=== PATIENT | female | born 1930 | race Caucasian/White ===

== ENCOUNTER 2017-02-26 15:39 | Inpatient (IN) | payer MEDICARE, MEDICAID ==
[~2017-02-26] VITALS: Ht 152.4 cm; Wt 44.3 kg
[~2017-02-26 15:39] MED LIST: ACET-2321 PO; ALLO300T2 PO; ATOR20TA59 PO; CLOP75TA PO; DULO60CA56 PO; FOLI1TAB15 PO; FURO40TA70 PO; LORA0.5T86 PO; MULT-806 PO; PANT40TA PO; PROP40TA7 PO
--- NOTE | 2017-02-26 16:00 | NUR ---
Admit Received patient as direct admit via EMS. Verbal report received by EMS. Patient transferred from cart to bed with total staff assist. Patient daughter present and provides health history. Patient has a history of dementia and is not very cooperative with staff. Patient's daughter informed physician will be in to see patient when available.
--- OUTSIDE RECORDS SUMMARY | 2017-02-26 16:02 | XMS REPORT ---
Author Author GENERATED, SYSTEM Organization Unknown Address Unknown Phone Unavailable Care Team Providers Care Van Loader Name Role Phone MD CORTEZ, [facility] [phone] Reason For Visit Reason for Visit from 07/29/2016 5:54 AM:* Pt Stated Reason for Adm : symptomatic anemia Chief Complaint SYMPTOMATIC ANEMIA, CP Social History Social History from 08/01/2016 11:47 AM:* Tobacco Use? : Never Smoker Social History from 07/29/2016 5:54 AM:* Tobacco Use? : Never Smoker Functional Status Functional Status from 08/01/2016 11:39 AM:* Oriented To : Person,Place,Event Functional Status from 08/01/2016 10:01 AM:* Oriented To : Person,Place,Time Functional Status from 08/01/2016 9:32 AM:* LOC : Alert * Oriented To : Person,Place,Time,Event * Weight Bearing Status : Full * Assist Level : Partial * # Assists : 1 Functional Status from 07/31/2016 9:23 PM:* LOC : Confused * Oriented To : Person * Weight Bearing Status : Full * Assist Level : Partial * # Assists : 1 Functional Status from 07/31/2016 1:00 PM:* # Assists : 1 Functional Status from 07/31/2016 8:04 AM:* LOC : Alert * Oriented To : Person * Weight Bearing Status : Full * Assist Level : Partial * # Assists : 1 Functional Status from 07/31/2016 12:01 AM:* LOC : Confused * Oriented To : Person * Weight Bearing Status : Full * Assist Level : Partial * # Assists : 1 Functional Status from 07/30/2016 11:30 AM:* LOC : Confused * Oriented To : Person,Place * Weight Bearing Status : Full * Assist Level : Partial * # Assists : 1 Functional Status from 07/30/2016 11:00 AM:* LOC : Drowsy Functional Status from 07/30/2016 10:00 AM:* LOC : Drowsy Functional Status from 07/29/2016 7:53 PM:* LOC : Alert * Oriented To : Person,Place,Time,Event * Weight Bearing Status : Full * Assist Level : Partial * # Assists : 1 Functional Status from 07/29/2016 3:30 PM:* # Assists : 1 Functional Status from 07/29/2016 11:40 AM:* # Assists : 1 Functional Status from 07/29/2016 9:11 AM:* LOC : Alert * Oriented To : Person,Place,Event * Weight Bearing Status : Full * Assist Level : Partial * # Assists : 1 Functional Status from 07/29/2016 5:54 AM:* LOC : Alert * Oriented To : Person,Place,Time * Weight Bearing Status : Full * Assist Level : Partial * # Assists : 1 Vital Signs Hospital Vital Signs from 08/01/2016 4:35 PM:* Height : 5/1 ft,in * Temperature : 96.5 F * Pulse : 62 * Respirations : 19 * BP : 135/58 Hospital Vital Signs from 08/01/2016 4:20 PM:* Height : 5/1 ft,in * Temperature : 96.5 F * Pulse : 95 * Respirations : 19 * BP : 180/104 Hospital Vital Signs from 08/01/2016 4:05 PM:* Height : 5/1 ft,in * Temperature : 96.1 F * Pulse : 60 * Respirations : 20 * BP : 206/88 Hospital Vital Signs from 08/01/2016 3:50 PM:* Height : 5/1 ft,in * Temperature : 97.7 F * Pulse : 60 * Respirations : 18 * BP : 120/58 Hospital Vital Signs from 08/01/2016 3:35 PM:* Height : 5/1 ft,in * Temperature : 97.5 F * Pulse : 60 * Respirations : 18 * BP : 119/56 Hospital Vital Signs from 08/01/2016 3:20 PM:* Height : 5/1 ft,in * Temperature : 97.2 F * Pulse : 60 * Respirations : 18 * BP : 115/56 Hospital Vital Signs from 08/01/2016 3:04 PM:* Height : 5/1 ft,in * Temperature : 98.1 F * Pulse : 60 * Respirations : 18 * BP : 133/59 Hospital Vital Signs from 08/01/2016 2:50 PM:* Height : 5/1 ft,in * Temperature : 97.6 F * Pulse : 60 * Respirations : 18 * BP : 135/63 Hospital Vital Signs from 08/01/2016 2:35 PM:* Height : 5/1 ft,in * Temperature : 97.5 F * Pulse : 60 * Respirations : 18 * BP : 118/59 Hospital Vital Signs from 08/01/2016 2:20 PM:* Height : 5/1 ft,in * Temperature : 97.9 F * Pulse : 60 * Respirations : 18 * BP : 131/60 Hospital Vital Signs from 08/01/2016 2:05 PM:* Height : 5/1 ft,in * Temperature : 97.3 F * Pulse : 60 * Respirations : 18 * BP : 122/76 Hospital Vital Signs from 08/01/2016 1:50 PM:* Height : 5/1 ft,in * Temperature : 97.0 F * Pulse : 60 * Respirations : 18 * BP : 135/63 Hospital Vital Signs from 08/01/2016 9:45 AM:* Height : 5/1 ft,in * BP : 135/67 Hospital Vital Signs from 08/01/2016 9:34 AM:* Pulse : 65 Hospital Vital Signs from 08/01/2016 9:32 AM:* Heart Rate : 65 Hospital Vital Signs from 08/01/2016 7:27 AM:* Height : 5/1 ft,in * Temperature : 98.1 F * Pulse : 60 * Respirations : 20 * BP : 139/62 Hospital Vital Signs from 08/01/2016 2:43 AM:* Height : 5/1 ft,in * Temperature : 96.7 F * Pulse : 62 * Respirations : 20 * BP : 128/58 Hospital Vital Signs from 08/01/2016 1:09 AM:* Weight : 52.7/ kg * Height : 5/1 ft,in Hospital Vital Signs from 08/01/2016 12:25 AM:* Height : 5/1 ft,in * Temperature : 96.9 F * Pulse : 60 * Respirations : 20 * BP : 131/58 Hospital Vital Signs from 07/31/2016 9:23 PM:* Heart Rate : 59 Hospital Vital Signs from 07/31/2016 7:08 PM:* Height : 5/1 ft,in * Temperature : 97.7 F * Pulse : 60 * Respirations : 20 * BP : 119/56 Hospital Vital Signs from 07/31/2016 2:43 PM:* Height : 5/1 ft,in * Temperature : 98.5 F * Pulse : 62 * Respirations : 18 * BP : 106/56 Hospital Vital Signs from 07/31/2016 10:39 AM:* Height : 5/1 ft,in * Temperature : 99.0 F * Pulse : 66 * Respirations : 18 * BP : 114/63 Hospital Vital Signs from 07/31/2016 9:17 AM:* Height : 5/1 ft,in Hospital Vital Signs from 07/31/2016 8:30 AM:* Pulse : 68 Hospital Vital Signs from 07/31/2016 7:18 AM:* Height : 5/1 ft,in * Temperature : 95.7 F * Pulse : 66 * Respirations : 18 * BP : 105/59 Hospital Vital Signs from 07/31/2016 2:16 AM:* Weight : 52.6/ kg * Height : 5/1 ft,in * Temperature : 96.6 F * Pulse : 72 * Respirations : 20 * BP : 138/70 Hospital Vital Signs from 07/31/2016 12:01 AM:* Heart Rate : 59 Hospital Vital Signs from 07/30/2016 6:36 PM:* Height : 5/1 ft,in * Temperature : 96.9 F * Pulse : 73 * Respirations : 20 * BP : 149/69 Hospital Vital Signs from 07/30/2016 6:19 PM:* Height : 5/1 ft,in * Pulse : 65 * Respirations : 20 * BP : 151/72 Hospital Vital Signs from 07/30/2016 4:02 PM:* Pulse : 62 [facility] Vital Signs from 07/30/2016 3:51 PM:* Height : 5/1 ft,in * Temperature : 97.4 F * Pulse : 65 * Respirations : 20 * BP : 147/103 [facility] Vital Signs from 07/30/2016 1:55 PM:* Height : 5/1 ft,in * Pulse : 64 * Respirations : 20 * BP : 189/79 [facility] Vital Signs from 07/30/2016 12:55 PM:* Height : 5/1 ft,in * Pulse : 62 * Respirations : 20 * BP : 141/66 [facility] Vital Signs from 07/30/2016 12:25 PM:* Height : 5/1 ft,in * Pulse : 62 * Respirations : 20 * BP : 122/80 Hospital Vital Signs from 07/30/2016 11:55 AM:* Height : 5/1 ft,in * Pulse : 61 * Respirations : 20 * BP : 95/55 Hospital Vital Signs from 07/30/2016 11:40 AM:* Height : 5/1 ft,in * Pulse : 60 * Respirations : 20 * BP : 131/63 Hospital Vital Signs from 07/30/2016 11:30 AM:* Heart Rate : 64 Hospital Vital Signs from 07/30/2016 11:25 AM:* Height : 5/1 ft,in * Pulse : 60 * Respirations : 20 * BP : 147/67 Hospital Vital Signs from 07/30/2016 11:10 AM:* Height : 5/1 ft,in * Temperature : 98.0 F * Pulse : 61 * Respirations : 200 * BP : 166/71 Hospital Vital Signs from 07/30/2016 10:50 AM:* Heart Rate : 59 * Resp Rate : 20 * Systolic BP (mmHg) : 146 * Diastolic BP (mmHg) : 76 * Mean BP (mmHg) : 86 * O2 Saturation (%) : 94 Hospital Vital Signs from 07/30/2016 10:45 AM:* Heart Rate : 62 * Resp Rate : 12 * Systolic BP (mmHg) : 169 * Diastolic BP (mmHg) : 90 * Mean BP (mmHg) : 131 * O2 Saturation (%) : 95 Hospital Vital Signs from 07/30/2016 10:40 AM:* Temp : 98.2 * Heart Rate : 60 * Resp Rate : 25 * Systolic BP (mmHg) : 177 * Diastolic BP (mmHg) : 77 * Mean BP (mmHg) : 124 * O2 Saturation (%) : 95 Hospital Vital Signs from 07/30/2016 10:35 AM:* Heart Rate : 72 * Resp Rate : 18 * Systolic BP (mmHg) : 195 * Diastolic BP (mmHg) : 90 * Mean BP (mmHg) : 135 * O2 Saturation (%) : 94 [facility] Vital Signs from 07/30/2016 10:30 AM:* Heart Rate : 65 * Resp Rate : 19 * Systolic BP (mmHg) : 198 * Diastolic BP (mmHg) : 94 * Mean BP (mmHg) : 159 * O2 Saturation (%) : 93 Hospital Vital Signs from 07/30/2016 10:25 AM:* Heart Rate : 62 * Resp Rate : 21 * Systolic BP (mmHg) : 192 * Diastolic BP (mmHg) : 93 * Mean BP (mmHg) : 129 * O2 Saturation (%) : 96 [facility] Vital Signs from 07/30/2016 10:20 AM:* Temp : 98.1 * Heart Rate : 59 * Resp Rate : 22 * Systolic BP (mmHg) : 185 * Diastolic BP (mmHg) : 91 * Mean BP (mmHg) : 119 * O2 Saturation (%) : 96 Hospital Vital Signs from 07/30/2016 10:15 AM:* Heart Rate : 62 * Resp Rate : 17 * Systolic BP (mmHg) : 179 * Diastolic BP (mmHg) : 80 * Mean BP (mmHg) : 121 * O2 Saturation (%) : 98 [facility] Vital Signs from 07/30/2016 10:10 AM:* Heart Rate : 59 * Resp Rate : 22 * Systolic BP (mmHg) : 133 * Diastolic BP (mmHg) : 66 * Mean BP (mmHg) : 92 * O2 Saturation (%) : 99 [facility] Vital Signs from 07/30/2016 10:05 AM:* Heart Rate : 59 * Resp Rate : 15 * Systolic BP (mmHg) : 126 * Diastolic BP (mmHg) : 62 * Mean BP (mmHg) : 86 * O2 Saturation (%) : 99 [facility] Vital Signs from 07/30/2016 10:00 AM:* Temp : 99 * Heart Rate : 63 * Resp Rate : 15 * Systolic BP (mmHg) : 125 * Diastolic BP (mmHg) : 61 * Mean BP (mmHg) : 87 * O2 Saturation (%) : 99 [facility] Vital Signs from 07/30/2016 7:05 AM:* Height : 5/1 ft,in * Temperature : 98.2 F * Pulse : 60 * Respirations : 20 * BP : 183/82 Hospital Vital Signs from 07/30/2016 3:32 AM:* Weight : 53.0/ kg * Height : 5/1 ft,in * Temperature : 97.8 F * Pulse : 62 * Respirations : 20 * BP : 172/76 [facility] Vital Signs from 07/29/2016 11:11 PM:* Height : 5/1 ft,in * Temperature : 99.0 F * Pulse : 60 * Respirations : 20 * BP : 156/67 Hospital Vital Signs from 07/29/2016 7:23 PM:* Height : 5/1 ft,in * Temperature : 98.1 F * Pulse : 63 * Respirations : 20 * BP : 140/58 [facility] Vital Signs from 07/29/2016 2:30 PM:* Height : 5/1 ft,in * Temperature : 96.7 F * Pulse : 60 * Respirations : 20 * BP : 154/67 [facility] Vital Signs from 07/29/2016 1:40 PM:* Height : 5/1 ft,in * Temperature : 98.0 F * Pulse : 60 * Respirations : 20 * BP : 159/70 [facility] Vital Signs from 07/29/2016 12:40 PM:* Height : 5/1 ft,in * Temperature : 98.9 F * Pulse : 66 * Respirations : 20 * BP : 130/60 [facility] Vital Signs from 07/29/2016 11:40 AM:* Height : 5/1 ft,in * Temperature : 97.1 F * Pulse : 60 * Respirations : 20 * BP : 184/82 [facility] Vital Signs from 07/29/2016 11:20 AM:* Height : 5/1 ft,in * Temperature : 96.8 F * Pulse : 60 * Respirations : 20 * BP : 177/77 Hospital Vital Signs from 07/29/2016 11:06 AM:* Height : 5/1 ft,in * Temperature : 97.8 F * Pulse : 60 * Respirations : 20 * BP : 192/84 Hospital Vital Signs from 07/29/2016 9:30 AM:* Height : 5/1 ft,in * Temperature : 96.9 F * Pulse : 60 * Respirations : 20 * BP : 186/96 [facility] Vital Signs from 07/29/2016 9:21 AM:* Height : 5/1 ft,in Hospital Vital Signs from 07/29/2016 9:11 AM:* Pulse : 65 Hospital Vital Signs from 07/29/2016 8:40 AM:* Height : 5/1 ft,in * Temperature : 97.3 F * Pulse : 60 * Respirations : 20 * BP : 174/107 [facility] Vital Signs from 07/29/2016 7:40 AM:* Height : 5/1 ft,in * Temperature : 97.9 F * Pulse : 61 * Respirations : 20 * BP : 171/73 [facility] Vital Signs from 07/29/2016 7:18 AM:* Height : 5/1 ft,in * Temperature : 97.9 F * Pulse : 68 * Respirations : 20 * BP : 134/63 Hospital Vital Signs from 07/29/2016 7:13 AM:* Pulse : 60 Hospital Vital Signs from 07/29/2016 6:38 AM:* Height : 5/1 ft,in * Temperature : 97.9 F * Pulse : 60 * Respirations : 18 * BP : 171/73 [facility] Vital Signs from 07/29/2016 6:25 AM:* Height : 5/1 ft,in * Temperature : 98.0 F * Pulse : 60 * Respirations : 18 * BP : 174/72 Hospital Vital Signs from 07/29/2016 6:03 AM:* Height : 5/1 ft,in * Temperature : 97.4 F * Pulse : 55 * Respirations : 18 * BP : 206/82 Hospital Vital Signs from 07/29/2016 5:54 AM:* Weight : 54.5/ kg * Height : 5/1 ft,in Results Chemistry from 08/01/2016 8:42 AMSODIUM 147 MMOL/L H (136-145 MMOL/L) POTASSIUM 4.5 MMOL/L (3.5-5.1 MMOL/L) CHLORIDE 108 MMOL/L H (98-107 MMOL/L) TCO2 36.1 MMOL/L H (21.0-32.0 MMOL/L) *ANION GAP 2.9 MMOL/L L (8.0-16.0 MMOL/L) BUN 26 MG/DL H (7-18 MG/DL) CREATININE 1.23 MG/DL H (0.55-1.02 MG/DL) *BUN/CREATININE RATIO 21.1 H (9.1-17.0 ) GLUCOSE 106 MG/DL H (65-99 MG/DL) *GFR EST NON AFR [place] 40 ML/MIN *GFR EST AFR AMER 46 ML/MIN CALCIUM 8.4 MG/DL L (8.5-10.1 MG/DL) ALBUMIN 2.6 GM/DL L (3.4-5.0 GM/DL) MAGNESIUM 1.5 MG/DL L (1.8-2.4 MG/DL) PHOSPHORUS 3.2 MG/DL (2.6-4.7 MG/DL) Hematology from 08/01/2016 8:42 AMWBC 12.1 X10e3/UL H (3.6-11.2 X10e3/UL) WBC CORRECTED 11.3 X10e3/UL H (3.6-11.2 X10e3/UL) RBC 3.13 X10e6/UL L (3.63-4.92 X10e6/UL) HEMOGLOBIN 9.6 G/DL L (11.0-14.3 G/DL) HEMATOCRIT 30.8 % L (31.2-41.9 %) *MCV 98.4 FL H (79.0-98.0 FL) *MCH 30.6 PG (27.0-33.0 PG) *MCHC 31.1 G/DL L (32.0-36.0 G/DL) *RDW 25.9 % H (12.3-17.0 %) *RDWSD 84.4 H (37.1-47.8 ) PLATELET 153 X10e3/UL L (159-386 X10e3/UL) *MPV 10.7 FL H (7.4-10.4 FL) *MANUAL DIFF PERFORMED SEGS 83.0 % *BANDS 3.0 % *LYMPHOCYTES 7.0 % *MONOCYTES 3.0 % *EOSINOPHILS 4.0 % *BASOPHILS 0.0 % *ABSOLUTE NEUTROPHILS 10.41 X10e3/UL H (1.80-7.80 X10e3/UL) *ABSOLUTE LYMPHOCYTES 0.85 X10e3/UL L (1.00-3.00 X10e3/UL) *ABSOLUTE MONOCYTES 0.36 X10e3/UL (0.30-1.00 X10e3/UL) *ABSOLUTE EOSINOPHILS 0.48 X10e3/UL (0.00-0.50 X10e3/UL) *ABSOLUTE BASOPHILS 0.00 X10e3/UL (0.00-0.20 X10e3/UL) *NUCLEATED RBC MANUAL 22.0 /100 WBC H (0.0-1.0 /100 WBC) *POLYCHROMASIA 3+ *HYPOCHROMASIA 1+ ANISOCYTOSIS 4+ *MACROCYTIC 1+ STOMATOCYTES 3+ BASOPHILIC STIPPLING 2+ MITCHELL JOLLY BODIES 1+ PAPPENHEIMER BODIES 2+ Problems Encounter Diagnosis * Chest Pain Status:Active. * Chronic Kidney Disease, Stage 3 Status:Active. * Chronic Obstructive Lung Disease Status:Active. * Diastolic Heart Failure Status:Active. * Fall Risk Status:Active. * Hypertensive Disorder Status:Active. * Macrocytic Anemia Status:Active. * Mobility Impairment Status:Active. Additional Problems * Acute Pain Comment:Problem resolved by [facility] upon Discharge, Status :Resolved. * Anemia Comment:Problem resolved by [facility] upon Discharge, Status: Resolved. Encounters Encounter Diagnosis * Chest Pain Status:Active. * Chronic Kidney Disease, Stage 3 Status:Active. * Chronic Obstructive Lung Disease Status:Active. * Diastolic Heart Failure Status:Active. * Fall Risk Status:Active. * Hypertensive Disorder Status:Active. * Macrocytic Anemia Status:Active. * Mobility Impairment Status:Active. Plan of Care Follow-up Appointments from 08/01/2016 11:47 AM:* #1 Office appointment: : Dr. Lennon - CBC and Renal panel at 1330 * #1 Date/Time : 08/18/2016 2:30 PM * Address # 1 : [facility]: [address], [place]- or Treatment Plan from 08/01/2016 10:25 AM:* Care Management Note : SW spoke with patient's daughter Alla regarding possible discharge for today. Daughter aware that patient does not meet criteria to admit to [facility] under Medicare and stated that patient does not have funds for private pay. Daughter stated they will figure something out as a family. Plan will be for patient to admit to [facility] on . No other needs or concerns. Patient is at this time a high risk for hospital readmit. Treatment Plan from 07/31/2016 2:17 PM:* Care Management Note : Patients Hgb did drop from yesterday to 9.7. Dr. Toro was restarting Plavix today as well. Discussing case with Dr. Toro this am, and he is concerned with patient being discharged today d/t multiple episodes of anemia, just being cauterized, and restarting Plavix. Dr. Toro will monitor today for bleeding with Plavix being restarted. Patient was changed to inpatient this am at [address] Crandall for further monitoring. Order was placed this afternoon for inpatient from am order. Potassium was noted to be low, received a dose of PO potassium, and started on PO mag for low levels. Na 147, K 3.3, BUN 21, Creat 0.99, Alb 2.5, Mg 1.4, WBC 16.6, Hgb 9.7 99.0, 66, 18, 114/63, 96% 2L NC Treatment Plan from 07/31/2016 10:15 AM:* Care Management Note : SW spoke with patient and her daughter Alla in the room regarding possible need for assistance at discharge. Both agree that patient will need some kind of help. Patient stated that she would not be able to afford NH costs since at this time it would be private pay due to not having 3 midnights inpatient. Daughter agreed that finances were a concern, but also stated they would do what they needed to make sure patient was safe. There was also a discussion regarding patient staying with someone or having family stay with her. Daughter again stated that they work, but would see what they needed to do. Patient and daughter plan to speak and let SW know plan tomorrow. Daughter then spoke privately with SW that patient was scheduled to move into [facility] on 1 week from today. Daughter was hoping that maybe patient would qualify for Rehab here at hospital and be able to stay there until admit to [facility]. Daughter stated that patient was fairly confused and "seeing" family members and friends prior to hospital stay. Contact information left in patient's room , SW will continue to assist as needed. Treatment Plan from 07/30/2016 2:54 PM:* Care Management Note : CXR showed Improving mild CHF. An EGD was completed today. 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 Some of them were actively bleeding. These were treated with multiple applications of bipolar electrocautery with cessation of bleeding." Nephrology increased Lisinopril to 40 mg. Labs will be checked in the am, and anticipate a discharge in the am if patient remains stable. Patient remains in outpatient observation, and CM will continue to follow. WBC 17.7, Hgb 10.1, Alb 2.7, Na 146, BUN 22, Creat 1.02 98.2, 60, 20, 183/82, 98% 2L NC Treatment Plan from 07/29/2016 1:34 PM:* Care Management Note : Patient was admitted as observation d/t substernal chest pain associated with dyspnea. Labs were checked and Hgb was noted at 6.7. CXR showed mild CHF. Patient does wear 2L NC at home. GI and nephro were consulted. Patient has been seeing consults as an outpatient for anemia. A unit of blood was administered, RT treatments were started, received a dose of IV Lasix, a dose of Aranesp, and started back on home iron. GI has scheduled patient for a EGD in the am. Discussed case with Dr. Toro, and at this time we will leave patient in observation. Patient may be discharge in am if labs remain stable and EGD clear. CM will continue to follow. BUN 23, Creat 0.89, Alb 2.7, BNP 1637, WBC 12.7, Hgb 8.1 97.9, 68, 20, 134/63, 97% 2L NC Procedures * Completed Esophagogastroduodenoscopy with control of bleeding, by MD [facility], on 07/30/2016 9:21 AM * Completed Procedure Code: [id number] Procedure Name: not valued, on 07/21/2016 12 :00 AM * Completed Procedure Code: 77472 Procedure Name: not valued, on 07/21/2016 12: 00 AM * Completed Procedure Code: 31114 Procedure Name: not valued, on 07/21/2016 12: 00 AM * Completed Procedure Code: 16606O9 Procedure Name: not valued, on 06/21/2016 12 :00 AM * Completed Procedure Code: 00.00 Procedure Name: not valued, on 05/16/2015 12: 00 AM * Completed Procedure Code: 00.00 Procedure Name: not valued, on 04/18/2015 12: 00 AM * Completed Procedure Code: 00.00 Procedure Name: not valued, on 03/21/2015 12: 00 AM * Completed Procedure Code: 00.00 Procedure Name: not valued, on 01/24/2015 12: 00 AM * Completed Procedure Code: 00.00 Procedure Name: not valued, on 12/25/2014 12: 00 AM * Completed Procedure Code: 99.14 Procedure Name: not valued, on 01/31/2014 12: 00 AM * Completed , on 12/31/2013 12:00 AM * Completed , on 12/14/2013 12:00 AM * Completed , on 11/09/2013 12:00 AM * Completed , on 10/05/2013 12:00 AM * Completed , on 09/07/2013 12:00 AM * Completed , on 07/27/2013 12:00 AM * Completed , on 06/16/2013 12:00 AM * Completed , on 05/03/2013 12:00 AM * Completed , on 03/22/2013 12:00 AM * Completed , on 02/01/2013 12:00 AM * Completed , on 12/27/2012 12:00 AM * Completed , on 11/09/2012 12:00 AM * Completed , on 10/12/2012 12:00 AM * Completed , on 09/06/2012 12:00 AM * Completed , on 08/06/2012 12:00 AM * Completed , on 06/30/2012 12:00 AM * Completed , on 06/07/2012 12:00 AM * Completed , on 06/07/2012 12:00 AM * Completed , on 05/18/2012 12:00 AM * Completed , on 04/06/2012 12:00 AM * Completed , on 02/19/2012 12:00 AM * Completed , on 01/08/2012 12:00 AM * Completed , on 11/20/2011 12:00 AM * Completed , on 09/24/2011 12:00 AM * Completed , on 08/06/2011 12:00 AM * Completed , on 06/24/2011 12:00 AM * Completed , on 05/20/2011 12:00 AM * Completed , on 04/30/2011 12:00 AM * Completed , on 04/30/2011 12:00 AM * Completed , on 04/30/2011 12:00 AM * Completed , on 04/30/2011 12:00 AM * Completed , on 03/17/2011 12:00 AM * Completed , on 02/03/2011 12:00 AM * Completed , on 12/23/2010 12:00 AM * Completed , on 11/11/2010 12:00 AM * Completed , on 09/24/2010 12:00 AM * Completed , on 07/22/2010 12:00 AM * Completed , on 05/27/2010 12:00 AM * Completed , on 04/01/2010 12:00 AM * Completed , on 02/18/2010 12:00 AM * Completed , on 01/07/2010 12:00 AM * Completed , on 11/30/2009 12:00 AM * Completed , on 10/08/2009 12:00 AM * Completed , on 08/31/2009 12:00 AM * Completed , on 08/06/2009 12:00 AM * Completed , on 07/10/2009 12:00 AM * Completed , on 06/11/2009 12:00 AM * Completed , on 03/15/2009 12:00 AM * Completed , on 02/12/2009 12:00 AM Immunizations No immunizations administered or ordered. Hospital Course Hospital Discharge Instructions How to care for yourself at home from 08/01/2016 11:47 AM:* Discharge Activity : Activity as tolerated,May Shower * Discharge Diet : Modification as given by physician * Discharge Diet: : No added salt * Call your doctor if: : Fever over 101 F or severe chills,Chest pain or other unexplained symptoms,Tingling or numbness develops,A sudden increase or decrease in weight,You have persistent or worsening symptoms,If you have Heart Failure and you gain 3 pounds within 1 week or your symptoms worsen. (Weigh at home tomorrow morning) * Specific Discharge Teaching Instructions provided: : Yes * Discharge on Warfarin : No Allergies, Adverse Reactions, Alerts * cefuroxine causes Unknown. * Ceftin causes Unknown. * Latex Allergy has not been assessed. * IV Contrast Allergy has not been assessed. * No Known Food Allergies. Medication It is the responsibility of the patient or patient mortician supplies sales representative to confirm the list of medications with either the patient's personal care provider or the patient's follow-up care provider to ensure the patient has an appropriate list of medications to take at home. Discharge medications New medications* pantoprazole (ProTONIX) 40 mg tablet,delayed release (DR/EC), Ordered By: EMILI TORO MD Directions: 1 tablet oral twice a day every morning and at bedtime Additional Instructions: 0700 AND 1600 * ondansetron (ZOFRAN ODT) 4 mg tablet,disintegrating, Ordered By: EMILI TORO MD Directions: 1 tablet oral every six hours PRN nausea or vomiting Continued medications* mirtazapine (Remeron) 45 mg Tablet, Ordered By: EMILI TORO MD Directions: 0.5 tablet oral daily every evening * furosemide (LaSIX) 40 mg Tablet, Ordered By: EMILI TORO MD Directions: 1 tablet oral daily * potassium chloride (Klor-Con 10) 10 mEq Tablet Extended Release, Ordered By: EMILI TORO MD Directions: 2 tablet oral daily * Multivitamin 1tab daily last dose: 07/20/ AM * ropinirole 2 mg Tablet, Ordered By: EMILI TORO MD Directions: 1 tablet oral daily at bedtime * DULoxetine (Cymbalta) 60 mg capsule,delayed release(DR/EC), Ordered By: EMILI TORO MD Directions: 1 capsule oral daily * lisinopril 20 mg Tablet, Ordered By: EMILI TORO MD Directions: 1 tablet oral daily * ferrous sulfate 325 mg (65 mg iron) Tablet, Ordered By: EMILI TORO MD Directions: 1 tablet oral daily with or after food * allopurinol 300 mg Tablet, Ordered By: EMILI TORO MD Directions: 1 tablet oral daily * LORazepam 0.5 mg Tablet, Ordered By: EMILI TORO MD Directions: up to 3 tabs per day oral three times a day PRN anxiety * propranolol 40 mg Tablet, Ordered By: EMILI TORO MD Directions: 1 1/2 tabs oral twice a day * acyclovir 400 mg Tablet, Ordered By: EMILI TORO MD Directions: 1 tablet oral twice a day * acetaminophen (Tylenol Extra Strength) 500 mg Tablet, Ordered By: EMILI TORO MD Directions: 2 tablet oral every eight hours PRN pain * arformoterol (Brovana) 15 mcg/2 mL Solution for Nebulization, Ordered By: EMILI TORO MD Directions: 2 mL by inhalation daily * alendronate (FOSAmax) 70 mg Tablet, Ordered By: EMILI TORO MD Directions: 1 tablet oral every Thursday * clopidogrel (Plavix) 75 mg Tablet, Ordered By: EMILI TORO MD Directions: 1 tablet oral daily every evening * foLIC Acid 1 mg Tablet, Ordered By: EMILI TORO MD Directions: 1 tablet oral daily every morning * atorvastatin 20 mg Tablet, Ordered By: EMILI TORO MD Directions: 1 tablet oral daily at bedtime * digoxin 0.125mg Tablet, Ordered By: EMILI TORO MD Directions: 1 tablet oral daily Stopped medications* None
--- OUTSIDE RECORDS SUMMARY | 2017-02-26 16:04 | XMS REPORT | Summary of Care ---
Author Author Carito Meng M.D. Unknown Address Unknown Phone Unavailable Care Team Providers Care Inseam Trimmer Name Role Phone Cece Streeter M.D. Unavailable Unavailable Chapito Muro Unavailable Unavailable Henry Mendoza M.D. Unavailable Unavailable Abdiaziz Meng M.D. Unavailable Unavailable Sony Muro Unavailable Unavailable Unavailable Unavailable Functional Status Name Dates Details Functional status health issues are not documented Status: Name Dates Details Cognitive status health issues are not documented Status: Problems Name Dates Details Anxiety (300.00, F41.9) Status: Active Gout (274.9, M10.9) Status: Active Depression (311, F32.9) Status: Active History of Aortic Valve Replacement Status: Active Follow-up visit for aortic valve replacement with bioprosthetic valve (V67.09, Z09) Status: Active Chronic pain of both shoulders (719.41, M25.512) Status: Active Postmenopausal (V49.81, Z78.0) Status: Active Screening (V82.9, Z13.9) Status: Active Rotator cuff syndrome of left shoulder and allied disorders (726.10, M75.102) Status: Active Anemia, due to inadequate iron intake (280.1, D50.8) Status: Active Hip pain, acute, right (719.45, M25.551) Status: Active Non-Hodgkin's lymphoma (202.80, C85.90) Status: Active 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, Z95.810) Status: Active Asthma (493.90, J45.909) Status: Active History of aortic valve replacement with bioprosthetic valve (V42.2, Z95.4) Status: Active Rotator cuff impingement syndrome of right shoulder (726.10, M75.41) Status: Active 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, 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, 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 Osteoporosis (733.00, M81.0) Status: Active Hyperlipidemia (272.4, E78.5) Status: Active Leukocytosis (288.60, D72.829) Status: Active Dehydration, mild (276.51, E86.0) Status: Active Elevated brain natriuretic peptide (BNP) level (790.99, R79.89) Status: Active Acute right lower quadrant pain (789.03, R10.31) Status: Active Localized edema (782.3, R60.0) Status: Active Hyperkalemia (276.7, E87.5) Status: Active Mixed incontinence (788.33, N39.46) Status: Active Peripheral neuropathy (356.9, G62.9) Status: Active Seasonal allergies (477.9, J30.2) Status: Active Generalized edema (782.3, R60.1) Status: Active Iron deficiency anemia (280.9, D50.9) Status: Active Encounter for screening colonoscopy (V76.51, Z12.11) Status: Active Urinary symptom or sign (788.99, R39.9) Status: Active Hypercholesteremia (272.0, E78.00) Status: Active Melena (578.1, K92.1) Status: Active Flu vaccine need (V04.81, Z23) Status: Active Chronic obstructive pulmonary disease (496, J44.9) Status: Active Dyspnea on exertion (786.09, R06.09) Status: Active Hypoxemia (799.02, R09.02) Status: Active Hypertension (401.9, I10) Status: Active Shoulder pain, left (719.41, M25.512) Status: Active Rotator cuff syndrome, left (726.10, M75.102) Status: Active Shoulder pain, right (719.41, M25.511) Status: Active Rotator cuff syndrome, right (726.10, M75.101) Status: Active 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, N18.9 ) Status: Active Shortness of breath (786.05, R06.02) Status: Active Congestive heart failure (428.0, I50.9) Status: Active Urinary tract infection (599.0, N39.0) Status: Active Coronary arteriosclerosis (414.00, I25.10) Status: Active Hypothyroidism (244.9, E03.9) Status: Active Fatigue (780.79, R53.83) Status: Active Nausea (787.02, R11.0) Status: Active SOB (shortness of breath) (786.05, R06.02) Status: Active Pallor (782.61, R23.1) Status: Active 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, 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 CKD (chronic kidney disease) stage 4, GFR 15-29 ml/min (585.4, N18.4) Status: Active Dysuria (788.1, R30.0) Status: Active Abdominal pain (789.00, R10.9) Status: Active Essential hypertension (401.9, I10) Status: Active 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 * Start 05-Jul-2013 Active Mirtazapine 45 MG Oral Tablet TAKE 1/2 TABLET DAILY * Refills: 0 Stefan Streeter M.D. * Start 10-Oct-2013 Active Ventolin HFA 108 (90 Base) MCG/ACT Inhalation Aerosol Solution 2 puffs every 6 hours as needed * Refills: 0 * Start 15-Aug-2014 Active MiraLax Oral Powder MIX 1 CAPFUL IN 8 OUNCES OF WATER AND DRINK DAILY DIRECTED. * Quantity: 1 Refills: 6 * Start 15-Aug-2014 Active Ipratropium-Albuterol 0.5-2.5 (3) MG/3ML Inhalation Solution INHALE 1 VIAL Daily (dx:J44.9) * Quantity: 90 Refills: 11 Stefan Streeter M.D. * Start 06-Dec-2012 Active Brovana 15 MCG/2ML Inhalation Nebulization Solution USE VIA NEBULIZER TWO TIMES DAILY (dx:J44.9) * Quantity: 120 Refills: 11 Ferdinand HammondsStefan Cece * Start 23-Nov-2012 Active Budesonide 0.5 MG/2ML Inhalation Suspension USE 1 UNIT DOSE VIA NEBULIZER TWO TIMES A DAY (dx:J44.9) * Quantity: 120 Refills: 11 Ferdinand HammondsStefan Cece * Start 01-Nov-2015 Active BusPIRone HCl - 7.5 MG Oral Tablet TAKE ONE TAB BY MOUT TWICE DAILY * Quantity: 60 Refills: 0 Chapito Muro * Start Active Furosemide 40 MG Oral Tablet Take one tablet in the morning. * Quantity: 30 Refills: 5 Chapito Muro * Start 07-Mar-2015 Active Ondansetron 4 MG Oral Tablet Dispersible DISSOLVE ONE TABLET BY MOUTH EVERY 6 HOURS NEEDED FOR NAUSEA * Quantity: 30 Refills: 0 Chapito Muro * Start 25-Jun-2016 Active Plavix 75 MG Oral Tablet TAKE 1 TABLET DAILY. * Refills: 0 Chapito Muro * Start 09-Jul-2016 Active LORazepam 0.5 MG Oral Tablet TAKE 1 TABLET TWICE DAILY. * Quantity: 60 Refills: 1 Chapito Muro * Start 15-Aug-2014 Active Levothyroxine Sodium 25 MCG Oral Tablet Take 1 tablet by mouth every morning * Quantity: 30 Refills: 2 Chapito Muro * Start 30-Dec-2016 Active Propranolol HCl - 40 MG Oral Tablet TAKE 1 AND 1/2 TABLET TABLET BY MOUTH TWICE A DAY * Quantity: 90 Refills: 2 Chapito Muro * Start 30-Dec-2016 Active Aspirin EC Low Dose 81 MG Oral Tablet Delayed Release TAKE 1 TABLET BY MOUTH DAILY * Quantity: 30 Refills: 0 Chapito Muro * Start 30-Dec-2016 Active Mapap 325 MG Oral Tablet TAKE 2 TABLETS BY MOUTH EVERY MORNING AT 0600 FOR SHOULDER PAIN * Quantity: 60 Refills: 0 Chapito Muro * Start 30-Dec-2016 Active Potassium Chloride Summer ER 10 MEQ Oral Tablet Extended Release take 2 tabs daily * Quantity: 90 Refills: 3 Chapito Muro * Start 19-Jan-2014 Active Atorvastatin Calcium 20 MG Oral Tablet Take 1 tablet by mouth at bedtime * Quantity: 30 Refills: 0 Chapito Muro * Start 16-Jan-2017 Active Folic Acid 1 MG Oral Tablet Take 1 tablet by mouth every morning * Quantity: 30 Refills: 0 Chapito Muro * Start 16-Jan-2017 Active DULoxetine HCl - 60 MG Oral Capsule Delayed Release Particles take 1 capsule by mouth daily * Quantity: 30 Refills: 2 Chapito Muro * Start 16-Jan-2017 Active Clopidogrel Bisulfate 75 MG Oral Tablet TAKE 1 TABLET BY MOUTH EVERY EVENING * Quantity: 30 Refills: 1 Chapito Muro * Start 16-Jan-2017 Active Pantoprazole Sodium 40 MG Oral Tablet Delayed Release TAKE 1 TABLET BY MOUTH TWICE A DAY * Quantity: 60 Refills: 0 Chapito Muro * Start 16-Jan-2017 Active Digoxin 125 MCG Oral Tablet TAKE 1 TABLET BY MOUTH DAILY * Quantity: 30 Refills: 1 Chapito Muro * Start 16-Jan-2017 Active Allopurinol 300 MG Oral Tablet TAKE 1 TABLET BY MOUTH DAILY * Quantity: 30 Refills: 1 Chapito Muro * Start 16-Jan-2017 Active Doxepin HCl - 10 MG Oral Capsule TAKE 1 CAPSULE AT BEDTIME for itching * Quantity: 1 Refills: 1 Carito Meng M.D. 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, N18.9 ) Status: Active Asthma (493.90, J45.909) Status: Active Chronic obstructive pulmonary disease (496, J44.9) Status: Active Congestive heart failure (428.0, I50.9) Status: Active History of aortic valve replacement with bioprosthetic valve (V42.2, Z95.4) Status: Active Hypercholesteremia (272.0, E78.00) Status: Active Hyperlipidemia (272.4, E78.5) Status: Active Hypertension (401.9, I10) Status: Active Hypothyroidism (244.9, E03.9) Status: Active Non-Hodgkin's lymphoma (202.80, C85.90) Status: Active Osteoporosis (733.00, M81.0) Status: Active 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, Z95.810) Status: Active 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, 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, 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 Rotator cuff impingement syndrome of right shoulder (726.10, M75.41) Status: Active History of Arm Pain Aching Status: Resolved History of Bladder disorder (596.9, N32.9) Status: Resolved History of cardiac pacemaker (V12.50, Z95.0) Status: Resolved History of earache (V12.49, Z86.69) Status: Resolved History of Gastric ulcer (531.90, K25.9) Status: Resolved History of glaucoma (V12.49, Z86.69) Status: Resolved History of headache (V13.89, Z87.898) Status: Resolved History of headache (V13.89, Z87.898) Status: Resolved History of herpes zoster (V12.09, Z86.19) Status: Resolved History of Macular degeneration (362.50, H35.30) Status: Resolved History of nausea (V12.79, Z87.898) Status: Resolved History of Poliomyelitis (V12.02) Status: Resolved History of Pre-operative exam (V72.84, Z01.818) Status: Resolved History of sick sinus syndrome (V12.59, Z86.79) Status: Resolved History of Tingling (782.0, R20.2) Status: Resolved History of vomiting (V13.89, Z87.898) Status: Resolved Procedures Procedure Dates Details History of Splenectomy History of Hysterectomy History of Knee Surgery History of Heart Valve Replacement History of Rotator Cuff Repair History of Gastroscopy With Biopsy Completed: 24-Dec-2010 History of ERCP With Endoscopic Sphincterotomy History of ERCP With Balloon Dilation Of Ampulla/Biliary/Pancr Duct(S) Completed: History of Duodenoscopy With Biopsy Completed: History of Aortic Valve Replacement HEMOGRAM 7305 Ordered: 26-Dec-2016 RENAL PROFILE [id number] Ordered: 26-Dec-2016 Immunization Name Dates Details Influenza Lot #: [id number] on: 02-Aug-2010 Influenza Lot #: [id number] on: 24-Aug-2012 Pneumo (Pneumovax) Lot #: [id number] on: 24-Aug-2012 Fluzone High-Dose 0.5 ML Intramuscular Suspension Prefilled Syringe Lot #: [id number] on: 25-Jul-2015 Tdap (Adacel) Lot #: [id number] on: 05-Nov-2015 Fluzone High-Dose 0.5 ML Intramuscular Suspension Prefilled Syringe Lot #: [id number] on: 02-Sep-2016 Family History Name Dates Details Family history of Epilepsy Status: Active Name Dates Details Family history of Heart Disease (V17.49) Status: Active Family history of Hypertension (V17.49) Status: Active Name Dates Details Family history of Stroke Syndrome (V17.1) Status: Active Name Dates Details Family history of Hypertension (V17.49) Status: Active Family history of Hypertension (V17.49) Status: Active Family history of Anemia (V18.2) Status: Active Name Dates Details Family history of Heart Disease (V17.49) Status: Active Family history of Cancer Status: Active Family history of Stroke Syndrome (V17.1) Status: Active Social History Name Dates Details - Status: Name Dates Details Never smoker Vital Signs Date Test Result Details 07-Feb-2017 13:22 BP Systolic 128 mm[Hg] Status: Comments: Location: ; Position: BP Diastolic 62 mm[Hg] Status: Comments: Location: ; Position: Temperature 98 f Status: Comments: Method: Heart Rate 72 /min Status: Comments: Location: ; Physical Findings 16 Status: Comments: Respiration Weight 94 lb Status: Physical Findings 99 Status: Comments: O2 Saturation Body Mass Index Calculated 16.65 kg/m2 Status: Body Surface Area Calculated 1.4 m2 Status: Results Date Description Value Details 16-Jan-2017 15:18 Urinalysis, Reflex to Microscopic or Culture PRN 8005 pH 5.5 Range: 5.0-7.5 SP GRAVITY 1.015 Range: 1.010-1.030 APPEARANCE CLEAR Range: Clear COLOR YELLOW Range: Straw-Yellow PROTEIN 100 mg/dL (Abnormal) Range: Negative-Trace GLUCOSE NEGATIVE mg/dL Range: Negative KETONE NEGATIVE mg/dL Range: Negative BILIRUB NEGATIVE Range: Negative BLOOD NEGATIVE Range: Negative UROBIL 0.2 EU/dL Range: 0.2-1.0 NITRITE NEGATIVE Range: Negative LEUK NEGATIVE Range: Negative 15:18 Urine Microscopic UMIC WBC 0-2 /HPF Range: 0-5 RBC 0-2 /HPF Range: 0-2 HYAL CAST 3-5 /LPF (Abnormal) Range: 0-2 BACTERIA Trace /HPF Range: Negative-Trace EPITH 0-2 /HPF Range: 0-10 Plan of Care Name Dates Details Planned Observations Planned Goals not documented Planned Encounters Appointment; Provider: Stefan Streeter M.D. On 19-Mar-2017 14:00 Appointment; Provider: Krunal Lennon M.D. On 03-Mar-2017 14:45 Appointment; Provider: Chapito Muro On 11-Feb-2017 15:30 Interventions Provided Medication Changes* Doxepin HCl - 10 MG Oral Capsule - Start Instructions Name Dates Details Instructions not documented Encounters Appointment; Krunal Lennon M.D. Encounter Diagnosis: Problem not documented On 28-Jan-2017 09:00 Appointment; Krunal Lennon M.D. Encounter Diagnosis: Problem not documented On 30-Dec-2016 13:30 Appointment; Krunal Lennon M.D. Encounter Diagnosis: Problem not documented On 26-Dec-2016 09:00 Appointment; Trevor Diaz D.O. Encounter Diagnosis: Problem not documented On 25-Dec-2016 10:25 Appointment; Chapito Muro Encounter Diagnosis: Problem not documented On 02-Dec-2016 11:15 Appointment; Vanessa Sauer A.P.R.N. Encounter Diagnosis: Problem not documented On 19-Nov-2016 13:54 Appointment; Krunal Lennon M.D. Encounter Diagnosis: Problem not documented On 04-Nov-2016 13:45 Appointment; Bruce Saunders M.D. Encounter Diagnosis: Problem not documented On 03-Nov-2016 09:30 Appointment; Chapito Muro Encounter Diagnosis: Problem not documented On 29-Sep-2016 11:45 Appointment; Stefan Streeter M.D. Encounter Diagnosis: Problem not documented On 16-Sep-2016 13:30 Appointment; Ry Maurer M.D. Encounter Diagnosis: Problem not documented On 02-Sep-2016 14:45 Appointment; Krunal Lennon M.D. Encounter Diagnosis: Problem not documented On 02-Sep-2016 14:15 Appointment; Chapito Muro Encounter Diagnosis: Problem not documented On 25-Aug-2016 10:00 Appointment; Krunal Lennon M.D. Encounter Diagnosis: Problem not documented On 18-Aug-2016 14:30 Appointment; Ry Maurer M.D. Encounter Diagnosis: Problem not documented On 23-Jul-2016 08:00 Appointment; Bruce Saunders M.D. Encounter Diagnosis: Problem not documented On 22-Jul-2016 11:15 Appointment; Ry Maurer M.D. Encounter Diagnosis: Problem not documented On 18-Jul-2016 13:15 Appointment; Krunal Lennon M.D. Encounter Diagnosis: Problem not documented On 14-Jul-2016 15:15 Appointment; Chapito Muro Encounter Diagnosis: Problem not documented On 09-Jul-2016 15:45 Appointment; Chapito Muro Encounter Diagnosis: Problem not documented On 13:30 Appointment; Ry Maurer M.D. Encounter Diagnosis: Problem not documented On 14:30 Appointment; Krunal Lnenon M.D. Encounter Diagnosis: Problem not documented On 15:15 Appointment; Ry Maurer M.D. Encounter Diagnosis: Problem not documented On 14:00 Appointment; Chapito Muro Encounter Diagnosis: Problem not documented On 03-Mar-2016 09:15 Appointment; Stuart Blancas M.D. Encounter Diagnosis: Problem not documented On 20-Feb-2016 16:05 Appointment; Chapito Muro Encounter Diagnosis: Problem not documented On 06-Feb-2016 13:15 Appointment; Bruce Saunders M.D. Encounter Diagnosis: Problem not documented On 06-Feb-2016 10:30 Appointment; Stefan Stereter M.D. Encounter Diagnosis: Problem not documented On 31-Jan-2016 13:15 Appointment; Krunal Lennon M.D. Encounter Diagnosis: Problem not documented On 25-Dec-2015 14:00 Appointment; Bruce Saunders M.D. Encounter Diagnosis: Problem not documented On 29-Nov-2015 15:00 Appointment; Bruce Saunders M.D. Encounter Diagnosis: Problem not documented On 13-Nov-2015 10:45 Appointment; Chapito Muro Encounter Diagnosis: Problem not documented On 05-Nov-2015 14:30 Appointment; Stefan Streeter M.D. Encounter Diagnosis: Problem not documented On 01-Nov-2015 14:00 Appointment; Krunal Lennon M.D. Encounter Diagnosis: Problem not documented On 16-Oct-2015 13:30 Appointment; Madiha Dowling Encounter Diagnosis: Problem not documented On 25-Jul-2015 11:05 Appointment; Stefan Streeter M.D. Encounter Diagnosis: Problem not documented On 12-Jun-2015 11:30 Appointment; Krunal Lennon M.D. Encounter Diagnosis: Problem not documented On 13:30 Appointment; Krunal Lennon M.D. Encounter Diagnosis: Problem not documented On 11:30 Appointment; Henry Mendoza M.D. Encounter Diagnosis: Problem not documented On 14:45 Appointment; Stefan Streeter M.D. Encounter Diagnosis: Problem not documented On 07-Mar-2015 13:00
--- OUTSIDE RECORDS SUMMARY | 2017-02-26 16:05 | XMS REPORT | Summary of Care ---
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 Marciano Unavailable Unavailable Saji Hammonds, Krunal Unavailable Unavailable Sony Muro Unavailable Unavailable Unavailable [...] with bioprosthetic valve (V67.09, Z09) Status: Active CKD (chronic kidney disease), stage III (585.3, N18.3) Status: Active Chronic pain of both shoulders (719.41, M25.512) Status: Active Postmenopausal (V49.81, Z78.0) Status: Active Screening (V82.9, Z13.9) Status: Active Rotator cuff syndrome of left shoulder and allied disorders (726.10, M75.102) Status: Active Anemia, due to inadequate iron intake (280.1, D50.8) Status: Active Dyspnea on exertion (786.09, R06.09) Status: Active Shoulder pain, right (719.41, M25.511) Status: Active Rotator cuff syndrome, right (726.10, M75.101) Status: Active Hip pain, acute, right (719.45, M25.551) Status: Active Non-Hodgkin's lymphoma (202.80, C85.90) Status: Active Chronic obstructive pulmonary disease (496, J44.9) Status: Active 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, Z95.810) Status: Active Asthma (493.90, J45.909) Status: Active History of aortic valve replacement with bioprosthetic valve (V42.2, Z95.4) Status: Active CKD (chronic kidney disease), stage IV (585.4, N18.4) Status: Active Rotator cuff impingement syndrome of right shoulder (726.10, M75.41) Status: Active 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, 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, 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 Osteoporosis (733.00, M81.0) Status: Active Hyperlipidemia (272.4, E78.5) Status: Active Hypothyroidism (244.9, E03.9) Status: Active Leukocytosis (288.60, D72.829) Status: Active Dehydration, mild (276.51, E86.0) Status: Active Elevated brain natriuretic peptide (BNP) level (790.99, R79.89) Status: Active Acute right lower quadrant pain (789.03, R10.31) Status: Active Abdominal pain (789.00, R10.9) Status: Active Localized edema (782.3, R60.0) Status: Active Hyperkalemia (276.7, E87.5) Status: Active Mixed incontinence (788.33, N39.46) Status: Active Peripheral neuropathy (356.9, G62.9) Status: Active Hypertension (401.9, I10) Status: Active Seasonal allergies (477.9, J30.2) Status: Active Chronic kidney disease, stage III (moderate) (585.3, N18.3) Status: Active Generalized edema (782.3, R60.1) Status: Active Iron deficiency anemia (280.9, D50.9) Status: Active Encounter for screening colonoscopy (V76.51, Z12.11) Status: Active Shoulder pain, left (719.41, M25.512) Status: Active Rotator cuff syndrome, left (726.10, M75.102) Status: Active Urinary symptom or sign (788.99, R39.9) Status: Active Urinary tract infection (599.0, N39.0) Status: Active CKD (chronic kidney disease) stage 3, GFR 30-59 ml/min (585.3, N18.3) Status: Active 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, N18.9 ) Status: Active Coronary arteriosclerosis (414.00, I25.10) Status: Active Congestive heart failure (428.0, I50.9) Status: Active Anemia (285.9, D64.9) Status: Active Essential hypertension (401.9, I10) Status: Active Hypercholesteremia (272.0, E78.00) Status: Active Nausea (787.02, R11.0) Status: Active Medications Name Dates Details Multi-Day Vitamins TABS I po qd * Start 07-Jun-2009 Active ROPINIRole HCl - 2 MG Oral Tablet TAKE 1 TABLET AT BEDTIME. * Quantity: 90 Refills: 3 Chapito Muro * Start 31-Aug-2009 Active Oxygen 2 LPM 24 HOURS A [...] 1 Refills: 6 * Start 15-Aug-2014 Active Ferrous Sulfate 325 (65 Fe) MG Oral Tablet Delayed Release take 1 tab twice daily * Refills: 0 * Start 15-Aug-2014 Active Folic Acid 1 MG Oral Tablet Take 1 tablet daily * Quantity: 30 Refills: 1 Stefan Streeter M.D. * Start 04-Dec-2014 Active Ipratropium-Albuterol 0.5-2.5 (3) MG/3ML Inhalation Solution INHALE 1 VIAL Daily (dx:J44.9) * Quantity: 90 Refills: 11 Stefan Streeter M.D. * Start 06-Dec-2012 Active Brovana 15 MCG/2ML Inhalation Nebulization Solution USE VIA NEBULIZER TWO TIMES DAILY (dx:J44.9) * Quantity: 120 Refills: 11 Stefan Streeter M.D. * Start 23-Nov-2012 Active Potassium Chloride Summer ER 10 MEQ Oral Tablet Extended Release take 1 tab daily * Quantity: 90 Refills: 3 Chapito Muro * Start 19-Jan-2014 Active Alendronate Sodium 70 MG Oral Tablet TAKE 1 TABLET WEEKLY BY MOUTH IN THE MORNING ON AN EMPTY STOMACH WITH 8 OZ. OF WATER, NOTHING ELSE FOR 30 MINUTES. * Quantity: 12 Refills: 3 Chapito Muro * Start 06-Feb-2016 Active Budesonide 0.5 MG/2ML Inhalation Suspension USE 1 UNIT DOSE VIA NEBULIZER TWO TIMES A DAY (dx:J44.9) * Quantity: 120 Refills: 11 Stefan Streeter M.D. * Start 01-Nov-2015 Active Pantoprazole Sodium 40 MG Oral Tablet Delayed Release take 1 tab daily * Quantity: 30 Refills: 5 Chapito Muro * Start 15-Aug-2014 Active BusPIRone HCl - 7.5 MG Oral Tablet TAKE ONE TAB BY MOUT TWICE DAILY * Quantity: 60 Refills: 0 Chapito Muro * Start Active Furosemide 40 MG Oral Tablet Take one tablet in the morning. * Quantity: 30 Refills: 5 Chapito Muro * Start 07-Mar-2015 Active ROPINIRole HCl - 1 MG Oral Tablet TAKE 1/2 TABLET AT BEDTIME FOR 1 WEEK THEN INCREASE TO 1 TAB . TAKE IN ADDITION TO ROPINIROLE 2 MG TAB * Quantity: 90 Refills: 0 Chapito Muro * Start Active LORazepam 0.5 MG Oral Tablet TAKE 1 TABLET 3 TIMES DAILY NEEDED. MAY FILL ON OR AFTER 05-09-16 * Quantity: 90 Refills: 0 Chapito Muro * Start 15-Aug-2014 Active Ondansetron 4 MG Oral Tablet Dispersible DISSOLVE ONE TABLET BY MOUTH EVERY 6 HOURS NEEDED FOR NAUSEA * Quantity: 30 Refills: 0 Chapito Muro * Start 25-Jun-2016 Active Propranolol HCl - 40 MG Oral Tablet take 11/2 tablets twice daily * Quantity: 90 Refills: 1 Chapito Muro * Start 07-Mar-2015 Active Allopurinol 300 MG Oral Tablet TAKE 1 TABLET DAILY. * Quantity: 30 Refills: 3 Chapito Muro * Start 15-Aug-2014 Active Plavix 75 MG Oral Tablet TAKE 1 TABLET DAILY. * Refills: 0 Chapito Muro * Start 09-Jul-2016 Active Fluticasone Propionate 50 MCG/ACT Nasal Suspension USE 1 SPRAY IN EACH NOSTRIL ONCE DAILY NEEDED FOR ALLERGY SYMPTOMS * Quantity: 1 Refills: 3 Chapito Muro * Start 09-Jul-2016 Active Feraheme 510 MG/17ML Intravenous Solution Give two doses IV one week apart * Quantity: 34 Refills: 0 Krunal Lennon M.D. * Start 15-Jul-2016 Active Digoxin 125 MCG Oral Tablet Take one tablet by mouth daily * Quantity: 30 Refills: 1 Chapito Muro * Start 09-Jul-2016 Active DULoxetine HCl - 60 MG Oral Capsule Delayed Release Particles TAKE 1 CAPSULE AT BEDTIME. * Quantity: 30 Refills: 5 Chapito Muro * Start 10-Oct-2013 Active Allergies and Adverse Reactions Name Dates Details Ceftin TABS (Allergy) Status: Active Cefuroxime Axetil TABS (Allergy) Status: Active Past Medical History Name Dates Details 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, N18.9 ) Status: Active Asthma (493.90, J45.909) Status: Active Chronic obstructive pulmonary disease (496, J44.9) Status: Active CKD (chronic kidney disease), stage IV (585.4, N18.4) Status: Active Congestive heart failure (428.0, I50.9) [...] degeneration (362.50, H35.30) Status: Resolved History of Poliomyelitis (V12.02) Status: [...] Biopsy Completed: History of Aortic Valve Replacement Procedures not documented Immunization Name Dates Details Influenza Lot #: [id number] on: 02-Aug-2010 Influenza Lot #: [id number] on: 24-Aug-2012 Pneumo (Pneumovax) Lot #: [id number] on: 24-Aug-2012 Fluzone High-Dose 0.5 ML Intramuscular Suspension Prefilled Syringe Lot #: [id number] on: 25-Jul-2015 Tdap (Adacel) Lot #: [id number] on: 05-Nov-2015 Family History Name Dates Details Family history [...] smoker Vital Signs Date Test Result Details 25-Aug-2016 09:59 BP Systolic 122 mm[Hg] Status: Comments: Location: ; Position: BP Diastolic 66 mm[Hg] Status: Comments: Location: ; Position: Heart Rate 70 /min Status: Comments: Location: ; Height 63 in Status: Weight 108.25 lb Status: Physical Findings 98 Status: Comments: O2 Saturation FiO2 flow rate 2 % Status: Body Mass Index Calculated 19.18 kg/m2 Status: Body Surface Area Calculated 1.49 m2 Status: 18-Aug-2016 14:41 BP Systolic 120 mm[Hg] Status: Comments: Location: ; Position: BP Diastolic 78 mm[Hg] Status: Comments: Location: ; Position: Heart Rate 68 /min Status: Comments: Location: ; Weight 109.375 lb Status: Body Mass Index Calculated 19.37 kg/m2 Status: Body Surface Area Calculated 1.5 m2 Status: Results Date Description Value Details 15-Aug-2016 12:06 Urinalysis, Reflex to Microscopic or Culture PRN 8005 pH 7.0 Range: 5.0-7.5 SP GRAVITY <=1.005 (Abnormal) Range: 1.010-1.030 APPEARANCE TURBID (Abnormal) Range: Clear COLOR YELLOW Range: Straw-Yellow PROTEIN 100 mg/dL (Abnormal) Range: Negative-Trace GLUCOSE NEGATIVE mg/dL Range: Negative KETONE NEGATIVE mg/dL Range: Negative BILIRUB NEGATIVE Range: Negative BLOOD MODERATE (Abnormal) Range: Negative UROBIL 0.2 EU/dL Range: 0.2-1.0 NITRITE POSITIVE (Abnormal) Range: Negative Comments: Specimen referred to Reference Lab for Culture----- LEUK LARGE (Abnormal) Range: Negative 12:06 Urine Microscopic UMIC WBC TNTC /HPF (Abnormal) Range: 0-5 Comments: Specimen referred to Reference Lab for Culture----- RBC 11-20 /HPF (Abnormal) Range: 0-2 BACTERIA 3+ /HPF (Abnormal) Range: Negative-Trace Comments: Specimen referred to Reference Lab for Culture----- EPITH 3-5 /HPF Range: 0-10 -Jul-2016 10:59 URINE CULTURE [id number] Comments: [facility] performed at: [facility], [address] [place] [address], [address] [place] [address], Wellness Trainer: Gigi Alberto D.O., MPHQuest Collection Date/Time: [id number] Results Received Date/Time: [id number] Reported Date/Time: FASTING:NOQuest performed at: [facility], [address] [place] [address], [address] [place] [address], Wellness Trainer: Gigi Alberto D.O., [facility] Collection Date/Time: [id number] Results Received Date/Time: [id number] Reported Date/Time: FASTING:NOQuest performed at: [facility], [address] [place] [address], [address] [place] [address], Wellness Trainer: Gigi Alberto D.O., [facility] Collection Date/Time: [id number] Results Received Date/Time: [id number] Reported Date/Time: FASTING:NO CULTURE, URINE, ROUTINE SEE NOTE (Abnormal) Comments: CULTURE, URINE, ROUTINE MICRO NUMBER: [id number] TEST STATUS: FINAL SPECIMEN SOURCE : URINE SPECIMEN QUALITY: ADEQUATE RESULT: Greater than 100,000 CFU/mL of Citrobacter freundii 50,000-100,000 CFU/mL of Klebsiella pneumoniae C.freundii K.pneumoniae INT LUIS ALFREDO INT LUIS ALFREDO AMOX/CLAVULANATE R 8 S <=2 AMPICILLIN * R >=32 AMP/ SULBACTAM * S 4 CEFAZOLIN R >= 64 1 NR <=4 CEFEPIME S <=1 S <=1 CEFTRIAXONE S <=1 S <=1 CIPROFLOXACIN S <=0.25 S <=0.25 ERTAPENEM S <=0.5 S <=0.5 GENTAMICIN S <=1 S <=1 IMIPENEM S <=0.25 S <=0.25 LEVOFLOXACIN S <=0.12 S <=0.12 NITROFURANTOIN S <=16 I 64 PIP/ TAZOBACTAM S <=4 S <=4 TOBRAMYCIN S < =1 S <=1 TRIMETHOPRIM/SULFA S <=20 S <=20S= Susceptible I=Intermediate R=Resistant *=Not TestedNR=Not Reported NN=See Therapy CommentsTHERAPY COMMENTS Note 1: ORAL therapy: A cefazolin LUIS ALFREDO of < 32 predicts susceptibility to the oral agents cefaclor, cefdinir, cefpodoxime, cefprozil, cefuroxime, cephalexin, and loracarbef when used for therapy of uncomplicated UTIs due to E. coli, K. pneumoniae, and P. mirabilis. PARENTERAL therapy: A cefazolin LUIS ALFREDO of > 8 indicates resistance to parenteral cefazolin. An alt----- 13:43 CBC w/ Auto Diff 7150 WBC 11.0 K/uL Range: 4.5-11.0 RBC 2.41 mil/uL (Below low threshold) Range: 3.60-5.00 HGB 7.8 g/dL (Below low threshold) Range: 12.0-16.0 HCT 26.1 % (Below low threshold) Range: 36.0-48.0 MCV 108.7 fL (Above high threshold) Range: 80.0-99.0 MCH 32.6 pg (Above high threshold) Range: 27.3-32.5 MCHC 30.0 % (Below low threshold) Range: 32.0-36.0 RDW 20.0 % (Above high threshold) Range: 11.6-14.8 PLATELETS 232 K/uL Range: 150-400 MPV 8.7 fL Range: 6.0-11.0 %NEUTRO 78.1 % Range: 37.0-80.0 %LYMPHS 13.4 % Range: 13.0-50.0 %MONO 3.0 % Range: 0.0-12.0 %EOS 3.4 % Range: 0.0-7.0 %BASO 0.5 % Range: 0.0-2.5 %HALIMA 1.6 % Range: 0.0-5.0 NEUTRO 8.6 K/uL (Above high threshold) Range: 2.0-6.9 LYMPHS 1.5 K/uL Range: 0.6-3.4 MONOS 0.3 K/uL Range: 0.0-0.9 EOS 0.4 K/uL Range: 0.0-0.7 BASO 0.1 K/uL Range: 0.0-0.2 13:58 RENAL PROFILE 1240 SODIUM 143 mmol/L Range: 133-144 POTASSIUM 4.9 mmol/L Range: 3.5-5.1 CHLORIDE 104 mmol/L Range: 98-110 CARBON DIOXIDE 30.5 mmol/L Range: 23.0-33.0 ANION GAP 9 mmol/L Range: 6-16 BUN 41 mg/dL (Above high threshold) Range: 7-18 Comments: Variance from previous testing noted.----- CREATININE, SERUM 1.75 mg/dL (Above high threshold) Range: 0.55-1.02 EST GFR, 33 ml/min (Below low threshold) Range: >60 EST GFR, NON-AFR ROMANIAN 28 ml/min (Below low threshold) Range: >60 Comments: EST GFR is reported in ml/min per 1.73 m2 of body surface area. ----- BUN:CREATININE RATIO 23 GLUCOSE 145 mg/dL (Above high threshold) Range: 70-100 Comments: Variance from previous testing noted.----- ALBUMIN 3.0 g/dL (Below low threshold) Range: 3.4-5.0 PHOSPHORUS 3.7 mg/dL Range: 2.6-4.7 CALCIUM 8.9 mg/dL Range: 8.5-10.1 25-Aug-2016 10:11 Iron Panel with TIBC 1612 IRON 22 ug/dL (Below low threshold) Range: 50-170 TOTAL IRON BIND. CAPACITY 375 ug/dL Range: 250-450 % IRON SATURATION 6 % (Below low threshold) Range: 20-55 10:11 PHOSPHORUS 1145 PHOSPHORUS 4.6 mg/dL Range: 2.6-4.7 Plan of Care Name Dates Details Planned Observations Planned Goals not documented Planned Encounters Appointment; Provider: Stefan Streeter M.D. On 16-Sep-2016 13:30 Appointment; Provider: Krunal Lennon M.D. On 02-Sep-2016 14:15 Instructions Name Dates Details Instructions not documented [...] Problem not documented On 14:30 Appointment; Krunal Lennon M.D. Encounter Diagnosis: Problem [...] Problem not documented On 06-Feb-2016 10:30 Appointment; Stfean Streeter M.D. Encounter Diagnosis: Problem not documented [...] Diagnosis: Problem not documented On 07-Mar-2015 13:00 Appointment; Krunal Lennon M.D. Encounter Diagnosis: Problem not documented On 06-Feb-2015 15:30 Appointment; Henry Mendoza M.D. Encounter Diagnosis: Problem not documented On 12-Jan-2015 10:45 Appointment; Krunal Lennon M.D. Encounter Diagnosis: Problem not documented On 26-Dec-2014 15:30 Appointment; Stefan Streeter M.D. Encounter Diagnosis: Problem not documented On 04-Dec-2014 16:00 Appointment; Raphael Mcduffie M.D. Encounter Diagnosis: Problem not documented On 07-Nov-2014 13:30
--- OUTSIDE RECORDS SUMMARY | 2017-02-26 16:06 | XMS REPORT | Summary of Care ---
Author Author Bruce Saunders M.D. Unknown Address [address], [place] [id number] Phone Unavailable Care Team Providers Care Tech Writer Name Role Phone Cece Streeter M.D. Unavailable Unavailable Chapito Muro Unavailable Unavailable Reji Hammonds, T. KLinda Unavailable Unavailable Sony Muro PP Unavailable Unavailable Unavailable Functional Status Functional Status Health Issues* Name Dates Details Functional status health issues are not documented Status: Cognitive Status Health Issues* Name Dates Details Cognitive status health issues are not documented Status: Problems Name Dates Details Anxiety (300.00, F41.9) Status: Active Gout (274.9, M10.9) Status: Active Depression (311, F32.9) Status: Active Hypothyroidism (244.9, E03.9) Status: Active History of Aortic Valve Replacement Status: Active Hyperlipidemia (272.4, E78.5) Status: Active Chronic kidney disease, stage III (moderate) (585.3, N18.3) Status: Active Asthma (493.90, J45.909) Status: Active Hypertension (401.9, I10) Status: Active 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, 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) Status: Active History of aortic valve replacement with bioprosthetic valve (V42.2, Z95.4) Status: Active Follow-up visit for aortic valve replacement with bioprosthetic valve (V67.09, Z09) Status: Active Anemia (285.9, D64.9) Status: Active Anemia of renal disease (285.21, D63.1) Status: Active CKD (chronic kidney disease), stage III (585.3, N18.3) Status: Active Essential hypertension (401.9, I10) Status: Active Hypercholesteremia (272.0, E78.0) Status: Active Congestive heart failure (428.0, I50.9) Status: Active CKD (chronic kidney disease), stage IV (585.4, N18.4) Status: Active Non-Hodgkin's lymphoma (202.80, C85.90) Status: Active Chronic pain of both shoulders (719.41, M25.512) Status: Active Postmenopausal (V49.81, Z78.0) Status: Active Screening (V82.9, Z13.9) Status: Active Rotator cuff syndrome of left shoulder and allied disorders (726.10, M75.102) Status: Active Rotator cuff impingement syndrome of right shoulder (726.10, M75.41) Status: Active Anemia, due to inadequate iron intake (280.1, D50.8) Status: Active CKD (chronic kidney disease) stage 3, GFR 30-59 ml/min (585.3, N18.3) Status: Active Generalized edema (782.3, R60.1) Status: Active Chronic obstructive pulmonary disease (496, J44.9) Status: Active Dyspnea on exertion (786.09, R06.09) Status: Active Shoulder pain, left (719.41, M25.512) Status: Active Rotator cuff syndrome, left (726.10, M75.102) Status: Active 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, 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 Shoulder pain, right (719.41, M25.511) Status: Active Primary osteoarthritis of right shoulder (715.11, 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 Rotator cuff syndrome, right (726.10, M75.101) Status: Active Medications Name Dates Details Multi-Day Vitamins Oral Tablet I po qd * Started 07-Jun-2009 ActiveROPINIRole HCl - 1 MG Oral Tablet TAKE ONE TABLET BY MOUTH EVERY NIGHT AT BEDTIME * Quantity: 90 Refills: 0 Chapito Muro * Started 31-Aug-2009 ActiveOxygen 2 LPM 24 HOURS A DAY MAY TITRATE UP FOR DYSPNEA * Refills: 0 * Started ActiveAdult Aspirin EC Low Strength 81 MG Oral Tablet Delayed Release * Refills: 0 Henry Mendoza M.D.* Started 05-Jul-2013 ActiveMirtazapine 45 MG Oral Tablet TAKE 1/2 TABLET DAILY * Refills: 0 Stefan Streeter M.D.* Started 10-Oct-2013 ActiveVentolin HFA 108 (90 Base) MCG/ACT Inhalation Aerosol Solution 2 puffs every 6 hours as needed * Refills: 0 * Started 15-Aug-2014 ActiveAllopurinol 300 MG Oral Tablet TAKE 1 TABLET DAILY. * Refills: 0 * Started 15-Aug-2014 ActiveMiraLax Oral Powder MIX 1 CAPFUL IN 8 OUNCES OF WATER AND DRINK DAILY DIRECTED. * Quantity: 1 Refills: 6 * Started 15-Aug-2014 ActiveFerrous Sulfate 325 (65 Fe) MG Oral Tablet Delayed Release take 1 tab twice daily * Refills: 0 * Started 15-Aug-2014 ActiveFolic Acid 1 MG Oral Tablet Take 1 tablet daily * Quantity: 30 Refills: 1 Stefan Streeter M.D.* Started 04-Dec-2014 ActivePropranolol HCl - 40 MG Oral Tablet take 11/2 tablets twice daily * Refills: 0 Stefan Streeter M.D.* Started 07-Mar-2015 ActiveIpratropium-Albuterol 0.5-2.5 (3) MG/3ML Inhalation Solution INHALE 1 VIAL Daily (dx:J44.9) * Quantity: 90 Refills: 11 Stefan Streeter M.D.* Started 06-Dec-2012 ActiveBrovana 15 MCG/2ML Inhalation Nebulization Solution USE VIA NEBULIZER TWO TIMES DAILY (dx:J44.9) * Quantity: 120 Refills: 11 Stefan Streeter M.D.* Started 23-Nov-2012 ActiveBudesonide 0.5 MG/2ML Inhalation Suspension USE 1 UNIT DOSE VIA NEBULIZER TWO TIMES A DAY (dx:J44.9) * Quantity: 120 Refills: 11 Stefan Streeter M.D.* Started 01-Nov-2015 ActiveDULoxetine HCl - 60 MG Oral Capsule Delayed Release Particles TAKE 1 CAPSULE AT BEDTIME. * Quantity: 30 Refills: 3 Stefan Streeter M.D.* Started 10-Oct-2013 ActivePotassium Chloride Summer ER 10 MEQ Oral Tablet Extended Release take 1 tab daily * Quantity: 90 Refills: 3 Chapito Muro * Started 19-Jan-2014 ActivePantoprazole Sodium 40 MG Oral Tablet Delayed Release take 1 tab daily * Quantity: 30 Refills: 3 Chapito Muro * Started 15-Aug-2014 ActiveAcyclovir 400 MG Oral Tablet TAKE 1 TABLET TWICE DAILY. * Quantity: 60 Refills: 3 Chapito Muro * Started 15-Aug-2014 ActiveFurosemide 40 MG Oral Tablet take one tablet in the morning and 1/2 tablet in the afternoon * Quantity: 45 Refills: 5 Chapito Muro * Started 07-Mar-2015 ActiveLORazepam 0.5 MG Oral Tablet TAKE 1 TABLET 3 TIMES DAILY NEEDED * Quantity: 90 Refills: 0 Chapito Muro * Started 15-Aug-2014 Active Allergies and Adverse Reactions Name Dates Details Ceftin TABS Status: Active Cefuroxime Axetil TABS Status: Active Past Medical History Name Dates Details History of Arm Pain Aching Status: Resolved [...] Cuff Repair History of Gastroscopy With Biopsy Completed:24-Dec-2010 History of ERCP With Endoscopic Sphincterotomy History of ERCP With Balloon Dilation Of Ampulla/Biliary/Pancr Duct(S) Completed: History of Duodenoscopy With Biopsy Completed: History of Aortic Valve Replacement Iron Panel with TIBC 1612 Ordered:31-Dec-2015 HEMOGRAM 7305 Ordered:31-Dec-2015 Parathyroid Hormone Intact 3101 Ordered:31-Dec-2015 XRay CHEST-PA & LAT Ordered:23-Jan-2016 Immunization Name Dates Details Influenza Lot #: [id number] Administered on:02-Aug-2010 Influenza Lot #: [id number] Administered on:24-Aug-2012 Pneumo (Pneumovax) Lot #: [id number] Administered on:24-Aug-2012 Fluzone High-Dose 0.5 ML Intramuscular Suspension Prefilled Syringe Lot #: [id number] Administered on:25-Jul-2015 Tdap (Adacel) Lot #: [id number] Administered on:05-Nov-2015 Family History natural son* Name Dates Details Family history of Epilepsy Status: Active Mother* Name Dates Details Family history of Heart Disease (V17.49) Status: Active Family history of Hypertension (V17.49) Status: Active Father* Name Dates Details Family history of Stroke Syndrome (V17.1) Status: Active Sister* Name Dates Details Family history of Hypertension (V17.49) Status: Active Family history of Hypertension (V17.49) Status: Active Family history of Anemia (V18.2) Status: Active Brother* Name Dates Details Family history of Heart Disease (V17.49) Status: Active Family history of Cancer Status: Active Family history of Stroke Syndrome (V17.1) Status: Active Social History Name Dates Details Smoking Status* Never smoker Vital Signs Date Test Result Details 31-Jan-2016 13:24 BP Systolic 140 mm[Hg] Status: BP Diastolic 86 mm[Hg] Status: Heart Rate 77 /min Status: Height 63 in Status: Weight 127 lb Status: O2 SAT 98 % Status: FiO2 flow rate 2 L/min Status: Body Mass Index Calculated 22.5 kg/m2 Status: Body Surface Area Calculated 1.59 m2 Status: Results Date Description Value Details 16-Jan-2016 14:41 DEXA Comments: Exam Date: 01/16/2016 13:33Dictation Date: 01/16/2016 14:41 XD DEXA (Better) 21-Jan-2016 09:44 MAMMOGRAM-SCREENING Comments: Exam Date: 01/16/2016 13 :32Dictation Date: 01/21/2016 09:44 XM SCREENING (Better) 11:25 MAGNESIUM 1260 MAGNESIUM 1.8 mg/dL (Better) Range: 1.8-2.4 11:37 Comprehensive Metabolic Panel 1212 SODIUM 141 mmol/L (Better) Range: 133-144 POTASSIUM 3.9 mmol/L (Better) Range: 3.5-5.1 CHLORIDE 97 mmol/L (Below low threshold) Range: 98-110 CARBON DIOXIDE 34.5 mmol/L (Above high threshold) Range: 23.0-33.0 ANION GAP 10 mmol/L (Better) Range: 6-16 BUN 36 mg/dL (Above high threshold) Range: 7-18 CREATININE, SERUM 1.16 mg/dL (Above high threshold) Range: 0.55-1.02 Comments: Please note new reference ranges effective 2015.----- BUN:CREATININE RATIO 31 (Better) EST GFR, 54 ml/min (Below low threshold) Range: >60 EST GFR, NON-AFR [place]ELAN 44 ml/min (Below low threshold) Range: >60 Comments: EST GFR is reported in ml/min per 1.73 m2 of body surface area. For -Danish, please multiple result by 1.2.----- GLUCOSE 108 mg/dL (Above high threshold) Range: 70-100 ALK PHOSPHATASE 100 U/L (Better) Range: 46-116 TOTAL BILIRUBIN 0.30 mg/dL (Better) Range: 0.20-1.00 AST 36 U/L (Above high threshold) Range: 8-35 ALT 24 U/L (Better) Range: 14-59 Comments: Please note new reference ranges. Effective 01/04/2015.----- ALBUMIN 3.1 g/dL (Below low threshold) Range: 3.4-5.0 TOTAL PROTEIN 7.2 g/dL (Better) Range: 6.4-8.2 A/G RATIO 0.8 units (Below low threshold) Range: 1.0-1.8 CALCIUM 10.0 mg/dL (Better) Range: 8.5-10.1 11:37 LDH 1140 LDH 394 U/L (Above high threshold) Range: 81-234 11:39 CBC w/ Auto Diff 7150 Comments: Manual differential indicated. WBC 13.6 K/uL (Above high threshold) Range: 4.5-11.0 RBC 3.34 mil/uL (Below low threshold) Range: 3.60-5.00 HGB 11.2 g/dL (Below low threshold) Range: 12.0-16.0 HCT 37.1 % (Better) Range: 36.0-48.0 MCV 111.1 fL (Above high threshold) Range: 80.0-99.0 MCH 33.5 pg (Above high threshold) Range: 27.3-32.5 MCHC 30.2 % (Below low threshold) Range: 32.0-36.0 RDW 15.8 % (Above high threshold) Range: 11.6-14.8 PLATELETS 221 K/uL (Better) Range: 150-400 MPV 9.8 fL (Better) Range: 6.0-11.0 11:58 Manual Differential 7400 SEGS 65 % (Better) Range: 37-80 BANDS 0 % (Better) Range: 0-7 LYMPH 26 % (Better) Range: 13-50 MONO 3 % (Better) Range: 0-12 EOSIN 6 % (Better) Range: 0-7 BASO 0 % (Better) Range: 0-3 JA LYMPH 0 % (Better) Range: 0-0 META 0 % (Better) Range: 0-0 MYELO 0 % (Better) Range: 0-0 PRO 0 % (Better) Range: 0-0 BLAST 0 % (Better) Range: 0-0 NUC RBC 0 /100 WBC (Better) Range: 0-0 SMUDGE 0 /100 WBC (Better) PLATELET Adequate (Better) Range: Adequate ANISO Slight (Better) MACROCYT Mod (Better) HYPOCHRO Slight (Better) 31-Jan-2016 13:26 XRay CHEST-PA & LAT Comments: Exam Date: 01/31/2016 12: 51Dictation Date: 01/31/2016 13:26 X CHEST PA & LAT (Better) Plan of Care Planned Observations* Name Dates Details Planned Goals not documented Goal Planned Encounters* Appointment; Provider: Stefan Streeter On 11:45 * Appointment; Provider: Krunal Lennon On 15:15 * Appointment; Provider: Chapito Muro On 06-Feb-2016 13:15 * Appointment; Provider: Schedule Radiology On 16-Jan-2016 13:40 * Appointment; Provider: Benigno Holt On 07-Jun-2012 14:00 * Appointment; Provider: Bruce Saunders On 11:45 * Appointment; Provider: Raphael Mcduffie On 11-Dec-2010 09:15 * Appointment; Provider: Mikal Felipe On 21-Mar-2008 13:15 Instructions * Instructions not documented Encounters Appointment; Bruce Saunders Encounter Diagnosis: Problem not documented On 06-Feb-2016 10:30 Appointment; Stefan Streeter Encounter Diagnosis: Problem not documented On 31-Jan-2016 13:15 Appointment; Krunal Lennon Encounter Diagnosis: Problem not documented On 25-Dec-2015 14:00 Appointment; Bruce Saunders Encounter Diagnosis: Problem not documented On 29-Nov-2015 15:00 Appointment; Bruce Saunders Encounter Diagnosis: Problem not documented On 13-Nov-2015 10:45 Appointment; Chapito Muro Encounter Diagnosis: Problem not documented On 05-Nov-2015 14:30 Appointment; Stefan Streeter Encounter Diagnosis: Problem not documented On 01-Nov-2015 14:00 Appointment; Krunal Lennon Encounter Diagnosis: Problem not documented On 16-Oct-2015 13:30 Appointment; Madiha Dowling Encounter Diagnosis: Problem not documented On 25-Jul-2015 11:05 Appointment; Stefan Streeter Encounter Diagnosis: Problem not documented On 12-Jun-2015 11:30 Appointment; Krunal Lennon Encounter Diagnosis: Problem not documented On 13:30 Appointment; Krunal Lennon Encounter Diagnosis: Problem not documented On 11:30 Appointment; Henry Mendoza Encounter Diagnosis: Problem not documented On 14:45 Appointment; Stefan Streeter Encounter Diagnosis: Problem not documented On 07-Mar-2015 13:00 Appointment; Krunal Lennon Encounter Diagnosis: Problem not documented On 06-Feb-2015 15:30 Appointment; Henry Mendoza Encounter Diagnosis: Problem not documented On 12-Jan-2015 10:45 Appointment; Krunal Lennon Encounter Diagnosis: Problem not documented On 26-Dec-2014 15:30 Appointment; Stefan Streeter Encounter Diagnosis: Problem not documented On 04-Dec-2014 16:00 Appointment; Raphael Mcduffie Encounter Diagnosis: Problem not documented On 07-Nov-2014 13:30 Appointment; Krunal Lennon Encounter Diagnosis: Problem not documented On 22-Aug-2014 15:00 Appointment; Aidee Wilson Encounter Diagnosis: Problem not documented On 15-Aug-2014 14:30
--- OUTSIDE RECORDS SUMMARY | 2017-02-26 16:06 | XMS REPORT | Summary of Care ---
Author Author Bruce Saunders M.D. Unknown Address Unknown Phone Unavailable Care Team Providers Care Secy Name Role Phone Ferdinand Hammonds, Cece Unavailable Unavailable Chapito Muro Unavailable Unavailable Henry Mendoza M.D. Unavailable Unavailable Phani Saunders M.D. Unavailable Unavailable Krunal Lennon M.D. Unavailable Unavailable Soyn Muro Unavailable Unavailable Unavailable Unavailable Functional Status [...] with erythropoietin (285.21, N18.9 ) Status: Active Hypercholesteremia (272.0, E78.00) Status: Active Nausea (787.02, R11.0) Status: Active Melena (578.1, K92.1) Status: Active Flu vaccine need (V04.81, Z23) Status: Active CKD (chronic kidney disease) stage 4, GFR 15-29 ml/min (585.4, N18.4) Status: Active Anemia of renal disease (285.21, D63.1) Status: Active Essential hypertension (401.9, I10) Status: Active Chronic obstructive pulmonary disease (496, J44.9) Status: Active Dyspnea on exertion (786.09, R06.09) Status: Active Hypoxemia (799.02, R09.02) Status: Active Coronary arteriosclerosis (414.00, I25.10) Status: Active Congestive heart failure (428.0, I50.9) Status: Active Anemia (285.9, D64.9) Status: Active Hypertension (401.9, I10) Status: Active Hypothyroidism (244.9, E03.9) Status: Active Shoulder pain, left (719.41, M25.512) [...] tablet daily * Quantity: 30 Refills: 1 Ferdinand HammondsStefan * Start 04-Dec-2014 Active Ipratropium-Albuterol 0.5-2.5 (3) MG/3ML Inhalation Solution INHALE 1 VIAL Daily (dx:J44.9) * Quantity: 90 Refills: 11 Ferdinand HammondsStefan * Start 06-Dec-2012 Active Brovana 15 MCG/2ML Inhalation Nebulization Solution USE VIA NEBULIZER TWO TIMES DAILY (dx:J44.9) * Quantity: 120 Refills: 11 Ferdinand HammondsStefan * Start 23-Nov-2012 Active Potassium Chloride Summer [...] Ferdinand HammondsStefan Cece * Start 01-Nov-2015 Active Pantoprazole Sodium 40 [...] DAILY NEEDED. MAY FILL ON OR AFTER 7-15-16 * Quantity: 90 Refills: 0 AustynNew willsonemy * Start 15-Aug-2014 Active Ondansetron 4 MG Oral Tablet Dispersible DISSOLVE ONE TABLET BY MOUTH EVERY 6 HOURS NEEDED FOR NAUSEA * Quantity: 30 Refills: 0 Bhaskar Chapito * Start 25-Jun-2016 Active Propranolol HCl - 40 MG Oral Tablet take 11/2 tablets twice daily * Quantity: 90 Refills: 1 AustynNew willsonemy * Start 07-Mar-2015 Active Allopurinol 300 MG Oral Tablet TAKE 1 TABLET DAILY. * Quantity: 30 Refills: 3 Chapito Muro * Start 15-Aug-2014 Active Plavix 75 MG Oral Tablet TAKE 1 TABLET DAILY. * Refills: 0 Bhaskar Chapito * Start 09-Jul-2016 Active Fluticasone Propionate 50 MCG/ACT Nasal Suspension USE 1 SPRAY IN EACH NOSTRIL ONCE DAILY NEEDED FOR ALLERGY SYMPTOMS * Quantity: 1 Refills: 3 BhaskarNewChapito * Start 09-Jul-2016 Active Digoxin 125 MCG Oral Tablet Take one tablet by mouth daily * Quantity: 30 Refills: 1 Bhaskar Chapito * Start 09-Jul-2016 Active DULoxetine HCl - 60 MG Oral Capsule Delayed Release Particles TAKE 1 CAPSULE AT BEDTIME. * Quantity: 30 Refills: 5 BhaskarNewChapito * Start 10-Oct-2013 Active Levothyroxine Sodium 25 MCG Oral Tablet TAKE 1 TABLET DAILY. * Quantity: 30 Refills: 3 BhaskarNewChapito * Start 25-Aug-2016 Active Injectafer 750 MG/15ML Intravenous Solution Give 750 mg IV, two doses, one week apart. * Quantity: 30 Refills: 0 Kruanl Lennon M.D. * Start 26-Aug-2016 Active Atorvastatin Calcium 20 MG Oral Tablet * Refills: 0 Stefan Streeter M.D. * Start 16-Sep-2016 Active Ciprofloxacin HCl - 250 MG Oral Tablet TAKE 1 TABLET EVERY 12 HOURS DAILY. for 5 days * Quantity: 10 Refills: 0 Chapito Muro * Start 23-Sep-2016 Active Allergies and Adverse Reactions Name Dates [...] Biopsy Completed: History of Aortic Valve Replacement THYROID STIM. HORMONE 3602 Ordered: 29-Sep-2016 CBC w/ Auto Diff 7150 Ordered: 29-Sep-2016 Immunization Name Dates Details Influenza Lot #: [id number] on: 02-Aug-2010 Influenza Lot #: [id number] on: 24-Aug-2012 Pneumo (Pneumovax) Lot #: [id number] on: 24-Aug-2012 Fluzone High-Dose 0.5 ML Intramuscular Suspension Prefilled Syringe Lot #: [id number] on: 25-Jul-2015 Tdap (Adacel) Lot #: [id number] on: 05-Nov-2015 Fluzone High-Dose 0.5 ML Intramuscular Suspension Prefilled Syringe Lot #: [id number] on: 02-Sep-2016 Family History Name Dates Details [...] smoker Vital Signs Date Test Result Details No Known Vitals to report Results Date Description Value Details 17-Oct-2016 10:44 CBC w/ Auto Diff 7150 WBC 9.2 K/uL Range: 4.5-11.0 RBC 3.87 mil/uL Range: 3.60-5.00 HGB 12.3 g/dL Range: 12.0-16.0 HCT 39.0 % Range: 36.0-48.0 MCV 100.8 fL (Above high threshold) Range: 80.0-99.0 MCH 31.7 pg Range: 27.3-32.5 MCHC 31.4 % (Below low threshold) Range: 32.0-36.0 RDW 16.7 % (Above high threshold) Range: 11.6-14.8 PLATELETS 137 K/uL (Below low threshold) Range: 150-400 MPV 9.5 fL Range: 6.0-11.0 %NEUTRO 49.8 % Range: 37.0-80.0 %LYMPHS 32.8 % Range: 13.0-50.0 %MONO 4.4 % Range: 0.0-12.0 %EOS 9.8 % (Above high threshold) Range: 0.0-7.0 %BASO 0.7 % Range: 0.0-2.5 %HALIMA 2.5 % Range: 0.0-5.0 NEUTRO 4.6 K/uL Range: 2.0-6.9 LYMPHS 3.0 K/uL Range: 0.6-3.4 MONOS 0.4 K/uL Range: 0.0-0.9 EOS 0.9 K/uL (Above high threshold) Range: 0.0-0.7 BASO 0.1 K/uL Range: 0.0-0.2 03-Nov-2016 11:13 RENAL PROFILE 1240 SODIUM 142 mmol/L Range: 133-144 POTASSIUM 4.8 mmol/L Range: 3.5-5.1 CHLORIDE 101 mmol/L Range: 98-110 CARBON DIOXIDE 36.2 mmol/L (Above high threshold) Range: 23.0-33.0 ANION GAP 5 mmol/L (Below low threshold) Range: 6-16 BUN 26 mg/dL (Above high threshold) Range: 7-18 CREATININE, SERUM 1.32 mg/dL (Above high threshold) Range: 0.55-1.02 EST GFR, 46 ml/min (Below low threshold) Range: >60 EST GFR, NON-AFR ARMEN[place] 38 ml/min (Below low threshold) Range: >60 Comments: EST GFR is reported in ml/min per 1.73 m2 of body surface area. ----- BUN:CREATININE RATIO 20 GLUCOSE 99 mg/dL Range: 70-100 ALBUMIN 3.1 g/dL (Below low threshold) Range: 3.4-5.0 PHOSPHORUS 4.0 mg/dL Range: 2.6-4.7 CALCIUM 9.2 mg/dL Range: 8.5-10.1 11:32 Manual Differential 7400 SEGS 59 % Range: 37-80 BANDS 1 % Range: 0-7 LYMPH 25 % Range: 13-50 MONO 10 % Range: 0-12 EOSIN 5 % Range: 0-7 BASO 0 % Range: 0-3 JA LYMPH 0 % Range: 0-0 META 0 % Range: 0-0 MYELO 0 % Range: 0-0 PRO 0 % Range: 0-0 BLAST 0 % Range: 0-0 NUC RBC 0 /100 WBC Range: 0-0 SMUDGE 0 /100 WBC PLATELET Adequate Range: Adequate ANISO Mod MACROCYT Mod HYPOCHRO Mod POLYCHRO Slight TARGET Present TEAR Present GIANT PLT Present 11:32 CBC w/ Auto Diff 7150 Comments: Manual differential indicated. WBC 10.4 K/uL Range: 4.5-11.0 RBC 3.78 mil/uL Range: 3.60-5.00 HGB 12.2 g/dL Range: 12.0-16.0 HCT 37.8 % Range: 36.0-48.0 MCV 100.0 fL (Above high threshold) Range: 80.0-99.0 MCH 32.1 pg Range: 27.3-32.5 MCHC 32.1 % Range: 32.0-36.0 RDW 16.5 % (Above high threshold) Range: 11.6-14.8 PLATELETS 163 K/uL Range: 150-400 MPV 9.7 fL Range: 6.0-11.0 Plan of Care Name Dates Details Planned Observations Planned Goals not documented Planned Encounters Appointment; Provider: Stefan Streeter M.D. On 19-Mar-2017 14:00 Appointment; Provider: Schedule Radiology On 03-Feb-2017 08:00 Appointment; Provider: Chapito Muro On 02-Dec-2016 11:15 Appointment; Provider: Krunal Lennon M.D. On 04-Nov-2016 13:45 Instructions Name Dates Details Instructions not documented Encounters Appointment; Chapito Muro Encounter Diagnosis: Problem not [...] documented On 06-Feb-2016 10:30 Appointment; Stefan Streeter M.D. Encounter Diagnosis: Problem not documented On 31-Jan-2016 13:15 Appointment; Krunal Lennon M.D. Encounter Diagnosis: Problem not documented On 25-Dec-2015 14:00 Appointment; Bruce Saunders M.D. Encounter Diagnosis: Problem not documented On 29-Nov-2015 15:00 Appointment; Bruce Saunders M.D. Encounter Diagnosis: Problem not documented On 13-Nov-2015 10:45 Appointment; Chapito Mruo Encounter Diagnosis: Problem not documented On 05-Nov-2015 [...]
[2017-02-26 16:07] VITALS: BP 116/65; PULSE 61; RESP 18; TEMP 96.2; O2SAT 99
--- OUTSIDE RECORDS SUMMARY | 2017-02-26 16:07 | XMS REPORT | Summary of Care ---
Author Author Chapito Muro Organization Unknown Address [address] [place], [place] [id number] Phone Unavailable Care Team Providers Care Piano Regulator Inspector Name Role Phone Cece Streeter M.D. Unavailable Unavailable Chapito Muro Unavailable Unavailable Reji Hammonds, T. KLinda Unavailable Unavailable Abdiaziz Meng M.D. 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 CKD (chronic kidney disease) stage 4, GFR 15-29 ml/min (585.4, N18.4) Status: Active Dysuria (788.1, R30.0) Status: Active Essential hypertension (401.9, I10) Status: Active Coronary arteriosclerosis (414.00, I25.10) Status: Active Left leg swelling (729.81, M79.89) Status: Active Itching (698.9, L29.9) Status: Active Abdominal pain (789.00, R10.9) Status: Active Hospital discharge follow-up (V67.59, Z09) Status: Active Medications Name Dates Details Multi-Day Vitamins TABS I po qd * Start 07-Jun-2009 Active Brovana 15 MCG/2ML Inhalation Nebulization Solution USE VIA NEBULIZER TWO TIMES DAILY (dx:J44.9) * Quantity: 120 Refills: 11 Stefan Streeter M.D. * Start 23-Nov-2012 Active Ipratropium-Albuterol 0.5-2.5 (3) MG/3ML Inhalation Solution INHALE 1 VIAL Daily (dx:J44.9) * Quantity: 90 Refills: 11 Stefan Streeter M.D. * Start 06-Dec-2012 Active Adult Aspirin EC Low Strength 81 MG Oral Tablet Delayed Release * Refills: 0 Reji Hammonds T. KLinda * Start 05-Jul-2013 Active Ventolin HFA 108 (90 Base) MCG/ACT Inhalation Aerosol Solution 2 puffs every 6 hours as needed * Refills: 0 * Start 15-Aug-2014 Active MiraLax Oral Powder MIX 1 CAPFUL IN 8 OUNCES OF WATER AND DRINK DAILY DIRECTED. * Quantity: 1 Refills: 6 * Start 15-Aug-2014 Active Budesonide 0.5 MG/2ML Inhalation Suspension USE 1 UNIT DOSE VIA NEBULIZER TWO TIMES A DAY (dx:J44.9) * Quantity: 120 Refills: 11 Stefan Streeter M.D. * Start 01-Nov-2015 Active Plavix 75 MG Oral Tablet TAKE 1 TABLET DAILY. * Refills: 0 Chapito Muro * Start 09-Jul-2016 Active Digoxin 125 MCG Oral Tablet TAKE 1 TABLET BY MOUTH DAILY * Quantity: 30 Refills: 1 Chapito Muro * Start 16-Jan-2017 Active Aspirin EC Low Dose 81 MG Oral Tablet Delayed Release TAKE 1 TABLET BY MOUTH DAILY * Quantity: 30 Refills: 0 Chapito Muro * Start 30-Dec-2016 Active Ciprofloxacin HCl - 250 MG Oral Tablet Take 1 tablet twice daily * Quantity: 10 Refills: 0 Chapito Muro * Start 16-Feb-2017 Active Clopidogrel Bisulfate 75 MG Oral Tablet TAKE 1 TABLET BY MOUTH EVERY EVENING * Quantity: 30 Refills: 1 Chapito Muro * Start 16-Jan-2017 Active ROPINIRole HCl - 2 MG Oral Tablet Take 1 tablet by mouth at bedtime * Quantity: 30 Refills: 2 Chapito Muro * Start 16-Jan-2017 Active Ondansetron 4 MG Oral Tablet Dispersible DISSOLVE ONE TABLET BY MOUTH EVERY 6 HOURS NEEDED FOR NAUSEA * Quantity: 30 Refills: 0 Chapito Muro * Start 25-Jun-2016 Active Oxygen 2 LPM 24 HOURS A DAY MAY TITRATE UP FOR DYSPNEA * Refills: 0 * Start Active Mirtazapine 45 MG Oral Tablet TAKE 1/2 TABLET DAILY * Refills: 0 Stefan Streeter M.D. * Start 10-Oct-2013 Active BusPIRone HCl - 7.5 MG Oral Tablet TAKE ONE TAB BY MOUT TWICE DAILY * Quantity: 60 Refills: 0 Chapito Muro * Start Active Levothyroxine Sodium 25 MCG Oral Tablet Take 1 tablet by mouth every morning * Quantity: 30 Refills: 2 Chapito Muro * Start 30-Dec-2016 Active Propranolol HCl - 40 MG Oral Tablet TAKE 1 AND 1/2 TABLET TABLET BY MOUTH TWICE A DAY * Quantity: 90 Refills: 2 Chapito Muro * Start 30-Dec-2016 Active Mapap 325 MG Oral Tablet TAKE 2 TABLETS BY MOUTH EVERY MORNING AT 0600 FOR SHOULDER PAIN * Quantity: 60 Refills: 0 Chapito Muro * Start 30-Dec-2016 Active Potassium Chloride Summer ER 10 MEQ Oral Tablet Extended Release take 2 tabs daily * Quantity: 90 Refills: 3 Bahskar Chapito * Start 19-Jan-2014 Active Atorvastatin Calcium 20 [...] 2 Chapito Muro * Start 16-Jan-2017 Active Pantoprazole Sodium 40 MG Oral Tablet Delayed Release TAKE 1 TABLET BY MOUTH TWICE A DAY * Quantity: 60 Refills: 0 Chapito Muro * Start 16-Jan-2017 Active Allopurinol 300 MG Oral Tablet TAKE 1 TABLET BY MOUTH DAILY * Quantity: 30 Refills: 1 Chapito Muro * Start 16-Jan-2017 Active Doxepin HCl - 10 MG Oral Capsule TAKE 1 CAPSULE AT BEDTIME for itching * Quantity: 1 Refills: 1 Carito Meng M.D. * Start 07-Feb-2017 Active 30 Capsule Bottle LORazepam 0.5 MG Oral Tablet TAKE 1 TABLET TWICE DAILY. * Quantity: 60 Refills: 1 Chapito Muro * Start 15-Aug-2014 Active Furosemide 40 MG Oral Tablet take 1 tablet by mouth every day * Quantity: 30 Refills: 2 Chapito Muro * Start 16-Feb-2017 Active Allergies and Adverse Reactions Name Dates [...] Biopsy Completed: History of Aortic Valve Replacement LIPID PROFILE 1184 Ordered: 11-Feb-2017 THYROID STIM. HORMONE 3602 Ordered: 11-Feb-2017 CT AB/ PEL WITH IV AND ORAL CONTRAST Ordered: 17-Feb-2017 Immunization Name Dates Details Influenza Lot #: [id number] on: 02-Aug-2010 Influenza Lot #: [id number] on: 24-Aug-2012 Pneumo (Pneumovax) Lot #: [id number] on: 24-Aug-2012 Fluzone High-Dose 0.5 ML Intramuscular Suspension Prefilled Syringe Lot #: [id number] on: 25-Jul-2015 Tdap (Adacel) Lot #: [id number] on: 05-Nov-2015 Fluzone High-Dose 0.5 ML Intramuscular Suspension Prefilled Syringe Lot #: [id number] on: 02-Sep-2016 Family History Name Dates Details [...] smoker Vital Signs Date Test Result Details 17-Feb-2017 16:17 BP Systolic 138 mm[Hg] Status: Comments: Location: ; Position: BP Diastolic 78 mm[Hg] Status: Comments: Location: ; Position: Heart Rate 65 /min Status: Comments: Location: ; Height 63 in Status: Weight 101.375 lb Status: Physical Findings 94 Status: Comments: O2 Saturation Body Mass Index Calculated 17.96 kg/m2 Status: Body Surface Area Calculated 1.45 m2 Status: 11-Feb-2017 15:12 BP Systolic 96 mm[Hg] Status: Comments: Location: ; Position: BP Diastolic 64 mm[Hg] Status: Comments: Location: ; Position: Heart Rate 65 /min Status: Comments: Location: ; Height 63 in Status: Weight 97 lb Status: Physical Findings 90 Status: Comments: O2 Saturation Body Mass Index Calculated 17.18 kg/m2 Status: Body Surface Area Calculated 1.42 m2 Status: 07-Feb-2017 13:22 BP Systolic 128 mm[Hg] Status: Comments: Location: ; Position: BP Diastolic 62 mm[Hg] Status: Comments: Location: ; Position: Temperature 98 f Status: Heart Rate 72 /min Status: Comments: Location: ; Physical Findings 16 Status: Comments: Respiration Weight 94 lb Status: Physical Findings 99 Status: Comments: O2 Saturation Body Mass Index Calculated 16.65 kg/m2 Status: Body Surface Area Calculated 1.4 m2 Status: Results Date Description Value Details 11-Feb-2017 10:07 CBC w/ Auto Diff 7150 Comments: ORDER IN BOOK UNDER JANUARY WBC 12.0 K/uL (Above high threshold) Range: 4.5-11.0 RBC 2.40 mil/uL (Below low threshold) Range: 3.60-5.00 HGB 8.7 g/dL (Below low threshold) Range: 12.0-16.0 HCT 28.4 % (Below low threshold) Range: 36.0-48.0 MCV 118.2 fL (Above high threshold) Range: 80.0-99.0 MCH 36.1 pg (Above high threshold) Range: 27.3-32.5 MCHC 30.5 % (Below low threshold) Range: 32.0-36.0 RDW 16.6 % (Above high threshold) Range: 11.6-14.8 PLATELETS 180 K/uL Range: 150-400 MPV 11.1 fL (Above high threshold) Range: 6.0-11.0 %NEUTRO 68.8 % Range: 37.0-80.0 %LYMPHS 13.6 % Range: 13.0-50.0 %MONO 5.3 % Range: 0.0-12.0 %EOS 8.7 % (Above high threshold) Range: 0.0-7.0 %BASO 0.7 % Range: 0.0-2.5 %HALIMA 2.8 % Range: 0.0-5.0 NEUTRO 8.3 K/uL (Above high threshold) Range: 2.0-6.9 LYMPHS 1.6 K/uL Range: 0.6-3.4 MONOS 0.6 K/uL Range: 0.0-0.9 EOS 1.1 K/uL (Above high threshold) Range: 0.0-0.7 BASO 0.1 K/uL Range: 0.0-0.2 10:07 RETICULOCYTE PANEL 7620 %RETIC 4.3 % (Above high threshold) Range: 0.6-2.6 ABSOLUTE RETIC COUNT 102 mil/L Range: 18-158 RBC 2.40 mil/uL (Below low threshold) Range: 3.60-5.00 10:49 PHOSPHORUS 1145 Comments: Items were attached to this order: PHOS PHOSPHORUS 4.8 mg/dL (Above high threshold) Range: 2.6-4.7 10:51 Comprehensive Metabolic Panel 1212 SODIUM 141 mmol/L Range: 133-144 POTASSIUM 4.0 mmol/L Range: 3.5-5.1 CHLORIDE 100 mmol/L Range: 98-110 CARBON DIOXIDE 37.4 mmol/L (Above high threshold) Range: 23.0-33.0 ANION GAP 4 mmol/L (Below low threshold) Range: 6-16 BUN 35 mg/dL (Above high threshold) Range: 7-18 CREATININE, SERUM 1.87 mg/dL (Above high threshold) Range: 0.55-1.02 BUN:CREATININE RATIO 19 EST GFR, 31 ml/min (Below low threshold) Range: >60 EST GFR, NON-AFR NICAR[place]UAN 26 ml/min (Below low threshold) Range: >60 Comments: EST GFR is reported in ml/min per 1.73 m2 of body surface area. ----- GLUCOSE 107 mg/dL (Above high threshold) Range: 70-100 ALK PHOSPHATASE 84 U/L Range: 46-116 TOTAL BILIRUBIN 1.10 mg/dL (Above high threshold) Range: 0.20-1.00 AST 34 U/L Range: 8-35 ALT 16 U/L Range: 14-59 ALBUMIN 3.1 g/dL (Below low threshold) Range: 3.4-5.0 TOTAL PROTEIN 6.0 g/dL (Below low threshold) Range: 6.4-8.2 A/G RATIO 1.1 units Range: 1.0-1.8 CALCIUM 9.2 mg/dL Range: 8.5-10.1 10:51 MAGNESIUM 1260 MAGNESIUM 1.5 mg/dL (Below low threshold) Range: 1.8-2.4 10:51 LDH 1140 LDH 515 U/L (Above high threshold) Range: 81-234 10:51 URIC ACID 1155 URIC ACID 3.8 mg/dL Range: 2.6-7.2 16:21 ULTRASOUND LEG VEINS LEFT Comments: Exam Date: 02/11/2017 15: 49Dictation Date: 02/11/2017 16:21 XS LEG VEINS LEFT 16:45 XRay FOOT-Left Comments: Exam Date: 02/11/2017 15:54Dictation Date: 16:45 X FOOT COMP (MIN 3V) LT 12-Feb-2017 16:32 Haptoglobin [id number] Comments: Testing performed at: [DA] [facility], [address], Phone: , Tool Planer Set Up Operator: KEILA Carranza MD HAPTOGLOBIN 33 mg/dL (Below low threshold) Range: 34-200 13-Feb-2017 09:04 VIVIAN PE and [facility] Serum [id number] Comments: [facility] : [facility] [address] [place] [address], [phone], , Tool Planer Set Up Operator: KEILA Carranza MD IMMUNOGLOBULIN G, QN, SERUM 632 mg/dL (Below low threshold) Range: 700- 1600 IMMUNOGLOBULIN A, QN, SERUM 56 mg/dL (Below low threshold) Range: 64-422 IMMUNOGLOBULIN M, QN, SERUM 260 mg/dL (Above high threshold) Range: 26- 217 PROTEIN, TOTAL, SERUM 5.7 g/dL (Below low threshold) Range: 6.0-8.5 ALBUMIN 2.9 g/dL Range: 2.9-4.4 XUHZO-5-MNRETQTM 0.5 g/dL (Above high threshold) Range: 0.0-0.4 BNVJT-5-IHYQDZDF 0.7 g/dL Range: 0.4-1.0 BETA GLOBULIN 0.8 g/dL Range: 0.7-1.3 GAMMA GLOBULIN 0.8 g/dL Range: 0.4-1.8 M-SPIKE 0.1 g/dL (Above high threshold) Range: Not Observed GLOBULIN, TOTAL 2.8 g/dL Range: 2.2-3.9 A/G RATIO 1.1 Range: 0.7-1.7 IMMUNOFIXATION RESULT, SERUM Comment Comments: 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.----- PLEASE NOTE: Comment Comments: Protein electrophoresis scan will follow via computer,mail, or documentation specialist delivery.----- FREE KAPPA LT CHAINS,S 18.55 mg/L Range: 3.30-19.40 Comments: Effective March 30, 2017 Free Lambda Lt Chains,S reference interval will be changing to: 5.7 - 26.3----- FREE LAMBDA LT CHAINS,S 162.00 mg/L (Above high threshold) Range: 5.71- 26.30 Comments: Effective March 30, 2017 Free Lambda Lt Chains,S reference interval will be changing to: 5.7 - 26.3----- KAPPA/LAMBDA RATIO,S 0.11 (Below low threshold) Range: 0.26-1.65 13:45 Urinalysis, Reflex to Microscopic or Culture PRN 8005 pH 6.0 Range: 5.0-7.5 SP GRAVITY 1.015 Range: 1.010-1.030 APPEARANCE TURBID (Abnormal) Range: Clear COLOR YELLOW Range: Straw-Yellow PROTEIN 100 mg/dL (Abnormal) Range: Negative-Trace GLUCOSE NEGATIVE mg/dL Range: Negative KETONE NEGATIVE mg/dL Range: Negative BILIRUB SMALL (Abnormal) Range: Negative BLOOD SMALL (Abnormal) Range: Negative UROBIL 1.0 EU/dL Range: 0.2-1.0 NITRITE NEGATIVE Range: Negative LEUK LARGE (Abnormal) Range: Negative 13:45 Urine Microscopic UMIC WBC TNTC /HPF (Abnormal) Range: 0-5 Comments: Specimen referred to Reference Lab for Culture----- RBC 6-10 /HPF (Abnormal) Range: 0-2 MUCUS 1+ /LPF Range: Negative-2+ BACTERIA 3+ /HPF (Abnormal) Range: Negative-Trace Comments: Specimen referred to Reference Lab for Culture----- EPITH 3-5 /HPF Range: 0-10 16-Feb-2017 09:14 URINE CULTURE [id number] Comments: [facility] performed at: [facility], [address] [place] [address], [phone], Tool Planer Set Up Operator: Gigi Alberto D.O., MPHQuest Collection Date/Time: [id number] Results Received Date/Time: [id number] Reported Date/Time: FASTING:NOQuest performed at: [facility], [address] [place] [address], [phone], Tool Planer Set Up Operator: Gigi Alberto D.O., MPHQuest Collection Date/Time: Results Received Date/Time: [id number] Reported Date/Time: FASTING:NOQuest performed at: [facility], [address] [place] [address], [phone], Tool Planer Set Up Operator: Gigi Alberto D.O., MPHQuest Collection Date/Time: [id number] Results Received Date/Time: [id number] Reported Date/Time: FASTING:NO CULTURE, URINE, ROUTINE SEE NOTE (Abnormal) Comments: CULTURE, URINE, ROUTINE MICRO NUMBER: [id number] TEST STATUS: FINAL SPECIMEN SOURCE : URINE SPECIMEN QUALITY: ADEQUATE RESULT: Greater than 100,000 CFU/mL of Citrobacter freundii C.freundii INT LUIS ALFREDO AMOX/ CLAVULANATE R 4 CEFAZOLIN R >=64 1 CEFEPIME S <=1 CEFTRIAXONE S <=1 CIPROFLOXACIN S <=0.25 ERTAPENEM S <=0.5 GENTAMICIN S <=1 IMIPENEM S 0.5 LEVOFLOXACIN S 0.5 NITROFURANTOIN S <=16 PIP/TAZOBACTAM S 8 TOBRAMYCIN S <=1 TRIMETHOPRIM/SULFA S <=20S= Susceptible I=Intermediate R=Resistant *=Not TestedNR=Not [...] 8 indicates resistance to parenteral cefazolin. An alternate test method must be performed to to confirm susceptibility to parenteral cefazolin.[KS]----- Plan of Care Name Dates Details Planned Observations Planned Goals not documented Planned Encounters Appointment; Provider: Chapito Muro On 13:30 Appointment; Provider: Stefan Streeter M.D. On 19-Mar-2017 14:00 Appointment; Provider: Krunal Lennon M.D. On 03-Mar-2017 14:45 Interventions Provided Labs/Procedures/Imaging* CT AB/ PEL WITH IV AND ORAL CONTRAST; To be Done: 17 Feb 2017 Instructions Name Dates Details Instructions not documented Encounters Appointment; Chapito Muro Encounter Diagnosis: Problem not documented On 11-Feb-2017 15:30 Appointment; Krunal Lennon M.D. Encounter Diagnosis: Problem not documented On 11-Feb-2017 14:00 Appointment; Carito Meng M.D. Encounter Diagnosis: Problem not documented On 07-Feb-2017 13:10 Appointment; Krunal Lennon M.D. Encounter Diagnosis: Problem [...] Diagnosis: Problem not documented On 13:30 Appointment; yR Maurer M.D. Encounter Diagnosis: Problem not documented [...]
[2017-02-26 16:09] VITALS: Ht 152.4 cm; Wt 44.3 kg
--- OUTSIDE RECORDS SUMMARY | 2017-02-26 16:09 | XMS REPORT | Summary of Care ---
Author Author Chapito Muro Organization Unknown Address [address] [place] [id number] Phone Unavailable Care Team Providers Care Forgeman Helper Name Role Phone Ferdinand Hammonds, Cece Unavailable [...] lower quadrant pain (789.03, R10.31) Status: Active Nausea (787.02, R11.0) Status: Active Abdominal pain (789.00, R10.9) Status: Active Localized edema (782.3, R60.0) Status: Active Hyperkalemia (276.7, E87.5) Status: Active Hypercholesteremia (272.0, E78.00) Status: Active Congestive heart failure (428.0, I50.9) Status: Active Mixed incontinence (788.33, N39.46) Status: Active Peripheral neuropathy (356.9, G62.9) Status: Active Coronary arteriosclerosis (414.00, I25.10) Status: Active Hypertension (401.9, I10) Status: Active Seasonal allergies (477.9, J30.2) Status: Active Chronic kidney disease, stage III (moderate) (585.3, N18.3) Status: Active Generalized edema (782.3, R60.1) Status: Active Iron deficiency anemia (280.9, D50.9) Status: Active Encounter for screening colonoscopy (V76.51, Z12.11) Status: Active Anemia (285.9, D64.9) Status: Active Shoulder pain, left (719.41, M25.512) Status: Active Rotator cuff syndrome, left (726.10, M75.102) Status: Active Urinary symptom or sign (788.99, R39.9) Status: Active Urinary tract infection (599.0, N39.0) Status: Active CKD (chronic kidney disease) stage 3, GFR 30-59 ml/min (585.3, N18.3) Status: Active 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, 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 ) Status: Active Essential hypertension (401.9, I10) Status: Active Medications Name Dates Details Multi-Day [...] daily * Quantity: 30 Refills: 1 Chapito uMro * Start 09-Jul-2016 Active DULoxetine HCl - [...] Valve Replacement Iron Panel with TIBC 1612 Ordered: 18-Aug-2016 Immunization Name Dates Details Influenza Lot #: [id number] on: 02-Aug-2010 Influenza Lot #: [id number] on: 24-Aug-2012 Pneumo (Pneumovax) Lot #: [id number] on: 24-Aug-2012 Fluzone High-Dose 0.5 ML Intramuscular Suspension Prefilled Syringe Lot #: [id number] on: 25-Jul-2015 Tdap (Adacel) Lot #: [id number] on: 05-Nov-2015 Family History Name Dates Details [...] smoker Vital Signs Date Test Result Details 18-Aug-2016 14:41 BP Systolic 120 mm[Hg] Status: [...] for Culture----- EPITH 3-5 /HPF Range: 0-10 18-Aug-2016 10:59 URINE CULTURE [id number] Comments: [facility] performed at: [facility], [address] [place] [address], [phone], Bicycle Repairman: Gigi Alberto D.O., MPHQuest Collection Date/Time: [id number] Results Received Date/Time: [id number] Reported Date/Time: [id number] FASTING:NOQuest performed at: [facility], [address] [place] [address], [phone], Bicycle Repairman: Gigi Alberto D.O., MPHQuest Collection Date/Time: [id number] Results Received Date/Time: [id number] Reported Date/Time: FASTING:NOQuest performed at: [facility], [address] [place] [address], [phone], Bicycle Repairman: Gigi Alberto D.O., MPHQuest Collection Date/Time: Results Received Date/Time: [id number] Reported Date/Time: [id number] FASTING:NO CULTURE, URINE, ROUTINE SEE NOTE (Abnormal) Comments: CULTURE, URINE, ROUTINE MICRO NUMBER: [id number] TEST STATUS: FINAL SPECIMEN SOURCE : URINE [...] low threshold) Range: >60 EST GFR, NON-AFR [place] 28 ml/min (Below low threshold) Range: >60 Comments: EST GFR is reported in ml/min per 1.73 m2 of body surface area. ----- BUN:CREATININE RATIO 23 GLUCOSE 145 mg/dL (Above high threshold) Range: 70-100 Comments: Variance from previous testing noted.----- ALBUMIN 3.0 g/dL (Below low threshold) Range: 3.4-5.0 PHOSPHORUS 3.7 mg/dL Range: 2.6-4.7 CALCIUM 8.9 mg/dL Range: 8.5-10.1 Plan of Care Name Dates Details Planned Observations LIPID PROFILE 1184 On 14-Aug-2016 Intent THYROID STIM. HORMONE 3602 On 14-Aug-2016 Intent CBC w/ Auto Diff 7150 On 14-Aug-2016 Intent Comprehensive Metabolic Panel 1212 On 14-Aug-2016 Intent Planned Goals not documented Planned Encounters Appointment; Provider: Stefan Streeter M.D. On 16-Sep-2016 13:30 Appointment; Provider: Krunal Lennon M.D. On 02-Sep-2016 14:15 Appointment; Provider: Ry Maurer M.D. On 30-Jul-2016 10:00 Appointment; Provider: Ry Maurer M.D. On 21-Jul-2016 08:00 Instructions Name Dates Details Instructions not documented Encounters Appointment; Ry Maurer M.D. Encounter Diagnosis: Problem not documented On 14:30 Appointment; Krunal Lennon M.D. Encounter Diagnosis: Problem not documented On 15:15 Appointment; Ry Maurer M.D. Encounter Diagnosis: Problem not documented On 14:00 Appointment; Chapito Muro Encounter Diagnosis: Problem not documented On 03-Mar-2016 09:15 Appointment; Sturat Blancas M.D. Encounter Diagnosis: Problem not documented [...]
--- OUTSIDE RECORDS SUMMARY | 2017-02-26 16:10 | XMS REPORT | Summary of Care ---
Author Author Chapito Muro Organization Unknown Address [address], [place] [id number] Phone Unavailable Care Team Providers Care Material Requirements Planning Manager Name Role Phone Ferdinand Hammonds, Cece Unavailable [...] symptom or sign (788.99, R39.9) Status: Active CKD (chronic kidney disease) stage 3, GFR 30-59 ml/min (585.3, N18.3) Status: Active Hypercholesteremia (272.0, E78.00) Status: Active Nausea (787.02, R11.0) Status: Active Melena (578.1, K92.1) Status: Active Flu vaccine need (V04.81, Z23) Status: Active Anemia of renal disease (285.21, D63.1) Status: Active Chronic obstructive pulmonary disease (496, [...] with erythropoietin (285.21, N18.9 ) Status: Active CKD (chronic kidney disease) stage 4, GFR 15-29 ml/min (585.4, N18.4) Status: Active Shortness of breath (786.05, R06.02) Status: Active Abdominal pain (789.00, R10.9) Status: Active Anemia (285.9, D64.9) Status: Active Congestive heart failure (428.0, I50.9) Status: Active Urinary tract infection (599.0, N39.0) Status: Active Coronary arteriosclerosis (414.00, I25.10) Status: Active Essential hypertension (401.9, I10) Status: Active Hypothyroidism (244.9, E03.9) Status: Active Medications Name Dates Details Multi-Day [...] daily * Quantity: 30 Refills: 1 Ferdinand Hammnods Stefan Zhao * Start 04-Dec-2014 Active Ipratropium-Albuterol 0.5-2.5 (3) MG/3ML Inhalation Solution INHALE 1 VIAL Daily (dx:J44.9) * Quantity: 90 Refills: 11 Ferdinand Hammonds Stefan Zhao * Start 06-Dec-2012 Active Brovana 15 MCG/2ML Inhalation Nebulization Solution USE VIA NEBULIZER TWO TIMES DAILY (dx:J44.9) * Quantity: 120 Refills: 11 Ferdinand Hammonds Stefan Zhao * Start 23-Nov-2012 Active Potassium Chloride Summer [...] (dx:J44.9) * Quantity: 120 Refills: 11 Ferdinand Hammonds Stefan Zhao * Start 01-Nov-2015 Active Pantoprazole Sodium 40 [...] Refills: 0 Chapito Muro * Start Active Ondansetron 4 MG Oral Tablet Dispersible DISSOLVE ONE TABLET BY MOUTH EVERY 6 HOURS NEEDED FOR NAUSEA * Quantity: 30 Refills: 0 AustynChapito willson * Start 25-Jun-2016 Active Propranolol HCl - 40 MG Oral Tablet take 11/2 tablets twice daily * Quantity: 90 Refills: 1 AustynNew willsonemy * Start 07-Mar-2015 Active Allopurinol 300 MG Oral Tablet TAKE 1 TABLET DAILY. * Quantity: 30 Refills: 3 BhaskarChapito * Start 15-Aug-2014 Active Plavix 75 MG Oral Tablet TAKE 1 TABLET DAILY. * Refills: 0 BhaskarNewChapito * Start 09-Jul-2016 Active Fluticasone Propionate 50 MCG/ACT Nasal Suspension USE 1 SPRAY IN EACH NOSTRIL ONCE DAILY NEEDED FOR ALLERGY SYMPTOMS * Quantity: 1 Refills: 3 Bhaskar Chapito * Start 09-Jul-2016 Active Digoxin 125 MCG Oral Tablet Take one tablet by mouth daily * Quantity: 30 Refills: 1 Chapito Muro * Start 09-Jul-2016 Active DULoxetine HCl - 60 MG Oral Capsule Delayed Release Particles TAKE 1 CAPSULE AT BEDTIME. * Quantity: 30 Refills: 5 AustynChapito willson * Start 10-Oct-2013 Active Levothyroxine Sodium 25 MCG Oral Tablet TAKE 1 TABLET DAILY. * Quantity: 30 Refills: 3 BhaskarChapito * Start 25-Aug-2016 Active Injectafer 750 MG/15ML Intravenous Solution Give 750 mg IV, two doses, one week apart. * Quantity: 30 Refills: 0 Krunal Lennon M.D. * Start 26-Aug-2016 Active Atorvastatin Calcium 20 MG Oral Tablet * Refills: 0 Stefan Streeter M.D. * Start 16-Sep-2016 Active LORazepam 0.5 MG Oral Tablet TAKE 1 TABLET TWICE DAILY. * Quantity: 60 Refills: 1 Bhaskar Chapito * Start 15-Aug-2014 Active Ciprofloxacin HCl - 250 MG Oral Tablet TAKE 1 TABLET EVERY 12 HOURS DAILY FOR 7 DAYS * Quantity: 7 Refills: 0 Bhaskar Chapito * Start 23-Sep-2016 Active Allergies and Adverse [...] Immunization Name Dates Details Influenza Lot #: [id number] on: 02-Aug-2010 Influenza Lot #: [id number] on: 24-Aug-2012 Pneumo (Pneumovax) Lot #: [id number] on: 24-Aug-2012 Fluzone High-Dose 0.5 ML Intramuscular Suspension Prefilled Syringe Lot #: [id number] on: 25-Jul-2015 Tdap (Adacel) Lot #: [id number] on: 05-Nov-2015 Fluzone High-Dose 0.5 ML Intramuscular Suspension Prefilled Syringe Lot #: [id number] on: 02-Sep-2016 Family History Name Dates Details [...] smoker Vital Signs Date Test Result Details 02-Dec-2016 11:14 BP Systolic 118 mm[Hg] Status: Comments: Location: ; Position: BP Diastolic 74 mm[Hg] Status: Comments: Location: ; Position: Heart Rate 70 /min Status: Comments: Location: ; Height 63 in Status: Weight 105.375 lb Status: Physical Findings 99 Status: Comments: O2 Saturation Body Mass Index Calculated 18.67 kg/m2 Status: Body Surface Area Calculated 1.47 m2 Status: 19-Nov-2016 14:28 BP Systolic 140 mm[Hg] Status: Comments: Location: ; Position: BP Diastolic 80 mm[Hg] Status: Comments: Location: ; Position: Temperature 97.9 f Status: Comments: Method: Heart Rate 67 /min Status: Comments: Location: ; Physical Findings 98 Status: Comments: O2 Saturation FiO2 flow rate 2 L/min Status: 04-Nov-2016 13:49 BP Systolic 132 mm[Hg] Status: Comments: Location: ; Position: BP Diastolic 74 mm[Hg] Status: Comments: Location: ; Position: Heart Rate 66 /min Status: Comments: Location: ; Weight 104 lb Status: Body Mass Index Calculated 18.42 kg/m2 Status: Body Surface Area Calculated 1.46 m2 Status: Results Date Description Value Details 03-Nov-2016 11:13 RENAL PROFILE 1240 SODIUM 142 [...] low threshold) Range: >60 EST GFR, NON-AFR SAO TOMEAN 38 ml/min (Below low threshold) Range: >60 [...] Range: 150-400 MPV 9.7 fL Range: 6.0-11.0 19-Nov-2016 15:00 ECG/ EKG (Specialists) Electro CardioGram 15:17 CBC w/ Auto Diff 7150 WBC 13.1 K/uL (Above high threshold) Range: 4.5-11.0 RBC 2.86 mil/uL (Below low threshold) Range: 3.60-5.00 HGB 9.4 g/dL (Below low threshold) Range: 12.0-16.0 Comments: Variance from previous testing noted.----- HCT 30.4 % (Below low threshold) Range: 36.0-48.0 MCV 106.2 fL (Above high threshold) Range: 80.0-99.0 MCH 32.9 pg (Above high threshold) Range: 27.3-32.5 MCHC 30.9 % (Below low threshold) Range: 32.0-36.0 RDW 18.2 % (Above high threshold) Range: 11.6-14.8 PLATELETS 144 K/uL (Below low threshold) Range: 150-400 MPV 10.6 fL Range: 6.0-11.0 %NEUTRO 70.2 % Range: 37.0-80.0 %LYMPHS 18.6 % Range: 13.0-50.0 %MONO 5.3 % Range: 0.0-12.0 %EOS 3.8 % Range: 0.0-7.0 %BASO 0.5 % Range: 0.0-2.5 %HALIMA 1.6 % Range: 0.0-5.0 NEUTRO 9.2 K/uL (Above high threshold) Range: 2.0-6.9 LYMPHS 2.4 K/uL Range: 0.6-3.4 MONOS 0.7 K/uL Range: 0.0-0.9 EOS 0.5 K/uL Range: 0.0-0.7 BASO 0.1 K/uL Range: 0.0-0.2 15:33 BNP 3103 BNP 519.3 pg/mL (Above high threshold) Range: 0.0-100.0 15:40 AMYLASE 1250 AMYLASE 150 U/L (Above high threshold) Range: 25-115 15:40 Lipase 1275 LIPASE 303 U/L Range: 73-393 15:40 BASIC METABOLIC PROFILE 1210 SODIUM 143 mmol/L Range: 133-144 POTASSIUM 4.9 mmol/L Range: 3.5-5.1 CHLORIDE 109 mmol/L Range: 98-110 CARBON DIOXIDE 28.2 mmol/L Range: 23.0-33.0 ANION GAP 6 mmol/L Range: 6-16 BUN 39 mg/dL (Above high threshold) Range: 7-18 CREATININE, SERUM 1.05 mg/dL (Above high threshold) Range: 0.55-1.02 EST GFR, >60 ml/min Range: >60 EST GFR, NON-AFR SAO TOMEAN 50 ml/min (Below low threshold) Range: >60 Comments: EST GFR is reported in ml/min per 1.73 m2 of body surface area. ----- BUN:CREATININE RATIO 37 GLUCOSE 98 mg/dL Range: 70-100 CALCIUM 8.5 mg/dL Range: 8.5-10.1 15:41 TROPONIN I 3451 TROPONIN I <0.04 ng/mL Range: .09 Comments: Called to LaurieVerified by Repeat Analysis<0.10 ng/ml=Negative for MI0.10-0.59 ng/ml=Indeterminate for MI0.60-1.50 ng/ml=Suggestive of [place]----- 15:43 CT AB/ PEL WITHOUT IV CONTRAST (FOR KIDNEY STONE) Comments: Exam Date : 11/19/2016 15:01Dictation Date: 11/19/2016 15:43 XC ABD PEL W/O (RENAL STONE) 15:46 XRay CHEST-PA & LAT Comments: Exam Date: 11/19/2016 15:02Dictation Date: 11/19/2016 15:46 X CHEST PA & LAT 15:58 Urinalysis, Reflex to Microscopic or Culture PRN 8005 pH 5.5 Range: 5.0-7.5 SP GRAVITY 1.015 Range: 1.010-1.030 APPEARANCE CLEAR Range: Clear COLOR YELLOW Range: Straw-Yellow PROTEIN >=300 mg/dL (Abnormal) Range: Negative-Trace GLUCOSE NEGATIVE mg/dL Range: Negative KETONE NEGATIVE mg/dL Range: Negative BILIRUB NEGATIVE Range: Negative BLOOD TRACE (Abnormal) Range: Negative UROBIL 0.2 EU/dL Range: 0.2-1.0 NITRITE POSITIVE (Abnormal) Range: Negative Comments: Specimen referred to Reference Lab for Culture----- LEUK MODERATE (Abnormal) Range: Negative 16:06 Urine Microscopic UMIC WBC 11-20 /HPF (Abnormal) Range: 0-5 Comments: Specimen referred to Reference Lab for Culture----- RBC 0-2 /HPF Range: 0-2 BACTERIA 2+ /HPF (Abnormal) Range: Negative-Trace EPITH 0-2 /HPF Range: 0-10 21-Nov-2016 14:34 URINE CULTURE [id number] Comments: [facility] performed at: [facility], [address] [place] [address], [id number], Pottery Decorator: Gigi Alberto D.O., MPHQuest Collection Date/Time: [id number] Results Received Date/Time: [id number] Reported Date/Time: FASTING:NOQuest performed at: [facility], [address] [place] [address], [id number], Pottery Decorator: Gigi Alberto D.O., MPHQuest Collection Date/Time: [id number] Results Received Date/Time: [id number] Reported Date/Time: FASTING:NO CULTURE, URINE, ROUTINE SEE NOTE (Abnormal) Comments: CULTURE, URINE, ROUTINE MICRO NUMBER: [id number] TEST STATUS: FINAL SPECIMEN SOURCE : URINE SPECIMEN QUALITY: ADEQUATE RESULT: Greater than 100,000 CFU/mL of Citrobacter youngae C.youngae INT LUIS ALFREDO AMOX/ CLAVULANATE R 4 CEFAZOLIN R >=64 1 CEFEPIME S <=1 CEFTRIAXONE S <=1 CIPROFLOXACIN S <=0.25 ERTAPENEM S <=0.5 GENTAMICIN S <=1 IMIPENEM S <=0.25 LEVOFLOXACIN S <= 0.12 NITROFURANTOIN S <=16 PIP/TAZOBACTAM S <=4 TOBRAMYCIN S <=1 TRIMETHOPRIM/SULFA S <=20S= Susceptible [...] to to confirm susceptibility to parenteral cefazolin.[KS]----- 01-Dec-2016 13:46 CBC w/ Auto Diff 7150 Comments: ORDER IN BOOK UNDER NOVEMBER 2016Manual differential indicated. WBC 9.3 K/uL Range: 4.5-11.0 RBC 3.00 mil/uL (Below low threshold) Range: 3.60-5.00 HGB 10.0 g/dL (Below low threshold) Range: 12.0-16.0 HCT 31.9 % (Below low threshold) Range: 36.0-48.0 MCV 106.4 fL (Above high threshold) Range: 80.0-99.0 MCH 33.4 pg (Above high threshold) Range: 27.3-32.5 MCHC 31.4 % (Below low threshold) Range: 32.0-36.0 RDW 17.7 % (Above high threshold) Range: 11.6-14.8 PLATELETS 161 K/uL Range: 150-400 MPV 10.2 fL Range: 6.0-11.0 13:46 RETICULOCYTE PANEL 7620 Comments: ORDER IN BOOK UNDER NOVEMBER 2016 %RETIC 3.2 % (Above high threshold) Range: 0.6-2.6 ABSOLUTE RETIC COUNT 97 mil/L Range: 18-158 RBC 3.00 mil/uL (Below low threshold) Range: 3.60-5.00 14:14 THYROID STIM. HORMONE 3602 THYROID STIM. HORMONE 4.215 uIU/mL Range: 0.550-4.780 Comments: No established reference ranges for infants and children <2 years of age----- 14:27 Comprehensive Metabolic Panel 1212 Comments: ORDER IN BOOK UNDER NOVEMBER 2016 SODIUM 139 mmol/L Range: 133-144 POTASSIUM 4.5 mmol/L Range: 3.5-5.1 CHLORIDE 102 mmol/L Range: 98-110 CARBON DIOXIDE 33.0 mmol/L Range: 23.0-33.0 ANION GAP 4 mmol/L (Below low threshold) Range: 6-16 BUN 34 mg/dL (Above high threshold) Range: 7-18 CREATININE, SERUM 1.41 mg/dL (Above high threshold) Range: 0.55-1.02 BUN:CREATININE RATIO 24 EST GFR, 43 ml/min (Below low threshold) Range: >60 EST GFR, NON-AFR SAO TOMEAN 35 ml/min (Below low threshold) Range: >60 Comments: EST GFR is reported in ml/min per 1.73 m2 of body surface area. ----- GLUCOSE 141 mg/dL (Above high threshold) Range: 70-100 Comments: Variance from previous testing noted.----- ALK PHOSPHATASE 127 U/L (Above high threshold) Range: 46-116 TOTAL BILIRUBIN 0.30 mg/dL Range: 0.20-1.00 AST 40 U/L (Above high threshold) Range: 8-35 ALT 21 U/L Range: 14-59 ALBUMIN 2.9 g/dL (Below low threshold) Range: 3.4-5.0 TOTAL PROTEIN 7.1 g/dL Range: 6.4-8.2 A/G RATIO 0.7 units (Below low threshold) Range: 1.0-1.8 CALCIUM 8.8 mg/dL Range: 8.5-10.1 14:27 MAGNESIUM 1260 Comments: ORDER IN BOOK UNDER NOVEMBER 2016 MAGNESIUM 1.8 mg/dL Range: 1.8-2.4 14:29 Manual Differential 7400 Comments: ORDER IN BOOK UNDER NOVEMBER 2016 SEGS 56 % Range: 37-80 BANDS 5 % Range: 0-7 LYMPH 19 % Range: 13-50 MONO 11 % Range: 0-12 EOSIN 9 % (Above high threshold) Range: 0-7 BASO 0 % Range: 0-3 JA LYMPH 0 % Range: 0-0 META 0 % Range: 0-0 MYELO 0 % Range: 0-0 PRO 0 % Range: 0-0 BLAST 0 % Range: 0-0 NUC RBC 0 /100 WBC Range: 0-0 SMUDGE 0 /100 WBC PLATELET Adequate Range: Adequate ANISO Slight MACROCYT Mod HYPOCHRO Slight TARGET Present OVAL Present 14:52 LDH 1140 Comments: ORDER IN BOOK UNDER NOVEMBER 2016 LDH 484 U/L (Above high threshold) Range: 81-234 14:52 URIC ACID 1155 Comments: ORDER IN BOOK UNDER NOVEMBER 2016 URIC ACID 3.2 mg/dL Range: 2.6-7.2 15:29 Urinalysis, Reflex to Microscopic or Culture PRN 8005 pH 7.5 Range: 5.0-7.5 SP GRAVITY 1.020 Range: 1.010-1.030 APPEARANCE CLOUDY (Abnormal) Range: Clear COLOR YELLOW Range: Straw-Yellow PROTEIN >=300 mg/dL (Abnormal) Range: Negative-Trace GLUCOSE NEGATIVE mg/dL Range: Negative KETONE NEGATIVE mg/dL Range: Negative BILIRUB NEGATIVE Range: Negative BLOOD NEGATIVE Range: Negative UROBIL 1.0 EU/dL Range: 0.2-1.0 NITRITE NEGATIVE Range: Negative LEUK MODERATE (Abnormal) Range: Negative 15:29 Urine Microscopic UMIC WBC TNTC /HPF (Abnormal) Range: 0-5 Comments: Specimen referred to Reference Lab for Culture----- HYAL CAST 0-2 /LPF Range: 0-2 EPITH 0-2 /HPF Range: 0-10 Plan of Care Name Dates Details Planned Observations Planned Goals not documented Planned Encounters Appointment; Provider: Stefan Streeter M.D. On 19-Mar-2017 14:00 Appointment; Provider: Chapito Muro On 11-Feb-2017 15:30 Appointment; Provider: Schedule Radiology On 03-Feb-2017 08:00 Appointment; Provider: Krunal Lennon M.D. On 30-Dec-2016 13:30 Interventions Provided Medication Changes* Ciprofloxacin HCl - 250 MG Oral Tablet - Renew with Changes Instructions Name Dates Details Instructions not documented Encounters Appointment; Vanessa Sauer A.P.R.N. Encounter Diagnosis: Problem [...]
--- OUTSIDE RECORDS SUMMARY | 2017-02-26 16:10 | XMS REPORT ---
Author Author GENERATED, SYSTEM Organization Unknown Address Unknown Phone Unavailable Care Team Providers Care Staff Mechanical Engineer Name Role Phone MD YEHUDA, CHINO PP [phone] Reason For Visit Reason for Visit from 05/24/2014 1:04 PM:* Pt Stated Reason for Adm : IVIG infusion Chief Complaint 202.80 Social History Functional Status Functional Status from 05/24/2014 1:04 PM:* LOC : Alert * Oriented To : Person,Place,Time Vital Signs Hospital Vital Signs from 05/24/2014 4:30 PM:* Height : 5/0 ft,in * Pulse : 76 * BP : 133/55 Hospital Vital Signs from 05/24/2014 4:15 PM:* Height : 5/0 ft,in * Pulse : 74 * BP : 136/70 Hospital Vital Signs from 05/24/2014 4:00 PM:* Height : 5/0 ft,in * Pulse : 73 * BP : 119/63 Hospital Vital Signs from 05/24/2014 3:46 PM:* Height : 5/0 ft,in * Pulse : 82 * BP : 163/73 Hospital Vital Signs from 05/24/2014 3:30 PM:* Height : 5/0 ft,in * Pulse : 73 * BP : 137/65 Hospital Vital Signs from 05/24/2014 3:15 PM:* Height : 5/0 ft,in * Pulse : 73 * BP : 140/65 Hospital Vital Signs from 05/24/2014 3:00 PM:* Height : 5/0 ft,in * Pulse : 73 * BP : 141/65 Hospital Vital Signs from 05/24/2014 2:44 PM:* Height : 5/0 ft,in * Pulse : 72 * BP : 135/63 Hospital Vital Signs from 05/24/2014 2:29 PM:* Height : 5/0 ft,in * Pulse : 73 * BP : 141/65 Hospital Vital Signs from 05/24/2014 2:15 PM:* Height : 5/0 ft,in * Pulse : 73 * BP : 140/65 Hospital Vital Signs from 05/24/2014 2:00 PM:* Height : 5/0 ft,in * Pulse : 73 * BP : 137/65 Hospital Vital Signs from 05/24/2014 1:45 PM:* Height : 5/0 ft,in * Pulse : 74 * BP : 136/70 Hospital Vital Signs from 05/24/2014 1:30 PM:* Height : 5/0 ft,in * Pulse : 73 * Respirations : 16 * BP : 119/63 Hospital Vital Signs from 05/24/2014 1:15 PM:* Height : 5/0 ft,in * Temperature : 97.1 F * Pulse : 78 * Respirations : 16 * BP : 133/58 Results Chemistry from 05/22/2014 1:30 PMSODIUM 142 MMOL/L (136-145 MMOL/L) POTASSIUM 3.5 MMOL/L (3.5-5.1 MMOL/L) CHLORIDE 104 MMOL/L (98-107 MMOL/L) TCO2 36.4 MMOL/L H (21.0-32.0 MMOL/L) ANION GAP 1.6 MMOL/L L (8.0-16.0 MMOL/L) BUN 28 MG/DL H (7-18 MG/DL) CREATININE 0.97 MG/DL H (0.43-0.83 MG/DL) BUN/CREATININE RATIO 28.9 H (9.1-17.0 ) GLUCOSE 111 MG/DL H (65-99 MG/DL) GFR EST NON AFR YEMENI 54 ML/MIN GFRA EST AFR AMER 63 ML/MIN CALCIUM 9.2 MG/DL (8.5-10.1 MG/DL) BILIRUBIN TOTAL 0.16 MG/DL L (0.20-1.00 MG/DL) TOTAL PROTEIN 7.0 GM/DL (6.4-8.2 GM/DL) ALBUMIN 3.5 GM/DL (3.4-5.0 GM/DL) GLOBULIN 3.5 GM/DL (2.3-3.5 GM/DL) A/G RATIO 1.0 MG/DL L (1.5-2.2 MG/DL) ALK PHOS 103 U/L (46-116 U/L) ALT (SGPT) 21 U/L (12-78 U/L) AST (SGOT) 27 U/L (15-37 U/L) LDH 443 U/L H (84-246 U/L) Chemistry from 05/08/2014 2:20 PMSODIUM 139 MMOL/L (136-145 MMOL/L) POTASSIUM 4.0 MMOL/L (3.5-5.1 MMOL/L) CHLORIDE 102 MMOL/L (98-107 MMOL/L) TCO2 33.6 MMOL/L H (21.0-32.0 MMOL/L) ANION GAP 3.4 MMOL/L L (8.0-16.0 MMOL/L) BUN 21 MG/DL H (7-18 MG/DL) CREATININE 0.93 MG/DL H (0.43-0.83 MG/DL) BUN/CREATININE RATIO 22.6 H (9.1-17.0 ) GLUCOSE 124 MG/DL H (65-99 MG/DL) GFR EST NON AFR YEMENI 57 ML/MIN GFRA EST AFR AMER 66 ML/MIN CALCIUM 8.8 MG/DL (8.5-10.1 MG/DL) BILIRUBIN TOTAL 0.36 MG/DL (0.20-1.00 MG/DL) TOTAL PROTEIN 6.2 GM/DL L (6.4-8.2 GM/DL) ALBUMIN 3.0 GM/DL L (3.4-5.0 GM/DL) GLOBULIN 3.2 GM/DL (2.3-3.5 GM/DL) A/G RATIO 0.9 MG/DL L (1.5-2.2 MG/DL) ALK PHOS 99 U/L (46-116 U/L) ALT (SGPT) 32 U/L (12-78 U/L) AST (SGOT) 29 U/L (15-37 U/L) LDH 452 U/L H (84-246 U/L) Chemistry from 04/27/2014 3:45 PMSODIUM 139 MMOL/L (136-145 MMOL/L) POTASSIUM 4.4 MMOL/L (3.5-5.1 MMOL/L) CHLORIDE 98 MMOL/L (98-107 MMOL/L) TCO2 32.0 MMOL/L (21.0-32.0 MMOL/L) ANION GAP 9.0 MMOL/L (8.0-16.0 MMOL/L) BUN 42 MG/DL H (7-18 MG/DL) CREATININE 1.42 MG/DL H (0.43-0.83 MG/DL) BUN/CREATININE RATIO 29.6 H (9.1-17.0 ) GLUCOSE 158 MG/DL H (65-99 MG/DL) GFR EST NON AFR YEMENI 34 ML/MIN GFRA EST AFR AMER 40 ML/MIN CALCIUM 9.2 MG/DL (8.5-10.1 MG/DL) BILIRUBIN TOTAL 1.76 MG/DL H (0.20-1.00 MG/DL) TOTAL PROTEIN 6.6 GM/DL (6.4-8.2 GM/DL) ALBUMIN 2.7 GM/DL L (3.4-5.0 GM/DL) GLOBULIN 3.9 GM/DL H (2.3-3.5 GM/DL) A/G RATIO 0.7 MG/DL L (1.5-2.2 MG/DL) ALK PHOS 167 U/L H (46-116 U/L) ALT (SGPT) 66 U/L (12-78 U/L) AST (SGOT) 80 U/L H (15-37 U/L) LDH 937 U/L H (84-246 U/L) Hematology from 05/22/2014 1:30 PMWBC 8.8 X10e3/UL (3.6-11.2 X10e3/UL) RBC 3.05 X10e6/UL L (3.63-4.92 X10e6/UL) HEMOGLOBIN 9.6 G/DL L (11.0-14.3 G/DL) HEMATOCRIT 30.0 % L (31.2-41.9 %) MCV 98.2 FL H (79.0-98.0 FL) MCH 31.6 PG (27.0-33.0 PG) MCHC 32.2 G/DL (32.0-36.0 G/DL) RDW 19.9 % H (12.3-17.0 %) RDWSD 66.9 H (37.1-47.8 ) PLATELET 286 X10e3/UL (159-386 X10e3/UL) MPV 9.8 FL (7.4-10.4 FL) AUTOMATED DIFF PERFORMED SEGS 69.7 % LYMPHOCYTES 18.4 % MONOCYTES 10.2 % EOSINOPHILS 0.7 % BASOPHILS 1.0 % ABSOLUTE NEUTROPHILS 6.1 X10e3/UL (1.8-7.8 X10e3/UL) ABSOLUTE LYMPHOCYTES 1.6 X10e3/UL (1.0-3.0 X10e3/UL) ABSOLUTE MONOCYTES 0.9 X10e3/UL (0.3-1.0 X10e3/UL) ABSOLUTE EOSINOPHILS 0.1 X10e3/UL (0.0-0.5 X10e3/UL) ABSOLUTE BASOPHILS 0.1 X10e3/UL (0.0-0.2 X10e3/UL) RETICULOCYTE 2.18 % H (0.50-1.50 %) Hematology from 05/08/2014 2:20 PMWBC 11.6 X10e3/UL H (3.6-11.2 X10e3/UL) RBC 2.42 X10e6/UL L (3.63-4.92 X10e6/UL) HEMOGLOBIN 7.5 G/DL L (11.0-14.3 G/DL) HEMATOCRIT 24.0 % L (31.2-41.9 %) MCV 99.1 FL H (79.0-98.0 FL) MCH 31.1 PG (27.0-33.0 PG) MCHC 31.4 G/DL L (32.0-36.0 G/DL) RDW 20.2 % H (12.3-17.0 %) RDWSD 69.6 H (37.1-47.8 ) PLATELET 346 X10e3/UL (159-386 X10e3/UL) MPV 9.6 FL (7.4-10.4 FL) AUTOMATED DIFF PERFORMED SEGS 81.0 % LYMPHOCYTES 11.9 % MONOCYTES 6.8 % EOSINOPHILS 0.1 % BASOPHILS 0.2 % ABSOLUTE NEUTROPHILS 9.4 X10e3/UL H (1.8-7.8 X10e3/UL) ABSOLUTE LYMPHOCYTES 1.4 X10e3/UL (1.0-3.0 X10e3/UL) ABSOLUTE MONOCYTES 0.8 X10e3/UL (0.3-1.0 X10e3/UL) ABSOLUTE EOSINOPHILS 0.0 X10e3/UL (0.0-0.5 X10e3/UL) ABSOLUTE BASOPHILS 0.0 X10e3/UL (0.0-0.2 X10e3/UL) RETICULOCYTE 3.00 % H (0.50-1.50 %) Hematology from 04/27/2014 3:45 PMWBC CORRECTED 16.7 X10e3/UL H (3.6-11.2 X10e3/UL ) RBC 1.60 X10e6/UL L (3.63-4.92 X10e6/UL) HEMOGLOBIN 5.6 G/DL LL (11.0-14.3 G/DL) HEMATOCRIT 17.3 % L (31.2-41.9 %) MCV 108.4 FL H (79.0-98.0 FL) MCH 35.3 PG H (27.0-33.0 PG) MCHC 32.5 G/DL (32.0-36.0 G/DL) RDW 16.1 % (12.3-17.0 %) RDWSD 56.4 H (37.1-47.8 ) PLATELET 213 X10e3/UL (159-386 X10e3/UL) MPV 10.6 FL H (7.4-10.4 FL) MANUAL DIFF PERFORMED SEGS 71.0 % BANDS 1.0 % LYMPHOCYTES 17.0 % MONOCYTES 6.0 % EOSINOPHILS 0.0 % BASOPHILS 0.0 % METAMYELOCYTES 2.0 % MYELOCYTES 2.0 % PROMYELOCYTE 1.0 % ABSOLUTE NEUTROPHILS 13.3 X10e3/UL H (1.8-7.8 X10e3/UL) ABSOLUTE LYMPHOCYTES 2.9 X10e3/UL (1.0-3.0 X10e3/UL) ABSOLUTE MONOCYTES 1.0 X10e3/UL (0.3-1.0 X10e3/UL) ABSOLUTE EOSINOPHILS 0.0 X10e3/UL (0.0-0.5 X10e3/UL) ABSOLUTE BASOPHILS 0.0 X10e3/UL (0.0-0.2 X10e3/UL) NUCLEATED RBC MANUAL 18.0 /100 WBC H (0.0-1.0 /100 WBC) POLYCHROMASIA 2+ TARGET CELLS 1+ BASOPHILIC STIPPLING 1+ MITCHELL JOLLY BODIES 1+ RETICULOCYTE 7.10 % H (0.50-1.50 %) Problems Encounter Diagnosis No relevant problems exist. Encounters Encounter Diagnosis No relevant problems exist. Plan of Care Procedures No relevant procedures performed. Immunizations No immunizations administered or ordered. Hospital Course Hospital Discharge Instructions Allergies, Adverse Reactions, Alerts * cefuroxine causes Unknown. * Ceftin causes Unknown. * No Latex Allergy. * No IV Contrast Allergy. Medication Medication reconciliation has not been performed.
--- OUTSIDE RECORDS SUMMARY | 2017-02-26 16:10 | XMS REPORT ---
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 Additional Problems * Acute Pain Status:Active. * Fall Risk Status:Active. Encounters Encounter Diagnosis No relevant problems exist. Plan of Care Procedures * Completed Procedure Code: 00.00 Procedure Name: [...] assessed. * No Known Food Allergies. Medication Medication reconciliation has not been performed.
--- OUTSIDE RECORDS SUMMARY | 2017-02-26 16:11 | XMS REPORT | Summary of Care ---
Author Author Stefan Streeter M.D. Unknown Address Unknown Phone Unavailable Care Team Providers Care Daycare Teacher Name Role Phone Ferdinand Hammonds, Cece Unavailable Unavailable Chapito Muro Unavailable Unavailable Henry Mendoza M.D. Unavailable Unavailable Saji Hammonds, Krunal Unavailable Unavailable [...] inadequate iron intake (280.1, D50.8) Status: Active Shoulder pain, right (719.41, M25.511) [...] Congestive heart failure (428.0, I50.9) Status: Active Hypercholesteremia (272.0, E78.00) Status: Active Nausea (787.02, R11.0) Status: Active Melena (578.1, K92.1) Status: Active Flu vaccine need (V04.81, Z23) Status: Active CKD (chronic kidney disease) stage 4, GFR 15-29 ml/min (585.4, N18.4) Status: Active Anemia of renal disease (285.21, D63.1) Status: Active Essential hypertension (401.9, I10) Status: Active Anemia (285.9, D64.9) Status: Active Chronic obstructive pulmonary disease (496, J44.9) Status: Active Dyspnea on exertion (786.09, R06.09) Status: Active Hypoxemia (799.02, R09.02) Status: Active Medications Name Dates Details Multi-Day Vitamins TABS I po qd * Start 07-Jun-2009 Active ROPINIRole HCl - 2 MG Oral Tablet TAKE 1 TABLET AT BEDTIME. * Quantity: 90 Refills: 3 Ellie Muroy * Start 31-Aug-2009 Active Oxygen 2 LPM 24 HOURS A DAY MAY TITRATE UP FOR DYSPNEA * Refills: 0 * Start Active Brovana 15 MCG/2ML Inhalation Nebulization Solution [...] Stefan Streeter M.D. * Start 10-Oct-2013 Active DULoxetine HCl - 60 MG Oral Capsule Delayed Release Particles TAKE 1 CAPSULE AT BEDTIME. * Quantity: 30 Refills: 5 Chapito Muro * Start 10-Oct-2013 Active Potassium Chloride Summer ER 10 MEQ Oral Tablet Extended Release take 1 tab daily * Quantity: 90 Refills: 3 Bhaskar Chapito * Start 19-Jan-2014 Active Ventolin HFA 108 (90 Base) MCG/ACT Inhalation Aerosol Solution 2 puffs every 6 hours as needed * Refills: 0 * Start 15-Aug-2014 Active Pantoprazole Sodium 40 MG Oral Tablet Delayed Release take 1 tab daily * Quantity: 30 Refills: 5 Chapito Muro * Start 15-Aug-2014 Active LORazepam 0.5 MG Oral Tablet TAKE 1 TABLET 3 TIMES DAILY NEEDED. MAY FILL ON OR AFTER 05-09-16 * Quantity: 90 Refills: 0 Chapito Muro * Start 15-Aug-2014 Active MiraLax Oral Powder [...] Stefan Streeter M.D. * Start 04-Dec-2014 Active Alendronate Sodium 70 MG Oral Tablet [...] Stefan Streeter M.D. * Start 01-Nov-2015 Active BusPIRone HCl - [...] 3 Chapito Muro * Start 09-Jul-2016 Active Digoxin 125 MCG Oral Tablet Take one tablet by mouth daily * Quantity: 30 Refills: 1 Chapito Muro * Start 09-Jul-2016 Active Levothyroxine Sodium 25 MCG Oral Tablet TAKE 1 TABLET DAILY. * Quantity: 30 Refills: 3 Chapito Muro * Start 25-Aug-2016 Active Injectafer 750 MG/15ML Intravenous Solution Give 750 mg IV, two doses, one week apart. * Quantity: 30 Refills: 0 Krunal Lennon M.D. * Start 26-Aug-2016 Active Atorvastatin Calcium 20 MG Oral Tablet * Refills: 0 Stefan Streeter M.D. * Start 16-Sep-2016 Active Allergies and Adverse Reactions Name Dates [...] Biopsy Completed: History of Aortic Valve Replacement BASIC METABOLIC PROFILE 1210 Ordered: 25-Aug-2016 CBC w/ Auto Diff 7150 Ordered: 25-Aug-2016 CBC w/ Auto Diff 7150 Ordered: 08-Sep-2016 RENAL PROFILE 1240 Ordered: 08-Sep-2016 HEMOGRAM 7305 Ordered: 16-Sep-2016 RENAL PROFILE 1240 Ordered: 16-Sep-2016 Immunization Name Dates Details Influenza Lot #: [id number] on: 02-Aug-2010 Influenza Lot #: [id number] on: 24-Aug-2012 Pneumo (Pneumovax) Lot #: [id number] on: 24-Aug-2012 Fluzone High-Dose 0.5 ML Intramuscular Suspension Prefilled Syringe Lot #: [id number] on: 25-Jul-2015 Tdap (Adacel) Lot #: [id number] on: 05-Nov-2015 Fluzone High-Dose 0.5 ML Intramuscular Suspension Prefilled Syringe Lot #: [id number] on: 02-Sep-2016 Family History Name Dates Details [...] smoker Vital Signs Date Test Result Details 16-Sep-2016 13:38 BP Systolic 114 mm[Hg] Status: Comments: Location: ; Position: BP Diastolic 62 mm[Hg] Status: Comments: Location: ; Position: Heart Rate 63 /min Status: Comments: Location: ; Height 63 in Status: Weight 107 lb Status: Physical Findings 94 Status: Comments: O2 Saturation FiO2 flow rate 2 L/min Status: Body Mass Index Calculated 18.95 kg/m2 Status: Body Surface Area Calculated 1.48 m2 Status: 02-Sep-2016 14:41 BP Systolic 118 mm[Hg] Status: Comments: Location: ; Position: BP Diastolic 62 mm[Hg] Status: Comments: Location: ; Position: Heart Rate 62 /min Status: Comments: Location: ; Weight 109 lb Status: Body Mass Index Calculated 19.31 kg/m2 Status: Body Surface Area Calculated 1.49 m2 Status: 25-Aug-2016 09:59 BP Systolic 122 mm[Hg] Status: [...] m2 Status: Results Date Description Value Details 18-Aug-2016 13:43 CBC w/ Auto Diff 7150 WBC [...] low threshold) Range: >60 EST GFR, NON-AFR MALTESE 28 ml/min (Below low threshold) Range: >60 Comments: EST GFR is reported in ml/min per 1.73 m2 of body surface area. ----- BUN:CREATININE RATIO 23 GLUCOSE 145 mg/dL (Above high threshold) Range: 70-100 Comments: Variance from previous testing noted.----- ALBUMIN 3.0 g/dL (Below low threshold) Range: 3.4-5.0 PHOSPHORUS 3.7 mg/dL Range: 2.6-4.7 CALCIUM 8.9 mg/dL Range: 8.5-10.1 25-Aug-2016 10:08 LIPID PROFILE 1184 Comments: Fastin hours CHOLESTEROL 137 mg/dL Range: <200 TRIGLYCERIDES 226 mg/dL (Above high threshold) Range: 30-200 HDL Cholesterol 43 mg/dL Range: >39 NON HDL CHOLESTEROL 94 CARDIAC RSK FACTOR 3.2 units (Below low threshold) Range: 4.4-5.0 LDL - CALCULATED 49 mg/dL Range: 0-130 10:08 Comprehensive Metabolic Panel 1212 Comments: Fastin hours SODIUM 142 mmol/L Range: 133-144 POTASSIUM 4.7 mmol/L Range: 3.5-5.1 CHLORIDE 103 mmol/L Range: 98-110 CARBON DIOXIDE 31.5 mmol/L Range: 23.0-33.0 ANION GAP 8 mmol/L Range: 6-16 BUN 36 mg/dL (Above high threshold) Range: 7-18 CREATININE, SERUM 1.75 mg/dL (Above high threshold) Range: 0.55-1.02 BUN:CREATININE RATIO 21 EST GFR, 33 ml/min (Below low threshold) Range: >60 EST GFR, NON-AFR MALTESE 28 ml/min (Below low threshold) Range: >60 Comments: EST GFR is reported in ml/min per 1.73 m2 of body surface area. ----- GLUCOSE 126 mg/dL (Above high threshold) Range: 70-100 ALK PHOSPHATASE 65 U/L Range: 46-116 TOTAL BILIRUBIN 0.20 mg/dL Range: 0.20-1.00 AST 42 U/L (Above high threshold) Range: 8-35 ALT 27 U/L Range: 14-59 ALBUMIN 2.9 g/dL (Below low threshold) Range: 3.4-5.0 TOTAL PROTEIN 5.8 g/dL (Below low threshold) Range: 6.4-8.2 A/G RATIO 1.0 units Range: 1.0-1.8 CALCIUM 8.5 mg/dL Range: 8.5-10.1 10:11 Iron Panel with TIBC 1612 IRON 22 ug/dL (Below low threshold) Range: 50-170 TOTAL IRON BIND. CAPACITY 375 ug/dL Range: 250-450 % IRON SATURATION 6 % (Below low threshold) Range: 20-55 10:11 PHOSPHORUS 1145 PHOSPHORUS 4.6 mg/dL Range: 2.6-4.7 10:11 Manual Differential 7400 Comments: Fastin hours SEGS 78 % Range: 37-80 BANDS 3 % Range: 0-7 LYMPH 7 % (Below low threshold) Range: 13-50 MONO 5 % Range: 0-12 EOSIN 5 % Range: 0-7 BASO 0 % Range: 0-3 JA LYMPH 0 % Range: 0-0 META 0 % Range: 0-0 MYELO 2 % (Above high threshold) Range: 0-0 PRO 0 % Range: 0-0 BLAST 0 % Range: 0-0 NUC RBC 20 /100 WBC (Above high threshold) Range: 0-0 SMUDGE 0 /100 WBC PLATELET Adequate Range: Adequate ANISO Mod MACROCYT Mod HYPOCHRO Mod POLYCHRO Slight TARGET Present OVAL Present TEAR Present 10:12 CBC w/ Auto Diff 7150 Comments: Critical result called to Latha by Maria G Mcduffie on 08/25/2016 at 10:16 AM (HGB) Fastin hours WBC 14.1 Revised K/uL (Above high threshold) Range: 4.5-11.0 Comments: DKP corrected WBC from 16.93 to 14.1.----- RBC 1.86 mil/uL (Below low threshold) Range: 3.60-5.00 HGB 6.2 g/dL (Low alert) Range: 12.0-16.0 HCT 21.1 % (Below low threshold) Range: 36.0-48.0 MCV 113.4 fL (Above high threshold) Range: 80.0-99.0 MCH 33.1 pg (Above high threshold) Range: 27.3-32.5 MCHC 29.2 % (Below low threshold) Range: 32.0-36.0 RDW 22.1 % (Above high threshold) Range: 11.6-14.8 PLATELETS 210 K/uL Range: 150-400 MPV 10.6 fL Range: 6.0-11.0 10:58 THYROID STIM. HORMONE 3602 Comments: Fastin hours THYROID STIM. HORMONE 19.957 uIU/mL (Above high threshold) Range: 0.550- 4.780 Comments: Verified by Repeat AnalysisNo established reference ranges for infants and children <2 years of age----- 02-Sep-2016 09:22 HEMOGRAM 7305 WBC 10.8 K/uL Range: 4.5-11.0 RBC 2.98 mil/uL (Below low threshold) Range: 3.60-5.00 HGB 9.5 g/dL (Below low threshold) Range: 12.0-16.0 Comments: Variance from previous testing noted.----- HCT 31.4 % (Below low threshold) Range: 36.0-48.0 MCV 105.5 fL (Above high threshold) Range: 80.0-99.0 MCH 32.0 pg Range: 27.3-32.5 MCHC 30.4 % (Below low threshold) Range: 32.0-36.0 PLATELETS 234 K/uL Range: 150-400 09:39 RENAL PROFILE 1240 SODIUM 146 mmol/L (Above high threshold) Range: 133-144 POTASSIUM 4.4 mmol/L Range: 3.5-5.1 CHLORIDE 105 mmol/L Range: 98-110 CARBON DIOXIDE 34.4 mmol/L (Above high threshold) Range: 23.0-33.0 ANION GAP 7 mmol/L Range: 6-16 BUN 24 mg/dL (Above high threshold) Range: 7-18 CREATININE, SERUM 1.69 mg/dL (Above high threshold) Range: 0.55-1.02 EST GFR, 35 ml/min (Below low threshold) Range: >60 EST GFR, NON-AFR MALTESE 29 ml/min (Below low threshold) Range: >60 Comments: EST GFR is reported in ml/min per 1.73 m2 of body surface area. ----- BUN:CREATININE RATIO 14 GLUCOSE 103 mg/dL (Above high threshold) Range: 70-100 ALBUMIN 3.2 g/dL (Below low threshold) Range: 3.4-5.0 PHOSPHORUS 3.1 mg/dL Range: 2.6-4.7 CALCIUM 9.4 mg/dL Range: 8.5-10.1 08-Sep-2016 11:51 CBC w/ Auto Diff 7150 Comments: SIGNED ORDER FILED IN OFFICECorrected for NRBCManual differential indicated. WBC 11.3 K/uL (Above high threshold) Range: 4.5-11.0 Comments: Result amended from (13.3) (09/08/2016 11:23 AM) to (11.3) by [facility].---- - RBC 3.58 mil/uL (Below low threshold) Range: 3.60-5.00 HGB 11.3 g/dL (Below low threshold) Range: 12.0-16.0 Comments: Variance from previous testing noted.----- HCT 38.5 % Range: 36.0-48.0 MCV 107.5 fL (Above high threshold) Range: 80.0-99.0 MCH 31.6 pg Range: 27.3-32.5 MCHC 29.4 % (Below low threshold) Range: 32.0-36.0 RDW 19.7 % (Above high threshold) Range: 11.6-14.8 PLATELETS 243 K/uL Range: 150-400 MPV 9.9 fL Range: 6.0-11.0 11:25 RETICULOCYTE PANEL 7620 Comments: SIGNED ORDER FILED IN OFFICE %RETIC 4.8 % (Above high threshold) Range: 0.6-2.6 ABSOLUTE RETIC COUNT 173 mil/L (Above high threshold) Range: 18-158 RBC 3.58 mil/uL (Below low threshold) Range: 3.60-5.00 11:40 Comprehensive Metabolic Panel 1212 Comments: SIGNED ORDER FILED IN OFFICE SODIUM 143 mmol/L Range: 133-144 POTASSIUM 4.5 mmol/L Range: 3.5-5.1 CHLORIDE 102 mmol/L Range: 98-110 CARBON DIOXIDE 34.0 mmol/L (Above high threshold) Range: 23.0-33.0 ANION GAP 7 mmol/L Range: 6-16 BUN 26 mg/dL (Above high threshold) Range: 7-18 CREATININE, SERUM 1.52 mg/dL (Above high threshold) Range: 0.55-1.02 BUN:CREATININE RATIO 17 EST GFR, 39 ml/min (Below low threshold) Range: >60 EST GFR, NON-AFR MALTESE 32 ml/min (Below low threshold) Range: >60 Comments: EST GFR is reported in ml/min per 1.73 m2 of body surface area. ----- GLUCOSE 119 mg/dL (Above high threshold) Range: 70-100 ALK PHOSPHATASE 111 U/L Range: 46-116 TOTAL BILIRUBIN 0.40 mg/dL Range: 0.20-1.00 AST 34 U/L Range: 8-35 ALT 19 U/L Range: 14-59 ALBUMIN 3.4 g/dL Range: 3.4-5.0 TOTAL PROTEIN 6.6 g/dL Range: 6.4-8.2 A/G RATIO 1.1 units Range: 1.0-1.8 CALCIUM 8.8 mg/dL Range: 8.5-10.1 11:40 LDH 1140 Comments: SIGNED ORDER FILED IN OFFICE LDH 451 U/L (Above high threshold) Range: 81-234 11:52 Manual Differential 7400 Comments: SIGNED ORDER FILED IN OFFICE SEGS 65 % Range: 37-80 BANDS 0 % Range: 0-7 LYMPH 22 % Range: 13-50 MONO 6 % Range: 0-12 EOSIN 7 % Range: 0-7 BASO 0 % Range: 0-3 JA LYMPH 0 % Range: 0-0 META 0 % Range: 0-0 MYELO 0 % Range: 0-0 PRO 0 % Range: 0-0 BLAST 0 % Range: 0-0 NUC RBC 17 /100 WBC (Above high threshold) Range: 0-0 SMUDGE 0 /100 WBC PLATELET Adequate Range: Adequate MACROCYT Marked HYPOCHRO Marked POLYCHRO Mod TARGET Present OVAL Present BASO STIP Present HJ BODIES Present 09-Sep-2016 12:58 Haptoglobin [id number] Comments: SIGNED ORDER FILED IN OFFICETesting performed at: [DA] [email or web address], [address], , Financial Recording Clerk: KEILA Carranza MD HAPTOGLOBIN 189 mg/dL Range: 34-200 15:56 VIVIAN PE and FLC Serum [id number] Comments: SIGNED ORDER FILED IN OFFICETesting performed at: [DA] [facility], [address] [place] [address], [phone], , Financial Recording Clerk: KEILA Carranza MD IMMUNOGLOBULIN G, QN, SERUM 285 mg/dL (Below low threshold) Range: 700- 1600 IMMUNOGLOBULIN A, QN, SERUM 26 mg/dL (Below low threshold) Range: 64-422 IMMUNOGLOBULIN M, QN, SERUM <5 mg/dL (Below low threshold) Range: 26-217 Comments: Verified by repeat analysis----- PROTEIN, TOTAL, SERUM 5.9 g/dL (Below low threshold) Range: 6.0-8.5 ALBUMIN 3.4 g/dL Range: 2.9-4.4 VZAKT-1-PWZHXMQX 0.4 g/dL Range: 0.0-0.4 HZAFH-0-FNTVULRN 0.9 g/dL Range: 0.4-1.0 BETA GLOBULIN 0.9 g/dL Range: 0.7-1.3 GAMMA GLOBULIN 0.3 g/dL (Below low threshold) Range: 0.4-1.8 M-SPIKE Not Observed g/dL Range: Not Observed GLOBULIN, TOTAL 2.5 g/dL Range: 2.2-3.9 A/G RATIO 1.4 Range: 0.7-1.7 IMMUNOFIXATION RESULT, SERUM Comment Comments: An apparent normal immunofixation pattern.----- PLEASE NOTE: Comment Comments: Protein electrophoresis scan will follow via computer,mail, or tractor crane engineer delivery.----- FREE KAPPA LT CHAINS,S 12.85 mg/L Range: 3.30-19.40 FREE LAMBDA LT CHAINS,S 11.03 mg/L Range: 5.71-26.30 KAPPA/LAMBDA RATIO,S 1.17 Range: 0.26-1.65 Plan of Care Name Dates Details Planned Observations Planned Goals not documented Planned Encounters Appointment; Provider: Stefan Streeter M.D. On 19-Mar-2017 14:00 Appointment; Provider: Krunal Lennon M.D. On 04-Nov-2016 13:45 Appointment; Provider: Krunal Lennon M.D. On 03-Oct-2016 10:00 Appointment; Provider: Chapito Muro On 29-Sep-2016 11:45 Instructions Name Dates Details Instructions not documented [...]
--- OUTSIDE RECORDS SUMMARY | 2017-02-26 16:11 | XMS REPORT | Summary of Care ---
Author Author Krunal Lennon M.D. Unknown Address Unknown Phone Unavailable Care Team Providers Care Financial Reporting Advisor Name Role Phone Cece Streeter M.D. Unavailable Unavailable Chapito Muro Unavailable Unavailable Henry Mendoza M.D. 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) Status: Active Postmenopausal (V49.81, Z78.0) Status: Active Screening (V82.9, Z13.9) Status: Active Rotator cuff syndrome of left shoulder and allied disorders (726.10, M75.102) Status: Active Anemia, due to inadequate iron intake (280.1, D50.8) Status: Active Generalized edema (782.3, R60.1) Status: Active Dyspnea on exertion (786.09, R06.09) Status: Active Shoulder pain, left (719.41, M25.512) Status: Active Rotator cuff syndrome, left (726.10, M75.102) Status: Active Shoulder pain, right (719.41, M25.511) Status: Active Rotator cuff syndrome, right (726.10, M75.101) Status: Active Chronic kidney disease, stage III (moderate) (585.3, N18.3) Status: Active Hip pain, acute, right (719.45, [...] Hyperkalemia (276.7, E87.5) Status: Active Hypercholesteremia (272.0, E78.0) Status: Active Congestive heart failure (428.0, I50.9) Status: Active Mixed incontinence (788.33, N39.46) Status: Active Peripheral neuropathy (356.9, G62.9) Status: Active Coronary arteriosclerosis (414.00, I25.10) Status: Active Hypertension (401.9, I10) Status: Active Essential hypertension (401.9, I10) Status: Active CKD (chronic kidney disease) stage 3, GFR 30-59 ml/min (585.3, N18.3) Status: Active Anemia of renal disease (285.21, D63.1) Status: Active Seasonal allergies (477.9, J30.2) Status: Active Medications Name Dates Details Multi-Day [...] 30 MINUTES. * Quantity: 12 Refills: 3 Bhaskar Chapito * Start 06-Feb-2016 Active Budesonide 0.5 MG/2ML Inhalation Suspension USE 1 UNIT DOSE VIA NEBULIZER TWO TIMES A DAY (dx:J44.9) * Quantity: 120 Refills: 11 Stefan Streeter M.D. * Start 01-Nov-2015 Active DULoxetine HCl - 60 MG Oral Capsule Delayed Release Particles TAKE 1 CAPSULE AT BEDTIME. * Quantity: 30 Refills: 3 Chapito Muro * Start 10-Oct-2013 Active Pantoprazole Sodium 40 MG Oral Tablet [...] 0 Chapito Muro * Start Active Furosemide 20 MG Oral Tablet TAKE 1 TABLET DAILY NEEDED. * Quantity: 30 Refills: 3 Chapito Muro * Start Active LORazepam 0.5 [...] 1 TABLET DAILY. * Refills: 0 Chapito Muor * Start 09-Jul-2016 Active Digoxin 125 MCG Oral Tablet Take one tablet by mouth daily * Refills: 0 Chapito Muro * Start 09-Jul-2016 Active Fluticasone Propionate 50 MCG/ACT Nasal Suspension USE 1 SPRAY IN EACH NOSTRIL ONCE DAILY NEEDED FOR ALLERGY SYMPTOMS * Quantity: 1 Refills: 3 Chapito Muro * Start 09-Jul-2016 Active Allergies and Adverse Reactions Name Dates Details Ceftin TABS (Allergy) Status: Active Cefuroxime Axetil TABS (Allergy) Status: Active Past Medical History Name Dates Details Anemia of renal disease (285.21, D63.1) Status: Active Asthma (493.90, J45.909) Status: Active Chronic obstructive pulmonary disease (496, J44.9) Status: Active CKD (chronic kidney disease), stage IV (585.4, N18.4) Status: Active Congestive heart failure (428.0, I50.9) Status: Active History of aortic valve replacement with bioprosthetic valve (V42.2, Z95.4) Status: Active Hypercholesteremia (272.0, E78.0) Status: Active Hyperlipidemia (272.4, E78.5) Status: Active [...] Aortic Valve Replacement LIPID PROFILE 1184 Ordered: THYROID STIM. HORMONE 3602 Ordered: CBC w/ Auto Diff 7150 Ordered: Comprehensive Metabolic Panel 1212 Ordered: Comprehensive Metabolic Panel 1212 Ordered: 24-Jun-2016 CBC w/ Auto Diff 7150 Ordered: 24-Jun-2016 Cortisol - AM [id number] Ordered: 09-Jul-2016 Immunization Name Dates Details Influenza Lot #: [id number] on: 02-Aug-2010 Influenza Lot #: [id number] on: 24-Aug-2012 Pneumo (Pneumovax) Lot #: [id number] on: 24-Aug-2012 Fluzone High-Dose 0.5 ML Intramuscular Suspension Prefilled Syringe Lot #: [id number] on: 25-Jul-2015 Tdap (Adacel) Lot #: [id number] on: 05-Nov-2015 Family History Name Dates Details [...] smoker Vital Signs Date Test Result Details 09-Jul-2016 15:54 BP Systolic 98 mm[Hg] Status: Comments: Location: ; Position: BP Diastolic 62 mm[Hg] Status: Comments: Location: ; Position: Heart Rate 67 /min Status: Comments: Location: ; Height 63 in Status: Weight 116 lb Status: Physical Findings 96 Status: Comments: O2 Saturation FiO2 flow rate 2 L/min Status: Body Mass Index Calculated 20.55 kg/m2 Status: Body Surface Area Calculated 1.53 m2 Status: Results Date Description Value Details 03-Jul-2016 11:40 CBC w/ Auto Diff 7150 Comments: ORDER IN BOOK UNDER WBC 11.1 K/uL (Above high threshold) Range: 4.5-11.0 RBC 3.26 mil/uL (Below low threshold) Range: 3.60-5.00 HGB 10.1 g/dL (Below low threshold) Range: 12.0-16.0 HCT 33.5 % (Below low threshold) Range: 36.0-48.0 MCV 102.9 fL (Above high threshold) Range: 80.0-99.0 MCH 31.0 pg Range: 27.3-32.5 MCHC 30.2 % (Below low threshold) Range: 32.0-36.0 RDW 18.8 % (Above high threshold) Range: 11.6-14.8 PLATELETS 211 K/uL Range: 150-400 MPV 9.2 fL Range: 6.0-11.0 %NEUTRO 64.3 % Range: 37.0-80.0 %LYMPHS 18.2 % Range: 13.0-50.0 %MONO 5.9 % Range: 0.0-12.0 %EOS 8.6 % (Above high threshold) Range: 0.0-7.0 %BASO 0.7 % Range: 0.0-2.5 %HALIMA 2.3 % Range: 0.0-5.0 NEUTRO 7.1 K/uL (Above high threshold) Range: 2.0-6.9 LYMPHS 2.0 K/uL Range: 0.6-3.4 MONOS 0.7 K/uL Range: 0.0-0.9 EOS 1.0 K/uL (Above high threshold) Range: 0.0-0.7 BASO 0.1 K/uL Range: 0.0-0.2 11:44 RETICULOCYTE PANEL 7620 Comments: ORDER IN BOOK UNDER %RETIC 7.0 % (Above high threshold) Range: 0.6-2.6 ABSOLUTE RETIC COUNT 226 mil/L (Above high threshold) Range: 18-158 RBC 3.26 mil/uL (Below low threshold) Range: 3.60-5.00 12:02 Comprehensive Metabolic Panel 1212 Comments: ORDER IN BOOK UNDER SODIUM 143 mmol/L Range: 133-144 POTASSIUM 4.7 mmol/L Range: 3.5-5.1 CHLORIDE 104 mmol/L Range: 98-110 CARBON DIOXIDE 34.6 mmol/L (Above high threshold) Range: 23.0-33.0 ANION GAP 4 mmol/L (Below low threshold) Range: 6-16 BUN 46 mg/dL (Above high threshold) Range: 7-18 CREATININE, SERUM 1.55 mg/dL (Above high threshold) Range: 0.55-1.02 BUN:CREATININE RATIO 30 EST GFR, 39 ml/min (Below low threshold) Range: >60 EST GFR, NON-AFR GIBRALTARIAN 32 ml/min (Below low threshold) Range: >60 Comments: EST GFR is reported in ml/min per 1.73 m2 of body surface area. ----- GLUCOSE 119 mg/dL (Above high threshold) Range: 70-100 ALK PHOSPHATASE 91 U/L Range: 46-116 TOTAL BILIRUBIN 0.40 mg/dL Range: 0.20-1.00 AST 24 U/L Range: 8-35 ALT 15 U/L Range: 14-59 ALBUMIN 3.2 g/dL (Below low threshold) Range: 3.4-5.0 TOTAL PROTEIN 6.1 g/dL (Below low threshold) Range: 6.4-8.2 A/G RATIO 1.1 units Range: 1.0-1.8 CALCIUM 9.2 mg/dL Range: 8.5-10.1 12:02 LDH 1140 Comments: ORDER IN BOOK UNDER LDH 345 U/L (Above high threshold) Range: 81-234 12:06 VITAMIN B12 3606 Comments: ORDER IN BOOK UNDER VITAMIN B12 524 pg/mL Range: 211-911 04-Jul-2016 12:21 Haptoglobin [id number] Comments: ORDER IN BOOK UNDER Testing performed at: [DA] [facility], [address] [place] [address], [phone], , Sewing Machine Mechanic: KEILA Carranza MD HAPTOGLOBIN 215 mg/dL (Above high threshold) Range: 34-200 05-Jul-2016 09:28 VIVIAN PE and [facility] Serum [id number] Comments: ORDER IN BOOK UNDER Test performed at: [DA] [facility], [address] [place] [address] , [place], [address], , Sewing Machine Mechanic: KEILA Carranza MD IMMUNOGLOBULIN G, QN, SERUM 548 mg/dL (Below low threshold) Range: 700- 1600 IMMUNOGLOBULIN A, QN, SERUM 25 mg/dL (Below low threshold) Range: 64-422 IMMUNOGLOBULIN M, QN, SERUM <5 mg/dL (Below low threshold) Range: 26-217 Comments: Verified by repeat analysis----- PROTEIN, TOTAL, SERUM 5.7 g/dL (Below low threshold) Range: 6.0-8.5 ALBUMIN 3.0 g/dL Range: 2.9-4.4 EMEDS-1-YUOEJWLI 0.4 g/dL Range: 0.0-0.4 SWDAQ-9-KAQCNUUT 0.9 g/dL Range: 0.4-1.0 BETA GLOBULIN 1.0 g/dL Range: 0.7-1.3 GAMMA GLOBULIN 0.5 g/dL Range: 0.4-1.8 M-SPIKE Not Observed g/dL Range: Not Observed GLOBULIN, TOTAL 2.7 g/dL Range: 2.2-3.9 A/G RATIO 1.2 Range: 0.7-1.7 IMMUNOFIXATION RESULT, SERUM Comment Comments: An apparent normal immunofixation pattern.----- PLEASE NOTE: Comment Comments: Protein electrophoresis scan will follow via computer,mail, or plastic shaper delivery.----- FREE KAPPA LT CHAINS,S 15.27 mg/L Range: 3.30-19.40 FREE LAMBDA LT CHAINS,S 12.11 mg/L Range: 5.71-26.30 KAPPA/LAMBDA RATIO,S 1.26 Range: 0.26-1.65 Plan of Care Name Dates Details Planned Observations Planned Goals not documented Planned Encounters Appointment; Provider: Chapito Muro On 25-Aug-2016 15:30 Appointment; Provider: Stefan Streeter M.D. On 25-Aug-2016 13:15 Appointment; Provider: Bruce Saunders M.D. On 22-Jul-2016 11:15 Appointment; Provider: Ry Maurer M.D. On 18-Jul-2016 13:15 Appointment; Provider: Krunal Lennon M.D. On 14-Jul-2016 15:15 Instructions Name Dates Details Instructions not documented [...] documented On 07-Nov-2014 13:30 Appointment; Krunal Lennon M.D. Encounter Diagnosis: Problem not documented On 22-Aug-2014 15:00 Appointment; Aidee Wilson A.P.R.N. Encounter Diagnosis: Problem not documented On 15-Aug-2014 14:30
--- OUTSIDE RECORDS SUMMARY | 2017-02-26 16:12 | XMS REPORT ---
Author Author GENERATED, SYSTEM Organization Unknown Address Unknown Phone Unavailable Care Team Providers Care Mobility Engineer Name Role Phone MD CORTEZ, [facility] [phone] Reason For Visit Reason for Visit from 08/27/2016 7:27 AM:* Pt Stated Reason for Adm : EGD Chief Complaint MELENA, ANEMIA,EGD Social History Social History from 08/27/2016 9:46 AM:* Tobacco Use? : Never Smoker Social History from 08/27/2016 7:27 AM:* Tobacco Use? : Never Smoker Functional Status Functional Status from 08/27/2016 9:13 AM:* LOC : Alert Functional Status from 08/27/2016 7:27 AM:* LOC : Alert * Weight Bearing Status : Full * Assist Level : Independent * # Assists : Independent Vital Signs Hospital Vital Signs from 08/27/2016 10:15 AM:* Height : 5/0 ft,in * Temperature : 97.8 F * Pulse : 60 * Respirations : 22 * BP : 127/69 Hospital Vital Signs from 08/27/2016 10:00 AM:* Height : 5/0 ft,in * Pulse : 63 * Respirations : 22 * BP : 138/60 Hospital Vital Signs from 08/27/2016 9:45 AM:* Height : 5/0 ft,in * Pulse : 60 * Respirations : 20 * BP : 135/93 Hospital Vital Signs from 08/27/2016 9:34 AM:* Height : 5/0 ft,in * Pulse : 60 * Respirations : 22 * BP : 136/69 Hospital Vital Signs from 08/27/2016 9:16 AM:* Height : 5/0 ft,in * Temperature : 98 F * Pulse : 62 * Respirations : 20 * BP : 106/61 Hospital Vital Signs from 08/27/2016 7:45 AM:* Weight : 49.9/ kg * Height : 5/0 ft,in * Temperature : 98.3 F * Pulse : 61 * Respirations : 16 * BP : 131/83 Hospital Vital Signs from 08/27/2016 7:27 AM:* Weight : 49.9/ kg * Height : 5/0 ft,in Results Problems Encounter Diagnosis * Fall Risk Status:Active. * Skin Integrity Impairment Risk Status:Active. Additional Problems * Acute Pain Comment:Problem resolved by [facility] Workflow upon Discharge, Status :Resolved. * Anemia Comment:Problem resolved by [facility] Workflow upon Discharge, Status: Resolved. * Chest Pain Comment:Problem resolved by [facility] Workflow upon Discharge, Status :Resolved. * Chronic Kidney Disease, Stage 3 Comment:Problem resolved by [facility] Workflow upon Discharge, Status:Resolved. * Chronic Obstructive Lung Disease Comment:Problem resolved by [facility] Workflow upon Discharge, Status:Resolved. * Diastolic Heart Failure Comment:Problem resolved by [facility] Workflow upon Discharge, Status:Resolved. * Hypertensive Disorder Comment:Problem resolved by [facility] Workflow upon Discharge, Status:Resolved. * Macrocytic Anemia Comment:Problem resolved by [facility] Workflow upon Discharge , Status:Resolved. * Mobility Impairment Comment:Problem resolved by [facility] Workflow upon Discharge, Status:Resolved. * Mobility Impairment Comment:Problem resolved by [facility] Workflow upon Discharge, Status:Resolved. Encounters Encounter Diagnosis * Fall Risk Status:Active. * Skin Integrity Impairment Risk Status:Active. Plan of Care Follow-up Appointments from 08/27/2016 9:46 AM:* #1 Office appointment: : Dr. Maurer * #1 Date/Time : 09/02/2016 1:45 PM * Address # 1 : [facility]: [address] [place] [address] [phone] or Procedures * Completed Esophagogastroduodenoscopy, by MD ROOSEVELT MAURER, on 08/27/2016 8 :57 AM * Completed Procedure Code: [id number] Procedure Name: not valued, on 07/30/2016 9: 59 AM * Completed Procedure Code: [id number] Procedure Name: not valued, on 07/30/2016 9: 59 AM * Completed Esophagogastroduodenoscopy with control of bleeding, by MD ROOSEVELT MAURER, on 07/30/2016 9:21 AM * Completed Procedure Code: 4453630 Procedure Name: not valued, on 07/21/2016 12 :00 AM * Completed Procedure Code: 22424 Procedure Name: not valued, on 07/21/2016 12: 00 AM * Completed Procedure Code: 39614 Procedure Name: not valued, on 07/21/2016 12: 00 AM * Completed Procedure Code: 61228N1 Procedure Name: not valued, on 06/21/2016 12 [...] to care for yourself at home from 08/27/2016 9:46 AM:* Discharge Activity : Activity as tolerated,Do not engage in sports, heavy work or heavy lifting until your physician gives permission * Discharge Diet : Diet as tolerated * Call your doctor if: : Fever over 101 F or severe chills,Chest pain or other unexplained symptoms,Tingling or numbness develops,A sudden increase or decrease in weight,You have persistent or worsening symptoms,If you have Heart Failure and you gain 3 pounds within 1 week or your symptoms worsen. (Weigh at home tomorrow morning) * Specific Discharge Teaching Instructions provided: : No * Discharge on Warfarin : No Allergies, Adverse Reactions, Alerts * cefuroxine causes Unknown. * Ceftin causes Unknown. * No Latex Allergy. * No IV Contrast Allergy. * No Known Food Allergies. Medication Medication reconciliation has not been performed.
--- OUTSIDE RECORDS SUMMARY | 2017-02-26 16:12 | XMS REPORT ---
Author Author GENERATED, SYSTEM Organization Unknown Address Unknown Phone Unavailable Care Team Providers Care Laborer Poultry Hatchery Name Role Phone MD CORTEZ, [facility] [phone] Reason For Visit Reason for Visit from 09/15/2016 11:05 AM:* Pt Stated Reason for Adm : IVIG infusion Chief Complaint CVID D83.8 Social History Functional Status Functional Status from 09/15/2016 11:05 AM:* LOC : Alert * Oriented To : Person,Place,Time,Event Vital Signs Hospital Vital Signs from 09/15/2016 2:35 PM:* Height : 5/0 ft,in * Pulse : 60 * Respirations : 18 * BP : 142/65 Hospital Vital Signs from 09/15/2016 2:25 PM:* Height : 5/0 ft,in * Temperature : 96.9 F * Pulse : 61 * Respirations : 18 * BP : 159/69 Hospital Vital Signs from 09/15/2016 2:05 PM:* Height : 5/0 ft,in * Pulse : 59 * Respirations : 18 * BP : 141/82 Hospital Vital Signs from 09/15/2016 1:50 PM:* Height : 5/0 ft,in * Pulse : 60 * Respirations : 18 * BP : 135/65 Hospital Vital Signs from 09/15/2016 1:35 PM:* Height : 5/0 ft,in * Pulse : 60 * Respirations : 18 * BP : 107/56 Hospital Vital Signs from 09/15/2016 1:20 PM:* Height : 5/0 ft,in * Pulse : 60 * Respirations : 18 * BP : 107/58 Hospital Vital Signs from 09/15/2016 1:05 PM:* Height : 5/0 ft,in * Pulse : 60 * Respirations : 18 * BP : 109/53 Hospital Vital Signs from 09/15/2016 12:50 PM:* Height : 5/0 ft,in * Pulse : 60 * Respirations : 18 * BP : 135/60 Hospital Vital Signs from 09/15/2016 12:35 PM:* Height : 5/0 ft,in * Pulse : 59 * Respirations : 18 * BP : 149/67 Hospital Vital Signs from 09/15/2016 12:20 PM:* Height : 5/0 ft,in * Pulse : 60 * Respirations : 18 * BP : 123/63 Hospital Vital Signs from 09/15/2016 12:05 PM:* Height : 5/0 ft,in * Pulse : 60 * Respirations : 18 * BP : 123/61 Hospital Vital Signs from 09/15/2016 11:50 AM:* Height : 5/0 ft,in * Pulse : 62 * Respirations : 18 * BP : 168/74 Hospital Vital Signs from 09/15/2016 11:35 AM:* Height : 5/0 ft,in * Pulse : 60 * Respirations : 18 * BP : 140/67 Hospital Vital Signs from 09/15/2016 11:05 AM:* Weight : 108/ lbs,oz * Height : 5/0 ft,in * Height : 5/0 ft,in * Temperature : 97.2 F * Pulse : 64 * Respirations : 18 * BP : 136/68 Results Chemistry from 09/15/2016 11:18 AMCREATININE 1.81 MG/DL H (0.55-1.02 MG/DL) *GFR EST NON AFR CITIZEN OF [place] 25 ML/MIN *GFR EST AFR AMER 29 ML/MIN Problems Encounter Diagnosis No relevant problems exist. Additional Problems * Acute Pain Comment:Problem resolved [...] by [facility] Workflow upon Discharge, Status:Resolved. * Fall Risk Comment:Problem resolved by [facility] Workflow upon Discharge, Status: Resolved. * Fall Risk Comment:Problem resolved by [facility] Workflow upon Discharge, Status: Resolved. * Fall Risk Comment:Problem resolved by [facility] Workflow upon Discharge, Status: Resolved. * Fall Risk Comment:Problem resolved by [facility] Workflow upon Discharge, Status: Resolved. * Fall Risk Comment:Problem resolved by [facility] Workflow upon Discharge, Status: Resolved. * Hypertensive Disorder Comment:Problem resolved by [facility] Workflow upon Discharge, Status:Resolved. * Macrocytic Anemia Comment:Problem resolved by [facility] Workflow upon Discharge , Status:Resolved. * Mobility Impairment Comment:Problem resolved by [facility] Workflow upon Discharge, Status:Resolved. * Mobility Impairment Comment:Problem resolved by [facility] Workflow upon Discharge, Status:Resolved. * Skin Integrity Impairment Risk Comment:Problem resolved by [facility] Workflow upon Discharge, Status:Resolved. Encounters Encounter Diagnosis No relevant problems exist. Plan of Care Procedures * Completed Esophagogastroduodenoscopy, by MD ROOSEVELT DIAZ, on 08/27/2016 8 :57 AM * Completed Procedure Code: 1545549 Procedure Name: not valued, on 08/27/2016 12 :00 AM * Completed Procedure Code: 18148 Procedure Name: not valued, on 08/27/2016 12: 00 AM * Completed Procedure Code: 3Q9P0UN Procedure Name: not valued, on 07/30/2016 9: 59 AM * Completed Procedure Code: [id number] Procedure Name: not valued, on 07/30/2016 9: 59 AM * Completed Esophagogastroduodenoscopy with control of bleeding, by MD ROOSEVELT DIAZ, on 07/30/2016 9:21 AM * Completed Procedure Code: 9430360 Procedure Name: not valued, on 07/21/2016 12 :00 AM * Completed Procedure Code: 59922 Procedure Name: not valued, on 07/21/2016 12: 00 AM * Completed Procedure Code: 24961 Procedure Name: not valued, on 07/21/2016 12: 00 AM * Completed Procedure Code: 68255R4 Procedure Name: not valued, on 06/21/2016 12 [...]
--- OUTSIDE RECORDS SUMMARY | 2017-02-26 16:12 | XMS REPORT | Summary of Care ---
Author Author Krunal Lennon M.D. Unknown Address [address] [place], [place] [id number] Phone Unavailable Care Team Providers Care Sap Gatherer Name Role Phone Ferdinand Hammonds, Cece Unavailable Unavailable Chapito Muro Unavailable Unavailable Reji Hammonds, T. KLinda Unavailable Unavailable Reta Hammonds, R Unavailable Unavailable Sony Muro PP Unavailable Unavailable [...] Status: Active Anemia (285.9, D64.9) Status: Active Dyspnea on exertion (786.09, R06.09) Status: Active Anemia of renal disease (285.21, D63.1) Status: Active CKD (chronic kidney disease), stage III (585.3, N18.3) Status: Active Essential hypertension (401.9, I10) Status: Active Hypercholesteremia (272.0, E78.0) Status: Active Congestive heart failure (428.0, I50.9) Status: Active CKD (chronic kidney disease), stage IV (585.4, N18.4) Status: Active Non-Hodgkin's lymphoma (202.80, C85.90) Status: Active Chronic obstructive pulmonary disease (496, J44.9) Status: Active Chronic pain of both shoulders (719.41, M25.512) Status: Active Postmenopausal (V49.81, Z78.0) Status: Active Screening (V82.9, Z13.9) Status: Active Rotator cuff syndrome of left shoulder and allied disorders (726.10, M75.102) Status: Active Rotator cuff impingement syndrome of right shoulder (726.10, M75.101) Status: Active Shoulder pain, left (719.41, M25.512) Status: Active Rotator cuff syndrome, left (726.10, M75.102) Status: Active 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, 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 Anemia, due to inadequate iron intake (280.1, D50.8) Status: Active CKD (chronic kidney disease) stage 3, GFR 30-59 ml/min (585.3, N18.3) Status: Active Generalized edema (782.3, R60.1) Status: Active Medications Name Dates Details Multi-Day Vitamins Oral Tablet I po qd * Started 07-Jun-2009 ActiveROPINIRole HCl - 1 MG Oral Tablet TAKE ONE TABLET BY MOUTH EVERY NIGHT AT BEDTIME * Quantity: 90 Refills: 0 Raphael Mcduffie M.D.* Started 31-Aug-2009 ActiveOxygen 2 LPM 24 HOURS [...] Refills: 3 Stefan Streeter M.D.* Started 10-Oct-2013 ActiveAcetaminophen-Codeine 300-30 MG Oral Tablet TAKE 1 TABLET EVERY 6 HOURS NEEDED FOR PAIN. Must last 30 days * Quantity: 120 Refills: 0 Chapito Muro * Started 07-Nov-2014 ActivePotassium Chloride Summer ER 10 MEQ Oral [...] Refills: 3 Chapito Muro * Started 15-Aug-2014 ActiveLORazepam 0.5 MG Oral Tablet TAKE 1 TABLET 3 TIMES DAILY NEEDED * Quantity: 90 Refills: 0 Chapito Muro * Started 15-Aug-2014 ActiveFurosemide 40 MG Oral Tablet take one tablet in the morning and 1/2 tablet in the afternoon * Quantity: 45 Refills: 5 Chapito Muro * Started 07-Mar-2015 Active Allergies and Adverse Reactions Name Dates [...] Aortic Valve Replacement THYROID STIM. HORMONE 3602 Ordered:12-Nov-2015 DEXA Ordered:05-Nov-2015 MAMMOGRAM-SCREENING Ordered:05-Nov-2015 Immunization Name Dates Details Influenza Lot #: [id number] Administered on:02-Aug-2010 Influenza Lot #: [id number] Administered on:24-Aug-2012 Pneumo (Pneumovax) Lot #: [id number] Administered on:24-Aug-2012 Fluzone High-Dose 0.5 ML Intramuscular Suspension Prefilled Syringe Lot #: [id number] Administered on:25-Jul-2015 Tdap (Adacel) Lot #: [id number] Administered on:05-Nov-2015 Family History natural son* Name [...] smoker Vital Signs Date Test Result Details 25-Dec-2015 14:03 BP Systolic 122 mm[Hg] Status: BP Diastolic 68 mm[Hg] Status: Heart Rate 82 /min Status: Weight 126 lb Status: Body Mass Index Calculated 22.32 kg/m2 Status: Body Surface Area Calculated 1.59 m2 Status: Results Date Description Value Details 26-Nov-2015 11:14 Comprehensive Metabolic Panel 1212 SODIUM 144 mmol/L (Better) Range: 133-144 POTASSIUM 4.2 mmol/L (Better) Range: 3.5-5.1 CHLORIDE 106 mmol/L (Better) Range: 98-110 CARBON DIOXIDE 28.9 mmol/L (Better) Range: 23.0-33.0 ANION GAP 9 mmol/L (Better) Range: 6-16 BUN 31 mg/dL (Above high threshold) Range: 7-18 CREATININE, SERUM 1.13 mg/dL (Above high threshold) Range: 0.55-1.02 Comments: Please note new reference ranges effective 2015.----- BUN:CREATININE RATIO 27 (Better) EST GFR, 56 ml/min (Below low threshold) Range: >60 EST GFR, NON-AFR [place] 46 ml/min (Below low threshold) Range: >60 Comments: EST GFR is reported in ml/min per 1.73 m2 of body surface area. For -Oman[place], please multiple result by 1.2.----- GLUCOSE 85 mg/dL (Better) Range: 70-100 ALK PHOSPHATASE 105 U/L (Better) Range: 46-116 TOTAL BILIRUBIN 0.30 mg/dL (Better) Range: 0.20-1.00 AST 39 U/L (Above high threshold) Range: 8-35 ALT 34 U/L (Better) Range: 14-59 Comments: Please note new reference ranges. Effective 01/04/2015.----- ALBUMIN 3.2 g/dL (Below low threshold) Range: 3.4-5.0 TOTAL PROTEIN 6.9 g/dL (Better) Range: 6.4-8.2 A/G RATIO 0.9 units (Below low threshold) Range: 1.0-1.8 CALCIUM 9.1 mg/dL (Better) Range: 8.5-10.1 11:14 LDH 1140 LDH 383 U/L (Above high threshold) Range: 81-234 11:16 CBC w/ Auto Diff 7150 WBC 11.0 K/uL (Better) Range: 4.5-11.0 RBC 3.30 mil/uL (Below low threshold) Range: 3.60-5.00 HGB 10.7 g/dL (Below low threshold) Range: 12.0-16.0 HCT 34.9 % (Below low threshold) Range: 36.0-48.0 MCV 105.9 fL (Above high threshold) Range: 80.0-99.0 MCH 32.5 pg (Better) Range: 27.3-32.5 MCHC 30.7 % (Below low threshold) Range: 32.0-36.0 RDW 16.2 % (Above high threshold) Range: 11.6-14.8 PLATELETS 160 K/uL (Better) Range: 150-400 MPV 10.0 fL (Better) Range: 6.0-11.0 %NEUTRO 69.5 % (Better) Range: 37.0-80.0 %LYMPHS 22.7 % (Better) Range: 13.0-50.0 %MONO 3.6 % (Better) Range: 0.0-12.0 %EOS 2.9 % (Better) Range: 0.0-7.0 %BASO 0.3 % (Better) Range: 0.0-2.5 %HALIMA 1.1 % (Better) Range: 0.0-5.0 NEUTRO 7.7 K/uL (Above high threshold) Range: 2.0-6.9 LYMPHS 2.5 K/uL (Better) Range: 0.6-3.4 MONOS 0.4 K/uL (Better) Range: 0.0-0.9 EOS 0.3 K/uL (Better) Range: 0.0-0.7 BASO 0.0 K/uL (Better) Range: 0.0-0.2 24-Dec-2015 15:01 CBC w/ Auto Diff 7150 Comments: STANDING ORDER IN BOOK WBC 13.0 K/uL (Above high threshold) Range: 4.5-11.0 RBC 3.33 mil/uL (Below low threshold) Range: 3.60-5.00 HGB 11.1 g/dL (Below low threshold) Range: 12.0-16.0 HCT 35.8 % (Below low threshold) Range: 36.0-48.0 MCV 107.4 fL (Above high threshold) Range: 80.0-99.0 MCH 33.2 pg (Above high threshold) Range: 27.3-32.5 MCHC 31.0 % (Below low threshold) Range: 32.0-36.0 RDW 15.6 % (Above high threshold) Range: 11.6-14.8 PLATELETS 172 K/uL (Better) Range: 150-400 MPV 9.7 fL (Better) Range: 6.0-11.0 %NEUTRO 74.7 % (Better) Range: 37.0-80.0 %LYMPHS 19.0 % (Better) Range: 13.0-50.0 %MONO 2.3 % (Better) Range: 0.0-12.0 %EOS 2.4 % (Better) Range: 0.0-7.0 %BASO 0.6 % (Better) Range: 0.0-2.5 %HALIMA 1.0 % (Better) Range: 0.0-5.0 NEUTRO 9.7 K/uL (Above high threshold) Range: 2.0-6.9 LYMPHS 2.5 K/uL (Better) Range: 0.6-3.4 MONOS 0.3 K/uL (Better) Range: 0.0-0.9 EOS 0.3 K/uL (Better) Range: 0.0-0.7 BASO 0.1 K/uL (Better) Range: 0.0-0.2 15:04 PHOSPHORUS 1145 PHOSPHORUS 4.4 mg/dL (Better) Range: 2.6-4.7 Comments: Please note new reference ranges effective 2015.----- 15:06 Comprehensive Metabolic Panel 1212 SODIUM 140 mmol/L (Better) Range: 133-144 POTASSIUM 4.0 mmol/L (Better) Range: 3.5-5.1 CHLORIDE 100 mmol/L (Better) Range: 98-110 CARBON DIOXIDE 31.3 mmol/L (Better) Range: 23.0-33.0 ANION GAP 9 mmol/L (Better) Range: 6-16 BUN 47 mg/dL (Above high threshold) Range: 7-18 Comments: Variance from previous testing noted.----- CREATININE, SERUM 1.48 mg/dL (Above high threshold) Range: 0.55-1.02 Comments: Please note new reference ranges effective 2015.----- BUN:CREATININE RATIO 32 (Better) EST GFR, 41 ml/min (Below low threshold) Range: >60 EST GFR, NON-AFR [place] 34 ml/min (Below low threshold) Range: >60 Comments: EST GFR is reported in ml/min per 1.73 m2 of body surface area. For -[place]man[place], please multiple result by 1.2.----- GLUCOSE 145 mg/dL (Above high threshold) Range: 70-100 Comments: Variance from previous testing noted.----- ALK PHOSPHATASE 116 U/L (Better) Range: 46-116 TOTAL BILIRUBIN 0.20 mg/dL (Better) Range: 0.20-1.00 AST 38 U/L (Above high threshold) Range: 8-35 ALT 31 U/L (Better) Range: 14-59 Comments: Please note new reference ranges. Effective 01/04/2015.----- ALBUMIN 3.1 g/dL (Below low threshold) Range: 3.4-5.0 TOTAL PROTEIN 7.1 g/dL (Better) Range: 6.4-8.2 A/G RATIO 0.8 units (Below low threshold) Range: 1.0-1.8 CALCIUM 9.2 mg/dL (Better) Range: 8.5-10.1 15:06 LDH 1140 LDH 473 U/L (Above high threshold) Range: 81-234 15:29 Parathyroid Hormone Intact 3101 Intact Parathyroid Hormone 153 pg/mL (Above high threshold) Range: 14-72 Plan of Care Planned Observations* Name Dates Details Planned Goals not documented Goal Planned Encounters* Appointment; Provider: Krunal Lennon On 13:15 * Appointment; Provider: Chapito Muro On 06-Feb-2016 13:15 * Appointment; Provider: Stefan Streeter On 31-Jan-2016 13:15 * Appointment; Provider: Schedule Radiology On 16-Jan-2016 13:40 * Appointment; Provider: Benigno Holt On 07-Jun-2012 14:00 * Appointment; Provider: Bruce Saunders On 11:45 * Appointment; Provider: Raphael Mcduffie On 11-Dec-2010 09:15 * Appointment; Provider: Mikal Felipe On 21-Mar-2008 13:15 Instructions * Instructions not documented Encounters Appointment; Krunal Lennon Encounter Diagnosis: Problem not [...] Diagnosis: Problem not documented On 15-Aug-2014 14:30 Appointment; Henry Mendoza Encounter Diagnosis: Problem not documented On 13-Jan-2014 11:30 Appointment; Stefan Streeter Encounter Diagnosis: Problem not documented On 09-Jan-2014 16:00 Appointment; Raphael Mcduffie Encounter Diagnosis: Problem not documented On 02-Jan-2014 13:45
--- OUTSIDE RECORDS SUMMARY | 2017-02-26 16:12 | XMS REPORT | Summary of Care ---
Author Author Bruce Saunders M.D. Unknown Address [address], [place] [id number] Phone Unavailable Care Team Providers Care Supervisor [employer] Name Role Phone Cece Streeter M.D. Unavailable Unavailable Chapito Muro Unavailable Unavailable Reji Hammonds, T. KLinda Unavailable Unavailable Doug Mcduffie M.D. 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 * Refills: 0 * Started 15-Aug-2014 ActiveAllopurinol [...] Refills: 1 Stefan Streeter M.D.* Started 04-Dec-2014 ActiveFurosemide 40 MG Oral Tablet take one tablet in the morning and 1/2 tablet in the afternoon * Refills: 0 Stefan Streeter M.D.* Started 07-Mar-2015 ActivePropranolol HCl - 40 MG Oral Tablet [...] Refills: 3 Chapito Muro * Started 19-Jan-2014 ActiveLORazepam 0.5 MG Oral Tablet TAKE 1 [...] Biopsy Completed: History of Aortic Valve Replacement Parathyroid Hormone Intact 3101 Ordered:22-Oct-2015 RENAL PROFILE 1240 Ordered:22-Oct-2015 HEMOGRAM 7305 Ordered:22-Oct-2015 THYROID STIM. HORMONE 3602 Ordered:12-Nov-2015 DEXA Ordered:05-Nov-2015 MAMMOGRAM-SCREENING Ordered:05-Nov-2015 Immunization Name Dates Details Influenza Lot #: [id number] Administered on:02-Aug-2010 Influenza Lot #: [id number] Administered on:24-Aug-2012 Pneumo (Pneumovax) Lot #: [id number] Administered on:24-Aug-2012 Fluzone High-Dose 0.5 ML Intramuscular Suspension Prefilled Syringe Lot #: [id number] Administered on:25-Jul-2015 Tdap (Adacel) Lot #: [id number] Administered on:05-Nov-2015 Family History natural son* Name [...] smoker Vital Signs Date Test Result Details 05-Nov-2015 14:34 BP Systolic 122 mm[Hg] Status: BP Diastolic 80 mm[Hg] Status: Heart Rate 64 /min Status: Height 63 in Status: Weight 123.375 lb Status: O2 SAT 98 % Status: FiO2 flow rate 2 L/min Status: Body Mass Index Calculated 21.86 kg/m2 Status: Body Surface Area Calculated 1.57 m2 Status: 01-Nov-2015 14:03 BP Systolic 130 mm[Hg] Status: BP Diastolic 78 mm[Hg] Status: Heart Rate 71 /min Status: Height 63 in Status: Weight 125 lb Status: O2 SAT 95 % Status: FiO2 flow rate 2 L/min Status: Body Mass Index Calculated 22.14 kg/m2 Status: Body Surface Area Calculated 1.58 m2 Status: 16-Oct-2015 13:30 BP Systolic 145 mm[Hg] Status: BP Diastolic 88 mm[Hg] Status: Heart Rate 86 /min Status: Weight 131 lb Status: Body Mass Index Calculated 23.21 kg/m2 Status: Body Surface Area Calculated 1.62 m2 Status: Results Date Description Value Details 16-Oct-2015 12:04 HEMOGRAM 7305 WBC 9.0 K/uL (Better) Range: 4.5-11.0 RBC 3.16 mil/uL (Below low threshold) Range: 3.60-5.00 HGB 10.4 g/dL (Below low threshold) Range: 12.0-16.0 HCT 33.8 % (Below low threshold) Range: 36.0-48.0 MCV 107.0 fL (Above high threshold) Range: 80.0-99.0 MCH 33.0 pg (Above high threshold) Range: 27.3-32.5 MCHC 30.8 % (Below low threshold) Range: 32.0-36.0 PLATELETS 182 K/uL (Better) Range: 150-400 12:17 RENAL PROFILE 1240 SODIUM 143 mmol/L (Better) Range: 133-144 POTASSIUM 3.5 mmol/L (Better) Range: 3.5-5.1 CHLORIDE 102 mmol/L (Better) Range: 98-110 CARBON DIOXIDE 34.4 mmol/L (Above high threshold) Range: 23.0-33.0 ANION GAP 7 mmol/L (Better) Range: 6-16 BUN 32 mg/dL (Above high threshold) Range: 7-18 CREATININE, SERUM 1.59 mg/dL (Above high threshold) Range: 0.55-1.02 Comments: Please note new reference ranges effective 2015.----- EST GFR, 37 ml/min (Below low threshold) Range: >60 EST GFR, NON-AFR INDONESIAN 31 ml/min (Below low threshold) Range: >60 Comments: EST GFR is reported in ml/min per 1.73 m2 of body surface area. For -[place], please multiple result by 1.2.----- BUN:CREATININE RATIO 20 (Better) GLUCOSE 134 mg/dL (Above high threshold) Range: 70-100 Comments: Variance from previous testing noted.----- ALBUMIN 3.2 g/dL (Below low threshold) Range: 3.4-5.0 PHOSPHORUS 3.0 mg/dL (Better) Range: 2.6-4.7 Comments: Please note new reference ranges effective 2015.----- CALCIUM 9.0 mg/dL (Better) Range: 8.5-10.1 12:50 Parathyroid Hormone Intact 3101 Intact Parathyroid Hormone 91 pg/mL (Above high threshold) Range: 14-72 14:25 Iron Panel with TIBC 1612 Comments: Items were attached to this order: FE TI IRON 83 ug/dL (Better) Range: 50-170 TOTAL IRON BIND. CAPACITY 303 ug/dL (Better) Range: 250-450 % IRON SATURATION 27 % (Better) Range: 20-55 29-Oct-2015 11:32 CBC w/ Auto Diff 7150 Comments: ORDER IN STANDING ORDER BOOK - EV. 2 WEEKSManual differential indicated. WBC 11.6 K/uL (Above high threshold) Range: 4.5-11.0 RBC 3.45 mil/uL (Below low threshold) Range: 3.60-5.00 HGB 11.4 g/dL (Below low threshold) Range: 12.0-16.0 HCT 37.7 % (Better) Range: 36.0-48.0 MCV 109.0 fL (Above high threshold) Range: 80.0-99.0 MCH 32.9 pg (Above high threshold) Range: 27.3-32.5 MCHC 30.2 % (Below low threshold) Range: 32.0-36.0 RDW 16.2 % (Above high threshold) Range: 11.6-14.8 PLATELETS 166 K/uL (Better) Range: 150-400 MPV 10.0 fL (Better) Range: 6.0-11.0 11:32 Manual Differential 7400 Comments: ORDER IN STANDING ORDER BOOK - EV. 2 WEEKS SEGS 64 % (Better) Range: 37-80 BANDS 0 % (Better) Range: 0-7 LYMPH 26 % (Better) Range: 13-50 MONO 4 % (Better) Range: 0-12 EOSIN 6 % [...] (Better) Range: Adequate ANISO Slight (Better) MACROCYT Slight (Better) HYPOCHRO Slight (Better) HJ BODIES Present (Better) 11:50 Comprehensive Metabolic Panel 1212 Comments: ORDER IN STANDING ORDER BOOK - EV. 2 WEEKS SODIUM 142 mmol/L (Better) Range: 133-144 POTASSIUM 3.9 mmol/L (Better) Range: 3.5-5.1 CHLORIDE 101 mmol/L (Better) Range: 98-110 CARBON DIOXIDE 37.4 mmol/L (Above high threshold) Range: 23.0-33.0 ANION GAP 4 mmol/L (Below low threshold) Range: 6-16 BUN 25 mg/dL (Above high threshold) Range: 7-18 CREATININE, SERUM 1.63 mg/dL (Above high threshold) Range: 0.55-1.02 Comments: Please note new reference ranges effective 2015.----- BUN:CREATININE RATIO 15 (Better) EST GFR, 36 ml/min (Below low threshold) Range: >60 EST GFR, NON-AFR INDONESIAN 30 ml/min (Below low threshold) Range: >60 Comments: EST GFR is reported in ml/min per 1.73 m2 of body surface area. For -[place], please multiple result by 1.2.----- GLUCOSE 98 mg/dL (Better) Range: 70-100 ALK PHOSPHATASE 90 U/L (Better) Range: 46-116 TOTAL BILIRUBIN 0.20 mg/dL (Better) Range: 0.20-1.00 AST 32 U/L (Better) Range: 8-35 ALT 17 U/L (Better) Range: 14-59 Comments: Please note new reference ranges. Effective 01/04/2015.----- ALBUMIN 3.3 g/dL (Below low threshold) Range: 3.4-5.0 TOTAL PROTEIN 7.3 g/dL (Better) Range: 6.4-8.2 A/G RATIO 0.8 units (Below low threshold) Range: 1.0-1.8 CALCIUM 9.3 mg/dL (Better) Range: 8.5-10.1 11:50 LDH 1140 Comments: ORDER IN STANDING ORDER BOOK - EV. 2 WEEKS LDH 435 U/L (Above high threshold) Range: 81-234 12-Nov-2015 11:14 CBC w/ Auto Diff 7150 WBC 12.3 K/uL (Above high threshold) Range: 4.5-11.0 RBC 3.47 mil/uL (Below low threshold) Range: 3.60-5.00 HGB 11.3 g/dL (Below low threshold) Range: 12.0-16.0 HCT 38.5 % (Better) Range: 36.0-48.0 MCV 110.8 fL (Above high threshold) Range: 80.0-99.0 MCH 32.5 pg (Better) Range: 27.3-32.5 MCHC 29.3 % (Below low threshold) Range: 32.0-36.0 RDW 16.6 % (Above high threshold) Range: 11.6-14.8 PLATELETS 198 K/uL (Better) Range: 150-400 MPV 10.6 fL (Better) Range: 6.0-11.0 %NEUTRO 57.7 % (Better) Range: 37.0-80.0 %LYMPHS 25.8 % (Better) Range: 13.0-50.0 %MONO 6.4 % (Better) Range: 0.0-12.0 %EOS 7.8 % (Above high threshold) Range: 0.0-7.0 %BASO 0.6 % (Better) Range: 0.0-2.5 %HALIMA 1.7 % (Better) Range: 0.0-5.0 NEUTRO 7.1 K/uL (Above high threshold) Range: 2.0-6.9 LYMPHS 3.2 K/uL (Better) Range: 0.6-3.4 MONOS 0.8 K/uL (Better) Range: 0.0-0.9 EOS 1.0 K/uL (Above high threshold) Range: 0.0-0.7 BASO 0.1 K/uL (Better) Range: 0.0-0.2 11:26 Comprehensive Metabolic Panel 1212 SODIUM 144 mmol/L (Better) Range: 133-144 POTASSIUM 4.1 mmol/L (Better) Range: 3.5-5.1 CHLORIDE 102 mmol/L (Better) Range: 98-110 CARBON DIOXIDE 31.5 mmol/L (Better) Range: 23.0-33.0 ANION GAP 11 mmol/L (Better) Range: 6-16 BUN 32 mg/dL (Above high threshold) Range: 7-18 CREATININE, SERUM 1.48 mg/dL (Above high threshold) Range: 0.55-1.02 Comments: Please note new reference ranges effective 2015.----- BUN:CREATININE RATIO 22 (Better) EST GFR, 41 ml/min (Below low threshold) Range: >60 EST GFR, NON-AFR INDONESIAN 34 ml/min (Below low threshold) Range: >60 Comments: EST GFR is reported in ml/min per 1.73 m2 of body surface area. For -[place], please multiple result by 1.2.----- GLUCOSE 98 mg/dL (Better) Range: 70-100 ALK PHOSPHATASE 88 U/L (Better) Range: 46-116 TOTAL BILIRUBIN 0.20 mg/dL (Better) Range: 0.20-1.00 AST 32 U/L (Better) Range: 8-35 ALT 16 U/L (Better) Range: 14-59 Comments: Please note new reference ranges. Effective 01/04/2015.----- ALBUMIN 3.3 g/dL (Below low threshold) Range: 3.4-5.0 TOTAL PROTEIN 7.5 g/dL (Better) Range: 6.4-8.2 A/G RATIO 0.8 units (Below low threshold) Range: 1.0-1.8 CALCIUM 9.8 mg/dL (Better) Range: 8.5-10.1 11:26 LDH 1140 LDH 410 U/L (Above high threshold) Range: 81-234 11:26 LIPID PROFILE 1184 Comments: Fastin hours CHOLESTEROL 237 mg/dL (Above high threshold) Range: <200 TRIGLYCERIDES 188 mg/dL (Better) Range: 30-200 HDL Cholesterol 66 mg/dL (Better) Range: >39 NON HDL CHOLESTEROL 171 (Better) CARDIAC RSK FACTOR 3.6 units (Below low threshold) Range: 4.4-5.0 LDL - CALCULATED 133 mg/dL (Above high threshold) Range: 0-130 11:54 THYROID STIM. HORMONE 3602 Comments: Fastin hours THYROID STIM. HORMONE 5.350 uIU/mL (Above high threshold) Range: 0.550- 4.780 Comments: Verified by Repeat AnalysisNo established reference ranges for infants and children <2 years of age----- Plan of Care Planned Observations* Name Dates Details Planned Goals not documented Goal Planned Encounters* Appointment; Provider: Chapito Muro On 06-Feb-2016 13:15 * Appointment; Provider: Stefan Streeter On 31-Jan-2016 13:15 * Appointment; Provider: Krunal Lennon On 25-Dec-2015 14:00 * Appointment; Provider: Schedule Radiology On 14-Dec-2015 14:10 * Appointment; Provider: Bruce Saunders On 29-Nov-2015 10:45 * Appointment; Provider: Benigno Holt On 07-Jun-2012 [...] Diagnosis: Problem not documented On 02-Jan-2014 13:45 Appointment; Krunal Lennon Encounter Diagnosis: Problem not documented On 20-Dec-2013 13:15 Appointment; Shayy George Encounter Diagnosis: Problem not documented On 15-Nov-2013 15:00
--- OUTSIDE RECORDS SUMMARY | 2017-02-26 16:12 | XMS REPORT ---
Author Author GENERATED, SYSTEM Organization Unknown Address Unknown Phone Unavailable Care Team Providers Care Pairer Odds Name Role Phone MD CORTEZ, [facility] [phone] Reason For Visit Reason for Visit from 02/20/2016 8:47 PM:* Pt Stated Reason for Adm : increased WBC's/ abd pain Chief Complaint ELEVATED WHITE BLOOD CELLS/ABD PAIN Social History Social History from 02/21/2016 12:42 PM:* Tobacco Use? : Never Smoker Social History from 02/20/2016 8:47 PM:* Tobacco Use? : Never Smoker Functional Status Functional Status from 02/21/2016 8:43 AM:* LOC : Alert * Oriented To : Person,Place,Time * Weight Bearing Status : Full * Assist Level : Partial * # Assists : 1 Functional Status from 02/20/2016 9:56 PM:* # Assists : Independent Functional Status from 02/20/2016 8:47 PM:* LOC : Alert * Oriented To : Person,Place,Time,Event * Weight Bearing Status : Full * Assist Level : Partial * # Assists : 1 Vital Signs Hospital Vital Signs from 02/21/2016 8:28 AM:* Height : 5/0 ft,in Hospital Vital Signs from 02/21/2016 7:09 AM:* Height : 5/0 ft,in * Temperature : 97.6 F * Pulse : 63 * Respirations : 18 * BP : 168/72 Hospital Vital Signs from 02/21/2016 3:27 AM:* Weight : 60/ kg * Height : 5/0 ft,in Hospital Vital Signs from 02/20/2016 10:55 PM:* Height : 5/0 ft,in * Temperature : 97.1 F * Pulse : 64 * Respirations : 18 * BP : 151/66 Hospital Vital Signs from 02/20/2016 8:47 PM:* Weight : 58.5/ kg * Height : 5/0 ft,in Hospital Vital Signs from 02/20/2016 7:00 PM:* Height : 5/0 ft,in * Temperature : 98.2 F * Pulse : 60 * Respirations : 18 * BP : 159/81 Results Chemistry from 02/21/2016 11:53 AMTROPONIN-I 0.028 NG/ML (0.000-0.056 NG/ML) Chemistry from 02/21/2016 4:32 AMSODIUM 145 MMOL/L (136-145 MMOL/L) POTASSIUM 4.0 MMOL/L (3.5-5.1 MMOL/L) CHLORIDE 109 MMOL/L H (98-107 MMOL/L) TCO2 34.4 MMOL/L H (21.0-32.0 MMOL/L) *ANION GAP 1.6 MMOL/L L (8.0-16.0 MMOL/L) BUN 35 MG/DL H (7-18 MG/DL) CREATININE 1.07 MG/DL H (0.55-1.02 MG/DL) *BUN/CREATININE RATIO 32.7 H (9.1-17.0 ) GLUCOSE 83 MG/DL (65-99 MG/DL) *GFR EST NON AFR [place]AI[place]ESE 47 ML/MIN *GFRA EST AFR AMER 55 ML/MIN CALCIUM 8.2 MG/DL L (8.5-10.1 MG/DL) BILIRUBIN TOTAL 0.30 MG/DL (0.20-1.00 MG/DL) TOTAL PROTEIN 6.0 GM/DL L (6.4-8.2 GM/DL) ALBUMIN 2.5 GM/DL L (3.4-5.0 GM/DL) *GLOBULIN 3.5 GM/DL (2.3-3.5 GM/DL) *A/G RATIO 0.7 MG/DL L (1.5-2.2 MG/DL) ALK PHOS 74 U/L (46-116 U/L) ALT (SGPT) 22 U/L (16-63 U/L) AST (SGOT) 30 U/L (15-37 U/L) TROPONIN-I 0.032 NG/ML (0.000-0.056 NG/ML) Chemistry from 02/20/2016 8:05 PMTROPONIN-I 0.031 NG/ML (0.000-0.056 NG/ML) Hematology from 02/21/2016 4:32 AMWBC 13.2 X10e3/UL H (3.6-11.2 X10e3/UL) RBC 3.05 X10e6/UL L (3.63-4.92 X10e6/UL) HEMOGLOBIN 10.3 G/DL L (11.0-14.3 G/DL) HEMATOCRIT 32.2 % (31.2-41.9 %) *MCV 105.4 FL H (79.0-98.0 FL) *MCH 33.8 PG H (27.0-33.0 PG) *MCHC 32.0 G/DL (32.0-36.0 G/DL) *RDW 15.6 % (12.3-17.0 %) *RDWSD 58.2 H (37.1-47.8 ) PLATELET 158 X10e3/UL L (159-386 X10e3/UL) *MPV 10.8 FL H (7.4-10.4 FL) Microbiology from 02/20/2016 8:10 PM* CULTURE BLOOD (Preliminary Result) Specimen Number: [id number] Sample Collection Date/Time: 02/20/2016 8:10 PM Specimen Source: Blood Peripheral CULTURE BLOOD: No growth after 24 hours of incubation, testing to continue for an additional 96 hours. Microbiology from 02/20/2016 8:00 PM* CULTURE BLOOD (Preliminary Result) Specimen Number: [id number] Sample Collection Date/Time: 02/20/2016 8:00 PM Specimen Source: Blood Peripheral CULTURE BLOOD: No growth after 24 hours of incubation, testing to continue for an additional 96 hours. DX Radiology from 02/21/2016 6:12 AMACUTE ABDOMEN SERIES History: ABD PAIN - ELEVATED WHITE BLOOD CELLS . Technique: 1 view of the chest and 2 views of the abdomen. Priors: Chest x-ray 04/19/09 Findings: Chest A left-sided cardiac pacemaker is in place. The cardiac silhouette is borderline prominent. There is mild pulmonary venous congestion. There are scattered nonspecific bilateral infiltrates. There are changes of COPD. Abdomen There postoperative changes in the upper abdomen. A moderate of stool is noted in the colon, predominantly descending and sigmoid colon. The bowel gas pattern is nonobstructive. Several presumed phleboliths are noted in the pelvis. There is no evidence of free intra-abdominal gas. Impression: Mild constipation. COPD and scattered bilateral nonspecific infiltrates. Electronically signed by: Gilmar Rivera MD Dictated: 02/21/2016 07:54 Problems Encounter Diagnosis * Acute Pain Status:Active. * Fall Risk Status:Active. Encounters Encounter Diagnosis * Acute Pain Status:Active. * Fall Risk Status:Active. Plan of Care Follow-up Appointments from 02/21/2016 12:42 PM:* #1 Office appointment: : Dr Toro * #1 Date/Time : 03/13/2016 11:30 AM * Address # 1 : [facility]: [facility] [place], [place]- [phone] or Treatment Plan from 02/21/2016 9:28 AM:* Care Management Note : Admission status: Outpatient observation Per H&P: The patient is a very pleasant 85-year-old lady who was in her usual state of health until today when she began having some trouble with speaking, facial droop, and some other lateralizing neurologic signs. She was transported to the emergency department where she underwent a full evaluation to include radiologic imaging which showed a possible infarct. She is admitted to the hospital for CVA and complete evaluation thereof. labs and vital signs noted. Oxygen. breathing treatments. monitor vital signs every 8 hours, I/O, and daily weights. IVF at 75. IV Cipro and Flagyl. work up pending. PCP anticipates possible home later today. meets outpatient observation status. Procedures * Completed Procedure Code: 00.00 Procedure [...] to care for yourself at home from 02/21/2016 12:42 PM:* Discharge Activity : Activity as tolerated * Discharge Diet : Modification as given by physician * Discharge Diet: : cardiac diet- low fat,low cholesterol * Call your doctor if: : Fever [...] Allergy. * No Known Food Allergies. Medication It is the responsibility of the patient or patient primary care sales representative to confirm the list of medications with either the patient's personal care provider or the patient's follow-up care provider to ensure the patient has an appropriate list of medications to take at home. Discharge medications New medications* traMADol 50 mg Tablet, Ordered By: EMILI TORO MD Directions: 1 tablet oral every six hours PRN pain * ondansetron (ZOFRAN ODT) 4 mg tablet,disintegrating, Ordered By: EMILI TORO MD Directions: 1 tablet oral every six hours PRN nausea or vomiting * ciprofloxacin HCl 500 mg Tablet Directions: 1 tablet oral twice a day * metroNIDAZOLE 500 mg Tablet Directions: 1 tablet oral twice a day Continued medications* acyclovir 400 mg Tablet, Ordered By: EMILI TORO MD Directions: 1 tablet oral twice a day * allopurinol 300 mg Tablet, Ordered By: EMILI TORO MD Directions: 1 tablet oral daily * ipratropium-albuterol 0.5 mg-3 mg (2.5 mg base)/3 mL Solution for Nebulization , Ordered By: EMILI TORO MD Directions: 3 mL by inhalation daily for shortness of breath * aspirin (Aspirin Low Dose) 81 mg tablet,delayed release (DR/EC), Ordered By: EMILI TORO MD Directions: 1 tablet oral daily * LORazepam (Ativan) 0.5 mg Tablet, Ordered By: EIMLI TORO MD Directions: 1 tablet oral three times a day PRN anxiety * DULoxetine (Cymbalta) 60 mg capsule,delayed release(DR/EC), Ordered By: EMILI TORO MD Directions: 1 capsule oral daily at bedtime * foLIC Acid 1 mg Tablet, Ordered By: EMILI TORO MD Directions: 1 tablet oral daily every morning * polyethylene glycol 3350 (Miralax) 17 gram Powder in Packet, Ordered By: EMILI TORO MD Directions: 1 packet oral daily * mirtazapine (Remeron) 45 mg Tablet, Ordered By: EMILI TORO MD Directions: 0.5 tablet oral daily every evening * Multi-Day Vitamin 1 tablet oral daily * furosemide 40 mg Tablet, Ordered By: EMILI TORO MD Directions: 1 tablet oral daily every morning * pantoprazole (ProTONIX) 40 mg tablet,delayed release (DR/EC), Ordered By: EMILI TORO MD Directions: 1 tablet oral daily * potassium chloride (Klor-Con 10) 10 mEq Tablet Extended Release, Ordered By: EMILI TORO MD Directions: 1 tablet oral daily with or after meal * furosemide 40 mg Tablet, Ordered By: EMILI TORO MD Directions: 0.5 tablet oral daily afternoon * propranolol 40 mg Tablet, Ordered By: EMILI TORO MD Directions: 0.5 tablet oral twice a day * ropinirole 2 mg Tablet, Ordered By: EMILI TOOR MD Directions: 1 tablet oral daily at bedtime * oxygen 2L 24 hrs day may titrate up for dyspnea * alendronate 70 mg Tablet, Ordered By: EMILI TORO MD Directions: 1 tablet oral weekly morning Additional Instructions: on an empty stomach with 8 oz of water, nothing else for 30 min * arformoterol (Brovana) 15 mcg/2 mL Solution for Nebulization, Ordered By: EMILI TORO MD Directions: 2 mL by inhalation twice a day * albuterol sulfate (Ventolin HFA) 90 mcg HFA Aerosol Inhaler, Ordered By: EMILI TORO MD Directions: 2 puff by inhalation four times daily PRN shortness of breath * ferrous sulfate 325 mg (65 mg iron) Tablet, Ordered By: ELIOT ROSENBERG RN Directions: 1 tablet oral daily with or after food Changed medications* budesonide 0.5 mg/2 mL Suspension for Nebulization, Ordered By: EMILI TORO MD Directions: 2 mL by inhalation twice a day Stopped medications* None
--- OUTSIDE RECORDS SUMMARY | 2017-02-26 16:12 | XMS REPORT ---
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 Findings: No acute fracture or subluxation is identified. There is no evidence of joint effusion. There are mild degenerative changes. Impression: Degenerative changes without acute osseous abnormality. Electronically signed by: Gilmar Rivera MD Dictated: 02/15/2017 11:38 (Reference Range: not available) HIP LEFT 2 VIEWS WITH PELVIS History: Hip injury. Technique: Single-view pelvis and two-view left hip Priors: None. Findings: There is no acute fracture. The hip is in normal alignment. The femoral head demonstrates normal contour. There are mild degenerative changes. Impression: Degenerative changes without acute osseous abnormality. Electronically signed by: Gilmar Rivera MD Dictated: 02/15/2017 11:37 (Reference Range: not available) CT Scan from 02/15/2017 1:14 AMCT CEREBRAL W/O CONTRAST History: Dizziness. Fall. Trauma left side of head. The patient is on aspirin and Plavix. Priors: 12/31/13 Findings: Ventricles and Extra axial spaces: Normal in size and morphology for the patient's age. Hemorrhage: None. Cerebral parenchyma: Scattered decreased attenuation in the periventricular white matter, most consistent with chronic small-vessel ischemic changes. 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 This does appear new when compared with prior study. Mass effect/midline shift: None. Brainstem/Cerebellum: Normal. Calvarium: Normal. Visualized Paranasal sinuses/Mastoids: There is partial opacification sphenoid sinus with some high attenuation material, suggesting chronic sinusitis or possibly atypical sinusitis. Impression: No acute intracranial processes. Electronically signed by: Gilmar Rivera MD Dictated: 02/15/2017 09:32 (Reference Range: not available) CT SPINE CERVICAL W/O CONTRAST History: fall, inj . 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 There is minimal anterolisthesis of C4 upon 5 and C7 upon T1. There is multilevel disc space narrowing and endplate degenerative changes. Hypertrophic degenerative changes are noted throughout the cervical spine. No acute fractures demonstrated. No posttraumatic findings are noted in the prevertebral soft tissues. Probable fibrosis is noted in the lung apices. There is advanced atherosclerosis of the carotid arteries. Impression: Degenerative changes without acute osseous abnormality. Electronically signed by: Gilmar Rivera MD Dictated: 02/15/2017 09:35 (Reference Range: not available) Problems Encounter Diagnosis No relevant problems exist. Additional Problems * Acute Pain Comment:Problem resolved by [facility] Workflow upon Discharge, Status :Resolved. * Anemia Comment:Problem resolved by [facility] Workflow upon Discharge, Status: Resolved. * Anemia of Chronic Disease Comment:Problem resolved by [facility] Workflow upon Discharge, Status:Resolved. * Chest Pain Comment:Problem resolved by [facility] Workflow upon Discharge, Status :Resolved. * Chronic Congestive Heart Failure Comment:Problem resolved by [facility] Workflow upon Discharge, Status:Resolved. * Chronic Kidney Disease, Stage 3 Comment:Problem resolved by [facility] Workflow upon Discharge, Status:Resolved. * Chronic Kidney Disease, Stage 4 Comment:Problem resolved by [facility] Workflow upon Discharge, [...] Soarian Workflow upon Discharge, Status: Resolved. * History of Hypertension Comment:Problem resolved by [facility] Workflow upon Discharge, [...] 8 :57 AM * Completed Procedure Code: 8566681 Procedure Name: not valued, on 08/27/2016 12 :00 AM * Completed Procedure Code: 36422 Procedure Name: not valued, on 08/27/2016 12: 00 AM * Completed Procedure Code: [id number] Procedure Name: not valued, on 07/30/2016 9: 59 AM * Completed Procedure Code: [id number] Procedure Name: not valued, on 07/30/2016 9: 59 AM * Completed Esophagogastroduodenoscopy with control of bleeding, by MD ROOSEVELT DIAZ, on 07/30/2016 9:21 AM * Completed Procedure Code: 0198249 Procedure Name: not valued, on 07/21/2016 12 :00 AM * Completed Procedure Code: 50948 Procedure Name: not valued, on 07/21/2016 12: 00 AM * Completed Procedure Code: 84854 Procedure Name: not valued, on 07/21/2016 12: 00 AM * Completed Procedure Code: [id number] Procedure Name: not valued, on 06/21/2016 12 [...] Hospital Discharge Instructions Allergies, Adverse Reactions, Alerts This section is labor representative of the current allergy information, at the time of the CCD generation. In the case of regeneration of the CCD, the allergy information may not reflect the state of known allergies at the time of the CCD' s subject visit. * cefuroxine causes Unknown. * Ceftin causes Unknown. * Latex Allergy has not been assessed. * IV Contrast Allergy has not been assessed. * No Known Food Allergies. Medication Medication reconciliation has not been performed.
--- OUTSIDE RECORDS SUMMARY | 2017-02-26 16:13 | XMS REPORT ---
Author Author [facility] - Organization Unknown Address Unknown Phone Unavailable Allergies, Adverse Reactions, Alerts * cefuroxime causes Moderate Adverse Reaction. * Ceftin causes N/V, DIARRHEA. * No Latex Allergy. * No IV Contrast Allergy. * No Known Food Allergies. Problems * Abdominal Pain* Status:Resolved. * Pain* Status:Active. * Pneumonia* Status:Active. Procedures No relevant procedures performed. Medication Medication reconciliation has not been performed. Results LAB--CHEMISTRY from 04/21/2013 4:42 PMAnion Gap 10 (3-20 ) Albumin 4.0 g/dL (3.5-4.8 g/dL) Alkaline Phosphatase 54 U/L (26-104 U/L) ALT (SGPT) 15 U/L (14-54 U/L) AST (SGOT) 27 U/L (15-41 U/L) Bilirubin Total 0.4 mg/dL (0.2-1.2 mg/dL) BUN 36 mg/dL H (4-20 mg/dL) Calcium 9.3 mg/dL (8.6-10.0 mg/dL) Chloride 102 mEq/L (99-109 mEq/L) CO2 27 mEq/L (22-32 mEq/L) Creatinine 1.35 mg/dL H (0.44-1.03 mg/dL) eGFR 38 A (>60- ) Globulin 3.2 g/dL (1.9-4.3 g/dL) Glucose 100 mg/dL (70-100 mg/dL) Potassium 4.0 mEq/L (3.6-5.1 mEq/L) Sodium 139 mEq/L (136-144 mEq/L) Protein 7.2 g/dL (6.1-7.9 g/dL) LAB--HEMATOLOGY from 04/21/2013 4:43 PMAbsolute Basophils 0.06 THOUS (0.00-0.20 THOUS) Absolute Eosinophils 0.53 THOUS H (0.00-0.50 THOUS) Absolute Lymphocytes 3.91 THOUS H (0.80-3.30 THOUS) Absolute Monocytes 1.16 THOUS H (0.30-1.00 THOUS) Absolute Neutrophils 8.82 THOUS H (1.90-7.00 THOUS) HCT 37.6 % (37.0-47.0 %) HGB 12.3 g/dl (12.0-16.0 g/dl) MCH 33.4 pg H (27.0-32.0 pg) MCHC 32.7 g/dL (32.0-36.0 g/dL) MCV 102.2 fL H (82.0-99.0 fL) MPV 12.1 fL (9.4-12.4 fL) Platelet Count 193 K/uL (150-400 K/uL) RBC 3.68 M/uL L (4.00-5.20 M/uL) RDW 14.1 % (11.5-14.5 %) WBC 14.5 K/uL H (4.8-10.8 K/uL) Basophils 0 % (0-2 %) Eosinophils 4 % (0-4 %) Immature Granulocytes 0.3 % (0.0-1.0 %) Lymphocytes 27 % (20-46 %) Monocytes 8 % (4-11 %) Neutrophils 61 % (51-75 %)
--- OUTSIDE RECORDS SUMMARY | 2017-02-26 16:13 | XMS REPORT | Summary of Care ---
Author Author Krunal Lennon M.D. Unknown Address [address] [place], [place] [id number] Phone Unavailable Care Team Providers Care Machining Supervisor Name Role Phone Ferdinand Hammonds, Cece Unavailable [...] of left shoulder ([phone], 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 Medications Name Dates Details ROPINIRole HCl - 1 MG Oral Tablet TAKE ONE TABLET BY MOUTH EVERY NIGHT AT BEDTIME Quantity: 90 Raphael Mcduffie M.D.* Started 31-Aug-2009 ActiveBrovana 15 MCG/2ML Inhalation Nebulization Solution USE VIA NEBULIZER TWO TIMES DAILY (dx:J44.9) * Quantity: 120 Refills: 11 Stefan Streeter M.D.* Started 23-Nov-2012 ActiveIpratropium-Albuterol 0.5-2.5 (3) MG/3ML Inhalation Solution INHALE 1 VIAL Daily (dx:J44.9) * Quantity: 90 Refills: 11 Stefan Streeter M.D.* Started 06-Dec-2012 ActiveDULoxetine HCl - 60 MG Oral Capsule Delayed Release Particles TAKE 1 CAPSULE AT BEDTIME. * Quantity: 30 Refills: 3 Stefan Streeter M.D.* Started 10-Oct-2013 ActivePotassium Chloride Summer ER 10 MEQ Oral Tablet Extended Release take 1 tab daily * Quantity: 90 Refills: 3 Chapito Muro * Started 19-Jan-2014 ActiveVentolin HFA 108 (90 Base) MCG/ACT Inhalation Aerosol Solution 2 puffs every 6 hours as needed * Refills: 0 * Started 15-Aug-2014 ActivePantoprazole Sodium 40 MG Oral Tablet Delayed Release take 1 tab daily * Quantity: 30 Refills: 3 Chapito Muro * Started 15-Aug-2014 ActiveLORazepam 0.5 MG Oral Tablet TAKE 1 TABLET 3 TIMES DAILY NEEDED * Quantity: 90 Refills: 0 Chapito Muro * Started 15-Aug-2014 ActiveAllopurinol 300 MG Oral Tablet TAKE 1 TABLET DAILY. * Refills: 0 * Started 15-Aug-2014 ActiveMiraLax Oral Powder MIX 1 CAPFUL IN 8 OUNCES OF WATER AND DRINK DAILY DIRECTED. * Quantity: 1 Refills: 6 * Started 15-Aug-2014 ActiveFerrous Sulfate 325 (65 Fe) MG Oral Tablet Delayed Release take 1 tab twice daily * Refills: 0 * Started 15-Aug-2014 ActiveAcetaminophen-Codeine 300-30 MG Oral Tablet TAKE 1 TABLET EVERY 6 HOURS NEEDED FOR PAIN. Must last 30 days * Quantity: 120 Refills: 0 Chapito Muro * Started 07-Nov-2014 ActiveFurosemide 40 MG Oral Tablet take one tablet in the morning and 1/2 tablet in the afternoon * Quantity: 45 Refills: 5 Chapito Muro * Started 07-Mar-2015 ActivePropranolol HCl - 40 MG Oral Tablet take 11/2 tablets twice daily * Refills: 0 Stefan Streeter M.D.* Started 07-Mar-2015 ActiveBudesonide 0.5 MG/2ML Inhalation Suspension USE 1 UNIT DOSE VIA NEBULIZER TWO TIMES A DAY (dx:J44.9) * Quantity: 120 Refills: 11 Stefan Streeter M.D.* Started 01-Nov-2015 ActiveMulti-Day Vitamins Oral Tablet I po qd * Refills: 0 * Started 07-Jun-2009 ActiveOxygen 2 LPM 24 HOURS A DAY MAY TITRATE UP FOR DYSPNEA * Refills: 0 * Started ActiveAdult Aspirin EC Low Strength 81 MG Oral Tablet Delayed Release * Refills: 0 Henry Mendoza M.D.* Started 05-Jul-2013 ActiveMirtazapine 45 MG Oral Tablet TAKE 1/2 TABLET DAILY * Refills: 0 Stefan Streeter M.D.* Started 10-Oct-2013 ActiveFolic Acid 1 MG Oral Tablet Take 1 tablet daily * Quantity: 30 Refills: 1 Stefan Streeter M.D.* Started 04-Dec-2014 ActiveAcyclovir 400 MG Oral Tablet TAKE 1 TABLET TWICE DAILY. * Quantity: 60 Refills: 3 Chapito Muro * Started 15-Aug-2014 Active Allergies [...] Immunization Name Dates Details Influenza Lot #: [id number] Administered on:02-Aug-2010 Influenza Lot #: [id number] Administered on:24-Aug-2012 Pneumo (Pneumovax) Lot #: [id number] Administered on:24-Aug-2012 Fluzone High-Dose 0.5 ML Intramuscular Suspension Prefilled Syringe Lot #: [id number] Administered on:25-Jul-2015 Tdap (Adacel) Lot #: [id number] Administered on:05-Nov-2015 Family History natural son* Name [...] to report Results Date Description Value Details 26-Nov-2015 11:14 [...] low threshold) Range: >60 EST GFR, NON-AFR BENINESE 46 ml/min (Below low threshold) Range: >60 Comments: EST GFR is reported in ml/min per 1.73 m2 of body surface area. For -Russian, please multiple result by 1.2.----- GLUCOSE 85 [...] 0.0-0.7 BASO 0.0 K/uL (Better) Range: 0.0-0.2 Plan of Care Planned Observations* Name Dates Details Planned Goals not documented Goal Planned Encounters* Appointment; Provider: Chapito Muro On 06-Feb-2016 13:15 * Appointment; Provider: Stefan Streeter On 31-Jan-2016 13:15 * Appointment; Provider: [facility] On 16-Jan-2016 13:40 * Appointment; Provider: Krunal Lennon On 25-Dec-2015 14:00 * Appointment; Provider: Benigno Holt On 07-Jun-2012 [...]
--- OUTSIDE RECORDS SUMMARY | 2017-02-26 16:13 | XMS REPORT ---
Author Author GENERATED, SYSTEM Organization Unknown Address Unknown Phone Unavailable Care Team Providers Care Retail Field Supervisor Name Role Phone MD CORTEZ, [facility] [phone] Reason For Visit Reason for Visit from 02/12/2016 10:44 AM:* Pt Stated Reason for Adm : IVIG infusion Chief Complaint D83.8 Social History Functional Status Functional Status from 02/12/2016 10:44 AM:* LOC : Alert * Oriented To : Person,Place,Time,Event Vital Signs Hospital Vital Signs from 02/12/2016 1:48 PM:* Height : 5/0 ft,in * Pulse : 59 * Respirations : 18 * BP : 139/75 Hospital Vital Signs from 02/12/2016 1:33 PM:* Height : 5/0 ft,in * Pulse : 59 * Respirations : 18 * BP : 138/77 Hospital Vital Signs from 02/12/2016 1:18 PM:* Height : 5/0 ft,in * Pulse : 60 * Respirations : 18 * BP : 155/77 Hospital Vital Signs from 02/12/2016 1:03 PM:* Height : 5/0 ft,in * Pulse : 62 * Respirations : 18 * BP : 160/74 Hospital Vital Signs from 02/12/2016 12:50 PM:* Height : 5/0 ft,in * Pulse : 62 * Respirations : 18 * BP : 153/77 Hospital Vital Signs from 02/12/2016 12:33 PM:* Height : 5/0 ft,in * Pulse : 61 * Respirations : 18 * BP : 184/88 Hospital Vital Signs from 02/12/2016 12:18 PM:* Height : 5/0 ft,in * Pulse : 63 * Respirations : 18 * BP : 185/91 Hospital Vital Signs from 02/12/2016 12:02 PM:* Height : 5/0 ft,in * Pulse : 59 * Respirations : 18 * BP : 164/91 Hospital Vital Signs from 02/12/2016 11:49 AM:* Height : 5/0 ft,in * Pulse : 59 * Respirations : 18 * BP : 161/84 Hospital Vital Signs from 02/12/2016 11:32 AM:* Height : 5/0 ft,in * Pulse : 59 * Respirations : 18 * BP : 173/87 Hospital Vital Signs from 02/12/2016 11:17 AM:* Height : 5/0 ft,in * Pulse : 60 * Respirations : 18 * BP : 171/87 Hospital Vital Signs from 02/12/2016 11:02 AM:* Height : 5/0 ft,in * Temperature : 97.9 F * Pulse : 60 * Respirations : 18 * BP : 154/80 Hospital Vital Signs from 02/12/2016 10:44 AM:* Weight : 125/ lbs,oz * Height : 5/0 ft,in Results Chemistry from 02/21/2016 11:53 AMTROPONIN-I 0.028 [...] MG/DL (65-99 MG/DL) *GFR EST NON AFR PARAGUAYAN 47 ML/MIN *GFRA EST AFR AMER 55 [...] 02/20/2016 8:05 PMTROPONIN-I 0.031 NG/ML (0.000-0.056 NG/ML) Chemistry from 02/12/2016 10:27 AMCREATININE 1.21 MG/DL H (0.55-1.02 MG/DL) *GFR EST NON AFR PARAGUAYAN 41 ML/MIN *GFRA EST AFR AMER 47 ML/MIN Hematology from 02/21/2016 4:32 AMWBC 13.2 X10e3/UL [...] PM* CULTURE BLOOD (Preliminary Result) Specimen Number: [id number] Sample Collection Date/Time: 02/20/2016 8:10 PM Specimen Source: Blood Peripheral CULTURE BLOOD: No growth after 24 hours of incubation, testing to continue for an additional 96 hours. No Growth after 48 hours of initial incubation, testing to continue for additional 72 hours. Microbiology from 02/20/2016 8:00 PM* CULTURE BLOOD (Preliminary Result) Specimen Number: [id number] Sample Collection Date/Time: 02/20/2016 8:00 PM Specimen Source: Blood Peripheral CULTURE BLOOD: No growth after 24 hours of incubation, testing to continue for an additional 96 hours. No Growth after 48 hours of initial incubation, testing to continue for additional 72 hours. DX Radiology from 02/21/2016 6:12 AMACUTE [...] MD Dictated: 02/21/2016 07:54 Problems Encounter Diagnosis No relevant problems exist. Additional Problems * Acute Pain Comment:Problem resolved by [facility] Workflow upon Discharge, Status :Resolved. * Fall Risk Comment:Problem resolved by [facility] Workflow upon Discharge, Status: Resolved. Encounters Encounter Diagnosis No relevant problems exist. [...]
--- OUTSIDE RECORDS SUMMARY | 2017-02-26 16:13 | XMS REPORT ---
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 Encounters Encounter Diagnosis No relevant problems exist. Plan of Care Procedures No relevant procedures performed. Immunizations No immunizations administered or ordered. Hospital Course Hospital Discharge Instructions Allergies, Adverse Reactions, Alerts * Ceftin causes Unknown. * Latex Allergy has not been assessed. * IV Contrast Allergy has not been assessed. Medication Medication reconciliation has not been performed.
--- OUTSIDE RECORDS SUMMARY | 2017-02-26 16:13 | XMS REPORT | Summary of Care ---
Author Author Chapito Muro Organization Unknown Address [address] [phone] Phone Unavailable Care Team Providers Care Grinder Outside Diameter Name Role Phone Ferdinand Hammonds, Cece Unavailable [...] * Quantity: 30 Refills: 1 Ferdinand HammondsStefan Cece * Start 04-Dec-2014 Active Ipratropium-Albuterol 0.5-2.5 (3) MG/3ML Inhalation Solution INHALE 1 VIAL Daily (dx:J44.9) * Quantity: 90 Refills: 11 Ferdinand HammondsStefan * Start 06-Dec-2012 Active Brovana 15 MCG/2ML Inhalation Nebulization Solution USE VIA NEBULIZER TWO TIMES DAILY (dx:J44.9) * Quantity: 120 Refills: 11 Ferdinand HammondsStefan Cece * Start 23-Nov-2012 Active Potassium Chloride Summer [...] AFTER 05-09-16 * Quantity: 90 Refills: 0 AustynChapito willson * Start 15-Aug-2014 Active Ondansetron 4 MG Oral Tablet Dispersible DISSOLVE ONE TABLET BY MOUTH EVERY 6 HOURS NEEDED FOR NAUSEA * Quantity: 30 Refills: 0 Austyned Chapito * Start 25-Jun-2016 Active Propranolol HCl - 40 MG Oral Tablet take 11/2 tablets twice daily * Quantity: 90 Refills: 1 AustynNew willsonemy * Start 07-Mar-2015 Active Allopurinol 300 MG Oral Tablet TAKE 1 TABLET DAILY. * Quantity: 30 Refills: 3 EdtomaChapito willson * Start 15-Aug-2014 Active Plavix 75 MG [...] 5 days * Quantity: 10 Refills: 0 Bhaskar Chapito * Start 23-Sep-2016 [...] Biopsy Completed: History of Aortic Valve Replacement CBC w/ Auto Diff 7150 Ordered: 08-Sep-2016 RENAL PROFILE 1240 Ordered: 08-Sep-2016 THYROID STIM. HORMONE 3602 Ordered: 29-Sep-2016 CBC w/ Auto Diff 7150 Ordered: 29-Sep-2016 CBC w/ Auto Diff 7150 Ordered: 17-Oct-2016 Immunization Name Dates Details Influenza Lot #: [id number] on: 02-Aug-2010 Influenza Lot #: [id number] on: 24-Aug-2012 Pneumo (Pneumovax) Lot #: [id number] on: 24-Aug-2012 Fluzone High-Dose 0.5 ML Intramuscular Suspension Prefilled Syringe Lot #: [id number] on: 25-Jul-2015 Tdap (Adacel) Lot #: [id number] on: 05-Nov-2015 Fluzone High-Dose 0.5 ML Intramuscular Suspension Prefilled Syringe Lot #: [id number] on: 02-Sep-2016 Family History Name Dates Details [...] smoker Vital Signs Date Test Result Details 29-Sep-2016 11:52 BP Systolic 112 mm[Hg] Status: Comments: Location: ; Position: BP Diastolic 60 mm[Hg] Status: Comments: Location: ; Position: Heart Rate 68 /min Status: Comments: Location: ; Height 63 in Status: Weight 109.125 lb Status: Physical Findings 94 Status: Comments: O2 Saturation FiO2 flow rate 2 L/min Status: Body Mass Index Calculated 19.33 kg/m2 Status: Body Surface Area Calculated 1.49 m2 Status: Results Date Description Value Details 23-Sep-2016 12:49 Urinalysis, Reflex to Microscopic or Culture PRN 8005 pH 6.0 Range: 5.0-7.5 SP GRAVITY 1.010 Range: 1.010-1.030 APPEARANCE TURBID (Abnormal) Range: Clear COLOR YELLOW Range: Straw-Yellow PROTEIN >=300 mg/dL (Abnormal) Range: Negative-Trace GLUCOSE NEGATIVE mg/dL Range: Negative KETONE NEGATIVE mg/dL Range: Negative BILIRUB NEGATIVE Range: Negative BLOOD MODERATE (Abnormal) Range: Negative UROBIL 0.2 EU/dL Range: 0.2-1.0 NITRITE NEGATIVE Range: Negative LEUK LARGE (Abnormal) Range: Negative 12:49 Urine Microscopic UMIC WBC TNTC /HPF (Abnormal) Range: 0-5 Comments: Specimen referred to Reference Lab for Culture----- RBC 11-20 /HPF (Abnormal) Range: 0-2 BACTERIA Trace /HPF Range: Negative-Trace EPITH 0-2 /HPF Range: 0-10 25-Sep-2016 16:19 URINE CULTURE [id number] Comments: Thing5 [facility] at: [facility], [address] [place] [address], [phone], Sales Representative Education Courses: Gigi Alberto D.O., MPHQuest Collection Date/Time: [id number] Results Received Date/Time: [id number] Reported Date/Time: [id number] FASTING:NOQuest performed at: [facility], [address] [place] [address], [phone], Sales Representative Education Courses: Gigi Alberto D.O., MPHQuest Collection Date/Time: [id number] Results Received Date/Time: [id number] Reported Date/Time: [id number] FASTING:NO CULTURE, URINE, ROUTINE SEE NOTE (Abnormal) Comments: CULTURE, URINE, ROUTINE MICRO NUMBER: [id number] TEST STATUS: FINAL SPECIMEN SOURCE : URINE SPECIMEN QUALITY: ADEQUATE RESULT: 50,000-100,000 CFU/ mL of Citrobacter braakii C.braakii INT LUIS ALFREDO AMOX/CLAVULANATE R 16 CEFAZOLIN R >=64 1 CEFEPIME S <=1 CEFTRIAXONE S <=1 CIPROFLOXACIN S <= 0.25 ERTAPENEM S <=0.5 GENTAMICIN S <=1 IMIPENEM S 0.5 LEVOFLOXACIN S 0.25 NITROFURANTOIN S <=16 PIP/TAZOBACTAM S <=4 TOBRAMYCIN [...] to to confirm susceptibility to parenteral cefazolin.[KS]----- 29-Sep-2016 10:09 CBC w/ Auto Diff 7150 Comments: ORDER IN OFFICE Fastin hours WBC 11.8 K/uL (Above high threshold) Range: 4.5-11.0 RBC 3.83 mil/uL Range: 3.60-5.00 HGB 12.0 g/dL Range: 12.0-16.0 HCT 38.9 % Range: 36.0-48.0 MCV 101.6 fL (Above high threshold) Range: 80.0-99.0 MCH 31.3 pg Range: 27.3-32.5 MCHC 30.8 % (Below low threshold) Range: 32.0-36.0 RDW 17.4 % (Above high threshold) Range: 11.6-14.8 PLATELETS 152 K/uL Range: 150-400 MPV 10.7 fL Range: 6.0-11.0 %NEUTRO 64.9 % Range: 37.0-80.0 %LYMPHS 19.2 % Range: 13.0-50.0 %MONO 6.2 % Range: 0.0-12.0 %EOS 6.8 % Range: 0.0-7.0 %BASO 0.9 % Range: 0.0-2.5 %HALIMA 2.0 % Range: 0.0-5.0 NEUTRO 7.7 K/uL (Above high threshold) Range: 2.0-6.9 LYMPHS 2.3 K/uL Range: 0.6-3.4 MONOS 0.7 K/uL Range: 0.0-0.9 EOS 0.8 K/uL (Above high threshold) Range: 0.0-0.7 BASO 0.1 K/uL Range: 0.0-0.2 10:09 RETICULOCYTE PANEL 7620 Comments: ORDER IN OFFICE Fastin hours %RETIC 1.7 % Range: 0.6-2.6 ABSOLUTE RETIC COUNT 66 mil/L Range: 18-158 RBC 3.83 mil/uL Range: 3.60-5.00 10:39 PHOSPHORUS 1145 Comments: Fastin hours PHOSPHORUS 2.3 mg/dL (Below low threshold) Range: 2.6-4.7 10:42 Comprehensive Metabolic Panel 1212 Comments: ORDER IN OFFICE Fastin hours SODIUM 143 mmol/L Range: 133-144 POTASSIUM 4.1 mmol/L Range: 3.5-5.1 CHLORIDE 103 mmol/L Range: 98-110 CARBON DIOXIDE 33.0 mmol/L Range: 23.0-33.0 ANION GAP 7 mmol/L Range: 6-16 BUN 22 mg/dL (Above high threshold) Range: 7-18 CREATININE, SERUM 1.23 mg/dL (Above high threshold) Range: 0.55-1.02 BUN:CREATININE RATIO 18 EST GFR, 50 ml/min (Below low threshold) Range: >60 EST GFR, NON-AFR GABONESE 41 ml/min (Below low threshold) Range: >60 Comments: EST GFR is reported in ml/min per 1.73 m2 of body surface area. ----- GLUCOSE 101 mg/dL (Above high threshold) Range: 70-100 ALK PHOSPHATASE 113 U/L Range: 46-116 TOTAL BILIRUBIN 0.40 mg/dL Range: 0.20-1.00 AST 33 U/L Range: 8-35 ALT 17 U/L Range: 14-59 ALBUMIN 3.3 g/dL (Below low threshold) Range: 3.4-5.0 TOTAL PROTEIN 6.4 g/dL Range: 6.4-8.2 A/G RATIO 1.1 units Range: 1.0-1.8 CALCIUM 8.9 mg/dL Range: 8.5-10.1 10:42 LDH 1140 Comments: ORDER IN OFFICE Fastin hours LDH 394 U/L (Above high threshold) Range: 81-234 30-Sep-2016 13:28 Haptoglobin [id number] Comments: ORDER IN OFFICETesting performed at: [facility], [address] [place] [address], [phone], , Sales Representative Education Courses: KEILA Carranza MD Fastin hours HAPTOGLOBIN 180 mg/dL Range: 34-200 01-Oct-2016 08:17 VIVIAN PE and FLC Serum [id number] Comments: ORDER IN OFFICETesting performed at: [DA] [facility], [address] [place] [address], [place], [phone], , Sales Representative Education Courses: KEILA Carranza MD Fastin hours IMMUNOGLOBULIN G, QN, SERUM 446 mg/dL (Below low threshold) Range: 700- 1600 IMMUNOGLOBULIN A, QN, SERUM 26 mg/dL (Below low threshold) Range: 64-422 IMMUNOGLOBULIN M, QN, SERUM 7 mg/dL (Below low threshold) Range: 26-217 Comments: Verified by repeat analysis----- PROTEIN, TOTAL, SERUM 5.5 g/dL (Below low threshold) Range: 6.0-8.5 ALBUMIN 3.0 g/dL Range: 2.9-4.4 GIYGA-9-EFNZQCPC 0.4 g/dL Range: 0.0-0.4 CZIJY-3-SNHOLOJM 0.9 g/dL Range: 0.4-1.0 BETA GLOBULIN 0.8 g/dL Range: 0.7-1.3 GAMMA GLOBULIN 0.4 g/dL Range: 0.4-1.8 M-SPIKE Not Observed g/dL Range: Not Observed GLOBULIN, TOTAL 2.5 g/dL Range: 2.2-3.9 A/G RATIO 1.3 Range: 0.7-1.7 IMMUNOFIXATION RESULT, SERUM Comment Comments: An apparent normal immunofixation pattern.----- PLEASE NOTE: Comment Comments: Protein electrophoresis scan will follow via computer,mail, or blacktop paver operator delivery.----- FREE KAPPA LT CHAINS,S 13.97 mg/L Range: 3.30-19.40 FREE LAMBDA LT CHAINS,S 12.84 mg/L Range: 5.71-26.30 KAPPA/LAMBDA RATIO,S 1.09 Range: 0.26-1.65 Plan of Care Name Dates Details Planned Observations Planned Goals not documented Planned Encounters Appointment; Provider: Stefan Streeter M.D. On 19-Mar-2017 14:00 Appointment; Provider: Schedule Radiology On 03-Feb-2017 08:00 Appointment; Provider: Chapito Muro On 02-Dec-2016 11:15 Appointment; Provider: Krunal Lennon M.D. On 04-Nov-2016 13:45 Appointment; Provider: Bruce Saunders M.D. On 03-Nov-2016 09:30 Interventions Provided Labs/Procedures/Imaging* CBC w/ Auto Diff 7150; To be Done: 17 Oct 2016 Instructions Name Dates Details Instructions not documented [...]
--- OUTSIDE RECORDS SUMMARY | 2017-02-26 16:14 | XMS REPORT | Summary of Care ---
Author Author Kruanl Lennon M.D. Organization Unknown Address Unknown Phone Unavailable Care Team Providers Care Industrial Analyst Name Role Phone Cece Streeter M.D. Unavailable Unavailable Chapito Muro Unavailable Unavailable Reji Hammonds, Henry Tariq Unavailable Unavailable Krunal Lennon M.D. Unavailable Unavailable Sony Muro Unavailable Unavailable [...] * Quantity: 90 Refills: 11 Ferdinand HammondsStefan Cece * Start 06-Dec-2012 Active Brovana 15 MCG/2ML [...] FOR NAUSEA * Quantity: 30 Refills: 0 AustynNew willsonemy * Start 25-Jun-2016 Active Propranolol HCl - [...] ALLERGY SYMPTOMS * Quantity: 1 Refills: 3 AustynChapito willson * Start 09-Jul-2016 Active Digoxin 125 MCG [...] 5 days * Quantity: 10 Refills: 0 BhaskarNewChapito * Start 23-Sep-2016 Active Allergies and Adverse [...] 29-Sep-2016 CBC w/ Auto Diff 7150 Ordered: 08-Sep-2016 Immunization Name Dates Details Influenza Lot #: [id number] on: 02-Aug-2010 Influenza Lot #: [id number] on: 24-Aug-2012 Pneumo (Pneumovax) Lot #: [id number] on: 24-Aug-2012 Fluzone High-Dose 0.5 ML Intramuscular Suspension Prefilled Syringe Lot #: [id number] on: 25-Jul-2015 Tdap (Adacel) Lot #: [id number] on: 05-Nov-2015 Fluzone High-Dose 0.5 ML Intramuscular Suspension Prefilled Syringe Lot #: [id number] on: 02-Sep-2016 Family History Name Dates Details [...] low threshold) Range: >60 EST GFR, NON-AFR MONGOLIAN 38 ml/min (Below low threshold) Range: >60 Comments: EST GFR is reported in ml/min per 1.73 m2 of body surface area. ----- BUN:CREATININE RATIO 20 GLUCOSE 99 mg/dL Range: 70-100 ALBUMIN 3.1 g/dL (Below low threshold) Range: 3.4-5.0 PHOSPHORUS 4.0 mg/dL Range: 2.6-4.7 CALCIUM 9.2 mg/dL Range: 8.5-10.1 Plan of Care Name Dates Details Planned Observations CBC w/ Auto Diff 7150 On 24-Oct-2016 Intent Planned Goals not documented Planned Encounters Appointment; Provider: Stefan Streeter M.D. On 19-Mar-2017 14:00 Appointment; Provider: Schedule Radiology On 03-Feb-2017 08:00 Appointment; Provider: Chapito Muro On 02-Dec-2016 11:15 Appointment; Provider: Krunal Lennon M.D. On 04-Nov-2016 13:45 Interventions Provided Labs/Procedures/Imaging* RENAL PROFILE 1240; Done: Nov 03 2016 9:52AM Instructions Name Dates Details Instructions not documented [...]
--- OUTSIDE RECORDS SUMMARY | 2017-02-26 16:14 | XMS REPORT ---
Author Author GENERATED, SYSTEM Organization Unknown Address Unknown Phone Unavailable Care Team Providers Care Embossing Toolsetter Name Role Phone MD CORTEZ, EMILI PP [phone] Reason For Visit Chief Complaint FALL- HEAD TRAUMA Social History Functional Status Vital Signs Results [...] 8 :57 AM * Completed Procedure Code: 9538109 Procedure Name: not valued, on 08/27/2016 12 :00 AM * Completed Procedure Code: 55620 Procedure Name: not valued, on 08/27/2016 12: 00 AM * Completed Procedure Code: [id number] Procedure Name: not valued, on 07/30/2016 9: 59 AM * Completed Procedure Code: [id number] Procedure Name: not valued, on 07/30/2016 9: 59 AM * Completed Esophagogastroduodenoscopy with control of bleeding, by MD ROOSEVELT DIAZ, on 07/30/2016 9:21 AM * Completed Procedure Code: 6369972 Procedure Name: not valued, on 07/21/2016 12 :00 AM * Completed Procedure Code: 93490 Procedure Name: not valued, on 07/21/2016 12: 00 AM * Completed Procedure Code: 95307 Procedure Name: not valued, on 07/21/2016 12: 00 AM * Completed Procedure Code: 50715L1 Procedure Name: not valued, on 06/21/2016 12 [...] Allergies, Adverse Reactions, Alerts This section is account development representative of the current allergy information, at [...]
--- OUTSIDE RECORDS SUMMARY | 2017-02-26 16:14 | XMS REPORT ---
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 Social History Functional Status Functional Status from 10/03/2015 10:56 AM:* LOC : Alert * Oriented To : Person,Place,Time Vital Signs Hospital Vital Signs from 10/03/2015 3:15 PM:* Height : 5/0 ft,in * Pulse : 59 * BP : 129/70 Hospital Vital Signs from 10/03/2015 3:00 PM:* Height : 5/0 ft,in * Pulse : 58 * BP : 131/66 Hospital Vital Signs from 10/03/2015 2:30 PM:* Height : 5/0 ft,in * Pulse : 59 * BP : 127/67 Hospital Vital Signs from 10/03/2015 2:15 PM:* Height : 5/0 ft,in * Pulse : 58 * BP : 129/72 Hospital Vital Signs from 10/03/2015 2:00 PM:* Height : 5/0 ft,in * Pulse : 59 * BP : 135/70 Hospital Vital Signs from 10/03/2015 1:45 PM:* Height : 5/0 ft,in * Pulse : 59 * BP : 110/68 Hospital Vital Signs from 10/03/2015 1:15 PM:* Height : 5/0 ft,in * Pulse : 60 * BP : 117/66 Hospital Vital Signs from 10/03/2015 1:00 PM:* Height : 5/0 ft,in * Pulse : 61 * BP : 127/73 Hospital Vital Signs from 10/03/2015 12:48 PM:* Height : 5/0 ft,in * Pulse : 59 * BP : 137/75 Hospital Vital Signs from 10/03/2015 12:33 PM:* Height : 5/0 ft,in * Pulse : 59 * BP : 141/65 Hospital Vital Signs from 10/03/2015 12:18 PM:* Height : 5/0 ft,in * Pulse : 56 * BP : 111/60 Hospital Vital Signs from 10/03/2015 12:03 PM:* Height : 5/0 ft,in * Pulse : 60 * BP : 119/72 Hospital Vital Signs from 10/03/2015 11:49 AM:* Height : 5/0 ft,in * Pulse : 59 * BP : 114/69 Hospital Vital Signs from 10/03/2015 11:34 AM:* Height : 5/0 ft,in * Pulse : 58 * BP : 115/64 Hospital Vital Signs from 10/03/2015 11:15 AM:* Height : 5/0 ft,in * Pulse : 59 * BP : 112/70 Hospital Vital Signs from 10/03/2015 11:01 AM:* Height : 5/0 ft,in * Temperature : 97.3 F * Pulse : 59 * Respirations : 18 * BP : 106/69 Results Chemistry from 10/03/2015 10:56 AMCREATININE 1.79 MG/DL H (0.55-1.02 MG/DL) *GFR EST NON AFR GABONESE 26 ML/MIN *GFRA EST AFR AMER 30 ML/MIN Problems Encounter Diagnosis No relevant problems [...]
--- OUTSIDE RECORDS SUMMARY | 2017-02-26 16:14 | XMS REPORT ---
Author Author GENERATED, SYSTEM Organization Unknown Address Unknown Phone Unavailable Care Team Providers Care Configuration Management Administrator Name Role Phone MD YEHUDA, CHINO PP [phone] Reason For Visit Reason for Visit from 07/05/2014 4:38 PM:* Pt Stated Reason for Adm : IVIG infusion Reason for Visit from 07/05/2014 1:22 PM:* Pt Stated Reason for Adm : IVIG infusion Chief Complaint CVIDS Social History Functional Status Functional Status from 07/05/2014 4:38 PM:* LOC : Alert * Oriented To : Person,Place,Time,Event Functional Status from 07/05/2014 1:22 PM:* LOC : Alert * Oriented To : Person,Place,Time Vital Signs Hospital Vital Signs from 07/05/2014 4:30 PM:* Height : 5/0 ft,in * Pulse : 73 * BP : 146/84 Hospital Vital Signs from 07/05/2014 4:26 PM:* Height : 5/0 ft,in Hospital Vital Signs from 07/05/2014 4:15 PM:* Height : 5/0 ft,in * Pulse : 74 * BP : 138/87 Hospital Vital Signs from 07/05/2014 4:00 PM:* Height : 5/0 ft,in * Pulse : 75 * BP : 140/85 Hospital Vital Signs from 07/05/2014 3:45 PM:* Height : 5/0 ft,in * Pulse : 73 * BP : 158/79 Hospital Vital Signs from 07/05/2014 3:30 PM:* Height : 5/0 ft,in * Pulse : 70 * BP : 136/84 Hospital Vital Signs from 07/05/2014 3:15 PM:* Height : 5/0 ft,in * Pulse : 66 * BP : 137/72 Hospital Vital Signs from 07/05/2014 3:00 PM:* Height : 5/0 ft,in * Pulse : 67 * BP : 123/73 Hospital Vital Signs from 07/05/2014 2:45 PM:* Height : 5/0 ft,in * Pulse : 66 * BP : 118/68 Hospital Vital Signs from 07/05/2014 2:30 PM:* Height : 5/0 ft,in * Pulse : 68 * BP : 110/68 Hospital Vital Signs from 07/05/2014 2:15 PM:* Height : 5/0 ft,in * Pulse : 69 * BP : 107/66 Hospital Vital Signs from 07/05/2014 2:00 PM:* Height : 5/0 ft,in * Pulse : 73 * BP : 121/72 Hospital Vital Signs from 07/05/2014 1:45 PM:* Height : 5/0 ft,in * Pulse : 75 * BP : 114/68 Hospital Vital Signs from 07/05/2014 1:30 PM:* Height : 5/0 ft,in * Pulse : 77 * BP : 117/66 Hospital Vital Signs from 07/05/2014 1:15 PM:* Height : 5/0 ft,in * Pulse : 79 * BP : 111/67 Hospital Vital Signs from 07/05/2014 1:00 PM:* Height : 5/0 ft,in * Temperature : 97.6 F * Pulse : 82 * Respirations : 18 * BP : 114/65 Results Chemistry from 07/05/2014 1:06 PMSODIUM 139 MMOL/L (136-145 MMOL/L) POTASSIUM 3.6 MMOL/L (3.5-5.1 MMOL/L) CHLORIDE 102 MMOL/L (98-107 MMOL/L) TCO2 33.1 MMOL/L H (21.0-32.0 MMOL/L) ANION GAP 3.9 MMOL/L L (8.0-16.0 MMOL/L) BUN 24 MG/DL H (7-18 MG/DL) CREATININE 1.29 MG/DL H (0.43-0.83 MG/DL) BUN/CREATININE RATIO 18.6 H (9.1-17.0 ) GLUCOSE 151 MG/DL H (65-99 MG/DL) GFR EST NON AFR BAHRAINI 38 ML/MIN GFRA EST AFR AMER 44 ML/MIN CALCIUM 9.9 MG/DL (8.5-10.1 MG/DL) BILIRUBIN TOTAL 0.19 MG/DL L (0.20-1.00 MG/DL) TOTAL PROTEIN 6.9 GM/DL (6.4-8.2 GM/DL) ALBUMIN 3.4 GM/DL (3.4-5.0 GM/DL) GLOBULIN 3.5 GM/DL (2.3-3.5 GM/DL) A/G RATIO 1.0 MG/DL L (1.5-2.2 MG/DL) ALK PHOS 87 U/L (46-116 U/L) ALT (SGPT) 17 U/L (12-78 U/L) AST (SGOT) 28 U/L (15-37 U/L) Hematology from 07/05/2014 1:06 PMWBC 13.0 X10e3/UL H (3.6-11.2 X10e3/UL) RBC 3.27 X10e6/UL L (3.63-4.92 X10e6/UL) HEMOGLOBIN 10.2 G/DL L (11.0-14.3 G/DL) HEMATOCRIT 31.2 % (31.2-41.9 %) MCV 95.5 FL (79.0-98.0 FL) MCH 31.1 PG (27.0-33.0 PG) MCHC 32.5 G/DL (32.0-36.0 G/DL) RDW 17.3 % H (12.3-17.0 %) RDWSD 57.8 H (37.1-47.8 ) PLATELET 308 X10e3/UL (159-386 X10e3/UL) MPV 9.7 FL (7.4-10.4 FL) MANUAL DIFF PERFORMED SEGS 73.0 % BANDS 3.0 % LYMPHOCYTES 11.0 % MONOCYTES 5.0 % EOSINOPHILS 6.0 % BASOPHILS 2.0 % ABSOLUTE NEUTROPHILS 9.9 X10e3/UL H (1.8-7.8 X10e3/UL) ABSOLUTE LYMPHOCYTES 1.4 X10e3/UL (1.0-3.0 X10e3/UL) ABSOLUTE MONOCYTES 0.7 X10e3/UL (0.3-1.0 X10e3/UL) ABSOLUTE EOSINOPHILS 0.8 X10e3/UL H (0.0-0.5 X10e3/UL) ABSOLUTE BASOPHILS 0.3 X10e3/UL H (0.0-0.2 X10e3/UL) POLYCHROMASIA 1+ ANISOCYTOSIS 3+ TARGET CELLS 1+ TEARDROP CELLS 1+ Reference Lab from 07/05/2014 1:06 PMIMMUNOGLOBULIN G 551 mg/dL L (700-1600 mg/dL ) Problems Encounter Diagnosis No relevant problems exist. Encounters Encounter Diagnosis No relevant problems exist. Plan of Care Procedures * Completed Procedure Code: 99.14 Procedure Name: [...] 07/22/2010 12:00 AM * Completed , on 07/22/2010 [...] 03/15/2009 12:00 AM * Completed , on 03/15/2009 12:00 AM * Completed , on 02/12/2009 12:00 AM * Completed , on 02/12/2009 12:00 AM Immunizations No immunizations administered or ordered. Hospital Course Hospital Discharge Instructions Allergies, Adverse Reactions, Alerts * cefuroxine causes Unknown. * Ceftin causes Unknown. * No Latex Allergy. * No IV Contrast Allergy. Medication Medication reconciliation has not been performed.
--- OUTSIDE RECORDS SUMMARY | 2017-02-26 16:15 | XMS REPORT | Summary of Care ---
Author Author Erasto Hammonds, [facility] Unknown Address [address] [place], [place] [id number] Phone Unavailable Care Team Providers Care Director Construction Services Name Role Phone Cece Streeter M.D. 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) Status: Active Asthma (493.90, J45.909) Status: Active History of aortic valve replacement with bioprosthetic valve (V42.2, Z95.4) Status: Active CKD (chronic kidney disease), stage IV (585.4, N18.4) Status: Active Anemia of renal disease (285.21, D63.1) Status: Active Hypercholesteremia (272.0, E78.0) Status: Active Rotator cuff impingement syndrome of right shoulder (726.10, M75.41) Status: Active 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, 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, 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 Osteoporosis (733.00, M81.0) Status: Active Hyperlipidemia (272.4, E78.5) Status: Active Hypothyroidism (244.9, E03.9) Status: Active Abdominal pain (789.00, R10.9) Status: Active Leukocytosis (288.60, D72.829) Status: Active Dehydration, mild (276.51, E86.0) Status: Active Elevated brain natriuretic peptide (BNP) level (790.99, R79.89) Status: Active Acute right lower quadrant pain (789.03, R10.31) Status: Active Nausea (787.02, R11.0) Status: Active Medications Name Dates Details Multi-Day Vitamins Oral Tablet I po qd * Started 07-Jun-2009 ActiveROPINIRole HCl - 2 MG Oral Tablet TAKE 1 TABLET AT BEDTIME. * Quantity: 90 Refills: 3 Chapito Muro * Started 31-Aug-2009 ActiveOxygen 2 [...] needed * Refills: 0 * Started 15-Aug-2014 ActiveMiraLax [...] Refills: 11 Stefan Streeter M.D.* Started 23-Nov-2012 ActivePotassium Chloride Summer ER 10 MEQ Oral Tablet Extended Release take 1 tab daily * Quantity: 90 Refills: 3 Chapito Muro * Started 19-Jan-2014 ActiveAcyclovir 400 MG Oral Tablet TAKE 1 TABLET TWICE DAILY. * Quantity: 60 Refills: 3 Chapito Muro * Started 15-Aug-2014 ActiveFurosemide 40 MG Oral Tablet take one tablet in the morning and 1/2 tablet in the afternoon * Quantity: 45 Refills: 5 Chapito Muro * Started 07-Mar-2015 ActiveAlendronate Sodium 70 MG Oral Tablet TAKE 1 TABLET WEEKLY BY MOUTH IN THE MORNING ON AN EMPTY STOMACH WITH 8 OZ. OF WATER, NOTHING ELSE FOR 30 MINUTES. * Quantity: 12 Refills: 3 Chapito Muro * Started 06-Feb-2016 ActiveBudesonide 0.5 MG/2ML Inhalation Suspension USE 1 UNIT DOSE VIA NEBULIZER TWO TIMES A DAY (dx:J44.9) * Quantity: 120 Refills: 11 Stefan Streeter M.D.* Started 01-Nov-2015 ActiveAllopurinol 300 MG Oral Tablet TAKE 1 TABLET DAILY. * Quantity: 30 Refills: 3 Chapito Muro * Started 15-Aug-2014 ActiveDULoxetine HCl - 60 MG Oral Capsule Delayed Release Particles TAKE 1 CAPSULE AT BEDTIME. * Quantity: 30 Refills: 3 Chapito Muro * Started 10-Oct-2013 ActiveLORazepam 0.5 MG Oral Tablet TAKE 1 TABLET 3 TIMES DAILY NEEDED * Quantity: 90 Refills: 0 Chapito Muro * Started 15-Aug-2014 ActivePantoprazole Sodium 40 MG Oral Tablet Delayed Release take 1 tab daily * Quantity: 30 Refills: 5 Chapito Muro * Started 15-Aug-2014 Active Allergies [...] Biopsy Completed: History of Aortic Valve Replacement RENAL PROFILE 1240 Ordered:21-Mar-2016 Immunization Name Dates Details Influenza Lot #: [id number] Administered on:02-Aug-2010 Influenza Lot #: [id number] Administered on:24-Aug-2012 Pneumo (Pneumovax) Lot #: [id number] Administered on:24-Aug-2012 Fluzone High-Dose 0.5 ML Intramuscular Suspension Prefilled Syringe Lot #: [id number] Administered on:25-Jul-2015 Tdap (Adacel) Lot #: [id number] Administered on:05-Nov-2015 Family History natural son* Name [...] smoker Vital Signs Date Test Result Details 14:17 BP Systolic 136 mm[Hg] Status: BP Diastolic 70 mm[Hg] Status: Heart Rate 66 /min Status: Respiration Rate 20 /min Status: Height 63 in Status: Weight 127 lb Status: O2 SAT 96 % Status: FiO2 flow rate 2 L/min Status: Body Mass Index Calculated 22.5 kg/m2 Status: Body Surface Area Calculated 1.59 m2 Status: 03-Mar-2016 09:18 BP Systolic 122 mm[Hg] Status: BP Diastolic 70 mm[Hg] Status: Heart Rate 78 /min Status: Height 63 in Status: Weight 130.375 lb Status: O2 SAT 96 % Status: FiO2 flow rate 2 L/min Status: Body Mass Index Calculated 23.1 kg/m2 Status: Body Surface Area Calculated 1.61 m2 Status: Results Date Description Value Details 28-Feb-2016 14:14 C REACTIVE PROTEIN, CRP 2030 Comments: ORDER FILED UNDER FEBRUARY ORDERS IN THE BOOK C REACTIVE PROTEIN 0.9 mg/dL (Better) Range: 0.0-0.9 14:14 AMYLASE 1250 Comments: ORDER FILED UNDER FEBRUARY ORDERS IN THE BOOK AMYLASE 146 U/L (Above high threshold) Range: 25-115 14:14 Comprehensive Metabolic Panel 1212 Comments: ORDER FILED UNDER FEBRUARY ORDERS IN THE BOOK SODIUM 145 mmol/L (Above high threshold) Range: 133-144 POTASSIUM 4.9 mmol/L (Better) Range: 3.5-5.1 CHLORIDE 100 mmol/L (Better) Range: 98-110 CARBON DIOXIDE 34.7 mmol/L (Above high threshold) Range: 23.0-33.0 ANION GAP 10 mmol/L (Better) Range: 6-16 BUN 28 mg/dL (Above high threshold) Range: 7-18 CREATININE, SERUM 1.45 mg/dL (Above high threshold) Range: 0.55-1.02 Comments: Please note new reference ranges effective 2015.----- BUN:CREATININE RATIO 19 (Better) EST GFR, 42 ml/min (Below low threshold) Range: >60 EST GFR, NON-AFR [place] 34 ml/min (Below low threshold) Range: >60 Comments: EST GFR is reported in ml/min per 1.73 m2 of body surface area. For -Paraguayan, please multiple result by 1.2.----- GLUCOSE 105 mg/dL (Above high threshold) Range: 70-100 ALK PHOSPHATASE 85 U/L (Better) Range: 46-116 TOTAL BILIRUBIN 0.30 mg/dL (Better) Range: 0.20-1.00 AST 41 U/L (Above high threshold) Range: 8-35 ALT 27 U/L (Better) Range: 14-59 Comments: Please note new reference ranges. Effective 01/04/2015.----- ALBUMIN 3.0 g/dL (Below low threshold) Range: 3.4-5.0 TOTAL PROTEIN 6.7 g/dL (Better) Range: 6.4-8.2 A/G RATIO 0.8 units (Below low threshold) Range: 1.0-1.8 CALCIUM 9.1 mg/dL (Better) Range: 8.5-10.1 14:14 Lipase 1275 Comments: ORDER FILED UNDER FEBRUARY ORDERS IN THE BOOK* LIPASE 286 U/L (Better) Range: 73-393 14:29 CBC w/ Manual Diff 7225 Comments: ORDER FILED UNDER FEBRUARY ORDERS IN THE BOOK WBC 15.1 K/uL (Above high threshold) Range: 4.5-11.0 RBC 3.31 mil/uL (Below low threshold) Range: 3.60-5.00 HGB 11.3 g/dL (Below low threshold) Range: 12.0-16.0 HCT 36.6 % (Better) Range: 36.0-48.0 MCV 110.8 fL (Above high threshold) Range: 80.0-99.0 MCH 34.3 pg (Above high threshold) Range: 27.3-32.5 MCHC 30.9 % (Below low threshold) Range: 32.0-36.0 RDW 15.1 % (Above high threshold) Range: 11.6-14.8 PLATELETS 203 K/uL (Better) Range: 150-400 MPV 8.2 fL (Better) Range: 6.0-11.0 NEUTRO 11.4 K/uL (Above high threshold) Range: 2.0-6.9 SEGS 67 % (Better) Range: 37-80 BANDS 0 % (Better) Range: 0-7 LYMPH 24 % (Better) Range: 13-50 MONO 5 % (Better) Range: 0-12 EOSIN 4 % (Better) Range: 0-7 BASO 0 % (Better) Range: 0-3 JA LYMPH 0 % (Better) Range: 0-0 META 0 % (Better) Range: 0-0 MYELO 0 % (Better) Range: 0-0 PRO 0 % (Better) Range: 0-0 BLAST 0 % (Better) Range: 0-0 NUC RBC 0 /100 WBC (Better) Range: 0-0 SMUDGE 0 /100 WBC (Better) PLATELET Adequate (Better) Range: Adequate MACROCYT Mod (Better) 14:36 ERYTHROCYTE SED RATE 7800 Comments: ORDER FILED UNDER FEBRUARY ORDERS IN THE BOOK ERYTHROCYTE SED RATE 69 mm/60 min. (Above high threshold) Range: 0-20 03-Mar-2016 13:08 CBC w/ Auto Diff 7150 WBC 14.4 K/uL (Above high threshold) Range: 4.5-11.0 RBC 3.16 mil/uL (Below low threshold) Range: 3.60-5.00 HGB 11.0 g/dL (Below low threshold) Range: 12.0-16.0 HCT 34.9 % (Below low threshold) Range: 36.0-48.0 MCV 110.6 fL (Above high threshold) Range: 80.0-99.0 MCH 34.8 pg (Above high threshold) Range: 27.3-32.5 MCHC 31.5 % (Below low threshold) Range: 32.0-36.0 RDW 14.9 % (Above high threshold) Range: 11.6-14.8 PLATELETS 234 K/uL (Better) Range: 150-400 MPV 8.1 fL (Better) Range: 6.0-11.0 %NEUTRO 73.8 % (Better) Range: 37.0-80.0 %LYMPHS 18.4 % (Better) Range: 13.0-50.0 %MONO 3.1 % (Better) Range: 0.0-12.0 %EOS 3.2 % (Better) Range: 0.0-7.0 %BASO 0.4 % (Better) Range: 0.0-2.5 %HALIMA 1.2 % (Better) Range: 0.0-5.0 NEUTRO 10.6 K/uL (Above high threshold) Range: 2.0-6.9 LYMPHS 2.7 K/uL (Better) Range: 0.6-3.4 MONOS 0.5 K/uL (Better) Range: 0.0-0.9 EOS 0.5 K/uL (Better) Range: 0.0-0.7 BASO 0.1 K/uL (Better) Range: 0.0-0.2 13:22 Comprehensive Metabolic Panel 1212 SODIUM 141 mmol/L (Better) Range: 133-144 POTASSIUM 4.7 mmol/L (Better) Range: 3.5-5.1 CHLORIDE 99 mmol/L (Better) Range: 98-110 CARBON DIOXIDE 37.9 mmol/L (Above high threshold) Range: 23.0-33.0 ANION GAP 4 mmol/L (Below low threshold) Range: 6-16 BUN 22 mg/dL (Above high threshold) Range: 7-18 CREATININE, SERUM 1.25 mg/dL (Above high threshold) Range: 0.55-1.02 Comments: Please note new reference ranges effective 2015.----- BUN:CREATININE RATIO 18 (Better) EST GFR, 49 ml/min (Below low threshold) Range: >60 EST GFR, NON-AFR [place] 41 ml/min (Below low threshold) Range: >60 Comments: EST GFR is reported in ml/min per 1.73 m2 of body surface area. For -Paraguayan, please multiple result by 1.2.----- GLUCOSE 90 mg/dL (Better) Range: 70-100 ALK PHOSPHATASE 74 U/L (Better) Range: 46-116 TOTAL BILIRUBIN 0.30 mg/dL (Better) Range: 0.20-1.00 AST 33 U/L (Better) Range: 8-35 ALT 24 U/L (Better) Range: 14-59 Comments: Please note new reference ranges. Effective 01/04/2015.----- ALBUMIN 2.8 g/dL (Below low threshold) Range: 3.4-5.0 TOTAL PROTEIN 6.5 g/dL (Better) Range: 6.4-8.2 A/G RATIO 0.8 units (Below low threshold) Range: 1.0-1.8 CALCIUM 9.1 mg/dL (Better) Range: 8.5-10.1 13:22 LDH 1140 LDH 393 U/L (Above high threshold) Range: 81-234 18-Mar-2016 12:55 CBC w/ Auto Diff 7150 WBC 13.7 K/uL (Above high threshold) Range: 4.5-11.0 RBC 2.97 mil/uL (Below low threshold) Range: 3.60-5.00 HGB 10.1 g/dL (Below low threshold) Range: 12.0-16.0 HCT 32.8 % (Below low threshold) Range: 36.0-48.0 MCV 110.4 fL (Above high threshold) Range: 80.0-99.0 MCH 34.0 pg (Above high threshold) Range: 27.3-32.5 MCHC 30.8 % (Below low threshold) Range: 32.0-36.0 RDW 14.9 % (Above high threshold) Range: 11.6-14.8 PLATELETS 224 K/uL (Better) Range: 150-400 MPV 9.7 fL (Better) Range: 6.0-11.0 %NEUTRO 66.4 % (Better) Range: 37.0-80.0 %LYMPHS 22.2 % (Better) Range: 13.0-50.0 %MONO 5.8 % (Better) Range: 0.0-12.0 %EOS 3.1 % (Better) Range: 0.0-7.0 %BASO 0.6 % (Better) Range: 0.0-2.5 %HALIMA 1.9 % (Better) Range: 0.0-5.0 NEUTRO 9.1 K/uL (Above high threshold) Range: 2.0-6.9 LYMPHS 3.0 K/uL (Better) Range: 0.6-3.4 MONOS 0.8 K/uL (Better) Range: 0.0-0.9 EOS 0.4 K/uL (Better) Range: 0.0-0.7 BASO 0.1 K/uL (Better) Range: 0.0-0.2 13:01 Comprehensive Metabolic Panel 1212 SODIUM 141 mmol/L (Better) Range: 133-144 POTASSIUM 4.5 mmol/L (Better) Range: 3.5-5.1 CHLORIDE 103 mmol/L (Better) Range: 98-110 CARBON DIOXIDE 34.8 mmol/L (Above high threshold) Range: 23.0-33.0 ANION GAP 3 mmol/L (Below low threshold) Range: 6-16 BUN 28 mg/dL (Above high threshold) Range: 7-18 CREATININE, SERUM 1.45 mg/dL (Above high threshold) Range: 0.55-1.02 Comments: Please note new reference ranges effective 2015.----- BUN:CREATININE RATIO 19 (Better) EST GFR, 42 ml/min (Below low threshold) Range: >60 EST GFR, NON-AFR [place] 34 ml/min (Below low threshold) Range: >60 Comments: EST GFR is reported in ml/min per 1.73 m2 of body surface area. For -Paraguayan, please multiple result by 1.2.----- GLUCOSE 86 mg/dL (Better) Range: 70-100 ALK PHOSPHATASE 85 U/L (Better) Range: 46-116 TOTAL BILIRUBIN 0.20 mg/dL (Better) Range: 0.20-1.00 AST 28 U/L (Better) Range: 8-35 ALT 18 U/L (Better) Range: 14-59 Comments: Please note new reference ranges. Effective 01/04/2015.----- ALBUMIN 3.0 g/dL (Below low threshold) Range: 3.4-5.0 TOTAL PROTEIN 6.5 g/dL (Better) Range: 6.4-8.2 A/G RATIO 0.9 units (Below low threshold) Range: 1.0-1.8 CALCIUM 9.1 mg/dL (Better) Range: 8.5-10.1 13:01 LDH 1140 LDH 363 U/L (Above high threshold) Range: 81-234 Plan of Care Planned Observations* Name Dates Details Planned Goals not documented Goal Planned Encounters* Appointment; Provider: Chapito Muro On 13:30 * Appointment; Provider: Stefan Streeter On 11:45 * Appointment; Provider: Krunal Lennon On 15:15 * Appointment; Provider: Schedule Radiology On 20-Feb-2016 17:30 * Appointment; Provider: Schedule Radiology On 16-Jan-2016 13:40 * Appointment; Provider: Benigno Holt On 07-Jun-2012 14:00 * Appointment; Provider: Bruce Saunders On 11:45 * Appointment; Provider: Raphael Mcduffie On 11-Dec-2010 09:15 * Appointment; Provider: Mikal Felipe On 21-Mar-2008 13:15 Instructions * Instructions not documented Encounters Appointment; Ry Maurer Encounter Diagnosis: Problem not documented On 14:00 Appointment; Chapito Muro Encounter Diagnosis: Problem not documented On 03-Mar-2016 09:15 Appointment; Stuart Blancas Encounter Diagnosis: Problem not documented On 20-Feb-2016 16:05 Appointment; Chapito Muro Encounter Diagnosis: Problem not documented On 06-Feb-2016 13:15 Appointment; Bruce Saunders Encounter Diagnosis: Problem not [...] not documented On 16-Oct-2015 13:30 Appointment; Madiha Dowlign Encounter Diagnosis: Problem not documented On 25-Jul-2015 [...]
--- OUTSIDE RECORDS SUMMARY | 2017-02-26 16:15 | XMS REPORT | Summary of Care ---
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, Z95.810) Status: Active Osteoporosis (733.00, M81.0) Status: Active Non-Hodgkin's lymphoma (202.80, C85.90) Status: Active Hypothyroidism (244.9, E03.9) Status: Active Hypertension (401.9, I10) Status: Active Hyperlipidemia (272.4, E78.5) Status: Active Hypercholesteremia (272.0, E78.0) Status: Active History of aortic valve replacement with bioprosthetic valve (V42.2, Z95.4) Status: Active Congestive heart failure (428.0, I50.9) Status: Active CKD (chronic kidney disease), stage IV (585.4, N18.4) Status: Active Chronic obstructive pulmonary disease (496, J44.9) Status: Active Asthma (493.90, J45.909) Status: Active Leukocytosis (288.60, D72.829) Status: Active Dehydration, mild (276.51, E86.0) Status: Active Elevated brain natriuretic peptide (BNP) level (790.99, R79.89) Status: Active Acute right lower quadrant pain (789.03, R10.31) Status: Active Nausea (787.02, R11.0) Status: Active Abdominal pain (789.00, R10.9) Status: Active CKD (chronic kidney disease) stage 3, GFR 30-59 ml/min (585.3, N18.3) Status: Active Anemia of renal disease (285.21, D63.1) Status: Active Localized edema (782.3, R60.0) Status: Active Hyperkalemia (276.7, E87.5) Status: Active Medications Name Dates Details Multi-Day [...] Refills: 1 Stefan Streeter M.D.* Started 04-Dec-2014 ActiveIpratropium-Albuterol 0.5-2.5 (3) MG/3ML Inhalation Solution INHALE [...] Refills: 3 Chapito Muro * Started 19-Jan-2014 ActiveFurosemide 40 MG Oral Tablet take one [...] Refills: 3 Chapito Muro * Started 10-Oct-2013 ActivePantoprazole Sodium 40 MG Oral Tablet Delayed Release take 1 tab daily * Quantity: 30 Refills: 5 EdtomaChapito willson * Started 15-Aug-2014 ActiveAcyclovir 400 MG Oral Tablet TAKE 1 TABLET TWICE DAILY. * Quantity: 60 Refills: 3 Chapito Muro * Started 15-Aug-2014 ActiveLORazepam 0.5 MG Oral Tablet TAKE 1 TABLET 3 TIMES DAILY NEEDED * Quantity: 90 Refills: 0 Chapito Muro * Started 15-Aug-2014 ActivePropranolol HCl - 40 MG Oral Tablet take 11/2 tablets twice daily * Quantity: 90 Refills: 1 Chapito Muro * Started 07-Mar-2015 Active Allergies [...] Immunization Name Dates Details Influenza Lot #: [id number] Administered on:02-Aug-2010 Influenza Lot #: [id number] Administered on:24-Aug-2012 Pneumo (Pneumovax) Lot #: [id number] Administered on:24-Aug-2012 Fluzone High-Dose 0.5 ML Intramuscular Suspension Prefilled Syringe Lot #: [id number] Administered on:25-Jul-2015 Tdap (Adacel) Lot #: [id number] Administered on:05-Nov-2015 Family History natural son* Name [...] smoker Vital Signs Date Test Result Details 15:30 BP Systolic 138 mm[Hg] Status: BP Diastolic 82 mm[Hg] Status: Heart Rate 76 /min Status: Weight 129.375 lb Status: Body Mass Index Calculated 22.92 kg/m2 Status: Body Surface Area Calculated 1.61 m2 Status: 14:17 BP Systolic 136 mm[Hg] Status: BP Diastolic 70 mm[Hg] Status: Heart Rate 66 /min Status: Respiration Rate 20 /min Status: Height 63 in Status: Weight 127 lb Status: O2 SAT 96 % Status: FiO2 flow rate 2 L/min Status: Body Mass Index Calculated 22.5 kg/m2 Status: Body Surface Area Calculated 1.59 m2 Status: Results Date Description Value Details 18-Mar-2016 12:55 CBC w/ Auto Diff 7150 [...] low threshold) Range: >60 EST GFR, NON-AFR SRI LANKAN 34 ml/min (Below low threshold) Range: >60 Comments: EST GFR is reported in ml/min per 1.73 m2 of body surface area. For -Turkish, please multiple result by 1.2.----- GLUCOSE 86 [...] Planned Encounters* Appointment; Provider: Krunal Lennon On 14-Jul-2016 15:15 * Appointment; Provider: Chapito Muro On 13:30 * Appointment; Provider: Stefan Streeter On 11:45 * Appointment; Provider: Ry Maurer On 14:30 * Appointment; Provider: Schedule Radiology On 20-Feb-2016 17:30 * Appointment; Provider: Schedule Radiology On 16-Jan-2016 13:40 * Appointment; Provider: Benigno Holt On 07-Jun-2012 14:00 * Appointment; Provider: Bruce Saunders On 11:45 * Appointment; Provider: Raphael Mcduffie On 11-Dec-2010 09:15 * Appointment; Provider: Mikal Felipe On 21-Mar-2008 13:15 Instructions * Instructions not documented Encounters Appointment; Krunal Lennon Encounter Diagnosis: Problem not documented On 15:15 Appointment; Ry Maurer Encounter Diagnosis: Problem not [...]
--- OUTSIDE RECORDS SUMMARY | 2017-02-26 16:15 | XMS REPORT | Referral Summary ---
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[employer] Name Role Phone Doug Muro Primary Care Physician [phone] Encounter [facility] Date(s): 06/04/16 - 06/07/16 [facility] [address] [place] [address] [phone] Discharge Disposition: 03-[facility] Facility Attending Physician: Matty Law MD Admitting Physician: Matty Law MD Vital Signs Most recent to 1 oldest [Reference Range]: Temperature Skin 36.3 degC [36-37 degC] (06/04/16 6:31 AM) Temperature Temporal 36.6 degC Artery [36.3-37.8 (06/07/16 11:42 AM) degC] Apical Heart Rate 60 bpm [60-100 bpm] (06/07/16 11:39 AM) Peripheral Pulse 60 bpm Rate [60-100 bpm] (06/07/16 11:42 AM) Peripheral Pulse 71 bpm Rate with Activity (06/05/16 10:19 AM) Heart Rate Monitored 59 bpm [60-100 bpm] *LOW* (06/07/16 12:00 PM) Respiratory Rate 20 br/min [14-20 br/min] (06/07/16 12:00 PM) Blood Pressure 148/69 mmHg [90-140/60-90 mmHg] *HI* (06/07/16 12:00 PM) Systolic Blood 138 mmHg Pressure with (06/05/16 10:19 AM) Activity Diastolic Blood 74 mmHg Pressure with (06/05/16 10:19 AM) Activity Mean Arterial 112 mmHg Pressure, Cuff (06/07/16 12:00 PM) Blood Pressure 114/51 mmHg Invasive (06/04/16 10:00 AM) [90-140/60-90 mmHg] Mean Arterial 74 mmHg Pressure, Invasive (06/04/16 10:00 AM) SpO2 97 % (06/07/16 12:00 PM) Remote Telemetry Ongoing (06/05/16 4:18 AM) Problem List Condition Effective Dates Status Health Status Informant Renal Active dysfunction(Confirme d) Acute Active pain(Confirmed) Anxiety(Confirmed) Active patient Aortic valve Active stenosis(Confirmed) At risk for Active infection(Confirmed) 1 At risk for Active injury(Confirmed)2, 3 At risk of pressure Resolved sore(Confirmed) Bleeding Active precautions(Confirme d)4 Pacemaker(Confirmed) Active patient COPD (chronic Active obstructive pulmonary disease)(Confirmed) CHF (congestive Active patient heart failure)(Confirmed) CAD (coronary artery Active patient disease)(Confirmed) Depression(Confirmed Active patient ) Dyslipidemia(Confirm Active ed) Valvular heart Active disease(Confirmed) HTN Active (hypertension)(Confi rmed) Knowledge Active deficit(Confirmed)5 Myalgia(Confirmed) Active patient Non Hodgkin's Active lymphoma(Confirmed) Tissue perfusion Active alteration(Confirmed )6 1Problem added automatically by system based on initiation of At Risk for Infection in Nutrition Plan of Care 2Problem updated automatically by system based on initiation of Risk for Injury Plan of Care 3Problem added automatically by system based on initiation of Risk for Injury Plan of Care 4Problem added automatically by system based on initiation of Bleeding Precautions Plan of Care 5Problem added automatically by system based on initiation of Knowledge Deficit Plan of Care 6Problem added automatically by system based on initiation of Tissue Perfusion Cerebral Plan of Care Allergies, Adverse Reactions, Alerts Substance Reaction Severity Status Ceftin Active cefuroxime Adverse Reaction Medium Active cephalosporins Active Medications acyclovir 400 mg oral tablet 400 mg 1 tabs, Oral, BID, 0 Refill(s) Start Date: 04/08/16 Status: Ordered Align 4 mg oral capsule 4 mg 1 caps, Oral, Daily, # 28 caps, 0 Refill(s) Start Date: 05/09/16 Status: Ordered allopurinol 300 mg oral tablet 300 mg 1 tabs, Oral, Daily, 0 Refill(s) Start Date: 04/08/16 Status: Ordered aspirin 81 mg oral tablet, chewable 81 mg 1 tabs, Oral, Daily, 0 Refill(s) Start Date: 06/06/16 Status: Ordered atorvastatin 20 mg oral tablet 20 mg 1 tabs, Oral, Bedtime (once a day), # 30 tabs, 5 Refill(s) Start Date: 06/06/16 Status: Ordered Brovana 15 mcg/2 mL inhalation solution 1 Each, NEB, BID, As directed, # 60 Each, 0 Refill(s) Start Date: 04/08/16 Status: Ordered Cymbalta 60 mg oral delayed release capsule 60 mg 1 caps, Oral, Daily, 0 Refill(s) Start Date: 04/08/16 Status: Ordered digoxin 125 mcg (0.125 mg) oral tablet 125 mcg 1 tabs, Oral, Daily, # 30 tabs, 5 Refill(s) Start Date: 06/06/16 Status: Ordered ferrous sulfate 325 mg (65 mg elemental iron) oral tablet 325 mg 1 tabs, Oral, Daily, 0 Refill(s) Start Date: 04/08/16 Status: Ordered folic acid 1 mg oral tablet 1 mg 1 tabs, Oral, Daily, 0 Refill(s) Start Date: 04/08/16 Status: Ordered Fosamax 70 mg oral tablet 70 mg 1 tabs, Oral, qWeek, 0 Refill(s) Start Date: 04/08/16 Status: Ordered furosemide 40 mg oral tablet 40 mg 1 tabs, Oral, Daily, # 30 tabs, 4 Refill(s) Start Date: 06/06/16 Status: Ordered ipratropium 500 mcg/2.5 mL inhalation solution 0.5 mg 2.5 mL, NEB, q2hr (scheduled), Other (See Comment), 0 Refill(s) Start Date: 06/06/16 Status: Ordered ipratropium 500 mcg/2.5 mL inhalation solution 0.5 mg 2.5 mL, NEB, BID, 0 Refill(s) Start Date: 06/06/16 Status: Ordered lisinopril 20 mg oral tablet 20 mg 1 tabs, Oral, Daily, # 30 tabs, 3 Refill(s) Start Date: 06/06/16 Status: Ordered LORazepam 0.5 mg oral tablet 0.5 mg 1 tabs, Oral, TID, as needed for anxiety, 0 Refill(s) Start Date: 04/08/16 Status: Ordered MiraLax 17 g, Oral, Daily, Constipation, 0 Refill(s) Start Date: 04/08/16 Status: Ordered mirtazapine 45 mg oral tablet 22.5 mg 0.5 tabs, Oral, Bedtime (once a day), 0 Refill(s) Start Date: 04/08/16 Status: Ordered [facility] [place] Pt receives IVIG every 4 weeks. Last dose was April 02, 2016, 0 Refill(s) Start Date: 04/09/16 Status: Ordered multivitamin 1 tablet, Oral, Daily, 0 Refill(s) Start Date: 04/08/16 Status: Ordered Plavix 75 mg oral tablet 75 mg 1 tabs, Oral, Daily, # 30 tabs, 6 Refill(s) Start Date: 06/06/16 Status: Ordered potassium chloride 20 mEq oral tablet, extended release 20 mEq 1 tabs, Oral, Daily, # 30 tabs, 6 Refill(s) Start Date: 06/06/16 Status: Ordered propranolol 40 mg oral tablet 1 1/2 tabs, Oral, BID, 0 Refill(s) Start Date: 04/09/16 Status: Ordered Rituxan See Instructions, Takes every 8 weeks. Last dose was April 07, 2016, 0 Refill(s) Start Date: 04/09/16 Status: Ordered rOPINIRole 2 mg oral tablet 2 mg 1 tabs, Oral, Bedtime (once a day), 0 Refill(s) Start Date: 04/08/16 Status: Ordered Tylenol Caplet 650 mg, Oral, q4hr, as needed for pain, 0 Refill(s) Start Date: 04/16/16 Status: Ordered Results Blood Gases Most recent to 1 oldest [Reference Range]: PCO2 Arterial POC 76 mmHg [35-45 mmHg] *HHI* (06/04/16 8:12 AM) CO2 Totl Art [23-27 34 mEq/L mEq/L] *HI* (06/04/16 8:12 AM) Bicarbonate Arterial 32 mEq/L POC [22-26 mEq/L] *HI* (06/04/16 8:12 AM) Base Excess Arterial 4 POC [0-2] *HI* (06/04/16 8:12 AM) O2 Saturation 99.0 % Arterial POC *HI* [90.0-97.0 %] (06/04/16 8:12 AM) pH Arterial POC 7.23 [7.35-7.45] *LOW* (06/04/16 8:12 AM) PO2 Arterial POC 160 mmHg [80-100 mmHg] *HI* (06/04/16 8:12 AM) Hematology Most recent to 1 oldest [Reference Range]: WBC [4.8-10.8 15.5 10*3/uL 10*3/uL] *HI* (06/07/16 4:08 AM) RBC [4.00-5.20] 2.74 *LOW* (06/07/16 4:08 AM) Hgb [12.0-16.0 8.7 gm/dL gm/dL] *LOW* (06/07/16 4:08 AM) Hct [37.0-47.0 %] 27.6 % *LOW* (06/07/16 4:08 AM) MCV [82.0-99.0 fL] 100.7 fL *HI* (06/07/16 4:08 AM) MCH [27.0-32.0 pg] 31.8 pg (06/07/16 4:08 AM) MCHC [32.0-36.0 31.5 gm/dL gm/dL] *LOW* (06/07/16 4:08 AM) RDW [11.5-14.5 %] 17.9 % *HI* (06/07/16 4:08 AM) Platelet [150-400 180 10*3/uL 10*3/uL] (06/07/16 4:08 AM) MPV [9.4-12.4 fL] 11.9 fL (06/07/16 4:08 AM) Coagulation Most recent to 1 oldest [Reference Range]: INR [0.9-1.2] 1.1 (06/04/16 8:45 AM) PTT [25.0-35.0 85.9 seconds seconds] *HI* (06/04/16 8:45 AM) ACT [100-146 153 seconds seconds] *HI* (06/04/16 8:45 AM) Chemistry Most recent to 1 oldest [Reference Range]: Sodium Lvl [136-144 141 mEq/L mEq/L] (06/07/16 4:08 AM) Potassium Lvl 4.0 mEq/L [3.6-5.1 mEq/L] (06/07/16 4:08 AM) Chloride [99-109 102 mEq/L mEq/L] (06/07/16 4:08 AM) CO2 [22-32 mEq/L] 34 mEq/L *HI* (06/07/16 4:08 AM) AGAP [3-20] 5 (06/07/16 4:08 AM) BUN [4-20 mg/dL] 29 mg/dL *HI* (06/07/16 4:08 AM) Glucose Lvl [70-100 104 mg/dL mg/dL] *HI* (06/07/16 4:08 AM) Creatinine Lvl 1.02 mg/dL [0.44-1.03 mg/dL] (06/07/16 4:08 AM) eGFR [>60] 52 1 *ABN* (06/07/16 4:08 AM) Calcium Lvl 9.0 mg/dL [8.6-10.0 mg/dL] (06/07/16 4:08 AM) Magnesium Lvl 2.1 mg/dL [1.8-2.5 mg/dL] (06/07/16 4:08 AM) Sodium Arterial NPT 145 mEq/L [136-144 mEq/L] *HI* (06/04/16 8:12 AM) Potassium Arterial 3.7 mEq/L 2 NPT [3.6-5.1 mEq/L] (06/04/16 8:12 AM) Calcium Ionized 1.10 mmol/L Arterial NPT *LOW* [1.19-1.41 mmol/L] (06/04/16 8:12 AM) HCT Arterial NPT 24.0 % (06/04/16 8:12 AM) HGB Arterial NPT 8.2 gm/dL (06/04/16 8:12 AM) Arterial Glucose NPT 164 mg/dL [70-100 mg/dL] *HI* (06/04/16 8:12 AM) Activated Clotting 128 seconds Time NPT [100-146 (06/04/16 8:11 AM) seconds] Blood Glucose, 100 mg/dL Capillary [70-100 (06/06/16 11:11 AM) mg/dL] Estimated Creatinine 29.49 mL/min Clearance (06/07/16 5:05 AM) 1Result Comment: Multiply eGFR results by 1.21 for race. 2Result Comment: This test was performed on a whole blood specimen. The presence or absence of hemolysis cannot be assessed. Hemolysis can falsely elevate potassium levels. Normals are for venous specimens only. Blood Bank Results Most recent to 1 oldest [Reference Range]: ABO/Rh B POS (06/04/16 6:37 AM) Antibody Screen Tube NEG (06/04/16 6:37 AM) Immunizations No data available for this section Procedures Procedure Date Related Diagnosis Body Site Replacement Aortic Valve Transcatheter 06/04/16 Transfemoral Approach1 Angioplasty or Stent Percutaneous 05/09/16 Transluminal Coronary2 Transesophageal echocardiogram 02/05/16 Bone density scan 01/15/16 Mammogram 01/15/16 Malignant lymphoma of spleen 2011 AVR - Aortic valve replacement3 03/10/03 Hx of mitral valve repair4 03/10/03 Permanent cardiac pacemaker5, 6 1995 Appendectomy Cholecystectomy Colonoscopy Hysterectomy Rotator cuff repair7 Splenectomy 1auto-populated from documented surgical case 2auto-populated from documented surgical case 3[employer] 21 mm bioprosthetic valve serial #[id number], model 2700 4used a Chavez Stitch 5Medtronic 6Intital implant was 1995 and replaced in 2002 7RIGHT Social History Social History Type Response Smoking Status Never smoker Assessment and Plan No data available for this section
--- OUTSIDE RECORDS SUMMARY | 2017-02-26 16:15 | XMS REPORT | Summary of Care ---
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 Marciano Unavailable Unavailable Abdiaziz Meng M.D. 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, 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 Dysuria (788.1, R30.0) Status: Active Abdominal pain (789.00, R10.9) Status: Active Essential hypertension (401.9, I10) Status: Active 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, 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 Coronary arteriosclerosis (414.00, I25.10) Status: Active Left leg swelling (729.81, M79.89) Status: Active Itching (698.9, L29.9) Status: Active Medications Name Dates Details Multi-Day [...] 11 Ferdinand HammondsStefan * Start 23-Nov-2012 Active Budesonide 0.5 MG/2ML Inhalation Suspension USE 1 UNIT DOSE VIA NEBULIZER TWO TIMES A DAY (dx:J44.9) * Quantity: 120 Refills: 11 Ferdiannd HammondsStefan * Start 01-Nov-2015 Active BusPIRone HCl - [...] 0 Chapito Muro * Start 09-Jul-2016 Active Levothyroxine [...] EVERY EVENING * Quantity: 30 Refills: 1 EdemmanuelChapito * Start 16-Jan-2017 Active Pantoprazole Sodium 40 MG Oral Tablet Delayed Release TAKE 1 TABLET BY MOUTH TWICE A DAY * Quantity: 60 Refills: 0 BhaskarNewChapito * Start 16-Jan-2017 Active Digoxin 125 MCG Oral Tablet TAKE 1 TABLET BY MOUTH DAILY * Quantity: 30 Refills: 1 Bhaskar Chapito * Start 16-Jan-2017 Active Allopurinol 300 MG Oral Tablet TAKE 1 TABLET BY MOUTH DAILY * Quantity: 30 Refills: 1 EdemmanuelChapito * Start 16-Jan-2017 Active Doxepin HCl - 10 MG Oral Capsule TAKE 1 CAPSULE AT BEDTIME for itching * Quantity: 1 Refills: 1 Carito Meng M.D. * Start 07-Feb-2017 Active 30 Capsule Bottle LORazepam 0.5 MG Oral Tablet TAKE 1 TABLET TWICE DAILY. * Quantity: 60 Refills: 1 Chapito Muro * Start 15-Aug-2014 Active Allergies and Adverse Reactions Name [...] 11-Feb-2017 THYROID STIM. HORMONE [id number] Ordered: 11-Feb-2017 Urinalysis, Reflex to Microscopic or Culture PRN [id number] Ordered: 12-Feb-2017 Immunization Name Dates Details Influenza Lot #: [id number] on: 02-Aug-2010 Influenza Lot #: [id number] on: 24-Aug-2012 Pneumo (Pneumovax) Lot #: [id number] on: 24-Aug-2012 Fluzone High-Dose 0.5 ML Intramuscular Suspension Prefilled Syringe Lot #: [id number] on: 25-Jul-2015 Tdap (Adacel) Lot #: [id number] on: 05-Nov-2015 Fluzone High-Dose 0.5 ML Intramuscular Suspension Prefilled Syringe Lot #: [id number] on: 02-Sep-2016 Family History Name Dates Details [...] smoker Vital Signs Date Test Result Details 11-Feb-2017 15:12 BP Systolic 96 mm[Hg] Status: [...] Range: Negative-Trace EPITH 0-2 /HPF Range: 0-10 11-Feb-2017 10:07 CBC w/ Auto Diff 7150 [...] low threshold) Range: >60 EST GFR, NON-AFR [place] 26 ml/min (Below low threshold) Range: >60 [...] COMP (MIN 3V) LT 12-Feb-2017 16:32 Haptoglobin [id number] Comments: Testing performed at: [DA] [facility], [address], Phone: , General Dentist/Owner: KEILA Carranza MD HAPTOGLOBIN 33 mg/dL (Below low threshold) Range: 34-200 13-Feb-2017 09:04 VIVIAN PE and [facility] Serum [id number] Comments: Testing performed at : [DA] [facility], [address], , General Dentist/Owner: KEILA Carranza MD IMMUNOGLOBULIN G, QN, SERUM 632 mg/dL (Below low threshold) Range: 700- 1600 IMMUNOGLOBULIN A, QN, SERUM 56 mg/dL (Below low threshold) Range: 64-422 IMMUNOGLOBULIN M, QN, SERUM 260 mg/dL (Above high threshold) Range: 26- 217 PROTEIN, TOTAL, SERUM 5.7 g/dL (Below low threshold) Range: 6.0-8.5 ALBUMIN 2.9 g/dL Range: 2.9-4.4 CSEMA-1-RKPVXDZP 0.5 g/dL (Above high threshold) Range: 0.0-0.4 NFGUH-1-KYLCTCUM 0.7 g/dL Range: 0.4-1.0 BETA GLOBULIN 0.8 g/dL Range: 0.7-1.3 GAMMA GLOBULIN 0.8 g/dL Range: 0.4-1.8 M-SPIKE 0.1 g/dL (Above high threshold) Range: Not Observed GLOBULIN, TOTAL 2.8 g/dL Range: 2.2-3.9 A/G RATIO 1.1 Range: 0.7-1.7 IMMUNOFIXATION RESULT, SERUM Comment Comments: 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 On 19-Mar-2017 14:00 Appointment; Provider: Krunal Lennon M.D. On 03-Mar-2017 14:45 Instructions Name Dates Details Instructions not documented [...]
--- OUTSIDE RECORDS SUMMARY | 2017-02-26 16:16 | XMS REPORT | Referral Summary ---
Author Author [facility] Organization [facility] Address Unknown Phone Unavailable Care Team Providers Care Speed Belt Sander Tender Name Role Phone Doug Muro Primary Care Physician [phone] Encounter VC Date(s): 06/02/16 - 06/02/16 [facility] [address] [place] [address] Discharge Disposition: 01-Home or Self Care Attending Physician: Matty Law MD Admitting Physician: Matty Law MD Vital Signs Most recent to 1 oldest [Reference Range]: Temperature Temporal 36.4 degC Artery [36.3-37.8 (06/02/16 12:11 PM) degC] Heart Rate Monitored 61 bpm [60-100 bpm] (06/02/16 12:11 PM) Respiratory Rate 16 br/min [14-20 br/min] (06/02/16 12:11 PM) Blood Pressure 142/68 mmHg [90-140/60-90 mmHg] *HI* (06/02/16 12:11 PM) SpO2 95 % (06/02/16 12:11 PM) Problem List Condition Effective Dates Status Health Status Informant Renal Active dysfunction(Confirme d) Anxiety(Confirmed) Active patient Aortic valve Active stenosis(Confirmed) At risk for Resolved injury(Confirmed)1 Pacemaker(Confirmed) Active patient COPD (chronic Active obstructive pulmonary disease)(Confirmed) CHF (congestive Active patient heart failure)(Confirmed) CAD (coronary artery Active patient disease)(Confirmed) Depression(Confirmed Active patient ) Dyslipidemia(Confirm Active ed) Valvular heart Active disease(Confirmed) HTN Active (hypertension)(Confi rmed) Myalgia(Confirmed) Active patient Non Hodgkin's Active lymphoma(Confirmed) Tissue perfusion Active alteration(Confirmed )2 1Problem added automatically by system based on initiation of Risk for Injury Plan of Care 2Problem added automatically by system based on initiation [...] Refill(s) Start Date: 04/08/16 Status: Ordered aspirin 325 mg oral tablet 325 mg 1 tabs, Oral, Daily, 0 Refill(s) Start Date: 05/10/16 Status: Ordered atorvastatin 20 mg oral tablet 20 mg 1 tabs, Oral, Bedtime (once a day), 0 Refill(s) Start Date: 05/10/16 Status: Ordered Brovana 15 mcg/2 mL inhalation solution 1 Each, NEB, BID, As directed, # 60 Each, 0 Refill(s) Start Date: 04/08/16 Status: Ordered budesonide 1 mg/2 mL inhalation suspension 1 mg 2 mL, NEB, Daily, # 60 mL, 0 Refill(s) Start Date: 04/16/16 Status: Ordered Cymbalta 60 mg oral delayed release capsule 60 mg 1 caps, Oral, Daily, 0 Refill(s) Start Date: 04/08/16 Status: Ordered ferrous sulfate 325 mg (65 mg elemental iron) oral tablet 325 mg 1 tabs, Oral, Daily, 0 Refill(s) Start Date: 04/08/16 Status: Ordered folic acid 1 mg oral tablet 1 mg 1 tabs, Oral, Daily, 0 Refill(s) Start Date: 04/08/16 Status: Ordered Fosamax 70 mg oral tablet 70 mg 1 tabs, Oral, qWeek, 0 Refill(s) Start Date: 04/08/16 Status: Ordered furosemide 20 mg oral tablet 20 mg 1 tabs, Oral, Daily, Fluid Overload Symptoms, take midday as needed, 0 Refill(s) Start Date: 05/09/16 Status: Ordered furosemide 40 mg oral tablet 40 mg 1 tabs, Oral, Daily, 0 Refill(s) Start Date: 04/08/16 Status: Ordered LORazepam 0.5 mg oral tablet 0.5 mg 1 tabs, Oral, TID, as needed for anxiety, 0 Refill(s) Start Date: 04/08/16 Status: Ordered MiraLax 17 g, Oral, Daily, Constipation, 0 Refill(s) Start Date: 04/08/16 Status: Ordered mirtazapine 45 mg oral tablet 22.5 mg 0.5 tabs, Oral, Bedtime (once a day), 0 Refill(s) Start Date: 04/08/16 Status: [place] [facility] [place] receives IVIG every 4 weeks. Last dose was April 02, 2016, 0 Refill(s) Start Date: 04/09/16 Status: Ordered multivitamin 1 tablet, Oral, Daily, 0 Refill(s) Start Date: 04/08/16 Status: Ordered pantoprazole 40 mg oral delayed release tablet 40 mg 1 tabs, Oral, Daily, 0 Refill(s) Start Date: 04/09/16 Status: Ordered Plavix 75 mg oral tablet 75 mg 1 tabs, Oral, Daily, 0 Refill(s) Start Date: 05/10/16 Status: Ordered propranolol 40 mg oral tablet [...] 0 Refill(s) Start Date: 04/16/16 Status: Ordered Ventolin HFA puffs, Inhalation, QID, as needed for wheezing, 0 Refill(s) Start Date: 04/09/16 Status: Ordered Results Hematology Most recent to 1 oldest [Reference Range]: WBC [4.8-10.8 15.7 10*3/uL 10*3/uL] *HI* (06/02/16 12:24 PM) RBC [4.00-5.20] 2.44 *LOW* (06/02/16 12:24 PM) Hgb [12.0-16.0 7.9 gm/dL gm/dL] *LOW* (06/02/16 12:24 PM) Hct [37.0-47.0 %] 26.1 % *LOW* (06/02/16 12:24 PM) MCV [82.0-99.0 fL] 107.0 fL *HI* (06/02/16 12:24 PM) MCH [27.0-32.0 pg] 32.4 pg *HI* (06/02/16 12:24 PM) MCHC [32.0-36.0 30.3 gm/dL gm/dL] *LOW* (06/02/16 12:24 PM) RDW [11.5-14.5 %] 15.1 % *HI* (06/02/16 12:24 PM) Platelet [150-400 241 10*3/uL 10*3/uL] (06/02/16 12:24 PM) MPV [9.4-12.4 fL] 11.6 fL (06/02/16 12:24 PM) Neutrophils [51-75 71 % %] (06/02/16 12:24 PM) Lymphocytes [20-46 13 % %] *LOW* (06/02/16 12:24 PM) Monocytes [4-11 %] 3 % *LOW* (06/02/16 12:24 PM) Eosinophils [0-4 %] 12 % *HI* (06/02/16 12:24 PM) Basophils [0-2 %] 2 % (06/02/16 12:24 PM) Neutro Absolute 11.15 10*3 [1.90-7.00 10*3] *HI* (06/02/16 12:24 PM) Lymph Absolute 2.04 10*3 [0.80-3.30 10*3] (06/02/16 12:24 PM) Ransom Absolute 0.47 10*3 [0.30-1.00 10*3] (06/02/16 12:24 PM) Eos Absolute 1.88 10*3 [0.00-0.50 10*3] *HI* (06/02/16 12:24 PM) Baso Absolute 0.31 10*3 [0.00-0.20 10*3] *HI* (06/02/16 12:24 PM) Hypochrom Occasional *ABN* (06/02/16 12:24 PM) Polychrom Occasional *ABN* (06/02/16 12:24 PM) Target Cell Occasional *ABN* (06/02/16 12:24 PM) Schistocyte Occasional *ABN* (06/02/16 12:24 PM) Stippled RBC Occasional *ABN* (06/02/16 12:24 PM) Nucleated RBC 1.6 /100 WBC Automated [0 /100 (06/02/16:24 PM) WBC] Differential Reviewed (06/02/16:24 PM) Coagulation Most recent to 1 oldest [Reference Range]: INR [0.9-1.2] 1.0 (06/02/16:24 PM) PTT [25.0-35.0 38.7 seconds seconds] *HI* (06/02/16:24 PM) Fibrinogen Lvl 546 mg/dL [187-520 mg/dL] *HI* (06/02/16:24 PM) Chemistry Most recent to 1 oldest [Reference Range]: Sodium Lvl [136-144 140 mEq/L mEq/L] (06/02/16:24 PM) Potassium Lvl 3.6 mEq/L [3.6-5.1 mEq/L] (06/02/16:24 PM) Chloride [99-109 95 mEq/L mEq/L] *LOW* (06/02/16:24 PM) CO2 [22-32 mEq/L] 34 mEq/L *HI* (06/02/16 12:24 PM) AGAP [3-20] 11 (06/02/16 12:24 PM) BUN [4-20 mg/dL] 32 mg/dL *HI* (06/02/16 12:24 PM) Glucose Lvl [70-100 102 mg/dL mg/dL] *HI* (06/02/16 12:24 PM) Creatinine Lvl 1.22 mg/dL [0.44-1.03 mg/dL] *HI* (06/02/16 12:24 PM) eGFR [>60] 42 1 *ABN* (06/02/16 12:24 PM) Calcium Lvl 9.4 mg/dL [8.6-10.0 mg/dL] (06/02/16 12:24 PM) Albumin Lvl [3.5-4.8 2.9 gm/dL gm/dL] *LOW* (06/02/16 12:24 PM) Total Protein 5.9 gm/dL [6.1-7.9 gm/dL] *LOW* (06/02/16:24 PM) Globulin [1.9-4.3 3.0 gm/dL gm/dL] (06/02/16 12:24 PM) ALT [14-54 U/L] 12 U/L *LOW* (06/02/16:24 PM) AST [15-41 U/L] 27 U/L (06/02/16:24 PM) Alk Phos [26-104 73 U/L U/L] (06/02/16 12:24 PM) Bili Total [0.2-1.2 0.5 mg/dL 2 mg/dL] (06/02/16 12:24 PM) BNP [0-99 pg/mL] 705 pg/mL *HI* (06/02/16:24 PM) Prealbumin [18-38 23 mg/dL mg/dL] (06/02/16:24 PM) Hgb A1c [4.1-5.6 %] 5.3 % (06/02/16 12:24 PM) eAvg Glucose 105.4 mg/dL (06/02/16 12:24 PM) 1Result Comment: Multiply eGFR results by 1.21 for race. 2Result Comment: Naproxen, specifically the metabolite O-desmethylnaproxen, may cause spurious elevation in Total Bilirubin levels. Urinalysis Most recent to 1 oldest [Reference Range]: UA Color Straw (06/02/16 12:30 PM) UA Appear Sl Cloudy (06/02/16 12:30 PM) UA pH [5.0-8.0] 5.0 (06/02/16 12:30 PM) UA Leuk Est Pos 3+ [Negative] *ABN* (06/02/16 12:30 PM) UA Nitrite Negative [Negative] (06/02/16 12:30 PM) UA Protein Pos 2+ [Negative] *ABN* (06/02/16 12:30 PM) UA Glucose Negative [Negative] (06/02/16 12:30 PM) UA Ketones Negative [Negative] (06/02/16 12:30 PM) UA Urobilinogen Negative [<1.0] (06/02/16 12:30 PM) UA Bili [Negative] Negative (06/02/16 12:30 PM) UA Blood [Negative] Negative (06/02/16 12:30 PM) UA Spec Grav 1.010 [1.003-1.030] (06/02/16 12:30 PM) Type Clean Catch (06/02/16 12:30 PM) UA WBC [0-4 /HPF] >50 /HPF *ABN* (06/02/16 12:30 PM) UA RBC [0-2] 0-2 (06/02/16 12:30 PM) Epithelial Cells 0-2 (06/02/16 12:30 PM) UA Bacteria Moderate *ABN* (06/02/16 12:30 PM) UA Hyal Cast [0-3] 7-12 *ABN* (06/02/16 12:30 PM) UA Mucous Present (06/02/16 12:30 PM) Immunizations No data available for this section Procedures Procedure Date Related Diagnosis Body Site Angioplasty or Stent Percutaneous 05/09/16 Transluminal Coronary1 Transesophageal echocardiogram 02/05/16 Bone density scan 01/15/16 Mammogram 01/15/16 Malignant lymphoma of spleen 2011 AVR - Aortic valve replacement2 03/10/03 Hx of mitral valve repair3 03/10/03 Permanent cardiac pacemaker4, 5 1995 Appendectomy Cholecystectomy Colonoscopy Hysterectomy Rotator cuff repair6 Splenectomy 1auto-populated from documented surgical case 2[employer] 21 mm bioprosthetic valve serial #[id number], model 2700 3used a Chavez Stitch 4Medtronic 5Intital implant was 1995 and replaced in 2002 6RIGHT Social History Social History Type Response Smoking Status Never smoker Assessment and Plan No data available for this section
--- OUTSIDE RECORDS SUMMARY | 2017-02-26 16:16 | XMS REPORT | Summary of Care ---
Author Author Chapito Muro Organization Unknown Address [address] [place], [place] [id number] Phone Unavailable Care Team Providers Care Dirt Contractor Name Role Phone Cece Streeter M.D. Unavailable [...] Z09) Status: Active Medications Name Dates Details Potassium Chloride Summer ER 10 MEQ Oral Tablet Extended Release take 2 tabs daily Quantity: 90 Chapito Muro * Start 19-Jan-2014 Active Allopurinol 300 MG Oral Tablet TAKE 1 TABLET BY MOUTH DAILY * Quantity: 30 Refills: 1 Chapito Muro * Start 16-Jan-2017 Active MiraLax Oral Powder MIX 1 CAPFUL IN 8 OUNCES OF WATER AND DRINK DAILY DIRECTED. * Quantity: 1 Refills: 6 * Start 15-Aug-2014 Active Folic Acid 1 MG Oral Tablet Take 1 tablet by mouth every morning * Quantity: 30 Refills: 0 Chapito Muro * Start 16-Jan-2017 Active Propranolol HCl - 40 MG Oral Tablet TAKE 1 AND 1/2 TABLET TABLET BY MOUTH TWICE A DAY * Quantity: 90 Refills: 2 Chapito Muro * Start 30-Dec-2016 Active Atorvastatin Calcium 20 MG Oral Tablet Take 1 tablet by mouth at bedtime * Quantity: 30 Refills: 0 Chapito Muro * Start 16-Jan-2017 Active Clopidogrel Bisulfate 75 MG Oral Tablet TAKE 1 TABLET BY MOUTH EVERY EVENING * Quantity: 30 Refills: 1 Chapito Muro * Start 16-Jan-2017 Active Digoxin 125 MCG Oral Tablet TAKE 1 TABLET BY MOUTH DAILY * Quantity: 30 Refills: 1 Chapito Muro * Start 16-Jan-2017 Active Plavix 75 MG Oral Tablet TAKE 1 TABLET DAILY. * Refills: 0 Chapito Muro * Start 09-Jul-2016 Active BusPIRone HCl - 7.5 MG Oral Tablet TAKE ONE TAB BY MOUT TWICE DAILY * Quantity: 60 Refills: 0 Chapito Muro * Start Active Budesonide 0.5 MG/2ML Inhalation Suspension USE 1 UNIT DOSE VIA NEBULIZER TWO TIMES A DAY (dx:J44.9) * Quantity: 120 Refills: 11 Stefan Streeter M.D. * Start 01-Nov-2015 Active LORazepam 0.5 MG Oral Tablet TAKE 1 TABLET TWICE DAILY. * Quantity: 60 Refills: 1 Chapito Muro * Start 15-Aug-2014 Active Pantoprazole Sodium 40 [...] DYSPNEA * Refills: 0 * Start Active ROPINIRole HCl - 2 MG Oral Tablet Take 1 tablet by mouth at bedtime * Quantity: 30 Refills: 2 Chapito Muro * Start 16-Jan-2017 Active Multi-Day Vitamins TABS I po qd * Refills: 0 * Start 07-Jun-2009 Active Mirtazapine 45 MG Oral Tablet TAKE 1/2 TABLET DAILY * Refills: 0 Stefan Streeter M.D. * Start 10-Oct-2013 Active Doxepin HCl - 10 MG Oral Capsule TAKE 1 CAPSULE AT BEDTIME for itching * Quantity: 1 Refills: 1 Carito Meng M.D. Start 07-Feb-2017 Active 30 Capsule Bottle Levothyroxine Sodium 25 MCG Oral Tablet Take 1 tablet by mouth every morning * Quantity: 30 Refills: 2 Chapito Muro * Start 30-Dec-2016 Active Furosemide 40 MG Oral Tablet take 1 tablet by mouth every day * Quantity: 30 Refills: 2 Bhaskar Chapito * Start 16-Feb-2017 Active Ciprofloxacin HCl - 250 MG Oral Tablet Take 1 tablet twice daily * Quantity: 10 Refills: 0 Bhaskar Chapito * Start 16-Feb-2017 Active Aspirin EC Low Dose 81 MG Oral Tablet Delayed Release TAKE 1 TABLET BY MOUTH DAILY * Quantity: 30 Refills: 0 Chapito Muro * Start 30-Dec-2016 Active Adult Aspirin EC Low Strength 81 MG Oral Tablet Delayed Release * Refills: 0 Henry Mendoza M.D. * Start 05-Jul-2013 Active Ventolin HFA 108 (90 Base) MCG/ACT Inhalation Aerosol Solution 2 puffs every 6 hours as needed * Refills: 0 * Start 15-Aug-2014 Active Ipratropium-Albuterol 0.5-2.5 (3) MG/3ML Inhalation Solution INHALE 1 VIAL Daily (dx:J44.9) * Quantity: 90 Refills: 11 Stefan Streeter M.D. * Start 06-Dec-2012 Active Brovana 15 MCG/2ML Inhalation Nebulization Solution USE VIA NEBULIZER TWO TIMES DAILY (dx:J44.9) * Quantity: 120 Refills: 11 Stefan Streeter M.D. Start 23-Nov-2012 Active Ondansetron 4 MG Oral Tablet Dispersible DISSOLVE ONE TABLET BY MOUTH EVERY 6 HOURS NEEDED FOR NAUSEA * Quantity: 30 Refills: 0 Chapito Muro * Start 25-Jun-2016 Active Mapap 325 MG Oral Tablet TAKE 2 TABLETS BY MOUTH EVERY MORNING AT 0600 FOR SHOULDER PAIN * Quantity: 60 Refills: 0 Chapito Muro * Start 30-Dec-2016 Active Allergies and Adverse Reactions Name Dates [...] 11-Feb-2017 THYROID STIM. HORMONE 3602 Ordered: 11-Feb-2017 CBC w/ Auto Diff 7150 Ordered: 18-Feb-2017 Urinalysis, Reflex to Microscopic or Culture PRN [id number] Ordered: 18-Feb-2017 CBC w/ Auto Diff 7150 Ordered: 24-Feb-2017 RENAL PROFILE 1240 Ordered: 24-Feb-2017 Immunization Name Dates Details Influenza Lot #: [id number] on: 02-Aug-2010 Influenza Lot #: [id number] on: 24-Aug-2012 Pneumo (Pneumovax) Lot #: [id number] on: 24-Aug-2012 Fluzone High-Dose 0.5 ML Intramuscular Suspension Prefilled Syringe Lot #: [id number] on: 25-Jul-2015 Tdap (Adacel) Lot #: [id number] on: 05-Nov-2015 Fluzone High-Dose 0.5 ML Intramuscular Suspension Prefilled Syringe Lot #: [id number] on: 02-Sep-2016 Family History Name Dates Details [...] low threshold) Range: >60 EST GFR, NON-AFR BOLIVIAN 26 ml/min (Below low threshold) Range: >60 [...] COMP (MIN 3V) LT 12-Feb-2017 16:32 Haptoglobin [id number] Comments: Testing performed at: [DA] [facility] [address], [address], Phone: , Principal Ios Developer: KEILA Carranza MD HAPTOGLOBIN 33 mg/dL (Below low threshold) Range: 34-200 13-Feb-2017 09:04 VIVIAN PE and FLC Serum [id number] Comments: Testing performed at : [DA] [facility] [place], [address] [place] [address], [place], [address], , Principal Ios Developer: KEILA Carranza MD IMMUNOGLOBULIN G, QN, SERUM 632 mg/dL (Below low threshold) Range: 700- 1600 IMMUNOGLOBULIN A, QN, SERUM 56 mg/dL (Below low threshold) Range: 64-422 IMMUNOGLOBULIN M, QN, SERUM 260 mg/dL (Above high threshold) Range: 26- 217 PROTEIN, TOTAL, SERUM 5.7 g/dL (Below low threshold) Range: 6.0-8.5 ALBUMIN 2.9 g/dL Range: 2.9-4.4 ZQFDG-6-MZHCWWXM 0.5 g/dL (Above high threshold) Range: 0.0-0.4 MHVIL-1-VKTTAFTN 0.7 g/dL Range: 0.4-1.0 BETA GLOBULIN 0.8 g/dL Range: 0.7-1.3 GAMMA GLOBULIN 0.8 g/dL Range: 0.4-1.8 M-SPIKE 0.1 g/dL (Above high threshold) Range: Not Observed GLOBULIN, TOTAL 2.8 g/dL Range: 2.2-3.9 A/G RATIO 1.1 Range: 0.7-1.7 IMMUNOFIXATION RESULT, SERUM Comment Comments: 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.----- PLEASE NOTE: Comment Comments: Protein electrophoresis scan will follow via computer,mail, or reinforced steel placing supervisor delivery.----- FREE KAPPA LT CHAINS,S 18.55 mg/L [...] /HPF Range: 0-10 16-Feb-2017 09:14 URINE CULTURE [id number] Comments: [facility] performed at: [facility], [address] [place] [address], [phone], Principal Ios Developer: Gigi Alberto D.O., MPHQuest Collection Date/Time: [id number] Results Received Date/Time: [id number] Reported Date/Time: FASTING:NOQuest performed at: [facility], [address] [place] [address], [phone], Principal Ios Developer: Gigi Alberto D.O., MPHQuest Collection Date/Time: [id number] Results Received Date/Time: [id number] Reported Date/Time: FASTING:NOQuest performed at: [facility], [address] [place] [address], [phone], Principal Ios Developer: Gigi Alberto D.O., MPHQuest Collection Date/Time: [id number] Results Received Date/Time: [id number] Reported Date/Time: FASTING:NO CULTURE, URINE, ROUTINE SEE NOTE (Abnormal) Comments: CULTURE, URINE, ROUTINE MICRO NUMBER: [id number] TEST STATUS: FINAL SPECIMEN SOURCE : URINE [...] to to confirm susceptibility to parenteral cefazolin.[KS]----- 23-Feb-2017 14:20 CT AB/ PEL WITHOUT IV OR ORAL CONTRAST Comments: Exam Date : 02/23/2017 12:57Dictation Date: 02/23/2017 14:20 XC AB/PEL W/O ANY CONTRAST Plan of Care Name Dates Details Planned Observations Planned Goals not documented Planned Encounters Appointment; Provider: Chapito Muro On 13:30 Appointment; Provider: Stefan Streeter M.D. On 19-Mar-2017 14:00 Appointment; Provider: Krunal Lennon M.D. On 03-Mar-2017 14:45 Instructions Name Dates Details Instructions not documented Encounters Appointment; Chapito Muro Encounter Diagnosis: Problem not documented On 17-Feb-2017 16:15 Appointment; Chapito Muro Encounter Diagnosis: Problem not [...] Problem not documented On 23-Jul-2016 08:00 Appointment; rBuce Saunders M.D. Encounter Diagnosis: Problem not documented [...]
--- OUTSIDE RECORDS SUMMARY | 2017-02-26 16:17 | XMS REPORT | Continuity of care Document ---
Author Author GENERATED, SYSTEM Organization Unknown Address Unknown Phone Unavailable Purpose Hospital Course Allergies, Adverse Reactions, Alerts * Ceftin causes Unknown. * Latex Allergy has not been assessed. * IV Contrast Allergy has not been assessed. Problems No relevant problems exist. Procedures No relevant procedures performed. Medication Medication reconciliation has not been performed. Results Chemistry from 12/31/2013 3:34 PMANION GAP 5.9 MMOL/L L (8.0-16.0 MMOL/L) BUN/CREATININE RATIO 26.7 H (9.1-17.0 ) BUN 31 MG/DL H (7-18 MG/DL) CALCIUM 9.9 MG/DL (8.5-10.1 MG/DL) CHLORIDE 100 MMOL/L (98-107 MMOL/L) CREATININE 1.16 MG/DL H (0.43-0.83 MG/DL) GFRA EST AFR AMER 51 ML/MIN GFR EST NON AFR CITIZEN OF [place] 44 ML/MIN GLUCOSE 111 MG/DL H (65-99 MG/DL) POTASSIUM 4.3 MMOL/L (3.5-5.1 MMOL/L) SODIUM 138 MMOL/L (136-145 MMOL/L) TCO2 32.1 MMOL/L H (21.0-32.0 MMOL/L) Coagulation from 12/31/2013 3:34 PMPARTIAL THROMBOPLASTIN TIME 24.3 SECONDS (22.0- 28.0 SECONDS) INR 1.0 PROTHROMBIN TIME 10.6 SECONDS (9.4-11.5 SECONDS) CT Scan from 12/31/2013 3:04 PMCT CEREBRAL W/O CONTRAST DATE OF EXAM: Dec 31 2013 3:13PM Proc: CT 0001 - CT CEREBRAL W/O CONTRAST CPT Code(s): 42603-; ; ; INDICATION / CLINICAL HISTORY: \E\fall, injury FINDINGS: There is no evidence of intracranial mass, midline shift or abnormal extraaxial fluid collection. There is no evidence of cerebral edema, hydrocephalus, intracranial hemorrhage or evidence of acute infarct. The bony structures appear intact without evidence of acute fracture. The mastoid air cells and visualized paranasal sinuses appear clear. IMPRESSION: Unremarkable CT of the head. CT SPINE CERVICAL W/O CONTRAST DATE OF EXAM: Dec 31 2013 3:13PM Proc: CT 0051 - CT SPINE CERVICAL W/O CONTRAST CPT Code(s): 82890-; ; ; INDICATION / CLINICAL HISTORY: Head trauma. Fall. FINDINGS: Cervical alignment demonstrates grade 1 anterolisthesis of C4 on C5, and C7 on T1 consistent with degenerative disk disease. 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 No fractures or subluxations are identified. The odontoid and lateral masses appear intact. IMPRESSION: Mild to moderate degenerative disk disease as described above without evidence of acute fracture or subluxation. Hematology from 12/31/2013 3:34 PMHEMATOCRIT 39.1 % (31.2-41.9 %) HEMOGLOBIN 12.6 G/DL (11.0-14.3 G/DL) MCH 31.2 PG (27.0-33.0 PG) MCHC 32.2 G/DL (32.0-36.0 G/DL) MCV 97.1 FL (79.0-98.0 FL) MPV 11.5 FL H (7.4-10.4 FL) PLATELET 200 X10e3/UL (159-386 X10e3/UL) RBC 4.02 X10e6/UL (3.63-4.92 X10e6/UL) RDW 13.9 % (12.3-17.0 %) RDWSD 46.8 (37.1-47.8 ) WBC 12.8 X10e3/UL H (3.6-11.2 X10e3/UL) ABSOLUTE BASOPHILS 0.1 X10e3/UL (0.0-0.2 X10e3/UL) AUTOMATED DIFF PERFORMED ABSOLUTE EOSINOPHILS 0.4 X10e3/UL (0.0-0.5 X10e3/UL) ABSOLUTE LYMPHOCYTES 2.8 X10e3/UL (1.0-3.0 X10e3/UL) ABSOLUTE MONOCYTES 0.9 X10e3/UL (0.3-1.0 X10e3/UL) ABSOLUTE NEUTROPHILS 8.5 X10e3/UL H (1.8-7.8 X10e3/UL) BASOPHILS 0.6 % EOSINOPHILS 3.5 % LYMPHOCYTES 22.1 % MONOCYTES 7.4 % SEGS 66.4 %
--- OUTSIDE RECORDS SUMMARY | 2017-02-26 16:17 | XMS REPORT | Summary of Care ---
Author Author Krunal Lennon M.D. 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 Unavailable Unavailable Krunal Lennon M.D. 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 Start 04-Dec-2014 Active Ipratropium-Albuterol 0.5-2.5 (3) MG/3ML Inhalation Solution INHALE 1 VIAL Daily (dx:J44.9) * Quantity: 90 Refills: 11 Stefan Streeter M.D. Start 06-Dec-2012 Active Brovana 15 MCG/2ML Inhalation [...] 7150 Ordered: Comprehensive Metabolic Panel 1212 Ordered: Cortisol - AM [id number] Ordered: 09-Jul-2016 Immunization Name Dates Details Influenza Lot #: [id number] on: 02-Aug-2010 Influenza Lot #: [id number] on: 24-Aug-2012 Pneumo (Pneumovax) Lot #: [id number] on: 24-Aug-2012 Fluzone High-Dose 0.5 ML Intramuscular Suspension Prefilled Syringe Lot #: [id number] on: 25-Jul-2015 Tdap (Adacel) Lot #: [id number] on: 05-Nov-2015 Family History Name Dates Details [...] smoker Vital Signs Date Test Result Details 14-Jul-2016 15:01 BP Systolic 102 mm[Hg] Status: Comments: Location: ; Position: BP Diastolic 58 mm[Hg] Status: Comments: Location: ; Position: Heart Rate 72 /min Status: Comments: Location: ; Weight 114 lb Status: Body Mass Index Calculated 20.19 kg/m2 Status: Body Surface Area Calculated 1.52 m2 Status: 09-Jul-2016 15:54 BP Systolic 98 mm[Hg] Status: [...] low threshold) Range: >60 EST GFR, NON-AFR SWEDISH 32 ml/min (Below low threshold) Range: >60 [...] 524 pg/mL Range: 211-911 04-Jul-2016 12:21 Haptoglobin [id number] Comments: ORDER IN BOOK UNDER Test performed at: [DA] [facility], [address] [place] [address] , [place], [address], , Package Sorter: KEILA Carranza MD HAPTOGLOBIN 215 mg/dL (Above high threshold) Range: 34-200 05-Jul-2016 09:28 VIVIAN PE and FLC Serum [id number] Comments: ORDER IN BOOK UNDER Test performed at: [DA] [facility], [address] [place] [address] , [place], [address], , Package Sorter: KEILA Carranza MD IMMUNOGLOBULIN G, QN, SERUM 548 mg/dL (Below low threshold) Range: 700- 1600 IMMUNOGLOBULIN A, QN, SERUM 25 mg/dL (Below low threshold) Range: 64-422 IMMUNOGLOBULIN M, QN, SERUM <5 mg/dL (Below low threshold) Range: 26-217 Comments: Verified by repeat analysis----- PROTEIN, TOTAL, SERUM 5.7 g/dL (Below low threshold) Range: 6.0-8.5 ALBUMIN 3.0 g/dL Range: 2.9-4.4 WZBYM-2-UXHXESTU 0.4 g/dL Range: 0.0-0.4 KOKQM-1-WQANVPPD 0.9 g/dL Range: 0.4-1.0 BETA GLOBULIN 1.0 g/dL Range: 0.7-1.3 GAMMA GLOBULIN 0.5 g/dL Range: 0.4-1.8 M-SPIKE Not Observed g/dL Range: Not Observed GLOBULIN, TOTAL 2.7 g/dL Range: 2.2-3.9 A/G RATIO 1.2 Range: 0.7-1.7 IMMUNOFIXATION RESULT, SERUM Comment Comments: An apparent normal immunofixation pattern.----- PLEASE NOTE: Comment Comments: Protein electrophoresis scan will follow via computer,mail, or layout artist delivery.----- FREE KAPPA LT CHAINS,S 15.27 mg/L Range: 3.30-19.40 FREE LAMBDA LT CHAINS,S 12.11 mg/L Range: 5.71-26.30 KAPPA/LAMBDA RATIO,S 1.26 Range: 0.26-1.65 14-Jul-2016 10:23 PHOSPHORUS 1145 Comments: Items were attached to this order: PHOS PHOSPHORUS 3.7 mg/dL Range: 2.6-4.7 Plan of Care Name Dates Details Planned Observations Planned Goals not documented Planned Encounters Appointment; Provider: Chapito Muro On 25-Aug-2016 15:30 Appointment; Provider: Stefan Streeter M.D. On 25-Aug-2016 13:15 Appointment; Provider: Krunal Lennon M.D. On 18-Aug-2016 14:30 Appointment; Provider: Krunal Lennon M.D. On 13-Aug-2016 13:15 Appointment; Provider: Bruce Saunders M.D. On 22-Jul-2016 11:15 Appointment; Provider: Ry Maurer M.D. On 18-Jul-2016 13:15 Instructions Name Dates Details Instructions not documented [...] not documented On 05-Nov-2015 14:30 Appointment; Stefan tSreeter M.D. Encounter Diagnosis: Problem not documented On [...]
--- OUTSIDE RECORDS SUMMARY | 2017-02-26 16:17 | XMS REPORT | Summary of Care ---
Author Author Chapito Muro Organization Unknown Address [address] [place] [id number] Phone Unavailable Care Team Providers Care Internet Sales Representative Name Role Phone Cece Streeter M.D. Unavailable [...] Diff 7150 Ordered: 24-Jun-2016 Cortisol - AM [id number] Ordered: 09-Jul-2016 Immunization Name Dates Details Influenza Lot #: [id number] on: 02-Aug-2010 Influenza Lot #: [id number] on: 24-Aug-2012 Pneumo (Pneumovax) Lot #: [id number] on: 24-Aug-2012 Fluzone High-Dose 0.5 ML Intramuscular Suspension Prefilled Syringe Lot #: [id number] on: 25-Jul-2015 Tdap (Adacel) Lot #: [id number] on: 05-Nov-2015 Family History Name Dates Details [...] low threshold) Range: >60 EST GFR, NON-AFR KENYAN 32 ml/min (Below low threshold) Range: >60 [...] 524 pg/mL Range: 211-911 04-Jul-2016 12:21 Haptoglobin [id number] Comments: ORDER IN BOOK UNDER Testing performed at: [DA] [facility], [address] [place] [address] , [place], [address], , Metal Sander: KEILA Carranza MD HAPTOGLOBIN 215 mg/dL (Above high threshold) Range: 34-200 05-Jul-2016 09:28 VIVIAN PE and FLC Serum [id number] Comments: ORDER IN BOOK UNDER Testing performed at: [DA] [facility], [address] [place] [address] , [place], [address], , Metal Sander: KEILA Carranza MD IMMUNOGLOBULIN G, QN, SERUM 548 mg/dL (Below low threshold) Range: 700- 1600 IMMUNOGLOBULIN A, QN, SERUM 25 mg/dL (Below low threshold) Range: 64-422 IMMUNOGLOBULIN M, QN, SERUM <5 mg/dL (Below low threshold) Range: 26-217 Comments: Verified by repeat analysis----- PROTEIN, TOTAL, SERUM 5.7 g/dL (Below low threshold) Range: 6.0-8.5 ALBUMIN 3.0 g/dL Range: 2.9-4.4 KIKYE-7-ZRPHGRGL 0.4 g/dL Range: 0.0-0.4 DVEIL-0-AHDQLMDF 0.9 g/dL Range: 0.4-1.0 BETA GLOBULIN 1.0 g/dL Range: 0.7-1.3 GAMMA GLOBULIN 0.5 g/dL Range: 0.4-1.8 M-SPIKE Not Observed g/dL Range: Not Observed GLOBULIN, TOTAL 2.7 g/dL Range: 2.2-3.9 A/G RATIO 1.2 Range: 0.7-1.7 IMMUNOFIXATION RESULT, SERUM Comment Comments: An apparent normal immunofixation pattern.----- PLEASE NOTE: Comment Comments: Protein electrophoresis scan will follow via computer,mail, or leaf sticker delivery.----- FREE KAPPA LT CHAINS,S 15.27 mg/L [...] Provider: Krunal Lennon M.D. On 14-Jul-2016 15:15 Interventions Provided Medication Changes* Fluticasone Propionate 50 MCG/ACT Nasal Suspension - Start Labs/Procedures/Imaging* Cortisol - AM [id number]; To be Done: 09 Jul 2016 Instructions Name Dates Details Instructions not [...]
--- OUTSIDE RECORDS SUMMARY | 2017-02-26 16:17 | XMS REPORT | Summary of Care ---
Author Author Krunal Lennon M.D. Unknown Address [address] [place], [place] [id number] Phone Unavailable Care Team Providers Care Transmissions Systems Operator Name Role Phone Ferdinand Hammonds, Cece Unavailable Unavailable Reji Hammonds, Henry Tariq Unavailable Unavailable Doug Mcduffie M.D. Unavailable Unavailable Sony Muro PP Unavailable Unavailable Unavailable Functional Status Functional Status Health Issues* Name Dates Details Functional status health issues are not documented Status: Cognitive Status Health Issues* Name Dates Details Cognitive status health issues are not documented Status: Problems Name Dates Details Anxiety (300.00, F41.9) Status: Active Gout (274.9, M10.9) Status: Active Non-Hodgkin's lymphoma (202.80, C85.90) Status: Active Depression (311, F32.9) Status: Active Hypothyroidism (244.9, E03.9) Status: Active Congestive heart failure (428.0, I50.9) Status: Active History of Aortic Valve Replacement [...] Dyspnea on exertion (786.09, R06.09) Status: Active Cough (786.2, R05) Status: Active Medications Name Dates Details Multi-Day Vitamins Oral Tablet I po qd * Started 07-Jun-2009 ActiveROPINIRole HCl - 1 MG Oral Tablet TAKE ONE TABLET BY MOUTH EVERY NIGHT AT BEDTIME * Quantity: 90 Refills: 0 Raphael Mcduffie M.D.* Started 31-Aug-2009 ActiveOxygen 2 LPM 24 HOURS A DAY MAY TITRATE UP FOR DYSPNEA * Refills: 0 * Started ActiveCombivent Respimat 20-100 MCG/ACT Inhalation Aerosol Solution 1 puff BID and 1 puff 1 2 hours PRN NTE 6 puffs/day * Refills: 0 Raphael Mcduffie M.D.* Started 31-May-2013 ActiveAdult Aspirin EC Low Strength 81 MG Oral Tablet Delayed Release * Refills: 0 Henry Mendoza M.D.* Started 05-Jul-2013 ActiveMirtazapine 45 MG Oral Tablet TAKE 1/2 TABLET DAILY * Refills: 0 Stefan Streeter M.D.* Started 10-Oct-2013 ActiveCymbalta 30 MG Oral Capsule Delayed Release Particles TAKE 1 CAPSULE DAILY. * Quantity: 30 Refills: 6 Stefan Streeter M.D.* Started 10-Oct-2013 ActivePotassium Chloride Summer ER 10 MEQ Oral Tablet Extended Release take 1 tab daily * Quantity: 120 Refills: 0 * Started 19-Jan-2014 ActiveTessalon Perles 100 MG Oral Capsule TAKE 1 CAPSULE 3 TIMES DAILY NEEDED. * Refills: 0 * Started 15-Aug-2014 ActiveVentolin HFA 108 (90 Base) MCG/ACT Inhalation Aerosol Solution 2 puffs every 6 hours as needed * Refills: 0 * Started 15-Aug-2014 ActiveProtonix 40 MG Oral Tablet Delayed Release take 1 tab daily * Refills: 0 * Started 15-Aug-2014 ActiveLORazepam 0.5 MG Oral Tablet take 1 tab twice daily as needed * Refills: 0 * Started 15-Aug-2014 ActiveAcyclovir [...] TABLET EVERY 6 HOURS NEEDED FOR PAIN. * Quantity: 30 Refills: 0 Raphael Mcduffie M.D.* Started 07-Nov-2014 ActivePredniSONE 5 MG Oral Tablet TAKE 1 TABLET DAILY. * Quantity: 60 Refills: 0 Stefan Streeter M.D.* Started 04-Dec-2014 ActiveFolic Acid 1 MG Oral Tablet Take [...] Refills: 11 Stefan Streeter M.D.* Started 23-Nov-2012 Active Allergies and Adverse Reactions Name Dates [...] Valve Replacement Iron Panel with TIBC 1612 Ordered:16-Oct-2015 Immunization Name Dates Details Influenza Lot #: [id number] Administered on:02-Aug-2010 Influenza Lot #: [id number] Administered on:24-Aug-2012 Pneumo (Pneumovax) Lot #: [id number] Administered on:24-Aug-2012 Fluzone High-Dose 0.5 ML Intramuscular Suspension Prefilled Syringe Lot #: [id number] Administered on:25-Jul-2015 Family History natural son* Name Dates Details [...] smoker Vital Signs Date Test Result Details 16-Oct-2015 13:30 BP Systolic 145 mm[Hg] Status: BP Diastolic 88 mm[Hg] Status: Heart Rate 86 /min Status: Weight 131 lb Status: Body Mass Index Calculated 23.21 kg/m2 Status: Body Surface Area Calculated 1.62 m2 Status: Results Date Description Value Details 17-Sep-2015 12:29 Manual Differential 7400 Comments: ORDER IN BOOK UNDER AUGUST SEGS 48 % (Better) Range: 37-80 BANDS 0 % (Better) Range: 0-7 LYMPH 36 % (Better) Range: 13-50 MONO 10 % (Better) Range: 0-12 EOSIN 4 % (Better) Range: 0-7 BASO 1 % (Better) Range: 0-3 JA LYMPH 1 % (Above high threshold) Range: 0-0 META 0 % (Better) Range: 0-0 MYELO 0 % (Better) Range: 0-0 PRO 0 % (Better) Range: 0-0 BLAST 0 % (Better) Range: 0-0 NUC RBC 0 /100 WBC (Better) Range: 0-0 SMUDGE 0 /100 WBC (Better) PLATELET Adequate (Better) Range: Adequate ANISO Slight (Better) HYPOCHRO Slight (Better) POLYCHRO Slight (Better) TARGET Present (Better) OVAL Present (Better) 12:52 LDH 1140 Comments: ORDER IN BOOK UNDER AUGUST LDH 477 U/L (Above high threshold) Range: 81-234 13:02 Comprehensive Metabolic Panel 1212 Comments: ORDER IN BOOK UNDER AUGUST SODIUM 145 mmol/L (Above high threshold) Range: 133-144 Comments: All electrolytes verified by repeat analysis----- POTASSIUM 4.7 mmol/L (Better) Range: 3.5-5.1 CHLORIDE 102 mmol/L (Better) Range: 98-110 CARBON DIOXIDE 37.7 mmol/L (Above high threshold) Range: 23.0-33.0 ANION GAP 5 mmol/L (Below low threshold) Range: 6-16 BUN 37 mg/dL (Above high threshold) Range: 7-18 Comments: Variance from previous testing noted.----- CREATININE, SERUM 1.54 mg/dL (Above high threshold) Range: 0.55-1.02 Comments: Please note new reference ranges effective 2015.----- BUN:CREATININE RATIO 24 (Better) EST GFR, 39 ml/min (Below low threshold) Range: >60 EST GFR, NON-AFR ARMENIAN 32 ml/min (Below low threshold) Range: >60 Comments: EST GFR is reported in ml/min per 1.73 m2 of body surface area. For -British, please multiple result by 1.2.----- GLUCOSE 100 mg/dL (Better) Range: 70-100 ALK PHOSPHATASE 91 U/L (Better) Range: 46-116 TOTAL BILIRUBIN 0.30 mg/dL (Better) Range: 0.20-1.00 AST 37 U/L (Above high threshold) Range: 8-35 ALT 22 U/L (Better) Range: 14-59 Comments: Please note new reference ranges. Effective 01/04/2015.----- ALBUMIN 3.4 g/dL (Better) Range: 3.4-5.0 TOTAL PROTEIN 7.7 g/dL (Better) Range: 6.4-8.2 A/G RATIO 0.8 units (Below low threshold) Range: 1.0-1.8 CALCIUM 9.8 mg/dL (Better) Range: 8.5-10.1 13:04 CBC w/ Auto Diff 7150 Comments: ORDER IN BOOK UNDER AUGUSTManual differential indicated. WBC 12.9 K/uL (Above high threshold) Range: 4.5-11.0 RBC 3.59 mil/uL (Below low threshold) Range: 3.60-5.00 HGB 11.5 g/dL (Below low threshold) Range: 12.0-16.0 HCT 37.2 % (Better) Range: 36.0-48.0 MCV 103.7 fL (Above high threshold) Range: 80.0-99.0 MCH 31.9 pg (Better) Range: 27.3-32.5 MCHC 30.8 % (Below low threshold) Range: 32.0-36.0 RDW 15.5 % (Above high threshold) Range: 11.6-14.8 PLATELETS 180 K/uL (Better) Range: 150-400 MPV 10.3 fL (Better) Range: 6.0-11.0 08-Oct-2015 13:10 BASIC METABOLIC PROFILE 1210 Comments: ORDER FILED UNDER SEPTEMBER IN THE BOOK SODIUM 138 mmol/L (Better) Range: 133-144 POTASSIUM 4.0 mmol/L (Better) Range: 3.5-5.1 CHLORIDE 98 mmol/L (Better) Range: 98-110 CARBON DIOXIDE 36.4 mmol/L (Above high threshold) Range: 23.0-33.0 ANION GAP 4 mmol/L (Below low threshold) Range: 6-16 BUN 29 mg/dL (Above high threshold) Range: 7-18 CREATININE, SERUM 1.32 mg/dL (Above high threshold) Range: 0.55-1.02 Comments: Please note new reference ranges effective 2015.----- EST GFR, 46 ml/min (Below low threshold) Range: >60 EST GFR, NON-AFR ARMENIAN 38 ml/min (Below low threshold) Range: >60 Comments: EST GFR is reported in ml/min per 1.73 m2 of body surface area. For -British, please multiple result by 1.2.----- BUN:CREATININE RATIO 22 (Better) GLUCOSE 100 mg/dL (Better) Range: 70-100 CALCIUM 9.3 mg/dL (Better) Range: 8.5-10.1 16-Oct-2015 12:04 HEMOGRAM 7305 WBC 9.0 K/uL [...] threshold) Range: >60 EST GFR, NON-AFR ARMENIAN 31 ml/min (Below low threshold) Range: >60 Comments: EST GFR is reported in ml/min per 1.73 m2 of body surface area. For -British, please multiple result by 1.2.----- BUN:CREATININE RATIO [...] 91 pg/mL (Above high threshold) Range: 14-72 Plan of Care Planned Observations* Name Dates Details Planned Goals not documented Goal Planned Encounters* Appointment; Provider: Krunal Lennon On 25-Dec-2015 14:00 * Appointment; Provider: Stefan Streeter On 01-Nov-2015 14:00 * Appointment; Provider: Benigno Holt On 07-Jun-2012 14:00 * Appointment; Provider: Bruce Saunders On 11:45 * Appointment; Provider: Raphael Mcduffie On 11-Dec-2010 09:15 * Appointment; Provider: Mikal Felipe On 21-Mar-2008 13:15 Instructions * Instructions not documented Encounters Appointment; Krunal Lennno Encounter Diagnosis: Problem not documented On 16-Oct-2015 [...] Diagnosis: Problem not documented On 15-Nov-2013 15:00 Appointment; Raphael Mcduffie Encounter Diagnosis: Problem not documented On 31-Oct-2013 10:45
--- OUTSIDE RECORDS SUMMARY | 2017-02-26 16:18 | XMS REPORT | Summary of Care ---
Author Author Chapito Muro Organization Unknown Address [address] [id number] Phone Unavailable Care Team Providers Care Server Cashier Name Role Phone Ferdinand Hammonds, Cece Unavailable [...] FOR NAUSEA * Quantity: 30 Refills: 0 Austynde Chapito * Start 25-Jun-2016 Active Propranolol HCl [...] apart. * Quantity: 30 Refills: 0 Krunal Lennno M.D. * Start 26-Aug-2016 Active Atorvastatin Calcium [...] Immunization Name Dates Details Influenza Lot #: [id number] on: 02-Aug-2010 Influenza Lot #: [id number] on: 24-Aug-2012 Pneumo (Pneumovax) Lot #: [id number] on: 24-Aug-2012 Fluzone High-Dose 0.5 ML Intramuscular Suspension Prefilled Syringe Lot #: [id number] on: 25-Jul-2015 Tdap (Adacel) Lot #: [id number] on: 05-Nov-2015 Fluzone High-Dose 0.5 ML Intramuscular Suspension Prefilled Syringe Lot #: [id number] on: 02-Sep-2016 Family History Name Dates Details [...] Body Surface Area Calculated 1.49 m2 Status: 16-Sep-2016 13:38 BP Systolic 114 mm[Hg] Status: [...] m2 Status: Results Date Description Value Details 02-Sep-2016 09:22 HEMOGRAM 7305 WBC 10.8 K/uL [...] low threshold) Range: >60 EST GFR, NON-AFR COLOMBIAN 29 ml/min (Below low threshold) Range: >60 [...] (13.3) (09/08/2016 11:23 AM) to (11.3) by [facility].---- - RBC 3.58 mil/uL (Below low threshold) [...] low threshold) Range: >60 EST GFR, NON-AFR COLOMBIAN 32 ml/min (Below low threshold) Range: >60 [...] Present HJ BODIES Present 09-Sep-2016 12:58 Haptoglobin [id number] Comments: SIGNED ORDER FILED IN OFFICETesting performed at: [DA] [facility], [address] [place] [address], [place], [address], , General Internal Medicine Doctor: KEILA Carranza MD HAPTOGLOBIN 189 mg/dL Range: 34-200 15:56 VIVIAN PE and FLC Serum [id number] Comments: SIGNED ORDER FILED IN OFFICETesting performed at: [DA] [facility], [address] [place] [address], [place], [address], , General Internal Medicine Doctor: KEILA Carranza MD IMMUNOGLOBULIN G, QN, SERUM 285 mg/dL (Below low threshold) Range: 700- 1600 IMMUNOGLOBULIN A, QN, SERUM 26 mg/dL (Below low threshold) Range: 64-422 IMMUNOGLOBULIN M, QN, SERUM <5 mg/dL (Below low threshold) Range: 26-217 Comments: Verified by repeat analysis----- PROTEIN, TOTAL, SERUM 5.9 g/dL (Below low threshold) Range: 6.0-8.5 ALBUMIN 3.4 g/dL Range: 2.9-4.4 WJZMS-5-FCJIXTOL 0.4 g/dL Range: 0.0-0.4 ZFGPG-2-DSSCKKNF 0.9 g/dL Range: 0.4-1.0 BETA GLOBULIN 0.9 g/dL Range: 0.7-1.3 GAMMA GLOBULIN 0.3 g/dL (Below low threshold) Range: 0.4-1.8 M-SPIKE Not Observed g/dL Range: Not Observed GLOBULIN, TOTAL 2.5 g/dL Range: 2.2-3.9 A/G RATIO 1.4 Range: 0.7-1.7 IMMUNOFIXATION RESULT, SERUM Comment Comments: An apparent normal immunofixation pattern.----- PLEASE NOTE: Comment Comments: Protein electrophoresis scan will follow via computer,mail, or wallet assembler delivery.----- FREE KAPPA LT CHAINS,S 12.85 mg/L Range: 3.30-19.40 FREE LAMBDA LT CHAINS,S 11.03 mg/L Range: 5.71-26.30 KAPPA/LAMBDA RATIO,S 1.17 Range: 0.26-1.65 23-Sep-2016 12:49 Urinalysis, Reflex to Microscopic or [...] /HPF Range: 0-10 25-Sep-2016 16:19 URINE CULTURE [id number] Comments: blur Group performed at: [facility], [address] [place] [address], [address], General Internal Medicine Doctor: Gigi Alberto D.O., MPHQuest Collection Date/Time: [id number] Results Received Date/Time: Reported Date/Time: FASTING:NOQuest performed at: [facility], [address] [place] [address], [address], General Internal Medicine Doctor: Gigi Alberto D.O., MPHQuest Collection Date/Time: [id number] Results Received Date/Time: Reported Date/Time: FASTING:NO CULTURE, URINE, ROUTINE SEE NOTE (Abnormal) Comments: CULTURE, URINE, ROUTINE MICRO NUMBER: [id number] TEST STATUS: FINAL SPECIMEN SOURCE : URINE [...] low threshold) Range: >60 EST GFR, NON-AFR COLOMBIAN 41 ml/min (Below low threshold) Range: >60 [...] 394 U/L (Above high threshold) Range: 81-234 Plan of Care Name Dates Details Planned Observations THYROID STIM. HORMONE 3602 On 01-Dec-2016 Intent CBC w/ Auto Diff 7150 On 01-Dec-2016 Intent Planned Goals not documented Planned Encounters Appointment; Provider: Stefan Streeter M.D. On 19-Mar-2017 14:00 Appointment; Provider: Chapito Muro On 02-Dec-2016 11:15 Appointment; Provider: Krunal Lennon M.D. On 04-Nov-2016 13:45 Appointment; Provider: Krunal Lennon M.D. On 03-Oct-2016 10:00 Instructions Name Dates Details Instructions not documented Encounters Appointment; Stefan Streeter M.D. Encounter Diagnosis: Problem [...]
--- OUTSIDE RECORDS SUMMARY | 2017-02-26 16:18 | XMS REPORT ---
Author Author GENERATED, SYSTEM Organization Unknown Address Unknown Phone Unavailable Care Team Providers Care Industry Consultant Name Role Phone MD CORTEZ, [facility] [phone] Reason For Visit Reason for Visit from 12/10/2016 10:39 AM:* Pt Stated Reason for Adm : IVIG infusion Chief Complaint CVID D83.8 Social History Functional Status Functional Status from 12/10/2016 10:39 AM:* LOC : Alert * Oriented To : Person,Place,Time,Event Vital Signs Hospital Vital Signs from 12/10/2016 2:30 PM:* Height : 5/0 ft,in * Pulse : 60 * Respirations : 18 * BP : 126/67 Hospital Vital Signs from 12/10/2016 2:00 PM:* Height : 5/0 ft,in * Pulse : 60 * Respirations : 18 * BP : 120/67 Hospital Vital Signs from 12/10/2016 1:45 PM:* Height : 5/0 ft,in * Pulse : 59 * Respirations : 18 * BP : 121/68 Hospital Vital Signs from 12/10/2016 1:30 PM:* Height : 5/0 ft,in * Pulse : 59 * Respirations : 18 * BP : 132/76 Hospital Vital Signs from 12/10/2016 1:15 PM:* Height : 5/0 ft,in * Pulse : 60 * Respirations : 18 * BP : 131/75 Hospital Vital Signs from 12/10/2016 1:00 PM:* Height : 5/0 ft,in * Pulse : 59 * Respirations : 18 * BP : 131/72 Hospital Vital Signs from 12/10/2016 12:45 PM:* Height : 5/0 ft,in * Pulse : 59 * Respirations : 18 * BP : 126/72 Hospital Vital Signs from 12/10/2016 12:30 PM:* Height : 5/0 ft,in * Pulse : 59 * Respirations : 18 * BP : 125/75 Hospital Vital Signs from 12/10/2016 12:15 PM:* Height : 5/0 ft,in * Pulse : 59 * Respirations : 18 * BP : 126/71 Hospital Vital Signs from 12/10/2016 12:00 PM:* Height : 5/0 ft,in * Pulse : 58 * Respirations : 18 * BP : 115/69 Hospital Vital Signs from 12/10/2016 11:45 AM:* Height : 5/0 ft,in * Pulse : 60 * Respirations : 18 * BP : 122/60 Hospital Vital Signs from 12/10/2016 11:30 AM:* Height : 5/0 ft,in * Pulse : 58 * Respirations : 18 * BP : 135/82 Hospital Vital Signs from 12/10/2016 11:15 AM:* Height : 5/0 ft,in * Pulse : 59 * Respirations : 18 * BP : 113/62 Hospital Vital Signs from 12/10/2016 11:00 AM:* Height : 5/0 ft,in * Pulse : 60 * Respirations : 18 * BP : 109/73 Hospital Vital Signs from 12/10/2016 10:39 AM:* Weight : 104/ lbs,oz * Height : 5/0 ft,in * Height : 5/0 ft,in * Temperature : 97.2 F * Pulse : 59 * Respirations : 18 * BP : 112/61 Results Chemistry from 12/10/2016 10:55 AMSODIUM 143 MMOL/L (136-145 MMOL/L) POTASSIUM 4.1 MMOL/L (3.5-5.1 MMOL/L) CHLORIDE 105 MMOL/L (98-107 MMOL/L) TCO2 34.7 MMOL/L H (21.0-32.0 MMOL/L) *ANION GAP 3.3 MMOL/L L (8.0-16.0 MMOL/L) BUN 36 MG/DL H (7-18 MG/DL) CREATININE 1.43 MG/DL H (0.55-1.02 MG/DL) *BUN/CREATININE RATIO 25.2 H (9.1-17.0 ) GLUCOSE 126 MG/DL H (65-99 MG/DL) *GFR EST NON AFR DANISH 33 ML/MIN *GFR EST AFR AMER 38 ML/MIN CALCIUM 9.2 MG/DL (8.5-10.1 MG/DL) BILIRUBIN TOTAL 0.60 MG/DL (0.20-1.00 MG/DL) TOTAL PROTEIN 6.8 GM/DL (6.4-8.2 GM/DL) ALBUMIN 3.0 GM/DL L (3.4-5.0 GM/DL) *GLOBULIN 3.8 GM/DL H (2.3-3.5 GM/DL) *A/G RATIO 0.8 MG/DL L (1.5-2.2 MG/DL) ALK PHOS 112 U/L (46-116 U/L) ALT (SGPT) 22 U/L (16-63 U/L) AST (SGOT) 39 U/L H (15-37 U/L) Hematology from 12/10/2016 10:55 AMWBC 7.6 X10e3/UL (3.6-11.2 X10e3/UL) RBC 2.79 X10e6/UL L (3.63-4.92 X10e6/UL) HEMOGLOBIN 9.5 G/DL L (11.0-14.3 G/DL) HEMATOCRIT 29.7 % L (31.2-41.9 %) *MCV 106.5 FL H (79.0-98.0 FL) *MCH 34.0 PG H (27.0-33.0 PG) *MCHC 31.9 G/DL L (32.0-36.0 G/DL) *RDW 17.5 % H (12.3-17.0 %) *RDWSD 65.2 H (37.1-47.8 ) PLATELET 187 X10e3/UL (159-386 X10e3/UL) *MPV 9.9 FL (7.4-10.4 FL) *MANUAL DIFF PERFORMED SEGS 55.0 % *BANDS 4.0 % *LYMPHOCYTES 27.0 % *MONOCYTES 6.0 % *EOSINOPHILS 6.0 % *BASOPHILS 2.0 % *ABSOLUTE NEUTROPHILS 4.48 X10e3/UL (1.80-7.80 X10e3/UL) *ABSOLUTE LYMPHOCYTES 2.05 X10e3/UL (1.00-3.00 X10e3/UL) *ABSOLUTE MONOCYTES 0.46 X10e3/UL (0.30-1.00 X10e3/UL) *ABSOLUTE EOSINOPHILS 0.46 X10e3/UL (0.00-0.50 X10e3/UL) *ABSOLUTE BASOPHILS 0.15 X10e3/UL (0.00-0.20 X10e3/UL) *NUCLEATED RBC MANUAL 1.0 /100 WBC (0.0-1.0 /100 WBC) *POLYCHROMASIA 1+ *MACROCYTIC 1+ OVALOCYTES 1+ *TOXIC GRANULATION 1+ Reference Lab from 12/10/2016 10:55 AMIMMUNOGLOBULIN G 790 mg/dL (700-1600 mg/dL) Problems Encounter Diagnosis No relevant problems exist. [...] 8 :57 AM * Completed Procedure Code: 0825488 Procedure Name: not valued, on 08/27/2016 12 :00 AM * Completed Procedure Code: 56455 Procedure Name: not valued, on 08/27/2016 12: 00 AM * Completed Procedure Code: [id number] Procedure Name: not valued, on 07/30/2016 9: 59 AM * Completed Procedure Code: 0S569OQ Procedure Name: not valued, on 07/30/2016 9: 59 AM * Completed Esophagogastroduodenoscopy with control of bleeding, by MD ROOSEVELT DIAZ, on 07/30/2016 9:21 AM * Completed Procedure Code: 4998132 Procedure Name: not valued, on 07/21/2016 12 :00 AM * Completed Procedure Code: 80824 Procedure Name: not valued, on 07/21/2016 12: 00 AM * Completed Procedure Code: 20382 Procedure Name: not valued, on 07/21/2016 12: 00 AM * Completed Procedure Code: 62189N8 Procedure Name: not valued, on 06/21/2016 12 [...]
--- OUTSIDE RECORDS SUMMARY | 2017-02-26 16:18 | XMS REPORT | Summary of Care ---
Author Author Mikie ELLER,Cristina Unknown Address [address] [place], [place] [id number] Phone Unavailable Care Team Providers Care Lead Programmer Name Role Phone Ferdinand Hammonds, Cece Unavailable Unavailable Chapito Muro Unavailable Unavailable Reji Hammonds, Henry Tariq Unavailable Unavailable Saji Hammonds, Krunal Unavailable Unavailable [...] Shortness of breath (786.05, R06.02) Status: Active Anemia (285.9, D64.9) Status: Active [...] 3 Chapito Muro * Start 19-Jan-2014 Active Ventolin HFA 108 [...] 1 Chapito Muro * Start 15-Aug-2014 Active Allopurinol 300 MG Oral Tablet TAKE 1 TABLET DAILY. * Quantity: 30 Refills: 3 Chapito Muro * Start 15-Aug-2014 Active MiraLax [...] 1 Chapito Muro * Start 09-Jul-2016 Active Injectafer 750 MG/15ML Intravenous Solution Give 750 mg IV, two doses, one week apart. * Quantity: 30 Refills: 0 Krunal Lennon M.D. * Start 26-Aug-2016 Active Atorvastatin Calcium 20 MG Oral Tablet * Refills: 0 Stefan Streeter M.D. * Start 16-Sep-2016 Active Levothyroxine Sodium 25 MCG Oral Tablet [...] Immunization Name Dates Details Influenza Lot #: [id number] on: 02-Aug-2010 Influenza Lot #: [id number] on: 24-Aug-2012 Pneumo (Pneumovax) Lot #: [id number] on: 24-Aug-2012 Fluzone High-Dose 0.5 ML Intramuscular Suspension Prefilled Syringe Lot #: [id number] on: 25-Jul-2015 Tdap (Adacel) Lot #: [id number] on: 05-Nov-2015 Fluzone High-Dose 0.5 ML Intramuscular Suspension Prefilled Syringe Lot #: [id number] on: 02-Sep-2016 Family History Name Dates Details [...] smoker Vital Signs Date Test Result Details 30-Dec-2016 13:24 BP Systolic 120 mm[Hg] Status: Comments: Location: ; Position: BP Diastolic 78 mm[Hg] Status: Comments: Location: ; Position: Heart Rate 66 /min Status: Comments: Location: ; Weight 100 lb Status: Body Mass Index Calculated 17.71 kg/m2 Status: Body Surface Area Calculated 1.44 m2 Status: 25-Dec-2016 10:38 BP Systolic 114 mm[Hg] Status: Comments: Location: LUE; Position: Sitting BP Diastolic 68 mm[Hg] Status: Comments: Location: LUE; Position: Sitting Temperature 96.9 f Status: Comments: Method: Heart Rate 70 /min Status: Comments: Location: ; Physical Findings 16 Status: Comments: Respiration Height 63 in Status: Weight 99.5 lb Status: Physical Findings 96 Status: Comments: O2 Saturation FiO2 flow rate 3 L/min Status: Body Mass Index Calculated 17.63 kg/m2 Status: Body Surface Area Calculated 1.44 m2 Status: 02-Dec-2016 11:14 BP Systolic 118 mm[Hg] Status: Comments: Location: ; Position: BP Diastolic 74 mm[Hg] Status: Comments: Location: ; Position: Heart Rate 70 /min Status: Comments: Location: ; Height 63 in Status: Weight 105.375 lb Status: Physical Findings 99 Status: Comments: O2 Saturation Body Mass Index Calculated 18.67 kg/m2 Status: Body Surface Area Calculated 1.47 m2 Status: Results Date Description Value Details 01-Dec-2016 13:46 CBC w/ Auto Diff 7150 [...] low threshold) Range: >60 EST GFR, NON-AFR DJIBOUTIAN 35 ml/min (Below low threshold) Range: >60 [...] Range: 0-2 EPITH 0-2 /HPF Range: 0-10 7-Nov-2016 13:21 Haptoglobin [id number] Comments: ORDER IN BOOK UNDER NOVEMBER 2016Testing performed at: [DA] [facility], [address] [place] [address] [address], [place], [address], , Instrumentation Specialist: KEILA Carranza MD HAPTOGLOBIN 115 mg/dL Range: 34-200 17:01 VIVIAN PE and FLC Serum [id number] Comments: ORDER IN BOOK UNDER NOVEMBER 2016Testing performed at: [DA] [facility], [address] [place] [address] [address], [place], [address], , Instrumentation Specialist: KEILA Carranza MD IMMUNOGLOBULIN G, QN, SERUM 949 mg/dL Range: 700-1600 IMMUNOGLOBULIN A, QN, SERUM 64 mg/dL Range: 64-422 IMMUNOGLOBULIN M, QN, SERUM 33 mg/dL Range: 26-217 PROTEIN, TOTAL, SERUM 5.9 g/dL (Below low threshold) Range: 6.0-8.5 ALBUMIN 2.9 g/dL Range: 2.9-4.4 SCGXU-7-QPYRNFPL 0.4 g/dL Range: 0.0-0.4 ZYSWS-1-WBKRBELZ 0.8 g/dL Range: 0.4-1.0 BETA GLOBULIN 0.9 g/dL Range: 0.7-1.3 GAMMA GLOBULIN 0.9 g/dL Range: 0.4-1.8 M-SPIKE Not Observed g/dL Range: Not Observed GLOBULIN, TOTAL 3.0 g/dL Range: 2.2-3.9 A/G RATIO 1.0 Range: 0.7-1.7 IMMUNOFIXATION RESULT, SERUM Comment Comments: An apparent normal immunofixation pattern.----- PLEASE NOTE: Comment Comments: Protein electrophoresis scan will follow via computer,mail, or dough mixing machine operator delivery.----- FREE KAPPA LT CHAINS,S 17.05 mg/L Range: 3.30-19.40 FREE LAMBDA LT CHAINS,S 23.20 mg/L Range: 5.71-26.30 KAPPA/LAMBDA RATIO,S 0.73 Range: 0.26-1.65 04-Dec-2016 08:31 URINE CULTURE [id number] Comments: Waffle performed at: [facility], [address] [place] [address], [address], Instrumentation Specialist: Gigi Alberto D.O., MPHQuest Collection Date/Time: [id number] Results Received Date/Time: [id number] Reported Date/Time: FASTING:NOQuest performed at: [facility], [address] [place], [address], Instrumentation Specialist: Ggii Alberto D.O., MPHQuest Collection Date/Time: [id number] Results Received Date/Time: [id number] Reported Date/Time: [id number] FASTING:NO CULTURE, URINE, ROUTINE SEE NOTE (Abnormal) Comments: CULTURE, URINE, ROUTINE MICRO NUMBER: [id number] TEST STATUS: FINAL SPECIMEN SOURCE : URINE SPECIMEN QUALITY: ADEQUATE RESULT: 10,000-50,000 CFU/mL of Citrobacter youngae COMMENT: Additional organism(s) less than 10, 000 CFU/mL isolated. These organisms, commonly found on external and internal genitalia, are considered colonizers. No further testing performed. C.youngae INT LUIS ALFREDO AMOX/CLAVULANATE R 8 CEFAZOLIN R >= 64 1 CEFEPIME S <=1 CEFTRIAXONE S <=1 CIPROFLOXACIN S <=0.25 ERTAPENEM S <=0.5 GENTAMICIN S <=1 IMIPENEM S <=0.25 LEVOFLOXACIN S <=0.12 NITROFURANTOIN S <=16 PIP/ TAZOBACTAM S <=4 TOBRAMYCIN S <=1 TRIMETHOPRIM/ SULFA S <=20S=Susceptible I=Intermediate R=Resistant *=Not TestedNR= Not Reported NN=See Therapy CommentsTHERAPY COMMENTS Note 1: [...] to to confirm susceptibility to parenteral cefazolin.[KS]----- 25-Dec-2016 11:17 Urinalysis, Reflex to Microscopic or Culture PRN 8005 pH 6.5 Range: 5.0-7.5 SP GRAVITY 1.010 Range: 1.010-1.030 APPEARANCE CLEAR Range: Clear COLOR YELLOW Range: Straw-Yellow PROTEIN 100 mg/dL (Abnormal) Range: Negative-Trace GLUCOSE NEGATIVE mg/dL Range: Negative KETONE NEGATIVE mg/dL Range: Negative BILIRUB NEGATIVE Range: Negative BLOOD SMALL (Abnormal) Range: Negative UROBIL 0.2 EU/dL Range: 0.2-1.0 NITRITE NEGATIVE Range: Negative LEUK NEGATIVE Range: Negative 11:17 Urine Microscopic UMIC RBC 0-2 /HPF Range: 0-2 HYAL CAST 0-2 /LPF Range: 0-2 EPITH 0-2 /HPF Range: 0-10 11:29 BASIC METABOLIC PROFILE 1210 Comments: Items were attached to this order: Extra Tube SODIUM 144 mmol/L Range: 133-144 POTASSIUM 4.6 mmol/L Range: 3.5-5.1 CHLORIDE 105 mmol/L Range: 98-110 CARBON DIOXIDE 34.4 mmol/L (Above high threshold) Range: 23.0-33.0 ANION GAP 5 mmol/L (Below low threshold) Range: 6-16 BUN 33 mg/dL (Above high threshold) Range: 7-18 CREATININE, SERUM 1.32 mg/dL (Above high threshold) Range: 0.55-1.02 EST GFR, 46 ml/min (Below low threshold) Range: >60 EST GFR, NON-AFR DJIBOUTIAN 38 ml/min (Below low threshold) Range: >60 Comments: EST GFR is reported in ml/min per 1.73 m2 of body surface area. ----- BUN:CREATININE RATIO 25 GLUCOSE 107 mg/dL (Above high threshold) Range: 70-100 CALCIUM 9.2 mg/dL Range: 8.5-10.1 11:33 CBC w/ Auto Diff 7150 Comments: Items were attached to this order: Extra Tube WBC 10.8 K/uL Range: 4.5-11.0 RBC 2.75 mil/uL (Below low threshold) Range: 3.60-5.00 HGB 9.5 g/dL (Below low threshold) Range: 12.0-16.0 HCT 31.1 % (Below low threshold) Range: 36.0-48.0 MCV 113.1 fL (Above high threshold) Range: 80.0-99.0 MCH 34.6 pg (Above high threshold) Range: 27.3-32.5 MCHC 30.6 % (Below low threshold) Range: 32.0-36.0 RDW 17.0 % (Above high threshold) Range: 11.6-14.8 PLATELETS 219 K/uL Range: 150-400 MPV 8.8 fL Range: 6.0-11.0 %NEUTRO 64.4 % Range: 37.0-80.0 %LYMPHS 19.5 % Range: 13.0-50.0 %MONO 5.1 % Range: 0.0-12.0 %EOS 7.7 % (Above high threshold) Range: 0.0-7.0 %BASO 0.7 % Range: 0.0-2.5 %HALIMA 2.6 % Range: 0.0-5.0 NEUTRO 6.9 K/uL Range: 2.0-6.9 LYMPHS 2.1 K/uL Range: 0.6-3.4 MONOS 0.6 K/uL Range: 0.0-0.9 EOS 0.8 K/uL (Above high threshold) Range: 0.0-0.7 BASO 0.1 K/uL Range: 0.0-0.2 30-Dec-2016 12:03 Iron Panel with TIBC 1612 IRON 113 ug/dL Range: 50-170 TOTAL IRON BIND. CAPACITY 305 ug/dL Range: 250-450 % IRON SATURATION 37 % Range: 20-55 12:03 RENAL PROFILE 1240 SODIUM 142 mmol/L Range: 133-144 POTASSIUM 4.4 mmol/L Range: 3.5-5.1 CHLORIDE 103 mmol/L Range: 98-110 CARBON DIOXIDE 33.4 mmol/L (Above high threshold) Range: 23.0-33.0 ANION GAP 6 mmol/L Range: 6-16 BUN 32 mg/dL (Above high threshold) Range: 7-18 CREATININE, SERUM 1.74 mg/dL (Above high threshold) Range: 0.55-1.02 EST GFR, 34 ml/min (Below low threshold) Range: >60 EST GFR, NON-AFR DJIBOUTIAN 28 ml/min (Below low threshold) Range: >60 Comments: EST GFR is reported in ml/min per 1.73 m2 of body surface area. ----- BUN:CREATININE RATIO 18 GLUCOSE 125 mg/dL (Above high threshold) Range: 70-100 ALBUMIN 3.3 g/dL (Below low threshold) Range: 3.4-5.0 PHOSPHORUS 3.9 mg/dL Range: 2.6-4.7 CALCIUM 9.0 mg/dL Range: 8.5-10.1 Plan of Care Name Dates Details Planned Observations Planned Goals not documented Planned Encounters Appointment; Provider: Stefan Streeter M.D. On 19-Mar-2017 14:00 Appointment; Provider: Chapito Muro On 11-Feb-2017 15:30 Appointment; Provider: Schedule Radiology On 03-Feb-2017 08:00 Appointment; Provider: Krunal Lennon M.D. On 28-Jan-2017 09:00 Instructions Name Dates Details Instructions not documented [...]
--- OUTSIDE RECORDS SUMMARY | 2017-02-26 16:19 | XMS REPORT | Continuity of Care Document ---
Author Author [facility] Organization [facility] Address Unknown Phone Unavailable Allergies Active Description Code Type Severity Reaction Onset Reported/Identified Relationship to Patient Clinical Status Yes Ceftin Drug Allergy N/A N/V, DIARRHEA 09/03/2009 Yes cefuroxime Drug Allergy Moderate Adverse Reaction 05/23/2012 Yes No Known Food Allergies Food Allergy N/A N/A 05/16/2013 Medications Problems Date Dx Coded Attending Type Code Diagnosis Diagnosed By 04/21/2013 Aristides Sung DO Final 331.9 CEREB DEGENERATION NOS 04/21/2013 Aristides Sung DO Final 403.90 HTN CKD NOS I-IV/NOS 04/21/2013 Aristides Sung DO Final 585.9 CHRONIC KIDNEY DIS NOS 04/21/2013 Aristides Sung DO Final 784.0 HEADACHE 05/08/2013 Kiara Workman MD Final 244.9 HYPOTHYROIDISM NOS 05/08/2013 Kiara Workman MD Final 272.4 HYPERLIPIDEMIA NEC NOS 05/08/2013 Kiara Workman MD Final 278.00 OBESITY NOS 05/08/2013 Kiara Workman MD Final 296.30 RECURRENT MDD-UNSPEC 05/08/2013 Kiara Workman MD Final 333.94 RESTLESS LEGS SYNDROME 05/08/2013 Kiara Workman MD Final 403.90 HTN CKD NOS I-IV/NOS 05/08/2013 Kiara Workman MD Final 428.0 CHF NOS 05/08/2013 Kiara Workman MD Final 428.32 CHRONIC DIASTOLIC HF 05/08/2013 Kiara Workman MD Final 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 05/08/2013 Kiara Workman MD Final 530.81 ESOPHAGEAL REFLUX 05/08/2013 Kiara Workman MD Final 585.9 CHRONIC KIDNEY DIS NOS 05/08/2013 Kiara Workman MD Final 780.09 ALTER CONSCIOUSNESS NEC 05/08/2013 Kiara Workman MD Admitting 780.1 HALLUCINATIONS 05/08/2013 Ji ALVARADO, Kiara Mustafa Final V85.23 BMI 27.0-27.9 ADULT 05/16/2013 Byjuve ALVARADO, Arcadio Alaniz 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 05/16/2013 Byjuve ALVARADO, Arcadio Alaniz Final 272.4 HYPERLIPIDEMIA NEC NOS 05/16/2013 Byjuve ALVARADO, Arcadio Alaniz Final 285.9 ANEMIA NOS 05/16/2013 Stuart ALVARADO, Arcadio Alaniz Final 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 05/16/2013 Byjuve ALVARADO, Arcadio Alaniz Final 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 05/16/2013 Byjuve ALVARADO, Arcadio Alaniz Final 348.30 ENCEPHALOPATHY NOS 05/16/2013 Stuart ALVARADO, Arcadio Alaniz Final 403.90 HTN CKD NOS I-IV/NOS 05/16/2013 Byjuve ALVARADO, Arcadio Alaniz Final 428.0 CHF NOS 05/16/2013 Stuart ALVARADO, Arcadio Alaniz Final 428.30 DIASTOLIC HF NOS 05/16/2013 Stuart ALVARADO, Arcadio Alaniz Final 437.0 CEREBRAL ATHEROSCLEROSIS 05/16/2013 Stuart ALVARADO, Arcadio Alaniz Final 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 05/16/2013 Stuart ALVARADO, Arcadio Alaniz Final 530.81 ESOPHAGEAL REFLUX 05/16/2013 Stuart ALVARADO, Arcadio Alaniz Final 585.9 CHRONIC KIDNEY DIS NOS 05/16/2013 Stuart ALVARADO, Arcadio Alaniz Final 599.0 URINARY TRACT INF NOS 05/16/2013 Stuart ALVARADO, Arcadio Alaniz Admitting 780.97 ALTERED MENTAL STATUS 02/01/2016 ELISA DELEON 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 04/03/2016 ELISA DELEON 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 05/04/2016 ELISA DELEON 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 06/04/2016 ELISA DELEON 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 07/02/2016 EMILI TORO 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, unspecified, unspecified site 07/02/2016 EMILI TORO 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 07/02/2016 EMILI TORO D649 Anemia, unspecified 07/02/2016 EMILI TORO E039 Hypothyroidism, unspecified 07/02/2016 EMILI TORO E785 Hyperlipidemia, unspecified 07/02/2016 EMILI TORO F419 Anxiety disorder, unspecified 07/02/2016 EMILI TORO G629 Polyneuropathy, unspecified 07/02/2016 EMILI TORO 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 07/02/2016 EMILI TORO 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 07/02/2016 EMILI TORO I509 Heart failure, unspecified 07/02/2016 EMILI TORO J449 Chronic obstructive pulmonary disease, unspecified 07/02/2016 EMILI TORO K5190 Ulcerative colitis, unspecified, without complications 07/02/2016 EMILI TORO M810 Age-related osteoporosis w/o current pathological fracture 07/02/2016 EMILI TORO N183 Chronic kidney disease, stage 3 (moderate) 07/02/2016 EMILI TORO Z7902 manager terminal (current) use of antithrombotics/ antiplatelets 07/02/2016 EMILI TORO Z832 Family history of dis of the bld/bld-form org/ immun mechnsm 07/02/2016 EMILI TORO 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 07/02/2016 EMILI TORO Z955 Presence of coronary angioplasty implant and graft 07/22/2016 VICKIE LIZ D649 Anemia, unspecified 08/02/2016 ELISA DELEON D649 Anemia, unspecified 10/31/2016 ELISA DELEON 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 11/27/2016 UNASSIGNED DOCTOR, DOCTOR Dyson D649 Anemia, unspecified 11/27/2016 UNASSIGNED DOCTOR, DOCTOR Dyson I509 Heart failure, unspecified 11/27/2016 UNASSIGNED DOCTOR, DOCTOR Dyson R0602 Shortness of breath 11/27/2016 UNASSIGNED DOCTOR, DOCTOR Dyson R531 Weakness 12/01/2016 ELISA DELEON 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 12/30/2016 ELISA DELEON D839 Common variable immunodeficiency, unspecified 02/02/2017 ELISA DELEON D 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 02/23/2017 D E785 Hyperlipidemia, unspecified 02/23/2017 D F329 Major depressive disorder, single episode, unspecified 02/23/2017 D F419 Anxiety disorder, unspecified 02/23/2017 D 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 02/23/2017 D I509 Heart failure, unspecified 02/23/2017 D J449 Chronic obstructive pulmonary disease, unspecified 02/23/2017 D [id number] Pain in left elbow 02/23/2017 D A63184 Pain in left hip 02/23/2017 D [id number] Other specified injuries of head, initial encounter 02/23/2017 D [id number] Laceration without foreign body of left elbow, init encntr 02/23/2017 D [id number] Other fall on same level, initial encounter 02/23/2017 D Z7902 MCC (current) use of antithrombotics/antiplatelets 02/23/2017 D Z7982 manager terminal (current) use of aspirin 02/23/2017 D D94338 Other alf (current) drug therapy 02/23/2017 D Z950 Presence of cardiac pacemaker 02/23/2017 D Z954 Presence of other heart-valve replacement Procedures Code Description [place] [address] 12/28/2015 33632 12/28/2015 05919 12/28/2015 A9270 12/28/2015 J1569 12/28/2015 65262 01/10/2016 32144 01/10/2016 69759 01/10/2016 70407 01/10/2016 A9270 01/10/2016 J1569 01/10/2016 87297 01/24/2016 10465 01/24/2016 25141 01/24/2016 A9270 01/24/2016 J1569 01/24/2016 20259 03/19/2016 02472 03/19/2016 52577 03/19/2016 56815 03/19/2016 A9270 03/19/2016 J1569 03/19/2016 92628 04/03/2016 85206 04/03/2016 13694 04/03/2016 27108 04/03/2016 A9270 04/03/2016 J1569 04/03/2016 16977 05/08/2016 07487 05/08/2016 88085 05/08/2016 09493 05/08/2016 A9270 05/08/2016 J1569 05/08/2016 71927E2 06/21/2016 38860 07/14/2016 89240 07/14/2016 53651 07/14/2016 22315 07/14/2016 77143 07/14/2016 84527 07/14/2016 58855 07/14/2016 80757 07/14/2016 P9016 2016 28318 2016 87346 2016 J1940 2016 69177 10/01/2016 01879 10/01/2016 14101 10/01/2016 30212 10/01/2016 A9270 10/01/2016 J1569 10/01/2016 99600 10/14/2016 82616 10/14/2016 11600 10/14/2016 A9270 10/14/2016 J1569 10/14/2016 32065 10/16/2016 14633 10/28/2016 79458 10/28/2016 11128 10/28/2016 40255 10/28/2016 A9270 10/28/2016 J1569 10/28/2016 48254 11/11/2016 77259 11/11/2016 72515 11/11/2016 34614 11/11/2016 A9270 11/11/2016 J1569 11/11/2016 A0425 11/19/2016 A0429 11/19/2016 71613 11/25/2016 12657 11/25/2016 25857 11/25/2016 75205 11/25/2016 A9270 11/25/2016 J1569 11/25/2016 66642 12/10/2016 41616 12/10/2016 37924 12/10/2016 85538 12/10/2016 86195 12/10/2016 49489 12/10/2016 67418 12/10/2016 A9270 12/10/2016 J1569 12/10/2016 70388 12/26/2016 33426 12/26/2016 43124 12/26/2016 18870 12/26/2016 A9270 12/26/2016 J1569 12/26/2016 50910 01/09/2017 96810 01/09/2017 53849 01/09/2017 93077 01/09/2017 A9270 01/09/2017 J1569 01/09/2017 12029 02/14/2017 J0131 02/14/2017 68493 02/15/2017 50406 02/15/2017 39080 02/15/2017 91890 02/15/2017 86413 02/15/2017 A9270 02/15/2017 Results Test Result Range HEMOGLOBIN - 08/25/16 11:35 HEMOGLOBIN 5.9 11.0-14.3 TYPE AND SCREEN - 08/25/16 11:35 ANTIBODY SCREEN (Indirect Gabriel) NEG NRG *ABO GROUP B NRG RH TYPE POS NRG RED BLOOD CELLS - 08/25/16 11:35 RED BLOOD CELLS [id number] transfused compatible NRG CREATININE - 09/15/16 11:18 CREATININE 1.81 0.55-1.02 GFR ESTIMATION - 09/15/16 11:18 *GFR EST NON AFR NORWEGIAN 25 mL/min NRG *GRFA EST AFR AMER 29 mL/min NRG CREATININE - 10/01/16 11:20 CREATININE 1.18 0.55-1.02 GFR ESTIMATION - 10/01/16 11:20 *GFR EST NON AFR NORWEGIAN 42 mL/min NRG *GRFA EST AFR AMER 49 mL/min NRG CREATININE - 10/14/16 11:19 CREATININE 1.08 0.55-1.02 GFR ESTIMATION - 10/14/16 11:19 *GFR EST NON AFR NORWEGIAN 47 mL/min NRG *GRFA EST AFR AMER 54 mL/min NRG CREATININE - 10/28/16 11:25 CREATININE 1.17 0.55-1.02 GFR ESTIMATION - 10/28/16 11:25 *GFR EST NON AFR NORWEGIAN 42 mL/min NRG *GRFA EST AFR AMER 49 mL/min NRG CREATININE - 11/11/16 11:00 CREATININE 1.14 0.55-1.02 GFR ESTIMATION - 11/11/16 11:00 *GFR EST NON AFR NORWEGIAN 44 mL/min NRG *GRFA EST AFR AMER 51 mL/min NRG CBC WITH PLATELET NO DIFFERENTIAL - 11/20/16 05:38 MPV 11.3 fL 7.4-10.4 PLATELETS 127 10*3/uL 159-386 WBC 10.9 10*3/uL 3.6-11.2 RBC 2.85 3.63-4.92 HEMOGLOBIN 9.2 11.0-14.3 HEMATOCRIT 29.3 % 31.2-41.9 MCV 102.7 fL 79.0-98.0 MCH 32.4 pg 27.0-33.0 MCHC 31.6 32.0-36.0 RDW 18.1 % 12.3-17.0 RDWSD 64.3 37.1-47.8 COMPREHENSIVE METABOLIC PANEL - 11/20/16 05:38 BILIFUBIN TOTAL 0.50 0.20-1.00 TOTAL PROTEIN 6.1 6.4-8.2 ALBUMIN 2.8 3.4-5.0 *GLOBULIN 3.3 2.3-3.5 *A/G RATIO 0.8 1.5-2.2 ALK PHOS 112 U/L 46-116 ALT (SGPT) 37 U/L 16-63 AST (SGOT) 49 U/L 15-37 GFR ESTIMATION - 11/20/16 05:38 *GFR EST NON AFR NORWEGIAN 41 mL/min NRG *GRFA EST AFR AMER 48 mL/min NRG BNP - 11/20/16 05:38 B-TYPE NATRIURETIC PROTEIN 418 pg/mL 1- 100 CBC WITH PLATELET NO DIFFERENTIAL - 11/21/16 08:56 MPV 10.9 fL 7.4-10.4 PLATELETS 115 10*3/uL 159-386 WBC 10.6 10*3/uL 3.6-11.2 RBC 2.75 3.63-4.92 HEMOGLOBIN 9.0 11.0-14.3 HEMATOCRIT 28.6 % 31.2-41.9 MCV 103.9 fL 79.0-98.0 MCH 32.7 pg 27.0-33.0 MCHC 31.4 32.0-36.0 RDW 18.3 % 12.3-17.0 RDWSD 66.1 37.1-47.8 COMPREHENSIVE METABOLIC PANEL - 11/25/16 14:06 SODIUM 143 mmol/L 136-145 POTASSIUM 4.9 mmol/L 3.5-5.1 CHLORIDE 106 mmol/L 98-107 TCO2 34.2 mmol/L 21.0-32.0 *ANION GAP 2.8 mmol/L 8.0-16.0 BUN 28 7-18 CREATININE 1.19 0.55-1.02 *BUN/CREATININE RATIO 23.5 9.1-17.0 GLUCOSE 101 65-99 CALCIUM 8.7 8.5-10.1 BILIFUBIN TOTAL 0.50 0.20-1.00 TOTAL PROTEIN 6.9 6.4-8.2 ALBUMIN 2.9 3.4-5.0 *GLOBULIN 4.0 2.3-3.5 *A/G RATIO 0.7 1.5-2.2 ALK PHOS 125 U/L 46-116 ALT (SGPT) 45 U/L 16-63 AST (SGOT) 52 U/L 15-37 GFR ESTIMATION - 11/25/16 14:06 *GFR EST NON AFR NORWEGIAN 41 mL/min NRG *GRFA EST AFR AMER 48 mL/min NRG CBC WITH MANUAL DIFFERENTIAL - 12/10/16 10:55 *TOXIC GRANULATION 1+ NRG *POLYCHROMASIA 1+ NRG *MACROCYTIC 1+ NRG OVALOCYTES 1+ NRG SEGS 55.0 % NRG *BASOPHILS 2.0 % NRG *EOSINOPHILS 6.0 % NRG *BANDS 4.0 % NRG *MANUAL DIFF PERFORMED NRG *LYMPHOCYTES 27.0 % NRG *MONOCYTES 6.0 % NRG *ABSOLUTE BASOPHILS 0.15 10*3/uL 0.00- 0.20 *ABSOLUTE EOSINOPHILS 0.46 10*3/uL 0.00- 0.50 *ABSOLUTE LYMPHOCYTES 2.05 10*3/uL 1.00- 3.00 *ABSOLUTE MONOCYTES 0.46 10*3/uL 0.30- 1.00 *ABSOLUTE NEUTROPHILS 4.48 10*3/uL 1.80- 7.80 *NUCLEATED RBC MANUAL 1.0 0.0-1.0 COMPREHENSIVE METABOLIC PANEL - 12/10/16 10:55 SODIUM 143 mmol/L 136-145 POTASSIUM 4.1 mmol/L 3.5-5.1 CHLORIDE 105 mmol/L 98-107 TCO2 34.7 mmol/L 21.0-32.0 *ANION GAP 3.3 mmol/L 8.0-16.0 BUN 36 7-18 CREATININE 1.43 0.55-1.02 *BUN/CREATININE RATIO 25.2 9.1-17.0 GLUCOSE 126 65-99 CALCIUM 9.2 8.5-10.1 BILIFUBIN TOTAL 0.60 0.20-1.00 TOTAL PROTEIN 6.8 6.4-8.2 ALBUMIN 3.0 3.4-5.0 *GLOBULIN 3.8 2.3-3.5 *A/G RATIO 0.8 1.5-2.2 ALK PHOS 112 U/L 46-116 ALT (SGPT) 22 U/L 16-63 AST (SGOT) 39 U/L 15-37 GFR ESTIMATION - 12/10/16 10:55 *GFR EST NON AFR NORWEGIAN 33 mL/min NRG *GRFA EST AFR AMER 38 mL/min NRG IMMUNOGLOBULIN G - 12/10/16 10:55 IMMUNOGLOBULIN G 790 mg/dL 700-1600 CREATININE - 12/26/16 10:10 CREATININE 1.55 0.55-1.02 GFR ESTIMATION - 12/26/16 10:10 *GFR EST NON AFR NORWEGIAN 30 mL/min NRG *GRFA EST AFR AMER 35 mL/min NRG CREATININE - 01/09/17 10:30 CREATININE 1.27 0.55-1.02 GFR ESTIMATION - 01/09/17 10:30 *GFR EST NON AFR NORWEGIAN 38 mL/min NRG *GRFA EST AFR AMER 44 mL/min NRG Encounters ACCT No. Visit Date/Time Discharge Status Pt. Type Provider Facility Loc./Unit Complaint [id number] 05/16/2013 15:30:00 2012 14:44:00 DIS Outpatient Stuart ALVARADO, Arcadio Alaniz [facility] F4SE [id number] 05/08/2013 17:27:00 2012 14:48:00 DIS Inpatient Ji ALVARADO, Kiara Mustafa [facility] F7SE [id number] 04/21/2013 16:00:00 2012 17:23:00 DIS Emergency Aristides Sung DO [facility] TERM
--- OUTSIDE RECORDS SUMMARY | 2017-02-26 16:19 | XMS REPORT ---
Author Author GENERATED, SYSTEM Organization Unknown Address Unknown Phone Unavailable Care Team Providers Care Senior Drupal Developer Name Role Phone MD CORTEZ, [facility] [phone] Reason For Visit Reason for Visit from 12/26/2016 9:50 AM:* Pt Stated Reason for Adm : IVIG infusion Chief Complaint CVID D83.8 Social History Functional Status Functional Status from 01/09/2017 10:14 AM:* LOC : Alert * Oriented To : Person,Place,Time,Event Functional Status from 12/26/2016 9:50 AM:* LOC : Alert * Oriented To : Person,Place,Time,Event Vital Signs Hospital Vital Signs from 01/09/2017 1:30 PM:* Height : 5/0 ft,in * Pulse : 60 * Respirations : 18 * BP : 119/67 Hospital Vital Signs from 01/09/2017 1:00 PM:* Height : 5/0 ft,in * Pulse : 58 * Respirations : 18 * BP : 135/38 Hospital Vital Signs from 01/09/2017 12:45 PM:* Height : 5/0 ft,in * Pulse : 59 * Respirations : 18 * BP : 125/72 Hospital Vital Signs from 01/09/2017 12:30 PM:* Height : 5/0 ft,in * Pulse : 53 * Respirations : 18 * BP : 111/40 Hospital Vital Signs from 01/09/2017 12:15 PM:* Height : 5/0 ft,in * Pulse : 58 * Respirations : 18 * BP : 128/84 Hospital Vital Signs from 01/09/2017 12:00 PM:* Height : 5/0 ft,in * Pulse : 59 * Respirations : 18 * BP : 157/94 Hospital Vital Signs from 01/09/2017 11:45 AM:* Height : 5/0 ft,in * Pulse : 60 * Respirations : 18 * BP : 136/78 Hospital Vital Signs from 01/09/2017 11:30 AM:* Height : 5/0 ft,in * Pulse : 59 * Respirations : 18 * BP : 120/76 Hospital Vital Signs from 01/09/2017 11:15 AM:* Height : 5/0 ft,in * Pulse : 58 * Respirations : 18 * BP : 138/84 Hospital Vital Signs from 01/09/2017 11:00 AM:* Height : 5/0 ft,in * Pulse : 60 * Respirations : 18 * BP : 132/85 Hospital Vital Signs from 01/09/2017 10:45 AM:* Height : 5/0 ft,in * Pulse : 59 * Respirations : 18 * BP : 134/58 Hospital Vital Signs from 01/09/2017 10:30 AM:* Height : 5/0 ft,in * Temperature : 96.3 F * Pulse : 60 * Respirations : 18 * BP : 126/57 Hospital Vital Signs from 12/26/2016 1:08 PM:* Height : 5/0 ft,in * Pulse : 59 * Respirations : 18 * BP : 145/84 Hospital Vital Signs from 12/26/2016 12:53 PM:* Height : 5/0 ft,in * Pulse : 59 * Respirations : 18 * BP : 152/90 Hospital Vital Signs from 12/26/2016 12:38 PM:* Height : 5/0 ft,in * Pulse : 60 * Respirations : 18 * BP : 157/93 Hospital Vital Signs from 12/26/2016 12:23 PM:* Height : 5/0 ft,in * Pulse : 59 * Respirations : 18 * BP : 152/94 Hospital Vital Signs from 12/26/2016 12:08 PM:* Height : 5/0 ft,in * Pulse : 59 * Respirations : 18 * BP : 146/90 Hospital Vital Signs from 12/26/2016 11:53 AM:* Height : 5/0 ft,in * Pulse : 59 * Respirations : 18 * BP : 139/85 Hospital Vital Signs from 12/26/2016 11:38 AM:* Height : 5/0 ft,in * Pulse : 59 * Respirations : 18 * BP : 143/84 Hospital Vital Signs from 12/26/2016 11:31 AM:* Height : 5/0 ft,in * Pulse : 59 * Respirations : 18 * BP : 144/82 Hospital Vital Signs from 12/26/2016 11:08 AM:* Height : 5/0 ft,in * Pulse : 60 * Respirations : 18 * BP : 146/90 Hospital Vital Signs from 12/26/2016 10:53 AM:* Height : 5/0 ft,in * Pulse : 59 * Respirations : 18 * BP : 146/88 Hospital Vital Signs from 12/26/2016 10:38 AM:* Height : 5/0 ft,in * Pulse : 59 * Respirations : 18 * BP : 143/86 Hospital Vital Signs from 12/26/2016 10:22 AM:* Height : 5/0 ft,in * Pulse : 59 * Respirations : 18 * BP : 140/85 Hospital Vital Signs from 12/26/2016 10:08 AM:* Height : 5/0 ft,in * Pulse : 60 * Respirations : 18 * BP : 125/77 Hospital Vital Signs from 12/26/2016 9:50 AM:* Weight : 101/ lbs,oz * Height : 5/0 ft,in * Height : 5/0 ft,in * Temperature : 96.7 F * Pulse : 64 * Respirations : 18 * BP : 108/61 Results Chemistry from 01/09/2017 10:30 AMCREATININE 1.27 MG/DL H (0.55-1.02 MG/DL) *GFR EST NON AFR PERUVIAN 38 ML/MIN *GFR EST AFR AMER 44 ML/MIN Chemistry from 12/26/2016 10:10 AMCREATININE 1.55 MG/DL H (0.55-1.02 MG/DL) *GFR EST NON AFR PERUVIAN 30 ML/MIN *GFR EST AFR AMER 35 ML/MIN Problems Encounter Diagnosis No relevant problems [...] 8 :57 AM * Completed Procedure Code: 5748518 Procedure Name: not valued, on 08/27/2016 12 :00 AM * Completed Procedure Code: 85960 Procedure Name: not valued, on 08/27/2016 12: 00 AM * Completed Procedure Code: [id number] Procedure Name: not valued, on 07/30/2016 9: 59 AM * Completed Procedure Code: [id number] Procedure Name: not valued, on 07/30/2016 9: 59 AM * Completed Esophagogastroduodenoscopy with control of bleeding, by MD ROOSEVELT DIAZ, on 07/30/2016 9:21 AM * Completed Procedure Code: 8281690 Procedure Name: not valued, on 07/21/2016 12 :00 AM * Completed Procedure Code: 16419 Procedure Name: not valued, on 07/21/2016 12: 00 AM * Completed Procedure Code: 96192 Procedure Name: not valued, on 07/21/2016 12: 00 AM * Completed Procedure Code: 94129N8 Procedure Name: not valued, on 06/21/2016 12 [...]
--- OUTSIDE RECORDS SUMMARY | 2017-02-26 16:19 | XMS REPORT | Summary of Care ---
Author Author Erasto Hammonds, Ry García Unknown Address Unknown Phone Unavailable Care Team Providers Care Filter Worker Name Role Phone Cece Streeter M.D. Unavailable Unavailable Chapito Muro Unavailable Unavailable Reji Hammonds, T. Marciano Unavailable Unavailable Erasto Hammonds, Ry Unavailable Unavailable Saji Hammonds, Krunal Unavailable Unavailable [...] Status: Active Anemia (285.9, D64.9) Status: Active Medications Name Dates Details Multi-Day [...] 5 Chapito Muro * Start 10-Oct-2013 Active Levothyroxine Sodium 25 MCG Oral Tablet TAKE 1 TABLET DAILY. * Quantity: 30 Refills: 3 Chapito Muro * Start 25-Aug-2016 Active Injectafer 750 MG/15ML Intravenous Solution Give 750 mg IV, two doses, one week apart. * Quantity: 30 Refills: 0 Krunal Lennon M.D. * Start 26-Aug-2016 Active Allergies and Adverse Reactions Name Dates [...] CBC w/ Auto Diff 7150 Ordered: 25-Aug-2016 Immunization Name Dates Details Influenza Lot #: [id number] on: 02-Aug-2010 Influenza Lot #: [id number] on: 24-Aug-2012 Pneumo (Pneumovax) Lot #: [id number] on: 24-Aug-2012 Fluzone High-Dose 0.5 ML Intramuscular Suspension Prefilled Syringe Lot #: [id number] on: 25-Jul-2015 Tdap (Adacel) Lot #: [id number] on: 05-Nov-2015 Fluzone High-Dose 0.5 ML Intramuscular Suspension Prefilled Syringe Lot #: [id number] on: 02-Sep-2016 Family History Name Dates Details [...] smoker Vital Signs Date Test Result Details 02-Sep-2016 14:41 BP Systolic 118 mm[Hg] Status: [...] /HPF Range: 0-10 18-Aug-2016 10:59 URINE CULTURE [id number] Comments: [facility] performed at: [facility] [address] [place], [address], Solid State Tester: Gigi Alberto D.O., MPHQuest Collection Date/Time: [id number] Results Received Date/Time: [id number] Reported Date/Time: [id number] FASTING:NOQuest performed at: [facility], [address] [place], [address], Solid State Tester: Gigi Alberto D.O., MPHQuest Collection Date/Time: [id number] Results Received Date/Time: [id number] Reported Date/Time: [id number] FASTING:NOQuest performed at: [facility], [place], [address], Solid State Tester: Gigi Alberto D.O., MPHQuest Collection Date/Time: [id number] Results Received Date/Time: [id number] Reported Date/Time: [id number] FASTING:NO CULTURE, URINE, ROUTINE SEE NOTE (Abnormal) Comments: CULTURE, URINE, ROUTINE MICRO NUMBER: [id number] TEST STATUS: FINAL SPECIMEN SOURCE : URINE [...] threshold) Range: >60 EST GFR, NON-AFR DJIBOUTIAN 29 ml/min (Below low threshold) Range: >60 Comments: EST GFR is reported in ml/min per 1.73 m2 of body surface area. ----- BUN:CREATININE RATIO 14 GLUCOSE 103 mg/dL (Above high threshold) Range: 70-100 ALBUMIN 3.2 g/dL (Below low threshold) Range: 3.4-5.0 PHOSPHORUS 3.1 mg/dL Range: 2.6-4.7 CALCIUM 9.4 mg/dL Range: 8.5-10.1 Plan of Care Name Dates Details Planned Observations Planned Goals not documented Planned Encounters Appointment; Provider: Krunal Lennon M.D. On 04-Nov-2016 13:45 Appointment; Provider: Krunal Lennon M.D. On 03-Oct-2016 10:00 Appointment; Provider: Chapito Muro On 29-Sep-2016 11:45 Appointment; Provider: Stefan Streeter M.D. On 16-Sep-2016 13:30 Instructions Name Dates Details Instructions not documented [...]
--- OUTSIDE RECORDS SUMMARY | 2017-02-26 16:20 | XMS REPORT ---
Author Author GENERATED, SYSTEM Organization Unknown Address Unknown Phone Unavailable Care Team Providers Care Video Game Engineer Name Role Phone MD YEHUDA, CHINO PP [phone] Reason For Visit Reason for Visit from 01/24/2015 12:24 PM:* Pt Stated Reason for Adm : IVIG infusion Chief Complaint IV,CVIDS Social History Functional Status Functional Status from 02/21/2015 11:00 AM:* LOC : Alert * Oriented To : Person,Place,Time,Event Functional Status from 01/24/2015 12:24 PM:* LOC : Alert * Oriented To : Person,Place,Time Vital Signs Hospital Vital Signs from 02/21/2015 2:40 PM:* Height : 5/0 ft,in * Pulse : 59 * Respirations : 18 * BP : 142/79 Hospital Vital Signs from 02/21/2015 2:25 PM:* Height : 5/0 ft,in * Pulse : 59 * Respirations : 18 * BP : 136/76 Hospital Vital Signs from 02/21/2015 2:10 PM:* Height : 5/0 ft,in * Pulse : 59 * Respirations : 18 * BP : 131/71 Hospital Vital Signs from 02/21/2015 1:55 PM:* Height : 5/0 ft,in * Pulse : 59 * Respirations : 18 * BP : 136/83 Hospital Vital Signs from 02/21/2015 1:40 PM:* Height : 5/0 ft,in * Pulse : 60 * Respirations : 18 * BP : 126/72 Hospital Vital Signs from 02/21/2015 1:25 PM:* Height : 5/0 ft,in * Pulse : 58 * Respirations : 18 * BP : 124/66 Hospital Vital Signs from 02/21/2015 1:10 PM:* Height : 5/0 ft,in * Pulse : 59 * Respirations : 18 * BP : 134/54 Hospital Vital Signs from 02/21/2015 12:55 PM:* Height : 5/0 ft,in * Pulse : 58 * Respirations : 18 * BP : 135/70 Hospital Vital Signs from 02/21/2015 12:40 PM:* Height : 5/0 ft,in * Pulse : 59 * Respirations : 18 * BP : 148/75 Hospital Vital Signs from 02/21/2015 12:26 PM:* Height : 5/0 ft,in * Pulse : 58 * Respirations : 18 * BP : 155/74 Hospital Vital Signs from 02/21/2015 12:08 PM:* Height : 5/0 ft,in * Pulse : 59 * Respirations : 16 * BP : 162/79 Hospital Vital Signs from 02/21/2015 11:55 AM:* Height : 5/0 ft,in * Pulse : 59 * Respirations : 18 * BP : 140/79 Hospital Vital Signs from 02/21/2015 11:40 AM:* Height : 5/0 ft,in * Pulse : 59 * Respirations : 18 * BP : 146/82 Hospital Vital Signs from 02/21/2015 11:24 AM:* Height : 5/0 ft,in * Pulse : 59 * Respirations : 18 * BP : 130/71 Hospital Vital Signs from 02/21/2015 11:06 AM:* Height : 5/0 ft,in * Height : 5/0 ft,in * Temperature : 98.0 F * Pulse : 103 * Respirations : 20 * BP : 139/78 Hospital Vital Signs from 01/24/2015 4:32 PM:* Height : 5/0 ft,in * Pulse : 58 * Respirations : 16 * BP : 156/74 Hospital Vital Signs from 01/24/2015 4:25 PM:* Height : 5/0 ft,in * Pulse : 59 * Respirations : 16 * BP : 138/69 Hospital Vital Signs from 01/24/2015 4:10 PM:* Height : 5/0 ft,in * Pulse : 59 * Respirations : 16 * BP : 142/72 Hospital Vital Signs from 01/24/2015 3:55 PM:* Height : 5/0 ft,in * Pulse : 59 * Respirations : 16 * BP : 119/63 Hospital Vital Signs from 01/24/2015 3:40 PM:* Height : 5/0 ft,in * Pulse : 59 * Respirations : 16 * BP : 121/67 Hospital Vital Signs from 01/24/2015 3:25 PM:* Height : 5/0 ft,in * Pulse : 59 * Respirations : 16 * BP : 134/71 Hospital Vital Signs from 01/24/2015 3:10 PM:* Height : 5/0 ft,in * Pulse : 59 * Respirations : 16 * BP : 111/60 Hospital Vital Signs from 01/24/2015 2:55 PM:* Height : 5/0 ft,in * Pulse : 59 * Respirations : 16 * BP : 118/66 Hospital Vital Signs from 01/24/2015 2:40 PM:* Height : 5/0 ft,in * Pulse : 58 * Respirations : 16 * BP : 124/45 Hospital Vital Signs from 01/24/2015 2:25 PM:* Height : 5/0 ft,in * Pulse : 59 * Respirations : 16 * BP : 131/73 Hospital Vital Signs from 01/24/2015 2:10 PM:* Height : 5/0 ft,in * Pulse : 59 * Respirations : 16 * BP : 133/63 Hospital Vital Signs from 01/24/2015 1:55 PM:* Height : 5/0 ft,in * Pulse : 59 * BP : 138/71 Hospital Vital Signs from 01/24/2015 1:40 PM:* Height : 5/0 ft,in * Pulse : 59 * BP : 129/82 Hospital Vital Signs from 01/24/2015 12:55 PM:* Height : 5/0 ft,in * Pulse : 60 * BP : 103/62 Hospital Vital Signs from 01/24/2015 12:34 PM:* Height : 5/0 ft,in * Pulse : 60 * Respirations : 18 * BP : 104/63 Hospital Vital Signs from 01/24/2015 12:22 PM:* Height : 5/0 ft,in * Temperature : 98.0 F * Pulse : 83 * Respirations : 18 * BP : 120/74 Results Problems Encounter Diagnosis No relevant problems [...]
--- OUTSIDE RECORDS SUMMARY | 2017-02-26 16:20 | XMS REPORT | Summary of Care ---
Author Author Vanessa Sauer APRN Organization Unknown Address [address] [place], [place] [id number] Phone Unavailable Care Team Providers Care Software Manager Name Role Phone Cece Streeter M.D. Unavailable Unavailable Chapito Muro Unavailable Unavailable Reji Hammonds, T. Marciano Unavailable Unavailable Vanessa Sauer APRN Unavailable Unavailable Saji Hammonds, Krunal Unavailable Unavailable [...] GFR 15-29 ml/min (585.4, N18.4) Status: Active Essential hypertension (401.9, I10) Status: Active Shortness of breath (786.05, R06.02) Status: Active Abdominal pain (789.00, R10.9) Status: Active Anemia (285.9, D64.9) Status: Active Congestive heart failure (428.0, I50.9) Status: Active Medications Name Dates Details Multi-Day [...] daily * Quantity: 30 Refills: 1 Ferdinand Hammonds Stefan Zhao * Start 04-Dec-2014 Active Ipratropium-Albuterol [...] FOR NAUSEA * Quantity: 30 Refills: 0 EdtomaChapito willson * Start 25-Jun-2016 Active Propranolol HCl - 40 MG Oral Tablet take 11/2 tablets twice daily * Quantity: 90 Refills: 1 Chapito Muro * Start 07-Mar-2015 Active Allopurinol 300 MG Oral Tablet TAKE 1 TABLET DAILY. * Quantity: 30 Refills: 3 EdtomaChapito willson * Start 15-Aug-2014 Active Plavix 75 MG Oral Tablet TAKE 1 TABLET DAILY. * Refills: 0 AustynChapito willson * Start 09-Jul-2016 Active Fluticasone Propionate 50 [...] 30 Refills: 3 EdtomaChapito willson * Start 25-Aug-2016 Active Injectafer 750 MG/15ML [...] Immunization Name Dates Details Influenza Lot #: [id number] on: 02-Aug-2010 Influenza Lot #: [id number] on: 24-Aug-2012 Pneumo (Pneumovax) Lot #: [id number] on: 24-Aug-2012 Fluzone High-Dose 0.5 ML Intramuscular Suspension Prefilled Syringe Lot #: [id number] on: 25-Jul-2015 Tdap (Adacel) Lot #: [id number] on: 05-Nov-2015 Fluzone High-Dose 0.5 ML Intramuscular Suspension Prefilled Syringe Lot #: [id number] on: 02-Sep-2016 Family History Name Dates Details [...] smoker Vital Signs Date Test Result Details 19-Nov-2016 14:28 BP Systolic 140 mm[Hg] Status: Comments: Location: ; Position: BP Diastolic 80 mm[Hg] Status: Comments: Location: ; Position: Temperature 97.9 f Status: Heart Rate 67 /min Status: Comments: Location: [...] low threshold) Range: >60 EST GFR, NON-AFR BERMUDIAN 38 ml/min (Below low threshold) Range: >60 [...] 19-Nov-2016 15:00 ECG/ EKG (Specialists) Electro CardioGram ECG waiting for interpretation, click ImageLink button to view/confirm the study. 15:17 CBC w/ Auto Diff 7150 WBC [...] >60 ml/min Range: >60 EST GFR, NON-AFR BERMUDIAN 50 ml/min (Below low threshold) Range: >60 Comments: EST GFR is reported in ml/min per 1.73 m2 of body surface area. ----- BUN:CREATININE RATIO 37 GLUCOSE 98 mg/dL Range: 70-100 CALCIUM 8.5 mg/dL Range: 8.5-10.1 15:41 TROPONIN I 3451 TROPONIN I <0.04 ng/mL Range: .09 Comments: Called to LaurieVerified by Repeat Analysis<0.10 ng/ml=Negative for MI0.10-0.59 ng/ml=Indeterminate for MI0.60-1.50 ng/ml=Suggestive of [place]----- 15:43 CT AB/ PEL WITHOUT IV CONTRAST [...] Provider: Krunal Lennon M.D. On 30-Dec-2016 13:30 Appointment; Provider: Chapito Muro On 02-Dec-2016 11:15 Appointment; Provider: Schedule Radiology On 19-Nov-2016 15:30 Interventions Provided Labs/Procedures/Imaging* CBC w/ Auto Diff 7150; Done: 19Nov2016 03:07PM * Urinalysis, Reflex to Microscopic or Culture PRN [id number]; Done: 19Nov2016 03:40PM Instructions Name Dates Details Instructions not documented [...]
--- OUTSIDE RECORDS SUMMARY | 2017-02-26 16:20 | XMS REPORT | Summary of Care ---
Author Author Chapito Muro Organization Unknown Address [address] [place], [place] [id number] Phone Unavailable Care Team Providers Care Manager Of Information Name Role Phone Cece Streeter M.D. Unavailable Unavailable Chapito Muro Unavailable Unavailable Reji Hammonds, Henry Tariq Unavailable Unavailable Sony Muro Unavailable Unavailable Unavailable [...] 1 Chapito Muro * Start 16-Jan-2017 Active Allergies and Adverse Reactions Name Dates [...] Immunization Name Dates Details Influenza Lot #: [id number] on: 02-Aug-2010 Influenza Lot #: [id number] on: 24-Aug-2012 Pneumo (Pneumovax) Lot #: [id number] on: 24-Aug-2012 Fluzone High-Dose 0.5 ML Intramuscular Suspension Prefilled Syringe Lot #: [id number] on: 25-Jul-2015 Tdap (Adacel) Lot #: [id number] on: 05-Nov-2015 Fluzone High-Dose 0.5 ML Intramuscular Suspension Prefilled Syringe Lot #: [id number] on: 02-Sep-2016 Family History Name Dates Details [...] BP Systolic 120 mm[Hg] Status: Comments: Location: LUE; Position: Sitting BP Diastolic 78 mm[Hg] Status: Comments: Location: LUE; Position: Sitting Heart Rate 66 /min Status: Comments: Location: ; Weight 100 lb Status: Body Mass Index Calculated 17.71 kg/m2 Status: Body Surface Area Calculated 1.44 m2 Status: 25-Dec-2016 10:38 BP Systolic 114 mm[Hg] Status: Comments: Location: ; Position: BP Diastolic 68 mm[Hg] Status: Comments: Location: ; Position: Temperature 96.9 f Status: Heart Rate 70 /min Status: Comments: Location: ; Physical Findings 16 Status: Comments: Respiration Height 63 in Status: Weight 99.5 lb Status: Physical Findings 96 Status: Comments: O2 Saturation FiO2 flow rate 3 L/min Status: Body Mass Index Calculated 17.63 kg/m2 Status: Body Surface Area Calculated 1.44 m2 Status: Results Date Description Value Details 25-Dec-2016 11:17 Urinalysis, Reflex to Microscopic or [...] low threshold) Range: >60 EST GFR, NON-AFR [place] 38 ml/min (Below low threshold) Range: >60 [...] low threshold) Range: >60 EST GFR, NON-AFR [place] 28 ml/min (Below low threshold) Range: >60 Comments: EST GFR is reported in ml/min per 1.73 m2 of body surface area. ----- BUN:CREATININE RATIO 18 GLUCOSE 125 mg/dL (Above high threshold) Range: 70-100 ALBUMIN 3.3 g/dL (Below low threshold) Range: 3.4-5.0 PHOSPHORUS 3.9 mg/dL Range: 2.6-4.7 CALCIUM 9.0 mg/dL Range: 8.5-10.1 16-Jan-2017 15:18 Urinalysis, Reflex to Microscopic or [...] Provider: Krunal Lennon M.D. On 28-Jan-2017 09:00 Interventions Provided Labs/Procedures/Imaging* Urinalysis, Reflex to Microscopic or Culture PRN [id number]; Done: 16Jan2017 01:20PM Instructions Name Dates Details Instructions not documented [...] Problem not documented On 20-Feb-2016 16:05 Appointment; hCapito Muro Encounter Diagnosis: Problem not documented On [...]
--- OUTSIDE RECORDS SUMMARY | 2017-02-26 16:21 | XMS REPORT | Summary of Care ---
Author Author Bruce Saunders M.D. Unknown Address [address] [place], [place] [address] Phone Unavailable Care Team Providers Care 911 Operator Name Role Phone Ceec Streeter M.D. Unavailable Unavailable Chapito Mruo Unavailable Unavailable Reji Hammonds, T. KLinda Unavailable [...] Status: Active Screening (V82.9, Z13.9) Status: Active Medications Name Dates Details Multi-Day [...] Immunization Name Dates Details Influenza Lot #: [id number] Administered on:02-Aug-2010 Influenza Lot #: [id number] Administered on:24-Aug-2012 Pneumo (Pneumovax) Lot #: [id number] Administered on:24-Aug-2012 Fluzone High-Dose 0.5 ML Intramuscular Suspension Prefilled Syringe Lot #: [id number] Administered on:25-Jul-2015 Tdap (Adacel) Lot #: [id number] Administered on:05-Nov-2015 Family History natural son* Name [...] low threshold) Range: >60 EST GFR, NON-AFR [place] 31 ml/min (Below low threshold) Range: >60 Comments: EST GFR is reported in ml/min per 1.73 m2 of body surface area. For -Russian, please multiple result by 1.2.----- BUN:CREATININE RATIO [...] low threshold) Range: >60 EST GFR, NON-AFR [place] 30 ml/min (Below low threshold) Range: >60 Comments: EST GFR is reported in ml/min per 1.73 m2 of body surface area. For -Russian, please multiple result by 1.2.----- GLUCOSE 98 [...] low threshold) Range: >60 EST GFR, NON-AFR [place]AL[place] 34 ml/min (Below low threshold) Range: >60 Comments: EST GFR is reported in ml/min per 1.73 m2 of body surface area. For -Russian, please multiple result by 1.2.----- GLUCOSE 98 [...] Lennon On 25-Dec-2015 14:00 * Appointment; Provider: [facility] On 14-Dec-2015 14:10 * Appointment; Provider: Benigno Holt On 07-Jun-2012 [...]
--- OUTSIDE RECORDS SUMMARY | 2017-02-26 16:21 | XMS REPORT | Summary of Care ---
Author Author Chapito Muro Organization Unknown Address [address] [id number] Phone Unavailable Care Team Providers Care Sheet Metal Shop Supervisor Name Role Phone Ferdinand Hammonds, Cece [...] Immunization Name Dates Details Influenza Lot #: [id number] on: 02-Aug-2010 Influenza Lot #: [id number] on: 24-Aug-2012 Pneumo (Pneumovax) Lot #: [id number] on: 24-Aug-2012 Fluzone High-Dose 0.5 ML Intramuscular Suspension Prefilled Syringe Lot #: [id number] on: 25-Jul-2015 Tdap (Adacel) Lot #: [id number] on: 05-Nov-2015 Fluzone High-Dose 0.5 ML Intramuscular Suspension Prefilled Syringe Lot #: [id number] on: 02-Sep-2016 Family History Name Dates Details [...] /HPF Range: 0-10 25-Sep-2016 16:19 URINE CULTURE [id number] Comments: [facility], [address] [place] [address], [phone], Head Esthetician: Gigi Alberto D.O., MPHQuest Collection Date/Time: [id number] Results Received Date/Time: [id number] Reported Date/Time: FASTING:NOQuest performed at: [facility], [address] [place] [address], [phone], Head Esthetician: Gigi Alberto D.O., MPHQuest Collection Date/Time: [id number] Results Received Date/Time: [id number] Reported Date/Time: FASTING:NO CULTURE, URINE, ROUTINE SEE NOTE (Abnormal) Comments: CULTURE, URINE, ROUTINE MICRO NUMBER: [id number] TEST STATUS: FINAL SPECIMEN SOURCE : URINE [...] low threshold) Range: >60 EST GFR, NON-AFR [place] 41 ml/min (Below low threshold) Range: >60 [...] high threshold) Range: 81-234 30-Sep-2016 13:28 Haptoglobin [id number] Comments: ORDER IN OFFICETesting performed at: [DA[facility], [address] [place] [address], [phone], , Head Esthetician: KEILA Carranza MD Fastin hours HAPTOGLOBIN 180 mg/dL Range: 34-200 01-Oct-2016 08:17 VIVIAN PE and FLC Serum [id number] Comments: ORDER IN OFFICETesting performed at: [DA] [facility], [address] [place] [address], [place], [address], , Head Esthetician: KEILA Carranza MD Fastin hours IMMUNOGLOBULIN G, QN, SERUM 446 mg/dL (Below low threshold) Range: 700- 1600 IMMUNOGLOBULIN A, QN, SERUM 26 mg/dL (Below low threshold) Range: 64-422 IMMUNOGLOBULIN M, QN, SERUM 7 mg/dL (Below low threshold) Range: 26-217 Comments: Verified by repeat analysis----- PROTEIN, TOTAL, SERUM 5.5 g/dL (Below low threshold) Range: 6.0-8.5 ALBUMIN 3.0 g/dL Range: 2.9-4.4 HHSCI-6-PSVVIPNA 0.4 g/dL Range: 0.0-0.4 HDLBJ-0-LVACTCBT 0.9 g/dL Range: 0.4-1.0 BETA GLOBULIN 0.8 g/dL Range: 0.7-1.3 GAMMA GLOBULIN 0.4 g/dL Range: 0.4-1.8 M-SPIKE Not Observed g/dL Range: Not Observed GLOBULIN, TOTAL 2.5 g/dL Range: 2.2-3.9 A/G RATIO 1.3 Range: 0.7-1.7 IMMUNOFIXATION RESULT, SERUM Comment Comments: An apparent normal immunofixation pattern.----- PLEASE NOTE: Comment Comments: Protein electrophoresis scan will follow via computer,mail, or managed care director delivery.----- FREE KAPPA LT CHAINS,S 13.97 mg/L Range: 3.30-19.40 FREE LAMBDA LT CHAINS,S 12.84 mg/L Range: 5.71-26.30 KAPPA/LAMBDA RATIO,S 1.09 Range: 0.26-1.65 17-Oct-2016 10:44 CBC w/ Auto Diff 7150 [...] Range: 0.0-0.7 BASO 0.1 K/uL Range: 0.0-0.2 Plan of Care Name Dates Details Planned Observations Planned Goals not documented Planned Encounters Appointment; Provider: Stefan Streeter M.D. On 19-Mar-2017 14:00 Appointment; Provider: Schedule Radiology On 03-Feb-2017 08:00 Appointment; Provider: Chapito Muro On 02-Dec-2016 11:15 Appointment; Provider: Krunal Lennon M.D. On 04-Nov-2016 13:45 Appointment; Provider: Bruce Saunders M.D. On 03-Nov-2016 09:30 Interventions Provided Labs/Procedures/Imaging* CBC w/ Auto Diff 7150; Done: [id number] 10:16AM Instructions Name Dates Details Instructions not documented [...] not documented On 06-Feb-2016 10:30 Appointment; Stefan Srteeter M.D. Encounter Diagnosis: Problem not documented On [...]
--- OUTSIDE RECORDS SUMMARY | 2017-02-26 16:22 | XMS REPORT ---
Author Author GENERATED, SYSTEM Organization Unknown Address Unknown Phone Unavailable Care Team Providers Care Major Assembly Inspector Name Role Phone MD CORTEZ, EMILI PP [phone] Reason For Visit Chief Complaint ANEMIA HGB 7.5 Social History Functional Status Vital Signs Results [...] Soarian Workflow upon Discharge, Status: Resolved. * Mobility Impairment Comment:Problem resolved by Soarian Workflow upon Discharge, Status:Resolved. Encounters Encounter Diagnosis No relevant problems exist. Plan of Care Procedures * Completed Procedure Code: [id number] Procedure Name: not valued, on 06/21/2016 12 [...]
--- OUTSIDE RECORDS SUMMARY | 2017-02-26 16:22 | XMS REPORT ---
Author Author GENERATED, SYSTEM Organization Unknown Address Unknown Phone Unavailable Care Team Providers Care Warehouse Insulation Worker Name Role Phone MD YEHUDA, CHINO PP [phone] Reason For Visit Reason for Visit from 05/16/2015 11:21 AM:* Pt Stated Reason for Adm : IVIG Chief Complaint IV,CVIDS Social History Functional Status Functional Status from 05/16/2015 11:21 AM:* LOC : Alert * Oriented To : Person,Place,Time,Event Vital Signs Hospital Vital Signs from 05/16/2015 3:10 PM:* Height : 5/0 ft,in * Pulse : 60 * BP : 108/59 Hospital Vital Signs from 05/16/2015 2:55 PM:* Height : 5/0 ft,in * Pulse : 60 * BP : 109/53 Hospital Vital Signs from 05/16/2015 2:40 PM:* Height : 5/0 ft,in * Pulse : 60 * BP : 110/62 Hospital Vital Signs from 05/16/2015 2:25 PM:* Height : 5/0 ft,in * Pulse : 60 * BP : 108/55 Hospital Vital Signs from 05/16/2015 2:10 PM:* Height : 5/0 ft,in * Pulse : 60 * BP : 111/58 Hospital Vital Signs from 05/16/2015 1:55 PM:* Height : 5/0 ft,in * Pulse : 60 * BP : 119/62 Hospital Vital Signs from 05/16/2015 1:40 PM:* Height : 5/0 ft,in * Pulse : 60 * BP : 112/58 Hospital Vital Signs from 05/16/2015 1:25 PM:* Height : 5/0 ft,in * Pulse : 60 * BP : 115/57 Hospital Vital Signs from 05/16/2015 1:10 PM:* Height : 5/0 ft,in * Pulse : 60 * BP : 114/62 Hospital Vital Signs from 05/16/2015 12:55 PM:* Height : 5/0 ft,in * Pulse : 60 * BP : 118/62 Hospital Vital Signs from 05/16/2015 12:40 PM:* Height : 5/0 ft,in * Pulse : 60 * BP : 127/64 Hospital Vital Signs from 05/16/2015 12:25 PM:* Height : 5/0 ft,in * Pulse : 60 * Respirations : 18 * BP : 133/68 Hospital Vital Signs from 05/16/2015 12:10 PM:* Height : 5/0 ft,in * Pulse : 60 * Respirations : 18 * BP : 129/73 Hospital Vital Signs from 05/16/2015 11:55 AM:* Height : 5/0 ft,in * Pulse : 60 * BP : 133/72 Hospital Vital Signs from 05/16/2015 11:40 AM:* Height : 5/0 ft,in * Pulse : 60 * BP : 117/64 Hospital Vital Signs from 05/16/2015 11:25 AM:* Height : 5/0 ft,in * Pulse : 60 * BP : 114/59 Hospital Vital Signs from 05/16/2015 11:10 AM:* Height : 5/0 ft,in * Pulse : 62 * BP : 126/65 Hospital Vital Signs from 05/16/2015 11:00 AM:* Height : 5/0 ft,in * Temperature : 97.6 F * Pulse : 66 * Respirations : 16 * BP : 135/67 Results Problems Encounter Diagnosis No relevant problems [...]
--- OUTSIDE RECORDS SUMMARY | 2017-02-26 16:22 | XMS REPORT | Summary of Care ---
Author Author Chapito Muro Organization Unknown Address [address] [place] [place] [address] Phone Unavailable Care Team Providers Care Warehouse Foreman Name Role Phone Cece Streeter M.D. Unavailable [...] Oral Tablet Delayed Release * Refills: 0 Hnery Mendoza M.D.* Started 05-Jul-2013 ActiveMirtazapine 45 MG [...] Refills: 3 Chapito Muro * Started 19-Jan-2014 Active Allergies and Adverse Reactions Name Dates [...] RENAL PROFILE 1240 Ordered:22-Oct-2015 HEMOGRAM 7305 Ordered:22-Oct-2015 DEXA Ordered:05-Nov-2015 MAMMOGRAM-SCREENING Ordered:05-Nov-2015 Immunization Name Dates Details Influenza Lot #: [id number] Administered on:02-Aug-2010 Influenza Lot #: [id number] Administered on:24-Aug-2012 Pneumo (Pneumovax) Lot #: [id number] Administered on:24-Aug-2012 Fluzone High-Dose 0.5 ML Intramuscular Suspension Prefilled Syringe Lot #: [id number] Administered on:25-Jul-2015 Tdap (Adacel) Lot #: [id number] Administered on:05-Nov-2015 Family History natural son* Name [...] low threshold) Range: >60 EST GFR, NON-AFR ESTONIAN 31 ml/min (Below low threshold) Range: >60 Comments: EST GFR is reported in ml/min per 1.73 m2 of body surface area. For -[place], please multiple result by 1.2.----- BUN:CREATININE RATIO [...] low threshold) Range: >60 EST GFR, NON-AFR ESTONIAN 30 ml/min (Below low threshold) Range: >60 Comments: EST GFR is reported in ml/min per 1.73 m2 of body surface area. For -[place], please multiple result by 1.2.----- GLUCOSE 98 [...] low threshold) Range: >60 EST GFR, NON-AFR ESTONIAN 34 ml/min (Below low threshold) Range: >60 Comments: EST GFR is reported in ml/min per 1.73 m2 of body surface area. For -[place], please multiple result by 1.2.----- GLUCOSE 98 [...] 14:10 * Appointment; Provider: Bruce Saunders On 13-Nov-2015 10:45 * Appointment; Provider: Benigno Holt On 07-Jun-2012 14:00 * Appointment; Provider: Bruce Saunders On 11:45 * Appointment; Provider: Raphael Mcduffie On 11-Dec-2010 09:15 * Appointment; Provider: Mikal Felipe On 21-Mar-2008 13:15 Instructions * Instructions not documented Encounters Appointment; Chapito Muro [...]
--- OUTSIDE RECORDS SUMMARY | 2017-02-26 16:22 | XMS REPORT | Summary of Care ---
Author Author Chapito Muro Organization Unknown Address [address] [place], [place] [id number] Phone Unavailable Care Team Providers Care Personnel Analyst Name Role Phone Cece Streeter M.D. [...] 7305 Ordered:31-Dec-2015 Parathyroid Hormone Intact 3101 Ordered:31-Dec-2015 Immunization Name Dates Details Influenza Lot #: [id number] Administered on:02-Aug-2010 Influenza Lot #: [id number] Administered on:24-Aug-2012 Pneumo (Pneumovax) Lot #: [id number] Administered on:24-Aug-2012 Fluzone High-Dose 0.5 ML Intramuscular Suspension Prefilled Syringe Lot #: [id number] Administered on:25-Jul-2015 Tdap (Adacel) Lot #: [id number] Administered on:05-Nov-2015 Family History natural son* Name [...] m2 Status: Results Date Description Value Details 24-Dec-2015 15:01 CBC w/ Auto Diff 7150 [...] low threshold) Range: >60 EST GFR, NON-AFR [place] 34 ml/min (Below low threshold) Range: >60 Comments: EST GFR is reported in ml/min per 1.73 m2 of body surface area. For -Macanese, please multiple result by 1.2.----- GLUCOSE 145 [...] 153 pg/mL (Above high threshold) Range: 14-72 07-Jan-2016 12:16 CBC w/ Auto Diff 7150 WBC 9.8 K/uL (Better) Range: 4.5-11.0 RBC 3.18 mil/uL (Below low threshold) Range: 3.60-5.00 HGB 11.1 g/dL (Below low threshold) Range: 12.0-16.0 HCT 35.0 % (Below low threshold) Range: 36.0-48.0 MCV 110.1 fL (Above high threshold) Range: 80.0-99.0 MCH 34.9 pg (Above high threshold) Range: 27.3-32.5 MCHC 31.7 % (Below low threshold) Range: 32.0-36.0 RDW 15.7 % (Above high threshold) Range: 11.6-14.8 PLATELETS 198 K/uL (Better) Range: 150-400 MPV 8.5 fL (Better) Range: 6.0-11.0 %NEUTRO 66.5 % (Better) Range: 37.0-80.0 %LYMPHS 25.2 % (Better) Range: 13.0-50.0 %MONO 3.0 % (Better) Range: 0.0-12.0 %EOS 3.9 % (Better) Range: 0.0-7.0 %BASO 0.4 % (Better) Range: 0.0-2.5 %HAILMA 1.0 % (Better) Range: 0.0-5.0 NEUTRO 6.5 K/uL (Better) Range: 2.0-6.9 LYMPHS 2.5 K/uL (Better) Range: 0.6-3.4 MONOS 0.3 K/uL (Better) Range: 0.0-0.9 EOS 0.4 K/uL (Better) Range: 0.0-0.7 BASO 0.0 K/uL (Better) Range: 0.0-0.2 12:18 Comprehensive Metabolic Panel 1212 SODIUM 141 mmol/L (Better) Range: 133-144 POTASSIUM 3.5 mmol/L (Better) Range: 3.5-5.1 CHLORIDE 100 mmol/L (Better) Range: 98-110 CARBON DIOXIDE 31.0 mmol/L (Better) Range: 23.0-33.0 ANION GAP 10 mmol/L (Better) Range: 6-16 BUN 33 mg/dL (Above high threshold) Range: 7-18 CREATININE, SERUM 1.30 mg/dL (Above high threshold) Range: 0.55-1.02 Comments: Please note new reference ranges effective 2015.----- BUN:CREATININE RATIO 25 (Better) EST GFR, 47 ml/min (Below low threshold) Range: >60 EST GFR, NON-AFR [place] 39 ml/min (Below low threshold) Range: >60 Comments: EST GFR is reported in ml/min per 1.73 m2 of body surface area. For -Macanese, please multiple result by 1.2.----- GLUCOSE 100 mg/dL (Better) Range: 70-100 Comments: Variance from previous testing noted.----- ALK PHOSPHATASE 124 U/L (Above high threshold) Range: 46-116 TOTAL BILIRUBIN 0.30 mg/dL (Better) Range: 0.20-1.00 AST 32 U/L (Better) Range: 8-35 ALT 29 U/L (Better) Range: 14-59 Comments: Please note new reference ranges. Effective 01/04/2015.----- ALBUMIN 2.9 g/dL (Below low threshold) Range: 3.4-5.0 TOTAL PROTEIN 7.1 g/dL (Better) Range: 6.4-8.2 A/G RATIO 0.7 units (Below low threshold) Range: 1.0-1.8 CALCIUM 8.7 mg/dL (Better) Range: 8.5-10.1 12:18 LDH 1140 LDH 366 U/L (Above high threshold) Range: 81-234 16-Jan-2016 14:41 DEXA Comments: Exam Date: 01/16/2016 [...] low threshold) Range: >60 EST GFR, NON-AFR [place] 44 ml/min (Below low threshold) Range: >60 Comments: EST GFR is reported in ml/min per 1.73 m2 of body surface area. For -Macanese, please multiple result by 1.2.----- GLUCOSE 108 [...] (Better) MACROCYT Mod (Better) HYPOCHRO Slight (Better) Plan of Care Planned Observations* Name [...]
--- OUTSIDE RECORDS SUMMARY | 2017-02-26 16:23 | XMS REPORT | Summary of Care ---
Author Author Stefan Streeter M.D. Unknown Address [address] [place], [place] [id number] Phone Unavailable Care Team Providers Care Uke Operator Name Role Phone Ferdinand Hammonds, Cece [...] of right shoulder (726.10, M75.41) Status: Active Shoulder pain, left (719.41, M25.512) [...] Dyspnea on exertion (786.09, R06.09) Status: Active Medications Name Dates Details Multi-Day Vitamins Oral Tablet I po qd * Started 07-Jun-2009 ActiveROPINIRole HCl - 1 MG Oral Tablet TAKE ONE TABLET BY MOUTH EVERY NIGHT AT BEDTIME * Quantity: 90 Refills: 0 Chapito Muro * Started 31-Aug-2009 ActiveOxygen 2 LPM 24 HOURS A DAY MAY TITRATE UP FOR DYSPNEA * Refills: 0 * Started ActiveBrovana 15 MCG/2ML Inhalation Nebulization Solution USE VIA NEBULIZER TWO TIMES DAILY (dx:J44.9) * Quantity: 120 Refills: 11 Stefan Streeter M.D.* Started 23-Nov-2012 ActiveIpratropium-Albuterol 0.5-2.5 (3) MG/3ML Inhalation Solution INHALE 1 VIAL Daily (dx:J44.9) * Quantity: 90 Refills: 11 Stefan Streeter M.D.* Started 06-Dec-2012 ActiveAdult Aspirin EC Low Strength 81 MG Oral Tablet Delayed Release * Refills: 0 Henry Mendoza M.D.* Started 05-Jul-2013 ActiveMirtazapine 45 MG Oral Tablet TAKE 1/2 TABLET DAILY * Refills: 0 Stefan Streeter M.D.* Started 10-Oct-2013 ActiveDULoxetine HCl - 60 MG Oral Capsule [...] Refills: 0 Chapito Muro * Started 15-Aug-2014 ActiveAcyclovir 400 MG Oral Tablet TAKE 1 TABLET TWICE DAILY. * Quantity: 60 Refills: 3 Chapito Muro * Started 15-Aug-2014 ActiveAllopurinol 300 [...] Refills: 11 Stefan Streeter M.D.* Started 01-Nov-2015 ActiveFurosemide 40 MG Oral Tablet take one [...] Immunization Name Dates Details Influenza Lot #: [id number] Administered on:02-Aug-2010 Influenza Lot #: [id number] Administered on:24-Aug-2012 Pneumo (Pneumovax) Lot #: [id number] Administered on:24-Aug-2012 Fluzone High-Dose 0.5 ML Intramuscular Suspension Prefilled Syringe Lot #: [id number] Administered on:25-Jul-2015 Tdap (Adacel) Lot #: [id number] Administered on:05-Nov-2015 Family History natural son* Name [...] m2 Status: Results Date Description Value Details 07-Jan-2016 12:16 CBC w/ Auto Diff 7150 [...] %BASO 0.4 % (Better) Range: 0.0-2.5 %HALIMA 1.0 % (Better) Range: 0.0-5.0 NEUTRO 6.5 [...] low threshold) Range: >60 EST GFR, NON-AFR [place] 39 ml/min (Below low threshold) Range: >60 Comments: EST GFR is reported in ml/min per 1.73 m2 of body surface area. For -[place], please multiple result by 1.2.----- GLUCOSE 100 [...] low threshold) Range: >60 EST GFR, NON-AFR [place] 44 ml/min (Below low threshold) Range: >60 Comments: EST GFR is reported in ml/min per 1.73 m2 of body surface area. For -[place], please multiple result by 1.2.----- GLUCOSE 108 [...] Muro On 06-Feb-2016 13:15 * Appointment; Provider: Bruce Saunders On 06-Feb-2016 10:30 * Appointment; Provider: Schedule Radiology On 16-Jan-2016 13:40 * Appointment; Provider: Benigno Holt On 07-Jun-2012 14:00 * Appointment; Provider: Bruce Saunders On 11:45 * Appointment; Provider: Raphael Mcduffie On 11-Dec-2010 09:15 * Appointment; Provider: Mikal Felipe On 21-Mar-2008 13:15 Instructions * Instructions not documented Encounters Appointment; Stefan Streeter Encounter Diagnosis: Problem not [...]
--- OUTSIDE RECORDS SUMMARY | 2017-02-26 16:23 | XMS REPORT | Continuity of Care Document ---
Author Author [facility] Organization [facility] Address Unknown Phone Unavailable Support Name Relationship Address Phone AMBAR MALONEY MD Caregiver [facility] [phone] [facility] [address] [place] [address] SABINO FORD Caregiver [phone] [facility] [place] [phone] ELISABET TERAN Next Of Kin [address] [place] [address] Insurance Providers Payer Name Policy Number Subscriber Name Relationship Medicare [id number] Genesis Duque 19 Self [facility] [employer] Plan [id number] Genesis Duque 18 Self Advance Directives Directive Response Recorded Date/Time Advanced Directives Type DNR Documentation Living Will DPOA for Healthcare 6:50pm Ordered Resuscitation Status Limited Code 04/10/14 3:17pm Resuscitation Documents on File N "UNKNOWN" 04/27/14 6:50pm Problems Medical Problems Problem Onset Date Status Chest pain Unknown Resolved Hypertension Unknown Active CAD (coronary artery disease) Unknown Active Pulmonary hypertension Unknown Active Anemia 05/03/2014 Active Suspected DVT (deep vein thrombosis) 06/06/2014 Active Left leg pain Unknown Active Left leg pain Unknown Active Fever Unknown Active Immunodeficiency Unknown Active CHF exacerbation Unknown Active Pleuritic chest pain Unknown Active Pleuritic chest pain Unknown Active Surgical Problems Problem Onset Date Recorded Date/Time Status Status post placement of cardiac pacemaker Unknown 04/11/2014 12:17pm Active 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 04/11/2014 12:18pm Active H/O mitral valve repair Unknown 04/11/2014 12:18pm Active Medications Medication Dose Route Sig Days/Qty Instructions Order Date Discontinued Date Status Mirtazapine 0.5 Tab PO BEDTIME 04/10/14 Active Propranolol Hcl 40 Mg PO TWICE A DAY 04/10/14 04/19/14 Discontinued Furosemide 40 Mg PO DAILY 04/10/14 Active Famotidine 40 Mg PO TWICE A DAY 04/10/14 05/03/14 Discontinued Potassium Chloride 10 Meq PO DAILY 04/10/14 Active Simvastatin 40 Mg PO BEDTIME 04/10/14 04/19/14 Discontinued Ropinirole Hcl 1 Mg PO BEDTIME 04/10/14 Active Duloxetine Hcl 30 Mg PO DAILY 04/10/14 Active Multivitamins 1 Tab PO DAILY 04/10/14 Active Ferrous Sulfate 324 Mg PO TWICE A DAY 1 Qty 04/10/14 Active Benzonatate 100 Mg PO THREE TIMES A DAY PRN PRN ORDERS 04/27/14 Active Albuterol Sulfate 2 Puff IH Every 6 Hours PRN PRN ORDERS 04/27/14 Active Prednisone 20 Mg PO DAILY 04/27/14 05/03/14 Discontinued Polyethylene Glycol 3350 17 Gm PO DAILY PRN CONSTIPATION 04/27/14 Active Aspirin 81 Mg PO DAILY 04/27/14 05/03/14 Discontinued Acetaminophen 2 Tab PO Every 6 Hours PRN ARTHRITIS 04/27/14 Discontinued Albuterol Sulfate 3 Mg INH TWICE A DAY 04/27/14 05/03/14 Discontinued Budesonide 0.5 Mg IH TWICE A DAY 04/27/14 Active Pantoprazole Sodium 1 Tab PO DAILY 06/06/14 Active Lorazepam 0.5 Mg PO TWICE A DAY PRN ANXIETY 06/06/14 Active Allopurinol 1 Tab PO DAILY 06/06/14 Active Folic Acid 1 Tab PO DAILY 06/06/14 Active Acetaminophen 650 Mg PO Every 6 Hours PRN PAIN 06/06/14 Active Acyclovir 1 Tab PO 06/19/14 Active Levofloxacin 1 Tab PO QD 10 Qty 06/19/14 Active Social History Social History Problem Response Recorded Date/Time Hx Alcohol Use No 06/25/2014 10:50am Has the pt used tobacco in the last 12 months No 04/27/2014 6:52pm Tobacco Usage none 04/27/2014 9:27pm Query Response Start Date Stop Date Smoking Status Never smoker Hospital Discharge Instructions No hospital discharge instructions. Plan of Care No plan of care. Functional Status Query Response Date Recorded Physical Hygiene Self June 25, 2014 10:50am Disabilities Hearing Visual May 03, 2014 5:22pm Devices Used Dentures Glasses Walker April 19, 2014 2:13pm Dressing Self April 19, 2014 2:13pm Ambulation Self May 03, 2014 5:22pm Diet Self April 19, 2014 2:13pm Mental Status Alert Oriented May 03, 2014 5:22pm Disabilities Hearing Visual May 03, 2014 5:22pm Devices Used Dentures Glasses Walker April 19, 2014 2:13pm Physical Hygiene Self June 25, 2014 10:50am Dressing Self April 19, 2014 2:13pm Ambulation Self May 03, 2014 5:22pm Diet Self April 19, 2014 2:13pm Allergies, Adverse Reactions, Alerts Allergen Type Severity Reaction Status Last Updated Cefuroxime Allergy Mild GI upset Active 06/25/14 Axetil Allergy Mild GI Upset Active 04/10/14 Immunizations Name Given Type Hx Influenza Vaccination Y fall Historical Hx Pneumococcal Vaccination Y "I DON'T REMEMBER WHAT YEAR" Historical Hx Influenza Vaccination Y fall Historical Vital Signs No known vital signs results. Results Test Source Date Result Interp. Ref. Range Comments Absolute Reticulocyte Count October 30, 2014 11:42am 0.0650 T/MM3 N 0.0300-0.0900 Acanthocytes July 06, 2014 10:38am 1+ - Activated Partial Thromboplast Time June 25, 2014 10:55am 40.4 SEC H 24-36 Alanine Aminotransferase (ALT/SGPT) October 30, 2014 11:42am 22 U/L N 9- 52 Albumin October 30, 2014 11:42am 4.6 G/DL N 3.5-5.0 Albumin/Globulin Ratio October 30, 2014 11:42am 1.5 RATIO N 1.1-2.2 Alkaline Phosphatase October 30, 2014 11:42am 88 U/L N 38-126 Lrpev-1-Iqkmvyzcd October 30, 2014 11:42am 0.4 g/dL - Zsgnk-3-Nufmmscfw (%) October 30, 2014 11:42am 6.0 % - Icesa-9-Lklvibdth October 30, 2014 11:42am 1.1 g/dL - Wzsnh-3-Yclacjnja (%) October 30, 2014 11:42am 15.4 % - Amylase Level October 27, 2014 2:30pm 164 U/L H 30-110 Anion Gap October 30, 2014 11:42am 11 MEQ/L N 5-15 Anisocytosis July 06, 2014 10:38am 2+ - Aspartate Amino Transf (AST/SGOT) October 30, 2014 11:42am 45 U/L H 14- 36 BUN/Creatinine Ratio October 30, 2014 11:42am 22 RATIO N 6-26 Band Neutrophils # July 06, 2014 10:38am 0.4 T/MM3 - Band Neutrophils % July 06, 2014 10:38am 3.0 % N 0-6 Basophils # (Auto) October 30, 2014 11:42am 0.1 T/MM3 N 0-0.2 Basophils # (Manual) April 28, 2014 10:43am 0.2 T/MM3 N 0-0.2 Basophils % (Manual) April 28, 2014 10:43am 1.0 % N 0-2 Basophils (%) (Auto) October 30, 2014 11:42am 0.9 % N 0-2 Blood Smear Pathologist Review May 01, 2014 4:20am Sent for review - Blood Urea Nitrogen October 30, 2014 11:42am 22.0 MG/DL H 7-17 C-Reactive Protein October 27, 2014 2:30pm 18.9 MG/L H 0-9 Calcium Level October 30, 2014 11:42am 10.7 MG/DL H 8.4-10.2 Calculated Osmolality October 30, 2014 11:42am 282 MOSM/KG H 261-280 Carbon Dioxide Level October 30, 2014 11:42am 37 MEQ/L H 22-30 Chloride Level October 30, 2014 11:42am 97 MEQ/L L 98-107 Cold Agglutinin Titer April 28, 2014 10:43am Negative - Conjugated Bilirubin April 28, 2014 7:55pm 0.00 MG/DL N 0.00-0.30 COMMENT TO BE TAKEN WITH NEXT BLOOD DRAW Corrected White Blood Count April 30, 2014 4:35am 18.2 T/MM3 H 4.5-11.0 Creatine Kinase MB April 28, 2014 10:45pm 0.7 NG/ML N 0-3.4 Creatinine October 30, 2014 11:42am 1.0 MG/DL DN 0.7-1.2 D-Dimer June 25, 2014 10:55am < 150 NG/ML 0-224 <224 NG/ML= PRESUMPTIVE NEGATIVE FOR PE OR DVT>224 NG/ML=ADDITIONAL EVALUATION FOR PE OR DVT RECOMMENDED Eosinophils # (Auto) October 30, 2014 11:42am 0.6 T/MM3 H 0-0.5 Eosinophils # (Manual) July 06, 2014 10:38am 1.3 T/MM3 H 0-0.5 Eosinophils % (Manual) July 06, 2014 10:38am 11.0 % H 0-4 Eosinophils (%) (Auto) October 30, 2014 11:42am 5.4 % H 0-4 Erythrocyte Sedimentation Rate October 27, 2014 2:30pm 77 MM/HR H 0-20 Erythropoietin April 11, 2014 5:59am 17.9 mIU/mL - Reference Range: 2.6 - 18.5 Test Performed by: [facility] [address] [place] [address] Reel Worker: Amos Montero III, M.D. Erythropoietin performed at [facility], [address] [place] [address] Warp Starter Winston Camacho MD Ferritin April 11, 2014 8:00pm 464 NG/ML H 11-264 COMMENT with next troponin draw. Fibrin Degradation Products May 01, 2014 4:20am >40ug/ml UG/ML H - Ordering r/o VTE No Fibrinogen May 01, 2014 4:20am 541 MG/DL H 135-357 Ordering r/o VTE No Folate April 11, 2014 5:59am > 20.0 NG/ML H 2.76-20 NORMAL ADULT RANGE: 2.76->20 ng/mL Gamma Globulins October 30, 2014 11:42am 1.0 g/dL - Gamma Globulins (%) October 30, 2014 11:42am 13.9 % - Immunoelectrophoresis, no IMQ performed at [facility], [address] [place] [address] Warp Starter Leonidas Camacho MD Gamma Glutamyl Transpeptidase April 28, 2014 10:43am 120 U/L H 8-78 Globulin October 30, 2014 11:42am 3.1 G/DL N 2.4-3.6 Glucose Level October 30, 2014 11:42am 94 MG/DL N 65-110 Haptoglobin October 30, 2014 11:42am 184 mg/dL - Haptoglobin performed at [facility], [address] [place], [place] [address]Medical Director Leonidas Camacho MD Hematocrit October 30, 2014 11:42am 40.1 % N 36-46 Hemoglobin October 30, 2014 11:42am 12.4 GM/DL N 12-16 Hemoglobin A1c April 11, 2014 5:59am 5.6 % L 6-7 <6.0 NON-DIABETIC RANGE6.0-7.0 ADA THERAPEUTIC RANGE >7.0 ACTION SUGGESTED Hepatitis A IgM Antibody April 29, 2014 4:19am Negative - Hepatitis B Core IgM Antibody April 29, 2014 4:19am Negative - Hepatitis B Surface Ab Concentrat April 29, 2014 4:19am Positive - Hepatitis B Surface Antigen April 29, 2014 4:19am Negative - Hepatitis C Antibody April 29, 2014 4:19am Negative - Homocysteine April 11, 2014 5:59am 5.6 umol/L - Homocysteine performed at [facility], [address] [place], [place] [address]Medical Director Leonidas Camacho MD [place] Bodies April 27, 2014 7:35pm 1+ - Hypochromasia June 08, 2014 8:50am 1+ - Immature Reticulocyte Fraction October 30, 2014 11:42am 8.2 % N 3.3- 14.5 Immunoglobulin A October 30, 2014 11:42am < 40.00 MG/DL L 70-400 Immunoglobulin G October 30, 2014 11:42am 1088.38 MG/DL N 700-1600 Immunoglobulin G Total June 01, 2014 10:00am 1070 mg/dL - Reference Range:767 - 1590 Test Performed by: [place] [address] Reel Worker: Amos Montero III, M.D. Immunoglobulin G1 June 01, 2014 10:00am 684 mg/dL - Reference Range :341 - 894 Test Performed by: [place] [address] Reel Worker: Amos Montero III, M.D. Immunoglobulin G2 June 01, 2014 10:00am 248 mg/dL - Reference Range :171 - 632 Immunoglobulin G3 June 01, 2014 10:00am 38.7 mg/dL - Reference Range:18.4 - 106.0 Test Performed by: [place] [address] Reel Worker: Amos Montero III, M.D. [place] [address] Warp Starter Winston Camacho MD Reference Range: 18.4 - 106.0 Test Performed by: [place] [address] Reel Worker: Amos Montero III, M.D. --- 06/03/14 0940 --- [id number] previously reported as: 38.7 mg/dL Reference Range: 18.4 - 106.0 Test Performed by: [place] [address] Reel Worker: Amos Montero III, M.D. [place] [address] War[employer] Starter Winston Camacho MD Immunoglobulin G4 June 01, 2014 10:00am 8.5 mg/dL - Reference Range :2.4 - 121.0 Test Performed by: [place] [address] Reel Worker: Amos Montero III, M.D. [place] [address] [employer] Starter Winston Camacho MD Immunoglobulin M October 30, 2014 11:42am < 25.00 MG/DL L 40-230 Influenza Type A Antigen April 10, 2014 8:30pm Negative - Negative for Flu A protein antigen. Assay sensitivity is90%. Influenza Type B Antigen April 10, 2014 8:30pm Negative - Negative for Flu B protein antigen. Assay sensitivity is90%. Ionized Calcium (Measured) August 31, 2014 9:38am 1.17 MMOL/L N 1.12- 1.32 Iron Level April 11, 2014 8:00pm 25 UG/DL L 37-170 COMMENT with next troponin draw. LD 1 April 13, 2014 8:10am 18.8 - Reference Range 17.5% - 28.3% LD 2 April 13, 2014 8:10am 34.0 - Reference Range 30.4% - 36.4% LD 3 April 13, 2014 8:10am 28.5 - Reference Range 19.2% - 24.8% LD April 13, 2014 8:10am 13.3 - Reference Range 9.6% - 15.6% LD April 13, 2014 8:10am 5.4 - Reference Range 5.5% - 12.7%.Testing performed at [place], [place] Lactate Dehydrogenase October 30, 2014 11:42am 918 U/L H 313-618 Large Platelets June 08, 2014 8:50am Few - Lipase October 27, 2014 2:30pm 204 U/L N 23-300 Lymphocytes # (Auto) October 30, 2014 11:42am 2.5 T/MM3 N 1-4.8 Lymphocytes # (Manual) July 06, 2014 10:38am 1.9 T/MM3 N 1-4.8 Lymphocytes % (Manual) July 06, 2014 10:38am 16.0 % L 23-45 Lymphocytes (%) (Auto) October 30, 2014 11:42am 24.5 % N 23-45 Macrocytosis April 18, 2014 8:15am 1+ - Magnesium Level October 30, 2014 11:42am 1.7 MG/DL N 1.6-2.3 Mean Corpuscular Hemoglobin October 30, 2014 11:42am 31.9 UUG N 26-34 Mean Corpuscular Hemoglobin Concent October 30, 2014 11:42am 30.9 GM/DL L 31-37 Mean Corpuscular Volume October 30, 2014 11:42am 103.1 UM3 H 80-100 Mean Platelet Volume October 30, 2014 11:42am 12.1 UM3 N 9.4-12.4 Metamyelocytes # April 29, 2014 4:19am 0.2 T/MM3 - Metamyelocytes % April 29, 2014 4:19am 1.0 % H 0-0 Methylmalonic Acid April 11, 2014 5:59am 0.15 nmol/mL - Test Performed by:[place] [address] Reel Worker: Amos Montero III, M.D. Methylmalonic Acid, Serum performed at [facility], [address] [place] [address] Warp Starter Winston Camacho MD Microcytosis July 06, 2014 10:38am 1+ - Monocytes # (Auto) October 30, 2014 11:42am 1.0 T/MM3 H 0-0.8 Monocytes # (Manual) July 06, 2014 10:38am 0.4 T/MM3 N 0-0.8 Monocytes % (Manual) July 06, 2014 10:38am 3.0 % N 0-9.0 Monocytes (%) (Auto) October 30, 2014 11:42am 9.6 % H 0-9.0 Mycoplasma pneumoniae IgG Antibody April 10, 2014 4:15pm 1.73 H - Mycoplasma IGG Interpretation:.<0.91 No detectable antibody .0.91-1.09 Equivocal-Suggest testing on a new specimen. .>1.09 Positive-Shows immunologic exposure to M. pneumoniae. Mycoplasma pneumoniae IgM Antibody April 10, 2014 4:15pm 2.04 H - Mycoplasma IGM Interpretation:.<0.91 No detectable antibody .0.91-1.09 Equivocal-Suggest testing on a new specimen. .>1.09 Positive-Shows active or recent infection with M. pneumoniae. Mycoplasma Antibodies performed at [facility], [address] [facility] [place] [address] Warp Starter Leonidas Camacho MD Myelocytes # April 16, 2014 5:25am 0.2 T/MM3 - Myelocytes % April 16, 2014 5:25am 1.0 % H 0-0 Neutrophils # (Auto) October 30, 2014 11:42am 6.1 T/MM3 N 1.8-7.7 Neutrophils # (Manual) July 06, 2014 10:38am 7.9 T/MM3 H 1.8-7.7 Neutrophils % (Manual) July 06, 2014 10:38am 66.0 % N 33-66 Neutrophils (%) (Auto) October 30, 2014 11:42am 59.4 % N 33-66 Nucleated Red Blood Cells May 04, 2014 9:05am 2 - Ovalocytes April 17, 2014 5:15am 1+ - Parathyroid Hormone (Intact) August 31, 2014 9:38am 84.7 PG/ML H 7.5- 53.5 Percent Iron Saturation April 11, 2014 8:00pm 8 % L 9-55 COMMENT with next troponin draw. Percent Reticulocyte Count October 30, 2014 11:42am 1.7 % N 0.6-1.7 Phosphorus Level October 30, 2014 11:42am 3.3 MG/DL N 2.5-4.5 Platelet Count October 30, 2014 11:42am 205 T/MM3 N 130-400 Poikilocytosis June 08, 2014 8:50am 1+ - Potassium Level October 30, 2014 11:42am 3.8 MEQ/L N 3.6-5 Prothromb Time International Ratio June 25, 2014 10:55am 1.15 H 0.81- 1.09 THERAPUTIC RANGE=2.00-3.00 FOR ANTI-THROMBOSIS THERAPUTIC RANGE=2.50- 3.50 FOR IMPLANTED VALVE RDW Standard Deviation October 30, 2014 11:42am 53.4 FL H 36.9-50.2 Red Blood Count October 30, 2014 11:42am 3.89 M/MM3 L 4.00-5.20 Reference Lab Test Name April 13, 2014 8:10am Sent out - Reticulocyte Hgb Content (CHr) October 30, 2014 11:42am 37.2 PG H 30.8- 36.6 Schistocytes May 04, 2014 9:05am 1+ - Sodium Level October 30, 2014 11:42am 145 MEQ/L H 134-144 Stomatocytes April 27, 2014 7:35pm 2+ - Stool Occult Blood May 02, 2014 10:30am Negative - Has specimen been collected/obtained? YCOMMENT 2 OF 3 Target Cells June 22, 2014 10:35am 1+ - Thyroid Stimulating Hormone (TSH) April 10, 2014 12:46pm 1.25 MIU/L N 0.47-4.68 COMMENT add to blood already drawn in lab. Total Bilirubin October 30, 2014 11:42am 0.50 MG/DL N 0.20-1.30 Total Creatine Kinase April 28, 2014 10:45pm < 20 U/L L 30-135 Total Iron Binding Capacity April 11, 2014 8:00pm 297 UG/DL N 261-497 COMMENT with next troponin draw. Total Protein October 30, 2014 11:42am 7.7 G/DL N 6.3-8.2 Troponin I June 25, 2014 10:55am 0.014 ng/ml N 0-0.12 Unconjugated Bilirubin April 28, 2014 7:55pm 0.40 MG/DL N 0.00-1.10 COMMENT TO BE TAKEN WITH NEXT BLOOD DRAW Uric Acid August 31, 2014 8:38am 3.6 MG/DL N 2.5-7.5 Urine Albumin (%) April 13, 2014 9:15pm 72.1 % - Has specimen been collected/obtained? YCOMMENT 24 hour urine Urine Vlnxa-1-Mxrhgzwiu (%) April 13, 2014 9:15pm 6.8 % - Has specimen been collected/obtained? YCOMMENT 24 hour urine Urine Szejb-6-Mkyiljfxl (%) April 13, 2014 9:15pm 8.9 % - Has specimen been collected/obtained? YCOMMENT 24 hour urine Urine Bacteria October 27, 2014 2:30pm 1+ H - Urine Bilirubin October 27, 2014 2:30pm Negative - Urine Blood October 27, 2014 2:30pm Trace-intact H - Urine Collection Duration April 13, 2014 9:15pm 24 Hr - Protein electrophoresis, Urine performed at [facility], [address] [place] [address] Warp Starter Leonidas Camacho MD Urine Collection Time April 13, 2014 9:15pm 24 HRS - Has specimen been collected/obtained? YCOMMENT 24-hour urine Urine Collection Type October 27, 2014 2:30pm Cleancatch-midstream - Urine Color October 27, 2014 2:30pm Yellow - Urine Comment April 13, 2014 9:15pm see below - Mild non-selective proteinuria. Urine Creatinine April 13, 2014 9:15pm 53.9 MG/DL - Has specimen been collected/obtained? YCOMMENT 24-hour urine Urine Creatinine 24 Hour April 13, 2014 9:15pm 539 MG/24HR L 800-2800 Has specimen been collected/obtained? YCOMMENT 24-hour urine Urine Culture Indicated October 27, 2014 2:30pm Cult not indicated - Urine Eosinophils April 18, 2014 3:53pm 0 % - Eosinophil Count, Urine performed at [facility], [address] [place] [address] Warp Starter Leonidas Camacho MD Urine Gamma Globulin (%) April 13, 2014 9:15pm 6.6 % - Has specimen been collected/obtained? YCOMMENT 24 hour urine Urine Glucose (UA) October 27, 2014 2:30pm Negative - Urine Hemosiderin April 27, 2014 9:20pm Negative - Test Performed by: [facility] [address] Reel Worker: Amos Montero III, M.D. Hemosiderin, Urine performed at [facility], [address] [place] [address] Warp Starter Winston Camacho MD Urine Hyaline Casts June 19, 2014 6:58pm 3-5 /LPF - Has specimen been collected/obtained? Y Urine Ketones October 27, 2014 2:30pm Negative - Urine Leukocyte Esterase October 27, 2014 2:30pm Negative - Urine Nitrite October 27, 2014 2:30pm Negative - Urine Protein October 27, 2014 2:30pm 2+ H - Urine RBC October 27, 2014 2:30pm 0-1 /HPF - Urine Random Creatinine April 13, 2014 4:33pm 89.7 MG/DL - Has specimen been collected/obtained? Y Urine Random Urea Nitrogen April 13, 2014 4:33pm 523.0 MG/DL - Has specimen been collected/obtained? Y Urine Specific [place] October 27, 2014 2:30pm 1.025 - Urine Squamous Epithelial Cells October 27, 2014 2:30pm None seen - Urine Total Protein April 13, 2014 9:15pm 32 mg/dL H - Protein electrophoresis, Urine performed at [facility], [facility] [place] [address] Warp Starter Leonidas Camacho MD Urine Total Protein 24 Hour April 13, 2014 9:15pm 390 MG/24HR H 42-225 Has specimen been collected/obtained? YCOMMENT 24 HOUR URINE Urine Total Protein Timed April 13, 2014 9:15pm 320.0 mg/24hrs H - Value may increase up to 300mg/24hour following exercise.Reported as mg/hrs collected, reference range is based on 24 hr collection. Urine Total Volume April 13, 2014 9:15pm 1000 mL - Has specimen been collected/obtained? YCOMMENT 24 hour urine Urine Transitional Epithelial Cells April 14, 2014 7:55am 1-3 /HPF - Has specimen been collected/obtained? Y Urine Turbidity October 27, 2014 2:30pm Clear - Urine Urobilinogen October 27, 2014 2:30pm 0.2 EU/DL - Urine WBC October 27, 2014 2:30pm 0-1 /HPF - Urine pH October 27, 2014 2:30pm 5.5 - Vitamin B12 Level April 11, 2014 5:59am 378 PG/ML N 239-931 White Blood Count October 30, 2014 11:42am 10.2 T/MM3 N 4.5-11.0 Chemistry Specimen Hemolysis October 30, 2014 11:42am < 15 0-25 0-25 : No Hemolysis.26-70: Slight Hemolysis - can falsely elevate K and Urine Protein. 71-285: Moderate Hemolysis - can falsely elevate K, Troponin I, CA 19-9, PTH, CSF GLucose, and Urine Protein, and can falsely decrease Phenytoin. 286-999: Gross Hemolysis - can falsely elevate K, Troponin I, CA 19-9, PTH, CSF Glucose, and Urine Protine, and can falsely decrease Phenytoin. Recommend specimen recollection. Hiyc-0-Sxxwshio October 30, 2014 11:42am 0.5 g/dL - Tyju-6-Wrbduabt (%) October 30, 2014 11:42am 6.8 % - Lufp-5-Igtpvhyq October 30, 2014 11:42am 0.3 g/dL - Ejjw-9-Orxbkljz (%) October 30, 2014 11:42am 4.5 % - Serum Monoclonal Protein May 11, 2014 8:50am 0.2 g/dL PH - ORDERED BY DR FORD Albumin (PEP) October 30, 2014 11:42am 3.7 g/dL - Protein Electrophoresis Comment October 30, 2014 11:42am see below - Normal electrophoretic pattern. No monoclonal peaks orrestricted areas observed by immunofixation. 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 Kris Gonzalez M.D. 13:43 04/12/2014 * Findings: Monoclonal B-Cell Population: [place] description and % total cells: CD45 vs SSC; CD19 vs SSC; about 2% of the total cells. Phenotype: The monoclonal B-cells are brightly CD45+; moderately CD19+/CD20+/FMC7+/Surface Lambda+; trace dim CD11c+/CD38+; negative for CD10, CD5, CD103, CD25 and Surface [place]. These B-cells comprise about 9% of the gated lymphocytes. * Lymphocytes: [place] description and % total cells: CD45 vs SSC; about 19% of the total cells (T, B and NK combined). Phenotype: The T-lymphocytes are brightly CD45+; moderately CD3+, CD4+, CD8+ (CD4:CD8 ratio=3.9), CD2+, CD5+ and CD7+; moderate CD38+. A sub-population of large granular T-cells are present that are CD3+/CD16+/CD57+ and comprise about 21% of the gated lymphocytes. Overall, the T-cells comprise about 72% of the gated lymphocytes. The natural killer cells (CD3-/CD16- and/or CD3-/CD56+) comprise about 18% of the gated lymphocytes. * Additonal Antibodies: CD38 Platelet Evaluation (Diff) April 18, 2014 8:15am Few - Turbidity October 30, 2014 11:42am < 20 0-20 Reactive Lymphocytes % July 06, 2014 10:38am 1.0 % H 0-0 Glomerular Filtration Rate Calc October 30, 2014 11:42am 53 - Serum Total Protein October 30, 2014 11:42am 7.0 g/dL - Immunoelectrophoresis, no IMQ performed at [facility], [address] [place] [address] Warp Starter Leonidas Camacho MD Free [place]/Lambda Light Chain Ratio October 30, 2014 11:42am 0.6639 - Reference Range:0.2600-1.65 Test Performed by: [place] [address] Reel Worker: Lj Elias M.D. Immunoglobulin Free Light [place]ains, [place] [address] Warp Starter Winston Camacho MD Reactive Lymphocytes # July 06, 2014 10:38am 0.1 T/MM3 H 0-0 Immature Granulocyte # (Auto) October 30, 2014 11:42am 0.02 T/MM3 N 0.00 -0.03 Immature Granulocyte % (Auto) October 30, 2014 11:42am 0.2 % N 0.0-0.5 Urine Total [place]/Lambda Ratio April 13, 2014 9:15pm See below - Ratio not calculated because the Total [place] and TotalLambda values are less than the reportable range. Test Performed by: [place] [address] Reel Worker: Amos Montero III, M.D. Immunoglobulin Light Chains, [place] [address] Warp Starter Winston Camacho MD Ur Total [place] Light Chains 24 Hr April 13, 2014 9:15pm <0.9000 mg/dL - Test Performed by:[address] [place] [address] Reel Worker: Amos Montero III, M.D. Immunoglobulin Light Chains, [place] [address] Warp Starter Winston Camacho MD Test Performed by: [place] [address] Reel Worker: Amos Montero III, M.D. --- 04/17/14 0823 --- UIFLCKA previously reported as: <0.9000 mg/dL Test Performed by: [place] [address] Reel Worker: Amos Montero III, M.D. Immunoglobulin Light Chains, [place] [address] Warp Starter Wniston Camacho MD Ur Total [place] Light Chains 24 Hr April 13, 2014 9:15pm <0.7000 mg/dL - Has specimen been collected/obtained? YCOMMENT 24 HOUR URINE COMMENT 24-hour urine Venous Blood Lactate June 25, 2014 11:18am 1.1 MMOL/L N 0.6-2.2 Procalcitonin June 19, 2014 6:35pm 0.10 NG/ML - PCT </=0.5 ng/mL - sepsis not likely;PCT >0.5 and </=2 ng/mL - sepsis possible; PCT >2 ng/mL - sepsis likely; PCT >/=10 ng/mL - systemic inflammatory response - sepsis or septic shock highly indicated. Icterus Index October 30, 2014 11:42am < 2 0-7 UA-Aci-X-Type Natriuretic Peptide June 25, 2014 10:55am 1900 PG/ML H 0 -175 Rule in cut points: <50 years old=450; 50-75 years old=900; >75 years old=1800; When utilizing ProBNP rule-in cut points, adjustment for impaired renal function is typically not required. Free [place]ains October 30, 2014 11:42am 0.7900 mg/dL - Reference Range:0.3300-1.94 Free [place] Light Chains October 30, 2014 11:42am 1.19 mg/dL - Reference Range:0.5700-2.63 Plasma Oxyhemoglobin April 13, 2014 8:10am 8.6 mg/dL - Both total and oxyhemoglobin values are reported. If thereis a discrepancy between the values , the oxyhemoglobin measurement is the least affected by potential interfering substances such as bilirubin or medications. Additionally, false elevations in plasma hemoglobin levels are commonly seen due solely to artifactual in-vitro effects such as: delayed separation of plasma from red blood cells (greater than 2 hours), traumatic draws/incorrect tube draw sequence, or any post draw condition which causes hemolysis in the tube (i.e. increased temperature, excessive vortexing, etc.). Positive results should be interpreted as a component of the complete clinical context. Test Performed by: [place] [id number] Reel Worker: Amos Montero III, M.D. Plasma Hemoglobin performed at [facility], [address] [place] [address] Warp Starter Winston Camacho MD Urine Fgvt-2-Brdleuuh (%) April 13, 2014 9:15pm 5.6 % - Has specimen been collected/obtained? YCOMMENT 24 hour urine Blood Culture Blood June 25, 2014 11:18am NO GROWTH AFTER 5 DAYS Urine Culture Urine, Clean Catch-Midstream April 10, 2014 3:40pm Legionella Urinary Antigen Urine April 10, 2014 3:40pm Procedures Procedure Status Date Provider(s) ROUTINE VENIPUNCTURE completed 10/27/14 COMPREHEN METABOLIC PANEL completed 10/27/14 URINALYSIS AUTO W/SCOPE completed 10/27/14 ASSAY OF AMYLASE completed 10/27/14 ASSAY OF LIPASE completed 10/27/14 COMPLETE CBC W/AUTO DIFF WBC completed 10/27/14 RBC SED RATE NONAUTOMATED completed 10/27/14 C-REACTIVE PROTEIN completed 10/27/14 Encounters Encounter Location Date/Time Discharged [facility] 10/30/14 11:50am Registered Clinic [facility] 10/27/14 2:19pm Discharged [facility] 05/18/14 8:28am
--- OUTSIDE RECORDS SUMMARY | 2017-02-26 16:23 | XMS REPORT | Summary of Care ---
Author Author Chapito Muro Organization Unknown Address [address] [phone] Phone Unavailable Care Team Providers Care Exterior Interior Specialist Name Role Phone Ferdinand Hammonds, Cece Unavailable [...] I po qd * Start 07-Jun-2009 Active Oxygen 2 LPM 24 HOURS A DAY MAY TITRATE UP FOR DYSPNEA * Refills: 0 * Start Active Brovana 15 MCG/2ML Inhalation Nebulization Solution USE VIA NEBULIZER TWO TIMES DAILY (dx:J44.9) * Quantity: 120 Refills: 11 Stefan Streeter M.D. * Start 23-Nov-2012 Active ROPINIRole HCl - 2 MG Oral Tablet TAKE 1 TABLET AT BEDTIME. * Quantity: 90 Refills: 3 Chapito Muro * Start 31-Aug-2009 Active Adult Aspirin EC Low Strength 81 [...] Stefan Streeter M.D. * Start 06-Dec-2012 Active Potassium Chloride Summer ER 10 MEQ [...] Immunization Name Dates Details Influenza Lot #: [id number] on: 02-Aug-2010 Influenza Lot #: [id number] on: 24-Aug-2012 Pneumo (Pneumovax) Lot #: [id number] on: 24-Aug-2012 Fluzone High-Dose 0.5 ML Intramuscular Suspension Prefilled Syringe Lot #: [id number] on: 25-Jul-2015 Tdap (Adacel) Lot #: [id number] on: 05-Nov-2015 Fluzone High-Dose 0.5 ML Intramuscular Suspension Prefilled Syringe Lot #: [id number] on: 02-Sep-2016 Family History Name Dates Details [...] threshold) Range: >60 EST GFR, NON-AFR INDONESIAN 29 ml/min (Below low threshold) Range: >60 [...] (13.3) (09/08/2016 11:23 AM) to (11.3) by [facility].---- - RBC 3.58 mil/uL (Below low threshold) [...] threshold) Range: >60 EST GFR, NON-AFR INDONESIAN 32 ml/min (Below low threshold) Range: >60 [...] Present HJ BODIES Present 09-Sep-2016 12:58 Haptoglobin [id number] Comments: SIGNED ORDER FILED IN OFFICETesting performed at: [DA] [facility], [address] [place] [address] [address], [place], [address], , Adjunct Physics Instructor: KEILA Carranza MD HAPTOGLOBIN 189 mg/dL Range: 34-200 15:56 VIVIAN PE and FLC Serum [id number] Comments: SIGNED ORDER FILED IN OFFICETesting performed at: [DA] [facility], [address] [place] [address], [place], [address], , Adjunct Physics Instructor: KEILA Carranza MD IMMUNOGLOBULIN G, QN, SERUM 285 mg/dL (Below low threshold) Range: 700- 1600 IMMUNOGLOBULIN A, QN, SERUM 26 mg/dL (Below low threshold) Range: 64-422 IMMUNOGLOBULIN M, QN, SERUM <5 mg/dL (Below low threshold) Range: 26-217 Comments: Verified by repeat analysis----- PROTEIN, TOTAL, SERUM 5.9 g/dL (Below low threshold) Range: 6.0-8.5 ALBUMIN 3.4 g/dL Range: 2.9-4.4 VGRKT-2-FYDZYXGI 0.4 g/dL Range: 0.0-0.4 SADEJ-4-WBFRRBQK 0.9 g/dL Range: 0.4-1.0 BETA GLOBULIN 0.9 g/dL Range: 0.7-1.3 GAMMA GLOBULIN 0.3 g/dL (Below low threshold) Range: 0.4-1.8 M-SPIKE Not Observed g/dL Range: Not Observed GLOBULIN, TOTAL 2.5 g/dL Range: 2.2-3.9 A/G RATIO 1.4 Range: 0.7-1.7 IMMUNOFIXATION RESULT, SERUM Comment Comments: An apparent normal immunofixation pattern.----- PLEASE NOTE: Comment Comments: Protein electrophoresis scan will follow via computer,mail, or day care home provider delivery.----- FREE KAPPA LT CHAINS,S 12.85 mg/L [...] /HPF Range: 0-10 25-Sep-2016 16:19 URINE CULTURE [id number] Comments: L4 Mobile performed at: [facility], [address] [place] [address], [phone], Adjunct Physics Instructor: Gigi Alberto D.O., MPHQuest Collection Date/Time: [id number] Results Received Date/Time: [id number] Reported Date/Time: FASTING:NOQuest performed at: [facility], [address] [place] [address], [phone], Adjunct Physics Instructor: Gigi Alberto D.O., MPHQuest Collection Date/Time: [id number] Results Received Date/Time: [id number] Reported Date/Time: FASTING:NO CULTURE, URINE, ROUTINE SEE NOTE (Abnormal) Comments: CULTURE, URINE, ROUTINE MICRO NUMBER: [id number] TEST STATUS: FINAL SPECIMEN SOURCE : URINE [...] not documented On 16-Sep-2016 13:30 Appointment; Ry Maruer M.D. Encounter Diagnosis: Problem not documented On [...]
--- OUTSIDE RECORDS SUMMARY | 2017-02-26 16:24 | XMS REPORT | Continuity of Care Document ---
Author Author [facility] Organization [facility] Address Unknown Phone Unavailable Support Name Relationship Address Phone RENÉ BRASHER MD Caregiver [address] [place] [phone] ROLAND CABRAL DO Caregiver [facility] [address] [place], [place] [id number] ELISABET TERAN Next Of Kin [address] [place], [place] [id number] Insurance Providers Payer Name Policy Number Subscriber Name Relationship Medicare [id number] Genesis Duque 18 Self [facility] Plan [id number] Genesis Duque 18 Self Advance Directives Directive [...] History Social History Problem Response Recorded Date/Time Smoking Status Never smoker 04/27/2014 6:52pm Hx Alcohol Use No 06/25/2014 10:50am Has the pt used tobacco in the last 12 months No 04/27/2014 6:52pm Hospital Discharge Instructions Instructions: Care Instructions: Reason for Hospitalization: Severe Anemia Discharge Diet: As per pre-hospitalization Discharge Activity: As per pre-hospitalization Follow Up Appointments: Dr. Hurst - April at 8:[address] Unruly Burns April at 1:45 pm Patient Instructions: Lab - CBC and CMP drawn at [facility] prior appointment with Dr Cabral. Notify Physician If: Fatigue, weakness, dark stools, gastrointestinal bleeding occur. Condition at time of discharge: Good Care Plan Discharge Patient: Goal: Understand discharge plan Patient Instructions: see patient instructions Condition at time of discharge: Good Good Notify Physician If: Call your Surgeon if you have: 1.Chest pain, difficulty breathing, fever>100.5 degrees, chills, heart rate >100, confusion, or persistent nausea/vomitting. 2.Severe pain, swelling, redness, or warmth in either of your legs. 3.During office hours, call [phone] 4. After hours, please call [facility] at [phone], and have the deskidding machine operator page your Surgeon IN THE EVENT OF AN EMERGENCY, seek medical care at the nearest Emergency Room Condition at time of discharge: Good 3.During office hours, call [phone] 4. After hours, please call [facility] at [phone], and have the deskidding machine operator page your Surgeon IN THE EVENT OF AN EMERGENCY, seek medical care at the nearest Emergency Room Condition at time of discharge: Good Plan of Care Discharge Date 05/03/14 6:17pm Instructions/Education Provided [facility] Congestive Heart Failure Anemia of Chronic Disease Prescriptions See Medications Section Functional Status Query Response Date Recorded Physical [...] Influenza Vaccination Y fall Historical Vital Signs Acute Vital Signs Vital Response Date/Time Temperature (Fahrenheit) 98.1 deg F (96.8 - 99.1) Temperature (Calculated Celsius) 36.12405 degrees C (36.0 - 37.3) Pulse Rate (adult) 73 bpm (60 - 100) Respiratory Rate 24 breaths/min (10 - 20) O2 Sat by Pulse Oximetry 96 % (90 - 100) Oxygen Flow Rate 2 L/min Blood Pressure 115/58 mm Hg Height 5 ft 1 in Weight 111 lb Body Mass Index 21.0 kg/m^2 Results Test Source Date Result Interp. Ref. Range Comments Absolute Reticulocyte Count June 15, 2014 10:15am 0.1014 T/MM3 H 0.0300-0.0900 Acanthocytes June 22, 2014 10:35am 1+ - Activated Partial Thromboplast Time June 25, 2014 10:55am 40.4 SEC H 24-36 Alanine Aminotransferase (ALT/SGPT) June 25, 2014 10:55am 26 U/L N 9- 52 Albumin June 25, 2014 10:55am 4.0 G/DL N 3.5-5.0 Albumin/Globulin Ratio June 25, 2014 10:55am 1.4 RATIO N 1.1-2.2 Alkaline Phosphatase June 25, 2014 10:55am 86 U/L N 38-126 Bepma-0-Ebprnnvgm May 11, 2014 8:50am 0.6 g/dL H - ORDERED BY DR FORD Nasuj-1-Nqwzjnffg (%) May 11, 2014 8:50am 10.4 % H - ORDERED BY DR FORD Bumtx-5-Ctaitmwtp May 11, 2014 8:50am 0.9 g/dL - ORDERED BY DR FORD Bwusz-9-Dsrbatckf (%) May 11, 2014 8:50am 16.0 % - ORDERED BY DR FORD Anion Gap June 25, 2014 10:55am 11 MEQ/L N 5-15 Anisocytosis June 22, 2014 10:35am 2+ - Aspartate Amino Transf (AST/SGOT) June 25, 2014 10:55am 33 U/L N 14- 36 BUN/Creatinine Ratio June 25, 2014 10:55am 24 RATIO N 6-26 Band Neutrophils # June 22, 2014 10:35am 1.3 T/MM3 - Band Neutrophils % June 22, 2014 10:35am 7.0 % H 0-6 Basophils # (Auto) June 25, 2014 10:55am 0.1 T/MM3 N 0-0.2 Basophils # (Manual) April 28, 2014 10:43am 0.2 T/MM3 N 0-0.2 Basophils % (Manual) April 28, 2014 10:43am 1.0 % N 0-2 Basophils (%) (Auto) June 25, 2014 10:55am 0.5 % N 0-2 Blood Smear Pathologist Review May 01, 2014 4:20am Sent for review - Blood Urea Nitrogen June 25, 2014 10:55am 22.0 MG/DL H 7-17 C-Reactive Protein April 10, 2014 1:32pm 70.1 MG/L H 0-9 Calcium Level June 25, 2014 10:55am 10.5 MG/DL H 8.4-10.2 Calculated Osmolality June 25, 2014 10:55am 275 MOSM/KG N 261-280 Carbon Dioxide Level June 25, 2014 10:55am 33 MEQ/L H 22-30 Chloride Level June 25, 2014 10:55am 97 MEQ/L L 98-107 Cold Agglutinin Titer April 28, 2014 10:43am Negative - Conjugated Bilirubin April 28, 2014 7:55pm 0.00 MG/DL N 0.00-0.30 COMMENT TO BE TAKEN WITH NEXT BLOOD DRAW Corrected White Blood Count April 30, 2014 4:35am 18.2 T/MM3 H 4.5-11.0 Creatine Kinase MB April 28, 2014 10:45pm 0.7 NG/ML N 0-3.4 Creatinine June 25, 2014 10:55am 0.9 MG/DL N 0.7-1.2 D-Dimer June 25, 2014 10:55am < 150 NG/ML 0-224 <224 NG/ML= PRESUMPTIVE NEGATIVE FOR PE OR DVT>224 NG/ML=ADDITIONAL EVALUATION FOR PE OR DVT RECOMMENDED Eosinophils # (Auto) June 25, 2014 10:55am 0.5 T/MM3 N 0-0.5 Eosinophils # (Manual) June 22, 2014 10:35am 1.4 T/MM3 H 0-0.5 Eosinophils % (Manual) June 22, 2014 10:35am 8.0 % H 0-4 Eosinophils (%) (Auto) June 25, 2014 10:55am 3.2 % N 0-4 Erythrocyte Sedimentation Rate April 10, 2014 1:32pm > 100 MM/HR H 0-20 Erythropoietin April 11, 2014 5:59am 17.9 mIU/mL - Reference Range: 2.6 - 18.5 Test Performed by: [facility] [address] [place] [address] Basketball Commentator: Amos Montero III, M.D. Erythropoietin performed at [facility], [address] [place] [address] Academic Affairs Vice President Winston Camacho MD Ferritin April 11, 2014 8:00pm 464 NG/ML H 11-264 COMMENT with next troponin draw. Fibrin Degradation Products May 01, 2014 4:20am >40ug/ml UG/ML H - Ordering r/o VTE No Fibrinogen May 01, 2014 4:20am 541 MG/DL H 135-357 Ordering r/o VTE No Folate April 11, 2014 5:59am > 20.0 NG/ML H 2.76-20 NORMAL ADULT RANGE: 2.76->20 ng/mL Gamma Globulins May 11, 2014 8:50am 0.5 g/dL - ORDERED BY DR FORD Gamma Globulins (%) May 11, 2014 8:50am 8.4 % - Immunoelectrophoresis, no IMQ performed at [facility], [address] [place] [address] Academic Affairs Vice President Leonidas Camacho MD Gamma Glutamyl Transpeptidase April 28, 2014 10:43am 120 U/L H 8-78 Globulin June 25, 2014 10:55am 2.8 G/DL N 2.4-3.6 Glucose Level June 25, 2014 10:55am 114 MG/DL H 65-110 Haptoglobin May 11, 2014 8:50am 268 mg/dL H - Haptoglobin performed at [facility], [address] [place], [place] [address]Yirilyz Director Leonidas Camacho MD Hematocrit June 25, 2014 10:55am 33.3 % L 36-46 Hemoglobin June 25, 2014 10:55am 10.3 GM/DL L 12-16 Hemoglobin A1c April 11, 2014 5:59am [...] 5:59am 5.6 umol/L - Homocysteine performed at [facility], [address] [place] [id number] Director MD [facility] April 27, 2014 7:35pm 1+ - Hypochromasia June 08, 2014 8:50am 1+ - Immature Reticulocyte Fraction June 15, 2014 10:15am 10.2 % N 3.3- 14.5 Immunoglobulin A May 11, 2014 8:50am < 40.00 MG/DL L 70-[address] FORD Immunoglobulin G May 11, 2014 8:50am 465.73 MG/DL L 700-[address] FORD Immunoglobulin G Total June 01, 2014 10:00am 1070 mg/dL - Reference Range:767 - 1590 Test Performed by: [place] [address] Basketball Commentator: Amos Montero III, M.D. Immunoglobulin G1 June 01, 2014 10:00am 684 mg/dL - Reference Range :341 - 894 Test Performed by: [place] [address] Basketball Commentator: Amos Montero III, M.D. Immunoglobulin G2 June 01, 2014 10:00am 248 mg/dL - Reference Range :171 - 632 Immunoglobulin G3 June 01, 2014 10:00am 38.7 mg/dL - Reference Range:18.4 - 106.0 Test Performed by: [place] [address] Basketball Commentator: Amos Montero III, M.D. [place] [address] Academic Affairs Vice President Winston Camacho MD Reference Range: 18.4 - 106.0 Test Performed by: [place] [address] Basketball Commentator: Amos Montero III, M.D. --- 06/03/14 0940 --- IGGSUB3 previously reported as: 38.7 mg/dL Reference Range: 18.4 - 106.0 Test Performed by: [place] [address] Basketball Commentator: Amos Montero III, M.D. IgG Subclasses performed at [facility], [address] [place] [address] Academic Affairs Vice President Winston Camacho MD Immunoglobulin G4 June 01, 2014 10:00am 8.5 mg/dL - Reference Range :2.4 - 121.0 Test Performed by: [facility] [address] [place] [address] Basketball Commentator: Amos Montero III, M.D. IgG Subclasses performed at [facility], [address] [place] [address] Academic Affairs Vice President Winston Camacho MD Immunoglobulin M May 11, 2014 8:50am 96.26 MG/DL N 40-[address] FORD Influenza Type A Antigen April 10, 2014 8:30pm Negative - Negative for Flu A protein antigen. Assay sensitivity is90%. Influenza Type B Antigen April 10, 2014 8:30pm Negative - Negative for Flu B protein antigen. Assay sensitivity is90%. Ionized Calcium (Measured) April 11, 2014 12:52pm 1.19 MMOL/L N 1.12- 1.32 COMMENT add to blood in lab. check with next troponin draw if that 's not possible. COMMENT add to blood in lab. add to next troponin draw if unable to do so. Iron Level April 11, 2014 8:00pm 25 [...] Reference Range 5.5% - 12.7%.Testing performed at [place], [place] Lactate Dehydrogenase June 22, 2014 10:35am 1123 U/L H 313-618 Large Platelets June 08, 2014 8:50am Few - Lymphocytes # (Auto) June 25, 2014 10:55am 1.7 T/MM3 N 1-4.8 Lymphocytes # (Manual) June 22, 2014 10:35am 3.0 T/MM3 N 1-4.8 Lymphocytes % (Manual) June 22, 2014 10:35am 17.0 % L 23-45 Lymphocytes (%) (Auto) June 25, 2014 10:55am 11.9 % L 23-45 Macrocytosis April 18, 2014 8:15am 1+ - Magnesium Level May 04, 2014 9:05am 2.0 MG/DL N 1.6-2.3 Mean Corpuscular Hemoglobin June 25, 2014 10:55am 29.9 UUG N 26-34 Mean Corpuscular Hemoglobin Concent June 25, 2014 10:55am 30.9 GM/DL L 31-37 Mean Corpuscular Volume June 25, 2014 10:55am 96.8 UM3 N 80-100 Mean Platelet Volume June 25, 2014 10:55am 10.7 UM3 N 9.4-12.4 Metamyelocytes # April 29, 2014 4:19am 0.2 T/MM3 - Metamyelocytes % April 29, 2014 4:19am 1.0 % H 0-0 Methylmalonic Acid April 11, 2014 5:59am 0.15 nmol/mL - Test Performed by:[place] [address] Basketball Commentator: Amos Montero III, M.D. Methylmalonic Acid, Serum performed at [facility], [address] [place] [address] Academic Affairs Vice President Winston Camacho MD Monocytes # (Auto) June 25, 2014 10:55am 1.1 T/MM3 H 0-0.8 Monocytes # (Manual) June 22, 2014 10:35am 0.4 T/MM3 N 0-0.8 Monocytes % (Manual) June 22, 2014 10:35am 2.0 % N 0-9.0 Monocytes (%) (Auto) June 25, 2014 10:55am 7.5 % N 0-9.0 Mycoplasma pneumoniae IgG Antibody April 10, [...] with M. pneumoniae. Mycoplasma Antibodies performed at [facility], [address], [place] [address] Academic Affairs Vice President Leonidas Camacho MD Myelocytes # April 16, 2014 5:25am 0.2 T/MM3 - Myelocytes % April 16, 2014 5:25am 1.0 % H 0-0 Neutrophils # (Auto) June 25, 2014 10:55am 10.6 T/MM3 H 1.8-7.7 Neutrophils # (Manual) June 22, 2014 10:35am 11.8 T/MM3 H 1.8-7.7 Neutrophils % (Manual) June 22, 2014 10:35am 66.0 % N 33-66 Neutrophils (%) (Auto) June 25, 2014 10:55am 76.5 % H 33-66 Nucleated Red Blood Cells May 04, 2014 9:05am 2 - Ovalocytes April 17, 2014 5:15am 1+ - Percent Iron Saturation April 11, 2014 8:00pm 8 % L 9-55 COMMENT with next troponin draw. Percent Reticulocyte Count June 15, 2014 10:15am 3.2 % H 0.6-1.7 Phosphorus Level May 03, 2014 4:40am 5.1 MG/DL H 2.5-4.5 Platelet Count June 25, 2014 10:55am 338 T/MM3 N 130-400 Poikilocytosis June 08, 2014 8:50am 1+ - Potassium Level June 25, 2014 10:55am 3.8 MEQ/L N 3.6-5 Prothromb Time International Ratio June 25, 2014 10:55am 1.15 H 0.81- 1.09 THERAPUTIC RANGE=2.00-3.00 FOR ANTI-THROMBOSIS THERAPUTIC RANGE=2.50- 3.50 FOR IMPLANTED VALVE RDW Standard Deviation June 25, 2014 10:55am 55.5 FL H 36.9-50.2 Red Blood Count June 25, 2014 10:55am 3.44 M/MM3 L 4.00-5.20 Reference Lab Test Name April 13, 2014 8:10am Sent out - Reticulocyte Hgb Content (CHr) June 15, 2014 10:15am 25.2 PG L 30.8- 36.6 Schistocytes May 04, 2014 9:05am 1+ - Sodium Level June 25, 2014 10:55am 141 MEQ/L N 134-144 Stomatocytes April 27, 2014 7:35pm 2+ - Stool Occult Blood May 02, 2014 10:30am Negative - Has specimen been collected/obtained? YCOMMENT 2 OF 3 Target Cells June 22, 2014 10:35am 1+ - Thyroid Stimulating Hormone (TSH) April 10, 2014 12:46pm 1.25 MIU/L N 0.47-4.68 COMMENT add to blood already drawn in lab. Total Bilirubin June 25, 2014 10:55am 0.50 MG/DL N 0.20-1.30 Total Creatine Kinase April 28, 2014 10:45pm < 20 U/L L 30-135 Total Iron Binding Capacity April 11, 2014 8:00pm 297 UG/DL N 261-497 COMMENT with next troponin draw. Total Protein June 25, 2014 10:55am 6.8 G/DL N 6.3-8.2 Troponin I June 25, 2014 10:55am 0.014 ng/ml N 0-0.12 Unconjugated Bilirubin April 28, 2014 7:55pm 0.40 MG/DL N 0.00-1.10 COMMENT TO BE TAKEN WITH NEXT BLOOD DRAW Uric Acid June 15, 2014 10:15am 4.6 MG/DL N 2.5-7.5 Urine Albumin (%) April 13, 2014 9:15pm 72.1 % - Has specimen been collected/obtained? YCOMMENT 24 hour urine Urine Mayxr-9-Fpuojgyqe (%) April 13, 2014 9:15pm 6.8 % - Has specimen been collected/obtained? YCOMMENT 24 hour urine Urine Cciqo-9-Twyeqxmyp (%) April 13, 2014 9:15pm 8.9 % - Has specimen been collected/obtained? YCOMMENT 24 hour urine Urine Bacteria June 19, 2014 6:58pm Trace H - Has specimen been collected/obtained? Y Urine Bilirubin June 19, 2014 6:58pm Negative - Has specimen been collected/obtained? Y Urine Blood June 19, 2014 6:58pm Negative - Has specimen been collected/obtained? Y Urine Collection Duration April 13, 2014 9:15pm 24 Hr - Protein electrophoresis, Urine performed at [facility], [address] [place] [address] Academic Affairs Vice President Leonidas Camacho MD Urine Collection Time April 13, 2014 9:15pm 24 HRS - Has specimen been collected/obtained? YCOMMENT 24-hour urine Urine Collection Type June 19, 2014 6:58pm Cleancatch-midstream - Has specimen been collected/obtained? Y Urine Color June 19, 2014 6:58pm Yellow - Has specimen been collected/obtained? Y Urine Comment April 13, 2014 9:15pm see below - Mild non-selective proteinuria. Urine Creatinine April 13, 2014 9:15pm 53.9 MG/DL - Has specimen been collected/obtained? YCOMMENT 24-hour urine Urine Creatinine 24 Hour April 13, 2014 9:15pm 539 MG/24HR L 800-2800 Has specimen been collected/obtained? YCOMMENT 24-hour urine Urine Culture Indicated April 10, 2014 3:40pm Cult ordered & setup - Has specimen been collected/obtained? Y Urine Eosinophils April 18, 2014 3:53pm 0 % - Eosinophil Count, Urine performed at [facility], [address] [place] [address] Academic Affairs Vice President Leonidas Camacho MD Urine Gamma Globulin (%) April 13, 2014 9:15pm 6.6 % - Has specimen been collected/obtained? YCOMMENT 24 hour urine Urine Glucose (UA) June 19, 2014 6:58pm Negative - Has specimen been collected/obtained? Y Urine Hemosiderin April 27, 2014 9:20pm Negative - Test Performed by: [facility] [place] [address] Basketball Commentator: Amos Montero III, M.D. Hemosiderin, Urine performed at [facility], [address] [place] [address] Academic Affairs Vice President Winston Camacho MD Urine Hyaline Casts June 19, 2014 6:58pm 3-5 /LPF - Has specimen been collected/obtained? Y Urine Ketones June 19, 2014 6:58pm Negative - Has specimen been collected/obtained? Y Urine Leukocyte Esterase June 19, 2014 6:58pm Negative - Has specimen been collected/obtained? Y Urine Nitrite June 19, 2014 6:58pm Negative - Has specimen been collected/obtained? Y Urine Protein June 19, 2014 6:58pm 2+ H - Has specimen been collected /obtained? Y Urine RBC June 19, 2014 6:58pm Trace /HPF - Has specimen been collected/obtained? Y Urine Random Creatinine April 13, 2014 4:33pm 89.7 MG/DL - Has specimen been collected/obtained? Y Urine Random Urea Nitrogen April 13, 2014 4:33pm 523.0 MG/DL - Has specimen been collected/obtained? Y Urine Specific [place] June 19, 2014 6:58pm 1.020 - Has specimen been collected/obtained? Y Urine Squamous Epithelial Cells June 19, 2014 6:58pm 5-10 - Has specimen been collected/obtained? Y Urine Total Protein April 13, 2014 9:15pm 32 mg/dL H - Protein electrophoresis, Urine performed at [facility], [address] [place] [address] Academic Affairs Vice President Leonidas Camacho MD Urine Total Protein 24 [...] Has specimen been collected/obtained? Y Urine Turbidity June 19, 2014 6:58pm Clear - Has specimen been collected/obtained? Y Urine Urobilinogen June 19, 2014 6:58pm 0.2 EU/DL - Has specimen been collected/obtained? Y Urine WBC June 19, 2014 6:58pm 0-1 /HPF - Has specimen been collected/obtained? Y Urine pH June 19, 2014 6:58pm 7.0 - Has specimen been collected/ obtained? Y Vitamin B12 Level April 11, 2014 5:59am 378 PG/ML N 239-931 White Blood Count June 25, 2014 10:55am 13.9 T/MM3 H 4.5-11.0 Chemistry Specimen Hemolysis June 25, 2014 10:55am < 15 0-25 0-25: No Hemolysis.26-70: Slight Hemolysis - can falsely elevate K and Urine Protein. 71-285: Moderate Hemolysis - can falsely elevate K, Troponin I, CA 19-9, PTH, CSF GLucose, and Urine Protein, and can falsely decrease Phenytoin. 286-999: Gross Hemolysis - can falsely elevate K, Troponin I, CA 19-9, PTH, CSF Glucose, and Urine Protine, and can falsely decrease Phenytoin. Recommend specimen recollection. 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 Kris Gonzalez M.D. 13:43 04/12/2014 * Findings: Monoclonal B-Cell Population: [place] description and % total cells: CD45 vs SSC; CD19 vs SSC; about 2% of the total cells. Phenotype: The monoclonal B-cells are brightly CD45+; moderately CD19+/CD20+/FMC7+/Surface Lambda+; trace dim CD11c+/CD38+; negative for CD10, CD5, CD103, CD25 and Surface [place]. These B-cells comprise about 9% of the gated lymphocytes. * Lymphocytes: [place] description and % total cells: CD45 vs [...] April 18, 2014 8:15am Few - Turbidity June 25, 2014 10:55am < 20 0-20 Reactive Lymphocytes % May 02, 2014 4:52am 1.0 % H 0-0 Glomerular Filtration Rate Calc June 25, 2014 10:55am 60 - Serum Total Protein May 11, 2014 8:50am 5.5 g/dL L - Immunoelectrophoresis, no IMQ performed at [facility], [address] [place] [address] Academic Affairs Vice President Leonidas Camacho MD Free [place]/Lambda Light Chain Ratio May 11, 2014 8:50am 0.8682 - Reference Range:0.2600-1.65 Test Performed by: [address] [address] Basketball Commentator: Amos Montero III, M.D. Immunoglobulin Free Light Chains performed at [facility], [address] [place] [address] Academic Affairs Vice President Winston Camacho MD Reactive Lymphocytes # May 02, 2014 4:52am 0.1 T/MM3 H 0-0 Immature Granulocyte # (Auto) June 25, 2014 10:55am 0.06 T/MM3 H 0.00- 0.03 Immature Granulocyte % (Auto) June 25, 2014 10:55am 0.4 % N 0.0-0.5 Urine Total [place]/Lambda Ratio April 13, 2014 9:15pm See below - Ratio not calculated because the Total [place] and TotalLambda values are less than the reportable range. Test Performed by: [place] [address] Basketball Commentator: Amos Montero III, M.D. Immunoglobulin Light Chains, [place] [address] Academic Affairs Vice President Winston Camacho MD Ur Total [place] Light Chains 24 Hr April 13, 2014 9:15pm <0.9000 mg/dL - Test Performed by:[place] [address] Basketball Commentator: Amos Montero III, M.D. Immunoglobulin Light Chains, [place] [address] Academic Affairs Vice President Winston Camacho MD Test Performed by: [place] [address] Basketball Commentator: Amos Montero III, M.D. --- 04/17/14 0823 --- UIFLCKA previously reported as: <0.9000 mg/dL Test Performed by: [place] [address] Basketball Commentator: Amos Montero III, M.D. Immunoglobulin Light Chains, [place] [address] Academic Affairs Vice President Winston Camacho MD Ur Total Lambda Light Chains [...] or septic shock highly indicated. Icterus Index June 25, 2014 10:55am < 2 0-7 AZ-Qfo-L-Type Natriuretic Peptide June 25, 2014 10:55am 1900 PG/ML H 0 -175 Rule in cut points: <50 years old=450; 50-75 years old=900; >75 years old=1800; When utilizing ProBNP rule-in cut points, adjustment for impaired renal function is typically not required. Free [place] Light Chains May 11, 2014 8:50am 1.12 mg/dL - Reference Range:0.3300-1.94 Free Lambda Light Chains May 11, 2014 8:50am 1.29 mg/dL - Reference Range:0.5700-2.63 Test Performed by: [place] [address] Basketball Commentator: Amos Montero III, M.D. Immunoglobulin [place] [address] Academic Affairs Vice President Winston Camacho MD Reference Range: 0.5700-2.63 Test Performed by: [place] [address] Basketball Commentator: Amos Montero III, M.D. --- 05/13/14 1254 --- IFLCLA previously reported as: 1.29 mg/dL Reference Range: 0.5700-2.63 Test Performed by: [place] [address] Basketball Commentator: Amos Montero III, M.D. Immunoglobulin [place] [address] Academic Affairs Vice President Winston Camacho MD Plasma Oxyhemoglobin April 13, 2014 8:10am 8.6 [...] the complete clinical context. Test Performed by: [place] [address] Basketball Commentator: Amos Montero III, M.D. Plasma Hemoglobin performed at [facility], [address] [place] [address] Academic Affairs Vice President Winston Camacho MD Urine Diov-0-Nktbdkok (%) April 13, 2014 9:15pm 5.6 % - Has specimen been collected/obtained? YCOMMENT 24 hour urine Blood Culture Blood June 19, 2014 8:55pm NO GROWTH AFTER 5 DAYS Urine Culture Urine, Clean Catch-Midstream April 10, 2014 3:40pm Legionella Urinary Antigen Urine April 10, 2014 3:40pm Name: GENESIS DUQUE Unit #: [id number] : 1930 Sex: F Loc / Svc: ED DOS: 06/25/14 Signed Report #: [id number] DIAGNOSTIC IMAGING REPORT TYPE OF EXAM: CHEST, PA & LATERAL Dictated By: DEVENDRA NGUYEN MD INDICATION: ITS.REASON: dyspnea CHEST, PA LATERAL: Comparison is made to 06/19/2018 Slightly increased interstitial markings in both lung fletcher. However, no consolidative infiltrate /pneumonia, interstitial edema, or failure is evident. The chest has slightly worsened with respect to previous exam. . Procedures Procedure Status Date Provider(s) BLOOD TRANSFUSION SERVICE completed 04/28/14 ROLAND CABRAL DO EGD DIAGNOSTIC BRUSH WASH completed 04/28/14 ROLAND CABRAL DO THER/PROPH/DIAG IV INF INIT completed 06/19/14 Encounters Encounter Location Date/Time Departed Emergency Room [facility] 06/25/14 10:36am Registered [facility] 06/22/14 11:25am Departed Emergency Room [facility] 06/19/14 5:42pm Departed Emergency Room [facility] 06/06/14 7:07pm Registered [facility] 06/01/14 10:05am Registered [facility] 05/25/14 2:34pm Registered Clinic [facility] 05/11/14 8:57am Registered [facility] 05/04/14 9:17am Discharged Inpatient [facility] 04/28/14 11:24am Registered [facility] 04/24/14 8:39am Discharged Inpatient [facility] 04/10/14 4:47pm Recent Diagnosis
--- OUTSIDE RECORDS SUMMARY | 2017-02-26 16:24 | XMS REPORT | Continuity of Care Document ---
Author Author [facility] Organization [facility] Address Unknown Phone Unavailable Support Name Relationship Address Phone ROLAND CABRAL Caregiver [facility] [address] [place] [address] ELISABET TERAN Next Of Kin [address] [place] [address] Insurance Providers Payer Name Policy Number Subscriber Name Relationship Medicare [id number] Genesis Duque 18 Self Bg Graphdive Plan [id number] Genesis Duque 18 Self Advance Directives Directive Response Recorded Date/Time Advanced Directives Type DPOA for Healthcare 04/10/14 11:54am Ordered Resuscitation Status Limited Code 04/10/14 3:17pm Resuscitation Documents on File Y DPOA for healthcare 04/10/14 12:30pm Problems Medical Problems Problem Onset Date Status Chest pain Unknown Resolved Hypertension Unknown Active CAD (coronary artery disease) Unknown Active Pulmonary hypertension Unknown Active Surgical Problems Problem Onset Date Recorded Date/Time Status Status post placement of cardiac pacemaker Unknown 04/11/2014 12:17pm Active 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 04/11/2014 12:18pm Active H/O mitral valve repair Unknown 04/11/2014 12:18pm Active Medications Medication Dose Route Sig Days/Qty Instructions Order Date Discontinued Date Status Mirtazapine 45 Mg PO BEDTIME 04/10/14 Active Propranolol Hcl 40 Mg PO TWICE A DAY 04/10/14 04/19/14 Discontinued Furosemide 40 Mg PO DAILY 04/10/14 Active Famotidine 40 Mg PO TWICE A DAY 04/10/14 Active Potassium Chloride 10 Meq PO TWICE DAILY WITH MEALS 2 Qty 04/10/14 Active Simvastatin 40 Mg PO BEDTIME 04/10/14 04/19/14 Discontinued Ropinirole Hcl 1 Mg PO DAILY 04/10/14 Active Duloxetine Hcl 30 Mg PO DAILY 04/10/14 Active Multivitamins 1 Tab PO DAILY 04/10/14 Active Aspirin 81 Mg PO DAILY 04/10/14 Active Ferrous Sulfate 324 Mg PO GIVE WITH BREAKFAST 1 Qty 04/10/14 Active Social History Social History Problem Response Recorded Date/Time Smoking Status Never smoker 04/10/2014 11:57am Has the pt used tobacco in the last 12 months No 04/10/2014 11:57am Hospital Discharge Instructions Instructions: Care Instructions: Reason for Hospitalization: PNEUMONIA I was in the hospital because (patient own words): "I had pneumonia" Discharge Diet: Cardiac low sodium Discharge Activity: activity per prehospitalization. Oxygen per prehospitalization Follow Up Appointments: Follow up with Dr Hurst on Thursday04/24/14 at 10:30am. Dr. Cabral on 04/26/14 at 10:15. Dr. Rodriguez on 05/09/14 at 2:40pm Patient Instructions: cbc and cmp drawn at [facility] the day of appointment with dr cabral and sent to him chest xray PA and Lateral forin 6 weeks re:pneumonia Notify Physician If: return to care immediately if shortness at breath cough fever or bleeding occurs New Scripts Called to Pharmacy: Patient to take Tylenol 650mg by mouth every 4 hours as needed for pain. Duoneb every 6 hoursas needed for shortness of air. Miralax 17g in 8 oz water daily, hold for loose stool. Call to pharmacy: Prednisone 30mg by mouth daily #30 Tessalon Perles 100mg 1 capsul by mouth three times daily as needed #90 Potassium chloride 10meq by mouth daily Ventolin HFA 90mcg 2 puffs inhalation every 6 hours as needed #17 Condition at time of discharge: Good Care Plan Discharge Patient: Goal: Understand discharge plan Patient Instructions: see patient instructions Plan of Care Discharge Date 04/19/14 2:35pm Instructions/Education Provided Potassium Congestive Heart Failure (Alternative Therapy) Transesophageal Echocardiography Prednisone Albuterol Oral Inhalation Benzonatate Prescriptions See Medications Section Functional Status Query Response Date Recorded Physical Hygiene Self April 19, 2014 2:13pm Disabilities Hearing Visual April 19, 2014 2:13pm Devices Used Dentures Glasses Walker April 19, 2014 2:13pm Dressing Self April 19, 2014 2:13pm Ambulation Self April 19, 2014 2:13pm Diet Self April 19, 2014 2:13pm Mental Status Alert Oriented April 19, 2014 2:13pm Disabilities Hearing Visual April 19, 2014 2:13pm Devices Used Dentures Glasses Walker April 19, 2014 2:13pm Physical Hygiene Self April 19, 2014 2:13pm Dressing Self April 19, 2014 2:13pm Ambulation Self April 19, 2014 2:13pm Diet Self April 19, 2014 2:13pm Allergies, Adverse Reactions, Alerts Allergen Type Severity Reaction Status Last Updated Cefuroxime Allergy Mild GI upset Active 04/10/14 Axetil Allergy Mild GI Upset Active 04/10/14 Immunizations Name Given Type Hx Influenza Vaccination Yes Historical Hx Pneumococcal Vaccination Yes Historical Hx Influenza Vaccination Yes Historical Vital Signs Acute Vital Signs Vital Response Date/Time Temperature (Fahrenheit) 97.9 deg F (96.8 - 99.1) Temperature (Calculated Celsius) 36.14175 degrees C (36.0 - 37.3) Temperature Source Oral Pulse Rate (adult) 78 bpm (60 - 100) Respiratory Rate 20 breaths/min (10 - 20) Oxygen Delivery Method Room Air Results Test Source Date Result Interp. Ref. Range Comments Absolute Reticulocyte Count April 17, 2014 5:15am 0.1302 T/MM3 H 0.0300- 0.0900 Activated Partial Thromboplast Time April 11, 2014 8:00pm 33.0 SEC N 24- 36 COMMENT with next troponin draw. Alanine Aminotransferase (ALT/SGPT) April 24, 2014 8:44am 56 U/L H 9-52 Albumin April 24, 2014 8:44am 3.3 G/DL L 3.5-5.0 Albumin/Globulin Ratio April 24, 2014 8:44am 1.1 RATIO N 1.1-2.2 Alkaline Phosphatase April 24, 2014 8:44am 108 U/L N 38-126 Bcnkc-7-Dcihiawau April 11, 2014 5:59am 0.6 g/dL H - Uobke-9-Lfsbcutub (%) April 11, 2014 5:59am 9.2 % H - Roroo-5-Rgnoqkcom April 11, 2014 5:59am 1.1 g/dL - Vebov-3-Wodkndlnv (%) April 11, 2014 5:59am 16.6 % - Anion Gap April 24, 2014 8:44am 10 MEQ/L N 5-15 Anisocytosis April 19, 2014 4:25am 1+ - Aspartate Amino Transf (AST/SGOT) April 24, 2014 8:44am 58 U/L H 14-36 BUN/Creatinine Ratio April 24, 2014 8:44am 42 RATIO H 6-26 Band Neutrophils # April 24, 2014 8:44am 0.4 T/MM3 - Band Neutrophils % April 24, 2014 8:44am 2.0 % N 0-6 Basophils # (Auto) April 15, 2014 5:45am 0.0 T/MM3 N 0-0.2 Basophils # (Manual) April 13, 2014 4:22am 0.3 T/MM3 H 0-0.2 Basophils % (Manual) April 13, 2014 4:22am 2.0 % N 0-2 Basophils (%) (Auto) April 15, 2014 5:45am 0.3 % N 0-2 Blood Smear Pathologist Review April 11, 2014 5:59am Sent for review - Blood Urea Nitrogen April 24, 2014 8:44am 46.0 MG/DL H 7-17 C-Reactive Protein April 10, 2014 1:32pm 70.1 MG/L H 0-9 Calcium Level April 24, 2014 8:44am 9.4 MG/DL N 8.4-10.2 Calculated Osmolality April 24, 2014 8:44am 281 MOSM/KG H 261-280 Carbon Dioxide Level April 24, 2014 8:44am 31 MEQ/L H 22-30 Chloride Level April 24, 2014 8:44am 99 MEQ/L N 98-107 Cold Agglutinin Titer April 15, 2014 5:45am Negative - Creatine Kinase MB April 10, 2014 1:32pm < 0.2 NG/ML 0-3.4 Creatinine April 24, 2014 8:44am 1.1 MG/DL N 0.7-1.2 Eosinophils # (Auto) April 15, 2014 5:45am 0.0 T/MM3 N 0-0.5 Eosinophils # (Manual) April 19, 2014 4:25am 0.3 T/MM3 N 0-0.5 Eosinophils % (Manual) April 19, 2014 4:25am 2.0 % N 0-4 Eosinophils (%) (Auto) April 15, 2014 5:45am 0.0 % N 0-4 Erythrocyte Sedimentation Rate April 10, 2014 1:32pm > 100 MM/HR H 0-20 Erythropoietin April 11, 2014 5:59am 17.9 mIU/mL - Reference Range: 2.6 - 18.5 Test Performed by: [facility] [address] [place] [address] Heavy Duty Custodian: Amos Montero III, M.D. Erythropoietin performed at [facility], [address] [place], [place] [id number] Court Bailiff Or Sheriff Winston Camacho MD Ferritin April 11, 2014 8:00pm 464 NG/ML H 11-264 COMMENT with next troponin draw. Folate April 11, 2014 5:59am > 20.0 NG/ML H 2.76-20 NORMAL ADULT RANGE: 2.76->20 ng/mL Gamma Globulins April 11, 2014 5:59am 0.7 g/dL - Gamma Globulins (%) April 11, 2014 5:59am 11.7 % - Immunoelectrophoresis, no IMQ performed at [facility] Reference Lab, [address] [place] [address] Court Bailiff [place] Sheriff Leonidas Camacho MD Globulin April 24, 2014 8:44am 2.9 G/DL N 2.4-3.6 Glucose Level April 24, 2014 8:44am 98 MG/DL N 65-110 Haptoglobin April 24, 2014 8:44am 275 mg/dL H - Haptoglobin performed at [facility], [address] [place], [place] [address]Medical Director Leonidas Camacho MD Hematocrit April 24, 2014 8:44am 22.8 % L 36-46 Hemoglobin April 24, 2014 8:44am 7.1 GM/DL L 12-16 Hemoglobin A1c April 11, 2014 5:59am 5.6 % L 6-7 <6.0 NON-DIABETIC RANGE6.0-7.0 ADA THERAPEUTIC RANGE >7.0 ACTION SUGGESTED Homocysteine April 11, 2014 5:59am 5.6 umol/L - Homocysteine performed at [facility] Reference Lab, [address] [place], [place] [address]Medical Director Leonidas Camacho MD Hypochromasia April 19, 2014 4:25am 2+ - Immature Reticulocyte Fraction April 17, 2014 5:15am 16.4 % H 3.3-14.5 Immunoglobulin A April 11, 2014 5:59am 52.05 MG/DL L 70-400 Immunoglobulin G April 11, 2014 5:59am 814.18 MG/DL N 700-1600 Immunoglobulin M April 11, 2014 5:59am 122.46 MG/DL N 40-230 Influenza Type A Antigen April 10, [...] - Reference Range 19.2% - 24.8% LD 4 April 13, 2014 8:10am 13.3 - Reference Range 9.6% - 15.6% LD 5 April 13, 2014 8:10am 5.4 - Reference Range 5.5% - 12.7%.Testing performed at [place], [place] Lactate Dehydrogenase April 17, 2014 5:15am 783 U/L H 313-618 Large Platelets April 19, 2014 4:25am Few - Lymphocytes # (Auto) April 15, 2014 5:45am 2.3 T/MM3 N 1-4.8 Lymphocytes # (Manual) April 24, 2014 8:44am 3.5 T/MM3 N 1-4.8 Lymphocytes % (Manual) April 24, 2014 8:44am 17.0 % L 23-45 Lymphocytes (%) (Auto) April 15, 2014 5:45am 22.6 % L 23-45 Macrocytosis April 18, 2014 8:15am 1+ - Magnesium Level April 17, 2014 5:15am 2.2 MG/DL N 1.6-2.3 Mean Corpuscular Hemoglobin April 24, 2014 8:44am 32.4 UUG N 26-34 Mean Corpuscular Hemoglobin Concent April 24, 2014 8:44am 31.1 GM/DL N 31 -37 Mean Corpuscular Volume April 24, 2014 8:44am 104.1 UM3 H 80-100 Mean Platelet Volume April 24, 2014 8:44am 11.2 UM3 N 9.4-12.4 Methylmalonic Acid April 11, 2014 5:59am 0.15 nmol/mL - Test Performed by:[address] [address] Heavy Duty Custodian: Amos Montero III, M.D. Methylmalonic Acid, Serum performed at [facility], [address] [place] [address] [address] [address] Bailiff Or Sheriff Winston Camacho MD Monocytes # (Auto) April 15, 2014 5:45am 0.4 T/MM3 N 0-0.8 Monocytes # (Manual) April 24, 2014 8:44am 0.4 T/MM3 N 0-0.8 Monocytes % (Manual) April 24, 2014 8:44am 2.0 % N 0-9.0 Monocytes (%) (Auto) April 15, 2014 5:45am 3.9 % N 0-9.0 Mycoplasma pneumoniae IgG Antibody [...] with M. pneumoniae. Mycoplasma Antibodies performed at [facility], [address] [place] [address] Court Bailiff Or Sheriff Leonidas Camacho MD Myelocytes # April 16, 2014 5:25am 0.2 T/MM3 - Myelocytes % April 16, 2014 5:25am 1.0 % H 0-0 Neutrophils # (Auto) April 15, 2014 5:45am 7.3 T/MM3 N 1.8-7.7 Neutrophils # (Manual) April 24, 2014 8:44am 16.3 T/MM3 H 1.8-7.7 Neutrophils % (Manual) April 24, 2014 8:44am 79.0 % H 33-66 Neutrophils (%) (Auto) April 15, 2014 5:45am 71.9 % H 33-66 Nucleated Red Blood Cells April 24, 2014 8:44am 5 - Ovalocytes April 17, 2014 5:15am 1+ - Percent Iron Saturation April 11, 2014 8:00pm 8 % L 9-55 COMMENT with next troponin draw. Percent Reticulocyte Count April 17, 2014 5:15am 6.2 % H 0.6-1.7 Phosphorus Level April 11, 2014 12:52pm 3.4 MG/DL N 2.5-4.5 COMMENT add to blood in lab. check with next troponin draw if that's not possible. COMMENT add to blood in lab. add to next troponin draw if unable to do so. Platelet Count April 24, 2014 8:44am 283 T/MM3 N 130-400 Poikilocytosis April 19, 2014 4:25am 1+ - Potassium Level April 24, 2014 8:44am 4.2 MEQ/L N 3.6-5 Prothromb Time International Ratio April 17, 2014 5:15am 1.17 H 0.81- 1.09 THERAPUTIC RANGE=2.00-3.00 FOR ANTI-THROMBOSIS THERAPUTIC RANGE=2.50- 3.50 FOR IMPLANTED VALVE RDW Standard Deviation April 24, 2014 8:44am 60.1 FL H 36.9-50.2 Red Blood Count April 24, 2014 8:44am 2.19 M/MM3 L 4.00-5.20 Reference Lab Test Name April 13, 2014 8:10am Sent out - Reticulocyte Hgb Content (CHr) April 17, 2014 5:15am 33.7 PG N 30.8-36.6 Schistocytes April 13, 2014 4:22am 1+ - Sodium Level April 24, 2014 8:44am 140 MEQ/L N 134-144 Stool Occult Blood April 17, 2014 7:43pm Negative - Has specimen been collected/obtained? Y Target Cells April 13, 2014 4:22am 1+ - Thyroid Stimulating Hormone (TSH) April 10, 2014 12:46pm 1.25 MIU/L N 0.47-4.68 COMMENT add to blood already drawn in lab. Total Bilirubin April 24, 2014 8:44am 0.50 MG/DL N 0.20-1.30 Total Creatine Kinase April 10, 2014 1:32pm < 20 U/L L 30-135 Total Iron Binding Capacity April 11, 2014 8:00pm 297 UG/DL N 261-497 COMMENT with next troponin draw. Total Protein April 24, 2014 8:44am 6.2 G/DL L 6.3-8.2 Troponin I April 16, 2014 5:25am < 0.012 ng/ml 0-0.12 Uric Acid April 17, 2014 5:15am 9.7 MG/DL H 2.5-7.5 Urine Albumin (%) April 13, 2014 9:15pm 72.1 % - Has specimen been collected/obtained? YCOMMENT 24 hour urine Urine Fqfxd-2-Fwncbxwax (%) April 13, 2014 9:15pm 6.8 % - Has specimen been collected/obtained? YCOMMENT 24 hour urine Urine Lponw-0-Iafznlrqj (%) April 13, 2014 9:15pm 8.9 % - Has specimen been collected/obtained? YCOMMENT 24 hour urine Urine Bacteria April 14, 2014 7:55am 1+ H - Has specimen been collected/ obtained? Y Urine Bilirubin April 14, 2014 7:55am Negative - Has specimen been collected/obtained? Y Urine Blood April 14, 2014 7:55am Negative - Has specimen been collected/obtained? Y Urine Collection Duration April 13, 2014 9:15pm 24 Hr - Protein electrophoresis, Urine performed at [facility] Reference Lab, [address] [place] [address] Court Bailiff [employer] Sheriff Leonidas Camacho MD Urine Collection Time April 13, 2014 9:15pm 24 HRS - Has specimen been collected/obtained? YCOMMENT 24-hour urine Urine Collection Type April 14, 2014 7:55am Cleancatch-midstream - Has specimen been collected/obtained? Y Urine Color April 14, 2014 7:55am Yellow - Has specimen been collected /obtained? Y Urine Comment April 13, 2014 9:15pm [...] % - Eosinophil Count, Urine performed at [facility] Reference Lab, [facility] [place] [place] [place] [place] [address] Court Bailiff Or Sheriff Leonidas Camacho MD Urine Gamma Globulin (%) April 13, 2014 9:15pm 6.6 % - Has specimen been collected/obtained? YCOMMENT 24 hour urine Urine Glucose (UA) April 14, 2014 7:55am Negative - Has specimen been collected/obtained? Y Urine Hemosiderin April 13, 2014 9:15pm Negative - Test Performed by: [facility] [place] [address] Heavy Duty Custodian: Amos Montero III, M.D. Hemosiderin, Urine performed at [facility], [address] [place] [address] Court Bailiff Or Sheriff Winston Camacho MD Urine Hyaline Casts April 14, 2014 7:55am 5-10 /LPF - Has specimen been collected/obtained? Y Urine Ketones April 14, 2014 7:55am Negative - Has specimen been collected/obtained? Y Urine Leukocyte Esterase April 14, 2014 7:55am Negative - Has specimen been collected/obtained? Y Urine Nitrite April 14, 2014 7:55am Negative - Has specimen been collected/obtained? Y Urine Protein April 14, 2014 7:55am 1+ H - Has specimen been collected/ obtained? Y Urine RBC April 14, 2014 7:55am None seen /HPF - Has specimen been collected/obtained? Y Urine Random Creatinine April 13, 2014 4:33pm 89.7 MG/DL - Has specimen been collected/obtained? Y Urine Random Urea Nitrogen April 13, 2014 4:33pm 523.0 MG/DL - Has specimen been collected/obtained? Y Urine Specific [place] April 14, 2014 7:55am 1.015 - Has specimen been collected/obtained? Y Urine Squamous Epithelial Cells April 14, 2014 7:55am 5-10 - Has specimen been collected/obtained? Y Urine Total Protein April 13, 2014 9:15pm 32 mg/dL H - Protein electrophoresis, Urine performed at [facility] Reference [facility], [address] [place] [address] Court Bailiff Or Sheriff Leonidas Camacoh MD Urine Total Protein 24 Hour April [...] Has specimen been collected/obtained? Y Urine Turbidity April 14, 2014 7:55am Clear - Has specimen been collected/obtained? Y Urine Urobilinogen April 14, 2014 7:55am 0.2 EU/DL - Has specimen been collected/obtained? Y Urine WBC April 14, 2014 7:55am 5-10 /HPF H - Has specimen been collected/obtained? Y Urine pH April 14, 2014 7:55am 5.5 - Has specimen been collected/ obtained? Y Vitamin B12 Level April 11, 2014 5:59am 378 PG/ML N 239-931 White Blood Count April 24, 2014 8:44am 20.6 T/MM3 H 4.5-11.0 Chemistry Specimen Hemolysis April 24, 2014 8:44am < 15 0-25 0-25: No Hemolysis.26-70: Slight [...] can falsely decrease Phenytoin. Recommend specimen recollection. 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 Kris Gonzalez M.D. 13:43 04/12/2014 * Findings: Monoclonal B-Cell Population: [place] description and % total cells: CD45 vs SSC; CD19 vs SSC; about 2% of the total cells. Phenotype: The monoclonal B-cells are brightly CD45+; moderately CD19+/CD20+/FMC7+/Surface Lambda+; trace dim CD11c+/CD38+; negative for CD10, CD5, CD103, CD25 and Surface [place]. These B-cells comprise about 9% of the gated lymphocytes. * Lymphocytes: [place] description and % total cells: CD45 vs [...] April 18, 2014 8:15am Few - Turbidity April 24, 2014 8:44am < 20 0-20 Reactive Lymphocytes % April 18, 2014 8:15am 1.0 % H 0-0 Glomerular Filtration Rate Calc April 24, 2014 8:44am 48 - Serum Total Protein April 11, 2014 5:59am 6.3 g/dL - Immunoelectrophoresis, no IMQ performed at [facility] Reference Lab, [address] [place] [address] Court Bailiff Or Sheriff Leonidas Camacho MD Free [place]/Lambda Light Chain Ratio April 11, 2014 5:59am 0.7196 - Reference Range:0.2600-1.65 Test Performed by: [place] [address] Heavy Duty Custodian: Amos Montero III, M.D. Immunoglobulin [place] [address] Court Bailiff Or Sheriff Winston Camacho MD Reactive Lymphocytes # April 18, 2014 8:15am 0.2 T/MM3 H 0-0 Immature Granulocyte # (Auto) April 15, 2014 5:45am 0.13 T/MM3 H 0.00- 0.03 Immature Granulocyte % (Auto) April 15, 2014 5:45am 1.3 % H 0.0-0.5 Urine Total [place]/Lambda Ratio April 13, 2014 9:15pm See below - Ratio not calculated because the Total [place] and TotalLambda values are less than the reportable range. Test Performed by: [place] [address] Heavy Duty Custodian: Amos Montero III, M.D. Immunoglobulin Light Chains, [place] [address] Court Bailiff Or Sheriff Winston Camacho MD Ur Total [place] Light Chains 24 Hr April 13, 2014 9:15pm <0.9000 mg/dL - Test Performed by:[place] [address] Heavy Duty Custodian: Amos Montero III, M.D. Immunoglobulin Light Chains, [place] [address] Court Bailiff [place] Sheriff Winston Camacho MD Test Performed by: [place] [address] Heavy Duty Custodian: Amos Montero III, M.D. --- 04/17/14 0823 --- UIFLCKA previously reported as: <0.9000 mg/dL Test Performed by: [place] [address] Heavy Duty Custodian: Amos Montero III, M.D. Immunoglobulin Light Chains, Urine performed at [place] [id number] Court Bailiff Or Sheriff Winston Camacho MD Ur Total Lambda Light Chains 24 Hr April 13, 2014 9:15pm <0.7000 mg/dL - Has specimen been collected/obtained? YCOMMENT 24 HOUR URINE COMMENT 24-hour urine Venous Blood Lactate April 12, 2014 12:30pm 1.8 MMOL/L N 0.6-2.2 Procalcitonin April 10, 2014 4:15pm 0.28 NG/ML - PCT </=0.5 ng/mL - sepsis not likely;PCT >0.5 and </=2 ng/mL - sepsis possible; PCT >2 ng/mL - sepsis likely; PCT >/=10 ng/mL - systemic inflammatory response - sepsis or septic shock highly indicated. Icterus Index April 24, 2014 8:44am < 2 0-7 SY-Cbu-S-Type Natriuretic Peptide April 10, 2014 12:26pm 3000 PG/ML H 0- 175 Rule in cut points: <50 years old=450; 50-75 years old=900; >75 years old=1800; When utilizing ProBNP rule-in cut points, adjustment for impaired renal function is typically not required. Flow Cytometry Comment April 11, 2014 5:59am See comment - Performed Antibodies:CD2, CD16, CD56, FMC7, CD20, CD19, CD10, HLA-DR, CD23, CD5, CD103, CD11C, CD25, CD3, CD4, CD8, CD45, CD7, Surface [place], and Surface Lambda. - This test or one or more of its components was developed and its performance characteristics determined by [facility]. It has not been cleared or approved by U.S. Food and Drug Administration. The FDA has determined that such clearance or approval is not necessary. This test is used for clinical purposes. It should not be regarded as investigational or for research. This Laboratory is certified under the Clinical Laboratory Improvement Amendments of 1988 ('CLIA') as qualified to perform high complexity clinical laboratory testing. Flow, Lymphoma Panel performed at [facility], [address] [place] [address] Court Bailiff Or Sheriff Leonidas Camacho MD Free [place] Light Chains April 11, 2014 5:59am 1.36 mg/dL - Reference Range:0.3300-1.94 Free Lambda Light Chains April 11, 2014 5:59am 1.89 mg/dL - Reference Range:0.5700-2.63 Test Performed by: [place] [address] Heavy Duty Custodian: Amos Montero III, M.D. Immunoglobulin [place] [address] Court Bailiff Or Sheriff Winston Camacho MD Reference Range: 0.5700-2.63 Test Performed by: [place] [address] Heavy Duty Custodian: Amos Montero III, M.D. --- 04/12/14 1258 --- IFLCLA previously reported as: 1.89 mg/dL Reference Range: 0.5700-2.63 Test Performed by: [place] [address] Heavy Duty Custodian: Amos Montero III, M.D. Immunoglobulin [place] [address] Court Bailiff Or Sheriff Winston Camacho MD Plasma Oxyhemoglobin April 13, [...] the complete clinical context. Test Performed by: [place] [address] Heavy Duty Custodian: Amos Montero III, M.D. Plasma [place] [address] Court Bailiff Or Sheriff Winston Camacho MD Urine Hxui-8-Zgwijkow (%) April 13, 2014 9:15pm 5.6 % - Has specimen been collected/obtained? YCOMMENT 24 hour urine Blood Culture Blood April 10, 2014 1:32pm NO GROWTH AFTER 5 DAYS Legionella Urinary Antigen Urine April 10, 2014 3:40pm Urine Culture Urine, Clean Catch-Midstream April 10, 2014 3:40pm Procedures No known history of procedures. Encounters Encounter Location Date/Time Registered Clinic [facility] 04/24/14 8:39am Discharged Inpatient [facility] 04/10/14 4:47pm Registered Clinic [facility] 03/17/14 9:14am
--- OUTSIDE RECORDS SUMMARY | 2017-02-26 16:24 | XMS REPORT ---
Author Author GENERATED, SYSTEM Organization Unknown Address Unknown Phone Unavailable Care Team Providers Care Java Support Engineer Name Role Phone MD YEHUDA, CHINO PP [phone] Reason For Visit Reason for Visit from 08/25/2014 11:12 AM:* Pt Stated Reason for Adm : IVIG Chief Complaint CVIDS Social History Functional Status Functional Status from 08/25/2014 11:12 AM:* LOC : Alert * Oriented To : Person,Place,Time,Event Vital Signs Hospital Vital Signs from 08/25/2014 2:47 PM:* Height : 5/0 ft,in * Pulse : 66 * Respirations : 16 * BP : 132/64 Hospital Vital Signs from 08/25/2014 2:32 PM:* Height : 5/0 ft,in * Pulse : 61 * Respirations : 16 * BP : 137/69 Hospital Vital Signs from 08/25/2014 2:17 PM:* Height : 5/0 ft,in * Pulse : 66 * Respirations : 16 * BP : 132/68 Hospital Vital Signs from 08/25/2014 2:02 PM:* Height : 5/0 ft,in * Pulse : 58 * BP : 133/51 Hospital Vital Signs from 08/25/2014 1:47 PM:* Height : 5/0 ft,in * Pulse : 66 * BP : 134/75 Hospital Vital Signs from 08/25/2014 1:32 PM:* Height : 5/0 ft,in * Pulse : 70 * BP : 144/68 Hospital Vital Signs from 08/25/2014 1:17 PM:* Height : 5/0 ft,in * Pulse : 69 * BP : 142/63 Hospital Vital Signs from 08/25/2014 12:50 PM:* Height : 5/0 ft,in * Pulse : 68 * BP : 147/84 Hospital Vital Signs from 08/25/2014 12:35 PM:* Height : 5/0 ft,in * Pulse : 67 * BP : 147/90 Hospital Vital Signs from 08/25/2014 12:20 PM:* Height : 5/0 ft,in * Pulse : 65 * BP : 142/84 Hospital Vital Signs from 08/25/2014 12:05 PM:* Height : 5/0 ft,in * Pulse : 66 * BP : 150/85 Hospital Vital Signs from 08/25/2014 11:50 AM:* Height : 5/0 ft,in * Pulse : 69 * BP : 147/84 Hospital Vital Signs from 08/25/2014 11:35 AM:* Height : 5/0 ft,in * Pulse : 70 * BP : 159/81 Hospital Vital Signs from 08/25/2014 11:25 AM:* Height : 5/0 ft,in * Temperature : 97.9 F * Pulse : 69 * BP : 146/86 Results Problems Encounter Diagnosis No relevant problems [...]
--- OUTSIDE RECORDS SUMMARY | 2017-02-26 16:24 | XMS REPORT ---
Author Author GENERATED, SYSTEM Organization Unknown Address Unknown Phone Unavailable Care Team Providers Care Claim Clerk Name Role Phone MD YEHUDA, CHINO [phone] Reason For Visit Chief Complaint 202.80 Social History Functional Status Vital Signs Results [...]
--- OUTSIDE RECORDS SUMMARY | 2017-02-26 16:24 | XMS REPORT | Summary of Care ---
Author Author Krunal Lennon M.D. Unknown Address Unknown Phone Unavailable Care Team Providers Care Plastics Bench Mechanic Name Role Phone Ferdinand Hammonds, Cece Unavailable Unavailable Chapito Muro Unavailable Unavailable Reji Hammonds T. 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 Hypercholesteremia (272.0, E78.0) Status: Active [...] Refills: 5 Chapito Muro * Started 15-Aug-2014 ActiveAcyclovir 400 [...] Aortic Valve Replacement RENAL PROFILE 1240 Ordered:21-Mar-2016 CBC w/ Auto Diff 7150 Ordered: RENAL PROFILE 1240 Ordered: Immunization Name Dates Details Influenza Lot #: [id number] Administered on:02-Aug-2010 Influenza Lot #: [id number] Administered on:24-Aug-2012 Pneumo (Pneumovax) Lot #: [id number] Administered on:24-Aug-2012 Fluzone High-Dose 0.5 ML Intramuscular Suspension Prefilled Syringe Lot #: [id number] Administered on:25-Jul-2015 Tdap (Adacel) Lot #: [id number] Administered on:05-Nov-2015 Family History natural son* Name [...] m2 Status: Results Date Description Value Details Results not documented Plan of Care Planned Observations* Name Dates Details Planned Goals not documented Goal Planned Encounters* Appointment; Provider: Krunal Lennon On 14-Jul-2016 15:15 * Appointment; Provider: Bruce Saunders On 09-Jun-2016 08:30 * Appointment; Provider: Chapito Muro On 13:30 [...] Problem not documented On 31-Jan-2016 13:15 Appointment; Kruanl Lennon Encounter Diagnosis: Problem not documented On [...]
--- OUTSIDE RECORDS SUMMARY | 2017-02-26 16:25 | XMS REPORT | Summary of Care ---
Author Author Krunal Lennon M.D. Organization Unknown Address Unknown Phone Unavailable Care Team Providers Care Fireworks Maker Name Role Phone Cece Streeter M.D. Unavailable [...] Ordered: 08-Sep-2016 RENAL PROFILE 1240 Ordered: 08-Sep-2016 Immunization Name Dates Details Influenza Lot #: [id number] on: 02-Aug-2010 Influenza Lot #: [id number] on: 24-Aug-2012 Pneumo (Pneumovax) Lot #: [id number] on: 24-Aug-2012 Fluzone High-Dose 0.5 ML Intramuscular Suspension Prefilled Syringe Lot #: [id number] on: 25-Jul-2015 Tdap (Adacel) Lot #: [id number] on: 05-Nov-2015 Fluzone High-Dose 0.5 ML Intramuscular Suspension Prefilled Syringe Lot #: [id number] on: 02-Sep-2016 Family History Name Dates Details [...] Range: >60 EST GFR, NON-AFR [place] 29 ml/min (Below low threshold) Range: >60 [...] (11.3) by [facility]---- - RBC 3.58 mil/uL (Below low threshold) [...] Range: >60 EST GFR, NON-AFR [place] 32 ml/min (Below low threshold) Range: >60 [...] Present HJ BODIES Present 09-Sep-2016 12:58 Haptoglobin [id number] Comments: SIGNED ORDER FILED IN OFFICETesting performed at: [DA] [facility], [address] [place] [address], [place], [address], , Testing Shaking Shipping: KEILA Carranza MD HAPTOGLOBIN 189 mg/dL Range: 34-200 15:56 VIVIAN PE and FLC Serum [id number] Comments: SIGNED ORDER FILED IN OFFICETesting performed at: [DA] [facility], [address] [place] [address], [place], [address], , Testing Shaking Shipping: KEILA Carranza MD IMMUNOGLOBULIN G, QN, SERUM 285 mg/dL (Below low threshold) Range: 700- 1600 IMMUNOGLOBULIN A, QN, SERUM 26 mg/dL (Below low threshold) Range: 64-422 IMMUNOGLOBULIN M, QN, SERUM <5 mg/dL (Below low threshold) Range: 26-217 Comments: Verified by repeat analysis----- PROTEIN, TOTAL, SERUM 5.9 g/dL (Below low threshold) Range: 6.0-8.5 ALBUMIN 3.4 g/dL Range: 2.9-4.4 OUBLW-4-BICTRFLV 0.4 g/dL Range: 0.0-0.4 VGULC-9-BFCLYASV 0.9 g/dL Range: 0.4-1.0 BETA GLOBULIN 0.9 g/dL Range: 0.7-1.3 GAMMA GLOBULIN 0.3 g/dL (Below low threshold) Range: 0.4-1.8 M-SPIKE Not Observed g/dL Range: Not Observed GLOBULIN, TOTAL 2.5 g/dL Range: 2.2-3.9 A/G RATIO 1.4 Range: 0.7-1.7 IMMUNOFIXATION RESULT, SERUM Comment Comments: An apparent normal immunofixation pattern.----- PLEASE NOTE: Comment Comments: Protein electrophoresis scan will follow via computer,mail, or market intelligence consultant delivery.----- FREE KAPPA LT CHAINS,S 12.85 mg/L [...] /HPF Range: 0-10 25-Sep-2016 16:19 URINE CULTURE [id number] Comments: Quest performed at: [email or web address], [address] [place] [address], [phone], Testing Shaking Shipping: Gigi Alberto D.O., MPHQuest Collection Date/Time: [id number] Results Received Date/Time: [id number] Reported Date/Time: [id number] FASTING:NOQuest performed at: [email or web address], [address] [place] [address], [phone], Testing Shaking Shipping: Gigi Alberto D.O., MPHQuest Collection Date/Time: [id number] Results Received Date/Time: [id number] Reported Date/Time: [id number] FASTING:NO CULTURE, URINE, ROUTINE SEE NOTE (Abnormal) Comments: CULTURE, URINE, ROUTINE MICRO NUMBER: [id number] TEST STATUS: FINAL SPECIMEN SOURCE : URINE [...] Range: 18-158 RBC 3.83 mil/uL Range: 3.60-5.00 Plan of Care Name Dates Details Planned [...] Problem not documented On 12-Jun-2015 11:30 Appointment; Krunla Lennon M.D. Encounter Diagnosis: Problem not documented [...]
--- OUTSIDE RECORDS SUMMARY | 2017-02-26 16:25 | XMS REPORT ---
Author Author GENERATED, SYSTEM Organization Unknown Address Unknown Phone Unavailable Care Team Providers Care Wall Taper Helper Name Role Phone MD CORTEZ, EMILI PP [phone] Reason For Visit Chief Complaint FALL Social History Functional Status Vital Signs Results [...] 8 :57 AM * Completed Procedure Code: 6468648 Procedure Name: not valued, on 08/27/2016 12 :00 AM * Completed Procedure Code: 78351 Procedure Name: not valued, on 08/27/2016 12: 00 AM * Completed Procedure Code: [id number] Procedure Name: not valued, on 07/30/2016 9: 59 AM * Completed Procedure Code: [id number] Procedure Name: not valued, on 07/30/2016 9: 59 AM * Completed Esophagogastroduodenoscopy with control of bleeding, by MD ROOSEVELT DIAZ, on 07/30/2016 9:21 AM * Completed Procedure Code: 5441018 Procedure Name: not valued, on 07/21/2016 12 :00 AM * Completed Procedure Code: 03311 Procedure Name: not valued, on 07/21/2016 12: 00 AM * Completed Procedure Code: 72583 Procedure Name: not valued, on 07/21/2016 12: 00 AM * Completed Procedure Code: 77061D8 Procedure Name: not valued, on 06/21/2016 12 [...] Allergies, Adverse Reactions, Alerts This section is direct customer service representative of the current allergy information, at [...]
--- OUTSIDE RECORDS SUMMARY | 2017-02-26 16:25 | XMS REPORT | Summary of Care ---
Author Author Chapito Muro Organization Unknown Address [address], [place] [id number] Phone Unavailable Care Team Providers Care Md Physician Dermatologist Name Role Phone Cece Streeter M.D. Unavailable Unavailable Chapito Muro Unavailable Unavailable Reji Hammonds, T. KLinda Unavailable Unavailable Bunny Meng M.D. Unavailable Unavailable Sony Muro Unavailable [...] (dx:J44.9) * Quantity: 90 Refills: 11 Ferdinand MustafaChristieStefan * Start 06-Dec-2012 Active Brovana 15 MCG/2ML Inhalation Nebulization Solution USE VIA NEBULIZER TWO TIMES DAILY (dx:J44.9) * Quantity: 120 Refills: 11 Ferdinand CassiusStefan * Start 23-Nov-2012 Active Budesonide 0.5 MG/2ML Inhalation Suspension USE 1 UNIT DOSE VIA NEBULIZER TWO TIMES A DAY (dx:J44.9) * Quantity: 120 Refills: 11 Maurabunny CassiusStefan * Start 01-Nov-2015 Active BusPIRone HCl - [...] at bedtime * Quantity: 30 Refills: 0 EdemmanuelChapito * Start 16-Jan-2017 Active Folic Acid 1 MG Oral Tablet Take 1 tablet by mouth every morning * Quantity: 30 Refills: 0 BhaskarNewChapito * Start 16-Jan-2017 Active DULoxetine HCl - 60 MG Oral Capsule Delayed Release Particles take 1 capsule by mouth daily * Quantity: 30 Refills: 2 BhaskarChapito * Start 16-Jan-2017 Active Clopidogrel Bisulfate 75 MG Oral Tablet TAKE 1 TABLET BY MOUTH EVERY EVENING * Quantity: 30 Refills: 1 Bhaskar Chapito * Start 16-Jan-2017 Active Pantoprazole Sodium 40 MG Oral Tablet Delayed Release TAKE 1 TABLET BY MOUTH TWICE A DAY * Quantity: 60 Refills: 0 Bhaskar Chapito * Start 16-Jan-2017 Active Digoxin 125 MCG [...] 1 Bhaskar Chapito * Start 15-Aug-2014 Active Allergies and Adverse [...] 11-Feb-2017 THYROID STIM. HORMONE 3602 Ordered: 11-Feb-2017 Immunization Name Dates Details Influenza Lot #: [id number] on: 02-Aug-2010 Influenza Lot #: [id number] on: 24-Aug-2012 Pneumo (Pneumovax) Lot #: [id number] on: 24-Aug-2012 Fluzone High-Dose 0.5 ML Intramuscular Suspension Prefilled Syringe Lot #: [id number] on: 25-Jul-2015 Tdap (Adacel) Lot #: [id number] on: 05-Nov-2015 Fluzone High-Dose 0.5 ML Intramuscular Suspension Prefilled Syringe Lot #: [id number] on: 02-Sep-2016 Family History Name Dates Details [...] low threshold) Range: >60 EST GFR, NON-AFR [place] 26 ml/min (Below low threshold) Range: >60 [...] 16:45 X FOOT COMP (MIN 3V) LT Plan of Care Name Dates Details Planned Observations Planned Goals not documented Planned Encounters Appointment; Provider: Chapito Muro On 13:30 Appointment; Provider: Stefan Streeter M.D. On 19-Mar-2017 14:00 Appointment; Provider: Krunal Lennon M.D. On 03-Mar-2017 14:45 Interventions Provided Labs/Procedures/Imaging* XRay FOOT-Left; Done: 11Feb2017 04:45PM Instructions Name Dates Details Instructions not documented [...]
--- OUTSIDE RECORDS SUMMARY | 2017-02-26 16:26 | XMS REPORT ---
Author Author GENERATED, SYSTEM Organization Unknown Address Unknown Phone Unavailable Care Team Providers Care Industrial Electrical Engineer Name Role Phone MD YEHUDA, CHINO [phone] Reason For Visit Reason for Visit from 03/21/2015 11:34 AM:* Pt Stated Reason for Adm : IVIG infusion Chief Complaint IV,CVIDS Social History Functional Status Functional Status from 03/21/2015 11:34 AM:* LOC : Alert * Oriented To : Person,Place,Time,Event Vital Signs Hospital Vital Signs from 03/21/2015 2:30 PM:* Height : 5/0 ft,in * Pulse : 34 * Respirations : 18 * BP : 100/49 Hospital Vital Signs from 03/21/2015 1:30 PM:* Height : 5/0 ft,in * Pulse : 59 * Respirations : 18 * BP : 127/73 Hospital Vital Signs from 03/21/2015 12:30 PM:* Height : 5/0 ft,in * Pulse : 65 * Respirations : 18 * BP : 133/77 Hospital Vital Signs from 03/21/2015 11:45 AM:* Height : 5/0 ft,in * Pulse : 71 * Respirations : 18 * BP : 108/54 Results Chemistry from 03/21/2015 11:37 AMCREATININE 1.12 MG/DL H (0.43-0.83 MG/DL) GFR EST NON AFR [place] 45 ML/MIN GFRA EST AFR AMER 52 ML/MIN Problems Encounter Diagnosis No relevant problems [...]
--- OUTSIDE RECORDS SUMMARY | 2017-02-26 16:26 | XMS REPORT ---
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 Social History Functional Status Functional Status from 11/25/2016 10:40 AM:* LOC : Alert * Oriented To : Person,Place,Time Functional Status from 11/11/2016 10:47 AM:* LOC : Alert * Oriented To : Person,Place,Time,Event Functional Status from 10/28/2016 11:11 AM:* LOC : Alert * Oriented To : Person,Place,Time Vital Signs Hospital Vital Signs from 11/25/2016 2:04 PM:* Height : 5/0 ft,in * Pulse : 59 * BP : 133/75 Hospital Vital Signs from 11/25/2016 1:52 PM:* Height : 5/0 ft,in * Pulse : 59 * BP : 123/66 Hospital Vital Signs from 11/25/2016 1:06 PM:* Height : 5/0 ft,in * Pulse : 58 * BP : 168/88 Hospital Vital Signs from 11/25/2016 12:50 PM:* Height : 5/0 ft,in * Pulse : 59 * BP : 167/81 Hospital Vital Signs from 11/25/2016 12:36 PM:* Height : 5/0 ft,in * Pulse : 59 * BP : 164/79 Hospital Vital Signs from 11/25/2016 12:23 PM:* Height : 5/0 ft,in * Pulse : 62 * BP : 169/84 Hospital Vital Signs from 11/25/2016 12:06 PM:* Height : 5/0 ft,in * Pulse : 59 * BP : 157/79 Hospital Vital Signs from 11/25/2016 11:50 AM:* Height : 5/0 ft,in * Pulse : 60 * BP : 133/75 Hospital Vital Signs from 11/25/2016 11:35 AM:* Height : 5/0 ft,in * Pulse : 59 * BP : 135/76 Hospital Vital Signs from 11/25/2016 11:05 AM:* Height : 5/0 ft,in * Pulse : 59 * BP : 147/80 Hospital Vital Signs from 11/11/2016 2:23 PM:* Height : 5/0 ft,in * Pulse : 59 * Respirations : 18 * BP : 144/86 Hospital Vital Signs from 11/11/2016 2:08 PM:* Height : 5/0 ft,in * Pulse : 59 * Respirations : 18 * BP : 161/82 Hospital Vital Signs from 11/11/2016 1:52 PM:* Height : 5/0 ft,in * Pulse : 58 * Respirations : 18 * BP : 134/70 Hospital Vital Signs from 11/11/2016 1:38 PM:* Height : 5/0 ft,in * Pulse : 59 * Respirations : 18 * BP : 143/66 Hospital Vital Signs from 11/11/2016 1:23 PM:* Height : 5/0 ft,in * Pulse : 58 * Respirations : 18 * BP : 129/60 Hospital Vital Signs from 11/11/2016 1:07 PM:* Height : 5/0 ft,in * Pulse : 59 * Respirations : 18 * BP : 135/76 Hospital Vital Signs from 11/11/2016 12:55 PM:* Height : 5/0 ft,in * Pulse : 59 * Respirations : 18 * BP : 152/78 Hospital Vital Signs from 11/11/2016 12:37 PM:* Height : 5/0 ft,in * Pulse : 58 * Respirations : 18 * BP : 177/88 Hospital Vital Signs from 11/11/2016 12:22 PM:* Height : 5/0 ft,in * Pulse : 60 * Respirations : 18 * BP : 167/88 Hospital Vital Signs from 11/11/2016 12:10 PM:* Height : 5/0 ft,in * Pulse : 61 * Respirations : 18 * BP : 154/89 Hospital Vital Signs from 11/11/2016 11:53 AM:* Height : 5/0 ft,in * Pulse : 62 * Respirations : 18 * BP : 166/79 Hospital Vital Signs from 11/11/2016 11:37 AM:* Height : 5/0 ft,in * Pulse : 60 * Respirations : 18 * BP : 141/79 Hospital Vital Signs from 11/11/2016 11:22 AM:* Height : 5/0 ft,in * Temperature : 96.0 F * Pulse : 59 * Respirations : 18 * BP : 144/71 Hospital Vital Signs from 11/11/2016 10:47 AM:* Weight : 104/ lbs,oz * Height : 5/0 ft,in Hospital Vital Signs from 10/28/2016 2:56 PM:* Height : 5/0 ft,in * Pulse : 59 * BP : 113/76 Hospital Vital Signs from 10/28/2016 2:41 PM:* Height : 5/0 ft,in * Pulse : 59 * BP : 101/58 Hospital Vital Signs from 10/28/2016 2:26 PM:* Height : 5/0 ft,in * Pulse : 60 * BP : 114/63 Hospital Vital Signs from 10/28/2016 2:11 PM:* Height : 5/0 ft,in * Pulse : 59 * BP : 133/69 Hospital Vital Signs from 10/28/2016 1:56 PM:* Height : 5/0 ft,in * Pulse : 59 * BP : 125/67 Hospital Vital Signs from 10/28/2016 1:41 PM:* Height : 5/0 ft,in * Pulse : 59 * BP : 141/76 Hospital Vital Signs from 10/28/2016 1:26 PM:* Height : 5/0 ft,in * Pulse : 59 * BP : 152/85 Hospital Vital Signs from 10/28/2016 1:11 PM:* Height : 5/0 ft,in * Pulse : 59 * BP : 136/78 Hospital Vital Signs from 10/28/2016 12:56 PM:* Height : 5/0 ft,in * Pulse : 59 * BP : 122/72 Hospital Vital Signs from 10/28/2016 12:41 PM:* Height : 5/0 ft,in * Pulse : 58 * BP : 126/73 Hospital Vital Signs from 10/28/2016 12:26 PM:* Height : 5/0 ft,in * Pulse : 59 * BP : 127/77 Hospital Vital Signs from 10/28/2016 12:11 PM:* Height : 5/0 ft,in * Pulse : 59 * BP : 138/80 Hospital Vital Signs from 10/28/2016 11:56 AM:* Height : 5/0 ft,in * Pulse : 59 * BP : 134/76 Hospital Vital Signs from 10/28/2016 11:39 AM:* Weight : 109/ lbs,oz * Height : 5/0 ft,in * Temperature : 96.6 F * Pulse : 60 * Respirations : 18 * BP : 113/66 Hospital Vital Signs from 10/28/2016 11:11 AM:* Weight : 49.442/ kg * Height : 5/0 ft,in Results Chemistry from 11/25/2016 2:06 PMSODIUM 143 MMOL/L (136-145 MMOL/L) POTASSIUM 4.9 MMOL/L (3.5-5.1 MMOL/L) CHLORIDE 106 MMOL/L (98-107 MMOL/L) TCO2 34.2 MMOL/L H (21.0-32.0 MMOL/L) *ANION GAP 2.8 MMOL/L L (8.0-16.0 MMOL/L) BUN 28 MG/DL H (7-18 MG/DL) CREATININE 1.19 MG/DL H (0.55-1.02 MG/DL) *BUN/CREATININE RATIO 23.5 H (9.1-17.0 ) GLUCOSE 101 MG/DL H (65-99 MG/DL) *GFR EST NON AFR CH[place] 41 ML/MIN *GFR EST AFR AMER 48 ML/MIN CALCIUM 8.7 MG/DL (8.5-10.1 MG/DL) BILIRUBIN TOTAL 0.50 MG/DL (0.20-1.00 MG/DL) TOTAL PROTEIN 6.9 GM/DL (6.4-8.2 GM/DL) ALBUMIN 2.9 GM/DL L (3.4-5.0 GM/DL) *GLOBULIN 4.0 GM/DL H (2.3-3.5 GM/DL) *A/G RATIO 0.7 MG/DL L (1.5-2.2 MG/DL) ALK PHOS 125 U/L H (46-116 U/L) ALT (SGPT) 45 U/L (16-63 U/L) AST (SGOT) 52 U/L H (15-37 U/L) Chemistry from 11/20/2016 5:38 AMSODIUM 144 MMOL/L (136-145 MMOL/L) POTASSIUM 5.0 MMOL/L (3.5-5.1 MMOL/L) CHLORIDE 109 MMOL/L H (98-107 MMOL/L) TCO2 30.3 MMOL/L (21.0-32.0 MMOL/L) *ANION GAP 4.7 MMOL/L L (8.0-16.0 MMOL/L) BUN 37 MG/DL H (7-18 MG/DL) CREATININE 1.19 MG/DL H (0.55-1.02 MG/DL) *BUN/CREATININE RATIO 31.1 H (9.1-17.0 ) GLUCOSE 88 MG/DL (65-99 MG/DL) *GFR EST NON AFR [place] 41 ML/MIN *GFR EST AFR AMER 48 ML/MIN CALCIUM 8.8 MG/DL (8.5-10.1 MG/DL) BILIRUBIN TOTAL 0.50 MG/DL (0.20-1.00 MG/DL) TOTAL PROTEIN 6.1 GM/DL L (6.4-8.2 GM/DL) ALBUMIN 2.8 GM/DL L (3.4-5.0 GM/DL) *GLOBULIN 3.3 GM/DL (2.3-3.5 GM/DL) *A/G RATIO 0.8 MG/DL L (1.5-2.2 MG/DL) ALK PHOS 112 U/L (46-116 U/L) ALT (SGPT) 37 U/L (16-63 U/L) AST (SGOT) 49 U/L H (15-37 U/L) B-TYPE NATRIURETIC PROTEIN 418 PG/ML H (1-100 PG/ML) Chemistry from 11/11/2016 11:00 AMCREATININE 1.14 MG/DL H (0.55-1.02 MG/DL) *GFR EST NON AFR CHADIAN 44 ML/MIN *GFR EST AFR AMER 51 ML/MIN Chemistry from 10/28/2016 11:25 AMCREATININE 1.17 MG/DL H (0.55-1.02 MG/DL) *GFR EST NON AFR CH[place] 42 ML/MIN *GFR EST AFR AMER 49 ML/MIN Hematology from 11/21/2016 8:56 AMWBC 10.6 X10e3/UL (3.6-11.2 X10e3/UL) RBC 2.75 X10e6/UL L (3.63-4.92 X10e6/UL) HEMOGLOBIN 9.0 G/DL L (11.0-14.3 G/DL) HEMATOCRIT 28.6 % L (31.2-41.9 %) *MCV 103.9 FL H (79.0-98.0 FL) *MCH 32.7 PG (27.0-33.0 PG) *MCHC 31.4 G/DL L (32.0-36.0 G/DL) *RDW 18.3 % H (12.3-17.0 %) *RDWSD 66.1 H (37.1-47.8 ) PLATELET 115 X10e3/UL L (159-386 X10e3/UL) *MPV 10.9 FL H (7.4-10.4 FL) Hematology from 11/20/2016 5:38 AMWBC 10.9 X10e3/UL (3.6-11.2 X10e3/UL) RBC 2.85 X10e6/UL L (3.63-4.92 X10e6/UL) HEMOGLOBIN 9.2 G/DL L (11.0-14.3 G/DL) HEMATOCRIT 29.3 % L (31.2-41.9 %) *MCV 102.7 FL H (79.0-98.0 FL) *MCH 32.4 PG (27.0-33.0 PG) *MCHC 31.6 G/DL L (32.0-36.0 G/DL) *RDW 18.1 % H (12.3-17.0 %) *RDWSD 64.3 H (37.1-47.8 ) PLATELET 127 X10e3/UL L (159-386 X10e3/UL) *MPV 11.3 FL H (7.4-10.4 FL) Problems Encounter Diagnosis No relevant problems exist. [...] 8 :57 AM * Completed Procedure Code: [id number] Procedure Name: not valued, on 08/27/2016 12 :00 AM * Completed Procedure Code: 73259 Procedure Name: not valued, on 08/27/2016 12: 00 AM * Completed Procedure Code: 2U8N7DL Procedure Name: not valued, on 07/30/2016 9: 59 AM * Completed Procedure Code: [id number] Procedure Name: not valued, on 07/30/2016 9: 59 AM * Completed Esophagogastroduodenoscopy with control of bleeding, by MD ROOSEVELT DIAZ, on 07/30/2016 9:21 AM * Completed Procedure Code: 4516799 Procedure Name: not valued, on 07/21/2016 12 :00 AM * Completed Procedure Code: 15270 Procedure Name: not valued, on 07/21/2016 12: 00 AM * Completed Procedure Code: 53123 Procedure Name: not valued, on 07/21/2016 12: 00 AM * Completed Procedure Code: 72576E8 Procedure Name: not valued, on 06/21/2016 12 [...]
--- OUTSIDE RECORDS SUMMARY | 2017-02-26 16:26 | XMS REPORT ---
Author Author GENERATED, SYSTEM Organization Unknown Address Unknown Phone Unavailable Care Team Providers Care Burr Grinder Name Role Phone MD YEHUDA, CHINO [phone] Reason For Visit Chief Complaint CVIDS Social History Functional Status Vital Signs Results [...]
--- OUTSIDE RECORDS SUMMARY | 2017-02-26 16:26 | XMS REPORT | Summary of Care ---
Author Author Chapito Muro Organization Unknown Address [address] [place], [place] [id number] Phone Unavailable Care Team Providers Care Leasing Professional Name Role Phone Cece Streeter M.D. Unavailable [...] Immunization Name Dates Details Influenza Lot #: [id number] on: 02-Aug-2010 Influenza Lot #: [id number] on: 24-Aug-2012 Pneumo (Pneumovax) Lot #: [id number] on: 24-Aug-2012 Fluzone High-Dose 0.5 ML Intramuscular Suspension Prefilled Syringe Lot #: [id number] on: 25-Jul-2015 Tdap (Adacel) Lot #: [id number] on: 05-Nov-2015 Fluzone High-Dose 0.5 ML Intramuscular Suspension Prefilled Syringe Lot #: [id number] on: 02-Sep-2016 Family History Name Dates Details [...] low threshold) Range: >60 EST GFR, NON-AFR [place] 38 ml/min (Below low threshold) Range: [...] low threshold) Range: >60 EST GFR, NON-AFR [place] 28 ml/min (Below low threshold) Range: [...]
--- OUTSIDE RECORDS SUMMARY | 2017-02-26 16:27 | XMS REPORT | Summary of Care ---
Author Author Erasto Hammonds, [facility] Unknown Address [address] [place], [place] [address] Phone Unavailable Care Team Providers Care Director Of The [facility] Name Role Phone Cece Streeter M.D. Unavailable [...] Status: Active Osteoporosis (733.00, M81.0) Status: Active Hypothyroidism (244.9, E03.9) Status: Active Hyperlipidemia (272.4, E78.5) Status: Active Leukocytosis (288.60, D72.829) Status: Active Dehydration, mild (276.51, E86.0) Status: Active Elevated brain natriuretic peptide (BNP) level (790.99, R79.89) Status: Active Acute right lower quadrant pain (789.03, R10.31) Status: Active Nausea (787.02, R11.0) Status: Active Abdominal pain (789.00, R10.9) Status: Active Medications Name Dates Details Multi-Day [...] Immunization Name Dates Details Influenza Lot #: [id number] Administered on:02-Aug-2010 Influenza Lot #: [id number] Administered on:24-Aug-2012 Pneumo (Pneumovax) Lot #: [id number] Administered on:24-Aug-2012 Fluzone High-Dose 0.5 ML Intramuscular Suspension Prefilled Syringe Lot #: [id number] Administered on:25-Jul-2015 Tdap (Adacel) Lot #: [id number] Administered on:05-Nov-2015 Family History natural son* Name [...] m2 Status: Results Date Description Value Details 03-Mar-2016 13:08 CBC w/ Auto Diff 7150 [...] low threshold) Range: >60 EST GFR, NON-AFR JORDANIAN 41 ml/min (Below low threshold) Range: >60 Comments: EST GFR is reported in ml/min per 1.73 m2 of body surface area. For -Prydeinig, please multiple result by 1.2.----- GLUCOSE 90 [...] low threshold) Range: >60 EST GFR, NON-AFR JORDANIAN 34 ml/min (Below low threshold) Range: >60 Comments: EST GFR is reported in ml/min per 1.73 m2 of body surface area. For -Prydeinig, please multiple result by 1.2.----- GLUCOSE 86 [...] Ry Maurer On 14:30 * Appointment; Provider: Krunal Lennon On 15:15 * Appointment; Provider: Schedule Radiology On 20-Feb-2016 17:30 * Appointment; Provider: Schedule Radiology On 16-Jan-2016 13:40 * Appointment; Provider: Benigno Holt On 07-Jun-2012 14:00 * Appointment; Provider: Bruce Saudners On 11:45 * Appointment; Provider: Raphael Mcduffie [...]
--- OUTSIDE RECORDS SUMMARY | 2017-02-26 16:27 | XMS REPORT | Summary of Care ---
Author Author Chapito Muro Organization Unknown Address [address] [id number] Phone Unavailable Care Team Providers Care Electroless Plater Name Role Phone Ferdinand Hammonds, Cece [...] DYSPNEA * Refills: 0 * Start Active Ventolin HFA 108 (90 Base) MCG/ACT [...] * Refills: 0 * Start 15-Aug-2014 Active Brovana 15 MCG/2ML Inhalation Nebulization Solution USE VIA NEBULIZER TWO TIMES DAILY (dx:J44.9) * Quantity: 120 Refills: 11 Stefan Streeter M.D. * Start 23-Nov-2012 Active Potassium Chloride Summer ER 10 MEQ Oral Tablet Extended Release take 1 tab daily * Quantity: 90 Refills: 3 Chapito Muro * Start 19-Jan-2014 Active Budesonide 0.5 MG/2ML Inhalation Suspension USE 1 UNIT DOSE VIA NEBULIZER TWO TIMES A DAY (dx:J44.9) * Quantity: 120 Refills: 11 Ferdinand Hammonds, Stefan Zhao * Start 01-Nov-2015 Active Pantoprazole [...] 3 Chapito Muro * Start 15-Aug-2014 Active DULoxetine HCl - 60 MG Oral Capsule Delayed Release Particles TAKE 1 CAPSULE AT BEDTIME. * Quantity: 30 Refills: 5 Chapito Muro * Start 10-Oct-2013 Active Injectafer 750 MG/15ML Intravenous Solution Give 750 mg IV, two doses, one week apart. * Quantity: 30 Refills: 0 Krunal Lennon M.D. * Start 26-Aug-2016 Active Ciprofloxacin HCl - 250 MG Oral Tablet TAKE 1 TABLET EVERY 12 HOURS DAILY. for 5 days * Quantity: 10 Refills: 0 Chapito Muro * Start 23-Sep-2016 Active Fluticasone Propionate 50 MCG/ACT Nasal Suspension USE 1 SPRAY IN EACH NOSTRIL ONCE DAILY NEEDED FOR ALLERGY SYMPTOMS * Quantity: 1 Refills: 3 Austyndemetris Chapito * Start 09-Jul-2016 Active Plavix 75 MG Oral Tablet TAKE 1 TABLET DAILY. * Refills: 0 Bhaskar Chapito * Start 09-Jul-2016 Active LORazepam 0.5 MG Oral Tablet TAKE 1 TABLET 3 TIMES DAILY NEEDED. MAY FILL ON OR AFTER 05-09-16 * Quantity: 90 Refills: 0 Chapito Mruo * Start 15-Aug-2014 Active Folic Acid 1 MG Oral Tablet Take 1 tablet daily * Quantity: 30 Refills: 1 Stefan Streeter M.D. * Start 04-Dec-2014 Active Mirtazapine 45 MG Oral Tablet TAKE 1/2 TABLET DAILY * Refills: 0 Stefan Streeter M.D. * Start 10-Oct-2013 Active Atorvastatin Calcium 20 MG Oral Tablet * Refills: 0 Stefan Streeter M.D. * Start 16-Sep-2016 Active Levothyroxine Sodium 25 MCG Oral Tablet TAKE 1 TABLET DAILY. * Quantity: 30 Refills: 3 Bhaskar Cahpito * Start 25-Aug-2016 Active Adult Aspirin EC Low Strength 81 MG Oral Tablet Delayed Release * Refills: 0 Henry Mendoza M.D. * Start 05-Jul-2013 Active Digoxin 125 MCG Oral Tablet Take one tablet by mouth daily * Quantity: 30 Refills: 1 Chapito Muro * Start 09-Jul-2016 Active Alendronate Sodium 70 MG Oral Tablet TAKE 1 TABLET WEEKLY BY MOUTH IN THE MORNING ON AN EMPTY STOMACH WITH 8 OZ. OF WATER, NOTHING ELSE FOR 30 MINUTES. * Quantity: 12 Refills: 3 Bhaskar Chapito * Start 06-Feb-2016 Active Ipratropium-Albuterol 0.5-2.5 (3) MG/3ML Inhalation Solution INHALE 1 VIAL Daily (dx:J44.9) * Quantity: 90 Refills: 11 Stefan Streeter M.D. * Start 06-Dec-2012 Active Allergies and Adverse Reactions Name Dates [...] Immunization Name Dates Details Influenza Lot #: [id number] on: 02-Aug-2010 Influenza Lot #: [id number] on: 24-Aug-2012 Pneumo (Pneumovax) Lot #: [id number] on: 24-Aug-2012 Fluzone High-Dose 0.5 ML Intramuscular Suspension Prefilled Syringe Lot #: [id number] on: 25-Jul-2015 Tdap (Adacel) Lot #: [id number] on: 05-Nov-2015 Fluzone High-Dose 0.5 ML Intramuscular Suspension Prefilled Syringe Lot #: [id number] on: 02-Sep-2016 Family History Name Dates Details [...] low threshold) Range: >60 EST GFR, NON-AFR KOSOVAN 29 ml/min (Below low threshold) Range: >60 [...] (13.3) (09/08/2016 11:23 AM) to (11.3) by [facility].---- - RBC 3.58 mil/uL (Below low threshold) [...] low threshold) Range: >60 EST GFR, NON-AFR KOSOVAN 32 ml/min (Below low threshold) Range: >60 [...] Present HJ BODIES Present 09-Sep-2016 12:58 Haptoglobin [id number] Comments: SIGNED ORDER FILED IN OFFICETesting performed at: [DA] [facility] [address] [address], [place], [address], , Cad Designer: KEILA Carranza MD HAPTOGLOBIN 189 mg/dL Range: 34-200 15:56 VIVIAN PE and FLC Serum [id number] Comments: SIGNED ORDER FILED IN OFFICETesting performed at: [DA] [employer] [address], [place], [address], , Cad Designer: KEILA Carranza MD IMMUNOGLOBULIN G, QN, SERUM 285 mg/dL (Below low threshold) Range: 700- 1600 IMMUNOGLOBULIN A, QN, SERUM 26 mg/dL (Below low threshold) Range: 64-422 IMMUNOGLOBULIN M, QN, SERUM <5 mg/dL (Below low threshold) Range: 26-217 Comments: Verified by repeat analysis----- PROTEIN, TOTAL, SERUM 5.9 g/dL (Below low threshold) Range: 6.0-8.5 ALBUMIN 3.4 g/dL Range: 2.9-4.4 JIFDT-7-DHJWJMJV 0.4 g/dL Range: 0.0-0.4 OCGAD-9-EPJZVKPO 0.9 g/dL Range: 0.4-1.0 BETA GLOBULIN 0.9 g/dL Range: 0.7-1.3 GAMMA GLOBULIN 0.3 g/dL (Below low threshold) Range: 0.4-1.8 M-SPIKE Not Observed g/dL Range: Not Observed GLOBULIN, TOTAL 2.5 g/dL Range: 2.2-3.9 A/G RATIO 1.4 Range: 0.7-1.7 IMMUNOFIXATION RESULT, SERUM Comment Comments: An apparent normal immunofixation pattern.----- PLEASE NOTE: Comment Comments: Protein electrophoresis scan will follow via computer,mail, or auto finance sales rep delivery.----- FREE KAPPA LT CHAINS,S 12.85 mg/L [...] /HPF Range: 0-10 25-Sep-2016 16:19 URINE CULTURE [id number] Comments: [facility] [employer] [facility] performed at: [facility], [address] [place] [address], [address], Cad Designer: Gigi Alberto D.O., MPHQuest Collection Date/Time: [id number] Results Received Date/Time: [id number] Reported Date/Time: [id number] FASTING:NOQuest performed at: [facility], [address] [place] [address], [address], Cad Designer: Gigi Alberto D.O., MPHQuest Collection Date/Time: [id number] Results Received Date/Time: [id number] Reported Date/Time: [id number] FASTING:NO CULTURE, URINE, ROUTINE SEE NOTE (Abnormal) Comments: CULTURE, URINE, ROUTINE MICRO NUMBER: [id number] TEST STATUS: FINAL SPECIMEN SOURCE : URINE [...] Chapito Muro On 29-Sep-2016 11:45 Appointment; Provider: Ry Maurer M.D. On 27-Aug-2016 09:00 Instructions Name Dates Details Instructions not [...]
--- OUTSIDE RECORDS SUMMARY | 2017-02-26 16:28 | XMS REPORT | Summary of Care ---
Author Author Krunal Lennon M.D. Organization Unknown Address Unknown Phone Unavailable Care Team Providers Care Housekeeping Director Name Role Phone Cece Streeter M.D. Unavailable [...] Urinary tract infection (599.0, N39.0) Status: Active Medications Name Dates Details Multi-Day [...] 11 Ferdinand Hammonds, Stefan Zhao * Start 23-Nov-2012 Active Potassium [...] week apart * Quantity: 34 Refills: 0 Saji Hammonds Krunal * Start 15-Jul-2016 Active Digoxin 125 MCG Oral Tablet Take one tablet by mouth daily * Quantity: 30 Refills: 1 Chapito Muro * Start 09-Jul-2016 Active DULoxetine HCl - 60 MG Oral Capsule Delayed Release Particles TAKE 1 CAPSULE AT BEDTIME. * Quantity: 30 Refills: 5 Chapito Muro * Start 10-Oct-2013 Active Ciprofloxacin HCl - 500 MG Oral Tablet TAKE 1 TABLET TWICE DAILY. * Quantity: 14 Refills: 0 Chapito Muro * Start 18-Aug-2016 End 25-Aug-2016 Active Allergies and Adverse Reactions Name Dates [...] of Aortic Valve Replacement RENAL PROFILE 1240 Ordered: 06-Aug-2016 CBC w/ Auto Diff 7150 Ordered: 06-Aug-2016 Immunization Name Dates Details Influenza Lot #: [id number] on: 02-Aug-2010 Influenza Lot #: [id number] on: 24-Aug-2012 Pneumo (Pneumovax) Lot #: [id number] on: 24-Aug-2012 Fluzone High-Dose 0.5 ML Intramuscular Suspension Prefilled Syringe Lot #: [id number] on: 25-Jul-2015 Tdap (Adacel) Lot #: [id number] on: 05-Nov-2015 Family History Name Dates Details [...] to report Results Date Description Value Details 24-Jul-2016 11:40 LDH 1140 LDH 430 U/L (Above high threshold) Range: 81-234 11:40 MAGNESIUM 1260 MAGNESIUM 1.9 mg/dL Range: 1.8-2.4 11:49 Comprehensive Metabolic Panel 1212 SODIUM 143 mmol/L Range: 133-144 POTASSIUM 3.9 mmol/L Range: 3.5-5.1 CHLORIDE 110 mmol/L Range: 98-110 CARBON DIOXIDE 30.7 mmol/L Range: 23.0-33.0 ANION GAP 2 mmol/L (Below low threshold) Range: 6-16 BUN 27 mg/dL (Above high threshold) Range: 7-18 CREATININE, SERUM 1.32 mg/dL (Above high threshold) Range: 0.55-1.02 BUN:CREATININE RATIO 20 EST GFR, 46 ml/min (Below low threshold) Range: >60 EST GFR, NON-AFR BOLIVIAN 38 ml/min (Below low threshold) Range: >60 Comments: EST GFR is reported in ml/min per 1.73 m2 of body surface area. ----- GLUCOSE 99 mg/dL Range: 70-100 ALK PHOSPHATASE 83 U/L Range: 46-116 TOTAL BILIRUBIN 0.40 mg/dL Range: 0.20-1.00 AST 30 U/L Range: 8-35 ALT 24 U/L Range: 14-59 ALBUMIN 2.9 g/dL (Below low threshold) Range: 3.4-5.0 TOTAL PROTEIN 5.4 g/dL (Below low threshold) Range: 6.4-8.2 A/G RATIO 1.2 units Range: 1.0-1.8 CALCIUM 8.1 mg/dL (Below low threshold) Range: 8.5-10.1 14:46 CBC w/ Auto Diff 7150 Comments: ORDER IS IN OFFICE; COPY TO [facility] ( CC'D)Manual differential indicated. WBC 16.1 K/uL (Above high threshold) Range: 4.5-11.0 RBC 2.60 mil/uL (Below low threshold) Range: 3.60-5.00 HGB 8.3 g/dL (Below low threshold) Range: 12.0-16.0 HCT 26.7 % (Below low threshold) Range: 36.0-48.0 MCV 102.8 fL (Above high threshold) Range: 80.0-99.0 MCH 31.8 pg Range: 27.3-32.5 MCHC 30.9 % (Below low threshold) Range: 32.0-36.0 RDW 24.4 % (Above high threshold) Range: 11.6-14.8 PLATELETS 199 K/uL Range: 150-400 MPV 8.4 fL Range: 6.0-11.0 %NEUTRO 84.2 % (Above high threshold) Range: 37.0-80.0 %LYMPHS 8.6 % (Below low threshold) Range: 13.0-50.0 %MONO 3.6 % Range: 0.0-12.0 %EOS 2.1 % Range: 0.0-7.0 %BASO 0.2 % Range: 0.0-2.5 %HALIMA 1.3 % Range: 0.0-5.0 NEUTRO 13.6 K/uL (Above high threshold) Range: 2.0-6.9 LYMPHS 1.4 K/uL Range: 0.6-3.4 MONOS 0.6 K/uL Range: 0.0-0.9 EOS 0.3 K/uL Range: 0.0-0.7 BASO 0.0 K/uL Range: 0.0-0.2 15:01 Manual Differential 7400 Comments: ORDER IS IN OFFICE; COPY TO [facility] (CC'D) SEGS 78 % Range: 37-80 BANDS 0 % Range: 0-7 LYMPH 8 % (Below low threshold) Range: 13-50 MONO 10 % Range: 0-12 EOSIN 4 % Range: 0-7 BASO 0 % Range: 0-3 JA LYMPH 0 % Range: 0-0 META 0 % Range: 0-0 MYELO 0 % Range: 0-0 PRO 0 % Range: 0-0 BLAST 0 % Range: 0-0 NUC RBC 0 /100 WBC Range: 0-0 SMUDGE 0 /100 WBC PLATELET Adequate Range: Adequate ANISO Marked MACROCYT Slight HYPOCHRO Marked POLYCHRO Mod T[employer] Present OVAL Present TEAR Present 26-Jul-2016 08:47 VIVIAN PE and FLC Serum [id number] Comments: Testing performed at : [DA] [facility], [address] [place] [address], [place], [address], , Paid Internship: KEILA Carranza MD IMMUNOGLOBULIN G, QN, SERUM 294 mg/dL (Below low threshold) Range: 700- 1600 IMMUNOGLOBULIN A, QN, SERUM 21 mg/dL (Below low threshold) Range: 64-422 IMMUNOGLOBULIN M, QN, SERUM <5 mg/dL (Below low threshold) Range: 26-217 Comments: Verified by repeat analysis----- PROTEIN, TOTAL, SERUM 5.2 g/dL (Below low threshold) Range: 6.0-8.5 ALBUMIN 3.0 g/dL Range: 2.9-4.4 FRGNK-2-MDBIVJKT 0.4 g/dL Range: 0.0-0.4 AYCAK-3-RQKSOMUR 0.7 g/dL Range: 0.4-1.0 BETA GLOBULIN 0.8 g/dL Range: 0.7-1.3 GAMMA GLOBULIN 0.3 g/dL (Below low threshold) Range: 0.4-1.8 M-SPIKE Not Observed g/dL Range: Not Observed GLOBULIN, TOTAL 2.2 g/dL Range: 2.2-3.9 A/G RATIO 1.4 Range: 0.7-1.7 IMMUNOFIXATION RESULT, SERUM Comment Comments: An apparent normal immunofixation pattern.----- PLEASE NOTE: Comment Comments: Protein electrophoresis scan will follow via computer,mail, or remotely operated vehicle delivery.----- FREE KAPPA LT CHAINS,S 11.69 mg/L Range: 3.30-19.40 FREE LAMBDA LT CHAINS,S 8.91 mg/L Range: 5.71-26.30 KAPPA/LAMBDA RATIO,S 1.31 Range: 0.26-1.65 15-Aug-2016 12:06 Urinalysis, Reflex to Microscopic or [...] /HPF Range: 0-10 18-Aug-2016 10:59 URINE CULTURE [id number] Comments: [employer] [facility] at: [facility], [address] [place], [address], Paid Internship: Gigi Alberto D.O., MPHQuest Collection Date/Time: [id number] Results Received Date/Time: [id number] Reported Date/Time: [id number] FASTING:NOQuest performed at: [facility], [address] [place], [address], Paid Internship: Gigi Alberto D.O., MPH[facility] Collection Date/Time: [id number] Results Received Date/Time: [id number] Reported Date/Time: [id number] FASTING:NOQuest performed at: [facility], [address] [place], [address], Paid Internship: Gigi Alberto D.O., MPH[facility] Collection Date/Time: [id number] Results Received Date/Time: [id number] Reported Date/Time: [id number] FASTING:NO CULTURE, URINE, ROUTINE SEE NOTE (Abnormal) Comments: CULTURE, URINE, ROUTINE MICRO NUMBER: [id number] TEST STATUS: FINAL SPECIMEN SOURCE : URINE [...] indicates resistance to parenteral cefazolin. An alt----- Plan of Care Name Dates Details Planned Observations Planned Goals not documented Planned Encounters Appointment; Provider: Chapito Muro On 25-Aug-2016 15:30 Appointment; Provider: Stefan Streeter M.D. On 25-Aug-2016 13:15 Appointment; Provider: Krunal Lennon M.D. On 18-Aug-2016 14:30 Instructions Name Dates Details Instructions not documented [...]
--- OUTSIDE RECORDS SUMMARY | 2017-02-26 16:28 | XMS REPORT | Summary of Care ---
Author Author Chapito Muro Organization Unknown Address [address] [place], [place] [id number] Phone Unavailable Care Team Providers Care Fur Finisher Name Role Phone Ferdinand Hammonds, Cece Unavailable [...] AT BEDTIME. * Quantity: 90 Refills: 3 Bhaskar Chapito * Start 31-Aug-2009 Active Oxygen 2 LPM [...] Delayed Release * Refills: 0 Reji Hammonds TLinda Tariq * Start 05-Jul-2013 Active Mirtazapine 45 MG [...] Stefan Streeter M.D. * Start 04-Dec-2014 Active Potassium Chloride Summer ER 10 MEQ [...] Immunization Name Dates Details Influenza Lot #: [id number] on: 02-Aug-2010 Influenza Lot #: [id number] on: 24-Aug-2012 Pneumo (Pneumovax) Lot #: [id number] on: 24-Aug-2012 Fluzone High-Dose 0.5 ML Intramuscular Suspension Prefilled Syringe Lot #: [id number] on: 25-Jul-2015 Tdap (Adacel) Lot #: [id number] on: 05-Nov-2015 Fluzone High-Dose 0.5 ML Intramuscular Suspension Prefilled Syringe Lot #: [id number] on: 02-Sep-2016 Family History Name Dates Details [...] m2 Status: Results Date Description Value Details 19-Nov-2016 15:00 ECG/ EKG (Specialists) Electro CardioGram [...] >60 ml/min Range: >60 EST GFR, NON-AFR [place] 50 ml/min (Below low threshold) Range: >60 Comments: EST GFR is reported in ml/min per 1.73 m2 of body surface area. ----- BUN:CREATININE RATIO 37 GLUCOSE 98 mg/dL Range: 70-100 CALCIUM 8.5 mg/dL Range: 8.5-10.1 15:41 TROPONIN I 3451 TROPONIN I <0.04 ng/mL Range: .09 Comments: Called to LaurieVerified by Repeat Analysis<0.10 ng/ml=Negative for MI0.10-0.59 ng/ml=Indeterminate for MI0.60-1.50 ng/ml=Suggestive of [place]----- 15:43 CT AB/ PEL WITHOUT IV CONTRAST [...] /HPF Range: 0-10 21-Nov-2016 14:34 URINE CULTURE [id number] Comments: [employer] performed at: [facility], [address], Alarm Installer: Gigi Alberto D.O., MPHQuest Collection Date/Time: [id number] Results Received Date/Time: [id number] Reported Date/Time: [id number] FASTING:NOQuest performed at: [facility], [address] [place] [address], [address], Alarm Installer: Gigi Alberto D.O., MPHQuest Collection Date/Time: [id number] Results Received Date/Time: [id number] Reported Date/Time: FASTING:NO CULTURE, URINE, ROUTINE SEE NOTE (Abnormal) Comments: CULTURE, URINE, ROUTINE MICRO NUMBER: [id number] TEST STATUS: FINAL SPECIMEN SOURCE : URINE [...] low threshold) Range: >60 EST GFR, NON-AFR [place] 35 ml/min (Below low threshold) Range: >60 [...] Range: 0-2 EPITH 0-2 /HPF Range: 0-10 -Nov-2016 13:21 Haptoglobin [id number] Comments: ORDER IN BOOK UNDER NOVEMBER 2016Testing performed at: [DA] [facility] [address] [address], [place], [address], , Alarm Installer: KEILA Carranza MD HAPTOGLOBIN 115 mg/dL Range: 34-200 17:01 VIVIAN PE and FLC Serum [id number] Comments: ORDER IN BOOK UNDER NOVEMBER 2016Testing performed at: [DA] [facility] [address] [address], [place], [address], , Alarm Installer: KEILA Carranza MD IMMUNOGLOBULIN G, QN, SERUM 949 mg/dL Range: 700-1600 IMMUNOGLOBULIN A, QN, SERUM 64 mg/dL Range: 64-422 IMMUNOGLOBULIN M, QN, SERUM 33 mg/dL Range: 26-217 PROTEIN, TOTAL, SERUM 5.9 g/dL (Below low threshold) Range: 6.0-8.5 ALBUMIN 2.9 g/dL Range: 2.9-4.4 RBYXK-8-KIYBJVDJ 0.4 g/dL Range: 0.0-0.4 MFEZX-4-DVVFWCJH 0.8 g/dL Range: 0.4-1.0 BETA GLOBULIN 0.9 g/dL Range: 0.7-1.3 GAMMA GLOBULIN 0.9 g/dL Range: 0.4-1.8 M-SPIKE Not Observed g/dL Range: Not Observed GLOBULIN, TOTAL 3.0 g/dL Range: 2.2-3.9 A/G RATIO 1.0 Range: 0.7-1.7 IMMUNOFIXATION RESULT, SERUM Comment Comments: An apparent normal immunofixation pattern.----- PLEASE NOTE: Comment Comments: Protein electrophoresis scan will follow via computer,mail, or sheeter operator delivery.----- FREE KAPPA LT CHAINS,S 17.05 mg/L Range: 3.30-19.40 FREE LAMBDA LT CHAINS,S 23.20 mg/L Range: 5.71-26.30 KAPPA/LAMBDA RATIO,S 0.73 Range: 0.26-1.65 04-Dec-2016 08:31 URINE CULTURE [id number] Comments: [employer] [facility] at: [facility] [address] [place], [address], Alarm Installer: Gigi Alberto D.O., MPHQuest Collection Date/Time: [id number] Results Received Date/Time: [id number] Reported Date/Time: FASTING:NOQuest performed at: [facility], [address] [place], [address], Alarm Installer: Gigi Alberto D.O., MPHQuest Collection Date/Time: [id number] Results Received Date/Time: [id number] Reported Date/Time: FASTING:NO CULTURE, URINE, ROUTINE SEE NOTE (Abnormal) Comments: CULTURE, URINE, ROUTINE MICRO NUMBER: [id number] TEST STATUS: FINAL SPECIMEN SOURCE : URINE [...] Provider: Krunal Lennon M.D. On 30-Dec-2016 13:30 Instructions Name Dates Details Instructions not [...]
--- OUTSIDE RECORDS SUMMARY | 2017-02-26 16:28 | XMS REPORT | Summary of Care ---
Author Author Chapito Muro Organization Unknown Address [address] [place] [id number] Phone Unavailable Care Team Providers Care Joint Special Operations Name Role Phone Cece Streeter M.D. Unavailable [...] Status: Active Hyperlipidemia (272.4, E78.5) Status: Active Asthma (493.90, J45.909) Status: Active Presence of cardiac resynchronization therapy [...] (401.9, I10) Status: Active CKD (chronic kidney disease), stage [...] cuff syndrome, right (726.10, M75.101) Status: Active Hypertension (401.9, I10) Status: Active Hypercholesteremia (272.0, E78.0) Status: Active Congestive heart failure (428.0, I50.9) Status: Active Chronic kidney disease, stage III (moderate) (585.3, N18.3) Status: Active Chronic obstructive pulmonary disease (496, J44.9) Status: Active Osteoporosis (733.00, M81.0) Status: Active Hip pain, acute, right (719.45, M25.551) Status: Active Medications Name Dates Details Multi-Day Vitamins Oral Tablet I po qd * Started 07-Jun-2009 ActiveROPINIRole HCl - 2 MG Oral Tablet TAKE 1 TABLET AT BEDTIME. * Refills: 0 Chapito Muro * Started 31-Aug-2009 ActiveOxygen 2 LPM 24 HOURS A DAY MAY TITRATE UP FOR DYSPNEA * Refills: 0 * Started ActiveAdult Aspirin EC Low Strength 81 MG Oral Tablet Delayed Release * Refills: 0 Henry Mendoza M.D.* Started 05-Jul-2013 ActiveMirtazapine 45 MG Oral Tablet TAKE 1/2 TABLET DAILY * Refills: 0 Sourk, Stefan M.D.* Started 10-Oct-2013 ActiveVentolin HFA 108 (90 [...] 3101 Ordered:31-Dec-2015 XRay CHEST-PA & LAT Ordered:23-Jan-2016 XRay HIP-Right Ordered:06-Feb-2016 Immunization Name Dates Details Influenza Lot #: [id number] Administered on:02-Aug-2010 Influenza Lot #: [id number] Administered on:24-Aug-2012 Pneumo (Pneumovax) Lot #: [id number] Administered on:24-Aug-2012 Fluzone High-Dose 0.5 ML Intramuscular Suspension Prefilled Syringe Lot #: [id number] Administered on:25-Jul-2015 Tdap (Adacel) Lot #: [id number] Administered on:05-Nov-2015 Family History natural son* Name [...] smoker Vital Signs Date Test Result Details 06-Feb-2016 13:23 BP Systolic 140 mm[Hg] Status: BP Diastolic 86 mm[Hg] Status: Heart Rate 63 /min Status: Respiration Rate 20 /min Status: Height 63 in Status: Weight 128.5 lb Status: O2 SAT 95 % Status: FiO2 flow rate 2 L/min Status: Body Mass Index Calculated 22.76 kg/m2 Status: Body Surface Area Calculated 1.6 m2 Status: 31-Jan-2016 13:24 BP Systolic 140 mm[Hg] Status: [...] low threshold) Range: >60 EST GFR, NON-AFR WELSH 44 ml/min (Below low threshold) Range: >60 Comments: EST GFR is reported in ml/min per 1.73 m2 of body surface area. For -Bhutanese, please multiple result by 1.2.----- GLUCOSE 108 [...] 15:15 * Appointment; Provider: Schedule Radiology On 16-Jan-2016 [...]
--- OUTSIDE RECORDS SUMMARY | 2017-02-26 16:29 | XMS REPORT ---
Author Author GENERATED, SYSTEM Organization Unknown Address Unknown Phone Unavailable Care Team Providers Care Russian Language Instructor Name Role Phone MD YEHUDA, CHINO PP [phone] Reason For Visit Reason for Visit from 11/20/2014 11:00 AM:* Pt Stated Reason for Adm : IVIG infusion Chief Complaint CVIDS Social History Functional Status Functional Status from 11/20/2014 11:00 AM:* LOC : Alert * Oriented To : Person,Place,Time,Event Vital Signs Hospital Vital Signs from 11/20/2014 3:15 PM:* Height : 5/0 ft,in * Pulse : 79 * Respirations : 18 * BP : 146/81 Hospital Vital Signs from 11/20/2014 3:00 PM:* Height : 5/0 ft,in * Pulse : 78 * Respirations : 18 * BP : 139/84 Hospital Vital Signs from 11/20/2014 2:45 PM:* Height : 5/0 ft,in * Pulse : 79 * Respirations : 18 * BP : 143/86 Hospital Vital Signs from 11/20/2014 2:30 PM:* Height : 5/0 ft,in * Pulse : 80 * Respirations : 18 * BP : 145/81 Hospital Vital Signs from 11/20/2014 2:15 PM:* Height : 5/0 ft,in * Pulse : 80 * Respirations : 18 * BP : 137/71 Hospital Vital Signs from 11/20/2014 2:00 PM:* Height : 5/0 ft,in * Pulse : 82 * Respirations : 18 * BP : 154/71 Hospital Vital Signs from 11/20/2014 1:45 PM:* Height : 5/0 ft,in * Pulse : 82 * Respirations : 18 * BP : 136/81 Hospital Vital Signs from 11/20/2014 1:30 PM:* Height : 5/0 ft,in * Pulse : 53 * Respirations : 18 * BP : 158/91 Hospital Vital Signs from 11/20/2014 1:15 PM:* Height : 5/0 ft,in * Pulse : 80 * Respirations : 18 * BP : 155/86 Hospital Vital Signs from 11/20/2014 1:00 PM:* Height : 5/0 ft,in * Pulse : 80 * Respirations : 18 * BP : 125/88 Hospital Vital Signs from 11/20/2014 12:45 PM:* Height : 5/0 ft,in * Pulse : 77 * Respirations : 18 * BP : 149/86 Hospital Vital Signs from 11/20/2014 12:30 PM:* Height : 5/0 ft,in * Pulse : 80 * Respirations : 18 * BP : 150/74 Hospital Vital Signs from 11/20/2014 12:15 PM:* Height : 5/0 ft,in * Pulse : 80 * Respirations : 18 * BP : 158/92 Hospital Vital Signs from 11/20/2014 12:00 PM:* Height : 5/0 ft,in * Temperature : 98.1 F * Pulse : 83 * Respirations : 18 * BP : 149/82 Results Chemistry from 11/20/2014 11:37 AMCREATININE 0.98 MG/DL H (0.43-0.83 MG/DL) GFR EST NON AFR TOGOLESE 53 ML/MIN GFRA EST AFR AMER 62 ML/MIN Problems Encounter Diagnosis No relevant problems [...]
--- OUTSIDE RECORDS SUMMARY | 2017-02-26 16:29 | XMS REPORT | Summary of Care ---
Author Author Stuart Blancas M.D. Organization Unknown Address [address], [place] [id number] Phone Unavailable Care Team Providers Care Cane Loader Name Role Phone Ferdinand Hammonds, Cece Unavailable Unavailable Chapito Muro Unavailable Unavailable Reji Hammonds, T. KLinda Unavailable Unavailable Sony Mruo PP Unavailable Unavailable Unavailable Functional Status Functional [...] pain, acute, right (719.45, M25.551) Status: Active Acute right lower quadrant pain (789.03, R10.31) Status: Active Hypertension (401.9, I10) Status: Active [...] of left shoulder (715.11, 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 Osteoporosis (733.00, M81.0) Status: Active Hypothyroidism (244.9, E03.9) Status: Active Hyperlipidemia (272.4, E78.5) Status: Active Abdominal pain (789.00, R10.9) Status: Active Leukocytosis (288.60, D72.829) Status: Active Dehydration, mild (276.51, E86.0) Status: Active Elevated brain natriuretic peptide (BNP) level (790.99, R79.89) Status: Active Medications Name Dates Details Multi-Day [...] Refills: 11 Stefan Streeter M.D.* Started 23-Nov-2012 ActiveDULoxetine HCl - 60 MG Oral Capsule [...] Refills: 11 Stefan Streeter M.D.* Started 01-Nov-2015 ActiveLORazepam 0.5 MG Oral Tablet TAKE 1 [...] Immunization Name Dates Details Influenza Lot #: [id number] Administered on:02-Aug-2010 Influenza Lot #: [id number] Administered on:24-Aug-2012 Pneumo (Pneumovax) Lot #: [id number] Administered on:24-Aug-2012 Fluzone High-Dose 0.5 ML Intramuscular Suspension Prefilled Syringe Lot #: [id number] Administered on:25-Jul-2015 Tdap (Adacel) Lot #: [id number] Administered on:05-Nov-2015 Family History natural son* Name [...] smoker Vital Signs Date Test Result Details 20-Feb-2016 16:24 BP Systolic 118 mm[Hg] Status: BP Diastolic 88 mm[Hg] Status: Temperature 98.1 f Status: Heart Rate 64 /min Status: O2 SAT 98 % Status: FiO2 flow rate 2 L/min Status: 06-Feb-2016 13:23 BP Systolic 140 mm[Hg] Status: [...] m2 Status: Results Date Description Value Details 31-Jan-2016 13:26 XRay CHEST-PA & LAT Comments: Exam Date: 01/31/2016 12: 51Dictation Date: 01/31/2016 13:26 X CHEST PA & LAT (Better) 06-Feb-2016 15:04 XRay HIP-Right Comments: Exam Date: 02/06/2016 13: 59Dictation Date: 02/06/2016 15:04 X HIP COMP (MIN 2V) RT (Better) 19-Feb-2016 12:23 CBC w/ Auto Diff 7150 WBC 12.0 K/uL (Above high threshold) Range: 4.5-11.0 RBC 3.12 mil/uL (Below low threshold) Range: 3.60-5.00 HGB 10.9 g/dL (Below low threshold) Range: 12.0-16.0 HCT 34.1 % (Below low threshold) Range: 36.0-48.0 MCV 109.1 fL (Above high threshold) Range: 80.0-99.0 MCH 35.0 pg (Above high threshold) Range: 27.3-32.5 MCHC 32.1 % (Better) Range: 32.0-36.0 RDW 15.4 % (Above high threshold) Range: 11.6-14.8 PLATELETS 182 K/uL (Better) Range: 150-400 MPV 10.2 fL (Better) Range: 6.0-11.0 %NEUTRO 69.8 % (Better) Range: 37.0-80.0 %LYMPHS 20.8 % (Better) Range: 13.0-50.0 %MONO 5.5 % (Better) Range: 0.0-12.0 %EOS 2.4 % (Better) Range: 0.0-7.0 %BASO 0.4 % (Better) Range: 0.0-2.5 %HALIMA 1.1 % (Better) Range: 0.0-5.0 NEUTRO 8.4 K/uL (Above high threshold) Range: 2.0-6.9 LYMPHS 2.5 K/uL (Better) Range: 0.6-3.4 MONOS 0.7 K/uL (Better) Range: 0.0-0.9 EOS 0.3 K/uL (Better) Range: 0.0-0.7 BASO 0.0 K/uL (Better) Range: 0.0-0.2 12:27 Comprehensive Metabolic Panel 1212 SODIUM 140 mmol/L (Better) Range: 133-144 POTASSIUM 3.8 mmol/L (Better) Range: 3.5-5.1 CHLORIDE 102 mmol/L (Better) Range: 98-110 CARBON DIOXIDE 33.2 mmol/L (Above high threshold) Range: 23.0-33.0 ANION GAP 5 mmol/L (Below low threshold) Range: 6-16 BUN 28 mg/dL (Above high threshold) Range: 7-18 CREATININE, SERUM 1.18 mg/dL (Above high threshold) Range: 0.55-1.02 Comments: Please note new reference ranges effective 2015.----- BUN:CREATININE RATIO 24 (Better) EST GFR, 53 ml/min (Below low threshold) Range: >60 EST GFR, NON-AFR ALGERIAN 44 ml/min (Below low threshold) Range: >60 Comments: EST GFR is reported in ml/min per 1.73 m2 of body surface area. For -Angolan, please multiple result by 1.2.----- GLUCOSE 98 mg/dL (Better) Range: 70-100 ALK PHOSPHATASE 95 U/L (Better) Range: 46-116 TOTAL BILIRUBIN 0.30 mg/dL (Better) Range: 0.20-1.00 AST 34 U/L (Better) Range: 8-35 ALT 30 U/L (Better) Range: 14-59 Comments: Please note new reference ranges. Effective 01/04/2015.----- ALBUMIN 3.0 g/dL (Below low threshold) Range: 3.4-5.0 TOTAL PROTEIN 6.8 g/dL (Better) Range: 6.4-8.2 A/G RATIO 0.8 units (Below low threshold) Range: 1.0-1.8 CALCIUM 8.8 mg/dL (Better) Range: 8.5-10.1 12:27 LDH 1140 LDH 365 U/L (Above high threshold) Range: 81-234 12:45 THYROID STIM. HORMONE 3602 THYROID STIM. HORMONE 4.537 uIU/mL (Better) Range: 0.550-4.780 Comments: No established reference ranges for infants and children <2 years of age----- 20-Feb-2016 17:00 CBC w/ Auto Diff 7150 WBC 13.6 K/uL (Above high threshold) Range: 4.5-11.0 RBC 3.23 mil/uL (Below low threshold) Range: 3.60-5.00 HGB 11.2 g/dL (Below low threshold) Range: 12.0-16.0 HCT 35.4 % (Below low threshold) Range: 36.0-48.0 MCV 109.4 fL (Above high threshold) Range: 80.0-99.0 MCH 34.6 pg (Above high threshold) Range: 27.3-32.5 MCHC 31.6 % (Below low threshold) Range: 32.0-36.0 RDW 15.3 % (Above high threshold) Range: 11.6-14.8 PLATELETS 189 K/uL (Better) Range: 150-400 MPV 9.4 fL (Better) Range: 6.0-11.0 %NEUTRO 73.0 % (Better) Range: 37.0-80.0 %LYMPHS 18.6 % (Better) Range: 13.0-50.0 %MONO 4.0 % (Better) Range: 0.0-12.0 %EOS 2.8 % (Better) Range: 0.0-7.0 %BASO 0.5 % (Better) Range: 0.0-2.5 %HALIMA 1.1 % (Better) Range: 0.0-5.0 NEUTRO 9.9 K/uL (Above high threshold) Range: 2.0-6.9 LYMPHS 2.5 K/uL (Better) Range: 0.6-3.4 MONOS 0.5 K/uL (Better) Range: 0.0-0.9 EOS 0.4 K/uL (Better) Range: 0.0-0.7 BASO 0.1 K/uL (Better) Range: 0.0-0.2 17:08 XRay CHEST-PA & LAT Comments: Exam Date: 02/20/2016 16: 46Dictation Date: 02/20/2016 17:08 X CHEST PA & LAT (Better) 17:14 Urinalysis, Reflex to Microscopic or Culture PRN 8005 pH 5.0 (Better) Range: 5.0-7.5 SP GRAVITY 1.020 (Better) Range: 1.010-1.030 APPEARANCE CLEAR (Better) Range: Clear COLOR YELLOW (Better) Range: Straw-Yellow PROTEIN >=300 mg/dL (Abnormal) Range: Negative-Trace GLUCOSE NEGATIVE mg/dL (Better) Range: Negative KETONE NEGATIVE mg/dL (Better) Range: Negative BILIRUB NEGATIVE (Better) Range: Negative BLOOD NEGATIVE (Better) Range: Negative UROBIL 0.2 EU/dL (Better) Range: 0.2-1.0 NITRITE NEGATIVE (Better) Range: Negative LEUK NEGATIVE (Better) Range: Negative 17:14 Urine Microscopic UMIC WBC 0-2 /HPF (Better) Range: 0-5 HYAL CAST 3-5 /LPF (Abnormal) Range: 0-2 MUCUS 2+ /LPF (Better) Range: Negative-2+ EPITH 0-2 /HPF (Better) Range: 0-10 17:17 BNP 3103 BNP 253.6 pg/mL (Above high threshold) Range: 0.0-100.0 17:27 AMYLASE 1250 AMYLASE 176 U/L (Above high threshold) Range: 25-115 17:27 Comprehensive Metabolic Panel 1212 SODIUM 143 mmol/L (Better) Range: 133-144 POTASSIUM 4.1 mmol/L (Better) Range: 3.5-5.1 CHLORIDE 105 mmol/L (Better) Range: 98-110 CARBON DIOXIDE 31.9 mmol/L (Better) Range: 23.0-33.0 ANION GAP 6 mmol/L (Better) Range: 6-16 BUN 43 mg/dL (Above high threshold) Range: 7-18 Comments: Variance from previous testing noted.----- CREATININE, SERUM 1.52 mg/dL (Above high threshold) Range: 0.55-1.02 Comments: Please note new reference ranges effective 2015.----- BUN:CREATININE RATIO 28 (Better) EST GFR, 39 ml/min (Below low threshold) Range: >60 EST GFR, NON-AFR ALGERIAN 33 ml/min (Below low threshold) Range: >60 Comments: EST GFR is reported in ml/min per 1.73 m2 of body surface area. For -Angolan, please multiple result by 1.2.----- GLUCOSE 110 mg/dL (Above high threshold) Range: 70-100 ALK PHOSPHATASE 98 U/L (Better) Range: 46-116 TOTAL BILIRUBIN 0.20 mg/dL (Better) Range: 0.20-1.00 AST 32 U/L (Better) Range: 8-35 ALT 27 U/L (Better) Range: 14-59 Comments: Please note new reference ranges. Effective 01/04/2015.----- ALBUMIN 3.0 g/dL (Below low threshold) Range: 3.4-5.0 TOTAL PROTEIN 6.9 g/dL (Better) Range: 6.4-8.2 A/G RATIO 0.8 units (Below low threshold) Range: 1.0-1.8 CALCIUM 8.6 mg/dL (Better) Range: 8.5-10.1 17:27 Lipase 1275 LIPASE 357 U/L (Better) Range: 73-393 17:30 CT AB/ PEL WITH IV AND ORAL CONTRAST Comments: Exam Date: 2015 16:48Dictation Date: 02/20/2016 17:30 XC AB/PEL 45 MIN PREP (Better) Plan of Care Planned Observations* Name [...] Instructions * Instructions not documented Encounters Appointment; Stuart Blancas Encounter Diagnosis: Problem not [...]
--- OUTSIDE RECORDS SUMMARY | 2017-02-26 16:29 | XMS REPORT ---
Author Author GENERATED, SYSTEM Organization Unknown Address Unknown Phone Unavailable Care Team Providers Care Pallet Repairer Name Role Phone MD CORTEZ, [facility] [phone] Reason For Visit Reason for Visit from 04/03/2016 10:05 AM:* Pt Stated Reason for Adm : IVIG infusion Chief Complaint D83.8 Social History Functional Status Functional Status from 04/03/2016 10:05 AM:* LOC : Alert * Oriented To : Person,Place,Time,Event Vital Signs Hospital Vital Signs from 04/03/2016 2:27 PM:* Height : 5/1 ft,in * Pulse : 59 * Respirations : 18 * BP : 127/60 Hospital Vital Signs from 04/03/2016 2:12 PM:* Height : 5/1 ft,in * Pulse : 60 * Respirations : 18 * BP : 110/61 Hospital Vital Signs from 04/03/2016 1:57 PM:* Height : 5/1 ft,in * Pulse : 60 * Respirations : 18 * BP : 155/63 Hospital Vital Signs from 04/03/2016 1:41 PM:* Height : 5/1 ft,in * Pulse : 60 * Respirations : 18 * BP : 117/54 Hospital Vital Signs from 04/03/2016 1:27 PM:* Height : 5/1 ft,in * Pulse : 61 * Respirations : 18 * BP : 147/62 Hospital Vital Signs from 04/03/2016 1:11 PM:* Height : 5/1 ft,in * Pulse : 60 * Respirations : 18 * BP : 140/65 Hospital Vital Signs from 04/03/2016 12:56 PM:* Height : 5/1 ft,in * Pulse : 60 * Respirations : 18 * BP : 143/67 Hospital Vital Signs from 04/03/2016 12:41 PM:* Height : 5/1 ft,in * Pulse : 60 * Respirations : 18 * BP : 143/76 Hospital Vital Signs from 04/03/2016 12:28 PM:* Height : 5/1 ft,in * Pulse : 59 * Respirations : 18 * BP : 149/69 Hospital Vital Signs from 04/03/2016 12:12 PM:* Height : 5/1 ft,in * Pulse : 62 * Respirations : 18 * BP : 154/100 Hospital Vital Signs from 04/03/2016 11:56 AM:* Height : 5/1 ft,in * Pulse : 60 * Respirations : 18 * BP : 162/77 Hospital Vital Signs from 04/03/2016 11:44 AM:* Height : 5/1 ft,in * Pulse : 65 * Respirations : 18 * BP : 158/72 Hospital Vital Signs from 04/03/2016 11:25 AM:* Height : 5/1 ft,in * Pulse : 59 * Respirations : 18 * BP : 171/79 Hospital Vital Signs from 04/03/2016 10:05 AM:* Weight : 120/ lbs,oz * Height : 5/1 ft,in * Height : 5/1 ft,in * Temperature : 97.7 F * Pulse : 59 * Respirations : 18 * BP : 151/72 Results Blood Gas from 04/16/2016 1:14 PM*VENOUS PH 7.370 (7.320-7.430 ) VENOUS PCO2 68.5 MM HG HH (38.0-50.0 MM HG) *VENOUS PO2 43 MM HG H (38-42 MM HG) *VENOUS TCO2 36.6 mmol/L H (23.0-30.0 mmol/L) FABIAN. BICARBONATE 38.7 MEQ/L H (22.0-29.0 MEQ/L) *FABIAN. BASE EXCESS 11.8 H (-3.0-3.0 ) FABIAN. O2 SATURATION 75.5 % (70.0-80.0 %) PATIENT ATMOSPHERE 2 LITERS Chemistry from 04/16/2016 1:14 PMSODIUM 142 MMOL/L (136-145 MMOL/L) POTASSIUM 3.2 MMOL/L L (3.5-5.1 MMOL/L) CHLORIDE 99 MMOL/L (98-107 MMOL/L) TCO2 41.7 MMOL/L HH (21.0-32.0 MMOL/L) *ANION GAP 1.3 MMOL/L L (8.0-16.0 MMOL/L) BUN 21 MG/DL H (7-18 MG/DL) CREATININE 1.15 MG/DL H (0.55-1.02 MG/DL) *BUN/CREATININE RATIO 18.3 H (9.1-17.0 ) GLUCOSE 98 MG/DL (65-99 MG/DL) *GFR EST NON AFR [facility] HELENIAN 43 ML/MIN *GFRA EST AFR AMER 50 ML/MIN CALCIUM 8.9 MG/DL (8.5-10.1 MG/DL) BILIRUBIN TOTAL 0.30 MG/DL (0.20-1.00 MG/DL) TOTAL PROTEIN 6.6 GM/DL (6.4-8.2 GM/DL) ALBUMIN 2.9 GM/DL L (3.4-5.0 GM/DL) *GLOBULIN 3.7 GM/DL H (2.3-3.5 GM/DL) *A/G RATIO 0.8 MG/DL L (1.5-2.2 MG/DL) ALK PHOS 79 U/L (46-116 U/L) ALT (SGPT) 17 U/L (16-63 U/L) AST (SGOT) 28 U/L (15-37 U/L) TROPONIN-I 0.026 NG/ML (0.000-0.056 NG/ML) B-TYPE NATRIURETIC PROTEIN 320 PG/ML H (1-100 PG/ML) Chemistry from 04/03/2016 10:25 AMCREATININE 1.22 MG/DL H (0.55-1.02 MG/DL) *GFR EST NON AFR [facility] HELENIAN 40 ML/MIN *GFRA EST AFR AMER 47 ML/MIN Hematology from 04/16/2016 1:14 PMWBC 13.3 X10e3/UL H (3.6-11.2 X10e3/UL) RBC 2.85 X10e6/UL L (3.63-4.92 X10e6/UL) HEMOGLOBIN 9.6 G/DL L (11.0-14.3 G/DL) HEMATOCRIT 29.8 % L (31.2-41.9 %) *MCV 104.6 FL H (79.0-98.0 FL) *MCH 33.5 PG H (27.0-33.0 PG) *MCHC 32.0 G/DL (32.0-36.0 G/DL) *RDW 14.8 % (12.3-17.0 %) *RDWSD 54.7 H (37.1-47.8 ) PLATELET 220 X10e3/UL (159-386 X10e3/UL) *MPV 9.9 FL (7.4-10.4 FL) *MANUAL DIFF PERFORMED SEGS 63.0 % *BANDS 1.0 % *LYMPHOCYTES 27.0 % *MONOCYTES 4.0 % *EOSINOPHILS 4.0 % *BASOPHILS 1.0 % *ABSOLUTE NEUTROPHILS 8.51 X10e3/UL H (1.80-7.80 X10e3/UL) *ABSOLUTE LYMPHOCYTES 3.59 X10e3/UL H (1.00-3.00 X10e3/UL) *ABSOLUTE MONOCYTES 0.53 X10e3/UL (0.30-1.00 X10e3/UL) *ABSOLUTE EOSINOPHILS 0.53 X10e3/UL H (0.00-0.50 X10e3/UL) *ABSOLUTE BASOPHILS 0.13 X10e3/UL (0.00-0.20 X10e3/UL) *NUCLEATED RBC MANUAL 2.0 /100 WBC H (0.0-1.0 /100 WBC) *POLYCHROMASIA 1+ *MACROCYTIC 1+ TARGET CELLS 1+ STOMATOCYTES 2+ BASOPHILIC STIPPLING 1+ MITCHELL JOLLY BODIES 1+ Coagulation from 04/16/2016 1:14 PM*PROTHROMBIN TIME 10.2 SECONDS (9.4-11.5 SECONDS) *INR 1.0 (0.9-1.1 ) DX Radiology from 04/16/2016 12:56 PMCHEST 1 VIEW History: gen weakness Priors: Chest x-ray 04/19/2009 Findings: There is unchanged cardiomegaly with mild pulmonary edema. No focal consolidating infiltrate, significant pleural effusion or pneumothorax is seen. Cardiac pacemaker is again noted entering via left subclavian approach. There are postsurgical changes of aortic valve replacement are noted. Impression: Mild congestive heart failure. Electronically signed by: Salina Goss MD Dictated: 04/16/2016 14:47 Problems Encounter Diagnosis No relevant problems exist. [...]
--- OUTSIDE RECORDS SUMMARY | 2017-02-26 16:29 | XMS REPORT ---
Author Author GENERATED, SYSTEM Organization Unknown Address Unknown Phone Unavailable Care Team Providers Care Rat Farmer Name Role Phone MD CORTEZ, [facility] [phone] Reason For Visit Reason for Visit from 2016 1:11 PM:* Pt Stated Reason for Adm : PRBC Chief Complaint ANEMIA D64.9 Social History Functional Status Functional Status from 2016 1:11 PM:* LOC : Alert * Oriented To : Person,Place,Time Vital Signs Hospital Vital Signs from 2016 3:20 PM:* Height : 5/0 ft,in * Temperature : 96.5 F * Pulse : 63 * BP : 161/43 Hospital Vital Signs from 2016 2:37 PM:* Height : 5/0 ft,in * Temperature : 96.4 F * Pulse : 60 * Respirations : 18 * BP : 177/74 Hospital Vital Signs from 2016 1:37 PM:* Height : 5/0 ft,in * Temperature : 96.2 F * Pulse : 59 * Respirations : 18 * BP : 173/82 Hospital Vital Signs from 2016 1:22 PM:* Height : 5/0 ft,in * Temperature : 96.1 F * Pulse : 59 * Respirations : 18 * BP : 169/64 Hospital Vital Signs from 2016 1:14 PM:* Height : 5/0 ft,in * Temperature : 96.6 F * Pulse : 59 * Respirations : 18 * BP : 171/71 Hospital Vital Signs from 2016 1:11 PM:* Weight : 110/ lbs,oz * Height : 5/0 ft,in Hospital Vital Signs from 2016 12:42 PM:* Height : 5/0 ft,in * Temperature : 96.5 F * Pulse : 65 * BP : 159/77 Hospital Vital Signs from 2016 11:42 AM:* Height : 5/0 ft,in * Temperature : 96.6 F * Pulse : 59 * Respirations : 18 * BP : 139/70 Hospital Vital Signs from 2016 11:27 AM:* Height : 5/0 ft,in * Temperature : 96.7 F * Pulse : 60 * Respirations : 16 * BP : 123/66 Hospital Vital Signs from 2016 10:50 AM:* Height : 5/0 ft,in * Temperature : 96.8 F * Pulse : 63 * Respirations : 18 * BP : 116/55 Results Hematology from 07/21/2016 9:30 AMWBC 16.3 X10e3/UL H (3.6-11.2 X10e3/UL) WBC CORRECTED 15.1 X10e3/UL H (3.6-11.2 X10e3/UL) RBC 2.80 X10e6/UL L (3.63-4.92 X10e6/UL) HEMOGLOBIN 8.6 G/DL L (11.0-14.3 G/DL) HEMATOCRIT 27.3 % L (31.2-41.9 %) *MCV 97.5 FL (79.0-98.0 FL) *MCH 30.7 PG (27.0-33.0 PG) *MCHC 31.5 G/DL L (32.0-36.0 G/DL) *RDW 26.0 % H (12.3-17.0 %) *RDWSD 84.0 H (37.1-47.8 ) PLATELET 145 X10e3/UL L (159-386 X10e3/UL) *MPV 10.1 FL (7.4-10.4 FL) *MANUAL DIFF PERFORMED SEGS 79.0 % *BANDS 1.0 % *LYMPHOCYTES 10.0 % *MONOCYTES 4.0 % *EOSINOPHILS 6.0 % *BASOPHILS 0.0 % *ABSOLUTE NEUTROPHILS 13.04 X10e3/UL H (1.80-7.80 X10e3/UL) *ABSOLUTE LYMPHOCYTES 1.63 X10e3/UL (1.00-3.00 X10e3/UL) *ABSOLUTE MONOCYTES 0.65 X10e3/UL (0.30-1.00 X10e3/UL) *ABSOLUTE EOSINOPHILS 0.98 X10e3/UL H (0.00-0.50 X10e3/UL) *ABSOLUTE BASOPHILS 0.00 X10e3/UL (0.00-0.20 X10e3/UL) *NUCLEATED RBC MANUAL 17.0 /100 WBC H (0.0-1.0 /100 WBC) *POLYCHROMASIA 2+ ANISOCYTOSIS 3+ STOMATOCYTES 1+ Problems Encounter Diagnosis No relevant problems exist. [...] of Care Procedures * Completed Procedure Code: 58236U6 Procedure Name: not valued, on 06/21/2016 12 [...]
--- OUTSIDE RECORDS SUMMARY | 2017-02-26 16:29 | XMS REPORT ---
Author Author GENERATED, SYSTEM Organization Unknown Address Unknown Phone Unavailable Care Team Providers Care Ip Paralegal Name Role Phone MD CORTEZ, EMILI [phone] Reason For Visit Chief Complaint TRANS FROM [facility] Social History Functional Status Vital Signs Results Problems Encounter Diagnosis No relevant problems exist. Additional Problems * Acute Pain Comment:Problem resolved by [facility] Workflow upon Discharge, Status :Resolved. * Anemia Comment:Problem resolved by [facility] Workflow upon Discharge, Status: Resolved. * Anemia of Chronic Disease Status:Active. * Chest Pain Comment:Problem resolved by [facility] Workflow upon Discharge, Status :Resolved. * Chronic Congestive Heart Failure Status:Active. * Chronic Kidney Disease, Stage 3 Comment:Problem resolved by [facility] Workflow upon Discharge, Status:Resolved. * Chronic Kidney Disease, Stage 4 Status:Active. * Chronic Obstructive Lung Disease Comment:Problem resolved by [facility] Workflow upon Discharge, Status:Resolved. * Chronic Obstructive Lung Disease Status:Active. * Diastolic Heart Failure Comment:Problem resolved by [...] upon Discharge, Status: Resolved. * Fall Risk Status:Active. * History of Hypertension Status:Active. * Hypertensive Disorder Comment:Problem resolved by [facility] Workflow upon Discharge, Status:Resolved. * Macrocytic Anemia Comment:Problem resolved by [facility] Workflow upon Discharge , Status:Resolved. * Mobility Impairment Comment:Problem resolved by [facility] Workflow upon Discharge, Status:Resolved. * Mobility Impairment Comment:Problem resolved by [facility] Workflow upon Discharge, Status:Resolved. * Mobility Impairment Status:Active. * Skin Integrity Impairment Risk Comment:Problem resolved by [facility] Workflow upon Discharge, Status:Resolved. * Skin Integrity Impairment Risk Status:Active. Encounters Encounter Diagnosis No relevant problems exist. Plan of Care Procedures * Completed Esophagogastroduodenoscopy, by MD ROOSEVELT DIAZ, on 08/27/2016 8 :57 AM * Completed Procedure Code: [id number] Procedure Name: not valued, on 08/27/2016 12 :00 AM * Completed Procedure Code: 45245 Procedure Name: not valued, on 08/27/2016 12: 00 AM * Completed Procedure Code: [id number] Procedure Name: not valued, on 07/30/2016 9: 59 AM * Completed Procedure Code: [id number] Procedure Name: not valued, on 07/30/2016 9: 59 AM * Completed Esophagogastroduodenoscopy with control of bleeding, by MD ROOSEVELT DIAZ, on 07/30/2016 9:21 AM * Completed Procedure Code: [id number] Procedure Name: not valued, on 07/21/2016 12 :00 AM * Completed Procedure Code: 62549 Procedure Name: not valued, on 07/21/2016 12: 00 AM * Completed Procedure Code: 90209 Procedure Name: not valued, on 07/21/2016 12: 00 AM * Completed Procedure Code: 14338B0 Procedure Name: not valued, on 06/21/2016 12 [...]
--- OUTSIDE RECORDS SUMMARY | 2017-02-26 16:30 | XMS REPORT | Summary of Care ---
Author Author Mikie ELLER,Cristina Unknown Address [address], [place] [id number] Phone Unavailable Care Team Providers Care Service Station Attendant Name Role Phone Ferdinand Hammonds, Cece Unavailable [...] Immunization Name Dates Details Influenza Lot #: [id number] on: 02-Aug-2010 Influenza Lot #: [id number] on: 24-Aug-2012 Pneumo (Pneumovax) Lot #: [id number] on: 24-Aug-2012 Fluzone High-Dose 0.5 ML Intramuscular Suspension Prefilled Syringe Lot #: [id number] on: 25-Jul-2015 Tdap (Adacel) Lot #: [id number] on: 05-Nov-2015 Fluzone High-Dose 0.5 ML Intramuscular Suspension Prefilled Syringe Lot #: [id number] on: 02-Sep-2016 Family History Name Dates Details [...] /HPF Range: 0-10 18-Aug-2016 10:59 URINE CULTURE [id number] Comments: [facility] at: [facility], [address] [place], [address], Fluoroscope Operator: Gigi Alberto D.O., MPHQuest Collection Date/Time: [id number] Results Received Date/Time: [id number] Reported Date/Time: [id number] FASTING:NOQuest performed at: [facility], [facility], [address] [place], [address], Fluoroscope Operator: Gigi Alberto D.O., MPHQuest Collection Date/Time: [id number] Results Received Date/Time: [id number] Reported Date/Time: FASTING:NOQuest performed at: [facility], [address] [place], [address], Fluoroscope Operator: Gigi Alberto D.O., MPHQuest Collection Date/Time: [id number] Results Received Date/Time: [id number] Reported Date/Time: [id number] FASTING:NO CULTURE, URINE, ROUTINE SEE NOTE (Abnormal) Comments: CULTURE, URINE, ROUTINE MICRO NUMBER: [id number] TEST STATUS: FINAL SPECIMEN SOURCE : URINE [...] low threshold) Range: >60 EST GFR, NON-AFR [place] 28 ml/min (Below low threshold) Range: [...] low threshold) Range: >60 EST GFR, NON-AFR [place] 28 ml/min (Below low threshold) Range: [...] low threshold) Range: >60 EST GFR, NON-AFR [place] 29 ml/min (Below low threshold) Range: >60 [...] Provider: Stefan Streeter M.D. On 16-Sep-2016 13:30 Interventions Provided Labs/Procedures/Imaging* HEMOGRAM 7305; Done: Sep 02 2016 8:56AM * RENAL PROFILE 1240; Done: Sep 02 2016 8:56AM Medications/Immunizations Administered* Fluzone High-Dose 0.5 ML Intramuscular Suspension Prefilled Syringe; Done: 02 Sep 2016 Instructions Name Dates Details Instructions not [...] Problem not documented On 20-Feb-2016 16:05 Appointment; Cahpito Muro Encounter Diagnosis: Problem not documented On [...]
--- OUTSIDE RECORDS SUMMARY | 2017-02-26 16:30 | XMS REPORT ---
Author Author GENERATED, SYSTEM Organization Unknown Address Unknown Phone Unavailable Care Team Providers Care Insulation Packer Name Role Phone MD YEHUDA, CHINO PP [phone] Reason For Visit Reason for Visit from 04/18/2015 10:53 AM:* Pt Stated Reason for Adm : Privigen infusion Chief Complaint IV,CVIDS Social History Functional Status Functional Status from 04/18/2015 10:53 AM:* LOC : Alert * Oriented To : Person,Place,Time,Event Vital Signs Hospital Vital Signs from 04/18/2015 2:46 PM:* Height : 5/0 ft,in * Pulse : 60 * Respirations : 16 * BP : 151/83 Hospital Vital Signs from 04/18/2015 2:12 PM:* Height : 5/0 ft,in * Pulse : 61 * Respirations : 16 * BP : 151/83 Hospital Vital Signs from 04/18/2015 1:57 PM:* Height : 5/0 ft,in * Pulse : 60 * Respirations : 16 * BP : 146/73 Hospital Vital Signs from 04/18/2015 1:42 PM:* Height : 5/0 ft,in * Pulse : 60 * Respirations : 16 * BP : 144/82 Hospital Vital Signs from 04/18/2015 1:27 PM:* Height : 5/0 ft,in * Pulse : 59 * Respirations : 16 * BP : 159/87 Hospital Vital Signs from 04/18/2015 1:12 PM:* Height : 5/0 ft,in * Pulse : 60 * Respirations : 18 * BP : 167/87 Hospital Vital Signs from 04/18/2015 12:57 PM:* Height : 5/0 ft,in * Pulse : 60 * Respirations : 18 * BP : 169/60 Hospital Vital Signs from 04/18/2015 12:42 PM:* Height : 5/0 ft,in * Pulse : 60 * Respirations : 18 * BP : 159/82 Hospital Vital Signs from 04/18/2015 12:27 PM:* Height : 5/0 ft,in * Pulse : 60 * Respirations : 18 * BP : 159/82 Hospital Vital Signs from 04/18/2015 12:12 PM:* Height : 5/0 ft,in * Pulse : 60 * Respirations : 18 * BP : 157/75 Hospital Vital Signs from 04/18/2015 11:42 AM:* Height : 5/0 ft,in * Pulse : 60 * Respirations : 18 * BP : 174/88 Hospital Vital Signs from 04/18/2015 11:27 AM:* Height : 5/0 ft,in * Pulse : 60 * Respirations : 18 * BP : 175/89 Hospital Vital Signs from 04/18/2015 11:12 AM:* Height : 5/0 ft,in * Temperature : 97.7 F * Pulse : 59 * Respirations : 18 * BP : 161/83 Results Problems Encounter Diagnosis No relevant problems [...]
--- OUTSIDE RECORDS SUMMARY | 2017-02-26 16:30 | XMS REPORT | Summary of Care ---
Author Author Chapito Muro Organization Unknown Address [address] [place], [place] [id number] Phone Unavailable Care Team Providers Care Thread Dresser Name Role Phone Cece Streeter M.D. Unavailable [...] Immunization Name Dates Details Influenza Lot #: [id number] Administered on:02-Aug-2010 Influenza Lot #: [id number] Administered on:24-Aug-2012 Pneumo (Pneumovax) Lot #: [id number] Administered on:24-Aug-2012 Fluzone High-Dose 0.5 ML Intramuscular Suspension Prefilled Syringe Lot #: [id number] Administered on:25-Jul-2015 Tdap (Adacel) Lot #: [id number] Administered on:05-Nov-2015 Family History natural son* Name [...] low threshold) Range: >60 EST GFR, NON-AFR [place]IAN 34 ml/min (Below low threshold) Range: >60 Comments: EST GFR is reported in ml/min per 1.73 m2 of body surface area. For -[place] Ver[place]an, please multiple result by 1.2.----- GLUCOSE 145 [...] low threshold) Range: >60 EST GFR, NON-AFR SLOV[place]IAN 39 ml/min (Below low threshold) Range: >60 Comments: EST GFR is reported in ml/min per 1.73 m2 of body surface area. For -[place], please multiple result by 1.2.----- GLUCOSE 100 [...] 13:33Dictation Date: 01/16/2016 14:41 XD DEXA (Better) Plan of Care Planned Observations* Name [...]
--- OUTSIDE RECORDS SUMMARY | 2017-02-26 16:30 | XMS REPORT | Referral Summary ---
Author Author [facility] Organization [facility] Address Unknown Phone Unavailable Care Team Providers Care Vfx Artist Name Role Phone Doug Muro Primary Care Physician [phone] Encounter VC Date(s): 07/08/16 - 07/08/16 [facility] [address] [place] [address] Discharge Disposition: 01-Home or Self Care Attending Physician: Matty Law MD Admitting Physician: Matty Law MD Vital Signs Most recent to 1 oldest [Reference Range]: Peripheral Pulse 61 bpm Rate [60-100 bpm] (07/08/16 2:49 PM) Respiratory Rate 18 br/min [14-20 br/min] (07/08/16 2:49 PM) Blood Pressure 92/59 mmHg [90-140/60-90 mmHg] (07/08/16 2:49 PM) SpO2 98 % 1 (07/08/16 2:49 PM) 1Result Comment: on 2L O2 Problem List Condition Effective Dates Status Health [...] Adverse Reaction Medium Active cephalosporins Active Medications Align 4 mg oral capsule 4 mg 1 caps, Oral, Daily, # 28 caps, 0 Refill(s) Start Date: 05/09/16 Status: Ordered allopurinol 300 mg oral tablet 300 mg 1 tabs, Oral, Daily, 0 Refill(s) Start Date: 04/08/16 Status: Ordered aspirin 325 mg oral tablet 325 mg 1 tabs, Oral, Daily, 0 Refill(s) Start Date: 07/08/16 Status: Ordered atorvastatin 20 mg oral tablet [...] 1 tabs, Oral, Daily, Fluid Overload Symptoms, 0 Refill(s) Start Date: 07/08/16 Status: Ordered furosemide 40 mg oral tablet [...] 0 Refill(s) Start Date: 04/08/16 Status: Ordered Misc Medication Pt receives IVIG every 4 weeks., 0 Refill(s) Start Date: 04/09/16 Status: Ordered [...] Date: 04/09/16 Status: Ordered Rituxan See Instructions, q 8 weeks, 0 Refill(s) Start Date: 04/09/16 Status: Ordered rOPINIRole 2 mg oral tablet 2 mg 1 tabs, Oral, Bedtime (once a day), 0 Refill(s) Start Date: 04/08/16 Status: Ordered Tylenol Caplet 650 mg, Oral, q4hr, as needed for pain, 0 Refill(s) Start Date: 04/16/16 Status: Ordered Results Hematology Most recent to 1 oldest [Reference Range]: WBC [4.8-10.8 15.0 10*3/uL 10*3/uL] *HI* (07/08/16 2:48 PM) RBC [4.00-5.20] 2.63 *LOW* (07/08/16 2:48 PM) Hgb [12.0-16.0 8.3 gm/dL gm/dL] *LOW* (07/08/16 2:48 PM) Hct [37.0-47.0 %] 26.7 % *LOW* (07/08/16 2:48 PM) MCV [82.0-99.0 fL] 101.5 fL *HI* (07/08/16 2:48 PM) MCH [27.0-32.0 pg] 31.6 pg (07/08/16 2:48 PM) MCHC [32.0-36.0 31.1 gm/dL gm/dL] *LOW* (07/08/16 2:48 PM) RDW [11.5-14.5 %] 18.5 % *HI* (07/08/16 2:48 PM) Platelet [150-400 219 10*3/uL 10*3/uL] (07/08/16 2:48 PM) MPV [9.4-12.4 fL] 11.6 fL (07/08/16 2:48 PM) Chemistry Most recent to 1 oldest [Reference Range]: Sodium Lvl [136-144 142 mEq/L mEq/L] (07/08/16 2:48 PM) Potassium Lvl 4.7 mEq/L [3.6-5.1 mEq/L] (07/08/16 2:48 PM) Chloride [99-109 102 mEq/L mEq/L] (07/08/16 2:48 PM) CO2 [22-32 mEq/L] 30 mEq/L (07/08/16 2:48 PM) AGAP [3-20] 10 (07/08/16 2:48 PM) BUN [4-20 mg/dL] 47 mg/dL *HI* (07/08/16 2:48 PM) Glucose Lvl [70-100 113 mg/dL mg/dL] *HI* (07/08/16 2:48 PM) Creatinine Lvl 2.43 mg/dL [0.44-1.03 mg/dL] *HI* (07/08/16 2:48 PM) eGFR [>60] 19 1 *ABN* (07/08/16 2:48 PM) Calcium Lvl 8.7 mg/dL [8.6-10.0 mg/dL] (07/08/16 2:48 PM) 1Result Comment: Multiply eGFR results by 1.21 for race. Immunizations No data available for this section [...] 3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 I called Alla and spoke with her regarding the patient's lab work and orders from Dr. Law. Per Dr. Law the patient is to discontinue taking Lasix and KCL at this time related to an elevated BUN/Creatinine and to have a BMP drawn at her PCP office on Thursday. Please fax the results to [phone]. Alla wrote down the information and repeated the instructions back with clear understanding. I also reviewed with Alla that the patient is to stop taking Lisinopril as she was instructed in clinic by Dr. Law. Alla repeated those instructions also. Encouraged Alla to call the clinic with any questions or concerns. Extracted from: Title: KCCQ-12 Author: Riya Fountain RN Date: 07/08/16 Guy Cardiomyopathy Questionnaire (CQ-12) The following questions refer to your heart failure and how it may affect your life. Please read and complete the following questions. There are no right or wrong answers. Please martina the answer that best applies to you. 1.Heart failure affects different people in different ways. Some feel shortness of breath while others feel fatigue. Please indicate how much you are limited by heart failure (shortness of breath or fatigue) in your ability to do the following activities over the past 2 weeks. Activity Extremely Limited Quite a bit Limited Moderately Limited Slightly Limited Not at all Limited Limited for other reasons or did not do the activity (1) (2) (3) (4) (5) (6) a. Showering/bathing [ ] [ ] [ ] [ ] [ x ] [ ] b. Walking 1 block on level ground [ ] [ ] [ ] [ ] [ ] [ x ] c. Hurrying or jogging (as if to catch a bus) [ ] [ ] [ ] [ ] [ ] [ x ] 2.Over the past 2 weeks, how many times did you have swelling in your feet, ankles or legs when you woke up in the morning? Every morning 3 or more times per week but not every day 1-2 times per week Less than once a week Never over the past 2 weeks (1) (2) (3) (4) (5) [ ] [ ] [ ] [ ] [ x ] 3.Over the past 2 weeks, on average, how many times has fatigue limited your ability to do what you wanted? All of the time Several times per day At least once a day 3 or more times per week but not every day 1-2 times per week Less than once a week Never over the past 2 weeks (1) (2) (3) (4) (5) (6) (7) [ x ] [ ] [ ] [ ] [ ] [ ] [ ] 4.Over the past 2 weeks, on average, how many times has shortness of breath limited your ability to do what you wanted? All of the time Several times per day At least once a day 3 or more times per week but not every day 1-2 times per week Less than once a week Never over the past 2 weeks (1) (2) (3) (4) (5) (6) (7) [x ] [ ] [ ] [ ] [ ] [ ] [ ] 5.Over the past 2 weeks, on average, how many times have you been forced to sleep sitting up in a chair or with at least 3 pillows to prop you up because of shortness of breath? Every night 3 or more times per week but not every day 1-2 times per week Less than once a week Never over the past 2 weeks (1) (2) (3) (4) (5) [ ] [ ] [ ] [ ] [ x ] 6.Over the past 2 weeks, how much has your heart failure limited your enjoyment of life? It has extremely limited my enjoyment of life It has limited my enjoyment of life quite a bit It has moderately limited my enjoyment of life It has slightly limited my enjoyment of life It has not limited my enjoyment of life at all (1) (2) (3) (4) (5) [ ] [ ] [ ] [ ] [ x ] 7.If you had to spend the rest of your life with your heart failure the way it is right now, how would you feel about this? Not at all satisfied Mostly dissatisfied Somewhat satisfied Mostly satisfied Completely satisfied (1) (2) (3) (4) (5) [ ] [ ] [ ] [ x ] [ ] 8.How much does your heart failure affect your lifestyle? Please indicate how your heart failure may have limited your participation in the following activities over the past 2 weeks. Activity Severely Limited Limited quite a bit Moderately limited Slightly limited Did not limit at all Does not apply or did not do for other reasons (1) (2) (3) (4) (5) (6) a. Hobbies, recreational activities [ ] [ ] [ x ] [ ] [ ] [ ] b. Working or doing software engineer [ ] [ ] [ x ] [ ] [ ] [ ] c. Visiting family or friends out of your home [ ] [ ] [ ] [ ] [ x ] [ ]
--- OUTSIDE RECORDS SUMMARY | 2017-02-26 16:31 | XMS REPORT ---
Author Author GENERATED, SYSTEM Organization Unknown Address Unknown Phone Unavailable Care Team Providers Care Putty Tinter Maker Name Role Phone MD CORTEZ, [facility] [phone] Reason For Visit Reason for Visit from 08/08/2015 11:30 AM:* Pt Stated Reason for Adm : IVIG Chief Complaint IV,CVIDS,D83.8 Social History Functional Status Functional Status from 08/08/2015 11:30 AM:* LOC : Alert * Oriented To : Person,Place,Time,Event Vital Signs Hospital Vital Signs from 08/08/2015 3:46 PM:* Height : 5/0 ft,in * Temperature : 97.6 F * Pulse : 60 * Respirations : 18 * BP : 131/77 Hospital Vital Signs from 08/08/2015 3:29 PM:* Height : 5/0 ft,in * Temperature : 97.7 F * Pulse : 59 * BP : 129/64 Hospital Vital Signs from 08/08/2015 3:05 PM:* Height : 5/0 ft,in * Temperature : 97.7 F * Pulse : 59 * Respirations : 18 * BP : 115/70 Hospital Vital Signs from 08/08/2015 2:50 PM:* Height : 5/0 ft,in * Pulse : 58 * Respirations : 18 * BP : 125/72 Hospital Vital Signs from 08/08/2015 2:35 PM:* Height : 5/0 ft,in * Temperature : 97.6 F * Pulse : 60 * Respirations : 18 * BP : 128/74 Hospital Vital Signs from 08/08/2015 2:20 PM:* Height : 5/0 ft,in * Temperature : 97.3 F * Pulse : 59 * Respirations : 18 * BP : 130/70 Hospital Vital Signs from 08/08/2015 2:05 PM:* Height : 5/0 ft,in * Temperature : 97.5 F * Pulse : 60 * BP : 130/78 Hospital Vital Signs from 08/08/2015 1:50 PM:* Height : 5/0 ft,in * Temperature : 97.5 F * Pulse : 59 * Respirations : 18 * BP : 128/71 Hospital Vital Signs from 08/08/2015 1:20 PM:* Height : 5/0 ft,in * Temperature : 97.3 F * Pulse : 60 * Respirations : 18 * BP : 122/62 Hospital Vital Signs from 08/08/2015 1:05 PM:* Height : 5/0 ft,in * Temperature : 97.6 F * Pulse : 58 * Respirations : 16 * BP : 120/60 Hospital Vital Signs from 08/08/2015 12:50 PM:* Height : 5/0 ft,in * Temperature : 97.5 F * Pulse : 60 * Respirations : 18 * BP : 119/67 Hospital Vital Signs from 08/08/2015 12:20 PM:* Height : 5/0 ft,in * Temperature : 97.6 F * Pulse : 59 * Respirations : 18 * BP : 121/67 Hospital Vital Signs from 08/08/2015 12:05 PM:* Height : 5/0 ft,in * Temperature : 97.4 F * Pulse : 58 * Respirations : 18 * BP : 124/72 Hospital Vital Signs from 08/08/2015 11:49 AM:* Height : 5/0 ft,in * Temperature : 97.3 F * Pulse : 61 * Respirations : 18 * BP : 131/80 Results Problems Encounter Diagnosis No relevant problems [...]
--- OUTSIDE RECORDS SUMMARY | 2017-02-26 16:31 | XMS REPORT | Summary of Care ---
Author Author Bruce Saunders M.D. Unknown Address [address], [place] [id number] Phone Unavailable Care Team Providers Care Solar Installation Foreman Name Role Phone Cece Streeter M.D. [...] 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 Medications Name Dates Details Multi-Day [...] Immunization Name Dates Details Influenza Lot #: [id number] Administered on:02-Aug-2010 Influenza Lot #: [id number] Administered on:24-Aug-2012 Pneumo (Pneumovax) Lot #: [id number] Administered on:24-Aug-2012 Fluzone High-Dose 0.5 ML Intramuscular Suspension Prefilled Syringe Lot #: [id number] Administered on:25-Jul-2015 Tdap (Adacel) Lot #: [id number] Administered on:05-Nov-2015 Family History natural son* Name [...] Body Surface Area Calculated 1.58 m2 Status: Results Date Description Value Details 12-Nov-2015 11:14 CBC w/ Auto Diff 7150 [...] low threshold) Range: >60 EST GFR, NON-AFR [place]AN 34 ml/min (Below low threshold) Range: >60 Comments: EST GFR is reported in ml/min per 1.73 m2 of body surface area. For -Iranian, please multiple result by 1.2.----- GLUCOSE 98 [...] infants and children <2 years of age----- 1-Nov-2015 11:14 Comprehensive Metabolic Panel 1212 SODIUM 144 [...] low threshold) Range: >60 EST GFR, NON-AFR [place]AN 46 ml/min (Below low threshold) Range: >60 Comments: EST GFR is reported in ml/min per 1.73 m2 of body surface area. For -Iranian, please multiple result by 1.2.----- GLUCOSE 85 [...]
--- OUTSIDE RECORDS SUMMARY | 2017-02-26 16:31 | XMS REPORT | Summary of Care ---
Author Author Chapito Muro Organization Unknown Address [address] [id number] Phone Unavailable Care Team Providers Care Director Sales Support Name Role Phone Ferdinand Hammonds, Cece Unavailable Unavailable Chapito Muro Unavailable Unavailable Reji Hammonds, T. Marciano Unavailable Unavailable Saji Hammonds, Krunal Unavailable Unavailable oSny Muro Unavailable Unavailable Unavailable Unavailable Functional Status [...] symptom or sign (788.99, R39.9) Status: Active Medications Name Dates Details Multi-Day [...] week apart * Quantity: 34 Refills: 0 Pedrobunny Cassius Krunal * Start 15-Jul-2016 Active Digoxin 125 MCG Oral Tablet Take one tablet by mouth daily * Quantity: 30 Refills: 1 EdemmanuelChapito * Start 09-Jul-2016 Active DULoxetine HCl - [...] Immunization Name Dates Details Influenza Lot #: [id number] on: 02-Aug-2010 Influenza Lot #: [id number] on: 24-Aug-2012 Pneumo (Pneumovax) Lot #: [id number] on: 24-Aug-2012 Fluzone High-Dose 0.5 ML Intramuscular Suspension Prefilled Syringe Lot #: [id number] on: 25-Jul-2015 Tdap (Adacel) Lot #: [id number] on: 05-Nov-2015 Family History Name Dates Details [...] low threshold) Range: >60 EST GFR, NON-AFR [place]AYAN 38 ml/min (Below low threshold) Range: >60 [...] Comments: ORDER IS IN OFFICE; COPY TO [facility] ( CC'D)Manual differential indicated. WBC 16.1 K/uL [...] Comments: ORDER IS IN OFFICE; COPY TO [facility] (CC'D) SEGS 78 % Range: 37-80 BANDS [...] 26-Jul-2016 08:47 VIVIAN PE and FLC Serum [id number] Comments: Testing performed at : [DA[facility], [address] [place] [address], [place], [address], , Sheet Metal Contractor: KEILA Carranza MD IMMUNOGLOBULIN G, QN, SERUM 294 mg/dL (Below low threshold) Range: 700- 1600 IMMUNOGLOBULIN A, QN, SERUM 21 mg/dL (Below low threshold) Range: 64-422 IMMUNOGLOBULIN M, QN, SERUM <5 mg/dL (Below low threshold) Range: 26-217 Comments: Verified by repeat analysis----- PROTEIN, TOTAL, SERUM 5.2 g/dL (Below low threshold) Range: 6.0-8.5 ALBUMIN 3.0 g/dL Range: 2.9-4.4 TPYQK-4-VKBSAIKK 0.4 g/dL Range: 0.0-0.4 XEQNX-8-RJDTITZH 0.7 g/dL Range: 0.4-1.0 BETA GLOBULIN 0.8 g/dL Range: 0.7-1.3 GAMMA GLOBULIN 0.3 g/dL (Below low threshold) Range: 0.4-1.8 M-SPIKE Not Observed g/dL Range: Not Observed GLOBULIN, TOTAL 2.2 g/dL Range: 2.2-3.9 A/G RATIO 1.4 Range: 0.7-1.7 IMMUNOFIXATION RESULT, SERUM Comment Comments: An apparent normal immunofixation pattern.----- PLEASE NOTE: Comment Comments: Protein electrophoresis scan will follow via computer,mail, or computer patternmaker delivery.----- FREE KAPPA LT CHAINS,S 11.69 mg/L [...] /HPF Range: 0-10 18-Aug-2016 10:59 URINE CULTURE [id number] Comments: [facility] performed at: [facility], [address] [place] [address], [address], Sheet Metal Contractor: Gigi Alberto D.O., MPHQuest Collection Date/Time: [id number] Results Received Date/Time: [id number] Reported Date/Time: [id number] FASTING:NOQuest performed at: [facility], [place], [address], Sheet Metal Contractor: Gigi Alberto D.O., MPHQuest Collection Date/Time: [id number] Results Received Date/Time: [id number] Reported Date/Time: FASTING:NOQuest performed at: [place], [facility], [address] [place], [address], Sheet Metal Contractor: Gigi Alberto D.O., MPHQuest Collection Date/Time: [id number] Results Received Date/Time: [id number] Reported Date/Time: FASTING:NO CULTURE, URINE, ROUTINE SEE NOTE (Abnormal) Comments: CULTURE, URINE, ROUTINE MICRO NUMBER: [id number] TEST STATUS: FINAL SPECIMEN SOURCE : URINE [...]
--- OUTSIDE RECORDS SUMMARY | 2017-02-26 16:31 | XMS REPORT ---
Author Author GENERATED, SYSTEM Organization Unknown Address Unknown Phone Unavailable Care Team Providers Care Home Worker Name Role Phone MD CORTEZ, [facility] [phone] Reason For Visit Reason for Visit from 03/19/2016 10:12 AM:* Pt Stated Reason for Adm : Gammagard Chief Complaint D83.8 Social History Functional Status Functional Status from 03/19/2016 10:12 AM:* LOC : Alert * Oriented To : Person,Place,Time,Event Vital Signs Hospital Vital Signs from 03/19/2016 1:42 PM:* Height : 5/1 ft,in * Pulse : 60 * BP : 112/57 Hospital Vital Signs from 03/19/2016 1:27 PM:* Height : 5/1 ft,in * Pulse : 59 * BP : 112/56 Hospital Vital Signs from 03/19/2016 1:12 PM:* Height : 5/1 ft,in * Pulse : 61 * BP : 78/32 Hospital Vital Signs from 03/19/2016 12:57 PM:* Height : 5/1 ft,in * Pulse : 65 * BP : 135/71 Hospital Vital Signs from 03/19/2016 12:43 PM:* Height : 5/1 ft,in * Pulse : 49 * BP : 117/74 Hospital Vital Signs from 03/19/2016 12:11 PM:* Height : 5/1 ft,in * Pulse : 59 * BP : 140/67 Hospital Vital Signs from 03/19/2016 11:56 AM:* Height : 5/1 ft,in * Pulse : 59 * BP : 126/67 Hospital Vital Signs from 03/19/2016 11:42 AM:* Height : 5/1 ft,in * Pulse : 58 * BP : 148/74 Hospital Vital Signs from 03/19/2016 11:26 AM:* Height : 5/1 ft,in * Pulse : 56 * BP : 133/82 Hospital Vital Signs from 03/19/2016 11:12 AM:* Height : 5/1 ft,in * Pulse : 55 * BP : 119/35 Hospital Vital Signs from 03/19/2016 10:57 AM:* Height : 5/1 ft,in * Temperature : 97.9 F * Pulse : 59 * Respirations : 18 * BP : 125/86 Hospital Vital Signs from 03/19/2016 10:12 AM:* Weight : 120/ lbs,oz * Height : 5/1 ft,in Results Chemistry from 03/19/2016 10:20 AMCREATININE 1.22 MG/DL H (0.55-1.02 MG/DL) *GFR EST NON AFR IVORIAN 40 ML/MIN *GFRA EST AFR AMER 47 ML/MIN Problems Encounter Diagnosis No relevant problems [...]
--- OUTSIDE RECORDS SUMMARY | 2017-02-26 16:32 | XMS REPORT | Summary of Care ---
Author Author Chapito Muro Organization Unknown Address [address] [id number] Phone Unavailable Care Team Providers Care Welfare Administrator Name Role Phone Cece Streeter M.D. Unavailable [...] Metabolic Panel 1212 Ordered: Cortisol - AM [id number] Ordered: 09-Jul-2016 Immunization Name Dates Details Influenza Lot #: [id number] on: 02-Aug-2010 Influenza Lot #: [id number] on: 24-Aug-2012 Pneumo (Pneumovax) Lot #: [id number] on: 24-Aug-2012 Fluzone High-Dose 0.5 ML Intramuscular Suspension Prefilled Syringe Lot #: [id number] on: 25-Jul-2015 Tdap (Adacel) Lot #: [id number] on: 05-Nov-2015 Family History Name Dates Details [...] threshold) Range: >60 EST GFR, NON-AFR SLOVENIAN 32 ml/min (Below low threshold) Range: >60 [...] 524 pg/mL Range: 211-911 04-Jul-2016 12:21 Haptoglobin [id number] Comments: ORDER IN BOOK UNDER Test performed at: [DA] [facility], [address] [place] [address] , [place], [address], , Director Of Diagnostic Imaging: KEILA Carranza MD HAPTOGLOBIN 215 mg/dL (Above high threshold) Range: 34-200 05-Jul-2016 09:28 VIVIAN PE and FLC Serum [id number] Comments: ORDER IN BOOK UNDER Test performed at: [DA] [facility], [address] [place] [address] , [place], [address], , Director Of Diagnostic Imaging: KEILA Carranza MD IMMUNOGLOBULIN G, QN, SERUM 548 mg/dL (Below low threshold) Range: 700- 1600 IMMUNOGLOBULIN A, QN, SERUM 25 mg/dL (Below low threshold) Range: 64-422 IMMUNOGLOBULIN M, QN, SERUM <5 mg/dL (Below low threshold) Range: 26-217 Comments: Verified by repeat analysis----- PROTEIN, TOTAL, SERUM 5.7 g/dL (Below low threshold) Range: 6.0-8.5 ALBUMIN 3.0 g/dL Range: 2.9-4.4 MROJZ-7-GNKCQJPW 0.4 g/dL Range: 0.0-0.4 HLLND-7-CKBCIAPB 0.9 g/dL Range: 0.4-1.0 BETA GLOBULIN 1.0 g/dL Range: 0.7-1.3 GAMMA GLOBULIN 0.5 g/dL Range: 0.4-1.8 M-SPIKE Not Observed g/dL Range: Not Observed GLOBULIN, TOTAL 2.7 g/dL Range: 2.2-3.9 A/G RATIO 1.2 Range: 0.7-1.7 IMMUNOFIXATION RESULT, SERUM Comment Comments: An apparent normal immunofixation pattern.----- PLEASE NOTE: Comment Comments: Protein electrophoresis scan will follow via computer,mail, or welder journeyman delivery.----- FREE KAPPA LT CHAINS,S 15.27 mg/L Range: 3.30-19.40 FREE LAMBDA LT CHAINS,S 12.11 mg/L Range: 5.71-26.30 KAPPA/LAMBDA RATIO,S 1.26 Range: 0.26-1.65 14-Jul-2016 09:21 CBC w/ Auto Diff 7150 WBC 14.2 K/uL (Above high threshold) Range: 4.5-11.0 RBC 2.29 mil/uL (Below low threshold) Range: 3.60-5.00 HGB 7.5 g/dL (Below low threshold) Range: 12.0-16.0 Comments: Verified by Repeat AnalysisVariance from previous testing noted.----- HCT 23.5 % (Below low threshold) Range: 36.0-48.0 MCV 102.8 fL (Above high threshold) Range: 80.0-99.0 MCH 32.8 pg (Above high threshold) Range: 27.3-32.5 MCHC 31.9 % (Below low threshold) Range: 32.0-36.0 RDW 20.8 % (Above high threshold) Range: 11.6-14.8 PLATELETS 209 K/uL Range: 150-400 MPV 8.3 fL Range: 6.0-11.0 %NEUTRO 74.5 % Range: 37.0-80.0 %LYMPHS 14.8 % Range: 13.0-50.0 %MONO 3.8 % Range: 0.0-12.0 %EOS 4.7 % Range: 0.0-7.0 %BASO 0.4 % Range: 0.0-2.5 %HALIMA 1.8 % Range: 0.0-5.0 NEUTRO 10.6 K/uL (Above high threshold) Range: 2.0-6.9 LYMPHS 2.1 K/uL Range: 0.6-3.4 MONOS 0.5 K/uL Range: 0.0-0.9 EOS 0.7 K/uL Range: 0.0-0.7 BASO 0.1 K/uL Range: 0.0-0.2 10:23 Comprehensive Metabolic Panel 1212 SODIUM 142 mmol/L Range: 133-144 POTASSIUM 4.1 mmol/L Range: 3.5-5.1 CHLORIDE 104 mmol/L Range: 98-110 CARBON DIOXIDE 26.1 mmol/L Range: 23.0-33.0 ANION GAP 12 mmol/L Range: 6-16 BUN 35 mg/dL (Above high threshold) Range: 7-18 CREATININE, SERUM 1.63 mg/dL (Above high threshold) Range: 0.55-1.02 BUN:CREATININE RATIO 21 EST GFR, 36 ml/min (Below low threshold) Range: >60 EST GFR, NON-AFR SLOVENIAN 30 ml/min (Below low threshold) Range: >60 Comments: EST GFR is reported in ml/min per 1.73 m2 of body surface area. ----- GLUCOSE 114 mg/dL (Above high threshold) Range: 70-100 ALK PHOSPHATASE 77 U/L Range: 46-116 TOTAL BILIRUBIN 0.40 mg/dL Range: 0.20-1.00 AST 25 U/L Range: 8-35 ALT 13 U/L (Below low threshold) Range: 14-59 ALBUMIN 3.3 g/dL (Below low threshold) Range: 3.4-5.0 TOTAL PROTEIN 6.4 g/dL Range: 6.4-8.2 A/G RATIO 1.1 units Range: 1.0-1.8 CALCIUM 9.4 mg/dL Range: 8.5-10.1 10:23 PHOSPHORUS 1145 Comments: Items were attached [...]
--- OUTSIDE RECORDS SUMMARY | 2017-02-26 16:32 | XMS REPORT | Summary of Care ---
Author Author Trevor Diaz D.O. Organization Unknown Address [address], [place] [id number] Phone Unavailable Care Team Providers Care Rice Cleaning Machine Tender Name Role Phone Cece Streeter M.D. Unavailable Unavailable Chapito Muro Unavailable Unavailable Henry Mendoza M.D. Unavailable Unavailable Cece Diaz D.O. Unavailable Unavailable Krunal Lennon M.D. 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 * Quantity: 30 Refills: 5 EdChapito benitez * Start 07-Mar-2015 Active ROPINIRole HCl - 1 MG Oral Tablet TAKE 1/2 TABLET AT BEDTIME FOR 1 WEEK THEN INCREASE TO 1 TAB . TAKE IN ADDITION TO ROPINIROLE 2 MG TAB * Quantity: 90 Refills: 0 Bhaskar Chapito * Start Active Ondansetron 4 MG Oral [...] DAILY. * Quantity: 30 Refills: 3 Bhaskar Chapito * Start 15-Aug-2014 Active Plavix 75 MG [...] week apart. * Quantity: 30 Refills: 0 Fluck M.D., Krunal * Start 26-Aug-2016 Active Atorvastatin Calcium 20 MG Oral Tablet * Refills: 0 Sourk M.D., Stefan Zhao * Start 16-Sep-2016 Active LORazepam 0.5 MG [...] Aortic Valve Replacement RENAL PROFILE 1240 Ordered: 16-Dec-2016 Iron Panel with TIBC 1612 Ordered: 16-Dec-2016 Immunization Name Dates Details Influenza Lot #: [id number] on: 02-Aug-2010 Influenza Lot #: [id number] on: 24-Aug-2012 Pneumo (Pneumovax) Lot #: [id number] on: 24-Aug-2012 Fluzone High-Dose 0.5 ML Intramuscular Suspension Prefilled Syringe Lot #: [id number] on: 25-Jul-2015 Tdap (Adacel) Lot #: [id number] on: 05-Nov-2015 Fluzone High-Dose 0.5 ML Intramuscular Suspension Prefilled Syringe Lot #: [id number] on: 02-Sep-2016 Family History Name Dates Details [...] smoker Vital Signs Date Test Result Details 25-Dec-2016 10:38 BP Systolic 114 mm[Hg] Status: [...] BP Systolic 118 mm[Hg] Status: Comments: Location: LUE; Position: Sitting BP Diastolic 74 mm[Hg] Status: Comments: Location: LUE; Position: Sitting Heart Rate 70 /min Status: Comments: Location: [...] low threshold) Range: >60 EST GFR, NON-AFR SCOTTISH 35 ml/min (Below low threshold) Range: >60 [...] 0-2 /HPF Range: 0-10 -Nov-2016 13:21 Haptoglobin [id number] Comments: ORDER IN BOOK UNDER NOVEMBER 2016Testing performed at: [facility]DA[facility], [address] [place] [address], [place], [address], , Hand Ii Blocker: KEILA Carranza MD HAPTOGLOBIN 115 mg/dL Range: 34-200 17:01 VIVIAN PE and FLC Serum [id number] Comments: ORDER IN BOOK UNDER NOVEMBER 2016Testing performed at: [DA] [facility], [address] [place] [address], [place], [address], , Hand Ii Blocker: KEILA Carranza MD IMMUNOGLOBULIN G, QN, SERUM 949 mg/dL Range: 700-1600 IMMUNOGLOBULIN A, QN, SERUM 64 mg/dL Range: 64-422 IMMUNOGLOBULIN M, QN, SERUM 33 mg/dL Range: 26-217 PROTEIN, TOTAL, SERUM 5.9 g/dL (Below low threshold) Range: 6.0-8.5 ALBUMIN 2.9 g/dL Range: 2.9-4.4 UMPCO-0-KVYCKRVK 0.4 g/dL Range: 0.0-0.4 GLFZC-1-YDMIDHXU 0.8 g/dL Range: 0.4-1.0 BETA GLOBULIN 0.9 g/dL Range: 0.7-1.3 GAMMA GLOBULIN 0.9 g/dL Range: 0.4-1.8 M-SPIKE Not Observed g/dL Range: Not Observed GLOBULIN, TOTAL 3.0 g/dL Range: 2.2-3.9 A/G RATIO 1.0 Range: 0.7-1.7 IMMUNOFIXATION RESULT, SERUM Comment Comments: An apparent normal immunofixation pattern.----- PLEASE NOTE: Comment Comments: Protein electrophoresis scan will follow via computer,mail, or college hire delivery.----- FREE KAPPA LT CHAINS,S 17.05 mg/L Range: 3.30-19.40 FREE LAMBDA LT CHAINS,S 23.20 mg/L Range: 5.71-26.30 KAPPA/LAMBDA RATIO,S 0.73 Range: 0.26-1.65 04-Dec-2016 08:31 URINE CULTURE [id number] Comments: [employer] [facility] at: [email or web address], [address] [place], [address], Hand Ii Blocker: Gigi Alberto D.O., MPHQuest Collection Date/Time: [id number] Results Received Date/Time: [id number] Reported Date/Time: [id number] FASTING:NOQuest performed at: [employer], [facility], [address] [place], [address], Hand Ii Blocker: Gigi Alberto D.O., MPHQuest Collection Date/Time: [id number] Results Received Date/Time: [id number] Reported Date/Time: FASTING:NO CULTURE, URINE, ROUTINE SEE NOTE (Abnormal) Comments: CULTURE, URINE, ROUTINE MICRO NUMBER: [id number] TEST STATUS: FINAL SPECIMEN SOURCE : URINE [...] low threshold) Range: >60 EST GFR, NON-AFR SCOTTISH 38 ml/min (Below low threshold) Range: >60 [...] Lennon M.D. On 30-Dec-2016 13:30 Appointment; Provider: Krunal Lennon M.D. On 26-Dec-2016 09:00 Interventions Provided Labs/Procedures/Imaging* BASIC METABOLIC PROFILE 1210; Done: Dec 25 2016 10:55AM * CBC w/ Auto Diff 7150; Done: Dec 25 2016 10:55AM * Urinalysis, Reflex to Microscopic or Culture PRN [id number]; Done: Dec 25 2016 10: 55AM Instructions Name Dates Details Instructions not documented [...]
--- OUTSIDE RECORDS SUMMARY | 2017-02-26 16:33 | XMS REPORT ---
Author Author GENERATED, SYSTEM Organization Unknown Address Unknown Phone Unavailable Care Team Providers Care Automatic Typewriter Inspector Name Role Phone MD YEHUDA, CHINO [phone] Reason For Visit Reason for Visit from 10/23/2014 11:39 AM:* Pt Stated Reason for Adm : IVIG infusion Chief Complaint CVIDS Social History Functional Status Functional Status from 10/23/2014 11:39 AM:* LOC : Alert * Oriented To : Person,Place,Time,Event Vital Signs Hospital Vital Signs from 10/23/2014 2:40 PM:* Height : 5/0 ft,in * Pulse : 77 * Respirations : 18 * BP : 157/87 Hospital Vital Signs from 10/23/2014 2:25 PM:* Height : 5/0 ft,in * Pulse : 70 * Respirations : 18 * BP : 143/87 Hospital Vital Signs from 10/23/2014 2:10 PM:* Height : 5/0 ft,in * Pulse : 80 * Respirations : 18 * BP : 171/94 Hospital Vital Signs from 10/23/2014 1:55 PM:* Height : 5/0 ft,in * Pulse : 79 * Respirations : 18 * BP : 170/82 Hospital Vital Signs from 10/23/2014 1:40 PM:* Height : 5/0 ft,in * Pulse : 73 * Respirations : 18 * BP : 175/70 Hospital Vital Signs from 10/23/2014 1:25 PM:* Height : 5/0 ft,in * Pulse : 68 * Respirations : 18 * BP : 157/91 Hospital Vital Signs from 10/23/2014 1:10 PM:* Height : 5/0 ft,in * Pulse : 67 * Respirations : 18 * BP : 166/87 Hospital Vital Signs from 10/23/2014 12:55 PM:* Height : 5/0 ft,in * Pulse : 67 * Respirations : 18 * BP : 155/83 Hospital Vital Signs from 10/23/2014 12:38 PM:* Height : 5/0 ft,in * Pulse : 67 * Respirations : 18 * BP : 143/81 Hospital Vital Signs from 10/23/2014 12:22 PM:* Height : 5/0 ft,in * Pulse : 68 * Respirations : 18 * BP : 166/84 Hospital Vital Signs from 10/23/2014 12:09 PM:* Height : 5/0 ft,in * Pulse : 67 * Respirations : 16 * BP : 143/81 Hospital Vital Signs from 10/23/2014 11:55 AM:* Height : 5/0 ft,in * Pulse : 67 * Respirations : 16 * BP : 145/84 Hospital Vital Signs from 10/23/2014 11:40 AM:* Height : 5/0 ft,in * Pulse : 69 * Respirations : 16 * BP : 160/79 Hospital Vital Signs from 10/23/2014 11:25 AM:* Height : 5/0 ft,in * Pulse : 72 * Respirations : 16 * BP : 155/87 Hospital Vital Signs from 10/23/2014 10:55 AM:* Height : 5/0 ft,in * Temperature : 97.9 F * Pulse : 72 * Respirations : 18 * BP : 149/95 Results Problems Encounter Diagnosis No relevant problems [...]
--- OUTSIDE RECORDS SUMMARY | 2017-02-26 16:33 | XMS REPORT | Continuity of Care Document ---
Author Author [facility] Organization [facility] Address Unknown Phone Unavailable Support Name Relationship Address Phone ROLAND CABRAL DO Caregiver [facility] [phone] [facility] [address] [place] [address] ENZO BIRCH MD Caregiver [address] [place] [address] ELISABET TERAN Next Of Kin [address] [place], [place] [id number] Insurance Providers Payer Name Policy Number Subscriber Name Relationship Medicare [id number] Genesis Duque 19 Self [facility] [employer] Plan [id number] Genesis Duque 18 Self Advance Directives Directive [...] Unknown Active Left leg pain Unknown Active Surgical Problems Problem Onset [...] Every 6 Hours PRN PAIN 06/06/14 Active Tramadol HCl 50 Mg PO Every 6 Hours PRN PAIN 30 Qty 06/06/14 Active Social History Social History Problem Response Recorded Date/Time Smoking Status Never smoker 04/27/2014 6:52pm Hx Alcohol Use No 06/06/2014 7:31pm Has the pt used tobacco in the last 12 months No 04/27/2014 6:52pm Hospital Discharge Instructions Instructions: Care Instructions: Reason for Hospitalization: Severe Anemia Discharge Diet: As per pre-hospitalization Discharge Activity: As per pre-hospitalization Follow Up Appointments: Dr. Hurst - April at 8:[address] Cabral - April at 1:45 pm Patient Instructions: Lab - CBC [place] C[place] [facility] [place] appointment with Dr Cabral. Notify Physician If: Fatigue, weakness, dark stools, gastrointestinal bleeding occur. Condition at time of discharge: Good Care Plan Discharge Patient: Goal: Understand discharge plan Patient Instructions: see patient instructions Increased or foul smelling drainage Chills IF BLEEDING, PAIN OR PROGRESSIVE SWELLING OCCURS TO THE SITE, APPLY PRESSURE AND CALL 911. Condition at time of discharge: Fair remove the dressing and notify your surgeon. Notify Physician If: Call your Surgeon if you have: 1.Chest pain, difficulty breathing, fever>100.5 degrees, chills, heart rate >100, confusion, or persistent nausea/vomitting. 2.Severe pain, swelling, redness, or warmth in either of your legs. 3.During office hours, call [phone] 4. 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 Condition at time of discharge: Good Care Plan Discharge Patient: Patient Instructions: see patient instructions Plan of Care Discharge Date 05/03/14 6:17pm Instructions/Education Provided [facility] Congestive Heart Failure Anemia of Chronic Disease Prescriptions See Medications Section Functional Status Query Response Date Recorded Physical Hygiene Self June 06, 2014 7:31pm Disabilities Hearing Visual May 03, 2014 5:22pm Devices Used Dentures Glasses Walker April 19, 2014 2:13pm Dressing Self April 19, 2014 2:13pm Ambulation Self May 03, 2014 5:22pm Diet Self April 19, 2014 2:13pm Mental Status Alert Oriented May 03, 2014 5:22pm Disabilities Hearing Visual May 03, 2014 5:22pm Devices Used Dentures Glasses Walker April 19, 2014 2:13pm Physical Hygiene Self June 06, 2014 7:31pm Dressing Self April 19, 2014 2:13pm Ambulation [...] Vital Signs Vital Response Date/Time Temperature (Fahrenheit) 97.7 deg F (96.8 - 99.1) Temperature (Calculated Celsius) 36.11571 degrees C (36.0 - 37.3) Pulse Rate (adult) 72 bpm (60 - 100) Respiratory Rate 16 breaths/min (10 - 20) O2 Sat by Pulse Oximetry 95 % (90 - 100) Oxygen Flow Rate 2 L/min Blood Pressure 175/77 mm Hg Height 5 ft 1 in Weight 108 lb Body Mass Index 20.0 kg/m^2 Results Test Source Date Result Interp. Ref. Range Comments Absolute Reticulocyte Count June 01, 2014 8:40am 0.1087 T/MM3 H 0.0300 -0.0900 Activated Partial Thromboplast Time May 01, 2014 4:20am 26.1 SEC N 24- 36 Ordering r/o VTE No Alanine Aminotransferase (ALT/SGPT) June 01, 2014 8:40am 23 U/L N 9- 52 Albumin June 01, 2014 8:40am 4.3 G/DL N 3.5-5.0 Albumin/Globulin Ratio June 01, 2014 8:40am 1.3 RATIO N 1.1-2.2 Alkaline Phosphatase June 01, 2014 8:40am 113 U/L N 38-126 Jxrir-1-Ljuxwepye May 11, 2014 8:50am 0.6 g/dL H - ORDERED BY DR FORD Uvkhx-1-Nggcmpjum (%) May 11, 2014 8:50am 10.4 % H - ORDERED BY DR FORD Lueoe-3-Xwrajnjzl May 11, 2014 8:50am 0.9 g/dL - ORDERED BY DR FORD Hmyws-2-Cyuubgogf (%) May 11, 2014 8:50am 16.0 % - ORDERED BY DR FORD Anion Gap June 01, 2014 8:40am 13 MEQ/L N 5-15 Anisocytosis May 04, 2014 9:05am 2+ - Aspartate Amino Transf (AST/SGOT) June 01, 2014 8:40am 44 U/L H 14-36 BUN/Creatinine Ratio June 01, 2014 8:40am 26 RATIO N 6-26 Band Neutrophils # June 01, 2014 8:40am 0.3 T/MM3 - Band Neutrophils % June 01, 2014 8:40am 2.0 % N 0-6 Basophils # (Auto) May 25, 2014 8:30am 0.1 T/MM3 N 0-0.2 Basophils # (Manual) April 28, 2014 10:43am 0.2 T/MM3 N 0-0.2 Basophils % (Manual) April 28, 2014 10:43am 1.0 % N 0-2 Basophils (%) (Auto) May 25, 2014 8:30am 1.4 % N 0-2 Blood Smear Pathologist Review May 01, 2014 4:20am Sent for review - Blood Urea Nitrogen June 01, 2014 8:40am 23.0 MG/DL H 7-17 C-Reactive Protein April 10, 2014 1:32pm 70.1 MG/L H 0-9 Calcium Level June 01, 2014 8:40am 10.0 MG/DL N 8.4-10.2 Calculated Osmolality June 01, 2014 8:40am 281 MOSM/KG H 261-280 Carbon Dioxide Level June 01, 2014 8:40am 34 MEQ/L H 22-30 Chloride Level June 01, 2014 8:40am 97 MEQ/L L 98-107 Cold Agglutinin Titer April 28, 2014 10:43am Negative - Conjugated Bilirubin April 28, 2014 7:55pm 0.00 MG/DL N 0.00-0.30 COMMENT TO BE TAKEN WITH NEXT BLOOD DRAW Corrected White Blood Count April 30, 2014 4:35am 18.2 T/MM3 H 4.5-11.0 Creatine Kinase MB April 28, 2014 10:45pm 0.7 NG/ML N 0-3.4 Creatinine June 01, 2014 8:40am 0.9 MG/DL N 0.7-1.2 D-Dimer May 01, 2014 4:20am 747 NG/ML H 0-230 <224 NG/ML=PRESUMPTIVE NEGATIVE FOR PE OR DVT>224 NG/ML=ADDITIONAL EVALUATION FOR PE OR DVT RECOMMENDED Eosinophils # (Auto) May 25, 2014 8:30am 0.1 T/MM3 N 0-0.5 Eosinophils # (Manual) June 01, 2014 8:40am 0.3 T/MM3 N 0-0.5 Eosinophils % (Manual) June 01, 2014 8:40am 2.0 % N 0-4 Eosinophils (%) (Auto) May 25, 2014 8:30am 1.0 % N 0-4 Erythrocyte Sedimentation Rate April 10, 2014 1:32pm > 100 MM/HR H 0-20 Erythropoietin April 11, 2014 5:59am 17.9 mIU/mL - Reference Range: 2.6 - 18.5 Test Performed by: [facility] [address] [place] [address] Usability Architect: Amos Montero III, M.D. Erythropoietin performed at [facility], [address] [place] [address] Tile Fitter Winston Camacho MD Ferritin April 11, 2014 [...] % - Immunoelectrophoresis, no IMQ performed at [facility], [address] [place] [address] Tile Fitter Leonidas Camacho MD Gamma Glutamyl Transpeptidase April 28, 2014 10:43am 120 U/L H 8-78 Globulin June 01, 2014 8:40am 3.2 G/DL N 2.4-3.6 Glucose Level June 01, 2014 8:40am 95 MG/DL N 65-110 Haptoglobin May 11, 2014 8:50am 268 mg/dL H - Haptoglobin performed at [facility], [address] [place], [place] [address]Medical Director Leonidas Camacho MD Hematocrit June 01, 2014 8:40am 35.4 % L 36-46 Hemoglobin June 01, 2014 8:40am 10.7 GM/DL L 12-16 Hemoglobin A1c April 11, [...] 5:59am 5.6 umol/L - Homocysteine performed at [facility], [address] [place] [id number] Director Leonidas Camacho MD Clarke-Mayra Colon April 27, 2014 7:35pm 1+ - Hypochromasia May 04, 2014 9:05am 2+ - Immature Reticulocyte Fraction June 01, 2014 8:40am 11.4 % N 3.3-14.5 Immunoglobulin A May 11, 2014 8:50am < 40.00 MG/DL L 70-[address] FORD Immunoglobulin G May 11, 2014 8:50am 465.73 MG/DL L 700-[address] FORD Immunoglobulin G Total June 01, 2014 10:00am 1070 mg/dL - Reference Range:767 - 1590 Test Performed by: [place] [address] Usability Architect: Amos Montero III, M.D. Immunoglobulin G1 June 01, 2014 10:00am 684 mg/dL - Reference Range :341 - 894 Test Performed by: [place] [address] Usability Architect: Amos Montero III, M.D. Immunoglobulin G2 June 01, 2014 10:00am 248 mg/dL - Reference Range :171 - 632 Immunoglobulin G3 June 01, 2014 10:00am 38.7 mg/dL - Reference Range:18.4 - 106.0 Test Performed by: [place] [address] Usability Architect: Amos Montero III, M.D. IgG Subclasses [place] [address] Tile Fitter Winston Camacho MD Reference Range: 18.4 - 106.0 Test Performed by: [place] [address] Usability Architect: Amos Montero III, M.D. --- 06/03/14 0940 --- [id number] previously reported as: 38.7 mg/dL Reference Range: 18.4 - 106.0 Test Performed by: [facility] [address] [place] [address] Usability Architect: Amos Montero III, M.D. IgG Subclasses performed at [place] [id number] Tile Fitter Winston Camacho MD Immunoglobulin G4 June 01, 2014 10:00am 8.5 mg/dL - Reference Range :2.4 - 121.0 Test Performed by: [facility] [address] [place] [address] Usability Architect: Amos Montero III, M.D. IgG Subclasses performed at [facility], [address] [place] [address] Tile Fitter Winston Camacho MD Immunoglobulin M May 11, [...] Reference Range 5.5% - 12.7%.Testing performed at [place], [place] Lactate Dehydrogenase June 01, 2014 8:40am 1567 U/L H 313-618 Large Platelets May 04, 2014 9:05am Few - Lymphocytes # (Auto) May 25, 2014 8:30am 1.9 T/MM3 N 1-4.8 Lymphocytes # (Manual) June 01, 2014 8:40am 2.9 T/MM3 N 1-4.8 Lymphocytes % (Manual) June 01, 2014 8:40am 18.0 % L 23-45 Lymphocytes (%) (Auto) May 25, 2014 8:30am 20.6 % L 23-45 Macrocytosis April 18, 2014 8:15am 1+ - Magnesium Level May 04, 2014 9:05am 2.0 MG/DL N 1.6-2.3 Mean Corpuscular Hemoglobin June 01, 2014 8:40am 31.0 UUG N 26-34 Mean Corpuscular Hemoglobin Concent June 01, 2014 8:40am 30.2 GM/DL L 31-37 Mean Corpuscular Volume June 01, 2014 8:40am 102.6 UM3 H 80-100 Mean Platelet Volume June 01, 2014 8:40am 11.5 UM3 N 9.4-12.4 Metamyelocytes # April 29, 2014 4:19am 0.2 T/MM3 - Metamyelocytes % April 29, 2014 4:19am 1.0 % H 0-0 Methylmalonic Acid April 11, 2014 5:59am 0.15 nmol/mL - Test Performed by:[place] [address] Usability Architect: Amos Montero III, M.D. Methylmalonic Acid, Serum performed at [facility], [address] [place] [address] Tile Fitter Winston Camacho MD Monocytes # (Auto) May 25, 2014 8:30am 0.8 T/MM3 N 0-0.8 Monocytes # (Manual) June 01, 2014 8:40am 0.2 T/MM3 N 0-0.8 Monocytes % (Manual) June 01, 2014 8:40am 1.0 % N 0-9.0 Monocytes (%) (Auto) May 25, 2014 8:30am 9.2 % H 0-9.0 Mycoplasma pneumoniae IgG Antibody [...] with M. pneumoniae. Mycoplasma Antibodies performed at [facility], [address] [place] [address] Tile Fitter Leonidas Camacho MD Myelocytes # April 16, 2014 5:25am 0.2 T/MM3 - Myelocytes % April 16, 2014 5:25am 1.0 % H 0-0 Neutrophils # (Auto) May 25, 2014 8:30am 6.1 T/MM3 N 1.8-7.7 Neutrophils # (Manual) June 01, 2014 8:40am 12.2 T/MM3 H 1.8-7.7 Neutrophils % (Manual) June 01, 2014 8:40am 77.0 % H 33-66 Neutrophils (%) (Auto) May 25, 2014 8:30am 65.9 % N 33-66 Nucleated Red Blood Cells May 04, 2014 9:05am 2 - Ovalocytes April 17, 2014 5:15am 1+ - Percent Iron Saturation April 11, 2014 8:00pm 8 % L 9-55 COMMENT with next troponin draw. Percent Reticulocyte Count June 01, 2014 8:40am 3.2 % H 0.6-1.7 Phosphorus Level May 03, 2014 4:40am 5.1 MG/DL H 2.5-4.5 Platelet Count June 01, 2014 8:40am 306 T/MM3 N 130-400 Poikilocytosis May 04, 2014 9:05am 1+ - Potassium Level June 01, 2014 8:40am 3.6 MEQ/L N 3.6-5 Prothromb Time International Ratio May 01, 2014 4:20am 1.03 N 0.81- 1.09 THERAPUTIC RANGE=2.00-3.00 FOR ANTI-THROMBOSIS THERAPUTIC RANGE=2.50- 3.50 FOR IMPLANTED VALVE RDW Standard Deviation June 01, 2014 8:40am 66.1 FL H 36.9-50.2 Red Blood Count June 01, 2014 8:40am 3.45 M/MM3 L 4.00-5.20 Reference Lab Test Name April 13, 2014 8:10am Sent out - Reticulocyte Hgb Content (CHr) June 01, 2014 8:40am 35.1 PG N 30.8- 36.6 Schistocytes May 04, 2014 9:05am 1+ - Sodium Level June 01, 2014 8:40am 144 MEQ/L N 134-144 Stomatocytes April 27, 2014 7:35pm 2+ - Stool Occult Blood May 02, 2014 10:30am Negative - Has specimen been collected/obtained? YCOMMENT 2 OF 3 Target Cells April 27, 2014 7:35pm 1+ - Thyroid Stimulating Hormone (TSH) April 10, 2014 12:46pm 1.25 MIU/L N 0.47-4.68 COMMENT add to blood already drawn in lab. Total Bilirubin June 01, 2014 8:40am 0.30 MG/DL N 0.20-1.30 Total Creatine Kinase April 28, 2014 10:45pm < 20 U/L L 30-135 Total Iron Binding Capacity April 11, 2014 8:00pm 297 UG/DL N 261-497 COMMENT with next troponin draw. Total Protein June 01, 2014 8:40am 7.5 G/DL N 6.3-8.2 Troponin I June 01, 2014 10:00am 0.022 ng/ml N 0-0.12 Unconjugated Bilirubin April 28, 2014 7:55pm 0.40 MG/DL N 0.00-1.10 COMMENT TO BE TAKEN WITH NEXT BLOOD DRAW Uric Acid June 01, 2014 8:40am 3.6 MG/DL N 2.5-7.5 Urine Albumin (%) April 13, 2014 9:15pm 72.1 % - Has specimen been collected/obtained? YCOMMENT 24 hour urine Urine Rpthz-2-Hzdsikpnl (%) April 13, 2014 9:15pm 6.8 % - Has specimen been collected/obtained? YCOMMENT 24 hour urine Urine Bxokc-0-Unhlubpgk (%) April 13, 2014 9:15pm 8.9 % - Has specimen been collected/obtained? YCOMMENT 24 hour urine Urine Bacteria April 27, 2014 9:20pm 3+ H - Has specimen been collected/ obtained? Y Urine Bilirubin April 27, 2014 9:20pm Negative - Has specimen been collected/obtained? Y Urine Blood April 27, 2014 9:20pm Negative - Has specimen been collected/obtained? Y Urine Collection Duration April 13, 2014 9:15pm 24 Hr - Protein electrophoresis, Urine performed at [facility], [address] [place] [address] Tile Fitter Leonidas Camacho MD Urine Collection Time April 13, 2014 9:15pm 24 HRS - Has specimen been collected/obtained? YCOMMENT 24-hour urine Urine Collection Type April 27, 2014 9:20pm Cleancatch-midstream - Has specimen been collected/obtained? Y Urine Color April 27, 2014 9:20pm Yellow - Has specimen been collected /obtained? [...] % - Eosinophil Count, Urine performed at [facility], [address] [place] [address] Tile Fitter Leonidas Camacho MD Urine Gamma Globulin (%) April 13, 2014 9:15pm 6.6 % - Has specimen been collected/obtained? YCOMMENT 24 hour urine Urine Glucose (UA) April 27, 2014 9:20pm Negative - Has specimen been collected/obtained? Y Urine Hemosiderin April 27, 2014 9:20pm Negative - Test Performed by: [facility] [place] [address] Usability Architect: Amos Montero III, M.D. Hemosiderin, Urine performed at [facility], [address] [place] [address] Tile Fitter Winston Camacho MD Urine Hyaline Casts April 14, 2014 7:55am 5-10 /LPF - Has specimen been collected/obtained? Y Urine Ketones April 27, 2014 9:20pm Negative - Has specimen been collected/obtained? Y Urine Leukocyte Esterase April 27, 2014 9:20pm Negative - Has specimen been collected/obtained? Y Urine Nitrite April 27, 2014 9:20pm Negative - Has specimen been collected/obtained? Y Urine Protein April 27, 2014 9:20pm 2+ H - Has specimen been collected/ obtained? Y Urine RBC April 27, 2014 9:20pm None seen /HPF - Has specimen been collected/obtained? Y Urine Random Creatinine April 13, 2014 4:33pm 89.7 MG/DL - Has specimen been collected/obtained? Y Urine Random Urea Nitrogen April 13, 2014 4:33pm 523.0 MG/DL - Has specimen been collected/obtained? Y Urine Specific [place] April 27, 2014 9:20pm 1.015 - Has specimen been collected/obtained? Y Urine Squamous Epithelial Cells April 14, 2014 7:55am 5-10 - Has specimen been collected/obtained? Y Urine Total Protein April 13, 2014 9:15pm 32 mg/dL H - Protein electrophoresis, Urine performed at [facility], [address] [place] [address] Tile Fitter Leonidas Camacho MD Urine Total Protein 24 [...] specimen been collected/obtained? Y Urine Turbidity April 27, 2014 9:20pm Sl cloudy - Has specimen been collected/obtained? Y Urine Urobilinogen April 27, 2014 9:20pm 0.2 EU/DL - Has specimen been collected/obtained? Y Urine WBC April 27, 2014 9:20pm 0-1 /HPF - Has specimen been collected /obtained? Y Urine pH April 27, 2014 9:20pm 6.0 - Has specimen been collected/ obtained? Y Vitamin B12 Level April 11, 2014 5:59am 378 PG/ML N 239-931 White Blood Count June 01, 2014 8:40am 15.9 T/MM3 H 4.5-11.0 Chemistry Specimen Hemolysis June 01, 2014 10:00am 31 H 0-25 0-25: No Hemolysis.26-70: Slight Hemolysis - can falsely elevate K and Urine Protein. 71-285: Moderate Hemolysis - can falsely elevate K, Troponin I, CA 19-9, PTH, CSF GLucose, and Urine Protein, and can falsely decrease Phenytoin. 286-999: Gross Hemolysis - can falsely elevate K, Troponin I, CA 19-9, PTH, CSF Glucose, and Urine Protine, and can falsely decrease Phenytoin. Recommend specimen recollection. 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 Kris Gonzalez M.D. 13:43 04/12/2014 * Findings: Monoclonal B-Cell Population: [place]rett description and % total cells: CD45 vs SSC; CD19 vs SSC; about 2% of the total cells. Phenotype: The monoclonal B-cells are brightly CD45+; moderately CD19+/CD20+/FMC7+/Surface Lambda+; trace dim CD11c+/CD38+; negative for CD10, CD5, CD103, CD25 and Surface [place]. These B-cells comprise about 9% of the gated lymphocytes. * Lymphocytes: Everett description and % total cells: CD45 vs [...] 18, 2014 8:15am Few - Turbidity June 01, 2014 8:40am < 20 0-20 Reactive Lymphocytes % May 02, 2014 4:52am 1.0 % H 0-0 Glomerular Filtration Rate Calc June 01, 2014 8:40am 60 - Serum Total Protein May 11, 2014 8:50am 5.5 g/dL L - Immunoelectrophoresis, no IMQ performed at [facility], [address] [place] [address] Tile Fitter Leonidas Camacho MD Free [place]/Lambda Light Chain Ratio May 11, 2014 8:50am 0.8682 - Reference Range:0.2600-1.65 Test Performed by: [place] [address] Usability Architect: Amos Montero III MChristie Immunoglobulin Free Light Chains performed at [facility], [address] [place] [address] Tile Fitter Winston Camacho MD Reactive Lymphocytes # May 02, 2014 4:52am 0.1 T/MM3 H 0-0 Immature Granulocyte # (Auto) May 25, 2014 8:30am 0.17 T/MM3 H 0.00- 0.03 Immature Granulocyte % (Auto) May 25, 2014 8:30am 1.9 % H 0.0-0.5 Urine Total [place]/Lambda Ratio April 13, 2014 9:15pm See below - Ratio not calculated because the Total [place] and TotalLambda values are less than the reportable range. Test Performed by: [place] [address] Usability Architect: Amos Montero III, M.D. Immunoglobulin Light Chains, [place] [address] Tile Fitter Winston Camacho MD Ur Total [place] Light Chains 24 Hr April 13, 2014 9:15pm <0.9000 mg/dL - Test Performed by:[place] [address] Usability Architect: Amos Montero III, M.D. Immunoglobulin Light Chains, [place] [address] Tile Fitter Winston Camacho MD Test Performed by: [place] [address] Usability Architect: Amos Montero III, M.D. --- 04/17/14 0823 --- UIFLCKA previously reported as: <0.9000 mg/dL Test Performed by: [place] [address] Usability Architect: Amos Montero III, M.D. Immunoglobulin Light Chains, [place] [address] Tile Fitter Winston Camacho MD Ur Total Lambda Light [...] septic shock highly indicated. Icterus Index June 01, 2014 8:40am < 2 0-7 PA-Bmg-I-Type Natriuretic Peptide June 01, 2014 9:00am 756 PG/ML H 0- 175 Rule in cut points: <50 years old=450; 50-75 years old=900; >75 years old=1800; When utilizing ProBNP rule-in cut points, adjustment for impaired renal function is typically not required. Free [place] Light Chains May 11, 2014 8:50am 1.12 mg/dL - Reference Range:0.3300-1.94 Free Lambda Light Chains May 11, 2014 8:50am 1.29 mg/dL - Reference Range:0.5700-2.63 Test Performed by: [place] [address] Usability Architect: Amos Montero III, M.D. Immunoglobulin Free [place] [address] Tile Fitter Winston Camacho MD Reference Range: 0.5700-2.63 Test Performed by: [place] [address] Usability Architect: Amos Montero III, M.D. --- 05/13/14 1254 --- IFLCLA previously reported as: 1.29 mg/dL Reference Range: 0.5700-2.63 Test Performed by: [place] [address] Usability Architect: Amos Montero III, M.D. Immunoglobulin Free [place] [address] Tile Fitter Winston Camacho MD Plasma Oxyhemoglobin April 13, [...] the complete clinical context. Test Performed by: [place] [address] Usability Architect: Amos Montero III, M.D. Plasma Hemoglobin performed at [address], [place] [address] Tile Fitter Winston Camacho MD Urine Fgpd-9-Rdowywts (%) April 13, 2014 9:15pm 5.6 % - Has specimen been collected/obtained? YCOMMENT 24 hour urine Blood Culture Blood April 28, 2014 7:55pm NO GROWTH AFTER 5 DAYS Urine Culture Urine, Clean Catch-Midstream April 10, 2014 3:40pm Legionella Urinary Antigen Urine April 10, 2014 3:40pm Name: GENESIS DUQUE Unit #: [id number] : 1930 Sex: F Loc / Svc: LUCY DOS: 06/01/14 Signed Report #: [id number] DIAGNOSTIC IMAGING REPORT TYPE OF EXAM: CHEST, PA & LATERAL Dictated By: ED RAINEY MD INDICATION: ITS.REASON: 786.59 OTHER CHEST PAIN CHEST 2-VIEWS UPRIGHT (PA & LAT): COMPARISON: April 28, 2014 FINDINGS: Pulmonary edema has improved. There is some residual airspace opacity in the right lower lobe. Upper lung fletcher appear relatively clear. No pneumothorax or effusion. The heart size and mediastinal contours are unchanged. Left cardiac pacemaker. Multiple coils in the upper abdomen. IMPRESSION: Improved pulmonary edema with some residual airspace opacity in the right lower lobe could represent some residual infection or inflammation. . Procedures Procedure Status Date Provider(s) BLOOD TRANSFUSION SERVICE completed 04/28/14 ROLADN CABRAL DO EGD DIAGNOSTIC BRUSH WASH completed 04/28/14 ROLAND CABRAL DO Encounters Encounter Location Date/Time Departed Emergency Room [facility] 06/06/14 7:07pm Registered [facility] 06/01/14 10:05am Registered [facility] 06/01/14 10:04am Registered [facility] 05/25/14 2:34pm Registered [facility] 05/11/14 8:57am Registered [facility] 05/04/14 9:17am Discharged Inpatient [facility] 04/28/14 11:24am Registered [facility] 04/24/14 8:39am Discharged Inpatient [facility] 04/10/14 4:47pm Registered [facility] 03/17/14 9:14am Recent Diagnosis
--- OUTSIDE RECORDS SUMMARY | 2017-02-26 16:33 | XMS REPORT | Summary of Care ---
Author Author Bruce Saunders M.D. 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 Medications Name Dates Details Multi-Day [...] 1 Chapito Muro * Start 09-Jul-2016 Active Allergies [...] Immunization Name Dates Details Influenza Lot #: [id number] on: 02-Aug-2010 Influenza Lot #: [id number] on: 24-Aug-2012 Pneumo (Pneumovax) Lot #: [id number] on: 24-Aug-2012 Fluzone High-Dose 0.5 ML Intramuscular Suspension Prefilled Syringe Lot #: [id number] on: 25-Jul-2015 Tdap (Adacel) Lot #: [id number] on: 05-Nov-2015 Family History Name Dates Details [...] smoker Vital Signs Date Test Result Details 18-Jul-2016 13:16 BP Systolic 130 mm[Hg] Status: Comments: Location: ; Position: BP Diastolic 63 mm[Hg] Status: Comments: Location: ; Position: Heart Rate 79 /min Status: Comments: Location: ; Physical Findings 18 Status: Comments: Respiration Weight 116 lb Status: Body Mass Index Calculated 20.55 kg/m2 Status: Body Surface Area Calculated 1.53 m2 Status: 14-Jul-2016 15:01 BP Systolic 102 mm[Hg] Status: [...] low threshold) Range: >60 EST GFR, NON-AFR CYPRIOT 32 ml/min (Below low threshold) Range: >60 [...] 524 pg/mL Range: 211-911 04-Jul-2016 12:21 Haptoglobin [id number] Comments: ORDER IN BOOK UNDER Test performed at: [DA] [facility], [address] [place] [address], [phone], , Lab Animal Technician: KEILA Carranza MD HAPTOGLOBIN 215 mg/dL (Above high threshold) Range: 34-200 05-Jul-2016 09:28 VIVIAN PE and FLC Serum [id number] Comments: ORDER IN BOOK UNDER performed at: [DA] [facility], [address] [place] [address] , [place], [address], , Lab Animal Technician: KEILA Carranza MD IMMUNOGLOBULIN G, QN, SERUM 548 mg/dL (Below low threshold) Range: 700- 1600 IMMUNOGLOBULIN A, QN, SERUM 25 mg/dL (Below low threshold) Range: 64-422 IMMUNOGLOBULIN M, QN, SERUM <5 mg/dL (Below low threshold) Range: 26-217 Comments: Verified by repeat analysis----- PROTEIN, TOTAL, SERUM 5.7 g/dL (Below low threshold) Range: 6.0-8.5 ALBUMIN 3.0 g/dL Range: 2.9-4.4 UVWKO-5-ZNDZTWAK 0.4 g/dL Range: 0.0-0.4 LVDFI-0-ONBIHHKN 0.9 g/dL Range: 0.4-1.0 BETA GLOBULIN 1.0 g/dL Range: 0.7-1.3 GAMMA GLOBULIN 0.5 g/dL Range: 0.4-1.8 M-SPIKE Not Observed g/dL Range: Not Observed GLOBULIN, TOTAL 2.7 g/dL Range: 2.2-3.9 A/G RATIO 1.2 Range: 0.7-1.7 IMMUNOFIXATION RESULT, SERUM Comment Comments: An apparent normal immunofixation pattern.----- PLEASE NOTE: Comment Comments: Protein electrophoresis scan will follow via computer,mail, or project architect delivery.----- FREE KAPPA LT CHAINS,S 15.27 mg/L [...] low threshold) Range: >60 EST GFR, NON-AFR CYPRIOT 30 ml/min (Below low threshold) Range: >60 [...] order: PHOS PHOSPHORUS 3.7 mg/dL Range: 2.6-4.7 15-Jul-2016 15:38 Cortisol - AM [id number] Comments: Testing performed at: [DA] [facility], [address] [place] [address], [place], [address], Phone: , Lab Animal Technician: KEILA Carranza MD CORTISOL - AM 33.5 ug/dL (Above high threshold) Range: 6.2-19.4 Plan of Care Name Dates Details Planned Observations Planned Goals not documented Planned Encounters Appointment; Provider: Chapito Muro On 25-Aug-2016 15:30 Appointment; Provider: Stefan Streeter M.D. On 25-Aug-2016 13:15 Appointment; Provider: Krunal Lennon M.D. On 18-Aug-2016 14:30 Appointment; Provider: Juan José Palacios On 04-Aug-2016 14:45 Appointment; Provider: Ry Maurer M.D. On 23-Jul-2016 08:00 Instructions Name Dates Details Instructions not [...]
--- OUTSIDE RECORDS SUMMARY | 2017-02-26 16:33 | XMS REPORT ---
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 Social History Functional Status Functional Status from 10/14/2016 10:50 AM:* LOC : Alert * Oriented To : Person,Place,Time,Event Functional Status from 10/01/2016 11:01 AM:* LOC : Alert * Oriented To : Person,Place,Time Vital Signs Hospital Vital Signs from 10/14/2016 2:53 PM:* Height : 5/0 ft,in * Pulse : 58 * Respirations : 18 * BP : 135/62 Hospital Vital Signs from 10/14/2016 2:32 PM:* Height : 5/0 ft,in * Pulse : 59 * Respirations : 18 * BP : 132/78 Hospital Vital Signs from 10/14/2016 2:17 PM:* Height : 5/0 ft,in * Pulse : 60 * Respirations : 18 * BP : 123/70 Hospital Vital Signs from 10/14/2016 2:02 PM:* Height : 5/0 ft,in * Pulse : 60 * Respirations : 18 * BP : 101/62 Hospital Vital Signs from 10/14/2016 1:47 PM:* Height : 5/0 ft,in * Pulse : 58 * Respirations : 18 * BP : 106/68 Hospital Vital Signs from 10/14/2016 1:32 PM:* Height : 5/0 ft,in * Pulse : 59 * Respirations : 18 * BP : 115/60 Hospital Vital Signs from 10/14/2016 1:17 PM:* Height : 5/0 ft,in * Pulse : 59 * Respirations : 18 * BP : 107/60 Hospital Vital Signs from 10/14/2016 1:02 PM:* Height : 5/0 ft,in * Pulse : 60 * Respirations : 18 * BP : 113/61 Hospital Vital Signs from 10/14/2016 12:47 PM:* Height : 5/0 ft,in * Pulse : 59 * Respirations : 18 * BP : 123/75 Hospital Vital Signs from 10/14/2016 12:18 PM:* Height : 5/0 ft,in * Pulse : 57 * Respirations : 18 * BP : 134/70 Hospital Vital Signs from 10/14/2016 12:02 PM:* Height : 5/0 ft,in * Pulse : 59 * Respirations : 18 * BP : 123/78 Hospital Vital Signs from 10/14/2016 11:48 AM:* Height : 5/0 ft,in * Pulse : 56 * Respirations : 18 * BP : 126/76 Hospital Vital Signs from 10/14/2016 10:50 AM:* Weight : 109/ lbs,oz * Height : 5/0 ft,in * Height : 5/0 ft,in * Temperature : 97.2 F * Pulse : 62 * Respirations : 18 * BP : 138/52 Hospital Vital Signs from 10/01/2016 2:52 PM:* Height : 5/0 ft,in * Pulse : 59 * BP : 144/63 Hospital Vital Signs from 10/01/2016 2:51 PM:* Height : 5/0 ft,in * Pulse : 60 * BP : 129/68 Hospital Vital Signs from 10/01/2016 2:36 PM:* Height : 5/0 ft,in * Pulse : 60 * BP : 133/71 Hospital Vital Signs from 10/01/2016 2:21 PM:* Height : 5/0 ft,in * Pulse : 60 * BP : 125/64 Hospital Vital Signs from 10/01/2016 2:06 PM:* Height : 5/0 ft,in * Pulse : 60 * BP : 120/57 Hospital Vital Signs from 10/01/2016 1:51 PM:* Height : 5/0 ft,in * Pulse : 60 * BP : 120/60 Hospital Vital Signs from 10/01/2016 1:36 PM:* Height : 5/0 ft,in * Pulse : 59 * BP : 104/55 Hospital Vital Signs from 10/01/2016 1:21 PM:* Height : 5/0 ft,in * Pulse : 61 * BP : 104/57 Hospital Vital Signs from 10/01/2016 1:06 PM:* Height : 5/0 ft,in * Pulse : 60 * BP : 116/57 Hospital Vital Signs from 10/01/2016 12:51 PM:* Height : 5/0 ft,in * Pulse : 60 * BP : 144/72 Hospital Vital Signs from 10/01/2016 12:37 PM:* Height : 5/0 ft,in * Pulse : 60 * BP : 144/72 Hospital Vital Signs from 10/01/2016 12:21 PM:* Height : 5/0 ft,in * Pulse : 60 * BP : 148/77 Hospital Vital Signs from 10/01/2016 12:06 PM:* Height : 5/0 ft,in * Pulse : 60 * BP : 141/72 Hospital Vital Signs from 10/01/2016 11:51 AM:* Height : 5/0 ft,in * Pulse : 60 * BP : 152/74 Hospital Vital Signs from 10/01/2016 11:35 AM:* Weight : 108/ lbs,oz * Height : 5/0 ft,in * Temperature : 96.7 F * Pulse : 60 * Respirations : 18 * BP : 164/77 Hospital Vital Signs from 10/01/2016 11:01 AM:* Weight : 48.988/ kg * Height : 5/0 ft,in Results Chemistry from 10/14/2016 11:19 AMCREATININE 1.08 MG/DL H (0.55-1.02 MG/DL) *GFR EST NON AFR BAHRAINI 47 ML/MIN *GFR EST AFR AMER 54 ML/MIN Chemistry from 10/01/2016 11:20 AMCREATININE 1.18 MG/DL H (0.55-1.02 MG/DL) *GFR EST NON AFR BAHRAINI 42 ML/MIN *GFR EST AFR AMER 49 ML/MIN Problems Encounter Diagnosis No relevant problems [...] 8 :57 AM * Completed Procedure Code: 6916525 Procedure Name: not valued, on 08/27/2016 12 :00 AM * Completed Procedure Code: 47633 Procedure Name: not valued, on 08/27/2016 12: 00 AM * Completed Procedure Code: [id number] Procedure Name: not valued, on 07/30/2016 9: 59 AM * Completed Procedure Code: [id number] Procedure Name: not valued, on 07/30/2016 9: 59 AM * Completed Esophagogastroduodenoscopy with control of bleeding, by MD ROOSEVELT DIAZ, on 07/30/2016 9:21 AM * Completed Procedure Code: [id number] Procedure Name: not valued, on 07/21/2016 12 :00 AM * Completed Procedure Code: 60290 Procedure Name: not valued, on 07/21/2016 12: 00 AM * Completed Procedure Code: 79581 Procedure Name: not valued, on 07/21/2016 12: 00 AM * Completed Procedure Code: 09068Q6 Procedure Name: not valued, on 06/21/2016 12 [...]
--- OUTSIDE RECORDS SUMMARY | 2017-02-26 16:33 | XMS REPORT | Continuity of care Document ---
Author Author GENERATED, SYSTEM Organization Unknown Address Unknown Phone Unavailable Purpose Hospital Course Allergies, Adverse Reactions, Alerts * Ceftin causes Unknown. * No Latex Allergy. * No IV Contrast Allergy. Problems No relevant problems exist. Procedures No relevant procedures performed. Medication Medication reconciliation has not been performed. Results Chemistry from 03/08/2014 1:10 PMSODIUM 141 MMOL/L (136-145 MMOL/L) POTASSIUM 4.5 MMOL/L (3.5-5.1 MMOL/L) CHLORIDE 102 MMOL/L (98-107 MMOL/L) TCO2 32.1 MMOL/L H (21.0-32.0 MMOL/L) ANION GAP 6.9 MMOL/L L (8.0-16.0 MMOL/L) BUN 30 MG/DL H (7-18 MG/DL) CREATININE 1.11 MG/DL H (0.43-0.83 MG/DL) BUN/CREATININE RATIO 27.0 H (9.1-17.0 ) GLUCOSE 100 MG/DL H (65-99 MG/DL) GFR EST NON AFR ANGUILLAN 46 ML/MIN GFRA EST AFR AMER 53 ML/MIN CALCIUM 9.7 MG/DL (8.5-10.1 MG/DL) BILIRUBIN TOTAL 0.35 MG/DL (0.20-1.00 MG/DL) TOTAL PROTEIN 7.7 GM/DL (6.4-8.2 GM/DL) ALBUMIN 3.7 GM/DL (3.4-5.0 GM/DL) GLOBULIN 4.0 GM/DL H (2.3-3.5 GM/DL) A/G RATIO 0.9 MG/DL L (1.5-2.2 MG/DL) ALK PHOS 91 U/L (46-116 U/L) ALT (SGPT) 18 U/L (12-78 U/L) AST (SGOT) 26 U/L (15-37 U/L) Hematology from 03/08/2014 1:10 PMWBC 13.1 X10e3/UL H (3.6-11.2 X10e3/UL) RBC 3.54 X10e6/UL L (3.63-4.92 X10e6/UL) HEMOGLOBIN 11.5 G/DL (11.0-14.3 G/DL) HEMATOCRIT 34.0 % (31.2-41.9 %) MCV 96.2 FL (79.0-98.0 FL) MCH 32.6 PG (27.0-33.0 PG) MCHC 33.9 G/DL (32.0-36.0 G/DL) RDW 13.6 % (12.3-17.0 %) PLATELET 210 X10e3/UL (159-386 X10e3/UL) MPV 12.1 FL H (7.4-10.4 FL) AUTOMATED DIFF PERFORMED SEGS 62.8 % LYMPHOCYTES 22.8 % MONOCYTES 9.3 % EOSINOPHILS 4.9 % BASOPHILS 0.2 % ABSOLUTE NEUTROPHILS 8.4 X10e3/UL H (1.8-7.8 X10e3/UL) ABSOLUTE LYMPHOCYTES 3.0 X10e3/UL (1.0-3.0 X10e3/UL) ABSOLUTE MONOCYTES 1.2 X10e3/UL H (0.3-1.0 X10e3/UL) ABSOLUTE EOSINOPHILS 0.6 X10e3/UL H (0.0-0.5 X10e3/UL) ABSOLUTE BASOPHILS 0.0 X10e3/UL (0.0-0.2 X10e3/UL) PLATELET SLIDE REVIEW ADEQUATE (ADEQUATE ) Reference Lab from 03/08/2014 1:10 PMIMMUNOGLOBULIN G 836 mg/dL (700-1600 mg/dL)
--- OUTSIDE RECORDS SUMMARY | 2017-02-26 16:33 | XMS REPORT | Continuity of care Document ---
Author Author GENERATED, SYSTEM Organization Unknown Address Unknown Phone Unavailable Purpose Hospital Course Allergies, Adverse Reactions, Alerts * Ceftin causes Unknown. * No Latex Allergy. * No IV Contrast Allergy. Problems No relevant problems exist. Procedures No relevant procedures performed. Medication Medication reconciliation has not been performed. Results Chemistry from 01/31/2014 12:57 PMANION GAP 4.8 MMOL/L L (8.0-16.0 MMOL/L) A/G RATIO 1.0 MG/DL L (1.5-2.2 MG/DL) ALBUMIN 3.9 GM/DL (3.4-5.0 GM/DL) ALK PHOS 105 U/L (46-116 U/L) ALT (SGPT) 20 U/L (12-78 U/L) AST (SGOT) 29 U/L (15-37 U/L) BUN/CREATININE RATIO 23.4 H (9.1-17.0 ) BILIRUBIN TOTAL 0.33 MG/DL (0.20-1.00 MG/DL) BUN 36 MG/DL H (7-18 MG/DL) CALCIUM 9.8 MG/DL (8.5-10.1 MG/DL) CHLORIDE 104 MMOL/L (98-107 MMOL/L) CREATININE 1.54 MG/DL H (0.43-0.83 MG/DL) GFRA EST AFR AMER 36 ML/MIN GFR EST NON AFR CITIZEN OF [place] 31 ML/MIN GLOBULIN 3.8 GM/DL H (2.3-3.5 GM/DL) GLUCOSE 129 MG/DL H (65-99 MG/DL) POTASSIUM 4.3 MMOL/L (3.5-5.1 MMOL/L) SODIUM 141 MMOL/L (136-145 MMOL/L) TCO2 32.2 MMOL/L H (21.0-32.0 MMOL/L) TOTAL PROTEIN 7.7 GM/DL (6.4-8.2 GM/DL) Chemistry from 02/07/2014 10:28 AMTEST COMMENT CHEM SEE BELOW Hematology from 01/31/2014 12:57 PMHEMATOCRIT 36.5 % (31.2-41.9 %) HEMOGLOBIN 11.7 G/DL (11.0-14.3 G/DL) MCH 31.1 PG (27.0-33.0 PG) MCHC 32.1 G/DL (32.0-36.0 G/DL) MCV 96.8 FL (79.0-98.0 FL) MPV 11.2 FL H (7.4-10.4 FL) PLATELET 208 X10e3/UL (159-386 X10e3/UL) RBC 3.77 X10e6/UL (3.63-4.92 X10e6/UL) RDW 13.9 % (12.3-17.0 %) RDWSD 46.4 (37.1-47.8 ) WBC 11.6 X10e3/UL H (3.6-11.2 X10e3/UL) ABSOLUTE BASOPHILS 0.0 X10e3/UL (0.0-0.2 X10e3/UL) ABSOLUTE EOSINOPHILS 0.6 X10e3/UL H (0.0-0.5 X10e3/UL) ABSOLUTE LYMPHOCYTES 3.4 X10e3/UL H (1.0-3.0 X10e3/UL) ABSOLUTE MONOCYTES 0.7 X10e3/UL (0.3-1.0 X10e3/UL) ABSOLUTE NEUTROPHILS 7.0 X10e3/UL (1.8-7.8 X10e3/UL) BANDS 0.0 % BASOPHILS 0.0 % EOSINOPHILS 5.0 % LYMPHOCYTES 29.0 % MANUAL DIFF PERFORMED MONOCYTES 6.0 % SEGS 60.0 % ACANTHOCYTES 1+ POLYCHROMASIA 1+ BASOPHILIC STIPPLING 1+ [employer] CELLS 1+ WBC VACUOLES 1+
--- OUTSIDE RECORDS SUMMARY | 2017-02-26 16:34 | XMS REPORT | Referral Summary ---
Author Author [facility] Organization [facility] Address Unknown Phone Unavailable Care Team Providers Care Containers Sales Representative Name Role Phone Doug Muro Primary Care Physician [phone] Encounter VC Date(s): 05/09/16 - 05/10/16 [facility] [address] [place], [place] [address] Discharge Disposition: 01-Home or Self Care Attending Physician: Giancarlo Guerrero MD Admitting Physician: Giancarlo Guerrero MD Vital Signs Most recent to 1 oldest [Reference Range]: Temperature Temporal 36.5 degC Artery [36.3-37.8 (05/10/16 12:00 PM) degC] Peripheral Pulse 62 bpm Rate [60-100 bpm] (05/09/16 11:49 AM) Heart Rate Monitored 73 bpm [60-100 bpm] (05/10/16 4:00 PM) Respiratory Rate 23 br/min [14-20 br/min] *HI* (05/10/16 4:00 PM) Blood Pressure 159/82 mmHg [90-140/60-90 mmHg] *HI* (05/10/16 3:45 PM) Mean Arterial 104 mmHg Pressure, Cuff (05/10/16 4:00 PM) SpO2 100 % (05/10/16 4:00 PM) Remote Telemetry Ongoing (05/09/16 3:00 PM) Problem List Condition Effective Dates Status [...] oral tablet 40 mg 1 tabs, Oral, BID, 0 Refill(s) [...] 0 Refill(s) Start Date: 04/08/16 Status: Ordered [facility] Medication Pt receives IVIG every 4 weeks. [...] to 1 oldest [Reference Range]: WBC [4.8-10.8 9.4 10*3/uL 10*3/uL] (05/10/16 3:47 AM) RBC [4.00-5.20] 2.83 *LOW* (05/10/16 3:47 AM) Hgb [12.0-16.0 9.3 gm/dL gm/dL] *LOW* (05/10/16 3:47 AM) Hct [37.0-47.0 %] 30.4 % *LOW* (05/10/16 3:47 AM) MCV [82.0-99.0 fL] 107.4 fL *HI* (05/10/16 3:47 AM) MCH [27.0-32.0 pg] 32.9 pg *HI* (05/10/16 3:47 AM) MCHC [32.0-36.0 30.6 gm/dL gm/dL] *LOW* (05/10/16 3:47 AM) RDW [11.5-14.5 %] 15.1 % *HI* (05/10/16 3:47 AM) Platelet [150-400 201 10*3/uL 10*3/uL] (05/10/16 3:47 AM) MPV [9.4-12.4 fL] 12.4 fL (05/10/16 3:47 AM) Chemistry Most recent to 1 oldest [Reference Range]: Sodium Lvl [136-144 143 mEq/L mEq/L] (05/10/16 3:47 AM) Potassium Lvl 4.0 mEq/L [3.6-5.1 mEq/L] (05/10/16 3:47 AM) Chloride [99-109 101 mEq/L mEq/L] (05/10/16 3:47 AM) CO2 [22-32 mEq/L] 34 mEq/L *HI* (05/10/16 3:47 AM) AGAP [3-20] 8 (05/10/16 3:47 AM) BUN [4-20 mg/dL] 22 mg/dL *HI* (05/10/16 3:47 AM) Glucose Lvl [70-100 98 mg/dL mg/dL] (7/16/16 3:47 AM) Creatinine Lvl 1.17 mg/dL [0.44-1.03 mg/dL] *HI* (05/10/16 3:47 AM) eGFR [>60] 44 1 *ABN* (05/10/16 3:47 AM) Calcium Lvl 9.2 mg/dL [8.6-10.0 mg/dL] (05/10/16 3:47 AM) 1Result Comment: Multiply eGFR results by [...] Permanent cardiac pacemaker4, 5 1995 Appendectomy Cholecystectomy 1auto-populated from documented surgical case 2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
--- OUTSIDE RECORDS SUMMARY | 2017-02-26 16:34 | XMS REPORT | Summary of Care ---
Author Author [facility] Organization Unknown Address [address] [place], [place] [address] Phone Unavailable Care Team Providers Care Side Seam Tender Name Role Phone Cece Streeter M.D. [...] AT BEDTIME. * Quantity: 90 Refills: 3 Chpaito Muro * Start 31-Aug-2009 Active Oxygen 2 [...] tablet daily * Quantity: 30 Refills: 1 tSefan Streeter M.D. * Start 04-Dec-2014 Active Ipratropium-Albuterol [...] the morning. * Quantity: 30 Refills: 5 hCapito Muro * Start 07-Mar-2015 Active ROPINIRole HCl [...] 7150 Ordered: Comprehensive Metabolic Panel 1212 Ordered: CBC w/ Auto Diff 7150 Ordered: 24-Jun-2016 Comprehensive Metabolic Panel 1212 Ordered: 24-Jun-2016 BASIC METABOLIC PROFILE 1210 Ordered: 09-Jul-2016 Cortisol - AM [id number] Ordered: 09-Jul-2016 Immunization Name Dates Details Influenza Lot #: [id number] on: 02-Aug-2010 Influenza Lot #: [id number] on: 24-Aug-2012 Pneumo (Pneumovax) Lot #: [id number] on: 24-Aug-2012 Fluzone High-Dose 0.5 ML Intramuscular Suspension Prefilled Syringe Lot #: [id number] on: 25-Jul-2015 Tdap (Adacel) Lot #: [id number] on: 05-Nov-2015 Family History Name Dates Details [...] low threshold) Range: >60 EST GFR, NON-AFR [place] 32 ml/min (Below low threshold) Range: >60 [...] 524 pg/mL Range: 211-911 04-Jul-2016 12:21 Haptoglobin [id number] Comments: ORDER IN BOOK UNDER Testing performed at: [DA] [facility] [place], [address] [place] [address], [address], , Instrumental Music Teacher: KEILA Carranza MD HAPTOGLOBIN 215 mg/dL (Above high threshold) Range: 34-200 05-Jul-2016 09:28 VIVINA PE and FLC Serum [id number] Comments: ORDER IN BOOK UNDER Testing performed at: [DA] [facility], [address] [place] [address] , [place], [address], , Instrumental Music Teacher: KEILA Carranza MD IMMUNOGLOBULIN G, QN, SERUM 548 mg/dL (Below low threshold) Range: 700- 1600 IMMUNOGLOBULIN A, QN, SERUM 25 mg/dL (Below low threshold) Range: 64-422 IMMUNOGLOBULIN M, QN, SERUM <5 mg/dL (Below low threshold) Range: 26-217 Comments: Verified by repeat analysis----- PROTEIN, TOTAL, SERUM 5.7 g/dL (Below low threshold) Range: 6.0-8.5 ALBUMIN 3.0 g/dL Range: 2.9-4.4 GIBSL-3-NMIWTWNV 0.4 g/dL Range: 0.0-0.4 DCDFD-9-SHZHYRNG 0.9 g/dL Range: 0.4-1.0 BETA GLOBULIN 1.0 g/dL Range: 0.7-1.3 GAMMA GLOBULIN 0.5 g/dL Range: 0.4-1.8 M-SPIKE Not Observed g/dL Range: Not Observed GLOBULIN, TOTAL 2.7 g/dL Range: 2.2-3.9 A/G RATIO 1.2 Range: 0.7-1.7 IMMUNOFIXATION RESULT, SERUM Comment Comments: An apparent normal immunofixation pattern.----- PLEASE NOTE: Comment Comments: Protein electrophoresis scan will follow via computer,mail, or political research scientist delivery.----- FREE KAPPA LT CHAINS,S 15.27 mg/L [...] 50 MCG/ACT Nasal Suspension - Start Labs/Procedures/Imaging* BASIC METABOLIC PROFILE 1210; To be Done: 09 Jul 2016 * Cortisol - AM [id number]; To be Done: 09 Jul 2016 Instructions [...]
--- OUTSIDE RECORDS SUMMARY | 2017-02-26 16:34 | XMS REPORT | Summary of Care ---
Author Author [facility] Organization Unknown Address [address], [place] [id number] Phone Unavailable Care Team Providers Care Composite Worker Name Role Phone Cece Streeter M.D. [...] Z13.9) Status: Active Medications Name Dates Details Ipratropium-Albuterol 0.5-2.5 (3) MG/3ML Inhalation Solution INHALE 1 VIAL Daily (dx:J44.9) Quantity: 90 Stefan Streeter M.D.* Started 06-Dec-2012 ActiveMirtazapine 45 MG Oral Tablet TAKE 1/2 [...] Refills: 3 Chapito Muro * Started 19-Jan-2014 ActiveFerrous Sulfate 325 (65 Fe) MG Oral Tablet Delayed Release take 1 tab twice daily * Refills: 0 * Started 15-Aug-2014 ActiveAcetaminophen-Codeine 300-30 MG Oral Tablet TAKE 1 TABLET EVERY 6 HOURS NEEDED FOR PAIN. Must last 30 days * Quantity: 120 Refills: 0 Chapito Muro * Started 07-Nov-2014 ActiveBudesonide 0.5 MG/2ML Inhalation Suspension USE 1 UNIT DOSE VIA NEBULIZER TWO TIMES A DAY (dx:J44.9) * Quantity: 120 Refills: 11 Stefan Streeter M.D.* Started 01-Nov-2015 ActiveAllopurinol 300 MG Oral Tablet TAKE 1 TABLET DAILY. * Refills: 0 * Started 15-Aug-2014 ActiveAcyclovir 400 MG Oral Tablet TAKE 1 TABLET TWICE DAILY. * Refills: 0 * Started 15-Aug-2014 ActiveLORazepam 0.5 MG Oral Tablet take 1 tab twice daily as needed * Refills: 0 * Started 15-Aug-2014 ActiveProtonix 40 MG Oral Tablet Delayed Release take 1 tab daily * Refills: 0 * Started 15-Aug-2014 ActiveVentolin HFA 108 (90 Base) MCG/ACT Inhalation Aerosol Solution 2 puffs every 6 hours as needed * Refills: 0 * Started 15-Aug-2014 ActiveMulti-Day Vitamins Oral Tablet I po qd * Refills: 0 * Started 07-Jun-2009 ActiveFurosemide 40 MG Oral Tablet take one tablet in the morning and 1/2 tablet in the afternoon * Refills: 0 Stefan Streeter M.D.* Started 07-Mar-2015 ActivePropranolol HCl - 40 MG Oral Tablet take 11/2 tablets twice daily * Refills: 0 Stefan Streeter M.D.* Started 07-Mar-2015 ActiveROPINIRole HCl - 1 MG Oral Tablet TAKE ONE TABLET BY MOUTH EVERY NIGHT AT BEDTIME * Quantity: 90 Refills: 0 Raphael Mcduffie M.D.* Started 31-Aug-2009 ActiveMiraLax Oral Powder MIX 1 CAPFUL IN 8 OUNCES OF WATER AND DRINK DAILY DIRECTED. * Quantity: 1 Refills: 6 * Started 15-Aug-2014 ActiveBrovana 15 MCG/2ML Inhalation Nebulization Solution USE VIA NEBULIZER TWO TIMES DAILY (dx:J44.9) * Quantity: 120 Refills: 11 Stefan Streeter M.D.* Started 23-Nov-2012 ActiveOxygen 2 LPM 24 HOURS A DAY MAY TITRATE UP FOR DYSPNEA * Refills: 0 * Started ActiveFolic Acid 1 MG Oral Tablet Take 1 tablet daily * Quantity: 30 Refills: 1 Stefan Streeter M.D.* Started 04-Dec-2014 ActiveAdult Aspirin EC Low Strength 81 MG Oral Tablet Delayed Release * Refills: 0 Henry Mendoza M.D.* Started 05-Jul-2013 Active Allergies and Adverse Reactions Name Dates [...] RENAL PROFILE 1240 Ordered:22-Oct-2015 HEMOGRAM 7305 Ordered:22-Oct-2015 LIPID PROFILE 1184 Ordered:05-Nov-2015 THYROID STIM. HORMONE 3602 Ordered:05-Nov-2015 DEXA Ordered:05-Nov-2015 MAMMOGRAM-SCREENING Ordered:05-Nov-2015 Immunization Name Dates Details Influenza Lot #: [id number] Administered on:02-Aug-2010 Influenza Lot #: [id number] Administered on:24-Aug-2012 Pneumo (Pneumovax) Lot #: [id number] Administered on:24-Aug-2012 Fluzone High-Dose 0.5 ML Intramuscular Suspension Prefilled Syringe Lot #: [id number] Administered on:25-Jul-2015 Tdap (Adacel) Lot #: [id number] Administered on:05-Nov-2015 Family History natural son* Name [...] low threshold) Range: >60 EST GFR, NON-AFR GERMAN 31 ml/min (Below low threshold) Range: >60 Comments: EST GFR is reported in ml/min per 1.73 m2 of body surface area. For -[place], please multiple result by 1.2.----- BUN:CREATININE RATIO [...] low threshold) Range: >60 EST GFR, NON-AFR GERMAN 30 ml/min (Below low threshold) Range: >60 Comments: EST GFR is reported in ml/min per 1.73 m2 of body surface area. For -[place], please multiple result by 1.2.----- GLUCOSE 98 [...] 435 U/L (Above high threshold) Range: 81-234 Plan [...]
--- OUTSIDE RECORDS SUMMARY | 2017-02-26 16:35 | XMS REPORT ---
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 Role Phone MD CORTEZ, [facility] [phone] Reason For Visit Reason for Visit from 08/25/2016 5:51 PM:* Pt Stated Reason for Adm : Blood transfusion Chief Complaint ANEMIA D64.9 Social History Functional Status Functional Status from 08/25/2016 5:51 PM:* LOC : Alert * Oriented To : Person,Place,Time,Event Functional Status from 08/25/2016 1:18 PM:* LOC : Alert * Oriented To : Person,Place,Time,Event Vital Signs Hospital Vital Signs from 08/25/2016 5:51 PM:* Weight : 108.4/ lbs,oz * Height : 5/0 ft,in Hospital Vital Signs from 08/25/2016 4:52 PM:* Height : 5/0 ft,in * Temperature : 97.2 F * Pulse : 60 * Respirations : 18 * BP : 125/67 Hospital Vital Signs from 08/25/2016 4:26 PM:* Height : 5/0 ft,in * Temperature : 96.7 F * Pulse : 59 * Respirations : 18 * BP : 125/62 Hospital Vital Signs from 08/25/2016 3:24 PM:* Height : 5/0 ft,in * Temperature : 97 F * Pulse : 59 * Respirations : 18 * BP : 133/65 Hospital Vital Signs from 08/25/2016 3:09 PM:* Height : 5/0 ft,in * Temperature : 96.9 F * Pulse : 59 * Respirations : 18 * BP : 121/60 Hospital Vital Signs from 08/25/2016 2:55 PM:* Height : 5/0 ft,in * Temperature : 96.5 F * Pulse : 61 * Respirations : 18 * BP : 159/53 Hospital Vital Signs from 08/25/2016 1:55 PM:* Height : 5/0 ft,in * Temperature : 96.5 F * Pulse : 60 * Respirations : 18 * BP : 117/55 Hospital Vital Signs from 08/25/2016 12:55 PM:* Height : 5/0 ft,in * Temperature : 97.2 F * Pulse : 60 * Respirations : 18 * BP : 142/53 Hospital Vital Signs from 08/25/2016 12:40 PM:* Height : 5/0 ft,in * Temperature : 96.7 F * Pulse : 59 * Respirations : 18 * BP : 126/53 Hospital Vital Signs from 08/25/2016 11:10 AM:* Weight : 108/ lbs,oz * Height : 5/0 ft,in * Temperature : 96.5 F * Pulse : 61 * Respirations : 18 * BP : 104/51 Results Chemistry from 08/01/2016 8:42 AMSODIUM 147 MMOL/L H (136-145 MMOL/L) POTASSIUM 4.5 MMOL/L (3.5-5.1 MMOL/L) CHLORIDE 108 MMOL/L H (98-107 MMOL/L) TCO2 36.1 MMOL/L H (21.0-32.0 MMOL/L) *ANION GAP 2.9 MMOL/L L (8.0-16.0 MMOL/L) BUN 26 MG/DL H (7-18 MG/DL) CREATININE 1.23 MG/DL H (0.55-1.02 MG/DL) *BUN/CREATININE RATIO 21.1 H (9.1-17.0 ) GLUCOSE 106 MG/DL H (65-99 MG/DL) *GFR EST NON AFR SAMMARINESE 40 ML/MIN *GFR EST AFR AMER 46 ML/MIN CALCIUM 8.4 MG/DL L (8.5-10.1 MG/DL) ALBUMIN 2.6 GM/DL L (3.4-5.0 GM/DL) MAGNESIUM 1.5 MG/DL L (1.8-2.4 MG/DL) PHOSPHORUS 3.2 MG/DL (2.6-4.7 MG/DL) Chemistry from 07/31/2016 5:14 AMSODIUM 147 MMOL/L H (136-145 MMOL/L) POTASSIUM 3.4 MMOL/L L (3.5-5.1 MMOL/L) CHLORIDE 107 MMOL/L (98-107 MMOL/L) TCO2 36.7 MMOL/L H (21.0-32.0 MMOL/L) *ANION GAP 3.3 MMOL/L L (8.0-16.0 MMOL/L) BUN 21 MG/DL H (7-18 MG/DL) CREATININE 0.99 MG/DL (0.55-1.02 MG/DL) *BUN/CREATININE RATIO 21.2 H (9.1-17.0 ) GLUCOSE 100 MG/DL H (65-99 MG/DL) *GFR EST NON AFR SAMMARINESE 52 ML/MIN *GFR EST AFR AMER 60 ML/MIN CALCIUM 8.2 MG/DL L (8.5-10.1 MG/DL) BILIRUBIN TOTAL 0.40 MG/DL (0.20-1.00 MG/DL) TOTAL PROTEIN 5.1 GM/DL L (6.4-8.2 GM/DL) ALBUMIN 2.5 GM/DL L (3.4-5.0 GM/DL) *GLOBULIN 2.6 GM/DL (2.3-3.5 GM/DL) *A/G RATIO 1.0 MG/DL L (1.5-2.2 MG/DL) ALK PHOS 80 U/L (46-116 U/L) ALT (SGPT) 10 U/L L (16-63 U/L) AST (SGOT) 22 U/L (15-37 U/L) MAGNESIUM 1.4 MG/DL L (1.8-2.4 MG/DL) PHOSPHORUS 4.2 MG/DL (2.6-4.7 MG/DL) Chemistry from 07/30/2016 4:14 AMSODIUM 146 MMOL/L H (136-145 MMOL/L) POTASSIUM 3.6 MMOL/L (3.5-5.1 MMOL/L) CHLORIDE 107 MMOL/L (98-107 MMOL/L) TCO2 35.7 MMOL/L H (21.0-32.0 MMOL/L) *ANION GAP 3.3 MMOL/L L (8.0-16.0 MMOL/L) BUN 22 MG/DL H (7-18 MG/DL) CREATININE 1.02 MG/DL (0.55-1.02 MG/DL) *BUN/CREATININE RATIO 21.6 H (9.1-17.0 ) GLUCOSE 101 MG/DL H (65-99 MG/DL) *GFR EST NON AFR SAMMARINESE 50 ML/MIN *GFR EST AFR AMER 58 ML/MIN CALCIUM 8.5 MG/DL (8.5-10.1 MG/DL) ALBUMIN 2.7 GM/DL L (3.4-5.0 GM/DL) PHOSPHORUS 2.8 MG/DL (2.6-4.7 MG/DL) Chemistry from 07/29/2016 4:01 PMTROPONIN-I 0.036 NG/ML (0.000-0.056 NG/ML) Chemistry from 07/29/2016 9:53 AMSODIUM 145 MMOL/L (136-145 MMOL/L) POTASSIUM 3.8 MMOL/L (3.5-5.1 MMOL/L) CHLORIDE 109 MMOL/L H (98-107 MMOL/L) TCO2 29.6 MMOL/L (21.0-32.0 MMOL/L) *ANION GAP 6.4 MMOL/L L (8.0-16.0 MMOL/L) BUN 23 MG/DL H (7-18 MG/DL) CREATININE 0.89 MG/DL (0.55-1.02 MG/DL) *BUN/CREATININE RATIO 25.8 H (9.1-17.0 ) GLUCOSE 120 MG/DL H (65-99 MG/DL) CALCIUM 8.6 MG/DL (8.5-10.1 MG/DL) BILIRUBIN TOTAL 0.50 MG/DL (0.20-1.00 MG/DL) TOTAL PROTEIN 5.3 GM/DL L (6.4-8.2 GM/DL) ALBUMIN 2.7 GM/DL L (3.4-5.0 GM/DL) *GLOBULIN 2.6 GM/DL (2.3-3.5 GM/DL) *A/G RATIO 1.0 MG/DL L (1.5-2.2 MG/DL) ALK PHOS 89 U/L (46-116 U/L) ALT (SGPT) 14 U/L L (16-63 U/L) AST (SGOT) 27 U/L (15-37 U/L) TROPONIN-I 0.028 NG/ML (0.000-0.056 NG/ML) LDH 380 U/L H (81-234 U/L) Chemistry from 07/29/2016 3:38 AMSODIUM 148 MMOL/L H (136-145 MMOL/L) POTASSIUM 4.1 MMOL/L (3.5-5.1 MMOL/L) CHLORIDE 110 MMOL/L H (98-107 MMOL/L) TCO2 31.0 MMOL/L (21.0-32.0 MMOL/L) *ANION GAP 7.0 MMOL/L L (8.0-16.0 MMOL/L) BUN 23 MG/DL H (7-18 MG/DL) CREATININE 0.91 MG/DL (0.55-1.02 MG/DL) *BUN/CREATININE RATIO 25.3 H (9.1-17.0 ) GLUCOSE 109 MG/DL H (65-99 MG/DL) *GFR EST NON AFR SAMMARINESE 58 ML/MIN *GFR EST AFR AMER 67 ML/MIN CALCIUM 8.7 MG/DL (8.5-10.1 MG/DL) BILIRUBIN TOTAL 0.30 MG/DL (0.20-1.00 MG/DL) TOTAL PROTEIN 5.4 GM/DL L (6.4-8.2 GM/DL) ALBUMIN 2.7 GM/DL L (3.4-5.0 GM/DL) *GLOBULIN 2.7 GM/DL (2.3-3.5 GM/DL) *A/G RATIO 1.0 MG/DL L (1.5-2.2 MG/DL) ALK PHOS 92 U/L (46-116 U/L) ALT (SGPT) 16 U/L (16-63 U/L) AST (SGOT) 33 U/L (15-37 U/L) LIPASE 255 U/L (73-393 U/L) TROPONIN-I 0.038 NG/ML (0.000-0.056 NG/ML) B-TYPE NATRIURETIC PROTEIN 1637 PG/ML H (1-100 PG/ML) CHOLESTEROL 113 MG/DL (50-199 MG/DL) TRIGLYCERIDES 94 MG/DL (0-149 MG/DL) HDL CHOLESTEROL 46 MG/DL (40-60 MG/DL) *LDL (CALCULATED) CHOL 48 MG/DL (0-99 MG/DL) IRON 99 MCG/DL (50-170 MCG/DL) IRON BINDING CAPACITY 299 MCG/DL (250-450 MCG/DL) *PERCENT SATURATION 33 % (20-55 %) VITAMIN B12 316 PG/ML (180-914 PG/ML) FOLATES >24.3 NG/ML (>3.0- NG/ML) FERRITIN 544 NG/ML H (13-150 NG/ML) DIGOXIN 1.77 NG/ML (0.90-2.00 NG/ML) Hematology from 08/25/2016 11:35 AMHEMOGLOBIN 5.9 G/DL LL (11.0-14.3 G/DL) Hematology from 08/01/2016 8:42 AMWBC 12.1 X10e3/UL [...] MITCHELL JOLLY BODIES 1+ PAPPENHEIMER BODIES 2+ Hematology from 07/31/2016 5:14 AMWBC 16.6 X10e3/UL H (3.6-11.2 X10e3/UL) RBC 3.20 X10e6/UL L (3.63-4.92 X10e6/UL) HEMOGLOBIN 9.7 G/DL L (11.0-14.3 G/DL) HEMATOCRIT 30.9 % L (31.2-41.9 %) *MCV 96.6 FL (79.0-98.0 FL) *MCH 30.2 PG (27.0-33.0 PG) *MCHC 31.3 G/DL L (32.0-36.0 G/DL) *RDW 25.5 % H (12.3-17.0 %) *RDWSD 80.9 H (37.1-47.8 ) PLATELET 154 X10e3/UL L (159-386 X10e3/UL) *MPV 10.8 FL H (7.4-10.4 FL) *MANUAL DIFF PERFORMED SEGS 87.0 % *BANDS 1.0 % *LYMPHOCYTES 9.0 % *MONOCYTES 1.0 % *EOSINOPHILS 1.0 % *BASOPHILS 1.0 % *ABSOLUTE NEUTROPHILS 14.61 X10e3/UL H (1.80-7.80 X10e3/UL) *ABSOLUTE LYMPHOCYTES 1.49 X10e3/UL (1.00-3.00 X10e3/UL) *ABSOLUTE MONOCYTES 0.17 X10e3/UL L (0.30-1.00 X10e3/UL) *ABSOLUTE EOSINOPHILS 0.17 X10e3/UL (0.00-0.50 X10e3/UL) *ABSOLUTE BASOPHILS 0.17 X10e3/UL (0.00-0.20 X10e3/UL) *NUCLEATED RBC MANUAL 7.0 /100 WBC H (0.0-1.0 /100 WBC) *POLYCHROMASIA 1+ *HYPOCHROMASIA 1+ ANISOCYTOSIS 3+ STOMATOCYTES 1+ BASOPHILIC STIPPLING 2+ PAPPENHEIMER BODIES 1+ Hematology from 07/30/2016 4:14 AMWBC 17.7 X10e3/UL H (3.6-11.2 X10e3/UL) RBC 3.22 X10e6/UL L (3.63-4.92 X10e6/UL) HEMOGLOBIN 10.1 G/DL L (11.0-14.3 G/DL) HEMATOCRIT 31.0 % L (31.2-41.9 %) *MCV 96.4 FL (79.0-98.0 FL) *MCH 31.3 PG (27.0-33.0 PG) *MCHC 32.5 G/DL (32.0-36.0 G/DL) *RDW 24.8 % H (12.3-17.0 %) PLATELET 180 X10e3/UL (159-386 X10e3/UL) *MPV 10.6 FL H (7.4-10.4 FL) AUTOMATED DIFF PERFORMED *MANUAL DIFF PERFORMED SEGS 68.0 % *BANDS 1.0 % *LYMPHOCYTES 16.0 % *MONOCYTES 8.0 % *EOSINOPHILS 6.0 % *BASOPHILS 0.0 % *REACTIVE LYMPHOCYTES 1.0 % *ABSOLUTE NEUTROPHILS 12.21 X10e3/UL H (1.80-7.80 X10e3/UL) *ABSOLUTE LYMPHOCYTES 3.01 X10e3/UL H (1.00-3.00 X10e3/UL) *ABSOLUTE MONOCYTES 1.42 X10e3/UL H (0.30-1.00 X10e3/UL) *ABSOLUTE EOSINOPHILS 1.06 X10e3/UL H (0.00-0.50 X10e3/UL) *ABSOLUTE BASOPHILS 0.00 X10e3/UL (0.00-0.20 X10e3/UL) *NUCLEATED RBC MANUAL 7.0 /100 WBC H (0.0-1.0 /100 WBC) *PLATELET SLIDE REVIEW ADEQUATE (ADEQUATE ) *POLYCHROMASIA 1+ *HYPOCHROMASIA 1+ ANISOCYTOSIS 3+ *MACROCYTIC 1+ PAPPENHEIMER BODIES 1+ Hematology from 07/29/2016 9:32 PMHEMOGLOBIN 9.5 G/DL L (11.0-14.3 G/DL) Hematology from 07/29/2016 4:01 PMHEMOGLOBIN 9.7 G/DL L (11.0-14.3 G/DL) Hematology from 07/29/2016 9:53 AMWBC 12.7 X10e3/UL H (3.6-11.2 X10e3/UL) RBC 2.63 X10e6/UL L (3.63-4.92 X10e6/UL) HEMOGLOBIN 8.1 G/DL L (11.0-14.3 G/DL) HEMATOCRIT 25.7 % L (31.2-41.9 %) *MCV 97.8 FL (79.0-98.0 FL) *MCH 30.7 PG (27.0-33.0 PG) *MCHC 31.4 G/DL L (32.0-36.0 G/DL) *RDW 26.4 % H (12.3-17.0 %) *RDWSD 85.3 H (37.1-47.8 ) PLATELET 179 X10e3/UL (159-386 X10e3/UL) *MPV 10.4 FL (7.4-10.4 FL) *MANUAL DIFF PERFORMED SEGS 86.0 % *BANDS 2.0 % *LYMPHOCYTES 10.0 % *MONOCYTES 0.0 % *EOSINOPHILS 1.0 % *BASOPHILS 0.0 % *REACTIVE LYMPHOCYTES 1.0 % *ABSOLUTE NEUTROPHILS 11.18 X10e3/UL H (1.80-7.80 X10e3/UL) *ABSOLUTE LYMPHOCYTES 1.40 X10e3/UL (1.00-3.00 X10e3/UL) *ABSOLUTE MONOCYTES 0.00 X10e3/UL L (0.30-1.00 X10e3/UL) *ABSOLUTE EOSINOPHILS 0.13 X10e3/UL (0.00-0.50 X10e3/UL) *ABSOLUTE BASOPHILS 0.00 X10e3/UL (0.00-0.20 X10e3/UL) *NUCLEATED RBC MANUAL 5.0 /100 WBC H (0.0-1.0 /100 WBC) *POLYCHROMASIA 1+ *HYPOCHROMASIA 1+ ANISOCYTOSIS 3+ *MACROCYTIC 1+ STOMATOCYTES 1+ BASOPHILIC STIPPLING 2+ Hematology from 07/29/2016 7:26 AMRETICULOCYTE 11.35 % H (0.50-1.50 %) Hematology from 07/29/2016 3:38 AMWBC 13.8 X10e3/UL H (3.6-11.2 X10e3/UL) RBC 2.15 X10e6/UL L (3.63-4.92 X10e6/UL) HEMOGLOBIN 6.7 G/DL L (11.0-14.3 G/DL) HEMATOCRIT 22.2 % L (31.2-41.9 %) *MCV 103.7 FL H (79.0-98.0 FL) *MCH 31.4 PG (27.0-33.0 PG) *MCHC 30.3 G/DL L (32.0-36.0 G/DL) *RDW 25.9 % H (12.3-17.0 %) *RDWSD 91.0 H (37.1-47.8 ) PLATELET 196 X10e3/UL (159-386 X10e3/UL) *MPV 10.7 FL H (7.4-10.4 FL) *MANUAL DIFF PERFORMED SEGS 88.0 % *BANDS 3.0 % *LYMPHOCYTES 4.0 % *MONOCYTES 2.0 % *EOSINOPHILS 1.0 % *BASOPHILS 2.0 % *ABSOLUTE NEUTROPHILS 12.56 X10e3/UL H (1.80-7.80 X10e3/UL) *ABSOLUTE LYMPHOCYTES 0.55 X10e3/UL L (1.00-3.00 X10e3/UL) *ABSOLUTE MONOCYTES 0.28 X10e3/UL L (0.30-1.00 X10e3/UL) *ABSOLUTE EOSINOPHILS 0.14 X10e3/UL (0.00-0.50 X10e3/UL) *ABSOLUTE BASOPHILS 0.28 X10e3/UL H (0.00-0.20 X10e3/UL) *POLYCHROMASIA 1+ *MACROCYTIC 1+ Urinalysis from 07/30/2016 1:00 PM*URINE COLOR YELLOW (STRAW/YELL/DK YELL ) *URINE APPEARANCE CLEAR (CLEAR ) URINE PH 6.0 (5.0-8.0 ) URINE SPECIFIC GRAVITY 1.020 (<=1.005->=1.030 ) *URINE GLUCOSE NEGATIVE MG/DL (NEGATIVE MG/DL) *URINE BILIRUBIN NEGATIVE (NEGATIVE ) *URINE KETONES NEGATIVE MG/DL (NEGATIVE MG/DL) *URINE BLOOD SMALL A (NEGATIVE ) *URINE PROTEIN >300 MG/DL A (NEGATIVE MG/DL) *URINE UROBILINOGEN 0.2 EU/DL (0.2-1.0 EU/DL) *URINE NITRITES NEGATIVE (NEGATIVE ) *URINE LEUKOCYTES NEGATIVE (NEGATIVE ) *MICROSCOPIC EXAM PERFORMED PERFORMED *WBC URINE 5-10 /HPF A (0-5 /HPF) *RBC URINE 0-1 /HPF (0-1 /HPF) *SQUAMOUS EP. CELLS FEW /LPF (NEG-FEW /LPF) *MUCOUS THREADS FEW /LPF A (NEGATIVE /LPF) *HYALINE CASTS 5-10 /LPF A (0 /LPF) Blood Bank from 08/25/2016 11:35 AMANTIBODY SCREEN (Indirect [place]) NEG RED BLOOD CELLS [id number] transfused compatible [id number] transfused compatible *ABO Group B RH TYPE POS Blood Bank from 07/29/2016 4:33 AMANTIBODY SCREEN (Indirect [place]) NEG RED BLOOD CELLS [id number] transfused compatible RED BLOOD CELLS [id number] transfused compatible *ABO Group B RH TYPE POS Reference Lab from 07/29/2016 3:38 AMHAPTOGLOBIN 165 mg/dL (34-200 mg/dL) DX Radiology from 07/30/2016 6:34 AMCHEST 2 VIEWS History: copd. Technique: 2 VIEW CHEST Priors: 07/29/2016 Findings: There is been slight improvement mild perihilar lower lobe pulmonary edema. No new infiltrate, pneumothorax is identified. There is small right pleural effusion. There are left subclavian cardiac leads good position. Heart size mildly enlarged Impression: Improving mild CHF. Electronically signed by: Beka Davis MD Dictated: 07/30/2016 07:55 DX Radiology from 07/29/2016 3:30 AMCHEST 1 VIEW History: Chest pain Priors: 06/21/2016 Findings: There is mild cardiomegaly soles mild perihilar lower lobe pulmonary edema. There is severe COPD. There is evidence pneumothorax or pleural effusion. There are left subclavian cardiac leads in good position. Impression: Mild CHF. Electronically signed by: Beka Davis MD Dictated: 07/29/2016 08:29 Problems Encounter Diagnosis No relevant problems exist. [...] of Care Procedures * Completed Procedure Code: [id number] Procedure Name: not valued, on 07/30/2016 9: 59 AM * Completed Procedure Code: [id number] Procedure Name: not valued, on 07/30/2016 9: 59 AM * Completed Esophagogastroduodenoscopy with control of bleeding, by MD [facility], on 07/30/2016 9:21 AM * Completed Procedure Code: [id number] Procedure Name: not valued, on 07/21/2016 12 :00 AM * Completed Procedure Code: 75224 Procedure Name: not valued, on 07/21/2016 12: 00 AM * Completed Procedure Code: 00190 Procedure Name: not valued, on 07/21/2016 12: 00 AM * Completed Procedure Code: [id number] Procedure Name: not valued, on 06/21/2016 12 [...]
--- OUTSIDE RECORDS SUMMARY | 2017-02-26 16:35 | XMS REPORT ---
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
--- OUTSIDE RECORDS SUMMARY | 2017-02-26 16:35 | XMS REPORT ---
Author Author GENERATED, SYSTEM Organization Unknown Address Unknown Phone Unavailable Care Team Providers Care Rural Route Mail Carrier Name Role Phone MD CORTEZ, [facility] [phone] Reason For Visit Chief Complaint D83.8 Social History Functional Status Vital Signs Results Chemistry from 06/24/2016 5:30 AMSODIUM 144 MMOL/L (136-145 MMOL/L) POTASSIUM 4.3 MMOL/L (3.5-5.1 MMOL/L) CHLORIDE 103 MMOL/L (98-107 MMOL/L) TCO2 39.7 MMOL/L H (21.0-32.0 MMOL/L) *ANION GAP 1.3 MMOL/L L (8.0-16.0 MMOL/L) BUN 34 MG/DL H (7-18 MG/DL) CREATININE 1.50 MG/DL H (0.55-1.02 MG/DL) *BUN/CREATININE RATIO 22.7 H (9.1-17.0 ) GLUCOSE 101 MG/DL H (65-99 MG/DL) *GFR EST NON AFR [place] 31 ML/MIN *GFR EST AFR AMER 36 ML/MIN CALCIUM 8.7 MG/DL (8.5-10.1 MG/DL) Chemistry from 06/23/2016 4:54 AMSODIUM 145 MMOL/L (136-145 MMOL/L) POTASSIUM 4.3 MMOL/L (3.5-5.1 MMOL/L) CHLORIDE 106 MMOL/L (98-107 MMOL/L) TCO2 35.4 MMOL/L H (21.0-32.0 MMOL/L) *ANION GAP 3.6 MMOL/L L (8.0-16.0 MMOL/L) BUN 33 MG/DL H (7-18 MG/DL) CREATININE 1.35 MG/DL H (0.55-1.02 MG/DL) *BUN/CREATININE RATIO 24.4 H (9.1-17.0 ) GLUCOSE 108 MG/DL H (65-99 MG/DL) *GFR EST NON AFR [place] 36 ML/MIN *GFR EST AFR AMER 41 ML/MIN CALCIUM 8.4 MG/DL L (8.5-10.1 MG/DL) BILIRUBIN TOTAL 0.40 MG/DL (0.20-1.00 MG/DL) TOTAL PROTEIN 5.8 GM/DL L (6.4-8.2 GM/DL) ALBUMIN 2.7 GM/DL L (3.4-5.0 GM/DL) *GLOBULIN 3.1 GM/DL (2.3-3.5 GM/DL) *A/G RATIO 0.9 MG/DL L (1.5-2.2 MG/DL) ALK PHOS 76 U/L (46-116 U/L) ALT (SGPT) 9 U/L L (16-63 U/L) AST (SGOT) 23 U/L (15-37 U/L) Chemistry from 06/22/2016 11:59 AMIRON 197 MCG/DL H (50-170 MCG/DL) IRON BINDING CAPACITY 341 MCG/DL (250-450 MCG/DL) *PERCENT SATURATION 58 % H (20-55 %) FERRITIN 63 NG/ML (13-150 NG/ML) Chemistry from 06/22/2016 9:29 AMSODIUM 147 MMOL/L H (136-145 MMOL/L) POTASSIUM 4.1 MMOL/L (3.5-5.1 MMOL/L) CHLORIDE 108 MMOL/L H (98-107 MMOL/L) TCO2 31.0 MMOL/L (21.0-32.0 MMOL/L) *ANION GAP 8.0 MMOL/L (8.0-16.0 MMOL/L) BUN 38 MG/DL H (7-18 MG/DL) CREATININE 1.57 MG/DL H (0.55-1.02 MG/DL) *BUN/CREATININE RATIO 24.2 H (9.1-17.0 ) GLUCOSE 100 MG/DL H (65-99 MG/DL) *GFR EST NON AFR [place] 30 ML/MIN *GFR EST AFR AMER 34 ML/MIN CALCIUM 8.0 MG/DL L (8.5-10.1 MG/DL) BILIRUBIN TOTAL 0.60 MG/DL (0.20-1.00 MG/DL) TOTAL PROTEIN 5.9 GM/DL L (6.4-8.2 GM/DL) ALBUMIN 2.7 GM/DL L (3.4-5.0 GM/DL) *GLOBULIN 3.2 GM/DL (2.3-3.5 GM/DL) *A/G RATIO 0.8 MG/DL L (1.5-2.2 MG/DL) ALK PHOS 77 U/L (46-116 U/L) ALT (SGPT) 10 U/L L (16-63 U/L) AST (SGOT) 25 U/L (15-37 U/L) Chemistry from 06/21/2016 8:44 PMLACTIC ACID 0.6 mmol/L L (0.9-1.7 mmol/L) Chemistry from 06/21/2016 7:33 PMSODIUM 144 MMOL/L (136-145 MMOL/L) POTASSIUM 4.4 MMOL/L (3.5-5.1 MMOL/L) CHLORIDE 106 MMOL/L (98-107 MMOL/L) TCO2 31.8 MMOL/L (21.0-32.0 MMOL/L) *ANION GAP 6.2 MMOL/L L (8.0-16.0 MMOL/L) BUN 47 MG/DL H (7-18 MG/DL) CREATININE 1.96 MG/DL H (0.55-1.02 MG/DL) *BUN/CREATININE RATIO 24.0 H (9.1-17.0 ) GLUCOSE 110 MG/DL H (65-99 MG/DL) *GFR EST NON AFR [place] 23 ML/MIN *GFR EST AFR AMER 26 ML/MIN CALCIUM 8.0 MG/DL L (8.5-10.1 MG/DL) BILIRUBIN TOTAL 0.30 MG/DL (0.20-1.00 MG/DL) TOTAL PROTEIN 5.7 GM/DL L (6.4-8.2 GM/DL) ALBUMIN 2.6 GM/DL L (3.4-5.0 GM/DL) *GLOBULIN 3.1 GM/DL (2.3-3.5 GM/DL) *A/G RATIO 0.8 MG/DL L (1.5-2.2 MG/DL) ALK PHOS 71 U/L (46-116 U/L) ALT (SGPT) 9 U/L L (16-63 U/L) AST (SGOT) 21 U/L (15-37 U/L) MAGNESIUM 1.9 MG/DL (1.8-2.4 MG/DL) PHOSPHORUS 4.2 MG/DL (2.6-4.7 MG/DL) TROPONIN-I 0.041 NG/ML (0.000-0.056 NG/ML) B-TYPE NATRIURETIC PROTEIN 922 PG/ML H (1-100 PG/ML) Hematology from 06/24/2016 5:30 AMWBC 15.2 X10e3/UL H (3.6-11.2 X10e3/UL) RBC 3.60 X10e6/UL L (3.63-4.92 X10e6/UL) HEMOGLOBIN 11.2 G/DL (11.0-14.3 G/DL) HEMATOCRIT 34.2 % (31.2-41.9 %) *MCV 94.9 FL (79.0-98.0 FL) *MCH 31.1 PG (27.0-33.0 PG) *MCHC 32.7 G/DL (32.0-36.0 G/DL) *RDW 15.9 % (12.3-17.0 %) *RDWSD 52.1 H (37.1-47.8 ) PLATELET 159 X10e3/UL (159-386 X10e3/UL) *MPV 9.4 FL (7.4-10.4 FL) Hematology from 06/23/2016 4:54 AMWBC 16.9 X10e3/UL H (3.6-11.2 X10e3/UL) RBC 3.69 X10e6/UL (3.63-4.92 X10e6/UL) HEMOGLOBIN 11.4 G/DL (11.0-14.3 G/DL) HEMATOCRIT 34.7 % (31.2-41.9 %) *MCV 94.0 FL (79.0-98.0 FL) *MCH 30.9 PG (27.0-33.0 PG) *MCHC 32.9 G/DL (32.0-36.0 G/DL) *RDW 16.5 % (12.3-17.0 %) *RDWSD 54.3 H (37.1-47.8 ) PLATELET 205 X10e3/UL (159-386 X10e3/UL) *MPV 9.5 FL (7.4-10.4 FL) *MANUAL DIFF PERFORMED SEGS 77.0 % *BANDS 0.0 % *LYMPHOCYTES 9.0 % *MONOCYTES 6.0 % *EOSINOPHILS 7.0 % *BASOPHILS 1.0 % *ABSOLUTE NEUTROPHILS 13.01 X10e3/UL H (1.80-7.80 X10e3/UL) *ABSOLUTE LYMPHOCYTES 1.52 X10e3/UL (1.00-3.00 X10e3/UL) *ABSOLUTE MONOCYTES 1.01 X10e3/UL H (0.30-1.00 X10e3/UL) *ABSOLUTE EOSINOPHILS 1.18 X10e3/UL H (0.00-0.50 X10e3/UL) *ABSOLUTE BASOPHILS 0.17 X10e3/UL (0.00-0.20 X10e3/UL) *NUCLEATED RBC MANUAL 6.0 /100 WBC H (0.0-1.0 /100 WBC) *POLYCHROMASIA 1+ ANISOCYTOSIS 3+ *MACROCYTIC 1+ BASOPHILIC STIPPLING 1+ Hematology from 06/22/2016 9:29 AMWBC 16.8 X10e3/UL H (3.6-11.2 X10e3/UL) RBC 3.68 X10e6/UL (3.63-4.92 X10e6/UL) HEMOGLOBIN 11.3 G/DL (11.0-14.3 G/DL) HEMATOCRIT 34.4 % (31.2-41.9 %) *MCV 93.7 FL (79.0-98.0 FL) *MCH 30.8 PG (27.0-33.0 PG) *MCHC 32.9 G/DL (32.0-36.0 G/DL) *RDW 16.2 % (12.3-17.0 %) *RDWSD 52.1 H (37.1-47.8 ) PLATELET 217 X10e3/UL (159-386 X10e3/UL) *MPV 9.4 FL (7.4-10.4 FL) *MANUAL DIFF PERFORMED SEGS 77.0 % *BANDS 2.0 % *LYMPHOCYTES 11.0 % *MONOCYTES 5.0 % *EOSINOPHILS 5.0 % *BASOPHILS 0.0 % *ABSOLUTE NEUTROPHILS 13.27 X10e3/UL H (1.80-7.80 X10e3/UL) *ABSOLUTE LYMPHOCYTES 1.85 X10e3/UL (1.00-3.00 X10e3/UL) *ABSOLUTE MONOCYTES 0.84 X10e3/UL (0.30-1.00 X10e3/UL) *ABSOLUTE EOSINOPHILS 0.84 X10e3/UL H (0.00-0.50 X10e3/UL) *ABSOLUTE BASOPHILS 0.00 X10e3/UL (0.00-0.20 X10e3/UL) *NUCLEATED RBC MANUAL 9.0 /100 WBC H (0.0-1.0 /100 WBC) *POLYCHROMASIA 1+ BASOPHILIC STIPPLING 1+ RETICULOCYTE 3.70 % H (0.50-1.50 %) Hematology from 06/21/2016 7:33 PMWBC 15.8 X10e3/UL H (3.6-11.2 X10e3/UL) RBC 1.73 X10e6/UL L (3.63-4.92 X10e6/UL) HEMOGLOBIN 5.6 G/DL LL (11.0-14.3 G/DL) HEMATOCRIT 17.7 % L (31.2-41.9 %) *MCV 102.2 FL H (79.0-98.0 FL) *MCH 32.1 PG (27.0-33.0 PG) *MCHC 31.4 G/DL L (32.0-36.0 G/DL) *RDW 18.5 % H (12.3-17.0 %) *RDWSD 65.2 H (37.1-47.8 ) PLATELET 267 X10e3/UL (159-386 X10e3/UL) *MPV 9.2 FL (7.4-10.4 FL) *MANUAL DIFF PERFORMED SEGS 71.0 % *BANDS 0.0 % *LYMPHOCYTES 16.0 % *MONOCYTES 6.0 % *EOSINOPHILS 7.0 % *BASOPHILS 0.0 % *ABSOLUTE NEUTROPHILS 11.22 X10e3/UL H (1.80-7.80 X10e3/UL) *ABSOLUTE LYMPHOCYTES 2.53 X10e3/UL (1.00-3.00 X10e3/UL) *ABSOLUTE MONOCYTES 0.95 X10e3/UL (0.30-1.00 X10e3/UL) *ABSOLUTE EOSINOPHILS 1.11 X10e3/UL H (0.00-0.50 X10e3/UL) *ABSOLUTE BASOPHILS 0.00 X10e3/UL (0.00-0.20 X10e3/UL) *NUCLEATED RBC MANUAL 2.0 /100 WBC H (0.0-1.0 /100 WBC) *POLYCHROMASIA 2+ ANISOCYTOSIS 3+ *MACROCYTIC 1+ SCHISTOCYTES 1+ BASOPHILIC STIPPLING 2+ Urinalysis from 06/21/2016 9:10 PM*URINE COLOR YELLOW (STRAW/YELL/DK YELL ) *URINE APPEARANCE CLEAR (CLEAR ) URINE PH 6.0 (5.0-8.0 ) URINE SPECIFIC GRAVITY 1.020 (<=1.005->=1.030 ) *URINE GLUCOSE NEGATIVE MG/DL (NEGATIVE MG/DL) *URINE BILIRUBIN NEGATIVE (NEGATIVE ) *URINE KETONES NEGATIVE MG/DL (NEGATIVE MG/DL) *URINE BLOOD SMALL A (NEGATIVE ) *URINE PROTEIN 30 MG/DL A (NEGATIVE MG/DL) *URINE UROBILINOGEN 0.2 EU/DL (0.2-1.0 EU/DL) *URINE NITRITES NEGATIVE (NEGATIVE ) *URINE LEUKOCYTES SMALL A (NEGATIVE ) *MICROSCOPIC EXAM PERFORMED PERFORMED *WBC URINE 5-10 /HPF A (0-5 /HPF) *RBC URINE 1-5 /HPF A (0-1 /HPF) *SQUAMOUS EP. CELLS FEW /LPF (NEG-FEW /LPF) *TRANSITIONAL EP. CELLS FEW /LPF (NEG-FEW /LPF) *MUCOUS THREADS FEW /LPF A (NEGATIVE /LPF) Coagulation from 06/21/2016 7:33 PM*PROTHROMBIN TIME 11.6 SECONDS H (9.4-11.5 SECONDS) *INR 1.1 (0.9-1.1 ) PARTIAL THROMBOPLASTIN TIME 26.1 SECONDS (23.0-31.0 SECONDS) Microbiology from 06/21/2016 9:10 PM* CULTURE URINE Specimen Number: [id number] Sample Collection Date/Time: 06/21/2016 9:10 PM Specimen Source: Urine CULTURE URINE: 10,000 cfu/ml - 50,000 cfu/ml 3 or more gram positive colony types Suggestive of colonization or contamination Microbiology from 06/21/2016 7:33 PM* CULTURE BLOOD (Preliminary Result) Specimen Number: [id number] Sample Collection Date/Time: 06/21/2016 7:33 PM Specimen Source: Blood PERIPHRL CULTURE BLOOD: No growth after 24 hours of incubation, testing to continue for an additional 96 hours. No Growth after 48 hours of initial incubation, testing to continue for additional 72 hours. * CULTURE BLOOD (Preliminary Result) Specimen Number: [id number] Sample Collection Date/Time: 06/21/2016 7:33 PM Specimen Source: Blood PERIPHRL CULTURE BLOOD: No growth after 24 hours of incubation, testing to continue for an additional 96 hours. No Growth after 48 hours of initial incubation, testing to continue for additional 72 hours. Body Fluids from 06/22/2016 10:55 AMFECAL OCCULT BLOOD 1 (Hemoccult) POSITIVE A (NEGATIVE ) Blood Bank from 06/21/2016 7:33 PMANTIBODY SCREEN (Indirect [place]) NEG RED BLOOD CELLS [id number] transfused compatible [id number] transfused compatible [id number] transfused compatible [id number] transfused compatible *ABO Group B RH TYPE POS DX Radiology from 06/21/2016 7:44 PMCHEST 1 VIEW History: ams Priors: 04/16/16 Findings: A stent overlies the heart. A left-sided cardiac pacemaker is in place. The cardiac silhouette is mildly enlarged. The pulmonary vasculature is at the upper limits of normal. No focal infiltrates or effusions are demonstrated. Impression: Cardiomegaly. Electronically signed by: Gilmar Rivera MD Dictated: 06/22/2016 12:28 CT Scan from 06/21/2016 7:59 PMCT ABD/PELVIS W/O CONTRAST History: Generalized abdominal pain and fatigue. Priors: None. Findings: Abdomen Lung bases: Note is made of bronchiectasis and a few scattered nonspecific infiltrates in the lung bases. Liver: Normal density. No definable mass. Spleen: The spleen is surgically absent. Pancreas: No discrete mass or inflammatory process. Gallbladder and biliary tract: The gallbladder surgically absent. Adrenal glands: Normal. Kidneys: No nephrolithiasis. No Hydronephrosis. There multiple hyperdense lesions involving both kidneys. These most likely represent hemorrhagic cysts but ultrasound could be performed to exclude underlying solid lesion. Urinary Bladder: Normal. Aorta: Normal in caliber. There is advanced atherosclerosis of the aorta and branch vessels. No periaortic lymphadenopathy. Bowel and Mesentery: There are multiple diverticula in the colon. No findings of appendicitis. Ascites: None. There is a fat containing left inguinal hernia. Pelvis Lymphadenopathy: None. Reproductive: Hysterectomy Osseous Structures: No suspicious findings. Impression: Postoperative changes. Multiple hyperdense lesions involving the kidneys. These likely represent hemorrhagic cysts but ultrasound could be performed to exclude underlying solid lesion. Diverticulosis. Fat containing left inguinal hernia. Electronically signed by: Gilmar Rivera MD Dictated: 06/22/2016 11:29 Problems Encounter Diagnosis No relevant problems exist. [...]
--- OUTSIDE RECORDS SUMMARY | 2017-02-26 16:35 | XMS REPORT | Referral Summary ---
Author Author [facility] Organization [facility] Address Unknown Phone Unavailable Care Team Providers Care Polymer Scientist Name Role Phone Doug Mcduffie Primary Care Physician [phone] Encounter VC Date(s): 04/24/16 - 04/24/16 [facility] [address] [place] [address] GC [phone] Discharge Disposition: 01-Home or Self Care Attending Physician: Matty Law MD Admitting Physician: Matty Law MD Vital Signs Most recent to 1 oldest [Reference Range]: Temperature Skin 36.0 degC [36-37 degC] (04/24/16 9:00 AM) Temperature Temporal 36.5 degC Artery [36.3-37.8 (04/24/16 11:20 AM) degC] Peripheral Pulse 60 bpm Rate [60-100 bpm] (04/24/16 4:00 PM) Respiratory Rate 16 br/min [14-20 br/min] (04/24/16 4:00 PM) Blood Pressure 112/64 mmHg [90-140/60-90 mmHg] (04/24/16 4:00 PM) SpO2 98 % (04/24/16 4:00 PM) Problem List Condition Effective Dates Status [...] Myalgia(Confirmed) Active patient Non Hodgkin's Active lymphoma(Confirmed) 1Problem added automatically by system based on initiation of Risk for Injury Plan of Care Allergies, Adverse Reactions, Alerts Substance Reaction Severity Status Ceftin Active cefuroxime Adverse Reaction Medium Active cephalosporins Active Medications acyclovir 400 mg oral tablet 400 mg 1 tabs, Oral, BID, 0 Refill(s) Start Date: 04/08/16 Status: Ordered allopurinol 300 mg oral tablet 300 mg 1 tabs, Oral, Daily, 0 Refill(s) Start Date: 04/08/16 Status: Ordered aspirin 81 mg oral tablet 81 mg 1 tabs, Oral, Daily, 0 Refill(s) Start Date: 04/08/16 Status: Ordered Brovana 15 mcg/2 mL inhalation [...] oral tablet 325 mg 1 tabs, Oral, BID, 0 Refill(s) [...] 0 Refill(s) Start Date: 04/08/16 Status: Ordered [facility] Medication Pt receives IVIG every 4 weeks. Last dose was April 02, 2016, 0 Refill(s) Start Date: 04/09/16 Status: Ordered multivitamin 1 tablet, Oral, Daily, 0 Refill(s) Start Date: 04/08/16 Status: Ordered pantoprazole 40 mg oral delayed release tablet 40 mg 1 tabs, Oral, Daily, 0 Refill(s) Start Date: 04/09/16 Status: Ordered propranolol 40 mg oral tablet [...] Refill(s) Start Date: 04/09/16 Status: Ordered Results Chemistry Most recent to 1 oldest [Reference Range]: Sodium Lvl [136-144 143 mEq/L mEq/L] (04/24/16 8:53 AM) Potassium Lvl 4.1 mEq/L [3.6-5.1 mEq/L] (04/24/16 8:53 AM) Chloride [99-109 98 mEq/L mEq/L] *LOW* (04/24/16 8:53 AM) CO2 [22-32 mEq/L] 36 mEq/L *HI* (04/24/16 8:53 AM) AGAP [3-20] 9 (04/24/16 8:53 AM) BUN [4-20 mg/dL] 25 mg/dL *HI* (04/24/16 8:53 AM) Glucose Lvl [70-100 104 mg/dL mg/dL] *HI* (04/24/16 8:53 AM) Creatinine Lvl 1.15 mg/dL [0.44-1.03 mg/dL] *HI* (04/24/16 8:53 AM) eGFR [>60] 45 1 *ABN* (04/24/16 8:53 AM) Calcium Lvl 9.3 mg/dL [8.6-10.0 mg/dL] (04/24/16 8:53 AM) 1Result Comment: Multiply eGFR results by 1.21 for race. Immunizations No data available for this section Procedures Procedure Date Related Diagnosis Body Site Transesophageal echocardiogram 02/05/16 Bone density scan 01/15/16 Mammogram 01/15/16 Malignant lymphoma of spleen 2011 AVR - Aortic valve replacement1 03/10/03 Hx of mitral valve repair2 03/10/03 Permanent cardiac pacemaker3, 4 1995 Appendectomy Cholecystectomy 1[employer] 21 mm bioprosthetic valve serial #[id number], model 2700 2used a [employer] Stitch 3[employer] 4Intital implant was 1995 and replaced in 2002 Social History Social History Type Response Smoking Status Never smoker Assessment and Plan No data available for this section
--- OUTSIDE RECORDS SUMMARY | 2017-02-26 16:35 | XMS REPORT | Continuity of Care Document ---
Author Author [facility] Organization [facility] Address Unknown Phone Unavailable Support Name Relationship Address Phone JULIA SHEA MD Caregiver [address] [place] [address] Unavailable ELVER TORO MD Caregiver [address] [place] [address] Unavailable GIO ELISABET Next Of Kin [address] [place] [address] Insurance Providers Guarantor Genesis Duque Address [address] [place] [address] ANGELI Email DENIED/NO TO [facility] Policy Number [id number] Subscriber's Name NetoGenesis amin Cece Relationship 18 Self Effective Date 16 Expiration Date 16 Payer Medicare Policy Number [id number] Subscriber's Name NetoRickpoli Zhao Relationship 18 Self Effective Date 96 Advance Directives Directive Response Recorded Date/Time Advanced Directives Type DNR Documentation Living Will DPOA for Healthcare 04/27/14 6:50pm Ordered Resuscitation Status Limited Code 04/10/14 3:17pm Resuscitation Documents on File N "UNKNOWN" 04/27/14 6:50pm DPOA for Healthcare Only Y DAUGHTER 04/01/16 12:21pm Problems Active Problems Medical Problem Onset Date Status Anemia 05/03/2014 Acute Aortic valve disorder Unknown Acute CAD (coronary artery disease) Unknown Chronic CHF exacerbation Unknown Acute Chest pain Unknown Resolved Diastolic heart failure Unknown Chronic Essential hypertension Unknown Chronic Fever Unknown Acute Hypertension Unknown Chronic Immunodeficiency Unknown Acute Left leg pain Unknown Acute Left leg pain Unknown Acute Mitral valve regurgitation Unknown Acute Nausea Unknown Acute Nonrheumatic aortic (valve) stenosis Unknown Chronic Nonrheumatic tricuspid (valve) insufficiency Unknown Chronic Pleuritic chest pain Unknown Acute Pleuritic chest pain Unknown Acute Pulmonary hypertension Unknown Chronic Suspected DVT (deep vein thrombosis) 06/06/2014 Acute Tricuspid regurgitation Unknown Acute Surgical Problem Onset Date Status 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 Chronic H/O mitral valve repair Unknown Chronic Presence of prosthetic heart valve Unknown Status post placement of cardiac pacemaker Unknown Chronic Medications Current Home Medications Medication Dose Units Route Directions Days Qty Instructions Start Date Acetaminophen (Tylenol) 325 Mg Tablet 650 Mg Oral Every 6 Hours as needed for Pain 06/06/14 Acyclovir 400 Mg Tablet 1 Tab Oral Twice A Day 10/01/15 Albuterol Sulfate (Ventolin Hfa) 18 Gm Hfa.aer.ad 2 Puff Inhalation Every 6 Hours as needed for Prn Orders 04/27/14 Alendronate Sodium (Fosamax) 70 Mg Tablet 1 Tab Oral Weekly 04/01 Allopurinol 300 Mg Tablet 1 Tab Oral Daily 06/06/14 Aspirin 81 Mg Tab.chew 1 Tab Oral Daily 10/01/15 Duloxetine Hcl 60 Mg Capsule. 1 Cap Oral Daily 02/04/16 Ferrous Sulfate (Iron) 325 ( Tablet 1 Tab Oral Daily 04/10/14 Folic Acid 1 Mg Tablet 1 Tab Oral Daily 06/06/14 Furosemide (Lasix) 40 Mg Tablet 1 Tab Oral Twice A Day 04/10/14 Furosemide 40 Mg Tablet 0.5 Tab Oral Give At Noon as needed for Prn Orders 10/01/15 Ipratropium/Albuterol Sulfate (Iprat-Albut 0.5-3(2.5) Mg/3 Ml) 3 Ml Ampul.neb 1 Amp Inhalation Twice A Day 10/01/15 Lorazepam (Ativan) 0.5 Mg Tablet 1-3 Tab Oral Daily as needed for Anxiety 06/06/14 Mirtazapine (Remeron) 45 Mg Tablet 0.5 Tab Oral Bedtime 04/10/14 Multivitamins (Multivitamin) 1 Tab Tablet 1 Tab Oral Daily Ondansetron Hcl (Zofran) 4 Mg Tablet 4 Mg Oral Every 6 Hours for Nausea 20 Tablet 10/01/15 Pantoprazole Sodium (Protonix) 40 Mg Tablet.dr 1 Tab Oral Daily 06/06/14 Polyethylene Glycol 3350 (Miralax) 17 Gm Powd.pack 17 Gm Oral Daily as needed for Constipation 04/27/14 Potassium Chloride (Klor-Con 10) 10 Meq Tablet.sa 1 Tab Oral Am 04/10/14 Propranolol Hcl 40 Mg Tablet 1.5 Tab Oral Twice A Day 10/01/15 Rituximab (Rituxan) 100 Mg/10 Ml Vial 1 Dose Intraven Q8w Ropinirole Hcl 2 Mg Tablet 1 Tab Oral Bedtime 10/01/15 Past Home Medications Medication Directions Ordered Status Acetaminophen (Tylenol) 500 Mg Tablet, 2 Tab Oral Every 6 Hours as needed for Arthritis 04/27/14 Discontinued Albuterol Sulfate 2.5 Mg/0.5 Ml Vial.neb, 3 Mg Inhalation Twice A Day Discontinued Aspirin (Aspirin Ec) 81 Mg Tablet.dr, 81 Mg Oral Daily 04/27/14 Discontinued Duloxetine Hcl (Cymbalta) 30 Mg Capsule., 1 Cap Oral Am 04/10/14 Discontinued Famotidine 40 Mg Tablet, 40 Mg Oral Twice A Day 04/10/14 Discontinued Prednisone 20 Mg Tablet, 20 Mg Oral Daily 04/27/14 Discontinued Propranolol Hcl (Inderal) 40 Mg Tablet, 40 Mg Oral Twice A Day 04/10/14 Discontinued Simvastatin (Zocor) 40 Mg Tablet, 40 Mg Oral Bedtime 04/10/14 Discontinued Social History Social History Problem Response Recorded Date/Time Onset Date Status Chewing Tobacco Status No 04/01/2016 12:22pm Not Applicable Not Applicable Hx Substance Use No 04/01/2016 12:22pm Not Applicable Not Applicable Hx Alcohol Use No 04/01/2016 12:22pm Not Applicable Not Applicable Has the pt used tobacco in the last 12 months No 04/01/2016 12:22pm Not Applicable Not Applicable Tobacco Usage none 04/01/2016 12:42pm Not Applicable Not Applicable Query Response Start Date Stop Date Smoking Status Never smoker Hospital Discharge Instructions Instructions: Care Instructions: Reason for Hospitalization: CARDIAC CATHETERIZATION I was in the hospital because (patient own words): "HEART CATH" Discharge Activity: Light Activity for: 3 days Lift no more than 10 pounds for: 1 week Follow Up Appointments: FOLLOW UP WITH DR. SHEA IN HIS OFFICE ON 04/29/2016 AT 11:40 AM. Pending Lab / Results: No Pending Lab Patient Instructions: Do not drive, operate machinery, drink alcohol for:24 hours Notify Physician If: If any pain, fever, swelling, signs of infection, any concerns Condition at time of discharge: Good Plan of Care Discharge Date 04/01/16 7:10pm Instructions/Education Provided [facility] Heart Cath Prescriptions See Medication Section Functional Status Query Response Date Recorded Mobility Status Ambulatory w/assist April 01, 2016 1:45pm Assistive Devices Standard Walker April 01, 2016 1:45pm Activity Limitations Weakness April 01, 2016 1:45pm Feeding Ability Independent April 01, 2016 1:45pm Toileting Ability Assist April 01, 2016 1:45pm Grooming Ability Assist April 01, 2016 1:45pm Dressing Ability Assist April 01, 2016 1:45pm Driving Ability Dependent April 01, 2016 1:45pm Housework Ability Assist April 01, 2016 1:45pm Meal Preparation Ability Assist April 01, 2016 1:45pm Stair Climbing Ability Assist April 01, 2016 1:45pm Ability to complete ADL's impeded by No change April 01, 2016 1:45pm Cognitive/Perceptual Impairments Impaired vision April 01, 2016 1:45pm Visual Assistive Devices Glasses With patient April 01, 2016 1:45pm Allergies, Adverse Reactions, Alerts Allergen Type Severity Reaction Status Last Updated Cefuroxime Allergy Mild GI upset Active 10/01/15 Axetil Allergy Mild GI Upset Active 04/10/14 Immunizations Query Response on File Recorded Date/Time Hx Influenza Vaccination Y JUL 2015 04/01/16 12:22pm Hx Pneumococcal Vaccination Y AUG 2015 04/01/16 12:22pm Hx Influenza Vaccination Y JUL 2015 04/01/16 12:22pm Influenza Vaccine Hx 201410/01/15 2:16pm Tetanus Diptheria Vaccine History UNKNOWN 10/01/15 2:16pm Vital Signs Acute Vital Signs Vital Response Date/Time Temperature (Fahrenheit) 98.1 deg F (96.8 - 99.1) 04/01/2016 12:48pm Temperature (Calculated Celsius) 36.30542 degrees C (36.0 - 37.3) 04/01/2016 12:48pm Pulse Rate (adult) 60 bpm (60 - 100) 04/01/2016 6:50pm Respiratory Rate 40 breaths/min (10 - 20) 04/01/2016 6:50pm O2 Sat by Pulse Oximetry 95 % (90 - 100) 04/01/2016 6:50pm Oxygen Delivery Method Room Air 04/01/2016 7:28pm Oxygen Delivery Method Nasal Cannula 04/01/2016 4:00pm Oxygen Flow Rate 2.00 L/min 04/01/2016 4:00pm Blood Pressure 135/74 mm Hg 04/01/2016 6:50pm Blood Pressure Source Automatic Cuff 04/01/2016 6:50pm Height (Feet) 5 feet 04/01/2016 12:42pm Height (Inches) 0.00 inches 04/01/2016 12:42pm Weight (Kilograms) 55.400 kg 04/01/2016 12:20pm Body Mass Index (BMI) 23.9 04/01/2016 12:20pm Results Laboratory Results Test Name Result Units Flags Reference Collection Date/Time Result Date/ Time Comments Magnesium Level 1.7 MG/DL 1.6-2.3 02/05/2016 12:07pm 02/05/2016 12: 25pm Absolute Reticulocyte Count 0.1071 T/MM3 H 0.0300-0.0900 02/04/2016 9: 00am 02/04/2016 9:21am Percent Reticulocyte Count 3.5 % H 0.6-1.7 02/04/2016 9:00am 02/04/2016 9:21am Immature Reticulocyte Fraction 13.6 % 3.3-14.5 02/04/2016 9:00am 2015 9:21am Reticulocyte Hgb Content (CHr) 35.1 PG 30.8-36.6 02/04/2016 9:00am 08/2016 9:21am Total Bilirubin 0.40 MG/DL 0.20-1.30 02/04/2016 9:00am 02/04/2016 9: 25am Alkaline Phosphatase 106 U/L 38-126 02/04/2016 9:0002/04/2016 9: 25am Total Protein 7.2 G/DL 6.3-8.2 02/04/2016 9:0002/04/2016 9:25am Albumin 3.9 G/DL 3.5-5.0 02/04/2016 9:00am 02/04/2016 9:25am Globulin 3.3 G/DL 2.4-3.6 02/04/2016 9:00am 02/04/2016 9:25am Albumin/Globulin Ratio 1.2 RATIO 1.1-2.2 02/04/2016 9:00am 02/04/2016 9 :25am Aspartate Amino Transf (AST/SGOT) 40 U/L H 14-36 02/04/2016 9:00am 02/03 9:25am Alanine Aminotransferase (ALT/SGPT) 24 U/L 9-52 02/04/2016 9:00am 02/03 9:25am Lactate Dehydrogenase 914 U/L H 313-618 02/04/2016 9:00am 02/04/2016 9: 43am Uric Acid 3.3 MG/DL 2.5-7.5 02/04/2016 9:00am 02/04/2016 9:25am Immunoglobulin G 919.20 MG/DL 700-1600 02/04/2016 9:00am 02/04/2016 9: 51am Immunoglobulin A < 40.00 MG/DL L 70-400 02/04/2016 9:00am 02/04/2016 9: 51am Immunoglobulin M < 25.00 MG/DL L 40-230 02/04/2016 9:00am 02/04/2016 9: 51am Haptoglobin 168 mg/dL 36-195 02/04/2016 9:00am 02/04/2016 4:50pm Haptoglobin performed at [facility], [address] [place] [address] Sports Marketer Carlos Small DO Serum Total Protein 5.8 g/dL L 6.2-8.1 02/04/2016 9:00am 02/04/2016 3: 00pm Immunoelectrophoresis, no IMQ performed at [facility], [address] [place] [address] Sports Marketer Carlos Small DO Albumin (PEP) 3.1 g/dL 2.6-4.5 02/04/2016 9:00am 02/08/2016 2:40pm Vpxut-1-Suqevpsec 0.4 g/dL 0.3-0.5 02/04/2016 9:00am 02/08/2016 2:40pm Caxfm-1-Tyysbwqdr 0.9 g/dL 0.6-1.2 02/04/2016 9:00am 02/08/2016 2:40pm Toph-7-Laahcotw 0.4 g/dL 0.4-0.6 02/04/2016 9:00am 02/08/2016 2:40pm Qafa-9-Hnxvgjfv 0.3 g/dL 0.2-0.5 02/04/2016 9:00am 02/08/2016 2:40pm Gamma Globulins 0.7 g/dL 0.4-1.7 02/04/2016 9:00am 02/08/2016 2:40pm Albumin % (PEP) 53.1 % 48.7-61.8 02/04/2016 9:00am 02/08/2016 2:40pm Aexji-5-Sdvjrirzn (%) 6.4 % 3.4-8.3 02/04/2016 9:00am 02/08/2016 2: 40pm Srfvi-0-Efqiswklp (%) 15.7 % 8.4-17.5 02/04/2016 9:00am 02/08/2016 2: 40pm Zojq-4-Ysqgzdwz (%) 6.9 % 5.4-8.9 02/04/2016 9:00am 02/08/2016 2:40pm Qxis-3-Psngsfin (%) 5.7 % 3.8-7.7 02/04/2016 9:00am 02/08/2016 2:40pm Gamma Globulins (%) 12.2 % 8.1-23.0 02/04/2016 9:00am 02/08/2016 2: 40pm Immunoelectrophoresis, no IMQ performed at [facility], [address] [place] [address] Sports Marketer Carlos Small DO Protein Electrophoresis Comment see below () 02/04/2016 9:00am 2015 2:40pm Normal electrophoretic pattern. No monoclonal peaks or restricted areas observed by immunofixation. Free [place]/Lambda Light Chain Ratio 1.50 () 02/04/2016 9:00am 2015 2:16pm Reference Range: 0.2600-1.65 Test Performed by: [address] [address] Seed Cleaning Manager: Gigi Quevedo II, M.D., Ph.D. Immunoglobulin Free Light Chains, Serum performed at [facility], [address] [place] [address] Sports Marketer Emy Jeronimo MD Free [place] Light Chains 1.22 mg/dL () 02/04/2016 9:00am 02/05/2016 2: 16pm Reference Range: 0.3300-1.94 Free [place]ambda Light Chains 0.8110 mg/dL () 02/04/2016 9:00am 02/05/2016 2 :16pm Reference Range: 0.5700-2.63 Test Performed by: [place] [address] Seed Cleaning Manager: Gigi Queevdo II, M.D., Ph.D. Immunoglobulin Free Light Chains, [place] [address] Sports Marketer Emy Jeronimo MD Reference Range: 0.5700-2.63 Test Performed by: [place] [address] Seed Cleaning Manager: Gigi Quevedo II, M.D., Ph.D. --- 02/05/16 1416 --- IFLCLA previously reported as: 0.8110 mg/dL Reference Range: 0.5700-2.63 Test Performed by: [place] [address] Seed Cleaning Manager: Gigi Quevedo II, M.D., Ph.D. Immunoglobulin Free [place] Chains, [place] [address] Sports Marketer Emy Jeronimo MD White Blood Count 13.9 T/MM3 H 4.5-11.0 04/01/2016 12:59pm 04/01/2016 1: 50pm Red Blood Count 2.89 M/MM3 L 4.00-5.20 04/01/2016 12:59pm 04/01/2016 1: 50pm Hemoglobin 9.7 GM/DL L 12-16 04/01/2016 12:59pm 04/01/2016 1:50pm Hematocrit 31.9 % L 36-46 04/01/2016 12:59pm 04/01/2016 1:50pm Mean Corpuscular Volume 110.4 UM3 H 80-100 04/01/2016 12:59pm 2015 1:50pm Mean Corpuscular Hemoglobin 33.6 UUG 26-34 04/01/2016 12:59pm 2015 1:50pm Mean Corpuscular Hemoglobin Concent 30.4 GM/DL L 31-37 04/01/2016 12: 59pm 04/01/2016 1:50pm RDW Standard Deviation 57.2 FL H 36.9-50.2 04/01/2016 12:59pm 2015 1:50pm Platelet Count 213 T/MM3 130-400 04/01/2016 12:59pm 04/01/2016 1:50pm Mean Platelet Volume 12.1 UM3 9.4-12.4 04/01/2016 12:59pm 04/01/2016 1: 50pm Neutrophils (%) (Auto) 64.3 % 33-66 04/01/2016 12:59pm 04/01/2016 1: 50pm Lymphocytes (%) (Auto) 26.3 % 23-45 04/01/2016 12:59pm 04/01/2016 1: 50pm Monocytes (%) (Auto) 5.2 % 0-9.0 04/01/2016 12:59pm 04/01/2016 1:50pm Eosinophils (%) (Auto) 3.4 % 0-4 04/01/2016 12:59pm 04/01/2016 1:50pm Basophils (%) (Auto) 0.4 % 0-2 04/01/2016 12:59pm 04/01/2016 1:50pm Immature Granulocyte % (Auto) 0.4 % 0.0-0.5 04/01/2016 12:59pm 2015 1:50pm Absolute Neutrophils (auto) 9.0 T/MM3 H 1.8-7.7 04/01/2016 12:59pm 04/01 1:50pm Absolute Lymphocytes (auto) 3.7 T/MM3 1-4.8 04/01/2016 12:59pm 2015 1:50pm Absolute Monocytes (auto) 0.7 T/MM3 0-0.8 04/01/2016 12:59pm 2015 1:50pm Absolute Eosinophils (auto) 0.5 T/MM3 0-0.5 04/01/2016 12:59pm 2015 1:50pm Absolute Basophils (auto) 0.1 T/MM3 0-0.2 04/01/2016 12:59pm 2015 1:50pm Absolute Immature Granulocyte (auto 0.06 T/MM3 H 0.00-0.03 04/01/2016 12: 59pm 04/01/2016 1:50pm Icterus Index < 2 0-7 04/01/2016 12:59pm 04/01/2016 2:00pm Chemistry Specimen Hemolysis < 15 0-25 04/01/2016 12:59pm 04/01/2016 2:00pm 0-25: Specimen Exhibited No Hemolysis. Turbidity < 20 0-20 04/01/2016 12:59pm 04/01/2016 2:00pm Sodium Level 143 MEQ/L 134-144 04/01/2016 12:59pm 04/01/2016 2:00pm Potassium Level 4.4 MEQ/L 3.6-5 04/01/2016 12:59pm 04/01/2016 2:00pm Chloride Level 100 MEQ/L 98-107 04/01/2016 12:59pm 04/01/2016 2:00pm Carbon Dioxide Level 36 MEQ/L H 22-30 04/01/2016 12:59pm 04/01/2016 2: 00pm Anion Gap 7 MEQ/L 5-15 04/01/2016 12:59pm 04/01/2016 2:00pm Blood Urea Nitrogen 27.0 MG/DL H 7-17 04/01/2016 12:59pm 04/01/2016 2: 00pm Creatinine 1.1 MG/DL 0.7-1.2 04/01/2016 12:59pm 04/01/2016 2:00pm BUN/Creatinine Ratio 25 RATIO 6-26 04/01/2016 12:59pm 04/01/2016 2: 00pm Glomerular Filtration Rate Calc 47 04/01/2016 12:59pm 04/01/2016 2: 00pm Glucose Level 87 MG/DL 65-110 04/01/2016 12:59pm 04/01/2016 2:00pm Calculated Osmolality 279 MOSM/KG 261-280 04/01/2016 12:59pm 2015 2:00pm Calcium Level 9.6 MG/DL 8.4-10.2 04/01/2016 12:59pm 04/01/2016 2:00pm Oxygen Delivery Method (LAB) ROOM AIR 04/01/2016 3:33pm 04/01/2016 3:37pm Venous Blood pH 7.318 7.31-7.41 04/01/2016 3:33pm 04/01/2016 3:37pm Venous Blood Partial Pressure CO2 67.0 MMHG H 40-52 04/01/2016 3:33pm 3:37pm Venous Blood Partial Pressure O2 40 MMHG 40-52 04/01/2016 3:33pm 2015 3:37pm Venous Blood HCO3 34 MEQ/L H 22-26 04/01/2016 3:33pm 04/01/2016 3:37pm Venous Blood Total Carbon Dioxide 36 MEQ/L 04/01/2016 3:33pm 2015 3:37pm Venous Blood Base Excess 7.0 MMOL/L H -2.0-2.0 04/01/2016 3:33pm 2015 3:37pm Venous Blood Oxygen Saturation 68.0 % 04/01/2016 3:33pm 04/01/2016 3: 37pm Procedures Procedure Status Date Provider(s) ROUTINE VENIPUNCTURE Completed 02/05/16 METABOLIC PANEL TOTAL CA Completed 02/05/16 ASSAY OF MAGNESIUM Completed 02/05/16 ELECTROCARDIOGRAM TRACING Completed 02/05/16 ECHO TRANSESOPHAGEAL Completed 02/05/16 DOPPLER ECHO EXAM HEART Completed 02/05/16 DOPPLER COLOR FLOW ADD-ON Completed 02/05/16 685773"INJECTION, MIDAZOLAM HYDROCHLORIDE, PER 1 MG" Completed 02/05/16 302645"INJECTION, FENTANYL CITRATE, 0.1 MG" Completed 02/05/16 COMPREHEN METABOLIC PANEL Completed 02/04/16 ASSAY IGA/IGD/IGG/IGM EACH Completed 02/04/16 ASSAY IGA/IGD/IGG/IGM EACH Completed 02/04/16 ASSAY IGA/IGD/IGG/IGM EACH Completed 02/04/16 ASSAY OF HAPTOGLOBIN QUANT Completed 02/04/16 LACTATE (LD) (LDH) ENZYME Completed 02/04/16 ASSAY OF MAGNESIUM Completed 02/04/16 ASSAY NEPHELOMETRY NOT SPEC Completed 02/04/16 ASSAY NEPHELOMETRY NOT SPEC Completed 02/04/16 ASSAY OF PROTEIN SERUM Completed 02/04/16 PROTEIN E-PHORESIS SERUM Completed 02/04/16 ASSAY OF BLOOD/URIC ACID Completed 02/04/16 COMPLETE CBC W/AUTO DIFF WBC Completed 02/04/16 MANUAL RETICULOCYTE COUNT Completed 02/04/16 IMMUNOFIX E-PHORESIS SERUM Completed 02/04/16 Encounters Encounter Location Arrival/Admit Date Discharge/Depart Date Attending Provider Departed [facility] 04/01/16 12:02pm 04/01/16 7:10pm JULIA SHEA MD Departed [facility] 02/05/16 11:12am 02/05/16 2:35pm JULIA SHEA MD Registered [facility] 02/04/16 9:06am SABINO FORD Recent Diagnosis Pulmonary hypertension Suspected DVT (deep vein thrombosis) Tricuspid regurgitation
[2017-02-26] MEDS ORDERED: LORA0.5T2 PO (16:36)
[2017-02-26] MEDS ORDERED: HYOS0.124 SL (16:36)
[2017-02-26] MEDS ORDERED: ACET-2321 PO (16:36)
[2017-02-26] MEDS ORDERED: MENT118G TP (16:36)
[2017-02-26] MEDS ORDERED: METO-275 PO (16:36)
[2017-02-26] MEDS ORDERED: BUDE0.2510 AEROSOL (16:36)
[2017-02-26] MEDS ORDERED: ARFO15VI3 AEROSOL (16:36)
[2017-02-26] MEDS ORDERED: HYDR25TA85 PO (16:36)
[2017-02-26] MEDS ORDERED: LEVO25TA9 PO (16:36)
[2017-02-26] MEDS ORDERED: ASPI-557 PO (16:36)
[2017-02-26] MEDS ORDERED: FAMO20TA8 PO (16:36)
[2017-02-26] MEDS ORDERED: ROXANOL SL (16:36)
[2017-02-26] MEDS ORDERED: ONDA8TAB12 PO (16:36)
--- OUTSIDE RECORDS SUMMARY | 2017-02-26 16:36 | XMS REPORT ---
Author Author [facility] - Organization Unknown Address Unknown Phone Unavailable Allergies, Adverse Reactions, Alerts * cefuroxime causes Moderate Adverse Reaction. * Ceftin causes N/V, DIARRHEA. * Latex Allergy has not been assessed. * IV Contrast Allergy has not been assessed. * No Known Food Allergies. Problems * Abdominal Pain* Status:Resolved. * Fall Risk* Status:Active. * Hallucinations* Status:Active. * Infection* Status:Active. * Pain* Status:Resolved. * Pneumonia* Status:Inactive. Procedures No relevant procedures performed. Medication It is the responsibility of the patient or patient sales service representative to confirm the list of medications with either the patient's personal care provider or the patient's follow-up care provider to ensure the patient has an appropriate list of medications to take at home. Discharge medications* aspirin 81 mg tablet,delayed release (/RAJAN), Ordered By : Argelia Lintonitalevy Directions: 1 tablet oral daily * famotidine 40 mg Tablet, Ordered By: Argelia Lintonitar Directions: 1 tablet oral twice a day during meal * mirtazapine 7.5 mg Tablet, Ordered By: Argelia Lintonitar Directions: 1 tablet oral daily at bedtime * furosemide 20 mg Tablet, Ordered By: Argelia Lintonitar Directions: 1 tablet oral daily * haloperidol 0.5 mg Tablet, Ordered By: Argelia Lintonitar Directions: 0.5 tablet oral twice a day Additional Instructions: x5 days * MULTIVITAMIN W-MINERALS (THERAGRAN M (EQUIV)) 1 EACH=1 TAB Oral TAB DAILY STAT and then Routine Directions: 1 tablet oral daily * polysaccharide iron complex (Ferrex 150) 150 mg iron Capsule, Ordered By: Argelia Lintonitar Directions: 1 capsule oral daily * potassium chloride (Klor-Con 10) 10 mEq Tablet Extended Release, Ordered By: Argelia Vazquez Directions: 1 tablet oral twice a day during meal * predniSONE 2.5 mg Tablet, Ordered By: Argelia Vazquez Directions: 1 tablet oral daily * propranolol 40 mg Tablet, Ordered By: Argelia Vazquez Directions: 1 tablet oral twice a day * simvastatin (Zocor) 40 mg Tablet, Ordered By: Argelia Vazquez Directions: 1 tablet oral daily at bedtime * cephalexin 500 mg Capsule, Ordered By: Argelia Vazquez Directions: 1 capsule oral three times a day Additional Instructions: for 7 days * Please check urine culture result at mirror image for UTI treatment appropriateness Stopped medications* DULoxetine (Cymbalta) 30 mg capsule,delayed release(DR/EC) Directions: 1 capsule oral daily * OTC Multivitamin 1 tablet by mouth daily. Last dose taken at home: 05/16/13 AM Results LAB--CHEMISTRY from 05/16/2013 4:18 PMAnion Gap 9 (3-20 ) Albumin 3.5 g/dL (3.5-4.8 g/dL) Alkaline Phosphatase 57 U/L (26-104 U/L) ALT (SGPT) 18 U/L (14-54 U/L) AST (SGOT) 36 U/L (15-41 U/L) Bilirubin Total 0.6 mg/dL (0.2-1.2 mg/dL) BUN 15 mg/dL (4-20 mg/dL) Calcium 9.5 mg/dL (8.6-10.0 mg/dL) Chloride 102 mEq/L (99-109 mEq/L) CO2 25 mEq/L (22-32 mEq/L) Creatinine 1.05 mg/dL H (0.44-1.03 mg/dL) eGFR 50 A (>60- ) Globulin 3.6 g/dL (1.9-4.3 g/dL) Glucose 145 mg/dL H (70-100 mg/dL) Potassium 3.9 mEq/L (3.6-5.1 mEq/L) Sodium 136 mEq/L (136-144 mEq/L) Protein 7.1 g/dL (6.1-7.9 g/dL) Troponin <0.06 ng/mL (-<0.06 ng/mL) LAB--CHEMISTRY from 05/17/2013 4:56 AMAnion Gap 11 (3-20 ) Albumin 3.3 g/dL L (3.5-4.8 g/dL) Alkaline Phosphatase 52 U/L (26-104 U/L) ALT (SGPT) 16 U/L (14-54 U/L) AST (SGOT) 29 U/L (15-41 U/L) Bilirubin Total 0.8 mg/dL (0.2-1.2 mg/dL) BUN 14 mg/dL (4-20 mg/dL) Calcium 9.5 mg/dL (8.6-10.0 mg/dL) Chloride 100 mEq/L (99-109 mEq/L) CO2 29 mEq/L (22-32 mEq/L) Creatinine 1.08 mg/dL H (0.44-1.03 mg/dL) eGFR 49 A (>60- ) Globulin 3.2 g/dL (1.9-4.3 g/dL) Glucose 119 mg/dL H (70-100 mg/dL) Potassium 4.2 mEq/L (3.6-5.1 mEq/L) Sodium 140 mEq/L (136-144 mEq/L) Protein 6.5 g/dL (6.1-7.9 g/dL) LAB--HEMATOLOGY from 05/16/2013 4:18 PMAbsolute Basophils 0.04 THOUS (0.00-0.20 THOUS) Absolute Eosinophils 0.21 THOUS (0.00-0.50 THOUS) Absolute Lymphocytes 2.37 THOUS (0.80-3.30 THOUS) Absolute Monocytes 1.24 THOUS H (0.30-1.00 THOUS) Absolute Neutrophils 8.26 THOUS H (1.90-7.00 THOUS) HCT 39.0 % (37.0-47.0 %) HGB 12.7 g/dl (12.0-16.0 g/dl) MCH 33.1 pg H (27.0-32.0 pg) MCHC 32.6 g/dL (32.0-36.0 g/dL) MCV 101.6 fL H (82.0-99.0 fL) MPV 12.9 fL H (9.4-12.4 fL) Platelet Count 197 K/uL (150-400 K/uL) RBC 3.84 M/uL L (4.00-5.20 M/uL) RDW 14.0 % (11.5-14.5 %) WBC 12.2 K/uL H (4.8-10.8 K/uL) Basophils 0 % (0-2 %) Eosinophils 2 % (0-4 %) Immature Granulocytes 0.2 % (0.0-1.0 %) Lymphocytes 20 % (20-46 %) Monocytes 10 % (4-11 %) Nucleated RBC Automated 0.2 /100 WBC (0 /100 WBC) Neutrophils 68 % (51-75 %) LAB--HEMATOLOGY from 05/17/2013 4:56 AMAbsolute Basophils 0.05 THOUS (0.00-0.20 THOUS) Absolute Eosinophils 0.13 THOUS (0.00-0.50 THOUS) Absolute Lymphocytes 3.15 THOUS (0.80-3.30 THOUS) Absolute Monocytes 0.85 THOUS (0.30-1.00 THOUS) Absolute Neutrophils 6.76 THOUS (1.90-7.00 THOUS) HCT 38.1 % (37.0-47.0 %) HGB 12.2 g/dl (12.0-16.0 g/dl) MCH 33.0 pg H (27.0-32.0 pg) MCHC 32.0 g/dL (32.0-36.0 g/dL) MCV 103.0 fL H (82.0-99.0 fL) MPV 13.4 fL H (9.4-12.4 fL) Platelet Count 187 K/uL (150-400 K/uL) RBC 3.70 M/uL L (4.00-5.20 M/uL) RDW 14.1 % (11.5-14.5 %) WBC 11.0 K/uL H (4.8-10.8 K/uL) Basophils 1 % (0-2 %) Eosinophils 1 % (0-4 %) Immature Granulocytes 0.3 % (0.0-1.0 %) Lymphocytes 29 % (20-46 %) Monocytes 8 % (4-11 %) Nucleated RBC Automated 0.0 /100 WBC (0 /100 WBC) Neutrophils 62 % (51-75 %) LAB--URINE TESTS from 05/16/2013 5:16 PMAppearance Clear Bilirubin Negative (Negative ) Blood Negative (Negative ) Color Lt Yellow Glucose Negative (Negative ) Ketones, Urine Negative (Negative ) Leukocytes Esterase Trace A (Negative ) Nitrites Negative (Negative ) pH, Urine 5.0 (5.0-8.0 ) Protein Pos 3+ A (Negative ) Specific [place] 1.011 (1.003-1.030 ) Collection Type: Clean Catch Urobilinogen Negative mg/dL (-<1.0 mg/dL) Bacteria Moderate A Epithelial Cells 5-10 /HPF Hyaline Casts 1-3 /LPF (0-3 /LPF) RBC 0-2 /HPF (0-2 /HPF) WBC 5-10 /HPF A (0-4 /HPF)
--- OUTSIDE RECORDS SUMMARY | 2017-02-26 16:36 | XMS REPORT | Summary of Care ---
Author Author Chapito Muro Organization Unknown Address [address] [id number] Phone Unavailable Care Team Providers Care Day Care Attendant Name Role Phone Ferdinand Hammonds, Cece [...] CBC w/ Auto Diff 7150 Ordered: 06-Aug-2016 Urinalysis, Reflex to Microscopic or Culture PRN [id number] Ordered: 14-Aug-2016 Immunization Name Dates Details Influenza Lot #: [id number] on: 02-Aug-2010 Influenza Lot #: [id number] on: 24-Aug-2012 Pneumo (Pneumovax) Lot #: [id number] on: 24-Aug-2012 Fluzone High-Dose 0.5 ML Intramuscular Suspension Prefilled Syringe Lot #: [id number] on: 25-Jul-2015 Tdap (Adacel) Lot #: [id number] on: 05-Nov-2015 Family History Name Dates Details [...] m2 Status: Results Date Description Value Details 24-Jul-2016 11:40 [...] low threshold) Range: >60 EST GFR, NON-AFR BURUNDIAN 38 ml/min (Below low threshold) Range: >60 [...] Comments: ORDER IS IN OFFICE; COPY TO [facility] ( CC'D)Manual differential indicated. WBC 16.1 K/uL [...] Comments: ORDER IS IN OFFICE; COPY TO [facility] (CC'D) SEGS 78 % Range: 37-80 BANDS [...] Mod TARGET Present OVAL Present TEAR Present -Jul-2016 08:47 VIVIAN PE and FLC Serum [id number] Comments: Testing performed at : [DA[facility], [address] [place] [address], [place], [address], , Insights Strategist: KEILA Carranza MD IMMUNOGLOBULIN G, QN, SERUM 294 mg/dL (Below low threshold) Range: 700- 1600 IMMUNOGLOBULIN A, QN, SERUM 21 mg/dL (Below low threshold) Range: 64-422 IMMUNOGLOBULIN M, QN, SERUM <5 mg/dL (Below low threshold) Range: 26-217 Comments: Verified by repeat analysis----- PROTEIN, TOTAL, SERUM 5.2 g/dL (Below low threshold) Range: 6.0-8.5 ALBUMIN 3.0 g/dL Range: 2.9-4.4 HGAPB-4-GXLSIUVW 0.4 g/dL Range: 0.0-0.4 EHNKR-1-BGSORDBX 0.7 g/dL Range: 0.4-1.0 BETA GLOBULIN 0.8 g/dL Range: 0.7-1.3 GAMMA GLOBULIN 0.3 g/dL (Below low threshold) Range: 0.4-1.8 M-SPIKE Not Observed g/dL Range: Not Observed GLOBULIN, TOTAL 2.2 g/dL Range: 2.2-3.9 A/G RATIO 1.4 Range: 0.7-1.7 IMMUNOFIXATION RESULT, SERUM Comment Comments: An apparent normal immunofixation pattern.----- PLEASE NOTE: Comment Comments: Protein electrophoresis scan will follow via computer,mail, or compensation and benefits analyst delivery.----- FREE KAPPA LT CHAINS,S 11.69 mg/L Range: 3.30-19.40 FREE LAMBDA LT CHAINS,S 8.91 mg/L Range: 5.71-26.30 KAPPA/LAMBDA RATIO,S 1.31 Range: 0.26-1.65 Plan of Care Name Dates Details Planned Observations Planned Goals not documented Planned Encounters Appointment; Provider: Chapito Muro On 25-Aug-2016 15:30 Appointment; Provider: Stefan Streeter M.D. On 25-Aug-2016 13:15 Appointment; Provider: Krunal Lennon M.D. On 18-Aug-2016 14:30 Interventions Provided Labs/Procedures/Imaging* Urinalysis, Reflex to Microscopic or Culture PRN [id number]; To be Done: 14 Aug 2016 Instructions Name Dates Details Instructions not [...]
--- OUTSIDE RECORDS SUMMARY | 2017-02-26 16:36 | XMS REPORT | Summary of Care ---
Author Author Chapito Muro Organization Unknown Address [address] [place] [id number] Phone Unavailable Care Team Providers Care Machine Adjuster Leader Name Role Phone Ferdinand Hammonds, Cece Unavailable [...] Iron deficiency anemia (280.9, D50.9) Status: Active Medications Name Dates Details Multi-Day [...] 11 Stefan Streeter M.D. Start 23-Nov-2012 Active Ipratropium-Albuterol 0.5-2.5 (3) MG/3ML Inhalation Solution INHALE 1 VIAL Daily (dx:J44.9) * Quantity: 90 Refills: 11 Stefan Streeter M.D. Start 06-Dec-2012 Active Adult Aspirin EC Low Strength 81 MG Oral Tablet Delayed Release * Refills: 0 Henry Mendoza M.D. * Start 05-Jul-2013 Active Mirtazapine 45 MG Oral Tablet TAKE 1/2 TABLET DAILY * Refills: 0 Stefan Streeter M.D. Start 10-Oct-2013 Active Ventolin HFA 108 (90 [...] week apart * Quantity: 34 Refills: 0 Susanne Lennon M.D.rick * Start 15-Jul-2016 Active Potassium Chloride Summer ER 10 MEQ Oral Tablet Extended Release take 1 tab daily * Quantity: 90 Refills: 3 Chapito Muro * Start 19-Jan-2014 Active Allergies and Adverse Reactions Name [...] 7150 Ordered: Comprehensive Metabolic Panel 1212 Ordered: Immunization Name Dates Details Influenza Lot #: [id number] on: 02-Aug-2010 Influenza Lot #: [id number] on: 24-Aug-2012 Pneumo (Pneumovax) Lot #: [id number] on: 24-Aug-2012 Fluzone High-Dose 0.5 ML Intramuscular Suspension Prefilled Syringe Lot #: [id number] on: 25-Jul-2015 Tdap (Adacel) Lot #: [id number] on: 05-Nov-2015 Family History Name Dates Details [...] low threshold) Range: >60 EST GFR, NON-AFR PAPUA [place] GU[place] 32 ml/min (Below low threshold) Range: >60 [...] 524 pg/mL Range: 211-911 04-Jul-2016 12:21 Haptoglobin [id number] Comments: ORDER IN BOOK UNDER Test performed at: [DA] [facility], [address] [place] [address] , [place], [address], , Japanese Interpreter: KEILA Carranza MD HAPTOGLOBIN 215 mg/dL (Above high threshold) Range: 34-200 05-Jul-2016 09:28 VIVIAN PE and FLC Serum [id number] Comments: ORDER IN BOOK UNDER performed at: [DA] [facility], [address] [place] [address] , [place], [address], , Japanese Interpreter: KEILA Carranza MD IMMUNOGLOBULIN G, QN, SERUM 548 mg/dL (Below low threshold) Range: 700- 1600 IMMUNOGLOBULIN A, QN, SERUM 25 mg/dL (Below low threshold) Range: 64-422 IMMUNOGLOBULIN M, QN, SERUM <5 mg/dL (Below low threshold) Range: 26-217 Comments: Verified by repeat analysis----- PROTEIN, TOTAL, SERUM 5.7 g/dL (Below low threshold) Range: 6.0-8.5 ALBUMIN 3.0 g/dL Range: 2.9-4.4 BUZFE-6-VPVZXGCY 0.4 g/dL Range: 0.0-0.4 OKNMQ-9-QYMDVKLF 0.9 g/dL Range: 0.4-1.0 BETA GLOBULIN 1.0 g/dL Range: 0.7-1.3 GAMMA GLOBULIN 0.5 g/dL Range: 0.4-1.8 M-SPIKE Not Observed g/dL Range: Not Observed GLOBULIN, TOTAL 2.7 g/dL Range: 2.2-3.9 A/G RATIO 1.2 Range: 0.7-1.7 IMMUNOFIXATION RESULT, SERUM Comment Comments: An apparent normal immunofixation pattern.----- PLEASE NOTE: Comment Comments: Protein electrophoresis scan will follow via computer,mail, or patient safety officer delivery.----- FREE KAPPA LT CHAINS,S 15.27 mg/L [...] low threshold) Range: >60 EST GFR, NON-AFR PAPUA NEW GUINEAN 30 ml/min (Below low threshold) Range: >60 [...] Range: 2.6-4.7 15-Jul-2016 15:38 Cortisol - AM [id number] Comments: Testing performed at: [DA] [facility], [address] [place] [address] [address], [place], [address], Phone: , Japanese Interpreter: KEILA Carranza MD CORTISOL - AM 33.5 [...]
--- OUTSIDE RECORDS SUMMARY | 2017-02-26 16:36 | XMS REPORT ---
Author Author GENERATED, SYSTEM Organization Unknown Address Unknown Phone Unavailable Care Team Providers Care Recordist Chief Name Role Phone MD CORTEZ, EMILI PP [phone] Reason For Visit Chief Complaint CHEST PAIN Social History Functional Status Vital Signs Results [...] of Care Procedures * Completed Procedure Code: [id number] Procedure Name: not valued, on 07/30/2016 9: 59 AM * Completed Procedure Code: [id number] Procedure Name: not valued, on 07/30/2016 9: 59 AM * Completed Esophagogastroduodenoscopy with control of bleeding, by MD [facility], on 07/30/2016 9:21 AM * Completed Procedure Code: [id number] Procedure Name: not valued, on 07/21/2016 12 :00 AM * Completed Procedure Code: 39445 Procedure Name: not valued, on 07/21/2016 12: 00 AM * Completed Procedure Code: 65393 Procedure Name: not valued, on 07/21/2016 12: 00 AM * Completed Procedure Code: [id number] Procedure Name: not valued, on 06/21/2016 12 [...]
--- OUTSIDE RECORDS SUMMARY | 2017-02-26 16:37 | XMS REPORT | Summary of Care ---
Author Author Krunal Lennon M.D. Organization Unknown Address Unknown Phone Unavailable Care Team Providers Care Gas Torch Brazier Name Role Phone Cece Streeter M.D. Unavailable [...] Status: Active Melena (578.1, K92.1) Status: Active Medications Name Dates Details Multi-Day [...] CBC w/ Auto Diff 7150 Ordered: 25-Aug-2016 RENAL PROFILE 1240 Ordered: 02-Sep-2016 HEMOGRAM 7305 Ordered: 02-Sep-2016 Immunization Name Dates Details Influenza Lot #: [id number] on: 02-Aug-2010 Influenza Lot #: [id number] on: 24-Aug-2012 Pneumo (Pneumovax) Lot #: [id number] on: 24-Aug-2012 Fluzone High-Dose 0.5 ML Intramuscular Suspension Prefilled Syringe Lot #: [id number] on: 25-Jul-2015 Tdap (Adacel) Lot #: [id number] on: 05-Nov-2015 Family History Name Dates Details [...] /HPF Range: 0-10 18-Aug-2016 10:59 URINE CULTURE [id number] Comments: [facility] at: [facility], [address] [place] [address], [address], Photographer: Gigi Alberto D.O., MPHQuest Collection Date/Time: [id number] Results Received Date/Time: [id number] Reported Date/Time: FASTING:NOQuest performed at: [facility], [address] [place] [address], Photographer: Gigi Alberto D.O., MPHQuest Collection Date/Time: [id number] Results Received Date/Time: [id number] Reported Date/Time: FASTING:NOQuest performed at: [facility], [address] [place] [address], [address], Photographer: Gigi Alberto D.O., MPHQuest Collection Date/Time: [id number] Results Received Date/Time: [id number] Reported Date/Time: FASTING:NO CULTURE, URINE, ROUTINE SEE NOTE (Abnormal) Comments: CULTURE, URINE, ROUTINE MICRO NUMBER: [id number] TEST STATUS: FINAL SPECIMEN SOURCE : URINE [...] low threshold) Range: >60 EST GFR, NON-AFR HUNGARIAN 28 ml/min (Below low threshold) Range: >60 [...] low threshold) Range: >60 EST GFR, NON-AFR HUNGARIAN 28 ml/min (Below low threshold) Range: >60 [...] <2 years of age----- Plan of Care Name Dates Details Planned Observations Planned Goals not documented Planned Encounters Appointment; Provider: Chapito Muro On 29-Sep-2016 11:45 Appointment; Provider: Stefan Streeter M.D. On 16-Sep-2016 13:30 Appointment; Provider: Ry Maurer M.D. On 02-Sep-2016 14:45 Appointment; Provider: Krunal Lennon M.D. On 02-Sep-2016 14:15 Interventions Provided Labs/Procedures/Imaging* HEMOGRAM 7305; To be Done: 02 Sep 2016 * RENAL PROFILE 1240; To be Done: 02 Sep 2016 Instructions Name Dates [...]
--- OUTSIDE RECORDS SUMMARY | 2017-02-26 16:37 | XMS REPORT ---
Author Author GENERATED, SYSTEM Organization Unknown Address Unknown Phone Unavailable Care Team Providers Care Marble Polisher Hand Name Role Phone MD CORTEZ, [facility] [phone] Reason For Visit Reason for Visit from 12/28/2015 10:13 AM:* Pt Stated Reason for Adm : IVIG infusion Chief Complaint D83.8 Social History Functional Status Functional Status from 01/24/2016 10:05 AM:* LOC : Alert * Oriented To : Person,Place,Time,Event Functional Status from 01/10/2016 10:14 AM:* LOC : Alert * Oriented To : Person,Place,Time,Event Functional Status from 12/28/2015 10:13 AM:* LOC : Alert * Oriented To : Person,Place,Time,Event Vital Signs Hospital Vital Signs from 01/24/2016 1:48 PM:* Height : 5/1 ft,in * Pulse : 60 * Respirations : 16 * BP : 127/62 Hospital Vital Signs from 01/24/2016 1:33 PM:* Height : 5/1 ft,in * Pulse : 60 * Respirations : 16 * BP : 116/62 Hospital Vital Signs from 01/24/2016 1:18 PM:* Height : 5/1 ft,in * Pulse : 59 * Respirations : 16 * BP : 108/59 Hospital Vital Signs from 01/24/2016 1:03 PM:* Height : 5/1 ft,in * Pulse : 59 * Respirations : 16 * BP : 142/48 Hospital Vital Signs from 01/24/2016 12:48 PM:* Height : 5/1 ft,in * Pulse : 59 * Respirations : 16 * BP : 177/55 Hospital Vital Signs from 01/24/2016 12:33 PM:* Height : 5/1 ft,in * Pulse : 59 * Respirations : 16 * BP : 150/53 Hospital Vital Signs from 01/24/2016 12:18 PM:* Height : 5/1 ft,in * Pulse : 56 * Respirations : 16 * BP : 154/50 Hospital Vital Signs from 01/24/2016 12:03 PM:* Height : 5/1 ft,in * Pulse : 61 * Respirations : 16 * BP : 151/89 Hospital Vital Signs from 01/24/2016 11:48 AM:* Height : 5/1 ft,in * Pulse : 60 * Respirations : 16 * BP : 157/75 Hospital Vital Signs from 01/24/2016 11:33 AM:* Height : 5/1 ft,in * Pulse : 60 * Respirations : 16 * BP : 138/66 Hospital Vital Signs from 01/24/2016 11:18 AM:* Height : 5/1 ft,in * Pulse : 61 * Respirations : 16 * BP : 146/78 Hospital Vital Signs from 01/24/2016 11:03 AM:* Height : 5/1 ft,in * Pulse : 60 * Respirations : 16 * BP : 140/72 Hospital Vital Signs from 01/24/2016 10:05 AM:* Height : 5/1 ft,in * Temperature : 97.0 F * Pulse : 60 * Respirations : 18 * BP : 146/72 Hospital Vital Signs from 01/10/2016 1:45 PM:* Height : 5/1 ft,in * Pulse : 60 * Respirations : 16 * BP : 136/79 Hospital Vital Signs from 01/10/2016 1:30 PM:* Height : 5/1 ft,in * Pulse : 59 * Respirations : 16 * BP : 123/67 Hospital Vital Signs from 01/10/2016 1:15 PM:* Height : 5/1 ft,in * Pulse : 59 * Respirations : 16 * BP : 126/70 Hospital Vital Signs from 01/10/2016 1:00 PM:* Height : 5/1 ft,in * Pulse : 59 * Respirations : 16 * BP : 126/59 Hospital Vital Signs from 01/10/2016 12:30 PM:* Height : 5/1 ft,in * Pulse : 59 * Respirations : 16 * BP : 150/74 Hospital Vital Signs from 01/10/2016 12:15 PM:* Height : 5/1 ft,in * Pulse : 59 * Respirations : 16 * BP : 149/67 Hospital Vital Signs from 01/10/2016 12:00 PM:* Height : 5/1 ft,in * Pulse : 59 * Respirations : 16 * BP : 134/75 Hospital Vital Signs from 01/10/2016 11:45 AM:* Height : 5/1 ft,in * Pulse : 55 * Respirations : 16 * BP : 140/73 Hospital Vital Signs from 01/10/2016 11:30 AM:* Height : 5/1 ft,in * Pulse : 60 * Respirations : 16 * BP : 133/66 Hospital Vital Signs from 01/10/2016 11:15 AM:* Height : 5/1 ft,in * Pulse : 60 * Respirations : 16 * BP : 133/76 Hospital Vital Signs from 01/10/2016 11:00 AM:* Height : 5/1 ft,in * Pulse : 60 * Respirations : 16 * BP : 126/61 Hospital Vital Signs from 01/10/2016 10:14 AM:* Height : 5/1 ft,in * Temperature : 97.5 F * Pulse : 61 * Respirations : 14 * BP : 119/65 Hospital Vital Signs from 12/28/2015 2:00 PM:* Height : 5/1 ft,in * Pulse : 59 * Respirations : 18 * BP : 125/73 Hospital Vital Signs from 12/28/2015 1:45 PM:* Height : 5/1 ft,in * Pulse : 60 * Respirations : 18 * BP : 132/65 Hospital Vital Signs from 12/28/2015 1:30 PM:* Height : 5/1 ft,in * Pulse : 59 * Respirations : 18 * BP : 133/69 Hospital Vital Signs from 12/28/2015 1:15 PM:* Height : 5/1 ft,in * Pulse : 60 * Respirations : 18 * BP : 143/66 Hospital Vital Signs from 12/28/2015 1:00 PM:* Height : 5/1 ft,in * Pulse : 61 * Respirations : 18 * BP : 149/70 Hospital Vital Signs from 12/28/2015 12:30 PM:* Height : 5/1 ft,in * Pulse : 59 * Respirations : 18 * BP : 146/80 Hospital Vital Signs from 12/28/2015 12:15 PM:* Height : 5/1 ft,in * Pulse : 60 * Respirations : 18 * BP : 141/73 Hospital Vital Signs from 12/28/2015 12:00 PM:* Height : 5/1 ft,in * Pulse : 58 * Respirations : 18 * BP : 154/73 Hospital Vital Signs from 12/28/2015 11:45 AM:* Height : 5/1 ft,in * Pulse : 59 * Respirations : 18 * BP : 132/76 Hospital Vital Signs from 12/28/2015 11:30 AM:* Height : 5/1 ft,in * Pulse : 60 * Respirations : 18 * BP : 140/71 Hospital Vital Signs from 12/28/2015 11:15 AM:* Height : 5/1 ft,in * Pulse : 60 * Respirations : 18 * BP : 135/71 Hospital Vital Signs from 12/28/2015 10:24 AM:* Height : 5/1 ft,in * Temperature : 98.0 F * Pulse : 67 * Respirations : 18 * BP : 135/73 Hospital Vital Signs from 12/28/2015 10:13 AM:* Weight : 120/ lbs,oz * Height : 5/1 ft,in Results Chemistry from 01/24/2016 10:26 AMCREATININE 1.21 MG/DL H (0.55-1.02 MG/DL) *GFR EST NON AFR CHINESE 41 ML/MIN *GFRA EST AFR AMER 47 ML/MIN Chemistry from 01/10/2016 10:20 AMCREATININE 1.18 MG/DL H (0.55-1.02 MG/DL) *GFR EST NON AFR CHINESE 42 ML/MIN *GFRA EST AFR AMER 49 ML/MIN Chemistry from 12/28/2015 10:25 AMCREATININE 1.26 MG/DL H (0.55-1.02 MG/DL) *GFR EST NON AFR CHINESE 39 ML/MIN *GFRA EST AFR AMER 45 ML/MIN Problems Encounter Diagnosis No relevant problems [...]
--- OUTSIDE RECORDS SUMMARY | 2017-02-26 16:37 | XMS REPORT ---
Author Author Raphael Mcduffie R Organization Unknown Address [address] [place], [place] [id number] Phone Care Team Providers Care Facilities Administrator Name Role Phone Reta Lim PP Unavailable Unavailable Reason for Referral No Reason for Referral was given. History of Present Illness No HPI available. 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); (Active) * Clostridium Difficile Colitis (008.45); (Active) * Anxiety (Symptom) (300.00); (Active) * Spleen Enlargement (789.2); (Active) * Earache (Symptom) (388.70); (Active) * Headache (784.0); (Active) * Hypothyroidism (244.9); (Active) * Gout (274.9); (Active) * Normal Examination (V70.0); (Active) * Tingling (Paresthesia) (782.0); (Active) * Peripheral Neuropathy (356.9); (Active) * Depression (311); (Active) * Lumbar Radiculopathy (724.4); (Active) * Peripheral Vascular Disease (443.9); (Active) * Hypokalemia (276.8); (Active) * Insomnia (780.52); (Active) * Hypertension (401.9); (Active) * Arm Pain Aching (Active) * Abdominal Pain In The Right Upper Belly (RUQ) (789.01); (Active) * Edema (782.3); (Active) * Non-Hodgkin's Lymphoma (202.80); (Active) * Abdominal Pain (789.00); (Active) * Diarrhea (Symptom) (787.91); (Active) * Visit For: Preoperative Exam (V72.84); (Active) * Pacemaker - Pulse Generator Replacement (Active) * 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) * Anemia (285.9); (Active) * Acute Bronchitis (466.0); (Active) * Urinary Tract Infection (599.0); (Active) * Chronic Kidney Disease, Stage 3 (585.3); (Active) * Hyperlipidemia (272.4); (Active) * Sick Sinus Syndrome (427.81); (Active) * Congestive Heart Failure (428.0); (Active) * Chronic Obstructive Pulmonary Disease (496); (Active) Medication * Simvastatin 40 MG Oral Tablet; TAKE ONE TABLET BY MOUTH EVERY DAY DIRECTED ; Start Date: 01/11/2010; End Date: (Active) * Multi-Day Vitamins Oral Tablet; I po qd; Start Date: 06/07/2009 (Active) * Niferex-150 Forte 50-100 MG CAPS; 1 capsule qd; Start Date: 02/26/2009 (Active ) * Aspirin 81 MG Oral Tablet; TAKE 1 TABLET DAILY.; Start Date: 08/31/2009 ( Active) * Furosemide 40 MG Oral Tablet; TAKE 1 TABLET DAILY.; Start Date: 06/07/2009; End Date: (Active) * Poly-Iron 150 Forte 150-25-1 MG-MCG-MG Oral Capsule; TAKE 1 CAPSULE BY MOUTH EVERY DAILY; Start Date: 07/19/2009; End Date: (Active) * ROPINIRole HCl 1 MG Oral Tablet; TAKE ONE TABLET BY MOUTH EVERY NIGHT AT BEDTIME; Start Date: 08/31/2009; End Date: (Active) * Potassium Chloride Summer ER 10 MEQ Oral Tablet Extended Release; TAKE 2 TABLETS BY MOUTH TWO TIMES A DAY; Start Date: 07/27/2009; End Date: ( Active) * Estropipate 0.75 MG Oral Tablet; TAKE ONE TABLET BY MOUTH EVERY DAY DIRECTED; Start Date: 12/07/2009; End Date: (Active) * ClonazePAM 1 MG Oral Tablet; TAKE ONE TABLET BY MOUTH THREE TIMES DAILY NEEDED; Start Date: 01/25/2010 (Active) * Propranolol HCl 40 MG Oral Tablet; Take 1 tablet every 12 hours; Start Date: 04/05/2010; End Date: (Active) * Bumetanide 2 MG Oral Tablet; TAKE 1 TABLET Every other day; Start Date: 2009 (Active) * Brovana 15 MCG/2ML Inhalation Nebulization Solution; USE ONE VIAL VIA NEBULIZER TWICE A DAY; Start Date: 11/23/2012; End Date: (Active) * Budesonide 0.5 MG/2ML Inhalation Suspension; Use one vial in nebulizer twice daily; Start Date: 11/23/2012; End Date: (Active) * Oxygen; 2 LPM 24 HOURS A DAY MAY TITRATE UP FOR DYSPNEA; Start Date: 2011 (Active) * Levocetirizine Dihydrochloride 5 MG Oral Tablet; Take one tablet daily; Start Date: 12/03/2012; End Date: (Active) * Ipratropium-Albuterol 0.5-2.5 (3) MG/3ML Inhalation Solution; Use one vial in nebulizer twice daily; Start Date: 12/06/2012; End Date: (Active) * Cymbalta 30 MG Oral Capsule Delayed Release Particles; Take one capsule by mouth daily; Start Date: 07/22/2010; End Date: (Active) * PredniSONE 2.5 MG Oral Tablet; TAKE 1 TABLET DAILY DIRECTED (START AFTER THE 5MG TABLETS; Start Date: 11/15/2012; End Date: (Active) * Ipratropium Fitzpatrick 0.06 % Nasal Solution; 1-2 sprays every 6-8 hours prn; Start Date: 03/09/2013; End Date: (Active) * Pantoprazole Sodium 40 MG Oral Tablet Delayed Release; TAKE ONE TABLET BY MOUTH EVERY DAY DIRECTED; Start Date: 08/30/2010; End Date: ( Active) Allergies and Adverse Reactions * Ceftin TABS (Active) * Cefuroxime Axetil TABS (Active) Past Medical History * History of Headache (784.0); (Resolved) * History of Gastric Ulcer (531.90); (Resolved) * History of Bladder Disorders (596.9); (Resolved) * History of Poliomyelitis (V12.02); (Resolved) * History of Herpes Zoster (Shingles) (053.9); (Resolved) * History of Monitor Pacemaker (V45.01); (Resolved) * History of Glaucoma (365.9); (Resolved) * History of Macular Degeneration (362.50); (Resolved) Procedures Procedure Procedure Date Date Completed Status Splenectomy - - Active Hysterectomy - - Active Knee Surgery - - Active Heart Valve Replacement - - Active Rotator Cuff Repair - - Active Gastroscopy With Biopsy 12/24/2010 - Active ERCP With Endoscopic Sphincterotomy - - Active ERCP With Balloon Dilation Of Ampulla/Biliary/Pancr Duct(S) 04/30/2011 - Active Aortic Valve Replacement - - Active Implantable Cardioverter-Defibrillator - - Active Immunization * Influenza (Lot #: [id number]) - Administered on: 08/02/2010 * Influenza (Lot #: [id number]) - Administered on: 08/24/2012 * Pneumo (Pneumovax) (Lot #: [id number]) - Administered on: 08/24/2012 Family History * Maternal history of Heart Disease (V17.49); (Active) * Paternal history of Stroke Syndrome (V17.1); (Active) * Fraternal history of Heart Disease (V17.49); (Active) * Fraternal history of Cancer (Active) * Fraternal history of Stroke Syndrome (V17.1); (Active) * Son's history of Epilepsy (Active) * Maternal history of Hypertension (V17.49); (Active) * Sororal history of Hypertension (V17.49); (Active) * Sororal history of Hypertension (V17.49); (Active) * Sororal history of Anemia (V18.2); (Active) Social History * Racial Background (___ %) (Active) * Never A Smoker (Active) * Caffeine Use (Active) * No History of Alcohol Use (Active) * Marital History - (Active) * Living Homebound (Active) * Retired From Work (Active) Vital Signs Date Description Test Result 04 Apr 2013 03:54 PM recorded by: Jojo Pereira Weight 145 lb BP Systolic 124 mm[Hg] BP Diastolic 82 mm[Hg] Body Surface Area Calculated 1.69 Body Mass Index Calculated 25.69 Results Date Description Test Name Value Reference Interpretation Status 01 Apr 2013 12:20 PM BASIC METABOLIC PROFILE 1210 BUN 29 mg/dL 7-18 H Active SODIUM 138 mmol/L 133-144 Active EST GFR, >60 ml/min >60 Active CHLORIDE 101 mmol/L 98-110 Active CREATININE, SERUM 1.13 mg/dL 0.43-1.13 Active ANION GAP 6 mmol/L 6-16 Active BUN:CREATININE RATIO 26 Active POTASSIUM 3.6 mmol/L 3.5-5.1 Active CALCIUM 9.5 mg/dL 8.5-10.1 Active EST GFR, NON-AFR YEMENI 46 ml/min >60 L Active CARBON DIOXIDE 31 mmol/L 23-33 Active GLUCOSE 93 mg/dL 70-100 Active Treatment Plan * Urinalysis w/ Microscopic 8006 09/22/2011 Routine * Urine Culture PRN 8000 12/09/2011 Routine * Urine Culture PRN 8000 03/15/2012 Routine * Urine Culture PRN 8000 06/17/2012 Routine * LIPID PROFILE 1184 08/06/2012 Routine * Comprehensive Metabolic Panel 1212 08/06/2012 Routine * LIPID PROFILE 1184 08/27/2012 Routine * LIPID PROFILE 1184 09/02/2012 Routine * RENAL PROFILE 1240 05/31/2013 Routine * CBC w/ Auto Diff 7150 05/31/2013 Routine * LIPID PROFILE 1184 06/27/2013 Routine * CP Echo 12/28/2012 Routine * XRay CHEST-PA & LAT 03/09/2013 Routine Advance Directives * No Advance Directives available. Encounters * Appointment 04/04/2013 * ENDO , Provider: Storm Lopez, Status: Anthony , Time: 8:15 AM 04/08/2013 * RTNPT , Provider: Chip Barrera, Status: Anthony , Time: 9:30 AM 04/18/2013 * RTNPT , Provider: Saji Hector, Status: Anthony , Time: 1:15 PM 2012 * PULMRTN , Provider: Ferdinand Aviles, Status: Anthony , Time: 2:30 PM 2012 * RTNPT , Provider: Reji Tariq, Status: Anthony , Time: 1:45 PM 2012
--- OUTSIDE RECORDS SUMMARY | 2017-02-26 16:37 | XMS REPORT | Summary of Care ---
Author Author Chapito Muro Organization Unknown Address [address] [place], [place] [id number] Phone Unavailable Care Team Providers Care Stock Repairer Name Role Phone Cece Streeter M.D. Unavailable [...] Status: Active Hyperkalemia (276.7, E87.5) Status: Active Coronary arteriosclerosis (414.00, I25.10) Status: Active Essential hypertension (401.9, I10) Status: Active Hypercholesteremia (272.0, E78.0) Status: Active Congestive heart failure (428.0, I50.9) Status: Active Mixed incontinence (788.33, N39.46) Status: Active Medications Name Dates Details Multi-Day [...] 3 Chapito Muro * Start 19-Jan-2014 Active Furosemide 40 MG Oral Tablet take one tablet in the morning and 1/2 tablet in the afternoon * Quantity: 45 Refills: 5 Chapito Muro * Start 07-Mar-2015 Active Alendronate Sodium 70 MG Oral Tablet [...] Stefan Streeter M.D. * Start 01-Nov-2015 Active Allopurinol 300 MG Oral Tablet TAKE 1 TABLET DAILY. * Quantity: 30 Refills: 3 BhaskarChapito * Start 15-Aug-2014 Active DULoxetine HCl - 60 MG Oral Capsule Delayed Release Particles TAKE 1 CAPSULE AT BEDTIME. * Quantity: 30 Refills: 3 BhaskarElliey * Start 10-Oct-2013 Active Pantoprazole Sodium 40 MG Oral Tablet Delayed Release take 1 tab daily * Quantity: 30 Refills: 5 BhaskarNewChapito * Start 15-Aug-2014 Active Acyclovir 400 MG Oral Tablet TAKE 1 TABLET TWICE DAILY. * Quantity: 60 Refills: 3 EdtomaChapito willson * Start 15-Aug-2014 Active Propranolol HCl - 40 MG Oral Tablet take 11/2 tablets twice daily * Quantity: 90 Refills: 1 Chapito Muro * Start 07-Mar-2015 Active LORazepam 0.5 MG Oral Tablet TAKE 1 TABLET 3 TIMES DAILY NEEDED. MAY FILL ON OR AFTER 05-09-16 * Quantity: 90 Refills: 0 BhaskarNewChapito * Start 15-Aug-2014 Active BusPIRone HCl - 7.5 MG Oral Tablet TAKE ONE TAB BY MOUT TWICE DAILY * Quantity: 60 Refills: 0 BhaskarNewChapito * Start Active Allergies and Adverse Reactions Name Dates [...] Replacement CBC w/ Auto Diff 7150 Ordered: RENAL PROFILE 1240 Ordered: Immunization Name Dates Details Influenza Lot #: [id number] on: 02-Aug-2010 Influenza Lot #: [id number] on: 24-Aug-2012 Pneumo (Pneumovax) Lot #: [id number] on: 24-Aug-2012 Fluzone High-Dose 0.5 ML Intramuscular Suspension Prefilled Syringe Lot #: [id number] on: 25-Jul-2015 Tdap (Adacel) Lot #: [id number] on: 05-Nov-2015 Family History Name Dates Details [...] smoker Vital Signs Date Test Result Details 13:49 BP Systolic 134 mm[Hg] Status: Comments: Location: ; Position: BP Diastolic 78 mm[Hg] Status: Comments: Location: ; Position: Heart Rate 61 /min Status: Comments: Location: ; Height 63 in Status: Weight 127.375 lb Status: Physical Findings 96 Status: Comments: O2 Saturation FiO2 flow rate 2.5 L/min Status: Body Mass Index Calculated 22.56 kg/m2 Status: Body Surface Area Calculated 1.6 m2 Status: Results Date Description Value Details 13:14 CBC w/ Auto Diff 7150 Comments: ORDER IN STANDING ORDER BOOK WBC 11.1 K/uL (Above high threshold) Range: 4.5-11.0 RBC 2.91 mil/uL (Below low threshold) Range: 3.60-5.00 HGB 10.0 g/dL (Below low threshold) Range: 12.0-16.0 HCT 32.1 % (Below low threshold) Range: 36.0-48.0 MCV 110.5 fL (Above high threshold) Range: 80.0-99.0 MCH 34.5 pg (Above high threshold) Range: 27.3-32.5 MCHC 31.3 % (Below low threshold) Range: 32.0-36.0 RDW 16.0 % (Above high threshold) Range: 11.6-14.8 PLATELETS 259 K/uL Range: 150-400 MPV 9.2 fL Range: 6.0-11.0 %NEUTRO 64.2 % Range: 37.0-80.0 %LYMPHS 22.3 % Range: 13.0-50.0 %MONO 4.7 % Range: 0.0-12.0 %EOS 6.1 % Range: 0.0-7.0 %BASO 0.5 % Range: 0.0-2.5 %HALIMA 2.2 % Range: 0.0-5.0 NEUTRO 7.1 K/uL (Above high threshold) Range: 2.0-6.9 LYMPHS 2.5 K/uL Range: 0.6-3.4 MONOS 0.5 K/uL Range: 0.0-0.9 EOS 0.7 K/uL Range: 0.0-0.7 BASO 0.1 K/uL Range: 0.0-0.2 13:22 Comprehensive Metabolic Panel 1212 SODIUM 139 mmol/L Range: 133-144 POTASSIUM 3.5 mmol/L Range: 3.5-5.1 CHLORIDE 98 mmol/L Range: 98-110 CARBON DIOXIDE 37.0 mmol/L (Above high threshold) Range: 23.0-33.0 ANION GAP 4 mmol/L (Below low threshold) Range: 6-16 BUN 29 mg/dL (Above high threshold) Range: 7-18 CREATININE, SERUM 1.59 mg/dL (Above high threshold) Range: 0.55-1.02 Comments: Please note new reference ranges effective 2015.----- BUN:CREATININE RATIO 18 EST GFR, 37 ml/min (Below low threshold) Range: >60 EST GFR, NON-AFR [place] 31 ml/min (Below low threshold) Range: >60 Comments: EST GFR is reported in ml/min per 1.73 m2 of body surface area. For -Syrian, please multiple result by 1.2.----- GLUCOSE 111 mg/dL (Above high threshold) Range: 70-100 ALK PHOSPHATASE 96 U/L Range: 46-116 TOTAL BILIRUBIN 0.20 mg/dL Range: 0.20-1.00 AST 27 U/L Range: 8-35 ALT 15 U/L Range: 14-59 Comments: Please note new reference ranges. Effective 01/04/2015.----- ALBUMIN 3.1 g/dL (Below low threshold) Range: 3.4-5.0 TOTAL PROTEIN 6.8 g/dL Range: 6.4-8.2 A/G RATIO 0.8 units (Below low threshold) Range: 1.0-1.8 CALCIUM 8.8 mg/dL Range: 8.5-10.1 13:22 LDH 1140 LDH 368 U/L (Above high threshold) Range: 81-234 11:11 CBC w/ Auto Diff 7150 WBC 11.4 K/uL (Above high threshold) Range: 4.5-11.0 RBC 3.09 mil/uL (Below low threshold) Range: 3.60-5.00 HGB 10.3 g/dL (Below low threshold) Range: 12.0-16.0 HCT 33.7 % (Below low threshold) Range: 36.0-48.0 MCV 109.1 fL (Above high threshold) Range: 80.0-99.0 MCH 33.3 pg (Above high threshold) Range: 27.3-32.5 MCHC 30.5 % (Below low threshold) Range: 32.0-36.0 RDW 15.3 % (Above high threshold) Range: 11.6-14.8 PLATELETS 234 K/uL Range: 150-400 MPV 8.6 fL Range: 6.0-11.0 %NEUTRO 60.8 % Range: 37.0-80.0 %LYMPHS 24.8 % Range: 13.0-50.0 %MONO 4.5 % Range: 0.0-12.0 %EOS 6.9 % Range: 0.0-7.0 %BASO 0.5 % Range: 0.0-2.5 %HALIMA 2.4 % Range: 0.0-5.0 NEUTRO 6.9 K/uL Range: 2.0-6.9 LYMPHS 2.8 K/uL Range: 0.6-3.4 MONOS 0.5 K/uL Range: 0.0-0.9 EOS 0.8 K/uL (Above high threshold) Range: 0.0-0.7 BASO 0.1 K/uL Range: 0.0-0.2 11:22 Comprehensive Metabolic Panel 1212 SODIUM 142 mmol/L Range: 133-144 POTASSIUM 3.6 mmol/L Range: 3.5-5.1 CHLORIDE 99 mmol/L Range: 98-110 CARBON DIOXIDE 40.5 mmol/L (Above high threshold) Range: 23.0-33.0 ANION GAP 3 mmol/L (Below low threshold) Range: 6-16 BUN 25 mg/dL (Above high threshold) Range: 7-18 CREATININE, SERUM 1.35 mg/dL (Above high threshold) Range: 0.55-1.02 Comments: Please note new reference ranges effective 2015.----- BUN:CREATININE RATIO 19 EST GFR, 45 ml/min (Below low threshold) Range: >60 EST GFR, NON-AFR [place] 37 ml/min (Below low threshold) Range: >60 Comments: EST GFR is reported in ml/min per 1.73 m2 of body surface area. For -Syrian, please multiple result by 1.2.----- GLUCOSE 97 mg/dL Range: 70-100 ALK PHOSPHATASE 85 U/L Range: 46-116 TOTAL BILIRUBIN 0.30 mg/dL Range: 0.20-1.00 AST 27 U/L Range: 8-35 ALT 14 U/L Range: 14-59 Comments: Please note new reference ranges. Effective 01/04/2015.----- ALBUMIN 3.1 g/dL (Below low threshold) Range: 3.4-5.0 TOTAL PROTEIN 6.8 g/dL Range: 6.4-8.2 A/G RATIO 0.8 units (Below low threshold) Range: 1.0-1.8 CALCIUM 9.2 mg/dL Range: 8.5-10.1 11:22 LDH 1140 LDH 364 U/L (Above high threshold) Range: 81-234 14:02 CBC w/ Auto Diff 7150 Comments: STANDING ORDER IN BOOK WBC 12.2 K/uL (Above high threshold) Range: 4.5-11.0 RBC 3.04 mil/uL (Below low threshold) Range: 3.60-5.00 HGB 10.4 g/dL (Below low threshold) Range: 12.0-16.0 HCT 33.5 % (Below low threshold) Range: 36.0-48.0 MCV 110.0 fL (Above high threshold) Range: 80.0-99.0 MCH 34.0 pg (Above high threshold) Range: 27.3-32.5 MCHC 30.9 % (Below low threshold) Range: 32.0-36.0 RDW 15.4 % (Above high threshold) Range: 11.6-14.8 PLATELETS 222 K/uL Range: 150-400 MPV 8.7 fL Range: 6.0-11.0 %NEUTRO 62.8 % Range: 37.0-80.0 %LYMPHS 24.7 % Range: 13.0-50.0 %MONO 3.8 % Range: 0.0-12.0 %EOS 5.8 % Range: 0.0-7.0 %BASO 0.6 % Range: 0.0-2.5 %HALIMA 2.2 % Range: 0.0-5.0 NEUTRO 7.6 K/uL (Above high threshold) Range: 2.0-6.9 LYMPHS 3.0 K/uL Range: 0.6-3.4 MONOS 0.5 K/uL Range: 0.0-0.9 EOS 0.7 K/uL Range: 0.0-0.7 BASO 0.1 K/uL Range: 0.0-0.2 14:09 Comprehensive Metabolic Panel 1212 SODIUM 143 mmol/L Range: 133-144 POTASSIUM 4.0 mmol/L Range: 3.5-5.1 CHLORIDE 102 mmol/L Range: 98-110 CARBON DIOXIDE 37.3 mmol/L (Above high threshold) Range: 23.0-33.0 ANION GAP 4 mmol/L (Below low threshold) Range: 6-16 BUN 28 mg/dL (Above high threshold) Range: 7-18 CREATININE, SERUM 1.39 mg/dL (Above high threshold) Range: 0.55-1.02 Comments: Please note new reference ranges effective 2015.----- BUN:CREATININE RATIO 20 EST GFR, 44 ml/min (Below low threshold) Range: >60 EST GFR, NON-AFR [place] 36 ml/min (Below low threshold) Range: >60 Comments: EST GFR is reported in ml/min per 1.73 m2 of body surface area. For -Syrian, please multiple result by 1.2.----- GLUCOSE 104 mg/dL (Above high threshold) Range: 70-100 ALK PHOSPHATASE 91 U/L Range: 46-116 TOTAL BILIRUBIN 0.30 mg/dL Range: 0.20-1.00 AST 25 U/L Range: 8-35 ALT 14 U/L Range: 14-59 Comments: Please note new reference ranges. Effective 01/04/2015.----- ALBUMIN 3.0 g/dL (Below low threshold) Range: 3.4-5.0 TOTAL PROTEIN 6.9 g/dL Range: 6.4-8.2 A/G RATIO 0.8 units (Below low threshold) Range: 1.0-1.8 CALCIUM 9.2 mg/dL Range: 8.5-10.1 14:09 LDH 1140 LDH 370 U/L (Above high threshold) Range: 81-234 Plan of Care Name Dates Details Planned Observations Planned Goals not documented Planned Encounters Appointment; Provider: Chapito Muro On 25-Aug-2016 15:30 Appointment; Provider: Krunal Lennon M.D. On 14-Jul-2016 15:15 Appointment; Provider: Bruce Saunders M.D. On 09-Jun-2016 08:30 Appointment; Provider: Stefan Streeter M.D. On 29-May-2016 14:15 Instructions Name Dates Details Instructions not [...]
--- OUTSIDE RECORDS SUMMARY | 2017-02-26 16:38 | XMS REPORT ---
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 Social History Functional Status Functional Status from 12/14/2015 10:38 AM:* LOC : Alert * Oriented To : Person,Place,Time,Event Functional Status from 11/30/2015 10:50 AM:* LOC : Alert * Oriented To : Person,Place,Time Vital Signs Hospital Vital Signs from 12/14/2015 2:28 PM:* Height : 5/0 ft,in * Pulse : 60 * BP : 119/64 Hospital Vital Signs from 12/14/2015 2:12 PM:* Height : 5/0 ft,in * Pulse : 60 * BP : 130/64 Hospital Vital Signs from 12/14/2015 1:56 PM:* Height : 5/0 ft,in * Pulse : 59 * BP : 132/72 Hospital Vital Signs from 12/14/2015 1:41 PM:* Height : 5/0 ft,in * Pulse : 60 * BP : 130/67 Hospital Vital Signs from 12/14/2015 1:25 PM:* Height : 5/0 ft,in * Pulse : 61 * Respirations : 18 * BP : 129/65 Hospital Vital Signs from 12/14/2015 1:10 PM:* Height : 5/0 ft,in * Pulse : 60 * Respirations : 18 * BP : 126/78 Hospital Vital Signs from 12/14/2015 12:40 PM:* Height : 5/0 ft,in * Pulse : 60 * Respirations : 18 * BP : 145/84 Hospital Vital Signs from 12/14/2015 12:25 PM:* Height : 5/0 ft,in * Pulse : 62 * Respirations : 18 * BP : 161/83 Hospital Vital Signs from 12/14/2015 12:10 PM:* Height : 5/0 ft,in * Pulse : 59 * Respirations : 18 * BP : 149/82 Hospital Vital Signs from 12/14/2015 11:55 AM:* Height : 5/0 ft,in * Pulse : 59 * Respirations : 18 * BP : 147/83 Hospital Vital Signs from 12/14/2015 11:40 AM:* Height : 5/0 ft,in * Pulse : 59 * Respirations : 18 * BP : 155/85 Hospital Vital Signs from 12/14/2015 11:25 AM:* Height : 5/0 ft,in * Temperature : 97.7 F * Pulse : 60 * Respirations : 18 * BP : 176/80 Hospital Vital Signs from 11/30/2015 2:25 PM:* Height : 5/0 ft,in * Pulse : 59 * BP : 130/67 Hospital Vital Signs from 11/30/2015 2:10 PM:* Height : 5/0 ft,in * Pulse : 59 * BP : 138/69 Hospital Vital Signs from 11/30/2015 1:55 PM:* Height : 5/0 ft,in * Pulse : 60 * BP : 143/65 Hospital Vital Signs from 11/30/2015 1:49 PM:* Height : 5/0 ft,in * Pulse : 62 * BP : 148/59 Hospital Vital Signs from 11/30/2015 1:25 PM:* Height : 5/0 ft,in * Pulse : 59 * BP : 136/75 Hospital Vital Signs from 11/30/2015 1:10 PM:* Height : 5/0 ft,in * Pulse : 59 * BP : 146/77 Hospital Vital Signs from 11/30/2015 12:55 PM:* Height : 5/0 ft,in * Pulse : 59 * BP : 155/79 Hospital Vital Signs from 11/30/2015 12:40 PM:* Height : 5/0 ft,in * Pulse : 59 * BP : 144/79 Hospital Vital Signs from 11/30/2015 12:25 PM:* Height : 5/0 ft,in * Pulse : 58 * BP : 151/79 Hospital Vital Signs from 11/30/2015 11:55 AM:* Height : 5/0 ft,in * Pulse : 62 * BP : 147/73 Hospital Vital Signs from 11/30/2015 11:43 AM:* Height : 5/0 ft,in * Temperature : 97.6 F * Pulse : 62 * Respirations : 18 * BP : 133/72 Results Chemistry from 12/14/2015 10:47 AMCREATININE 1.35 MG/DL H (0.55-1.02 MG/DL) *GFR EST NON AFR THAI 36 ML/MIN *GFRA EST AFR AMER 42 ML/MIN Chemistry from 11/30/2015 11:05 AMCREATININE 1.17 MG/DL H (0.55-1.02 MG/DL) *GFR EST NON AFR THAI 43 ML/MIN *GFRA EST AFR AMER 49 ML/MIN Problems Encounter [...]
--- OUTSIDE RECORDS SUMMARY | 2017-02-26 16:38 | XMS REPORT | Summary of Care ---
Author Author Krunal Lennon M.D. Unknown Address Unknown Phone Unavailable Care Team Providers Care Candle Making Supervisor Name Role Phone Ferdinand Hammonds, Cece [...] Immunization Name Dates Details Influenza Lot #: [id number] Administered on:02-Aug-2010 Influenza Lot #: [id number] Administered on:24-Aug-2012 Pneumo (Pneumovax) Lot #: [id number] Administered on:24-Aug-2012 Fluzone High-Dose 0.5 ML Intramuscular Suspension Prefilled Syringe Lot #: [id number] Administered on:25-Jul-2015 Tdap (Adacel) Lot #: [id number] Administered on:05-Nov-2015 Family History natural son* Name [...] high threshold) Range: 11.6-14.8 PLATELETS 259 K/uL (Better) Range: 150-400 MPV 9.2 fL (Better) Range: 6.0-11.0 %NEUTRO 64.2 % (Better) Range: 37.0-80.0 %LYMPHS 22.3 % (Better) Range: 13.0-50.0 %MONO 4.7 % (Better) Range: 0.0-12.0 %EOS 6.1 % (Better) Range: 0.0-7.0 %BASO 0.5 % (Better) Range: 0.0-2.5 %HALIMA 2.2 % (Better) Range: 0.0-5.0 NEUTRO 7.1 K/uL (Above high threshold) Range: 2.0-6.9 LYMPHS 2.5 K/uL (Better) Range: 0.6-3.4 MONOS 0.5 K/uL (Better) Range: 0.0-0.9 EOS 0.7 K/uL (Better) Range: 0.0-0.7 BASO 0.1 K/uL (Better) Range: 0.0-0.2 13:22 Comprehensive Metabolic Panel 1212 SODIUM 139 mmol/L (Better) Range: 133-144 POTASSIUM 3.5 mmol/L (Better) Range: 3.5-5.1 CHLORIDE 98 mmol/L (Better) Range: 98-110 CARBON DIOXIDE 37.0 mmol/L (Above high threshold) Range: 23.0-33.0 ANION GAP 4 mmol/L (Below low threshold) Range: 6-16 BUN 29 mg/dL (Above high threshold) Range: 7-18 CREATININE, SERUM 1.59 mg/dL (Above high threshold) Range: 0.55-1.02 Comments: Please note new reference ranges effective 2015.----- BUN:CREATININE RATIO 18 (Better) EST GFR, 37 ml/min (Below low threshold) Range: >60 EST GFR, NON-AFR [place] 31 ml/min (Below low threshold) Range: >60 Comments: EST GFR is reported in ml/min per 1.73 m2 of body surface area. For -[place], please multiple result by 1.2.----- GLUCOSE 111 mg/dL (Above high threshold) Range: 70-100 ALK PHOSPHATASE 96 U/L (Better) Range: 46-116 TOTAL BILIRUBIN 0.20 mg/dL (Better) Range: 0.20-1.00 AST 27 U/L (Better) Range: 8-35 ALT 15 U/L (Better) Range: 14-59 Comments: Please note new reference ranges. Effective 01/04/2015.----- ALBUMIN 3.1 g/dL (Below low threshold) Range: 3.4-5.0 TOTAL PROTEIN 6.8 g/dL (Better) Range: 6.4-8.2 A/G RATIO 0.8 units (Below low threshold) Range: 1.0-1.8 CALCIUM 8.8 mg/dL (Better) Range: 8.5-10.1 13:22 LDH 1140 LDH 368 U/L (Above high threshold) Range: 81-234 Plan of Care Planned Observations* Name Dates Details Planned Goals not documented Goal Planned Encounters* Appointment; Provider: Krunal Lennon On 14-Jul-2016 15:15 * Appointment; Provider: Bruce Saunders On 09-Jun-2016 08:30 * Appointment; Provider: Chapito Muro On 13:30 * Appointment; Provider: Stefan Streeter On 11:45 * Appointment; Provider: Schedule Radiology On 20-Feb-2016 17:30 * Appointment; Provider: Schedule Radiology On 16-Jan-2016 13:40 * Appointment; Provider: Benigno Holt On 07-Jun-2012 14:00 * Appointment; Provider: Bruce Saunders On 11:45 * Appointment; Provider: Raphael Mcduffie On 11-Dec-2010 09:15 * Appointment; Provider: Mikal Felipe On 21-Mar-2008 13:15 Instructions * Instructions not documented Encounters Appointment; Ry Maurer Encounter Diagnosis: Problem not documented On 14:30 Appointment; Krunal Lennon Encounter Diagnosis: Problem not [...]
--- OUTSIDE RECORDS SUMMARY | 2017-02-26 16:38 | XMS REPORT ---
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 : Never Smoker Social History from 11/19/2016 5:21 PM:* Tobacco Use? : Never Smoker Functional Status Functional Status from 11/21/2016 7:58 AM:* LOC : Alert * Oriented To : Person,Place,Time,Event * Weight Bearing Status : Full * Assist Level : Partial * # Assists : 1 Functional Status from 11/20/2016 7:55 PM:* LOC : Alert * Oriented To : Person,Place,Time,Event * Weight Bearing Status : Full * Assist Level : Partial * # Assists : 1 Functional Status from 11/20/2016 8:45 AM:* LOC : Alert * Oriented To : Person,Place,Time,Event * Weight Bearing Status : Full * Assist Level : Partial * # Assists : 1 Functional Status from 11/19/2016 10:06 PM:* LOC : Alert * Oriented To : Person,Place,Time,Event * Weight Bearing Status : Full * Assist Level : Partial * # Assists : 1 Functional Status from 11/19/2016 5:21 PM:* LOC : Alert * Oriented To : Person,Place,Time * Weight Bearing Status : Full * Assist Level : Independent * # Assists : Independent Vital Signs Hospital Vital Signs from 11/21/2016 9:30 AM:* Height : 5/0 ft,in * Temperature : 98.0 F * Pulse : 60 * Respirations : 19 * BP : 150/69 Hospital Vital Signs from 11/21/2016 7:55 AM:* Pulse : 62 Hospital Vital Signs from 11/20/2016 10:08 PM:* Height : 5/0 ft,in * Temperature : 98.2 F * Pulse : 61 * Respirations : 18 * BP : 174/85 Hospital Vital Signs from 11/20/2016 6:51 PM:* Height : 5/0 ft,in * Temperature : 97.1 F * Pulse : 78 * Respirations : 19 * BP : 161/70 Hospital Vital Signs from 11/20/2016 3:30 PM:* Height : 5/0 ft,in * Temperature : 97.5 F * Pulse : 65 * Respirations : 18 * BP : 128/71 Hospital Vital Signs from 11/20/2016 10:36 AM:* Height : 5/0 ft,in * Temperature : 96.1 F * Pulse : 61 * Respirations : 19 * BP : 139/75 Hospital Vital Signs from 11/20/2016 9:21 AM:* Weight : 49.2/ kg * Height : 5/0 ft,in Hospital Vital Signs from 11/20/2016 8:43 AM:* Pulse : 64 Hospital Vital Signs from 11/20/2016 6:32 AM:* Height : 5/0 ft,in * Temperature : 98.0 F * Pulse : 60 * Respirations : 20 * BP : 172/84 Hospital Vital Signs from 11/20/2016 3:14 AM:* Weight : 49.2/ kg * Height : 5/0 ft,in * Temperature : 98.1 F * Pulse : 68 * Respirations : 20 * BP : 175/84 Hospital Vital Signs from 11/19/2016 11:26 PM:* Height : 5/0 ft,in * Temperature : 99.2 F * Pulse : 63 * Respirations : 18 * BP : 140/71 Hospital Vital Signs from 11/19/2016 7:10 PM:* Height : 5/0 ft,in * Temperature : 96.5 F * Pulse : 59 * Respirations : 20 * BP : 139/63 Hospital Vital Signs from 11/19/2016 5:21 PM:* Weight : 47.9/ kg * Height : 5/0 ft,in Hospital Vital Signs from 11/19/2016 5:05 PM:* Weight : 47.9/ kg * Height : 5/0 ft,in * Temperature : 97.8 F * Pulse : 64 * Respirations : 18 * BP : 181/83 Results Chemistry from 11/20/2016 5:38 AMSODIUM 144 MMOL/L (136-145 MMOL/L) POTASSIUM 5.0 MMOL/L (3.5-5.1 MMOL/L) CHLORIDE 109 MMOL/L H (98-107 MMOL/L) TCO2 30.3 MMOL/L (21.0-32.0 MMOL/L) *ANION GAP 4.7 MMOL/L L (8.0-16.0 MMOL/L) BUN 37 MG/DL H (7-18 MG/DL) CREATININE 1.19 MG/DL H (0.55-1.02 MG/DL) *BUN/CREATININE RATIO 31.1 H (9.1-17.0 ) GLUCOSE 88 MG/DL (65-99 MG/DL) *GFR EST NON AFR [place] 41 ML/MIN *GFR EST AFR AMER 48 [...] NATRIURETIC PROTEIN 418 PG/ML H (1-100 PG/ML) Hematology from 11/21/2016 8:56 AMWBC 10.6 X10e3/UL [...] FL H (7.4-10.4 FL) Problems Encounter Diagnosis * Anemia of Chronic Disease Status:Active. * Chronic Congestive Heart Failure Status:Active. * Chronic Kidney Disease, Stage 4 Status:Active. * Chronic Obstructive Lung Disease Status:Active. * Fall Risk Status:Active. * History of Hypertension Status:Active. * Mobility Impairment Status:Active. * Skin Integrity Impairment Risk Status:Active. [...] by [facility] Workflow upon Discharge , Status:Resolved. Encounters Encounter Diagnosis * Anemia of Chronic Disease Status:Active. * Chronic Congestive Heart Failure Status:Active. * Chronic Kidney Disease, Stage 4 Status:Active. * Chronic Obstructive Lung Disease Status:Active. * Fall Risk Status:Active. * History of Hypertension Status:Active. * Mobility Impairment Status:Active. * Skin Integrity Impairment Risk Status:Active. Plan of Care Follow-up Appointments from 11/21/2016 12:25 PM:* #1 Office appointment: : office will call with appointment Treatment Plan from 11/20/2016 10:15 AM:* Care Management Note : SW spoke with both patient and her daughter regarding possible needs at discharge. Both stated that patient was from the [facility] and planned to return there at discharge. No other needs or concerns at this time. SW will continue to assist as needed. Treatment Plan from 11/20/2016 8:51 AM:* Care Management Note : Outpatient observation status. Patient presented to the clinic yesterday due to diarrhea X 4 days with abdominal pain. Lab obtained showed hemoglobin 9.4. Nurse practitioner at the clinic reports the patient had a normal hemoglobin of 12 on November 03, 2016. The patient has a history of duodenal bleeding and is currently on iron replacement. Repeat CBC this AM with Hgb of 9.2. Dr Diaz has been consulted. Appropriate for outpatient observation at this time. Procedures * Completed Esophagogastroduodenoscopy, by MD ROOSEVELT DIAZ, on 08/27/2016 8 :57 AM * Completed Procedure Code: [id number] Procedure Name: not valued, on 08/27/2016 12 :00 AM * Completed Procedure Code: 61308 Procedure Name: not valued, on 08/27/2016 12: 00 AM * Completed Procedure Code: [id number] Procedure Name: not valued, on 07/30/2016 9: 59 AM * Completed Procedure Code: [id number] Procedure Name: not valued, on 07/30/2016 9: 59 AM * Completed Esophagogastroduodenoscopy with control of bleeding, by MD ROOSEVELT DIAZ, on 07/30/2016 9:21 AM * Completed Procedure Code: 7772615 Procedure Name: not valued, on 07/21/2016 12 :00 AM * Completed Procedure Code: 45849 Procedure Name: not valued, on 07/21/2016 12: 00 AM * Completed Procedure Code: 03678 Procedure Name: not valued, on 07/21/2016 12: 00 AM * Completed Procedure Code: 20319A2 Procedure Name: not valued, on 06/21/2016 12 [...] to care for yourself at home from 11/21/2016 12:25 PM:* Discharge Activity : Activity as tolerated * Discharge Diet : Modification as given by physician * Discharge Diet: : low fat low cholesterol * Call your doctor if: : [...] the responsibility of the patient or patient business center representative to confirm the list of medications with either the patient's personal care provider or the patient's follow-up care provider to ensure the patient has an appropriate list of medications to take at home. Preliminary list - medication reconciliation not completed. Discharge medications Continued medications* albuterol sulfate (Ventolin HFA) 90 mcg HFA Aerosol Inhaler, Ordered By: ABDIAZIZ NAJERA APRN Directions: 2 puff by inhalation every six hours PRN shortness of breath * alendronate (FOSAmax) 70 mg Tablet, Ordered By: ABDIAZIZ NAJERA APRN Directions: 1 tablet oral every Thursday * allopurinol 300 mg Tablet, Ordered By: ABDIAZIZ NAJERA APRN Directions: 1 tablet oral daily * arformoterol (Brovana) 15 mcg/2 mL Solution for Nebulization, Ordered By: ABDIAZIZ NAJERA APRN Directions: 2 mL by inhalation twice a day * aspirin (Adult Low Dose Aspirin) 81 mg tablet,delayed release (DR/EC), Ordered By: ABDIAZIZ NAJERA APRN Directions: 1 tablet oral daily * atorvastatin 20 mg Tablet, Ordered By: ABDIAZIZ NAJERA APRN Directions: 1 tablet oral daily at bedtime * busPIRone 7.5 mg Tablet, Ordered By: ABDIAZIZ NAJERA APRN Directions: 1 tablet oral twice a day * clopidogrel (Plavix) 75 mg Tablet, Ordered By: ABDIAZIZ NAJERA APRN Directions: 1 tablet oral daily every evening * digoxin 0.125mg Tablet, Ordered By: ABDIAZIZ NAJERA APRN Directions: 1 tablet oral daily * DULoxetine (Cymbalta) 60 mg capsule,delayed release(DR/EC), Ordered By: ABDIAZIZ NAJERA APRN Directions: 1 capsule oral daily * ferrous sulfate 325 mg (65 mg iron) Tablet, Ordered By: ABDIAZIZ MURRAY APRN Directions: 1 tablet oral twice a day with or after food * fluticasone (Flonase Allergy Relief) 50 mcg/actuation spray,suspension, Ordered By: ABDIAZIZ NAJERA APRN Directions: 1 spray nasal daily Additional Instructions: each nostril * foLIC Acid 1 mg Tablet, Ordered By: ABDIAZIZ NAJERA APRN Directions: 1 tablet oral daily every morning * furosemide (LaSIX) 40 mg Tablet, Ordered By: ABDIAZIZ NAJERA APRN Directions: 1 tablet oral daily * ipratropium-albuterol 0.5 mg-3 mg (2.5 mg base)/3 mL Solution for Nebulization , Ordered By: ABDIAZIZ NAJERA APRN Directions: 3 mL by inhalation daily for shortness of breath * levothyroxine 25 mcg Tablet, Ordered By: ABDIAZIZ NAJERA APRN Directions: 1 tablet oral daily before breakfast * LORazepam 0.5 mg Tablet, Ordered By: ABDIAZIZ NAJERA APRN Directions: 1 tablet oral three times a day PRN anxiety * mirtazapine (Remeron) 45 mg Tablet, Ordered By: ABDIAZIZ NAJERA APRN Directions: 0.5 tablet oral daily every evening * cygjnbjvmfna-Kr-hkld-minerals (Women's Daily Multivitamin) 18 mg-0.4 mg-450 mg Tablet, Ordered By: ABDIAZIZ NAJERA APRN Directions: 1 tablet oral daily * ondansetron (ZOFRAN ODT) 4 mg tablet,disintegrating, Ordered By: ABDIAZIZ NAJERA APRN Directions: 1 tablet oral every six hours PRN nausea or vomiting * pantoprazole (ProTONIX) 40 mg tablet,delayed release (DR/EC), Ordered By: ABDIAZIZ NAJERA APRN Directions: 1 tablet oral daily every morning Additional Instructions: 0700 AND 1600 * polyethylene glycol 3350 (Miralax) 17 gram Powder in Packet, Ordered By: ABDIAZIZ NAJERA APRN Directions: 1 packet oral daily * potassium chloride (Klor-Con 10) 10 mEq Tablet Extended Release, Ordered By: ABDIAZIZ NAJERA APRN Directions: 1 tablet oral daily with or after meal * propranolol 40 mg Tablet, Ordered By: ABDIAZIZ NAJERA APRN Directions: 1 1/2 tabs oral twice a day Changed medications* budesonide 0.5 mg/2 mL Suspension for Nebulization, Ordered By: ABDIAZIZ NAJERA APRN Directions: 2 mL by inhalation twice a day * ropinirole 3 mg Tablet, Ordered By: ABDIAZIZ NAJERA APRN Directions: 1 tablet oral daily at bedtime Stopped medications* None
--- OUTSIDE RECORDS SUMMARY | 2017-02-26 16:38 | XMS REPORT | Summary of Care ---
Author Author Chapito Muro Organization Unknown Address [address], [place] [id number] Phone Unavailable Care Team Providers Care Pmo Lead Name Role Phone Cece Streeter M.D. Unavailable [...] 11-Feb-2017 THYROID STIM. HORMONE 3602 Ordered: 11-Feb-2017 ULTRASOUND LEG VEINS LEFT Ordered: 11-Feb-2017 XRay FOOT-Left Ordered: 11-Feb-2017 Immunization Name Dates Details Influenza Lot #: [id number] on: 02-Aug-2010 Influenza Lot #: [id number] on: 24-Aug-2012 Pneumo (Pneumovax) Lot #: [id number] on: 24-Aug-2012 Fluzone High-Dose 0.5 ML Intramuscular Suspension Prefilled Syringe Lot #: [id number] on: 25-Jul-2015 Tdap (Adacel) Lot #: [id number] on: 05-Nov-2015 Fluzone High-Dose 0.5 ML Intramuscular Suspension Prefilled Syringe Lot #: [id number] on: 02-Sep-2016 Family History Name Dates Details [...] low threshold) Range: >60 EST GFR, NON-AFR [place] 26 ml/min (Below low threshold) Range: >60 [...] 1155 URIC ACID 3.8 mg/dL Range: 2.6-7.2 Plan of Care Name Dates Details Planned Observations LIPID PROFILE 1184 On Intent THYROID STIM. HORMONE 3602 On Intent Planned Goals not documented Planned Encounters Appointment; Provider: Chapito Muro On 13:30 Appointment; Provider: Stefan Streeter M.D. On 19-Mar-2017 14:00 Appointment; Provider: Krunal Lennno M.D. On 03-Mar-2017 14:45 Interventions Provided Labs/Procedures/Imaging* ULTRASOUND LEG VEINS LEFT; To be Done: 11 Feb 2017 * XRay FOOT-Left; To be Done: 11 Feb 2017 Instructions Name Dates Details Instructions [...]
--- OUTSIDE RECORDS SUMMARY | 2017-02-26 16:39 | XMS REPORT | Continuity of Care Document ---
Author Author [facility] Organization [facility] Address Unknown Phone Unavailable Support Name Relationship Address Phone JULIA SHEA MD Caregiver [address] [place] [address] Unavailable ELVER TORO MD Caregiver [address] [place] [address] Unavailable ELISABET TERAN Next Of Kin [address] [place] [address] Insurance Providers Guarantor Genesis Duque Address [address] [place] [address] ANGELI Email DENIED/NO TO [facility] Policy Number [id number] Subscriber's Name NetoGenesis amin Cece Relationship 18 Self Effective Date 16 Expiration Date 16 Payer Medicare Policy Number [id number] Subscriber's Name Genesis Duque Cece Relationship 18 Self Effective Date 96 Advance Directives Directive Response Recorded Date/Time Advanced Directives Type DNR Documentation Living Will DPOA for Healthcare 04/27/14 6:50pm Ordered Resuscitation Status Limited Code 04/10/14 3:17pm Resuscitation Documents on File N "UNKNOWN" 04/27/14 6:50pm DPOA for Healthcare Only Y TORSTEN CHU 05/26/16 1:43pm Living Will No 05/26/16 1:43pm Problems Active Problems Medical Problem Onset Date Status Anemia 05/03/2014 Acute Aortic valve disorder Unknown Acute CAD (coronary artery disease) Unknown Chronic CHF exacerbation Unknown Acute Chest pain Unknown Resolved Diastolic heart failure Unknown Chronic Essential hypertension Unknown Chronic Fever Unknown Acute Hypertension Unknown Chronic Immunodeficiency Unknown Acute Left leg pain Unknown Acute Left leg pain Unknown Acute Mitral valve regurgitation Unknown Acute Mixed hyperlipidemia Unknown Chronic Nausea Unknown Acute Nonrheumatic aortic (valve) stenosis [...] Chronic Presence of prosthetic heart valve Unknown Chronic Status post placement of cardiac pacemaker Unknown [...] Tablet 1 Tab Oral Daily 06/06/14 Aspirin 325 Mg Tablet 325 Mg Oral Daily 30 Days 30 Tablet 05/27/16 Atorvastatin Calcium 20 Mg Tablet 1 Tab Oral Bedtime 05/26/16 Clopidogrel Bisulfate (Plavix) 75 Mg Tablet 1 Tab Oral Daily 11/10 Clopidogrel Bisulfate (Plavix) 75 Mg Tablet 75 Mg Oral Bedtime 30 Days 30 Tablet 05/27/16 Duloxetine Hcl 60 Mg Capsule.dr 1 Cap Oral Daily 02/04/16 Ferrous Sulfate [...] Oral Daily as needed for Anxiety 06/06/14 Meclizine Hcl 12.5 Mg Tablet 1 Tab Oral for Nausea 90 Tablet Mirtazapine (Remeron) 45 Mg Tablet 0.5 Tab Oral Bedtime 04/10/14 Multivitamins (Multivitamin) 1 Tab Tablet 1 Tab Oral Daily Pantoprazole Sodium (Protonix) 40 Mg Tablet. 1 Tab Oral Daily 06/06/14 Polyethylene Glycol 3350 (Miralax) 17 Gm Powd.pack 17 Gm Oral Daily as needed for Constipation 04/27/14 Propranolol Hcl 40 Mg Tablet 1.5 Tab Oral Twice A Day 10/01/15 Ropinirole Hcl 2 Mg Tablet 1 Tab Oral Bedtime 10/01/15 Past Home Medications Medication Directions Ordered Status Acetaminophen (Tylenol) 500 Mg Tablet, 2 Tab Oral Every 6 Hours as needed for Arthritis 04/27/14 Discontinued Albuterol Sulfate 2.5 Mg/0.5 Ml Vial.neb, 3 Mg Inhalation Twice A Day Discontinued Aspirin 81 Mg Tab.chew, 1 Tab Oral Daily 10/01/15 Discontinued Aspirin (Aspirin Ec) 81 Mg Tablet.dr, [...] Problem Response Recorded Date/Time Onset Date Status Reason for Hospitalization ATHEROSCLEROSIS HEART DISEASE OF THE [place] 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 05/27/2016 1:59pm Not Applicable Not Applicable Hx Substance Use No 05/23/2016 2:12pm Not Applicable Not Applicable Hx Alcohol Use No 05/23/2016 2:12pm Not Applicable Not Applicable Has the pt used tobacco in the last 12 months No 05/23/2016 2:12pm Not Applicable Not Applicable Tobacco Usage none 04/01/2016 12:42pm Not Applicable Not Applicable Query Response Start Date Stop Date Smoking Status Never smoker Hospital Discharge Instructions Instructions: Care Instructions: Reason for Hospitalization: 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 no lifting more than 10 pounds, no lifting or pulling for 1 week Follow Up Appointments: Follow up with Dr. Shea on 06/17/16 at 11:40am. Pending Lab / Results: No Pending Lab Patient Instructions: You will take Plavix 75mg daily and Asprin 325mg daily, Do not stop these medications without Dr. Shea's order. Wound/Incision Care: Keep site clean and dry. no tub baths,or swimming, may shower tomorrow Notify Physician If: site is bleeding, abnormal drainage, increwased pain, fever of 101.5 or higher Condition at time of discharge: Good Plan of Care Discharge Date 05/27/16 2:30pm Prescriptions See Medication Section Functional Status Query Response Date Recorded Mobility Status Ambulatory w/assist May 26, 2016 4:24pm Assistive Devices Four Wheeled Walker May 26, 2016 4:24pm Activity Limitations None May 26, 2016 4:24pm Feeding Ability Independent May 26, 2016 4:24pm Toileting Ability Independent May 26, 2016 4:24pm Grooming Ability Independent May 26, 2016 4:24pm Dressing Ability Independent May 26, 2016 4:24pm Driving Ability Assist May 26, 2016 4:24pm Housework Ability Independent May 26, 2016 4:24pm Meal Preparation Ability Independent May 26, 2016 4:24pm Stair Climbing Ability Assist May 26, 2016 4:24pm Ability to complete ADL's impeded by No change May 26, 2016 4:24pm Cognitive/Perceptual Impairments Impaired vision May 26, 2016 4:24pm Visual Assistive Devices Glasses With patient May 26, 2016 4:24pm Preferred Method of Learning Listening May 26, 2016 4:24pm Allergies, Adverse Reactions, Alerts Allergen Type Severity Reaction Status Last Updated Cefuroxime Allergy Mild GI upset Active 10/01/15 Axetil Allergy Mild GI Upset Active 04/10/14 Immunizations Query Response on File Recorded Date/Time Hx Influenza Vaccination Y JUL 2015 05/23/16 2:12pm Hx Pneumococcal Vaccination Y AUG 2015 05/23/16 2:12pm Hx Influenza Vaccination Y JUL 2015 05/23/16 2:12pm Influenza Vaccine Hx fall 201405/27/16 12:00pm Tetanus Diptheria Vaccine History UNKNOWN 10/01/15 2:16pm Vital Signs Acute Vital Signs Vital Response Date/Time Temperature (Fahrenheit) 97.8 deg F (96.8 - 99.1) 05/27/2016 10:00am Temperature (Calculated Celsius) 36.64428 degrees C (36.0 - 37.3) 05/27/2016 10:00am Temperature Source Oral 05/26/2016 8:00pm Pulse Rate (adult) 74 bpm (60 - 100) 05/27/2016 2:00pm Respiratory Rate 30 breaths/min (10 - 20) 05/27/2016 2:00pm O2 Sat by Pulse Oximetry 99 % (90 - 100) 05/27/2016 2:00pm Oxygen Delivery Method Nasal Cannula 05/26/2016 9:00pm Oxygen Delivery Method Nasal Cannula 05/27/2016 2:00pm Oxygen Flow Rate 3.00 L/min 05/27/2016 2:00pm Blood Pressure 127/59 mm Hg 05/27/2016 2:00pm Blood Pressure Source Automatic Cuff 05/27/2016 2:00pm Height (Feet) 5 feet 05/27/2016 10:18am Height (Inches) 0.00 inches 05/27/2016 10:18am Weight (Kilograms) 57.300 kg 05/27/2016 8:52am Body Mass Index (BMI) 24.3 05/26/2016 1:41pm Results Laboratory Results Test Name Result Units Flags Reference Collection Date/Time Result Date/ Time Comments Arterial Blood pH 7.315 L 7.350-7.450 04/01/2016 3:33pm 04/01/2016 11: 12pm Arterial Blood Partial Pressure CO2 67 MMHG *H 34-45 04/01/2016 3:33pm 11:12pm Arterial Blood pO2 at Patient Temp 112 MMHG H 80-100 04/01/2016 3:33pm 04/01/2016 11:12pm Arterial Blood HCO3 34 MEQ/L H 22-26 04/01/2016 3:33pm 04/01/2016 11: 12pm Arterial Blood Total CO2 36 MEQ/L H 23-27 04/01/2016 3:33pm 04/01/2016 11:12pm Arterial Blood Base Excess 7.0 MMOL/L H -2.0-2.0 04/01/2016 3:33pm 04/01 11:12pm Arterial Blood Oxygen Saturation 98.0 % 95.0-98.0 04/01/2016 3:33pm 04/2016 11:12pm Oxygen Delivery Method (LAB) ROOM AIR 04/01/2016 3:33pm 04/01/2016 11:12pm Venous Blood pH 7.318 7.31-7.41 04/01/2016 3:33pm [...] 68.0 % 04/01/2016 3:33pm 04/01/2016 3: 37pm Neutrophils (%) (Auto) 61.7 % 33-66 04/07/2016 9:4304/07/2016 10: 02am Lymphocytes (%) (Auto) 24.7 % 23-45 04/07/2016 9:4304/07/2016 10: 02am Monocytes (%) (Auto) 8.3 % 0-9.0 04/07/2016 9:4304/07/2016 10:02am Eosinophils (%) (Auto) 4.6 % H 0-4 04/07/2016 9:4304/07/2016 10:02am Basophils (%) (Auto) 0.5 % 0-2 04/07/2016 9:4304/07/2016 10:02am Immature Granulocyte % (Auto) 0.2 % 0.0-0.5 04/07/2016 9:432015 10:02am Absolute Neutrophils (auto) 6.8 T/MM3 1.8-7.7 04/07/2016 9:432015 10:02am Absolute Lymphocytes (auto) 2.7 T/MM3 1-4.8 04/07/2016 9:432015 10:02am Absolute Monocytes (auto) 0.9 T/MM3 H 0-0.8 04/07/2016 9:43am 2015 10:02am Absolute Eosinophils (auto) 0.5 T/MM3 0-0.5 04/07/2016 9:43am 2015 10:02am Absolute Basophils (auto) 0.1 T/MM3 0-0.2 04/07/2016 9:43am 04/07/2016 10:02am Absolute Immature Granulocyte (auto 0.02 T/MM3 0.00-0.03 04/07/2016 9: 43am 04/07/2016 10:02am Absolute Reticulocyte Count 0.0790 T/MM3 0.0300-0.0900 04/07/2016 9: 43am 04/07/2016 10:02am Percent Reticulocyte Count 2.8 % H 0.6-1.7 04/07/2016 9:43am 04/07/2016 10:02am Immature Reticulocyte Fraction 13.3 % 3.3-14.5 04/07/2016 9:43am 2015 10:02am Reticulocyte Hgb Content (CHr) 34.0 PG 30.8-36.6 04/07/2016 9:43am 10:02am Total Bilirubin 0.50 MG/DL 0.20-1.30 04/07/2016 9:43am 04/07/2016 10: 16am Alkaline Phosphatase 80 U/L 38-126 04/07/2016 9:43am 04/07/2016 10: 16am Total Protein 7.1 G/DL 6.3-8.2 04/07/2016 9:43am 04/07/2016 10:16am Albumin 3.7 G/DL 3.5-5.0 04/07/2016 9:43am 04/07/2016 10:16am Globulin 3.4 G/DL 2.4-3.6 04/07/2016 9:43am 04/07/2016 10:16am Albumin/Globulin Ratio 1.1 RATIO 1.1-2.2 04/07/2016 9:43am 04/07/2016 10:16am Aspartate Amino Transf (AST/SGOT) 58 U/L H 14-36 04/07/2016 9:43am 04/07 10:16am Alanine Aminotransferase (ALT/SGPT) 16 U/L 9-52 04/07/2016 9:4304/07 10:16am Lactate Dehydrogenase 1122 U/L H 313-618 04/07/2016 9:4304/07/2016 10 :16am Uric Acid 3.2 MG/DL 2.5-7.5 04/07/2016 9:4304/07/2016 10:34am Immunoglobulin G 933.64 MG/DL 700-1600 04/07/2016 9:4304/07/2016 10: 24am Immunoglobulin A < 40.00 MG/DL L 70-400 04/07/2016 9:4304/07/2016 10: 24am Immunoglobulin M < 25.00 MG/DL L 40-230 04/07/2016 9:4304/07/2016 10: 24am Serum Total Protein 6.0 g/dL L 6.2-8.1 04/07/2016 9:4304/07/2016 2: 53pm Immunoelectrophoresis, no IMQ performed at [facility], [address] [place] [address] Concrete Smoother Carlos Small DO Albumin (PEP) 3.1 g/dL 2.6-4.5 04/07/2016 9:4304/09/2016 10:58am Ofdas-1-Bacbpqitx 0.4 g/dL 0.3-0.5 04/07/2016 9:4304/09/2016 10: 58am Ahylm-7-Hspzzhema 1.0 g/dL 0.6-1.2 04/07/2016 9:4304/09/2016 10: 58am Xsmu-1-Ztfvvyjh 0.4 g/dL 0.4-0.6 04/07/2016 9:4304/09/2016 10:58am Hwkq-3-Dbhwmudv 0.3 g/dL 0.2-0.5 04/07/2016 9:4304/09/2016 10:58am Gamma Globulins 0.7 g/dL 0.4-1.7 04/07/2016 9:4304/09/2016 10:58am Albumin % (PEP) 52.3 % 48.7-61.8 04/07/2016 9:43am 04/09/2016 10:58am Vmsaa-5-Nvnhxmuxj (%) 7.3 % 3.4-8.3 04/07/2016 9:43am 04/09/2016 10: 58am Uxxan-6-Sugqpmikq (%) 15.9 % 8.4-17.5 04/07/2016 9:43am 04/09/2016 10: 58am Ixzw-4-Rahvmoqh (%) 6.9 % 5.4-8.9 04/07/2016 9:43am 04/09/2016 10:58am Kyej-1-Qepmagsp (%) 5.2 % 3.8-7.7 04/07/2016 9:43am 04/09/2016 10:58am Gamma Globulins (%) 12.4 % 8.1-23.0 04/07/2016 9:43am 04/09/2016 10: 58am Immunoelectrophoresis, no IMQ performed at [facility], [address] [place] [address] Concrete Smoother Carlos Small DO Protein Electrophoresis Comment see below 04/07/2016 9:43am 2015 10:58am Normal electrophoretic pattern. No monoclonal peaks or restricted areas observed by immunofixation. Free Quinter/Lambda Light Chain Ratio 1.69 H 04/07/2016 9:43am 2015 4:15pm Reference Range: 0.2600-1.65 Test Performed by: [place] [address] Engineered Wood Designer: Gigi Quevedo II, M.D., Ph.D. Immunoglobulin Free Light Chains, Serum performed at [facility], [address] [place] [address] Concrete Smoother Emy Jeronimo MD Free Quinter Light Chains 1.40 mg/dL 04/07/2016 9:43am 04/08/2016 4: 15pm Reference Range: 0.3300-1.94 Free Lambda Light Chains 0.8290 mg/dL () 04/07/2016 9:43am 04/08/2016 4 :15pm Reference Range: 0.5700-2.63 Test Performed by: [place] [address] Engineered Wood Designer: Gigi Quevedo II, M.D., Ph.D. Immunoglobulin Free Light Chains, Serum performed at [facility], [address] [place] [address] Concrete Smoother Emy Jeronimo MD Reference Range: 0.5700-2.63 Test Performed by: [place] [address] Engineered Wood Designer: Gigi Quevedo II, M.D., Ph.D. --- 04/08/16 1615 --- IFLCLA previously reported as: 0.8290 mg/dL Reference Range: 0.5700-2.63 Test Performed by: [place] [address] Engineered Wood Designer: Gigi Quevedo II, M.D., Ph.D. Immunoglobulin Free Light Chains, Serum performed at [facility], [address] [place] [address] Concrete Smoother Emy Jeronimo MD White Blood Count 13.2 T/MM3 H 4.5-11.0 05/26/2016 2:42pm 05/26/2016 3: 12pm Red Blood Count 2.92 M/MM3 L 4.00-5.20 05/26/2016 2:42pm 05/26/2016 3: 12pm Hemoglobin 9.5 GM/DL L 12-16 05/26/2016 2:42pm 05/26/2016 3:12pm Hematocrit 31.8 % L 36-46 05/26/2016 2:42pm 05/26/2016 3:12pm Mean Corpuscular Volume 108.9 UM3 H 80-100 05/26/2016 2:42pm 05/26/2016 3:12pm Mean Corpuscular Hemoglobin 32.5 UUG 26-34 05/26/2016 2:42pm 2015 3:12pm Mean Corpuscular Hemoglobin Concent 29.9 GM/DL L 31-37 05/26/2016 2:42pm 05/26/2016 3:12pm RDW Standard Deviation 55.3 FL H 36.9-50.2 05/26/2016 2:42pm 05/26/2016 3:12pm Platelet Count 213 T/MM3 130-400 05/26/2016 2:42pm 05/26/2016 3:12pm Mean Platelet Volume 12.1 UM3 9.4-12.4 05/26/2016 2:42pm 05/26/2016 3: 12pm Neutrophils % (Manual) 61.0 % 33-66 05/26/2016 2:42pm 05/26/2016 3: 15pm Lymphocytes % (Manual) 31.0 % 23-45 05/26/2016 2:42pm 05/26/2016 3: 15pm Monocytes % (Manual) 6.0 % 0-9.0 05/26/2016 2:42pm 05/26/2016 3:15pm Eosinophils % (Manual) 2.0 % 0-4 05/26/2016 2:42pm 05/26/2016 3:15pm Absolute Neutrophils (Manual) 8.1 T/MM3 H 1.8-7.7 05/26/2016 2:42pm 10/2015 3:15pm Lymphocytes # (Manual) 4.1 T/MM3 1-4.8 05/26/2016 2:42pm 05/26/2016 3: 15pm Monocytes # (Manual) 0.8 T/MM3 0-0.8 05/26/2016 2:42pm 05/26/2016 3: 15pm Eosinophils # (Manual) 0.3 T/MM3 0-0.5 05/26/2016 2:42pm 05/26/2016 3: 15pm Red Cell Morphology Comment ABNORMAL 05/26/2016 2:42pm 05/26/2016 3 :15pm Anisocytosis 1+ 05/26/2016 2:42pm 05/26/2016 3:15pm Poikilocytosis 1+ 05/26/2016 2:42pm 05/26/2016 3:15pm Prothromb Time International Ratio 0.98 L 0.99-1.21 05/26/2016 2:42pm 05/26/2016 3:28pm THERAPUTIC RANGE=2.00-3.00 FOR ANTI-THROMBOSIS THERAPUTIC RANGE=2.50-3.50 FOR IMPLANTED VALVE Icterus Index < 2 0-7 05/27/2016 4:25am 05/27/2016 4:40am Chemistry Specimen Hemolysis < 15 0-25 05/27/2016 4:25am 05/27/2016 4 :40am 0-25: Specimen Exhibited No Hemolysis. Turbidity < 20 0-20 05/27/2016 4:25am 05/27/2016 4:40am Sodium Level 146 MEQ/L H 134-144 05/27/2016 4:25am 05/27/2016 4:40am Potassium Level 3.9 MEQ/L 3.6-5 05/27/2016 4:25am 05/27/2016 4:47am Chloride Level 99 MEQ/L 98-107 05/27/2016 4:25am 05/27/2016 4:40am Carbon Dioxide Level 38 MEQ/L H 22-30 05/27/2016 4:25am 05/27/2016 5: 02am Anion Gap 9 MEQ/L 5-15 05/27/2016 4:25am 05/27/2016 5:02am Blood Urea Nitrogen 28.0 MG/DL H 7-17 05/27/2016 4:25am 05/27/2016 4: 40am Creatinine 1.4 MG/DL H 0.7-1.2 05/27/2016 4:25am 05/27/2016 4:40am BUN/Creatinine Ratio 20 RATIO 6-26 05/27/2016 4:25am 05/27/2016 4:40am Glomerular Filtration Rate Calc 36 05/27/2016 4:25am 05/27/2016 4: 40am Glucose Level 92 MG/DL 65-110 05/27/2016 4:25am 05/27/2016 4:40am Calculated Osmolality 287 MOSM/KG H 261-280 05/27/2016 4:25am 2015 4:40am Calcium Level 9.2 MG/DL 8.4-10.2 05/27/2016 4:25am 05/27/2016 4:40am Magnesium Level 1.6 MG/DL 1.6-2.3 05/27/2016 4:25am 05/27/2016 4:40am Procedures Procedure Status Date Provider(s) PLACE CATHETER IN ARTERY Completed 04/01/16 JULIA SHEA MD ROUTINE VENIPUNCTURE Completed 04/01/16 METABOLIC PANEL TOTAL CA Completed 04/01/16 BLOOD GASES ANY COMBINATION Completed 04/01/16 BLOOD GASES ANY COMBINATION Completed 04/01/16 COMPLETE CBC W/AUTO DIFF WBC Completed 04/01/16 ELECTROCARDIOGRAM TRACING Completed 04/01/16 R HRT CORONARY ARTERY ANGIO Completed 04/01/16 JULIA SHEA MD 164974"CLOSURE DEVICE, VASCULAR (IMPLANTABLE/INSERTABLE)" Completed 04/01/16 056126GLJTB THAN PEEL-AWAY Completed 04/01/16 844444NSEQK THAN PEEL-AWAY Completed 04/01/16 701682"INJECTION, HEPARIN SODIUM, PER 1000 UNITS" Completed 04/01/16 672668"INJECTION, MIDAZOLAM HYDROCHLORIDE, PER 1 MG" Completed 04/01/16 137877"INJECTION, FENTANYL CITRATE, 0.1 MG" Completed 04/01/16 039954"INFUSION, NORMAL SALINE SOLUTION , 1000 CC" Completed 04/01/16 120221"LOW OSMOLAR CONTRAST MATERIAL, 300-399 MG/ML IODINE C Completed 087996"LOW OSMOLAR CONTRAST MATERIAL, 300-399 MG/ML IODINE C Completed COMPREHEN METABOLIC PANEL Completed 04/07/16 ASSAY IGA/IGD/IGG/IGM EACH Completed 04/07/16 ASSAY IGA/IGD/IGG/IGM EACH Completed 04/07/16 ASSAY IGA/IGD/IGG/IGM EACH Completed 04/07/16 LACTATE (LD) (LDH) ENZYME Completed 04/07/16 ASSAY OF MAGNESIUM Completed 04/07/16 ASSAY NEPHELOMETRY NOT SPEC Completed 04/07/16 ASSAY NEPHELOMETRY NOT SPEC Completed 04/07/16 ASSAY OF PROTEIN SERUM Completed 04/07/16 PROTEIN E-PHORESIS SERUM Completed 04/07/16 ASSAY OF BLOOD/URIC ACID Completed 04/07/16 COMPLETE CBC W/AUTO DIFF WBC Completed 04/07/16 MANUAL RETICULOCYTE COUNT Completed 04/07/16 IMMUNOFIX E-PHORESIS SERUM Completed 04/07/16 Encounters Encounter Location Arrival/Admit Date [facility] 05/27/16 2:30pm JULIA SHEA MD [facility] 04[facility]07[facility]16 9:52[facility] 12:[facility] 04/01/16 7:10pm JULIA SHEA MD
--- OUTSIDE RECORDS SUMMARY | 2017-02-26 16:39 | XMS REPORT | Summary of Care ---
Author Author Krunal Lennon M.D. Unknown Address Unknown Phone Unavailable Care Team Providers Care Fretted Instrument Inspector Name Role Phone Cece Streeter M.D. 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 * Quantity: 30 Refills: 5 Bhaskar Chapito * Start 10-Oct-2013 Active Levothyroxine Sodium 25 MCG Oral Tablet TAKE 1 TABLET DAILY. * Quantity: 30 Refills: 3 Chapito Muro * Start 25-Aug-2016 Active Injectafer 750 MG/15ML Intravenous Solution Give 750 mg IV, two doses, one week apart. * Quantity: 30 Refills: 0 Fluck Ramsey.Krunal Reynolds * Start 26-Aug-2016 Active Atorvastatin Calcium 20 MG Oral Tablet * Refills: 0 Sourk M.DLinda, Stefan Zhao * Start 16-Sep-2016 Active LORazepam [...] Immunization Name Dates Details Influenza Lot #: [id number] on: 02-Aug-2010 Influenza Lot #: [id number] on: 24-Aug-2012 Pneumo (Pneumovax) Lot #: [id number] on: 24-Aug-2012 Fluzone High-Dose 0.5 ML Intramuscular Suspension Prefilled Syringe Lot #: [id number] on: 25-Jul-2015 Tdap (Adacel) Lot #: [id number] on: 05-Nov-2015 Fluzone High-Dose 0.5 ML Intramuscular Suspension Prefilled Syringe Lot #: [id number] on: 02-Sep-2016 Family History Name Dates Details [...] low threshold) Range: >60 EST GFR, NON-AFR RWANDAN 35 ml/min (Below low threshold) Range: >60 [...] Range: 0-2 EPITH 0-2 /HPF Range: 0-10 02-Dec-2016 13:21 Haptoglobin [id number] Comments: ORDER IN BOOK UNDER NOVEMBER 2016Testing performed at: [DA] M:[facility], [address], , Makeup Artist: KEILA Carranza MD HAPTOGLOBIN 115 mg/dL Range: 34-200 17:01 VIVIAN PE and FLC Serum [id number] Comments: ORDER IN BOOK UNDER NOVEMBER 2016Testing performed at: [DA] [facility] [address], [place], [address], , Makeup Artist: KEILA Carranza MD IMMUNOGLOBULIN G, QN, SERUM 949 mg/dL Range: 700-1600 IMMUNOGLOBULIN A, QN, SERUM 64 mg/dL Range: 64-422 IMMUNOGLOBULIN M, QN, SERUM 33 mg/dL Range: 26-217 PROTEIN, TOTAL, SERUM 5.9 g/dL (Below low threshold) Range: 6.0-8.5 ALBUMIN 2.9 g/dL Range: 2.9-4.4 LGVCO-8-WSHOFDRC 0.4 g/dL Range: 0.0-0.4 TCRTD-5-PPZVFGEP 0.8 g/dL Range: 0.4-1.0 BETA GLOBULIN 0.9 g/dL Range: 0.7-1.3 GAMMA GLOBULIN 0.9 g/dL Range: 0.4-1.8 M-SPIKE Not Observed g/dL Range: Not Observed GLOBULIN, TOTAL 3.0 g/dL Range: 2.2-3.9 A/G RATIO 1.0 Range: 0.7-1.7 IMMUNOFIXATION RESULT, SERUM Comment Comments: An apparent normal immunofixation pattern.----- PLEASE NOTE: Comment Comments: Protein electrophoresis scan will follow via computer,mail, or trust clerk delivery.----- FREE KAPPA LT CHAINS,S 17.05 mg/L Range: 3.30-19.40 FREE LAMBDA LT CHAINS,S 23.20 mg/L Range: 5.71-26.30 KAPPA/LAMBDA RATIO,S 0.73 Range: 0.26-1.65 04-Dec-2016 08:31 URINE CULTURE [id number] Comments: [facility] [place], [address], Makeup Artist: Gigi Alberto D.O., MPHQuest Collection Date/Time: [id number] Results Received Date/Time: [id number] Reported Date/Time: FASTING:NOQuest performed at: [facility] [place], [address], Makeup Artist: Gigi Alberto D.O., MPHQuest Collection Date/Time: [id number] Results Received Date/Time: [id number] Reported Date/Time: FASTING:NO CULTURE, URINE, ROUTINE SEE NOTE (Abnormal) Comments: CULTURE, URINE, ROUTINE MICRO NUMBER: [id number] TEST STATUS: FINAL SPECIMEN SOURCE : URINE [...] low threshold) Range: >60 EST GFR, NON-AFR RWANDAN 38 ml/min (Below low threshold) Range: >60 [...] low threshold) Range: >60 EST GFR, NON-AFR RWANDAN 28 ml/min (Below low threshold) Range: >60 [...] Provider: Krunal Lennon M.D. On 28-Jan-2017 09:00 Appointment; Provider: Krunal Lennon M.D. On 30-Dec-2016 [...] not documented On 23-Jul-2016 08:00 Appointment; Bruce aSunders M.D. Encounter Diagnosis: Problem not documented On [...]
--- OUTSIDE RECORDS SUMMARY | 2017-02-26 16:39 | XMS REPORT | Continuity of Care Document ---
Author Author [facility] Organization [facility] Address Unknown Phone Unavailable Support Name Relationship Address Phone ROLAND CABRAL Caregiver [facility] [phone] [facility] [address] [place] [address] ELISABET TERNA Next Of Kin [address] [place] [address] Insurance Providers Payer Name Policy Number Subscriber Name Relationship Medicare [id number] Genesis Duque 18 Self [employer] Plan [id number] Genesis Duque 18 Self Advance Directives Directive [...] Interp. Ref. Range Comments Absolute Reticulocyte Count August 31, 2014 8:38am 0.0579 T/MM3 N 0.0300-0.0900 Acanthocytes July 06, 2014 10:38am 1+ - Activated Partial Thromboplast Time June 25, 2014 10:55am 40.4 SEC H 24-36 Alanine Aminotransferase (ALT/SGPT) August 31, 2014 8:38am 35 U/L N 9- 52 Albumin August 31, 2014 8:38am 3.8 G/DL N 3.5-5.0 Albumin/Globulin Ratio August 31, 2014 8:38am 1.3 RATIO N 1.1-2.2 Alkaline Phosphatase August 31, 2014 8:38am 79 U/L N 38-126 Uejwr-0-Rvedbgilm August 31, 2014 8:38am 0.3 g/dL - Sulhv-4-Yuowxaxaj (%) August 31, 2014 8:38am 4.7 % - Ydiky-6-Izqkxfvyj August 31, 2014 8:38am 0.8 g/dL - Wgazg-9-Vbfplssjh (%) August 31, 2014 8:38am 12.6 % - Anion Gap August 31, 2014 8:38am 10 MEQ/L N 5-15 Anisocytosis July 06, 2014 10:38am 2+ - Aspartate Amino Transf (AST/SGOT) August 31, 2014 8:38am 47 U/L H 14- 36 BUN/Creatinine Ratio August 31, 2014 8:38am 43 RATIO H 6-26 Band Neutrophils # July 06, 2014 10:38am 0.4 T/MM3 - Band Neutrophils % July 06, 2014 10:38am 3.0 % N 0-6 Basophils # (Auto) August 31, 2014 8:38am 0.0 T/MM3 N 0-0.2 Basophils # (Manual) April 28, 2014 10:43am 0.2 T/MM3 N 0-0.2 Basophils % (Manual) April 28, 2014 10:43am 1.0 % N 0-2 Basophils (%) (Auto) August 31, 2014 8:38am 0.4 % N 0-2 Blood Smear Pathologist Review May 01, 2014 4:20am Sent for review - Blood Urea Nitrogen August 31, 2014 8:38am 39.0 MG/DL H 7-17 C-Reactive Protein April 10, 2014 1:32pm 70.1 MG/L H 0-9 Calcium Level August 31, 2014 8:38am 9.7 MG/DL N 8.4-10.2 Calculated Osmolality August 31, 2014 8:38am 284 MOSM/KG H 261-280 Carbon Dioxide Level August 31, 2014 8:38am 29 MEQ/L N 22-30 Chloride Level August 31, 2014 8:38am 103 MEQ/L N 98-107 Cold Agglutinin Titer April 28, 2014 10:43am Negative - Conjugated Bilirubin April 28, 2014 7:55pm 0.00 MG/DL N 0.00-0.30 COMMENT TO BE TAKEN WITH NEXT BLOOD DRAW Corrected White Blood Count April 30, 2014 4:35am 18.2 T/MM3 H 4.5-11.0 Creatine Kinase MB April 28, 2014 10:45pm 0.7 NG/ML N 0-3.4 Creatinine August 31, 2014 8:38am 0.9 MG/DL N 0.7-1.2 D-Dimer June 25, 2014 10:55am < 150 NG/ML 0-224 <224 NG/ML= PRESUMPTIVE NEGATIVE FOR PE OR DVT>224 NG/ML=ADDITIONAL EVALUATION FOR PE OR DVT RECOMMENDED Eosinophils # (Auto) August 31, 2014 8:38am 0.1 T/MM3 N 0-0.5 Eosinophils # (Manual) July 06, 2014 10:38am 1.3 T/MM3 H 0-0.5 Eosinophils % (Manual) July 06, 2014 10:38am 11.0 % H 0-4 Eosinophils (%) (Auto) August 31, 2014 8:38am 1.6 % N 0-4 Erythrocyte Sedimentation Rate April 10, 2014 1:32pm > 100 MM/HR H 0-20 Erythropoietin April 11, 2014 5:59am 17.9 mIU/mL - Reference Range: 2.6 - 18.5 Test Performed by: [place] [id number] Flow Coordinator: Amos Montero III, M.D. Erythropoietin performed at [facility], [address] [place] [address] [employer] Winston Camacho MD Ferritin April 11, 2014 8:00pm 464 NG/ML H 11-264 COMMENT with next troponin draw. Fibrin Degradation Products May 01, 2014 4:20am >40ug/ml UG/ML H - Ordering r/o VTE No Fibrinogen May 01, 2014 4:20am 541 MG/DL H 135-357 Ordering r/o VTE No Folate April 11, 2014 5:59am > 20.0 NG/ML H 2.76-20 NORMAL ADULT RANGE: 2.76->20 ng/mL Gamma Globulins August 31, 2014 8:38am 0.9 g/dL - Gamma Globulins (%) August 31, 2014 8:38am 13.8 % - Immunoelectrophoresis, no IMQ performed at [facility], [address] [place] [address] [employer] Leonidas Camacho MD Gamma Glutamyl Transpeptidase April 28, 2014 10:43am 120 U/L H 8-78 Globulin August 31, 2014 8:38am 2.9 G/DL N 2.4-3.6 Glucose Level August 31, 2014 8:38am 133 MG/DL H 65-110 Haptoglobin May 11, 2014 8:50am 268 mg/dL H - Haptoglobin performed at [facility], [address], [place] [address]Medical Director Leonidas Camacho MD Hematocrit August 31, 2014 8:38am 31.7 % L 36-46 Hemoglobin August 31, 2014 8:38am 10.1 GM/DL L 12-16 Hemoglobin A1c April 11, [...] 5:59am 5.6 umol/L - Homocysteine performed at [facility], [address] [place], [place] [address]Medical Director MD Piper Ritchieell[place] Bodies April 27, 2014 7:35pm 1+ - Hypochromasia June 08, 2014 8:50am 1+ - Immature Reticulocyte Fraction August 31, 2014 8:38am 3.8 % N 3.3- 14.5 Immunoglobulin A August 31, 2014 8:38am < 40.00 MG/DL L 70-400 Immunoglobulin G August 31, 2014 8:38am 966.62 MG/DL N 700-1600 Immunoglobulin G Total June 01, 2014 10:00am 1070 mg/dL - Reference Range:767 - 1590 Test Performed by: [place] [address] Flow Coordinator: Amos Montero III, M.D. Immunoglobulin G1 June 01, 2014 10:00am 684 mg/dL - Reference Range :341 - 894 Test Performed by: [place] [address] Flow Coordinator: Amos Montero III, M.D. Immunoglobulin G2 June 01, 2014 10:00am 248 mg/dL - Reference Range :171 - 632 Immunoglobulin G3 June 01, 2014 10:00am 38.7 mg/dL - Reference Range:18.4 - 106.0 Test Performed by: [place] [address] Flow Coordinator: Amos Montero III, M.D. IgG [place] [address] [employer] Winston Camacho MD Reference Range: 18.4 - 106.0 Test Performed by: [place] [address] Flow Coordinator: Amos Montero III, M.D. --- 06/03/14 0940 --- IGGSUB3 previously reported as: 38.7 mg/dL Reference Range: 18.4 - 106.0 Test Performed by: [place] [address] Flow Coordinator: Amos Montero III, M.D. IgG Subclasses performed at [facility], [address] [place] [address] [employer] Winston Camacho MD Immunoglobulin G4 June 01, 2014 10:00am 8.5 mg/dL - Reference Range :2.4 - 121.0 Test Performed by: [address] [address] Flow Coordinator: Amos Montero III, M.D. IgG Subclasses performed at [facility], [address] [place] [address] [employer] Winston Camacho MD Immunoglobulin M August 31, 2014 8:38am < 25.00 MG/DL L 40-230 Influenza Type [...] Reference Range 5.5% - 12.7%.Testing performed at [place], [place] Lactate Dehydrogenase August 31, 2014 8:38am 1076 U/L H 313-618 Large Platelets June 08, 2014 8:50am Few - Lymphocytes # (Auto) August 31, 2014 8:38am 1.2 T/MM3 N 1-4.8 Lymphocytes # (Manual) July 06, 2014 10:38am 1.9 T/MM3 N 1-4.8 Lymphocytes % (Manual) July 06, 2014 10:38am 16.0 % L 23-45 Lymphocytes (%) (Auto) August 31, 2014 8:38am 14.0 % L 23-45 Macrocytosis April 18, 2014 8:15am 1+ - Magnesium Level August 31, 2014 8:38am 1.7 MG/DL N 1.6-2.3 Mean Corpuscular Hemoglobin August 31, 2014 8:38am 30.5 UUG N 26-34 Mean Corpuscular Hemoglobin Concent August 31, 2014 8:38am 31.9 GM/DL N 31-37 Mean Corpuscular Volume August 31, 2014 8:38am 95.8 UM3 N 80-100 Mean Platelet Volume August 31, 2014 8:38am 12.6 UM3 H 9.4-12.4 Metamyelocytes # April 29, 2014 4:19am 0.2 T/MM3 - Metamyelocytes % April 29, 2014 4:19am 1.0 % H 0-0 Methylmalonic Acid April 11, 2014 5:59am 0.15 nmol/mL - Test Performed by:[place] [address] Flow Coordinator: Amos Montero III, M.D. Methylmalonic Acid, Serum performed at [facility], [address] [place] [address] [employer] Winston Camacho MD Microcytosis July 06, 2014 10:38am 1+ - Monocytes # (Auto) August 31, 2014 8:38am 0.9 T/MM3 H 0-0.8 Monocytes # (Manual) July 06, 2014 10:38am 0.4 T/MM3 N 0-0.8 Monocytes % (Manual) July 06, 2014 10:38am 3.0 % N 0-9.0 Monocytes (%) (Auto) August 31, 2014 8:38am 10.1 % H 0-9.0 Mycoplasma pneumoniae IgG Antibody [...] with M. pneumoniae. Mycoplasma Antibodies performed at [facility] [address], [address] [place] [address] [employer] Leonidas Camacho MD Myelocytes # April 16, 2014 5:25am 0.2 T/MM3 - Myelocytes % April 16, 2014 5:25am 1.0 % H 0-0 Neutrophils # (Auto) August 31, 2014 8:38am 6.3 T/MM3 N 1.8-7.7 Neutrophils # (Manual) July 06, 2014 10:38am 7.9 T/MM3 H 1.8-7.7 Neutrophils % (Manual) July 06, 2014 10:38am 66.0 % N 33-66 Neutrophils (%) (Auto) August 31, 2014 8:38am 73.7 % H 33-66 Nucleated Red Blood Cells May 04, 2014 9:05am 2 - Ovalocytes April 17, 2014 5:15am 1+ - Parathyroid Hormone (Intact) August 31, 2014 9:38am 84.7 PG/ML H 7.5- 53.5 Percent Iron Saturation April 11, 2014 8:00pm 8 % L 9-55 COMMENT with next troponin draw. Percent Reticulocyte Count August 31, 2014 8:38am 1.8 % H 0.6-1.7 Phosphorus Level May 03, 2014 4:40am 5.1 MG/DL H 2.5-4.5 Platelet Count August 31, 2014 8:38am 204 T/MM3 N 130-400 Poikilocytosis June 08, 2014 8:50am 1+ - Potassium Level August 31, 2014 8:38am 3.5 MEQ/L L 3.6-5 Prothromb Time International Ratio June 25, 2014 10:55am 1.15 H 0.81- 1.09 THERAPUTIC RANGE=2.00-3.00 FOR ANTI-THROMBOSIS THERAPUTIC RANGE=2.50- 3.50 FOR IMPLANTED VALVE RDW Standard Deviation August 31, 2014 8:38am 63.1 FL H 36.9-50.2 Red Blood Count August 31, 2014 8:38am 3.31 M/MM3 L 4.00-5.20 Reference Lab Test Name April 13, 2014 8:10am Sent out - Reticulocyte Hgb Content (CHr) August 31, 2014 8:38am 38.0 PG H 30.8- 36.6 Schistocytes May 04, 2014 9:05am 1+ - Sodium Level August 31, 2014 8:38am 142 MEQ/L N 134-144 Stomatocytes April 27, 2014 7:35pm 2+ - Stool Occult Blood May 02, 2014 10:30am Negative - Has specimen been collected/obtained? YCOMMENT 2 OF 3 Target Cells June 22, 2014 10:35am 1+ - Thyroid Stimulating Hormone (TSH) April 10, 2014 12:46pm 1.25 MIU/L N 0.47-4.68 COMMENT add to blood already drawn in lab. Total Bilirubin August 31, 2014 8:38am 0.40 MG/DL N 0.20-1.30 Total Creatine Kinase April 28, 2014 10:45pm < 20 U/L L 30-135 Total Iron Binding Capacity April 11, 2014 8:00pm 297 UG/DL N 261-497 COMMENT with next troponin draw. Total Protein August 31, 2014 8:38am 6.7 G/DL N 6.3-8.2 Troponin I June 25, 2014 10:55am 0.014 ng/ml N 0-0.12 Unconjugated Bilirubin April 28, 2014 7:55pm 0.40 MG/DL N 0.00-1.10 COMMENT TO BE TAKEN WITH NEXT BLOOD DRAW Uric Acid August 31, 2014 8:38am 3.6 MG/DL N 2.5-7.5 Urine Albumin (%) April 13, 2014 9:15pm 72.1 % - Has specimen been collected/obtained? YCOMMENT 24 hour urine Urine Oalyp-6-Akmnpjmzk (%) April 13, 2014 9:15pm 6.8 % - Has specimen been collected/obtained? YCOMMENT 24 hour urine Urine Iggfy-1-Utpixvqna (%) April 13, 2014 9:15pm 8.9 % [...] Hr - Protein electrophoresis, Urine performed at [facility], [address] [place] [address] [employer] Leonidas Camacho MD Urine Collection Time April [...] % - Eosinophil Count, Urine performed at [facility], [address] [place] [address] [employer] Leonidas Camacho MD Urine Gamma Globulin (%) April 13, 2014 9:15pm 6.6 % - Has specimen been collected/obtained? YCOMMENT 24 hour urine Urine Glucose (UA) June 19, 2014 6:58pm Negative - Has specimen been collected/obtained? Y Urine Hemosiderin April 27, 2014 9:20pm Negative - Test Performed by: [facility] [address] Flow Coordinator: Amos Montero III, M.D. Hemosiderin, Urine performed at [facility], [address] [place] [address] [employer] Winston Camacho MD Urine Hyaline Casts June [...] Has specimen been collected/obtained? Y Urine Specific [place] June 19, 2014 6:58pm 1.020 - Has specimen been collected/obtained? Y Urine Squamous Epithelial Cells June 19, 2014 6:58pm 5-10 - Has specimen been collected/obtained? Y Urine Total Protein April 13, 2014 9:15pm 32 mg/dL H - Protein electrophoresis, Urine performed at [facility], [address] [place] [address] [employer] Leonidas Camacho MD Urine Total Protein 24 [...] 378 PG/ML N 239-931 White Blood Count August 31, 2014 8:38am 8.5 T/MM3 N 4.5-11.0 Chemistry Specimen Hemolysis August 31, 2014 8:38am 36 H 0-25 0-25: No Hemolysis.26-70: Slight Hemolysis [...] can falsely decrease Phenytoin. Recommend specimen recollection. Miwl-7-Tzhxspmf August 31, 2014 8:38am 0.4 g/dL - Jwqj-6-Cudywwbo (%) August 31, 2014 8:38am 6.3 % - Dxik-8-Ssirdcwx August 31, 2014 8:38am 0.2 g/dL - Vtbx-5-Zkwovuif (%) August 31, 2014 8:38am 3.8 % - Serum Monoclonal Protein May 11, 2014 8:50am 0.2 g/dL PH - ORDERED BY DR FORD Albumin (PEP) August 31, 2014 8:38am 3.8 g/dL - Protein Electrophoresis Comment August 31, 2014 8:38am see below - Normal electrophoretic pattern. No monoclonal peaks orrestricted areas observed by immunofixation. Normal electrophoretic pattern. No monoclonal peaks or restricted areas observed by immunofixation. Previously reported IgM lambda monoclonal is not detected. --- 09/01/14 1342 --- PECOM previously reported as: see below Normal electrophoretic pattern. No monoclonal peaks or restricted areas observed by immunofixation. 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 Kris Gonzalez M.D. 13:43 04/12/2014 * Findings: Monoclonal B-Cell Population: Evergreen description and % total cells: CD45 vs SSC; CD19 vs SSC; about 2% of the total cells. Phenotype: The monoclonal B-cells are brightly CD45+; moderately CD19+/CD20+/FMC7+/Surface Lambda+; trace dim CD11c+/CD38+; negative for CD10, CD5, CD103, CD25 and Surface [place]. These B-cells comprise about 9% of the gated lymphocytes. * Lymphocytes: Evergreen description and % total cells: CD45 vs [...] April 18, 2014 8:15am Few - Turbidity August 31, 2014 8:38am < 20 0-20 Reactive Lymphocytes % July 06, 2014 10:38am 1.0 % H 0-0 Glomerular Filtration Rate Calc August 31, 2014 8:38am 60 - Serum Total Protein August 31, 2014 8:38am 6.4 g/dL - Immunoelectrophoresis, no IMQ performed at [facility], [address] [place] [address] [employer] Leonidas Camacho MD Free [place]/Lambda Light Chain Ratio August 31, 2014 8:38am 0.6736 - Reference Range:0.2600-1.65 Test Performed by: [place] [address] Flow Coordinator: Lj Elias M.D. Immunoglobulin Free Light Chains, Serum performed at [facility], [address] [place] [address] [employer] Winston Camacho MD Reactive Lymphocytes # July 06, 2014 10:38am 0.1 T/MM3 H 0-0 Immature Granulocyte # (Auto) August 31, 2014 8:38am 0.02 T/MM3 N 0.00 -0.03 Immature Granulocyte % (Auto) August 31, 2014 8:38am 0.2 % N 0.0-0.5 Urine Total Perham/Lambda Ratio April 13, 2014 9:15pm See below - Ratio not calculated because the Total Perham and TotalLambda values are less than the reportable range. Test Performed by: [place] [address] Flow Coordinator: Amos Montero III, M.D. Immunoglobulin Light Chains, [place] [address] [employer] Winston Camacho MD Ur Total [place]ham Light Chains 24 Hr April 13, 2014 9:15pm <0.9000 mg/dL - Test Performed by:[place] [address] Flow Coordinator: Amos Montero III, M.D. Immunoglobulin Light Chains, [place] [address] [employer] Winston Camacho MD Test Performed by: [place] [address] Flow Coordinator: Amos Montero III, M.D. --- 04/17/14 0823 --- UIFLCKA previously reported as: <0.9000 mg/dL Test Performed by: [place] [address] Flow Coordinator: Amos Montero III, M.D. Immunoglobulin Light Chains, [place] [address] [employer] Winston Camacho MD Ur Total Lambda Light [...] or septic shock highly indicated. Icterus Index August 31, 2014 8:38am < 2 0-7 HJ-Xet-E-Type Natriuretic Peptide June 25, 2014 10:55am 1900 PG/ML H 0 -175 Rule in cut points: <50 years old=450; 50-75 years old=900; >75 years old=1800; When utilizing ProBNP rule-in cut points, adjustment for impaired renal function is typically not required. Free [place] Light Chains August 31, 2014 8:38am 0.6500 mg/dL - Reference Range:0.3300-1.94 Free Lambda Light Chains August 31, 2014 8:38am 0.9650 mg/dL - Reference Range:0.5700-2.63 Test Performed by: [place] [address] Flow Coordinator: Lj Elias M.D. Immunoglobulin Free Light Chains, [place] [address] [employer] Winston Camacho MD Reference Range: 0.5700-2.63 Test Performed by: [place] [address] Flow Coordinator: Lj Elias M.D. --- 09/01/14 1326 --- IFLCLA previously reported as: 0.9650 mg/dL Reference Range: 0.5700-2.63 Test Performed by: [place] [address] Flow Coordinator: Lj Elias M.D. Immunoglobulin Free Light Chains, [place] [address] [employer] Winston Camacho MD Plasma Oxyhemoglobin April 13, [...] the complete clinical context. Test Performed by: [facility] - [address] [address] Flow Coordinator: Amos Montero III, M.D. Plasma Hemoglobin performed at [facility], [address] [place] [address] [employer] Winston Camacho MD Urine Nqxt-3-Hzeempzx (%) April 13, 2014 9:15pm 5.6 % - Has specimen been collected/obtained? 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 Findings: Scattered ground glass and subpleural reticular opacity or fibrosis is again seen within the lungs. The overall pattern is similar to the comparison exam. Some areas of emphysema also noted. No new pulmonary nodules or masses. No consolidation, effusion or pneumothorax. No axillary lymphadenopathy. Mediastinal adenopathy is significantly improved. The largest remaining right paratracheal node on image number 24 measures 11 mm in short axis. Multiple prevascular, AP window, subcarinal and hilar nodes have decreased in size and are now not pathologically enlarged. The subcarinal node is markedly smaller and now difficult to measure. Atherosclerotic plaque in the aortic arch and great vessels. Prior pacemaker placement. Abdomen/pelvis: Multiple surgical clips in the upper abdomen near the GE junction. Unenhanced liver is stable. Spleen is absent. Hyperdense bilateral renal lesions are unchanged consistent with hyperdense cysts. Additional more simple appearing renal cysts are also noted. Retroperitoneal lymphadenopathy has resolved. No new or enlarging abdominal or pelvic lymphadenopathy. The bowel is stable and nonobstructed. Uterus is surgically absent. Bladder appears normal. Bone windows show no new lytic or blastic osseous lesion. Impression: Significant interval improvement in mediastinal adenopathy which is nearly resolved consistent with treatment response. No new or enlarging lymphadenopathy. . Procedures Procedure Status Date Provider(s) ASSAY OF CALCIUM completed 08/31/14 ASSAY OF PARATHORMONE completed 08/31/14 Encounters Encounter Location Date/Time Registered [facility] 08/31/14 8:58am Discharged [facility] 08/31/14 8:56am Registered Clinic [facility] 07/25/14 8:27am
--- OUTSIDE RECORDS SUMMARY | 2017-02-26 16:40 | XMS REPORT | Summary of Care ---
Author Author Chapito Muro Organization Unknown Address [address] [phone] Phone Unavailable Care Team Providers Care Wrinkle Chaser Name Role Phone Ferdinand Hammonds, Cece Unavailable [...] Immunization Name Dates Details Influenza Lot #: [id number] on: 02-Aug-2010 Influenza Lot #: [id number] on: 24-Aug-2012 Pneumo (Pneumovax) Lot #: [id number] on: 24-Aug-2012 Fluzone High-Dose 0.5 ML Intramuscular Suspension Prefilled Syringe Lot #: [id number] on: 25-Jul-2015 Tdap (Adacel) Lot #: [id number] on: 05-Nov-2015 Family History Name Dates Details [...] /HPF Range: 0-10 18-Aug-2016 10:59 URINE CULTURE [id number] Comments: WebNotes performed at: [facility] [address], [address] [place] [address], Business Enterprise Officer: Gigi Alberto D.O., MPHQuest Collection Date/Time: [id number] Results Received Date/Time: [id number] Reported Date/Time: FASTING:NOQuest performed at: [facility] [address], [address] [place] [address], Business Enterprise Officer: Gigi Alberto D.O., MPHQuest Collection Date/Time: [id number] Results Received Date/Time: [id number] Reported Date/Time: FASTING:NOQuest performed at: [facility], [address] [place] [address], [address] [place] [address], Business Enterprise Officer: Gigi Alberto D.O., MPHQuest Collection Date/Time: Results Received Date/Time: [id number] Reported Date/Time: FASTING:NO CULTURE, URINE, ROUTINE SEE NOTE (Abnormal) Comments: CULTURE, URINE, ROUTINE MICRO NUMBER: [id number] TEST STATUS: FINAL SPECIMEN SOURCE : URINE [...] low threshold) Range: >60 EST GFR, NON-AFR BRUNEIAN 28 ml/min (Below low threshold) Range: >60 [...] low threshold) Range: >60 EST GFR, NON-AFR BRUNEIAN 28 ml/min (Below low threshold) Range: >60 [...] 14:15 Appointment; Provider: Ry Maurer M.D. On 27-Aug-2016 [...] not documented On 06-Feb-2015 15:30 Appointment; Henry Menodza M.D. Encounter Diagnosis: Problem not documented On 12-Jan-2015 10:45 Appointment; Krunal Lennon M.D. Encounter Diagnosis: Problem not documented On 26-Dec-2014 15:30 Appointment; Stefan Streeter M.D. Encounter Diagnosis: Problem not documented On 04-Dec-2014 16:00 Appointment; Raphael Mcduffie M.D. Encounter Diagnosis: Problem not documented On 07-Nov-2014 13:30
--- OUTSIDE RECORDS SUMMARY | 2017-02-26 16:40 | XMS REPORT ---
Author Author GENERATED, SYSTEM Organization Unknown Address Unknown Phone Unavailable Care Team Providers Care Protozoologist Name Role Phone MD CORTEZ, [facility] [phone] Reason For Visit Reason for Visit from 07/21/2016 7:20 AM:* Pt Stated Reason for Adm : colonoscopy and EGD Chief Complaint ANEMIA/DARK STOOLS/ABDOMINAL PAIN,COLONOSCOPY Social History Social History from 07/21/2016 9:13 AM:* Tobacco Use? : Never Smoker Social History from 07/21/2016 7:20 AM:* Tobacco Use? : Never Smoker Functional Status Functional Status from 07/21/2016 9:07 AM:* LOC : Drowsy Functional Status from 07/21/2016 7:20 AM:* LOC : Alert * Oriented To : Person,Place,Time,Event * Weight Bearing Status : Full * Assist Level : Independent * # Assists : Independent Vital Signs Hospital Vital Signs from 07/21/2016 9:38 AM:* Height : 5/0 ft,in * Temperature : 97.8 F * Pulse : 60 * Respirations : 16 * BP : 148/69 Hospital Vital Signs from 07/21/2016 9:15 AM:* Height : 5/0 ft,in * Pulse : 60 * Respirations : 16 * BP : 149/65 Hospital Vital Signs from 07/21/2016 9:02 AM:* Height : 5/0 ft,in * Temperature : 97.9 F * Pulse : 63 * Respirations : 16 * BP : 120/59 Hospital Vital Signs from 07/21/2016 7:20 AM:* Weight : 51.7/ kg * Height : 5/0 ft,in Hospital Vital Signs from 07/21/2016 6:49 AM:* Weight : 51.7/ kg * Height : 5/0 ft,in * Temperature : 97.6 F * Pulse : 61 * Respirations : 18 * BP : 117/62 Results Hematology from 07/21/2016 9:30 AMWBC 16.3 [...] ANISOCYTOSIS 3+ STOMATOCYTES 1+ Problems Encounter Diagnosis * Fall Risk Status:Active. Additional Problems * Acute Pain Comment:Problem resolved by [facility] [employer] upon Discharge, Status :Resolved. * Anemia Comment:Problem resolved by [facility] [employer] upon Discharge, Status: Resolved. * Mobility Impairment Comment:Problem resolved by [facility] [employer] upon Discharge, Status:Resolved. Encounters Encounter Diagnosis * Fall Risk Status:Active. Plan of Care Follow-up Appointments from 07/21/2016 9:13 AM:* #1 Office appointment: : Dr. Maurer * #1 Date/Time : 08/04/2016 2:45 PM * Address # 1 : [facility]: [address], [place]- [phone] or Procedures * Completed Procedure Code: [id number] Procedure Name: not valued, on 06/21/2016 12 [...] to care for yourself at home from 07/21/2016 9:13 AM:* Discharge Activity : Do not engage in sports, heavy work or heavy lifting until your physician gives permission * Do not drive or operate machinery for: : 24 hours * Discharge Diet : As before hospitalization * Discharge Diet: : spicy or fatty foods may cause nausea * Discharge Wound Care : Notify your physician if the following develops: redness, swelling, drainage or color of drainage changes, odor or increased pain. * Call your doctor if: : Fever [...]
--- OUTSIDE RECORDS SUMMARY | 2017-02-26 16:40 | XMS REPORT | Summary of Care ---
Author Author Krunal Lennon M.D. Unknown Address Unknown Phone Unavailable Care Team Providers Care Wheel Cutter Name Role Phone Cece Streeter M.D. Unavailable [...] FOR NAUSEA * Quantity: 30 Refills: 0 Austyndemetris Chapito * Start 25-Jun-2016 Active Propranolol HCl - 40 MG Oral Tablet take 11/2 tablets twice daily * Quantity: 90 Refills: 1 Chapito Muro * Start 07-Mar-2015 Active Allopurinol 300 MG Oral Tablet TAKE 1 TABLET DAILY. * Quantity: 30 Refills: 3 AustynChapito willson * Start 15-Aug-2014 Active Plavix 75 [...] TABLET DAILY. * Quantity: 30 Refills: 3 AustynChapito willson * Start 25-Aug-2016 Active Injectafer 750 [...] Immunization Name Dates Details Influenza Lot #: [id number] on: 02-Aug-2010 Influenza Lot #: [id number] on: 24-Aug-2012 Pneumo (Pneumovax) Lot #: [id number] on: 24-Aug-2012 Fluzone High-Dose 0.5 ML Intramuscular Suspension Prefilled Syringe Lot #: [id number] on: 25-Jul-2015 Tdap (Adacel) Lot #: [id number] on: 05-Nov-2015 Fluzone High-Dose 0.5 ML Intramuscular Suspension Prefilled Syringe Lot #: [id number] on: 02-Sep-2016 Family History Name Dates Details [...] smoker Vital Signs Date Test Result Details 04-Nov-2016 13:49 BP Systolic 132 mm[Hg] Status: Comments: Location: ; Position: BP Diastolic 74 mm[Hg] Status: Comments: Location: ; Position: Heart Rate 66 /min Status: Comments: Location: ; Weight 104 lb Status: Body Mass Index Calculated 18.42 kg/m2 Status: Body Surface Area Calculated 1.46 m2 Status: Results Date Description Value Details 17-Oct-2016 10:44 [...] low threshold) Range: >60 EST GFR, NON-AFR SERBIAN 38 ml/min (Below low threshold) Range: >60 [...] Appointment; Provider: Chapito Muro On 02-Dec-2016 11:15 Instructions Name Dates Details Instructions not documented Encounters Appointment; Bruce Saunders M.D. Encounter Diagnosis: Problem [...] Problem not documented On 16-Oct-2015 13:30 Appointment; Madhia Dowling Encounter Diagnosis: Problem not documented On [...]
--- OUTSIDE RECORDS SUMMARY | 2017-02-26 16:41 | XMS REPORT | Summary of Care ---
Author Author Chapito Muro Organization Unknown Address [address] [place] [id number] Phone Unavailable Care Team Providers Care Nursing Home Social Worker Name Role Phone Cece Streeter M.D. [...] Immunization Name Dates Details Influenza Lot #: [id number] Administered on:02-Aug-2010 Influenza Lot #: [id number] Administered on:24-Aug-2012 Pneumo (Pneumovax) Lot #: [id number] Administered on:24-Aug-2012 Fluzone High-Dose 0.5 ML Intramuscular Suspension Prefilled Syringe Lot #: [id number] Administered on:25-Jul-2015 Tdap (Adacel) Lot #: [id number] Administered on:05-Nov-2015 Family History natural son* Name [...] m2 Status: Results Date Description Value Details 21-Jan-2016 09:44 MAMMOGRAM-SCREENING Comments: Exam Date: 01/16/2016 [...] low threshold) Range: >60 EST GFR, NON-AFR NIGERIEN 44 ml/min (Below low threshold) Range: >60 Comments: EST GFR is reported in ml/min per 1.73 m2 of body surface area. For -Guamanian, please multiple result by 1.2.----- GLUCOSE 108 [...] low threshold) Range: >60 EST GFR, NON-AFR NIGERIEN 44 ml/min (Below low threshold) Range: >60 Comments: EST GFR is reported in ml/min per 1.73 m2 of body surface area. For -Guamanian, please multiple result by 1.2.----- GLUCOSE 98 [...] Krunal Lennon On 15:15 * Appointment; Provider: [facility] On 16-Jan-2016 [...] not documented On 26-Dec-2014 15:30 Appointment; Stefan Stereter Encounter Diagnosis: Problem not documented On 04-Dec-2014 16:00 Appointment; Raphael Mcduffie Encounter Diagnosis: Problem not documented On 07-Nov-2014 13:30 Appointment; Krunal Lennon Encounter Diagnosis: Problem not documented On 22-Aug-2014 15:00 Appointment; Aidee Wilson Encounter Diagnosis: Problem not documented On 15-Aug-2014 14:30
--- OUTSIDE RECORDS SUMMARY | 2017-02-26 16:41 | XMS REPORT | Summary of Care ---
Author Author Chapito Muro Organization Unknown Address [address] [place] [phone] Phone Unavailable Care Team Providers Care Nuisance Animal Damage Control Agent Name Role Phone Ferdinand Hammonds, Cece Unavailable Unavailable Henry Mendoza M.D. Unavailable Unavailable Doug Mcduffie M.D. Unavailable Unavailable [...] Refills: 0 Stefan Streeter M.D.* Started 10-Oct-2013 ActivePotassium Chloride Summer ER 10 MEQ Oral Tablet Extended Release take 1 tab daily * Quantity: 120 Refills: 0 * Started 19-Jan-2014 ActiveVentolin HFA 108 (90 [...] Refills: 0 Raphael Mcduffie M.D.* Started 07-Nov-2014 ActiveFolic Acid 1 MG Oral Tablet Take [...] Refills: 3 Stefan Streeter M.D.* Started 10-Oct-2013 Active Allergies and Adverse Reactions Name [...] Immunization Name Dates Details Influenza Lot #: [id number] Administered on:02-Aug-2010 Influenza Lot #: [id number] Administered on:24-Aug-2012 Pneumo (Pneumovax) Lot #: [id number] Administered on:24-Aug-2012 Fluzone High-Dose 0.5 ML Intramuscular Suspension Prefilled Syringe Lot #: [id number] Administered on:25-Jul-2015 Tdap (Adacel) Lot #: [id number] Administered on:05-Nov-2015 Family History natural son* Name [...] m2 Status: Results Date Description Value Details 08-Oct-2015 13:10 BASIC METABOLIC PROFILE 1210 Comments: [...] low threshold) Range: >60 EST GFR, NON-AFR JAMAICAN 38 ml/min (Below low threshold) Range: >60 Comments: EST GFR is reported in ml/min per 1.73 m2 of body surface area. For -Fijian, please multiple result by 1.2.----- BUN:CREATININE RATIO [...] low threshold) Range: >60 EST GFR, NON-AFR JAMAICAN 31 ml/min (Below low threshold) Range: >60 Comments: EST GFR is reported in ml/min per 1.73 m2 of body surface area. For -Fijian, please multiple result by 1.2.----- BUN:CREATININE RATIO [...] low threshold) Range: >60 EST GFR, NON-AFR JAMAICAN 30 ml/min (Below low threshold) Range: >60 Comments: EST GFR is reported in ml/min per 1.73 m2 of body surface area. For -Fijian, please multiple result by 1.2.----- GLUCOSE 98 [...]
--- OUTSIDE RECORDS SUMMARY | 2017-02-26 16:42 | XMS REPORT | Summary of Care ---
Author Author Vanessa Sauer APRN Unknown Address [address] [place], [place] [phone] Phone Unavailable Care Team Providers Care Biometrics Head Name Role Phone Ferdinand Hammonds, Cece Unavailable [...] AFTER 05-09-16 * Quantity: 90 Refills: 0 AustynNew willsonemy [...] Quantity: 30 Refills: 3 BhaskarNewChapito * Start 15-Aug-2014 Active Plavix 75 MG [...] 30 Refills: 3 Bhaskar Chapito * Start 25-Aug-2016 Active Injectafer 750 MG/15ML [...] Immunization Name Dates Details Influenza Lot #: [id number] on: 02-Aug-2010 Influenza Lot #: [id number] on: 24-Aug-2012 Pneumo (Pneumovax) Lot #: [id number] on: 24-Aug-2012 Fluzone High-Dose 0.5 ML Intramuscular Suspension Prefilled Syringe Lot #: [id number] on: 25-Jul-2015 Tdap (Adacel) Lot #: [id number] on: 05-Nov-2015 Fluzone High-Dose 0.5 ML Intramuscular Suspension Prefilled Syringe Lot #: [id number] on: 02-Sep-2016 Family History Name Dates Details [...] low threshold) Range: >60 EST GFR, NON-AFR DANISH 38 ml/min (Below low threshold) Range: >60 [...] >60 ml/min Range: >60 EST GFR, NON-AFR DANISH 50 ml/min (Below low threshold) Range: >60 Comments: EST GFR is reported in ml/min per 1.73 m2 of body surface area. ----- BUN:CREATININE RATIO 37 GLUCOSE 98 mg/dL Range: 70-100 CALCIUM 8.5 mg/dL Range: 8.5-10.1 15:41 TROPONIN I 3451 TROPONIN I <0.04 ng/mL Range: .09 Comments: Called to LaurieVerified by Repeat Analysis<0.10 ng/ml=Negative for MI0.10-0.59 ng/ml=Indeterminate for MI0.60-1.50 ng/ml=Suggestive of [place]----- 15:43 CT AB/ PEL WITHOUT IV CONTRAST [...] /HPF Range: 0-10 21-Nov-2016 14:34 URINE CULTURE [id number] Comments: [facility] [address] [place] [address], [phone], Family Independence Case Manager: Gigi Alberto D.O., MPHQuest Collection Date/Time: [id number] Results Received Date/Time: [id number] Reported Date/Time: FASTING:NOQuest performed at: [facility], [address] [place] [address], [phone], Family Independence Case Manager: Gigi Alberto D.O., MPHQuest Collection Date/Time: [id number] Results Received Date/Time: [id number] Reported Date/Time: FASTING:NO CULTURE, URINE, ROUTINE SEE NOTE (Abnormal) Comments: CULTURE, URINE, ROUTINE MICRO NUMBER: [id number] TEST STATUS: FINAL SPECIMEN SOURCE : URINE [...]
--- OUTSIDE RECORDS SUMMARY | 2017-02-26 16:42 | XMS REPORT ---
Author Author GENERATED, SYSTEM Organization Unknown Address Unknown Phone Unavailable Care Team Providers Care Capacitor Pack Press Operator Name Role Phone MD CORTEZ, [facility] [phone] Reason For Visit Chief Complaint VERY WEAK/ UNABLE TO MOVE Social History Functional Status Vital Signs Results [...]
--- OUTSIDE RECORDS SUMMARY | 2017-02-26 16:42 | XMS REPORT ---
Author Author GENERATED, SYSTEM Organization Unknown Address Unknown Phone Unavailable Care Team Providers Care First Sampler Name Role Phone MD YEHUDA, CHINO PP [phone] Reason For Visit Reason for Visit from 12/25/2014 11:54 AM:* Pt Stated Reason for Adm : IVIG Chief Complaint IV,CVIDS Social History Functional Status Functional Status from 12/25/2014 11:54 AM:* LOC : Alert * Oriented To : Person,Place,Time,Event Vital Signs Hospital Vital Signs from 12/25/2014 3:05 PM:* Height : 5/0 ft,in * Pulse : 81 * BP : 142/70 Hospital Vital Signs from 12/25/2014 2:50 PM:* Height : 5/0 ft,in * Pulse : 78 * BP : 148/83 Hospital Vital Signs from 12/25/2014 2:35 PM:* Height : 5/0 ft,in * Pulse : 77 * BP : 141/73 Hospital Vital Signs from 12/25/2014 2:20 PM:* Height : 5/0 ft,in * Pulse : 76 * BP : 115/72 Hospital Vital Signs from 12/25/2014 2:05 PM:* Height : 5/0 ft,in * Pulse : 76 * BP : 111/65 Hospital Vital Signs from 12/25/2014 1:50 PM:* Height : 5/0 ft,in * Pulse : 79 * BP : 130/66 Hospital Vital Signs from 12/25/2014 1:35 PM:* Height : 5/0 ft,in * Pulse : 78 * BP : 129/65 Hospital Vital Signs from 12/25/2014 1:20 PM:* Height : 5/0 ft,in * Pulse : 77 * BP : 125/72 Hospital Vital Signs from 12/25/2014 1:05 PM:* Height : 5/0 ft,in * Pulse : 78 * BP : 128/53 Hospital Vital Signs from 12/25/2014 12:50 PM:* Height : 5/0 ft,in * Pulse : 70 * BP : 160/68 Hospital Vital Signs from 12/25/2014 12:35 PM:* Height : 5/0 ft,in * Pulse : 77 * BP : 142/76 Hospital Vital Signs from 12/25/2014 12:20 PM:* Height : 5/0 ft,in * Pulse : 75 * BP : 127/73 Hospital Vital Signs from 12/25/2014 12:05 PM:* Height : 5/0 ft,in * Pulse : 76 * BP : 137/62 Hospital Vital Signs from 12/25/2014 11:50 AM:* Height : 5/0 ft,in * Pulse : 80 * BP : 133/79 Hospital Vital Signs from 12/25/2014 11:15 AM:* Height : 5/0 ft,in * Temperature : 97.8 F * Pulse : 82 * Respirations : 20 * BP : 121/77 Results Chemistry from 12/25/2014 11:42 AMSODIUM 139 MMOL/L (136-145 MMOL/L) POTASSIUM 3.7 MMOL/L (3.5-5.1 MMOL/L) CHLORIDE 102 MMOL/L (98-107 MMOL/L) TCO2 32.0 MMOL/L (21.0-32.0 MMOL/L) ANION GAP 5.0 MMOL/L L (8.0-16.0 MMOL/L) BUN 33 MG/DL H (7-18 MG/DL) CREATININE 0.96 MG/DL H (0.43-0.83 MG/DL) BUN/CREATININE RATIO 34.4 H (9.1-17.0 ) GLUCOSE 106 MG/DL H (65-99 MG/DL) GFR EST NON AFR TRISTANIAN 55 ML/MIN GFRA EST AFR AMER 63 ML/MIN CALCIUM 9.7 MG/DL (8.5-10.1 MG/DL) BILIRUBIN TOTAL 0.24 MG/DL (0.20-1.00 MG/DL) TOTAL PROTEIN 7.0 GM/DL (6.4-8.2 GM/DL) ALBUMIN 3.3 GM/DL L (3.4-5.0 GM/DL) GLOBULIN 3.7 GM/DL H (2.3-3.5 GM/DL) A/G RATIO 0.9 MG/DL L (1.5-2.2 MG/DL) ALK PHOS 82 U/L (46-116 U/L) ALT (SGPT) 23 U/L (12-78 U/L) AST (SGOT) 31 U/L (15-37 U/L) Hematology from 12/25/2014 11:42 AMWBC 19.7 X10e3/UL H (3.6-11.2 X10e3/UL) RBC 3.52 X10e6/UL L (3.63-4.92 X10e6/UL) HEMOGLOBIN 11.3 G/DL (11.0-14.3 G/DL) HEMATOCRIT 35.6 % (31.2-41.9 %) MCV 101.0 FL H (79.0-98.0 FL) MCH 32.1 PG (27.0-33.0 PG) MCHC 31.7 G/DL L (32.0-36.0 G/DL) RDW 14.8 % (12.3-17.0 %) RDWSD 52.1 H (37.1-47.8 ) PLATELET 184 X10e3/UL (159-386 X10e3/UL) MPV 10.5 FL H (7.4-10.4 FL) MANUAL DIFF PERFORMED SEGS 71.0 % BANDS 2.0 % LYMPHOCYTES 16.0 % MONOCYTES 2.0 % EOSINOPHILS 8.0 % BASOPHILS 1.0 % ABSOLUTE NEUTROPHILS 14.38 X10e3/UL H (1.80-7.80 X10e3/UL) ABSOLUTE LYMPHOCYTES 3.15 X10e3/UL H (1.00-3.00 X10e3/UL) ABSOLUTE MONOCYTES 0.39 X10e3/UL (0.30-1.00 X10e3/UL) ABSOLUTE EOSINOPHILS 1.58 X10e3/UL H (0.00-0.50 X10e3/UL) ABSOLUTE BASOPHILS 0.20 X10e3/UL (0.00-0.20 X10e3/UL) NUCLEATED RBC MANUAL 1.0 /100 WBC (0.0-1.0 /100 WBC) POLYCHROMASIA 1+ MACROCYTIC 1+ TARGET CELLS 1+ STOMATOCYTES 1+ OVALOCYTES 1+ Reference Lab from 12/25/2014 11:42 AMIMMUNOGLOBULIN G 564 mg/dL L (700-1600 mg/dL ) Problems Encounter [...]
--- OUTSIDE RECORDS SUMMARY | 2017-02-26 16:42 | XMS REPORT | Summary of Care ---
Author Author Erasto Hammonds, Ry García Unknown Address Unknown Phone Unavailable Care Team Providers Care Sole Buffer Name Role Phone Cece Streeter M.D. Unavailable [...] Quantity: 120 Refills: 11 Ferdinand Hammonds, Stefan Cece * Start 23-Nov-2012 Active Potassium Chloride [...] Hammonds Stefan Zhao * Start 01-Nov-2015 Active DULoxetine HCl - [...] ALLERGY SYMPTOMS * Quantity: 1 Refills: 3 EdNew benitezemy * Start 09-Jul-2016 Active Feraheme 510 MG/17ML Intravenous Solution Give two doses IV one week apart * Quantity: 34 Refills: 0 Krunal Lennon M.D. * Start 15-Jul-2016 Active Digoxin 125 MCG Oral Tablet Take one tablet by mouth daily * Quantity: 30 Refills: 1 Bhaskar Chapito * Start 09-Jul-2016 Active PEG-3350/Electrolytes 236 GM Oral Solution Reconstituted TAKE DIRECTED FOR COLONOSCOPY * Quantity: 1 Refills: 0 Ry Maurer M.D. * Start 18-Jul-2016 End 21-Jul-2016 Active 4000 ML Bottle Allergies and Adverse Reactions Name Dates [...] Immunization Name Dates Details Influenza Lot #: [id number] on: 02-Aug-2010 Influenza Lot #: [id number] on: 24-Aug-2012 Pneumo (Pneumovax) Lot #: [id number] on: 24-Aug-2012 Fluzone High-Dose 0.5 ML Intramuscular Suspension Prefilled Syringe Lot #: [id number] on: 25-Jul-2015 Tdap (Adacel) Lot #: [id number] on: 05-Nov-2015 Family History Name Dates Details [...] low threshold) Range: >60 EST GFR, NON-AFR CUBAN 32 ml/min (Below low threshold) Range: >60 [...] 524 pg/mL Range: 211-911 04-Jul-2016 12:21 Haptoglobin [id number] Comments: ORDER IN BOOK UNDER Test performed at: [DA] [facility] [address] , [place], [address], , Anodizer: KEILA Carranza MD HAPTOGLOBIN 215 mg/dL (Above high threshold) Range: 34-200 05-Jul-2016 09:28 VIVIAN PE and FLC Serum [id number] Comments: ORDER IN BOOK UNDER ing performed at: [DA] [facility] [place], [address] , [place], [address], , Anodizer: KEILA Carranza MD IMMUNOGLOBULIN G, QN, SERUM 548 mg/dL (Below low threshold) Range: 700- 1600 IMMUNOGLOBULIN A, QN, SERUM 25 mg/dL (Below low threshold) Range: 64-422 IMMUNOGLOBULIN M, QN, SERUM <5 mg/dL (Below low threshold) Range: 26-217 Comments: Verified by repeat analysis----- PROTEIN, TOTAL, SERUM 5.7 g/dL (Below low threshold) Range: 6.0-8.5 ALBUMIN 3.0 g/dL Range: 2.9-4.4 DAHRG-0-LAPOIRFB 0.4 g/dL Range: 0.0-0.4 FTAJB-2-MXWMGFEE 0.9 g/dL Range: 0.4-1.0 BETA GLOBULIN 1.0 g/dL Range: 0.7-1.3 GAMMA GLOBULIN 0.5 g/dL Range: 0.4-1.8 M-SPIKE Not Observed g/dL Range: Not Observed GLOBULIN, TOTAL 2.7 g/dL Range: 2.2-3.9 A/G RATIO 1.2 Range: 0.7-1.7 IMMUNOFIXATION RESULT, SERUM Comment Comments: An apparent normal immunofixation pattern.----- PLEASE NOTE: Comment Comments: Protein electrophoresis scan will follow via computer,mail, or instrument installer delivery.----- FREE KAPPA LT CHAINS,S 15.27 mg/L [...] low threshold) Range: >60 EST GFR, NON-AFR CUBAN 30 ml/min (Below low threshold) Range: >60 [...] Range: 2.6-4.7 15-Jul-2016 15:38 Cortisol - AM [id number] Comments: Testing performed at: [DA] [facility] [address], [place], [address], Phone: , Anodizer: KEILA Carranza MD CORTISOL - AM 33.5 [...] 11:15 Appointment; Provider: Ry Maurer M.D. On 21-Jul-2016 08:00 Interventions Provided Medication Changes* PEG-3350/Electrolytes 236 GM Oral Solution Reconstituted - Start Instructions Name Dates Details Instructions [...] not documented On 16-Oct-2015 13:30 Appointment; Madiha oDwling Encounter Diagnosis: Problem not documented On 25-Jul-2015 [...]
--- OUTSIDE RECORDS SUMMARY | 2017-02-26 16:43 | XMS REPORT ---
Author Author GENERATED, SYSTEM Organization Unknown Address Unknown Phone Unavailable Care Team Providers Care Adjustment Clerk Name Role Phone MD YEHUDA, CHINO PP [phone] Reason For Visit Reason for Visit from 07/11/2015 11:00 AM:* Pt Stated Reason for Adm : Privigen infusion Chief Complaint IV,CVIDS Social History Functional Status Functional Status from 07/11/2015 11:00 AM:* LOC : Alert * Oriented To : Person,Place,Time,Event Vital Signs Hospital Vital Signs from 07/11/2015 3:30 PM:* Height : 5/0 ft,in * Pulse : 60 * Respirations : 18 * BP : 152/81 Hospital Vital Signs from 07/11/2015 3:15 PM:* Height : 5/0 ft,in * Pulse : 62 * Respirations : 18 * BP : 140/82 Hospital Vital Signs from 07/11/2015 3:00 PM:* Height : 5/0 ft,in * Pulse : 60 * Respirations : 18 * BP : 110/84 Hospital Vital Signs from 07/11/2015 2:45 PM:* Height : 5/0 ft,in * Pulse : 58 * Respirations : 18 * BP : 110/54 Hospital Vital Signs from 07/11/2015 2:30 PM:* Height : 5/0 ft,in * Pulse : 60 * Respirations : 18 * BP : 119/60 Hospital Vital Signs from 07/11/2015 2:15 PM:* Height : 5/0 ft,in * Pulse : 58 * Respirations : 18 * BP : 111/63 Hospital Vital Signs from 07/11/2015 2:00 PM:* Height : 5/0 ft,in * Pulse : 59 * Respirations : 18 * BP : 113/64 Hospital Vital Signs from 07/11/2015 1:45 PM:* Height : 5/0 ft,in * Pulse : 59 * Respirations : 18 * BP : 113/64 Hospital Vital Signs from 07/11/2015 1:00 PM:* Height : 5/0 ft,in * Pulse : 59 * Respirations : 18 * BP : 100/56 Hospital Vital Signs from 07/11/2015 12:45 PM:* Height : 5/0 ft,in * Pulse : 59 * Respirations : 18 * BP : 99/58 Hospital Vital Signs from 07/11/2015 12:30 PM:* Height : 5/0 ft,in * Pulse : 55 * Respirations : 18 * BP : 116/48 Hospital Vital Signs from 07/11/2015 12:15 PM:* Height : 5/0 ft,in * Pulse : 60 * Respirations : 18 * BP : 131/64 Hospital Vital Signs from 07/11/2015 11:45 AM:* Height : 5/0 ft,in * Pulse : 59 * Respirations : 18 * BP : 122/71 Hospital Vital Signs from 07/11/2015 11:30 AM:* Height : 5/0 ft,in * Pulse : 59 * Respirations : 18 * BP : 127/70 Hospital Vital Signs from 07/11/2015 11:15 AM:* Height : 5/0 ft,in * Pulse : 59 * Respirations : 18 * BP : 128/72 Hospital Vital Signs from 07/11/2015 11:05 AM:* Height : 5/0 ft,in * Temperature : 98.2 F * Pulse : 82 * Respirations : 18 * BP : 132/86 Results Chemistry from 07/11/2015 11:08 AMSODIUM 139 MMOL/L (136-145 MMOL/L) POTASSIUM 3.9 MMOL/L (3.5-5.1 MMOL/L) CHLORIDE 99 MMOL/L (98-107 MMOL/L) TCO2 36.4 MMOL/L H (21.0-32.0 MMOL/L) ANION GAP 3.6 MMOL/L L (8.0-16.0 MMOL/L) BUN 28 MG/DL H (7-18 MG/DL) CREATININE 1.15 MG/DL H (0.55-1.02 MG/DL) BUN/CREATININE RATIO 24.3 H (9.1-17.0 ) GLUCOSE 105 MG/DL H (65-99 MG/DL) GFR EST NON AFR TUVALUAN 44 ML/MIN GFRA EST AFR AMER 51 ML/MIN CALCIUM 9.9 MG/DL (8.5-10.1 MG/DL) BILIRUBIN TOTAL 0.29 MG/DL (0.20-1.00 MG/DL) TOTAL PROTEIN 7.2 GM/DL (6.4-8.2 GM/DL) ALBUMIN 3.4 GM/DL (3.4-5.0 GM/DL) GLOBULIN 3.8 GM/DL H (2.3-3.5 GM/DL) A/G RATIO 0.9 MG/DL L (1.5-2.2 MG/DL) ALK PHOS 81 U/L (46-116 U/L) ALT (SGPT) 22 U/L (16-63 U/L) AST (SGOT) 35 U/L (15-37 U/L) Hematology from 07/11/2015 11:08 AMWBC 17.5 X10e3/UL H (3.6-11.2 X10e3/UL) RBC 3.35 X10e6/UL L (3.63-4.92 X10e6/UL) HEMOGLOBIN 11.4 G/DL (11.0-14.3 G/DL) HEMATOCRIT 35.4 % (31.2-41.9 %) MCV 105.9 FL H (79.0-98.0 FL) MCH 34.0 PG H (27.0-33.0 PG) MCHC 32.1 G/DL (32.0-36.0 G/DL) RDW 14.8 % (12.3-17.0 %) RDWSD 53.8 H (37.1-47.8 ) PLATELET 185 X10e3/UL (159-386 X10e3/UL) MPV 10.9 FL H (7.4-10.4 FL) MANUAL DIFF PERFORMED SEGS 81.0 % BANDS 0.0 % LYMPHOCYTES 17.0 % MONOCYTES 1.0 % EOSINOPHILS 1.0 % BASOPHILS 0.0 % ABSOLUTE NEUTROPHILS 14.18 X10e3/UL H (1.80-7.80 X10e3/UL) ABSOLUTE LYMPHOCYTES 2.98 X10e3/UL (1.00-3.00 X10e3/UL) ABSOLUTE MONOCYTES 0.18 X10e3/UL L (0.30-1.00 X10e3/UL) ABSOLUTE EOSINOPHILS 0.18 X10e3/UL (0.00-0.50 X10e3/UL) ABSOLUTE BASOPHILS 0.00 X10e3/UL (0.00-0.20 X10e3/UL) MACROCYTIC 1+ Reference Lab from 07/11/2015 11:08 AMIMMUNOGLOBULIN G 784 mg/dL (700-1600 mg/dL) Problems Encounter Diagnosis No [...]
--- OUTSIDE RECORDS SUMMARY | 2017-02-26 16:43 | XMS REPORT | Summary of Care ---
Author Author Krunal Lennon M.D. Unknown Address [address] [place], [place] [id number] Phone Unavailable Care Team Providers Care Live In Housekeeper Nanny Name Role Phone Ferdinand Hammonds, Cece Unavailable [...] History of Aortic Valve Replacement HEMOGRAM 7305 Ordered:08-Oct-2015 Parathyroid Hormone Intact 3101 Ordered:08-Oct-2015 RENAL PROFILE 1240 Ordered:08-Oct-2015 Immunization Name Dates Details Influenza Lot #: [id number] Administered on:02-Aug-2010 Influenza Lot #: [id number] Administered on:24-Aug-2012 Pneumo (Pneumovax) Lot #: [id number] Administered on:24-Aug-2012 Fluzone High-Dose 0.5 ML Intramuscular Suspension Prefilled Syringe Lot #: [id number] Administered on:25-Jul-2015 Family History natural son* Name [...] to report Results Date Description Value Details 17-Sep-2015 12:29 [...] low threshold) Range: >60 EST GFR, NON-AFR BHUTANESE 32 ml/min (Below low threshold) Range: >60 Comments: EST GFR is reported in ml/min per 1.73 m2 of body surface area. For -Kyrgyz, please multiple result by 1.2.----- GLUCOSE 100 [...] Diff 7150 Comments: ORDER IN BOOK UNDER ual differential indicated. WBC 12.9 K/uL (Above high [...] low threshold) Range: >60 EST GFR, NON-AFR BHUTANESE 38 ml/min (Below low threshold) Range: >60 Comments: EST GFR is reported in ml/min per 1.73 m2 of body surface area. For -Kyrgyz, please multiple result by 1.2.----- BUN:CREATININE RATIO 22 (Better) GLUCOSE 100 mg/dL (Better) Range: 70-100 CALCIUM 9.3 mg/dL (Better) Range: 8.5-10.1 Plan of Care Planned Observations* Name Dates Details Planned Goals not documented Goal Planned Encounters* Appointment; Provider: Stefan Streeter On 01-Nov-2015 14:00 * Appointment; Provider: Krunal Lennon On 16-Oct-2015 13:30 * Appointment; Provider: Benigno Holt On 07-Jun-2012 14:00 * Appointment; Provider: Bruce Saunders On 11:45 * Appointment; Provider: Raphael Mcduffie On 11-Dec-2010 09:15 * Appointment; Provider: Mikal Felipe On 21-Mar-2008 13:15 Instructions * Instructions not documented Encounters Appointment; Madiha Dowling Encounter Diagnosis: Problem not [...]
--- OUTSIDE RECORDS SUMMARY | 2017-02-26 16:43 | XMS REPORT | Continuity of Care Document ---
Author Author [facility] Organization [facility] Address Unknown Phone Unavailable Support Name Relationship Address Phone RONY KERR MD Caregiver [facility] [address] [place] [address] Unavailable ROLAND CABRAL DO Caregiver [facility] [address] [place] [address] ELISABET TERAN Next Of Kin [address] [place] [address] Insurance Providers Payer Name Policy Number Subscriber Name Relationship Medicare [id number] Genesis Duque 19 Self [facility] [place] Plan [id number] Genesis Duque 18 Self Advance Directives Directive [...] Active Fever Unknown Active Immunodeficiency Unknown Active Surgical Problems Problem Onset Date [...] smoker 04/27/2014 6:52pm Hx Alcohol Use No 06/19/2014 6:11pm Has the pt used tobacco in the last 12 months No 04/27/2014 6:52pm Hospital Discharge Instructions Instructions: Care Instructions: Reason for Hospitalization: Severe Anemia Discharge Diet: As per pre-hospitalization Discharge Activity: As per pre-hospitalization Follow Up Appointments: Dr. Hurst - April at 8:[address] Cabral - April at 1:45 pm Patient Instructions: Lab - CBC and CMP drawn at [facility] prior appointment with Dr Cabral. Notify Physician If: Fatigue, weakness, dark stools, gastrointestinal bleeding occur. Condition at time of discharge: Good Care Plan Discharge Patient: Goal: Understand discharge plan Patient Instructions: see patient instructions Care Plan Discharge Patient: Goal: Understand discharge plan Maximum functional status Patient Instructions: see patient instructions rate >100, confusion, or persistent nausea/vomitting. 2.Severe pain, swelling, redness, or warmth in either of your legs. 3.During office hours, call [phone] 4. After hours, please call [facility] at [phone], and have the street cleaning equipment operator page your Surgeon IN THE EVENT OF AN EMERGENCY, seek medical care at the nearest Emergency Room Condition at time of discharge: Good Plan of Care Discharge Date 05/03/14 6:17pm Instructions/Education Provided [facility] Congestive Heart Failure Anemia of Chronic Disease Prescriptions See Medications Section Functional Status Query Response Date Recorded Physical Hygiene Self June 19, 2014 6:11pm Disabilities Hearing Visual May 03, 2014 5:22pm Devices Used Dentures Glasses Walker April 19, 2014 2:13pm Dressing Self April 19, 2014 2:13pm Ambulation Self May 03, 2014 5:22pm Diet Self April 19, 2014 2:13pm Mental Status Alert Oriented May 03, 2014 5:22pm Disabilities Hearing Visual May 03, 2014 5:22pm Devices Used Dentures Glasses Walker April 19, 2014 2:13pm Physical Hygiene Self June 19, 2014 6:11pm Dressing Self April 19, 2014 2:13pm Ambulation Self May 03, 2014 5:22pm Diet Self April 19, 2014 2:13pm Allergies, Adverse Reactions, Alerts Allergen Type Severity Reaction Status Last Updated Cefuroxime Allergy Mild GI upset Active 06/19/14 Axetil Allergy Mild GI Upset Active 04/10/14 Immunizations Name Given Type Hx Influenza Vaccination Y fall Historical Hx Pneumococcal Vaccination Y "I DON'T REMEMBER WHAT YEAR" Historical Hx Influenza Vaccination Y fall Historical Vital Signs Acute Vital Signs Vital Response Date/Time Temperature (Fahrenheit) 98.6 deg F (96.8 - 99.1) Temperature (Calculated Celsius) 37.18826 degrees C (36.0 - 37.3) Pulse Rate (adult) 74 bpm (60 - 100) Respiratory Rate 20 breaths/min (10 - 20) O2 Sat by Pulse Oximetry 98 % (90 - 100) Oxygen Flow Rate 2 L/min Blood Pressure 146/69 mm Hg Height 5 ft 1 in Weight 112 lb Body Mass Index 21.0 kg/m^2 Results Test Source Date Result Interp. Ref. Range Comments Absolute Reticulocyte Count June 15, 2014 10:15am 0.1014 T/MM3 H 0.0300-0.0900 Activated Partial Thromboplast Time May 01, 2014 4:20am 26.1 SEC N 24- 36 Ordering r/o VTE No Alanine Aminotransferase (ALT/SGPT) June 19, 2014 6:35pm 21 U/L N 9- 52 Albumin June 19, 2014 6:35pm 3.9 G/DL N 3.5-5.0 Albumin/Globulin Ratio June 19, 2014 6:35pm 1.5 RATIO N 1.1-2.2 Alkaline Phosphatase June 19, 2014 6:35pm 79 U/L N 38-126 Lchbn-5-Fkacziaus May 11, 2014 8:50am 0.6 g/dL H - ORDERED BY DR FORD Agrub-2-Xiszpvyxn (%) May 11, 2014 8:50am 10.4 % H - ORDERED BY DR FORD Oowsg-0-Ytopqavyh May 11, 2014 8:50am 0.9 g/dL - ORDERED BY DR FORD Pnepf-9-Ccjjagjhc (%) May 11, 2014 8:50am 16.0 % - ORDERED BY DR FORD Anion Gap June 19, 2014 6:35pm 9 MEQ/L N 5-15 Anisocytosis June 08, 2014 8:50am 1+ - Aspartate Amino Transf (AST/SGOT) June 19, 2014 6:35pm 35 U/L N 14-36 BUN/Creatinine Ratio June 19, 2014 6:35pm 22 RATIO N 6-26 Band Neutrophils # June 01, 2014 8:40am 0.3 T/MM3 - Band Neutrophils % June 01, 2014 8:40am 2.0 % N 0-6 Basophils # (Auto) June 15, 2014 10:15am 0.1 T/MM3 N 0-0.2 Basophils # (Manual) April 28, 2014 10:43am 0.2 T/MM3 N 0-0.2 Basophils % (Manual) April 28, 2014 10:43am 1.0 % N 0-2 Basophils (%) (Auto) June 15, 2014 10:15am 0.8 % N 0-2 Blood Smear Pathologist Review May 01, 2014 4:20am Sent for review - Blood Urea Nitrogen June 19, 2014 6:35pm 22.0 MG/DL H 7-17 C-Reactive Protein April 10, 2014 1:32pm 70.1 MG/L H 0-9 Calcium Level June 19, 2014 6:35pm 9.9 MG/DL N 8.4-10.2 Calculated Osmolality June 19, 2014 6:35pm 274 MOSM/KG N 261-280 Carbon Dioxide Level June 19, 2014 6:35pm 37 MEQ/L H 22-30 Chloride Level June 19, 2014 6:35pm 94 MEQ/L L 98-107 Cold Agglutinin Titer April 28, 2014 10:43am Negative - Conjugated Bilirubin April 28, 2014 7:55pm 0.00 MG/DL N 0.00-0.30 COMMENT TO BE TAKEN WITH NEXT BLOOD DRAW Corrected White Blood Count April 30, 2014 4:35am 18.2 T/MM3 H 4.5-11.0 Creatine Kinase MB April 28, 2014 10:45pm 0.7 NG/ML N 0-3.4 Creatinine June 19, 2014 6:35pm 1.0 MG/DL N 0.7-1.2 D-Dimer May 01, 2014 4:20am 747 NG/ML H 0-230 <224 NG/ML=PRESUMPTIVE NEGATIVE FOR PE OR DVT>224 NG/ML=ADDITIONAL EVALUATION FOR PE OR DVT RECOMMENDED Eosinophils # (Auto) June 15, 2014 10:15am 0.6 T/MM3 H 0-0.5 Eosinophils # (Manual) June 19, 2014 6:35pm 0.9 T/MM3 H 0-0.5 Eosinophils % (Manual) June 19, 2014 6:35pm 5.0 % H 0-4 Eosinophils (%) (Auto) June 15, 2014 10:15am 4.4 % H 0-4 Erythrocyte Sedimentation Rate April 10, 2014 1:32pm > 100 MM/HR H 0-20 Erythropoietin April 11, 2014 5:59am 17.9 mIU/mL - Reference Range: 2.6 - 18.5 Test Performed by: [place] [id number] Ladies Underwear Operator: Amos Montero III, M.D. Erythropoietin performed at [facility], [address] [place] [address] Track Walker MD Hay Zhu III April 11, 2014 8:00pm 464 NG/ML H [...] % - Immunoelectrophoresis, no IMQ performed at [facility], [address] [place] [address] Track Walker Leonidas Camacho MD Gamma Glutamyl Transpeptidase April 28, 2014 10:43am 120 U/L H 8-78 Globulin June 19, 2014 6:35pm 2.6 G/DL N 2.4-3.6 Glucose Level June 19, 2014 6:35pm 130 MG/DL H 65-110 Haptoglobin May 11, 2014 8:50am 268 mg/dL H - Haptoglobin performed at [facility], [address] [place], [place] [address]Medical Director Leonidas Camacho MD Hematocrit June 19, 2014 6:35pm 33.2 % L 36-46 Hemoglobin June 19, 2014 6:35pm 10.1 GM/DL L 12-16 Hemoglobin A1c April [...] 5:59am 5.6 umol/L - Homocysteine performed at [facility], [address] [place], [place] [address]Medical Director Leonidas Camacho MD Clarke-Marydel Bodies April 27, 2014 7:35pm 1+ - [...] Reference Range:767 - 1590 Test Performed by: [place] [address] Ladies Underwear Operator: Amos Montero III, M.D. Immunoglobulin G1 June 01, 2014 10:00am 684 mg/dL - Reference Range :341 - 894 Test Performed by: [place] [address] Ladies Underwear Operator: Amos Montero III, M.D. Immunoglobulin G2 June 01, 2014 10:00am 248 mg/dL - Reference Range :171 - 632 Immunoglobulin G3 June 01, 2014 10:00am 38.7 mg/dL - Reference Range:18.4 - 106.0 Test Performed by: [place] [address] Ladies Underwear Operator: Amos Montero III, M.D. IgG Subclasses [place] [address] Track Walker Winston Camacho MD Reference Range: 18.4 - 106.0 Test Performed by: [place] [address] Ladies Underwear Operator: Amos Montero III, M.D. --- 06/03/14 0940 --- IGGSUB3 previously reported as: 38.7 mg/dL Reference Range: 18.4 - 106.0 Test Performed by: [place] [address] Ladies Underwear Operator: Amos Montero III, M.D. IgG Sub[place] [address] Track Walker Winston Camacho MD Immunoglobulin G4 June 01, 2014 10:00am 8.5 mg/dL - Reference Range :2.4 - 121.0 Test Performed by: [facility] [address] [place] [address] Ladies Underwear Operator: Amos Montero III, M.D. IgG Subclasses performed at [facility], [address] [place] [address] Track Walker Winston Camacho MD Immunoglobulin M May 11, [...] Reference Range 5.5% - 12.7%.Testing performed at [place], [place] Lactate Dehydrogenase June 15, 2014 10:15am 1077 U/L H 313-618 Large Platelets June 08, 2014 8:50am Few - Lymphocytes # (Auto) June 15, 2014 10:15am 2.1 T/MM3 N 1-4.8 Lymphocytes # (Manual) June 19, 2014 6:35pm 2.5 T/MM3 N 1-4.8 Lymphocytes % (Manual) June 19, 2014 6:35pm 14.0 % L 23-45 Lymphocytes (%) (Auto) June 15, 2014 10:15am 15.7 % L 23-45 Macrocytosis April 18, 2014 8:15am 1+ - Magnesium Level May 04, 2014 9:05am 2.0 MG/DL N 1.6-2.3 Mean Corpuscular Hemoglobin June 19, 2014 6:35pm 30.3 UUG N 26-34 Mean Corpuscular Hemoglobin Concent June 19, 2014 6:35pm 30.4 GM/DL L 31-37 Mean Corpuscular Volume June 19, 2014 6:35pm 99.7 UM3 N 80-100 Mean Platelet Volume June 19, 2014 6:35pm 11.1 UM3 N 9.4-12.4 Metamyelocytes # April 29, 2014 4:19am 0.2 T/MM3 - Metamyelocytes % April 29, 2014 4:19am 1.0 % H 0-0 Methylmalonic Acid April 11, 2014 5:59am 0.15 nmol/mL - Test Performed by:[place] [address] Ladies Underwear Operator: Amos Montero III, M.D. Methylmalonic Acid, Serum performed at [facility], [address] [place] [address] Track Walker Winston Camacho MD Monocytes # (Auto) June 15, 2014 10:15am 1.3 T/MM3 H 0-0.8 Monocytes # (Manual) June 19, 2014 6:35pm 0.4 T/MM3 N 0-0.8 Monocytes % (Manual) June 19, 2014 6:35pm 2.0 % N 0-9.0 Monocytes (%) (Auto) June 15, 2014 10:15am 9.4 % H 0-9.0 Mycoplasma pneumoniae IgG Antibody [...] with M. pneumoniae. Mycoplasma Antibodies performed at [place] [address] [facility] [place] [address] Track Walker Leonidas Camacho MD Myelocytes # April 16, 2014 5:25am 0.2 T/MM3 - Myelocytes % April 16, 2014 5:25am 1.0 % H 0-0 Neutrophils # (Auto) June 15, 2014 10:15am 9.2 T/MM3 H 1.8-7.7 Neutrophils # (Manual) June 19, 2014 6:35pm 13.9 T/MM3 H 1.8-7.7 Neutrophils % (Manual) June 19, 2014 6:35pm 79.0 % H 33-66 Neutrophils (%) (Auto) June 15, 2014 10:15am 69.4 % H 33-66 Nucleated Red Blood Cells May 04, 2014 9:05am 2 - Ovalocytes April 17, 2014 5:15am 1+ - Percent Iron Saturation April 11, 2014 8:00pm 8 % L 9-55 COMMENT with next troponin draw. Percent Reticulocyte Count June 15, 2014 10:15am 3.2 % H 0.6-1.7 Phosphorus Level May 03, 2014 4:40am 5.1 MG/DL H 2.5-4.5 Platelet Count June 19, 2014 6:35pm 389 T/MM3 N 130-400 Poikilocytosis June 08, 2014 8:50am 1+ - Potassium Level June 19, 2014 6:35pm 3.9 MEQ/L N 3.6-5 Prothromb Time International Ratio May 01, 2014 4:20am 1.03 N 0.81- 1.09 THERAPUTIC RANGE=2.00-3.00 FOR ANTI-THROMBOSIS THERAPUTIC RANGE=2.50- 3.50 FOR IMPLANTED VALVE RDW Standard Deviation June 19, 2014 6:35pm 58.9 FL H 36.9-50.2 Red Blood Count June 19, 2014 6:35pm 3.33 M/MM3 L 4.00-5.20 Reference Lab Test Name April 13, 2014 8:10am Sent out - Reticulocyte Hgb Content (CHr) June 15, 2014 10:15am 25.2 PG L 30.8- 36.6 Schistocytes May 04, 2014 9:05am 1+ - Sodium Level June 19, 2014 6:35pm 140 MEQ/L N 134-144 Stomatocytes April 27, 2014 7:35pm 2+ - Stool Occult Blood May 02, 2014 10:30am Negative - Has specimen been collected/obtained? YCOMMENT 2 OF 3 Target Cells April 27, 2014 7:35pm 1+ - Thyroid Stimulating Hormone (TSH) April 10, 2014 12:46pm 1.25 MIU/L N 0.47-4.68 COMMENT add to blood already drawn in lab. Total Bilirubin June 19, 2014 6:35pm 0.40 MG/DL N 0.20-1.30 Total Creatine Kinase April 28, 2014 10:45pm < 20 U/L L 30-135 Total Iron Binding Capacity April 11, 2014 8:00pm 297 UG/DL N 261-497 COMMENT with next troponin draw. Total Protein June 19, 2014 6:35pm 6.5 G/DL N 6.3-8.2 Troponin I June 01, 2014 10:00am 0.022 ng/ml N 0-0.12 Unconjugated Bilirubin April 28, 2014 7:55pm 0.40 MG/DL N 0.00-1.10 COMMENT TO BE TAKEN WITH NEXT BLOOD DRAW Uric Acid June 15, 2014 10:15am 4.6 MG/DL N 2.5-7.5 Urine Albumin (%) April 13, 2014 9:15pm 72.1 % - Has specimen been collected/obtained? YCOMMENT 24 hour urine Urine Potwz-1-Muvglwfdt (%) April 13, 2014 9:15pm 6.8 % - Has specimen been collected/obtained? YCOMMENT 24 hour urine Urine Qmphq-5-Guetmeusu (%) April 13, 2014 9:15pm 8.9 % [...] Hr - Protein electrophoresis, Urine performed at [facility], [address] [place] [address] Track Walker Leonidas Camacho MD Urine Collection Time April [...] % - Eosinophil Count, Urine performed at [facility], [address] [place] [address] Track Walker Leonidas Camacho MD Urine Gamma Globulin (%) April 13, 2014 9:15pm 6.6 % - Has specimen been collected/obtained? YCOMMENT 24 hour urine Urine Glucose (UA) June 19, 2014 6:58pm Negative - Has specimen been collected/obtained? Y Urine Hemosiderin April 27, 2014 9:20pm Negative - Test Performed by: [facility] [place] [address] Ladies Underwear Operator: Amos Montero III, M.D. Hemosiderin, Urine performed at [facility], [address] [place] [address] Track Walker Winston Camacho MD Urine Hyaline Casts June [...] Has specimen been collected/obtained? Y Urine Specific [place] June 19, 2014 6:58pm 1.020 - Has specimen been collected/obtained? Y Urine Squamous Epithelial Cells June 19, 2014 6:58pm 5-10 - Has specimen been collected/obtained? Y Urine Total Protein April 13, 2014 9:15pm 32 mg/dL H - Protein electrophoresis, Urine performed at [facility], [facility] [place] [address] Track Walker Leonidas Camacho MD Urine Total Protein 24 [...] PG/ML N 239-931 White Blood Count June 19, 2014 6:35pm 17.6 T/MM3 H 4.5-11.0 Chemistry Specimen Hemolysis June 19, 2014 6:35pm < 15 0-25 0-25: No Hemolysis.26-70: Slight [...] can falsely decrease Phenytoin. Recommend specimen recollection. 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 Kris Gonzalez M.D. 13:43 04/12/2014 * Findings: Monoclonal B-Cell Population: [place] description and % total cells: CD45 vs SSC; CD19 vs SSC; about 2% of the total cells. Phenotype: The monoclonal B-cells are brightly CD45+; moderately CD19+/CD20+/FMC7+/Surface Lambda+; trace dim CD11c+/CD38+; negative for CD10, CD5, CD103, CD25 and Surface [place]. These B-cells comprise about 9% of the gated lymphocytes. * Lymphocytes: [place] description and % total cells: CD45 vs [...] 18, 2014 8:15am Few - Turbidity June 19, 2014 6:35pm < 20 0-20 Reactive Lymphocytes % May 02, 2014 4:52am 1.0 % H 0-0 Glomerular Filtration Rate Calc June 19, 2014 6:35pm 53 - Serum Total Protein May 11, 2014 8:50am 5.5 g/dL L - Immunoelectrophoresis, no IMQ performed at [facility], [address] [place] [address] Track Walker Leonidas Camacho MD Free Jerusalem/Lambda Light Chain Ratio May 11, 2014 8:50am 0.8682 - Reference Range:0.2600-1.65 Test Performed by: [place] [address] Ladies Underwear Operator: Amos Montero III, M.D. Immunoglobulin Free Light Chains performed at [facility], [address] [place] [address] Track Walker Winston Camacho MD Reactive Lymphocytes # May 02, 2014 4:52am 0.1 T/MM3 H 0-0 Immature Granulocyte # (Auto) June 15, 2014 10:15am 0.04 T/MM3 H 0.00- 0.03 Immature Granulocyte % (Auto) June 15, 2014 10:15am 0.3 % N 0.0-0.5 Urine Total [place]/Lambda Ratio April 13, 2014 9:15pm See below - Ratio not calculated because the Total Jerusalem and TotalLambda values are less than the reportable range. Test Performed by: [place] [address] Ladies Underwear Operator: Amos Montero III, M.D. Immunoglobulin Light Chains, [place] [address] Track Walker Winston Camacho MD Ur Total Jerusalem Light Chains 24 Hr April 13, 2014 9:15pm <0.9000 mg/dL - Test Performed by:[place] [address] Ladies Underwear Operator: Amos Montero III, M.D. Immunoglobulin Light Chains, [place] [address] Track Walker Winston Camacho MD Test Performed by: [place] [address] Ladies Underwear Operator: Amos Montero III, M.D. --- 04/17/14 0823 --- UIFLCKA previously reported as: <0.9000 mg/dL Test Performed by: [place] [address] Ladies Underwear Operator: Amos Montero III, M.D. Immunoglobulin Light Chains, [place] [address] Track Walker Winston Camacho MD Ur Total Lambda Light Chains 24 Hr April 13, 2014 9:15pm <0.7000 mg/dL - Has specimen been collected/obtained? YCOMMENT 24 HOUR URINE COMMENT 24-hour urine Venous Blood Lactate June 19, 2014 6:35pm 1.1 MMOL/L N 0.6-2.2 Procalcitonin June 19, 2014 6:35pm 0.10 NG/ML - PCT </=0.5 ng/mL - sepsis not likely;PCT >0.5 and </=2 ng/mL - sepsis possible; PCT >2 ng/mL - sepsis likely; PCT >/=10 ng/mL - systemic inflammatory response - sepsis or septic shock highly indicated. Icterus Index June 19, 2014 6:35pm < 2 0-7 OR-Asz-E-Type Natriuretic Peptide June 01, 2014 9:00am 756 PG/ML H 0- 175 Rule in cut points: <50 years old=450; 50-75 years old=900; >75 years old=1800; When utilizing ProBNP rule-in cut points, adjustment for impaired renal function is typically not required. Free [place] Light Chains May 11, 2014 8:50am 1.12 mg/dL - Reference Range:0.3300-1.94 Free Lambda Light Chains May 11, 2014 8:50am 1.29 mg/dL - Reference Range:0.5700-2.63 Test Performed by: [place] [address] Ladies Underwear Operator: Amos Montero III, M.D. Immunoglobulin Free [place] [address] Track Walker Winston Camacho MD Reference Range: 0.5700-2.63 Test Performed by: [place] [address] Ladies Underwear Operator: Amos Montero III, M.D. --- 05/13/14 1254 --- IFLCLA previously reported as: 1.29 mg/dL Reference Range: 0.5700-2.63 Test Performed by: [place] [address] Ladies Underwear Operator: Amos Montero III, M.D. Immunoglobulin Free [place] [address] Track Walker Winston Camacho MD Plasma Oxyhemoglobin April 13, [...] the complete clinical context. Test Performed by: [place] [address] Ladies Underwear Operator: Amos Montero III, M.D. Plasma [place] [address] Track Walker Winston Camacho MD Urine Nipb-7-Kroxhnlc (%) April 13, 2014 9:15pm 5.6 % - Has specimen been collected/obtained? YCOMMENT 24 hour urine Blood Culture Blood April 28, 2014 7:55pm NO GROWTH AFTER 5 DAYS Urine Culture Urine, Clean Catch-Midstream April 10, 2014 3:40pm Legionella Urinary Antigen Urine April 10, 2014 3:40pm Name: GENESIS DUQUE Unit #: [id number] : 1930 Sex: F Loc / Svc: ED DOS: 06/06/14 Signed Report #: [id number] DIAGNOSTIC IMAGING REPORT TYPE OF EXAM: US VENOUS DUPLEX, LOWER EXT LT Dictated By: ED RAINEY MD INDICATION: ITS.REASON: left lower extremity pain, cancer US VENOUS DUPLEX, LOWER EXT LT: Comparison: April 10, 2014 Findings: There is no evidence for acute deep venous thrombosis in the left thigh. Specifically, serial graded compression was performed from the inguinal ligament to the popliteal bifurcation, on the left thigh, demonstrating appropriate compressibility of the deep venous system. In addition, color and pulsed Doppler demonstrate appropriate spontaneous flow, variation with respiration, and augmentation with calf compression. At the ankle, normal flow is identified in the posterior tibial veins; these vessels are also normal in caliber. Impression: No evidence of acute DVT in the left lower limb. There is a preliminary report by virtual radiologic. . Procedures Procedure Status Date Provider(s) BLOOD TRANSFUSION SERVICE completed 04/28/14 ROLAND CABRAL DO EGD DIAGNOSTIC BRUSH WASH completed 04/28/14 ROLAND CABRAL DO Encounters Encounter Location Date/Time Departed Emergency Room [facility] 06/19/14 5:42pm Registered [facility] 06/15/14 10:32am Departed Emergency Room [facility] 06/06/14 7:07pm Registered [facility] 06/01/14 10:05am Registered [facility] 05/25/14 2:34pm Registered [facility] 05/11/14 8:57am Registered [facility] 05/04/14 9:17am Discharged Inpatient [facility] 04/28/14 11:24am Registered [facility] 04/24/14 8:39am Discharged Inpatient [facility] 04/10/14 4:47pm Recent Diagnosis
--- OUTSIDE RECORDS SUMMARY | 2017-02-26 16:44 | XMS REPORT ---
Author Author [facility], [facility] - Organization Unknown Address Unknown Phone Unavailable Allergies, Adverse Reactions, Alerts * cefuroxime causes Moderate Adverse Reaction. * Ceftin causes N/V, DIARRHEA. * No Latex Allergy. * No IV Contrast Allergy. * No Known Food Allergies. Problems * Abdominal Pain* Status:Resolved. * Fall Risk* Status:Active. * Infection* Status:Active. * Pain* Status:Active. * Pneumonia* Status:Active. Procedures No relevant procedures performed. Medication It is the responsibility of the patient or patient accounts receivable representative to confirm the list of medications with either the patient's personal care provider or the patient's follow-up care provider to ensure the patient has an appropriate list of medications to take at home. Discharge medications* aspirin (Lalo Aspirin) 81mg Tablet, Ordered By: Argelia Landon Remitar Directions: 1 tablet oral daily * bifidobacterium infantis (Align) UNKNOWN Capsule, Ordered By: Argelia Lintonitar Directions: 1 capsule oral daily * DULoxetine (Cymbalta) 30 mg capsule,delayed release(DR/EC), Ordered By: Argelia Lintonitar Directions: 1 capsule oral daily * furosemide 20 mg Tablet, Ordered By: Argelia Lintonitar Directions: 1 tablet oral daily * polysaccharide iron complex (Ferrex 150) 150 mg iron Capsule, Ordered By: Argelia Landon Remitar Directions: 1 capsule oral Daily at 8 AM _ * OTC MULTIVITAMIN 1 TABLET TAKEN ORALLY DAILY LAST TAKEN AT HOME UNKNOWN * pantoprazole (ProTONIX) 40 mg tablet,delayed release (DR/EC), Ordered By: Argelia Lintonitar Directions: 1 tablet oral daily before breakfast * potassium chloride (Klor-Con 10) 10 mEq Tablet Extended Release, Ordered By: Argelia Landon Remitar Directions: 1 tablet oral twice a day during meal * predniSONE 2.5 mg Tablet, Ordered By: Argelia Vazquez Directions: 1 tablet oral daily * propranolol 40 mg Tablet, Ordered By: Argelia Vazquez Directions: 1 tablet oral twice a day * simvastatin (Zocor) 40 mg Tablet, Ordered By: Argelia Vazquez Directions: 1 tablet oral daily at bedtime * mirtazapine 7.5 mg Tablet, Ordered By: Argelia Vazquez Directions: 1 tablet oral daily at bedtime * haloperidol 0.5 mg Tablet, Ordered By: Argelia Vazquez Directions: 0.5 tablet oral twice a day Additional Instructions: x5 days * Diet: General diet * Activity: As tolerated * O2 at 1-2l/min/nc at all time * Follow up with PCP in 1 week ( Dr. Raphael Mcduffie) * Follow up with Dr. Cruz at [facility] Stopped medications* clonazePAM (KlonoPIN) 1 mg Tablet Directions: 1 tablet oral daily at bedtime * clonazePAM (KlonoPIN) 1 mg Tablet Directions: 1 tablet oral three times a day PRN anxiety * ropinirole 1 mg Tablet Directions: 1 tablet oral daily at bedtime * bumetanide 2 mg Tablet Directions: 2 tablet oral every Thursday, , Thursday, Thursday * diphenhydramine-acetaminophen (Tylenol PM Extra Strength) 500 mg-25 mg Tablet Directions: 2 tablet oral daily at bedtime * estropipate 0.75 mg Tablet Directions: 1 tablet oral daily Results LAB--CHEMISTRY from 05/09/2013 1:02 AMTSH (with reflex Free T4) 2.98 uIU/mL (0.35 -5.50 uIU/mL) C-Reactive Protein (CRP) 0.6 mg/dL (0.0-0.9 mg/dL) LAB--CHEMISTRY from 05/09/2013 5:34 AMAnion Gap 7 (3-20 ) BUN 19 mg/dL (4-20 mg/dL) Calcium 9.4 mg/dL (8.6-10.0 mg/dL) Chloride 100 mEq/L (99-109 mEq/L) CO2 30 mEq/L (22-32 mEq/L) Creatinine 1.21 mg/dL H (0.44-1.03 mg/dL) eGFR 43 A (>60- ) Glucose 86 mg/dL (70-100 mg/dL) Potassium 4.8 mEq/L (3.6-5.1 mEq/L) Magnesium 1.9 mg/dL (1.8-2.5 mg/dL) Sodium 137 mEq/L (136-144 mEq/L) Phosphorus 3.5 mg/dL (2.4-4.7 mg/dL) LAB--CHEMISTRY from 05/10/2013 6:03 AMAnion Gap 10 (3-20 ) BUN 16 mg/dL (4-20 mg/dL) Calcium 9.7 mg/dL (8.6-10.0 mg/dL) Chloride 102 mEq/L (99-109 mEq/L) CO2 31 mEq/L (22-32 mEq/L) Creatinine 1.18 mg/dL H (0.44-1.03 mg/dL) eGFR 44 A (>60- ) Glucose 90 mg/dL (70-100 mg/dL) Potassium 4.2 mEq/L (3.6-5.1 mEq/L) Magnesium 1.8 mg/dL (1.8-2.5 mg/dL) Sodium 143 mEq/L (136-144 mEq/L) LAB--CHEMISTRY from 05/10/2013 11:13 AMVitamin B12 923 pg/mL H (211-911 pg/mL) LAB--CHEMISTRY from 05/11/2013 5:18 AMAnion Gap 6 (3-20 ) Albumin 3.3 g/dL L (3.5-4.8 g/dL) BUN 22 mg/dL H (4-20 mg/dL) Calcium 9.7 mg/dL (8.6-10.0 mg/dL) Chloride 103 mEq/L (99-109 mEq/L) CO2 32 mEq/L (22-32 mEq/L) Creatinine 1.04 mg/dL H (0.44-1.03 mg/dL) eGFR 51 A (>60- ) Glucose 101 mg/dL H (70-100 mg/dL) Potassium 3.8 mEq/L (3.6-5.1 mEq/L) Sodium 141 mEq/L (136-144 mEq/L) Phosphorus 4.8 mg/dL H (2.4-4.7 mg/dL) LAB--HEMATOLOGY from 05/09/2013 1:02 AMSedimentation Rate 15 mm/hr (0-23 mm/hr) LAB--HEMATOLOGY from 05/09/2013 5:34 AMAbsolute Basophils 0.06 THOUS (0.00-0.20 THOUS) Absolute Eosinophils 0.32 THOUS (0.00-0.50 THOUS) Absolute Lymphocytes 3.63 THOUS H (0.80-3.30 THOUS) Absolute Monocytes 0.81 THOUS (0.30-1.00 THOUS) Absolute Neutrophils 4.38 THOUS (1.90-7.00 THOUS) HCT 36.7 % L (37.0-47.0 %) HGB 11.6 g/dl L (12.0-16.0 g/dl) MCH 32.6 pg H (27.0-32.0 pg) MCHC 31.6 g/dL L (32.0-36.0 g/dL) MCV 103.1 fL H (82.0-99.0 fL) MPV 12.6 fL H (9.4-12.4 fL) Platelet Count 206 K/uL (150-400 K/uL) RBC 3.56 M/uL L (4.00-5.20 M/uL) RDW 14.6 % H (11.5-14.5 %) WBC 9.2 K/uL (4.8-10.8 K/uL) Basophils 1 % (0-2 %) Eosinophils 4 % (0-4 %) Immature Granulocytes 0.2 % (0.0-1.0 %) Lymphocytes 39 % (20-46 %) Monocytes 9 % (4-11 %) Nucleated RBC Automated 0.0 /100 WBC (0 /100 WBC) Neutrophils 47 % L (51-75 %) LAB--HEMATOLOGY from 05/10/2013 6:03 AMHCT 39.1 % (37.0-47.0 %) HGB 12.3 g/dl (12.0-16.0 g/dl) MCH 32.4 pg H (27.0-32.0 pg) MCHC 31.5 g/dL L (32.0-36.0 g/dL) MCV 102.9 fL H (82.0-99.0 fL) MPV 12.4 fL (9.4-12.4 fL) Platelet Count 204 K/uL (150-400 K/uL) RBC 3.80 M/uL L (4.00-5.20 M/uL) RDW 14.8 % H (11.5-14.5 %) WBC 8.5 K/uL (4.8-10.8 K/uL) LAB--HEMATOLOGY from 05/11/2013 5:18 AMHCT 39.0 % (37.0-47.0 %) HGB 12.2 g/dl (12.0-16.0 g/dl) MCH 32.0 pg (27.0-32.0 pg) MCHC 31.3 g/dL L (32.0-36.0 g/dL) MCV 102.4 fL H (82.0-99.0 fL) MPV 12.4 fL (9.4-12.4 fL) Platelet Count 209 K/uL (150-400 K/uL) RBC 3.81 M/uL L (4.00-5.20 M/uL) RDW 14.5 % (11.5-14.5 %) WBC 10.7 K/uL (4.8-10.8 K/uL) LAB--SERODIAGNOSIS from 05/09/2013 1:02 AMRPR Non-reactive LAB--URINE TESTS from 05/09/2013 7:55 PMAppearance Clear Bilirubin Negative (Negative ) Blood Negative (Negative ) Color Lt Yellow Glucose Negative (Negative ) Ketones, Urine Negative (Negative ) Leukocytes Esterase Negative (Negative ) Nitrites Negative (Negative ) pH, Urine 5.0 (5.0-8.0 ) Protein Pos 1+ A (Negative ) Specific [place] 1.007 (1.003-1.030 ) Collection Type: Clean Catch Urobilinogen Negative mg/dL (-<1.0 mg/dL) Bacteria Occasional A Epithelial Cells 2-5 /HPF Hyaline Casts 1-3 /LPF (0-3 /LPF) RBC 0-2 /HPF (0-2 /HPF) WBC 2-5 /HPF (0-4 /HPF)
--- OUTSIDE RECORDS SUMMARY | 2017-02-26 16:44 | XMS REPORT | Summary of Care ---
Author Author [facility] Organization Unknown Address [address] [place] [id number] Phone Unavailable Care Team Providers Care [employer] Agent Name Role Phone Cece Streeter M.D. 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, 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 Osteoporosis (733.00, M81.0) Status: Active Hypothyroidism (244.9, E03.9) Status: Active Hyperlipidemia (272.4, E78.5) Status: Active Hypercholesteremia (272.0, E78.0) Status: Active Abdominal pain (789.00, R10.9) Status: Active Leukocytosis (288.60, D72.829) Status: Active Dehydration, mild (276.51, E86.0) Status: Active Elevated brain natriuretic peptide (BNP) level (790.99, R79.89) Status: Active Acute right lower quadrant pain (789.03, R10.31) Status: Active Medications Name Dates Details Multi-Day [...] Biopsy Completed: History of Aortic Valve Replacement XRay CHEST-PA & LAT Ordered:23-Jan-2016 Immunization Name Dates Details Influenza Lot #: [id number] Administered on:02-Aug-2010 Influenza Lot #: [id number] Administered on:24-Aug-2012 Pneumo (Pneumovax) Lot #: [id number] Administered on:24-Aug-2012 Fluzone High-Dose 0.5 ML Intramuscular Suspension Prefilled Syringe Lot #: [id number] Administered on:25-Jul-2015 Tdap (Adacel) Lot #: [id number] Administered on:05-Nov-2015 Family History natural son* Name [...] smoker Vital Signs Date Test Result Details 03-Mar-2016 09:18 BP Systolic 122 mm[Hg] Status: BP Diastolic 70 mm[Hg] Status: Heart Rate 78 /min Status: Height 63 in Status: Weight 130.375 lb Status: O2 SAT 96 % Status: FiO2 flow rate 2 L/min Status: Body Mass Index Calculated 23.1 kg/m2 Status: Body Surface Area Calculated 1.61 m2 Status: 20-Feb-2016 16:24 BP Systolic 118 mm[Hg] Status: [...] m2 Status: Results Date Description Value Details 06-Feb-2016 15:04 XRay HIP-Right Comments: Exam Date: [...] threshold) Range: >60 EST GFR, NON-AFR SALVADOREAN 44 ml/min (Below low threshold) Range: >60 Comments: EST GFR is reported in ml/min per 1.73 m2 of body surface area. For -British, please multiple result by 1.2.----- GLUCOSE 98 [...] threshold) Range: >60 EST GFR, NON-AFR SALVADOREAN 33 ml/min (Below low threshold) Range: >60 Comments: EST GFR is reported in ml/min per 1.73 m2 of body surface area. For -British, please multiple result by 1.2.----- GLUCOSE 110 [...] 17:30 XC AB/PEL 45 MIN PREP (Better) 28-Feb-2016 14:14 C REACTIVE PROTEIN, CRP 2030 [...] -British, please multiple result by 1.2.----- GLUCOSE 105 [...] mm/60 min. (Above high threshold) Range: 0-20 Plan of Care Planned Observations* Name Dates [...]
--- OUTSIDE RECORDS SUMMARY | 2017-02-26 16:44 | XMS REPORT | Summary of Care ---
Author Author [facility] M[facility] Organization Unknown Address [address] [place], [place] [id number] Phone Unavailable Care Team Providers Care Manager Product Marketing Name Role Phone Ferdinand Hammonds, Cece Unavailable [...] 0 [facility] Muro * Start 25-Jun-2016 Active Adult Aspirin EC Low Strength 81 MG Oral Tablet Delayed Release * Refills: 0 Henry Mendoza M.D. * Start 05-Jul-2013 Active Propranolol HCl - 40 MG Oral [...] 0 Chapito Muro * Start 23-Sep-2016 Active LORazepam 0.5 MG Oral Tablet TAKE [...] Immunization Name Dates Details Influenza Lot #: [id number] on: 02-Aug-2010 Influenza Lot #: [id number] on: 24-Aug-2012 Pneumo (Pneumovax) Lot #: [id number] on: 24-Aug-2012 Fluzone High-Dose 0.5 ML Intramuscular Suspension Prefilled Syringe Lot #: [id number] on: 25-Jul-2015 Tdap (Adacel) Lot #: [id number] on: 05-Nov-2015 Fluzone High-Dose 0.5 ML Intramuscular Suspension Prefilled Syringe Lot #: [id number] on: 02-Sep-2016 Family History Name Dates Details [...] >60 ml/min Range: >60 EST GFR, NON-AFR SERBIAN 50 ml/min (Below low threshold) Range: >60 Comments: EST GFR is reported in ml/min per 1.73 m2 of body surface area. ----- BUN:CREATININE RATIO 37 GLUCOSE 98 mg/dL Range: 70-100 CALCIUM 8.5 mg/dL Range: 8.5-10.1 15:41 TROPONIN I 3451 TROPONIN I <0.04 ng/mL Range: .09 Comments: Called to LaurieVerified by Repeat Analysis<0.10 ng/ml=Negative for MI0.10-0.59 ng/ml=Indeterminate for MI0.60-1.50 ng/ml=Suggestive of [place]----- 15:43 CT AB/ PEL WITHOUT IV CONTRAST [...] /HPF Range: 0-10 21-Nov-2016 14:34 URINE CULTURE [id number] Comments: [employer] (now [employer], [address] [place] [address], [phone], Technical Business Systems Analyst: Gigi Alberto D.O., MPHQuest Collection Date/Time: [id number] Results Received Date/Time: [id number] Reported Date/Time: [id number] FASTING:NOQuest performed at: [facility], [address] [place] [address], [id number], Technical Business Systems Analyst: Gigi Alberto D.O., MPHQuest Collection Date/Time: [id number] Results Received Date/Time: [id number] Reported Date/Time: FASTING:NO CULTURE, URINE, ROUTINE SEE NOTE (Abnormal) Comments: CULTURE, URINE, ROUTINE MICRO NUMBER: [id number] TEST STATUS: FINAL SPECIMEN SOURCE : URINE [...] threshold) Range: >60 EST GFR, NON-AFR SERBIAN 35 ml/min (Below low threshold) Range: >60 [...] Problem not documented On 23-Jul-2016 08:00 Appointment; Bruec Saunders M.D. Encounter Diagnosis: Problem not documented [...]
--- OUTSIDE RECORDS SUMMARY | 2017-02-26 16:45 | XMS REPORT | Continuity of Care Document ---
Author Author [facility] Organization [facility] Address Unknown Phone Unavailable Support Name Relationship Address Phone ROLAND CABRAL Caregiver [facility] [address] [facility] [address] [place] [address] ELISABET TERAN Next Of Kin [address] [place] [address] Insurance Providers Payer Name Policy Number Subscriber Name Relationship Medicare [id number] Genesis Duque 19 Self [facility] [employer] Plan [id number] Genesis Duque 19 Self Advance Directives Directive Response Recorded Date/Time Advanced Directives Type DNR Documentation Living Will DPOA for Healthcare 6:50pm Ordered Resuscitation Status Limited Code 04/10/14 3:17pm Resuscitation Documents on File N "UNKNOWN" 04/27/14 6:50pm Chief Complaint and Reason for Visit Chief Complaint ANEMIA Reason for Visit Anemia Problems Medical Problems Problem Onset Date Status Chest pain Unknown Resolved Hypertension Unknown Active CAD (coronary artery disease) Unknown Active Pulmonary hypertension Unknown Active Anemia 05/03/2014 Active Surgical Problems Problem Onset Date Recorded [...] Mg IH TWICE A DAY 04/27/14 Active Social History Social History Problem Response Recorded Date/Time Smoking Status Never smoker 04/27/2014 6:52pm Has the pt used tobacco in the last 12 months No 04/27/2014 6:52pm Hospital Discharge Instructions Instructions: Care Instructions: Reason for Hospitalization: Severe Anemia Discharge Diet: As per pre-hospitalization Discharge Activity: As per pre-hospitalization Follow Up Appointments: Dr. Hurst - April at 8:[address] Cabral - April at 1:45 pm Patient Instructions: Lab - CBC [place] C[place] [facility] [place] appointment with Dr Cabral. Notify Physician If: Fatigue, weakness, dark stools, gastrointestinal bleeding occur. New Scripts Called to Pharmacy: Prednisone 30 mg by mouth daily Tylenol 650 mg by mouth every 4 hours as needed for pain Protonix 40 mg by mouth twice a day Ativan 0.5 mg by mouth twice a day as needed for anxiety Acyclovir 400 mg by mouth twice a day Allopurinol 300 mg by mouth daily Folic Acid 1 mg by mouth daily Condition at time of discharge: Good Care Plan Discharge Patient: Goal: Understand discharge plan Patient Instructions: see patient instructions see patient instructions see patient instructions Plan of Care Discharge Date 05/03/14 6:17pm Disposition 01 DISCHARGED HOME, SELF-CARE Instructions/Education Provided [facility] Congestive Heart Failure Anemia of Chronic Disease Prescriptions See Medications Section Functional Status Query Response Date Recorded Physical Hygiene Self May 03, 2014 5:22pm Disabilities Hearing Visual [...] April 19, 2014 2:13pm Physical Hygiene Self May 03, 2014 5:22pm Dressing Self April 19, 2014 2:13pm Ambulation [...] Vital Signs Vital Response Date/Time Temperature (Fahrenheit) 96.0 deg F (96.8 - 99.1) Temperature (Calculated Celsius) 35.98097 degrees C (36.0 - 37.3) Temperature Source Axillary Pulse Rate (adult) 78 bpm (60 - 100) Respiratory Rate 16 breaths/min (10 - 20) O2 Sat by Pulse Oximetry 98 % (90 - 100) Oxygen Delivery Method Nasal Cannula Oxygen Flow Rate 2.00 L/min Height 5 ft 1 in Weight 117 lb Body Mass Index 22.0 kg/m^2 Results Test Source Date Result Interp. Ref. Range Comments Absolute Reticulocyte Count May 03, 2014 4:40am 0.1476 T/MM3 H 0.0300- 0.0900 Activated Partial Thromboplast Time May 01, 2014 4:20am 26.1 SEC N 24- 36 Ordering r/o VTE No Alanine Aminotransferase (ALT/SGPT) May 03, 2014 4:40am 43 U/L N 9-52 Albumin May 03, 2014 4:40am 2.3 G/DL L 3.5-5.0 Albumin/Globulin Ratio May 03, 2014 4:40am 1.0 RATIO L 1.1-2.2 Alkaline Phosphatase May 03, 2014 4:40am 89 U/L N 38-126 Dlggg-6-Alfjvxqki April 28, 2014 10:43am 0.6 g/dL H - Ixauv-2-Esgtuapar (%) April 28, 2014 10:43am 12.0 % H - Kuhdr-3-Quctovtbe April 28, 2014 10:43am 0.7 g/dL - Adzcb-3-Xnjdoaida (%) April 28, 2014 10:43am 14.0 % - Anion Gap May 03, 2014 4:40am 4 MEQ/L L 5-15 Anisocytosis May 03, 2014 4:40am 2+ - Aspartate Amino Transf (AST/SGOT) May 03, 2014 4:40am 28 U/L N 14-36 BUN/Creatinine Ratio May 03, 2014 4:40am 39 RATIO H 6-26 Band Neutrophils # May 03, 2014 4:40am 0.2 T/MM3 - Band Neutrophils % May 03, 2014 4:40am 3.0 % N 0-6 Basophils # (Auto) April 15, 2014 5:45am 0.0 T/MM3 N 0-0.2 Basophils # (Manual) April 28, 2014 10:43am 0.2 T/MM3 N 0-0.2 Basophils % (Manual) April 28, 2014 10:43am 1.0 % N 0-2 Basophils (%) (Auto) April 15, 2014 5:45am 0.3 % N 0-2 Blood Smear Pathologist Review May 01, 2014 4:20am Sent for review - Blood Urea Nitrogen May 03, 2014 4:40am 35.0 MG/DL H 7-17 C-Reactive Protein April 10, 2014 1:32pm 70.1 MG/L H 0-9 Calcium Level May 03, 2014 4:40am 8.4 MG/DL N 8.4-10.2 Calculated Osmolality May 03, 2014 4:40am 280 MOSM/KG N 261-280 Carbon Dioxide Level May 03, 2014 4:40am 34 MEQ/L H 22-30 Chloride Level May 03, 2014 4:40am 104 MEQ/L N 98-107 Cold Agglutinin Titer April 28, 2014 10:43am Negative - Conjugated Bilirubin April 28, 2014 7:55pm 0.00 MG/DL N 0.00-0.30 COMMENT TO BE TAKEN WITH NEXT BLOOD DRAW Corrected White Blood Count April 30, 2014 4:35am 18.2 T/MM3 H 4.5-11.0 Creatine Kinase MB April 28, 2014 10:45pm 0.7 NG/ML N 0-3.4 Creatinine May 03, 2014 4:40am 0.9 MG/DL N 0.7-1.2 D-Dimer May 01, 2014 4:20am 747 NG/ML H 0-230 <224 NG/ML=PRESUMPTIVE NEGATIVE FOR PE OR DVT>224 NG/ML=ADDITIONAL EVALUATION FOR PE OR DVT RECOMMENDED Eosinophils # (Auto) April 15, 2014 5:45am [...] Range: 2.6 - 18.5 Test Performed by: [place] [address] Insurance Business Analyst: Amos Montero III, M.D. Erythropoietin performed at [facility], [address] [place] [address] Public Relations Studies Director Winston Camacho MD Ferritin April 11, 2014 8:00pm 464 NG/ML H 11-264 COMMENT with next troponin draw. Fibrin Degradation Products May 01, 2014 4:20am >40ug/ml UG/ML H - Ordering r/o VTE No Fibrinogen May 01, 2014 4:20am 541 MG/DL H 135-357 Ordering r/o VTE No Folate April 11, 2014 5:59am > 20.0 NG/ML H 2.76-20 NORMAL ADULT RANGE: 2.76->20 ng/mL Gamma Globulins April 28, 2014 10:43am 0.5 g/dL - Gamma Globulins (%) April 28, 2014 10:43am 10.3 % - Immunoelectrophoresis, no IMQ performed at [facility], [address] [place] [address] Public Relations Studies Director Leonidas Camacho MD Gamma Glutamyl Transpeptidase April 28, 2014 10:43am 120 U/L H 8-78 Globulin May 03, 2014 4:40am 2.3 G/DL L 2.4-3.6 Glucose Level May 03, 2014 4:40am 75 MG/DL N 65-110 Haptoglobin April 27, 2014 7:35pm 172 mg/dL - Haptoglobin performed at [facility], [address] [place], [place] [address]Qjuizfu Director Leonidas Camacho MD Hematocrit May 03, 2014 4:40am 22.9 % L 36-46 Hemoglobin May 03, 2014 4:40am 6.7 GM/DL L 12-16 Hemoglobin A1c April 11, [...] 5:59am 5.6 umol/L - Homocysteine performed at [facility], [facility] [place], [place] [address]Medical Director Leonidas Camacho MD [place] Bodies April 27, 2014 7:35pm 1+ - Hypochromasia May 03, 2014 4:40am 1+ - Immature Reticulocyte Fraction May 03, 2014 4:40am 29.4 % H 3.3-14.5 Immunoglobulin A April 11, [...] Reference Range 5.5% - 12.7%.Testing performed at [place], [place] Lactate Dehydrogenase May 03, 2014 4:40am 813 U/L H 313-618 Large Platelets April 19, 2014 4:25am Few - Lymphocytes # (Auto) April 15, 2014 5:45am 2.3 T/MM3 N 1-4.8 Lymphocytes # (Manual) May 03, 2014 4:40am 1.3 T/MM3 N 1-4.8 Lymphocytes % (Manual) May 03, 2014 4:40am 17.0 % L 23-45 Lymphocytes (%) (Auto) April 15, 2014 5:45am 22.6 % L 23-45 Macrocytosis April 18, 2014 8:15am 1+ - Magnesium Level May 03, 2014 4:40am 2.1 MG/DL N 1.6-2.3 Mean Corpuscular Hemoglobin May 03, 2014 4:40am 31.5 UUG N 26-34 Mean Corpuscular Hemoglobin Concent May 03, 2014 4:40am 29.3 GM/DL L 31 -37 Mean Corpuscular Volume May 03, 2014 4:40am 107.5 UM3 H 80-100 Mean Platelet Volume May 03, 2014 4:40am 11.8 UM3 N 9.4-12.4 Metamyelocytes # April 29, 2014 4:19am 0.2 T/MM3 - Metamyelocytes % April 29, 2014 4:19am 1.0 % H 0-0 Methylmalonic Acid April 11, 2014 5:59am 0.15 nmol/mL - Test Performed by:[facility] [address] [place] [address] Insurance Business Analyst: Amos Montero III, M.D. Methylmalonic Acid, Serum performed at [facility], [address] [place] [address] Public Relations Studies Director Winston Camacho MD Monocytes # (Auto) April 15, 2014 5:45am 0.4 T/MM3 N 0-0.8 Monocytes # (Manual) May 03, 2014 4:40am 0.7 T/MM3 N 0-0.8 Monocytes % (Manual) May 03, 2014 4:40am 9.0 % N 0-9.0 Monocytes (%) (Auto) April [...] with M. pneumoniae. Mycoplasma Antibodies performed at [facility], [address] [place] [address] Public Relations Studies Director Leonidas Camacho MD Myelocytes # April 16, 2014 5:25am 0.2 T/MM3 - Myelocytes % April 16, 2014 5:25am 1.0 % H 0-0 Neutrophils # (Auto) April 15, 2014 5:45am 7.3 T/MM3 N 1.8-7.7 Neutrophils # (Manual) May 03, 2014 4:40am 5.5 T/MM3 N 1.8-7.7 Neutrophils % (Manual) May 03, 2014 4:40am 71.0 % H 33-66 Neutrophils (%) (Auto) April 15, 2014 5:45am 71.9 % H 33-66 Nucleated Red Blood Cells May 03, 2014 4:40am 5 - Ovalocytes April 17, 2014 5:15am 1+ - Percent Iron Saturation April 11, 2014 8:00pm 8 % L 9-55 COMMENT with next troponin draw. Percent Reticulocyte Count May 03, 2014 4:40am 6.9 % H 0.6-1.7 Phosphorus Level May 03, 2014 4:40am 5.1 MG/DL H 2.5-4.5 Platelet Count May 03, 2014 4:40am 233 T/MM3 N 130-400 Poikilocytosis April 27, 2014 7:35pm 4+ - Potassium Level May 03, 2014 4:40am 4.9 MEQ/L N 3.6-5 Prothromb Time International Ratio May 01, 2014 4:20am 1.03 N 0.81- 1.09 THERAPUTIC RANGE=2.00-3.00 FOR ANTI-THROMBOSIS THERAPUTIC RANGE=2.50- 3.50 FOR IMPLANTED VALVE RDW Standard Deviation May 03, 2014 4:40am 61.9 FL H 36.9-50.2 Red Blood Count May 03, 2014 4:40am 2.13 M/MM3 L 4.00-5.20 Reference Lab Test Name April 13, 2014 8:10am Sent out - Reticulocyte Hgb Content (CHr) May 03, 2014 4:40am 35.5 PG N 30.8-36.6 Schistocytes April 13, 2014 4:22am 1+ - Sodium Level May 03, 2014 4:40am 142 MEQ/L N 134-144 Stomatocytes April 27, 2014 7:35pm 2+ - Stool Occult Blood May 02, 2014 10:30am Negative - Has specimen been collected/obtained? YCOMMENT 2 OF 3 Target Cells April 27, 2014 7:35pm 1+ - Thyroid Stimulating Hormone (TSH) April 10, 2014 12:46pm 1.25 MIU/L N 0.47-4.68 COMMENT add to blood already drawn in lab. Total Bilirubin May 03, 2014 4:40am 0.10 MG/DL L 0.20-1.30 Total Creatine Kinase April 28, 2014 10:45pm < 20 U/L L 30-135 Total Iron Binding Capacity April 11, 2014 8:00pm 297 UG/DL N 261-497 COMMENT with next troponin draw. Total Protein May 03, 2014 4:40am 4.6 G/DL L 6.3-8.2 Troponin I April 29, 2014 4:19am 0.032 ng/ml N 0-0.12 Unconjugated Bilirubin April 28, 2014 7:55pm 0.40 MG/DL N 0.00-1.10 COMMENT TO BE TAKEN WITH NEXT BLOOD DRAW Uric Acid May 03, 2014 4:40am 5.4 MG/DL N 2.5-7.5 Urine Albumin (%) April 13, 2014 9:15pm 72.1 % - Has specimen been collected/obtained? YCOMMENT 24 hour urine Urine Cmkti-3-Bldzszlbu (%) April 13, 2014 9:15pm 6.8 % - Has specimen been collected/obtained? YCOMMENT 24 hour urine Urine Kgqae-7-Pkoeuapgk (%) April 13, 2014 9:15pm 8.9 % [...] Hr - Protein electrophoresis, Urine performed at [facility], [address] [place] [address] Public Relations Studies Director Leonidas Camacho MD Urine Collection Time April [...] % - Eosinophil Count, Urine performed at [facility], [address] [place] [address] Public Relations Studies Director Leonidas Camacho MD Urine Gamma Globulin (%) April 13, 2014 9:15pm 6.6 % - Has specimen been collected/obtained? YCOMMENT 24 hour urine Urine Glucose (UA) April 27, 2014 9:20pm Negative - Has specimen been collected/obtained? Y Urine Hemosiderin April 27, 2014 9:20pm Negative - Test Performed by: [facility] [place] [address] Insurance Business Analyst: Amos Montero III, M.D. Hemosiderin, Urine performed at [facility], [address] [place] [address] Public Relations Studies Director Winston Camacho MD Urine Hyaline Casts April [...] Has specimen been collected/obtained? Y Urine Specific [place] April 27, 2014 9:20pm 1.015 - Has specimen been collected/obtained? Y Urine Squamous Epithelial Cells April 14, 2014 7:55am 5-10 - Has specimen been collected/obtained? Y Urine Total Protein April 13, 2014 9:15pm 32 mg/dL H - Protein electrophoresis, Urine performed at [facility], [facility] [place] [address] Public Relations Studies Director Leonidas Camacho MD Urine Total Protein 24 [...] 378 PG/ML N 239-931 White Blood Count May 03, 2014 4:40am 7.7 T/MM3 N 4.5-11.0 Chemistry Specimen Hemolysis May 03, 2014 4:40am < 15 0-25 0-25: No Hemolysis.26-70: Slight [...] can falsely decrease Phenytoin. Recommend specimen recollection. Ewdd-6-Dphoexmt April 28, 2014 10:43am 0.4 g/dL - Udxu-0-Lqjvbsom (%) April 28, 2014 10:43am 7.8 % - Fvfn-9-Glynaexy April 28, 2014 10:43am 0.2 g/dL - Yviz-6-Igsyfmby (%) April 28, 2014 10:43am 4.1 % - Serum Monoclonal Protein April 28, 2014 10:43am 0.2 g/dL PH - Albumin (PEP) April 28, 2014 10:43am 2.5 g/dL L - Protein Electrophoresis Comment April 28, 2014 10:43am - - Previously identified IgM Lambda monoclonal peak.Elevated Alpha-1. 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 Kris Gonzalez M.D. 13:43 04/12/2014 * Findings: Monoclonal B-Cell Population: [place] description and % total cells: CD45 vs SSC; CD19 vs SSC; about 2% of the total cells. Phenotype: The monoclonal B-cells are brightly CD45+; moderately CD19+/CD20+/FMC7+/Surface Lambda+; trace dim CD11c+/CD38+; negative for CD10, CD5, CD103, CD25 and Surface Tuttle. These B-cells comprise about 9% of the gated lymphocytes. * Lymphocytes: [place] description and % total cells: CD45 vs [...] April 18, 2014 8:15am Few - Turbidity May 03, 2014 4:40am < 20 0-20 Reactive Lymphocytes % May 02, 2014 4:52am 1.0 % H 0-0 Glomerular Filtration Rate Calc May 03, 2014 4:40am 60 - Serum Total Protein April 28, 2014 10:43am 4.9 g/dL L - Immunoelectrophoresis, no IMQ performed at [facility], [address] [place] [address] Public Relations Studies Director Leonidas Camacho MD Free Tuttle/Lambda Light Chain Ratio April 11, 2014 5:59am 0.7196 - Reference Range:0.2600-1.65 Test Performed by: [place] [address] Insurance Business Analyst: Amos Montero III, M.D. Immunoglobulin Free [place] [address] Public Relations Studies Director Winston Camacho MD Reactive Lymphocytes # May 02, 2014 4:52am 0.1 T/MM3 H 0-0 Immature Granulocyte # (Auto) April 15, 2014 5:45am 0.13 T/MM3 H 0.00- 0.03 Immature Granulocyte % (Auto) April 15, 2014 5:45am 1.3 % H 0.0-0.5 Urine Total Tuttle/Lambda Ratio April 13, 2014 9:15pm See below - Ratio not calculated because the Total Tuttle and TotalLambda values are less than the reportable range. Test Performed by: [place] [address] Insurance Business Analyst: Amos Montero III, M.D. Immunoglobulin Light Chains, [place] [address] Public Relations Studies Director Winston Camacho MD Ur Total Tuttle Light Chains 24 Hr April 13, 2014 9:15pm <0.9000 mg/dL - Test Performed by:[place] [address] Insurance Business Analyst: Amos Montero III, M.D. Immunoglobulin Light Chains, [place] [address] Public Relations Studies Director Winston Camacho MD Test Performed by: [place] [address] Insurance Business Analyst: Amos Montero III, M.D. --- 04/17/14 0823 --- UIFLCKA previously reported as: <0.9000 mg/dL Test Performed by: [place] [address] Insurance Business Analyst: Amos Montero III, M.D. Immunoglobulin Light Chains, [place] [address] Public Relations Studies Director Winston Camacho MD Ur Total Lambda Light [...] or septic shock highly indicated. Icterus Index May 03, 2014 4:40am < 2 0-7 LI-Uwo-Z-Type Natriuretic Peptide April 10, 2014 12:26pm 3000 PG/ML H 0- 175 Rule in cut points: <50 years old=450; 50-75 years old=900; >75 years old=1800; When utilizing ProBNP rule-in cut points, adjustment for impaired renal function is typically not required. Free Tuttle Light Chains April 11, 2014 5:59am 1.36 mg/dL - Reference Range:0.3300-1.94 Free Lambda Light Chains April 11, 2014 5:59am 1.89 mg/dL - Reference Range:0.5700-2.63 Test Performed by: [place] [address] Insurance Business Analyst: Amos Montero III, M.D. Immunoglobulin Free [place] [address] Public Relations Studies Director Winston Camacho MD Reference Range: 0.5700-2.63 Test Performed by: [place] [address] Insurance Business Analyst: Amos Montero III, M.D. --- 04/12/14 1258 --- IFLCLA previously reported as: 1.89 mg/dL Reference Range: 0.5700-2.63 Test Performed by: [place] [address] Insurance Business Analyst: Amos Montero III, M.D. Immunoglobulin Free [place] [address] Public Relations Studies Director Winston Camacho MD Plasma Oxyhemoglobin April 13, [...] the complete clinical context. Test Performed by: [place] [address] Insurance Business Analyst: Amos Montero III, M.D. [place] [address] Public Relations Studies Director Winston Camacho MD Urine Xnkp-7-Zraoundr (%) April 13, 2014 9:15pm 5.6 % - Has specimen been collected/obtained? YCOMMENT 24 hour urine Blood Culture Blood April 28, 2014 7:55pm NO GROWTH AFTER 4 DAYS Legionella Urinary Antigen Urine April 10, 2014 3:40pm Urine Culture Urine, Clean Catch-Midstream April 10, 2014 3:40pm Procedures Procedure Status Date Provider(s) Esophagogastroduodenoscopy (EGD) with closed biopsy completed 05/02/14 RONY CAVAZOS DO Encounters Encounter Location Date/Time Discharged Inpatient [facility] 04/28/14 11:24am Registered [facility] 04/24/14 8:39am Discharged Inpatient [facility] 04/10/14 4:47pm Registered [facility] 03/17/14 9:14am Recent Diagnosis Anemia
--- OUTSIDE RECORDS SUMMARY | 2017-02-26 16:45 | XMS REPORT | Summary of Care ---
Author Author Chapito Muro Organization Unknown Address [address] [place], [place] [id number] Phone Unavailable Care Team Providers Care Ship Surveyor Name Role Phone Cece Streeter M.D. Unavailable [...] Immunization Name Dates Details Influenza Lot #: [id number] on: 02-Aug-2010 Influenza Lot #: [id number] on: 24-Aug-2012 Pneumo (Pneumovax) Lot #: [id number] on: 24-Aug-2012 Fluzone High-Dose 0.5 ML Intramuscular Suspension Prefilled Syringe Lot #: [id number] on: 25-Jul-2015 Tdap (Adacel) Lot #: [id number] on: 05-Nov-2015 Fluzone High-Dose 0.5 ML Intramuscular Suspension Prefilled Syringe Lot #: [id number] on: 02-Sep-2016 Family History Name Dates Details [...] low threshold) Range: >60 EST GFR, NON-AFR CITIZEN OF [place] 26 ml/min (Below low threshold) Range: >60 [...] Interventions Provided Labs/Procedures/Imaging* ULTRASOUND LEG VEINS LEFT; Done: 11Feb2017 04:21PM Instructions Name Dates Details Instructions not documented [...] Problem not documented On 02-Sep-2016 14:15 Appointment; Chaptio Muro Encounter Diagnosis: Problem not documented On [...]
--- OUTSIDE RECORDS SUMMARY | 2017-02-26 16:45 | XMS REPORT ---
Author Author [facility], SYSTEM Organization Unknown Address Unknown Phone Unavailable Care Team Providers Care Turret Lathe Machinist Name Role Phone MD CORTEZ, [facility] [phone] Reason For Visit Reason for Visit from [...] MG/DL (65-99 MG/DL) *GFR EST NON AFR NEPALESE 41 ML/MIN *GFR EST AFR AMER 48 [...] will call with appointment Treatment Plan from 11/21/2016 10:15 AM:* Care Management Note : RAMU spoke with both patient and her daughter in room regarding scheduled discharge for today. Both in agreement and daughter plans to provide transportation for patient. RAMU phoned the [facility] and spoke with Mouna regarding patient's return. Mouna provided a fax number for orders [phone] which was passed long to the community living specialist. No other needs or concerns at this time. Treatment Plan from 11/20/2016 10:15 AM:* Care Management Note : RAMU spoke with both patient and her daughter regarding possible needs at discharge. Both stated that patient was from the [facility] and planned to return there at discharge. No other needs or concerns at this time. RAMU will continue to assist as needed. Treatment [...] 8 :57 AM * Completed Procedure Code: [id number] Procedure Name: not valued, on 08/27/2016 12 :00 AM * Completed Procedure Code: 92513 Procedure Name: not valued, on 08/27/2016 12: 00 AM * Completed Procedure Code: [id number] Procedure Name: not valued, on 07/30/2016 9: 59 AM * Completed Procedure Code: [id number] Procedure Name: not valued, on 07/30/2016 9: 59 AM * Completed Esophagogastroduodenoscopy with control of bleeding, by MD ROOSEVELT DIAZ, on 07/30/2016 9:21 AM * Completed Procedure Code: [id number] Procedure Name: not valued, on 07/21/2016 12 :00 AM * Completed Procedure Code: 00768 Procedure Name: not valued, on 07/21/2016 12: 00 AM * Completed Procedure Code: 33304 Procedure Name: not valued, on 07/21/2016 12: 00 AM * Completed Procedure Code: 30390R1 Procedure Name: not valued, on 06/21/2016 12 [...] the responsibility of the patient or patient field service representative to confirm the list of medications with either the patient's personal care provider or the patient's follow-up care provider to ensure the patient has an appropriate list of medications to take at home. Discharge medications Continued medications* albuterol sulfate (Ventolin [...] 0.5 tablet oral daily every evening * gvvsfxzyjkfx-Bp-cici-minerals (Women's Daily Multivitamin) 18 mg-0.4 mg-450 mg [...]
--- OUTSIDE RECORDS SUMMARY | 2017-02-26 16:46 | XMS REPORT | Summary of Care ---
Author Author Chapito Muro Organization Unknown Address [address] [phone] Phone Unavailable Care Team Providers Care Global Marketing Manager Name Role Phone Ferdinand Hammonds, Cece [...] Stefan Streeter M.D. * Start 06-Dec-2012 Active Alendronate Sodium 70 MG Oral Tablet [...] NAUSEA * Quantity: 30 Refills: 0 Chapito uMro * Start 25-Jun-2016 Active Propranolol HCl - 40 MG Oral Tablet take 11/2 tablets twice daily * Quantity: 90 Refills: 1 Chapito Muro * Start 07-Mar-2015 Active Allopurinol 300 MG Oral Tablet TAKE 1 TABLET DAILY. * Quantity: 30 Refills: 3 Ellie Muroy * Start 15-Aug-2014 Active Plavix 75 MG [...] Tablet * Refills: 0 Stefan Streeter M.D. Start 16-Sep-2016 Active Ciprofloxacin HCl - 250 MG Oral Tablet TAKE 1 TABLET EVERY 12 HOURS DAILY. for 5 days * Quantity: 10 Refills: 0 Bhaskar Chapito * Start 23-Sep-2016 Active Potassium Chloride Summer ER 10 MEQ Oral Tablet Extended Release take 1 tab daily * Quantity: 90 Refills: 3 Bhaskar Chapito * Start 19-Jan-2014 Active Adult Aspirin EC Low Strength 81 MG Oral Tablet Delayed Release * Refills: 0 Henry Mendoza M.D. * Start 05-Jul-2013 Active Brovana 15 MCG/2ML Inhalation Nebulization Solution USE VIA NEBULIZER TWO TIMES DAILY (dx:J44.9) * Quantity: 120 Refills: 11 Stefan Streeter M.D. * Start 23-Nov-2012 Active Allergies and Adverse Reactions Name [...] Immunization Name Dates Details Influenza Lot #: [id number] on: 02-Aug-2010 Influenza Lot #: [id number] on: 24-Aug-2012 Pneumo (Pneumovax) Lot #: [id number] on: 24-Aug-2012 Fluzone High-Dose 0.5 ML Intramuscular Suspension Prefilled Syringe Lot #: [id number] on: 25-Jul-2015 Tdap (Adacel) Lot #: [id number] on: 05-Nov-2015 Fluzone High-Dose 0.5 ML Intramuscular Suspension Prefilled Syringe Lot #: [id number] on: 02-Sep-2016 Family History Name Dates Details [...] m2 Status: Results Date Description Value Details 25-Aug-2016 10:08 LIPID PROFILE 1184 Comments: Fastin [...] low threshold) Range: >60 EST GFR, NON-AFR FIJIAN 28 ml/min (Below low threshold) Range: >60 [...] low threshold) Range: >60 EST GFR, NON-AFR FIJIAN 29 ml/min (Below low threshold) Range: >60 [...] 11:23 AM) to (11.3) by [facility].---- - RBC 3.58 mil/uL (Below low [...] low threshold) Range: >60 EST GFR, NON-AFR FIJIAN 32 ml/min (Below low threshold) Range: >60 [...] Present HJ BODIES Present 09-Sep-2016 12:58 Haptoglobin [id number] Comments: SIGNED ORDER FILED IN OFFICETesting performed at: [DA] [facility], [address] [place] [address], [place], [address], , Grinder Set Up Operator Thread Tool: KEILA Carranza MD HAPTOGLOBIN 189 mg/dL Range: 34-200 15:56 VIVIAN PE and FLC Serum [id number] Comments: SIGNED ORDER FILED IN OFFICETesting performed at: [DA] [facility], [address] [place] [address], [place], [address], , Grinder Set Up Operator Thread Tool: KEILA Carranza MD IMMUNOGLOBULIN G, QN, SERUM 285 mg/dL (Below low threshold) Range: 700- 1600 IMMUNOGLOBULIN A, QN, SERUM 26 mg/dL (Below low threshold) Range: 64-422 IMMUNOGLOBULIN M, QN, SERUM <5 mg/dL (Below low threshold) Range: 26-217 Comments: Verified by repeat analysis----- PROTEIN, TOTAL, SERUM 5.9 g/dL (Below low threshold) Range: 6.0-8.5 ALBUMIN 3.4 g/dL Range: 2.9-4.4 GRRVK-3-IMTPCHPV 0.4 g/dL Range: 0.0-0.4 XTYZH-9-JEMYBMUR 0.9 g/dL Range: 0.4-1.0 BETA GLOBULIN 0.9 g/dL Range: 0.7-1.3 GAMMA GLOBULIN 0.3 g/dL (Below low threshold) Range: 0.4-1.8 M-SPIKE Not Observed g/dL Range: Not Observed GLOBULIN, TOTAL 2.5 g/dL Range: 2.2-3.9 A/G RATIO 1.4 Range: 0.7-1.7 IMMUNOFIXATION RESULT, SERUM Comment Comments: An apparent normal immunofixation pattern.----- PLEASE NOTE: Comment Comments: Protein electrophoresis scan will follow via computer,mail, or mds nurse delivery.----- FREE KAPPA LT CHAINS,S 12.85 mg/L [...]
--- OUTSIDE RECORDS SUMMARY | 2017-02-26 16:46 | XMS REPORT ---
Author Author GENERATED, SYSTEM Organization Unknown Address Unknown Phone Unavailable Care Team Providers Care Cryptologic Support Specialist Name Role Phone MD CORTEZ, [facility] [phone] Reason For Visit Reason for Visit from 05/08/2016 10:05 AM:* Pt Stated Reason for Adm : IVIG Chief Complaint D83.8 Social History Functional Status Functional Status from 05/08/2016 10:05 AM:* LOC : Alert * Oriented To : Person,Place,Time Vital Signs Hospital Vital Signs from 05/08/2016 1:40 PM:* Height : 5/0 ft,in * Pulse : 60 * BP : 145/72 Hospital Vital Signs from 05/08/2016 1:26 PM:* Height : 5/0 ft,in * Pulse : 60 * BP : 159/78 Hospital Vital Signs from 05/08/2016 1:10 PM:* Height : 5/0 ft,in * Pulse : 63 * BP : 151/73 Hospital Vital Signs from 05/08/2016 12:55 PM:* Height : 5/0 ft,in * Pulse : 58 * BP : 136/66 Hospital Vital Signs from 05/08/2016 12:40 PM:* Height : 5/0 ft,in * Pulse : 62 * BP : 130/63 Hospital Vital Signs from 05/08/2016 12:26 PM:* Height : 5/0 ft,in * Pulse : 65 * BP : 151/71 Hospital Vital Signs from 05/08/2016 12:10 PM:* Height : 5/0 ft,in * Pulse : 66 * BP : 163/79 Hospital Vital Signs from 05/08/2016 11:57 AM:* Height : 5/0 ft,in * Pulse : 66 * BP : 150/40 Hospital Vital Signs from 05/08/2016 11:40 AM:* Height : 5/0 ft,in * Pulse : 62 * BP : 172/85 Hospital Vital Signs from 05/08/2016 11:25 AM:* Height : 5/0 ft,in * Pulse : 60 * BP : 151/81 Hospital Vital Signs from 05/08/2016 11:10 AM:* Height : 5/0 ft,in * Pulse : 60 * BP : 158/74 Hospital Vital Signs from 05/08/2016 10:55 AM:* Height : 5/0 ft,in * Pulse : 62 * BP : 150/74 Hospital Vital Signs from 05/08/2016 10:05 AM:* Weight : 53.977/ kg * Weight : 119/ lbs,oz * Height : 5/0 ft,in * Height : 5/0 ft,in * Temperature : 96.9 F * Pulse : 65 * Respirations : 18 * BP : 165/76 Results Chemistry from 05/08/2016 10:16 AMCREATININE 1.54 MG/DL H (0.55-1.02 MG/DL) *GFR EST NON AFR VATICAN CITIZEN 30 ML/MIN *GFR EST AFR AMER 35 [...]
--- OUTSIDE RECORDS SUMMARY | 2017-02-26 16:46 | XMS REPORT | Summary of Care ---
Author Author Krunal Lennon M.D. Organization Unknown Address Unknown Phone Unavailable Care Team Providers Care Bird Tender Name Role Phone Cece Streeter M.D. [...] Immunization Name Dates Details Influenza Lot #: [id number] on: 02-Aug-2010 Influenza Lot #: [id number] on: 24-Aug-2012 Pneumo (Pneumovax) Lot #: [id number] on: 24-Aug-2012 Fluzone High-Dose 0.5 ML Intramuscular Suspension Prefilled Syringe Lot #: [id number] on: 25-Jul-2015 Tdap (Adacel) Lot #: [id number] on: 05-Nov-2015 Family History Name Dates Details [...] /HPF Range: 0-10 -Jul-2016 10:59 URINE CULTURE [id number] Comments: [facility] performed at: [facility], [address] [place] [address], [address], Breast Trimmer: Gigi Alberto D.O., MPHQuest Collection Date/Time: [id number] Results Received Date/Time: [id number] Reported Date/Time: [id number] FASTING:NOQuest performed at: [facility], [address] [place] [address], [phone], Breast Trimmer: Gigi Alberto D.O., MPHQuest Collection Date/Time: [id number] Results Received Date/Time: [id number] Reported Date/Time: [id number] FASTING:NOQuest performed at: [facility], [address] [place] [address], [phone], Breast Trimmer: Gigi Alberto D.O., MPHQuest Collection Date/Time: Results Received Date/Time: [id number] Reported Date/Time: [id number] FASTING:NO CULTURE, URINE, ROUTINE SEE NOTE (Abnormal) Comments: CULTURE, URINE, ROUTINE MICRO NUMBER: [id number] TEST STATUS: FINAL SPECIMEN SOURCE : URINE [...] low threshold) Range: >60 EST GFR, NON-AFR ALBANIAN 28 ml/min (Below low threshold) Range: >60 [...] M.D. On 02-Sep-2016 14:15 Interventions Provided Labs/Procedures/Imaging* Iron Panel with TIBC 1612; To be Done: 18 Aug 2016 Instructions Name Dates Details Instructions [...]
--- OUTSIDE RECORDS SUMMARY | 2017-02-26 16:47 | XMS REPORT | Summary of Care ---
Author Author Chapito Muro Organization Unknown Address [address] [place] [phone] Phone Unavailable Care Team Providers Care Medical Billing Coordinator Name Role Phone Ccee Streeter M.D. Unavailable Unavailable Chapito Muro Unavailable [...] Immunization Name Dates Details Influenza Lot #: [id number] Administered on:02-Aug-2010 Influenza Lot #: [id number] Administered on:24-Aug-2012 Pneumo (Pneumovax) Lot #: [id number] Administered on:24-Aug-2012 Fluzone High-Dose 0.5 ML Intramuscular Suspension Prefilled Syringe Lot #: [id number] Administered on:25-Jul-2015 Tdap (Adacel) Lot #: [id number] Administered on:05-Nov-2015 Family History natural son* Name [...] low threshold) Range: >60 EST GFR, NON-AFR TURKMEN 44 ml/min (Below low threshold) Range: >60 Comments: EST GFR is reported in ml/min per 1.73 m2 of body surface area. For -Japanese, please multiple result by 1.2.----- GLUCOSE 108 [...] X HIP COMP (MIN 2V) RT (Better) Plan of Care Planned Observations* Name [...] Problem not documented On 06-Feb-2016 10:30 Appointment; Steafn Streeter Encounter Diagnosis: Problem not documented On [...]
--- OUTSIDE RECORDS SUMMARY | 2017-02-26 16:47 | XMS REPORT | Summary of Care ---
Author Author Krunal Lennon M.D. Unknown Address [address] [place], [place] [id number] Phone Unavailable Care Team Providers Care Authorization Manager Name Role Phone Ferdinand Hammonds, Cece [...] Status: Active Cough (786.2, R05) Status: Active Anemia of renal disease (285.21, [...] Immunization Name Dates Details Influenza Lot #: [id number] Administered on:02-Aug-2010 Influenza Lot #: [id number] Administered on:24-Aug-2012 Pneumo (Pneumovax) Lot #: [id number] Administered on:24-Aug-2012 Fluzone High-Dose 0.5 ML Intramuscular Suspension Prefilled Syringe Lot #: [id number] Administered on:25-Jul-2015 Family History natural son* Name [...] low threshold) Range: >60 EST GFR, NON-AFR HAITIAN 32 ml/min (Below low threshold) Range: >60 Comments: EST GFR is reported in ml/min per 1.73 m2 of body surface area. For -South African, please multiple result by 1.2.----- GLUCOSE 100 [...] Diff 7150 Comments: ORDER IN BOOK UNDER NOVEMBERManual differential indicated. WBC 12.9 K/uL (Above high [...] low threshold) Range: >60 EST GFR, NON-AFR HAITIAN 38 ml/min (Below low threshold) Range: >60 Comments: EST GFR is reported in ml/min per 1.73 m2 of body surface area. For -South African, please multiple result by 1.2.----- BUN:CREATININE RATIO [...] low threshold) Range: >60 EST GFR, NON-AFR HAITIAN 31 ml/min (Below low threshold) Range: >60 Comments: EST GFR is reported in ml/min per 1.73 m2 of body surface area. For -South African, please multiple result by 1.2.----- BUN:CREATININE RATIO [...] IRON SATURATION 27 % (Better) Range: 20-55 Plan of Care Planned Observations* Name Dates [...]
--- OUTSIDE RECORDS SUMMARY | 2017-02-26 16:47 | XMS REPORT | Summary of Care ---
Author Author Chapito Muro Organization Unknown Address [address] [place], [place] [phone] Phone Unavailable Care Team Providers Care Wet Wash Assembler Name Role Phone Ferdinand Hammonds, Cece Unavailable [...] ALLERGY SYMPTOMS * Quantity: 1 Refills: 3 BhaskarChapito * Start 09-Jul-2016 Active Digoxin 125 MCG Oral Tablet Take one tablet by mouth daily * Quantity: 30 Refills: 1 Chapito Muro * Start 09-Jul-2016 Active DULoxetine HCl - 60 MG Oral Capsule Delayed Release Particles TAKE 1 CAPSULE AT BEDTIME. * Quantity: 30 Refills: 5 EdChapito benitez * Start 10-Oct-2013 Active Levothyroxine Sodium 25 [...] 0 Bhaskar Chapito * Start 23-Sep-2016 Active LORazepam 0.5 MG Oral Tablet TAKE 1 TABLET TWICE DAILY. * Quantity: 60 Refills: 1 BhaskarNewChapito * Start 15-Aug-2014 Active Allergies and Adverse [...] Biopsy Completed: History of Aortic Valve Replacement Urinalysis, Reflex to Microscopic or Culture PRN [id number] Ordered: 24-Nov-2016 Immunization Name Dates Details Influenza Lot #: [id number] on: 02-Aug-2010 Influenza Lot #: [id number] on: 24-Aug-2012 Pneumo (Pneumovax) Lot #: [id number] on: 24-Aug-2012 Fluzone High-Dose 0.5 ML Intramuscular Suspension Prefilled Syringe Lot #: [id number] on: 25-Jul-2015 Tdap (Adacel) Lot #: [id number] on: 05-Nov-2015 Fluzone High-Dose 0.5 ML Intramuscular Suspension Prefilled Syringe Lot #: [id number] on: 02-Sep-2016 Family History Name Dates Details [...] low threshold) Range: >60 EST GFR, NON-AFR CANADIAN 38 ml/min (Below low threshold) Range: >60 [...] >60 ml/min Range: >60 EST GFR, NON-AFR CANADIAN 50 ml/min (Below low threshold) Range: >60 Comments: EST GFR is reported in ml/min per 1.73 m2 of body surface area. ----- BUN:CREATININE RATIO 37 GLUCOSE 98 mg/dL Range: 70-100 CALCIUM 8.5 mg/dL Range: 8.5-10.1 15:41 TROPONIN I 3451 TROPONIN I <0.04 ng/mL Range: .09 Comments: Called to LaurieVerified by Repeat Analysis<0.10 ng/ml=Negative for MI0.10-0.59 ng/ml=Indeterminate for MI0.60-1.50 ng/ml=Suggestive of [place]----- 15:43 CT AB/ PEL WITHOUT IV CONTRAST [...] /HPF Range: 0-10 21-Nov-2016 14:34 URINE CULTURE [id number] Comments: [employer] performed at: [facility], [address] [place] [address], [address], Fruit And Vegetable Parer: Gigi Alberto D.O., MPHQuest Collection Date/Time: [id number] Results Received Date/Time: [id number] Reported Date/Time: [id number] FASTING:NOQuest performed at: [facility], [address] [place] [address], [phone], Fruit And Vegetable Parer: Gigi Alberto D.O., MPHQuest Collection Date/Time: [id number] Results Received Date/Time: [id number] Reported Date/Time: FASTING:NO CULTURE, URINE, ROUTINE SEE NOTE (Abnormal) Comments: CULTURE, URINE, ROUTINE MICRO NUMBER: [id number] TEST STATUS: FINAL SPECIMEN SOURCE : URINE [...] to to confirm susceptibility to parenteral cefazolin.[KS]----- -Nov-2016 13:46 CBC w/ Auto Diff 7150 Comments: [...] 3.00 mil/uL (Below low threshold) Range: 3.60-5.00 Plan of Care Name Dates Details Planned Observations THYROID STIM. HORMONE 3602 On 20-Nov-2016 Intent Planned Goals not documented Planned Encounters Appointment; Provider: Stefan Streeter M.D. On 19-Mar-2017 14:00 Appointment; Provider: Schedule Radiology On 03-Feb-2017 08:00 Appointment; Provider: Krunal Lennon M.D. On 30-Dec-2016 13:30 Appointment; Provider: Chapito Muro On 02-Dec-2016 11:15 Appointment; Provider: Schedule Radiology On 19-Nov-2016 15:30 Instructions Name Dates Details Instructions not documented [...]
--- OUTSIDE RECORDS SUMMARY | 2017-02-26 16:47 | XMS REPORT ---
Author Author GENERATED, SYSTEM Organization Unknown Address Unknown Phone Unavailable Care Team Providers Care Composition Stone Applicator Name Role Phone MD YEHUDA, CHINO PP [phone] Reason For Visit Reason for Visit from 06/13/2015 10:50 AM:* Pt Stated Reason for Adm : IVIG infusion Chief Complaint IV,CVIDS Social History Functional Status Functional Status from 06/13/2015 10:50 AM:* LOC : Alert * Oriented To : Person,Place,Time,Event Vital Signs Hospital Vital Signs from 06/13/2015 3:25 PM:* Height : 5/0 ft,in * Pulse : 59 * BP : 133/69 Hospital Vital Signs from 06/13/2015 3:10 PM:* Height : 5/0 ft,in * Pulse : 58 * BP : 116/58 Hospital Vital Signs from 06/13/2015 2:55 PM:* Height : 5/0 ft,in * Pulse : 59 * BP : 119/73 Hospital Vital Signs from 06/13/2015 2:40 PM:* Height : 5/0 ft,in * Pulse : 58 * BP : 123/71 Hospital Vital Signs from 06/13/2015 2:25 PM:* Height : 5/0 ft,in * Pulse : 59 * BP : 124/60 Hospital Vital Signs from 06/13/2015 2:10 PM:* Height : 5/0 ft,in * Pulse : 60 * BP : 115/48 Hospital Vital Signs from 06/13/2015 1:55 PM:* Height : 5/0 ft,in * Pulse : 62 * BP : 121/62 Hospital Vital Signs from 06/13/2015 1:39 PM:* Height : 5/0 ft,in * Pulse : 60 * Respirations : 18 * BP : 124/64 Hospital Vital Signs from 06/13/2015 1:25 PM:* Height : 5/0 ft,in * Pulse : 42 * Respirations : 18 * BP : 133/65 Hospital Vital Signs from 06/13/2015 1:10 PM:* Height : 5/0 ft,in * Pulse : 59 * Respirations : 18 * BP : 133/64 Hospital Vital Signs from 06/13/2015 12:39 PM:* Height : 5/0 ft,in * Pulse : 59 * Respirations : 18 * BP : 139/69 Hospital Vital Signs from 06/13/2015 12:25 PM:* Height : 5/0 ft,in * Pulse : 58 * Respirations : 18 * BP : 153/48 Hospital Vital Signs from 06/13/2015 12:10 PM:* Height : 5/0 ft,in * Pulse : 59 * Respirations : 18 * BP : 147/69 Hospital Vital Signs from 06/13/2015 11:50 AM:* Height : 5/0 ft,in * Pulse : 59 * Respirations : 18 * BP : 139/79 Hospital Vital Signs from 06/13/2015 11:35 AM:* Height : 5/0 ft,in * Pulse : 59 * Respirations : 18 * BP : 130/77 Hospital Vital Signs from 06/13/2015 11:20 AM:* Height : 5/0 ft,in * Pulse : 59 * Respirations : 18 * BP : 125/78 Hospital Vital Signs from 06/13/2015 11:05 AM:* Height : 5/0 ft,in * Temperature : 97.0 F * Pulse : 59 * Respirations : 18 * BP : 138/81 Results Problems Encounter Diagnosis No relevant problems [...]
--- OUTSIDE RECORDS SUMMARY | 2017-02-26 16:48 | XMS REPORT | Summary of Care ---
Author Author Krunal Lennon M.D. Unknown Address Unknown Phone Unavailable Care Team Providers Care Tractor Sweeper Driver Name Role Phone Ferdinand Hammonds, Cece Unavailable Unavailable Chapito Muro Unavailable Unavailable Reji Hammonds TLinda Tariq Unavailable Unavailable Abdiaziz Meng M.D. Unavailable Unavailable [...] every morning * Quantity: 30 Refills: 0 AustyndemetrisNewChapito * Start 16-Jan-2017 Active DULoxetine HCl - 60 MG Oral Capsule Delayed Release Particles take 1 capsule by mouth daily * Quantity: 30 Refills: 2 AustyndemetrisNewChapito * Start 16-Jan-2017 Active Clopidogrel Bisulfate 75 [...] Immunization Name Dates Details Influenza Lot #: [id number] on: 02-Aug-2010 Influenza Lot #: [id number] on: 24-Aug-2012 Pneumo (Pneumovax) Lot #: [id number] on: 24-Aug-2012 Fluzone High-Dose 0.5 ML Intramuscular Suspension Prefilled Syringe Lot #: [id number] on: 25-Jul-2015 Tdap (Adacel) Lot #: [id number] on: 05-Nov-2015 Fluzone High-Dose 0.5 ML Intramuscular Suspension Prefilled Syringe Lot #: [id number] on: 02-Sep-2016 Family History Name Dates Details [...] 2.40 mil/uL (Below low threshold) Range: 3.60-5.00 Plan of Care Name Dates Details Planned Observations Planned Goals not documented Planned Encounters Appointment; Provider: Stefan Streeter M.D. On 19-Mar-2017 14:00 Appointment; Provider: Krunal Lennon M.D. On 03-Mar-2017 14:45 Appointment; Provider: Chapito Muro On 11-Feb-2017 15:30 Instructions Name Dates Details Instructions not [...] Problem not documented On 25-Aug-2016 10:00 Appointment; rKunal Lennon M.D. Encounter Diagnosis: Problem not documented [...]
--- OUTSIDE RECORDS SUMMARY | 2017-02-26 16:48 | XMS REPORT | Summary of Care ---
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 Dyspnea on exertion (786.09, R06.09) Status: Active Anemia of renal disease (285.21, D63.1) Status: Active CKD (chronic kidney disease), stage III (585.3, N18.3) Status: Active Essential hypertension (401.9, I10) Status: Active Chronic obstructive pulmonary disease (496, J44.9) Status: Active Cough (786.2, R05) Status: Active [...] Refills: 11 Stefan Streeter M.D.* Started 01-Nov-2015 Active Allergies and Adverse Reactions Name Dates [...] RENAL PROFILE 1240 Ordered:22-Oct-2015 HEMOGRAM 7305 Ordered:22-Oct-2015 Immunization Name Dates Details Influenza Lot #: [id number] Administered on:02-Aug-2010 Influenza Lot #: [id number] Administered on:24-Aug-2012 Pneumo (Pneumovax) Lot #: [id number] Administered on:24-Aug-2012 Fluzone High-Dose 0.5 ML Intramuscular Suspension Prefilled Syringe Lot #: [id number] Administered on:25-Jul-2015 Family History natural son* Name [...] smoker Vital Signs Date Test Result Details 01-Nov-2015 14:03 BP Systolic 130 mm[Hg] Status: [...] low threshold) Range: >60 EST GFR, NON-AFR FRENCH 38 ml/min (Below low threshold) Range: >60 Comments: EST GFR is reported in ml/min per 1.73 m2 of body surface area. For -Equatorial Guinean, please multiple result by 1.2.----- BUN:CREATININE RATIO [...] low threshold) Range: >60 EST GFR, NON-AFR FRENCH 31 ml/min (Below low threshold) Range: >60 Comments: EST GFR is reported in ml/min per 1.73 m2 of body surface area. For -Equatorial Guinean, please multiple result by 1.2.----- BUN:CREATININE RATIO [...] low threshold) Range: >60 EST GFR, NON-AFR FRENCH 30 ml/min (Below low threshold) Range: >60 Comments: EST GFR is reported in ml/min per 1.73 m2 of body surface area. For -Equatorial Guinean, please multiple result by 1.2.----- GLUCOSE 98 [...] Planned Encounters* Appointment; Provider: Stefan Streeter On 31-Jan-2016 13:15 * Appointment; Provider: Krunal Lennon On 25-Dec-2015 14:00 * Appointment; Provider: Chapito Muro On 20-Nov-2015 10:45 * Appointment; Provider: Benigno Holt On [...]
--- OUTSIDE RECORDS SUMMARY | 2017-02-26 16:49 | XMS REPORT | Summary of Care ---
Author Author Chapito Muro Organization Unknown Address [address] [place], [place] [phone] Phone Unavailable Care Team Providers Care Locksmith Name Role Phone Ferdinand Hammonds, Cece Unavailable [...] DAY (dx:J44.9) * Quantity: 120 Refills: 11 eFrdinand Hammonds Stefan Zhao * Start 01-Nov-2015 Active [...] Immunization Name Dates Details Influenza Lot #: [id number] on: 02-Aug-2010 Influenza Lot #: [id number] on: 24-Aug-2012 Pneumo (Pneumovax) Lot #: [id number] on: 24-Aug-2012 Fluzone High-Dose 0.5 ML Intramuscular Suspension Prefilled Syringe Lot #: [id number] on: 25-Jul-2015 Tdap (Adacel) Lot #: [id number] on: 05-Nov-2015 Fluzone High-Dose 0.5 ML Intramuscular Suspension Prefilled Syringe Lot #: [id number] on: 02-Sep-2016 Family History Name Dates Details [...] low threshold) Range: >60 EST GFR, NON-AFR MOZAMBICAN 38 ml/min (Below low threshold) Range: >60 [...] >60 ml/min Range: >60 EST GFR, NON-AFR MOZAMBICAN 50 ml/min (Below low threshold) Range: >60 Comments: EST GFR is reported in ml/min per 1.73 m2 of body surface area. ----- BUN:CREATININE RATIO 37 GLUCOSE 98 mg/dL Range: 70-100 CALCIUM 8.5 mg/dL Range: 8.5-10.1 15:41 TROPONIN I 3451 TROPONIN I <0.04 ng/mL Range: .09 Comments: Called to LaurieVerified by Repeat Analysis<0.10 ng/ml=Negative for MI0.10-0.59 ng/ml=Indeterminate for MI0.60-1.50 ng/ml=Suggestive of [place]----- 15:43 CT AB/ PEL WITHOUT IV CONTRAST [...] /HPF Range: 0-10 21-Nov-2016 14:34 URINE CULTURE [id number] Comments: [employer] [employer] [facility]: [facility], [address] [place] [address], [address], Cashier Associate: Gigi Alberto D.O., MPHQuest Collection Date/Time: [id number] Results Received Date/Time: [id number] Reported Date/Time: [id number] FASTING:NOQuest performed at: [facility], [address] [place] [address], [phone], Cashier Associate: Gigi Alberto D.O., MPHQuest Collection Date/Time: [id number] Results Received Date/Time: [id number] Reported Date/Time: FASTING:NO CULTURE, URINE, ROUTINE SEE NOTE (Abnormal) Comments: CULTURE, URINE, ROUTINE MICRO NUMBER: [id number] TEST STATUS: FINAL SPECIMEN SOURCE : URINE [...] not documented Planned Encounters Appointment; Provider: Stefan Streteer M.D. On 19-Mar-2017 14:00 Appointment; Provider: Schedule [...]
--- OUTSIDE RECORDS SUMMARY | 2017-02-26 16:49 | XMS REPORT | Summary of Care ---
Author Author Chapito Muro Organization Unknown Address [address] [place], [place] [id number] Phone Unavailable Care Team Providers Care Window Installer Name Role Phone Cece Streeter M.D. Unavailable [...] Refills: 0 Chapito Muro * Started 15-Aug-2014 ActiveAlendronate Sodium 70 MG Oral Tablet TAKE 1 TABLET WEEKLY BY MOUTH IN THE MORNING ON AN EMPTY STOMACH WITH 8 OZ. OF WATER, NOTHING ELSE FOR 30 MINUTES. * Quantity: 12 Refills: 3 Chapito Muro * Started 06-Feb-2016 Active Allergies and Adverse Reactions Name Dates [...] Immunization Name Dates Details Influenza Lot #: [id number] Administered on:02-Aug-2010 Influenza Lot #: [id number] Administered on:24-Aug-2012 Pneumo (Pneumovax) Lot #: [id number] Administered on:24-Aug-2012 Fluzone High-Dose 0.5 ML Intramuscular Suspension Prefilled Syringe Lot #: [id number] Administered on:25-Jul-2015 Tdap (Adacel) Lot #: [id number] Administered on:05-Nov-2015 Family History natural son* Name [...] low threshold) Range: >60 EST GFR, NON-AFR [place] 44 ml/min (Below low threshold) Range: >60 Comments: EST GFR is reported in ml/min per 1.73 m2 of body surface area. For -[place], please multiple result by 1.2.----- GLUCOSE 108 [...] (Better) MACROCYT Mod (Better) HYPOCHRO Slight (Better) 7-Apr-2016 13:26 XRay CHEST-PA & LAT Comments: Exam [...]
--- OUTSIDE RECORDS SUMMARY | 2017-02-26 16:49 | XMS REPORT ---
Author Author GENERATED, SYSTEM Organization Unknown Address Unknown Phone Unavailable Care Team Providers Care Manager Project Management Name Role Phone MD CORTEZ, EMILI PP [phone] Reason For Visit Reason for Visit from 10/31/2015 11:00 AM:* Pt Stated Reason for Adm : IVIG Chief Complaint IV,CVIDS,D83.8 Social History Functional Status Functional Status from 10/31/2015 11:00 AM:* LOC : Alert * Oriented To : Person,Place,Time Vital Signs Hospital Vital Signs from 10/31/2015 4:10 PM:* Height : 5/0 ft,in * Pulse : 60 * BP : 135/70 Hospital Vital Signs from 10/31/2015 3:55 PM:* Height : 5/0 ft,in * Pulse : 60 * BP : 134/71 Hospital Vital Signs from 10/31/2015 3:40 PM:* Height : 5/0 ft,in * Pulse : 60 * BP : 143/66 Hospital Vital Signs from 10/31/2015 3:25 PM:* Height : 5/0 ft,in * Pulse : 61 * BP : 127/62 Hospital Vital Signs from 10/31/2015 3:10 PM:* Height : 5/0 ft,in * Pulse : 60 * BP : 112/60 Hospital Vital Signs from 10/31/2015 2:55 PM:* Height : 5/0 ft,in * Pulse : 60 * BP : 122/62 Hospital Vital Signs from 10/31/2015 2:40 PM:* Height : 5/0 ft,in * Pulse : 60 * BP : 106/60 Hospital Vital Signs from 10/31/2015 2:25 PM:* Height : 5/0 ft,in * Pulse : 60 * BP : 110/60 Hospital Vital Signs from 10/31/2015 2:10 PM:* Height : 5/0 ft,in * Pulse : 60 * BP : 110/61 Hospital Vital Signs from 10/31/2015 1:55 PM:* Height : 5/0 ft,in * Pulse : 59 * BP : 118/62 Hospital Vital Signs from 10/31/2015 1:40 PM:* Height : 5/0 ft,in * Pulse : 59 * BP : 126/60 Hospital Vital Signs from 10/31/2015 1:25 PM:* Height : 5/0 ft,in * Pulse : 59 * BP : 132/71 Hospital Vital Signs from 10/31/2015 1:10 PM:* Height : 5/0 ft,in * Pulse : 59 * BP : 166/73 Hospital Vital Signs from 10/31/2015 12:55 PM:* Height : 5/0 ft,in * Pulse : 60 * BP : 163/80 Hospital Vital Signs from 10/31/2015 12:38 PM:* Height : 5/0 ft,in * Pulse : 60 * BP : 132/70 Hospital Vital Signs from 10/31/2015 12:23 PM:* Height : 5/0 ft,in * Pulse : 60 * BP : 136/75 Hospital Vital Signs from 10/31/2015 12:08 PM:* Height : 5/0 ft,in * Temperature : 97.4 F * Pulse : 60 * Respirations : 18 * BP : 130/68 Results Chemistry from 10/31/2015 11:10 AMSODIUM 140 MMOL/L (136-145 MMOL/L) POTASSIUM 4.1 MMOL/L (3.5-5.1 MMOL/L) CHLORIDE 100 MMOL/L (98-107 MMOL/L) TCO2 34.8 MMOL/L H (21.0-32.0 MMOL/L) *ANION GAP 5.2 MMOL/L L (8.0-16.0 MMOL/L) BUN 25 MG/DL H (7-18 MG/DL) CREATININE 1.30 MG/DL H (0.55-1.02 MG/DL) *BUN/CREATININE RATIO 19.2 H (9.1-17.0 ) GLUCOSE 87 MG/DL (65-99 MG/DL) *GFR EST NON AFR UZBEK 38 ML/MIN *GFRA EST AFR AMER 44 ML/MIN CALCIUM 9.6 MG/DL (8.5-10.1 MG/DL) Problems Encounter Diagnosis No relevant problems exist. [...]
--- OUTSIDE RECORDS SUMMARY | 2017-02-26 16:49 | XMS REPORT | Summary of Care ---
Author Author Stuart Blancas M.D. Organization Unknown Address [address] [place], [place] [id number] Phone Unavailable Care Team Providers Care Clip Wrapper Name Role Phone Ferdinand Hammonds, Ceec Unavailable Unavailable Chapito Muro Unavailable Unavailable Reji [...] 1 TABLET AT BEDTIME. * Refills: 0 Chpaito Muro * Started 31-Aug-2009 ActiveOxygen 2 LPM [...] 7305 Ordered:31-Dec-2015 Parathyroid Hormone Intact 3101 Ordered:31-Dec-2015 AMYLASE 1250 Ordered:20-Feb-2016 Lipase 1275 Ordered:20-Feb-2016 BNP 3103 Ordered:20-Feb-2016 Comprehensive Metabolic Panel 1212 Ordered:20-Feb-2016 Urinalysis, Reflex to Microscopic or Culture PRN 8005 Ordered:20-Feb-2016 CBC w/ Auto Diff 7150 Ordered:20-Feb-2016 XRay CHEST-PA & LAT Ordered:23-Jan-2016 CT AB/ PEL WITH IV AND ORAL CONTRAST Ordered:20-Feb-2016 XRay CHEST-PA & LAT Ordered:20-Feb-2016 Immunization Name Dates Details Influenza Lot #: [id number] Administered on:02-Aug-2010 Influenza Lot #: [id number] Administered on:24-Aug-2012 Pneumo (Pneumovax) Lot #: [id number] Administered on:24-Aug-2012 Fluzone High-Dose 0.5 ML Intramuscular Suspension Prefilled Syringe Lot #: [id number] Administered on:25-Jul-2015 Tdap (Adacel) Lot #: [id number] Administered on:05-Nov-2015 Family History natural son* Name [...] low threshold) Range: >60 EST GFR, NON-AFR [place] CITIZ[place] 44 ml/min (Below low threshold) Range: >60 Comments: EST GFR is reported in ml/min per 1.73 m2 of body surface area. For -[place], please multiple result by 1.2.----- GLUCOSE 98 [...]
--- OUTSIDE RECORDS SUMMARY | 2017-02-26 16:50 | XMS REPORT ---
Author Author GENERATED, SYSTEM Organization Unknown Address Unknown Phone Unavailable Care Team Providers Care Dental Office Assistant Name Role Phone MD CORTEZ, [facility] [phone] Reason For Visit Reason for Visit from 06/21/2016 9:47 PM:* Pt Stated Reason for Adm : Symptomatic Anemia Chief Complaint SYMPTOMATIC ANEMIA Social History Social History from 06/24/2016 10:17 AM:* Tobacco Use? : Never Smoker Social History from 06/21/2016 9:47 PM:* Tobacco Use? : Never Smoker Functional Status Functional Status from 06/24/2016 7:42 AM:* LOC : Alert * Oriented To : Person,Place,Time,Event * Weight Bearing Status : Full * Assist Level : Partial * # Assists : 1 Functional Status from 06/23/2016 8:49 PM:* LOC : Alert * Oriented To : Person,Time * Weight Bearing Status : Full * Assist Level : Independent * # Assists : 1 Functional Status from 06/23/2016 7:32 AM:* LOC : Alert * Oriented To : Person,Place,Time,Event * Weight Bearing Status : Full * Assist Level : Partial * # Assists : 1 Functional Status from 06/22/2016 7:37 PM:* LOC : Alert * Oriented To : Person,Place,Time,Event * Weight Bearing Status : Full * Assist Level : Partial * # Assists : 1 Functional Status from 06/22/2016 1:35 PM:* # Assists : 1 Functional Status from 06/22/2016 8:25 AM:* LOC : Alert * Oriented To : Person,Place,Time,Event * Weight Bearing Status : Full * Assist Level : Partial * # Assists : 1 Functional Status from 06/21/2016 9:47 PM:* LOC : Alert * Oriented To : Person,Place,Time,Event * Weight Bearing Status : Full * Assist Level : Partial * # Assists : 2 Vital Signs Hospital Vital Signs from 06/24/2016 9:24 AM:* Pulse : 58 Hospital Vital Signs from 06/24/2016 7:23 AM:* Height : 5/0 ft,in * Temperature : 97.6 F * Pulse : 63 * Respirations : 16 * BP : 136/63 Hospital Vital Signs from 06/23/2016 10:36 PM:* Height : 5/0 ft,in * Temperature : 95.2 F * Pulse : 65 * Respirations : 16 * BP : 139/63 Hospital Vital Signs from 06/23/2016 6:45 PM:* Height : 5/0 ft,in * Temperature : 98.2 F * Pulse : 58 * Respirations : 16 * BP : 115/49 Hospital Vital Signs from 06/23/2016 6:30 PM:* Height : 5/0 ft,in * Temperature : 98.0 F * Pulse : 59 * Respirations : 16 * BP : 105/55 Hospital Vital Signs from 06/23/2016 6:15 PM:* Height : 5/0 ft,in * Temperature : 99.2 F * Pulse : 59 * Respirations : 16 * BP : 101/51 Hospital Vital Signs from 06/23/2016 6:00 PM:* Height : 5/0 ft,in * Temperature : 98.1 F * Pulse : 59 * Respirations : 16 * BP : 113/58 Hospital Vital Signs from 06/23/2016 5:45 PM:* Height : 5/0 ft,in * Temperature : 98.7 F * Pulse : 60 * Respirations : 16 * BP : 124/74 Hospital Vital Signs from 06/23/2016 5:30 PM:* Height : 5/0 ft,in * Temperature : 98.9 F * Pulse : 61 * Respirations : 16 * BP : 133/67 Hospital Vital Signs from 06/23/2016 5:15 PM:* Height : 5/0 ft,in * Temperature : 98.1 F * Pulse : 59 * Respirations : 17 * BP : 129/59 Hospital Vital Signs from 06/23/2016 5:00 PM:* Height : 5/0 ft,in * Temperature : 98.2 F * Pulse : 60 * Respirations : 16 * BP : 134/77 Hospital Vital Signs from 06/23/2016 4:45 PM:* Height : 5/0 ft,in * Temperature : 98.1 F * Pulse : 60 * Respirations : 16 * BP : 136/68 Hospital Vital Signs from 06/23/2016 4:30 PM:* Height : 5/0 ft,in * Temperature : 98.1 F * Pulse : 60 * Respirations : 16 * BP : 112/65 Hospital Vital Signs from 06/23/2016 4:15 PM:* Height : 5/0 ft,in * Temperature : 98.1 F * Pulse : 59 * Respirations : 15 * BP : 108/53 Hospital Vital Signs from 06/23/2016 4:00 PM:* Height : 5/0 ft,in * Temperature : 98.1 F * Pulse : 60 * Respirations : 16 * BP : 118/58 Hospital Vital Signs from 06/23/2016 3:45 PM:* Weight : 54.8/ kg * Height : 5/0 ft,in * Height : 5/0 ft,in * Temperature : 98.1 F * Pulse : 60 * Respirations : 16 * BP : 123/63 Hospital Vital Signs from 06/23/2016 3:30 PM:* Height : 5/0 ft,in * Temperature : 98.4 F * Pulse : 60 * Respirations : 16 * BP : 113/60 Hospital Vital Signs from 06/23/2016 3:14 PM:* Height : 5/0 ft,in * Temperature : 98.2 F * Pulse : 60 * Respirations : 16 * BP : 122/59 Hospital Vital Signs from 06/23/2016 3:01 PM:* Weight : 54.8/ kg * Height : 5/0 ft,in * Temperature : 98.2 F * Pulse : 63 * Respirations : 16 * BP : 121/64 Hospital Vital Signs from 06/23/2016 2:31 PM:* Height : 5/0 ft,in * Temperature : 98.4 F * Pulse : 59 * Respirations : 16 * BP : 127/62 Hospital Vital Signs from 06/23/2016 9:25 AM:* Pulse : 62 Hospital Vital Signs from 06/23/2016 7:53 AM:* Pulse : 62 Hospital Vital Signs from 06/23/2016 7:34 AM:* Height : 5/0 ft,in * Temperature : 98.0 F * Pulse : 62 * Respirations : 24 * BP : 137/65 Hospital Vital Signs from 06/22/2016 10:17 PM:* Height : 5/0 ft,in * Temperature : 97.7 F * Pulse : 62 * Respirations : 20 * BP : 148/66 Hospital Vital Signs from 06/22/2016 2:51 PM:* Height : 5/0 ft,in * Temperature : 97.8 F * Pulse : 61 * Respirations : 20 * BP : 141/58 Hospital Vital Signs from 06/22/2016 11:14 AM:* Pulse : 89 Hospital Vital Signs from 06/22/2016 8:15 AM:* Height : 5/0 ft,in * Temperature : 98.7 F * Pulse : 60 * Respirations : 20 * BP : 126/66 Hospital Vital Signs from 06/22/2016 7:30 AM:* Height : 5/0 ft,in * Temperature : 98.5 F * Pulse : 58 * Respirations : 18 * BP : 162/73 Hospital Vital Signs from 06/22/2016 5:23 AM:* Height : 5/0 ft,in * Temperature : 98.8 F * Pulse : 60 * Respirations : 18 * BP : 144/58 Hospital Vital Signs from 06/22/2016 4:47 AM:* Height : 5/0 ft,in * Temperature : 97.4 F * Pulse : 60 * Respirations : 18 * BP : 157/77 Hospital Vital Signs from 06/22/2016 4:00 AM:* Height : 5/0 ft,in * Temperature : 97.8 F * Pulse : 60 * Respirations : 18 * BP : 144/67 Hospital Vital Signs from 06/22/2016 3:15 AM:* Height : 5/0 ft,in * Temperature : 98.7 F * Pulse : 61 * Respirations : 17 * BP : 167/49 Hospital Vital Signs from 06/22/2016 3:00 AM:* Height : 5/0 ft,in * Temperature : 98.2 F * Pulse : 56 * Respirations : 18 * BP : 155/70 Hospital Vital Signs from 06/22/2016 1:45 AM:* Height : 5/0 ft,in * Temperature : 98 F * Pulse : 61 * Respirations : 18 * BP : 143/63 Hospital Vital Signs from 06/22/2016 12:48 AM:* Height : 5/0 ft,in * Temperature : 97.8 F * Pulse : 60 * Respirations : 18 * BP : 128/64 Hospital Vital Signs from 06/22/2016 12:03 AM:* Height : 5/0 ft,in * Temperature : 97.6 F * Pulse : 62 * Respirations : 17 * BP : 139/54 Hospital Vital Signs from 06/21/2016 11:45 PM:* Height : 5/0 ft,in * Temperature : 98.0 F * Pulse : 62 * Respirations : 18 * BP : 131/83 Hospital Vital Signs from 06/21/2016 11:34 PM:* Height : 5/0 ft,in * Temperature : 98.0 F * Pulse : 60 * Respirations : 16 * BP : 135/63 Hospital Vital Signs from 06/21/2016 11:15 PM:* Height : 5/0 ft,in * Temperature : 98.1 F * Pulse : 60 * Respirations : 18 * BP : 136/47 Hospital Vital Signs from 06/21/2016 9:51 PM:* Weight : 54.7/ kg * Height : 5/0 ft,in * Temperature : 97.8 F * Pulse : 62 * Respirations : 18 * BP : 155/65 Hospital Vital Signs from 06/21/2016 9:47 PM:* Weight : 54.7/ kg * Height : 5/0 ft,in Results Chemistry from 06/24/2016 5:30 AMSODIUM 144 MMOL/L (136-145 MMOL/L) POTASSIUM 4.3 MMOL/L (3.5-5.1 MMOL/L) CHLORIDE 103 MMOL/L (98-107 MMOL/L) TCO2 39.7 MMOL/L H (21.0-32.0 MMOL/L) *ANION GAP 1.3 MMOL/L L (8.0-16.0 MMOL/L) BUN 34 MG/DL H (7-18 MG/DL) CREATININE 1.50 MG/DL H (0.55-1.02 MG/DL) *BUN/CREATININE RATIO 22.7 H (9.1-17.0 ) GLUCOSE 101 MG/DL H (65-99 MG/DL) *GFR EST NON AFR [place] 31 ML/MIN *GFR EST AFR AMER 36 [...] H (65-99 MG/DL) *GFR EST NON AFR [place] 36 ML/MIN *GFR EST AFR AMER 41 [...] H (65-99 MG/DL) *GFR EST NON AFR [place] 30 ML/MIN *GFR EST AFR AMER 34 [...] U/L) AST (SGOT) 25 U/L (15-37 U/L) Hematology from 06/24/2016 5:30 AMWBC 15.2 X10e3/UL [...] 1+ RETICULOCYTE 3.70 % H (0.50-1.50 %) Body Fluids from 06/22/2016 10:55 AMFECAL OCCULT BLOOD 1 (Hemoccult) POSITIVE A (NEGATIVE ) Problems Encounter Diagnosis * Anemia Status:Active. * Fall Risk Status:Active. * Mobility Impairment Status:Active. Additional Problems * Acute Pain Comment:Problem resolved by [facility] Work[employer] upon Discharge, Status :Resolved. Encounters Encounter Diagnosis * Anemia Status:Active. * Fall Risk Status:Active. * Mobility Impairment Status:Active. Plan of Care Follow-up Appointments from 06/24/2016 10:17 AM:* #1 Office appointment: : Dr. Toro * Address # 1 : [facility]: [address]- [phone] or Treatment Plan from 06/23/2016 11:05 AM:* Care Management Note : SW spoke with patient and daughter regarding possible needs at discharge. Daughter explained that patient was just in the hospital in [place] and already has home health set up and at this time they don't think she will need additional services. Treatment Plan from 06/23/2016 9:38 AM:* Care Management Note : Dr Toro documents anemia possible causes are lymphoma vs occult GIB. labs: TCO2 35.4. Anion gap 3.6. Bun 33. Cr 1.35. Bun/Cr ratio 24.4. Glucose 108. Ca 8.4. Alb 2.7. WBC 16.9. FOCB pending. follow labs. SCDs for DVT prevention. Treatment Plan from 06/22/2016 1:39 PM:* Care Management Note : Admission status: Inpatient Patient presented to ER for complaints of increasing tiredness/weakness. 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 labs: Na 147. Chl 108. Bun 38. Cr 1.57. BUN/Cr 24.2. Glucose 100. Ca 8.0. Alb 2.7. BNP 922. WBC 15.8. Hgb 5.6. Hct 17.7. RBC 1.73. CT Abd/pelvis: Multiple hyperdense lesions involving the kidneys. These likely represent hemorrhagic cysts but ultrasound could be performed to exclude underlying solid lesion. Diverticulosis. Fat containing left inguinal hernia. Monitor vital signs with oximetery. FOCB pending. follow labs. Cultures pending. Transfuse PRBCs - total 4 units. meets inpatient status for symptomatic anemia. anticipate stay longer than 2 midnights. Procedures * Completed Procedure Code: 00.00 Procedure [...] to care for yourself at home from 06/24/2016 10:17 AM:* Discharge Activity : Activity as tolerated,May [...] the responsibility of the patient or patient office machines sales representative to confirm the list of medications with either the patient's personal care provider or the patient's follow-up care provider to ensure the patient has an appropriate list of medications to take at home. Discharge medications Continued medications* aspirin (Aspirin Low Dose) 325mg tablet,delayed release ( DR/EC), Ordered By: EMILI TORO MD Directions: 1 tablet oral daily * arformoterol (Brovana) 15 mcg/2 mL Solution for Nebulization, Ordered By: EMILI TORO MD Directions: 2 mL by inhalation daily * DULoxetine (Cymbalta) 60 mg capsule,delayed release(DR/EC), Ordered By: EMILI TORO MD Directions: 1 capsule oral daily * ferrous sulfate 325 mg (65 mg iron) Tablet, Ordered By: EMILI TORO MD Directions: 1 tablet oral daily with or after food * foLIC Acid 1 mg Tablet, Ordered By: EMILI TORO MD Directions: 1 tablet oral daily every morning * furosemide 40 mg Tablet, Ordered By: EMILI TORO MD Directions: 1 tablet oral daily every morning * furosemide 20 mg Tablet, Ordered By: EMILI TORO MD Directions: 1 tablet oral daily afternoon PRN as needed * mirtazapine (Remeron) 45 mg Tablet, Ordered By: EMILI TORO MD Directions: 0.5 tablet oral daily every evening * propranolol 40 mg Tablet, Ordered By: EMILI TORO MD Directions: 1 1/2 tabs oral twice a day * potassium chloride (Klor-Con 10) 20 mEq Tablet Extended Release, Ordered By: EMILI TORO MD Directions: 1 tablet oral daily with or after meal * polyethylene glycol 3350 (Miralax) 17 gram Powder in Packet, Ordered By: EMILI TORO MD Directions: 1 packet oral daily PRN constipation * ropinirole 2 mg Tablet, Ordered By: EMILI TORO MD Directions: 1 tablet oral daily at bedtime * clopidogrel (Plavix) 75 mg Tablet, Ordered By: EMILI TORO MD Directions: 1 tablet oral daily every evening * atorvastatin 20 mg Tablet, Ordered By: EMILI TORO MD Directions: 1 tablet oral daily at bedtime * digoxin 0.125mg Tablet, Ordered By: EMILI TORO MD Directions: 1 tablet oral daily * Multivitamin 1tab daily * Acetaminophen as needed * IVIG every two weeks, with Dr. Degroot * IV Rituxan every 8 weeks, wt Dr. Hurst * lisinopril 20 mg Tablet, Ordered By: EMILI TORO MD Directions: 1 tablet oral bedtime * acyclovir 400 mg Tablet, Ordered By: EMILI TORO MD Directions: 1 tablet oral twice a day * albuterol sulfate (Ventolin HFA) 90 mcg HFA Aerosol Inhaler, Ordered By: EMILI TORO MD Directions: 2 puff by inhalation four times daily PRN shortness of breath * allopurinol 300 mg Tablet, Ordered By: EMILI TORO MD Directions: 1 tablet oral daily Changed medications* LORazepam 0.5 mg Tablet, Ordered By: EMILI TORO MD Directions: up to 3 tabs per day oral three times a day PRN anxiety * alendronate (FOSAmax) 70 mg Tablet, Ordered By: EMILI TORO MD Directions: 1 tablet oral every Thursday * bifidobacterium infantis (Align) 4 mg (1 billion cell) Capsule, Ordered By: EMILI TORO MD Directions: 1 capsule oral at bedtime Stopped medications* None
--- OUTSIDE RECORDS SUMMARY | 2017-02-26 16:50 | XMS REPORT | Summary of Care ---
Author Author Vanessa Sauer APRN Unknown Address [address], [place] [id number] Phone Unavailable Care Team Providers Care Dry Box Operator Name Role Phone Ferdinand Hammonds, Cece [...] Immunization Name Dates Details Influenza Lot #: [id number] on: 02-Aug-2010 Influenza Lot #: [id number] on: 24-Aug-2012 Pneumo (Pneumovax) Lot #: [id number] on: 24-Aug-2012 Fluzone High-Dose 0.5 ML Intramuscular Suspension Prefilled Syringe Lot #: [id number] on: 25-Jul-2015 Tdap (Adacel) Lot #: [id number] on: 05-Nov-2015 Fluzone High-Dose 0.5 ML Intramuscular Suspension Prefilled Syringe Lot #: [id number] on: 02-Sep-2016 Family History Name Dates Details [...] low threshold) Range: >60 EST GFR, NON-AFR [place] 38 ml/min (Below low threshold) Range: >60 [...] >60 ml/min Range: >60 EST GFR, NON-AFR [place] 50 ml/min (Below low threshold) Range: >60 Comments: EST GFR is reported in ml/min per 1.73 m2 of body surface area. ----- BUN:CREATININE RATIO 37 GLUCOSE 98 mg/dL Range: 70-100 CALCIUM 8.5 mg/dL Range: 8.5-10.1 15:41 TROPONIN I 3451 TROPONIN I <0.04 ng/mL Range: .09 Comments: Called to LaurieVerified by Repeat Analysis<0.10 ng/ml=Negative for MI0.10-0.59 ng/ml=Indeterminate for MI0.60-1.50 ng/ml=Suggestive of [place]----- 15:43 CT AB/ PEL WITHOUT IV CONTRAST [...] Appointment; Provider: Chapito Muro On 02-Dec-2016 11:15 Interventions Provided Labs/Procedures/Imaging* AMYLASE 1250; Done: 19Nov2016 03:07PM * BASIC METABOLIC PROFILE 1210; Done: 19Nov2016 03:07PM * BNP 3103; Done: 19Nov2016 03:07PM * CT AB/ PEL WITHOUT IV CONTRAST (FOR KIDNEY STONE); Done: 19Nov2016 03:43PM * Lipase 1275; Done: 19Nov2016 03:07PM * TROPONIN I 3451; Done: 19Nov2016 03:07PM * XRay CHEST-PA & LAT; Done: 19Nov2016 03:46PM Instructions Name Dates Details Instructions not documented [...]
--- OUTSIDE RECORDS SUMMARY | 2017-02-26 16:50 | XMS REPORT ---
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 [employer] (Active) * Anemia (285.9); (Active) * [...] Start Date: 01/11/2010; End Date: (Active) * Niferex-150 Forte 50-100 MG CAPS; 1 capsule qd; Start Date: 02/26/2009 (Active ) * Estropipate 0.75 MG Oral Tablet; TAKE ONE TABLET BY MOUTH EVERY DAY DIRECTED; Start Date: 12/07/2009; End Date: (Active) * ClonazePAM 1 MG Oral Tablet; TAKE ONE TABLET BY MOUTH THREE TIMES DAILY NEEDED; Start Date: 01/25/2010 (Active) * Furosemide 40 MG Oral Tablet; TAKE 1 TABLET DAILY.; Start Date: 06/07/2009; End Date: (Active) * Multi-Day Vitamins Oral Tablet; I po qd; Start Date: 06/07/2009 (Active) * Poly-Iron 150 Forte 150-25-1 MG-MCG-MG Oral Capsule; TAKE 1 CAPSULE BY MOUTH EVERY DAILY; Start Date: 07/19/2009; End Date: (Active) * Potassium Chloride Summer ER 10 MEQ Oral Tablet Extended Release; TAKE 2 TABLETS BY MOUTH TWO TIMES A DAY; Start Date: 07/27/2009; End Date: ( Active) * ROPINIRole HCl 1 MG Oral Tablet; TAKE ONE TABLET BY MOUTH EVERY NIGHT AT BEDTIME; Start Date: 08/31/2009; End Date: (Active) * Aspirin 81 MG Oral Tablet; TAKE 1 TABLET DAILY.; Start Date: 08/31/2009 ( Active) * Oxygen; 2 LPM 24 HOURS A DAY MAY TITRATE UP FOR DYSPNEA; Start Date: 2011 (Active) * Bumetanide 2 MG Oral Tablet; TAKE 1 TABLET Every other day; Start Date: 2009 (Active) * Pantoprazole Sodium 40 MG Oral Tablet Delayed Release; TAKE ONE TABLET BY MOUTH EVERY DAY DIRECTED; Start Date: 08/30/2010; End Date: ( Active) * Propranolol HCl 40 MG Oral Tablet; Take 1 tablet every 12 hours; Start Date: 04/05/2010; End Date: (Active) * Brovana 15 MCG/2ML Inhalation Nebulization Solution; USE ONE VIAL VIA NEBULIZER TWICE A DAY; Start Date: 11/23/2012; End Date: (Active) * Budesonide 0.5 MG/2ML Inhalation Suspension; Use one vial in nebulizer twice daily; Start Date: 11/23/2012; End Date: (Active) * Levocetirizine Dihydrochloride 5 MG Oral [...] TABLETS; Start Date: 11/15/2012; End Date: (Active) Allergies and Adverse Reactions * Ceftin TABS [...] - Active Immunization * Influenza (Lot #: [id number]) - Administered on: 08/02/2010 * Influenza (Lot #: [id number]) - Administered on: 08/24/2012 * Pneumo (Pneumovax) (Lot #: [id number]) - Administered on: 08/24/2012 Family History * [...] (Active) Vital Signs Date Description Test Result 09 Mar 2013 02:46 PM recorded by: Nell Teran Weight 143 lb BP Systolic 120 mm[Hg] Height 63 in Heart Rate 86 /min FiO2 flow rate 2 % BP Diastolic 78 mm[Hg] Body Surface Area Calculated 1.68 Body Mass Index Calculated 25.34 O2 SAT 95 % Results Date Description Test Name Value Reference Interpretation Status 09 Mar 2013 02:04 PM XRay CHEST-PA & LAT X CHEST PA & LAT Active Treatment Plan * Urinalysis w/ Microscopic [...] No Advance Directives available. Encounters * Appointment 03/09/2013 * ENDO , Provider: Storm Lopez, Status: Anthony , Time: 11:00 AM 2012 * RTNPT , Provider: Saji Hector, Status: Anthony , Time: 1:15 PM 2012 * RTNPT , Provider: Reji Tariq, Status: Anthony , Time: 1:45 PM 2012
--- OUTSIDE RECORDS SUMMARY | 2017-02-26 16:50 | XMS REPORT ---
Author Author GENERATED, SYSTEM Organization Unknown Address Unknown Phone Unavailable Care Team Providers Care Parts Advisor Name Role Phone MD YEHUDA, CHINO PP [phone] Reason For Visit Reason for Visit from 09/19/2014 11:09 AM:* Pt Stated Reason for Adm : IVIG Chief Complaint CVIDS Social History Functional Status Functional Status from 09/19/2014 11:09 AM:* LOC : Alert * Oriented To : Person,Place,Time,Event Vital Signs Hospital Vital Signs from 09/19/2014 3:00 PM:* Height : 5/0 ft,in * Pulse : 75 * Respirations : 16 * BP : 141/79 Hospital Vital Signs from 09/19/2014 2:45 PM:* Height : 5/0 ft,in * Pulse : 73 * Respirations : 16 * BP : 131/69 Hospital Vital Signs from 09/19/2014 2:30 PM:* Height : 5/0 ft,in * Pulse : 76 * Respirations : 16 * BP : 127/74 Hospital Vital Signs from 09/19/2014 2:15 PM:* Height : 5/0 ft,in * Pulse : 74 * Respirations : 16 * BP : 132/64 Hospital Vital Signs from 09/19/2014 2:00 PM:* Height : 5/0 ft,in * Pulse : 74 * Respirations : 16 * BP : 131/61 Hospital Vital Signs from 09/19/2014 1:45 PM:* Height : 5/0 ft,in * Pulse : 76 * Respirations : 16 * BP : 189/51 Hospital Vital Signs from 09/19/2014 1:30 PM:* Height : 5/0 ft,in * Pulse : 74 * Respirations : 16 * BP : 134/65 Hospital Vital Signs from 09/19/2014 1:15 PM:* Height : 5/0 ft,in * Pulse : 75 * Respirations : 16 * BP : 140/47 Hospital Vital Signs from 09/19/2014 1:00 PM:* Height : 5/0 ft,in * Pulse : 75 * Respirations : 16 * BP : 165/65 Hospital Vital Signs from 09/19/2014 12:30 PM:* Height : 5/0 ft,in * Pulse : 72 * Respirations : 16 * BP : 131/65 Hospital Vital Signs from 09/19/2014 12:15 PM:* Height : 5/0 ft,in * Pulse : 71 * Respirations : 16 * BP : 140/76 Hospital Vital Signs from 09/19/2014 12:00 PM:* Height : 5/0 ft,in * Pulse : 71 * Respirations : 16 * BP : 158/80 Hospital Vital Signs from 09/19/2014 11:42 AM:* Height : 5/0 ft,in * Temperature : 98.1 F * Pulse : 71 * Respirations : 16 * BP : 173/86 Results Problems Encounter Diagnosis No relevant problems [...]
--- OUTSIDE RECORDS SUMMARY | 2017-02-26 16:51 | XMS REPORT ---
Author Author GENERATED, SYSTEM Organization Unknown Address Unknown Phone Unavailable Care Team Providers Care High Pressure Cleaner Name Role Phone MD CORTEZ, [facility] [phone] Reason For Visit Reason for Visit from 09/05/2015 11:09 AM:* Pt Stated Reason for Adm : Privigen infusion Chief Complaint IV,CVIDS,D83.8 Social History Functional Status Functional Status from 09/05/2015 11:09 AM:* LOC : Alert * Oriented To : Person,Place,Time Vital Signs Hospital Vital Signs from 09/05/2015 3:30 PM:* Height : 5/0 ft,in * Pulse : 58 * BP : 138/73 Hospital Vital Signs from 09/05/2015 3:15 PM:* Height : 5/0 ft,in * Pulse : 59 * BP : 131/75 Hospital Vital Signs from 09/05/2015 3:00 PM:* Height : 5/0 ft,in * Pulse : 59 * BP : 129/76 Hospital Vital Signs from 09/05/2015 2:45 PM:* Height : 5/0 ft,in * Pulse : 60 * BP : 145/68 Hospital Vital Signs from 09/05/2015 2:30 PM:* Height : 5/0 ft,in * Pulse : 59 * BP : 130/71 Hospital Vital Signs from 09/05/2015 2:15 PM:* Height : 5/0 ft,in * Pulse : 59 * BP : 128/71 Hospital Vital Signs from 09/05/2015 2:00 PM:* Height : 5/0 ft,in * Pulse : 59 * BP : 123/70 Hospital Vital Signs from 09/05/2015 1:45 PM:* Height : 5/0 ft,in * Pulse : 58 * BP : 120/67 Hospital Vital Signs from 09/05/2015 1:30 PM:* Height : 5/0 ft,in * Pulse : 59 * BP : 124/69 Hospital Vital Signs from 09/05/2015 1:15 PM:* Height : 5/0 ft,in * Pulse : 59 * BP : 111/67 Hospital Vital Signs from 09/05/2015 1:00 PM:* Height : 5/0 ft,in * Pulse : 57 * BP : 119/49 Hospital Vital Signs from 09/05/2015 12:45 PM:* Height : 5/0 ft,in * Pulse : 59 * BP : 123/46 Hospital Vital Signs from 09/05/2015 12:15 PM:* Height : 5/0 ft,in * Pulse : 58 * BP : 106/74 Hospital Vital Signs from 09/05/2015 11:45 AM:* Height : 5/0 ft,in * Pulse : 59 * BP : 132/72 Hospital Vital Signs from 09/05/2015 11:30 AM:* Height : 5/0 ft,in * Pulse : 57 * BP : 127/74 Hospital Vital Signs from 09/05/2015 11:14 AM:* Height : 5/0 ft,in * Pulse : 60 * BP : 130/79 Hospital Vital Signs from 09/05/2015 10:58 AM:* Height : 5/0 ft,in * Temperature : 97.4 F * Pulse : 84 * Respirations : 18 * BP : 140/80 Results Problems Encounter Diagnosis No relevant problems [...]
--- OUTSIDE RECORDS SUMMARY | 2017-02-26 16:51 | XMS REPORT | Summary of Care ---
Author Author Krunal Lennon M.D. Organization Unknown Address Unknown Phone Unavailable Care Team Providers Care Band Saw Operator Name Role Phone Cece Streeter M.D. Unavailable [...] of Aortic Valve Replacement HEMOGRAM 7305 Ordered: 18-Aug-2016 RENAL PROFILE 1240 Ordered: 18-Aug-2016 Iron Panel with TIBC 1612 Ordered: 18-Aug-2016 Immunization Name Dates Details Influenza Lot #: [id number] on: 02-Aug-2010 Influenza Lot #: [id number] on: 24-Aug-2012 Pneumo (Pneumovax) Lot #: [id number] on: 24-Aug-2012 Fluzone High-Dose 0.5 ML Intramuscular Suspension Prefilled Syringe Lot #: [id number] on: 25-Jul-2015 Tdap (Adacel) Lot #: [id number] on: 05-Nov-2015 Family History Name Dates Details [...] low threshold) Range: >60 EST GFR, NON-AFR UGANDAN 38 ml/min (Below low threshold) Range: >60 [...] Comments: ORDER IS IN OFFICE; COPY TO [facility] ( CC'D)Manual differential indicated. WBC 16.1 K/uL [...] Comments: ORDER IS IN OFFICE; COPY TO [facility] (CC'D) SEGS 78 % Range: 37-80 BANDS [...] 26-Jul-2016 08:47 VIVIAN PE and FLC Serum [id number] Comments: Testing performed at : [] [facility] [address], [place], [address], , Banking Consultant: KEILA Carranza MD IMMUNOGLOBULIN G, QN, SERUM 294 mg/dL (Below low threshold) Range: 700- 1600 IMMUNOGLOBULIN A, QN, SERUM 21 mg/dL (Below low threshold) Range: 64-422 IMMUNOGLOBULIN M, QN, SERUM <5 mg/dL (Below low threshold) Range: 26-217 Comments: Verified by repeat analysis----- PROTEIN, TOTAL, SERUM 5.2 g/dL (Below low threshold) Range: 6.0-8.5 ALBUMIN 3.0 g/dL Range: 2.9-4.4 QZWZT-7-HAIAENPY 0.4 g/dL Range: 0.0-0.4 UFUFX-8-CAAOYOJL 0.7 g/dL Range: 0.4-1.0 BETA GLOBULIN 0.8 g/dL Range: 0.7-1.3 GAMMA GLOBULIN 0.3 g/dL (Below low threshold) Range: 0.4-1.8 M-SPIKE Not Observed g/dL Range: Not Observed GLOBULIN, TOTAL 2.2 g/dL Range: 2.2-3.9 A/G RATIO 1.4 Range: 0.7-1.7 IMMUNOFIXATION RESULT, SERUM Comment Comments: An apparent normal immunofixation pattern.----- PLEASE NOTE: Comment Comments: Protein electrophoresis scan will follow via computer,mail, or measurement technician delivery.----- FREE KAPPA LT CHAINS,S 11.69 mg/L [...] /HPF Range: 0-10 18-Aug-2016 10:59 URINE CULTURE [id number] Comments: [facility] performed at: [place], [address] [facility], [place], [address], Banking Consultant: Gigi Alberto D.O., MPHQuest Collection Date/Time: [id number] Results Received Date/Time: [id number] Reported Date/Time: [id number] FASTING:[facility]Quest performed at: [facility], [address] [place], [address], Banking Consultant: Gigi Alberto D.O., MPH[facility] Collection Date/Time: [id number] Results Received Date/Time: [id number] Reported Date/Time: [id number] FASTING:NOQuest performed at: [facility], [address] [place], [address], Banking Consultant: Gigi Alberto D.O., MPH[facility] Collection Date/Time: [id number] Results Received Date/Time: [id number] Reported Date/Time: FASTING:NO CULTURE, URINE, ROUTINE SEE NOTE (Abnormal) Comments: CULTURE, URINE, ROUTINE MICRO NUMBER: [id number] TEST STATUS: FINAL SPECIMEN SOURCE : URINE [...] low threshold) Range: >60 EST GFR, NON-AFR UGANDAN 28 ml/min (Below low threshold) Range: >60 [...] of Care Name Dates Details Planned Observations HEMOGRAM 7305 On 25-Aug-2016 Intent RENAL PROFILE 1240 On 25-Aug-2016 Intent Iron Panel with TIBC 1612 On 25-Aug-2016 Intent Planned Goals not documented Planned Encounters Appointment; Provider: Krunal Lennon M.D. On 02-Sep-2016 14:15 Appointment; Provider: Chapito Muro On 25-Aug-2016 15:30 Appointment; Provider: Stefan Streeter M.D. On 25-Aug-2016 13:15 Instructions Name Dates Details Instructions not [...]
--- OUTSIDE RECORDS SUMMARY | 2017-02-26 16:51 | XMS REPORT | Summary of Care ---
Author Author Chapito Muro Organization Unknown Address [address] [place] [id number] Phone Unavailable Care Team Providers Care Hosted Services Analyst Name Role Phone Cece Streeter M.D. [...] AFTER 05-09-16 * Quantity: 90 Refills: 0 Chpaito uMro * Start 15-Aug-2014 Active Ondansetron 4 MG [...] Ordered: Comprehensive Metabolic Panel 1212 Ordered: 24-Jun-2016 Cortisol - AM [id number] Ordered: 09-Jul-2016 Immunization Name Dates Details Influenza Lot #: [id number] on: 02-Aug-2010 Influenza Lot #: [id number] on: 24-Aug-2012 Pneumo (Pneumovax) Lot #: [id number] on: 24-Aug-2012 Fluzone High-Dose 0.5 ML Intramuscular Suspension Prefilled Syringe Lot #: [id number] on: 25-Jul-2015 Tdap (Adacel) Lot #: [id number] on: 05-Nov-2015 Family History Name Dates Details [...] low threshold) Range: >60 EST GFR, NON-AFR TUVALUAN 32 ml/min (Below low threshold) Range: >60 [...] 524 pg/mL Range: 211-911 04-Jul-2016 12:21 Haptoglobin [id number] Comments: ORDER IN BOOK UNDER Testing performed at: [DA] [facility], [address] [place] [address] , [place], [address], , Rn First Assistant: KEILA Carranza MD HAPTOGLOBIN 215 mg/dL (Above high threshold) Range: 34-200 05-Jul-2016 09:28 VIVIAN PE and FLC Serum [id number] Comments: ORDER IN BOOK UNDER Test performed at: [DA] [facility], [address] [place] [address] , [place], [address], , Rn First Assistant: KEILA Carranza MD IMMUNOGLOBULIN G, QN, SERUM 548 mg/dL (Below low threshold) Range: 700- 1600 IMMUNOGLOBULIN A, QN, SERUM 25 mg/dL (Below low threshold) Range: 64-422 IMMUNOGLOBULIN M, QN, SERUM <5 mg/dL (Below low threshold) Range: 26-217 Comments: Verified by repeat analysis----- PROTEIN, TOTAL, SERUM 5.7 g/dL (Below low threshold) Range: 6.0-8.5 ALBUMIN 3.0 g/dL Range: 2.9-4.4 DQMTF-6-ALWQLZUP 0.4 g/dL Range: 0.0-0.4 MXZBH-9-KNVDIXOM 0.9 g/dL Range: 0.4-1.0 BETA GLOBULIN 1.0 g/dL Range: 0.7-1.3 GAMMA GLOBULIN 0.5 g/dL Range: 0.4-1.8 M-SPIKE Not Observed g/dL Range: Not Observed GLOBULIN, TOTAL 2.7 g/dL Range: 2.2-3.9 A/G RATIO 1.2 Range: 0.7-1.7 IMMUNOFIXATION RESULT, SERUM Comment Comments: An apparent normal immunofixation pattern.----- PLEASE NOTE: Comment Comments: Protein electrophoresis scan will follow via computer,mail, or crew foreman delivery.----- FREE KAPPA LT CHAINS,S 15.27 mg/L Range: 3.30-19.40 FREE LAMBDA LT CHAINS,S 12.11 mg/L Range: 5.71-26.30 KAPPA/LAMBDA RATIO,S 1.26 Range: 0.26-1.65 Plan of Care Name Dates Details Planned Observations Comprehensive Metabolic Panel 1212 On 28-Jun-2016 Intent Planned Goals not documented Planned Encounters [...]
[2017-02-26] MEDS: NORMAL SALINE 1,000 ML IV SCH (17:53)
--- NOTE | 2017-02-26 18:31 | NUR ---
Status Patient resting quietly in bed. Assisted to BSC with 1 assist. Patient does not voice needs well and will attempt to get up when needed. Bed alarms on. Patient on 3 L by NC which is what she wears at home.
[2017-02-26] MEDS ORDERED: HYOSCYAMINE 0.125 MG SUBLINGUAL TABLET SL PRN (19:45)
[2017-02-26] MEDS: LORAZEPAM 0.5 MG TABLET PO SCH (20:11)
[2017-02-26 20:15] LABS: INR 1.22 (0.76-1.04); PROTHROMBIN TIME 13.3 SEC (9.31-12.49)
[2017-02-26 20:22] LABS: ALBUMIN 3.4 G/DL (3.5-5.0); ALBUMIN/GLOBULIN RATIO 1.3 RATIO (1.1-2.2); ALKALINE PHOSPHATASE 66 U/L (38-126); ALT (SGPT) 40 U/L (9-52); ANION GAP 13 MEQ/L (5-15); AST (SGOT) 43 U/L (14-36); BUN/CREATININE RATIO 28 RATIO (6-26); CALCIUM 10.9 MG/DL (8.4-10.2); CHLORIDE 101 MEQ/L (98-107); CO2 - CARBON DIOXIDE 33 MEQ/L (22-30); CREATININE 1.8 MG/DL (0.7-1.2); GLOMERULAR FILTRATION RATE 27; GLUCOSE 131 MG/DL (65-110); MAGNESIUM 1.6 MG/DL (1.6-2.3); POTASSIUM 3.8 MEQ/L (3.6-5); SODIUM 147 MEQ/L (134-144)
[2017-02-26] MEDS ORDERED: ALBUTEROL INH.SOLN. 2.5mg/3ml (0.083%) Neb. AEROSOL PRN (20:30)
--- NOTE | 2017-02-26 20:32 | HPF ---
CHIEF COMPLAINT Left lower extremity swelling, weakness, difficulty breathing, itching. HISTORY OF PRESENT ILLNESS Erika Duque is an 86-year-old female who presents to the cardiology clinic today for evaluation of her lower extremity weakness and difficulty breathing. She has been having left leg pain and swelling for the past month. It started in her foot and gradually increased through time. Her primary provider did obtain ultrasound of this extremity on February 11 which showed no evidence of clot. Unfortunately, since then symptoms have persisted. Her swelling has now increased into her thigh. With the swelling it is harder for her to move the leg and is becoming progressively more uncomfortable. She is feeling more weak and unsteady. She has also had falls. She has developed pruritus - initially was on Benadryl which might have helped at night and help her sleep but she still had a lot of itching throughout the day. This was switched to hydroxyzine which seems to have been doing a better job with her itching. Appetite has been quite diminished. She is not feeling very hungry and not eating well. She is not having nausea but does note some burning sensation in her abdomen, typically worse with meals. She reports her bowels have been slightly loose recently. She does feel more short of breath and winded, worse with activities. She denies cough or sputum. She is not having chest pressure, pain or discomfort. She has been progressively more fatigued and sleepy. Indeed, she even fell asleep waiting in the kitchenwhere maker's office earlier today. Daughter notes she is more pale. In clinic she was evaluated. Dr. Javier did not feel this was cardiac etiology. The patient was then transferred to [facility] for further evaluation. PAST MEDICAL HISTORY Coronary artery disease with history of stents. Hypertension. Hyperlipidemia. CHF. History of pacemaker placement. History of bioprosthetic valve replacement. Hypothyroidism. History of non-Hodgkin's lymphoma. GERD. Depression. Constipation. Osteoporosis. History of autoimmune hemolytic anemia. Osteoarthritis. Glaucoma. Vascular dementia. History of cholecystectomy. History of splenectomy. History of hysterectomy. History of shoulder surgery in 2008. ALLERGIES Cephalosporins. Fentanyl. MEDICATIONS (from kitchenwhere maker's office) Align 4 mg. Allopurinol 300 mg daily. Aspirin 81 mg daily. Ativan 0.5 mg two tablets t.i.d. as needed. Lipitor 20 mg daily. Brovana 15 mcg inhaled b.i.d. Cymbalta 60 mg every day. Digoxin 0.125 mg daily. Folic acid 1 mg daily. Fosamax 70 mg weekly. Iron 325 mg b.i.d. MiraLAX 17 g daily. Remeron 45 mg one-half q.h.s. Zofran 4 mg b.i.d. Protonix 40 mg b.i.d. Plavix 75 mg daily. Potassium 20 mEq daily. Propranolol 60 mg b.i.d. Ranitidine 150 mg b.i.d. Ropinirole 2 mg daily. Tirosint 25 mcg daily. Tylenol 650 mg two tablets t.i.d. p.r.n. Ventolin two puffs q.6h. p.r.n. SOCIAL HISTORY Patient is a who resides in assisted living in [place], [place]. She is in the memory care unit. She is a nonsmoker. Dr. Chapito Muro is her primary provider. She sees Dr. Guerrero for cardiac care. FAMILY HISTORY Father did have coronary artery disease and stroke. REVIEW OF SYSTEMS As above. GENERAL: Notes weakness and fatigue but no definitive fevers or chills. Appetite is quite diminished. HEENT: Vision and hearing are stable. RESPIRATORY: Notes shortness of breath but is not having cough or congestion. Denies pain with breathing. CARDIOVASCULAR: Denies chest pressure, pain or discomfort. GI: Notes decreased appetite. Occasionally she will have some loose stools. : Denies urinary pain, burning or blood. Daughter reports frequent urinary tract infections. NEUROLOGIC: Notes globalized weakness but denies localizing symptoms. Remainder of 10-point review of systems is negative. PHYSICAL EXAMINATION VITAL SIGNS: Height 60 inches, weight 45.2 kg. BMI 19.5. Temperature 96.2. Pulse 61/regular. Respiratory rate 18/unlabored. Blood pressure 116/65. 99% room air saturation. GENERAL: Well-developed, well-nourished elderly female who is awake and alert. HEENT: NC/AT. PERRLA. EOMI. Mucous membranes moist. NECK: Supple. LUNGS: Slight decreased breath sounds bilaterally but essentially clear. I am not appreciating crackles or wheeze. She breathes comfortably without distress. CARDIOVASCULAR: Regular rate and rhythm. ABDOMEN: Soft, nondistended, nontender. Bowel sounds are present. I am not appreciating rebound tenderness or guarding. EXTREMITIES: No clubbing or cyanosis. The patient does have marked (+3) edema of her left lower extremity extending into the calf. Right lower extremity has trace edema at most. NEUROLOGIC: Patient is awake and alert. Cranial nerves II-XII appear grossly intact. I am not appreciating focal deficits. PSYCHIATRIC: Patient is awake. She communicates with short phrases. She is not agitated or restless. SKIN: Warm and dry. LABORATORY Pending. ASSESSMENT 1. Left lower extremity edema - progressive. Concern for lymph obstruction. 2. Fatigue - suspect multifactorial. 3. Anorexia. 4. Pruritus. 5. Coronary artery disease without anginal symptoms. 6. Hypertension. 7. CHF - compensated. 8. Hypothyroidism. 9. History of non-Hodgkin's lymphoma. 10. GERD. 11. Depression. 12. Anxiety. 13. Vascular dementia. 14. Osteoarthritis. 15. Gait instability with recent falls. 16. Generalized debility. PLAN 1. Will place patient in outpatient observation status at [facility] under the care of Dr. Rodrigues. 2. Start IV fluids secondary to the presyncope patient was having in kitchenwhere maker's office. 3. Obtain Doppler scan of left lower extremity to exclude possibility of blood clot. Most likely we are probably dealing with underlying lymph obstruction. However, in light of progression of edema, recheck Doppler is warranted. 4. Will continue home medications. 5. Will consult with Dr. Ramirez for oncological evaluation of her increased lower extremity edema as well as her anorexia. 6. Check on pending laboratory - CMP, CBC, magnesium prealbumin TSH and UA were ordered at time of presentation. However, still pending. 7. Initiate SCDs for DVT prevention. 8. Cardiac telemetry will be obtained. 9. Discussed code status with patient. Daughter reports she would want "everything done" but not wish to remain on machines. The patient will therefore be FULL CODE. 10. Patient's care will be returned to Dr. Muro at time of discharge from [facility]. [facility]
[2017-02-26 20:34] LABS: BLOOD, URINE NEGATIVE (NEGATIVE); COLOR,URINE YELLOW (YELLOW); LEUKOCYTE ESTERASE ,URINE NEGATIVE (NEGATIVE); NITRITE,URINE NEGATIVE (NEGATIVE); UROBILINOGEN,URINE 0.2 EU/DL (NORMAL)
[2017-02-26 20:41] LABS: BACTERIA,URINE TRACE (NEGATIVE); MUCUS,URINE PRESENT; RBC,URINE NONE SEEN /HPF (0-3); SQUAMOUS EPITHELIAL CELL,UR 0-5; WBC,URINE 0-1 /HPF (0-5)
[2017-02-26 20:51] LABS: THYROID STIM HORMONE-TSH 4.24 MIU/L (0.47-4.68)
[2017-02-26 20:53] LABS: PREALBUMIN 13.3 MG/DL (17.6-36.0)
[2017-02-26] MEDS ORDERED: PANTOPRAZOLE 40 MG TABLET PO SCH (21:00)
[2017-02-26 21:03] VITALS: O2SAT 98
[2017-02-26] MEDS: BUDESONIDE 0.25 MG/2 ML AEROSOL SCH (21:03)
[2017-02-26 21:14] LABS: HCT - HEMATOCRIT 18.2 % (36-46); HGB - HEMOGLOBIN 8.2 GM/DL (12-16); MEAN CORPUSCULAR HGB CONC(MCHC 45.1 GM/DL (31-37); MEAN CORPUSCULAR VOLUME 122.1 UM3 (80-100); MEAN PLATELET VOLUME 12.1 UM3 (9.4-12.4); RED BLOOD COUNT 1.49 M/MM3 (4.00-5.20); WBC - WHITE BLOOD COUNT 16.4 T/MM3 (4.5-11.0)
[2017-02-26 21:17] LABS: BAND NEUTROPHILS # 0.3 T/MM3; CORRECTED WHITE BLOOD COUNT 14.3 T/MM3 (4.5-11.0); EOSINOPHILS # (MANUAL) 0.9 T/MM3 (0-0.5); LYMPHOCYTES # (MANUAL) 1.9 T/MM3 (1-4.8); MONOCYTES # (MANUAL) 0.7 T/MM3 (0-0.8); NEUTROPHILS #(MANUAL)-ABSOLUTE 10.6 T/MM3 (1.8-7.7); NUCLEATED RED BLOOD CELLS 15
[2017-02-26 21:19] LABS: ANISOCYTOSIS 2+; POIKILOCYTOSIS 1+
[2017-02-26 21:20] LABS: HOWELL-JOLLY BODIES 2+
[2017-02-26] MEDS: ATORVASTATIN 20 MG TABLET PO SCH (21:39)
--- NOTE | 2017-02-26 22:00 | NUR ---
PRN PT WAS GIVEN PRN ATARAX FOR ITCHING. X 1 ASSIST WITH THE GAIT BELT TO THE COMMODE. WILL CONTINUE TO MONITOR.
[2017-02-26 23:23] VITALS: BP 115/52; PULSE 61; RESP 18; TEMP 98.8; O2SAT 99
[2017-02-27] VITALS (16 sets, daily range): BP systolic 94–130; BP diastolic 29–63; PULSE 58–65; RESP 16–18; TEMP 95.9–98.4; O2SAT 95–100
[2017-02-27] MEDS: LORAZEPAM 0.5 MG TABLET PO PRN (03:30)
--- NOTE | 2017-02-27 03:40 | NUR ---
PRN PT WAS GIVEN PRN ATIVAN FOR ANXIETY PER HER REQUEST. NEW IV LINE PUT ON HER LEFT ARM. PT IS ALERT WITH CONFUSION. SHE PULLED HER IV LINE OUT A MOMENT AGO. ASSISTED BACK TO BED BY THIS NURSE. WILL CONTINUE TO MONITOR.
[2017-02-27 05:27] LABS: ANION GAP 11 MEQ/L (5-15); BUN/CREATININE RATIO 29 RATIO (6-26); CALCIUM 10.9 MG/DL (8.4-10.2); CHLORIDE 103 MEQ/L (98-107); CO2 - CARBON DIOXIDE 31 MEQ/L (22-30); CREATININE 1.7 MG/DL (0.7-1.2); GLOMERULAR FILTRATION RATE 29; GLUCOSE 101 MG/DL (65-110); POTASSIUM 3.7 MEQ/L (3.6-5); SODIUM 145 MEQ/L (134-144)
[2017-02-27] MEDS: PANTOPRAZOLE 40 MG TABLET PO SCH ×2 (05:59→17:01)
[2017-02-27] MEDS: NORMAL SALINE 1,000 ML IV SCH (06:00)
[2017-02-27] MEDS: LEVOTHYROXINE 25 MCG TABLET PO SCH (06:00)
[2017-02-27 06:01] LABS: HCT - HEMATOCRIT 18.9 % (36-46); HGB - HEMOGLOBIN 7.5 GM/DL (12-16); MEAN CORPUSCULAR HGB 48.7 UUG (26-34); MEAN CORPUSCULAR HGB CONC(MCHC 39.7 GM/DL (31-37); MEAN CORPUSCULAR VOLUME 122.7 UM3 (80-100); MEAN PLATELET VOLUME 11.8 UM3 (9.4-12.4); RED BLOOD COUNT 1.54 M/MM3 (4.00-5.20); WBC - WHITE BLOOD COUNT 16.6 T/MM3 (4.5-11.0)
[2017-02-27 06:15] LABS: ANISOCYTOSIS 1+; CORRECTED WHITE BLOOD COUNT 13.9 T/MM3 (4.5-11.0); LYMPHOCYTES # (MANUAL) 2.2 T/MM3 (1-4.8); MONOCYTES # (MANUAL) 2.2 T/MM3 (0-0.8); NEUTROPHILS #(MANUAL)-ABSOLUTE 8.5 T/MM3 (1.8-7.7); NUCLEATED RED BLOOD CELLS 19; POIKILOCYTOSIS 1+; TOTAL CELLS COUNTED 100 %
--- NOTE | 2017-02-27 06:36 | NUR ---
SUMMARY PT IN BED SLEEPING. PT IS ALERT WITH CONFUSION. DENIED PAIN THIS MORNING. WAS GIVEN PRN ATIVAN FOR INCREASED ANXIETY. WAS SITTING ON THE RECLINER FOR LIKE 2-3HR. CALL LIGHT WITHIN REACH. CHAIR ALARM ON. ASSISTED BACK TO BED AROUND 0400 PER PT REQUEST. ON 3L/NC O2. CONTINUES ON IV FLUIDS WHICH SHE TOLERATES WELL. ASSIST X1 WITH GAIT BELT TO THE COMMODE. BED ALARM ON. ASSIST X1 WITH REPOSITIONING. PT HAD ITCHING AT THE BEGINNING OF THE SHIFT. ATARAX WAS GIVEN AND ITCHING WAS RESOLVED.
[2017-02-27] MEDS ORDERED: MORP100S3 PO/SL (08:16)
--- NOTE | 2017-02-27 08:29 | DI ---
Indication: ITS.REASON: Edema, pain, PROCEDURE: US VENOUS DUPLEX, LOWER EXT LT: Encounter: Initial Comparison: June 06, 2014 Technique: Color Doppler duplex and grayscale sonographic imaging of the left lower extremity was performed. Findings: Very slow flow noted in the venous system. There is no evidence for acute deep venous thrombosis in the left thigh. Specifically, serial graded compression was performed from the inguinal ligament to the popliteal bifurcation, on the left thigh, demonstrating appropriate compressibility of the deep venous system. In addition, color and pulsed Doppler demonstrate appropriate spontaneous flow, variation with respiration, and augmentation with calf compression. At the ankle, normal flow is identified in the posterior tibial veins; these vessels are also normal in caliber. Impression: No evidence of acute DVT in the left lower limb. Slow venous flow. .
[2017-02-27] MEDS: FAMOTIDINE 20 MG TABLET PO SCH (08:43)
[2017-02-27] MEDS: DULOXETINE 60 MG CAPSULE PO SCH (08:44)
[2017-02-27] MEDS: LORAZEPAM 0.5 MG TABLET PO SCH ×2 (08:44→20:27)
[2017-02-27] MEDS: ACETAMINOPHEN 325 MG TABLET PO SCH (08:44)
[2017-02-27] MEDS: FOLIC ACID 1 MG TABLET PO SCH (08:44)
[2017-02-27] MEDS: CLOPIDOGREL 75 MG TABLET PO SCH (08:46)
[2017-02-27] MEDS: FUROSEMIDE 40 MG TABLET PO SCH (08:46)
[2017-02-27] MEDS: PROPRANOLOL 20 MG TABLET PO SCH ×2 (08:46→20:28)
[2017-02-27] MEDS: ASPIRIN *EC* 81mg TABLET PO SCH (08:46)
--- NOTE | 2017-02-27 08:46 | DI ---
Indication: ITS.REASON: SOA PROCEDURE: CHEST 1 VIEW: Encounter: Initial Comparison: CT chest dated August 11, 2016 Findings: Moderate pulmonary fibrosis is again noted. No obvious acute pneumonia. No pleural effusion or pneumothorax. Moderately enlarged cardiac silhouette with pacemaker in place and intracardiac stent. Pulmonary vascularity appears grossly normal. Chronic rotator cuff tears with degenerative change in the spine. Impression: Chronic fibrosis. No obvious acute pneumonia or congestive failure. .
[2017-02-27] MEDS: BUDESONIDE 0.25 MG/2 ML AEROSOL SCH ×2 (08:56→20:41)
[2017-02-27] MEDS ORDERED: ALLOPURINOL 300 MG TABLET PO SCH (09:00)
[2017-02-27] MEDS ORDERED: METOPROLOL XL 25 MG TABLET PO SCH (09:00)
[2017-02-27 11:29] LABS: ABSOLUTE RETICS # 0.2688 T/MM3 (0.0300-0.0900); RETICULOCYTE % 16.5 % (0.6-1.7); RETICULOCYTE HGB 38.1 PG (30.8-36.6)
[2017-02-27] MEDS ORDERED: PROP60TA17 PO (11:36)
[2017-02-27] MEDS ORDERED: LORA0.5T2 PO (11:41)
[2017-02-27] MEDS: 1/2 NS 1,000 ML IV SCH (11:46)
--- NOTE | 2017-02-27 12:03 | NUR ---
CM CM IN TO VISIT WITH PT. CM EXPLAINED ROLE AND PROVIDED CONTACT INFORMATION. CALL PLACED TO DAUGHTER ELISABET [phone]. SHE REPORTS MOM LIVES AT THE [facility] IN [place] AND DOES HAVE HOME O2. CALL PLACED TO THE CHARGE NURSE AT [facility], [place] [phone] [place] [phone]. [place] REPORTS DAUGHTER IS TO TRANSPORT PT HOME TO THE [facility]. PT AND FAMILY IS AWARE TO CONTACT CM SHOULD NEEDS ARISE.
--- NOTE | 2017-02-27 12:09 | NUR ---
SPOKE WITH DAUGHTER NO READ DPOA ABOUT IV RITUXIMAB PT HAS RECEIVED THIS MEDICATION BEFORE. NO HAS BEEN EDUCATED ON THE TREATMENT BY DLOLY PHELAN APRN AND HAS NOT FURTHER QUESTIONS. RECEIVED VERBAL CONSENT TO GIVE IV MEDICATION TO PT, PT HAS DEMENTIA AND IS UNABLE TO SIGN CONSENT. LILY WHITAKER ALSO VERIFIED OK TO GIVE IV MEDICATION. INFORMED PHARMACY [facility]. [facility] WILL PREPARE THE MEDS.
--- NOTE | 2017-02-27 12:27 | CONSPD ---
TEZ FRANCO [employer] 02/27/17 1227: Consultation Info Date DATE: 02/27/17 TIME: 12:24 Date of Consultation: February 27, 2017 Attending Physician: Flaquito Rodrigues MD Reason for Consultation: Non-Hodgkin's lymphoma HPI - Adult Date DATE: 02/27/17 TIME: 12:24 General History of Present Illness 86-year-old female, well-known to Dr. Ramirez with history of non-Hodgkin's lymphoma, prior treatment with Rituxan, currently on observation, was admitted to [facility] yesterday with acute weakness, significant swelling left leg, and dyspnea. She is alone at time of intake. Reports intermittent night sweats. Denies fever or chills. Decreased appetite, intermittent nausea, no emesis. Reports intermittent chest tightness, shortness of air with exertion , recent increased symptoms. Fatigue. Denies pain currently. No diarrhea, constipation, no dysuria, or urine frequency. 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 --03/2014: She was admitted with Mycoplasma Pneumonia. She had flow cytometry consistent with persistent lymphoma. She was also found to have a low level of an IgM monoclonal protein 0.2 g. 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 She was found to be a cold antibody that could be associated with either her lymphoma or mycoplasma. She was begun on steroids and her hemoglobin gradually improved it was 7.1. --04/27/14: Acute worsening of hemolytic anemia with CT showing mediastinal adenopathy. --04/28/14: Rituxan weekly started. 8 cycles completed 06/22/14. --06/08/14: Drop in hemoglobin. --08/31/14: Maintenance Rituxan every 2 months started. --Monthly IVIG at [facility] through Infectious disease. --04/2014: M-spike of 0.2. Resolved with Rituxan. --07/15/16: Blood transfusion of [address] Lennon for Hgb of 7.3. --06/2016: Iron infusions with Dr. Lennon. 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 Some of them were actively bleeding. These were treated with multiple applications of bipolar electrocautery with cessation of bleeding. Past Medical History Past Medical History Patient's Medical History: (1) CAD (coronary artery disease) (2) Anemia Onset Date: 05/03/2014 (3) Mixed hyperlipidemia (4) Essential hypertension (5) Status post placement of cardiac pacemaker (6) H/O mitral valve repair (7) H/O aortic valve replacement with porcine valve (8) Presence of prosthetic heart valve GERD, depression, osteoporosis, osteoarthritis, glaucoma Surgical History Patient's Surgical History: Cholecystectomy, splenectomy, hysterectomy, shoulder surgery in 2008 Current Medications Home Meds Reported Medications Lorazepam (Lorazepam) 0.5 Mg Tablet, 0.5 MG PO DAILY Y for ANXIETY 02/27/17 Propranolol HCl (Propranolol HCl) 60 Mg Tablet, 60 MG PO BID 02/27/17 Morphine Sulfate (Morphine Sulfate Oral Solution) 100 Mg/5 Ml Solution, 5-20 MG PO/SL Q2H Y for PAIN/AIR HUNGER 5-20 MG = 0.25-1 ML 02/27/17 Hyoscyamine Sulfate (Levsin-Sl) 0.125 Mg Tab.subl, 0.125 MG SL Q4H Y for SECRETIONS 02/26/17 Famotidine (Famotidine) 20 Mg Tablet, 20 MG PO DAILY 02/26/17 Hydroxyzine HCl (Hydroxyzine HCl) 25 Mg Tablet, 25 MG PO QID Y for ALLERY SYMPTOMS 02/26/17 Ondansetron (Ondansetron Odt) 8 Mg Tab.rapdis, 8 MG PO Q8H Y for NAUSEA 02/26/17 Acetaminophen (Tylenol) 325 Mg Tablet, 1-2 TAB PO Q4HR Y for PAIN 02/26/17 Lorazepam (Lorazepam) 0.5 Mg Tablet, 0.5-1 MG PO Q4H Y for ANXIETY/RESTLESSNESS 02/26/17 Menthol (Biofreeze) 118 Ml Gel..ml., 1 APPLIC TP PRN Y for MUSCLE PAIN 02/26/17 Budesonide (Budesonide) 0.25 Mg/2 Ml Ampul.neb, 0.25 MG AEROSOL BID 02/26/17 Arformoterol Tartrate (Brovana) 15 Mcg/2 Ml Vial.neb, 15 MCG AEROSOL BID, VIAL 02/26/17 Levothyroxine Sodium (Levothyroxine Sodium) 25 Mcg Tablet, 25 MCG PO ACB, TAB Once daily before breakfast 02/26/17 Aspirin (Aspir 81) 81 Mg Tablet.dr, 81 MG PO DAILY 02/26/17 Metoprolol Succinate (Metoprolol Succinate) 25 Mg Tab.er.24h, 25 MG PO DAILY, TAB 02/26/17 Atorvastatin Calcium (Atorvastatin Calcium) 20 Mg Tablet, 20 MG PO HS 05/26/16 Clopidogrel Bisulfate (Plavix) 75 Mg Tablet, 75 MG PO DAILY, TAB 05/26/16 Duloxetine HCl (Duloxetine HCl) 60 Mg Capsule.dr, 60 MG PO DAILY 02/04/16 Acetaminophen (Tylenol) 325 Mg Tablet, 650 MG PO DAILY 06/06/14 Folic Acid (Folic Acid) 1 Mg Tablet, 1 MG PO DAILY 06/06/14 Allopurinol (Allopurinol) 300 Mg Tablet, 300 MG PO DAILY, TAB 06/06/14 Lorazepam (Ativan) 0.5 Mg Tablet, 0.5 MG PO BID 06/06/14 Pantoprazole Sodium (Protonix) 40 Mg Tablet.dr, 40 MG PO BID 06/06/14 Multivitamins (Multivitamin) 1 Tab Tablet, 1 TAB PO DAILY, TAB 04/10/14 Furosemide (Lasix) 40 Mg Tablet, 40 MG PO DAILY 04/10/14 Allergies: Coded Allergies: cefuroxime (Verified Allergy, Mild, GI upset, 02/26/17) Cephalosporins (Verified Allergy, Unknown, rash, 02/26/17) fentanyl (Verified Allergy, Unknown, rash, 02/26/17) Family History Family History: No known family history of cancer Social History Smoking Status: Never smoker Alcohol Intake: none Marital Status: Housing: assisted living facility Advance Directives: Yes DPOA for Healthcare Only ([facility]) Review of Systems Constitutional: REPORTS: appetite decrease, night sweats, weakness, weight loss (20 pounds in past 3-4 months), DENIES: chills, fever Eyes Vision: DENIES: double vision, vision changes ENMT Mouth/Throat: DENIES: sore throat, sores Cardiovascular chest pain (intermittent tightness), dyspnea on exertion, murmur Rhythm/Rate: other (history of pacemaker placement) Pulmonary Respiratory: dyspnea, DENIES: cough GI Upper Abdomen: nausea, DENIES: pain, vomiting General: DENIES: dysuria, frequency, hematuria Musculoskeletal General: joint swelling (swelling entire left lower extremity), weakness Integumentary Skin: DENIES: rash, sores Neurological General: weakness, DENIES: fainting Psychiatric Psychiatric: DENIES: depression, nervousness Hematologic/Lymphatic anemia Physical Exam General General Nourishment: well nourished, well developed General Body Habitus: well groomed Vital Signs Vital Signs Date Time Temp Pulse Resp B/P Pulse Ox O2 Delivery O2 Flow Rate FiO2 02/27/17 08:59 59 02/27/17 08:57 16 95 02/27/17 07:29 96.4 130/62 Nasal Cannula 2.00 Height (Feet): 5 Height (Inches): 0.00 Eyes Brief: FOUND: EOMI, NOT FOUND: scleral icterus ENMT Brief: FOUND: mucosa moist, NOT FOUND: lesions Neck Brief: NOT FOUND: adenopathy Respiratory Brief: FOUND: clear all fletcher, NOT FOUND: wheezes Cardiovascular (brief) Cardiac Brief: FOUND: murmur, pedal edema (edema entire left lower extremity, trace pedal edema right), regular rate, regular rhythm Abdomen (brief) Abdominal Brief: FOUND: BS normo active x4, soft, NOT FOUND: hepatosplenomegaly , tender Lymphatic (brief) Lymphatic Brief: NOT FOUND: adenopathy Musculoskeletal (brief) Musculoskeletal Brief: FOUND: extremities move equally, tenderness (tenderness with examination of left extremity), NOT FOUND: deformity Integumentary (brief) Integumentary Brief: FOUND: dry, other (a.l.), warm, NOT FOUND: rash Neurologic (brief) Neurological Brief: FOUND: cranial 2-12 intact, NOT FOUND: motor (no acute motor deficit) Neurologic RN Documented GCS Eye Opening: Verbal: Motor: Total: Psychiatric (brief) FOUND: alert, attentive, normal affect, oriented Laboratory Laboratory Tests Test 02/26/17 20:00 02/26/17 20:22 02/27/17 04:53 02/27/17 11:02 White Blood Count 16.4T/MM3 16.6T/MM3 Corrected White Blood Count 14.3T/MM3 13.9T/MM3 Red Blood Count 1.49M/MM3 1.54M/MM3 Hemoglobin 8.2GM/DL 7.5GM/DL Hematocrit 18.2% 18.9% Mean Corpuscular Volume 122.1UM3 122.7UM3 Mean Corpuscular Hemoglobin 55.0UUG 48.7UUG Mean Corpuscular Hemoglobin Concent 45.1GM/DL 39.7GM/DL RDW Standard Deviation 77.6FL 77.2FL Platelet Count 222T/MM3 206T/MM3 Mean Platelet Volume 12.1UM3 11.8UM3 Immature Granulocyte % (Auto) % % Neutrophils (%) (Auto) % % Lymphocytes (%) (Auto) % % Monocytes (%) (Auto) % % Eosinophils (%) (Auto) % % Basophils (%) (Auto) % % Absolute Immature Granulocyte (auto T/MM3 T/MM3 Absolute Neutrophils (auto) T/MM3 T/MM3 Absolute Lymphocytes (auto) T/MM3 T/MM3 Absolute Monocytes (auto) T/MM3 T/MM3 Absolute Eosinophils (auto) T/MM3 T/MM3 Absolute Basophils (auto) T/MM3 T/MM3 Neutrophils % (Manual) 74.0% 61.0% Band Neutrophils % 2.0% Lymphocytes % (Manual) 13.0% 16.0% Monocytes % (Manual) 5.0% 16.0% Eosinophils % (Manual) 6.0% 7.0% Basophils % (Manual) 0.0% Absolute Neutrophils (Manual) 10.6T/MM3 8.5T/MM3 Band Neutrophils # 0.3T/MM3 Lymphocytes # (Manual) 1.9T/MM3 2.2T/MM3 Monocytes # (Manual) 0.7T/MM3 2.2T/MM3 Eosinophils # (Manual) 0.9T/MM3 1.0T/MM3 Basophils # (Manual) 0.0T/MM3 Nucleated Red Blood Cells 15 19 Poikilocytosis 1+ 1+ Anisocytosis 2+ 1+ Macrocytosis 2+ Clarke[place] Bodies 2+ Red Cell Morphology Comment Abnormal Abnormal Prothromb Time International Ratio 1.22 Turbidity < 20 < 20 Sodium Level 147MEQ/L 145MEQ/L Potassium Level 3.8MEQ/L 3.7MEQ/L Chloride Level 101MEQ/L 103MEQ/L Carbon Dioxide Level 33MEQ/L 31MEQ/L Anion Gap 13MEQ/L 11MEQ/L Blood Urea Nitrogen 50.0MG/DL 49.0MG/DL Creatinine 1.8MG/DL 1.7MG/DL Glomerular Filtration Rate Calc 27 29 BUN/Creatinine Ratio 28RATIO 29RATIO Glucose Level 131MG/DL 101MG/DL Calculated Osmolality 297MOSM/KG 292MOSM/KG Calcium Level 10.9MG/DL 10.9MG/DL Magnesium Level 1.6MG/DL Total Bilirubin 1.70MG/DL Icterus Index < 2 < 2 Aspartate Amino Transf (AST/SGOT) 43U/L Alanine Aminotransferase (ALT/SGPT) 40U/L Alkaline Phosphatase 66U/L Total Protein 6.0G/DL Albumin 3.4G/DL Globulin 2.6G/DL Albumin/Globulin Ratio 1.3RATIO Prealbumin 13.3MG/DL Thyroid Stimulating Hormone (TSH) 4.24MIU/L Chemistry Specimen Hemolysis < 15 < 15 Digoxin Level < 0.4NG/ML Urine Collection Type Urine Color Yellow Urine Turbidity Clear Urine pH 5.5 Urine Specific [place] 1.010 Urine Protein 1+ Urine Glucose (UA) Negative Urine Ketones Negative Urine Blood Negative Urine Nitrite Negative Urine Bilirubin Negative Urine Urobilinogen 0.2EU/DL Urine Leukocyte Esterase Negative Urine RBC None seen/HPF Urine WBC 0-1/HPF Urine Squamous Epithelial Cells 0-5 Urine Bacteria Trace Urine Mucus Present Urine Culture Indicated Cult not indicated Lactate Dehydrogenase 1417U/L Specimen Comment (Misc) Lab to recollect Tests Not Done Retic Reason Tests Not Done Clotted specimen Test 02/27/17 11:24 Absolute Reticulocyte Count 0.2688T/MM3 Percent Reticulocyte Count 16.5% Immature Reticulocyte Fraction 13.4% Reticulocyte Hgb Content (CHr) 38.1PG Radiology Date of exam: 02/26/17 Ultrasound venous duplex, left lower extremity Impression: No evidence of acute DVT in the left lower limb. Slow venous flow Date of exam: 02/26/17 Chest one view Impression: Chronic fibrosis. No obvious acute pneumonia or congestive failure Impression/Recommendation Impression 1. Relapsed non-Hodgkin's lymphoma with autoimmune hemolytic anemia. CT abd/ pelvis done at [facility] 02/23/17 shows retroperitoneal adenopathy, lobulated soft tissue densities in the left common iliac, left external iliac and left obturator regions new since 11/19/16 and probaby due to confluent adenopathy. Left pelvic density measures up to 7.9 x 5.4 cm-new diffuse edema in left thigh consistent w/ lymphatic obstruction. Recommendation Dr. Min reviewed CT findings with patient, done at [facility]. Indicates relapsed non-Hodgkin's lymphoma and plan retreatment with Rituxan. Patient has no questions. Will follow counts, liver and renal function closely, and continue supportive care. Chronic renal sufficiency; will decrease allopurinol from 300 mg daily to 100 mg by mouth daily. Check stool for blood. TASH MIN MD 02/27/17 414: Past Medical History Current Medications Home Meds Reported Medications Lorazepam (Lorazepam) 0.5 Mg Tablet, 0.5 MG PO DAILY Y for ANXIETY 02/27/17 Propranolol HCl (Propranolol HCl) 60 Mg Tablet, 60 MG PO BID 02/27/17 Morphine Sulfate (Morphine Sulfate Oral Solution) 100 Mg/5 Ml Solution, 5-20 MG PO/SL Q2H Y for PAIN/AIR HUNGER 5-20 MG = 0.25-1 ML 02/27/17 Hyoscyamine Sulfate (Levsin-Sl) 0.125 Mg Tab.subl, 0.125 MG SL Q4H Y for SECRETIONS 02/26/17 Famotidine (Famotidine) 20 Mg Tablet, 20 MG PO DAILY 02/26/17 Hydroxyzine HCl (Hydroxyzine HCl) 25 Mg Tablet, 25 MG PO QID Y for ALLERY SYMPTOMS 02/26/17 Ondansetron (Ondansetron Odt) 8 Mg Tab.rapdis, 8 MG PO Q8H Y for NAUSEA 02/26/17 Acetaminophen (Tylenol) 325 Mg Tablet, 1-2 TAB PO Q4HR Y for PAIN 02/26/17 Lorazepam (Lorazepam) 0.5 Mg Tablet, 0.5-1 MG PO Q4H Y for ANXIETY/RESTLESSNESS 02/26/17 Menthol (Biofreeze) 118 Ml Gel..ml., 1 APPLIC TP PRN Y for MUSCLE PAIN 02/26/17 Budesonide (Budesonide) 0.25 Mg/2 Ml Ampul.neb, 0.25 MG AEROSOL BID 02/26/17 Arformoterol Tartrate (Brovana) 15 Mcg/2 Ml Vial.neb, 15 MCG AEROSOL BID, VIAL 02/26/17 Levothyroxine Sodium (Levothyroxine Sodium) 25 Mcg Tablet, 25 MCG PO ACB, TAB Once daily before breakfast 02/26/17 Aspirin (Aspir 81) 81 Mg Tablet.dr, 81 MG PO DAILY 02/26/17 Metoprolol Succinate (Metoprolol Succinate) 25 Mg Tab.er.24h, 25 MG PO DAILY, TAB 02/26/17 Atorvastatin Calcium (Atorvastatin Calcium) 20 Mg Tablet, 20 MG PO HS 05/26/16 Clopidogrel Bisulfate (Plavix) 75 Mg Tablet, 75 MG PO DAILY, TAB 05/26/16 Duloxetine HCl (Duloxetine HCl) 60 Mg Capsule.dr, 60 MG PO DAILY 02/04/16 Acetaminophen (Tylenol) 325 Mg Tablet, 650 MG PO DAILY 06/06/14 Folic Acid (Folic Acid) 1 Mg Tablet, 1 MG PO DAILY 06/06/14 Allopurinol (Allopurinol) 300 Mg Tablet, 300 MG PO DAILY, TAB 06/06/14 Lorazepam (Ativan) 0.5 Mg Tablet, 0.5 MG PO BID 06/06/14 Pantoprazole Sodium (Protonix) 40 Mg Tablet.dr, 40 MG PO BID 06/06/14 Multivitamins (Multivitamin) 1 Tab Tablet, 1 TAB PO DAILY, TAB 04/10/14 Furosemide (Lasix) 40 Mg Tablet, 40 MG PO DAILY 04/10/14 Allergies: Coded Allergies: cefuroxime (Verified Allergy, Mild, GI upset, 02/26/17) Cephalosporins (Verified Allergy, Unknown, rash, 02/26/17) fentanyl (Verified Allergy, Unknown, rash, 02/26/17) Impression/Recommendation Recommendation I I reviewed the patient's chart history and physical and the lab. I have have seen and examined the patient. I discussed the case with Zofia Franco APRN. The patient has relapsed non-Hodgkin lymphoma associated with autoimmune hemolytic anemia. I developed the patient plan of care. Rituximab infusion is ordered weekly 4. First dose today. We explained to the patient the treatment with rituximab, she agrees. TEZ FRANCO APRN February 27, 2017 12:27 TASH MIN MD February 27, 2017 18:26
--- NOTE | 2017-02-27 14:25 | PNPDOC ---
PAULINE SNOW STATISTICAL CLERK 02/27/17 1405: Subjective Date DATE: 02/27/17 TIME: 14:02 Subjective Erika is seen in her room on Medical. She is laying flat in bed, in no distress. She denies chest pain or pressure, denies dyspnea, states she wears O2 regularly. Objective Vital Signs Vital signs Vital Signs 02/27/17 02/27/17 02/27/17 02/27/17 07:29 08:57 08:58 08:59 Temp 96.4 Pulse 60 60 59 Resp 16 16 B/P 130/62 Pulse Ox 96 95 O2 Delivery Nasal Cannula O2 Flow Rate 2.00 Telemetry Rhythm: Sinus Rhythm Height (Feet): 5 Height (Inches): 0.00 Weight (Kilograms): 44.600 General Alert, Orientated x 3, Cooperative ENMT (Brief) mucosa moist Neck (Brief) NOT FOUND: JVD, carotid bruits Respiratory (Brief) clear all fletcher, equal bilaterally (diminished anteriorly), NOT FOUND: rales, wheezes Cardiovascular (Brief) pedal edema (left leg), regular rate, regular rhythm, NOT FOUND: click, gallop, murmur, rub Abdomen (Brief) BS normo active x4, soft Integumentary (Brief) dry, pink, warm Psychiatric (Brief) alert, attentive, normal affect, oriented Laboratory Laboratory Laboratory Tests Test 02/26/17 20:00 02/26/17 20:22 02/27/17 04:53 02/27/17 11:02 White Blood Count 16.4T/MM3 16.6T/MM3 Corrected White Blood Count 14.3T/MM3 13.9T/MM3 Red Blood Count 1.49M/MM3 1.54M/MM3 Hemoglobin 8.2GM/DL 7.5GM/DL Hematocrit 18.2% 18.9% Mean Corpuscular Volume 122.1UM3 122.7UM3 Mean Corpuscular Hemoglobin 55.0UUG 48.7UUG Mean Corpuscular Hemoglobin Concent 45.1GM/DL 39.7GM/DL RDW Standard Deviation 77.6FL 77.2FL Platelet Count 222T/MM3 206T/MM3 Mean Platelet Volume 12.1UM3 11.8UM3 Immature Granulocyte % (Auto) % % Neutrophils (%) (Auto) % % Lymphocytes (%) (Auto) % % Monocytes (%) (Auto) % % Eosinophils (%) (Auto) % % Basophils (%) (Auto) % % Absolute Immature Granulocyte (auto T/MM3 T/MM3 Absolute Neutrophils (auto) T/MM3 T/MM3 Absolute Lymphocytes (auto) T/MM3 T/MM3 Absolute Monocytes (auto) T/MM3 T/MM3 Absolute Eosinophils (auto) T/MM3 T/MM3 Absolute Basophils (auto) T/MM3 T/MM3 Neutrophils % (Manual) 74.0% 61.0% Band Neutrophils % 2.0% Lymphocytes % (Manual) 13.0% 16.0% Monocytes % (Manual) 5.0% 16.0% Eosinophils % (Manual) 6.0% 7.0% Basophils % (Manual) 0.0% Absolute Neutrophils (Manual) 10.6T/MM3 8.5T/MM3 Band Neutrophils # 0.3T/MM3 Lymphocytes # (Manual) 1.9T/MM3 2.2T/MM3 Monocytes # (Manual) 0.7T/MM3 2.2T/MM3 Eosinophils # (Manual) 0.9T/MM3 1.0T/MM3 Basophils # (Manual) 0.0T/MM3 Nucleated Red Blood Cells 15 19 Poikilocytosis 1+ 1+ Anisocytosis 2+ 1+ Macrocytosis 2+ [place] Bodies 2+ Red Cell Morphology Comment Abnormal Abnormal Prothromb Time International Ratio 1.22 Turbidity < 20 < 20 Sodium Level 147MEQ/L 145MEQ/L Potassium Level 3.8MEQ/L 3.7MEQ/L Chloride Level 101MEQ/L 103MEQ/L Carbon Dioxide Level 33MEQ/L 31MEQ/L Anion Gap 13MEQ/L 11MEQ/L Blood Urea Nitrogen 50.0MG/DL 49.0MG/DL Creatinine 1.8MG/DL 1.7MG/DL Glomerular Filtration Rate Calc 27 29 BUN/Creatinine Ratio 28RATIO 29RATIO Glucose Level 131MG/DL 101MG/DL Calculated Osmolality 297MOSM/KG 292MOSM/KG Calcium Level 10.9MG/DL 10.9MG/DL Magnesium Level 1.6MG/DL Total Bilirubin 1.70MG/DL Icterus Index < 2 < 2 Aspartate Amino Transf (AST/SGOT) 43U/L Alanine Aminotransferase (ALT/SGPT) 40U/L Alkaline Phosphatase 66U/L Total Protein 6.0G/DL Albumin 3.4G/DL Globulin 2.6G/DL Albumin/Globulin Ratio 1.3RATIO Prealbumin 13.3MG/DL Thyroid Stimulating Hormone (TSH) 4.24MIU/L Chemistry Specimen Hemolysis < 15 < 15 Digoxin Level < 0.4NG/ML Urine Collection Type Urine Color Yellow Urine Turbidity Clear Urine pH 5.5 Urine Specific [place] 1.010 Urine Protein 1+ Urine Glucose (UA) Negative Urine Ketones Negative Urine Blood Negative Urine Nitrite Negative Urine Bilirubin Negative Urine Urobilinogen 0.2EU/DL Urine Leukocyte Esterase Negative Urine RBC None seen/HPF Urine WBC 0-1/HPF Urine Squamous Epithelial Cells 0-5 Urine Bacteria Trace Urine Mucus Present Urine Culture Indicated Cult not indicated Lactate Dehydrogenase 1417U/L Specimen Comment (Misc) Lab to recollect Tests Not Done Retic Reason Tests Not Done Clotted specimen Test 02/27/17 11:24 Absolute Reticulocyte Count 0.2688T/MM3 Percent Reticulocyte Count 16.5% Immature Reticulocyte Fraction 13.4% Reticulocyte Hgb Content (CHr) 38.1PG Laboratory Tests 02/26/17 20:00 02/27/17 04:53 Laboratory Tests 02/26/17 20:00 02/27/17 04:53 Medications Current Medications Sodium Chloride (Normal Saline IV) 1,000 ml @ 100 mls/hr Q10H IV Last administered on 02/27/17 06:00; Start 02/26/17 at 17:15; Stop 02/27/17 at 11:36; Status DC Allopurinol (ZYLOPRIM 300 mg) 300 mg DAILY PO Last administered on 02/27/17 08: 43; Start 02/27/17 at 09:00; Stop 02/27/17 at 13:21; Status DC Aspirin (Ecotrin) 81 mg DAILY PO Last administered on 02/27/17 08:46; Start 02/27/17 at 09:00 Atorvastatin Calcium (LIPITOR 20 mg) 20 mg HS PO Last administered on 02/26/17 21:39; Start 02/26/17 at 22:00 Budesonide (PULMICORT 0.25mg/2ml) 0.25 mg BID AEROSOL Last administered on 08:56; Start 02/26/17 at 21:00 Clopidogrel Bisulfate (Plavix) 75 mg DAILY PO Last administered on 02/27/17 08: 46; Start 02/27/17 at 09:00 Duloxetine HCl (Cymbalta) 60 mg DAILY PO Last administered on 02/27/17 08:44; Start 02/27/17 at 09:00 Famotidine (Pepcid) 20 mg DAILY PO Last administered on 02/27/17 08:43; Start 02/27/17 at 09:00 Folic Acid (Folate) 1 mg DAILY PO Last administered on 02/27/17 08:44; Start at 09:00 Furosemide (Lasix) 40 mg DAILY PO Last administered on 02/27/17 08:46; Start at 09:00 Hydroxyzine HCl (Atarax) 25 mg QID PRN PO ITCHING Last administered on 21:39; Start 02/26/17 at 19:45 Hyoscyamine Sulfate (Levsin Sl) 0.125 mg Q4H PRN SL SECRETIONS; Start 02/26/17 at 19:45 Levothyroxine Sodium (Synthroid) 25 mcg ACB PO Last administered on 02/27/17 06 :00; Start 02/27/17 at 06:30 Lorazepam (Ativan) 0.5 mg BID PO Last administered on 02/27/17 08:44; Start 02/26/17 at 21:00 Metoprolol Succinate (Toprol Xl) 25 mg DAILY PO Last administered on 02/27/17 08:45; Start 02/27/17 at 09:00 Pantoprazole Sodium (Protonix) 40 mg BID PO Last administered on 02/26/17 20:11 ; Start 02/26/17 at 21:00; Stop 02/27/17 at 05:40; Status DC Propranolol HCl (Inderal) 60 mg BID PO Last administered on 02/27/17 08:46; Start 02/27/17 at 09:00 Albuterol Sulfate (Proventil 2.5 Mg/3 ml) 2.5 mg Q4HR PRN AEROSOL Last administered on 02/26/17 21:03; Start 02/26/17 at 20:30 Pantoprazole Sodium 40 mg 40 mg ACBID PO Last administered on 02/27/17 05:59; Start 02/27/17 at 06:30 Sodium Chloride 1,000 ml @ 75 mls/hr [id number] IV Last administered on 02/27/17 11:46; Start 02/27/17 at 11:45 Dexamethasone Sodium Phosphate/ Sodium Chloride (Decadron/NS) 52.5 ml @ 157.5 mls/ hr O ONCE IV Last administered on 02/27/17 13:54; Start 02/27/17 at 14:45 ; Stop 02/27/17 at 15:04 Allopurinol 100 mg 100 mg DAILY PO ; Start 02/28/17 at 09:00 Rituximab/Sodium Chloride (Rituxan/NS) 540 ml @ 50 mls/hr [id number] ONCE IV ; Start 02/27/17 at 15:15; Stop 02/28/17 at 02:02 Diphenhydramine HCl (Benadryl) 25 mg O ONCE IV Last administered on 02/27/17 13:54; Start 02/27/17 at 14:45; Stop 02/27/17 at 14:46 Acetaminophen (Tylenol Regular Strength) 650 mg O ONCE PO Last administered on 02/27/17 13:54; Start 02/27/17 at 14:45; Stop 02/27/17 at 14:46 Radiology DATE OF EXAM: 02/26/17 ORDERING DOCTOR: REILLY STANLEY MD TYPE OF EXAM: CHEST 1 VIEW REASON FOR EXAM: SOA Indication: ITS.REASON: SOA PROCEDURE: CHEST 1 VIEW: Encounter: Initial Comparison: CT chest dated August 11, 2016 Findings: Moderate pulmonary fibrosis is again noted. No obvious acute pneumonia. No pleural effusion or pneumothorax. Moderately enlarged cardiac silhouette with pacemaker in place and intracardiac stent. Pulmonary vascularity appears grossly normal. Chronic rotator cuff tears with degenerative change in the spine. Impression: Chronic fibrosis. No obvious acute pneumonia or congestive failure. DATE OF EXAM: 02/26/17 ORDERING DOCTOR: REILLY STANLEY MD TYPE OF EXAM: US VENOUS DUPLEX, LOWER EXT LT REASON FOR EXAM: Edema, pain, Indication: ITS.REASON: Edema, pain, PROCEDURE: US VENOUS DUPLEX, LOWER EXT LT: Encounter: Initial Comparison: June 06, 2014 Technique: Color Doppler duplex and grayscale sonographic imaging of the left lower extremity was performed. Findings: Very slow flow noted in the venous system. There is no evidence for acute deep venous thrombosis in the left thigh. Specifically, serial graded compression was performed from the inguinal ligament to the popliteal bifurcation, on the left thigh, demonstrating appropriate compressibility of the deep venous system. In addition, color and pulsed Doppler demonstrate appropriate spontaneous flow, variation with respiration, and augmentation with calf compression. At the ankle, normal flow is identified in the posterior tibial veins; these vessels are also normal in caliber. Impression: No evidence of acute DVT in the left lower limb. Slow venous flow. Assessment & Plan Problems: (1) Localized edema Status: Acute Assessment & Plan: Increasing over last few weeks. No DVT per LE US (2) Presence of automatic implantable cardioverter-defibrillator Status: Chronic Assessment & Plan: [employer] Bi-V/P checked in office 11/2016. Will check Q 6 months. Last SANDRA showed EF of 55% in 01/2016 (3) Atherosclerotic heart disease of [place] coronary artery without angina pectoris Status: Chronic Qualifiers: [place] vs. transplanted heart: [place] heart Qualified Codes: I25.10 - Atherosclerotic heart disease of [place] coronary artery without angina pectoris Assessment & Plan: Heart cath with Stent to Circ 05/2016. Continue current antiplatelet therapy of Plavix and Aspirin, routine monitoring. (4) Non-rheumatic tricuspid valve insufficiency Status: Chronic Assessment & Plan: routine monitoring (5) Nonrheumatic aortic valve stenosis Status: Chronic Assessment & Plan: routine monitoring (6) Essential hypertension Status: Chronic Assessment & Plan: Well controlled on medical therapy, continue current therapy of Lasix and Propranolol. hold Metoprolol for now (7) Mixed hyperlipidemia Status: Chronic Assessment & Plan: Continue Atorvastatin (8) Chronic kidney disease, unspecified Status: Chronic Assessment & Plan: Continue Plavix and Aspirin, continue Lasix, and Propranolol and hold Metoprolol. Continue Atorvastatin. Plan/Intensity of Service Obtain EKG. JULIA SHEA MD 03/04/17 1018: Assessment & Plan Plan/Intensity of Service After examining the patient I agree with the above assessment. I am involved in the formulation of the patient's plan of care. PAULINE SNOW APRN February 27, 2017 14:05 JULIA SHEA MD March 04, 2017 10:18
[2017-02-27] MEDS ORDERED: HYDROCORTISONE 100mg/2ml Injection IV PRN (14:30)
[2017-02-27] MEDS ORDERED: NORMAL SALINE IV ONE ×2 (14:45→15:15)
[2017-02-27] MEDS ORDERED: ACETAMINOPHEN 325 MG TABLET PO ONE (14:45)
[2017-02-27] MEDS ORDERED: DEXAMETHASONE IV ONE (14:45)
[2017-02-27] MEDS ORDERED: DiphenhydrAMINE 50 MG/ML INJECTION IV ONE (14:45)
--- NOTE | 2017-02-27 15:02 | PNPDOC ---
Subjective Date DATE: 02/27/17 TIME: 14:45 Subjective F/U: Left lower ext edema - lymph obstruction due to lymphoma Doing okay. Some nausea this am. No ab pain. Breathing okay-needing O2, but not hurting with breathing or having cough/congestion. Still with diffuse itching. Objective Vital Signs Vital signs Vital Signs Date Time Temp Pulse Resp B/P Pulse Ox O2 Delivery O2 Flow Rate FiO2 02/27/17 14:35 96.6 65 16 113/61 99 Nasal Cannula 2.00 Telemetry Rhythm: Sinus Rhythm Height (Feet): 5 Height (Inches): 0.00 Weight (Kilograms): 44.600 General General Appearance: Alert, Well Nourished, Well Developed, Looks Stated Age Eyes (Brief) Eyes: FOUND: EOMI, PERRL, NOT FOUND: scleral icterus ENMT (Brief) ENMT: FOUND: hearing intact, mucosa moist Neck (Brief) Neck: FOUND: midline, NOT FOUND: nuchal rigidity, spasm Respiratory (Brief) Respiratory: FOUND: equal bilaterally, NOT FOUND: clear all fletcher (Decreased, no distress ), rales, wheezes Cardiovascular (Brief) Cardiac: FOUND: regular rate, regular rhythm Abdomen (Brief) Abdominal: FOUND: soft, NOT FOUND: distended, tender Extremities (Brief) Extremity : Side: Left Extremity: leg Extremity Finding: FOUND: edema (+3 ) Musculoskeletal (Brief) Musculoskeletal: FOUND: extremities move equally, NOT FOUND: deformity, spasm Integumentary (Brief) Integumentary: FOUND: dry, warm Neurologic (Brief) Neurological: FOUND: cranial 2-12 intact, motor (Intact ) Psychiatric (Brief) Psychiatric: FOUND: alert, normal affect Laboratory Laboratory Laboratory Tests 02/26/17 20:00 02/27/17 04:53 Laboratory Tests 02/26/17 20:00 02/27/17 04:53 Assessment & Plan Problems: (1) NHL (non-Hodgkin's lymphoma) Status: Acute Assessment & Plan: Relapsed - Chemo initiated on 02/27 (2) Edema of left lower extremity Status: Acute Assessment & Plan: Left lower - lymph obstruction secondary to relapsed NHL (3) Anemia Onset Date: 05/03/2014 Status: Acute (4) Fatigue Status: Acute Qualifiers: Encounter type: initial encounter (5) Anorexia Status: Acute (6) Generalized pruritus Status: Acute (7) Hypernatremia Status: Acute Assessment & Plan: POA (8) CAD (coronary artery disease) Status: Chronic Qualifiers: Coronary Disease-Associated Artery/Lesion type: [place] artery [place] vs. transplanted heart: [place] heart Associated angina: without angina Qualified Codes: I25.10 - Atherosclerotic heart disease of [place] coronary artery without angina pectoris (9) Hypertension Status: Chronic Qualifiers: Hypertension type: essential hypertension Qualified Codes: I10 - Essential (primary) hypertension (10) Mixed hyperlipidemia Status: Chronic (11) Presence of automatic implantable cardioverter-defibrillator Status: Chronic (12) Non-rheumatic tricuspid valve insufficiency Status: Chronic (13) Nonrheumatic aortic valve stenosis Status: Chronic (14) GERD (gastroesophageal reflux disease) Status: Chronic Qualifiers: Esophagitis presence: esophagitis presence not specified Qualified Codes: K21.9 - Gastro-esophageal reflux disease without esophagitis (15) Depression Status: Chronic Qualifiers: Depression Type: unspecified Qualified Codes: F32.9 - Major depressive disorder, single episode, unspecified (16) Anxiety Status: Chronic (17) Vascular dementia Status: Chronic Qualifiers: Dementia behavioral disturbance: without behavioral disturbance Qualified Codes: F01.50 - Vascular dementia without behavioral disturbance (18) Osteoarthritis Status: Chronic Qualifiers: Osteoarthritis location: multiple joints Osteoarthritis type: primary Qualified Codes: M15.0 - Primary generalized (osteo)arthritis (19) Gait instability Status: Chronic (20) Debility Status: Acute Plan/Intensity of Service With need for chemotherapy to address her edema, will change admission status to inpatient. Change IVF to 1/2 NS at 75cc/hr to provide hydration and correct hypernatremia. PT/OT to help functional status. Monitor blood counts - likely need transfusion. Pharmacy reviewed home meds and corrected our med rec. Recheck BMP in am due to hypernatremia. Repeat CBC due to anemia and chemo. DVT Prophylaxis: SCD'S Code Status Full Code, unverified Hospital Course Summary Disclaimer The hospital course summary below is not to be considered part of the above Progress Note. Hospital Course Summary 02/[address] patient in outpatient observation status at [facility] under the care of Dr. Rodrigues. Start IV fluids secondary to the presyncope patient was having in lubricating machine tender' s office. Obtain Doppler scan of left lower extremity to exclude possibility of blood clot. Most likely we are probably dealing with underlying lymph obstruction. However, in light of progression of edema, recheck Doppler is warranted. Will continue home medications. Will consult with Dr. Ramirez for oncological evaluation of her increased lower extremity edema as well as her anorexia. Check on pending laboratory - CMP, CBC, magnesium prealbumin TSH and UA were ordered at time of presentation. However, still pending. Initiate SCDs for DVT prevention. Cardiac telemetry will be obtained. Discussed code status with patient. Daughter reports she would want " everything done" but not wish to remain on machines. The patient will therefore be FULL CODE. Patient's care will be returned to Dr. Muro at time of discharge from [facility]. 02/27 ADMIT Doing okay. Some nausea this am. No ab pain. Breathing okay-needing O2, but not hurting with breathing or having cough/congestion. Still with diffuse itching. With need for chemotherapy to address her edema, will change admission status to inpatient. Change IVF to 1/2 NS at 75cc/hr to provide hydration and correct hypernatremia. PT/OT to help functional status. Monitor blood counts - likely need transfusion. Pharmacy reviewed home meds and corrected our med rec. Recheck BMP in am due to hypernatremia. Repeat CBC due to anemia and chemo. REILLY RODRIGUES MD February 27, 2017 14:50
[2017-02-27] MEDS ORDERED: RITUXIMAB IV ONE (15:15)
--- NOTE | 2017-02-27 15:41 | NUR ---
BRENT KENNEDY NOTES IF PT IS TO DC THIS WEEKEND PLEASE CALL [facility] [place] AT [phone] OR [phone] AND FAX ORDERS TO [phone]. DAUGHTER ELISABET TERAN AT [phone] TO TRANSPORT PT. PT ALSO HAS [facility] WE NEED TO NOTIFY THEM OF DC AT [phone].
--- NOTE | 2017-02-27 17:05 | NUR ---
SHIFT SUMMARY PT IS IN BED AT THIS MOMENT. PT IS ALERT AND ORIENTED TO HERSELF. PT IS ON 2L OF O2. TYLENOL AND ATIVAN WERE GIVEN SCHEDULE THIS MORNING. PT SAT IN THE CHAIR FOR BREAKFAST THIS MORNING. BED AND CHAIR ALARM HAD BEEN IN PLACE. PT AMBULATED THIS MORNING IN THE [place] WITH PT. DAUGHTER JENNIFER WAS NOTIFIED ABOUT NEW MEDS AND TREATMENTS. PT ASSIST X1 WITH GAIT BELT TO BEDSIDE COMMODE. ASSIST X1 WITH REPOSITIONING. PT SWALLOW PILLS WITHOUT A PROBLEM. CALL LIGHT WITHIN REACH.
--- NOTE | 2017-02-27 18:25 | NUR ---
Chemo/Rituxan Patient received dose of Rituxan as ordered by physician. Infusion was started at 50 ml/hr and increased at increments of 50 ml/hr every thirty minutes until rate was 250 ml/hr. Rate kept at 250 ml/hr due to medication running into peripheral site. Vitals were monitored and charted throughout infusion. RN stayed with patient continuously throughout infusion due to patient's dementia and history of pulling out IV's. Patient's daughter present through most of infusion as well. Patient tolerated medication well.
[2017-02-27] MEDS: ATORVASTATIN 20 MG TABLET PO SCH (20:27)
[2017-02-28] VITALS (9 sets, daily range): BP systolic 98–148; BP diastolic 50–67; PULSE 60–64; RESP 18–20; TEMP 95.8–97.5; O2SAT 94–100
[2017-02-28 05:24] LABS: URIC ACID 4.1 MG/DL (2.5-7.5)
--- NOTE | 2017-02-28 05:35 | NUR ---
SUMMARY PT SLEEPING AT THE MOMENT. HAS BEEN UP WITH ASSIST OF ONE TWICE. PT DENIED ANY PAIN. ALERT WITH CONFUSION. LEFT LEG STILL SWOLLEN. PT WAS GIVEN ATARAX AT THE BEGINNING OF THE SHIFT FOR ITCHING. BED ALARM ON. PT WAS EDUCATED OR MANAGER LIGHT USE AND PT SAFETY BUT NEEDS REINFORCEMENT. CONTINUES ON IV FLUIDS THAT SHE TOLERATES WELL. VSS.
[2017-02-28] MEDS: PANTOPRAZOLE 40 MG TABLET PO SCH ×2 (05:55→16:42)
[2017-02-28] MEDS: LEVOTHYROXINE 25 MCG TABLET PO SCH (05:55)
[2017-02-28] MEDS: 1/2 NS 1,000 ML IV SCH ×4 (05:55→21:36)
[2017-02-28 06:02] LABS: ABSOLUTE RETICS # 0.2168 T/MM3 (0.0300-0.0900); RETICULOCYTE % 15.9 % (0.6-1.7); RETICULOCYTE HGB 41.7 PG (30.8-36.6)
[2017-02-28 06:06] LABS: IGA - IMMUNOGLOBULIN A 44.16 MG/DL (70-400); IGG - IMMUNOGLOBULIN G 534.82 MG/DL (700-1600); IGM - IMMUNOGLOBULIN M 306.74 MG/DL (40-230)
[2017-02-28 06:10] LABS: IONIZED CALCIUM 1.4 MMOL/L (1.12-1.32)
[2017-02-28 08:03] LABS: HGB - HEMOGLOBIN 6.3 GM/DL (12-16); RED BLOOD COUNT 1.36 M/MM3 (4.00-5.20); WBC - WHITE BLOOD COUNT 8.2 T/MM3 (4.5-11.0)
[2017-02-28 08:04] LABS: HCT - HEMATOCRIT 16.5 % (36-46); MEAN CORPUSCULAR HGB 46.3 UUG (26-34); MEAN CORPUSCULAR HGB CONC(MCHC 38.2 GM/DL (31-37); MEAN CORPUSCULAR VOLUME 121.3 UM3 (80-100)
[2017-02-28 08:05] LABS: MEAN PLATELET VOLUME 11.9 UM3 (9.4-12.4)
[2017-02-28 08:07] LABS: ANION GAP 13 MEQ/L (5-15); BUN/CREATININE RATIO 30 RATIO (6-26); CALCIUM 10.8 MG/DL (8.4-10.2); CHLORIDE 104 MEQ/L (98-107); CO2 - CARBON DIOXIDE 27 MEQ/L (22-30); CREATININE 1.6 MG/DL (0.7-1.2); GLOMERULAR FILTRATION RATE 31; GLUCOSE 151 MG/DL (65-110); POTASSIUM 4.1 MEQ/L (3.6-5); SODIUM 144 MEQ/L (134-144)
[2017-02-28 08:23] LABS: BAND NEUTROPHILS # 0.1 T/MM3; CORRECTED WHITE BLOOD COUNT 6.7 T/MM3 (4.5-11.0); LYMPHOCYTES # (MANUAL) 1.2 T/MM3 (1-4.8); MONOCYTES # (MANUAL) 0.2 T/MM3 (0-0.8); NEUTROPHILS #(MANUAL)-ABSOLUTE 5.2 T/MM3 (1.8-7.7); NUCLEATED RED BLOOD CELLS 23; TOTAL CELLS COUNTED 100 %
[2017-02-28 08:24] LABS: ANISOCYTOSIS 1+; HOWELL-JOLLY BODIES 1+; POIKILOCYTOSIS 1+; TARGET CELLS 1+
[2017-02-28] MEDS ORDERED: NORMAL SALINE 500 ML IV SCH (08:37)
[2017-02-28] MEDS ORDERED: DiphenhydrAMINE 25 MG CAPSULE PO ONE (08:45)
[2017-02-28] MEDS ORDERED: ACETAMINOPHEN 325 MG TABLET PO ONE (08:45)
[2017-02-28] MEDS ORDERED: FUROSEMIDE 20 MG/2 ML INJECTION IV ONE (08:45)
[2017-02-28] MEDS: CLOPIDOGREL 75 MG TABLET PO SCH ×2 (09:00→10:46)
[2017-02-28] MEDS: FUROSEMIDE 40 MG TABLET PO SCH (09:21)
[2017-02-28] MEDS: FOLIC ACID 1 MG TABLET PO SCH (09:21)
[2017-02-28] MEDS: PROPRANOLOL 20 MG TABLET PO SCH ×2 (09:22→20:34)
[2017-02-28] MEDS: ACETAMINOPHEN 325 MG TABLET PO SCH ×2 (09:22→23:19)
[2017-02-28] MEDS: ASPIRIN *EC* 81mg TABLET PO SCH (09:22)
[2017-02-28] MEDS: DULOXETINE 60 MG CAPSULE PO SCH (09:22)
[2017-02-28] MEDS: LORAZEPAM 0.5 MG TABLET PO SCH ×2 (09:23→20:35)
[2017-02-28] MEDS: FAMOTIDINE 20 MG TABLET PO SCH (09:23)
[2017-02-28] MEDS: ALLOPURINOL 100 MG TABLET PO SCH (09:24)
[2017-02-28] MEDS: BUDESONIDE 0.25 MG/2 ML AEROSOL SCH ×2 (10:01→19:50)
--- NOTE | 2017-02-28 10:44 | PNPDOC ---
JUN CHRIS IT HELP DESK MANAGER 02/28/17 1026: Subjective Date DATE: 02/28/17 TIME: 10:23 Subjective Erika states she feels tired, and cold, but is doing better now since she covered up in a warm blanket and the room temperature was increased. She also has some lightheadedness when she stands up. She notes mild nausea but was able to eat breakfast. She complains of mild lower back pain, which has been present intermittently since her fall. She thinks the swelling in her left leg is getting worse, and complains of it hurting. She denies feeling short of breath or having any chest pain. No abdominal pain or constipation. She knows that she' s not supposed to get up without help from staff. Objective Vital Signs Vital signs Vital Signs Date Time Temp Pulse Resp B/P Pulse Ox O2 Delivery O2 Flow Rate FiO2 02/28/17 10:01 18 100 02/28/17 07:31 96.8 61 140/67 Nasal Cannula 2.00 Telemetry Rhythm: Sinus Rhythm Height (Feet): 5 Height (Inches): 0.00 Weight (Kilograms): 47.600 General General Appearance: Alert, Orientated x 3, Well Nourished, Well Developed, No Acute Distress Eyes (Brief) Eyes: FOUND: PERRL, NOT FOUND: scleral icterus ENMT (Brief) ENMT: FOUND: mucosa moist, NOT FOUND: pharnyx erythema Respiratory (Brief) Respiratory: FOUND: equal bilaterally Comments decreased b/l bases Cardiovascular (Brief) Cardiac: FOUND: murmur, regular rate, regular rhythm Abdomen (Brief) Abdominal: FOUND: BS normo active x4, soft, NOT FOUND: distended, tender Extremities (Brief) Extremity : Side: Left Extremity: leg Extremity Finding: FOUND: edema (3+) Musculoskeletal (Brief) Musculoskeletal: FOUND: tenderness (left calf is tender; mild tenderness to lower lumbar region over spinous processes) Integumentary (Brief) Integumentary: FOUND: dry, warm, NOT FOUND: pink (pallor) Comments ecchymosis to both arms Psychiatric (Brief) Psychiatric: FOUND: alert, attentive, normal affect, oriented Laboratory Laboratory Laboratory Tests 02/26/17 20:00 02/27/17 04:53 02/28/17 04:10 Laboratory Tests 02/26/17 20:00 02/27/17 04:53 02/28/17 04:10 Assessment & Plan Problems: (1) NHL (non-Hodgkin's lymphoma) Status: Acute Assessment & Plan: Relapsed - Chemo initiated on 02/27 (2) Edema of left lower extremity Status: Acute Assessment & Plan: Left lower - lymph obstruction secondary to relapsed NHL (3) Anemia Onset Date: 05/03/2014 Status: Acute (4) Fatigue Status: Acute Qualifiers: Encounter type: initial encounter (5) Anorexia Status: Acute (6) Generalized pruritus Status: Acute (7) Hypernatremia Status: Resolved Assessment & Plan: POA (8) CAD (coronary artery disease) Status: Chronic Qualifiers: Coronary Disease-Associated Artery/Lesion type: [place] artery [place] vs. transplanted heart: [place] heart Associated angina: without angina Qualified Codes: I25.10 - Atherosclerotic heart disease of [place] coronary artery without angina pectoris Assessment & Plan: Heart cath 05/2016 - stent to Circ 05/2016. Continue Plavix and Aspirin (9) Hypertension Status: Chronic Qualifiers: Hypertension type: essential hypertension Qualified Codes: I10 - Essential (primary) hypertension (10) Mixed hyperlipidemia Status: Chronic (11) Presence of automatic implantable cardioverter-defibrillator Status: Chronic (12) Non-rheumatic tricuspid valve insufficiency Status: Chronic (13) Nonrheumatic aortic valve stenosis Status: Chronic (14) GERD (gastroesophageal reflux disease) Status: Chronic Qualifiers: Esophagitis presence: esophagitis presence not specified Qualified Codes: K21.9 - Gastro-esophageal reflux disease without esophagitis (15) Depression Status: Chronic Qualifiers: Depression Type: unspecified Qualified Codes: F32.9 - Major depressive disorder, single episode, unspecified (16) Anxiety Status: Chronic (17) Vascular dementia Status: Chronic Qualifiers: Dementia behavioral disturbance: without behavioral disturbance Qualified Codes: F01.50 - Vascular dementia without behavioral disturbance (18) Osteoarthritis Status: Chronic Qualifiers: Osteoarthritis location: multiple joints Osteoarthritis type: primary Qualified Codes: M15.0 - Primary generalized (osteo)arthritis (19) Gait instability Status: Chronic (20) Debility Status: Acute Plan/Intensity of Service Acute on chronic anemia - h&h down to 6.[address] Peng has already ordered 2 units of blood, but due to antibodies the blood will be coming from [place]. Should arrive this afternoon. Lasix to be given in between units. Stool was negative for occult blood last night though patient reported "a few red stools" to oncology when they saw her in consultation. CAD with stent placed in 05/2016 - Cont ASA and Plavix. Platelets are normal at 238. Hypotension - SBP in 90s for much of yesterday. Improved this morning. Cont to hold metoprolol. Cont Inderal. HR upper 50s-60s. Weight has increased to 47.6 and she is nearly 3.6L fluid positive. If her BP remains stable today could probably DC IVF. CXR showed pulm fibrosis. Hypernatremia - resolved. Na 144. Not a candidate for anticoagulants for VTE ppx d/t severe anemia. Discussed with Dr. Peng. Code Status Full Code, unverified Hospital Course Summary Disclaimer The hospital course summary below is not to be considered part of the above Progress Note. Hospital Course Summary 02/[address] patient in outpatient observation status at [facility] under the care of Dr. Rodrigues. Start IV fluids secondary to the presyncope patient was having in bottom polisher' s office. Obtain Doppler scan of left lower extremity to exclude possibility of blood clot. Most likely we are probably dealing with underlying lymph obstruction. However, in light of progression of edema, recheck Doppler is warranted. Will continue home medications. Will consult with Dr. Ramirez for oncological evaluation of her increased lower extremity edema as well as her anorexia. Check on pending laboratory - CMP, CBC, magnesium prealbumin TSH and UA were ordered at time of presentation. However, still pending. Initiate SCDs for DVT prevention. Cardiac telemetry will be obtained. Discussed code status with patient. Daughter reports she would want " everything done" but not wish to remain on machines. The patient will therefore be FULL CODE. Patient's care will be returned to Dr. Muro at time of discharge from [facility]. 02/27 ADMIT Doing okay. Some nausea this am. No ab pain. Breathing okay-needing O2, but not hurting with breathing or having cough/congestion. Still with diffuse itching. With need for chemotherapy to address her edema, will change admission status to inpatient. Change IVF to 1/2 NS at 75cc/hr to provide hydration and correct hypernatremia. PT/OT to help functional status. Monitor blood counts - likely need transfusion. Pharmacy reviewed home meds and corrected our med rec. Recheck BMP in am due to hypernatremia. Repeat CBC due to anemia and chemo. 02/28/17 Acute on chronic anemia - h&h down to 6.[address]. Peng has already ordered 2 units of blood, but due to antibodies the blood will be coming from [place]. Should arrive this afternoon. Lasix to be given in between units. Stool was negative for occult blood last night though patient reported "a few red stools" to oncology when they saw her in consultation. CAD with stent placed in 05/2016 - Cont ASA and Plavix. Platelets are normal at 238. Hypotension - SBP in 90s for much of yesterday. Improved this morning. Cont to hold metoprolol. Cont Inderal. HR upper 50s-60s. Weight has increased to 47.6 and she is nearly 3.6L fluid positive. If her BP remains stable today could probably DC IVF. CXR showed pulm fibrosis. Hypernatremia - resolved. Na 144. Not a candidate for anticoagulants for VTE ppx d/t severe anemia. ANALIA PENG MD 02/28/17 1307: Assessment & Plan Assessment 02/28/2017-I reviewed this chart, the patient history, and the IT HELP DESK MANAGER's/PA's documented findings as above. We discussed and formulated the assessment and plan as above with the additions below.-Danish Patient is seen in her room accompanied by 2 of her daughters. She denies any shortness of breath. She has chronic pain in her arms which is musculoskeletal in nature. She also complains of pain in the back of her legs when she gets up to walk and this is a new problem. She states she is eating okay. She is urinating without difficulties. She states her bowel movements look a little bit orange but not black or bloody. She had nausea this morning but that is resolved. On physical exam she is alert and in no acute distress. She is on 1 L of oxygen. She states she is chronically on 3 L of oxygen. HEENT reveals sclerae to be anicteric and oropharynx is moist. Neck is supple. Chest reveals dry sounding crackles bilaterally in both the anterior and posterior lung fletcher. Cardiovascular reveals a regular rate and rhythm with a 3/6 systolic murmur. Abdomen is soft and nontender with positive bowel sounds. Skin is warm and dry and without rashes Lab today shows hemoglobin of 6.3 down from 7.5. White count is 8.2. Platelets 238. BUN is 48. Creatinine 1.6 down from 1.7. Calcium is 10.8. Ionized calcium is 1.4. Uric acid is normal at 4.1. Hemoccult stool yesterday was negative. 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 Sanchez and he recommends transfusing with 2 units of leuko- reduced and irradiated blood. We'll give Lasix 1 after first unit Crackles on lung fletcher on exam are likely secondary to pulmonary fibrosis. She is only on 1 L of oxygen but chronically is on 3 L. Weight is up 2.4 kg. Monitor closely for fluid overload. We'll decrease IV fluids CBC and basic metabolic profile tomorrow regarding hemolytic anemia and chronic kidney disease Restart Brovana for COPD DVT Prophylaxis: SCD'S JUN CHRIS APRN February 28, 2017 10:26 ANALIA PENG MD February 28, 2017 13:07
--- NOTE | 2017-02-28 13:17 | PNPDOC ---
Subjective Date DATE: 02/28/17 TIME: 13:07 wm with aiha associated with recurrent NHL. Pt now on rituxan. h/o anemia with hgb of 8, now 6.5. Pt tole rituxan well, now with weakness, chills. CHallenging to transfuse due to antibodies. Pt now eating lunch comfy. No new c/o. Objective Vital Signs Vital Signs 02/28/17 02/28/17 02/28/17 02/28/17 04:26 07:31 10:01 11:55 Temp 97.5 96.8 95.8 Pulse 60 61 60 Resp 18 18 18 20 B/P 98/55 140/67 115/62 Pulse Ox 96 98 100 94 O2 Delivery Nasal Cannula Nasal Cannula Nasal Cannula O2 Flow Rate 2.00 2.00 1.00 Height (Feet): 5 Height (Inches): 0.00 Weight (Kilograms): 47.600 General Comments wf eating in chair, no new c/o. afeb, chills weak Respiratory (Brief) Respiratory: FOUND: clear all fletcher, equal bilaterally, other, rales, spasm, symmetrical, tenderness, wheezes Cardiovascular (Brief) Cardiac: FOUND: click, gallop, murmur, other, pedal edema, peripheral edema, regular rate, regular rhythm, rub Abdomen (Brief) Abdominal: FOUND: BS normo active x4, distended, hepatosplenomegaly, other, pulsatile mass, soft, tender Neurologic (Brief) FOUND: Babinski, DTR 2/4 all extremities, cerebellar, cranial 2-12 intact, motor , other, patellar DTR 2/4, sensory Psychiatric (Brief) FOUND: alert, attentive, normal affect, oriented Laboratory Laboratory Tests Test 02/27/17 21:13 02/28/17 04:10 Stool Occult Blood Negative White Blood Count 8.2T/MM3 Corrected White Blood Count 6.7T/MM3 Red Blood Count 1.36M/MM3 Hemoglobin 6.3GM/DL Hematocrit 16.5% Mean Corpuscular Volume 121.3UM3 Mean Corpuscular Hemoglobin 46.3UUG Mean Corpuscular Hemoglobin Concent 38.2GM/DL RDW Standard Deviation 74.5FL Platelet Count 238T/MM3 Mean Platelet Volume 11.9UM3 Immature Granulocyte % (Auto) % Neutrophils (%) (Auto) % Lymphocytes (%) (Auto) % Monocytes (%) (Auto) % Eosinophils (%) (Auto) % Basophils (%) (Auto) % Absolute Immature Granulocyte (auto T/MM3 Absolute Neutrophils (auto) T/MM3 Absolute Lymphocytes (auto) T/MM3 Absolute Monocytes (auto) T/MM3 Absolute Eosinophils (auto) T/MM3 Absolute Basophils (auto) T/MM3 Neutrophils % (Manual) 77.0% Band Neutrophils % 2.0% Lymphocytes % (Manual) 18.0% Monocytes % (Manual) 3.0% Absolute Neutrophils (Manual) 5.2T/MM3 Band Neutrophils # 0.1T/MM3 Lymphocytes # (Manual) 1.2T/MM3 Monocytes # (Manual) 0.2T/MM3 Nucleated Red Blood Cells 23 Poikilocytosis 1+ Anisocytosis 1+ Macrocytosis 2+ Target Cells 1+ [place] Bodies 1+ Red Cell Morphology Comment Abnormal Absolute Reticulocyte Count 0.2168T/MM3 Percent Reticulocyte Count 15.9% Immature Reticulocyte Fraction 15.6% Reticulocyte Hgb Content (CHr) 41.7PG Turbidity < 20 Sodium Level 144MEQ/L Potassium Level 4.1MEQ/L Chloride Level 104MEQ/L Carbon Dioxide Level 27MEQ/L Anion Gap 13MEQ/L Blood Urea Nitrogen 48.0MG/DL Creatinine 1.6MG/DL Glomerular Filtration Rate Calc 31 BUN/Creatinine Ratio 30RATIO Glucose Level 151MG/DL Calculated Osmolality 293MOSM/KG Uric Acid 4.1MG/DL Calcium Level 10.8MG/DL Ionized Calcium (Measured) 1.40MMOL/L Iron Level Pending Total Iron Binding Capacity Pending Percent Iron Saturation Pending Ferritin Pending Icterus Index < 2 Lactate Dehydrogenase 1286U/L Serum Total Protein Pending Albumin % (PEP) Pending Albumin (PEP) Pending Iovtj-2-Erempioci Pending Vkyxz-6-Zpsnflcmy (%) Pending Ssgdw-6-Zeedkrbfh Pending Smsrp-6-Zhqkapkeq (%) Pending Jsir-4-Jpnqucxy Pending Zsej-3-Bteavtzm (%) Pending Fkse-2-Olobixbb Pending Bhek-4-Asosrfiv (%) Pending Gamma Globulins Pending Gamma Globulins (%) Pending Vitamin B12 Level Pending Chemistry Specimen Hemolysis < 15 Immunoglobulin G 534.82MG/DL Immunoglobulin A 44.16MG/DL Immunoglobulin M 306.74MG/DL Assessment & Plan Assessment Recurrent NHL AIHA Anemia hypercalcemia chronic kidney disease fatigue depression GERD S/p rituxan Plan rituxan is treatment for anemia from AIHA, Transfuse if possible. May be limited by antiboides. For hypercalcemia, consider gentle hydration, monitor CA levels, consider nephrology eval, consider aredia or zometa if needed. Pt comfy now, Observe HGB. pt elected to be a full code Code Status Full Code, unverified Hospital Course Summary Disclaimer The visit summary below is not to be considered part of the above Progress Note. Hospital Course Summary 02/[address] patient in outpatient observation status at [facility] under the care of Dr. Rodrigues. Start IV fluids secondary to the presyncope patient was having in radiation officer' s office. Obtain Doppler scan of left lower extremity to exclude possibility of blood clot. Most likely we are probably dealing with underlying lymph obstruction. However, in light of progression of edema, recheck Doppler is warranted. Will continue home medications. Will consult with Dr. Ramirez for oncological evaluation of her increased lower extremity edema as well as her anorexia. Check on pending laboratory - CMP, CBC, magnesium prealbumin TSH and UA were ordered at time of presentation. However, still pending. Initiate SCDs for DVT prevention. Cardiac telemetry will be obtained. Discussed code status with patient. Daughter reports she would want " everything done" but not wish to remain on machines. The patient will therefore be FULL CODE. Patient's care will be returned to Dr. Muro at time of discharge from [facility]. 02/27 ADMIT Doing okay. Some nausea this am. No ab pain. Breathing okay-needing O2, but not hurting with breathing or having cough/congestion. Still with diffuse itching. With need for chemotherapy to address her edema, will change admission status to inpatient. Change IVF to 1/2 NS at 75cc/hr to provide hydration and correct hypernatremia. PT/OT to help functional status. Monitor blood counts - likely need transfusion. Pharmacy reviewed home meds and corrected our med rec. Recheck BMP in am due to hypernatremia. Repeat CBC due to anemia and chemo. 02/28/17 Acute on chronic anemia - h&h down to 6.[address] Peng has already ordered 2 units of blood, but due to antibodies the blood will be coming from [place]. Should arrive this afternoon. Lasix to be given in between units. Stool was negative for occult blood last night though patient reported "a few red stools" to oncology when they saw her in consultation. CAD with stent placed in 05/2016 - Cont ASA and Plavix. Platelets are normal at 238. Hypotension - SBP in 90s for much of yesterday. Improved this morning. Cont to hold metoprolol. Cont Inderal. HR upper 50s-60s. Weight has increased to 47.6 and she is nearly 3.6L fluid positive. If her BP remains stable today could probably DC IVF. CXR showed pulm fibrosis. Hypernatremia - resolved. Na 144. Not a candidate for anticoagulants for VTE ppx d/t severe anemia. DANYA FRANK February 28, 2017 13:12
--- NOTE | 2017-02-28 14:41 | NUR ---
STATUS PT ALERT, ORIENTED TO PERSON. PT ON 2L/NC, DENIES SOA. DENIES PAIN, DENIES N/V AT THIS TIME. UP WITH ASSIST X1, GAIT BELT, WALKER. TURN Q2H WITH ASSIST X1-2. ADEQUATE URINE OUTPUT. IVF INFUSING ORDERED INTO LEFT WRIST. PT EXPRESSES UNDERSTANDING OF S/S TO REPORT TO NURSING STAFF. BED ALARM ON, CALL LIGHT WITHIN REACH.
--- NOTE | 2017-02-28 16:00 | NUR ---
STATUS PT STANDING AT SIDE OF BED. IS CONFUSED-STATING SHE WANTS TO GO TO HER ROOM AT THE HOSPITAL. ATTEMPT MADE TO REORIENT PT. PT LIES DOWN QUIETLY IN BED BUT IS NOT CONVINCED THAT SHE IS AT THE HOSPITAL. BED ALARM ON FOR PT SAFETY. VITALS OBTAINED AND STABLE CHARTED. WILL CONTINUE TO MONITOR.
--- NOTE | 2017-02-28 18:30 | NUR ---
STATUS PT CONTINUES TO BE CONFUSED. IS ALSO SUSPICIOUS OF STAFF STATING WE MUST BE IN AGREEMENT WITH HER DAUGHTER WHO BROUGHT HER HERE. PT CONTINUES TO GET UP WITHOUT CALLING FOR ASSISTANCE. PT MOVED TO ROOM 142 FOR SAFETY BEING CLOSER TO THE NURSES' DESK. PT SITS UP IN CHAIR EATING SUPPER. WILL CONTINUE TO MONITOR.
[2017-02-28] MEDS ORDERED: HALOPERIDOL 5 MG/ML INJECTION IV PRN (18:45)
[2017-02-28] MEDS: ARFORMOTEROL 15 MCG/2 ML AEROSOL SCH (19:51)
[2017-02-28] MEDS: ATORVASTATIN 20 MG TABLET PO SCH (20:34)
[2017-03-01] VITALS (9 sets, daily range): BP systolic 100–120; BP diastolic 44–63; PULSE 59–68; RESP 18–24; TEMP 96.3–98.1; O2SAT 88–99
--- NOTE | 2017-03-01 00:28 | NUR ---
Order: Notified via tigertext of Pt's Blood pressure of 88/50, and then 111/61. Blood transfusion is currently on hold per Order's. Her next CBC is at 0400. Her last Hemoglobin was on 02/28 at 0410 and was 6.3. Requested order from to draw AM lab or add additional HGB now. Received order to draw only HGB now. This nurse verbalized understanding. Notified Lab and Pt's RN, Nella.
[2017-03-01] MEDS: ONDANSETRON 4mg/2ml INJECTION IV PRN (00:49)
[2017-03-01 00:50] LABS: HGB - HEMOGLOBIN 6.5 GM/DL (12-16)
[2017-03-01] MEDS: LORAZEPAM 0.5 MG TABLET PO PRN (00:52)
--- NOTE | 2017-03-01 03:00 | NUR ---
STATUS PT ALERT AND ORIENTED TO SELF ONLY. PT VERY CONFUSED AT THE START OF THE SHIFT. ATTEMPTED TO STAND UP ASKING TO GO HOME. PT WOULD POINT TO STAFF AT NURSING DESK STATING THAT IS MY DAUGHTER RIGHT THERE. PT HAS POOR EYE SIGHT WITH CONFUSION. RE-DIRECT AND ORIENTED NUMBER OF TIMES. PT'S DAUGHTER CALLED AND VISITED WITH PT. AFTER THAT PT WAS MORE PLEASANT AND LESS ANXIOUS. LAB CALLED THIS NURSE TO LET HER KNOW THE 2 UNITS OF BLOOD WAS READY TO GIVE. NOTIFIED DR DILLON OF THE LEAST COMPATIBLE OF THE 2 UNITS. RECEIVED A ORDER TO HOLD THE 2 UNITS OF BLOOD UNTIL MORNING. Hgb WAS CHECKED 6.5. ALSO THE PT'S CODE STATUS WAS VERIFIED BY THE [facility] [place] WHERE THE PT LIVES. A COPY OF THE CODE STATUS WAS RECEIVED BY FAX. DR DILLON WAS TIGER TEXT OF PT'S CODE STATUS AND Hgb 6.5.
[2017-03-01 05:48] LABS: ANION GAP 12 MEQ/L (5-15); BUN/CREATININE RATIO 32 RATIO (6-26); CALCIUM 10.5 MG/DL (8.4-10.2); CHLORIDE 102 MEQ/L (98-107); CO2 - CARBON DIOXIDE 28 MEQ/L (22-30); CREATININE 1.5 MG/DL (0.7-1.2); GLOMERULAR FILTRATION RATE 33; GLUCOSE 79 MG/DL (65-110); POTASSIUM 3.7 MEQ/L (3.6-5); SODIUM 142 MEQ/L (134-144)
[2017-03-01 05:49] LABS: HGB - HEMOGLOBIN 6.2 GM/DL (12-16); MEAN CORPUSCULAR HGB 44.3 UUG (26-34); MEAN CORPUSCULAR HGB CONC(MCHC 36.7 GM/DL (31-37); MEAN CORPUSCULAR VOLUME 120.7 UM3 (80-100); MEAN PLATELET VOLUME 11.8 UM3 (9.4-12.4)
[2017-03-01 05:54] LABS: HCT - HEMATOCRIT 16.9 % (36-46)
[2017-03-01 06:07] LABS: ANISOCYTOSIS 1+; BASOPHILS # (MANUAL) 0.3 T/MM3 (0-0.2); LYMPHOCYTES # (MANUAL) 1.7 T/MM3 (1-4.8); MONOCYTES # (MANUAL) 1.1 T/MM3 (0-0.8); NUCLEATED RED BLOOD CELLS 1; POIKILOCYTOSIS 1+; TOTAL CELLS COUNTED 100 %
[2017-03-01 06:08] LABS: HOWELL-JOLLY BODIES 1+
[2017-03-01] MEDS: LEVOTHYROXINE 25 MCG TABLET PO SCH (07:22)
[2017-03-01] MEDS: PANTOPRAZOLE 40 MG TABLET PO SCH ×2 (07:22→17:07)
--- NOTE | 2017-03-01 07:40 | NUR ---
Order: Dr. Peng recommended to this nurse to reach the Oncologist regarding's Pt's blood/cold antibodies. Called Dr. Tejeda and received telephone order to continue to hold the blood transfusion and he will be in later to decide further orders.
--- NOTE | 2017-03-01 08:40 | NUR ---
STATUS PT ALERT AND COOPERATIVE. VITALS STABLE CHARTED. ATTEMPT MADE TO WEAN O2 BUT O2 SATS DROP TO 88% WHEN ON ROOM AIR. O2 CONTINUED AT 1L PER NC WITH SATS THEN STAYING IN THE 90'S. PT DENIES PAIN THIS MORNING. PT TRANSFERRED TO CHAIR WITH ASSIST X1 FOR BREAKFAST. WILL CONTINUE TO MONITOR.
[2017-03-01] MEDS: PROPRANOLOL 20 MG TABLET PO SCH ×2 (09:00→20:09)
[2017-03-01] MEDS: ARFORMOTEROL 15 MCG/2 ML AEROSOL SCH ×2 (09:49→21:01)
[2017-03-01] MEDS: BUDESONIDE 0.25 MG/2 ML AEROSOL SCH ×2 (09:49→21:01)
--- NOTE | 2017-03-01 10:40 | PNPDOC ---
JUN CHRIS MUD ANALYSIS OPERATOR 03/01/17 1027: Subjective Date DATE: 03/01/17 TIME: 10:24 Subjective Erika was sitting in her chair, states that she feels weak and tired. She was moved to room 142 because of confusion. She's been suspicious of staff and has tried to get up on her own. She notes shortness of breath on occasion, but none at the moment. She has a little pain to the top of her left foot when she stands up. She denies any chest pain. No abdominal pain or nausea and she was able to eat a good breakfast. She had several small soft bowel movements yesterday. We talked about the delay in getting her blood (she didn't seem to recall our conversation yesterday), and she states that she's had to get blood from [place] in the past. Objective Vital Signs Vital signs Vital Signs Date Time Temp Pulse Resp B/P Pulse Ox O2 Delivery O2 Flow Rate FiO2 03/01/17 09:57 65 03/01/17 09:40 16 99 03/01/17 08:47 96.9 103/44 Room Air 03/01/17 04:00 0.50 Telemetry Rhythm: Sinus Rhythm Height (Feet): 5 Height (Inches): 0.00 Weight (Kilograms): 48.700 General General Appearance: Alert, No Acute Distress Eyes (Brief) Eyes: FOUND: PERRL, NOT FOUND: scleral icterus Respiratory (Brief) Comments decreased b/l faint crackles left lower lobe Cardiovascular (Brief) Cardiac: FOUND: murmur (3/6), regular rate, regular rhythm Abdomen (Brief) Abdominal: FOUND: BS normo active x4, soft, NOT FOUND: tender Extremities (Brief) Extremity : Side: Left Extremity: leg Extremity Finding: FOUND: edema Musculoskeletal (Brief) Musculoskeletal: NOT FOUND: loss of motion Integumentary (Brief) Integumentary: FOUND: dry, warm, NOT FOUND: pink (pallor) Psychiatric (Brief) Psychiatric: FOUND: alert, normal affect Laboratory Laboratory Laboratory Tests 02/28/17 04:10 03/01/17 03:49 Laboratory Tests 02/28/17 04:10 03/01/17 00:36 03/01/17 03:49 Assessment & Plan Problems: (1) NHL (non-Hodgkin's lymphoma) Status: Acute Assessment & Plan: Relapsed - Chemo initiated on 02/27 (2) Edema of left lower extremity Status: Acute Assessment & Plan: Left lower - lymph obstruction secondary to relapsed NHL (3) Anemia Onset Date: 05/03/2014 Status: Acute (4) Fatigue Status: Acute Qualifiers: Encounter type: initial encounter (5) Anorexia Status: Acute (6) Generalized pruritus Status: Acute (7) Hypernatremia Status: Resolved Assessment & Plan: POA (8) CAD (coronary artery disease) Status: Chronic Qualifiers: Coronary Disease-Associated Artery/Lesion type: [place] artery [place] vs. transplanted heart: [place] heart Associated angina: without angina Qualified Codes: I25.10 - Atherosclerotic heart disease of [place] coronary artery without angina pectoris Assessment & Plan: Heart cath 05/2016 - stent to Circ 05/2016. Continue Plavix and Aspirin (9) Hypertension Status: Chronic Qualifiers: Hypertension type: essential hypertension Qualified Codes: I10 - Essential (primary) hypertension (10) Mixed hyperlipidemia Status: Chronic (11) Presence of automatic implantable cardioverter-defibrillator Status: Chronic (12) Non-rheumatic tricuspid valve insufficiency Status: Chronic (13) Nonrheumatic aortic valve stenosis Status: Chronic (14) GERD (gastroesophageal reflux disease) Status: Chronic Qualifiers: Esophagitis presence: esophagitis presence not specified Qualified Codes: K21.9 - Gastro-esophageal reflux disease without esophagitis (15) Depression Status: Chronic Qualifiers: Depression Type: unspecified Qualified Codes: F32.9 - Major depressive disorder, single episode, unspecified (16) Anxiety Status: Chronic (17) Vascular dementia Status: Chronic Qualifiers: Dementia behavioral disturbance: without behavioral disturbance Qualified Codes: F01.50 - Vascular dementia without behavioral disturbance (18) Osteoarthritis Status: Chronic Qualifiers: Osteoarthritis location: multiple joints Osteoarthritis type: primary Qualified Codes: M15.0 - Primary generalized (osteo)arthritis (19) Gait instability Status: Chronic (20) Debility Status: Acute (21) Hypercalcemia Assessment Recurrent non-Hodgkin's lymphoma Autoimmune hemolytic anemia Lymphedema secondary to non-Hodgkin's lymphoma Pulmonary fibrosis COPD Coronary artery disease with a stent placed in May 2016 Pacemaker (daughter states she does not have a defibrillator) Leg pains with activity likely secondary to anemia Chronic kidney disease Hypercalcemia Pruritus likely secondary to non-Hodgkin's lymphoma Protein calorie malnutrition Hypernatremia-resolved History of GI bleed-recent Hemoccult negative Vascular dementia\\ Hypertension Plan Discussed with Dr. Sanchez and he recommends transfusing with 2 units of leuko- reduced and irradiated blood. We'll give Lasix 1 after first unit Crackles on lung fletcher on exam are likely secondary to pulmonary fibrosis. She is only on 1 L of oxygen but chronically is on 3 L. Weight is up 2.4 kg. Monitor closely for fluid overload. We'll decrease IV fluids CBC and basic metabolic profile tomorrow regarding hemolytic anemia and chronic kidney disease Restart Brovana for COPD Plan/Intensity of Service Acute encephalopathy/delirium, superimposed on dementia - moved to room 142 for safety; PRN dose of Haldol given last night. Acute on chronic anemia - having difficulty matching blood d/t antibodies. Dr. Tejeda aware - will round on the pt and complete transfusion orders today. Hypotension - BP marginal. Consider reducing Inderal; continue to hold metoprolol. Continue IVF, but decrease rate. Once BP stabilizes (expect improvement with blood transfusion), would like to DC IVF b/c of weight gain and being fluid positive. Renal function improving. Hypercalcemia - improved to 10.5. Dr. Tejeda - consider nephrology eval, Aredia or Zometa Code Status Do Not Resuscitate Hospital Course Summary Disclaimer The hospital course summary below is not to be considered part of the above Progress Note. Hospital Course Summary 02/[address] patient in outpatient observation status at [facility] under the care of Dr. Rodrigues. Start IV fluids secondary to the presyncope patient was having in technical administrative assistant' s office. Obtain Doppler scan of left lower extremity to exclude possibility of blood clot. Most likely we are probably dealing with underlying lymph obstruction. However, in light of progression of edema, recheck Doppler is warranted. Will continue home medications. Will consult with Dr. Ramirez for oncological evaluation of her increased lower extremity edema as well as her anorexia. Check on pending laboratory - CMP, CBC, magnesium prealbumin TSH and UA were ordered at time of presentation. However, still pending. Initiate SCDs for DVT prevention. Cardiac telemetry will be obtained. Discussed code status with patient. Daughter reports she would want " everything done" but not wish to remain on machines. The patient will therefore be FULL CODE. Patient's care will be returned to Dr. Muro at time of discharge from [facility]. 02/27 ADMIT Doing okay. Some nausea this am. No ab pain. Breathing okay-needing O2, but not hurting with breathing or having cough/congestion. Still with diffuse itching. With need for chemotherapy to address her edema, will change admission status to inpatient. Change IVF to 1/2 NS at 75cc/hr to provide hydration and correct hypernatremia. PT/OT to help functional status. Monitor blood counts - likely need transfusion. Pharmacy reviewed home meds and corrected our med rec. Recheck BMP in am due to hypernatremia. Repeat CBC due to anemia and chemo. 02/28/17 Acute on chronic anemia - h&h down to 6.[address] Peng has already ordered 2 units of blood, but due to antibodies the blood will be coming from [place]. Should arrive this afternoon. Lasix to be given in between units. Stool was negative for occult blood last night though patient reported "a few red stools" to oncology when they saw her in consultation. CAD with stent placed in 05/2016 - Cont ASA and Plavix. Platelets are normal at 238. Hypotension - SBP in 90s for much of yesterday. Improved this morning. Cont to hold metoprolol. Cont Inderal. HR upper 50s-60s. Weight has increased to 47.6 and she is nearly 3.6L fluid positive. If her BP remains stable today could probably DC IVF. CXR showed pulm fibrosis. Hypernatremia - resolved. Na 144. Not a candidate for anticoagulants for VTE ppx d/t severe anemia. ANALIA PENG MD 03/01/17 1132: Assessment & Plan Plan/Intensity of Service 03/01/2017-Dr. Peng Patient is seen this morning in her room. She states she had some mild nausea with breakfast but is not nauseated now. She denies any chest pain or abdominal pain. She denies any shortness of breath. She does have some pain in her left leg and continues to have edema and weeping of the left leg. She was not able to receive her blood transfusion last night secondary to blood incompatibility. Dr. Tejeda has been notified and will see the patient later today and decide on what transfusion at that time. On exam the patient is pale, alert and in no acute distress. HEENT reveals sclerae to be anicteric, oropharynx is moist. Chest is clear to auscultation. Cardiovascular reveals a regular rate and rhythm with a 3 to 4/6 systolic murmur. Abdomen is soft and nontender with positive bowel sounds. Right lower extremity reveals no edema. Left lower extremity reveals significant edema with weeping. Regarding hypercalcemia, calcium is trending down and her hypercalcemia is not in the moderate to severe range. We'll continue to monitor at this time. Regarding borderline hypotension with bradycardia, will hold beta porfirio for now. Regarding anemia, transfuse when and if okay with Dr. Tejeda Re: Dementia with encephalopathy and agitation, agitation is much better today. She did receive 1 dose of IV Haldol last evening. DVT Prophylaxis: SCD'S (on right leg only, not able to place an SCD on the left leg secondary to lymphedema and pain) JUN CHRIS APRN March 01, 2017 10:27 ANALIA PENG MD March 01, 2017 11:32
[2017-03-01] MEDS: LORAZEPAM 0.5 MG TABLET PO SCH ×2 (10:43→20:07)
[2017-03-01] MEDS: DULOXETINE 60 MG CAPSULE PO SCH (10:43)
[2017-03-01] MEDS: ASPIRIN *EC* 81mg TABLET PO SCH (10:44)
[2017-03-01] MEDS: FAMOTIDINE 20 MG TABLET PO SCH (10:44)
[2017-03-01] MEDS: ALLOPURINOL 100 MG TABLET PO SCH (10:44)
[2017-03-01] MEDS: FUROSEMIDE 40 MG TABLET PO SCH (10:44)
[2017-03-01] MEDS: FOLIC ACID 1 MG TABLET PO SCH (10:44)
[2017-03-01] MEDS: CLOPIDOGREL 75 MG TABLET PO SCH (10:44)
[2017-03-01] MEDS: 1/2 NS 1,000 ML IV SCH ×2 (10:46→18:56)
[2017-03-01] MEDS: ACETAMINOPHEN 325 MG TABLET PO PRN ×2 (11:14→18:43)
[2017-03-01] MEDS ORDERED: DEXAMETHASONE 4mg/ml - 1ml INJECTION IV ONE (13:30)
--- NOTE | 2017-03-01 13:37 | PNPDOC ---
Subjective Date DATE: 03/01/17 TIME: 13:33 weak wf in nad. family tash's here, case d/w them. Case d/w DRs. Ramirez and Day Graham Objective Vital Signs Vital Signs 03/01/17 03/01/17 03/01/17 03/01/17 04:00 08:47 09:00 09:40 Temp 96.8 96.9 Pulse 62 61 60 Resp 18 24 B/P 116/60 103/44 Pulse Ox 95 96 88 O2 Delivery Nasal Cannula Room Air Room Air O2 Flow Rate 0.50 03/01/17 03/01/17 03/01/17 09:40 09:57 10:40 Pulse 65 59 Resp 16 B/P 100/55 Pulse Ox 99 98 O2 Delivery Nasal Cannula O2 Flow Rate 1.00 Height (Feet): 5 Height (Inches): 0.00 Weight (Kilograms): 48.700 General Comments nad Respiratory (Brief) Respiratory: FOUND: clear all flethcer, equal bilaterally Cardiovascular (Brief) Cardiac: FOUND: regular rate, regular rhythm Abdomen (Brief) Abdominal: FOUND: BS normo active x4, soft Neurologic (Brief) FOUND: cranial 2-12 intact, motor Psychiatric (Brief) FOUND: alert, normal affect Laboratory Laboratory Tests Test 03/01/17 00:36 03/01/17 03:49 03/01/17 12:52 Hemoglobin 6.5GM/DL 6.2GM/DL White Blood Count 15.0T/MM3 Red Blood Count 1.40M/MM3 Hematocrit 16.9% Mean Corpuscular Volume 120.7UM3 Mean Corpuscular Hemoglobin 44.3UUG Mean Corpuscular Hemoglobin Concent 36.7GM/DL RDW Standard Deviation 72.5FL Platelet Count 211T/MM3 Mean Platelet Volume 11.8UM3 Immature Granulocyte % (Auto) % Neutrophils (%) (Auto) % Lymphocytes (%) (Auto) % Monocytes (%) (Auto) % Eosinophils (%) (Auto) % Basophils (%) (Auto) % Absolute Immature Granulocyte (auto T/MM3 Absolute Neutrophils (auto) T/MM3 Absolute Lymphocytes (auto) T/MM3 Absolute Monocytes (auto) T/MM3 Absolute Eosinophils (auto) T/MM3 Absolute Basophils (auto) T/MM3 Neutrophils % (Manual) 80.0% Lymphocytes % (Manual) 11.0% Monocytes % (Manual) 7.0% Basophils % (Manual) 2.0% Absolute Neutrophils (Manual) 12.0T/MM3 Lymphocytes # (Manual) 1.7T/MM3 Monocytes # (Manual) 1.1T/MM3 Basophils # (Manual) 0.3T/MM3 Nucleated Red Blood Cells 1 Poikilocytosis 1+ Basophilic Stippling 1+ Anisocytosis 1+ Macrocytosis 2+ Clarke-Leota Bodies 1+ Red Cell Morphology Comment Abnormal Turbidity < 20 Sodium Level 142MEQ/L Potassium Level 3.7MEQ/L Chloride Level 102MEQ/L Carbon Dioxide Level 28MEQ/L Anion Gap 12MEQ/L Blood Urea Nitrogen 48.0MG/DL Creatinine 1.5MG/DL Glomerular Filtration Rate Calc 33 BUN/Creatinine Ratio 32RATIO Glucose Level 79MG/DL Calculated Osmolality 285MOSM/KG Calcium Level 10.5MG/DL Icterus Index < 2 Chemistry Specimen Hemolysis < 15 Lab Scanned Report BLOOD BANK [id number] Assessment & Plan Assessment Recurrent NHL AIHA Anemia hypercalcemia chronic kidney disease fatigue depression GERD S/p rituxan Plan rituxan is treatment for anemia from AIHA, Transfuse if possible. May be limited by antiboides. For hypercalcemia, consider gentle hydration, monitor CA levels, consider nephrology eval, consider aredia or zometa if needed. Pt comfy now, Observe HGB. pt elected to be a full code 03/01/2017 case d/w Dr. Ramirez and hospitalist. agree, no transfusion due to antibodies dex 20 mg IV today to assist with AIHA Monitor hgb, Ca HGB stable , ca stable Recurrent marginal zone nhl should improve with rituxan and dex case d/w tash's and pt. Code Status Do Not Resuscitate Hospital Course Summary Disclaimer The visit summary below is not to be considered part of the above Progress Note. Hospital Course Summary 02/[address] patient in outpatient observation status at [facility] under the care of Dr. Rodrigues. Start IV fluids secondary to the presyncope patient was having in drapery examiner' s office. Obtain Doppler scan of left lower extremity to exclude possibility of blood clot. Most likely we are probably dealing with underlying lymph obstruction. However, in light of progression of edema, recheck Doppler is warranted. Will continue home medications. Will consult with Dr. Ramirez for oncological evaluation of her increased lower extremity edema as well as her anorexia. Check on pending laboratory - CMP, CBC, magnesium prealbumin TSH and UA were ordered at time of presentation. However, still pending. Initiate SCDs for DVT prevention. Cardiac telemetry will be obtained. Discussed code status with patient. Daughter reports she would want " everything done" but not wish to remain on machines. The patient will therefore be FULL CODE. Patient's care will be returned to Dr. Muro at time of discharge from [facility]. 02/27 ADMIT Doing okay. Some nausea this am. No ab pain. Breathing okay-needing O2, but not hurting with breathing or having cough/congestion. Still with diffuse itching. With need for chemotherapy to address her edema, will change admission status to inpatient. Change IVF to 1/2 NS at 75cc/hr to provide hydration and correct hypernatremia. PT/OT to help functional status. Monitor blood counts - likely need transfusion. Pharmacy reviewed home meds and corrected our med rec. Recheck BMP in am due to hypernatremia. Repeat CBC due to anemia and chemo. 02/28/17 Acute on chronic anemia - h&h down to 6.[address] Peng has already ordered 2 units of blood, but due to antibodies the blood will be coming from [place]. Should arrive this afternoon. Lasix to be given in between units. Stool was negative for occult blood last night though patient reported "a few red stools" to oncology when they saw her in consultation. CAD with stent placed in 05/2016 - Cont ASA and Plavix. Platelets are normal at 238. Hypotension - SBP in 90s for much of yesterday. Improved this morning. Cont to hold metoprolol. Cont Inderal. HR upper 50s-60s. Weight has increased to 47.6 and she is nearly 3.6L fluid positive. If her BP remains stable today could probably DC IVF. CXR showed pulm fibrosis. Hypernatremia - resolved. Na 144. Not a candidate for anticoagulants for VTE ppx d/t severe anemia. DANYA FRANK March 01, 2017 13:37
[2017-03-01] MEDS ORDERED: DEXAMETHASONE IV ONE (14:30)
[2017-03-01] MEDS ORDERED: NORMAL SALINE IV ONE (14:30)
--- NOTE | 2017-03-01 17:44 | NUR ---
STATUS PT SITTING UP IN CHAIR FOR SUPPER. PT EATING QUITE WELL TONIGHT-HAS EATEN ALL OF HER SOUP AND CRACKERS AND NOW EATING A COOKIE. PT HAS VISITORS TODAY. PT UP TO CHAIR AND BEDSIDE COMMODE MULTIPLE TIMES TODAY. SITS IN CHAIR FOR 1-2 HOURS AT A TIME. HAS DENIED PAIN. IS REFUSING TO TAKE A WALK BUT WILL CONTINUE TO MONITOR THIS. PT ON CHAIR ALARM FOR PT SAFETY.
[2017-03-01] MEDS: ATORVASTATIN 20 MG TABLET PO SCH (20:07)
--- NOTE | 2017-03-01 20:48 | NUR ---
INDERAL HELD ONE TIME: PARTHCRISTY TEXTED REGARDING PT'S BLOOD PRESSURE, 120/58, HRT 68 PT'S BLOOD PRESSURE DROPS OVER NIGHT AND WAS LOW ALL DAY. HEARD BACK FROM DR. SOARES WHO SAID TO HOLD INDERAL ONE TIME. WILL HOLD.
[2017-03-02] VITALS (10 sets, daily range): BP systolic 97–119; BP diastolic 51–63; PULSE 65–76; RESP 16–20; TEMP 96.1–98.1; O2SAT 93–99
[2017-03-02] MEDS: LORAZEPAM 0.5 MG TABLET PO PRN ×2 (00:16→22:59)
[2017-03-02] MEDS: ACETAMINOPHEN 325 MG TABLET PO PRN ×2 (00:16→05:56)
--- NOTE | 2017-03-02 00:34 | NUR ---
ANXIETY & PAIN: PT STATED WANTED ANXIETY MEDICATION. I ASKED HER IF SHE WAS IN PAIN, PT SAID YES. ADMINISTERED PRN ATIVAN AND TYLENOL (SEE EMAR). WILL CONTINUE TO MONITOR.
[2017-03-02 01:10] LABS: TOTAL IRON BINDING CAPACITY 232 UG/DL (261-497)
--- NOTE | 2017-03-02 01:29 | NUR ---
ITCHING: PT SAID THAT SHE WANTED SOMETHING FOR HER ITCHING. ADMINISTERED PRN ATARAX (SEE EMAR). WILL CONTINUE TO MONITOR.
[2017-03-02 01:36] LABS: IRON 70 UG/DL (37-170); IRON % SAT (TRANSF %SAT)(CALC) 30 % (9-55)
[2017-03-02 02:37] LABS: VITAMIN B12 - BATCH 916 PG/ML (239-931)
[2017-03-02 03:23] LABS: FERRITIN 1440 NG/ML (11-264)
--- NOTE | 2017-03-02 05:28 | NUR ---
SHIFT SUMMARY: DAUGHTER WAS IN ROOM AT BEGINNING OF MY SHIFT, THEN LEFT. PT IS ALERT TO SELF ONLY, CAN GET OUT OF BED WITHOUT CALLING PT CAN BE CONFUSED AT TIMES, Q4 VITALS, FLUIDS RUNNING, SCD TO RIGHT LOWER LEG ONLY, LEFT LEG IS WEEPING/ELEVATED ON PILLOW WITH BLUE PAD UNDERNEATH, 1L 02 NC, CONTACT PRECAUTIONS FOR POST 48 HR CHEMO, UP WITH 1 ASSIST AND GATE BELT. CALL LIGHT WITHIN REACH, BED ALARM ON.
[2017-03-02 05:39] LABS: HGB - HEMOGLOBIN 6.5 GM/DL (12-16); MEAN PLATELET VOLUME 11.9 UM3 (9.4-12.4); WBC - WHITE BLOOD COUNT 5.7 T/MM3 (4.5-11.0)
[2017-03-02 05:51] LABS: ANION GAP 11 MEQ/L (5-15); BUN/CREATININE RATIO 28 RATIO (6-26); CALCIUM 10.9 MG/DL (8.4-10.2); CHLORIDE 102 MEQ/L (98-107); CO2 - CARBON DIOXIDE 28 MEQ/L (22-30); CREATININE 1.6 MG/DL (0.7-1.2); GLOMERULAR FILTRATION RATE 31; GLUCOSE 131 MG/DL (65-110); POTASSIUM 4.2 MEQ/L (3.6-5); SODIUM 141 MEQ/L (134-144)
[2017-03-02] MEDS: PANTOPRAZOLE 40 MG TABLET PO SCH ×2 (05:55→17:01)
[2017-03-02] MEDS: LEVOTHYROXINE 25 MCG TABLET PO SCH (05:55)
[2017-03-02 06:26] LABS: CORRECTED WHITE BLOOD COUNT 4.9 T/MM3 (4.5-11.0); LYMPHOCYTES # (MANUAL) 0.7 T/MM3 (1-4.8); MONOCYTES # (MANUAL) 0.1 T/MM3 (0-0.8); NUCLEATED RED BLOOD CELLS 16; TOTAL CELLS COUNTED 100 %
[2017-03-02 06:27] LABS: ANISOCYTOSIS 1+; HOWELL-JOLLY BODIES 2+; POIKILOCYTOSIS 1+; POLYCHROMASIA 1+; STOMATOCYTES 1+
[2017-03-02] MEDS: 1/2 NS 1,000 ML IV SCH (07:24)
--- NOTE | 2017-03-02 08:10 | NUR ---
LOW HCT: SENT TIGER TEXT REGARDING PT'S LOW HCT, REC'D CALL BACK FROM DR. SOARES. DR. SOARES WAS NOT CONCERNED WITH THE HCT, BUT WAS CONCERNED ABOUT PT'S HGB, INFORMED DOCTOR THAT ONOCOLOGIST, DR. FORD, WANTS TO HOLD GIVING BLOOD AT THIS TIME.
[2017-03-02] MEDS: PROPRANOLOL 20 MG TABLET PO SCH ×2 (09:00→21:54)
[2017-03-02] MEDS: ARFORMOTEROL 15 MCG/2 ML AEROSOL SCH ×2 (09:07→19:58)
[2017-03-02] MEDS: BUDESONIDE 0.25 MG/2 ML AEROSOL SCH ×2 (09:07→19:58)
[2017-03-02] MEDS: CLOPIDOGREL 75 MG TABLET PO SCH (09:23)
[2017-03-02] MEDS: FUROSEMIDE 40 MG TABLET PO SCH (09:23)
[2017-03-02] MEDS: ACETAMINOPHEN 325 MG TABLET PO SCH (09:24)
[2017-03-02] MEDS: LORAZEPAM 0.5 MG TABLET PO SCH ×2 (09:24→21:46)
[2017-03-02] MEDS: FOLIC ACID 1 MG TABLET PO SCH (09:24)
[2017-03-02] MEDS: FAMOTIDINE 20 MG TABLET PO SCH (09:24)
[2017-03-02] MEDS: DULOXETINE 60 MG CAPSULE PO SCH (09:24)
[2017-03-02] MEDS: ASPIRIN *EC* 81mg TABLET PO SCH (09:24)
[2017-03-02] MEDS: ALLOPURINOL 100 MG TABLET PO SCH (09:24)
--- NOTE | 2017-03-02 11:12 | PNPDOC ---
JUN CHRIS SKEET OPERATOR 03/02/17 1102: Subjective Date DATE: 03/02/17 TIME: 10:59 Subjective I watched Erika as her nurse helped her to transfer from her bed to chair to her back. She feels very tired and weak in general. She complains of pain all over, especially to her back and her legs. She also complains of some abdominal pain. She denies nausea. She denies feeling short of breath. Her left leg has been weeping over the weekend, but it is mild. Blood pressure has been borderline this morning, consistent with rest of her hospital stay, last checked this morning it was 97/58. Her appetite has been variable, but she ate well for breakfast. Her last bowel movement was on 02/28/17. Objective Vital Signs Vital signs Vital Signs Date Time Temp Pulse Resp B/P Pulse Ox O2 Delivery O2 Flow Rate FiO2 03/02/17 09:10 82 03/02/17 09:07 16 96 03/02/17 08:58 97/58 03/02/17 07:54 97.0 Nasal Cannula 1.00 Telemetry Rhythm: Sinus Rhythm Height (Feet): 5 Height (Inches): 0.00 Weight (Kilograms): 49.100 General General Appearance: Alert, No Acute Distress Eyes (Brief) Eyes: NOT FOUND: scleral icterus Comments Pale conjunctivae ENMT (Brief) ENMT: FOUND: mucosa moist Respiratory (Brief) Respiratory: FOUND: rales (mild) Cardiovascular (Brief) Cardiac: FOUND: regular rate, regular rhythm Abdomen (Brief) Abdominal: FOUND: BS normo active x4, soft, NOT FOUND: distended, tender Extremities (Brief) Extremity : Comments Lymphedema to left leg with mild weeping of clear serous fluid Musculoskeletal (Brief) Musculoskeletal: FOUND: extremities move equally Integumentary (Brief) Integumentary: FOUND: dry, warm, NOT FOUND: pink (pallor) Psychiatric (Brief) Psychiatric: FOUND: alert, normal affect, oriented Laboratory Laboratory Laboratory Tests 03/01/17 03:49 03/02/17 05:05 Laboratory Tests 03/01/17 00:36 03/01/17 03:49 03/02/17 05:05 Assessment & Plan Problems: (1) NHL (non-Hodgkin's lymphoma) Status: Acute Assessment & Plan: Relapsed - Chemo initiated on 02/27 (2) Edema of left lower extremity Status: Acute Assessment & Plan: Left lower - lymph obstruction secondary to relapsed NHL (3) Anemia Onset Date: 05/03/2014 Status: Acute (4) Fatigue Status: Acute Qualifiers: Encounter type: initial encounter (5) Anorexia Status: Acute (6) Generalized pruritus Status: Acute (7) Hypernatremia Status: Resolved Assessment & Plan: POA (8) CAD (coronary artery disease) Status: Chronic Qualifiers: Coronary Disease-Associated Artery/Lesion type: [place] artery [place] vs. transplanted heart: [place] heart Associated angina: without angina Qualified Codes: I25.10 - Atherosclerotic heart disease of [place] coronary artery without angina pectoris Assessment & Plan: Heart cath 05/2016 - stent to Circ 05/2016. Continue Plavix and Aspirin (9) Hypertension Status: Chronic Qualifiers: Hypertension type: essential hypertension Qualified Codes: I10 - Essential (primary) hypertension (10) Mixed hyperlipidemia Status: Chronic (11) Presence of automatic implantable cardioverter-defibrillator Status: Chronic (12) Non-rheumatic tricuspid valve insufficiency Status: Chronic (13) Nonrheumatic aortic valve stenosis Status: Chronic (14) GERD (gastroesophageal reflux disease) Status: Chronic Qualifiers: Esophagitis presence: esophagitis presence not specified Qualified Codes: K21.9 - Gastro-esophageal reflux disease without esophagitis (15) Depression Status: Chronic Qualifiers: Depression Type: unspecified Qualified Codes: F32.9 - Major depressive disorder, single episode, unspecified (16) Anxiety Status: Chronic (17) Vascular dementia Status: Chronic Qualifiers: Dementia behavioral disturbance: without behavioral disturbance Qualified Codes: F01.50 - Vascular dementia without behavioral disturbance (18) Osteoarthritis Status: Chronic Qualifiers: Osteoarthritis location: multiple joints Osteoarthritis type: primary Qualified Codes: M15.0 - Primary generalized (osteo)arthritis (19) Gait instability Status: Chronic (20) Debility Status: Acute (21) Hypercalcemia Assessment Recurrent non-Hodgkin's lymphoma Autoimmune hemolytic anemia 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 Ramirez later today. Hemoglobin is 6.5, hematocrit 12.6. White count is 5.7. Iron level was normal at 70, TIBC low at 232, ferritin was high at 1440. Vitamin B12 was 916. Renal status is holding steady with BUN of 45 and creatinine 1.6. Hypercalcemia persists, calcium is 10.9 this morning. Low blood pressure: Continue to hold beta porfirio. Heart rate has not been tachycardic. Will discuss discontinuation of IV fluids with Dr. Peng. The benefits of continuing its include blood pressure and renal support; the disadvantage is that her weight is trending up (45.2 on 02/26/17, 49.1 kg today) and she has crackles which could be secondary to pulmonary fibrosis. Code Status Do Not Resuscitate Hospital Course Summary Disclaimer The hospital course summary below is not to be considered part of the above Progress Note. Hospital Course Summary 02/[address] patient in outpatient observation status at [facility] under the care of Dr. Rodrigues. Start IV fluids secondary to the presyncope patient was having in [facility] office. Obtain Doppler scan of left lower extremity to exclude possibility of blood clot. Most likely we are probably dealing with underlying lymph obstruction. However, in light of progression of edema, recheck Doppler is warranted. Will continue home medications. Will consult with Dr. Ramirez for oncological evaluation of her increased lower extremity edema as well as her anorexia. Check on pending laboratory - CMP, CBC, magnesium prealbumin TSH and UA were ordered at time of presentation. However, still pending. Initiate SCDs for DVT prevention. Cardiac telemetry will be obtained. Discussed code status with patient. Daughter reports she would want " everything done" but not wish to remain on machines. The patient will therefore be FULL CODE. Patient's care will be returned to Dr. Muro at time of discharge from [facility]. 02/27 ADMIT Doing okay. Some nausea this am. No ab pain. Breathing okay-needing O2, but not hurting with breathing or having cough/congestion. Still with diffuse itching. With need for chemotherapy to address her edema, will change admission status to inpatient. Change IVF to 1/2 NS at 75cc/hr to provide hydration and correct hypernatremia. PT/OT to help functional status. Monitor blood counts - likely need transfusion. Pharmacy reviewed home meds and corrected our med rec. Recheck BMP in am due to hypernatremia. Repeat CBC due to anemia and chemo. 02/28/17 Acute on chronic anemia - h&h down to 6.[address]. Peng has already ordered 2 units of blood, but due to antibodies the blood will be coming from [facility]. Should arrive this afternoon. Lasix to be given in between units. Stool was negative for occult blood last night though patient reported "a few red stools" to oncology when they saw her in consultation. CAD with stent placed in 05/2016 - Cont ASA and Plavix. Platelets are normal at 238. Hypotension - SBP in 90s for much of yesterday. Improved this morning. Cont to hold metoprolol. Cont Inderal. HR upper 50s-60s. Weight has increased to 47.6 and she is nearly 3.6L fluid positive. If her BP remains stable today could probably DC IVF. CXR showed pulm fibrosis. Hypernatremia - resolved. Na 144. Not a candidate for anticoagulants for VTE ppx d/t severe anemia. 03/01/17 Acute encephalopathy/delirium, superimposed on dementia - moved to room 142 for safety; PRN dose of Haldol given last night. Acute on chronic anemia - having difficulty matching blood d/t antibodies. Dr. Tejeda aware - will round on the pt and complete transfusion orders today. Hypotension - BP marginal. Consider reducing Inderal; continue to hold metoprolol. Continue IVF, but decrease rate. Once BP stabilizes (expect improvement with blood transfusion), would like to DC IVF b/c of weight gain and being fluid positive. Renal function improving. Hypercalcemia - improved to 10.5. Dr. Tejeda - consider nephrology eval, Aredia or Zometa 03/02/17 Transfusion is on hold, will discuss further with Dr. Ramirez later today. Hemoglobin is 6.5, hematocrit 12.6. White count is 5.7. Iron level was normal at 70, TIBC low at 232, ferritin was high at 1440. Vitamin B12 was 916. Renal status is holding steady with BUN of 45 and creatinine 1.6. Hypercalcemia persists, calcium is 10.9 this morning. Low blood pressure: Continue to hold beta porfirio. Heart rate has not been tachycardic. ANALIA PENG MD 03/02/17 1521: Assessment & Plan Assessment 03/02/2017-I reviewed this chart, the patient history, and the SKEET OPERATOR's/PA's documented findings as above. We discussed and formulated the assessment and plan as above with the additions below.-Dr. Peng Patient states she's feeling okay. She denies any pain at this time. She denies shortness of breath. On exam she is alert and in no acute distress. Chest reveals some crackles in the lungs bilaterally. Cardiovascular reveals a regular rate and rhythm with a 4 /6 systolic murmur. Abdomen is soft and nontender. No edema in the right leg. Left leg has lymphedema with weeping. Lab today shows hemoglobin of 6.5. White count 5.7. Platelets are normal. BUN/creatinine are fairly stable. Calcium is still elevated at 10.9 today. We can hold IV fluids and monitor creatinine and renal function. Hopefully, Decadron will help with elevated calcium. Continue to monitor lab work. Fortunately, hemoglobin is stable. DVT Prophylaxis: SCD'S JUN CHRIS SKEET OPERATOR March 02, 2017 11:02 ANALIA PENG MD March 02, 2017 15:21
--- NOTE | 2017-03-02 12:55 | PNPDOC ---
Subjective Date DATE: 03/02/17 TIME: 12:46 Patient feeling well. No new complaints. Did well with Rituxan. Uric acid on 02/28 was 4.1. Hemoglobin slightly better this morning at 6.3. No complaints that suggest angina. SOB with exertion. Review of systems: Gen.: Positive for feeling cold, malaise, decreased appetite Eyes: Negative eye discharge, eye pain ENT: Negative for nosebleeds, mouth sores Lymph: Negative enlarged lymph nodes, no night sweats although CT scan shows increased lymph nodes Respiratory: Positive for cough, shortness of breath, negative for hemoptysis, Cardiac: Negative forchest pain, palpitations, positive for left leg swelling GI: Negative for nausea, negative for vomiting, negative for diarrhea Genitourinary: No urgency, no dysuria, no hematuria positive for UTI in December Musculoskeletal: Positive for weakness, no joint pain Neurologic: Negative for headache, negative for focal weakness, negative for numbness Psych: Positive for decreased memory, agitation, hospitalized at [facility] in December 2016 . Objective Vital Signs Vital Signs 03/02/17 03/02/17 03/02/17 03/02/17 04:00 07:54 08:58 09:00 Temp 96.4 97.0 Pulse 67 73 84 Resp 18 16 B/P 112/61 100/56 97/58 Pulse Ox 97 96 O2 Delivery Nasal Cannula Nasal Cannula O2 Flow Rate 1.00 1.00 03/02/17 03/02/17 03/02/17 09:07 09:10 12:06 Temp 96.6 Pulse 82 76 Resp 16 18 B/P 109/59 Pulse Ox 96 99 O2 Delivery Nasal Cannula O2 Flow Rate 1.00 Height (Feet): 5 Height (Inches): 0.00 Weight (Kilograms): 49.100 General Alert, No Acute Distress Eyes (Brief) Eyes: FOUND: EOMI, PERRL, NOT FOUND: scleral icterus ENMT (Brief) ENMT: FOUND: mucosa moist, NOT FOUND: lesions Neck (Brief) Neck: NOT FOUND: adenopathy Respiratory (Brief) Respiratory: FOUND: clear all fletcher, equal bilaterally Cardiovascular (Brief) Cardiac: FOUND: murmur (systolic murmur), regular rate, regular rhythm Abdomen (Brief) Abdominal: FOUND: BS normo active x4, soft, NOT FOUND: distended, tender Musculoskeletal (Brief) FOUND: other (lymphedema present of left lower extremity) Integumentary (Brief) FOUND: dry, pink Neurologic (Brief) FOUND: cranial 2-12 intact, motor Psychiatric (Brief) FOUND: alert, normal affect, NOT FOUND: oriented (thinks the year is 2016. When asked to remember 3 objects, she will remember to. She does not know who the current market president is.) Laboratory Item Value Date Time Hematocrit 12.6 % *L # 03/02/17 0505 Hemoglobin 6.5 GM/DL L 03/02/17 0505 Hematocrit 16.9 % *L 03/01/17 0349 Hemoglobin 6.2 GM/DL L 03/01/17 0349 Red Blood Count 1.06 M/MM3 L 03/02/17 0505 Red Blood Count 1.40 M/MM3 L 03/01/17 0349 Red Blood Count 1.36 M/MM3 L 02/28/17 0410 Neutrophils % (Manual) 82.0 % H 03/02/17 0505 Percent Reticulocyte Count 15.9 % H 02/28/17 0410 Ferritin 1440 NG/ML H 02/28/17 0410 Lactate Dehydrogenase 1286 U/L H 02/28/17 0410 Lactate Dehydrogenase 1417 U/L H 02/27/17 0453 Total Bilirubin 1.70 MG/DL H 02/26/171999 Ionized Calcium (Measured) 1.40 MMOL/L H 02/28/17 0410 Calcium Level 10.9 MG/DL H 02/27/17 0453 Calcium Level 10.9 MG/DL H 02/26/171999 Albumin 3.4 G/DL L 02/26/171999 Creatinine 1.8 MG/DL H 02/26/171999 Creatinine 1.7 MG/DL H 02/27/17 0453 Vitamin B12 Level 916 PG/ML 02/28/17 041 Uric Acid 4.1 MG/DL 02/28/17 041 White Blood Count 5.7 T/MM3 # 03/02/17 0505 White Blood Count 15.0 T/MM3 H # 03/01/17 0349 Immunoglobulin G 534.82 MG/DL L 02/28/17 0410 Immunoglobulin A 44.16 MG/DL L 02/28/17 0410 Immunoglobulin M 306.74 MG/DL H 02/28/17 0410 Laboratory Tests Test 03/01/17 12:52 03/02/17 05:05 Lab Scanned Report BLOOD BANK [id number] White Blood Count 5.7T/MM3 Corrected White Blood Count 4.9T/MM3 Red Blood Count 1.06M/MM3 Hemoglobin 6.5GM/DL Hematocrit 12.6% Mean Corpuscular Volume 118.9UM3 Mean Corpuscular Hemoglobin 61.3UUG Mean Corpuscular Hemoglobin Concent 51.6GM/DL RDW Standard Deviation FL Platelet Count 230T/MM3 Mean Platelet Volume 11.9UM3 Immature Granulocyte % (Auto) % Neutrophils (%) (Auto) % Lymphocytes (%) (Auto) % Monocytes (%) (Auto) % Eosinophils (%) (Auto) % Basophils (%) (Auto) % Absolute Immature Granulocyte (auto T/MM3 Absolute Neutrophils (auto) T/MM3 Absolute Lymphocytes (auto) T/MM3 Absolute Monocytes (auto) T/MM3 Absolute Eosinophils (auto) T/MM3 Absolute Basophils (auto) T/MM3 Neutrophils % (Manual) 82.0% Lymphocytes % (Manual) 15.0% Monocytes % (Manual) 2.0% Myelocytes % 1.0% Absolute Neutrophils (Manual) 4.0T/MM3 Lymphocytes # (Manual) 0.7T/MM3 Monocytes # (Manual) 0.1T/MM3 Myelocytes # 0.0T/MM3 Nucleated Red Blood Cells 16 Polychromasia 1+ Poikilocytosis 1+ Basophilic Stippling 1+ Anisocytosis 1+ Macrocytosis 2+ Stomatocytes 1+ [place] Bodies 2+ Red Cell Morphology Comment Abnormal Turbidity < 20 Sodium Level 141MEQ/L Potassium Level 4.2MEQ/L Chloride Level 102MEQ/L Carbon Dioxide Level 28MEQ/L Anion Gap 11MEQ/L Blood Urea Nitrogen 45.0MG/DL Creatinine 1.6MG/DL Glomerular Filtration Rate Calc 31 BUN/Creatinine Ratio 28RATIO Glucose Level 131MG/DL Calculated Osmolality 285MOSM/KG Calcium Level 10.9MG/DL Icterus Index < 2 Chemistry Specimen Hemolysis < 15 Medication List: Current Medications Medications (Trade) Dose Ordered Sig/Agustina Start Time Stop Time Status Last Admin Dose Admin Sodium Chloride (Normal Saline IV) 1,000 ml @ 100 mls/hr Q10H 02/26/17 17:15 02/27/17 11:36 DC 02/27/17 06:00 100 MLS/HR Acetaminophen (Tylenol Regular Strength) 325 mg Q4HR PRN 02/26/17 19:45 03/02/17 05:56 325 MG Acetaminophen (Tylenol Regular Strength) 650 mg DAILY 02/27/17 09:00 03/02/17 09:24 650 MG Allopurinol (ZYLOPRIM 300 mg) 300 mg DAILY 02/27/17 09:00 02/27/17 13:21 DC 02/27/17 08:43 300 MG Aspirin (Ecotrin) 81 mg DAILY 02/27/17 09:00 03/02/17 09:24 81 MG Atorvastatin Calcium (LIPITOR 20 mg) 20 mg HS 02/26/17 22:00 03/01/17 20:07 20 MG Budesonide (PULMICORT 0.25mg/2ml) 0.25 mg BID 02/26/17 21:00 03/01/17 21:01 0.25 MG Clopidogrel Bisulfate (Plavix) 75 mg DAILY 02/27/17 09:00 03/02/17 09:23 75 MG Duloxetine HCl (Cymbalta) 60 mg DAILY 02/27/17 09:00 03/02/17 09:24 60 MG Famotidine (Pepcid) 20 mg DAILY 02/27/17 09:00 03/02/17 09:24 20 MG Folic Acid (Folate) 1 mg DAILY 02/27/17 09:00 03/02/17 09:24 1 MG Furosemide (Lasix) 40 mg DAILY 02/27/17 09:00 03/02/17 09:23 40 MG Hydroxyzine HCl (Atarax) 25 mg QID PRN 02/26/17 19:45 03/02/17 12:03 25 MG Hyoscyamine Sulfate (Levsin Sl) 0.125 mg Q4H PRN 02/26/17 19:45 Levothyroxine Sodium (Synthroid) 25 mcg ACB 02/27/17 06:30 03/02/17 05:55 25 MCG Lorazepam (Ativan) 0.5 mg Q4HR PRN 02/26/17 19:45 03/02/17 00:16 0.5 MG Lorazepam (Ativan) 0.5 mg BID 02/26/17 21:00 03/02/17 09:24 0.5 MG Metoprolol Succinate (Toprol Xl) 25 mg DAILY 02/27/17 09:00 Future Hold 02/27/17 08:45 25 MG Pantoprazole Sodium (Protonix) 40 mg BID 02/26/17 21:00 02/27/17 05:40 DC 02/26/17 20:11 40 MG Propranolol HCl (Inderal) 60 mg BID 02/27/17 09:00 Future hold 02/28/17 20:34 60 MG Albuterol Sulfate (Proventil 2.5 Mg/3 ml) 2.5 mg Q4HR PRN 02/26/17 20:30 02/26/17 21:03 2.5 MG Pantoprazole Sodium 40 mg 40 mg ACBID 02/27/17 06:30 03/02/17 05:55 40 MG Sodium Chloride (0.45% NS) 1,000 ml @ 60 mls/hr [id number] 02/27/17 11:45 03/02/17 07:24 60 MLS/HR Allopurinol (ZYLOPRIM 100 mg) 100 mg DAILY 02/28/17 09:00 03/02/17 09:24 100 MG Diphenhydramine HCl (Benadryl) 50 mg PRN PRN 02/27/17 14:30 Hydrocortisone Sodium Succinate (Solu-Cortef) 100 mg PRN PRN 02/27/17 14:30 Methylprednisolone Sodium Succinate 125 mg 125 mg PRN PRN 02/27/17 14:30 Sodium Chloride (NS) 500 ml @ 0 mls/hr Q0M 02/28/17 08:37 Arformoterol Tartrate (Brovana) 15 mcg BID 02/28/17 21:00 03/02/17 09:07 15 MCG Haloperidol Lactate (Haldol 5 Mg/ml Inj) 0.5 mg Q4H PRN 02/28/17 18:45 02/28/17 20:33 0.5 MG Ondansetron HCl (Zofran) 4 mg Q6H PRN 03/01/17 00:45 03/01/17 00:49 4 MG Lab results: Laboratory Tests Test 03/01/17 00:36 03/01/17 03:49 03/01/17 12:52 03/02/17 05:05 Hemoglobin 6.5GM/DL 6.2GM/DL 6.5GM/DL White Blood Count 15.0T/MM3 5.7T/MM3 Red Blood Count 1.40M/MM3 1.06M/MM3 Hematocrit 16.9% 12.6% Mean Corpuscular Volume 120.7UM3 118.9UM3 Mean Corpuscular Hemoglobin 44.3UUG 61.3UUG Mean Corpuscular Hemoglobin Concent 36.7GM/DL 51.6GM/DL RDW Standard Deviation 72.5FL FL Platelet Count 211T/MM3 230T/MM3 Mean Platelet Volume 11.8UM3 11.9UM3 Immature Granulocyte % (Auto) % % Neutrophils (%) (Auto) % % Lymphocytes (%) (Auto) % % Monocytes (%) (Auto) % % Eosinophils (%) (Auto) % % Basophils (%) (Auto) % % Absolute Immature Granulocyte (auto T/MM3 T/MM3 Absolute Neutrophils (auto) T/MM3 T/MM3 Absolute Lymphocytes (auto) T/MM3 T/MM3 Absolute Monocytes (auto) T/MM3 T/MM3 Absolute Eosinophils (auto) T/MM3 T/MM3 Absolute Basophils (auto) T/MM3 T/MM3 Neutrophils % (Manual) 80.0% 82.0% Lymphocytes % (Manual) 11.0% 15.0% Monocytes % (Manual) 7.0% 2.0% Basophils % (Manual) 2.0% Absolute Neutrophils (Manual) 12.0T/MM3 4.0T/MM3 Lymphocytes # (Manual) 1.7T/MM3 0.7T/MM3 Monocytes # (Manual) 1.1T/MM3 0.1T/MM3 Basophils # (Manual) 0.3T/MM3 Nucleated Red Blood Cells 1 16 Poikilocytosis 1+ 1+ Basophilic Stippling 1+ 1+ Anisocytosis 1+ 1+ Macrocytosis 2+ 2+ [place] Bodies 1+ 2+ Red Cell Morphology Comment Abnormal Abnormal Turbidity < 20 < 20 Sodium Level 142MEQ/L 141MEQ/L Potassium Level 3.7MEQ/L 4.2MEQ/L Chloride Level 102MEQ/L 102MEQ/L Carbon Dioxide Level 28MEQ/L 28MEQ/L Anion Gap 12MEQ/L 11MEQ/L Blood Urea Nitrogen 48.0MG/DL 45.0MG/DL Creatinine 1.5MG/DL 1.6MG/DL Glomerular Filtration Rate Calc 33 31 BUN/Creatinine Ratio 32RATIO 28RATIO Glucose Level 79MG/DL 131MG/DL Calculated Osmolality 285MOSM/KG 285MOSM/KG Calcium Level 10.5MG/DL 10.9MG/DL Icterus Index < 2 < 2 Chemistry Specimen Hemolysis < 15 < 15 Lab Scanned Report BLOOD BANK [id number] Corrected White Blood Count 4.9T/MM3 Myelocytes % 1.0% Myelocytes # 0.0T/MM3 Polychromasia 1+ Stomatocytes 1+ My orders: Orders-SABINO RAMIREZ Cbc W/Auto Diff-Reflex Manual (03/03/17 04:00) Cmp - Comprehensive Metabolic (03/03/17 04:00) Magnesium (03/03/17 04:00) LDH (03/03/17 04:00) Haptoglobin - Ams (03/03/17 04:00) Assessment & Plan Assessment 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 Currently off therapy. AIHA hemoglobin 6.5. It appears to be stable. Reticulocyte count is 16%. This appears to be stabilizing in response to the Rituxan given on Thursday. We'll continue to follow without transfusion if possible Anemia hypercalcemia related to the lymphoma. Should improve with steroids chronic kidney disease, long-standing. Because she has a lambda light chain will obtain 24-hour urine fatigue depression GERD S/p rituxan 02/27/17 due again on 03/06/17 Plan rituxan is treatment for anemia from AIHA, Transfuse if possible. May be limited by antiboides. For hypercalcemia, consider gentle hydration, monitor CA levels, consider nephrology eval, consider aredia or zometa if needed. Pt comfy now, Observe HGB. pt elected to be a full code 03/01/2017 case d/w Dr. Ramirez and hospitalist. agree, no transfusion due to antibodies dex 20 mg IV today to assist with AIHA Monitor hgb, Ca HGB stable , ca stable Recurrent marginal zone nhl should improve with rituxan and dex case d/w tash's and pt. Plan/Intensity of Service Check for uric acid elevation Steroids Follow counts Supportive care Code Status Do Not Resuscitate Hospital Course Summary Disclaimer The visit summary below is not to be considered part of the above Progress Note. Hospital Course Summary 02/[address] patient in outpatient observation status at [facility] under the care of Dr. Rodrigues. Start IV fluids secondary to the presyncope patient was having in [facility] office. Obtain Doppler scan of left lower extremity to exclude possibility of blood clot. Most likely we are probably dealing with underlying lymph obstruction. However, in light of progression of edema, recheck Doppler is warranted. Will continue home medications. Will consult with Dr. Ramirez for oncological evaluation of her increased lower extremity edema as well as her anorexia. Check on pending laboratory - CMP, CBC, magnesium prealbumin TSH and UA were ordered at time of presentation. However, still pending. Initiate SCDs for DVT prevention. Cardiac telemetry will be obtained. Discussed code status with patient. Daughter reports she would want " everything done" but not wish to remain on machines. The patient will therefore be FULL CODE. Patient's care will be returned to Dr. Muro at time of discharge from [facility]. 02/27 ADMIT Doing okay. Some nausea this am. No ab pain. Breathing okay-needing O2, but not hurting with breathing or having cough/congestion. Still with diffuse itching. With need for chemotherapy to address her edema, will change admission status to inpatient. Change IVF to 1/2 NS at 75cc/hr to provide hydration and correct hypernatremia. PT/OT to help functional status. Monitor blood counts - likely need transfusion. Pharmacy reviewed home meds and corrected our med rec. Recheck BMP in am due to hypernatremia. Repeat CBC due to anemia and chemo. 02/28/17 Acute on chronic anemia - h&h down to 6.[address]. Peng has already ordered 2 units of blood, but due to antibodies the blood will be coming from [facility]. Should arrive this afternoon. Lasix to be given in between units. Stool was negative for occult blood last night though patient reported "a few red stools" to oncology when they saw her in consultation. CAD with stent placed in 05/2016 - Cont ASA and Plavix. Platelets are normal at 238. Hypotension - SBP in 90s for much of yesterday. Improved this morning. Cont to hold metoprolol. Cont Inderal. HR upper 50s-60s. Weight has increased to 47.6 and she is nearly 3.6L fluid positive. If her BP remains stable today could probably DC IVF. CXR showed pulm fibrosis. Hypernatremia - resolved. Na 144. Not a candidate for anticoagulants for VTE ppx d/t severe anemia. 03/01/17 Acute encephalopathy/delirium, superimposed on dementia - moved to room 142 for safety; PRN dose of Haldol given last night. Acute on chronic anemia - having difficulty matching blood d/t antibodies. Dr. Tejeda aware - will round on the pt and complete transfusion orders today. Hypotension - BP marginal. Consider reducing Inderal; continue to hold metoprolol. Continue IVF, but decrease rate. Once BP stabilizes (expect improvement with blood transfusion), would like to DC IVF b/c of weight gain and being fluid positive. Renal function improving. Hypercalcemia - improved to 10.5. Dr. Tejeda - consider nephrology eval, Aredia or Zometa 03/02/17 Transfusion is on hold, will discuss further with Dr. Ramirez later today. Hemoglobin is 6.5, hematocrit 12.6. White count is 5.7. Iron level was normal at 70, TIBC low at 232, ferritin was high at 1440. Vitamin B12 was 916. Renal status is holding steady with BUN of 45 and creatinine 1.6. Hypercalcemia persists, calcium is 10.9 this morning. Low blood pressure: Continue to hold beta porfirio. Heart rate has not been tachycardic. SABINO RAMIREZ March 02, 2017 12:50
[2017-03-02] MEDS ORDERED: DEXAMETHASONE 4mg/ml - 1ml INJECTION IV ONE (13:00)
[2017-03-02] MEDS ORDERED: DEXAMETHASONE IV ONE (14:00)
[2017-03-02] MEDS ORDERED: NORMAL SALINE IV ONE (14:00)
[2017-03-02 14:07] LABS: RED BLOOD COUNT 1.25 M/MM3 (4.00-5.20)
[2017-03-02 14:08] LABS: HCT - HEMATOCRIT 15.4 % (36-46); MEAN CORPUSCULAR HGB 53.6 UUG (26-34); MEAN CORPUSCULAR VOLUME 123.2 UM3 (80-100)
[2017-03-02 14:09] LABS: MEAN CORPUSCULAR HGB CONC(MCHC 43.5 GM/DL (31-37)
--- NOTE | 2017-03-02 16:49 | PNPDOC ---
PAULINE SNOW DIRECTOR SUPPLIER QUALITY 03/02/17 1519: Subjective Date DATE: 03/02/17 TIME: 15:16 Subjective Erika is laying bed in her room on Medical, is initially disoriented upon awakening, denies cardiac complaints Objective Vital Signs Vital signs Vital Signs 03/02/17 03/02/17 03/02/17 03/02/17 04:00 07:54 08:58 09:00 Temp 96.4 97.0 Pulse 67 73 84 Resp 18 16 B/P 112/61 100/56 97/58 Pulse Ox 97 96 O2 Delivery Nasal Cannula Nasal Cannula O2 Flow Rate 1.00 1.00 03/02/17 03/02/17 03/02/17 09:07 09:10 12:06 Temp 96.6 Pulse 82 76 Resp 16 18 B/P 109/59 Pulse Ox 96 99 O2 Delivery Nasal Cannula O2 Flow Rate 1.00 Telemetry Rhythm: Sinus Rhythm Height (Feet): 5 Height (Inches): 0.00 Weight (Kilograms): 49.100 General Alert, Cooperative ENMT (Brief) NOT FOUND: mucosa moist Neck (Brief) NOT FOUND: JVD, carotid bruits Respiratory (Brief) equal bilaterally, rales (bibasilar), NOT FOUND: clear all fletcher, wheezes Cardiovascular (Brief) murmur, pedal edema (left leg), regular rate, regular rhythm, NOT FOUND: click, gallop, rub Abdomen (Brief) BS normo active x4, soft, tender Integumentary (Brief) dry, pink, warm Psychiatric (Brief) alert, attentive Laboratory Laboratory Laboratory Tests Test 03/01/17 00:36 03/01/17 03:49 03/01/17 12:52 03/02/17 05:03 Hemoglobin 6.5GM/DL 6.2GM/DL White Blood Count 15.0T/MM3 Red Blood Count 1.40M/MM3 Hematocrit 16.9% Mean Corpuscular Volume 120.7UM3 Mean Corpuscular Hemoglobin 44.3UUG Mean Corpuscular Hemoglobin Concent 36.7GM/DL RDW Standard Deviation 72.5FL Platelet Count 211T/MM3 Mean Platelet Volume 11.8UM3 Immature Granulocyte % (Auto) % Neutrophils (%) (Auto) % Lymphocytes (%) (Auto) % Monocytes (%) (Auto) % Eosinophils (%) (Auto) % Basophils (%) (Auto) % Absolute Immature Granulocyte (auto T/MM3 Absolute Neutrophils (auto) T/MM3 Absolute Lymphocytes (auto) T/MM3 Absolute Monocytes (auto) T/MM3 Absolute Eosinophils (auto) T/MM3 Absolute Basophils (auto) T/MM3 Neutrophils % (Manual) 80.0% Lymphocytes % (Manual) 11.0% Monocytes % (Manual) 7.0% Basophils % (Manual) 2.0% Absolute Neutrophils (Manual) 12.0T/MM3 Lymphocytes # (Manual) 1.7T/MM3 Monocytes # (Manual) 1.1T/MM3 Basophils # (Manual) 0.3T/MM3 Nucleated Red Blood Cells 1 Poikilocytosis 1+ Basophilic Stippling 1+ Anisocytosis 1+ Macrocytosis 2+ Clarke-[place] Bodies 1+ Red Cell Morphology Comment Abnormal Turbidity < 20 Sodium Level 142MEQ/L Potassium Level 3.7MEQ/L Chloride Level 102MEQ/L Carbon Dioxide Level 28MEQ/L Anion Gap 12MEQ/L Blood Urea Nitrogen 48.0MG/DL Creatinine 1.5MG/DL Glomerular Filtration Rate Calc 33 BUN/Creatinine Ratio 32RATIO Glucose Level 79MG/DL Calculated Osmolality 285MOSM/KG Calcium Level 10.5MG/DL Icterus Index < 2 Chemistry Specimen Hemolysis < 15 Lab Scanned Report BLOOD BANK [id number] Test 03/02/17 05:05 White Blood Count 5.7T/MM3 Corrected White Blood Count 4.9T/MM3 Red Blood Count 1.25M/MM3 Hemoglobin 6.5GM/DL Hematocrit 15.4% Mean Corpuscular Volume 123.2UM3 Mean Corpuscular Hemoglobin 53.6UUG Mean Corpuscular Hemoglobin Concent 43.5GM/DL RDW Standard Deviation 71.6FL Platelet Count 230T/MM3 Mean Platelet Volume 11.9UM3 Immature Granulocyte % (Auto) % Neutrophils (%) (Auto) % Lymphocytes (%) (Auto) % Monocytes (%) (Auto) % Eosinophils (%) (Auto) % Basophils (%) (Auto) % Absolute Immature Granulocyte (auto T/MM3 Absolute Neutrophils (auto) T/MM3 Absolute Lymphocytes (auto) T/MM3 Absolute Monocytes (auto) T/MM3 Absolute Eosinophils (auto) T/MM3 Absolute Basophils (auto) T/MM3 Neutrophils % (Manual) 82.0% Lymphocytes % (Manual) 15.0% Monocytes % (Manual) 2.0% Myelocytes % 1.0% Absolute Neutrophils (Manual) 4.0T/MM3 Lymphocytes # (Manual) 0.7T/MM3 Monocytes # (Manual) 0.1T/MM3 Myelocytes # 0.0T/MM3 Nucleated Red Blood Cells 16 Polychromasia 1+ Poikilocytosis 1+ Basophilic Stippling 1+ Anisocytosis 1+ Macrocytosis 2+ Stomatocytes 1+ Clarke-[place] Bodies 2+ Red Cell Morphology Comment Abnormal Turbidity < 20 Sodium Level 141MEQ/L Potassium Level 4.2MEQ/L Chloride Level 102MEQ/L Carbon Dioxide Level 28MEQ/L Anion Gap 11MEQ/L Blood Urea Nitrogen 45.0MG/DL Creatinine 1.6MG/DL Glomerular Filtration Rate Calc 31 BUN/Creatinine Ratio 28RATIO Glucose Level 131MG/DL Calculated Osmolality 285MOSM/KG Calcium Level 10.9MG/DL Icterus Index < 2 Chemistry Specimen Hemolysis < 15 Laboratory Tests 03/02/17 05:05 Laboratory Tests 03/02/17 05:05 Medications Current Medications Sodium Chloride (Normal Saline IV) 1,000 ml @ 100 mls/hr Q10H IV Last administered on 02/27/17 06:00; Start 02/26/17 at 17:15; Stop 02/27/17 at 11:36; Status DC Allopurinol (ZYLOPRIM 300 mg) 300 mg DAILY PO Last administered on 02/27/17 08: 43; Start 02/27/17 at 09:00; Stop 02/27/17 at 13:21; Status DC Aspirin (Ecotrin) 81 mg DAILY PO Last administered on 03/02/17 09:24; Start 02/27/17 at 09:00 Atorvastatin Calcium (LIPITOR 20 mg) 20 mg HS PO Last administered on 03/01/17 20:07; Start 02/26/17 at 22:00 Budesonide (PULMICORT 0.25mg/2ml) 0.25 mg BID AEROSOL Last administered on 21:01; Start 02/26/17 at 21:00 Clopidogrel Bisulfate (Plavix) 75 mg DAILY PO Last administered on 03/02/17 09: 23; Start 02/27/17 at 09:00 Duloxetine HCl (Cymbalta) 60 mg DAILY PO Last administered on 03/02/17 09:24; Start 02/27/17 at 09:00 Famotidine (Pepcid) 20 mg DAILY PO Last administered on 03/02/17 09:24; Start 02/27/17 at 09:00 Folic Acid (Folate) 1 mg DAILY PO Last administered on 03/02/17 09:24; Start at 09:00 Hydroxyzine HCl (Atarax) 25 mg QID PRN PO ITCHING Last administered on 12:03; Start 02/26/17 at 19:45 Hyoscyamine Sulfate (Levsin Sl) 0.125 mg Q4H PRN SL SECRETIONS; Start 02/26/17 at 19:45 Levothyroxine Sodium (Synthroid) 25 mcg ACB PO Last administered on 03/02/17 05 :55; Start 02/27/17 at 06:30 Lorazepam (Ativan) 0.5 mg BID PO Last administered on 03/02/17 09:24; Start 02/26/17 at 21:00 Metoprolol Succinate (Toprol Xl) 25 mg DAILY PO Last administered on 02/27/17 08:45; Start 02/27/17 at 09:00; Status Future Hold Pantoprazole Sodium (Protonix) 40 mg BID PO Last administered on 02/26/17 20:11 ; Start 02/26/17 at 21:00; Stop 02/27/17 at 05:40; Status DC Propranolol HCl (Inderal) 60 mg BID PO Last administered on 02/28/17 20:34; Start 02/27/17 at 09:00; Status Future hold Albuterol Sulfate (Proventil 2.5 Mg/3 ml) 2.5 mg Q4HR PRN AEROSOL Last administered on 02/26/17 21:03; Start 02/26/17 at 20:30 Pantoprazole Sodium 40 mg 40 mg ACBID PO Last administered on 03/02/17 05:55; Start 02/27/17 at 06:30 Sodium Chloride (0.45% NS) 1,000 ml @ 60 mls/hr [id number] IV Last administered on 03/02/17 07:24; Start 02/27/17 at 11:45 Allopurinol 100 mg 100 mg DAILY PO Last administered on 03/02/17 09:24; Start 02/28/17 at 09:00 Rituximab/Sodium Chloride (Rituxan/NS) 540 ml @ 50 mls/hr [id number] ONCE IV Last administered on 02/27/17 14:38; Start 02/27/17 at 15:15; Stop 02/28/17 at 02: 02; Status DC Hydrocortisone Sodium Succinate (Solu-Cortef) 100 mg PRN PRN IV HYPERSENSITIVITY; Start 02/27/17 at 14:30 Methylprednisolone Sodium Succinate 125 mg 125 mg PRN PRN IV HYPERSENSITIVITY; Start 02/27/17 at 14:30 Sodium Chloride (NS) 500 ml @ 0 mls/hr Q0M IV ; Start 02/28/17 at 08:37 Furosemide (Lasix) 20 mg O ONCE IV ; Start 02/28/17 at 08:45; Stop 02/28/17 at 09 :19; Status DC Acetaminophen (Tylenol Regular Strength) 650 mg O ONCE PO ; Start 02/28/17 at 08 :45; Stop 02/28/17 at 09:19; Status DC Diphenhydramine HCl (Benadryl) 25 mg O ONCE PO ; Start 02/28/17 at 08:45; Stop 02/28/17 at 09:19; Status DC Arformoterol Tartrate (Brovana) 15 mcg BID AEROSOL Last administered on 09:07; Start 02/28/17 at 21:00 Haloperidol Lactate (Haldol 5 Mg/ml Inj) 0.5 mg Q4H PRN IV AGITATION Last administered on 02/28/17 20:33; Start 02/28/17 at 18:45 Ondansetron HCl (Zofran) 4 mg Q6H PRN IV NAUSEA &/OR VOMITING Last administered on 03/01/17 00:49; Start 03/01/17 at 00:45 Dexamethasone Sodium Phosphate (Decadron) 20 mg O ONCE IV ; Start 03/01/17 at 13 :30; Stop 03/01/17 at 14:20; Status DC Dexamethasone Sodium Phosphate 10 mg 10 mg O ONCE IV ; Start 03/02/17 at 13:00; Stop 03/02/17 at 13:01; Status Cancel Dexamethasone Sodium Phosphate/ Sodium Chloride (Decadron/NS) 52.5 ml @ 200 mls /hr O ONCE IV Last administered on 03/02/17t 14:07; Start 03/02/17 at 14:00; Stop 03/02/17 at 14:15; Status DC Assessment & Plan Problems: (1) NHL (non-Hodgkin's lymphoma) Status: Chronic Qualifiers: Non-Hodgkin lymphoma type: unspecified type Lymphoma site: unspecified region Qualified Codes: C85.90 - Non-Hodgkin lymphoma, unspecified, unspecified site Assessment & Plan: Chemotherapy given 02/27/17 (2) Anemia Onset Date: 05/03/2014 Status: Acute Qualifiers: Hemolytic anemia type: acquired, autoimmune, other Assessment & Plan: unable to transfuse due to antibodies (3) 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 Will check Q 6 months. 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 transplanted heart: [place] heart Qualified Codes: I25.10 - Atherosclerotic heart disease of [place] coronary artery without angina pectoris Assessment & Plan: Heart cath with Stent to Circ 05/2016. Continue current antiplatelet therapy of Plavix and Aspirin, routine monitoring. (5) Non-rheumatic tricuspid valve insufficiency Status: Chronic Assessment & Plan: routine monitoring (6) Essential hypertension Status: Chronic Assessment & Plan: Well controlled on medical therapy, continue current therapy of Lasix and Propranolol. hold Metoprolol for now (7) Mixed hyperlipidemia Status: Chronic Assessment & Plan: Continue Atorvastatin (8) Chronic kidney disease, unspecified Status: Chronic Assessment & Plan: Continue Plavix and Aspirin, continue Lasix, and Propranolol and hold Metoprolol. Continue Atorvastatin. (9) H/O mitral valve repair Status: Chronic (10) H/O aortic valve replacement with porcine valve Status: Chronic Plan/Intensity of Service Hypotensive: Continue current therapy of Lasix and Propranolol. hold Metoprolol for now, may need to adjust propranolol Continue current antiplatelet therapy of Plavix and Aspirin, [employer] Bi-V/P checked in office 11/2016. Will check Q 6 months. Last SANDRA showed EF of 55% in 01/2016 JULIA SHEA MD 03/09/17 1157: Assessment & Plan Plan/Intensity of Service After examining the patient I agree with the above assessment. I am involved in the formulation of the patient's plan of care. PAULINE SNOW APRN March 02, 2017 15:19 JULIA SHEA MD March 09, 2017 11:57
--- NOTE | 2017-03-02 18:46 | NUR ---
SHIFT SUMMARY PT ALERT, ORIENTED TO PERSON AND OCCASIONALLY PLACE. PT ON 1L/NC, DENIES SOA. PT ON CHRONIC O2 AT HOME. PT RATES PAIN 5/10, DENIES NEED FOR PAIN MEDICATION AT THIS TIME. UP WITH ASSIST X1, GAIT BELT, PIVOT TRANSFER TO [facility]. UP IN RECLINER FOR MEALS. IVL RIGHT UPPER ARM AND LEFT WRIST PATENT. ADEQUATE URINE OUTPUT, INCONTINENT AT TIMES. CHAIR ALARM ON, CALL LIGHT WITHIN REACH.
[2017-03-02] MEDS: ATORVASTATIN 20 MG TABLET PO SCH (21:46)
[2017-03-02] MEDS: DiphenhydrAMINE 50 MG/ML INJECTION IV PRN (21:47)
[2017-03-02] MEDS ORDERED: MORPHINE SULFATE 2 MG SYRINGE IV PRN (23:00)
[2017-03-02] MEDS ORDERED: OXYCODONE/APAP 5mg/325mg TABLET PO PRN (23:00)
--- NOTE | 2017-03-02 23:24 | NUR ---
Pt is c/o itching and burning all over her body. Atarax and benadryl given. Pt is becoming more and more upset. States she doesn't want to take anything that's going to kill her. Pt reassured that RN is not trying to kill her. Pt given a PRN ativan.
[2017-03-03] VITALS (10 sets, daily range): BP systolic 116–136; BP diastolic 54–69; PULSE 60–78; RESP 16–20; TEMP 96.6–98.2; O2SAT 95–100
--- NOTE | 2017-03-03 05:41 | NUR ---
Pt slept at around 0200. Did not c/o itching and burning when she was up to the commode.
[2017-03-03 05:44] LABS: ALBUMIN 2.9 G/DL (3.5-5.0); ALBUMIN/GLOBULIN RATIO 1.3 RATIO (1.1-2.2); ALKALINE PHOSPHATASE 57 U/L (38-126); ALT (SGPT) 24 U/L (9-52); ANION GAP 11 MEQ/L (5-15); AST (SGOT) 23 U/L (14-36); BUN/CREATININE RATIO 33 RATIO (6-26); CALCIUM 11.1 MG/DL (8.4-10.2); CHLORIDE 101 MEQ/L (98-107); CO2 - CARBON DIOXIDE 29 MEQ/L (22-30); CREATININE 1.5 MG/DL (0.7-1.2); GLOMERULAR FILTRATION RATE 33; GLUCOSE 138 MG/DL (65-110); LDH 896 U/L (313-618); MAGNESIUM 1.7 MG/DL (1.6-2.3); POTASSIUM 3.9 MEQ/L (3.6-5); SODIUM 141 MEQ/L (134-144); TOTAL PROTEIN 5.1 G/DL (6.3-8.2); URIC ACID 4.7 MG/DL (2.5-7.5)
[2017-03-03 05:55] LABS: HCT - HEMATOCRIT 18.3 % (36-46); HGB - HEMOGLOBIN 6.5 GM/DL (12-16); MEAN CORPUSCULAR HGB 41.9 UUG (26-34); MEAN CORPUSCULAR HGB CONC(MCHC 35.5 GM/DL (31-37); MEAN CORPUSCULAR VOLUME 118.1 UM3 (80-100); MEAN PLATELET VOLUME 11.6 UM3 (9.4-12.4); RED BLOOD COUNT 1.55 M/MM3 (4.00-5.20); WBC - WHITE BLOOD COUNT 9.2 T/MM3 (4.5-11.0)
[2017-03-03 06:17] LABS: LYMPHOCYTES # (MANUAL) 1.8 T/MM3 (1-4.8); MONOCYTES # (MANUAL) 0.1 T/MM3 (0-0.8); NEUTROPHILS #(MANUAL)-ABSOLUTE 7.3 T/MM3 (1.8-7.7); NUCLEATED RED BLOOD CELLS 3; TOTAL CELLS COUNTED 100 %
[2017-03-03 06:18] LABS: ANISOCYTOSIS 1+; POIKILOCYTOSIS 1+
[2017-03-03] MEDS: LEVOTHYROXINE 25 MCG TABLET PO SCH (06:19)
[2017-03-03] MEDS: PANTOPRAZOLE 40 MG TABLET PO SCH ×2 (06:19→16:07)
--- NOTE | 2017-03-03 09:01 | NUR ---
CM CM IN TO VISIT PT. PT STILL PLANS TO DC TO THE [facility], THERE ARE NO OTHER DC NEEDS AND SHE IS AWARE TO CONTACT CM SHOULD NEEDS ARISE. CM CALLED PHIL AT THE [facility]S CONDITION UPDATE GIVEN, PHIL WILL CALL LATER FOR FURTHER UPDATE. PT AND CAREGIVER AWARE TO CALL CM SHOULD NEEDS ARISE.
--- NOTE | 2017-03-03 09:10 | PNPDOC ---
PAULINE SNOW BUSINESS ARCHITECT 03/03/17 0909: Subjective Date DATE: 03/03/17 TIME: 09:06 Subjective Erika is sitting up in the chair, she wears her nasal cannula on her forehead. She asks about discharge. She denies cardiac complaints Objective Vital Signs Vital signs Vital Signs 03/02/17 03/02/17 03/03/17 03/03/17 22:00 23:10 00:06 04:00 Temp 97.3 98.2 Pulse 66 65 78 Resp 20 20 20 B/P 119/60 136/69 Pulse Ox 98 97 O2 Delivery Nasal Cannula Nasal Cannula Nasal Cannula O2 Flow Rate 1.00 1.00 1.00 03/03/17 03/03/17 03/03/17 06:26 07:55 08:07 Temp 98.2 97.6 Pulse 78 72 74 Resp 20 16 16 B/P 136/69 119/54 Pulse Ox 97 97 O2 Delivery Nasal Cannula Nasal Cannula O2 Flow Rate 1.00 1.00 Telemetry Rhythm: Sinus Rhythm Height (Feet): 5 Height (Inches): 0.00 Weight (Kilograms): 48.000 General Alert, Cooperative, No Acute Distress ENMT (Brief) mucosa moist Neck (Brief) NOT FOUND: JVD, carotid bruits Respiratory (Brief) equal bilaterally, rales (bibasilar), NOT FOUND: clear all fletcher, wheezes Cardiovascular (Brief) murmur, pedal edema (left leg), regular rate, regular rhythm, NOT FOUND: click, gallop, rub Abdomen (Brief) BS normo active x4, soft, NOT FOUND: tender Integumentary (Brief) dry, pink, warm Psychiatric (Brief) alert, attentive Laboratory Laboratory Laboratory Tests Test 03/01/17 12:52 03/02/17 05:03 03/02/17 05:05 03/03/17 04:32 Lab Scanned Report BLOOD BANK [id number] Uric Acid 4.4MG/DL 4.7MG/DL White Blood Count 5.7T/MM3 9.2T/MM3 Corrected White Blood Count 4.9T/MM3 Red Blood Count 1.25M/MM3 1.55M/MM3 Hemoglobin 6.5GM/DL 6.5GM/DL Hematocrit 15.4% 18.3% Mean Corpuscular Volume 123.2UM3 118.1UM3 Mean Corpuscular Hemoglobin 53.6UUG 41.9UUG Mean Corpuscular Hemoglobin Concent 43.5GM/DL 35.5GM/DL RDW Standard Deviation 71.6FL 70.9FL Platelet Count 230T/MM3 200T/MM3 Mean Platelet Volume 11.9UM3 11.6UM3 Immature Granulocyte % (Auto) % % Neutrophils (%) (Auto) % % Lymphocytes (%) (Auto) % % Monocytes (%) (Auto) % % Eosinophils (%) (Auto) % % Basophils (%) (Auto) % % Absolute Immature Granulocyte (auto T/MM3 T/MM3 Absolute Neutrophils (auto) T/MM3 T/MM3 Absolute Lymphocytes (auto) T/MM3 T/MM3 Absolute Monocytes (auto) T/MM3 T/MM3 Absolute Eosinophils (auto) T/MM3 T/MM3 Absolute Basophils (auto) T/MM3 T/MM3 Neutrophils % (Manual) 82.0% 79.0% Lymphocytes % (Manual) 15.0% 20.0% Monocytes % (Manual) 2.0% 1.0% Myelocytes % 1.0% Absolute Neutrophils (Manual) 4.0T/MM3 7.3T/MM3 Lymphocytes # (Manual) 0.7T/MM3 1.8T/MM3 Monocytes # (Manual) 0.1T/MM3 0.1T/MM3 Myelocytes # 0.0T/MM3 Nucleated Red Blood Cells 16 3 Polychromasia 1+ Poikilocytosis 1+ 1+ Basophilic Stippling 1+ Anisocytosis 1+ 1+ Macrocytosis 2+ Stomatocytes 1+ Clarke-[place] Bodies 2+ Red Cell Morphology Comment Abnormal Abnormal Turbidity < 20 < 20 Sodium Level 141MEQ/L 141MEQ/L Potassium Level 4.2MEQ/L 3.9MEQ/L Chloride Level 102MEQ/L 101MEQ/L Carbon Dioxide Level 28MEQ/L 29MEQ/L Anion Gap 11MEQ/L 11MEQ/L Blood Urea Nitrogen 45.0MG/DL 50.0MG/DL Creatinine 1.6MG/DL 1.5MG/DL Glomerular Filtration Rate Calc 31 33 BUN/Creatinine Ratio 28RATIO 33RATIO Glucose Level 131MG/DL 138MG/DL Calculated Osmolality 285MOSM/KG 286MOSM/KG Calcium Level 10.9MG/DL 11.1MG/DL Icterus Index < 2 < 2 Chemistry Specimen Hemolysis < 15 < 15 Magnesium Level 1.7MG/DL Total Bilirubin 0.70MG/DL Aspartate Amino Transf (AST/SGOT) 23U/L Alanine Aminotransferase (ALT/SGPT) 24U/L Alkaline Phosphatase 57U/L Lactate Dehydrogenase 896U/L Total Protein 5.1G/DL Albumin 2.9G/DL Globulin 2.2G/DL Albumin/Globulin Ratio 1.3RATIO Laboratory Tests 03/03/17 04:32 Laboratory Tests 03/03/17 04:32 Medications Current Medications Sodium Chloride (Normal Saline IV) 1,000 ml @ 100 mls/hr Q10H IV Last administered on 02/27/17 06:00; Start 02/26/17 at 17:15; Stop 02/27/17 at 11:36; Status DC Allopurinol (ZYLOPRIM 300 mg) 300 mg DAILY PO Last administered on 02/27/17 08: 43; Start 02/27/17 at 09:00; Stop 02/27/17 at 13:21; Status DC Aspirin (Ecotrin) 81 mg DAILY PO Last administered on 03/02/17 09:24; Start 02/27/17 at 09:00 Atorvastatin Calcium (LIPITOR 20 mg) 20 mg HS PO Last administered on 03/02/17 21:46; Start 02/26/17 at 22:00 Budesonide (PULMICORT 0.25mg/2ml) 0.25 mg BID AEROSOL Last administered on 19:58; Start 02/26/17 at 21:00 Clopidogrel Bisulfate (Plavix) 75 mg DAILY PO Last administered on 03/02/17 09: 23; Start 02/27/17 at 09:00 Duloxetine HCl (Cymbalta) 60 mg DAILY PO Last administered on 03/02/17 09:24; Start 02/27/17 at 09:00 Famotidine (Pepcid) 20 mg DAILY PO Last administered on 03/02/17 09:24; Start 02/27/17 at 09:00 Folic Acid (Folate) 1 mg DAILY PO Last administered on 03/02/17 09:24; Start at 09:00 Hydroxyzine HCl (Atarax) 25 mg QID PRN PO ITCHING Last administered on 20:31; Start 02/26/17 at 19:45 Hyoscyamine Sulfate (Levsin Sl) 0.125 mg Q4H PRN SL SECRETIONS; Start 02/26/17 at 19:45 Levothyroxine Sodium (Synthroid) 25 mcg ACB PO Last administered on 03/03/17 06 :19; Start 02/27/17 at 06:30 Lorazepam (Ativan) 0.5 mg BID PO Last administered on 03/02/17 21:46; Start 02/26/17 at 21:00 Metoprolol Succinate (Toprol Xl) 25 mg DAILY PO Last administered on 02/27/17 08:45; Start 02/27/17 at 09:00; Status Future Hold Pantoprazole Sodium (Protonix) 40 mg BID PO Last administered on 02/26/17 20:11 ; Start 02/26/17 at 21:00; Stop 02/27/17 at 05:40; Status DC Propranolol HCl (Inderal) 60 mg BID PO Last administered on 03/02/17 21:54; Start 02/27/17 at 09:00; Status Future hold Albuterol Sulfate (Proventil 2.5 Mg/3 ml) 2.5 mg Q4HR PRN AEROSOL Last administered on 02/26/17 21:03; Start 02/26/17 at 20:30 Pantoprazole Sodium 40 mg 40 mg ACBID PO Last administered on 03/03/17 06:19; Start 02/27/17 at 06:30 Sodium Chloride (0.45% NS) 1,000 ml @ 60 mls/hr [id number] IV Last administered on 03/02/17 07:24; Start 02/27/17 at 11:45; Status Future Hold Allopurinol 100 mg 100 mg DAILY PO Last administered on 03/02/17 09:24; Start 02/28/17 at 09:00 Rituximab/Sodium Chloride (Rituxan/NS) 540 ml @ 50 mls/hr [id number] ONCE IV Last administered on 02/27/17 14:38; Start 02/27/17 at 15:15; Stop 02/28/17 at 02: 02; Status DC Hydrocortisone Sodium Succinate (Solu-Cortef) 100 mg PRN PRN IV HYPERSENSITIVITY; Start 02/27/17 at 14:30 Methylprednisolone Sodium Succinate 125 mg 125 mg PRN PRN IV HYPERSENSITIVITY; Start 02/27/17 at 14:30 Sodium Chloride (NS) 500 ml @ 0 mls/hr Q0M IV ; Start 02/28/17 at 08:37 Furosemide (Lasix) 20 mg O ONCE IV ; Start 02/28/17 at 08:45; Stop 02/28/17 at 09 :19; Status DC Acetaminophen (Tylenol Regular Strength) 650 mg O ONCE PO ; Start 02/28/17 at 08 :45; Stop 02/28/17 at 09:19; Status DC Diphenhydramine HCl (Benadryl) 25 mg O ONCE PO ; Start 02/28/17 at 08:45; Stop 02/28/17 at 09:19; Status DC Arformoterol Tartrate (Brovana) 15 mcg BID AEROSOL Last administered on 19:58; Start 02/28/17 at 21:00 Haloperidol Lactate (Haldol 5 Mg/ml Inj) 0.5 mg Q4H PRN IV AGITATION Last administered on 02/28/17 20:33; Start 02/28/17 at 18:45 Ondansetron HCl (Zofran) 4 mg Q6H PRN IV NAUSEA &/OR VOMITING Last administered on 03/01/17 00:49; Start 03/01/17 at 00:45 Dexamethasone Sodium Phosphate (Decadron) 20 mg O ONCE IV ; Start 03/01/17 at 13 :30; Stop 03/01/17 at 14:20; Status DC Dexamethasone Sodium Phosphate 10 mg 10 mg O ONCE IV ; Start 03/02/17 at 13:00; Stop 03/02/17 at 13:01; Status Cancel Dexamethasone Sodium Phosphate/ Sodium Chloride (Decadron/NS) 52.5 ml @ 200 mls /hr O ONCE IV Last administered on 03/02/17 14:07; Start 03/02/17 at 14:00; Stop 03/02/17 at 14:15; Status DC Oxycodone/ Acetaminophen (Percocet 5/325) 1 tab Q4H PRN PO ; Start 03/02/17 at 23:00; Stop 03/02/17 at 23:10; Status DC Morphine Sulfate (Morphine) 2 mg Q4H PRN IV PAIN; Start 03/02/17 at 23:00; Stop 03/02/17 at 23:10; Status DC Assessment & Plan Problems: (1) NHL (non-Hodgkin's lymphoma) Status: Chronic Qualifiers: Non-Hodgkin lymphoma type: unspecified type Lymphoma site: unspecified region Qualified Codes: C85.90 - Non-Hodgkin lymphoma, unspecified, unspecified site Assessment & Plan: Received Chemotherapy on 02/27/17 (2) Anemia Onset Date: 05/03/2014 Status: Acute Qualifiers: Hemolytic anemia type: acquired, autoimmune, other Assessment & Plan: Unable to transfuse due to antibodies (3) 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 Will check Q 6 months. 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 transplanted heart: [place] heart Qualified Codes: I25.10 - Atherosclerotic heart disease of [place] coronary artery without angina pectoris Assessment & Plan: Heart cath with Stent to Circ 05/2016. Continue current antiplatelet therapy of Plavix and Aspirin, routine monitoring. (5) Non-rheumatic tricuspid valve insufficiency Status: Chronic Assessment & Plan: routine monitoring (6) Essential hypertension Status: Chronic Assessment & Plan: Well controlled on medical therapy, continue current therapy of Lasix and Propranolol. hold Metoprolol for now (7) Mixed hyperlipidemia Status: Chronic Assessment & Plan: Continue Atorvastatin (8) Chronic kidney disease, unspecified Status: Chronic Assessment & Plan: Continue Plavix and Aspirin, continue Lasix, and Propranolol and hold Metoprolol. Continue Atorvastatin. (9) H/O mitral valve repair Status: Chronic (10) H/O aortic valve replacement with porcine valve Status: Chronic Plan/Intensity of Service Hypotensive: Continue current therapy of Lasix and Propranolol. hold Metoprolol for now, may need to adjust propranolol Continue current antiplatelet therapy of Plavix and Aspirin, [employer] Bi-V/P checked in office 11/2016. Will check Q 6 months. Last SANDRA showed EF of 55% in 01/2016. 03/03/17 BP improved, no cardiac complaints, okay to discharge from Cardiology standpoint Thank you for allowing us to participate in the care of this patient JULIA SHEA MD 03/09/17 1159: Assessment & Plan Plan/Intensity of Service After examining the patient I agree with the above assessment. I am involved in the formulation of the patient's plan of care. PAULINE SNOW APRN March 03, 2017 09:09 JULIA SHEA MD March 09, 2017 11:59
[2017-03-03] MEDS: DULOXETINE 60 MG CAPSULE PO SCH (09:29)
[2017-03-03] MEDS: LORAZEPAM 0.5 MG TABLET PO SCH ×2 (09:29→20:29)
[2017-03-03] MEDS: CLOPIDOGREL 75 MG TABLET PO SCH (09:29)
[2017-03-03] MEDS: FAMOTIDINE 20 MG TABLET PO SCH (09:29)
[2017-03-03] MEDS: FOLIC ACID 1 MG TABLET PO SCH (09:29)
[2017-03-03] MEDS: ALLOPURINOL 100 MG TABLET PO SCH (09:29)
[2017-03-03] MEDS: FUROSEMIDE 40 MG TABLET PO SCH (09:29)
[2017-03-03] MEDS: ACETAMINOPHEN 325 MG TABLET PO SCH (09:30)
[2017-03-03] MEDS: ASPIRIN *EC* 81mg TABLET PO SCH (09:30)
[2017-03-03] MEDS: PROPRANOLOL 20 MG TABLET PO SCH ×2 (09:31→20:27)
[2017-03-03] MEDS: ARFORMOTEROL 15 MCG/2 ML AEROSOL SCH ×2 (10:28→21:39)
[2017-03-03] MEDS: BUDESONIDE 0.25 MG/2 ML AEROSOL SCH ×2 (10:29→21:39)
[2017-03-03] MEDS: DiphenhydrAMINE 50 MG/ML INJECTION IV PRN ×2 (11:43→21:55)
[2017-03-03] MEDS ORDERED: DEXAMETHASONE 4mg/ml - 1ml INJECTION IV ONE (12:15)
[2017-03-03] MEDS: ACETAMINOPHEN 325 MG TABLET PO PRN ×2 (12:59→20:29)
[2017-03-03] MEDS ORDERED: NORMAL SALINE IV ONE (13:00)
[2017-03-03] MEDS ORDERED: DEXAMETHASONE IV ONE (13:00)
--- NOTE | 2017-03-03 14:02 | PNPDOC ---
TEZ PHELAN PARACHUTE TAPER 03/03/17 1401: Subjective Date DATE: 03/03/17 TIME: 13:58 Alone in room, sitting in chair at time of intake this morning. Alert and oriented 2 pleasant affect. Answers questions appropriately. Denies fever or chills. No shortness of air, no chest pain. Eating well. Taking fluids normally. Continues to have intermittent pain left leg, feels swelling "a little better ." General: No fever, no night sweats Eyes: No redness, no pain, no diplopia ENT: No mouth sores, no trouble swallowing Cardiac: No chest pain no palpitations Pulmonary: + cough, no shortness of breath, no wheezing Abdomen: No pain, no nausea vomiting, no diarrhea or constipation : No urgency, frequency, dysuria, or hematuria Musculoskeletal: + left leg pain. Neurological: No headaches, no focal weakness Skin: No rash, no sores Psychiatric: No anxiety, no depression Objective Vital Signs Vital Signs 03/03/17 03/03/17 03/03/17 03/03/17 04:00 06:26 07:55 08:07 Temp 98.2 98.2 97.6 Pulse 78 78 72 74 Resp 20 20 16 16 B/P 136/69 136/69 119/54 Pulse Ox 97 97 97 O2 Delivery Nasal Cannula Nasal Cannula Nasal Cannula O2 Flow Rate 1.00 1.00 1.00 03/03/17 03/03/17 03/03/17 03/03/17 10:30 10:30 10:30 10:30 Pulse 62 60 Resp 18 Pulse Ox 99 O2 Delivery Nasal Cannula O2 Flow Rate 1.00 03/03/17 11:33 Temp 97.6 Pulse 60 Resp 16 B/P 118/63 Pulse Ox 99 O2 Delivery Nasal Cannula O2 Flow Rate 2.00 Height (Feet): 5 Height (Inches): 0.00 Weight (Kilograms): 48.000 General Alert, Orientated x 2, Cooperative Eyes (Brief) Eyes: FOUND: EOMI, PERRL, NOT FOUND: scleral icterus ENMT (Brief) ENMT: FOUND: mucosa moist, NOT FOUND: lesions Neck (Brief) Neck: NOT FOUND: adenopathy Respiratory (Brief) Respiratory: FOUND: clear all fletcher, equal bilaterally Cardiovascular (Brief) Cardiac: FOUND: murmur (systolic murmur), regular rate, regular rhythm Abdomen (Brief) Abdominal: FOUND: BS normo active x4, soft, NOT FOUND: distended, tender Lymphatic (Brief) FOUND: lymphedema (left leg) Musculoskeletal (Brief) FOUND: tenderness (left leg.), NOT FOUND: loss of motion Integumentary (Brief) FOUND: dry, pink Neurologic (Brief) FOUND: cranial 2-12 intact, motor Psychiatric (Brief) FOUND: alert, attentive, normal affect, oriented Laboratory Laboratory Tests Test 03/03/17 04:32 White Blood Count 9.2T/MM3 Red Blood Count 1.55M/MM3 Hemoglobin 6.5GM/DL Hematocrit 18.3% Mean Corpuscular Volume 118.1UM3 Mean Corpuscular Hemoglobin 41.9UUG Mean Corpuscular Hemoglobin Concent 35.5GM/DL RDW Standard Deviation 70.9FL Platelet Count 200T/MM3 Mean Platelet Volume 11.6UM3 Immature Granulocyte % (Auto) % Neutrophils (%) (Auto) % Lymphocytes (%) (Auto) % Monocytes (%) (Auto) % Eosinophils (%) (Auto) % Basophils (%) (Auto) % Absolute Immature Granulocyte (auto T/MM3 Absolute Neutrophils (auto) T/MM3 Absolute Lymphocytes (auto) T/MM3 Absolute Monocytes (auto) T/MM3 Absolute Eosinophils (auto) T/MM3 Absolute Basophils (auto) T/MM3 Neutrophils % (Manual) 79.0% Lymphocytes % (Manual) 20.0% Monocytes % (Manual) 1.0% Absolute Neutrophils (Manual) 7.3T/MM3 Lymphocytes # (Manual) 1.8T/MM3 Monocytes # (Manual) 0.1T/MM3 Nucleated Red Blood Cells 3 Poikilocytosis 1+ Anisocytosis 1+ Red Cell Morphology Comment Abnormal Haptoglobin Pending Turbidity < 20 Sodium Level 141MEQ/L Potassium Level 3.9MEQ/L Chloride Level 101MEQ/L Carbon Dioxide Level 29MEQ/L Anion Gap 11MEQ/L Blood Urea Nitrogen 50.0MG/DL Creatinine 1.5MG/DL Glomerular Filtration Rate Calc 33 BUN/Creatinine Ratio 33RATIO Glucose Level 138MG/DL Calculated Osmolality 286MOSM/KG Uric Acid 4.7MG/DL Calcium Level 11.1MG/DL Magnesium Level 1.7MG/DL Total Bilirubin 0.70MG/DL Icterus Index < 2 Aspartate Amino Transf (AST/SGOT) 23U/L Alanine Aminotransferase (ALT/SGPT) 24U/L Alkaline Phosphatase 57U/L Lactate Dehydrogenase 896U/L Total Protein 5.1G/DL Albumin 2.9G/DL Globulin 2.2G/DL Albumin/Globulin Ratio 1.3RATIO Chemistry Specimen Hemolysis < 15 Assessment & Plan Assessment 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 Will give Rituxan weekly X 4-1st dose given as in -patient 02/27/17. AIHA hemoglobin 6.5. It appears to be stable. Reticulocyte count is 16%. This appears to be stabilizing in response to the Rituxan given on Thursday. We'll continue to follow without transfusion if possible. HGB today 6.5, HCT 18.3. hypercalcemia related to the lymphoma. Should improve with steroids. Ca++ yesterday 10.9, Ca++ today 11.1. Continue IV fluids, steroids, and follow closely. chronic kidney disease, long-standing. Because she has a lambda light chain will obtain 24-hour urine fatigue depression GERD Plan/Intensity of Service Check for uric acid elevation Steroids Follow counts Supportive care Code Status Do Not Resuscitate Hospital Course Summary Disclaimer The visit summary below is not to be considered part of the above Progress Note. Hospital Course Summary 02/[address] patient in outpatient observation status at [facility] under the care of Dr. Rodrigues. Start IV fluids secondary to the presyncope patient was having in ict project manager' s office. Obtain Doppler scan of left lower extremity to exclude possibility of blood clot. Most likely we are probably dealing with underlying lymph obstruction. However, in light of progression of edema, recheck Doppler is warranted. Will continue home medications. Will consult with Dr. Ramirez for oncological evaluation of her increased lower extremity edema as well as her anorexia. Check on pending laboratory - CMP, CBC, magnesium prealbumin TSH and UA were ordered at time of presentation. However, still pending. Initiate SCDs for DVT prevention. Cardiac telemetry will be obtained. Discussed code status with patient. Daughter reports she would want " everything done" but not wish to remain on machines. The patient will therefore be FULL CODE. Patient's care will be returned to Dr. Muro at time of discharge from [facility]. 02/27 ADMIT Doing okay. Some nausea this am. No ab pain. Breathing okay-needing O2, but not hurting with breathing or having cough/congestion. Still with diffuse itching. With need for chemotherapy to address her edema, will change admission status to inpatient. Change IVF to 1/2 NS at 75cc/hr to provide hydration and correct hypernatremia. PT/OT to help functional status. Monitor blood counts - likely need transfusion. Pharmacy reviewed home meds and corrected our med rec. Recheck BMP in am due to hypernatremia. Repeat CBC due to anemia and chemo. 02/28/17 Acute on chronic anemia - h&h down to 6.[address] Peng has already ordered 2 units of blood, but due to antibodies the blood will be coming from [place]. Should arrive this afternoon. Lasix to be given in between units. Stool was negative for occult blood last night though patient reported "a few red stools" to oncology when they saw her in consultation. CAD with stent placed in 05/2016 - Cont ASA and Plavix. Platelets are normal at 238. Hypotension - SBP in 90s for much of yesterday. Improved this morning. Cont to hold metoprolol. Cont Inderal. HR upper 50s-60s. Weight has increased to 47.6 and she is nearly 3.6L fluid positive. If her BP remains stable today could probably DC IVF. CXR showed pulm fibrosis. Hypernatremia - resolved. Na 144. Not a candidate for anticoagulants for VTE ppx d/t severe anemia. 03/01/17 Acute encephalopathy/delirium, superimposed on dementia - moved to room 142 for safety; PRN dose of Haldol given last night. Acute on chronic anemia - having difficulty matching blood d/t antibodies. Dr. Tejeda aware - will round on the pt and complete transfusion orders today. Hypotension - BP marginal. Consider reducing Inderal; continue to hold metoprolol. Continue IVF, but decrease rate. Once BP stabilizes (expect improvement with blood transfusion), would like to DC IVF b/c of weight gain and being fluid positive. Renal function improving. Hypercalcemia - improved to 10.5. Dr. Tejeda - consider nephrology eval, Aredia or Zometa 03/02/17 Transfusion is on hold, will discuss further with Dr. Ramirez later today. Hemoglobin is 6.5, hematocrit 12.6. White count is 5.7. Iron level was normal at 70, TIBC low at 232, ferritin was high at 1440. Vitamin B12 was 916. Renal status is holding steady with BUN of 45 and creatinine 1.6. Hypercalcemia persists, calcium is 10.9 this morning. Low blood pressure: Continue to hold beta porfirio. Heart rate has not been tachycardic. TASH MIN MD 03/04/17 0822: Assessment & Plan Plan/Intensity of Service I have seen and examined the patient. I formulated the plan of care for the patient. We will keep monitoring blood counts. May consider IVIG infusion. TEZ PHELAN APRN March 03, 2017 14:01 TASH MIN MD March 04, 2017 08:22 or Zometa 03/02/17 Transfusion is on hold, will discuss further with Dr. Ramirez later today. Hemoglobin is 6.5, hematocrit 12.6. White count is 5.7. Iron level was normal at 70, TIBC low at 232, ferritin was high at 1440. Vitamin B12 was 916. Renal status is holding steady with BUN of 45 and creatinine 1.6. Hypercalcemia persists, calcium is 10.9 this morning. Low blood pressure: Continue to hold beta porfirio. Heart rate has not been tachycardic. TASH MIN MD 03/04/17 0822: Assessment & Plan Plan/Intensity of Service I have seen and examined the patient. I formulated the plan of care for the patient. We will keep monitoring blood counts. May consider IVIG infusion. TEZ PHELAN APRN March 03, 2017 14:01 TASH MIN MD March 04, 2017 08:22
--- NOTE | 2017-03-03 15:20 | PNPDOC ---
Subjective Date DATE: 03/03/17 TIME: 15:08 Subjective The patient was seen in her room today accompanied by one of her daughters. The patient states that she doesn't feel very well. She complains of some low back pain and left leg pain. She states she does not want any medication for pain right now. She does have pruritus and would like some medicine for itching. She had some nausea earlier and think she ate too much. She had some abdominal pain earlier as well but it is gone. She denies any chest pain. The patient told the leather case finisher that she thought she needed a cardiac procedure, and I reviewed the cardiology notes and there is no mention of any cardiac procedures needed at this time. The patient's daughter wondered if she was going to receive IVIG during this hospital course. I will discuss that with the oncology service. Objective Vital Signs Vital signs Vital Signs Date Time Temp Pulse Resp B/P Pulse Ox O2 Delivery O2 Flow Rate FiO2 03/03/17 11:33 97.6 60 16 118/63 99 Nasal Cannula 2.00 GEN-alert, pleasant, no acute distress HEENT-anicteric, oropharynx is moist NECK-supple CV-regular rate and rhythm with a 4/6 systolic murmur CHEST-dry crackles in the chest bilaterally ABD-soft, nontender, nondistended with positive bowel sounds -Thrasher in place with good urine output EXT-significant edema in the left leg is mildly decreased, no edema in the right leg. SCD present on the right leg NEURO-mild dementia, no focal deficits SKIN-warm and dry Telemetry Rhythm: Sinus Rhythm Height (Feet): 5 Height (Inches): 0.00 Weight (Kilograms): 48.000 Laboratory Laboratory Laboratory Tests 03/02/17 05:05 03/03/17 04:32 Laboratory Tests 03/02/17 05:05 03/03/17 04:32 Assessment & Plan Problems: (1) NHL (non-Hodgkin's lymphoma) Status: Acute Assessment & Plan: Relapsed - Chemo initiated on 02/27 (2) Edema of left lower extremity Status: Acute Assessment & Plan: Left lower - lymph obstruction secondary to relapsed NHL (3) Anemia Onset Date: 05/03/2014 Status: Acute (4) Fatigue Status: Acute Qualifiers: Encounter type: initial encounter (5) Anorexia Status: Acute (6) Generalized pruritus Status: Acute (7) Hypernatremia Status: Resolved Assessment & Plan: POA (8) CAD (coronary artery disease) Status: Chronic Qualifiers: Coronary Disease-Associated Artery/Lesion type: [place]ski artery [place] vs. transplanted heart: belk[place]ski heart Associated angina: without angina Qualified Codes: I25.10 - Atherosclerotic heart disease of belk[place]ski coronary artery without angina pectoris Assessment & Plan: Heart cath 05/2016 - stent to Circ 05/2016. Continue Plavix and Aspirin (9) Hypertension Status: Chronic Qualifiers: Hypertension type: essential hypertension Qualified Codes: I10 - Essential (primary) hypertension (10) Mixed hyperlipidemia Status: Chronic (11) Presence of automatic implantable cardioverter-defibrillator Status: Chronic (12) Non-rheumatic tricuspid valve insufficiency Status: Chronic (13) Nonrheumatic aortic valve stenosis Status: Chronic (14) GERD (gastroesophageal reflux disease) Status: Chronic Qualifiers: Esophagitis presence: esophagitis presence not specified Qualified Codes: K21.9 - Gastro-esophageal reflux disease without esophagitis (15) Depression Status: Chronic Qualifiers: Depression Type: unspecified Qualified Codes: F32.9 - Major depressive disorder, single episode, unspecified (16) Anxiety Status: Chronic (17) Vascular dementia Status: Chronic Qualifiers: Dementia behavioral disturbance: without behavioral disturbance Qualified Codes: F01.50 - Vascular dementia without behavioral disturbance (18) Osteoarthritis Status: Chronic Qualifiers: Osteoarthritis location: multiple joints Osteoarthritis type: primary Qualified Codes: M15.0 - Primary generalized (osteo)arthritis (19) Gait instability Status: Chronic (20) Debility Status: Acute (21) Hypercalcemia Assessment 03/03/2017 Impression Non-Hodgkin's lymphoma relapsed, chemotherapy it initiated 02/27/2017 Lymphedema left leg secondary to non-Hodgkin's lymphoma Autoimmune Hemolytic anemia Pulmonary fibrosis-chronic O2 at 2-3 L COPD Coronary artery disease with a stent placed in May 2016 Pacemaker (daughter states she does not have a defibrillator) Leg pains with activity likely secondary to anemia Chronic kidney disease Hypercalcemia Pruritus likely secondary to non-Hodgkin's lymphoma Protein calorie malnutrition Hypernatremia-resolved History of GI bleed-recent Hemoccult negative Vascular dementia Hypertension Plan IV fluids held yesterday. Patient is taking by mouth well. Calcium is up slightly to 11.1. Recheck tomorrow. Continue Decadron. Will discuss possible IVIG with oncology service. Encourage increased activity with PT and OT Recheck CBC, renal panel tomorrow Renal function is stable. Recheck tomorrow. Consider DC Thrasher DVT Prophylaxis: SCD'S Code Status Do Not Resuscitate Hospital Course Summary Disclaimer The hospital course summary below is not to be considered part of the above Progress Note. Hospital Course Summary 02/[address] patient in outpatient observation status at [facility] under the care of Dr. Rodrigues. Start IV fluids secondary to the presyncope patient was having in general internist' s office. Obtain Doppler scan of left lower extremity to exclude possibility of blood clot. Most likely we are probably dealing with underlying lymph obstruction. However, in light of progression of edema, recheck Doppler is warranted. Will continue home medications. Will consult with Dr. Ramirez for oncological evaluation of her increased lower extremity edema as well as her anorexia. Check on pending laboratory - CMP, CBC, magnesium prealbumin TSH and UA were ordered at time of presentation. However, still pending. Initiate SCDs for DVT prevention. Cardiac telemetry will be obtained. Discussed code status with patient. Daughter reports she would want " everything done" but not wish to remain on machines. The patient will therefore be FULL CODE. Patient's care will be returned to Dr. Muro at time of discharge from [facility]. 02/27 ADMIT Doing okay. Some nausea this am. No ab pain. Breathing okay-needing O2, but not hurting with breathing or having cough/congestion. Still with diffuse itching. With need for chemotherapy to address her edema, will change admission status to inpatient. Change IVF to 1/2 NS at 75cc/hr to provide hydration and correct hypernatremia. PT/OT to help functional status. Monitor blood counts - likely need transfusion. Pharmacy reviewed home meds and corrected our med rec. Recheck BMP in am due to hypernatremia. Repeat CBC due to anemia and chemo. 02/28/17 Acute on chronic anemia - h&h down to 6.[address] Peng has already ordered 2 units of blood, but due to antibodies the blood will be coming from [place]. Should arrive this afternoon. Lasix to be given in between units. Stool was negative for occult blood last night though patient reported "a few red stools" to oncology when they saw her in consultation. CAD with stent placed in 05/2016 - Cont ASA and Plavix. Platelets are normal at 238. Hypotension - SBP in 90s for much of yesterday. Improved this morning. Cont to hold metoprolol. Cont Inderal. HR upper 50s-60s. Weight has increased to 47.6 and she is nearly 3.6L fluid positive. If her BP remains stable today could probably DC IVF. CXR showed pulm fibrosis. Hypernatremia - resolved. Na 144. Not a candidate for anticoagulants for VTE ppx d/t severe anemia. 03/01/17 Acute encephalopathy/delirium, superimposed on dementia - moved to room 142 for safety; PRN dose of Haldol given last night. Acute on chronic anemia - having difficulty matching blood d/t antibodies. Dr. Tejeda aware - will round on the pt and complete transfusion orders today. Hypotension - BP marginal. Consider reducing Inderal; continue to hold metoprolol. Continue IVF, but decrease rate. Once BP stabilizes (expect improvement with blood transfusion), would like to DC IVF b/c of weight gain and being fluid positive. Renal function improving. Hypercalcemia - improved to 10.5. Dr. Tejeda - consider nephrology eval, Aredia or Zometa 03/02/17 Transfusion is on hold, will discuss further with Dr. Ramirez later today. Hemoglobin is 6.5, hematocrit 12.6. White count is 5.7. Iron level was normal at 70, TIBC low at 232, ferritin was high at 1440. Vitamin B12 was 916. Renal status is holding steady with BUN of 45 and creatinine 1.6. Hypercalcemia persists, calcium is 10.9 this morning. Low blood pressure: Continue to hold beta porfirio. Heart rate has not been tachycardic. 03/02/2017-I reviewed this chart, the patient history, and the ONCOLOGIST's/PA's documented findings as above. We discussed and formulated the assessment and plan as above with the additions below.-Dr. Peng Patient states she's feeling okay. She denies any pain at this time. She denies shortness of breath. On exam she is alert and in no acute distress. Chest reveals some crackles in the lungs bilaterally. Cardiovascular reveals a regular rate and rhythm with a 4 /6 systolic murmur. Abdomen is soft and nontender. No edema in the right leg. Left leg has lymphedema with weeping. Lab today shows hemoglobin of 6.5. White count 5.7. Platelets are normal. BUN/creatinine are fairly stable. Calcium is still elevated at 10.9 today. We can hold IV fluids and monitor creatinine and renal function. Hopefully, Decadron will help with elevated calcium. Continue to monitor lab work. Fortunately, hemoglobin is stable. ANALIA PENG MD March 03, 2017 15:11
--- NOTE | 2017-03-03 15:22 | NUR ---
PT Note: 1037 Pt declines to participate in PT stating "I'm not feeling to well today I've got aches and pain all over and I don't feel like doing anything today". Pt consents to OFFICE ENGINEER returning in the p.m. 1409 Pt declines to participate in PT stating "I can't walk with my legs swollen like this". Pt educated that exercises can assist in decreasing edema and pain. Pt states "I'm waiting for the doctor he's going to send me to the hospital in [place]". Pt reoriented to place. Attempted to educate pt. on bed level exercises pt. states "I'm not doing any exercises I don't want to get my back hurting again". Will continue to treat according to POC. Please call [phone] with any questions.
--- NOTE | 2017-03-03 16:58 | NUR ---
STATUS pt is alert to name. has a history of dementia. pt has had some pain and was given scheduled and prn tylenol as charted. pt gets up with assist X1 using the gaitbelt and walker. pt uses the bsc to void. pt has sat in the chair this shift. pt is on O2-1L NC. pt visited with daughter this shift. pt is resting in bed waiting on dinner. call light within reach.
[2017-03-03] MEDS: ATORVASTATIN 20 MG TABLET PO SCH (20:28)
[2017-03-04] VITALS (9 sets, daily range): BP systolic 116–137; BP diastolic 57–69; PULSE 60–101; RESP 16–18; TEMP 96.4–98.3; O2SAT 95–100
--- NOTE | 2017-03-04 05:41 | NUR ---
Status Pt woke at 2030, ate two bowls of cereal and drank all the milk. She was alert to self, place, the day of wk but not month/year. Became more confused and had increased difficulty transferring to BSC as the night went on. C/O of itching, meds per order and lotion applied. Rested well after. Call light in reach, alarms in place.
[2017-03-04 06:00] LABS: ALBUMIN 3.1 G/DL (3.5-5.0); ANION GAP 10 MEQ/L (5-15); BUN/CREATININE RATIO 39 RATIO (6-26); CALCIUM 11.4 MG/DL (8.4-10.2); CHLORIDE 99 MEQ/L (98-107); CO2 - CARBON DIOXIDE 34 MEQ/L (22-30); CREATININE 1.3 MG/DL (0.7-1.2); GLOMERULAR FILTRATION RATE 39; GLUCOSE 91 MG/DL (65-110); PHOSPHORUS 4.8 MG/DL (2.5-4.5); SODIUM 143 MEQ/L (134-144)
[2017-03-04 06:15] LABS: HCT - HEMATOCRIT 19.4 % (36-46); HGB - HEMOGLOBIN 6.7 GM/DL (12-16); MEAN CORPUSCULAR HGB 41.1 UUG (26-34); MEAN CORPUSCULAR HGB CONC(MCHC 34.5 GM/DL (31-37); MEAN PLATELET VOLUME 12.1 UM3 (9.4-12.4); RED BLOOD COUNT 1.63 M/MM3 (4.00-5.20); WBC - WHITE BLOOD COUNT 10.5 T/MM3 (4.5-11.0)
[2017-03-04 06:33] LABS: ANISOCYTOSIS 1+; LYMPHOCYTES # (MANUAL) 1.7 T/MM3 (1-4.8); MONOCYTES # (MANUAL) 0.3 T/MM3 (0-0.8); NEUTROPHILS #(MANUAL)-ABSOLUTE 8.5 T/MM3 (1.8-7.7); NUCLEATED RED BLOOD CELLS 2; POIKILOCYTOSIS 1+; TOTAL CELLS COUNTED 100 %
[2017-03-04] MEDS: PANTOPRAZOLE 40 MG TABLET PO SCH ×2 (06:36→18:20)
[2017-03-04] MEDS: LEVOTHYROXINE 25 MCG TABLET PO SCH (06:36)
[2017-03-04] MEDS ORDERED: DEXAMETHASONE 4mg/ml - 1ml INJECTION IV ONE (07:30)
[2017-03-04] MEDS: CLOPIDOGREL 75 MG TABLET PO SCH (08:09)
[2017-03-04] MEDS: DULOXETINE 60 MG CAPSULE PO SCH (08:09)
[2017-03-04] MEDS: FUROSEMIDE 40 MG TABLET PO SCH (08:09)
[2017-03-04] MEDS: FOLIC ACID 1 MG TABLET PO SCH (08:09)
[2017-03-04] MEDS: FAMOTIDINE 20 MG TABLET PO SCH (08:09)
[2017-03-04] MEDS: ALLOPURINOL 100 MG TABLET PO SCH (08:10)
[2017-03-04] MEDS: PROPRANOLOL 20 MG TABLET PO SCH ×2 (08:10→20:17)
[2017-03-04] MEDS: ASPIRIN *EC* 81mg TABLET PO SCH (08:10)
[2017-03-04] MEDS: ACETAMINOPHEN 325 MG TABLET PO SCH (08:10)
[2017-03-04] MEDS: LORAZEPAM 0.5 MG TABLET PO SCH ×2 (08:11→20:17)
[2017-03-04] MEDS: BUDESONIDE 0.25 MG/2 ML AEROSOL SCH ×2 (09:54→19:13)
[2017-03-04] MEDS: ARFORMOTEROL 15 MCG/2 ML AEROSOL SCH ×2 (09:55→19:13)
--- NOTE | 2017-03-04 10:04 | PNPDOC ---
Subjective Date DATE: 03/04/17 TIME: 09:53 Patient does not feel well this morning. She was not aware that she was in [facility] she is alert to person. She is not aware of time. She continues to have cough. She has achiness in her left leg. Review of systems: Gen.: Negative for fever or chills, malaise Eyes: Negative eye discharge, eye pain ENT: Negative for nosebleeds, mouth sores Lymph: Negative enlarged lymph nodes, no night sweats, positive for lymphedema left leg Respiratory: Positive for cough, productive of slightly yellow sputum, positive for shortness of breath, negative for hemoptysis, Cardiac: Negative for chest pain, palpitations, positive for swelling left leg GI: Negative for nausea, negative for vomiting, negative for diarrhea Genitourinary: No urgency, no dysuria, no hematuria Musculoskeletal: Positive for weakness, no joint pain, positive for pain left leg Neurologic: Negative for headache, negative for focal weakness, negative for numbness Objective Vital Signs Vital Signs 03/04/17 03/04/17 03/04/17 03/04/17 00:32 04:00 07:27 09:04 Temp 96.9 97.3 97.4 Pulse 68 61 64 60 Resp 18 16 16 16 B/P 125/69 116/59 137/66 Pulse Ox 98 95 100 O2 Delivery Nasal Cannula Nasal Cannula Nasal Cannula O2 Flow Rate 1.00 1.00 2.00 Height (Feet): 5 Height (Inches): 0.00 Weight (Kilograms): 48.400 General Alert, No Acute Distress Eyes (Brief) Eyes: FOUND: EOMI, PERRL, NOT FOUND: scleral icterus ENMT (Brief) ENMT: FOUND: mucosa moist, NOT FOUND: lesions Neck (Brief) Neck: NOT FOUND: adenopathy Respiratory (Brief) Respiratory: FOUND: clear all fletcher, equal bilaterally Cardiovascular (Brief) Cardiac: FOUND: murmur (systolic murmur), regular rate, regular rhythm Abdomen (Brief) Abdominal: FOUND: BS normo active x4, soft, NOT FOUND: distended, hepatosplenomegaly, tender Musculoskeletal (Brief) FOUND: other (lymphedema present of left lower extremity this is improved from Thursday.), NOT FOUND: spasm Integumentary (Brief) FOUND: dry, pink Neurologic (Brief) FOUND: cranial 2-12 intact, motor (strength equal) Psychiatric (Brief) FOUND: alert, normal affect, oriented (name. Is unsure where she is. He is unable to remember the year.) Laboratory Item Value Date Time Creatinine 1.3 MG/DL H # 03/04/17 0448 Potassium Level 4.0 MEQ/L 03/04/17 0448 Blood Urea Nitrogen 51.0 MG/DL *H 03/04/17 0448 Calcium Level 11.4 MG/DL H 03/04/17 0448 Calcium Level 11.1 MG/DL H 03/03/17 0432 Calcium Level 10.9 MG/DL H 03/02/17 0505 Phosphorus Level 4.8 MG/DL H 03/04/17 0448 Lactate Dehydrogenase 896 U/L H 03/03/17 0432 Lactate Dehydrogenase 1286 U/L H 02/28/17 0410 Lactate Dehydrogenase 1417 U/L H 02/27/17 0453 Immunoglobulin M 306.74 MG/DL H 02/28/17 0410 Laboratory Tests Test 03/04/17 04:48 White Blood Count 10.5T/MM3 Red Blood Count 1.63M/MM3 Hemoglobin 6.7GM/DL Hematocrit 19.4% Mean Corpuscular Volume 119.0UM3 Mean Corpuscular Hemoglobin 41.1UUG Mean Corpuscular Hemoglobin Concent 34.5GM/DL RDW Standard Deviation 69.1FL Platelet Count 216T/MM3 Mean Platelet Volume 12.1UM3 Neutrophils % (Manual) 81.0% Lymphocytes % (Manual) 16.0% Monocytes % (Manual) 3.0% Absolute Neutrophils (Manual) 8.5T/MM3 Lymphocytes # (Manual) 1.7T/MM3 Monocytes # (Manual) 0.3T/MM3 Nucleated Red Blood Cells 2 Poikilocytosis 1+ Anisocytosis 1+ Red Cell Morphology Comment Abnormal Turbidity < 20 Sodium Level 143MEQ/L Potassium Level 4.0MEQ/L Chloride Level 99MEQ/L Carbon Dioxide Level 34MEQ/L Anion Gap 10MEQ/L Blood Urea Nitrogen 51.0MG/DL Creatinine 1.3MG/DL Glomerular Filtration Rate Calc 39 BUN/Creatinine Ratio 39RATIO Glucose Level 91MG/DL Calculated Osmolality 289MOSM/KG Calcium Level 11.4MG/DL Phosphorus Level 4.8MG/DL Icterus Index < 2 Albumin 3.1G/DL Chemistry Specimen Hemolysis < 15 Haptoglobin normal at 87 Assessment & Plan Assessment 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 Therapy was reinstituted on 02/27/17 for recurrence of the hemolytic anemia.. Rituxan due on 03/06/17 AIHA hemoglobin 6.7, improving. It appears to be stable. Reticulocyte count is 16%. This appears to be stabilizing in response to the Rituxan given on Thursday. We'll continue to follow without transfusion if possible. Haptoglobin is normal at 87. LDH is decreasing going from 1440 down to 867 suggesting improvement in anemia. 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 Hypercalcemia related to the lymphoma. Should improve with steroids will continue with dexamethasone 10 mg IV today Chronic kidney disease, long-standing. Creatinine on 03/04/17 down to 1.3. Will obtain 24-hour urine as UA shows 1+ proteinuria Fatigue Depression GERD Dementia with decreased cognitive functioning S/p rituxan 02/27/17 due again on 03/06/17 03/01/2017 case d/w Dr. Ramirez and hospitalist. agree, no transfusion due to antibodies dex 20 mg IV today to assist with AIHA Monitor hgb, Ca HGB stable , ca stable Recurrent marginal zone nhl should improve with rituxan and dex case d/w tash's and pt. Plan/Intensity of Service Check cold agglutinin titer Check cryoglobulin 24 urine for myeloma protein workup. Continue steroids dexamethasone 10 mg IV. Code Status Do Not Resuscitate Hospital Course Summary Disclaimer The visit summary below is not to be considered part of the above Progress Note. Hospital Course Summary 02/[address] patient in outpatient observation status at [facility] under the care of Dr. Rodrigues. Start IV fluids secondary to the presyncope patient was having in health associate' s office. Obtain Doppler scan of left lower extremity to exclude possibility of blood clot. Most likely we are probably dealing with underlying lymph obstruction. However, in light of progression of edema, recheck Doppler is warranted. Will continue home medications. Will consult with Dr. Ramirez for oncological evaluation of her increased lower extremity edema as well as her anorexia. Check on pending laboratory - CMP, CBC, magnesium prealbumin TSH and UA were ordered at time of presentation. However, still pending. Initiate SCDs for DVT prevention. Cardiac telemetry will be obtained. Discussed code status with patient. Daughter reports she would want " everything done" but not wish to remain on machines. The patient will therefore be FULL CODE. Patient's care will be returned to Dr. Muro at time of discharge from [facility]. 02/27 ADMIT Doing okay. Some nausea this am. No ab pain. Breathing okay-needing O2, but not hurting with breathing or having cough/congestion. Still with diffuse itching. With need for chemotherapy to address her edema, will change admission status to inpatient. Change IVF to 1/2 NS at 75cc/hr to provide hydration and correct hypernatremia. PT/OT to help functional status. Monitor blood counts - likely need transfusion. Pharmacy reviewed home meds and corrected our med rec. Recheck BMP in am due to hypernatremia. Repeat CBC due to anemia and chemo. 02/28/17 Acute on chronic anemia - h&h down to 6.[address]. Peng has already ordered 2 units of blood, but due to antibodies the blood will be coming from [place]. Should arrive this afternoon. Lasix to be given in between units. Stool was negative for occult blood last night though patient reported "a few red stools" to oncology when they saw her in consultation. CAD with stent placed in 05/2016 - Cont ASA and Plavix. Platelets are normal at 238. Hypotension - SBP in 90s for much of yesterday. Improved this morning. Cont to hold metoprolol. Cont Inderal. HR upper 50s-60s. Weight has increased to 47.6 and she is nearly 3.6L fluid positive. If her BP remains stable today could probably DC IVF. CXR showed pulm fibrosis. Hypernatremia - resolved. Na 144. Not a candidate for anticoagulants for VTE ppx d/t severe anemia. 03/01/17 Acute encephalopathy/delirium, superimposed on dementia - moved to room 142 for safety; PRN dose of Haldol given last night. Acute on chronic anemia - having difficulty matching blood d/t antibodies. Dr. Tejeda aware - will round on the pt and complete transfusion orders today. Hypotension - BP marginal. Consider reducing Inderal; continue to hold metoprolol. Continue IVF, but decrease rate. Once BP stabilizes (expect improvement with blood transfusion), would like to DC IVF b/c of weight gain and being fluid positive. Renal function improving. Hypercalcemia - improved to 10.5. Dr. Tejeda - consider nephrology eval, Aredia or Zometa 03/02/17 Transfusion is on hold, will discuss further with Dr. Ramirez later today. Hemoglobin is 6.5, hematocrit 12.6. White count is 5.7. Iron level was normal at 70, TIBC low at 232, ferritin was high at 1440. Vitamin B12 was 916. Renal status is holding steady with BUN of 45 and creatinine 1.6. Hypercalcemia persists, calcium is 10.9 this morning. Low blood pressure: Continue to hold beta porfirio. Heart rate has not been tachycardic. 03/02/2017-I reviewed this chart, the patient history, and the SAFETY SPEC's/PA's documented findings as above. We discussed and formulated the assessment and plan as above with the additions below.-Dr. Peng Patient states she's feeling okay. She denies any pain at this time. She denies shortness of breath. On exam she is alert and in no acute distress. Chest reveals some crackles in the lungs bilaterally. Cardiovascular reveals a regular rate and rhythm with a 4 /6 systolic murmur. Abdomen is soft and nontender. No edema in the right leg. Left leg has lymphedema with weeping. Lab today shows hemoglobin of 6.5. White count 5.7. Platelets are normal. BUN/creatinine are fairly stable. Calcium is still elevated at 10.9 today. We can hold IV fluids and monitor creatinine and renal function. Hopefully, Decadron will help with elevated calcium. Continue to monitor lab work. Fortunately, hemoglobin is stable. SABINO RAMIREZ March 04, 2017 09:57
--- NOTE | 2017-03-04 11:33 | PNPDOC ---
PAULINE SNOW MOLD FILLING OPERATOR 03/04/17 1114: Subjective Date DATE: 03/04/17 TIME:11:15 Subjective Erika is seen in her room on Medical laying in her bed. She states she does not feel well today. She c/o abdominal pain and some dyspnea. She denies chest pain or pressure. Objective Vital Signs Vital signs Vital Signs 03/04/17 03/04/17 03/04/17 03/04/17 00:32 04:00 07:27 09:04 Temp 96.9 97.3 97.4 Pulse 68 61 64 60 Resp 18 16 16 16 B/P 125/69 116/59 137/66 Pulse Ox 98 95 100 O2 Delivery Nasal Cannula Nasal Cannula Nasal Cannula O2 Flow Rate 1.00 1.00 2.00 03/04/17 03/04/17 03/04/17 09:55 09:55 10:09 Pulse 60 60 Resp 16 Pulse Ox 100 Telemetry Rhythm: Sinus Rhythm Height (Feet): 5 Height (Inches): 0.00 Weight (Kilograms): 48.400 General Alert, Orientated x 3, Cooperative ENMT (Brief) mucosa moist Neck (Brief) NOT FOUND: JVD, carotid bruits Respiratory (Brief) equal bilaterally, rales (bibasilar), NOT FOUND: clear all fletcher Cardiovascular (Brief) murmur, pedal edema (left leg), regular rate, regular rhythm, NOT FOUND: click, gallop, rub Abdomen (Brief) BS normo active x4, soft, tender Integumentary (Brief) dry, pink, warm Psychiatric (Brief) alert, attentive, oriented Laboratory Laboratory Laboratory Tests Test 03/03/17 04:32 03/04/17 04:48 03/04/17 10:35 White Blood Count 9.2T/MM3 10.5T/MM3 Red Blood Count 1.55M/MM3 1.63M/MM3 Hemoglobin 6.5GM/DL 6.7GM/DL Hematocrit 18.3% 19.4% Mean Corpuscular Volume 118.1UM3 119.0UM3 Mean Corpuscular Hemoglobin 41.9UUG 41.1UUG Mean Corpuscular Hemoglobin Concent 35.5GM/DL 34.5GM/DL RDW Standard Deviation 70.9FL 69.1FL Platelet Count 200T/MM3 216T/MM3 Mean Platelet Volume 11.6UM3 12.1UM3 Immature Granulocyte % (Auto) % Neutrophils (%) (Auto) % Lymphocytes (%) (Auto) % Monocytes (%) (Auto) % Eosinophils (%) (Auto) % Basophils (%) (Auto) % Absolute Immature Granulocyte (auto T/MM3 Absolute Neutrophils (auto) T/MM3 Absolute Lymphocytes (auto) T/MM3 Absolute Monocytes (auto) T/MM3 Absolute Eosinophils (auto) T/MM3 Absolute Basophils (auto) T/MM3 Neutrophils % (Manual) 79.0% 81.0% Lymphocytes % (Manual) 20.0% 16.0% Monocytes % (Manual) 1.0% 3.0% Absolute Neutrophils (Manual) 7.3T/MM3 8.5T/MM3 Lymphocytes # (Manual) 1.8T/MM3 1.7T/MM3 Monocytes # (Manual) 0.1T/MM3 0.3T/MM3 Nucleated Red Blood Cells 3 2 Poikilocytosis 1+ 1+ Anisocytosis 1+ 1+ Red Cell Morphology Comment Abnormal Abnormal Haptoglobin 87mg/dL Turbidity < 20 < 20 Sodium Level 141MEQ/L 143MEQ/L Potassium Level 3.9MEQ/L 4.0MEQ/L Chloride Level 101MEQ/L 99MEQ/L Carbon Dioxide Level 29MEQ/L 34MEQ/L Anion Gap 11MEQ/L 10MEQ/L Blood Urea Nitrogen 50.0MG/DL 51.0MG/DL Creatinine 1.5MG/DL 1.3MG/DL Glomerular Filtration Rate Calc 33 39 BUN/Creatinine Ratio 33RATIO 39RATIO Glucose Level 138MG/DL 91MG/DL Calculated Osmolality 286MOSM/KG 289MOSM/KG Uric Acid 4.7MG/DL Calcium Level 11.1MG/DL 11.4MG/DL Magnesium Level 1.7MG/DL Total Bilirubin 0.70MG/DL Icterus Index < 2 < 2 Aspartate Amino Transf (AST/SGOT) 23U/L Alanine Aminotransferase (ALT/SGPT) 24U/L Alkaline Phosphatase 57U/L Lactate Dehydrogenase 896U/L Total Protein 5.1G/DL Albumin 2.9G/DL 3.1G/DL Globulin 2.2G/DL Albumin/Globulin Ratio 1.3RATIO Chemistry Specimen Hemolysis < 15 < 15 Phosphorus Level 4.8MG/DL Laboratory Tests 03/04/17 04:48 Laboratory Tests 03/04/17 04:48 Medications Current Medications Sodium Chloride (Normal Saline IV) 1,000 ml @ 100 mls/hr Q10H IV Last administered on 02/27/17 06:00; Start 02/26/17 at 17:15; Stop 02/27/17 at 11:36; Status DC Allopurinol (ZYLOPRIM 300 mg) 300 mg DAILY PO Last administered on 02/27/17 08: 43; Start 02/27/17 at 09:00; Stop 02/27/17 at 13:21; Status DC Aspirin (Ecotrin) 81 mg DAILY PO Last administered on 03/04/17 08:10; Start at 09:00 Atorvastatin Calcium (LIPITOR 20 mg) 20 mg HS PO Last administered on 03/03/17 20:28; Start 02/26/17 at 22:00 Budesonide (PULMICORT 0.25mg/2ml) 0.25 mg BID AEROSOL Last administered on 03/04 09:54; Start 02/26/17 at 21:00 Clopidogrel Bisulfate (Plavix) 75 mg DAILY PO Last administered on 03/04/17 08 :09; Start 02/27/17 at 09:00 Duloxetine HCl (Cymbalta) 60 mg DAILY PO Last administered on 03/04/17 08:09; Start 02/27/17 at 09:00 Famotidine (Pepcid) 20 mg DAILY PO Last administered on 03/04/17 08:09; Start 02/27/17 at 09:00 Folic Acid (Folate) 1 mg DAILY PO Last administered on 03/04/17 08:09; Start 02/27/17 at 09:00 Hydroxyzine HCl (Atarax) 25 mg QID PRN PO ITCHING Last administered on 15:38; Start 02/26/17 at 19:45 Hyoscyamine Sulfate (Levsin Sl) 0.125 mg Q4H PRN SL SECRETIONS; Start 02/26/17 at 19:45 Levothyroxine Sodium (Synthroid) 25 mcg ACB PO Last administered on 03/04/17 06:36; Start 02/27/17 at 06:30 Lorazepam (Ativan) 0.5 mg BID PO Last administered on 03/04/17 08:11; Start at 21:00 Metoprolol Succinate (Toprol Xl) 25 mg DAILY PO Last administered on 02/27/17 08:45; Start 02/27/17 at 09:00; Status Future Hold Pantoprazole Sodium (Protonix) 40 mg BID PO Last administered on 02/26/17 20:11 ; Start 02/26/17 at 21:00; Stop 02/27/17 at 05:40; Status DC Propranolol HCl (Inderal) 60 mg BID PO Last administered on 03/04/17 08:10; Start 02/27/17 at 09:00; Status Future hold Albuterol Sulfate (Proventil 2.5 Mg/3 ml) 2.5 mg Q4HR PRN AEROSOL Last administered on 02/26/17 21:03; Start 02/26/17 at 20:30 Pantoprazole Sodium 40 mg 40 mg ACBID PO Last administered on 03/04/17 06:36; Start 02/27/17 at 06:30 Sodium Chloride (0.45% NS) 1,000 ml @ 60 mls/hr [id number] IV Last administered on 03/02/17 07:24; Start 02/27/17 at 11:45; Status Future Hold Allopurinol 100 mg 100 mg DAILY PO Last administered on 03/04/17 08:10; Start 02/28/17 at 09:00 Rituximab/Sodium Chloride (Rituxan/NS) 540 ml @ 50 mls/hr [id number] ONCE IV Last administered on 02/27/17 14:38; Start 02/27/17 at 15:15; Stop 02/28/17 at 02: 02; Status DC Hydrocortisone Sodium Succinate (Solu-Cortef) 100 mg PRN PRN IV HYPERSENSITIVITY; Start 02/27/17 at 14:30 Methylprednisolone Sodium Succinate 125 mg 125 mg PRN PRN IV HYPERSENSITIVITY; Start 02/27/17 at 14:30 Sodium Chloride (NS) 500 ml @ 0 mls/hr Q0M IV ; Start 02/28/17 at 08:37 Furosemide (Lasix) 20 mg O ONCE IV ; Start 02/28/17 at 08:45; Stop 02/28/17 at 09 :19; Status DC Acetaminophen (Tylenol Regular Strength) 650 mg O ONCE PO ; Start 02/28/17 at 08 :45; Stop 02/28/17 at 09:19; Status DC Diphenhydramine HCl (Benadryl) 25 mg O ONCE PO ; Start 02/28/17 at 08:45; Stop 02/28/17 at 09:19; Status DC Arformoterol Tartrate (Brovana) 15 mcg BID AEROSOL Last administered on 09:55; Start 02/28/17 at 21:00 Haloperidol Lactate (Haldol 5 Mg/ml Inj) 0.5 mg Q4H PRN IV AGITATION Last administered on 02/28/17 20:33; Start 02/28/17 at 18:45 Ondansetron HCl (Zofran) 4 mg Q6H PRN IV NAUSEA &/OR VOMITING Last administered on 03/01/17 00:49; Start 03/01/17 at 00:45 Oxycodone/ Acetaminophen (Percocet 5/325) 1 tab Q4H PRN PO ; Start 03/02/17 at 23:00; Stop 03/02/17 at 23:10; Status DC Morphine Sulfate (Morphine) 2 mg Q4H PRN IV PAIN; Start 03/02/17 at 23:00; Stop 03/02/17 at 23:10; Status DC Dexamethasone Sodium Phosphate 10 mg 10 mg O ONCE IV ; Start 03/03/17 at 12:15; Stop 03/03/17 at 12:16; Status UNV Dexamethasone Sodium Phosphate/ Sodium Chloride (Decadron/NS) 52.5 ml @ 200 mls /hr O ONCE IV Last administered on 03/03/17 13:08; Start 03/03/17 at 13:00; Stop 03/03/17 at 13:15; Status DC Dexamethasone Sodium Phosphate (Decadron) 10 mg O ONCE IV Last administered on 03/04/17 08:16; Start 03/04/17 at 07:30; Stop 03/04/17 at 07:54; Status DC Assessment & Plan Problems: (1) NHL (non-Hodgkin's lymphoma) Status: Chronic Qualifiers: Non-Hodgkin lymphoma type: unspecified type Lymphoma site: unspecified region Qualified Codes: C85.90 - Non-Hodgkin lymphoma, unspecified, unspecified site Assessment & Plan: Received Chemotherapy on 02/27/17 (2) Anemia Onset Date: 05/03/2014 Status: Acute Qualifiers: Hemolytic anemia type: acquired, autoimmune, other Assessment & Plan: Unable to transfuse due to antibodies (3) 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 Will check Q 6 months. Last SANDRA showed EF of 55% in 01/2016 (4) Atherosclerotic heart disease of [place] coronary artery without angina pectoris Status: Chronic Qualifiers: [place] vs. transplanted heart: [place] heart Qualified Codes: I25.10 - Atherosclerotic heart disease of [place] coronary artery without angina pectoris Assessment & Plan: Heart cath with Stent to Circ 05/2016. Continue current antiplatelet therapy of Plavix and Aspirin, routine monitoring. (5) Non-rheumatic tricuspid valve insufficiency Status: Chronic Assessment & Plan: routine monitoring (6) Essential hypertension Status: Chronic Assessment & Plan: Well controlled on medical therapy, continue current therapy of Lasix and Propranolol. hold Metoprolol for now (7) Mixed hyperlipidemia Status: Chronic Assessment & Plan: Continue Atorvastatin (8) Chronic kidney disease, unspecified Status: Chronic Assessment & Plan: Continue Plavix and Aspirin, continue Lasix, and Propranolol and hold Metoprolol. Continue Atorvastatin. (9) H/O mitral valve repair Status: Chronic (10) H/O aortic valve replacement with porcine valve Status: Chronic Plan/Intensity of Service Hypotensive: Continue current therapy of Lasix and Propranolol. hold Metoprolol for now, may need to adjust propranolol Continue current antiplatelet therapy of Plavix and Aspirin, [employer] Bi-V/P checked in office 11/2016. Will check Q 6 months. Last SANDRA showed EF of 55% in 01/2016. 03/03/17 BP improved, no cardiac complaints, okay to discharge from Cardiology standpoint. 03/04/17 States doesn't feel good today. No change from Cardiology standpoint. Thank you for allowing us to participate in the care of this patient JULIA SHEA MD 03/09/17 1204: Assessment & Plan Plan/Intensity of Service After examining the patient I agree with the above assessment. I am involved in the formulation of the patient's plan of care. PUALINE SNOW APRN March 04, 2017 11:14 JULIA SHEA MD March 09, 2017 12:04
[2017-03-04] MEDS: LORAZEPAM 0.5 MG TABLET PO PRN (14:13)
--- NOTE | 2017-03-04 15:22 | PNPDOC ---
SANTIAGO MCLEOD V STAFF NUCLE[employer]ONS OFFICER 03/04/17 1501: Subjective Date DATE: 03/04/17 TIME: 14:58 Subjective Erika is seen this afternoon while resting comfortably in bed. She is alert, oriented and pleasant during examination. She is currently on 2 liters of oxygen by nasal cannula without evidence of distress. She states that she did work with therapy this morning and that did make her legs fatigued, however, she feels better at rest. Denies chest pain, GI complaints. Appetite has been good. Vitals normal. Objective Vital Signs Vital signs Vital Signs Date Time Temp Pulse Resp B/P Pulse Ox O2 Delivery O2 Flow Rate FiO2 03/04/17 11:13 97.3 60 16 123/64 100 Nasal Cannula 2.00 Telemetry Rhythm: Sinus Rhythm Height (Feet): 5 Height (Inches): 0.00 Weight (Kilograms): 48.400 General General Appearance: Alert, Orientated x 3, Cooperative, No Acute Distress Eyes (Brief) Eyes: FOUND: EOMI ENMT (Brief) ENMT: FOUND: mucosa moist, normal dentition, NOT FOUND: pharnyx erythema Neck (Brief) Neck: FOUND: midline, NOT FOUND: adenopathy, carotid bruits, tracheal deviation Respiratory (Brief) Respiratory: NOT FOUND: wheezes Comments Diminished Bilateral Cardiovascular (Brief) Cardiac: FOUND: murmur, regular rhythm, NOT FOUND: pedal edema Capillary Refill: <2 sec Abdomen (Brief) Abdominal: FOUND: BS normo active x4, soft, NOT FOUND: distended, tender Extremities (Brief) Extremity : Side: Bilateral Extremity Finding: FOUND: edema (bilateral lower extremity edema, left greater than right) Lymphatic (Brief) Lymphatic: NOT FOUND: adenopathy Musculoskeletal (Brief) Musculoskeletal: NOT FOUND: tenderness Integumentary (Brief) Integumentary: FOUND: dry, pink, warm Neurologic (Brief) Neurological: FOUND: cranial 2-12 intact Psychiatric (Brief) Psychiatric: FOUND: alert, attentive, normal affect, oriented Laboratory Laboratory Laboratory Tests 03/03/17 04:32 03/04/17 04:48 Laboratory Tests 03/03/17 04:32 03/04/17 04:48 Assessment & Plan Problems: (1) NHL (non-Hodgkin's lymphoma) Status: Chronic Qualifiers: Non-Hodgkin lymphoma type: unspecified type Lymphoma site: unspecified region Qualified Codes: C85.90 - Non-Hodgkin lymphoma, unspecified, unspecified site Assessment & Plan: Relapsed - Chemo initiated on 02/27 (2) Edema of left lower extremity Status: Acute Assessment & Plan: Left lower - lymph obstruction secondary to relapsed NHL (3) Anemia Onset Date: 05/03/2014 Status: Acute Qualifiers: Hemolytic anemia type: acquired, autoimmune, other (4) Fatigue Status: Acute Qualifiers: Encounter type: initial encounter (5) Anorexia Status: Acute (6) Generalized pruritus Status: Acute (7) Hypernatremia Status: Resolved Assessment & Plan: POA (8) CAD (coronary artery disease) Status: Chronic Qualifiers: Coronary Disease-Associated Artery/Lesion type: [place] artery [place] vs. transplanted heart: [place] heart Associated angina: without angina Qualified Codes: I25.10 - Atherosclerotic heart disease of [place] coronary artery without angina pectoris Assessment & Plan: Heart cath 05/2016 - stent to Circ 05/2016. Continue Plavix and Aspirin (9) Hypertension Status: Chronic Qualifiers: Hypertension type: essential hypertension Qualified Codes: I10 - Essential (primary) hypertension (10) Mixed hyperlipidemia Status: Chronic (11) Presence of automatic implantable cardioverter-defibrillator Status: Chronic (12) Non-rheumatic tricuspid valve insufficiency Status: Chronic (13) Nonrheumatic aortic valve stenosis Status: Chronic (14) GERD (gastroesophageal reflux disease) Status: Chronic Qualifiers: Esophagitis presence: esophagitis presence not specified Qualified Codes: K21.9 - Gastro-esophageal reflux disease without esophagitis (15) Depression Status: Chronic Qualifiers: Depression Type: unspecified Qualified Codes: F32.9 - Major depressive disorder, single episode, unspecified (16) Anxiety Status: Chronic (17) Vascular dementia Status: Chronic Qualifiers: Dementia behavioral disturbance: without behavioral disturbance Qualified Codes: F01.50 - Vascular dementia without behavioral disturbance (18) Osteoarthritis Status: Chronic Qualifiers: Osteoarthritis location: multiple joints Osteoarthritis type: primary Qualified Codes: M15.0 - Primary generalized (osteo)arthritis (19) Gait instability Status: Chronic (20) Debility Status: Acute (21) Hypercalcemia Assessment Non-Hodgkin's lymphoma relapsed, chemotherapy it initiated 02/27/2017 Lymphedema left leg secondary to non-Hodgkin's lymphoma Autoimmune Hemolytic anemia Pulmonary fibrosis-chronic O2 at 2-3 L COPD Coronary artery disease with a stent placed in May 2016 Pacemaker (daughter states she does not have a defibrillator) Leg pains with activity likely secondary to anemia Chronic kidney disease Hypercalcemia Pruritus likely secondary to non-Hodgkin's lymphoma Protein calorie malnutrition Hypernatremia-resolved History of GI bleed-recent Hemoccult negative Vascular dementia Hypertension Plan/Intensity of Service 03/04/[address] Ramirez for oncology and hematology recommendations. Given history of hemolytic anemia and non-Hodgkin's lymphoma. Continue to monitor hemoglobin, today is 6.7. 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 When he for hour urine collection was ordered by oncology. She did receive Decadron 10 milligrams IV 1 today. Will continue to follow persistent hypercalcemia. She did receive Lasix 40 milligrams by mouth this morning. May consider a 2nd dose this afternoon. Encourage work PT/OT for strengthening Recheck CBC and BMP tomorrow morning to follow blood counts, renal function and electrolytes Discuss further plan of care with attending, Dr Peng Code Status Do Not Resuscitate Hospital Course Summary Disclaimer The hospital course summary below is not to be considered part of the above Progress Note. Hospital Course Summary 02/[address] patient in outpatient observation status at [facility] under the care of Dr. Rodrigues. Start IV fluids secondary to the presyncope patient was having in assistant accounting manager' s office. Obtain Doppler scan of left lower extremity to exclude possibility of blood clot. Most likely we are probably dealing with underlying lymph obstruction. However, in light of progression of edema, recheck Doppler is warranted. Will continue home medications. Will consult with Dr. Ramirez for oncological evaluation of her increased lower extremity edema as well as her anorexia. Check on pending laboratory - CMP, CBC, magnesium prealbumin TSH and UA were ordered at time of presentation. However, still pending. Initiate SCDs for DVT prevention. Cardiac telemetry will be obtained. Discussed code status with patient. Daughter reports she would want " everything done" but not wish to remain on machines. The patient will therefore be FULL CODE. Patient's care will be returned to Dr. Muro at time of discharge from [facility]. 02/27 ADMIT Doing okay. Some nausea this am. No ab pain. Breathing okay-needing O2, but not hurting with breathing or having cough/congestion. Still with diffuse itching. With need for chemotherapy to address her edema, will change admission status to inpatient. Change IVF to 1/2 NS at 75cc/hr to provide hydration and correct hypernatremia. PT/OT to help functional status. Monitor blood counts - likely need transfusion. Pharmacy reviewed home meds and corrected our med rec. Recheck BMP in am due to hypernatremia. Repeat CBC due to anemia and chemo. 02/28/17 Acute on chronic anemia - h&h down to 6.[address]. Peng has already ordered 2 units of blood, but due to antibodies the blood will be coming from [place]. Should arrive this afternoon. Lasix to be given in between units. Stool was negative for occult blood last night though patient reported "a few red stools" to oncology when they saw her in consultation. CAD with stent placed in 05/2016 - Cont ASA and Plavix. Platelets are normal at 238. Hypotension - SBP in 90s for much of yesterday. Improved this morning. Cont to hold metoprolol. Cont Inderal. HR upper 50s-60s. Weight has increased to 47.6 and she is nearly 3.6L fluid positive. If her BP remains stable today could probably DC IVF. CXR showed pulm fibrosis. Hypernatremia - resolved. Na 144. Not a candidate for anticoagulants for VTE ppx d/t severe anemia. 03/01/17 Acute encephalopathy/delirium, superimposed on dementia - moved to room 142 for safety; PRN dose of Haldol given last night. Acute on chronic anemia - having difficulty matching blood d/t antibodies. Dr. Tejeda aware - will round on the pt and complete transfusion orders today. Hypotension - BP marginal. Consider reducing Inderal; continue to hold metoprolol. Continue IVF, but decrease rate. Once BP stabilizes (expect improvement with blood transfusion), would like to DC IVF b/c of weight gain and being fluid positive. Renal function improving. Hypercalcemia - improved to 10.5. Dr. Tejeda - consider nephrology eval, Aredia or Zometa 03/02/17 Transfusion is on hold, will discuss further with Dr. Ramirez later today. Hemoglobin is 6.5, hematocrit 12.6. White count is 5.7. Iron level was normal at 70, TIBC low at 232, ferritin was high at 1440. Vitamin B12 was 916. Renal status is holding steady with BUN of 45 and creatinine 1.6. Hypercalcemia persists, calcium is 10.9 this morning. Low blood pressure: Continue to hold beta porfirio. Heart rate has not been tachycardic. 03/02/2017-I reviewed this chart, the patient history, and the STAFF NUCLE[employer] WEAPONS OFFICER's/PA's documented findings as above. We discussed and formulated the assessment and plan as above with the additions below.-Dr. Peng Patient states she's feeling okay. She denies any pain at this time. She denies shortness of breath. On exam she is alert and in no acute distress. Chest reveals some crackles in the lungs bilaterally. Cardiovascular reveals a regular rate and rhythm with a 4 /6 systolic murmur. Abdomen is soft and nontender. No edema in the right leg. Left leg has lymphedema with weeping. Lab today shows hemoglobin of 6.5. White count 5.7. Platelets are normal. BUN/creatinine are fairly stable. Calcium is still elevated at 10.9 today. We can hold IV fluids and monitor creatinine and renal function. Hopefully, Decadron will help with elevated calcium. Continue to monitor lab work. Fortunately, hemoglobin is stable. 03/03 Plan IV fluids held yesterday. Patient is taking by mouth well. Calcium is up slightly to 11.1. Recheck tomorrow. Continue Decadron. Will discuss possible IVIG with oncology service. Encourage increased activity with PT and OT Recheck CBC, renal panel tomorrow Renal function is stable. Recheck tomorrow. Consider MAGDALENA Thrasher 03/04/[address] Ramirez for oncology and hematology recommendations. Given history of hemolytic anemia and non-Hodgkin's lymphoma. Continue to monitor hemoglobin, today is 6.7. 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 When he for hour urine collection was ordered by oncology. She did receive Decadron 10 milligrams IV 1 today. Will continue to follow persistent hypercalcemia. She did receive Lasix 40 milligrams by mouth this morning. May consider a 2nd dose this afternoon. Encourage work PT/OT for strengthening Recheck CBC and BMP tomorrow morning to follow blood counts, renal function and electrolytes Discuss further plan of care with attending, Dr Danish PENG,ANALIA Zhao MD 03/04/17 2816: Subjective Date 03/04/2017-I reviewed this chart, the patient history, and the STAFF NUCLE[employer] OFFICER's/PA's documented findings as above. We discussed and formulated the assessment and plan as above with the additions below.-Dr. Peng Patient is seen this evening in her room. She was seen earlier today walking in the halls with physical therapy and appeared to be doing fairly well. This evening she is complaining of pain in her leg and itching all over. Her daughters relayed to the nurse that they are concerned that the Benadryl is causing behavioral and confusion issues. She does have Atarax to take for itching and so we will discontinue Benadryl. On exam the patient is alert and appears mildly confused. Chest reveals dry crackles bilaterally. Cardiovascular reveals a regular rate and rhythm. Right lower extremity is without edema, left lower extremity has continued lymphedema which appears to be unchanged from yesterday. Continue with current care plan. Discussed earlier today with Dr. Ramirez. Patient may be stable for dismissal to [facility] on Thursday after chemotherapy. We'll continue to monitor hemoglobin. Continue Decadron for hypercalcemia. SANTIAGO MCLEOD APRN March 04, 2017 15:01 ANALIA PENG MD March 04, 2017 18:19
--- NOTE | 2017-03-04 18:05 | NUR ---
SPOKE WITH PTS DAUGHTER NO AND DR HAUSER PT CONFUSED AT THIS TIME AND HAVING INCREASED BEHAVIORS OF AGITATION. DISCUSSED WITH DAUGHTER NO. NO STATED WHEN PT TAKES BENADRYL PT BECOMES MORE AGITATED AND WOULD LIKE THE BENADRYL TAKEN OFF OF HER EMAR. SPOKE WITH DR LEO. VERBAL ORDERS TO DISCONTINUE BENADRYL.
--- NOTE | 2017-03-04 18:39 | NUR ---
STATUS PT RESTING IN RECLINER WITH CHAIR ALARM ON AND CALL LIGHT IN REACH. PT DENIES NEEDS AT THIS TIME. ON 2L PER NC. COOPERATIVE AT THIS TIME. PT DID HAVE EPISODE OF ANXIETY AND AGITATION EARLIER WHICH WAS EASILY RESOLVED WHEN PT WAS ABLE TO CALL AND TALK TO HER DAUGHTER ON THE PHONE. WILL CONTINUE TO MONITOR
--- NOTE | 2017-03-04 20:10 | NUR ---
RESP CRACKLES BASES. PT DENIES DYSPNEA AT REST
[2017-03-04] MEDS: ATORVASTATIN 20 MG TABLET PO SCH (20:17)
--- NOTE | 2017-03-04 22:00 | NUR ---
NEURO CONFUSED TO PLACE DATE AND TIME. HAS PULLED IVL OUT OF L HAND, MINIMAL BLEEDING FROM SITE. DRESSING APPLIED. ATTEMPTS TO GET OUT OF BED BY SELF, ALARM SOUNDS. ASSISTED TO BSC, IS INCONTINENT OF LG. AMT. URINE. UNABLE TO CONTINUE 24 HR. URINE, WILL RESTART
[2017-03-05] VITALS (7 sets, daily range): BP systolic 103–135; BP diastolic 53–66; PULSE 60–63; RESP 16–20; TEMP 96.6–98.1; O2SAT 94–100
[2017-03-05 05:02] LABS: ALBUMIN 3.4 G/DL (3.5-5.0); ALBUMIN/GLOBULIN RATIO 1.8 RATIO (1.1-2.2); ALKALINE PHOSPHATASE 67 U/L (38-126); ALT (SGPT) 31 U/L (9-52); ANION GAP 10 MEQ/L (5-15); AST (SGOT) 28 U/L (14-36); BUN/CREATININE RATIO 46 RATIO (6-26); CALCIUM 11.6 MG/DL (8.4-10.2); CHLORIDE 96 MEQ/L (98-107); CO2 - CARBON DIOXIDE 36 MEQ/L (22-30); CREATININE 1.2 MG/DL (0.7-1.2); GLOMERULAR FILTRATION RATE 43; GLUCOSE 87 MG/DL (65-110); LDH 875 U/L (313-618); MAGNESIUM 1.8 MG/DL (1.6-2.3); PHOSPHORUS 4.6 MG/DL (2.5-4.5); POTASSIUM 3.7 MEQ/L (3.6-5); SODIUM 142 MEQ/L (134-144); TOTAL PROTEIN 5.3 G/DL (6.3-8.2); URIC ACID 5.6 MG/DL (2.5-7.5)
--- NOTE | 2017-03-05 05:26 | NUR ---
REST SLEEPS MUCH OF NIGHT, RESP. UNLABORED AT REST. REPOSITIONS SELF FOR COMFORT
[2017-03-05 05:50] LABS: ABSOLUTE RETICS # 0.1822 T/MM3 (0.0300-0.0900); HCT - HEMATOCRIT 20.5 % (36-46); HGB - HEMOGLOBIN 7.4 GM/DL (12-16); MEAN CORPUSCULAR HGB 42.8 UUG (26-34); MEAN CORPUSCULAR HGB CONC(MCHC 36.1 GM/DL (31-37); MEAN CORPUSCULAR VOLUME 118.5 UM3 (80-100); MEAN PLATELET VOLUME 12.3 UM3 (9.4-12.4); RED BLOOD COUNT 1.73 M/MM3 (4.00-5.20); RETICULOCYTE % 10.5 % (0.6-1.7); RETICULOCYTE HGB 39.8 PG (30.8-36.6); WBC - WHITE BLOOD COUNT 12.8 T/MM3 (4.5-11.0)
[2017-03-05] MEDS: LEVOTHYROXINE 25 MCG TABLET PO SCH (06:32)
[2017-03-05] MEDS: PANTOPRAZOLE 40 MG TABLET PO SCH ×2 (06:32→17:15)
[2017-03-05 06:50] LABS: EOSINOPHILS # (MANUAL) 0.3 T/MM3 (0-0.5); LYMPHOCYTES # (MANUAL) 1.5 T/MM3 (1-4.8); MONOCYTES # (MANUAL) 1.2 T/MM3 (0-0.8); NEUTROPHILS #(MANUAL)-ABSOLUTE 9.9 T/MM3 (1.8-7.7); NUCLEATED RED BLOOD CELLS 4; TOTAL CELLS COUNTED 100 %
[2017-03-05 06:51] LABS: ANISOCYTOSIS 1+; HOWELL-JOLLY BODIES 1+; POIKILOCYTOSIS 1+
[2017-03-05] MEDS: BUDESONIDE 0.25 MG/2 ML AEROSOL SCH ×2 (09:00→20:47)
[2017-03-05] MEDS: ARFORMOTEROL 15 MCG/2 ML AEROSOL SCH ×2 (09:00→20:47)
--- NOTE | 2017-03-05 09:09 | NUR ---
BRENT KENNEDY SPOKE WITH DAUGHTER ELISABET, IT IS STILL THE PLAN FOR MOM TO DC TO THE [facility] IN [place] WHEN SHE IS ABLE. TALKED WITH PHYSICAL THERAPY AND IT IS THE RECOMMENDATION PT TO GO BACK TO [facility]. MESSAGE LEFT FOR PHIL TO CALL BRENT FOR DC PLANS.
[2017-03-05] MEDS: ASPIRIN *EC* 81mg TABLET PO SCH (09:20)
[2017-03-05] MEDS: LORAZEPAM 0.5 MG TABLET PO SCH ×2 (09:20→21:09)
[2017-03-05] MEDS: ACETAMINOPHEN 325 MG TABLET PO SCH (09:21)
[2017-03-05] MEDS: PROPRANOLOL 20 MG TABLET PO SCH ×2 (09:25→21:09)
[2017-03-05] MEDS: FUROSEMIDE 40 MG TABLET PO SCH (09:26)
[2017-03-05] MEDS: FAMOTIDINE 20 MG TABLET PO SCH (09:26)
[2017-03-05] MEDS: ALLOPURINOL 100 MG TABLET PO SCH (09:26)
[2017-03-05] MEDS: DULOXETINE 60 MG CAPSULE PO SCH (09:26)
[2017-03-05] MEDS: FOLIC ACID 1 MG TABLET PO SCH (09:26)
[2017-03-05] MEDS: CLOPIDOGREL 75 MG TABLET PO SCH (09:26)
--- NOTE | 2017-03-05 10:46 | PNPDOC ---
TEZ PHELAN RAFITA 03/05/17 1046: Subjective Date DATE: 03/05/17 TIME: 10:45 Reclining in hospital bed, alone in room. Drowsy. Opens eyes when spoken to and gives brief replies. Denies fever, chills, night sweats. Denies cough or shortness of air. No nausea, vomiting, no new aches or pains. Feels leg is improving. Reports normal stool today. Normal voiding General: No fever, no night sweats Eyes: No redness, no pain, no diplopia ENT: No mouth sores, no trouble swallowing Cardiac: No chest pain no palpitations Pulmonary: No cough, no shortness of breath, no wheezing Abdomen: No pain, no nausea vomiting, no diarrhea or constipation : No urgency, frequency, dysuria, or hematuria Musculoskeletal: No arthritis, no myalgias. Positive swelling left leg Neurological: No headaches, no focal weakness Skin: No rash, no sores Psychiatric: No anxiety, no depression Objective Vital Signs Vital Signs 03/05/17 03/05/17 00:19 07:29 Temp 96.8 97.3 Pulse 61 60 Resp 16 18 B/P 120/65 135/66 Pulse Ox 94 99 O2 Delivery Nasal Cannula Nasal Cannula O2 Flow Rate 2.00 2.00 Height (Feet): 5 Height (Inches): 0.00 Weight (Kilograms): 46.500 General Alert, Orientated x 2, No Acute Distress Eyes (Brief) Eyes: FOUND: EOMI, PERRL, NOT FOUND: scleral icterus ENMT (Brief) ENMT: FOUND: mucosa moist, NOT FOUND: lesions Neck (Brief) Neck: NOT FOUND: adenopathy, tenderness Respiratory (Brief) Respiratory: FOUND: clear all fletcher, equal bilaterally Cardiovascular (Brief) Cardiac: FOUND: murmur (systolic murmur), regular rate, regular rhythm Abdomen (Brief) Abdominal: FOUND: BS normo active x4, soft, NOT FOUND: distended, tender Lymphatic (Brief) FOUND: lymphedema (left leg, appears slightly improved.) Musculoskeletal (Brief) FOUND: tenderness (left leg.), NOT FOUND: loss of motion Integumentary (Brief) FOUND: dry, pink Neurologic (Brief) FOUND: cranial 2-12 intact, NOT FOUND: motor (no acute motor deficit) Psychiatric (Brief) FOUND: alert, normal affect, oriented, other (drowsy) Laboratory Laboratory Tests Test 03/05/17 04:15 White Blood Count 12.8T/MM3 Red Blood Count 1.73M/MM3 Hemoglobin 7.4GM/DL Hematocrit 20.5% Mean Corpuscular Volume 118.5UM3 Mean Corpuscular Hemoglobin 42.8UUG Mean Corpuscular Hemoglobin Concent 36.1GM/DL RDW Standard Deviation 66.7FL Platelet Count 220T/MM3 Mean Platelet Volume 12.3UM3 Immature Granulocyte % (Auto) % Neutrophils (%) (Auto) % Lymphocytes (%) (Auto) % Monocytes (%) (Auto) % Eosinophils (%) (Auto) % Basophils (%) (Auto) % Absolute Immature Granulocyte (auto T/MM3 Absolute Neutrophils (auto) T/MM3 Absolute Lymphocytes (auto) T/MM3 Absolute Monocytes (auto) T/MM3 Absolute Eosinophils (auto) T/MM3 Absolute Basophils (auto) T/MM3 Neutrophils % (Manual) 77.0% Lymphocytes % (Manual) 12.0% Monocytes % (Manual) 9.0% Eosinophils % (Manual) 2.0% Absolute Neutrophils (Manual) 9.9T/MM3 Lymphocytes # (Manual) 1.5T/MM3 Monocytes # (Manual) 1.2T/MM3 Eosinophils # (Manual) 0.3T/MM3 Nucleated Red Blood Cells 4 Poikilocytosis 1+ Anisocytosis 1+ Clarke-Bevier Bodies 1+ Red Cell Morphology Comment Abnormal Absolute Reticulocyte Count 0.1822T/MM3 Percent Reticulocyte Count 10.5% Immature Reticulocyte Fraction 8.8% Reticulocyte Hgb Content (CHr) 39.8PG Reference Lab Test Name Sent out Turbidity < 20 Sodium Level 142MEQ/L Potassium Level 3.7MEQ/L Chloride Level 96MEQ/L Carbon Dioxide Level 36MEQ/L Anion Gap 10MEQ/L Blood Urea Nitrogen 55.0MG/DL Creatinine 1.2MG/DL Glomerular Filtration Rate Calc 43 BUN/Creatinine Ratio 46RATIO Glucose Level 87MG/DL Calculated Osmolality 287MOSM/KG Uric Acid 5.6MG/DL Calcium Level 11.6MG/DL Phosphorus Level 4.6MG/DL Magnesium Level 1.8MG/DL Total Bilirubin 0.60MG/DL Icterus Index < 2 Aspartate Amino Transf (AST/SGOT) 28U/L Alanine Aminotransferase (ALT/SGPT) 31U/L Alkaline Phosphatase 67U/L Lactate Dehydrogenase 875U/L Total Protein 5.3G/DL Albumin 3.4G/DL Globulin 1.9G/DL Albumin/Globulin Ratio 1.8RATIO Chemistry Specimen Hemolysis < 15 Assessment & Plan Assessment 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 Will give Rituxan weekly X 4-1st dose given as in -patient 02/27/17. AIHA hemoglobin 6.5. It appears to be stable. Reticulocyte count is 16%. This appears to be stabilizing in response to the Rituxan given on Thursday. We'll continue to follow without transfusion if possible. HGB 6.5, HCT 18.3 on , hemoglobin 7.4, hematocrit 20.5 today, 03/05/17. hypercalcemia related to the lymphoma. Should improve with steroids. Ca++ yesterday 10.9, Ca++ 11.1 on 03/03/17, and today calcium 11.6. x.03/03/17, chronic kidney disease, long-standing. Because she has a lambda light chain will obtain 24-hour urine-results pending. fatigue depression GERD Plan/Intensity of Service Continue supportive care. Follow calcium closely. Consider Zometa. Dr. Ramirez will see patient later today and discuss plan of care with Dr. Luevano. Code Status Do Not Resuscitate Hospital Course Summary Disclaimer The visit summary below is not to be considered part of the above Progress Note. Hospital Course Summary 02/[address] patient in outpatient observation status at [facility] under the care of Dr. Rodrigues. Start IV fluids secondary to the presyncope patient was having in filter tip inspector' s office. Obtain Doppler scan of left lower extremity to exclude possibility of blood clot. Most likely we are probably dealing with underlying lymph obstruction. However, in light of progression of edema, recheck Doppler is warranted. Will continue home medications. Will consult with Dr. Ramirez for oncological evaluation of her increased lower extremity edema as well as her anorexia. Check on pending laboratory - CMP, CBC, magnesium prealbumin TSH and UA were ordered at time of presentation. However, still pending. Initiate SCDs for DVT prevention. Cardiac telemetry will be obtained. Discussed code status with patient. Daughter reports she would want " everything done" but not wish to remain on machines. The patient will therefore be FULL CODE. Patient's care will be returned to Dr. uMro at time of discharge from [facility]. 02/27 ADMIT Doing okay. Some nausea this am. No ab pain. Breathing okay-needing O2, but not hurting with breathing or having cough/congestion. Still with diffuse itching. With need for chemotherapy to address her edema, will change admission status to inpatient. Change IVF to 1/2 NS at 75cc/hr to provide hydration and correct hypernatremia. PT/OT to help functional status. Monitor blood counts - likely need transfusion. Pharmacy reviewed home meds and corrected our med rec. Recheck BMP in am due to hypernatremia. Repeat CBC due to anemia and chemo. 02/28/17 Acute on chronic anemia - h&h down to 6.[address]. Peng has already ordered 2 units of blood, but due to antibodies the blood will be coming from [place]. Should arrive this afternoon. Lasix to be given in between units. Stool was negative for occult blood last night though patient reported "a few red stools" to oncology when they saw her in consultation. CAD with stent placed in 05/2016 - Cont ASA and Plavix. Platelets are normal at 238. Hypotension - SBP in 90s for much of yesterday. Improved this morning. Cont to hold metoprolol. Cont Inderal. HR upper 50s-60s. Weight has increased to 47.6 and she is nearly 3.6L fluid positive. If her BP remains stable today could probably DC IVF. CXR showed pulm fibrosis. Hypernatremia - resolved. Na 144. Not a candidate for anticoagulants for VTE ppx d/t severe anemia. 03/01/17 Acute encephalopathy/delirium, superimposed on dementia - moved to room 142 for safety; PRN dose of Haldol given last night. Acute on chronic anemia - having difficulty matching blood d/t antibodies. Dr. Tejeda aware - will round on the pt and complete transfusion orders today. Hypotension - BP marginal. Consider reducing Inderal; continue to hold metoprolol. Continue IVF, but decrease rate. Once BP stabilizes (expect improvement with blood transfusion), would like to DC IVF b/c of weight gain and being fluid positive. Renal function improving. Hypercalcemia - improved to 10.5. Dr. Tejeda - consider nephrology eval, Aredia or Zometa 03/02/17 Transfusion is on hold, will discuss further with Dr. Ramirez later today. Hemoglobin is 6.5, hematocrit 12.6. White count is 5.7. Iron level was normal at 70, TIBC low at 232, ferritin was high at 1440. Vitamin B12 was 916. Renal status is holding steady with BUN of 45 and creatinine 1.6. Hypercalcemia persists, calcium is 10.9 this morning. Low blood pressure: Continue to hold beta porfirio. Heart rate has not been tachycardic. 03/02/2017-I reviewed this chart, the patient history, and the TELETYPE OPERATOR's/PA's documented findings as above. We discussed and formulated the assessment and plan as above with the additions below.-Dr. Peng Patient states she's feeling okay. She denies any pain at this time. She denies shortness of breath. On exam she is alert and in no acute distress. Chest reveals some crackles in the lungs bilaterally. Cardiovascular reveals a regular rate and rhythm with a 4 /6 systolic murmur. Abdomen is soft and nontender. No edema in the right leg. Left leg has lymphedema with weeping. Lab today shows hemoglobin of 6.5. White count 5.7. Platelets are normal. BUN/creatinine are fairly stable. Calcium is still elevated at 10.9 today. We can hold IV fluids and monitor creatinine and renal function. Hopefully, Decadron will help with elevated calcium. Continue to monitor lab work. Fortunately, hemoglobin is stable. 03/03 Plan IV fluids held yesterday. Patient is taking by mouth well. Calcium is up slightly to 11.1. Recheck tomorrow. Continue Decadron. Will discuss possible IVIG with oncology service. Encourage increased activity with PT and OT Recheck CBC, renal panel tomorrow Renal function is stable. Recheck tomorrow. Consider DC Price 03/04/[address] Ramirez for oncology and hematology recommendations. Given history of hemolytic anemia and non-Hodgkin's lymphoma. Continue to monitor hemoglobin, today is 6.7. Seat Covers Trimmer continues to trend down at 1.3 , patient has known chronic kidney disease. When he for hour urine collection was ordered by oncology. She did receive Decadron 10 milligrams IV 1 today. Will continue to follow persistent hypercalcemia. She did receive Lasix 40 milligrams by mouth this morning. May consider a 2nd dose this afternoon. Encourage work PT/OT for strengthening Recheck CBC and BMP tomorrow morning to follow blood counts, renal function and electrolytes Discuss further plan of care with attending, SABINO Bains 03/05/17 3743: Subjective Leg is less swollen, feeling better. Unable to do 24 urine collection so Thrasher was placed. Objective Cardiovascular (Brief) Cardiac: FOUND: pedal edema (left leg 2+) Assessment & Plan Assessment Patient examined, chart reviewed, discussed with Dr. Peng. Hemoglobin is improving with current value being 7.4. Reticulocyte count is decreasing at 10% yesterday. Calcium is increasing at 11.6. Discussed the use of Zometa to lower calcium. 24-hour urine collection is in process secondary to Thrasher being placed to collect urine. She is due for Rituxan tomorrow Plan/Intensity of Service Discussed Zometa with Dr. Peng. Would use 3 mg. Due for Rituxan tomorrow. TEZ PHELAN APRN March 05, 2017 10:46 SABINO RAMIREZ March 05, 2017 16:43
[2017-03-05] MEDS ORDERED: DEXAMETHASONE 4mg/ml - 1ml INJECTION IV SCH (14:00)
[2017-03-05] MEDS: NORMAL SALINE IV SCH (14:34)
[2017-03-05] MEDS: DEXAMETHASONE IV SCH (14:34)
--- NOTE | 2017-03-05 17:32 | PNPDOC ---
PAULINE SNOW MANAGEMENT ARCHITECT 03/05/17 1223: Subjective Date DATE: 03/05/17 TIME: 12:20 Subjective Erika is seen in her room on Medical. She denies chest pain or pressure, palpitations, dyspnea or dizziness. States she is weak and has abdominal pain Objective Vital Signs Vital signs Vital Signs 03/05/17 03/05/17 07:29 11:35 Temp 97.3 98.1 Pulse 60 60 Resp 18 18 B/P 135/66 104/53 Pulse Ox 99 94 O2 Delivery Nasal Cannula Nasal Cannula O2 Flow Rate 2.00 2.00 Telemetry Rhythm: Sinus Rhythm Height (Feet): 5 Height (Inches): 0.00 Weight (Kilograms): 46.500 General Alert, Orientated x 3, Cooperative, No Acute Distress ENMT (Brief) mucosa moist Neck (Brief) NOT FOUND: JVD, carotid bruits Respiratory (Brief) clear all fletcher, equal bilaterally, NOT FOUND: rales, wheezes Cardiovascular (Brief) murmur, pedal edema (left leg), regular rate, regular rhythm, NOT FOUND: click, gallop, rub Abdomen (Brief) BS normo active x4, soft, NOT FOUND: tender Integumentary (Brief) dry, pink, warm Psychiatric (Brief) alert, attentive, oriented Laboratory Laboratory Laboratory Tests Test 03/04/17 04:48 03/04/17 10:35 03/05/17 04:15 White Blood Count 10.5T/MM3 12.8T/MM3 Red Blood Count 1.63M/MM3 1.73M/MM3 Hemoglobin 6.7GM/DL 7.4GM/DL Hematocrit 19.4% 20.5% Mean Corpuscular Volume 119.0UM3 118.5UM3 Mean Corpuscular Hemoglobin 41.1UUG 42.8UUG Mean Corpuscular Hemoglobin Concent 34.5GM/DL 36.1GM/DL RDW Standard Deviation 69.1FL 66.7FL Platelet Count 216T/MM3 220T/MM3 Mean Platelet Volume 12.1UM3 12.3UM3 Neutrophils % (Manual) 81.0% 77.0% Lymphocytes % (Manual) 16.0% 12.0% Monocytes % (Manual) 3.0% 9.0% Absolute Neutrophils (Manual) 8.5T/MM3 9.9T/MM3 Lymphocytes # (Manual) 1.7T/MM3 1.5T/MM3 Monocytes # (Manual) 0.3T/MM3 1.2T/MM3 Nucleated Red Blood Cells 2 4 Poikilocytosis 1+ 1+ Anisocytosis 1+ 1+ Red Cell Morphology Comment Abnormal Abnormal Turbidity < 20 < 20 Sodium Level 143MEQ/L 142MEQ/L Potassium Level 4.0MEQ/L 3.7MEQ/L Chloride Level 99MEQ/L 96MEQ/L Carbon Dioxide Level 34MEQ/L 36MEQ/L Anion Gap 10MEQ/L 10MEQ/L Blood Urea Nitrogen 51.0MG/DL 55.0MG/DL Creatinine 1.3MG/DL 1.2MG/DL Glomerular Filtration Rate Calc 39 43 BUN/Creatinine Ratio 39RATIO 46RATIO Glucose Level 91MG/DL 87MG/DL Calculated Osmolality 289MOSM/KG 287MOSM/KG Calcium Level 11.4MG/DL 11.6MG/DL Phosphorus Level 4.8MG/DL 4.6MG/DL Icterus Index < 2 < 2 Albumin 3.1G/DL 3.4G/DL Chemistry Specimen Hemolysis < 15 < 15 Immature Granulocyte % (Auto) % Neutrophils (%) (Auto) % Lymphocytes (%) (Auto) % Monocytes (%) (Auto) % Eosinophils (%) (Auto) % Basophils (%) (Auto) % Absolute Immature Granulocyte (auto T/MM3 Absolute Neutrophils (auto) T/MM3 Absolute Lymphocytes (auto) T/MM3 Absolute Monocytes (auto) T/MM3 Absolute Eosinophils (auto) T/MM3 Absolute Basophils (auto) T/MM3 Eosinophils % (Manual) 2.0% Eosinophils # (Manual) 0.3T/MM3 Clarke-Turrell Bodies 1+ Absolute Reticulocyte Count 0.1822T/MM3 Percent Reticulocyte Count 10.5% Immature Reticulocyte Fraction 8.8% Reticulocyte Hgb Content (CHr) 39.8PG Reference Lab Test Name Sent out Uric Acid 5.6MG/DL Magnesium Level 1.8MG/DL Total Bilirubin 0.60MG/DL Aspartate Amino Transf (AST/SGOT) 28U/L Alanine Aminotransferase (ALT/SGPT) 31U/L Alkaline Phosphatase 67U/L Lactate Dehydrogenase 875U/L Total Protein 5.3G/DL Globulin 1.9G/DL Albumin/Globulin Ratio 1.8RATIO Laboratory Tests 5/11/17 04:15 Laboratory Tests 03/05/17 04:15 Medications Current Medications Sodium Chloride (Normal Saline IV) 1,000 ml @ 100 mls/hr Q10H IV Last administered on 02/27/17 06:00; Start 02/26/17 at 17:15; Stop 02/27/17 at 11:36; Status DC Allopurinol (ZYLOPRIM 300 mg) 300 mg DAILY PO Last administered on 02/27/17 08: 43; Start 02/27/17 at 09:00; Stop 02/27/17 at 13:21; Status DC Aspirin (Ecotrin) 81 mg DAILY PO Last administered on 03/05/17 09:20; Start at 09:00 Atorvastatin Calcium (LIPITOR 20 mg) 20 mg HS PO Last administered on 20:17; Start 02/26/17 at 22:00 Budesonide (PULMICORT 0.25mg/2ml) 0.25 mg BID AEROSOL Last administered on 03/04 19:13; Start 02/26/17 at 21:00 Clopidogrel Bisulfate (Plavix) 75 mg DAILY PO Last administered on 03/05/17 09 :26; Start 02/27/17 at 09:00 Duloxetine HCl (Cymbalta) 60 mg DAILY PO Last administered on 03/05/17 09:26; Start 02/27/17 at 09:00 Famotidine (Pepcid) 20 mg DAILY PO Last administered on 03/05/17 09:26; Start 02/27/17 at 09:00 Folic Acid (Folate) 1 mg DAILY PO Last administered on 03/05/17 09:26; Start 02/27/17 at 09:00 Hydroxyzine HCl (Atarax) 25 mg QID PRN PO ITCHING Last administered on 13:32; Start 02/26/17 at 19:45 Hyoscyamine Sulfate (Levsin Sl) 0.125 mg Q4H PRN SL SECRETIONS; Start 02/26/17 at 19:45 Levothyroxine Sodium (Synthroid) 25 mcg ACB PO Last administered on 03/05/17 06:32; Start 02/27/17 at 06:30 Lorazepam (Ativan) 0.5 mg BID PO Last administered on 03/05/17 09:20; Start at 21:00 Metoprolol Succinate (Toprol Xl) 25 mg DAILY PO Last administered on 02/27/17 08:45; Start 02/27/17 at 09:00; Status Future Hold Pantoprazole Sodium (Protonix) 40 mg BID PO Last administered on 02/26/17 20:11 ; Start 02/26/17 at 21:00; Stop 02/27/17 at 05:40; Status DC Propranolol HCl (Inderal) 60 mg BID PO Last administered on 03/05/17 09:25; Start 02/27/17 at 09:00; Status Future hold Albuterol Sulfate (Proventil 2.5 Mg/3 ml) 2.5 mg Q4HR PRN AEROSOL Last administered on 02/26/17 21:03; Start 02/26/17 at 20:30 Pantoprazole Sodium 40 mg 40 mg ACBID PO Last administered on 03/05/17 06:32; Start 02/27/17 at 06:30 Sodium Chloride (0.45% NS) 1,000 ml @ 60 mls/hr [id number] IV Last administered on 03/02/17 07:24; Start 02/27/17 at 11:45; Status Future Hold Allopurinol 100 mg 100 mg DAILY PO Last administered on 03/05/17 09:26; Start 02/28/17 at 09:00 Rituximab/Sodium Chloride (Rituxan/NS) 540 ml @ 50 mls/hr [id number] ONCE IV Last administered on 02/27/17 14:38; Start 02/27/17 at 15:15; Stop 02/28/17 at 02: 02; Status DC Hydrocortisone Sodium Succinate (Solu-Cortef) 100 mg PRN PRN IV HYPERSENSITIVITY; Start 02/27/17 at 14:30 Methylprednisolone Sodium Succinate 125 mg 125 mg PRN PRN IV HYPERSENSITIVITY; Start 02/27/17 at 14:30 Sodium Chloride (NS) 500 ml @ 0 mls/hr Q0M IV ; Start 02/28/17 at 08:37 Furosemide (Lasix) 20 mg O ONCE IV ; Start 02/28/17 at 08:45; Stop 02/28/17 at 09 :19; Status DC Acetaminophen (Tylenol Regular Strength) 650 mg O ONCE PO ; Start 02/28/17 at 08 :45; Stop 02/28/17 at 09:19; Status DC Diphenhydramine HCl (Benadryl) 25 mg O ONCE PO ; Start 02/28/17 at 08:45; Stop 02/28/17 at 09:19; Status DC Arformoterol Tartrate (Brovana) 15 mcg BID AEROSOL Last administered on 19:13; Start 02/28/17 at 21:00 Haloperidol Lactate (Haldol 5 Mg/ml Inj) 0.5 mg Q4H PRN IV AGITATION Last administered on 02/28/17 20:33; Start 02/28/17 at 18:45 Ondansetron HCl (Zofran) 4 mg Q6H PRN IV NAUSEA &/OR VOMITING Last administered on 03/01/17 00:49; Start 03/01/17 at 00:45 Oxycodone/ Acetaminophen (Percocet 5/325) 1 tab Q4H PRN PO ; Start 03/02/17 at 23:00; Stop 03/02/17 at 23:10; Status DC Morphine Sulfate (Morphine) 2 mg Q4H PRN IV PAIN; Start 03/02/17 at 23:00; Stop 03/02/17 at 23:10; Status DC Dexamethasone Sodium Phosphate 10 mg 10 mg O ONCE IV ; Start 03/03/17 at 12:15; Stop 03/03/17 at 12:16; Status UNV Dexamethasone Sodium Phosphate/ Sodium Chloride (Decadron/NS) 52.5 ml @ 200 mls /hr O ONCE IV Last administered on 03/03/17 13:08; Start 03/03/17 at 13:00; Stop 03/03/17 at 13:15; Status DC Dexamethasone Sodium Phosphate (Decadron) 10 mg O ONCE IV Last administered on 03/04/17 08:16; Start 03/04/17 at 07:30; Stop 03/04/17 at 07:54; Status DC Assessment & Plan Problems: (1) NHL (non-Hodgkin's lymphoma) Status: Chronic Qualifiers: Non-Hodgkin lymphoma type: unspecified type Lymphoma site: unspecified region Qualified Codes: C85.90 - Non-Hodgkin lymphoma, unspecified, unspecified site Assessment & Plan: Received Chemotherapy on 02/27/17 (2) Anemia Onset Date: 05/03/2014 Status: Acute Qualifiers: Hemolytic anemia type: acquired, autoimmune, other Assessment & Plan: Unable to transfuse due to antibodies (3) 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 Will check Q 6 months. Last SANDRA showed EF of 55% in 01/2016 (4) Atherosclerotic heart disease of [place] coronary artery without angina pectoris Status: Chronic Qualifiers: [place] vs. transplanted heart: [place] heart Qualified Codes: I25.10 - Atherosclerotic heart disease of [place] coronary artery without angina pectoris Assessment & Plan: Heart cath with Stent to Circ 05/2016. Continue current antiplatelet therapy of Plavix and Aspirin, routine monitoring. (5) Non-rheumatic tricuspid valve insufficiency Status: Chronic Assessment & Plan: routine monitoring (6) Essential hypertension Status: Chronic Assessment & Plan: Well controlled on medical therapy, continue current therapy of Lasix and Propranolol. hold Metoprolol for now (7) Mixed hyperlipidemia Status: Chronic Assessment & Plan: Continue Atorvastatin (8) Chronic kidney disease, unspecified Status: Chronic Assessment & Plan: Continue Plavix and Aspirin, continue Lasix, and Propranolol and hold Metoprolol. Continue Atorvastatin. (9) H/O mitral valve repair Status: Chronic (10) H/O aortic valve replacement with porcine valve Status: Chronic Plan/Intensity of Service Hypotensive: Continue current therapy of Lasix and Propranolol. hold Metoprolol for now, may need to adjust propranolol Continue current antiplatelet therapy of Plavix and Aspirin, [employer] Bi-V/P checked in office 11/2016. Will check Q 6 months. Last SANDRA showed EF of 55% in 01/2016. 03/03/17 BP improved, no cardiac complaints, okay to discharge from Cardiology standpoint. 03/04/17 States doesn't feel good today. No change from Cardiology standpoint. 03/05/17 Feels better today, no changes to plan of care Thank you for allowing us to participate in the care of this patient JULIA SHEA MD 03/09/17 1206: Assessment & Plan Plan/Intensity of Service After examining the patient I agree with the above assessment. I am involved in the formulation of the patient's plan of care. PAULINE SNOW APRN March 05, 2017 12:23 JULIA SHEA MD March 09, 2017 12:06
--- NOTE | 2017-03-05 19:51 | NUR ---
SUMMARY SHIFT PT HAS BEEN ORIENTED TO HER SELF TODAY. IV SITE IS IN THE RIGHT UPPER ARM. PT GOT UP TO CHAIR FOR MEALS. PT DID NOT HAVE ANY PROBLEMS SWALLOWING HER MEDS. PT AMBULATED IN THE [facility] THIS AFTERNOON. PT GETS UP WITH X1 ASSIST, GAIT BELT AND WALKER. TALKED TO DAUGHTER ABOUT NEW ORDERS AND MEDICATIONS.
[2017-03-05] MEDS: ATORVASTATIN 20 MG TABLET PO SCH (21:11)
--- NOTE | 2017-03-05 21:15 | NUR ---
ATARAX 25 mg. given PO for prevention of itching. Patient is alert and orientated. Answers questions appropriately and initiates appropriate questions.
--- NOTE | 2017-03-05 21:38 | PNPDOC ---
Subjective Date DATE: 03/05/17 TIME: 21:31 Subjective The patient states she's feeling okay this evening. She states she occasionally feels short of breath but not now. She denies any other complaints. She denies any pain at this time. Objective Vital Signs Vital signs Vital Signs Date Time Temp Pulse Resp B/P Pulse Ox O2 Delivery O2 Flow Rate FiO2 03/05/17 21:02 97.4 60 20 108/65 96 Nasal Cannula 2.00 GEN-alert, no acute distress CV-regular rate and rhythm with a 4/6 systolic murmur CHEST-mild crackles bilaterally ABD-soft, nontender, nondistended with positive bowel sounds -Thrasher in place with good urine output EXT-left leg edema mildly improved NEURO-mild dementia SKIN-warm and dry and without rashes Telemetry Rhythm: Sinus Rhythm Height (Feet): 5 Height (Inches): 0.00 Weight (Kilograms): 46.500 Laboratory Laboratory Item Value Date Time Calcium Level 11.6 MG/DL H 03/05/17 0415 Calcium Level 11.4 MG/DL H 03/04/17 0448 Calcium Level 11.1 MG/DL H 03/03/17 0432 Calcium Level 10.9 MG/DL H 03/02/17 0505 Calcium Level 10.5 MG/DL H 03/01/17 0349 Calcium Level 10.8 MG/DL H 02/28/17 0410 Calcium Level 10.9 MG/DL H 02/27/17 0453 Calcium Level 10.9 MG/DL H 02/26/171999 Laboratory Tests 03/04/17 04:48 03/05/17 04:15 Laboratory Tests 03/04/17 04:48 03/05/17 04:15 Assessment & Plan Problems: (1) NHL (non-Hodgkin's lymphoma) Status: Chronic Qualifiers: Non-Hodgkin lymphoma type: unspecified type Lymphoma site: unspecified region Qualified Codes: C85.90 - Non-Hodgkin lymphoma, unspecified, unspecified site Assessment & Plan: Relapsed - Chemo initiated on 02/27 (2) Edema of left lower extremity Status: Acute Assessment & Plan: Left lower - lymph obstruction secondary to relapsed NHL (3) Anemia Onset Date: 05/03/2014 Status: Acute Qualifiers: Hemolytic anemia type: acquired, autoimmune, other (4) Fatigue Status: Acute Qualifiers: Encounter type: initial encounter (5) Anorexia Status: Acute (6) Generalized pruritus Status: Acute (7) Hypernatremia Status: Resolved Assessment & Plan: POA (8) CAD (coronary artery disease) Status: Chronic Qualifiers: Coronary Disease-Associated Artery/Lesion type: [place] artery [place] vs. transplanted heart: [place] heart Associated angina: without angina Qualified Codes: I25.10 - Atherosclerotic heart disease of [place] coronary artery without angina pectoris Assessment & Plan: Heart cath 05/2016 - stent to Circ 05/2016. Continue Plavix and Aspirin (9) Hypertension Status: Chronic Qualifiers: Hypertension type: essential hypertension Qualified Codes: I10 - Essential (primary) hypertension (10) Mixed hyperlipidemia Status: Chronic (11) Presence of automatic implantable cardioverter-defibrillator Status: Chronic (12) Non-rheumatic tricuspid valve insufficiency Status: Chronic (13) Nonrheumatic aortic valve stenosis Status: Chronic (14) GERD (gastroesophageal reflux disease) Status: Chronic Qualifiers: Esophagitis presence: esophagitis presence not specified Qualified Codes: K21.9 - Gastro-esophageal reflux disease without esophagitis (15) Depression Status: Chronic Qualifiers: Depression Type: unspecified Qualified Codes: F32.9 - Major depressive disorder, single episode, unspecified (16) Anxiety Status: Chronic (17) Vascular dementia Status: Chronic Qualifiers: Dementia behavioral disturbance: without behavioral disturbance Qualified Codes: F01.50 - Vascular dementia without behavioral disturbance (18) Osteoarthritis Status: Chronic Qualifiers: Osteoarthritis location: multiple joints Osteoarthritis type: primary Qualified Codes: M15.0 - Primary generalized (osteo)arthritis (19) Gait instability Status: Chronic (20) Debility Status: Acute (21) Hypercalcemia Assessment Non-Hodgkin's lymphoma relapsed, chemotherapy it initiated 02/27/2017 Lymphedema left leg secondary to non-Hodgkin's lymphoma Autoimmune Hemolytic anemia Pulmonary fibrosis-chronic O2 at 2-3 L COPD Coronary artery disease with a stent placed in May 2016 Pacemaker (daughter states she does not have a defibrillator) Leg pains with activity likely secondary to anemia Chronic kidney disease Hypercalcemia-trending up recently Pruritus likely secondary to non-Hodgkin's lymphoma Protein calorie malnutrition Hypernatremia-resolved History of GI bleed-recent Hemoccult negative Vascular dementia Hypertension Plan/Intensity of Service 03/05/17 Hemoglobin is continuing to improve and is now 7.4. We considered getting Zometa for hypercalcemia but with creatinine clearance of only 25 it was felt that the risks outweighed the benefits at this time. Continue on Decadron for now Continue to monitor renal function, creatinine is down to 1.2 today. Continue daily Lasix and monitor Encourage work PT/OT for strengthening Recheck CBC and BMP tomorrow morning to follow blood counts, renal function and electrolytes Possible discharge tomorrow. Patient does appear stable overall Code Status Do Not Resuscitate Hospital Course Summary Disclaimer The hospital course summary below is not to be considered part of the above Progress Note. Hospital Course Summary 02/[address] patient in outpatient observation status at [facility] under the care of Dr. Rodrigues. Start IV fluids secondary to the presyncope patient was having in mechanical engineering officer' s office. Obtain Doppler scan of left lower extremity to exclude possibility of blood clot. Most likely we are probably dealing with underlying lymph obstruction. However, in light of progression of edema, recheck Doppler is warranted. Will continue home medications. Will consult with Dr. Ramirez for oncological evaluation of her increased lower extremity edema as well as her anorexia. Check on pending laboratory - CMP, CBC, magnesium prealbumin TSH and UA were ordered at time of presentation. However, still pending. Initiate SCDs for DVT prevention. Cardiac telemetry will be obtained. Discussed code status with patient. Daughter reports she would want " everything done" but not wish to remain on machines. The patient will therefore be FULL CODE. Patient's care will be returned to Dr. Muro at time of discharge from [facility]. 02/27 ADMIT Doing okay. Some nausea this am. No ab pain. Breathing okay-needing O2, but not hurting with breathing or having cough/congestion. Still with diffuse itching. With need for chemotherapy to address her edema, will change admission status to inpatient. Change IVF to 1/2 NS at 75cc/hr to provide hydration and correct hypernatremia. PT/OT to help functional status. Monitor blood counts - likely need transfusion. Pharmacy reviewed home meds and corrected our med rec. Recheck BMP in am due to hypernatremia. Repeat CBC due to anemia and chemo. 02/28/17 Acute on chronic anemia - h&h down to 6.[address] Dr. Peng has already ordered 2 units of blood, but due to antibodies the blood will be coming from [place]. Should arrive this afternoon. Lasix to be given in between units. Stool was negative for occult blood last night though patient reported "a few red stools" to oncology when they saw her in consultation. CAD with stent placed in 05/2016 - Cont ASA and Plavix. Platelets are normal at 238. Hypotension - SBP in 90s for much of yesterday. Improved this morning. Cont to hold metoprolol. Cont Inderal. HR upper 50s-60s. Weight has increased to 47.6 and she is nearly 3.6L fluid positive. If her BP remains stable today could probably DC IVF. CXR showed pulm fibrosis. Hypernatremia - resolved. Na 144. Not a candidate for anticoagulants for VTE ppx d/t severe anemia. 03/01/17 Acute encephalopathy/delirium, superimposed on dementia - moved to room 142 for safety; PRN dose of Haldol given last night. Acute on chronic anemia - having difficulty matching blood d/t antibodies. Dr. Tejeda aware - will round on the pt and complete transfusion orders today. Hypotension - BP marginal. Consider reducing Inderal; continue to hold metoprolol. Continue IVF, but decrease rate. Once BP stabilizes (expect improvement with blood transfusion), would like to DC IVF b/c of weight gain and being fluid positive. Renal function improving. Hypercalcemia - improved to 10.5. Dr. Tejeda - consider nephrology eval, Aredia or Zometa 03/02/17 Transfusion is on hold, will discuss further with Dr. Ramirez later today. Hemoglobin is 6.5, hematocrit 12.6. White count is 5.7. Iron level was normal at 70, TIBC low at 232, ferritin was high at 1440. Vitamin B12 was 916. Renal status is holding steady with BUN of 45 and creatinine 1.6. Hypercalcemia persists, calcium is 10.9 this morning. Low blood pressure: Continue to hold beta porfirio. Heart rate has not been tachycardic. 03/02/2017-I reviewed this chart, the patient history, and the HOUSE FURNISHINGS SUPERVISOR's/PA's documented findings as above. We discussed and formulated the assessment and plan as above with the additions below.-Dr. Peng Patient states she's feeling okay. She denies any pain at this time. She denies shortness of breath. On exam she is alert and in no acute distress. Chest reveals some crackles in the lungs bilaterally. Cardiovascular reveals a regular rate and rhythm with a 4 /6 systolic murmur. Abdomen is soft and nontender. No edema in the right leg. Left leg has lymphedema with weeping. Lab today shows hemoglobin of 6.5. White count 5.7. Platelets are normal. BUN/creatinine are fairly stable. Calcium is still elevated at 10.9 today. We can hold IV fluids and monitor creatinine and renal function. Hopefully, Decadron will help with elevated calcium. Continue to monitor lab work. Fortunately, hemoglobin is stable. 03/03 Plan IV fluids held yesterday. Patient is taking by mouth well. Calcium is up slightly to 11.1. Recheck tomorrow. Continue Decadron. Will discuss possible IVIG with oncology service. Encourage increased activity with PT and OT Recheck CBC, renal panel tomorrow Renal function is stable. Recheck tomorrow. Consider MAGDALENA Thrasher 03/04/[address] Ramirez for oncology and hematology recommendations. Given history of hemolytic anemia and non-Hodgkin's lymphoma. Continue to monitor hemoglobin, today is 6.7. Enterprise Application Analyst continues to trend down at 1.3 , patient has known chronic kidney disease. When he for hour urine collection was ordered by oncology. She did receive Decadron 10 milligrams IV 1 today. Will continue to follow persistent hypercalcemia. She did receive Lasix 40 milligrams by mouth this morning. May consider a 2nd dose this afternoon. Encourage work PT/OT for strengthening Recheck CBC and BMP tomorrow morning to follow blood counts, renal function and electrolytes Discuss further plan of care with attending, ANALIA Winn MD March 05, 2017 21:37
[2017-03-06] VITALS (10 sets, daily range): BP systolic 102–125; BP diastolic 49–65; PULSE 60–68; RESP 16–20; TEMP 96–98.2; O2SAT 86–100
[2017-03-06] MEDS: ONDANSETRON 4mg/2ml INJECTION IV PRN ×2 (02:18→10:48)
--- NOTE | 2017-03-06 02:27 | NUR ---
Awakens. Taking blankets off; c/o of being too warm. Nauseated. sweaty. Denies pain. Telemetry continues to show pacemaker spike with q PQRS. V/S checked: 97.8; 68; 20; 120/70; SPO2 99% O2@2/L NC. Blood Sugar check 138. ZOFRAN 4 mg. given IV for nausea. Settles down. Goes back to sleep.
[2017-03-06 05:06] LABS: ALBUMIN 3.2 G/DL (3.5-5.0); ALBUMIN/GLOBULIN RATIO 1.5 RATIO (1.1-2.2); ALKALINE PHOSPHATASE 56 U/L (38-126); ALT (SGPT) 30 U/L (9-52); ANION GAP 9 MEQ/L (5-15); AST (SGOT) 29 U/L (14-36); BUN/CREATININE RATIO 52 RATIO (6-26); CALCIUM 11.2 MG/DL (8.4-10.2); CHLORIDE 94 MEQ/L (98-107); CO2 - CARBON DIOXIDE 38 MEQ/L (22-30); CREATININE 1.1 MG/DL (0.7-1.2); GLOMERULAR FILTRATION RATE 47; GLUCOSE 110 MG/DL (65-110); LDH 893 U/L (313-618); MAGNESIUM 1.7 MG/DL (1.6-2.3); POTASSIUM 3.9 MEQ/L (3.6-5); SODIUM 141 MEQ/L (134-144); TOTAL PROTEIN 5.4 G/DL (6.3-8.2)
[2017-03-06 05:31] LABS: HCT - HEMATOCRIT 23.1 % (36-46); HGB - HEMOGLOBIN 7.2 GM/DL (12-16); MEAN CORPUSCULAR HGB 37.3 UUG (26-34); MEAN CORPUSCULAR HGB CONC(MCHC 31.2 GM/DL (31-37); MEAN CORPUSCULAR VOLUME 119.7 UM3 (80-100); MEAN PLATELET VOLUME 12.2 UM3 (9.4-12.4); RED BLOOD COUNT 1.93 M/MM3 (4.00-5.20); WBC - WHITE BLOOD COUNT 9.2 T/MM3 (4.5-11.0)
[2017-03-06 05:42] LABS: ABSOLUTE RETICS # 0.1346 T/MM3 (0.0300-0.0900); RETICULOCYTE % 8.7 % (0.6-1.7); RETICULOCYTE HGB 38.2 PG (30.8-36.6)
[2017-03-06 06:23] LABS: LYMPHOCYTES # (MANUAL) 1.3 T/MM3 (1-4.8); MONOCYTES # (MANUAL) 0.2 T/MM3 (0-0.8); NEUTROPHILS #(MANUAL)-ABSOLUTE 7.7 T/MM3 (1.8-7.7); NUCLEATED RED BLOOD CELLS 1; TOTAL CELLS COUNTED 100 %
[2017-03-06] MEDS: LEVOTHYROXINE 25 MCG TABLET PO SCH (06:23)
[2017-03-06] MEDS: PANTOPRAZOLE 40 MG TABLET PO SCH ×2 (06:23→17:37)
[2017-03-06 06:24] LABS: ANISOCYTOSIS 1+; POIKILOCYTOSIS 2+
[2017-03-06 06:25] LABS: HOWELL-JOLLY BODIES 1+; OVALOCYTES 1+
--- NOTE | 2017-03-06 06:46 | NUR ---
END OF SHIFT SUMMARY: Remains alert and orientated ,when awake ,thru out this shift. No futher c/o of feeling too warm or feeling nauseated. Thrasher cath patent; drains to DD bag; then, emptied into colection jug for [address] collection per Dr[address] santiago. Cathater and collection jug maintained in [place] of ice through out the night. Swelling remains in left leg. Denies pain while she rests in bed. ATARAX 25 mg. given twice during the night to remedy itching. Takes pills whole; no swallowing difficulty. Daughter called during the night to check on her mother. Daughter concerned whether or not her mother will recieve chemotherapy today. Reassured her I will speak with day shift Nurse about Chemotherapy.
[2017-03-06] MEDS: ARFORMOTEROL 15 MCG/2 ML AEROSOL SCH (07:13)
[2017-03-06] MEDS: BUDESONIDE 0.25 MG/2 ML AEROSOL SCH (07:13)
[2017-03-06] MEDS: ASPIRIN *EC* 81mg TABLET PO SCH (09:28)
[2017-03-06] MEDS: LORAZEPAM 0.5 MG TABLET PO SCH (09:28)
[2017-03-06] MEDS: FOLIC ACID 1 MG TABLET PO SCH (09:28)
[2017-03-06] MEDS: DULOXETINE 60 MG CAPSULE PO SCH (09:28)
[2017-03-06] MEDS: PROPRANOLOL 20 MG TABLET PO SCH (09:28)
[2017-03-06] MEDS: FAMOTIDINE 20 MG TABLET PO SCH (09:29)
[2017-03-06] MEDS: CLOPIDOGREL 75 MG TABLET PO SCH (09:29)
[2017-03-06] MEDS: ALLOPURINOL 100 MG TABLET PO SCH (09:29)
[2017-03-06] MEDS: FUROSEMIDE 40 MG TABLET PO SCH (09:29)
--- NOTE | 2017-03-06 10:40 | NUR ---
24 hr urine collection ends purcell empited and jug to lab.
--- NOTE | 2017-03-06 10:40 | PNPDOC ---
TEZ PHELAN BALANCE STAFF INSPECTOR 03/06/17 1040: Subjective Date DATE: 03/06/17 TIME: 10:39 Reclining in hospital bed, alone in room. She is alert and oriented to place/ person. Continues with intermittent left lower extremity pain. Denies fever or chills, states feels cold frequently. Denies cough or shortness of air. No diarrhea, constipation or abdominal pain. Is eating 50-75% of offered meals. Indwelling Thrasher catheter. Normal bowel movement today General: No fever, no night sweats Eyes: No redness, no pain, no diplopia ENT: No mouth sores, no trouble swallowing Cardiac: No chest pain no palpitations Pulmonary: No cough, no shortness of breath, no wheezing Abdomen: No pain, no nausea vomiting, no diarrhea or constipation : No urgency, frequency, dysuria, or hematuria Musculoskeletal: left leg pain intermittently Neurological: No headaches, no focal weakness Skin: No rash, no sores Psychiatric: No anxiety, no depression Objective Vital Signs Vital Signs 03/06/17 03/06/17 03/06/17 03/06/17 00:07 07:10 07:14 07:17 Temp 98.2 Pulse 60 97 60 Resp 16 18 B/P 116/59 Pulse Ox 100 86 92 O2 Delivery Nasal Cannula Nasal Cannula O2 Flow Rate 2.00 2.00 03/06/17 03/06/17 07:43 08:00 Temp 97.8 Pulse 63 68 Resp 16 20 B/P 121/65 Pulse Ox 99 O2 Delivery Nasal Cannula O2 Flow Rate 2.00 Height (Feet): 5 Height (Inches): 0.00 Weight (Kilograms): 44.300 General Alert, Orientated x 2, No Acute Distress Eyes (Brief) Eyes: FOUND: EOMI, PERRL, NOT FOUND: scleral icterus ENMT (Brief) ENMT: FOUND: mucosa moist, NOT FOUND: lesions Neck (Brief) Neck: NOT FOUND: adenopathy, tenderness Respiratory (Brief) Respiratory: FOUND: clear all fletcher, equal bilaterally Cardiovascular (Brief) Cardiac: FOUND: murmur, pedal edema (left leg 2+), regular rate, regular rhythm Abdomen (Brief) Abdominal: FOUND: BS normo active x4, soft, NOT FOUND: distended, tender Lymphatic (Brief) FOUND: lymphedema (left leg, appears slightly improved.) Musculoskeletal (Brief) FOUND: tenderness (left leg.), NOT FOUND: loss of motion Integumentary (Brief) FOUND: dry, pink Neurologic (Brief) FOUND: cranial 2-12 intact, NOT FOUND: motor (no acute motor deficit) Psychiatric (Brief) FOUND: alert, attentive, normal affect, oriented Laboratory Laboratory Tests Test 03/06/17 02:19 03/06/17 04:35 Glucometer 138mg/dL White Blood Count 9.2T/MM3 Red Blood Count 1.93M/MM3 Hemoglobin 7.2GM/DL Hematocrit 23.1% Mean Corpuscular Volume 119.7UM3 Mean Corpuscular Hemoglobin 37.3UUG Mean Corpuscular Hemoglobin Concent 31.2GM/DL RDW Standard Deviation 64.5FL Platelet Count 224T/MM3 Mean Platelet Volume 12.2UM3 Immature Granulocyte % (Auto) % Neutrophils (%) (Auto) % Lymphocytes (%) (Auto) % Monocytes (%) (Auto) % Eosinophils (%) (Auto) % Basophils (%) (Auto) % Absolute Immature Granulocyte (auto T/MM3 Absolute Neutrophils (auto) T/MM3 Absolute Lymphocytes (auto) T/MM3 Absolute Monocytes (auto) T/MM3 Absolute Eosinophils (auto) T/MM3 Absolute Basophils (auto) T/MM3 Neutrophils % (Manual) 84.0% Lymphocytes % (Manual) 14.0% Monocytes % (Manual) 2.0% Absolute Neutrophils (Manual) 7.7T/MM3 Lymphocytes # (Manual) 1.3T/MM3 Monocytes # (Manual) 0.2T/MM3 Nucleated Red Blood Cells 1 Poikilocytosis 2+ Anisocytosis 1+ Macrocytosis 1+ Ovalocytes 1+ Clarke-Marine Bodies 1+ Red Cell Morphology Comment Abnormal Absolute Reticulocyte Count 0.1346T/MM3 Percent Reticulocyte Count 8.7% Immature Reticulocyte Fraction 3.9% Reticulocyte Hgb Content (CHr) 38.2PG Turbidity < 20 Sodium Level 141MEQ/L Potassium Level 3.9MEQ/L Chloride Level 94MEQ/L Carbon Dioxide Level 38MEQ/L Anion Gap 9MEQ/L Blood Urea Nitrogen 57.0MG/DL Creatinine 1.1MG/DL Glomerular Filtration Rate Calc 47 BUN/Creatinine Ratio 52RATIO Glucose Level 110MG/DL Calculated Osmolality 288MOSM/KG Calcium Level 11.2MG/DL Magnesium Level 1.7MG/DL Total Bilirubin 0.80MG/DL Icterus Index < 2 Aspartate Amino Transf (AST/SGOT) 29U/L Alanine Aminotransferase (ALT/SGPT) 30U/L Alkaline Phosphatase 56U/L Lactate Dehydrogenase 893U/L Total Protein 5.4G/DL Albumin 3.2G/DL Globulin 2.2G/DL Albumin/Globulin Ratio 1.5RATIO Chemistry Specimen Hemolysis < 15 Assessment & Plan Assessment 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 Will give Rituxan weekly X 4-1st dose given as in -patient 02/27/17, and second dose Rituxan today AIHA hemoglobin 6.5. It appears to be stable. Reticulocyte count is 16%. This appears to be stabilizing in response to the Rituxan given on Thursday. We'll continue to follow without transfusion if possible. HGB 6.5, HCT 18.3 on , hemoglobin 7.4, hematocrit 20.5 on 03/05/17, and hemoglobin 7.2, hematocrit 23.1 today. Hypercalcemia related to the lymphoma. Should improve with steroids. Ca++ yesterday 10.9, Ca++ 11.1 on 03/03/17, 11.6 on 03/05/17, and calcium 11.2 today Chronic kidney disease, long-standing. Because she has a lambda light chain will obtain 24-hour urine-results pending. Plan/Intensity of Service Cycle 2 Rituxan today. Continue close monitoring of CBC, renal function, and calcium levels. Continue supportive care Code Status Do Not Resuscitate Hospital Course Summary Disclaimer The visit summary below is not to be considered part of the above Progress Note. Hospital Course Summary 02/[address] patient in outpatient observation status at [facility] under the care of Dr. Rodrigues. Start IV fluids secondary to the presyncope patient was having in site inspector' s office. Obtain Doppler scan of left lower extremity to exclude possibility of blood clot. Most likely we are probably dealing with underlying lymph obstruction. However, in light of progression of edema, recheck Doppler is warranted. Will continue home medications. Will consult with Dr. Ramirez for oncological evaluation of her increased lower extremity edema as well as her anorexia. Check on pending laboratory - CMP, CBC, magnesium prealbumin TSH and UA were ordered at time of presentation. However, still pending. Initiate SCDs for DVT prevention. Cardiac telemetry will be obtained. Discussed code status with patient. Daughter reports she would want " everything done" but not wish to remain on machines. The patient will therefore be FULL CODE. Patient's care will be returned to Dr. Muro at time of discharge from [facility]. 02/27 ADMIT Doing okay. Some nausea this am. No ab pain. Breathing okay-needing O2, but not hurting with breathing or having cough/congestion. Still with diffuse itching. With need for chemotherapy to address her edema, will change admission status to inpatient. Change IVF to 1/2 NS at 75cc/hr to provide hydration and correct hypernatremia. PT/OT to help functional status. Monitor blood counts - likely need transfusion. Pharmacy reviewed home meds and corrected our med rec. Recheck BMP in am due to hypernatremia. Repeat CBC due to anemia and chemo. 02/28/17 Acute on chronic anemia - h&h down to 6.[address]. Peng has already ordered 2 units of blood, but due to antibodies the blood will be coming from [facility]. Should arrive this afternoon. Lasix to be given in between units. Stool was negative for occult blood last night though patient reported "a few red stools" to oncology when they saw her in consultation. CAD with stent placed in 05/2016 - Cont ASA and Plavix. Platelets are normal at 238. Hypotension - SBP in 90s for much of yesterday. Improved this morning. Cont to hold metoprolol. Cont Inderal. HR upper 50s-60s. Weight has increased to 47.6 and she is nearly 3.6L fluid positive. If her BP remains stable today could probably DC IVF. CXR showed pulm fibrosis. Hypernatremia - resolved. Na 144. Not a candidate for anticoagulants for VTE ppx d/t severe anemia. 03/01/17 Acute encephalopathy/delirium, superimposed on dementia - moved to room 142 for safety; PRN dose of Haldol given last night. Acute on chronic anemia - having difficulty matching blood d/t antibodies. Dr. Tejeda aware - will round on the pt and complete transfusion orders today. Hypotension - BP marginal. Consider reducing Inderal; continue to hold metoprolol. Continue IVF, but decrease rate. Once BP stabilizes (expect improvement with blood transfusion), would like to DC IVF b/c of weight gain and being fluid positive. Renal function improving. Hypercalcemia - improved to 10.5. Dr. Tejeda - consider nephrology eval, Aredia or Zometa 03/02/17 Transfusion is on hold, will discuss further with Dr. Ramirez later today. Hemoglobin is 6.5, hematocrit 12.6. White count is 5.7. Iron level was normal at 70, TIBC low at 232, ferritin was high at 1440. Vitamin B12 was 916. Renal status is holding steady with BUN of 45 and creatinine 1.6. Hypercalcemia persists, calcium is 10.9 this morning. Low blood pressure: Continue to hold beta porfirio. Heart rate has not been tachycardic. 03/02/2017-I reviewed this chart, the patient history, and the BALANCE STAFF INSPECTOR's/PA's documented findings as above. We discussed and formulated the assessment and plan as above with the additions below.-Dr. Peng Patient states she's feeling okay. She denies any pain at this time. She denies shortness of breath. On exam she is alert and in no acute distress. Chest reveals some crackles in the lungs bilaterally. Cardiovascular reveals a regular rate and rhythm with a 4 /6 systolic murmur. Abdomen is soft and nontender. No edema in the right leg. Left leg has lymphedema with weeping. Lab today shows hemoglobin of 6.5. White count 5.7. Platelets are normal. BUN/creatinine are fairly stable. Calcium is still elevated at 10.9 today. We can hold IV fluids and monitor creatinine and renal function. Hopefully, Decadron will help with elevated calcium. Continue to monitor lab work. Fortunately, hemoglobin is stable. 03/03 Plan IV fluids held yesterday. Patient is taking by mouth well. Calcium is up slightly to 11.1. Recheck tomorrow. Continue Decadron. Will discuss possible IVIG with oncology service. Encourage increased activity with PT and OT Recheck CBC, renal panel tomorrow Renal function is stable. Recheck tomorrow. Consider DC Price 03/04/[address] Ramirez for oncology and hematology recommendations. Given history of hemolytic anemia and non-Hodgkin's lymphoma. Continue to monitor hemoglobin, today is 6.7. [place] Laborer continues to trend down at 1.3 , patient has known chronic kidney disease. When he for hour urine collection was ordered by oncology. She did receive Decadron 10 milligrams IV 1 today. Will continue to follow persistent hypercalcemia. She did receive Lasix 40 milligrams by mouth this morning. May consider a 2nd dose this afternoon. Encourage work PT/OT for strengthening Recheck CBC and BMP tomorrow morning to follow blood counts, renal function and electrolytes Discuss further plan of care with attending, SABINO Bains 03/06/17 1805: Objective Laboratory Item Value Date Time Hemoglobin 7.4 GM/DL L 03/05/17 0415 Hemoglobin 6.7 GM/DL L 03/04/17 0448 Hematocrit 20.5 % L 03/05/17 0415 Hematocrit 19.4 % L 03/04/17 0448 White Blood Count 12.8 T/MM3 H 03/05/17 0415 White Blood Count 10.5 T/MM3 03/04/17 0448 Absolute Neutrophils (Manual) 9.9 T/MM3 H 03/05/17 0415 Creatinine 1.2 MG/DL 03/05/17 0415 Calcium Level 11.6 MG/DL H 03/05/17 0415 Calcium Level 11.4 MG/DL H 03/04/17 0448 Calcium Level 11.1 MG/DL H 03/03/17 0432 Percent Reticulocyte Count 10.5 % H 03/05/17 0415 White Blood Count 9.2 T/MM3 03/06/17 0435 Hemoglobin 7.2 GM/DL L 03/06/17 0435 Platelet Count 224 T/MM3 03/06/17 0435 Percent Reticulocyte Count 8.7 % H 03/06/17 0435 Calcium Level 11.2 MG/DL H 03/06/17 0435 Creatinine 1.1 MG/DL 03/06/17 0435 Lactate Dehydrogenase 893 U/L H 03/06/17 0435 Assessment & Plan Assessment Patient examined, chart reviewed receiving second week of Rituxan today. Hemoglobin is improved to 7.2. Reticulocyte count is down to 8.9%. LDH is decreasing. Will DC today on dexamethasone 4 mg daily and see patient back in 1 week for continuation of the Rituxan. Agree with documentation of Zofia Phelan. I participated development of the plan of care with this patient discussed plan and management with Dr. Peng. Plan/Intensity of Service Home today Lab Thursday in [place] at [facility] RT C5/ for continuation of Rituxan TEZ PHELAN APRN March 06, 2017 10:40 SABINO RAMIREZ March 06, 2017 18:05
[2017-03-06] MEDS: ACETAMINOPHEN 325 MG TABLET PO SCH (11:43)
[2017-03-06] MEDS: NORMAL SALINE IV SCH (11:44)
[2017-03-06] MEDS: DEXAMETHASONE IV SCH (11:44)
[2017-03-06] MEDS ORDERED: DiphenhydrAMINE 50 MG/ML INJECTION IV ONE (11:45)
[2017-03-06] MEDS ORDERED: RITUXIMAB IV ONE (13:00)
[2017-03-06] MEDS ORDERED: NORMAL SALINE IV ONE (13:00)
--- NOTE | 2017-03-06 13:45 | NUR ---
Rituximab started at 50 cc hr will monitor vs.
--- NOTE | 2017-03-06 14:20 | NUR ---
BRENT CM IN TO TALK WITH PT AND DAUGHTER ABOUT DC PLANNING. DR PANDEY DOES NOT WANT PT TO MISS A DOSE OF CHEMO IN ORDER TO QUALIFY FOR SNU, PER FUENTES NURSE WITH DR. PANDEY.
--- NOTE | 2017-03-06 14:38 | NUR ---
BRENT KENNEDY FAXED HOME HEALTH ORDERS TO [facility]. Addendum: 03/06/17 at 1443 by GEORGINA ORTIZ RN BRENT CALLED TREVIN WITH [facility] SHE WAS NOTIFIED OF INTENT TO DC TODAY AFTER CHEMO.
[2017-03-06] MEDS ORDERED: DEXA4TAB PO (14:57)
--- NOTE | 2017-03-06 15:47 | NUR ---
daughter Maxine called re garding dismissal, case mangement plans are for dc back to [facility] with home health after chemo. is given today. pt tolerating chemo without side affects.
--- NOTE | 2017-03-06 17:05 | DSPDOC ---
General Date Date DATE: 03/06/17 TIME: 16:37 Attending Physician Barb Peng MD Admitting Physician Barb Peng MD Consulting Physician Jose Francisco Ramirez- oncology, Dr. Guerrero-cardiology Admitting Diagnosis LLE edema, pain; weakness. 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 Ramirez Laboratory Item Value Date Time Immunoglobulin G 534.82 MG/DL L 02/28/170 Immunoglobulin A 44.16 MG/DL L 02/28/170 Immunoglobulin M 306.74 MG/DL H 02/28/17409 Stool Occult Blood Negative 02/27/172112 Prothromb Time International Ratio 1.22 H 02/26/171999 Vitamin B12 Level 916 PG/ML 02/28/17409 Thyroid Stimulating Hormone (TSH) 4.24 MIU/L 02/26/171999 Prealbumin 13.3 MG/DL L 02/26/171999 Laboratory Tests Test 03/06/17 02:19 03/06/17 04:35 03/06/17 10:55 Glucometer 138mg/dL (65-110) White Blood Count 9.2T/MM3 (4.5-11.0) Red Blood Count 1.93M/MM3 (4.00-5.20) Hemoglobin 7.2GM/DL (12-16) Hematocrit 23.1% (36-46) Mean Corpuscular Volume 119.7UM3 (80-100) Mean Corpuscular Hemoglobin 37.3UUG (26-34) Mean Corpuscular Hemoglobin Concent 31.2GM/DL (31-37) RDW Standard Deviation 64.5FL (36.9-50.2) Platelet Count 224T/MM3 (130-400) Mean Platelet Volume 12.2UM3 (9.4-12.4) Immature Granulocyte % (Auto) % (0.0-0.5) Neutrophils (%) (Auto) % (33-66) Lymphocytes (%) (Auto) % (23-45) Monocytes (%) (Auto) % (0-9.0) Eosinophils (%) (Auto) % (0-4) Basophils (%) (Auto) % (0-2) Absolute Immature Granulocyte (auto T/MM3 (0.00-0.03) Absolute Neutrophils (auto) T/MM3 (1.8-7.7) Absolute Lymphocytes (auto) T/MM3 (1-4.8) Absolute Monocytes (auto) T/MM3 (0-0.8) Absolute Eosinophils (auto) T/MM3 (0-0.5) Absolute Basophils (auto) T/MM3 (0-0.2) Neutrophils % (Manual) 84.0% (33-66) Lymphocytes % (Manual) 14.0% (23-45) Monocytes % (Manual) 2.0% (0-9.0) Absolute Neutrophils (Manual) 7.7T/MM3 (1.8-7.7) Lymphocytes # (Manual) 1.3T/MM3 (1-4.8) Monocytes # (Manual) 0.2T/MM3 (0-0.8) Nucleated Red Blood Cells 1 Poikilocytosis 2+ Anisocytosis 1+ Macrocytosis 1+ Ovalocytes 1+ Clarke-[place] Bodies 1+ Red Cell Morphology Comment Abnormal Absolute Reticulocyte Count 0.1346T/MM3 (0.0300-0.0900) Percent Reticulocyte Count 8.7% (0.6-1.7) Immature Reticulocyte Fraction 3.9% (3.3-14.5) Reticulocyte Hgb Content (CHr) 38.2PG (30.8-36.6) Turbidity < 20 (0-20) Sodium Level 141MEQ/L (134-144) Potassium Level 3.9MEQ/L (3.6-5) Chloride Level 94MEQ/L (98-107) Carbon Dioxide Level 38MEQ/L (22-30) Anion Gap 9MEQ/L (5-15) Blood Urea Nitrogen 57.0MG/DL (7-17) Creatinine 1.1MG/DL (0.7-1.2) Glomerular Filtration Rate Calc 47 BUN/Creatinine Ratio 52RATIO (6-26) Glucose Level 110MG/DL (65-110) Calculated Osmolality 288MOSM/KG (261-280) Calcium Level 11.2MG/DL (8.4-10.2) Magnesium Level 1.7MG/DL (1.6-2.3) Total Bilirubin 0.80MG/DL (0.20-1.30) Icterus Index < 2 (0-7) Aspartate Amino Transf (AST/SGOT) 29U/L (14-36) Alanine Aminotransferase (ALT/SGPT) 30U/L (9-52) Alkaline Phosphatase 56U/L (38-126) Lactate Dehydrogenase 893U/L (313-618) Total Protein 5.4G/DL (6.3-8.2) Albumin 3.2G/DL (3.5-5.0) Globulin 2.2G/DL (2.4-3.6) Albumin/Globulin Ratio 1.5RATIO (1.1-2.2) Chemistry Specimen Hemolysis < 15 (0-25) Urine Protein 55MG/DL Urine Collection Time 24HRS Urine Total Volume 1.750L Urine Creatinine 24.6MG/DL Urine Creatinine 24 Hour 430MG/24HR (800-2800) Urine Total Protein 24 Hour 962MG/24HR (42-225) Microbiology none Radiology Venous Doppler of the left leg was negative for DVT on 02/27/2017 Chest x-ray showed chronic fibrosis. No obvious acute pneumonia or congestive failure on 02/26/2017 History of Present Illness 86-year-old female, well-known to Dr. Ramirez with history of non-Hodgkin's lymphoma, prior treatment with Rituxan, currently on observation, was admitted to [facility] yesterday with acute weakness, significant swelling left leg, and dyspnea. She is alone at time of intake. Reports intermittent night sweats. Denies fever or chills. Decreased appetite, intermittent nausea, no emesis. Reports intermittent chest tightness, shortness of air with exertion , recent increased symptoms. Fatigue. Denies pain currently. No diarrhea, constipation, no dysuria, or urine frequency. 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 --03/2014: She was admitted with Mycoplasma Pneumonia. She had flow cytometry consistent with persistent lymphoma. She was also found to have a low level of an IgM monoclonal protein 0.2 g. 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 She was found to be a cold antibody that could be associated with either her lymphoma or mycoplasma. She was begun on steroids and her hemoglobin gradually improved it was 7.1. --04/27/14: Acute worsening of hemolytic anemia with CT showing mediastinal adenopathy. --04/28/14: Rituxan weekly started. 8 cycles completed 06/22/14. --06/08/14: Drop in hemoglobin. --08/31/14: Maintenance Rituxan every 2 months started. --Monthly IVIG at [facility] through Infectious disease. --04/2014: M-spike of 0.2. Resolved with Rituxan. --07/15/16: Blood transfusion of [address] Lennon for Hgb of 7.3. --06/2016: Iron infusions with Dr. Lennon. 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 Some of them were actively bleeding. These were treated with multiple applications of bipolar electrocautery with cessation of bleeding. Hospital Course The patient was admitted on 02/26/2017 with left lower extremity swelling, weakness, difficulty breathing and itching. Workup did reveal a lymph obstruction secondary to lymphoma. Dr. Ramirez was consulted and started the patient on rituximab which she received on 02/27/2017 and 03/06/2017. Decadron was also initiated to help with hypercalcemia and autoimmune hemolytic anemia. Zometa was not started for hypercalcemia because of the patient's low creatinine clearance of 25. The patient was found to have autoimmune hemolytic anemia secondary to her lymphoma, hemoglobin was as low as 6.2 but improved to 7.2 without transfusions prior to admission. Autoimmune Hemolytic anemia was treated with dexamethasone. The patient will be discharged on a 14 day course and this could be lengthened or shortened at Dr. Ramirez's discretion. The patient's lower extremity edema did improve slightly during the hospital course. Appetite was improving. She was up walking with physical therapy. She was maintained on her usual 2-3 L of oxygen for pulmonary fibrosis and COPD. She did have some episodes of encephalopathy but this has improved. She is back to her baseline level of dementia. Case management was consulted for help with discharge planning. The patient and family decided they wanted to continue with chemotherapy. Plans were made for the patient to be discharged back to her assisted living and home health would be consulted. She had history of GI bleeding in the recent past. Hemoccult stool was negative this hospital course and she had no recurrence of GI bleed. She continued on her aspirin and Plavix for history of coronary artery disease and stent placement last summer. 24 hour urine was obtained during this hospital course and final results are pending. On 03/06/2017 was felt that the patient was stable for transfer back to her assisted living facility with plans for home health. Discharge plans were discussed with Dr. Ramirez. I did call the patient's primary care physician Dr. Muro and notified him of hospital course and discharge plans. Greater than 45 minutes of time was spent on dismissal day. Problems: (1) NHL (non-Hodgkin's lymphoma) Status: Chronic Assessment & Plan: Relapsed - Chemo initiated on 02/27 (2) Edema of left lower extremity Status: Acute Assessment & Plan: Left lower - lymph obstruction secondary to relapsed NHL (3) Anemia Onset Date: 05/03/2014 Status: Acute (4) Fatigue Status: Acute (5) Anorexia Status: Acute (6) Generalized pruritus Status: Acute (7) Hypernatremia Status: Resolved Assessment & Plan: POA (8) CAD (coronary artery disease) Status: Chronic Assessment & Plan: Heart cath 05/2016 - stent to Circ 05/2016. Continue Plavix and Aspirin (9) Hypertension Status: Chronic (10) Mixed hyperlipidemia Status: Chronic (11) Presence of automatic implantable cardioverter-defibrillator Status: Chronic (12) Non-rheumatic tricuspid valve insufficiency Status: Chronic (13) Nonrheumatic aortic valve stenosis Status: Chronic (14) GERD (gastroesophageal reflux disease) Status: Chronic (15) Depression Status: Chronic (16) Anxiety Status: Chronic (17) Vascular dementia Status: Chronic (18) Osteoarthritis Status: Chronic (19) Gait instability Status: Chronic (20) Debility Status: Acute (21) Hypercalcemia Code Status Do Not Resuscitate Home Meds Active Scripts Dexamethasone (Dexamethasone) 4 Mg Tablet, 4 TAB PO DAILY, #14 TAB Prov:BARB PENG MD 03/06/17 Reported Medications Propranolol HCl (Propranolol HCl) 60 Mg Tablet, 60 MG PO BID 02/27/17 Hyoscyamine Sulfate (Levsin-Sl) 0.125 Mg Tab.subl, 0.125 MG SL Q4H Y for SECRETIONS 02/26/17 Famotidine (Famotidine) 20 Mg Tablet, 20 MG PO DAILY 02/26/17 Hydroxyzine HCl (Hydroxyzine HCl) 25 Mg Tablet, 25 MG PO QID Y for ALLERY SYMPTOMS 02/26/17 Ondansetron (Ondansetron Odt) 8 Mg Tab.rapdis, 8 MG PO Q8H Y for NAUSEA 02/26/17 Acetaminophen (Tylenol) 325 Mg Tablet, 1-2 TAB PO Q4HR Y for PAIN 02/26/17 Lorazepam (Lorazepam) 0.5 Mg Tablet, 0.5-1 MG PO Q4H Y for ANXIETY/RESTLESSNESS 02/26/17 Menthol (Biofreeze) 118 Ml Gel..ml., 1 APPLIC TP PRN Y for MUSCLE PAIN 02/26/17 Budesonide (Budesonide) 0.25 Mg/2 Ml Ampul.neb, 0.25 MG AEROSOL BID 02/26/17 Arformoterol Tartrate (Brovana) 15 Mcg/2 Ml Vial.neb, 15 MCG AEROSOL BID, VIAL 02/26/17 Levothyroxine Sodium (Levothyroxine Sodium) 25 Mcg Tablet, 25 MCG PO ACB, TAB Once daily before breakfast 02/26/17 Aspirin (Aspir 81) 81 Mg Tablet.dr, 81 MG PO DAILY 02/26/17 Atorvastatin Calcium (Atorvastatin Calcium) 20 Mg Tablet, 20 MG PO HS 05/26/16 Clopidogrel Bisulfate (Plavix) 75 Mg Tablet, 75 MG PO DAILY, TAB 05/26/16 Duloxetine HCl (Duloxetine HCl) 60 Mg Capsule.dr, 60 MG PO DAILY 02/04/16 Folic Acid (Folic Acid) 1 Mg Tablet, 1 MG PO DAILY 06/06/14 Allopurinol (Allopurinol) 300 Mg Tablet, 300 MG PO DAILY, TAB 06/06/14 Lorazepam (Ativan) 0.5 Mg Tablet, 0.5 MG PO BID 06/06/14 Pantoprazole Sodium (Protonix) 40 Mg Tablet.dr, 40 MG PO BID 06/06/14 Multivitamins (Multivitamin) 1 Tab Tablet, 1 TAB PO DAILY, TAB 04/10/14 Furosemide (Lasix) 40 Mg Tablet, 40 MG PO DAILY 04/10/14 Discontinued Reported Medications Lorazepam (Lorazepam) 0.5 Mg Tablet, 0.5 MG PO DAILY Y for ANXIETY 02/27/17 Morphine Sulfate (Morphine Sulfate Oral Solution) 100 Mg/5 Ml Solution, 5-20 MG PO/SL Q2H Y for PAIN/AIR HUNGER 5-20 MG = 0.25-1 ML 02/27/17 Metoprolol Succinate (Metoprolol Succinate) 25 Mg Tab.er.24h, 25 MG PO DAILY, TAB 02/26/17 Acetaminophen (Tylenol) 325 Mg Tablet, 650 MG PO DAILY 06/06/14 Face to Face Encounter I met with patient on the day of dismissal and discussed follow up appointments , medications, and safety plan. Discharge Disposition Dismiss to assisted living with home health in stable condition Copies To 1: JULIA GUERRERO MD; JOSE FRANCISCO RAMIREZ STEPHANIE L MD March 06, 2017 16:40
--- NOTE | 2017-03-06 17:30 | NUR ---
chemo completed no reaction noted ivl dc;d pressure held to sight coban applied. dc instructions reviewed with family dc per wc with daughter script of dexamethasone faxd to [facility].
--- NOTE | 2017-03-10 16:49 | NUR ---
BRENT KENNEDY ATTEMPTED TO RETURN CALL TO PHIL AT [facility]. SHE HAS GONE FOR THE DAY. BRENT LEFT WITH HER PHONE NUMBER AND PHONE NUMBER FOR LILY COLE/BRENT.
== END 2017-03-06 18:22 | disposition home health service (06) | DRG 841 ==
LOC: MED 15:56 → INTOOBSV 15:56 → OBSVTOIN 02-27 13:14 → MED 02-28 18:30
PROVIDERS: ADMIT Hospitalist; ATTEND Internal Medicine
DX: C85.95 Non-Hodgkin lymphoma, unspecified, lymph nodes of inguinal region and lower limb (principal); Z68.1 Body mass index [BMI] 19.9 or less, adult; I13.0 Hypertensive heart and chronic kidney disease with heart failure and stage 1 through stage 4 chronic kidney disease, or unspecified chronic kidney disease; E46 Unspecified protein-calorie malnutrition; I89.0 Lymphedema, not elsewhere classified; I50.9 Heart failure, unspecified; N18.9 Chronic kidney disease, unspecified; E83.52 Hypercalcemia; D64.9 Anemia, unspecified; R41.0 Disorientation, unspecified; Z66 Do not resuscitate; R53.81 Other malaise; R63.0 Anorexia; R26.89 Other abnormalities of gait and mobility; I25.10 Atherosclerotic heart disease of native coronary artery without angina pectoris; M79.605 Pain in left leg; M79.604 Pain in right leg; J84.10 Pulmonary fibrosis, unspecified; E78.5 Hyperlipidemia, unspecified; E03.9 Hypothyroidism, unspecified; K21.9 Gastro-esophageal reflux disease without esophagitis; F32.9 Major depressive disorder, single episode, unspecified; F41.9 Anxiety disorder, unspecified; F01.50 Vascular dementia, unspecified severity, without behavioral disturbance, psychotic disturbance, mood disturbance, and anxiety; L29.9 Pruritus, unspecified; M19.91 Primary osteoarthritis, unspecified site; M81.0 Age-related osteoporosis without current pathological fracture; H40.9 Unspecified glaucoma; Z79.82 Long term (current) use of aspirin; Z79.899 Other long term (current) drug therapy; Z79.02 Long term (current) use of antithrombotics/antiplatelets; Z95.5 Presence of coronary angioplasty implant and graft; Z95.3 Presence of xenogenic heart valve
CPT/HCPCS: 36415; 80048; 80053; 80069; 80162; 81001; 82272; 82330; 82570; 82585; 82595; 82607; 82728; 82784; 82948; 83010; 83540; 83550; 83615; 83735; 83883; 84100; 84134; 84155; 84156; 84165; 84166; 84443; 84550; 85007; 85018; 85025; 85027; 85045; 85610; 86157; 86334; 86335; 86850; 86870; 86880; 86900; 86901; 86922; 86971; 86978; 93005; 94640; 94760; 96360; 96361; 99218

== ENCOUNTER 2017-04-24 12:25 | Inpatient (IN) ==
--- NOTE | 2017-04-24 14:11 | History & Physical Report ---
<Veronica Esquivel V - Last Filed: 04/24/17 14:05> History of Present Illness Date: 04/24/17 Chief complaint: left breast swelling and pain HPI: Patient is a pleasant 86-year-old female who is currently been under the treatment of Dr. Ramirez for and recurrence of non-Hodgkin's lymphoma. She presented to see Dr. Ramirez at his office today for evaluation of left breast swelling. She reports that this started yesterday morning. She noted that it is tender and bruised. She felt like it would go away on its own. However, today it seemed to be worse, thus she presented for further evaluation. Dr. Ramirez did evaluate her today and felt that she needed an acute workup in the hospital. She was sent as a direct admission to [facility] for further evaluation and treatment. At this point, all admission laboratory studies and workup are pending. 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 She also does have a history of GI bleeding in the past and notes that her stools are black intermittently. She is noted to be on oxygen by nasal cannula, which is chronic given her pulmonary fibrosis. Did review advanced directives in depth with patient and family at the bedside. They verbalized at this point, they want everything done for patient, however, are considering do not resuscitate in the near future. At this point, all admission laboratory studies and workup are pending. She is noted to be on oxygen by nasal cannula, which is chronic. Given her pulmonary fibrosis. Review of Systems All systems: reviewed and no additional remarkable complaints except as stated - Constitutional Constitutional: Present: fatigue, weakness - Cardiovascular Cardiovascular: Present: chest pain (left anterior chest wall swelling, ecchymosis and pain) Cardiovascular Comments: Left anterior chest wall swelling, ecchymosis and pain. Ecchymosis wraps around to the left lateral breast - Gastrointestinal Gastrointestinal: Present: melena - Musculoskeletal Musculoskeletal: Present: as per HPI - Integumentary/Breasts Integumentary: Present: as per HPI, erythema (Left breast) Breasts: as per HPI, swelling Integumentary Comments: Left lateral breast swelling, ecchymosis PFS Patient Stated Medical History Coronary artery disease with cardiac stents Hypertension Hyperlipidemia Non-Hodgkin's lymphoma-recurrent Chronic immunosuppression History of bioprosthetic heart valve Cataracts Glaucoma Macular Degeneration Congestive Heart Failure Pacemaker COPD GERD Depression Shingles Constipation Osteoarthritis History Blood Transfusions History Chemotherapy Dementia Post Menopausal Chronic oxygen dependence Surgical History: Heart catheter with stent placement-2015. Dr. Guerrero. Cholecystectomy. Pacemaker. Splenectomy. Hysterectomy. Shoulder surgery-2008 Family History: Father with known history of coronary artery disease and stroke - Social History Smoking status: Never smoker Substance use type: does not use Alcohol intake frequency: does not drink Current residence: Residential Social history: Patient is a who resides at [facility] in [place], [place]. Primary care provider Dr Chapito Muro Cardiology Dr. Croft Medications Home Medications Medication Instructions Recorded Confirmed Type Multivitamins (Multivitamin) 1 tab PO DAILY #0 tab 04/10/14 04/24/17 History LORazepam [Ativan] 0.5 mg PO BID #0 06/06/14 04/24/17 History Pantoprazole Sodium [Protonix] 40 mg PO BID #0 06/06/14 04/24/17 History Atorvastatin Calcium 20 mg PO HS #0 05/26/16 04/24/17 History Clopidogrel Bisulfate [Plavix] 75 mg PO DAILY #0 tab 05/26/16 04/24/17 History Acetaminophen [Tylenol] 1 - 2 tab PO Q4HR PRN #0 02/26/17 04/24/17 History Arformoterol Neb [Brovana Neb] 15 mcg AEROSOL BID #0 vial 02/26/17 04/24/17 History Budesonide 0.25 mg AEROSOL BID #0 02/26/17 04/24/17 History HydrOXYzine [Atarax] 25 mg PO QID PRN #0 02/26/17 04/24/17 History Hyoscyamine Sulfate [Levsin-Sl] 0.125 mg SL Q4H PRN #0 02/26/17 04/24/17 History LORazepam [Lorazepam] 0.5 - 1 mg PO Q4H PRN #0 02/26/17 04/24/17 History Menthol [Biofreeze] 1 applic TP PRN PRN #0 02/26/17 04/24/17 History Ondansetron [Ondansetron Odt] 8 mg PO Q8H PRN #0 02/26/17 04/24/17 History Propranolol HCl 60 mg PO BID #0 02/27/17 04/24/17 History Dexamethasone 2 mg PO DAILY 04/24/17 04/24/17 History Allergies Allergy/AdvReac Type Severity Reaction Status Date / Time cefuroxime Allergy Mild GI upset Verified 02/26/17 16:17 Cephalosporins Allergy Unknown rash Verified 02/26/17 16:17 fentanyl Allergy Unknown rash Verified 02/26/17 16:17 Exam Vital Signs: Temperature 97.9 F 04/24/17 12:40 Pulse Rate 61 04/24/17 12:40 Respiratory Rate 20 04/24/17 12:40 Blood Pressure 102/60 04/24/17 12:40 Pulse Oximetry 100 04/24/17 12:40 Oxygen Delivery Method Nasal Cannula Oxygen Flow Rate 3 Height: 1.57 m Weight: 47.4 kg Body Mass Index: 19.1 - Constitutional Present: no acute distress - Routine HEENT Exam Head: Present: normocephalic Eye: Present: EOMI, PERRL ENT: Present: mucous membranes moist - Routine Chest/Breast/Axilla Exam Chest wall: Present: tenderness, pacemaker Breast: Present: tenderness, swelling, erythema Axillae: Present: tenderness, swelling, erythema Comments: Significant swelling of the left anterior chest wall underneath the left breast , erythema and ecchymosis radiating to the left lateral chest wall and breast tissue. - Routine Respiratory Exam Comments: Diminished breath sounds on the left - Routine Cardiovascular Exam Present: RRR, S1, S2 - Routine Abdominal Exam Present: soft, normoactive bowel sounds - Routine Extremities Exam Present: edema Comments: Lymphedema present to the left lower extremity - Routine Skin Exam Present: intact, warm, ecchymosis (areas throughtout extremitites) - Routine Neurological Exam Present: alert, oriented X3, CN II-XII intact - Routine Psychiatric Exam Present: normal affect, normal thought process Comments: Known hx of dementia Assessment and Plan (1) Localized swelling of chest wall Current visit: Yes Status: Acute (2) Swelling of breast Current visit: Yes Status: Acute (3) Bruise of breast Current visit: Yes Status: Acute (4) NHL (non-Hodgkin's lymphoma) Current visit: Yes Status: Acute Recurrence of non-Hodgkin's lymphoma February 2017 (5) CAD (coronary artery disease) Current visit: Yes Status: Chronic (6) Pulmonary fibrosis Current visit: Yes Status: Chronic (7) Oxygen dependent Current visit: Yes Status: Chronic (8) HTN (hypertension) Current visit: Yes Status: Chronic (9) COPD (chronic obstructive pulmonary disease) Current visit: Yes Status: Chronic (10) Heart valve replaced Current visit: Yes Status: Chronic (11) GERD (gastroesophageal reflux disease) Current visit: Yes Status: Chronic (12) Hypothyroidism Current visit: Yes Status: Chronic (13) Depression Current visit: Yes Status: Chronic (14) Osteoarthritis Current visit: Yes Status: Chronic (15) History of autoimmune hemolytic anemia Current visit: Yes Status: Chronic Assessment and Plan: Admit patient as outpatient observation under care of Dr. Norwood for acute swelling of left chest wall and left breast Will initiate an acute evaluation on admission. Obtain the following laboratory studies CBC, CMP, magnesium, urinalysis, blood cultures, stool for occult blood. Will obtain radiology studies including CT of the head, chest, abdomen and pelvis. Given worsening left lower extremity swelling. Will also obtain a venous Doppler of bilateral lower extremities to rule out acute thrombus. Monitor patient on cardiac telemetry and obtain a 12-lead EKG given the amount of swelling over the left anterior chest wall. Continue patient on her home oxygen regimen Given reported dark stools, will obtain a stool for occult blood Will review all home medications once reconciled by nursing staff SCD to bilateral lower ext for DVT prophylaxis At this point patient is a Full Code. Family will discuss further with other family members. Will discuss further orders and plan of care with attending, Dr. Norwood. At time of discharge medical care will return to primary care provider, Dr. Abhishek Muro Sepsis Assessment - Evaluation Sepsis screening result: No Definite Risk Hospital Course Summary Disclaimer: The visit summary below is not to be considered part of the above Progress Note. Hospital Course: 04/24/17- Admit Admit patient as outpatient observation under care of Dr. Norwood for acute swelling of left chest wall and left breast Will initiate an acute evaluation on admission. Obtain the following laboratory studies CBC, CMP, magnesium, urinalysis, blood cultures, stool for occult blood. Will obtain radiology studies including CT of the head, chest, abdomen and pelvis. Given worsening left lower extremity swelling. Will also obtain a venous Doppler of bilateral lower extremities to rule out acute thrombus. Monitor patient on cardiac telemetry and obtain a 12-lead EKG given the amount of swelling over the left anterior chest wall. Continue patient on her home oxygen regimen Given reported dark stools, will obtain a stool for occult blood Will review all home medications once reconciled by nursing staff SCD to bilateral lower ext for DVT prophylaxis At this point patient is a Full Code. Family will discuss further with other family members. Will discuss further orders and plan of care with attending, Dr. Norwood. At time of discharge medical care will return to primary care provider, Dr. Abhishek Muro <Devin Norwood - Last Filed: 04/24/17 16:26> History of Present Illness Date: 04/24/17 HPI: As above pt seen and examined agree with above plan. All labs reviewed, most are still pending. On exam Pt is very frail Has H.O dementia Skin - multiple purpuric lesions specially on the arms Neck supple Chest - has murmur - RRR, poor air entry bilaterally Ext - marked edema of the LLE. Summary - This is a 86 YO female with H.O NHL apparenlty a B-Cell lymphoma, that has been on Rituximab, per Dr Hurst (Staff Medical Oncologist). Pt also has a paraproteinemia with cold agglutinins which have caused in the past hematologic problems - and could also cause auto-immune phenomena; pt has also received IVIg for this. Pt comes with multiple lesions on her arms and legs ( purpuric - non nodular) and is being investigated further to R/O infection or disease progression. Initial CT head, chest abdomen and pelvis suggest that what we are seeing is -most likely - disase progression. Her Hemoglobin is 7, hematocrit is only 11 - Dr Hurst stated that due to the cold agglutinin the Hct is misleading. This may also have caused the very elevated MCV. She has a mass in her lung that is most likely atelectasis (Right lower) and a Left breast mass that appears to be due to the underlying tumor. Her LLE is swollen with no clots due to compression of blood return in the pelvis by large lymph nodes. 2-E echo still pending. Pt does have a murmur and has H.O of valve replacement. The murmur can be worsened by anemia. The lesions of the arms are suggestive of purpura senilis, however if they are new they could be related to coagulopathy, or bleeding (due to underlying malignancy). Does not seem to correpond to endocarditis since there are no lesions in the mucosas (oral) or conjunctivae. Will culture pt and get a procalcitonin. Creatinine is 1.5, and calcium is normal. Will cover for PNA for now and add Nebulizers. Preliminary diagnosis 1) NHL entering a terminal phase ? 2) RLL atelectasis/PNA -? 3) L breast mass - malignant ? 4) Renal failure 5) ? of IgA deficiency 6) Anemia, may need a transfussion soon. 7) No DVT found. If this proves to be disease progression, pt may be a candidate for hospice. [facility] Patient Stated Medical History Dementia Yes Cataracts Yes Glaucoma Yes Macular Degeneration Yes Congestive Heart Failure Yes Other Cardiology Yes: pace maker Other GI Yes: lymphoma in stomach Shingles Yes Blood Transfusions Yes Chemotherapy Yes Other Behavioral Health Yes: dementia Post Menopausal Yes Exam Vital Signs: Temperature 97.9 F 04/24/17 12:40 Pulse Rate 61 04/24/17 12:40 Respiratory Rate 20 04/24/17 12:40 Blood Pressure 102/60 04/24/17 12:40 Pulse Oximetry 100 04/24/17 12:40 Oxygen Delivery Method Nasal Cannula Oxygen Flow Rate 3 Height: 5 ft 2 in Weight: 47.4 kg Results - Labs CBC & Chem 7: 04/24/17 14:12 04/24/17 14:12 Microbiology Results: Microbiology 04/24/17 15:08 Peripheral/Iv Start Blood Culture - Preliminary Culture Initiated - Results Pending 04/24/17 15:07 Peripheral/Iv Start Blood Culture - Preliminary Culture Initiated - Results Pending Assessment and Plan (1) Localized swelling of chest wall Current visit: Yes Status: Acute (2) Swelling of breast Current visit: Yes Status: Acute (3) Bruise of breast Current visit: Yes Status: Acute (4) NHL (non-Hodgkin's lymphoma) Current visit: Yes Status: Acute (5) CAD (coronary artery disease) Current visit: Yes Status: Chronic (6) Pulmonary fibrosis Current visit: Yes Status: Chronic (7) Oxygen dependent Current visit: Yes Status: Chronic (8) HTN (hypertension) Current visit: Yes Status: Chronic (9) COPD (chronic obstructive pulmonary disease) Current visit: Yes Status: Chronic (10) Heart valve replaced Current visit: Yes Status: Chronic (11) GERD (gastroesophageal reflux disease) Current visit: Yes Status: Chronic (12) Hypothyroidism Current visit: Yes Status: Chronic (13) Depression Current visit: Yes Status: Chronic (14) Osteoarthritis Current visit: Yes Status: Chronic (15) History of autoimmune hemolytic anemia Current visit: Yes Status: Chronic Hospital Course Summary Disclaimer: The visit summary below is not to be considered part of the above Progress Note.
--- NOTE | 2017-04-24 15:02 | Ultrasound Report ---
Indication: LLE swelling PROCEDURE: US venous doppler LE BI: Encounter: Initial Comparison: February 26, 2017 Technique: Color Doppler duplex and grayscale sonographic imaging of both lower extremities was performed. Findings: There is no evidence for acute deep venous thrombosis in either thigh. Specifically, serial graded compression was performed from the inguinal ligament to the popliteal bifurcation, bilaterally, demonstrating appropriate compressibility of the deep venous system. In addition, color and pulsed Doppler demonstrate appropriate spontaneous flow, variation with respiration, and augmentation with calf compression. At the ankle, normal flow is identified in the posterior tibial veins; these vessels are also normal in caliber. Small probable Sung's cyst in the right popliteal fossa measuring 3.3 cm in diameter. Sung's cyst on the left measuring 2.6 cm in maximal dimension. Mixed echogenicity lesion in the left groin measuring 5.3 x 2.3 cm in size. Impression: 1. No evidence of acute DVT in either lower limb. 2. Prominent lesion in the left groin area could represent subacute hematoma or mass. Pelvic CT may be helpful for further evaluation. .
--- NOTE | 2017-04-24 15:50 | CT Scan Report ---
Indication: NHL, New left breast swelling, pain PROCEDURE: CT head/chest/abd/pelv wo con: Encounter: Initial Comparison: None Technique: Axial CT images through the head were performed without contrast. Iterative Reconstruction dose reducing technique was utilized. FINDINGS: Mild to moderate generalized atrophy. Old lacunar infarct in the right thalamus. The ventricles are of normal size, shape, and contour for the patient's age. There are scattered areas of low attenuation in the white matter which most likely represent changes from chronic microvascular ischemia. The brainstem, cerebellum, and cerebral hemispheres otherwise have a normal morphology and CT attenuation. There is no evidence of midline displacement. No hemorrhage, signs of acute territorial stroke, mass effect, mass lesions, or edema is evident. The visualized portions of the skull base, midface, and calvarium demonstrate no abnormality. The paranasal sinuses are well aerated and free of significant disease. The tympanic and mastoid cavities appear normal. IMPRESSION: No acute intracranial abnormality or hemorrhage. No gross evidence of intracranial metastatic disease. CT chest abdomen and pelvis without: Comparison: Chest CT dated August 11, 2016 Technique: Axial CT images were performed through the chest, abdomen and pelvis without intravenous contrast. Coronal and sagittal two-dimensional reformats. Automated Exposure Control and Iterative Reconstruction dose reducing techniques were utilized. Findings: Chest: Subpleural fibrosis and scarring. There is a new subpleural area of consolidation or mass in the right lower lobe on image #44 measuring 2.1 cm in diameter. Areas of bronchiectasis and bronchial wall thickening are stable from the prior exam. No pleural effusion or pneumothorax. The central airways are patent. No axillary or mediastinal adenopathy. Prior aortic root repair. Cardiac pacemaker leads. Heart size is stable. No pericardial effusion. New large mass in the left breast. This measures 16 cm in craniocaudal dimension and 4.9 cm anteroposteriorly on sagittal image #19. No axillary adenopathy. New retrocrural adenopathy with a left lower mediastinal node on image #56 measuring 1.2 cm in short axis. Abdomen/pelvis: The unenhanced contours of the liver are unremarkable. Metallic artifact from numerous surgical clips in the GE junction region and left upper quadrant. Spleen is absent. Pancreas is poorly visualized due to the metallic artifact but is grossly unchanged. Right adrenal gland is grossly normal. Left adrenal gland is not seen due to the artifact. Bilateral simple and hyperdense cysts in both kidneys. Interval development of new bulky retroperitoneal adenopathy surrounding the aorta and IVC. Tomato Grader node on image #80 adjacent to the aorta on the left measures 2.8 cm in short axis. An aortocaval node on image #77 measures 2.6 cm in short axis. New adenopathy also in both external iliac regions and left pelvic sidewall area. There is bulky disease in the left pelvic sidewall with a vaibhav conglomeration or mass on image #107 measuring 10.3 x 4.7 cm. This mass causes displacement of the bladder to the right. There is also bulky left common femoral and inguinal adenopathy. This correlates to the finding on DVT study from today with a bulky left inguinal vaibhav mass measuring 2.7 cm in short axis on axial image #117. No evidence of a bowel obstruction. Uterus is absent. Bone windows show degenerative change in the spine with severe demineralization. No acute or pathologic vertebral fracture appreciated. No obvious lytic or blastic bony lesion. Impression: 1. Rapidly progressive disease recurrence with a very large left breast mass, posterior mediastinal and extensive retroperitoneal, left pelvic and inguinal adenopathy. 2. Consolidative process in the right lower lobe could be due to atelectasis, metastasis or less likely pneumonia. .
[2017-04-24] MEDS ORDERED: Hyoscyamine 0.125 MG SL tab SL PRN (16:28)
[2017-04-24 16:29] VITALS: BMI 19.0
[2017-04-24] MEDS: ALBUTEROL/IPRATROPIUM 2.5mg-0.5mg/3ml NEB IH SCH ×2 (16:36→19:56)
[2017-04-24] MEDS: PANTOPRAZOLE 40 MG INJECTION IVP SCH (18:32)
[2017-04-24] MEDS: LEVOFLOXACIN PB 750 MG/150 ML BAG IV SCH (18:32)
[2017-04-24] MEDS: BUDESONIDE INH.SOLN 0.25mg/2ml NEB IH SCH ×2 (19:57→20:59)
[2017-04-24] MEDS: LORazepam 0.5 MG TABLET PO PRN ×2 (20:10→22:17)
[2017-04-24] MEDS: ACETAMINOPHEN 325 MG TABLET PO PRN (20:10)
[2017-04-24] MEDS: METHYLPREDNISOLONE SOD SUCC 40mg/ml INJECTION IVP SCH (20:48)
[2017-04-24] MEDS: DEXAMETHASONE 4 MG/ML INJECTION IVP SCH (20:49)
[2017-04-24] MEDS: PROPRANOLOL 20 MG TABLET PO SCH (20:50)
[2017-04-24] MEDS ORDERED: METHYLPREDNISOLONE SOD SUCC 40mg/ml INJECTION IM SCH (21:00)
[2017-04-25] MEDS: LORazepam 0.5 MG TABLET PO PRN ×3 (00:28→20:02)
[2017-04-25] MEDS: BUDESONIDE INH.SOLN 0.25mg/2ml NEB IH SCH ×2 (07:56→19:29)
[2017-04-25] MEDS: ALBUTEROL/IPRATROPIUM 2.5mg-0.5mg/3ml NEB IH SCH ×4 (07:56→19:29)
--- NOTE | 2017-04-25 08:26 | Progress Note ---
Subjective: Pt is comfortablly sleeping. 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 her LLE swelling is much less today. She is up in bed and is looking very stable. Objective Vital signs: Temperature 97.4 F 04/25/17 07:48 Pulse Rate 61 04/25/17 07:48 Respiratory Rate 20 04/25/17 07:56 Blood Pressure 147/74 H 04/25/17 07:48 Pulse Oximetry 98 04/25/17 07:56 Oxygen Delivery Method Nasal Cannula Oxygen Flow Rate 1 Cardiac Ectopy: Rare PVC's Weight: 46.9 kg Comments: Pt has a paced rhythm that appears to be a fib rate is 60, has frequent PVC's - Constitutional Present: no acute distress, thin, cachectic - Routine HEENT Exam Head: Present: normocephalic, atraumatic Eye: Present: EOMI, PERRL Comments: Very pale. - Routine Cardiovascular Exam Present: irregular rhythm - Routine Abdominal Exam Present: non distended, non tender - Routine Extremities Exam Present: edema. Absent: cyanosis, clubbing Comments: Marked edema of the LLE Results - Labs CBC & Chem 7: 04/25/17 04:42 04/25/17 04:42 Microbiology Results: Microbiology 04/24/17 15:08 Peripheral/Iv Start Blood Culture - Preliminary Culture Initiated - Results Pending 04/24/17 15:07 Peripheral/Iv Start Blood Culture - Preliminary Culture Initiated - Results Pending Assessment and Plan (1) Localized swelling of chest wall Current visit: Yes Status: Acute (2) Swelling of breast Current visit: Yes Status: Acute (3) Bruise of breast Current visit: Yes Status: Acute (4) NHL (non-Hodgkin's lymphoma) Current visit: Yes Status: Acute Recurrence of non-Hodgkin's lymphoma February 2017 (5) CAD (coronary artery disease) Current visit: Yes Status: Chronic (6) Pulmonary fibrosis Current visit: Yes Status: Chronic (7) Oxygen dependent Current visit: Yes Status: Chronic (8) HTN (hypertension) Current visit: Yes Status: Chronic (9) COPD (chronic obstructive pulmonary disease) Current visit: Yes Status: Chronic (10) Heart valve replaced Current visit: Yes Status: Chronic (11) GERD (gastroesophageal reflux disease) Current visit: Yes Status: Chronic (12) Hypothyroidism Current visit: Yes Status: Chronic (13) Depression Current visit: Yes Status: Chronic (14) Osteoarthritis Current visit: Yes Status: Chronic (15) History of autoimmune hemolytic anemia Current visit: Yes Status: Chronic Assessment and Plan: Summary - This is a 86 YO female with H.O NHL apparenlty a B-Cell lymphoma, that has been on Rituximab, per Dr Ramirez (Staff Medical Oncologist). Pt also has a paraproteinemia with cold agglutinins which have caused in the past hematologic problems - and could also cause auto-immune phenomena including hemolytic anemia; pt has also received IV-Ig for this. On admission her H/H were very discortant/ Dr Ramirez remarked this is a falsely low reading on the hematocrit due to a cold agglutinin. Pt comes with multiple lesions on her arms and legs (purpuric - non nodular) and is being investigated further to R/O infection or disease progression. Initial CT head, chest abdomen and pelvis suggest that what we are seeing is -most likely - disase progression. CT chest showed a mass in her lung that is most likely atelectasis (Right lower Lobe) and a Left breast mass that appears to be due to the underlying tumor. Her LLE is swollen with no clots due to compression of blood/lymph return in the pelvis by large lymph nodes. 2-E echo still pending. Pt does have a murmur and has H.O of valve replacement. The murmur can be worsened by anemia. The lesions of the arms are suggestive of purpura senilis, however if they are new they could be related to coagulopathy, or bleeding (due to underlying malignancy). Does not seem to correspond to endocarditis since there are no lesions in the mucosas (oral) or conjunctivae. Calcium is normal on admission. Preliminary diagnosis 1) NHL entering a terminal phase ? 2) RLL atelectasis/PNA -? - Continue breathing treatments - Continue levaquin. 3) L breast mass - malignant ? - Feels better today. 4) Renal failure - Creatinine stable at 1.5 - BUN increasing. - Will improve after transfussion. 5) ? of IgA deficiency 6) Anemia. - Will be transfused later today. Per Dr Ramirez, pt is a DNR now. Sepsis Assessment - Evaluation Sepsis screening result: No Definite Risk Hospital Course Summary Disclaimer: The visit summary below is not to be considered part of the above Progress Note. Hospital Course: 04/24/17- Admit Admit patient as outpatient observation under care of Dr. Norwood for acute swelling of left chest wall and left breast Will initiate an acute evaluation on admission. Obtain the following laboratory studies CBC, CMP, magnesium, urinalysis, blood cultures, stool for occult blood. Will obtain radiology studies including CT of the head, chest, abdomen and pelvis. Given worsening left lower extremity swelling. Will also obtain a venous Doppler of bilateral lower extremities to rule out acute thrombus. Monitor patient on cardiac telemetry and obtain a 12-lead EKG given the amount of swelling over the left anterior chest wall. Continue patient on her home oxygen regimen Given reported dark stools, will obtain a stool for occult blood Will review all home medications once reconciled by nursing staff SCD to bilateral lower ext for DVT prophylaxis At this point patient is a Full Code. Family will discuss further with other family members. Will discuss further orders and plan of care with attending, Dr. Norwood. At time of discharge medical care will return to primary care provider, Dr. Abhishek Muro
[2017-04-25] MEDS: PANTOPRAZOLE 40 MG INJECTION IVP SCH (09:19)
[2017-04-25] MEDS: PROPRANOLOL 20 MG TABLET PO SCH ×2 (09:20→20:06)
[2017-04-25] MEDS: DEXAMETHASONE 4 MG/ML INJECTION IVP SCH ×2 (09:21→20:03)
[2017-04-25] MEDS: METHYLPREDNISOLONE SOD SUCC 40mg/ml INJECTION IVP SCH (09:21)
[2017-04-25] MEDS: DiphenhydrAMINE 25 MG CAPSULE PO PRN ×2 (10:17→20:03)
[2017-04-25] MEDS: METHYL SALICYLATE/MENTHOL OINT 28gm TP PRN (13:34)
[2017-04-25] MEDS: ACETAMINOPHEN 325 MG TABLET PO PRN (13:45)
--- NOTE | 2017-04-25 14:12 | Consult Note ---
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 --03/2014: She was admitted with Mycoplasma Pneumonia. She had flow cytometry consistent with persistent lymphoma. She was also found to have a low level of an IgM monoclonal protein 0.2 g. 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 She was found to be a cold antibody that could be associated with either her lymphoma or mycoplasma. She was begun on steroids and her hemoglobin gradually improved it was 7.1. --04/27/14: Acute worsening of hemolytic anemia with CT showing mediastinal adenopathy. --04/28/14: Rituxan weekly started. 8 cycles completed 06/22/14. --06/08/14: Drop in hemoglobin. --08/31/14: Maintenance Rituxan every 2 months started. --Monthly IVIG at [facility] through Infectious disease. --04/2014: M-spike of 0.2. Resolved with Rituxan. --07/15/16: Blood transfusion of [address] Lennon for HGB of 7.3. --06/2016: Iron infusions with Dr. Lennon. 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 Some of them were actively bleeding. These were treated with multiple applications of bipolar electrocautery with cessation of bleeding. --02/27/17: Admission to [facility] for NHL splenic marginal lymphoma and autoimmune hemolytic anemia. Rituxan weekly given on 02/27/17 and 03/06/17. Dismissed on 03/06/17. --4cycles weekly Rituxan --Maintanence Rituxan started 04/16/17 Swelling noted in left breast with mass and pain on 04/23/17. Patient seen on and admitted to the hospital for evaluation. She has had increasing difficulty with pain in the back, feeling cold, bruising , ecchymotic lesions on the arms. Review of Systems - Constitutional Constitutional: Present: fatigue, headache(s), lethargy, malaise - EENT Eyes: Present: pain. Absent: loss of vision - Cardiovascular Cardiovascular: Present: edema, heart murmur. Absent: palpitations, syncope - Respiratory Respiratory: Present: dyspnea - Gastrointestinal Gastrointestinal: Present: constipation, nausea - Genitourinary Genitourinary: Present: urinary frequency, urinary urgency - Musculoskeletal Musculoskeletal: Present: arthralgias, back pain - Integumentary/Breasts Integumentary: Present: erythema, lesions, pruritus Breasts: change in shape, mass - Neurological Neurological: Present: headache(s). 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 Pulmonary Chronic obstructive pulmonary disease;. Renal/urinary Chronic renal failure;. Gastrointestinal Gastroesophageal reflux; Surgical History: Heart catheter with stent placement-2015. Dr. Guerrero. Cholecystectomy. Pacemaker. Splenectomy. Hysterectomy. Shoulder surgery- 2008. Aortic valve replacement and mitrial repair Family History: Father [Father: (Cause of : CVA, Age at : 0 years, 50's); ], Mother [Mother: (Heart disease, in her early 70's); ]; - Social History Smoking status: Never smoker Housing: assisted living facility Current residence: [facility] Medications Home Medications Medication Instructions Recorded Confirmed Type Multivitamins (Multivitamin) 1 tab PO DAILY #0 tab 04/10/14 04/24/17 History LORazepam [Ativan] 0.5 mg PO BID #0 06/06/14 04/24/17 History Pantoprazole Sodium [Protonix] 40 mg PO BID #0 06/06/14 04/24/17 History Atorvastatin Calcium 20 mg PO HS #0 05/26/16 04/24/17 History Clopidogrel Bisulfate [Plavix] 75 mg PO DAILY #0 tab 05/26/16 04/24/17 History Acetaminophen [Tylenol] 1 - 2 tab PO Q4HR PRN #0 02/26/17 04/24/17 History Arformoterol Neb [Brovana Neb] 15 mcg AEROSOL BID #0 vial 02/26/17 04/24/17 History Budesonide 0.25 mg AEROSOL BID #0 02/26/17 04/24/17 History HydrOXYzine [Atarax] 25 mg PO QID PRN #0 02/26/17 04/24/17 History Hyoscyamine Sulfate [Levsin-Sl] 0.125 mg SL Q4H PRN #0 02/26/17 04/24/17 History LORazepam [Lorazepam] 0.5 - 1 mg PO Q4H PRN #0 02/26/17 04/24/17 History Menthol [Biofreeze] 1 applic TP PRN PRN #0 02/26/17 04/24/17 History Ondansetron [Ondansetron Odt] 8 mg PO Q8H PRN #0 02/26/17 04/24/17 History Propranolol HCl 60 mg PO BID #0 02/27/17 04/24/17 History Dexamethasone 2 mg PO DAILY 04/24/17 04/24/17 History Allergies Allergy/AdvReac Type Severity Reaction Status Date / Time cefuroxime Allergy Mild GI upset Verified 02/26/17 16:17 Cephalosporins Allergy Unknown rash Verified 02/26/17 16:17 fentanyl Allergy Unknown rash Verified 02/26/17 16:17 Exam Vital signs: Temperature 97.4 F 04/25/17 07:48 Pulse Rate 59 L 04/25/17 08:00 Respiratory Rate 16 04/25/17 11:17 Blood Pressure 147/74 H 04/25/17 07:48 Pulse Oximetry 100 04/25/17 11:31 Oxygen Delivery Method Nasal Cannula Oxygen Flow Rate 3 - Constitutional no acute distress, cooperative - Routine HEENT Exam Head: Present: normocephalic, atraumatic Eye: Present: EOMI, PERRL ENT: Present: mucous membranes moist - Routine Neck Exam Present: supple. Absent: lymphadenopathy - Routine Chest/Breast/Axilla Exam Breast: Present: tenderness, swelling, erythema Comments: Left breast with 10 cm mass extending into the axilla and bruising along the chest wall extending into the breast and around the nipple areole are complex. The axillary area is moderately tender. - Routine Respiratory Exam Present: decreased breath sounds, wheezes - Routine Cardiovascular Exam Present: RRR, murmur (systolic with soft diastolic murmur) - Routine Abdominal Exam Present: soft, non tender. Absent: distended, rebound, guarding, organomegaly - Routine Extremities Exam Present: edema (left leg 3+2+ right leg) - Routine Back/Spine/Pelvis Exam Back/Spine: Present: full ROM - Routine Skin Exam Present: lesions (multiple areas of ecchymosis some of them almost have the appearance of palpable purpura or possibly septic emboli with a raised hard Center area followed by a border of ecchymosis), ecchymosis - Routine Neurological Exam Present: alert, CN II-XII intact, moving all extremities - Routine Psychiatric Exam Present: normal affect Oncology Results - Labs CBC & Chem 7: 04/25/17 04:42 04/25/17 04:42 Labs: Short CBC 04/24/17 04/25/17 Range/Units 14:12 04:42 WBC 12.5 H 10.6 (4.5-11.0) T/MM3 Hgb 7.0 L 6.3 L (12-16) GM/DL Hct 11.0 L* 18.5 L D (36-46) % Plt Count 94 L 93 L (130-400) T/MM3 BMP 04/24/17 04/25/17 14:12 04:42 Sodium 139 138 Potassium 4.9 5.0 Chloride 98 96 L Carbon Dioxide 36 H 35 H BUN 45.0 H 58.0 H* Creatinine 1.5 H 1.5 H Glucose 99 118 H Calcium 9.2 9.4 Liver Function 04/24/17 Range/Units 14:12 Total Bilirubin 0.80 (0.20-1.30) MG/DL AST 43 H (14-36) U/L ALT 39 (9-52) U/L Alkaline Phosphatase 95 (38-126) U/L Albumin 3.4 L (3.5-5.0) G/DL Urine 04/24/17 Range/Units 17:33 Urine Color Yellow (YELLOW) Urine Clarity Clear Urine pH 6.0 (5.0-8.0) Ur Specific [place] 1.015 (1.015-1.025) Urine Protein 1+ A (NEGATIVE) Urine Glucose (UA) Negative (NEGATIVE) Laboratory Tests 04/24/17 04/24/17 04/24/17 14:12 14:12 15:07 WBC 12.5 H Hgb 7.0 L Plt Count 94 L Neutrophils % (Manual) 84.0 H Neutrophils # (Manual) 8.6 H BUN Creatinine 1.5 H AST 43 H ALT 39 Alkaline Phosphatase 95 Lactate Dehydrogenase IgA < 40.00 L IgM 599.92 H 04/25/17 04/25/17 04:42 04:42 WBC 10.6 Hgb 6.3 L Plt Count 93 L Neutrophils % (Manual) 80.0 H Neutrophils # (Manual) BUN 58.0 H* Creatinine 1.5 H AST ALT Alkaline Phosphatase Lactate Dehydrogenase 867 H IgA IgM - Imaging and Cardiology CT scan - abdomen Status: image reviewed by me Additional comments: Date of Exam: 04/24/17 Ordering Provider: Veronica Esquivel APRN Type of Exam(s): CT head/chest/abd/pelv wo con Reason for Exam(s): NHL, New left breast swelling, pain Indication: NHL, New left breast swelling, pain PROCEDURE: CT head/chest/abd/pelv wo con: Encounter: Initial Comparison: None Technique: Axial CT images through the head were performed without contrast. Iterative Reconstruction dose reducing technique was utilized. FINDINGS: Mild to moderate generalized atrophy. Old lacunar infarct in the right thalamus. The ventricles are of normal size, shape, and contour for the patient's age. There are scattered areas of low attenuation in the white matter which most likely represent changes from chronic microvascular ischemia. The brainstem, cerebellum, and cerebral hemispheres otherwise have a normal morphology and CT attenuation. There is no evidence of midline displacement. No hemorrhage, signs of acute territorial stroke, mass effect, mass lesions, or edema is evident. The visualized portions of the skull base, midface, and calvarium demonstrate no abnormality. The paranasal sinuses are well aerated and free of significant disease. The tympanic and mastoid cavities appear normal. IMPRESSION: No acute intracranial abnormality or hemorrhage. No gross evidence of intracranial metastatic disease. CT chest abdomen and pelvis without: Comparison: Chest CT dated August 11, 2016 Technique: Axial CT images were performed through the chest, abdomen and pelvis without intravenous contrast. Coronal and sagittal two-dimensional reformats. Automated Exposure Control and Iterative Reconstruction dose reducing techniques were utilized. Findings: Chest: Subpleural fibrosis and scarring. There is a new subpleural area of consolidation or mass in the right lower lobe on image #44 measuring 2.1 cm in diameter. Areas of bronchiectasis and bronchial wall thickening are stable from the prior exam. No pleural effusion or pneumothorax. The central airways are patent. No axillary or mediastinal adenopathy. Prior aortic root repair. Cardiac pacemaker leads. Heart size is stable. No pericardial effusion. New large mass in the left breast. This measures 16 cm in craniocaudal dimension and 4.9 cm anteroposteriorly on sagittal image #19. No axillary adenopathy. New retrocrural adenopathy with a left lower mediastinal node on image #56 measuring 1.2 cm in short axis. Abdomen/pelvis: The unenhanced contours of the liver are unremarkable. Metallic artifact from numerous surgical clips in the GE junction region and left upper quadrant. Spleen is absent. Pancreas is poorly visualized due to the metallic artifact but is grossly unchanged. Right adrenal gland is grossly normal. Left adrenal gland is not seen due to the artifact. Bilateral simple and hyperdense cysts in both kidneys. Interval development of new bulky retroperitoneal adenopathy surrounding the aorta and IVC. [employer] node on image #80 adjacent to the aorta on the left measures 2.8 cm in short axis. An aortocaval node on image #77 measures 2.6 cm in short axis. New adenopathy also in both external iliac regions and left pelvic sidewall area. There is bulky disease in the left pelvic sidewall with a vaibhav conglomeration or mass on image #107 measuring 10.3 x 4.7 cm. This mass causes displacement of the bladder to the right. There is also bulky left common femoral and inguinal adenopathy. This correlates to the finding on DVT study from today with a bulky left inguinal vaibhav mass measuring 2.7 cm in short axis on axial image #117. No evidence of a bowel obstruction. Uterus is absent. Bone windows show degenerative change in the spine with severe demineralization. No acute or pathologic vertebral fracture appreciated. No obvious lytic or blastic bony lesion. Impression: 1. Rapidly progressive disease recurrence with a very large left breast mass, posterior mediastinal and extensive retroperitoneal, left pelvic and inguinal adenopathy. 2. Consolidative process in the right lower lobe could be due to atelectasis, metastasis or less likely pneumonia. . Venous US Additional comments: Date of Exam: 04/24/17 Ordering Provider: Veronica Esquivel APRN Type of Exam(s): US venous doppler LE BI Reason for Exam(s): LLE swelling Indication: LLE swelling PROCEDURE: US venous doppler LE BI: Encounter: Initial Comparison: February 26, 2017 Technique: Color Doppler duplex and grayscale sonographic imaging of both lower extremities was performed. Findings: There is no evidence for acute deep venous thrombosis in either thigh. Specifically, serial graded compression was performed from the inguinal ligament to the popliteal bifurcation, bilaterally, demonstrating appropriate compressibility of the deep venous system. In addition, color and pulsed Doppler demonstrate appropriate spontaneous flow, variation with respiration, and augmentation with calf compression. At the ankle, normal flow is identified in the posterior tibial veins; these vessels are also normal in caliber. Small probable Sung's cyst in the right popliteal fossa measuring 3.3 cm in diameter. Sung's cyst on the left measuring 2.6 cm in maximal dimension. Mixed echogenicity lesion in the left groin measuring 5.3 x 2.3 cm in size. Impression: 1. No evidence of acute DVT in either lower limb. 2. Prominent lesion in the left groin area could represent subacute hematoma or mass. Pelvic CT may be helpful for further evaluation. . Assessment and Plan Assessment and Plan: 1. 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 Residual disease present in 2013. Flow positive for Monoclonal B cell neoplasm compatible with original diagnosis. 0.2 gm M-spike that is an IgM lambda monoclonal protein at diagnosis that has resolved. Associated with auto immune hemolytic anemia. CT scan shows dramatic response. Had 2 years of Maintenance Rituxan every 2 months from May, to March 2016. Hospitalization for hemolytic anemia 02/26/17 with swollen left leg and CT showing recurrence. Rituxan administered on weekly fpr 4 weeks . She has had improvement in anemia and less swelling in leg. 04/16/17: Hemoglobin is slightly lower at 7.3. Began maintenance rituxan. LDH [address] scan that by description shows progression of the mass in the left pelvis as the CT scan from 02/23/17 had smaller measurements. She has new mass in the left axillary area with marked bruising and left axillary area and multiple skin lesions with ecchymosis and hard firm areas at the Center compatible with either palpable purpura, cryoglobulinemia, or septic emboli. We have obtained blood cultures and are negative so far. She had cryoglobulin titer done at her last hospitalization that was negative. She had cold agglutinin titer done on 04/24. Her IgM is higher at 599. up from 306 on 02/28/17. LDH is lower at 867. Her CT scan is worrisome for progressive disease. Her underlying health status severity limits any type of chemotherapy. Will begin steroids, obtain CT scan for comparison to document progression. Consider skin biopsy for possibility of having septic emboli to especially with her history of valve replacement and worrisome skin lesions. Consider needle biopsy of the breast lesion on Thursday. We will look at supportive care. 2. Anemia with hemoglobin today of 6.3 with associated cold agglutinin and anti- [place] antibody present we have a type and screen that is been performed and have the least compatible units available. However with her cold agglutinins she has potential of having transfusion reaction. She is fairly asymptomatic with her hemoglobin of 6.3. Will provide supportive care with folic acid and erythropoietin. Will follow retake count. Blood is available if needed. 3. Chronic obstructive pulmonary disease fairly severe, oxygen dependent 4. History of aortic valve replacement and mitral valve repair 5. History of GI bleed 6. Multiple skin lesions with ecchymosis and firmer areas in the Center worrisome for septic emboli. Blood cultures have been obtained. She is currently on Levaquin. Will follow. 7. Large breast/axillary mass. It is associated with bruising. This could be related to trauma,, infection, lymphoma or other malignancy. Consider biopsy on Thursday 8. Advanced directives. Discussed advanced directives with patient and daughters. She does not want heroic measures done. This was present on the prior hospitalization. Discussed again today and I wrote DO NOT RESUSCITATE order last evening after discussing with daughter by phone Recommendations: Steroids Aranesp and folic acid Supportive care No CODE BLUE Transfusion is available. It is the least incompatible unit. Would only use if she is having significant distress. Sepsis Assessment - Evaluation Sepsis screening result: No Definite Risk
[2017-04-25] MEDS ORDERED: EPOETIN ALFA 10000 UNIT/ML SQ ONE (14:39)
[2017-04-25] MEDS: FOLIC ACID 1 MG TABLET PO SCH (15:35)
[2017-04-26] MEDS: LORazepam 0.5 MG TABLET PO PRN ×4 (00:24→21:56)
[2017-04-26] MEDS: DiphenhydrAMINE 25 MG CAPSULE PO PRN ×3 (03:32→22:51)
[2017-04-26] MEDS: ALBUTEROL/IPRATROPIUM 2.5mg-0.5mg/3ml NEB IH SCH ×4 (07:32→20:32)
[2017-04-26] MEDS: BUDESONIDE INH.SOLN 0.25mg/2ml NEB IH SCH ×2 (07:32→20:33)
[2017-04-26] MEDS: FOLIC ACID 1 MG TABLET PO SCH (08:12)
[2017-04-26] MEDS: PANTOPRAZOLE 40 MG INJECTION IVP SCH (08:13)
[2017-04-26] MEDS: DEXAMETHASONE 4 MG/ML INJECTION IVP SCH ×2 (08:13→21:51)
[2017-04-26] MEDS: PROPRANOLOL 20 MG TABLET PO SCH ×3 (08:15→21:51)
--- NOTE | 2017-04-26 11:26 | Progress Note ---
Oncology Subjective She continues to itch. She continues to have discomfort in the left upper breast.. She doesn't complain of increased shortness of breath. Review of systems: Gen.: Negative for fever or chills, positive for malaise Eyes: Negative eye discharge, eye pain ENT: Negative for nosebleeds, mouth sores, positive for sore throat Lymph: Positive enlarged lymph nodes, no night sweats Respiratory: Negative for cough, positive shortness of breath, negative hemoptysis, Cardiac: Negative for chest pain, palpitations, or positive swelling GI: Negative for nausea, negative for vomiting, negative for diarrhea Genitourinary: No urgency, no dysuria, no hematuria Musculoskeletal: Positive for weakness, no joint pain Neurologic: Negative for headache, negative for focal weakness, negative for numbness Skin: Positive for ecchymoses Exam Vital signs: Temperature 98.9 F 04/26/17 07:52 Pulse Rate 68 04/26/17 07:52 Respiratory Rate 18 04/26/17 07:52 Blood Pressure 145/69 H 04/26/17 07:52 Pulse Oximetry 91 04/26/17 07:52 Oxygen Delivery Method Nasal Cannula Oxygen Flow Rate 3 - Constitutional no acute distress, thin - Routine HEENT Exam Eye: Present: EOMI, PERRL, periorbital ecchymosis ENT: Present: mucous membranes moist - Routine Neck Exam Present: supple. Absent: lymphadenopathy - Routine Chest/Breast/Axilla Exam Breast: Present: mass (left upper breast with upper part being cystic and inferior aspect of this mass being much firmer and indurated.) Axillae: Present: lymphadenopathy (with tenderness left axillary area 10 cm mass. Bruising is present surrounding this mass), tenderness - Routine Respiratory Exam Present: decreased breath sounds, rhonchi. Absent: respiratory distress - Routine Cardiovascular Exam Present: RRR, murmur (systolic murmur) - Routine Abdominal Exam Present: soft, non tender. Absent: rebound, organomegaly - Routine Extremities Exam Present: edema (2+ left leg). Absent: cyanosis, clubbing - Routine Skin Exam Present: ecchymosis (palpable purpura is present.) - Routine Neurological Exam Present: alert, CN II-XII intact - Routine Psychiatric Exam Present: normal affect Comments: Knows she is in [facility]. Thinks today is Thursday. Oncology Results - Labs CBC & Chem 7: 04/26/17 04:05 04/26/17 04:05 Labs: Short CBC 04/26/17 Range/Units 04:05 WBC 12.9 H (4.5-11.0) T/MM3 Hgb 6.1 L (12-16) GM/DL Hct 17.5 L* (36-46) % Plt Count 120 L (130-400) T/MM3 BMP 04/26/17 04:05 Sodium 138 Potassium 4.6 Chloride 98 Carbon Dioxide 34 H BUN 69.0 H* Creatinine 1.5 H Glucose 121 H Calcium 9.6 Liver Function 04/26/17 Range/Units 04:05 Total Bilirubin 0.70 (0.20-1.30) MG/DL AST 36 (14-36) U/L ALT 35 (9-52) U/L Alkaline Phosphatase 83 (38-126) U/L Albumin 3.2 L (3.5-5.0) G/DL Urine 04/26/17 Range/Units 10:19 Urine Color Yellow (YELLOW) Urine Clarity Clear Urine pH 6.0 (5.0-8.0) Ur Specific [place] 1.010 L (1.015-1.025) Urine Protein 2+ A (NEGATIVE) Urine Glucose (UA) Negative (NEGATIVE) Laboratory Tests 04/26/17 04/26/17 04:05 04:05 WBC 12.9 H Hgb 6.1 L Hct 17.5 L* Plt Count 120 L Creatinine 1.5 H Glucose 121 H Lactate Dehydrogenase 885 H B-Natriuretic Peptide 6820 H Urine greater than 100,000 gram-negative freeman. On Levaquin. Assessment and Plan Assessment and Plan: 1. 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 Residual disease present in 2013. Flow positive for Monoclonal B cell neoplasm compatible with original diagnosis. 0.2 gm M-spike that is an IgM lambda monoclonal protein at diagnosis that has resolved. Associated with auto immune hemolytic anemia. CT scan shows dramatic response. Had 2 years of Maintenance Rituxan every 2 months from May, to March 2016. Hospitalization for hemolytic anemia 02/26/17 with swollen left leg and CT showing recurrence. Rituxan administered on weekly fpr 4 weeks . She has had improvement in anemia and less swelling in leg. 04/16/17: Hemoglobin is slightly lower at 7.3. Began maintenance rituxan. LDH [address] scan that by description shows progression of the mass in the left pelvis as the CT scan from 02/23/17 had smaller measurements. She has new mass in the left axillary area with marked bruising and left axillary area and multiple skin lesions with ecchymosis and hard firm areas at the Center compatible with either palpable purpura, cryoglobulinemia, or septic emboli. We have obtained blood cultures and are negative so far. She had cryoglobulin titer done at her last hospitalization that was negative. She had cold agglutinin titer done on 04/24. Her IgM is higher at 599. up from 306 on 02/28/17. LDH is lower at 867. Her CT scan is worrisome for progressive disease. Her underlying health status severity limits any type of chemotherapy. Will begin steroids, obtain CT scan for comparison to document progression. Consider skin biopsy for possibility of having septic emboli to especially with her history of valve replacement and worrisome skin lesions. Consider needle biopsy of the breast lesion on Thursday. We will look at supportive care. 04/26/17: Breast lesion is slightly larger than yesterday and seems to have more fluctuance at the upper end. Discussed with Dr. Vazquez and he will see patient today. Consider biopsy of the breast with possible drain and also biopsy of skin lesion. I reviewed the areas with him. CT scan comparison will be obtained tomorrow 2. 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 However with her cold agglutinins she has potential of having transfusion reaction. She is fairly asymptomatic with her hemoglobin of 6.3. Will provide supportive care with folic acid and erythropoietin. Will follow retake count. Blood is available if needed. 04/26/17: Hemoglobin 6.1 today. Patient fairly asymptomatic. We'll continue supportive care. Had Procrit on 04/25/17 3. Chronic obstructive pulmonary disease fairly severe, oxygen dependent 4. History of aortic valve replacement and mitral valve repair 5. History of GI bleed 6. Multiple skin lesions with ecchymosis and firmer areas in the Center worrisome for septic emboli. Blood cultures have been obtained. She is currently on Levaquin. Will follow. 04/26/17: Palpable purpura. Discussed with Dr. Vazquez. 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 We'll attempt to get that done tomorrow. 7. Large breast/axillary mass. It is associated with bruising. This could be related to trauma,, infection, lymphoma or other malignancy. This appears more cystic and possibly fluctuant at the upper aspect today. This is an area under the pacemaker. Reviewed with Dr. Vazquez. Will arrange biopsy tomorrow for culture, pathology, flow cytometry for lymphoma, 8. Advanced directives. Discussed advanced directives with patient and daughters. She does not want heroic measures done. This was present on the prior hospitalization. Discussed again today and I wrote DO NOT RESUSCITATE order last evening after discussing with daughter by phone Recommendations: Steroids Continue folic acid Procrit administered on 04/25/17 Supportive care No CODE BLUE Transfusion is available. It is the least incompatible unit. Would only use if she is having significant distress. - Time Spent With Patient Total time spent is greater than 50% in coordination of care (as documented) at patient's floor/unit and/or counseling patient: 25 - 35 minutes Sepsis Assessment - Evaluation Sepsis screening result: No Definite Risk
[2017-04-26] MEDS: ACETAMINOPHEN 325 MG TABLET PO PRN (12:13)
[2017-04-26] MEDS: MAG-AL + SIM ORAL LIQUID 30ml PO PRN (15:02)
[2017-04-26] MEDS: LEVOFLOXACIN PB 750 MG/150 ML BAG IV SCH (15:42)
--- NOTE | 2017-04-26 18:43 | Progress Note ---
Subjective: Pt states she is doing better. Does not appear to have symptoms from her anemia , although she is for the most part in bed. LLE edema is better. She is mentally clear. Objective Vital signs: Temperature 96.8 F 04/26/17 15:07 Pulse Rate 62 04/26/17 15:07 Respiratory Rate 18 04/26/17 15:07 Blood Pressure 132/67 04/26/17 15:07 Pulse Oximetry 99 04/26/17 15:07 Oxygen Delivery Method Nasal Cannula Oxygen Flow Rate 3 Rhythm: Normal Sinus Rhythm Weight: 48.5 kg - Constitutional Present: no acute distress - Routine HEENT Exam Head: Present: normocephalic, atraumatic Eye: Present: EOMI, PERRL - Routine Respiratory Exam Present: CTA bilaterally - Routine Cardiovascular Exam Present: RRR - Routine Abdominal Exam Present: soft, non distended, non tender - Routine Extremities Exam Absent: cyanosis, clubbing Comments: As mentioned in previous notes, pt has multiple areas of purpura (Senilis) and has marked swelling of the L L E. - Routine Skin Exam Present: ecchymosis - Routine Neurological Exam Present: alert, oriented X3, CN II-XII intact - Routine Psychiatric Exam Present: normal affect, cooperative, good insight, good judgment Results - Labs CBC & Chem 7: 04/26/17 04:05 04/26/17 04:05 Microbiology Results: Microbiology 04/24/17 15:08 Peripheral/Iv Start Blood Culture - Preliminary No Growth After 2 Days 04/24/17 15:07 Peripheral/Iv Start Blood Culture - Preliminary No Growth After 2 Days 04/24/17 16:07 Urine, Voided (Cc/notcc) Urine Culture - Preliminary Gram Negative Evens Assessment and Plan (1) Localized swelling of chest wall Current visit: Yes Status: Acute (2) Swelling of breast Current visit: Yes Status: Acute (3) Bruise of breast Current visit: Yes Status: Acute (4) NHL (non-Hodgkin's lymphoma) Current visit: Yes Status: Acute Recurrence of non-Hodgkin's lymphoma February 2017 (5) CAD (coronary artery disease) Current visit: Yes Status: Chronic (6) Pulmonary fibrosis Current visit: Yes Status: Chronic (7) Oxygen dependent Current visit: Yes Status: Chronic (8) HTN (hypertension) Current visit: Yes Status: Chronic (9) COPD (chronic obstructive pulmonary disease) Current visit: Yes Status: Chronic (10) Heart valve replaced Current visit: Yes Status: Chronic (11) GERD (gastroesophageal reflux disease) Current visit: Yes Status: Chronic (12) Hypothyroidism Current visit: Yes Status: Chronic (13) Depression Current visit: Yes Status: Chronic (14) Osteoarthritis Current visit: Yes Status: Chronic (15) History of autoimmune hemolytic anemia Current visit: Yes Status: Chronic Assessment and Plan: Summary - This is a 86 YO female with H.O NHL apparenlty a B-Cell lymphoma, that has been on Rituximab, per Dr Ramirez (Staff Medical Oncologist). 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 On admission her H/H were very discortant/ Dr Ramirez remarked this is a falsely low reading on the hematocrit due to a cold agglutinin. Pt comes with multiple lesions on her arms and legs (purpuric - non nodular) and is being investigated further to R/O infection or disease progression. Initial CT head, chest abdomen and pelvis suggest that what we are seeing is -most likely - disase progression. CT chest showed a mass in her lung that is most likely atelectasis (Right lower Lobe) and a Left breast mass that appears to be due to the underlying tumor. Her LLE is swollen with no clots due to compression of blood/lymph return in the pelvis by large lymph nodes. 2-E echo is done but report is pending. Pt does have a murmur and has H.O of valve replacement. The lesions of the arms are suggestive of purpura senilis, however if they are new they could be related to coagulopathy, or bleeding (due to underlying malignancy ) or malignant cell infiltration. Calcium was normal on admission. DIAGNOSIS - 1) NHL entering a terminal phase ? 2) RLL atelectasis/PNA -? - Continue breathing treatments - Continue levaquin. - No fever/chills. 3) L breast mass - malignant ? - Feels better today. - May consider U/S if a hemorrhage is a consideration. 4) Renal failure - Creatinine stable at 1.5 - BUN increasing. 5) ? of IgA deficiency 6) Anemia. Pt has been on Inderal for her BP probably, I dropped her dose from 60mg PO BID to 40mg PO BID, to allow her to compensate a bit for her anemia, with tachycardia. - On Epogen and MVI. CODE STATUS - PT IS A DNR. Sepsis Assessment - Evaluation Sepsis screening result: No Definite Risk Hospital Course Summary Disclaimer: The visit summary below is not to be considered part of the above Progress Note. Hospital Course: 04/24/17- Admit Admit patient as outpatient observation under care of Dr. Norwood for acute swelling of left chest wall and left breast Will initiate an acute evaluation on admission. Obtain the following laboratory studies CBC, CMP, magnesium, urinalysis, blood cultures, stool for occult blood. Will obtain radiology studies including CT of the head, chest, abdomen and pelvis. Given worsening left lower extremity swelling. Will also obtain a venous Doppler of bilateral lower extremities to rule out acute thrombus. Monitor patient on cardiac telemetry and obtain a 12-lead EKG given the amount of swelling over the left anterior chest wall. Continue patient on her home oxygen regimen Given reported dark stools, will obtain a stool for occult blood Will review all home medications once reconciled by nursing staff SCD to bilateral lower ext for DVT prophylaxis At this point patient is a Full Code. Family will discuss further with other family members. Will discuss further orders and plan of care with attending, Dr. Norwood. At time of discharge medical care will return to primary care provider, Dr. Abhishek Muro
--- NOTE | 2017-04-26 21:41 | Consultation ---
DATE OF CONSULTATION 04/26/2017 HISTORY This patient is 86 years old. This patient is known to have splenic marginal zone B-cell lymphoma. The patient underwent splenectomy in 2008. She has stage IV disease with liver and bone marrow involvement. She has continued to have some residual disease since then. She has been treated with Rituxan. The patient did notice some swelling at her left breast and pain at her left breast on 04/23/2017. She did go in and have an office visit with Dr. Ramirez on 04/24/2017 and showed him this area of swelling at the left breast. The patient also gave a history at this time that she had noticed the appearance of some ecchymotic lesions at her arms and at the left lower extremity. The patient was admitted to [facility] from the office of Dr. Ramirez on 04/24/2017. The patient is known to have anemia. She does have a history of autoimmune hemolytic anemia. The patient also has some thrombocytopenia. The patient is anticoagulated with Plavix. PHYSICAL EXAMINATION VITAL SIGNS: Temperature is 98.9 degrees oral. Pulse is 68. Respiratory rate is 18. Blood pressure is 145/69. Oxygen saturation is 91% at 3 liters per minute by nasal cannula. CHEST: The patient does have a permanent cardiac pacemaker pulse generator in place at the left anterior chest at the left infraclavicular area. BREASTS: The patient does have swelling at the lateral aspect of the left breast. There is a mass or at least some swelling at this area. This does feel fluctuant. The area of swelling is 16 cm in size in a superior-to- inferior direction. It is about 10 cm wide. This is all at the lateral aspect of the left breast at the upper outer quadrant and the lower outer quadrant of the left breast. There is fluctuance at this area. There is no tenderness at this area. There is no redness of the skin over this area. There is minimal bruising at this area. EXTREMITIES: The patient does have areas of ecchymoses at the right and left upper extremities. This seems most prominent at the left upper extremity. There are additional areas of ecchymoses at the left lower extremity. There are some firm areas at the center of these areas of ecchymoses. LABORATORY DATA White blood cell count is 12,900 with no bands. Hemoglobin is 6.1. Hematocrit is 17.5. Platelet count is 120. INR was 1.16 on 04/24/2017. IMAGING DATA This patient did have a CT scan of the head, chest, abdomen, and pelvis without contrast performed on 04/24/2017. The CT scan of the chest shows a cardiac pacemaker in place. The CT scan shows a new large mass at the left breast. This measures 16 cm in a craniocaudal dimension and 4.9 cm in an anterior- posterior direction on the sagittal image. There is no axillary lymphadenopathy associated with this left breast mass. The CT scan also shows posterior mediastinal and extensive retroperitoneal, left pelvic, and inguinal lymphadenopathy. IMPRESSION 1. Splenic marginal zone B-cell lymphoma. 2. Large fluctuant mass at lateral aspect of left breast. This could be an area of recurrent lymphoma. This could be some type of hematoma. It could possibly be some type of abscess. 3. Multiple ecchymoses at the extremities with an appearance worrisome for septic emboli. 4. Anemia with hemoglobin of 6.1 and hematocrit of 17.5 today. The patient does have a history of autoimmune hemolytic anemia. 5. Thrombocytopenia with platelet count of 120,000 today. 6. Anticoagulation with Plavix. 7. Severe oxygen-dependent chronic obstructive pulmonary disease. 8. Status post aortic valve replacement and mitral valve repair. 9. Coronary artery disease. 10. Status post cardiac catheterization with placement of a bare-metal stent at the left circumflex artery on 05/26/[address] Guerrero at [facility]. 11. Hypertension. RECOMMENDATIONS 1. Biopsy of one of the areas of ecchymosis at the left upper extremity. 2. Biopsy of left breast mass. The specimen will be submitted to the pathologist to look for recurrent lymphoma. This specimen will also be submitted for culture studies. If the patient is found to have a hematoma at the left breast at this time, the hematoma could be incised and evacuated. If the patient is found to have an abscess, the patient can undergo incision and drainage of the abscess. PATIENT EDUCATION I did talk with the patient today about my impression and my recommendations as described above. The nature of the procedure that would be performed for biopsy of the skin lesion at the arm and biopsy of the breast or possible drainage of the breast was explained to the patient. She did appear to understand. She does wish to proceed with this. [facility]iel
[2017-04-26] MEDS: SALINE FLUSH 10ml SYRINGE IVF PRN (21:52)
[2017-04-27] MEDS: LORazepam 0.5 MG TABLET PO PRN ×4 (01:05→22:25)
[2017-04-27] MEDS: BUDESONIDE INH.SOLN 0.5mg/2ml NEB AEROSOL SCH ×2 (07:23→18:59)
[2017-04-27] MEDS: ALBUTEROL/IPRATROPIUM 2.5mg-0.5mg/3ml NEB IH SCH ×4 (07:23→18:59)
--- NOTE | 2017-04-27 09:45 | Progress Note ---
<Veronica Esquivel V - Last Filed: 04/27/17 09:38> Subjective: Erika is seen today in follow up this morning as she is sleeping in bed with oxygen at 3 liters. She is sleeping however does arouse for examination. She is noted to be mildly tachypnic in her breathing pattern. She denies feeling any pain currently. She is voiding without difficulty , There is no bowel movements recorded since admission. Objective Vital signs: Temperature 96.1 F L 04/27/17 07:00 Pulse Rate 66 04/27/17 07:00 Respiratory Rate 24 04/27/17 07:15 Blood Pressure 150/71 H 04/27/17 07:00 Pulse Oximetry 100 04/27/17 07:15 Oxygen Delivery Method Nasal Cannula Oxygen Flow Rate 3 Weight: 47.3 kg - Constitutional Present: mild distress - Routine HEENT Exam Head: Present: normocephalic, atraumatic Eye: Present: EOMI, PERRL ENT: Present: mucous membranes moist - Routine Respiratory Exam Present: diminished air movement - Routine Cardiovascular Exam Present: RRR, S1, S2 - Routine Abdominal Exam Present: soft, normoactive bowel sounds - Routine Extremities Exam Comments: LLE 2-3+ edema - Routine Skin Exam Present: intact Comments: Multiple areas of Purpura throughout entire body - Routine Neurological Exam Present: alert, oriented X3, CN II-XII intact - Routine Psychiatric Exam Present: normal affect, normal thought process Results - Labs CBC & Chem 7: 04/26/17 04:05 04/26/17 04:05 Microbiology Results: Microbiology 04/24/17 16:07 Urine, Voided (Cc/notcc) Urine Culture - Final Citrobacter farmeri 04/24/17 15:08 Peripheral/Iv Start Blood Culture - Preliminary No Growth After 2 Days 04/24/17 15:07 Peripheral/Iv Start Blood Culture - Preliminary No Growth After 2 Days Assessment and Plan (1) Localized swelling of chest wall Current visit: Yes Status: Acute (2) Swelling of breast Current visit: Yes Status: Acute (3) Bruise of breast Current visit: Yes Status: Acute (4) NHL (non-Hodgkin's lymphoma) Current visit: Yes Status: Acute Recurrence of non-Hodgkin's lymphoma February 2017 (5) CAD (coronary artery disease) Current visit: Yes Status: Chronic (6) Pulmonary fibrosis Current visit: Yes Status: Chronic (7) Oxygen dependent Current visit: Yes Status: Chronic (8) HTN (hypertension) Current visit: Yes Status: Chronic (9) COPD (chronic obstructive pulmonary disease) Current visit: Yes Status: Chronic (10) Heart valve replaced Current visit: Yes Status: Chronic (11) GERD (gastroesophageal reflux disease) Current visit: Yes Status: Chronic (12) Hypothyroidism Current visit: Yes Status: Chronic (13) Depression Current visit: Yes Status: Chronic (14) Osteoarthritis Current visit: Yes Status: Chronic (15) History of autoimmune hemolytic anemia Current visit: Yes Status: Chronic Assessment and Plan: 04/27/17 Erika continues on oxygen by nasal canula as she is chronically on home oxygen. Appreciate consulstation by Dr Ramirez and Dr Vazquez. Planning for biopsy of Purpura on left upper arm as well as left breast later today Continue with breathing treatments and coverage of Levaquin for antimicrobial coverage of possible pneumonia versus atelectasis Continue to monitor blood counts. Continue on Epogen. Hgb yesterday was 6.1 however she is mostly asymptomatic Will discuss further plan of care with attending, Dr Norwood Again patient is a DNR Sepsis Assessment - Evaluation Sepsis screening result: No Definite Risk Hospital Course Summary Disclaimer: The visit summary below is not to be considered part of the above Progress Note. Hospital Course: 04/24/17- Admit Admit patient as outpatient observation under care of Dr. Norwood for acute swelling of left chest wall and left breast Will initiate an acute evaluation on admission. Obtain the following laboratory studies CBC, CMP, magnesium, urinalysis, blood cultures, stool for occult blood. Will obtain radiology studies including CT of the head, chest, abdomen and pelvis. Given worsening left lower extremity swelling. Will also obtain a venous Doppler of bilateral lower extremities to rule out acute thrombus. Monitor patient on cardiac telemetry and obtain a 12-lead EKG given the amount of swelling over the left anterior chest wall. Continue patient on her home oxygen regimen Given reported dark stools, will obtain a stool for occult blood Will review all home medications once reconciled by nursing staff SCD to bilateral lower ext for DVT prophylaxis At this point patient is a Full Code. Family will discuss further with other family members. Will discuss further orders and plan of care with attending, Dr. Norwood. At time of discharge medical care will return to primary care provider, Dr. Abhishek Muro 04/27/17 Erika continues on oxygen by nasal canula as she is chronically on home oxygen. Appreciate consulstation by Dr Ramirez and Dr Vazquez. Planning for biopsy of Purpura on left upper arm as well as left breast later today Continue with breathing treatments and coverage of Levaquin for antimicrobial coverage of possible pneumonia versus atelectasis Continue to monitor blood counts. Continue on Epogen. Hgb yesterday was 6.1 however she is mostly asymptomatic Will discuss further plan of care with attending, Dr Norwood Again patient is a DNR <Devin Norwood - Last Filed: 04/27/17 13:11> Objective Vital signs: Temperature 96.1 F L 04/27/17 07:00 Pulse Rate 61 04/27/17 11:42 Respiratory Rate 17 04/27/17 11:42 Blood Pressure 138/65 04/27/17 11:42 Pulse Oximetry 98 04/27/17 11:42 Oxygen Delivery Method Nasal Cannula Oxygen Flow Rate 3 Results - Labs CBC & Chem 7: 04/27/17 09:56 04/26/17 04:05 Microbiology Results: Microbiology 04/24/17 16:07 Urine, Voided (Cc/notcc) Urine Culture - Final Citrobacter farmeri 04/24/17 15:08 Peripheral/Iv Start Blood Culture - Preliminary No Growth After 2 Days 04/24/17 15:07 Peripheral/Iv Start Blood Culture - Preliminary No Growth After 2 Days Assessment and Plan (1) Localized swelling of chest wall Current visit: Yes Status: Acute (2) Swelling of breast Current visit: Yes Status: Acute (3) Bruise of breast Current visit: Yes Status: Acute (4) NHL (non-Hodgkin's lymphoma) Current visit: Yes Status: Acute (5) CAD (coronary artery disease) Current visit: Yes Status: Chronic (6) Pulmonary fibrosis Current visit: Yes Status: Chronic (7) Oxygen dependent Current visit: Yes Status: Chronic (8) HTN (hypertension) Current visit: Yes Status: Chronic (9) COPD (chronic obstructive pulmonary disease) Current visit: Yes Status: Chronic (10) Heart valve replaced Current visit: Yes Status: Chronic (11) GERD (gastroesophageal reflux disease) Current visit: Yes Status: Chronic (12) Hypothyroidism Current visit: Yes Status: Chronic (13) Depression Current visit: Yes Status: Chronic (14) Osteoarthritis Current visit: Yes Status: Chronic (15) History of autoimmune hemolytic anemia Current visit: Yes Status: Chronic Assessment and Plan: Summary - This is a 86 YO female with H.O NHL apparenlty a B-Cell lymphoma, that has been on Rituximab, per Dr Ramirez (Staff Medical Oncologist). 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 On admission her H/H were very discortant/ Dr Ramirez remarked this is a falsely low reading on the hematocrit due to a cold agglutinin. Pt comes with multiple lesions on her arms and legs (purpuric - non nodular) and is being investigated further to R/O infection or disease progression. Initial CT head, chest abdomen and pelvis suggest that what we are seeing is -most likely - disase progression. CT chest showed a mass in her lung that is most likely atelectasis (Right lower Lobe) and a Left breast mass that appears to be due to the underlying tumor. Her LLE is swollen with no clots due to compression of blood/lymph return in the pelvis by large lymph nodes. Pt does have a murmur and has H.O of valve replacement; 2-D echo pending. The lesions of the arms are suggestive of purpura senilis, however if they are new they could be related to coagulopathy, or bleeding (due to underlying malignancy) or malignant cell infiltration. Calcium was normal on admission. DIAGNOSIS - 1) NHL entering a terminal phase ? 2) RLL atelectasis/PNA -? - Continue breathing treatments - Continue levaquin. - No fever/chills. 3) L breast mass - malignant ? - Feels better today. - May consider U/S if a hemorrhage is a consideration. 4) Renal failure - Creatinine stable at 1.5 - BUN increasing. 5) ? of IgA deficiency 6) Anemia, with very low hemoglobin; however pt has minimal signs of acute anemia. Pt has been on Inderal for her BP probably, I dropped her dose from 60mg PO BID to 40mg PO BID (04/26), to allow her to compensate a bit for her anemia, with increased HR. - On Epogen and MVI. - Transfussion will be a last resort as pt will react due to auto-antibodies (2 U per typed and crossed). CODE STATUS - PT IS A DNR. Hospital Course Summary Disclaimer: The visit summary below is not to be considered part of the above Progress Note.
--- NOTE | 2017-04-27 09:48 | Anesthesia Preoperative Report ---
Anesthesia Preoperative Record - Date and Time Date: 04/27/17 Preoperative Diagnosis: recurrent non hodgkins lymphoma Proposed Procedure: I&D of left breast/ left arm biopsy NPO Since Date: 04/27/17 NPO Since Time: 00:00 Allergies/Adverse Reactions: Allergies Allergy/AdvReac Type Severity Reaction Status Date / Time cefuroxime Allergy Mild GI upset Verified 02/26/17 16:17 Cephalosporins Allergy Unknown rash Verified 02/26/17 16:17 fentanyl Allergy Unknown rash Verified 02/26/17 16:17 - Vital Signs Vital Signs: Temperature 96.1 F L 04/27/17 07:00 Pulse Rate 66 04/27/17 07:00 Respiratory Rate 24 04/27/17 07:15 Blood Pressure 150/71 H 04/27/17 07:00 Pulse Oximetry 100 04/27/17 07:15 Oxygen Delivery Method Nasal Cannula Oxygen Flow Rate 3 Height and Weight: Height 1.57 m Weight 47.3 kg Body Mass Index 19.0 - Medications Inpatient Medications: Current Medications Acetaminophen (Tylenol) 325 mg PO Q4HR PRN PRN Reason: P Last Admin: 04/26/17 12:13 Dose: 325 mg Al Hydroxide/Mg Hydroxide (Maalox Plus) 30 ml PO Q3H PRN PRN Reason: Indigestion Last Admin: 04/26/17 15:02 Dose: 30 ml Albuterol/Ipratropium (Duoneb) 3 ml IH QID [facility] Last Admin: 04/27/17 07:23 Dose: 3 ml Budesonide (Pulmicort Inhalation) 0.5 mg AEROSOL RTBID [facility] Last Admin: 04/27/17 07:23 Dose: 0.5 mg Dexamethasone (Decadron) 4 mg IVP BID [facility] Last Admin: 04/26/17 21:51 Dose: 4 mg Diphenhydramine HCl (Benadryl) 25 mg PO Q6H PRN PRN Reason: Itching Last Admin: 04/26/17 22:51 Dose: 25 mg Folic Acid (Folate) 1 mg PO DAILY [facility] Last Admin: 04/26/17 08:12 Dose: 1 mg Hydroxyzine HCl (Atarax) 25 mg PO Q6H PRN PRN Reason: Itching Last Admin: 04/26/17 23:31 Dose: 25 mg Hyoscyamine (Levsin) 0.125 mg SL Q4H PRN PRN Reason: SEC Levofloxacin/Dextrose (Levaquin Premix) 750 mg in 150 mls @ 100 mls/hr IV Q48H [facility] Last Infusion: 04/26/17 17:17 Dose: Infused Lorazepam (Ativan) 0.5 - 1 mg PO Q4H PRN PRN Reason: ANXIETY/RESTLESSNESS Last Admin: 04/27/17 01:05 Dose: 0.5 mg Multi-Ingredient Ointment (Analgesic Stevenson) 1 applic TP PRN PRN PRN Reason: MUSCPAIN Last Admin: 04/25/17 13:34 Dose: 1 applic Pantoprazole Sodium (Protonix Iv) 40 mg IVP DAILY [facility] Last Admin: 04/26/17 08:13 Dose: 40 mg Propranolol HCl (Inderal) 40 mg PO BID [facility] Last Admin: 04/26/17 21:51 Dose: 40 mg Sodium Chloride (Iv Flush) 10 - 80 ml IVF PRN PRN PRN Reason: Flushing Last Admin: 04/26/17 21:52 Dose: 10 ml Home Medications: Home Medications Medication Instructions Recorded Confirmed Type Multivitamins (Multivitamin) 1 tab PO DAILY #0 tab 04/10/14 04/24/17 History LORazepam [Ativan] 0.5 mg PO BID #0 06/06/14 04/24/17 History Pantoprazole Sodium [Protonix] 40 mg PO BID #0 06/06/14 04/24/17 History Atorvastatin Calcium 20 mg PO HS #0 05/26/16 04/24/17 History Clopidogrel Bisulfate [Plavix] 75 mg PO DAILY #0 tab 05/26/16 04/24/17 History Acetaminophen [Tylenol] 1 - 2 tab PO Q4HR PRN #0 02/26/17 04/24/17 History Arformoterol Neb [Brovana Neb] 15 mcg AEROSOL BID #0 vial 02/26/17 04/24/17 History Budesonide 0.25 mg AEROSOL BID #0 02/26/17 04/24/17 History HydrOXYzine [Atarax] 25 mg PO QID PRN #0 02/26/17 04/24/17 History Hyoscyamine Sulfate [Levsin-Sl] 0.125 mg SL Q4H PRN #0 02/26/17 04/24/17 History LORazepam [Lorazepam] 0.5 - 1 mg PO Q4H PRN #0 02/26/17 04/24/17 History Menthol [Biofreeze] 1 applic TP PRN PRN #0 02/26/17 04/24/17 History Ondansetron [Ondansetron Odt] 8 mg PO Q8H PRN #0 02/26/17 04/24/17 History Propranolol HCl 60 mg PO BID #0 02/27/17 04/24/17 History Dexamethasone 2 mg PO DAILY 04/24/17 04/24/17 History - Medical History Respiratory: Reports: Other (Oxygen dependant) Cardiovascular: Reports: Arrhythmia, Congestive Heart Failure, High Cholesterol Renal/Endocrine: Reports: Renal Failure - Surgical History HEENT Surgeries: Reports: Eye Surgery (cataract sx) Cardiac Surgeries/Treatments: Reports: Cardiac Catheterization, Pacemaker ( medatronic?), Valve Replacement (aortic) Musculoskeletal Surgery/Tx: Reports: Shoulder Arthroscopy (rotator cuff) Anesthesia Reactions: None Hx Family Anesthesia Reaction: No History of Motion Sickness: No - Social History Smoking Status: Never smoker Hx Chewing Tobacco Use: No Second Hand Exposure: No Substance Use Type: does not use Alcohol Intake Frequency: does not drink - Pertinent Findings Laboratory: CBC and BMP 04/26/17 04:05 04/26/17 04:05 Urine 04/26/17 Range/Units 10:19 Urine Color Yellow (YELLOW) Urine Clarity Clear Urine pH 6.0 (5.0-8.0) Ur Specific [place] 1.010 L (1.015-1.025) Urine Protein 2+ A (NEGATIVE) Urine Glucose (UA) Negative (NEGATIVE) EKG Rhythm: Normal Sinus Rhythm - Physical Exam Respiratory Exam: Present: lungs clear Cardiovascular Exam: Present: regular rate and rhythm - Airway Assessment Mallampati Score: II TMD: 3 Fingerbreadths Neck Extension: fair Teeth: upper dentures, lower dentures Overall Assessment: may be difficult intubation - ASA ASA Score: 4 - Plan Anesthesia: General Inhalation Gases - Discussion Discussion: Discussed risks/options/alternatives of anesthesia and questions answered. Patient consents. Nursing pain assessment noted. Attestation Statement: Prior to the delivery of any anesthetic medication, I examined the patient, developed the plan, obtained the patient's consent and discussed the risk and benefits of the procedure with the patient/guardian. - Additional Information Seen by Anesthesia: Yes
[2017-04-27] MEDS: PANTOPRAZOLE 40 MG INJECTION IVP SCH (10:32)
[2017-04-27] MEDS: DEXAMETHASONE 4 MG/ML INJECTION IVP SCH ×2 (10:32→21:50)
[2017-04-27] MEDS: FOLIC ACID 1 MG TABLET PO SCH (10:33)
[2017-04-27] MEDS: PROPRANOLOL 20 MG TABLET PO SCH (10:33)
[2017-04-27] MEDS: SALINE FLUSH 10ml SYRINGE IVF PRN (10:33)
[2017-04-27] MEDS ORDERED: PROPOFOL 500 MG/50 ML VIAL IV ONE (12:03)
[2017-04-27] MEDS: NS 1,000 ML IV SCH (12:22)
[2017-04-27] MEDS ORDERED: BUPIVACAINE 0.25% (2.5mg/ml) PF 30ml INJECTION OPSITE ONE (12:38)
[2017-04-27] MEDS ORDERED: EPHEDRINE 50mg/ml INJECTION ONE (13:02)
[2017-04-27] MEDS ORDERED: PROPOFOL 20 ML ONE (13:13)
--- NOTE | 2017-04-27 13:31 | General Surgery Procedure Note ---
Date of Procedure: 04/27/17 Surgeon: Taylor Postoperative Diagnosis: Left breast mass,purpura at left arm Procedure: Left breast biopsy,biopsy of skin at left arm Estimated Blood Loss: See Anesthesia Record.
--- NOTE | 2017-04-27 16:47 | Progress Note ---
Oncology Subjective Poyen had surgery today. She is feeling less pain and pressure in the breast area. She is having continued shortness of breath that is alleviated by oxygen. It is exacerbated by movement and exercise. Review of systems: Gen.: Negative for fever or chills, positive malaise Eyes: Negative eye discharge, eye pain ENT: Negative for nosebleeds, mouth sores Lymph: Positive enlarged lymph nodes, no night sweats Respiratory: Negative for cough, positive for shortness of breath, negative hemoptysis, Cardiac: Negative for chest pain, palpitations, positive swelling GI: Negative for nausea, negative for vomiting, negative for diarrhea Genitourinary: No urgency, no dysuria, no hematuria positive for incontinence Musculoskeletal: Positive for weakness, no joint pain Neurologic: Negative for headache, negative for focal weakness, negative for numbness Exam Vital signs: Temperature 96 F L 04/27/17 16:00 Pulse Rate 65 04/27/17 16:00 Respiratory Rate 20 04/27/17 16:00 Blood Pressure 130/65 04/27/17 16:00 Pulse Oximetry 100 04/27/17 16:00 Oxygen Delivery Method Nasal Cannula Oxygen Flow Rate 3 Fraction of Inspired Oxygen 3 - Constitutional no acute distress Comments: On oxygen in no acute distress - Routine HEENT Exam Head: Present: normocephalic Eye: Present: EOMI, PERRL. Absent: scleral injection ENT: Present: mucous membranes moist - Routine Neck Exam Present: supple. Absent: lymphadenopathy - Routine Chest/Breast/Axilla Exam Breast: Present: tenderness, mass (left breast mass is smaller and has surgical bandage in place. It has more the appearance of a hematoma that was drained.) - Routine Respiratory Exam Present: wheezes (few), distant breath sounds. Absent: accessory muscle use, respiratory distress - Routine Cardiovascular Exam Present: RRR, murmur - Routine Abdominal Exam Present: soft, non tender. Absent: distended - Routine Extremities Exam Present: edema (left leg greater than right leg). Absent: cyanosis - Routine Skin Exam Present: ecchymosis (present on arms and legs biopsy of lesion left posterior arm.) - Routine Neurological Exam Present: alert, CN II-XII intact, moving all extremities - Routine Psychiatric Exam Present: normal affect Oncology Results - Labs CBC & Chem 7: 04/27/17 09:56 04/26/17 04:05 Labs: Short CBC 04/27/17 Range/Units 09:56 WBC 17.5 H (4.5-11.0) T/MM3 Hgb 5.9 L* (12-16) GM/DL Hct 14.4 L* D (36-46) % Plt Count 115 L (130-400) T/MM3 - Impressions Laboratory Tests 04/24/17 04/25/17 04/25/17 14:12 04:42 04:42 WBC Hgb Hct MCV Plt Count Nucleated RBCs 22 13 Percent Retic Lactate Dehydrogenase 867 H 04/26/17 04/26/17 04/27/17 04:05 04:05 09:56 WBC 17.5 H Hgb 5.9 L* Hct 14.4 L* D MCV 126.3 H Plt Count 115 L Nucleated RBCs 23 46 Percent Retic 14.3 H Lactate Dehydrogenase 885 H Assessment and Plan Assessment and Plan: 1. 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 Residual disease present in 2013. Flow positive for Monoclonal B cell neoplasm compatible with original diagnosis. 0.2 gm M-spike that is an IgM lambda monoclonal protein at diagnosis that has resolved. Associated with auto immune hemolytic anemia. CT scan shows dramatic response. Had 2 years of Maintenance Rituxan every 2 months from May, to March 2016. Hospitalization for hemolytic anemia 02/26/17 with swollen left leg and CT showing recurrence. Rituxan administered on weekly fpr 4 weeks . She has had improvement in anemia and less swelling in leg. 04/16/17: Hemoglobin is slightly lower at 7.3. Began maintenance rituxan. LDH [address] scan that by description shows progression of the mass in the left pelvis as the CT scan from 02/23/17 had smaller measurements. She has new mass in the left axillary area with marked bruising and left axillary area and multiple skin lesions with ecchymosis and hard firm areas at the Center compatible with either palpable purpura, cryoglobulinemia, or septic emboli. We have obtained blood cultures and are negative so far. She had cryoglobulin titer done at her last hospitalization that was negative. She had cold agglutinin titer done on 04/24. Her IgM is higher at 599. up from 306 on 02/28/17. LDH is lower at 867. Her CT scan is worrisome for progressive disease. Her underlying health status severity limits any type of chemotherapy. Will begin steroids, obtain CT scan for comparison to document progression. Consider skin biopsy for possibility of having septic emboli to especially with her history of valve replacement and worrisome skin lesions. Consider needle biopsy of the breast lesion on Thursday. We will look at supportive care. 04/26/17: Breast lesion is slightly larger than yesterday and seems to have more fluctuance at the upper end. Discussed with Dr. Vazquez and he will see patient today. Consider biopsy of the breast with possible drain and also biopsy of skin lesion. I reviewed the areas with him. CT scan comparison will be obtained tomorrow 04/27/17: We have been unable to obtain CT images. Breast lesion was evaluated by Dr. Vazquez and taken to surgery today. It was most compatible with hematoma. Biopsies were obtained and currently pending currently on dexamethasone. LDH is stable 2. Anemia with hemoglobin today of 6.3 with associated cold agglutinin and anti- [place] antibody present we have a type and screen that is been performed and have the least compatible units available. However with her cold agglutinins she has potential of having transfusion reaction. She is fairly asymptomatic with her hemoglobin of 6.3. Will provide supportive care with folic acid and erythropoietin. Will follow retake count. Blood is available if needed. 04/26/17: Hemoglobin 6.1 today. Patient fairly asymptomatic. We'll continue supportive care. Had Procrit on 04/25/17 04/27/17: Hemoglobin 5.9. Reticulocyte count yesterday was 14.1%. She has increased nucleated red blood cells at 46 per 100 white blood cells today. We' ll continue to follow. 3. Chronic obstructive pulmonary disease fairly severe, oxygen dependent 04/27/17: Currently stable 4. History of aortic valve replacement and mitral valve repair 5. History of GI bleed 6. Multiple skin lesions with ecchymosis and firmer areas in the Center worrisome for septic emboli. Blood cultures have been obtained. She is currently on Levaquin. Will follow. 04/26/17: Palpable purpura. Discussed with Dr. Vazquez. Lesion on left upper arm appears to be visitor services representative and would be very accessible for biopsy. We'll attempt to get that done tomorrow. 04/27/17: Palpable purpura is unchanged. Biopsy was obtained today. 7. Large breast/axillary mass. It is associated with bruising. This could be related to trauma,, infection, lymphoma or other malignancy. This appears more cystic and possibly fluctuant at the upper aspect today. This is an area under the pacemaker. Reviewed with Dr. Vazquez. Will arrange biopsy tomorrow for culture, pathology, flow cytometry for lymphoma, 04/27/17: Area drained today with biopsy cultures and flow cytometry results are pending. 8. Advanced directives. Discussed advanced directives with patient and daughters. She does not want heroic measures done. This was present on the prior hospitalization. Discussed again 04/25/17 and I wrote DO NOT RESUSCITATE order 04/24/17: after discussing with daughter by phone 9. Urinary tract infection with Citrobacter freundii currently on Levaquin to which it is sensitive. Recommendations: Continue steroids Continue folic acid Procrit administered on 04/25/17 Supportive care Await pathology. Continue Levaquin for UTI No CODE BLUE Transfusion is available. It is the least incompatible unit. Would only use if she is having significant distress. - Time Spent With Patient Total time spent is greater than 50% in coordination of care (as documented) at patient's floor/unit and/or counseling patient: 25 - 35 minutes Sepsis Assessment - Evaluation Sepsis screening result: No Definite Risk
[2017-04-27] MEDS: ACETAMINOPHEN 325 MG TABLET PO PRN (18:28)
[2017-04-27] MEDS: DiphenhydrAMINE 25 MG CAPSULE PO PRN (18:52)
[2017-04-27] MEDS: METHYL SALICYLATE/MENTHOL OINT 28gm TP PRN ×2 (19:17→22:24)
[2017-04-28] MEDS: METHYL SALICYLATE/MENTHOL OINT 28gm TP PRN (02:12)
[2017-04-28] MEDS: LORazepam 0.5 MG TABLET PO PRN ×3 (03:25→23:19)
[2017-04-28] MEDS: NS 1,000 ML IV SCH (06:22)
[2017-04-28] MEDS: ALBUTEROL/IPRATROPIUM 2.5mg-0.5mg/3ml NEB IH SCH ×4 (07:40→19:26)
[2017-04-28] MEDS: BUDESONIDE INH.SOLN 0.5mg/2ml NEB AEROSOL SCH ×2 (07:41→19:26)
[2017-04-28] MEDS: DEXAMETHASONE 4 MG/ML INJECTION IVP SCH ×2 (08:52→22:04)
[2017-04-28] MEDS: FOLIC ACID 1 MG TABLET PO SCH (08:52)
[2017-04-28] MEDS: PANTOPRAZOLE 40 MG INJECTION IVP SCH (08:53)
[2017-04-28] MEDS ORDERED: MAGNESIUM CITRATE 296ml PO ONE (09:23)
[2017-04-28] MEDS ORDERED: BISACODYL 10 MG SUPPOSITORY RECTALLY ONE (09:26)
--- NOTE | 2017-04-28 09:32 | Progress Note ---
Subjective: Pt is sitting up in bed, overall appears very stable, complaints today are - constipation - itching on the skin and tremmors. No SOB/CP, mentally clear despite profound anemia. Objective Vital signs: Temperature 95.9 F L 04/28/17 07:59 Pulse Rate 74 04/28/17 07:59 Respiratory Rate 20 04/28/17 07:59 Blood Pressure 145/67 H 04/28/17 07:59 Pulse Oximetry 96 04/28/17 07:59 Oxygen Delivery Method Nasal Cannula Oxygen Flow Rate 3 Fraction of Inspired Oxygen 3 Rhythm: Normal Sinus Rhythm Weight: 49 kg - Constitutional Present: no acute distress, thin, cachectic - Routine HEENT Exam Head: Present: normocephalic, atraumatic Eye: Present: EOMI, PERRL - Routine Respiratory Exam Present: CTA bilaterally - Routine Cardiovascular Exam Present: RRR - Routine Abdominal Exam Present: soft, non distended, non tender - Routine Extremities Exam Present: edema. Absent: cyanosis, clubbing Comments: Marked edema of the LLE. - Routine Skin Exam Comments: Pt has diffuse purpuric lesions on the extremities - probably purpura senilis but endocarditis is being investigated. - Routine Neurological Exam Present: alert, oriented X3, CN II-XII intact - Routine Psychiatric Exam Present: normal affect, cooperative, good insight, good judgment Results - Labs CBC & Chem 7: 04/28/17 04:11 04/28/17 04:11 Microbiology Results: Microbiology 04/27/17 13:08 Aspirate, Left Breast Gram Stain - Final 04/27/17 13:08 Aspirate, Left Breast Body Fluid Culture - Preliminary Culture Initiated - Results Pending 04/27/17 13:14 Surgery Site Tissue Gram Stain - Final 04/27/17 13:14 Surgery Site Tissue Surgical Culture - Preliminary Culture Initiated - Results Pending 04/24/17 15:08 Peripheral/Iv Start Blood Culture - Preliminary No Growth After 3 Days 04/24/17 15:07 Peripheral/Iv Start Blood Culture - Preliminary No Growth After 3 Days 04/24/17 16:07 Urine, Voided (Cc/notcc) Urine Culture - Final Citrobacter farmeri Assessment and Plan (1) Localized swelling of chest wall Current visit: Yes Status: Acute (2) Swelling of breast Current visit: Yes Status: Acute (3) Bruise of breast Current visit: Yes Status: Acute (4) NHL (non-Hodgkin's lymphoma) Current visit: Yes Status: Acute Recurrence of non-Hodgkin's lymphoma February 2017 (5) CAD (coronary artery disease) Current visit: Yes Status: Chronic (6) Pulmonary fibrosis Current visit: Yes Status: Chronic (7) Oxygen dependent Current visit: Yes Status: Chronic (8) HTN (hypertension) Current visit: Yes Status: Chronic (9) COPD (chronic obstructive pulmonary disease) Current visit: Yes Status: Chronic (10) Heart valve replaced Current visit: Yes Status: Chronic (11) GERD (gastroesophageal reflux disease) Current visit: Yes Status: Chronic (12) Hypothyroidism Current visit: Yes Status: Chronic (13) Depression Current visit: Yes Status: Chronic (14) Osteoarthritis Current visit: Yes Status: Chronic (15) History of autoimmune hemolytic anemia Current visit: Yes Status: Chronic Assessment and Plan: Summary - This is a 86 YO female with H.O NHL apparenlty a B-Cell lymphoma, that has been on Rituximab, per Dr Ramirez (Staff Medical Oncologist). 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 On admission her H/H were very discortant/ Dr Ramirez remarked this is a falsely low reading on the hematocrit due to a cold agglutinin. Pt comes with multiple lesions on her arms and legs (purpuric - non nodular) and is being investigated further to R/O infection or disease progression. Initial CT head, chest abdomen and pelvis suggest that what we are seeing is -most likely - disase progression. CT chest showed a mass in her lung that is most likely atelectasis (Right lower Lobe) and a Left breast mass that appears to be due to the underlying tumor. Her LLE is swollen with no clots due to compression of blood/lymph return in the pelvis by large lymph nodes. Pt does have a murmur and has H.O of valve replacement; 2-D echo pending. The lesions of the arms are suggestive of purpura senilis, however if they are new they could be related to coagulopathy, or bleeding (due to underlying malignancy) or malignant cell infiltration. Calcium was normal on admission. DIAGNOSIS - A) HEMATOLOGY/ONCOLOGY ASSESSMENT - Per Dr Ramirez (Heme/Onc attending) - ".... 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 Residual disease present in 02/2014. Flow positive for Monoclonal B cell neoplasm compatible with original diagnosis. 0.2 gm M-spike that is an IgM lambda monoclonal protein at diagnosis that has resolved. Associated with auto immune hemolytic anemia.................." 1) NHL entering a terminal phase ? 2) Anemia, with very low hemoglobin ; however pt has minimal signs of acute anemia. Pt has been on Inderal for her BP probably, I dropped her dose from 60mg PO BID to 40mg PO BID (04/26), to allow her to compensate a bit for her anemia, with increased HR. her HR is now on the 70's. Will keep an eye so it does not go up too much. - On Epogen and MVI. Hemoglobin a bit up today, pt with no signs of acute anemia. - H/H 6.4/15.9 (04/28) - On Epogen. - EKG in the AM. - Transfussion will be a last resort as pt will react due to auto- antibodies (2 U per typed and crossed). 3) Leukocytosis - gradually increasing WBC count - could be a steroid effect. - Blood cultures x 2 negative. - Check CXR in the AM. 4) L breast mass - malignant ? - Pt had biopsy done yesterday of her skin lesions. Pathology is pending. B) RLL atelectasis/PNA -? Will check a CXR tomorrow, for F/U. Place pt on Incentive spirometry today. No fever, pt has a low temperature earilier. Her Blood cultures were negative x 2 - Continue breathing treatments - Continue levaquin. C) Renal failure - Azotemia (04/28) BUN/Cr (04/28) 62/1.2 - Urine grew Citrobacter Farmeri - sensitive to levaquin. - Uric acid normal (04/26) D) PREVENTION - PANTOPRAZOLE - SCD'S CODE STATUS - PT IS A DNR. Sepsis Assessment - Evaluation Sepsis screening result: No Definite Risk Hospital Course Summary Disclaimer: The visit summary below is not to be considered part of the above Progress Note. Hospital Course: 04/24/17- Admit Admit patient as outpatient observation under care of Dr. Norwood for acute swelling of left chest wall and left breast Will initiate an acute evaluation on admission. Obtain the following laboratory studies CBC, CMP, magnesium, urinalysis, blood cultures, stool for occult blood. Will obtain radiology studies including CT of the head, chest, abdomen and pelvis. Given worsening left lower extremity swelling. Will also obtain a venous Doppler of bilateral lower extremities to rule out acute thrombus. Monitor patient on cardiac telemetry and obtain a 12-lead EKG given the amount of swelling over the left anterior chest wall. Continue patient on her home oxygen regimen Given reported dark stools, will obtain a stool for occult blood Will review all home medications once reconciled by nursing staff SCD to bilateral lower ext for DVT prophylaxis At this point patient is a Full Code. Family will discuss further with other family members. Will discuss further orders and plan of care with attending, Dr. Norwood. At time of discharge medical care will return to primary care provider, Dr. Abhishek Muro 04/27/17 Erika continues on oxygen by nasal canula as she is chronically on home oxygen. Appreciate consulstation by Dr Ramirez and Dr Vazquez. Planning for biopsy of Purpura on left upper arm as well as left breast later today Continue with breathing treatments and coverage of Levaquin for antimicrobial coverage of possible pneumonia versus atelectasis Continue to monitor blood counts. Continue on Epogen. Hgb yesterday was 6.1 however she is mostly asymptomatic Will discuss further plan of care with attending, Dr Norwood Again patient is a DNR
--- NOTE | 2017-04-28 11:43 | Progress Note ---
Oncology Subjective She complains of itching all over. She is constipated. She has some shortness of breath with exertion. Review of systems: Gen.: Negative for fever or chills, malaise Eyes: Negative eye discharge, eye pain ENT: Negative for nosebleeds, mouth sores, positive for sore throat Lymph: Positive enlarged lymph nodes, no night sweats Respiratory: Negative for cough, positive shortness of breath, negative hemoptysis, Cardiac: Negative for chest pain, palpitations, or swelling GI: Negative for nausea, negative for vomiting, negative for diarrhea positive for constipation Genitourinary: No urgency, no dysuria, no hematuria Musculoskeletal: Positive for weakness, no joint pain Neurologic: Negative for headache, negative for focal weakness, negative for numbness Skin: Positive for itching Exam Vital signs: Temperature 95.9 F L 04/28/17 07:59 Pulse Rate 74 04/28/17 07:59 Respiratory Rate 24 04/28/17 11:28 Blood Pressure 145/67 H 04/28/17 07:59 Pulse Oximetry 96 04/28/17 11:28 Oxygen Delivery Method Nasal Cannula Oxygen Flow Rate 3 Fraction of Inspired Oxygen 3 - Constitutional no acute distress, cooperative - Routine HEENT Exam Head: Present: normocephalic Eye: Present: EOMI, PERRL. Absent: scleral injection ENT: Present: mucous membranes moist - Routine Neck Exam Present: supple, lymphadenopathy - Routine Chest/Breast/Axilla Exam Breast: Present: swelling (left upper breast) - Routine Respiratory Exam Present: decreased breath sounds, rhonchi (review) - Routine Cardiovascular Exam Present: RRR, murmur (systolic) - Routine Abdominal Exam Present: soft, non tender. Absent: organomegaly Comments: Small lymph node is palpable in left inguinal area is approximately [address] scan [facility] was obtained and reviewed compared to present CT scan. This written this inguinal lymph node is new. It looks like it would be accessible for needle biopsy it is between a hernia and artery so would make biopsy a little bit more difficult. We'll request potential biopsy from radiology - Routine Extremities Exam Present: edema (left leg greater than right leg) - Routine Skin Exam Present: dry, warm, ecchymosis - Routine Neurological Exam Present: alert, oriented X3, CN II-XII intact - Routine Psychiatric Exam Present: normal affect Oncology Results - Labs CBC & Chem 7: 04/28/17 04:11 04/28/17 04:11 Labs: Short CBC 04/28/17 Range/Units 04:11 WBC 21.0 H (4.5-11.0) T/MM3 Hgb 6.4 L (12-16) GM/DL Hct 15.9 L* (36-46) % Plt Count 135 (130-400) T/MM3 BMP 04/28/17 04:11 Sodium 141 Potassium 4.4 Chloride 103 Carbon Dioxide 32 H BUN 62.0 H* Creatinine 1.2 D Glucose 136 H Calcium 9.6 - Impressions Laboratory Tests 04/24/17 04/27/17 04/28/17 15:07 09:39 04:11 WBC 21.0 H Hgb 6.4 L Hct 15.9 L* Plt Count 135 Creatinine Lactate Dehydrogenase Ser Monoclonl Protein 0.4 H* Stool Occult Blood Negative 04/28/17 04:11 WBC Hgb Hct Plt Count Creatinine 1.2 D Lactate Dehydrogenase 1111 H Ser Monoclonl Protein Stool Occult Blood CT images from such clinic were obtained and I compared them to CT from [facility]. The CT scan was from 02/23/17 at clinic the large mass in the left pelvis is fairly stable however there is new left inguinal lymph node, worsening para-aortic lymphadenopathy, new retrocrural lymph node that are suggestive of progressive disease. The left inguinal lymph node is present between the hernia and the artery. It looks like it would be accessible for needle biopsy. We'll request needle biopsy in radiology. Assessment and Plan Assessment and Plan: 1. 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 Residual disease present in 2013. Flow positive for Monoclonal B cell neoplasm compatible with original diagnosis. 0.2 gm M-spike that is an IgM lambda monoclonal protein at diagnosis that has resolved. Associated with auto immune hemolytic anemia. CT scan shows dramatic response. Had 2 years of Maintenance Rituxan every 2 months from May, to March 2016. Hospitalization for hemolytic anemia 02/26/17 with swollen left leg and CT showing recurrence. Rituxan administered on weekly fpr 4 weeks . She has had improvement in anemia and less swelling in leg. 04/16/17: Hemoglobin is slightly lower at 7.3. Began maintenance rituxan. LDH [address] scan that by description shows progression of the mass in the left pelvis as the CT scan from 02/23/17 had smaller measurements. She has new mass in the left axillary area with marked bruising and left axillary area and multiple skin lesions with ecchymosis and hard firm areas at the Center compatible with either palpable purpura, cryoglobulinemia, or septic emboli. We have obtained blood cultures and are negative so far. She had cryoglobulin titer done at her last hospitalization that was negative. She had cold agglutinin titer done on 04/24. Her IgM is higher at 599. up from 306 on 02/28/17. LDH is lower at 867. Her CT scan is worrisome for progressive disease. Her underlying health status severity limits any type of chemotherapy. Will begin steroids, obtain CT scan for comparison to document progression. Consider skin biopsy for possibility of having septic emboli to especially with her history of valve replacement and worrisome skin lesions. Consider needle biopsy of the breast lesion on Thursday. We will look at supportive care. 04/26/17: Breast lesion is slightly larger than yesterday and seems to have more fluctuance at the upper end. Discussed with Dr. Vazquez and he will see patient today. Consider biopsy of the breast with possible drain and also biopsy of skin lesion. I reviewed the areas with him. CT scan comparison will be obtained tomorrow 04/27/17: We have been unable to obtain CT images. Breast lesion was evaluated by Dr. Vazquez and taken to surgery today. It was most compatible with hematoma. Biopsies were obtained and currently pending currently on dexamethasone. LDH is stable 04/28/17: LDH is higher at 11:15. CT images were obtained and I did a comparison between each clinic from 02/[address] [facility]. The left pelvis mass is stable in size without acute changes. The left inguinal lymph node that was present on the new scan was not present previously the retroperitoneal lymph nodes near the aorta have increased in size and there is a new periaortic lymph node present. Based on the progression of lymph nodes consideration of needle biopsy of lymph node would be appropriate. I feel the left inguinal lymph node would be accessible with ultrasound guidance. We'll put in consultation for radiology for needle biopsy. 2. Anemia with hemoglobin today of 6.3 with associated cold agglutinin and anti- Kalee antibody present we have a type and screen that is been performed and have the least compatible units available. However with her cold agglutinins she has potential of having transfusion reaction. She is fairly asymptomatic with her hemoglobin of 6.3. Will provide supportive care with folic acid and erythropoietin. Will follow retake count. Blood is available if needed. 04/26/17: Hemoglobin 6.1 today. Patient fairly asymptomatic. We'll continue supportive care. Had Procrit on 04/25/17 04/27/17: Hemoglobin 5.9. Reticulocyte count yesterday was 14.1%. She has increased nucleated red blood cells at 46 per 100 white blood cells today. We' ll continue to follow. 04/28/17: Hemoglobin up to 6.4. Currently improving with steroids Procrit and folic acid. We'll continue to follow 3. Chronic obstructive pulmonary disease fairly severe, oxygen dependent 04/27/17: Currently stable 04/28/17: This remains currently stable without significant exacerbation. 4. History of aortic valve replacement and mitral valve repair 5. History of GI bleed 6. Multiple skin lesions with ecchymosis and firmer areas in the Center worrisome for septic emboli. Blood cultures have been obtained. She is currently on Levaquin. Will follow. 04/26/17: Palpable purpura. Discussed with Dr. Vazquez. 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 We'll attempt to get that done tomorrow. 04/27/17: Palpable purpura is unchanged. Biopsy was obtained today. 04/28/17: Ecchymosis this persists. Biopsy pending. Will be available tomorrow 7. Large breast/axillary mass. It is associated with bruising. This could be related to trauma,, infection, lymphoma or other malignancy. This appears more cystic and possibly fluctuant at the upper aspect today. This is an area under the pacemaker. Reviewed with Dr. Vazquez. Will arrange biopsy tomorrow for culture, pathology, flow cytometry for lymphoma, 04/27/17: Area drained today with biopsy cultures and flow cytometry results are pending. 04/28/17: Continue to have mass present. Pathology will be available tomorrow. 8. Advanced directives. Discussed advanced directives with patient and daughters. She does not want heroic measures done. This was present on the prior hospitalization. Discussed again 04/25/17 and I wrote DO NOT RESUSCITATE order 04/24/17: after discussing with daughter by phone 9. Urinary tract infection with Citrobacter freundii currently on Levaquin to which it is sensitive. Recommendations: Continue steroids Continue folic acid Procrit administered on 04/25/17 Supportive care Await pathology. Continue Levaquin for UTI Biopsy left inguinal lymph node No CODE BLUE Transfusion is available. It is the least incompatible unit. Would only use if she is having significant distress. Discussed with Dr. Norwood. Snip it of prior and new CT's taken and put in chart and sent to radiology. - Time Spent With Patient Total time spent is greater than 50% in coordination of care (as documented) at patient's floor/unit and/or counseling patient: 25 - 35 minutes Sepsis Assessment - Evaluation Sepsis screening result: No Definite Risk
--- NOTE | 2017-04-28 11:49 | Progress Note ---
DATE 04/28/2017 POSTOP DAY #1 HISTORY The patient is resting in bed at this time. PHYSICAL EXAMINATION VITAL SIGNS: Temperature is 95.9 degrees axillary. Pulse is 74. Respiratory rate is 20. Blood pressure is 145/67. Oxygen saturation is 96% on oxygen at 3 liters minute by nasal cannula. BREASTS: The wound at the left breast from the operation performed yesterday looks good. EXTREMITIES: The wound at the left upper arm from the operation performed yesterday looks good. IMPRESSION Doing well following biopsy of area of ecchymoses and purpura at left upper arm , aspiration of fluctuant mass at left breast, core needle biopsy of large fluctuant mass at left breast without imaging guidance and incision and drainage of hematoma at left breast on 04/27/2017. PLAN 1. Await culture reports on fluid aspirated from left breast and hematoma fluid expressed from left breast. 2. Await pathology report on area of ecchymosis and purpura at left upper arm which was biopsied yesterday and left breast biopsy specimens from yesterday. [facility]
[2017-04-28] MEDS: HYDROCORTISONE 1% CREAM 28.35gm TOP PRN ×3 (15:46→17:51)
[2017-04-28] MEDS: MAG-AL + SIM ORAL LIQUID 30ml PO PRN (15:58)
[2017-04-28] MEDS: SALINE FLUSH 10ml SYRINGE IVF PRN ×2 (16:45→22:10)
[2017-04-28] MEDS: LEVOFLOXACIN PB 750 MG/150 ML BAG IV SCH (16:46)
[2017-04-28] MEDS: DiphenhydrAMINE 25 MG CAPSULE PO PRN ×2 (17:17→23:19)
[2017-04-28] MEDS: HYDROCORTISONE 2.5% LOTION 59ml TOP SCH (21:43)
[2017-04-28] MEDS: POLYETHYL GLYCOL 3350 17gm PACKET PO SCH (21:49)
[2017-04-28] MEDS: HYDROMORPHONE 2 MG/ML INJECTION IVP PRN (23:34)
[2017-04-29] MEDS: ALBUTEROL/IPRATROPIUM 2.5mg-0.5mg/3ml NEB IH SCH ×4 (07:25→20:00)
[2017-04-29] MEDS: BUDESONIDE INH.SOLN 0.5mg/2ml NEB AEROSOL SCH ×2 (07:26→20:00)
--- NOTE | 2017-04-29 08:19 | XRay Report ---
INDICATION: F/U on RLL infiltrate/atelectasis PROCEDURE: CHEST 2-VIEWS UPRIGHT (PA & LAT) Encounter: Initial COMPARISON: Chest x-ray dated February 26, [address] dated April 24, 2017 FINDINGS: The peripheral subpleural area of consolidation or mass in the right lower lobe is probably unchanged although it is difficult to see radiographically. Fibrotic changes in both lungs. No new infiltrates. Small right pleural effusion. No pneumothorax. Left lung is grossly clear. Heart size and mediastinal contours are stable. Cardiac pacemaker. Impression: Stable appearance of the chest with consolidation or mass in the subpleural right lower lobe. .
[2017-04-29] MEDS ORDERED: LIDOCAINE 1% (10mg/ml) 30ml PF SDV STERI-PAK ONE (08:56)
[2017-04-29] MEDS ORDERED: MONTELUKAST 10 MG TABLET PO SCH (09:00)
[2017-04-29] MEDS: FOLIC ACID 1 MG TABLET PO SCH (10:25)
[2017-04-29] MEDS: PANTOPRAZOLE 40 MG INJECTION IVP SCH (10:25)
[2017-04-29] MEDS: DEXAMETHASONE 4 MG/ML INJECTION IVP SCH ×2 (10:25→21:32)
[2017-04-29] MEDS: HYDROCORTISONE 2.5% LOTION 59ml TOP SCH ×2 (10:26→21:33)
[2017-04-29] MEDS: DiphenhydrAMINE 25 MG CAPSULE PO PRN (13:11)
--- NOTE | 2017-04-29 13:16 | Progress Note ---
Subjective: Pt appears to be very comfortable today. She has been bothered mainly by itching and this has improved with topical hydrocortisone 2.5%. Otherwise no complaints. Objective Vital signs: Temperature 97 F 04/29/17 07:46 Pulse Rate 78 04/29/17 07:46 Respiratory Rate 14 04/29/17 07:46 Blood Pressure 158/80 H 04/29/17 07:46 Pulse Oximetry 95 04/29/17 07:46 Oxygen Delivery Method Nasal Cannula Oxygen Flow Rate 3 Fraction of Inspired Oxygen 3 Weight: 50.3 kg Comments: Paced rhythm with occ PVC's - Constitutional Present: mild distress, cachectic - Routine HEENT Exam Head: Present: normocephalic, atraumatic Eye: Present: EOMI, PERRL - Routine Cardiovascular Exam Present: irregular rhythm - Routine Abdominal Exam Present: non distended, non tender - Routine Extremities Exam Present: edema - Routine Skin Exam Present: ecchymosis - Routine Neurological Exam Present: alert, oriented X3, CN II-XII intact - Routine Psychiatric Exam Present: normal affect, cooperative Results - Labs CBC & Chem 7: 04/29/17 04:56 04/29/17 07:16 Microbiology Results: Microbiology 04/24/17 15:08 Peripheral/Iv Start Blood Culture - Preliminary No Growth After 4 Days 04/24/17 15:07 Peripheral/Iv Start Blood Culture - Preliminary No Growth After 4 Days 04/27/17 13:14 Surgery Site Tissue Gram Stain - Final 04/27/17 13:14 Surgery Site Tissue Surgical Culture - Preliminary No Growth After 1 Day 04/27/17 13:08 Aspirate, Left Breast Gram Stain - Final 04/27/17 13:08 Aspirate, Left Breast Body Fluid Culture - Preliminary No Growth After 1 Day 04/24/17 16:07 Urine, Voided (Cc/notcc) Urine Culture - Final Citrobacter farmeri Assessment and Plan (1) Localized swelling of chest wall Current visit: Yes Status: Acute (2) Swelling of breast Current visit: Yes Status: Acute (3) Bruise of breast Current visit: Yes Status: Acute (4) NHL (non-Hodgkin's lymphoma) Current visit: Yes Status: Acute Recurrence of non-Hodgkin's lymphoma February 2017 (5) CAD (coronary artery disease) Current visit: Yes Status: Chronic (6) Pulmonary fibrosis Current visit: Yes Status: Chronic (7) Oxygen dependent Current visit: Yes Status: Chronic (8) HTN (hypertension) Current visit: Yes Status: Chronic (9) COPD (chronic obstructive pulmonary disease) Current visit: Yes Status: Chronic (10) Heart valve replaced Current visit: Yes Status: Chronic (11) GERD (gastroesophageal reflux disease) Current visit: Yes Status: Chronic (12) Hypothyroidism Current visit: Yes Status: Chronic (13) Depression Current visit: Yes Status: Chronic (14) Osteoarthritis Current visit: Yes Status: Chronic (15) History of autoimmune hemolytic anemia Current visit: Yes Status: Chronic Assessment and Plan: Summary - This is a 86 YO female with H.O NHL apparenlty a B-Cell lymphoma, that has been on Rituximab, per Dr Ramirez (Staff Medical Oncologist). 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 On admission her H/H were very discortant/ Dr Ramirez remarked this is a falsely low reading on the hematocrit due to a cold agglutinin. Pt comes with multiple lesions on her arms and legs ( purpuric - non nodular) and is being investigated further to R/O infection or disease progression. Initial CT head, chest abdomen and pelvis suggest that what we are seeing is -most likely - disase progression. CT chest showed a mass in her lung that is most likely atelectasis (Right lower Lobe) and a Left breast mass that appears to be due to the underlying tumor. Her LLE is swollen with no clots due to compression of blood/lymph return in the pelvis by large lymph nodes. Pt does have a murmur and has H.O of valve replacement; 2-D echo pending. The lesions of the arms are suggestive of purpura senilis, however if they are new they could be related to coagulopathy, or bleeding (due to underlying malignancy) or malignant cell infiltration. Calcium was normal on admission. DIAGNOSIS - A) HEMATOLOGY/ONCOLOGY ASSESSMENT - Per Dr Ramirez (Heme/Onc attending) - ".... 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 Residual disease present in 02/2014. Flow positive for Monoclonal B cell neoplasm compatible with original diagnosis. 0.2 gm M-spike that is an IgM lambda monoclonal protein at diagnosis that has resolved. Associated with auto immune hemolytic anemia.................." 1) NHL entering a terminal phase ? 2) Anemia, with very low hemoglobin ; however pt has minimal signs of acute anemia. Pt has been on Inderal for her BP probably, I dropped her dose from 60mg PO BID to 40mg PO BID (04/26), to allow her to compensate a bit for her anemia, with increased HR. - On Epogen and MVI. Hemoglobin a bit up today, pt with FEW clinical signs of DECOMPENSATED acute anemia. - H/H 6.4/15.9 (04/28) - On Epogen. TRENDING UP. - Transfussion will be a last resort as pt will react due to auto- antibodies (2 U per typed and crossed). 3) Leukocytosis - gradually increasing WBC count - Now reaching a plateau. No fever, clinically stable. - Blood cultures x 2 negative. - Check CXR in the AM. 4) L breast mass - malignant ? S/P Bippsy - preliminary diagnosis is negative for cancer cells or septic emboli - Dr Acuna is checking item "B" in path report. B) RLL atelectasis/PNA -? Place pt on Incentive spirometry today. No fever, pt has a low temperature earilier. Her Blood cultures were negative x 2 - CXR done today "...............Impression: Stable appearance of the chest with consolidation or mass in the subpleural right lower lobe................." - Continue breathing treatments and levaquin. C) Renal failure - Azotemia (04/28) BUN/Cr (04/28) 62/1.2. - Hyperkalemia - this AM K=6.2 (4:56AM) -> 5.8 (7:16) EKG done at 5am - rhythm is paced. No Wide QRS or peaked T waves. - Urine grew Citrobacter Farmeri - sensitive to levaquin. - Uric acid normal (04/26) D) Pruritus, diffuse - could be related to malignancy, dry skin, or other causes - Improved with Topical Hydrocortisone. - D/C Singulair - Continue Atarax PRN. PREVENTION - PANTOPRAZOLE - SCD'S CODE STATUS - PT IS A DNR. Sepsis Assessment - Evaluation Sepsis screening result: No Definite Risk Hospital Course Summary Disclaimer: The visit summary below is not to be considered part of the above Progress Note. Hospital Course: 04/24/17- Admit Admit patient as outpatient observation under care of Dr. Norwood for acute swelling of left chest wall and left breast Will initiate an acute evaluation on admission. Obtain the following laboratory studies CBC, CMP, magnesium, urinalysis, blood cultures, stool for occult blood. Will obtain radiology studies including CT of the head, chest, abdomen and pelvis. Given worsening left lower extremity swelling. Will also obtain a venous Doppler of bilateral lower extremities to rule out acute thrombus. Monitor patient on cardiac telemetry and obtain a 12-lead EKG given the amount of swelling over the left anterior chest wall. Continue patient on her home oxygen regimen Given reported dark stools, will obtain a stool for occult blood Will review all home medications once reconciled by nursing staff SCD to bilateral lower ext for DVT prophylaxis At this point patient is a Full Code. Family will discuss further with other family members. Will discuss further orders and plan of care with attending, Dr. Norwood. At time of discharge medical care will return to primary care provider, Dr. Abhishek Muro 04/27/17 Erika continues on oxygen by nasal canula as she is chronically on home oxygen. Appreciate consulstation by Dr Ramirez and Dr Vazquez. Planning for biopsy of Purpura on left upper arm as well as left breast later today Continue with breathing treatments and coverage of Levaquin for antimicrobial coverage of possible pneumonia versus atelectasis Continue to monitor blood counts. Continue on Epogen. Hgb yesterday was 6.1 however she is mostly asymptomatic Will discuss further plan of care with attending, Dr Norwood Again patient is a DNR
--- NOTE | 2017-04-29 13:53 | Ultrasound Report ---
Indication:left inguinal node biopsy with U/S guidance Procedure:US guided needle biopsy INGUINAL LYMPH NODE BIOPSY WITH ULTRASOUND GUIDANCE: After discussing the details of the procedure, including the risks, the patient wished to proceed. Informed consent was obtained. A preprocedural timeout was performed to confirm the correct patient and procedure. Using aseptic technique, local lidocaine anesthetic, and ultrasound guidance throughout, multiple passes using a 13mm throw core 18-gauge Biopince biopsy needle were performed to obtain several tissue samples of an enlarged left inguinal lymph node measuring approximately 1.3 cm. The tissue samples were divided and placed in formalin and Jeremy's solution and sent to lab for the requested studies. The patient tolerated this procedure well. Following this, the patient was taken back to her room on the medical floor. Impression: Technically successful left inguinal lymph node biopsy with ultrasound guidance. Osmany Martinez RPA/ERIKA performed this under my personal supervision. .
--- NOTE | 2017-04-29 14:13 | Operative Note ---
DATE OF OPERATION 04/27/2017 PREOPERATIVE DIAGNOSES 1. Splenic marginal zone B-cell lymphoma. 2. Large fluctuant mass at left breast. 3. Multiple areas of ecchymosis and purpura at the extremities with an appearance worrisome for septic emboli. POSTOPERATIVE DIAGNOSES 1. Splenic marginal zone B-cell lymphoma. 2. Large fluctuant mass at left breast. 3. Multiple areas of ecchymosis and purpura at the extremities with an appearance worrisome for septic emboli. OPERATION Biopsy of area of ecchymoses and purpura at left upper arm, aspiration of large fluctuant mass at left breast, core needle biopsy of large fluctuant mass at left breast without imaging guidance and incision and drainage of hematoma at left breast. SURGEON Dr. Vazquez ANESTHESIA MAC ASA CLASS 4 FINDINGS The patient did have multiple ecchymoses and areas of purpura at the extremities. These were present at both upper extremities. These were present at the left lower extremity. There was an area at the posterior surface of left upper arm where there were some areas of purpura which were raised and palpable and where the ecchymoses and purpura was more prominent than other areas. The patient also had a large fluctuant mass at the left breast. This is at the lateral superior aspect of the left breast. The mass was approximately 16 cm in size in a [id number]-[id number]-[id number] direction. It was about 10 cm wide from right to left. The patient did have a permanent cardiac pacemaker pulse generator in place at the left infraclavicular area and this pulse generator was within the superior aspect of the left breast. The mass at the left breast did extend up to the inferior margin of this pacemaker pulse generator. There was no redness of the skin overlying this fluctuant mass. There was minimal bruising at the skin associated with this fluctuant mass. When the mass was aspirated at the time of operation today, some old dark red fluid consistent with old liquified hematoma fluid was able to be aspirated. There was no hard, firm area of the mass. All of the tissue at the mass was soft by palpation. When core needle biopsy of the mass was performed, the tissue grossly looked like yellow adipose tissue with some areas of white breast parenchyma. There was no hard dense breast tissue encountered anywhere. When the core needle biopsy incision was enlarged to an incision about 1 cm long, some more hematoma fluid was able to be expressed out of the breast tissue through this opening at the skin. This was old dark red blood. There were no large blood clots expressed out through the incision and drainage site opening. There were just some small amounts of old dark red blood which looked like liquefied hematoma fluid along with some lobules of yellow adipose tissue which were expressed out from the incision and drainage site. DESCRIPTION OF OPERATION The patient was placed in supine position on the operating table. The patient was premedicated with intravenous sedation medication administered by the nurse recreation coordinator. The patient continued to receive intravenous sedation medication administered by the nurse recreation coordinator throughout the operation to maintain patient comfort. The left upper arm was prepped and draped in routine sterile fashion. Attention was directed to a prominent area of ecchymoses and purpura at the posterior surface of the left upper arm. Bupivacaine 0.25% without epinephrine was infiltrated into skin and subcutaneous tissue at this area. A longitudinally oriented elliptical incision was made around several prominent areas of ecchymoses and purpura. An ellipse of skin and subcutaneous tissue containing these areas of ecchymoses and purpura was excised and submitted in formalin as a specimen for study by the pathologist. Hemostasis was achieved at the biopsy site at the left upper arm by coagulation of bleeding points with the monopolar electrosurgery device. Satisfactory hemostasis was achieved. The wound was closed at the left upper arm by approximating skin margins to one another with a continuous vertical mattress stitch using 4-0 nylon suture. Sterile dressings were then applied over this wound at the left upper arm. Drapes at the left upper arm were removed. Attention was directed to the mass at the left breast. The left breast was prepped and draped in routine sterile fashion. The patient continued to receive intravenous sedation medication administered by the nurse recreation coordinator. Skin and subcutaneous tissue overlying the center of the large fluctuant mass at the left breast were infiltrated with bupivacaine 0.25% without epinephrine to provide local anesthesia. An 18-gauge spinal needle and syringe were used at this time to aspirate the area of fluctuance at the left breast. The needle was introduced through the area where local anesthesia had been infiltrated. Some dark red bloody fluid was aspirated from the breast with needle and syringe at this time. This fluid was submitted to the laboratory for culture and sensitivity studies. The fluid did not appear grossly purulent. Scalpel was used to make a small incision at the aspiration site overlying the center of the fluctuant mass at the left breast. A Bard 14-gauge Max-Core disposable core biopsy instrument was used to obtain core needle biopsies from the left breast mass. These were performed circumferentially in all directions from the skin entrance site to obtain biopsies from all different aspects of this left breast mass. A total of nine core needle biopsies were obtained from areas that were spaced equally from one another throughout the mass to get union contract representative samples from throughout the left breast mass. These specimens were collected together and placed on a piece of Telfa and handed off to Jack Gama for processing. Some these specimens were available to be placed in formalin. Some specimens were available to be submitted for flow cytometry studies. Other specimens were available to be submitted for culture and sensitivity studies. Additional bupivacaine was infiltrated at the skin entrance site overlying the center of the left breast mass. The scalpel was used make a short transversely oriented 1 cm long incision at this area. Some additional hematoma fluid was then able to be expressed out from the breast through this opening at the skin. No large blood clots were expressed out anywhere. Small additional amounts of old dark red blood were able to be expressed out through the skin opening. Some lobules of yellow adipose tissue were also expressed out through the skin opening at this time. The dark red bloody fluid which was expressed out along with lobules of fatty tissue were collected and submitted for additional study by the pathologist and also submitted for additional culture studies. Hemostasis appeared be satisfactory at this site where some hematoma fluid was expressed out from the breast at the incision and drainage site. It was thought there probably would not be much additional spontaneous drainage of hematoma fluid out through this site. The incision and drainage site was therefore closed by reapproximating skin margins with a continuous vertical mattress stitch using 4-0 nylon suture to prevent this site from having to heal closed by secondary intention. Sterile dressings were applied to this site at the left breast. The patient did continue to receive intravenous sedation medication administered by the nurse recreation coordinator throughout the procedure. The patient did appear to tolerate the procedure well. The patient was transferred from the operating room to the recovery room in satisfactory condition. ELENI
--- NOTE | 2017-04-29 14:20 | Echocardiogram ---
DATE OF PROCEDURE April 27, [address] Devin Norwood This is a two-dimensional echo with spectral Doppler, color-flow and M-mode. It was obtained in a patient for endocarditis. Left atrial dimension is normal. Left ventricle end-diastolic dimension is normal. Left ventricular wall thickness is normal. LV systolic function is normal with ejection fraction of 69%. Right atrium is normal. Right ventricle is normal. Aortic root dimension is normal. Pacemaker is present in the right heart. Mitral annulus is calcified. Mitral valve leaflets are sclerotic with mild mitral regurgitation. Aortic valve appears to be a bioprosthetic valve which is well seated. Peak velocity across the aortic valve is 3.2 m/sec with peak gradient of 42 and mean gradient of 23 and valve area is calculated at 1.02 cm2. There is no aortic insufficiency. Tricuspid valve shows mild-to- moderate tricuspid regurgitation with severe pulmonary hypertension with estimated pulmonary artery systolic pressure of 85. Pulmonary valve shows mild pulmonary insufficiency. There is no pericardial effusion. IMPRESSION 1. Normal LV systolic function with ejection fraction of 69%. 2. Grossly no evidence of vegetations. 3. Pacemaker seen in right heart. 4. Mitral annulus calcification with mitral sclerosis and mild mitral regurgitation. 5. Bioprosthetic aortic valve with a valve area of 1.02 cm2. 6. Nion-qb-dffjihew tricuspid regurgitation with severe pulmonary hypertension with estimated pulmonary artery systolic pressure of 85. 7. Mild pulmonary insufficiency. MTDD
[2017-04-29] MEDS: POLYETHYL GLYCOL 3350 17gm PACKET PO SCH ×2 (15:10→21:34)
[2017-04-29] MEDS: LORazepam 0.5 MG TABLET PO PRN (16:34)
--- NOTE | 2017-04-29 16:55 | Progress Note ---
Subjective: Erika was seen with Dr. Norwood. 2 family members were present. She has noticed increased swelling to her left hand (mild). She is still weak overall but is starting to feel better. She complains of sore throat. Objective Vital signs: Temperature 97 F 04/29/17 07:46 Pulse Rate 78 04/29/17 07:46 Respiratory Rate 18 04/29/17 13:49 Blood Pressure 158/80 H 04/29/17 07:46 Pulse Oximetry 97 04/29/17 13:49 Oxygen Delivery Method Nasal Cannula Oxygen Flow Rate 3 Fraction of Inspired Oxygen 3 Weight: 50.3 kg - Constitutional Present: no acute distress - Routine HEENT Exam ENT: Absent: oropharynx clear (thrush) - Routine Cardiovascular Exam Present: S1, S2, murmur, irregular rhythm. Absent: RRR - Routine Abdominal Exam Present: soft, normoactive bowel sounds, non distended - Routine Extremities Exam Present: edema (left leg, chronic) - Routine Skin Exam Present: pallor, warm - Routine Neurological Exam Present: alert, oriented X3 - Routine Psychiatric Exam Present: normal affect, normal thought process Results - Labs CBC & Chem 7: 04/29/17 04:56 04/29/17 13:55 Microbiology Results: Microbiology 04/24/17 15:08 Peripheral/Iv Start Blood Culture - Final No Growth After 5 Days 04/24/17 15:07 Peripheral/Iv Start Blood Culture - Final No Growth After 5 Days 04/27/17 13:14 Surgery Site Tissue Gram Stain - Final 04/27/17 13:14 Surgery Site Tissue Surgical Culture - Preliminary No Growth After 2 Days 04/27/17 13:08 Aspirate, Left Breast Gram Stain - Final 04/27/17 13:08 Aspirate, Left Breast Body Fluid Culture - Preliminary No Growth After 2 Days 04/24/17 16:07 Urine, Voided (Cc/notcc) Urine Culture - Final Citrobacter farmeri Assessment and Plan (1) Localized swelling of chest wall Current visit: Yes Status: Acute (2) Swelling of breast Current visit: Yes Status: Acute (3) Bruise of breast Current visit: Yes Status: Acute (4) NHL (non-Hodgkin's lymphoma) Current visit: Yes Status: Acute Recurrence of non-Hodgkin's lymphoma February 2017 (5) CAD (coronary artery disease) Current visit: Yes Status: Chronic (6) Pulmonary fibrosis Current visit: Yes Status: Chronic (7) Oxygen dependent Current visit: Yes Status: Chronic (8) HTN (hypertension) Current visit: Yes Status: Chronic (9) COPD (chronic obstructive pulmonary disease) Current visit: Yes Status: Chronic (10) Heart valve replaced Current visit: Yes Status: Chronic (11) GERD (gastroesophageal reflux disease) Current visit: Yes Status: Chronic (12) Hypothyroidism Current visit: Yes Status: Chronic (13) Depression Current visit: Yes Status: Chronic (14) Osteoarthritis Current visit: Yes Status: Chronic (15) History of autoimmune hemolytic anemia Current visit: Yes Status: Chronic Assessment and Plan: Plan was formulated with Dr. Norwood Lymphoma - per Dr. Ramirez Anemia - on Epogen, MVI; s/p transfusion leukocytosis - no fever; monitor; continue levaquin for poss PNA + UTI ( citrobacter) Hyperkalemia/YAHIR - improving Pruritis - improving with hydrocortisone Sepsis Assessment - Evaluation Sepsis screening result: No Definite Risk Hospital Course Summary Disclaimer: The visit summary below is not to be considered part of the above Progress Note. Hospital Course: 04/24/17- Admit Admit patient as outpatient observation under care of Dr. Norwood for acute swelling of left chest wall and left breast Will initiate an acute evaluation on admission. Obtain the following laboratory studies CBC, CMP, magnesium, urinalysis, blood cultures, stool for occult blood. Will obtain radiology studies including CT of the head, chest, abdomen and pelvis. Given worsening left lower extremity swelling. Will also obtain a venous Doppler of bilateral lower extremities to rule out acute thrombus. Monitor patient on cardiac telemetry and obtain a 12-lead EKG given the amount of swelling over the left anterior chest wall. Continue patient on her home oxygen regimen Given reported dark stools, will obtain a stool for occult blood Will review all home medications once reconciled by nursing staff SCD to bilateral lower ext for DVT prophylaxis At this point patient is a Full Code. Family will discuss further with other family members. Will discuss further orders and plan of care with attending, Dr. Norwood. At time of discharge medical care will return to primary care provider, Dr. Abhishek Muro 04/27/17 Erika continues on oxygen by nasal canula as she is chronically on home oxygen. Appreciate consulstation by Dr Ramirez and Dr Vazquez. Planning for biopsy of Purpura on left upper arm as well as left breast later today Continue with breathing treatments and coverage of Levaquin for antimicrobial coverage of possible pneumonia versus atelectasis Continue to monitor blood counts. Continue on Epogen. Hgb yesterday was 6.1 however she is mostly asymptomatic Will discuss further plan of care with attending, Dr Norwood Again patient is a DNR
[2017-04-29] MEDS ORDERED: FUROSEMIDE 20 MG/2 ML INJECTION IVP ONE (17:14)
[2017-04-29] MEDS: HYDROMORPHONE 2 MG/ML INJECTION IVP PRN (17:54)
--- NOTE | 2017-04-29 18:21 | Progress Note ---
Oncology Subjective Itching and hurts all over. Not feeling well. Exam Vital signs: Temperature 97 F 04/29/17 07:46 Pulse Rate 78 04/29/17 07:46 Respiratory Rate 16 04/29/17 16:57 Blood Pressure 158/80 H 04/29/17 07:46 Pulse Oximetry 97 04/29/17 13:49 Oxygen Delivery Method Nasal Cannula Oxygen Flow Rate 3 Fraction of Inspired Oxygen 3 - Constitutional no acute distress, thin, cooperative - Routine Chest/Breast/Axilla Exam Comments: Deferred - Routine Respiratory Exam Absent: rales, wheezes - Routine Cardiovascular Exam Present: RRR - Routine Abdominal Exam Present: soft, non tender - Routine Extremities Exam Absent: cyanosis, clubbing - Routine Neurological Exam Present: alert, oriented X3 Oncology Results - Labs CBC & Chem 7: 04/29/17 04:56 04/29/17 13:55 Labs: Short CBC 04/29/17 Range/Units 04:56 WBC 22.8 H (4.5-11.0) T/MM3 Hgb 6.7 L (12-16) GM/DL Hct 16.3 L* (36-46) % Plt Count 126 L (130-400) T/MM3 BMP 04/29/17 04/29/17 04/29/17 04:56 07:16 13:55 Sodium 140 140 Potassium 6.2 H* D 5.8 H 4.9 Chloride 103 104 Carbon Dioxide 35 H 31 H BUN 55.0 H* 53.0 H* Creatinine 1.1 1.1 Glucose 116 H 127 H Calcium 9.8 9.9 Liver Function 04/29/17 Range/Units 04:56 Total Bilirubin 1.20 (0.20-1.30) MG/DL AST 68 H (14-36) U/L ALT 51 (9-52) U/L Alkaline Phosphatase 83 (38-126) U/L Albumin 3.1 L (3.5-5.0) G/DL Assessment and Plan Assessment and Plan: 1. 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 Treated with rituximab. 2. 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 3. Benign breast mass. 1. We'll follow-up on the results of the lymph node biopsy. 2. Continue supportive care. 3. Monitor blood counts closely. - Time Spent With Patient Total time spent is greater than 50% in coordination of care (as documented) at patient's floor/unit and/or counseling patient: less than 15 minutes Sepsis Assessment - Evaluation Sepsis screening result: No Definite Risk
[2017-04-29] MEDS: NYSTATIN 500,000 units/5 ml ORAL LIQUID PO SCH ×2 (18:59→21:33)
[2017-04-29] MEDS: SALINE FLUSH 10ml SYRINGE IVF PRN (21:31)
[2017-04-29] MEDS: MELATONIN 1 MG TABLET PO SCH (21:33)
[2017-04-30] MEDS: DiphenhydrAMINE 25 MG CAPSULE PO PRN ×4 (02:04→21:36)
[2017-04-30] MEDS: LORazepam 0.5 MG TABLET PO PRN ×4 (04:11→19:57)
[2017-04-30] MEDS: OMEPRAZOLE 20 MG CAPSULE PO SCH (05:31)
[2017-04-30] MEDS: BUDESONIDE INH.SOLN 0.5mg/2ml NEB AEROSOL SCH ×2 (07:30→20:07)
[2017-04-30] MEDS: ALBUTEROL/IPRATROPIUM 2.5mg-0.5mg/3ml NEB IH SCH ×4 (07:31→20:07)
[2017-04-30] MEDS: SALINE FLUSH 10ml SYRINGE IVF PRN ×2 (08:13→16:39)
[2017-04-30] MEDS: FOLIC ACID 1 MG TABLET PO SCH (08:13)
[2017-04-30] MEDS: DEXAMETHASONE 4 MG/ML INJECTION IVP SCH ×2 (08:13→19:59)
[2017-04-30] MEDS: NYSTATIN 500,000 units/5 ml ORAL LIQUID PO SCH ×4 (08:13→20:40)
[2017-04-30] MEDS: ACETAMINOPHEN 325 MG TABLET PO PRN (08:17)
[2017-04-30] MEDS: HYDROCODONE/APAP 5mg/325mg TABLET PO PRN ×2 (10:04→15:20)
[2017-04-30] MEDS: HYDROCORTISONE 2.5% LOTION 59ml TOP SCH ×2 (10:17→20:40)
--- NOTE | 2017-04-30 13:07 | Progress Note ---
<Veronica Esquivel V - Last Filed: 04/30/17 13:01> Subjective: Erika is seen this morning in follow-up while sitting up in the chair. On examination she denies having any pain, itching or shortness of breath. However she reports to nursing staff that she has "back pain". She did reports itching overnight and was given PRN Benadryl. She did eat 100% of breakfast and 75% of lunch. Objective Vital signs: Temperature 97.1 F 04/30/17 08:05 Pulse Rate 80 04/30/17 08:05 Respiratory Rate 16 04/30/17 11:39 Blood Pressure 140/70 H 04/30/17 08:05 Pulse Oximetry 100 04/30/17 11:39 Oxygen Delivery Method Nasal Cannula Oxygen Flow Rate 3 Fraction of Inspired Oxygen 3 Weight: 49.4 kg - Constitutional Present: no acute distress - Routine HEENT Exam Head: Present: normocephalic, atraumatic ENT: Present: mucous membranes moist - Routine Respiratory Exam Present: wheezes (slight inspiratory wheeze) - Routine Cardiovascular Exam Present: RRR, S1 - Routine Abdominal Exam Present: soft, normoactive bowel sounds - Routine Musculoskeletal Exam Musculoskeletal: Present: other (chronic back pain) - Routine Skin Exam Present: intact, warm - Routine Neurological Exam Present: alert, CN II-XII intact, moving all extremities Results - Labs CBC & Chem 7: 04/30/17 04:38 04/30/17 04:38 Microbiology Results: Microbiology 04/24/17 15:08 Peripheral/Iv Start Blood Culture - Final No Growth After 5 Days 04/24/17 15:07 Peripheral/Iv Start Blood Culture - Final No Growth After 5 Days 04/27/17 13:14 Surgery Site Tissue Gram Stain - Final 04/27/17 13:14 Surgery Site Tissue Surgical Culture - Preliminary No Growth After 2 Days 04/27/17 13:08 Aspirate, Left Breast Gram Stain - Final 04/27/17 13:08 Aspirate, Left Breast Body Fluid Culture - Preliminary No Growth After 2 Days 04/24/17 16:07 Urine, Voided (Cc/notcc) Urine Culture - Final Citrobacter farmeri Assessment and Plan (1) Localized swelling of chest wall Current visit: Yes Status: Acute (2) Swelling of breast Current visit: Yes Status: Acute (3) Bruise of breast Current visit: Yes Status: Acute (4) NHL (non-Hodgkin's lymphoma) Current visit: Yes Status: Acute Recurrence of non-Hodgkin's lymphoma February 2017 (5) CAD (coronary artery disease) Current visit: Yes Status: Chronic (6) Pulmonary fibrosis Current visit: Yes Status: Chronic (7) Oxygen dependent Current visit: Yes Status: Chronic (8) HTN (hypertension) Current visit: Yes Status: Chronic (9) COPD (chronic obstructive pulmonary disease) Current visit: Yes Status: Chronic (10) Heart valve replaced Current visit: Yes Status: Chronic (11) GERD (gastroesophageal reflux disease) Current visit: Yes Status: Chronic (12) Hypothyroidism Current visit: Yes Status: Chronic (13) Depression Current visit: Yes Status: Chronic (14) Osteoarthritis Current visit: Yes Status: Chronic (15) History of autoimmune hemolytic anemia Current visit: Yes Status: Chronic Assessment and Plan: 04/30/17 Lymphoma Anemia- autoimmune hemolytic anemia Pruritus- acute Benign breast mass Pulmonary fibrosis with chronic oxygen dependence Coronary artery disease. COPD History of heart valve replacement. Hypothyroidism GERD Depression. Osteoarthritis Plan- Lymphoma being managed by oncology team She did receive Procrit 20,000 units on 04/25. Continue to follow blood counts, this does account for the [place] increase in leukocytes. White count today is 27.7. Hemoglobin remained stable at 6.3. Continues on Decadron 4 milligrams IV twice a day Pathology of breast biopsy was negative for malignancy. Lymph node biopsy results are pending Continue on chronic oxygen as well as routine Pulmicort and DuoNeb. Continue on Levaquin for empiric pulmonary coverage as well as treatment of Citrobacter urinary tract infection Tylenol and [place] as needed for pain Pruritis - continue with Benadryl, Atarax and hydrocortisone Will discuss further care and orders with attending, Dr. Medina Sepsis Assessment - Evaluation Sepsis screening result: No Definite Risk Hospital Course Summary Disclaimer: The visit summary below is not to be considered part of the above Progress Note. Hospital Course: 04/24/17- Admit Admit patient as outpatient observation under care of Dr. Norwood for acute swelling of left chest wall and left breast Will initiate an acute evaluation on admission. Obtain the following laboratory studies CBC, CMP, magnesium, urinalysis, blood cultures, stool for occult blood. Will obtain radiology studies including CT of the head, chest, abdomen and pelvis. Given worsening left lower extremity swelling. Will also obtain a venous Doppler of bilateral lower extremities to rule out acute thrombus. Monitor patient on cardiac telemetry and obtain a 12-lead EKG given the amount of swelling over the left anterior chest wall. Continue patient on her home oxygen regimen Given reported dark stools, will obtain a stool for occult blood Will review all home medications once reconciled by nursing staff SCD to bilateral lower ext for DVT prophylaxis At this point patient is a Full Code. Family will discuss further with other family members. Will discuss further orders and plan of care with attending, Dr. Norwood. At time of discharge medical care will return to primary care provider, Dr. Abhishek Muro 04/27/17 Erika continues on oxygen by nasal canula as she is chronically on home oxygen. Appreciate consulstation by Dr Ramirez and Dr Vazquez. Planning for biopsy of Purpura on left upper arm as well as left breast later today Continue with breathing treatments and coverage of Levaquin for antimicrobial coverage of possible pneumonia versus atelectasis Continue to monitor blood counts. Continue on Epogen. Hgb yesterday was 6.1 however she is mostly asymptomatic Will discuss further plan of care with attending, Dr Norwood Again patient is a DNR 04/30/17 Lymphoma Anemia- autoimmune hemolytic anemia Pruritus- acute Benign breast mass Pulmonary fibrosis with chronic oxygen dependence Coronary artery disease. COPD History of heart valve replacement. Hypothyroidism GERD Depression. Osteoarthritis Plan- Lymphoma being managed by oncology team She did receive Procrit 20,000 units on 04/25. Continue to follow blood counts, this does account for the [place] increase in leukocytes. White count today is 27.7. Hemoglobin remained stable at 6.3. Continues on Decadron 4 milligrams IV twice a day Pathology of breast biopsy was negative for malignancy. Lymph node biopsy results are pending Continue on chronic oxygen as well as routine Pulmicort and DuoNeb. Continue on Levaquin for empiric pulmonary coverage as well as treatment of Citrobacter urinary tract infection Tylenol and [place] as needed for pain Pruritis - continue with Benadryl, Atarax and hydrocortisone Will discuss further care and orders with attending, Dr. Medina <Kristina Medina - Last Filed: 04/30/17 21:09> Objective Vital signs: Temperature 97.4 F 04/30/17 16:00 Pulse Rate 82 04/30/17 16:00 Respiratory Rate 16 04/30/17 20:10 Blood Pressure 138/73 04/30/17 16:00 Pulse Oximetry 100 04/30/17 20:10 Oxygen Delivery Method Nasal Cannula Oxygen Flow Rate 3 Fraction of Inspired Oxygen 3 Results - Labs CBC & Chem 7: 04/30/17 04:38 04/30/17 04:38 Microbiology Results: Microbiology 04/27/17 13:14 Surgery Site Tissue Gram Stain - Final 04/27/17 13:14 Surgery Site Tissue Surgical Culture - Final No Growth After 3 Days 04/27/17 13:08 Aspirate, Left Breast Gram Stain - Final 04/27/17 13:08 Aspirate, Left Breast Body Fluid Culture - Preliminary No Growth After 3 Days 04/24/17 15:08 Peripheral/Iv Start Blood Culture - Final No Growth After 5 Days 04/24/17 15:07 Peripheral/Iv Start Blood Culture - Final No Growth After 5 Days 04/24/17 16:07 Urine, Voided (Cc/notcc) Urine Culture - Final Citrobacter farmeri Assessment and Plan (1) NHL (non-Hodgkin's lymphoma) Current visit: Yes Status: Acute (2) 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 Current visit: Yes Status: Acute (3) Localized swelling of chest wall Current visit: Yes Status: Acute (4) Swelling of breast Problem details: Breast mass/hematoma Current visit: Yes Status: Acute (5) CAD (coronary artery disease) Current visit: Yes Status: Chronic (6) Pulmonary fibrosis Current visit: Yes Status: Chronic (7) Oxygen dependent Current visit: Yes Status: Chronic (8) HTN (hypertension) Current visit: Yes Status: Chronic (9) COPD (chronic obstructive pulmonary disease) Current visit: Yes Status: Chronic (10) Heart valve replaced Current visit: Yes Status: Chronic (11) GERD (gastroesophageal reflux disease) Current visit: Yes Status: Chronic (12) Hypothyroidism Current visit: Yes Status: Chronic (13) Depression Current visit: Yes Status: Chronic (14) Osteoarthritis Current visit: Yes Status: Chronic (15) UTI (urinary tract infection) Problem details: > 100,000 colonies Citrobacter Current visit: Yes Status: Acute (16) Edema of left lower extremity Current visit: Yes Status: Acute Assessment and Plan: I have independently evaluated and examined this patient. I reviewed the chart, the patient's history, and the GRAPHICS MANAGER's documented findings as above. We discussed and formulated the assessment and plan as above with additions as below: Mrs. Duque primarily complaints for back being itchy and burning. Nursing requested that Benadryl does be increased. Lengthy discussion with patient's daughters regarding discharge options but no decisions made pending pathology and final oncology plan. Patient reports that she is sleeping poorly but denied dyspnea. NAD, alert Crackles at the bases bilaterally Regular rhythm +3 edema left lower extremity, no edema right lower extremity Outpatient iron studies reviewed, Procrit given recently. Hematology plans pending-discussed with Zofia Lopez APRN. Hemoglobin fairly stable (although quite low)-on steroids. Bilirubin/alkaline phosphatase slightly higher today-recheck in a.m. Day 7 Levaquin for UTI-discontinue Benadryl increased for comfort, hydroxyzine also available. Hospital Course Summary Disclaimer: The visit summary below is not to be considered part of the above Progress Note.
[2017-04-30] MEDS ORDERED: FALL RISK - PHARMACY CONSULT MC PRN (14:23)
--- NOTE | 2017-04-30 15:54 | Progress Note ---
Oncology Subjective Reclining in hospital bed. Daughters at bedside. Alert and oriented. Mildly anxious. Denies pain currently, continues to have intermittent itching and weakness. General: No fever, no night sweats Eyes: No redness, no pain, no diplopia ENT: No mouth sores, no trouble swallowing Cardiac: No chest pain no palpitations Pulmonary: No cough, no shortness of breath, no wheezing Abdomen: No pain, no nausea vomiting, no diarrhea or constipation : No urgency, frequency, dysuria, or hematuria Musculoskeletal: No arthritis, no myalgias Neurological: No headaches, no focal weakness Skin: No rash, no sores. Intermittent itching Psychiatric: Mildly anxious about pending pathology results and discharge planning. <Shira Franco - 04/30/17 15:54> Exam Vital signs: Temperature 98.0 F 05/01/17 08:00 Pulse Rate 90 05/01/17 08:00 Respiratory Rate 16 05/01/17 11:30 Blood Pressure 135/78 05/01/17 08:00 Pulse Oximetry 97 05/01/17 11:30 Oxygen Delivery Method Nasal Cannula Oxygen Flow Rate 2 Fraction of Inspired Oxygen 3 <Jose Francisco Ramirez - 05/01/17 13:11> Temperature 97.1 F 04/30/17 08:05 Pulse Rate 80 04/30/17 08:05 Respiratory Rate 16 04/30/17 11:39 Blood Pressure 140/70 H 04/30/17 08:05 Pulse Oximetry 100 04/30/17 11:39 Oxygen Delivery Method Nasal Cannula Oxygen Flow Rate 3 Fraction of Inspired Oxygen 3 <Shira rFanco - 04/30/17 15:54> - Constitutional no acute distress, thin <Shira Franco 04/30/17 15:54> - Routine HEENT Exam Head: Present: normocephalic <Shira Franco - 04/30/17 15:54> Eye: Present: EOMI. Absent: scleral injection <Shira Franco - 04/30/17 15: 54> ENT: Present: mucous membranes moist <Shira Franco - 04/30/17 15:54> - Routine Neck Exam Present: supple. Absent: thyromegaly, tenderness <Shira Franco - 04/30/17 15:54> - Routine Chest/Breast/Axilla Exam Breast: Present: swelling <Shira Franco - 04/30/17 16:29> Comments: Decreased swelling/bruising of left breast has almost resolved. Incision left mid breast well aproximated/no s/sx inflammation. <Shira Franco - 04/30/17 16:29> - Routine Respiratory Exam Present: decreased breath sounds. Absent: rhonchi, wheezes <Shira Franco - 04/30/17 15:57> - Routine Cardiovascular Exam Present: RRR. Absent: murmur <Shira Franco - 04/30/17 15:57> - Routine Abdominal Exam Present: soft, non distended, non tender. Absent: organomegaly <Shira Franco - 04/30/17 15:57> - Routine Extremities Exam Present: edema <Shira Franco 04/30/17 15:57> Comments: 1+ edema entire left lower extremity; lessened. <Shira Franco - 04/30/17 15:57> - Routine Back/Spine/Pelvis Exam Back/Spine: Absent: vertebral tenderness <Shira Franco - 04/30/17 15:57> - Routine Skin Exam Present: intact, pallor, warm <Shira Franco 04/30/17 15:57> - Routine Neurological Exam Present: alert, oriented X3 <Shira Franco - 04/30/17 15:57> - Routine Psychiatric Exam Present: normal affect <Shira Franco - 04/30/17 15:57> Oncology Results - Labs CBC & Chem 7: 05/01/17 05:00 05/01/17 05:00 <Jose Francisco Ramirez - 05/01/17 13:11> Labs: Short CBC 05/01/17 Range/Units 05:00 WBC 29.3 H* (4.5-11.0) T/MM3 Hgb 5.7 L* (12-16) GM/DL Hct 17.7 L* (36-46) % Plt Count 111 L (130-400) T/MM3 BMP 05/01/17 05:00 Sodium 138 Potassium 5.2 H Chloride 101 Carbon Dioxide 35 H BUN 56.0 H* Creatinine 1.3 H D Glucose 115 H Calcium 9.6 Liver Function 05/01/17 Range/Units 05:00 Total Bilirubin 0.90 (0.20-1.30) MG/DL AST 52 H (14-36) U/L ALT 47 (9-52) U/L Alkaline Phosphatase 89 (38-126) U/L Albumin 3.0 L (3.5-5.0) G/DL <Jose Francisco Ramirez - 05/01/17 13:11> Short CBC 04/30/17 Range/Units 04:38 WBC 27.7 H* (4.5-11.0) T/MM3 Hgb 6.3 L (12-16) GM/DL Hct 19.5 L D (36-46) % Plt Count 120 L (130-400) T/MM3 BMP 04/30/17 04:38 Sodium 138 Potassium 4.9 Chloride 100 Carbon Dioxide 32 H BUN 59.0 H* Creatinine 1.2 Glucose 203 H Calcium 9.9 Liver Function 04/30/17 Range/Units 04:38 Total Bilirubin 2.00 H (0.20-1.30) MG/DL AST 64 H (14-36) U/L ALT 44 (9-52) U/L Alkaline Phosphatase 79 (38-126) U/L Albumin 3.3 L (3.5-5.0) G/DL <Shira Franco L - 04/30/17 15:54> Assessment and Plan Assessment and Plan: Late entry. Patient seen at 12:00 noon on 04/30/17 Pathology pending. Will await path for further treatment decisions. Her last path was 2008 and we now have disease that is progressing on rituxan. She is chemotherapy naive. Revlamid and CVP art treatment options. Will await path and proceed as lymphoma is very treatable and would have good chance of relief of symptoms. Dr. Gonzalez called and flow did not have monoclonal population. Core had changes worrisome for lymphoid malignancy. Will await special stains. Itching is of concern for Hodgins's although this can be seen with non hodgkins lymphmoa. Discussed pending biopsy with Daughter by phone. <Jose Francisco Ramirez - 05/01/17 13:11> 1. 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 Treated with rituximab. Now with evidence of possible progressive disease. Awaiting pathology results. 2. Autoimmune hemolytic anemia on steroid. Hemoglobin today of 6.3. She is status post Procrit given 04/25/17. 3. Benign breast mass/ hematoma. Improving. 4. UTI w/ Cirobacter freundi; on Levaquin. Awaiting pathology results to make definitive plan of care. Continue supportive care, Levaquin, and close monitoring of counts. <Shira Franco - 04/30/17 16:29> - Time Spent With Patient Total time spent is greater than 50% in coordination of care (as documented) at patient's floor/unit and/or counseling patient: <Jose Francisco Ramirez - 05/01/17 13:11> Total time spent is greater than 50% in coordination of care (as documented) at patient's floor/unit and/or counseling patient: <Shira Franco - 04/30/17 15:54> 25 - 35 minutes <Shira Franco - 04/30/17 15:57> Sepsis Assessment - Evaluation Sepsis screening result: No Definite Risk <Shira Franco - 04/30/17 15:54>
[2017-04-30] MEDS: LEVOFLOXACIN PB 750 MG/150 ML BAG IV SCH (16:39)
[2017-04-30] MEDS: POLYETHYL GLYCOL 3350 17gm PACKET PO SCH ×2 (20:39→21:11)
[2017-04-30] MEDS: MELATONIN 1 MG TABLET PO SCH (21:10)
[2017-05-01] MEDS: HYDROCODONE/APAP 5mg/325mg TABLET PO PRN ×2 (00:32→19:33)
[2017-05-01] MEDS: OMEPRAZOLE 20 MG CAPSULE PO SCH (06:44)
[2017-05-01] MEDS: ALBUTEROL/IPRATROPIUM 2.5mg-0.5mg/3ml NEB IH SCH ×4 (07:34→19:05)
[2017-05-01] MEDS: BUDESONIDE INH.SOLN 0.5mg/2ml NEB AEROSOL SCH ×2 (07:35→19:05)
[2017-05-01] MEDS: DEXAMETHASONE 4 MG/ML INJECTION IVP SCH ×2 (08:26→22:11)
[2017-05-01] MEDS: HYDROCORTISONE 2.5% LOTION 59ml TOP SCH ×2 (08:27→22:13)
[2017-05-01] MEDS: FOLIC ACID 1 MG TABLET PO SCH (08:27)
[2017-05-01] MEDS: NYSTATIN 500,000 units/5 ml ORAL LIQUID PO SCH ×4 (08:27→22:10)
[2017-05-01] MEDS: LORazepam 0.5 MG TABLET PO PRN ×2 (08:38→13:17)
[2017-05-01] MEDS: DiphenhydrAMINE 25 MG CAPSULE PO PRN ×2 (11:12→19:33)
[2017-05-01] MEDS: METHYL SALICYLATE/MENTHOL OINT 28gm TP PRN (11:37)
[2017-05-01] MEDS: ACETAMINOPHEN 325 MG TABLET PO PRN (12:16)
--- NOTE | 2017-05-01 14:43 | Progress Note ---
<Veronica Esquivel V - Last Filed: 05/01/17 14:38> Subjective: Erika is seen today in follow up. She complains of increased itching to the upper extremities this morning. Otherwise denies having increased shortness of breath, chest pain or GI complaints. Appetite remains good, and no difficulty with output. Objective Vital signs: Temperature 98.0 F 05/01/17 08:00 Pulse Rate 90 05/01/17 08:00 Respiratory Rate 16 05/01/17 11:30 Blood Pressure 135/78 05/01/17 08:00 Pulse Oximetry 97 05/01/17 11:30 Oxygen Delivery Method Nasal Cannula Oxygen Flow Rate 2 Fraction of Inspired Oxygen 3 Weight: 49.7 kg - Constitutional Present: no acute distress - Routine HEENT Exam Head: Present: normocephalic Eye: Present: EOMI, PERRL ENT: Present: mucous membranes moist - Routine Respiratory Exam Comments: Faint crackles in bases - Routine Cardiovascular Exam Present: RRR, S1, S2 - Routine Abdominal Exam Present: soft, normoactive bowel sounds - Routine Extremities Exam Present: edema (LLE) - Routine Skin Exam Present: intact, warm, ecchymosis (to bilateral upper extremities) - Routine Neurological Exam Present: alert, oriented X3, CN II-XII intact, moving all extremities Results - Labs CBC & Chem 7: 05/01/17 05:00 05/01/17 05:00 Microbiology Results: Microbiology 04/27/17 13:08 Aspirate, Left Breast Gram Stain - Final 04/27/17 13:08 Aspirate, Left Breast Body Fluid Culture - Final No Growth After 3 Days 04/27/17 13:14 Surgery Site Tissue Gram Stain - Final 04/27/17 13:14 Surgery Site Tissue Surgical Culture - Final No Growth After 3 Days 04/24/17 15:08 Peripheral/Iv Start Blood Culture - Final No Growth After 5 Days 04/24/17 15:07 Peripheral/Iv Start Blood Culture - Final No Growth After 5 Days 04/24/17 16:07 Urine, Voided (Cc/notcc) Urine Culture - Final Citrobacter farmeri Assessment and Plan (1) Localized swelling of chest wall Current visit: Yes Status: Acute (2) Swelling of breast Problem details: Breast mass/hematoma Current visit: Yes Status: Acute (3) NHL (non-Hodgkin's lymphoma) Current visit: Yes Status: Acute Recurrence of non-Hodgkin's lymphoma February 2017 (4) CAD (coronary artery disease) Current visit: Yes Status: Chronic (5) Pulmonary fibrosis Current visit: Yes Status: Chronic (6) Oxygen dependent Current visit: Yes Status: Chronic (7) HTN (hypertension) Current visit: Yes Status: Chronic (8) COPD (chronic obstructive pulmonary disease) Current visit: Yes Status: Chronic (9) Heart valve replaced Current visit: Yes Status: Chronic (10) GERD (gastroesophageal reflux disease) Current visit: Yes Status: Chronic (11) Hypothyroidism Current visit: Yes Status: Chronic (12) Depression Current visit: Yes Status: Chronic (13) Osteoarthritis Current visit: Yes Status: Chronic (14) 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 Continue to follow Anemia- has trended down to 5.7 (under the management of Dr Ramirez) Continue on scheduled steroids 7 days of levaquin completed for UTI- ended 04/30 Continue with Benadryl, Atarax, topical hydrocortisone for ongoing treatment of itching We'll discuss further plans and orders with attending, Dr. Medina Sepsis Assessment - Evaluation Sepsis screening result: No Definite Risk Hospital Course Summary Disclaimer: The visit summary below is not to be considered part of the above Progress Note. Hospital Course: 04/24/17- Admit Admit patient as outpatient observation under care of Dr. Norwood for acute swelling of left chest wall and left breast Will initiate an acute evaluation on admission. Obtain the following laboratory studies CBC, CMP, magnesium, urinalysis, blood cultures, stool for occult blood. Will obtain radiology studies including CT of the head, chest, abdomen and pelvis. Given worsening left lower extremity swelling. Will also obtain a venous Doppler of bilateral lower extremities to rule out acute thrombus. Monitor patient on cardiac telemetry and obtain a 12-lead EKG given the amount of swelling over the left anterior chest wall. Continue patient on her home oxygen regimen Given reported dark stools, will obtain a stool for occult blood Will review all home medications once reconciled by nursing staff SCD to bilateral lower ext for DVT prophylaxis At this point patient is a Full Code. Family will discuss further with other family members. Will discuss further orders and plan of care with attending, Dr. Norwood. At time of discharge medical care will return to primary care provider, Dr. Abhishek Muro 04/27/17 Erika continues on oxygen by nasal canula as she is chronically on home oxygen. Appreciate consulstation by Dr Ramirez and Dr Vazquez. Planning for biopsy of Purpura on left upper arm as well as left breast later today Continue with breathing treatments and coverage of Levaquin for antimicrobial coverage of possible pneumonia versus atelectasis Continue to monitor blood counts. Continue on Epogen. Hgb yesterday was 6.1 however she is mostly asymptomatic Will discuss further plan of care with attending, Dr Norwood Again patient is a DNR 04/30/17 Lymphoma Anemia- autoimmune hemolytic anemia Pruritus- acute Benign breast mass Pulmonary fibrosis with chronic oxygen dependence Coronary artery disease. COPD History of heart valve replacement. Hypothyroidism GERD Depression. Osteoarthritis Plan- Lymphoma being managed by oncology team She did receive Procrit 20,000 units on 04/25. Continue to follow blood counts, this does account for the [place] increase in leukocytes. White count today is 27.7. Hemoglobin remained stable at 6.3. Continues on Decadron 4 milligrams IV twice a day Pathology of breast biopsy was negative for malignancy. Lymph node biopsy results are pending Continue on chronic oxygen as well as routine Pulmicort and DuoNeb. Continue on Levaquin for empiric pulmonary coverage as well as treatment of Citrobacter urinary tract infection Tylenol and Withams as needed for pain Pruritis - continue with Benadryl, Atarax and hydrocortisone Will discuss further care and orders with attending, Dr. Medina 05/01/17 Continued oncology recommends as per Dr Ramirez Lymph biopsy pathology pending. Continue to follow Anemia- has trended down to 5.7 (under the management of Dr Ramirez) Continue on scheduled steroids 7 days of levaquin completed for UTI- ended 04/30 Continue with Benadryl, Atarax, topical hydrocortisone for ongoing treatment of itching Will discuss further plans and orders with attending, Dr. Medina <Kristina Medina - Last Filed: 05/01/17 21:30> Objective Vital signs: Temperature 97.6 F 05/01/17 15:06 Pulse Rate 92 05/01/17 15:06 Respiratory Rate 18 05/01/17 19:05 Blood Pressure 149/74 H 05/01/17 15:06 Pulse Oximetry 98 05/01/17 19:05 Oxygen Delivery Method Nasal Cannula Oxygen Flow Rate 3 Fraction of Inspired Oxygen 3 Results - Labs CBC & Chem 7: 05/01/17 05:00 05/01/17 05:00 Microbiology Results: Microbiology 04/27/17 13:08 Aspirate, Left Breast Gram Stain - Final 04/27/17 13:08 Aspirate, Left Breast Body Fluid Culture - Final No Growth After 3 Days 04/27/17 13:14 Surgery Site Tissue Gram Stain - Final 04/27/17 13:14 Surgery Site Tissue Surgical Culture - Final No Growth After 3 Days 04/24/17 15:08 Peripheral/Iv Start Blood Culture - Final No Growth After 5 Days 04/24/17 15:07 Peripheral/Iv Start Blood Culture - Final No Growth After 5 Days 04/24/17 16:07 Urine, Voided (Cc/notcc) Urine Culture - Final Citrobacter farmeri Assessment and Plan (1) NHL (non-Hodgkin's lymphoma) Current visit: Yes Status: Acute (2) 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 Current visit: Yes Status: Acute (3) Localized swelling of chest wall Current visit: Yes Status: Acute (4) Swelling of breast Problem details: Breast mass/hematoma Current visit: Yes Status: Acute (5) CAD (coronary artery disease) Current visit: Yes Status: Chronic (6) Pulmonary fibrosis Current visit: Yes Status: Chronic (7) Oxygen dependent Current visit: Yes Status: Chronic (8) HTN (hypertension) Current visit: Yes Status: Chronic (9) COPD (chronic obstructive pulmonary disease) Current visit: Yes Status: Chronic (10) Heart valve replaced Current visit: Yes Status: Chronic (11) GERD (gastroesophageal reflux disease) Current visit: Yes Status: Chronic (12) Hypothyroidism Current visit: Yes Status: Chronic (13) Depression Current visit: Yes Status: Chronic (14) Osteoarthritis Current visit: Yes Status: Chronic (15) UTI (urinary tract infection) Problem details: > 100,000 colonies Citrobacter Current visit: Yes Status: Acute (16) Edema of left lower extremity Current visit: Yes Status: Acute Assessment and Plan: I have independently evaluated and examined this patient. I reviewed the chart, the patient's history, and the FISH CUTTER's documented findings as above. We discussed and formulated the assessment and plan as above with additions as below: Mrs. Fragoso continues to describe itching largely along her back. She described occasional lightheadedness and generalized weakness but reports her appetite is quite good. Patient was in no acute distress and was up in chair when seen. There is generalized pallor. Respirations were nonlabored with crackles at the bases-left> right +1 left lower extremity edema-less evident today, no edema on the right. Hemoglobin discussed with Dr. Weir, no interventions due to antibodies. Procrit given earlier this week. Iron stores good. Lymph node biopsy positive for lymphoma by verbal report-chemotherapy with cyclophosphamide tentatively planned to start tomorrow however family wishes to discuss this further with Dr. Weir before chemotherapy is initiated. Family meeting with Dr. Weir tomorrow at 11 AM-chemotherapy on hold. Liver enzymes improved today. Continue supportive care. Discussed with case management. Pre-chemotherapy echocardiogram obtained-report pending. Discussed with patient's daughter several times during the day. - Time spent with patient 25 - 35 minutes Hospital Course Summary Disclaimer: The visit summary below is not to be considered part of the above Progress Note.
--- NOTE | 2017-05-01 18:15 | Progress Note ---
Oncology Subjective Sitting in her chair for breakfast. She complains of pain all over and itching. Biopsy came back confirming marginal zone lymphoma. Exam Vital signs: Temperature 97.6 F 05/01/17 15:06 Pulse Rate 92 05/01/17 15:06 Respiratory Rate 18 05/01/17 15:27 Blood Pressure 149/74 H 05/01/17 15:06 Pulse Oximetry 100 05/01/17 15:27 Oxygen Delivery Method Nasal Cannula Oxygen Flow Rate 3 Fraction of Inspired Oxygen 3 - Constitutional no acute distress, thin Comments: Thin frail elderly woman. - Routine Respiratory Exam Absent: rales, respiratory distress, rhonchi, wheezes, crackles - Routine Cardiovascular Exam Present: RRR. Absent: JVD - Routine Abdominal Exam Present: soft - Routine Neurological Exam Present: alert, oriented X3 Oncology Results - Labs CBC & Chem 7: 05/01/17 05:00 05/01/17 05:00 Labs: Short CBC 05/01/17 Range/Units 05:00 WBC 29.3 H* (4.5-11.0) T/MM3 Hgb 5.7 L* (12-16) GM/DL Hct 17.7 L* (36-46) % Plt Count 111 L (130-400) T/MM3 BMP 05/01/17 05:00 Sodium 138 Potassium 5.2 H Chloride 101 Carbon Dioxide 35 H BUN 56.0 H* Creatinine 1.3 H D Glucose 115 H Calcium 9.6 Liver Function 05/01/17 Range/Units 05:00 Total Bilirubin 0.90 (0.20-1.30) MG/DL AST 52 H (14-36) U/L ALT 47 (9-52) U/L Alkaline Phosphatase 89 (38-126) U/L Albumin 3.0 L (3.5-5.0) G/DL Assessment and Plan Assessment and Plan: Assessment and plan 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 The patient was treated multiple times in the past with single agent rituximab with the last given in March 2017. I explained to the patient the situation of having disease relapsed and progression. We discussed the options of comfort care/hospice versus a palliative course of chemotherapy. The patient chose to try the chemotherapy. I ordered single agents cyclophosphamide at a reduced dose of 500 mg/m plus prednisone for 5 days. Then I received a call from the patient daughter concerning chemotherapy and it is complications. We discussed the option of hospice and supportive care. The daughter asked for a meeting tomorrow. I will meet with the patient and her daughter at the hospital tomorrow 11:00 in the morning. 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 The patient was treated multiple times in the past with single agent rituximab with the last given in March 2017. I explained to the patient the situation of having disease relapsed and progression. We discussed the options of comfort care/hospice versus a palliative course of chemotherapy. The patient chose to try the chemotherapy. I ordered single agents cyclophosphamide at a reduced dose of 500 mg/m plus prednisone for 5 days. Then I received a call from the patient daughter concerning chemotherapy and it is complications. We discussed the option of hospice and supportive care. The daughter asked for a meeting tomorrow. I will meet with the patient and her daughter at the hospital tomorrow 11:00 in the morning. Sepsis Assessment - Evaluation Sepsis screening result: No Definite Risk
[2017-05-01] MEDS: SALINE FLUSH 10ml SYRINGE IVF PRN ×2 (19:35→22:11)
[2017-05-01] MEDS: POLYETHYL GLYCOL 3350 17gm PACKET PO SCH (22:09)
[2017-05-01] MEDS: MELATONIN 1 MG TABLET PO SCH (22:10)
[2017-05-02] MEDS: HYDROCODONE/APAP 5mg/325mg TABLET PO PRN (05:18)
[2017-05-02] MEDS: OMEPRAZOLE 20 MG CAPSULE PO SCH ×2 (05:18→05:34)
[2017-05-02] MEDS: BUDESONIDE INH.SOLN 0.5mg/2ml NEB AEROSOL SCH ×2 (07:02→19:11)
[2017-05-02] MEDS: ALBUTEROL/IPRATROPIUM 2.5mg-0.5mg/3ml NEB IH SCH ×4 (07:02→19:10)
[2017-05-02] MEDS: SALINE FLUSH 10ml SYRINGE IVF PRN ×2 (08:04→10:17)
[2017-05-02] MEDS: DEXAMETHASONE 4 MG/ML INJECTION IVP SCH ×2 (08:04→21:34)
[2017-05-02] MEDS: FOLIC ACID 1 MG TABLET PO SCH (08:05)
[2017-05-02] MEDS: NYSTATIN 500,000 units/5 ml ORAL LIQUID PO SCH ×4 (08:05→21:32)
[2017-05-02] MEDS: HYDROCORTISONE 2.5% LOTION 59ml TOP SCH ×2 (09:21→21:33)
[2017-05-02] MEDS ORDERED: DEXAMETHASONE INJ 10 MG in NS 50 ML IV ONE (09:30)
[2017-05-02] MEDS ORDERED: ONDANSETRON IV ONE (09:30)
[2017-05-02] MEDS ORDERED: NS IV ONE (09:30)
[2017-05-02] MEDS ORDERED: D5W IV SCH ×2 (10:00→14:30)
[2017-05-02] MEDS ORDERED: METHYLPREDNISOLONE SOD SUCC 125mg/2ml INJECTION IVP PRN (10:00)
[2017-05-02] MEDS ORDERED: CYCLOPHOSPHAMIDE IV SCH ×2 (10:00→14:30)
[2017-05-02] MEDS ORDERED: HYDROCORTISONE SOD SUCC 100mg/2ml INJECTION IVP PRN (10:00)
[2017-05-02] MEDS: DiphenhydrAMINE 50 MG/ML INJECTION IVP PRN (10:17)
--- NOTE | 2017-05-02 12:22 | Progress Note ---
Oncology Subjective Patient complains of itching and aching all over. She feels miserable. 3 daughters in the room to discuss plan of care. Exam Vital signs: Temperature 96.3 F L 05/02/17 07:13 Pulse Rate 83 05/02/17 07:13 Respiratory Rate 16 05/02/17 07:02 Blood Pressure 141/84 H 05/02/17 07:13 Pulse Oximetry 95 05/02/17 07:13 Oxygen Delivery Method Nasal Cannula Oxygen Flow Rate 3 Fraction of Inspired Oxygen 3 - Constitutional no acute distress, thin, cooperative - Routine Chest/Breast/Axilla Exam Breast: Present: mass Comments: Left breast hematoma, improved. - Routine Respiratory Exam Present: rales. Absent: respiratory distress, rhonchi - Routine Cardiovascular Exam Present: RRR. Absent: JVD - Routine Abdominal Exam Present: soft. Absent: tenderness, distended - Routine Back/Spine/Pelvis Exam Comments: Limited movement of the left leg due to swelling and pain. 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 The patient was treated multiple times in the past with single agent rituximab with the last given in March 2017. I had an old meeting with the patient and her 3 daughters in the room. We discussed prognosis and treatment options. Again discussed the option of comfort care/hospice versus a trial of chemotherapy. After we discussed the risk and benefit of chemotherapy we elected to proceed with chemotherapy cyclophosphamide, visited used plus prednisone. I will give the patient a bicarbonate drip during the infusion of chemotherapy. We'll monitor electrolytes and urine pH. After this cycle the family will decide on further treatment in case of chemotherapy toxicities or disease progression. - Time Spent With Patient Total time spent is greater than 50% in coordination of care (as documented) at patient's floor/unit and/or counseling patient: greater than 35 minutes Sepsis Assessment - Evaluation Sepsis screening result: No Definite Risk
[2017-05-02] MEDS: LORazepam 0.5 MG TABLET PO PRN (13:11)
[2017-05-02] MEDS: PredniSONE 20 MG TABLET PO SCH (13:12)
[2017-05-02] MEDS: ALLOPURINOL 100 MG TABLET PO SCH (13:14)
[2017-05-02] MEDS: D5 IV SCH (13:19)
[2017-05-02] MEDS: [UNRECOGNIZED DRUG - OTHER] IV SCH (13:19)
[2017-05-02] MEDS: SODIUM ACETATE IV SCH (13:19)
[2017-05-02] MEDS: METOCLOPRAMIDE 5mg TABLET PO SCH (13:24)
--- NOTE | 2017-05-02 19:55 | Progress Note ---
Subjective: Mrs. Fragoso reports itching is somewhat better today than it has been. She had no other concerns although when asked she acknowledged having not had a bowel movement in undefined period of time. Nursing notes reviewed-last bowel movement may have been 2-3 days ago. The patient reported some back discomfort- chronic; she denied dyspnea but reports she is coughing occasionally without sputum production. Appetite remains good. Objective Vital signs: Temperature 97.5 F 05/02/17 16:00 Pulse Rate 94 05/02/17 16:00 Respiratory Rate 16 05/02/17 19:11 Blood Pressure 120/65 05/02/17 16:00 Pulse Oximetry 99 05/02/17 16:00 Oxygen Delivery Method Nasal Cannula Oxygen Flow Rate 3 Fraction of Inspired Oxygen 3 NAD, alert, generalized pallor Respirations nonlabored, good airflow, crackles at the bases posteriorly Regular rhythm, S1-S2, 2/6 systolic murmur Abdomen soft, minimal tenderness in the right upper quadrant, bowel sounds active +2 edema left lower extremity and multiple bruises on the forearms. Weight: 50 kg Results - Labs CBC & Chem 7: 05/02/17 05:12 05/02/17 05:12 Labs: Corrected white count 5.8, 87% neutrophils, 11% lymphocytes, 2% monocytes Microbiology Results: Microbiology 04/27/17 13:08 Aspirate, Left Breast Gram Stain - Final 04/27/17 13:08 Aspirate, Left Breast Body Fluid Culture - Final No Growth After 3 Days 04/27/17 13:14 Surgery Site Tissue Gram Stain - Final 04/27/17 13:14 Surgery Site Tissue Surgical Culture - Final No Growth After 3 Days 04/24/17 15:08 Peripheral/Iv Start Blood Culture - Final No Growth After 5 Days 04/24/17 15:07 Peripheral/Iv Start Blood Culture - Final No Growth After 5 Days 04/24/17 16:07 Urine, Voided (Cc/notcc) Urine Culture - Final Citrobacter farmeri Assessment and Plan (1) NHL (non-Hodgkin's lymphoma) Current visit: Yes Status: Acute Recurrence of non-Hodgkin's lymphoma February 2017 (2) 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 Current visit: Yes Status: Acute (3) Localized swelling of chest wall Current visit: Yes Status: Acute (4) Swelling of breast Problem details: Breast mass/hematoma Current visit: Yes Status: Acute (5) CAD (coronary artery disease) Current visit: Yes Status: Chronic (6) Pulmonary fibrosis Current visit: Yes Status: Chronic (7) Oxygen dependent Current visit: Yes Status: Chronic (8) HTN (hypertension) Current visit: Yes Status: Chronic (9) COPD (chronic obstructive pulmonary disease) Current visit: Yes Status: Chronic (10) Heart valve replaced Current visit: Yes Status: Chronic (11) GERD (gastroesophageal reflux disease) Current visit: Yes Status: Chronic (12) Hypothyroidism Current visit: Yes Status: Chronic (13) Depression Current visit: Yes Status: Chronic (14) Osteoarthritis Current visit: Yes Status: Chronic (15) UTI (urinary tract infection) Problem details: > 100,000 colonies Citrobacter Current visit: Yes Status: Acute (16) Edema of left lower extremity Current visit: Yes Status: Acute Assessment and Plan: Plans to proceed with chemotherapy discussed with patient and her daughters after several conversations with Dr. Weir this morning. Family members with moderate anxiety although patient seems relatively unaware of the same. Hydroxyzine scheduled to minimize pruritus. Bowel regimen initiated with MiraLAX twice a day and Senokot 2 tablets twice a day to minimize constipation. Hemoglobin low but stable, transfusion contraindicated due to antibodies. Family with multiple questions regarding discharge plans and what will happen if she responds to chemotherapy or if she doesn't respond to chemotherapy. Discussed in generalities based on my prior discussions with Dr. Weir; anticipate continued observation for chemotherapy complications tomorrow with plans to pursue discharge if possible on Thursday. Unclear the patient will be able to return to memory care unit she previously resided in if there is a potential for future chemotherapy. Greater than 35 minutes spent in patient care, the majority of the time spent in conversation with family members; additional time spent in outlining plans with Dr. Weir. - Time spent with patient greater than 35 minutes Coordination of Care: >50% of visit spent providing counseling/coordination of care Sepsis Assessment - Evaluation Sepsis screening result: No Definite Risk Hospital Course Summary Disclaimer: The visit summary below is not to be considered part of the above Progress Note. Hospital Course: 04/24/17- Admit Admit patient as outpatient observation under care of Dr. Norwood for acute swelling of left chest wall and left breast Will initiate an acute evaluation on admission. Obtain the following laboratory studies CBC, CMP, magnesium, urinalysis, blood cultures, stool for occult blood. Will obtain radiology studies including CT of the head, chest, abdomen and pelvis. Given worsening left lower extremity swelling. Will also obtain a venous Doppler of bilateral lower extremities to rule out acute thrombus. Monitor patient on cardiac telemetry and obtain a 12-lead EKG given the amount of swelling over the left anterior chest wall. Continue patient on her home oxygen regimen Given reported dark stools, will obtain a stool for occult blood Will review all home medications once reconciled by nursing staff SCD to bilateral lower ext for DVT prophylaxis At this point patient is a Full Code. Family will discuss further with other family members. Will discuss further orders and plan of care with attending, Dr. Norwood. At time of discharge medical care will return to primary care provider, Dr. Abhishek Muro 04/27/17 Erika continues on oxygen by nasal canula as she is chronically on home oxygen. Appreciate consulstation by Dr Ramirez and Dr Vazquez. Planning for biopsy of Purpura on left upper arm as well as left breast later today Continue with breathing treatments and coverage of Levaquin for antimicrobial coverage of possible pneumonia versus atelectasis Continue to monitor blood counts. Continue on Epogen. Hgb yesterday was 6.1 however she is mostly asymptomatic Will discuss further plan of care with attending, Dr Norwood Again patient is a DNR 04/30/17 Lymphoma Anemia- autoimmune hemolytic anemia Pruritus- acute Benign breast mass Pulmonary fibrosis with chronic oxygen dependence Coronary artery disease. COPD History of heart valve replacement. Hypothyroidism GERD Depression. Osteoarthritis Plan- Lymphoma being managed by oncology team She did receive Procrit 20,000 units on 04/25. Continue to follow blood counts, this does account for the [place] increase in leukocytes. White count today is 27.7. Hemoglobin remained stable at 6.3. Continues on Decadron 4 milligrams IV twice a day Pathology of breast biopsy was negative for malignancy. Lymph node biopsy results are pending Continue on chronic oxygen as well as routine Pulmicort and DuoNeb. Continue on Levaquin for empiric pulmonary coverage as well as treatment of Citrobacter urinary tract infection Tylenol and [place] as needed for pain Pruritis - continue with Benadryl, Atarax and hydrocortisone Will discuss further care and orders with attending, Dr. Medina 05/01/17 Continued oncology recommends as per Dr Ramirez Lymph biopsy pathology pending. Continue to follow Anemia- has trended down to 5.7 (under the management of Dr Ramirez) Continue on scheduled steroids 7 days of levaquin completed for UTI- ended 04/30 Continue with Benadryl, Atarax, topical hydrocortisone for ongoing treatment of itching Will discuss further plans and orders with attending, Dr. Medina 05/02/17 20:00 Plans to proceed with chemotherapy discussed with patient and her daughters after several conversations with Dr. Weir this morning. Family members with moderate anxiety although patient seems relatively unaware of the same. Hydroxyzine scheduled to minimize pruritus. Bowel regimen initiated with MiraLAX twice a day and Senokot 2 tablets twice a day to minimize constipation. Hemoglobin low but stable, transfusion contraindicated due to antibodies. Family with multiple questions regarding discharge plans and what will happen if she responds to chemotherapy or if she doesn't respond to chemotherapy. Discussed in generalities based on my prior discussions with Dr. Weir; anticipate continued observation for chemotherapy complications tomorrow with plans to pursue discharge if possible on Thursday. Unclear the patient will be able to return to memory care unit she previously resided in if there is a potential for future chemotherapy.
[2017-05-02] MEDS: POLYETHYL GLYCOL 3350 17gm PACKET PO SCH (21:30)
[2017-05-02] MEDS: HYDROMORPHONE 2 MG/ML INJECTION IVP PRN (21:32)
[2017-05-02] MEDS: DiphenhydrAMINE 25 MG CAPSULE PO PRN (21:33)
[2017-05-02] MEDS: MELATONIN 1 MG TABLET PO SCH (21:33)
[2017-05-02] MEDS: SENNA + DOCUSATE TABLET PO SCH (21:33)
[2017-05-03] MEDS: SALINE FLUSH 10ml SYRINGE IVF PRN ×2 (06:19→11:56)
[2017-05-03] MEDS: OMEPRAZOLE 20 MG CAPSULE PO SCH (06:19)
[2017-05-03] MEDS: ALBUTEROL/IPRATROPIUM 2.5mg-0.5mg/3ml NEB IH SCH ×4 (07:23→19:04)
[2017-05-03] MEDS: BUDESONIDE INH.SOLN 0.5mg/2ml NEB AEROSOL SCH ×2 (07:23→19:04)
[2017-05-03] MEDS: POLYETHYL GLYCOL 3350 17gm PACKET PO SCH ×2 (08:47→21:55)
[2017-05-03] MEDS: METOCLOPRAMIDE 5mg TABLET PO SCH (08:48)
[2017-05-03] MEDS: ALLOPURINOL 100 MG TABLET PO SCH (08:48)
[2017-05-03] MEDS: FOLIC ACID 1 MG TABLET PO SCH (08:48)
[2017-05-03] MEDS: NYSTATIN 500,000 units/5 ml ORAL LIQUID PO SCH ×4 (08:48→21:56)
[2017-05-03] MEDS: DEXAMETHASONE 4 MG/ML INJECTION IVP SCH ×2 (08:48→21:57)
[2017-05-03] MEDS: SENNA + DOCUSATE TABLET PO SCH ×2 (08:48→21:56)
[2017-05-03] MEDS: DiphenhydrAMINE 50 MG/ML INJECTION IVP PRN (08:48)
[2017-05-03] MEDS: HYDROCORTISONE 2.5% LOTION 59ml TOP SCH ×2 (08:49→21:56)
[2017-05-03] MEDS: PredniSONE 20 MG TABLET PO SCH (10:57)
[2017-05-03] MEDS: [UNRECOGNIZED DRUG - OTHER] IV SCH (10:58)
[2017-05-03] MEDS: SODIUM ACETATE IV SCH (10:58)
[2017-05-03] MEDS: D5 IV SCH (10:58)
[2017-05-03] MEDS: LORazepam 0.5 MG TABLET PO PRN (11:33)
[2017-05-03] MEDS: HYDROMORPHONE 2 MG/ML INJECTION IVP PRN (11:55)
--- NOTE | 2017-05-03 13:41 | Progress Note ---
Oncology Subjective Chief complaint is itching. She tolerated the first cycle of chemotherapy cyclophosphamide well. No nausea no vomiting. Exam Vital signs: Temperature 97.2 F 05/03/17 07:56 Pulse Rate 89 05/03/17 07:56 Respiratory Rate 20 05/03/17 11:59 Blood Pressure 137/69 05/03/17 07:56 Pulse Oximetry 100 05/03/17 07:56 Oxygen Delivery Method Nasal Cannula Oxygen Flow Rate 3 Fraction of Inspired Oxygen 3 - Constitutional no acute distress, thin - Routine HEENT Exam Head: Present: normocephalic ENT: Present: mucous membranes moist Throat: normal inspection Comments: No mucositis. - Routine Respiratory Exam Absent: rales, rhonchi, wheezes Comments: Lungs clear to auscultation. - Routine Cardiovascular Exam Present: RRR. Absent: JVD - Routine Abdominal Exam Present: soft, normoactive bowel sounds - Routine Exam Groin: Present: inguinal lymphadenopathy Comments: Left-sided inguinal adenopathy. - Routine Back/Spine/Pelvis Exam Comments: Left lower extremity lymphedema. 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 The patient was treated multiple times in the past with single agent rituximab with the last given in March 2017. The patient received the first cycle of cyclophosphamide 500 mg/m yesterday without complications. 2- severe autoimmune hemolytic anemia, stable. 3- Moderate to severe itching most likely due to the lymphoma. Plan 1- The patient tolerated the first cycle of chemotherapy cyclophosphamide plus prednisone. Vincristine is an hold and will be added to cycle 2 if he tolerates treatment well. 2- increase Atarax to 50 mg every 6 hours. 3- would keep monitoring blood counts and electrolytes. - Time Spent With Patient Total time spent is greater than 50% in coordination of care (as documented) at patient's floor/unit and/or counseling patient: 25 - 35 minutes Sepsis Assessment - Evaluation Sepsis screening result: No Definite Risk
[2017-05-03] MEDS: MELATONIN 1 MG TABLET PO SCH (21:56)
[2017-05-03] MEDS: DiphenhydrAMINE 25 MG CAPSULE PO PRN (21:57)
--- NOTE | 2017-05-03 22:09 | Progress Note ---
Subjective: Mrs. Duque was seen resting in bed this afternoon. She continues to complain of itching and mild dyspnea but reports minimal cough and no sputum production. she tolerated chemotherapy well yesterday with only a very brief episode of nausea but no emesis. She denied pain or fever and reports her appetite is good. Daughters were not present at the time of my evaluation. Objective Vital signs: Temperature 98.8 F 05/03/17 15:00 Pulse Rate 112 H 05/03/17 15:00 Respiratory Rate 18 05/03/17 19:04 Blood Pressure 159/71 H 05/03/17 15:00 Pulse Oximetry 3 L 05/03/17 15:00 Oxygen Delivery Method Nasal Cannula Oxygen Flow Rate 3 Fraction of Inspired Oxygen 3 EXAM General-NAD, drowsy but responds to questions HEENT-conjunctiva clear, sclera anicteric Lungs-respirations nonlabored, good airflow, anterior lung fletcher clear Cardiac-regular rhythm, S1-S2, 2/6 systolic murmur most prominent at the upper sternal borders Abd-soft, mildly distended, nontender, bowel sounds present Ext-+2-3 pitting edema left lower extremity Neuro-generalized weakness Psych-calm - Weight: 51.9 kg Results - Labs CBC & Chem 7: 05/03/17 04:17 05/03/17 04:17 Labs: Corrected white count 11.8-84% neutrophils, 10% lymphocytes, 5% monocytes, 1% metamyelocyte LDH 1284, uric acid 6.8 Microbiology Results: Microbiology 04/27/17 13:08 Aspirate, Left Breast Gram Stain - Final 04/27/17 13:08 Aspirate, Left Breast Body Fluid Culture - Final No Growth After 3 Days 04/27/17 13:14 Surgery Site Tissue Gram Stain - Final 04/27/17 13:14 Surgery Site Tissue Surgical Culture - Final No Growth After 3 Days 04/24/17 15:08 Peripheral/Iv Start Blood Culture - Final No Growth After 5 Days 04/24/17 15:07 Peripheral/Iv Start Blood Culture - Final No Growth After 5 Days 04/24/17 16:07 Urine, Voided (Cc/notcc) Urine Culture - Final Citrobacter farmeri Assessment and Plan (1) 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 Current visit: Yes Status : Acute Recurrence of non-Hodgkin's lymphoma February 2017 (2) 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 Current visit: Yes Status: Acute (3) Localized swelling of chest wall Current visit: Yes Status: Acute (4) Swelling of breast Problem details: Breast mass/hematoma Current visit: Yes Status: Acute (5) CAD (coronary artery disease) Current visit: Yes Status: Chronic (6) Pulmonary fibrosis Current visit: Yes Status: Chronic (7) Oxygen dependent Current visit: Yes Status: Chronic (8) HTN (hypertension) Current visit: Yes Status: Chronic (9) COPD (chronic obstructive pulmonary disease) Current visit: Yes Status: Chronic (10) Heart valve replaced Current visit: Yes Status: Chronic (11) GERD (gastroesophageal reflux disease) Current visit: Yes Status: Chronic (12) Hypothyroidism Current visit: Yes Status: Chronic (13) Depression Current visit: Yes Status: Chronic (14) Osteoarthritis Current visit: Yes Status: Chronic (15) UTI (urinary tract infection) Problem details: > 100,000 colonies Citrobacter Current visit: Yes Status: Acute (16) Edema of left lower extremity Current visit: Yes Status: Acute (17) Dementia Current visit: Yes Status: Acute Assessment and Plan: Tolerated chemotherapy well yesterday. Hemoglobin remains low-unable to be transfused due to antibodies. Ongoing pruritus-hydroxyzine increased; consider doxepin cream but not available in hospital pharmacy. Continue bowel regimen, bowel movement reported earlier today. Case management will assist with discharge planning/placement when available tomorrow. Sepsis Assessment - Evaluation Sepsis screening result: No Definite Risk Hospital Course Summary Disclaimer: The visit summary below is not to be considered part of the above Progress Note. Hospital Course: 04/24/17- Admit Admit patient as outpatient observation under care of Dr. Norwood for acute swelling of left chest wall and left breast Will initiate an acute evaluation on admission. Obtain the following laboratory studies CBC, CMP, magnesium, urinalysis, blood cultures, stool for occult blood. Will obtain radiology studies including CT of the head, chest, abdomen and pelvis. Given worsening left lower extremity swelling. Will also obtain a venous Doppler of bilateral lower extremities to rule out acute thrombus. Monitor patient on cardiac telemetry and obtain a 12-lead EKG given the amount of swelling over the left anterior chest wall. Continue patient on her home oxygen regimen Given reported dark stools, will obtain a stool for occult blood Will review all home medications once reconciled by nursing staff SCD to bilateral lower ext for DVT prophylaxis At this point patient is a Full Code. Family will discuss further with other family members. Will discuss further orders and plan of care with attending, Dr. Norwood. At time of discharge medical care will return to primary care provider, Dr. Abhishek Muro 04/27/17 Erika continues on oxygen by nasal canula as she is chronically on home oxygen. Appreciate consulstation by Dr Ramirez and Dr Vazquez. Planning for biopsy of Purpura on left upper arm as well as left breast later today Continue with breathing treatments and coverage of Levaquin for antimicrobial coverage of possible pneumonia versus atelectasis Continue to monitor blood counts. Continue on Epogen. Hgb yesterday was 6.1 however she is mostly asymptomatic Will discuss further plan of care with attending, Dr Norwood Again patient is a DNR 04/30/17 Lymphoma Anemia- autoimmune hemolytic anemia Pruritus- acute Benign breast mass Pulmonary fibrosis with chronic oxygen dependence Coronary artery disease. COPD History of heart valve replacement. Hypothyroidism GERD Depression. Osteoarthritis Plan- Lymphoma being managed by oncology team She did receive Procrit 20,000 units on 04/25. Continue to follow blood counts, this does account for the [place] increase in leukocytes. White count today is 27.7. Hemoglobin remained stable at 6.3. Continues on Decadron 4 milligrams IV twice a day Pathology of breast biopsy was negative for malignancy. Lymph node biopsy results are pending Continue on chronic oxygen as well as routine Pulmicort and DuoNeb. Continue on Levaquin for empiric pulmonary coverage as well as treatment of Citrobacter urinary tract infection Tylenol and [place] as needed for pain Pruritis - continue with Benadryl, Atarax and hydrocortisone Will discuss further care and orders with attending, Dr. Medina 05/01/17 Continued oncology recommends as per Dr Ramirez Lymph biopsy pathology pending. Continue to follow Anemia- has trended down to 5.7 (under the management of Dr Ramirez) Continue on scheduled steroids 7 days of levaquin completed for UTI- ended 04/30 Continue with Benadryl, Atarax, topical hydrocortisone for ongoing treatment of itching Will discuss further plans and orders with attending, Dr. Medina 05/02/17 20:00 Plans to proceed with chemotherapy discussed with patient and her daughters after several conversations with Dr. Weir this morning. Family members with moderate anxiety although patient seems relatively unaware of the same. Hydroxyzine scheduled to minimize pruritus. Bowel regimen initiated with MiraLAX twice a day and Senokot 2 tablets twice a day to minimize constipation. Hemoglobin low but stable, transfusion contraindicated due to antibodies. Family with multiple questions regarding discharge plans and what will happen if she responds to chemotherapy or if she doesn't respond to chemotherapy. Discussed in generalities based on my prior discussions with Dr. Weir; anticipate continued observation for chemotherapy complications tomorrow with plans to pursue discharge if possible on Thursday. Unclear the patient will be able to return to memory care unit she previously resided in if there is a potential for future chemotherapy. 05/03/17 22:13 Tolerated chemotherapy well yesterday. Hemoglobin remains low-unable to be transfused due to antibodies. Ongoing pruritus-hydroxyzine increased; consider doxepin cream but not available in hospital pharmacy. Continue bowel regimen, bowel movement reported earlier today. Case management will assist with discharge planning/placement when available tomorrow.
[2017-05-04] MEDS: LORazepam 0.5 MG TABLET PO PRN ×2 (02:04→23:19)
[2017-05-04] MEDS: SALINE FLUSH 10ml SYRINGE IVF PRN ×3 (06:18→21:08)
[2017-05-04] MEDS: OMEPRAZOLE 20 MG CAPSULE PO SCH (06:55)
[2017-05-04] MEDS: BUDESONIDE INH.SOLN 0.5mg/2ml NEB AEROSOL SCH ×2 (07:29→19:19)
[2017-05-04] MEDS: ALBUTEROL/IPRATROPIUM 2.5mg-0.5mg/3ml NEB IH SCH ×4 (07:29→19:19)
[2017-05-04] MEDS: HYDROCORTISONE 2.5% LOTION 59ml TOP SCH ×2 (09:11→21:02)
[2017-05-04] MEDS: DEXAMETHASONE 4 MG/ML INJECTION IVP SCH ×2 (09:11→21:03)
[2017-05-04] MEDS: NYSTATIN 500,000 units/5 ml ORAL LIQUID PO SCH ×4 (09:11→21:05)
[2017-05-04] MEDS: POLYETHYL GLYCOL 3350 17gm PACKET PO SCH ×2 (09:12→21:03)
[2017-05-04] MEDS: SENNA + DOCUSATE TABLET PO SCH ×2 (09:12→21:05)
[2017-05-04] MEDS: ALLOPURINOL 100 MG TABLET PO SCH (09:12)
[2017-05-04] MEDS: FOLIC ACID 1 MG TABLET PO SCH (09:12)
[2017-05-04] MEDS: METOCLOPRAMIDE 5mg TABLET PO SCH (09:14)
[2017-05-04] MEDS: [UNRECOGNIZED DRUG - OTHER] IV SCH (09:19)
[2017-05-04] MEDS: D5 IV SCH (09:19)
[2017-05-04] MEDS: SODIUM ACETATE IV SCH (09:19)
[2017-05-04] MEDS: PredniSONE 20 MG TABLET PO SCH (11:53)
--- NOTE | 2017-05-04 12:56 | Progress Note ---
Oncology Subjective Itching is better <Jose Francisco Ramirez 05/04/17 17:25> Sitting in chair; daughter at bedside. Smiles/ answers questions appropriately. " A little jittery." No other c/o's. Tolerated cyclophoshamide well. General: No fever, no night sweats Eyes: No redness, no pain, no diplopia ENT: No mouth sores, no trouble swallowing Cardiac: No chest pain no palpitations. chronic edema left LE, unchanged, trace RLE. Pulmonary: No cough, no shortness of breath, no wheezing Abdomen: No pain, no nausea vomiting, no diarrhea or constipation : No urgency, frequency, dysuria, or hematuria. chronic urinary incontinence. Musculoskeletal: No arthritis, no myalgias Neurological: No headaches, no focal weakness Skin: No rash, no sores Psychiatric: + anxiety/chronic. <Shira Franco 05/04/17 13:42> Exam Vital signs: Temperature 98.0 F 05/04/17 15:35 Pulse Rate 101 H 05/04/17 15:35 Respiratory Rate 18 05/04/17 15:35 Blood Pressure 136/67 05/04/17 15:35 Pulse Oximetry 100 05/04/17 15:35 Oxygen Delivery Method Nasal Cannula Oxygen Flow Rate 3 Fraction of Inspired Oxygen 3 <Jose Francisco Ramirez 05/04/17 17:25> Temperature 97.7 F 05/04/17 08:00 Pulse Rate 72 05/04/17 08:00 Respiratory Rate 20 05/04/17 11:34 Blood Pressure 148/61 H 05/04/17 08:00 Pulse Oximetry 100 05/04/17 11:34 Oxygen Delivery Method Nasal Cannula Oxygen Flow Rate 3 Fraction of Inspired Oxygen 3 <Shira Franco 05/04/17 12:56> - Constitutional no acute distress, well nourished <Shira Franco 05/04/17 13:42> - Routine HEENT Exam Head: Present: normocephalic <Shira Franco 05/04/17 13:42> Eye: Absent: scleral injection <Jose Francisco Ramirez 05/04/17 17:25> Present: EOMI, normal accommodation. Absent: conjunctival icterus <Shira Franco 05/04/17 13:42> ENT: Present: mucous membranes moist <Shira Franco - 05/04/17 13:42> - Routine Neck Exam Present: supple. Absent: lymphadenopathy, tenderness <Shira Franco 13:42> - Routine Chest/Breast/Axilla Exam Breast: Present: induration (bruising left lateral breast) <Jose Francisco Ramirez - 17:25> Axillae: Absent: lymphadenopathy <Shira Franco 05/04/17 13:42> - Routine Respiratory Exam Present: crackles (bibasilar). Absent: dyspnea <Shira Franco 05/04/17 13: 42> - Routine Cardiovascular Exam Present: murmur, irregularly irregular <Shira Franco 05/04/17 13:42> - Routine Abdominal Exam Present: soft, normoactive bowel sounds, non tender <Shira Franco 13:42> - Routine Extremities Exam Present: edema (chronic LLE, unchanged) <Shira Franco 05/04/17 13:42> - Routine Back/Spine/Pelvis Exam Back/Spine: Absent: vertebral tenderness <Shira Franco 05/04/17 13:42> - Routine Skin Exam Present: intact, warm <Shira Franco 05/04/17 13:42> - Routine Neurological Exam Present: alert, oriented X3, moving all extremities <Shira Franco 13:42> - Routine Psychiatric Exam Present: normal affect <Shira Franco 05/04/17 13:42> Oncology Results - Labs CBC & Chem 7: 05/03/17 04:17 05/03/17 04:17 <Jose Francisco Ramirez - 05/04/17 17:25> Labs: Urine 05/03/17 Range/Units 16:23 Urine Color Yellow (YELLOW) Urine Clarity Clear Urine pH 6.0 (5.0-8.0) Ur Specific [place] 1.020 (1.015-1.025) Urine Protein 2+ A (NEGATIVE) Urine Glucose (UA) Negative (NEGATIVE) <Shira Franco Cece 05/04/17 12:56> Assessment and Plan Assessment and Plan: Patient has tolerated cyclophosphamide well. Currently unable to find care facility of choice for patient. Will need CBC CMP LDH 2 times per week and will need to come back in May 25 for her next cycle of Cytoxan. 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 The patient was treated multiple times in the past with single agent rituximab with the last given in March 2017. The patient received the first cycle of cyclophosphamide 500 mg/m as in- patient at [facility] without complications. 2- severe autoimmune hemolytic anemia, stable. 3- Moderate to severe itching most likely due to the lymphoma. Plan 1- The patient tolerated the first cycle of chemotherapy cyclophosphamide plus prednisone. Vincristine is an hold and will be added to cycle 2 if tolerates treatment well. 2- increase Atarax to 50 mg every 6 hours. 3- Continue monitoring blood counts and electrolytes. 4. Daughter states planning discharge to [facility]. Will follow as out- patient. <Shira Franco - 05/04/17 13:42> - Time Spent With Patient Total time spent is greater than 50% in coordination of care (as documented) at patient's floor/unit and/or counseling patient: <Jose Francisco Ramirez - 05/04/17 17:25> Total time spent is greater than 50% in coordination of care (as documented) at patient's floor/unit and/or counseling patient: <Shira Franco 05/04/17 12:56> 25 - 35 minutes <Shira Franco 05/04/17 13:42> Sepsis Assessment - Evaluation Sepsis screening result: No Definite Risk <Shira Franco 05/04/17 12:56>
[2017-05-04] MEDS ORDERED: D5 IV SCH (13:15)
[2017-05-04] MEDS ORDERED: [UNRECOGNIZED DRUG - OTHER] IV SCH (13:15)
[2017-05-04] MEDS ORDERED: SODIUM ACETATE IV SCH (13:15)
--- NOTE | 2017-05-04 15:52 | Progress Note ---
<Veronica Esquivel V - Last Filed: 05/04/17 15:49> Subjective: Erika is seen today in follow up. She is up in the chair talking with her daughter. She reports that she is feeling good. She continues on 3 liters by nasal canula. Denies having any pain on examination. Hgb remains low but stable at 5.7. Vitals stable. Objective Vital signs: Temperature 98.0 F 05/04/17 15:35 Pulse Rate 101 H 05/04/17 15:35 Respiratory Rate 18 05/04/17 15:35 Blood Pressure 136/67 05/04/17 15:35 Pulse Oximetry 100 05/04/17 15:35 Oxygen Delivery Method Nasal Cannula Oxygen Flow Rate 3 Fraction of Inspired Oxygen 3 Weight: 52 kg - Constitutional Present: no acute distress - Routine HEENT Exam Head: Present: normocephalic, atraumatic Eye: Present: EOMI, PERRL ENT: Present: mucous membranes moist - Routine Respiratory Exam Present: diminished air movement - Routine Cardiovascular Exam Present: RRR, S1, S2 - Routine Abdominal Exam Present: soft, normoactive bowel sounds, non distended, non tender - Routine Extremities Exam Present: full ROM - Routine Back/Spine/Pelvis Exam Back/Spine: Present: full ROM - Routine Skin Exam Present: intact, dry, warm - Routine Neurological Exam Present: alert, oriented X3, CN II-XII intact - Routine Psychiatric Exam Present: normal affect, normal thought process Results - Labs CBC & Chem 7: 05/03/17 04:17 05/03/17 04:17 Microbiology Results: Microbiology 04/27/17 13:08 Aspirate, Left Breast Gram Stain - Final 04/27/17 13:08 Aspirate, Left Breast Body Fluid Culture - Final No Growth After 3 Days 04/27/17 13:14 Surgery Site Tissue Gram Stain - Final 04/27/17 13:14 Surgery Site Tissue Surgical Culture - Final No Growth After 3 Days 04/24/17 15:08 Peripheral/Iv Start Blood Culture - Final No Growth After 5 Days 04/24/17 15:07 Peripheral/Iv Start Blood Culture - Final No Growth After 5 Days 04/24/17 16:07 Urine, Voided (Cc/notcc) Urine Culture - Final Citrobacter farmeri Assessment and Plan (1) Localized swelling of chest wall Current visit: Yes Status: Acute (2) Swelling of breast Problem details: Breast mass/hematoma Current visit: Yes Status: Acute (3) 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 Current visit: Yes Status : Acute Recurrence of non-Hodgkin's lymphoma February 2017 (4) CAD (coronary artery disease) Current visit: Yes Status: Chronic (5) Pulmonary fibrosis Current visit: Yes Status: Chronic (6) Oxygen dependent Current visit: Yes Status: Chronic (7) HTN (hypertension) Current visit: Yes Status: Chronic (8) COPD (chronic obstructive pulmonary disease) Current visit: Yes Status: Chronic (9) Heart valve replaced Current visit: Yes Status: Chronic (10) GERD (gastroesophageal reflux disease) Current visit: Yes Status: Chronic (11) Hypothyroidism Current visit: Yes Status: Chronic (12) Depression Current visit: Yes Status: Chronic (13) Osteoarthritis Current visit: Yes Status: Chronic (14) 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 Current visit: Yes Status: Acute (15) UTI (urinary tract infection) Problem details: > 100,000 colonies Citrobacter Current visit: Yes Status: Acute (16) Edema of left lower extremity Current visit: Yes Status: Acute (17) Dementia Current visit: Yes Status: Acute Assessment and Plan: 05/04/17 Spend 20 minutes talking with family, patient and CM regarding discharge planning. Hemoglobin remains low however is stable. She is unable to receive -unable to be transfused due to antibodies. Otherwise appears medically stable Continue with hydroxyzine, Benadryl topical hydrocortisone for ongoing pruritus Continue bowel regimen, bowel movement reported earlier today. Case management working on discharge plans Sepsis Assessment - Evaluation Sepsis screening result: No Definite Risk Hospital Course Summary Disclaimer: The visit summary below is not to be considered part of the above Progress Note. Hospital Course: 04/24/17- Admit Admit patient as outpatient observation under care of Dr. Norwood for acute swelling of left chest wall and left breast Will initiate an acute evaluation on admission. Obtain the following laboratory studies CBC, CMP, magnesium, urinalysis, blood cultures, stool for occult blood. Will obtain radiology studies including CT of the head, chest, abdomen and pelvis. Given worsening left lower extremity swelling. Will also obtain a venous Doppler of bilateral lower extremities to rule out acute thrombus. Monitor patient on cardiac telemetry and obtain a 12-lead EKG given the amount of swelling over the left anterior chest wall. Continue patient on her home oxygen regimen Given reported dark stools, will obtain a stool for occult blood Will review all home medications once reconciled by nursing staff SCD to bilateral lower ext for DVT prophylaxis At this point patient is a Full Code. Family will discuss further with other family members. Will discuss further orders and plan of care with attending, Dr. Norwood. At time of discharge medical care will return to primary care provider, Dr. Abhishek Muro 04/27/17 Erika continues on oxygen by nasal canula as she is chronically on home oxygen. Appreciate consulstation by Dr Ramirez and Dr Vazquez. Planning for biopsy of Purpura on left upper arm as well as left breast later today Continue with breathing treatments and coverage of Levaquin for antimicrobial coverage of possible pneumonia versus atelectasis Continue to monitor blood counts. Continue on Epogen. Hgb yesterday was 6.1 however she is mostly asymptomatic Will discuss further plan of care with attending, Dr Norwood Again patient is a DNR 04/30/17 Lymphoma Anemia- autoimmune hemolytic anemia Pruritus- acute Benign breast mass Pulmonary fibrosis with chronic oxygen dependence Coronary artery disease. COPD History of heart valve replacement. Hypothyroidism GERD Depression. Osteoarthritis Plan- Lymphoma being managed by oncology team She did receive Procrit 20,000 units on 04/25. Continue to follow blood counts, this does account for the [place] increase in leukocytes. White count today is 27.7. Hemoglobin remained stable at 6.3. Continues on Decadron 4 milligrams IV twice a day Pathology of breast biopsy was negative for malignancy. Lymph node biopsy results are pending Continue on chronic oxygen as well as routine Pulmicort and DuoNeb. Continue on Levaquin for empiric pulmonary coverage as well as treatment of Citrobacter urinary tract infection Tylenol and [place] as needed for pain Pruritis - continue with Benadryl, Atarax and hydrocortisone Will discuss further care and orders with attending, Dr. Medina 05/01/17 Continued oncology recommends as per Dr Ramirez Lymph biopsy pathology pending. Continue to follow Anemia- has trended down to 5.7 (under the management of Dr Ramirez) Continue on scheduled steroids 7 days of levaquin completed for UTI- ended 04/30 Continue with Benadryl, Atarax, topical hydrocortisone for ongoing treatment of itching Will discuss further plans and orders with attending, Dr. Medina 05/02/17 20:00 Plans to proceed with chemotherapy discussed with patient and her daughters after several conversations with Dr. Weir this morning. Family members with moderate anxiety although patient seems relatively unaware of the same. Hydroxyzine scheduled to minimize pruritus. Bowel regimen initiated with MiraLAX twice a day and Senokot 2 tablets twice a day to minimize constipation. Hemoglobin low but stable, transfusion contraindicated due to antibodies. Family with multiple questions regarding discharge plans and what will happen if she responds to chemotherapy or if she doesn't respond to chemotherapy. Discussed in generalities based on my prior discussions with Dr. Weir; anticipate continued observation for chemotherapy complications tomorrow with plans to pursue discharge if possible on Thursday. Unclear the patient will be able to return to [facility] care unit she previously resided in if there is a potential for future chemotherapy. 05/03/17 Tolerated chemotherapy well yesterday. Hemoglobin remains low-unable to be transfused due to antibodies. Ongoing pruritus-hydroxyzine increased; consider doxepin cream but not available in hospital pharmacy. Continue bowel regimen, bowel movement reported earlier today. Case management will assist with discharge planning/placement when available tomorrow. 05/04/17 Spend 20 minutes talking with family, patient and CM regarding discharge planning. Hemoglobin remains low however is stable. She is unable to receive -unable to be transfused due to antibodies. Otherwise appears medically stable Continue with hydroxyzine, Benadryl topical hydrocortisone for ongoing pruritus Continue bowel regimen, bowel movement reported earlier today. Case management working on discharge plans <Flaquito Rodrigues - Last Filed: 05/04/17 18:57> Objective Vital signs: Temperature 98.0 F 05/04/17 15:35 Pulse Rate 101 H 05/04/17 15:35 Respiratory Rate 18 05/04/17 15:35 Blood Pressure 136/67 05/04/17 15:35 Pulse Oximetry 100 05/04/17 15:35 Oxygen Delivery Method Nasal Cannula Oxygen Flow Rate 3 Fraction of Inspired Oxygen 3 Results - Labs CBC & Chem 7: 05/03/17 04:17 05/03/17 04:17 Microbiology Results: Microbiology 04/27/17 13:08 Aspirate, Left Breast Gram Stain - Final 04/27/17 13:08 Aspirate, Left Breast Body Fluid Culture - Final No Growth After 3 Days 04/27/17 13:14 Surgery Site Tissue Gram Stain - Final 04/27/17 13:14 Surgery Site Tissue Surgical Culture - Final No Growth After 3 Days 04/24/17 15:08 Peripheral/Iv Start Blood Culture - Final No Growth After 5 Days 04/24/17 15:07 Peripheral/Iv Start Blood Culture - Final No Growth After 5 Days 04/24/17 16:07 Urine, Voided (Cc/notcc) Urine Culture - Final Citrobacter farmeri Assessment and Plan (1) 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 Current visit: Yes Status : Acute (2) 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 Current visit: Yes Status: Acute (3) Localized swelling of chest wall Current visit: Yes Status: Acute (4) Swelling of breast Problem details: Breast mass/hematoma Current visit: Yes Status: Acute (5) CAD (coronary artery disease) Current visit: Yes Status: Chronic (6) HTN (hypertension) Current visit: Yes Status: Chronic (7) Heart valve replaced Current visit: Yes Status: Chronic (8) Pulmonary fibrosis Current visit: Yes Status: Chronic (9) COPD (chronic obstructive pulmonary disease) Current visit: Yes Status: Chronic (10) Oxygen dependent Current visit: Yes Status: Chronic (11) GERD (gastroesophageal reflux disease) Current visit: Yes Status: Chronic (12) Hypothyroidism Current visit: Yes Status: Chronic (13) Osteoarthritis Current visit: Yes Status: Chronic (14) Depression Current visit: Yes Status: Chronic (15) UTI (urinary tract infection) Problem details: > 100,000 colonies Citrobacter Current visit: Yes Status: Resolved (16) Edema of left lower extremity Current visit: Yes Status: Acute (17) Dementia Current visit: Yes Status: Acute Resuscitation Status: Do Not Resuscitate Assessment and Plan: Have independently interviewed and examined pt. Chart reviewed. Case discussed with CM and my VAT OPERATOR. Care plan developed with my supervision; agree with above. Doing okay this evening. Breathing fair. Appetite fair. No nausea. Lungs: decreased, no distress on O2 CV: regular AB: soft nt/nd +BS EXT: +3 B LE edema MSE: awake alert, not agitated or restless Plan: Continue with supportive care. CM working on discharge arrangements. Encourage oral intake. Hospital Course Summary Disclaimer: The visit summary below is not to be considered part of the above Progress Note.
[2017-05-04] MEDS: MELATONIN 1 MG TABLET PO SCH (21:05)
[2017-05-04] MEDS: DiphenhydrAMINE 25 MG CAPSULE PO PRN (21:05)
[2017-05-04] MEDS: HYDROCODONE/APAP 5mg/325mg TABLET PO PRN (21:58)
[2017-05-05] MEDS: OMEPRAZOLE 20 MG CAPSULE PO SCH (06:03)
[2017-05-05] MEDS: HYDROCODONE/APAP 5mg/325mg TABLET PO PRN ×2 (06:23→21:36)
[2017-05-05] MEDS: ALBUTEROL/IPRATROPIUM 2.5mg-0.5mg/3ml NEB IH SCH ×4 (07:05→19:25)
[2017-05-05] MEDS: BUDESONIDE INH.SOLN 0.5mg/2ml NEB AEROSOL SCH ×2 (07:14→19:25)
[2017-05-05] MEDS: NYSTATIN 500,000 units/5 ml ORAL LIQUID PO SCH ×4 (09:45→21:34)
[2017-05-05] MEDS: SENNA + DOCUSATE TABLET PO SCH ×2 (09:45→21:34)
[2017-05-05] MEDS: FOLIC ACID 1 MG TABLET PO SCH (09:46)
[2017-05-05] MEDS: PredniSONE 20 MG TABLET PO SCH (09:46)
[2017-05-05] MEDS: METOCLOPRAMIDE 5mg TABLET PO SCH (09:48)
[2017-05-05] MEDS: HYDROCORTISONE 2.5% LOTION 59ml TOP SCH ×2 (09:51→21:34)
[2017-05-05] MEDS: ALLOPURINOL 100 MG TABLET PO SCH (09:56)
[2017-05-05] MEDS: DEXAMETHASONE 4 MG/ML INJECTION IVP SCH ×2 (09:56→21:34)
[2017-05-05] MEDS: POLYETHYL GLYCOL 3350 17gm PACKET PO SCH ×2 (10:13→21:34)
--- NOTE | 2017-05-05 12:43 | Discharge Instructions ---
Discharge Plan - Med Rec/Dispo Referrals/Follow Up: Jose Francisco Ramirez MD [Physician] - (Please call office and schedule f/u appointment w/ Dr. Ramirez with CBC, CMP, LDH, Mg and chemotherapy on 05/25/17 Weekly CBC, CMP, LDH, and Mg-results to Dr. Ramirez) Prescriptions: No Action Multivitamins (Multivitamin) 1 tab PO DAILY #0 tab Pantoprazole Sodium [Protonix] 40 mg PO BID #0 Clopidogrel Bisulfate [Plavix] 75 mg PO DAILY #0 tab Menthol [Biofreeze] 1 applic TP PRN PRN #0 PRN Reason: MUSCLE PAIN LORazepam [Lorazepam] 0.5 - 1 mg PO Q4H PRN #0 PRN Reason: ANXIETY/RESTLESSNESS HydrOXYzine [Atarax] 25 mg PO QID PRN #0 PRN Reason: ALLERY SYMPTOMS Propranolol HCl 60 mg PO BID #0 LORazepam [Ativan] 0.5 mg PO BID #0 Atorvastatin Calcium 20 mg PO HS #0 Arformoterol Neb [Brovana Neb] 15 mcg AEROSOL BID #0 vial Budesonide 0.25 mg AEROSOL BID #0 Acetaminophen [Tylenol] 1 - 2 tab PO Q4HR PRN #0 PRN Reason: PAIN Ondansetron [Ondansetron Odt] 8 mg PO Q8H PRN #0 PRN Reason: NAUSEA Hyoscyamine Sulfate [Levsin-Sl] 0.125 mg SL Q4H PRN #0 PRN Reason: SECRETIONS Dexamethasone 2 mg PO DAILY - Disposition 01 Discharged Home, Self-Care
--- NOTE | 2017-05-05 12:46 | Progress Note ---
Oncology Subjective Reclining in hospital bed, daughter at bedside. Patient alert, oriented, pleasant affect. Denies pain currently, continues to complain of frequent itching. No new complaints. General: No fever, no night sweats Eyes: No redness, no pain, no diplopia ENT: No mouth sores, no trouble swallowing Cardiac: No chest pain no palpitations Pulmonary: No cough, no shortness of breath, no wheezing Abdomen: No pain, no nausea vomiting, no diarrhea or constipation : Chronic urinary incontinence. No dysuria/hematuria Musculoskeletal: No arthritis, no myalgias Neurological: No headaches, no focal weakness Skin: Positive itching. No rash Psychiatric: No anxiety, no depression Exam Vital signs: Temperature 96.9 F 05/05/17 07:24 Pulse Rate 92 05/05/17 07:24 Respiratory Rate 18 05/05/17 11:07 Blood Pressure 141/83 H 05/05/17 07:24 Pulse Oximetry 100 05/05/17 11:07 Oxygen Delivery Method Nasal Cannula Oxygen Flow Rate 3 Fraction of Inspired Oxygen 3 - Constitutional no acute distress, thin - Routine HEENT Exam Head: Present: normocephalic. Absent: facial swelling Eye: Present: EOMI, normal accommodation ENT: Present: mucous membranes moist - Routine Neck Exam Present: supple. Absent: tenderness, swelling - Routine Chest/Breast/Axilla Exam Axillae: Absent: lymphadenopathy - Routine Respiratory Exam Present: decreased breath sounds. Absent: dyspnea - Routine Cardiovascular Exam Present: RRR, murmur - Routine Abdominal Exam Present: soft, normoactive bowel sounds, non distended, non tender - Routine Extremities Exam Present: edema (12 plus edema left lower extremity. No edema right lower extremity or upper extremities) - Routine Skin Exam Present: intact, dry, pallor, warm. Absent: rash - Routine Neurological Exam Present: alert, moving all extremities, normal speech - Routine Psychiatric Exam Present: normal affect, cooperative - Additional findings Additional findings: 1 Cm inguinal left lymphadenopathy appreciated. 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 The patient was treated multiple times in the past with single agent rituximab with the last given in March 2017. The patient received the first cycle of cyclophosphamide 500 mg/m as in- patient at [facility] without complications. 2- severe autoimmune hemolytic anemia, stable. 3- Moderate to severe itching most likely due to the lymphoma. 05/05/17: Patient has tolerated cyclophosphamide well. Discharge planning in progress, daughter states working on placement at [facility] in [place]. Patient reluctant to get labs frequently. Discussed f/u recommendations with patient/daughter; recommend twice weekly labs. Agrees to do one time a week. Orders placed in discharge planning for follow-up with Dr. Ramirez on May 25 with CBC, CMP, LDH, magnesium and chemotherapy. Ordered weekly labs. - Time Spent With Patient Total time spent is greater than 50% in coordination of care (as documented) at patient's floor/unit and/or counseling patient: less than 15 minutes Sepsis Assessment - Evaluation Sepsis screening result: No Definite Risk
--- NOTE | 2017-05-05 14:07 | Progress Note ---
<Veronica Esquivel V - Last Filed: 05/05/17 14:03> Subjective: Erika is seen this afternoon while up in the chair. She states that she is not feeling good today and feels like she is having more difficulty with breathing. She describes feeling that she is "fading". Denies chest pain. On auscultation heart sound appear to be slow and irregular. Denies known hx of A-fib. No GI complaints. Bowels moved today. Lower extremity edema bilateral L>R. Objective Vital signs: Temperature 96.9 F 05/05/17 07:24 Pulse Rate 92 05/05/17 07:24 Respiratory Rate 18 05/05/17 11:07 Blood Pressure 141/83 H 05/05/17 07:24 Pulse Oximetry 100 05/05/17 11:07 Oxygen Delivery Method Nasal Cannula Oxygen Flow Rate 3 Fraction of Inspired Oxygen 3 Weight: 51.1 kg - Constitutional Present: mild distress - Routine HEENT Exam Head: Present: normocephalic, atraumatic Eye: Present: EOMI, PERRL - Routine Respiratory Exam Present: diminished air movement - Routine Cardiovascular Exam Present: bradycardia, irregular rhythm - Routine Abdominal Exam Present: soft, normoactive bowel sounds - Routine Extremities Exam Present: edema (Bilateral lower ext. L>R) - Routine Neurological Exam Present: alert, oriented X3, CN II-XII intact - Routine Psychiatric Exam Present: normal affect, normal thought process Results - Labs CBC & Chem 7: 05/03/17 04:17 05/03/17 04:17 Microbiology Results: Microbiology 04/27/17 13:08 Aspirate, Left Breast Gram Stain - Final 04/27/17 13:08 Aspirate, Left Breast Body Fluid Culture - Final No Growth After 3 Days 04/27/17 13:14 Surgery Site Tissue Gram Stain - Final 04/27/17 13:14 Surgery Site Tissue Surgical Culture - Final No Growth After 3 Days 04/24/17 15:08 Peripheral/Iv Start Blood Culture - Final No Growth After 5 Days 04/24/17 15:07 Peripheral/Iv Start Blood Culture - Final No Growth After 5 Days 04/24/17 16:07 Urine, Voided (Cc/notcc) Urine Culture - Final Citrobacter farmeri Assessment and Plan (1) Localized swelling of chest wall Current visit: Yes Status: Acute (2) Swelling of breast Problem details: Breast mass/hematoma Current visit: Yes Status: Acute (3) 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 Current visit: Yes Status : Acute Recurrence of non-Hodgkin's lymphoma February 2017 (4) CAD (coronary artery disease) Current visit: Yes Status: Chronic (5) Pulmonary fibrosis Current visit: Yes Status: Chronic (6) Oxygen dependent Current visit: Yes Status: Chronic (7) HTN (hypertension) Current visit: Yes Status: Chronic (8) COPD (chronic obstructive pulmonary disease) Current visit: Yes Status: Chronic (9) Heart valve replaced Current visit: Yes Status: Chronic (10) GERD (gastroesophageal reflux disease) Current visit: Yes Status: Chronic (11) Hypothyroidism Current visit: Yes Status: Chronic (12) Depression Current visit: Yes Status: Chronic (13) Osteoarthritis Current visit: Yes Status: Chronic (14) 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 Continues on chronic oxygen. Breath sounds diminished bilaterally No further lab ordering given that she cannot recieve a transfusion Encourage good oral intake Multiple discussions with CM today regarding attempted discharge planning. Sepsis Assessment - Evaluation Sepsis screening result: No Definite Risk Hospital Course Summary Disclaimer: The visit summary below is not to be considered part of the above Progress Note. Hospital Course: 04/24/17- Admit Admit patient as outpatient observation under care of Dr. Norwood for acute swelling of left chest wall and left breast Will initiate an acute evaluation on admission. Obtain the following laboratory studies CBC, CMP, magnesium, urinalysis, blood cultures, stool for occult blood. Will obtain radiology studies including CT of the head, chest, abdomen and pelvis. Given worsening left lower extremity swelling. Will also obtain a venous Doppler of bilateral lower extremities to rule out acute thrombus. Monitor patient on cardiac telemetry and obtain a 12-lead EKG given the amount of swelling over the left anterior chest wall. Continue patient on her home oxygen regimen Given reported dark stools, will obtain a stool for occult blood Will review all home medications once reconciled by nursing staff SCD to bilateral lower ext for DVT prophylaxis At this point patient is a Full Code. Family will discuss further with other family members. Will discuss further orders and plan of care with attending, Dr. Norwood. At time of discharge medical care will return to primary care provider, Dr. Abhishek Muro 04/27/17 Erika continues on oxygen by nasal canula as she is chronically on home oxygen. Appreciate consulstation by Dr Ramirez and Dr Vazquez. Planning for biopsy of Purpura on left upper arm as well as left breast later today Continue with breathing treatments and coverage of Levaquin for antimicrobial coverage of possible pneumonia versus atelectasis Continue to monitor blood counts. Continue on Epogen. Hgb yesterday was 6.1 however she is mostly asymptomatic Will discuss further plan of care with attending, Dr Norwood Again patient is a DNR 04/30/17 Lymphoma Anemia- autoimmune hemolytic anemia Pruritus- acute Benign breast mass Pulmonary fibrosis with chronic oxygen dependence Coronary artery disease. COPD History of heart valve replacement. Hypothyroidism GERD Depression. Osteoarthritis Plan- Lymphoma being managed by oncology team She did receive Procrit 20,000 units on 04/25. Continue to follow blood counts, this does account for the [place] increase in leukocytes. White count today is 27.7. Hemoglobin remained stable at 6.3. Continues on Decadron 4 milligrams IV twice a day Pathology of breast biopsy was negative for malignancy. Lymph node biopsy results are pending Continue on chronic oxygen as well as routine Pulmicort and DuoNeb. Continue on Levaquin for empiric pulmonary coverage as well as treatment of Citrobacter urinary tract infection Tylenol and [place] as needed for pain Pruritis - continue with Benadryl, Atarax and hydrocortisone Will discuss further care and orders with attending, Dr. Medina 05/01/17 Continued oncology recommends as per Dr Ramirez Lymph biopsy pathology pending. Continue to follow Anemia- has trended down to 5.7 (under the management of Dr Ramirez) Continue on scheduled steroids 7 days of levaquin completed for UTI- ended 04/30 Continue with Benadryl, Atarax, topical hydrocortisone for ongoing treatment of itching Will discuss further plans and orders with attending, Dr. Medina 05/02/17 20:00 Plans to proceed with chemotherapy discussed with patient and her daughters after several conversations with Dr. Weir this morning. Family members with moderate anxiety although patient seems relatively unaware of the same. Hydroxyzine scheduled to minimize pruritus. Bowel regimen initiated with MiraLAX twice a day and Senokot 2 tablets twice a day to minimize constipation. Hemoglobin low but stable, transfusion contraindicated due to antibodies. Family with multiple questions regarding discharge plans and what will happen if she responds to chemotherapy or if she doesn't respond to chemotherapy. Discussed in generalities based on my prior discussions with Dr. Weir; anticipate continued observation for chemotherapy complications tomorrow with plans to pursue discharge if possible on Thursday. Unclear the patient will be able to return to [facility] care unit she previously resided in if there is a potential for future chemotherapy. 05/03/17 Tolerated chemotherapy well yesterday. Hemoglobin remains low-unable to be transfused due to antibodies. Ongoing pruritus-hydroxyzine increased; consider doxepin cream but not available in hospital pharmacy. Continue bowel regimen, bowel movement reported earlier today. Case management will assist with discharge planning/placement when available tomorrow. 05/04/17 Spend 20 minutes talking with family, patient and CM regarding discharge planning. Hemoglobin remains low however is stable. She is unable to receive -unable to be transfused due to antibodies. Otherwise appears medically stable Continue with hydroxyzine, Benadryl topical hydrocortisone for ongoing pruritus Continue bowel regimen, bowel movement reported earlier today. Case management working on discharge plans 05/05/17 Given sudden change in status will obtain a EKG and Chest Xray. Continues on chronic oxygen. Breath sounds diminished bilaterally No further lab ordering given that she cannot recieve a transfusion Encourage good oral intake Multiple discussions with CM today regarding attempted discharge planning. <Flaquito Rodrigues - Last Filed: 05/05/17 20:22> Objective Vital signs: Temperature 97.8 F 05/05/17 15:53 Pulse Rate 96 05/05/17 15:53 Respiratory Rate 18 05/05/17 19:25 Blood Pressure 160/89 H 05/05/17 15:53 Pulse Oximetry 97 05/05/17 19:25 Oxygen Delivery Method Nasal Cannula Oxygen Flow Rate 3 Fraction of Inspired Oxygen 3 Results - Labs CBC & Chem 7: 05/05/17 14:40 05/05/17 14:40 Microbiology Results: Microbiology 04/27/17 13:08 Aspirate, Left Breast Gram Stain - Final 04/27/17 13:08 Aspirate, Left Breast Body Fluid Culture - Final No Growth After 3 Days 04/27/17 13:14 Surgery Site Tissue Gram Stain - Final 04/27/17 13:14 Surgery Site Tissue Surgical Culture - Final No Growth After 3 Days 04/24/17 15:08 Peripheral/Iv Start Blood Culture - Final No Growth After 5 Days 04/24/17 15:07 Peripheral/Iv Start Blood Culture - Final No Growth After 5 Days 04/24/17 16:07 Urine, Voided (Cc/notcc) Urine Culture - Final Citrobacter farmeri Assessment and Plan (1) 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 Current visit: Yes Status : Acute (2) 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 Current visit: Yes Status: Acute (3) Localized swelling of chest wall Current visit: Yes Status: Acute (4) Swelling of breast Problem details: Breast mass/hematoma Current visit: Yes Status: Acute (5) CAD (coronary artery disease) Current visit: Yes Status: Chronic (6) HTN (hypertension) Current visit: Yes Status: Chronic (7) Heart valve replaced Current visit: Yes Status: Chronic (8) Pulmonary fibrosis Current visit: Yes Status: Chronic (9) COPD (chronic obstructive pulmonary disease) Current visit: Yes Status: Chronic (10) Oxygen dependent Current visit: Yes Status: Chronic (11) GERD (gastroesophageal reflux disease) Current visit: Yes Status: Chronic (12) Hypothyroidism Current visit: Yes Status: Chronic (13) Osteoarthritis Current visit: Yes Status: Chronic (14) Depression Current visit: Yes Status: Chronic (15) UTI (urinary tract infection) Problem details: > 100,000 colonies Citrobacter Current visit: Yes Status: Resolved (16) Edema of left lower extremity Current visit: Yes Status: Acute (17) Dementia Current visit: Yes Status: Acute Assessment and Plan: Have independently interviewed and examined pt. Chart reviewed. Case discussed with CM and my GLEASON OPERATOR. Care plan developed with my supervision; agree with above. Resting comfortably this evening. Sleeping soundly. Lungs: decreased, no distress on O2 AB: soft nt/nd MSE: somnolent Lab: reviewed. HGB without decrease CXR: stable. Plan: Continue with supportive care. Working on discharge placement. Hospital Course Summary Disclaimer: The visit summary below is not to be considered part of the above Progress Note.
--- NOTE | 2017-05-05 14:29 | XRay Report ---
Indication: increased SOA PROCEDURE: XR chest 1V: Encounter: Initial Comparison: April 29, 2017 Findings: Continued right lower lobe consolidation. Lungs are hyperinflated. No new areas of airspace disease. No pneumothorax. Small pleural effusions. Heart size and mediastinal contours are stable. Cardiac pacemaker. Impression: Stable appearance of the chest. .
[2017-05-05] MEDS: LORazepam 0.5 MG TABLET PO PRN (18:35)
[2017-05-05] MEDS: MELATONIN 1 MG TABLET PO SCH (21:35)
[2017-05-05] MEDS ORDERED: FALL RISK - PHARMACY CONSULT MC PRN (23:32)
[2017-05-06] MEDS: LORazepam 0.5 MG TABLET PO PRN ×2 (00:57→08:26)
[2017-05-06] MEDS: HYDROCODONE/APAP 5mg/325mg TABLET PO PRN ×2 (04:37→10:02)
[2017-05-06] MEDS: OMEPRAZOLE 20 MG CAPSULE PO SCH (06:19)
[2017-05-06] MEDS: BUDESONIDE INH.SOLN 0.5mg/2ml NEB AEROSOL SCH (06:56)
[2017-05-06] MEDS: ALBUTEROL/IPRATROPIUM 2.5mg-0.5mg/3ml NEB IH SCH ×2 (06:56→10:32)
[2017-05-06 07:00] VITALS: RESP 20
[2017-05-06 08:24] VITALS: BP 152/58; PULSE 100; TEMP 97; O2SAT 100
[2017-05-06] MEDS: NYSTATIN 500,000 units/5 ml ORAL LIQUID PO SCH ×2 (09:42→12:57)
[2017-05-06] MEDS: POLYETHYL GLYCOL 3350 17gm PACKET PO SCH (09:42)
[2017-05-06] MEDS: DEXAMETHASONE 4 MG/ML INJECTION IVP SCH (09:42)
[2017-05-06] MEDS: FOLIC ACID 1 MG TABLET PO SCH (09:43)
[2017-05-06] MEDS: SENNA + DOCUSATE TABLET PO SCH (09:43)
[2017-05-06] MEDS: ALLOPURINOL 100 MG TABLET PO SCH (09:43)
[2017-05-06] MEDS: HYDROCORTISONE 2.5% LOTION 59ml TOP SCH (09:44)
[2017-05-06] MEDS: PredniSONE 20 MG TABLET PO SCH (09:45)
[2017-05-06] MEDS: METOCLOPRAMIDE 5mg TABLET PO SCH (10:02)
--- NOTE | 2017-05-06 10:36 | Discharge Instructions ---
Discharge Plan - Med Rec/Dispo Referrals/Follow Up: Jose Francisco Ramirez MD [Physician] - (Please call office and schedule f/u appointment w/ Dr. Ramirez with CBC, CMP, LDH, Mg and chemotherapy on 05/25/17 Weekly CBC, CMP, LDH, and Mg-results to Dr. Ramirez Please schedule follow up with Dr Sony Muro) Prescriptions: New Allopurinol [Zyloprim] 100 mg PO DAILY tablet DiphenhydrAMINE [Benadryl] 25 - 50 mg PO Q6H PRN capsule PRN Reason: Itching Folic Acid [Folate] 1 mg PO DAILY tablet Hydrocortisone 1 applic TOP BID lotion Mag-Al + Sim Oral Liq [Maalox Plus] 30 ml PO Q3H PRN udc PRN Reason: Indigestion Melatonin 3 mg PO HS tablet PEG 3350 17gm PACKET [Miralax] 17 gm PO BID packet Hydrocodone/APAP 5/325 [[place] 5/325] 1 tab PO Q4H PRN #15 tablet PRN Reason: Pain LORazepam [Ativan] 0.5 - 1 mg PO Q4H PRN #15 tablet PRN Reason: ANXIETY/RESTLESSNESS Metoclopramide [Reglan] 5 mg PO DAILY tablet Senna + Docusate [Senna Plus Tablet] 2 tab PO BID tablet Continue Multivitamins (Multivitamin) 1 tab PO DAILY #0 tab Pantoprazole Sodium [Protonix] 40 mg PO BID #0 Menthol [Biofreeze] 1 applic TP PRN PRN #0 PRN Reason: MUSCLE PAIN HydrOXYzine [Atarax] 25 mg PO QID PRN #0 PRN Reason: ALLERY SYMPTOMS Arformoterol Neb [Brovana Neb] 15 mcg AEROSOL BID #0 vial Budesonide 0.25 mg AEROSOL BID #0 Acetaminophen [Tylenol] 1 - 2 tab PO Q4HR PRN #0 PRN Reason: PAIN Ondansetron [Ondansetron Odt] 8 mg PO Q8H PRN #0 PRN Reason: NAUSEA Hyoscyamine Sulfate [Levsin-Sl] 0.125 mg SL Q4H PRN #0 PRN Reason: SECRETIONS Dexamethasone 2 mg PO DAILY Discontinued Clopidogrel Bisulfate [Plavix] 75 mg PO DAILY #0 tab Propranolol HCl 60 mg PO BID #0 LORazepam [Ativan] 0.5 mg PO BID #0 Atorvastatin Calcium 20 mg PO HS #0 No Action LORazepam [Lorazepam] 0.5 - 1 mg PO Q4H PRN #0 PRN Reason: ANXIETY/RESTLESSNESS Discharge Instructions/Outpatient Orders: Final Provider Discharge Instructions Location: Determined By Patient - Disposition 04 To [facility] Home/Facility
--- NOTE | 2017-05-06 10:41 | Extended Care Facility Orders ---
Admission Orders Admit to:: [facility] Allergies/Adverse Reactions: Allergies cefuroxime Allergy (Mild, Verified 02/26/17 16:17) GI upset Cephalosporins Allergy (Unknown, Verified 02/26/17 16:17) rash fentanyl Allergy (Unknown, Verified 02/26/17 16:17) rash Admitting Diagnosis: recurrent non hodgkins lymphoma Admitting Physician: Devin Norwood MD Attending Physician: Devin Norwood MD Code Status: Do Not Resuscitate Anticiapted Length of Stay: greater than 30 days Rehab Potential: fair Rehab Prognosis: fair Diet: 04/27/17 Dinner Regular Diet [DIET] Diet Modifications: May use Facility Protocol or Standing Orders: Yes May have flu vaccine: Yes Evaluations/Treatment: PT, OT, as needed - Additional Information In Event of Arrest: Do Not Start CPR Resident is Aware of Diagnosis: Yes Referrals: Jose Francisco Ramirez MD [Physician] - (Please call office and schedule f/u appointment w/ Dr. Ramirez with CBC, CMP, LDH, Mg and chemotherapy on 05/25/17 Weekly CBC, CMP, LDH, and Mg-results to Dr. Ramirez Please schedule follow up with Dr Sony Muro)
--- NOTE | 2017-05-06 10:45 | Discharge Summary ---
Discharge Information Date of admission: 04/24/17 17:07 <Flaquito Rodrigues - 05/06/17 11:41> 04/24/17 17:07 <Veronica Esquivel V - 05/06/17 10:57> Anticipated date of discharge: 05/06/17 <Veronica sEquivel V - 05/06/17 10:57> Attending Physician: Devin Norwood MD <Flaquito Rodrigues - 05/06/17 11:41> Devin Norwood MD <Veronica Esquivel V - 05/06/17 10:57> Primary care physician: Sony Muro MD <Flaquito Rodrigues - 05/06/17 11:41> Sony Muro MD <Veronica Esquivel V - 05/06/17 10:57> Consults: 04/24/17 17:09 Physician Consult [CONS] Routine Consulting Provider: Jose Francisco Ramirez Reason For Exam: oncology Ordering Provider has Notified Account Relationship Manager: Yes 04/26/17 12:22 Physician Consult [CONS] Routine Consulting Provider: Jagjit Vazquze Reason For Exam: BreastMass Ordering Provider has Notified Account Relationship Manager: Yes Comment: Called Dr. Vazquez 04/26/17 14:17 Consult to Anesthesiology [CONS] Routine Consulting Provider: TATIANNA Alfaro Reason For Exam: Normal Procedure 04/30/17 12:13 Dietary Consult [CONS] Routine Comment: Reason For Exam: 05/01/17 09:00 Physician Consult [CONS] Routine Consulting Provider: Giancarlo Guerrero Reason For Exam: For interpretation of 2-D echo Ordering Provider has Notified Account Relationship Manager: No Comment: Please notify MD in the AM. <Flaquito Rodrigues - 05/06/17 11:41> 04/24/17 17:09 Physician Consult [CONS] Routine Consulting Provider: Jose Francisco Ramirez Reason For Exam: oncology Ordering Provider has Notified Account Relationship Manager: Yes 04/26/17 12:22 Physician Consult [CONS] Routine Consulting Provider: Jagjit Vazquez Reason For Exam: BreastMass Ordering Provider has Notified Account Relationship Manager: Yes Comment: Called Dr. Vazquez 04/26/17 14:17 Consult to Anesthesiology [CONS] Routine Consulting Provider: TATIANNA Alfaro Reason For Exam: Normal Procedure 04/30/17 12:13 Dietary Consult [CONS] Routine Comment: Reason For Exam: 05/01/17 09:00 Physician Consult [CONS] Routine Consulting Provider: Giancarlo Guerrero Reason For Exam: For interpretation of 2-D echo Ordering Provider has Notified Account Relationship Manager: No Comment: Please notify MD in the AM. 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 Status: Acute (4) CAD (coronary artery disease) Status: Chronic (5) Pulmonary fibrosis Status: Chronic (6) Oxygen dependent Status: Chronic (7) HTN (hypertension) Status: Chronic (8) COPD (chronic obstructive pulmonary disease) Status: Chronic (9) Heart valve replaced Status: Chronic (10) GERD (gastroesophageal reflux disease) Status: Chronic (11) Hypothyroidism Status: Chronic (12) Depression Status: Chronic (13) Osteoarthritis Status: Chronic (14) 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 Status: Acute (15) UTI (urinary tract infection) Problem Details: > 100,000 colonies Citrobacter Status: Resolved (16) Edema of left lower extremity Status: Acute (17) Dementia Status: Acute <Veronica Esquivel V - 05/06/17 10:42> (1) 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 Status: Acute (2) 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 Status: Acute (3) Localized swelling of chest wall Status: Acute (4) Swelling of breast Problem Details: Breast mass/hematoma Status: Acute (5) CAD (coronary artery disease) Status: Chronic (6) HTN (hypertension) Status: Chronic (7) Heart valve replaced Status: Chronic (8) Pulmonary fibrosis Status: Chronic (9) COPD (chronic obstructive pulmonary disease) Status: Chronic (10) Oxygen dependent Status: Chronic (11) GERD (gastroesophageal reflux disease) Status: Chronic (12) Hypothyroidism Status: Chronic (13) Osteoarthritis Status: Chronic (14) Depression Status: Chronic (15) UTI (urinary tract infection) Problem Details: > 100,000 colonies Citrobacter Status: Resolved (16) Edema of left lower extremity Status: Acute (17) Dementia Status: Acute <Ravi,Huddleston D - 05/06/17 11:41> - Procedures Procedures: 04/29/1749-[id number]-[id number] needle biopsy of left inguinal node <[place] Valley[place] salmon V - 05/06/17 10:57> - Laboratory Labs: 05/05/17 14:40 05/05/17 14:40 <Flaquito Rodrigues - 05/06/17 11:41> 05/05/17 14:40 05/05/17 14:40 <Veronica Esquivel V - 05/06/17 10:57> - Microbiology Microbiology 04/27/17 13:08 Aspirate, Left Breast Gram Stain - Final 04/27/17 13:08 Aspirate, Left Breast Body Fluid Culture - Final No Growth After 3 Days 04/27/17 13:14 Surgery Site Tissue Gram Stain - Final 04/27/17 13:14 Surgery Site Tissue Surgical Culture - Final No Growth After 3 Days 04/24/17 15:08 Peripheral/Iv Start Blood Culture - Final No Growth After 5 Days 04/24/17 15:07 Peripheral/Iv Start Blood Culture - Final No Growth After 5 Days 04/24/17 16:07 Urine, Voided (Cc/notcc) Urine Culture - Final Citrobacter farmeri <RaviDoHuddleston D - 05/06/17 11:41> Microbiology 04/27/17 13:08 Aspirate, Left Breast Gram Stain - Final 04/27/17 13:08 Aspirate, Left Breast Body Fluid Culture - Final No Growth After 3 Days 04/27/17 13:14 Surgery Site Tissue Gram Stain - Final 04/27/17 13:14 Surgery Site Tissue Surgical Culture - Final No Growth After 3 Days 04/24/17 15:08 Peripheral/Iv Start Blood Culture - Final No Growth After 5 Days 04/24/17 15:07 Peripheral/Iv Start Blood Culture - Final No Growth After 5 Days 04/24/17 16:07 Urine, Voided (Cc/notcc) Urine Culture - Final Citrobacter farmeri <[place] V - 05/06/17 10:57> - Radiology Radiology: 04/24/17- Ct head, chest, abdomen, pelvis- Impression: 1. Rapidly progressive disease recurrence with a very large left breast mass, posterior mediastinal and extensive retroperitoneal, left pelvic and inguinal adenopathy. 2. Consolidative process in the right lower lobe could be due to atelectasis, metastasis or less likely pneumonia. 04/24/17-venous Doppler- LLE Impression: 1. No evidence of acute DVT in either lower limb. 2. Prominent lesion in the left groin area could represent subacute hematoma or mass. Pelvic CT may be helpful for further evaluation. 04/27/17-echocardiogram IMPRESSION 1. Normal LV systolic function with ejection fraction of 69%. 2. Grossly no evidence of vegetations. 3. Pacemaker seen in right heart. 4. Mitral annulus calcification with mitral sclerosis and mild mitral regurgitation. 5. Bioprosthetic aortic valve with a valve area of 1.02 cm2. 6. [id number] tricuspid regurgitation with severe pulmonary hypertension with estimated pulmonary artery systolic pressure of 85. 7. Mild pulmonary insufficiency. 04/29/17- Chest Xray Impression: Stable appearance of the chest with consolidation or mass in the subpleural right lower lobe. 05/05/17-chest x-ray Impression: Stable appearance of the chest. <Veronica Esquivel V - 05/06/17 10:57> - Pathology 04/27/17- left breast biopsy revealed adipose tissue. Benign fatty tissue without evidence of malignancy 04/29/17-left groin lymph node biopsy, pathology revealed low-grade B-cell lymphoma <Veronica Esquivel V - 05/06/17 10:57> History of Present Illness HPI: As above pt seen and examined agree with above plan. All labs reviewed, most are still pending. On exam Pt is very frail Has H.O dementia Skin - multiple purpuric lesions specially on the arms Neck supple Chest - has murmur - RRR, poor air entry bilaterally Ext - marked edema of the LLE. Summary - This is a 86 YO female with H.O NHL apparenlty a B-Cell lymphoma, that has been on Rituximab, per Dr Hurst (Staff Medical Oncologist). Pt also has a paraproteinemia with cold agglutinins which have caused in the past hematologic problems - and could also cause auto-immune phenomena; pt has also received IVIg for this. Pt comes with multiple lesions on her arms and legs ( purpuric - non nodular) and is being investigated further to R/O infection or disease progression. Initial CT head, chest abdomen and pelvis suggest that what we are seeing is -most likely - disase progression. Her Hemoglobin is 7, hematocrit is only 11 - Dr Hurst stated that due to the cold agglutinin the Hct is misleading. This may also have caused the very elevated MCV. She has a mass in her lung that is most likely atelectasis (Right lower) and a Left breast mass that appears to be due to the underlying tumor. Her LLE is swollen with no clots due to compression of blood return in the pelvis by large lymph nodes. 2-E echo still pending. Pt does have a murmur and has H.O of valve replacement. The murmur can be worsened by anemia. The lesions of the arms are suggestive of purpura senilis, however if they are new they could be related to coagulopathy, or bleeding (due to underlying malignancy). Does not seem to correpond to endocarditis since there are no lesions in the mucosas (oral) or conjunctivae. Will culture pt and get a procalcitonin. Creatinine is 1.5, and calcium is normal. Will cover for PNA for now and add Nebulizers. Preliminary diagnosis 1) NHL entering a terminal phase ? 2) RLL atelectasis/PNA -? 3) L breast mass - malignant ? 4) Renal failure 5) ? of IgA deficiency 6) Anemia, may need a transfussion soon. 7) No DVT found. If this proves to be disease progression, pt may be a candidate for hospice. <Veronica Esquivel V - 05/06/17 10:57> Hospital Course This is a general summary of the patient's hospital course. For more details refer to the complete medical record. <Flaquito Rodrigues - 05/06/17 11:41> This is a general summary of the patient's hospital course. For more details refer to the complete medical record. <Veronica Esquivel V - 05/06/17 10:57> Hospital course: 04/24/17- Admit Admit patient as outpatient observation under care of Dr. Norwood for acute swelling of left chest wall and left breast Will initiate an acute evaluation on admission. Obtain the following laboratory studies CBC, CMP, magnesium, urinalysis, blood cultures, stool for occult blood. Will obtain radiology studies including CT of the head, chest, abdomen and pelvis. Given worsening left lower extremity swelling. Will also obtain a venous Doppler of bilateral lower extremities to rule out acute thrombus. Monitor patient on cardiac telemetry and obtain a 12-lead EKG given the amount of swelling over the left anterior chest wall. Continue patient on her home oxygen regimen Given reported dark stools, will obtain a stool for occult blood Will review all home medications once reconciled by nursing staff SCD to bilateral lower ext for DVT prophylaxis At this point patient is a Full Code. Family will discuss further with other family members. Will discuss further orders and plan of care with attending, Dr. Norwood. At time of discharge medical care will return to primary care provider, Dr. Abhishek Muro 04/27/17 Erika continues on oxygen by nasal canula as she is chronically on home oxygen. Appreciate consulstation by Dr Ramirez and Dr Vazquez. Planning for biopsy of Purpura on left upper arm as well as left breast later today Continue with breathing treatments and coverage of Levaquin for antimicrobial coverage of possible pneumonia versus atelectasis Continue to monitor blood counts. Continue on Epogen. Hgb yesterday was 6.1 however she is mostly asymptomatic Will discuss further plan of care with attending, Dr Norwood Again patient is a DNR 04/30/17 Lymphoma Anemia- autoimmune hemolytic anemia Pruritus- acute Benign breast mass Pulmonary fibrosis with chronic oxygen dependence Coronary artery disease. COPD History of heart valve replacement. Hypothyroidism GERD Depression. Osteoarthritis Plan- Lymphoma being managed by oncology team She did receive Procrit 20,000 units on 04/25. Continue to follow blood counts, this does account for the [place] increase in leukocytes. White count today is 27.7. Hemoglobin remained stable at 6.3. Continues on Decadron 4 milligrams IV twice a day Pathology of breast biopsy was negative for malignancy. Lymph node biopsy results are pending Continue on chronic oxygen as well as routine Pulmicort and DuoNeb. Continue on Levaquin for empiric pulmonary coverage as well as treatment of Citrobacter urinary tract infection Tylenol and [place] as needed for pain Pruritis - continue with Benadryl, Atarax and hydrocortisone Will discuss further care and orders with attending, Dr. Medina 05/01/17 Continued oncology recommends as per Dr Ramirez Lymph biopsy pathology pending. Continue to follow Anemia- has trended down to 5.7 (under the management of Dr Ramirez) Continue on scheduled steroids 7 days of levaquin completed for UTI- ended 04/30 Continue with Benadryl, Atarax, topical hydrocortisone for ongoing treatment of itching Will discuss further plans and orders with attending, Dr. Medina 05/02/17 20:00 Plans to proceed with chemotherapy discussed with patient and her daughters after several conversations with Dr. Weir this morning. Family members with moderate anxiety although patient seems relatively unaware of the same. Hydroxyzine scheduled to minimize pruritus. Bowel regimen initiated with MiraLAX twice a day and Senokot 2 tablets twice a day to minimize constipation. Hemoglobin low but stable, transfusion contraindicated due to antibodies. Family with multiple questions regarding discharge plans and what will happen if she responds to chemotherapy or if she doesn't respond to chemotherapy. Discussed in generalities based on my prior discussions with Dr. Weir; anticipate continued observation for chemotherapy complications tomorrow with plans to pursue discharge if possible on Thursday. Unclear the patient will be able to return to [facility] care unit she previously resided in if there is a potential for future chemotherapy. 05/03/17 Tolerated chemotherapy well yesterday. Hemoglobin remains low-unable to be transfused due to antibodies. Ongoing pruritus-hydroxyzine increased; consider doxepin cream but not available in hospital pharmacy. Continue bowel regimen, bowel movement reported earlier today. Case management will assist with discharge planning/placement when available tomorrow. 05/04/17 Spend 20 minutes talking with family, patient and CM regarding discharge planning. Hemoglobin remains low however is stable. She is unable to receive -unable to be transfused due to antibodies. Otherwise appears medically stable Continue with hydroxyzine, Benadryl topical hydrocortisone for ongoing pruritus Continue bowel regimen, bowel movement reported earlier today. Case management working on discharge plans 05/05/17 Given sudden change in status will obtain a EKG and Chest Xray. Continues on chronic oxygen. Breath sounds diminished bilaterally No further lab ordering given that she cannot recieve a transfusion Encourage good oral intake Multiple discussions with CM today regarding attempted discharge planning. 05/06/17- Discharge Erika is seen and examined today. She is up in the room and is ambulating to the bathroom. She continues on her baseline of 3 liters of oxygen. She is without new complaint however does note to be fatigued. Discussed plan of care and acceptance to [facility]. She verbalizes wishes for discharge today. She will continue on perscribed medications with some changes. Planned for chemotheapry with Dr Ramirez on 05/25/17. Will also require weekly CBC, CMP, LDH and magnesium. Results sent to Dr. Ramirez. To also be followed by her primary care provider, Dr Sony Muro. She is discharged today in stable condition with her daughter to [facility]. <Veronica Esquivel V - 05/06/17 10:57> Time spent with patient: greater than 35 minutes <Veronica Esquivel V - 05/06/17 10:57> Discharge Plan - Med Rec/Dispo Referrals/Follow Up: Jose Francisco Rmairez MD [Physician] - (Please call office and schedule f/u appointment w/ Dr. Ramirez with CBC, CMP, LDH, Mg and chemotherapy on 05/25/17 Weekly CBC, CMP, LDH, and Mg-results to Dr. Ramirez Please schedule follow up with Dr Sony Muro) <Flaquito Rodrigues - 11:41> Jennifer Instructions: <Flaquito Rodrigues - 05/06/17 11:41> Prescriptions: New Allopurinol [Zyloprim] 100 mg PO DAILY tablet DiphenhydrAMINE [Benadryl] 25 - 50 mg PO Q6H PRN capsule PRN Reason: Itching Folic Acid [Folate] 1 mg PO DAILY tablet Hydrocortisone 1 applic TOP BID lotion Mag-Al + Sim Oral Liq [Maalox Plus] 30 ml PO Q3H PRN udc PRN Reason: Indigestion Melatonin 3 mg PO HS tablet PEG 3350 17gm PACKET [Miralax] 17 gm PO BID packet Hydrocodone/APAP 5/325 [[place] 5/325] 1 tab PO Q4H PRN #15 tablet PRN Reason: Pain LORazepam [Ativan] 0.5 - 1 mg PO Q4H PRN #15 tablet PRN Reason: ANXIETY/RESTLESSNESS Metoclopramide [Reglan] 5 mg PO DAILY tablet Senna + Docusate [Senna Plus Tablet] 2 tab PO BID tablet Continue Multivitamins (Multivitamin) 1 tab PO DAILY #0 tab Pantoprazole Sodium [Protonix] 40 mg PO BID #0 Menthol [Biofreeze] 1 applic TP PRN PRN #0 PRN Reason: MUSCLE PAIN HydrOXYzine [Atarax] 25 mg PO QID PRN #0 PRN Reason: ALLERY SYMPTOMS Arformoterol Neb [Brovana Neb] 15 mcg AEROSOL BID #0 vial Budesonide 0.25 mg AEROSOL BID #0 Acetaminophen [Tylenol] 1 - 2 tab PO Q4HR PRN #0 PRN Reason: PAIN Ondansetron [Ondansetron Odt] 8 mg PO Q8H PRN #0 PRN Reason: NAUSEA Hyoscyamine Sulfate [Levsin-Sl] 0.125 mg SL Q4H PRN #0 PRN Reason: SECRETIONS Dexamethasone 2 mg PO DAILY Discontinued Clopidogrel Bisulfate [Plavix] 75 mg PO DAILY #0 tab Propranolol HCl 60 mg PO BID #0 LORazepam [Ativan] 0.5 mg PO BID #0 Atorvastatin Calcium 20 mg PO HS #0 No Action LORazepam [Lorazepam] 0.5 - 1 mg PO Q4H PRN #0 PRN Reason: ANXIETY/RESTLESSNESS <Flaquito Rodrigues - 05/06/17 11:41> Discharge Instructions/Outpatient Orders: Final Provider Discharge Instructions Location: Determined By Patient <Flaquito Rodrigues - 05/06/17 11:41> - Disposition 01 Discharged Home, Self-Care <Flaquito Rodrigues - 05/06/17 11:41> - Attestation Attestation Narrative: 05/06/17 11:40 Have independently interviewed and examined pt. Chart reviewed. Case discussed with CM and my LAND LEVELER. Care plan developed with my supervision; agree with above. Doing better today. Feeling fair. Breathing stable. Lungs: decreased, no distress CV: regular with murmur MSE: awake alert appropriate Plan: Will d/c to [facility]. See orders for details. <Flaquito Rodrigues - 05/06/17 11:41>
--- NOTE | 2017-05-06 12:42 | Progress Note ---
Oncology Subjective Patient sleepy today but otherwise doing well. Her itching may be slightly worse. She will be going to [facility]. She'll need follow-up on . Exam Vital signs: Temperature 97 F 05/06/17 08:22 Pulse Rate 100 05/06/17 08:22 Respiratory Rate 20 05/06/17 10:30 Blood Pressure 152/58 H 05/06/17 08:22 Pulse Oximetry 100 05/06/17 10:30 Oxygen Delivery Method Nasal Cannula Oxygen Flow Rate 3 Fraction of Inspired Oxygen 3 - Constitutional no acute distress, thin - Routine HEENT Exam Head: Present: normocephalic Eye: Present: EOMI, PERRL Nose: moist mucous membranes - Routine Neck Exam Absent: lymphadenopathy - Routine Chest/Breast/Axilla Exam Breast: Present: swelling (and ecchymosis left breast) - Routine Respiratory Exam Present: decreased breath sounds - Routine Cardiovascular Exam Present: RRR - Routine Abdominal Exam Present: soft, non tender. Absent: organomegaly - Routine Extremities Exam Present: edema (left greater than right) - Routine Skin Exam Present: dry, warm, ecchymosis - Routine Neurological Exam Present: CN II-XII intact Oncology Results - Labs CBC & Chem 7: 05/05/17 14:40 05/05/17 14:40 Labs: Short CBC 05/05/17 Range/Units 14:40 WBC 18.2 H (4.5-11.0) T/MM3 Hgb 6.3 L (12-16) GM/DL Hct 15.3 L* (36-46) % Plt Count 69 L (130-400) T/MM3 BMP 05/05/17 14:40 Sodium 142 Potassium 5.4 H Chloride 104 Carbon Dioxide 31 H BUN 60.0 H* Creatinine 1.0 Glucose 116 H Calcium 9.7 Liver Function 05/05/17 Range/Units 14:40 Total Bilirubin 1.40 H (0.20-1.30) MG/DL AST 66 H (14-36) U/L ALT 63 H (9-52) U/L Alkaline Phosphatase 84 (38-126) U/L Albumin 3.0 L (3.5-5.0) G/DL Assessment and Plan Assessment and Plan: 1- 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 The patient was treated multiple times in the past with single agent rituximab with the last given in March 2017. The patient received the first cycle of cyclophosphamide 500 mg/m as in- patient at [facility] without complications. 2- severe autoimmune hemolytic anemia, stable. 3- Moderate to severe itching most likely due to the lymphoma. 05/05/17: Patient has tolerated cyclophosphamide well. Discharge planning in progress, daughter states working on placement at [facility] in [place]. Patient reluctant to get labs frequently. Discussed f/u recommendations with patient/daughter; recommend twice weekly labs. Agrees to do one time a week. Orders placed in discharge planning for follow-up with Dr. Ramirez on May 25 with CBC, CMP, LDH, magnesium and chemotherapy. Ordered weekly labs. 05/06/17: Patient being discharged today. Platelets were 69,000. Will need to follow. Currently on a weekly plan. Will see back on 731 for next cycle. We'll taper dexamethasone from 4 mg twice a day to 4 mg daily. - Time Spent With Patient Total time spent is greater than 50% in coordination of care (as documented) at patient's floor/unit and/or counseling patient: less than 15 minutes Sepsis Assessment - Evaluation Sepsis screening result: No Definite Risk
--- NOTE | 2017-05-06 14:55 | Progress Note ---
DATE 05/06/2017 POSTOP DAY #9 HISTORY The patient is resting in bed at this time. PHYSICAL EXAMINATION BREASTS: The wound at the left breast from the operation performed on 2016 looks good. There is quite a bit of bruising at the left breast yet at this time. There is no sign of infection. EXTREMITIES: The wound at the left upper arm from the procedure performed on looks good. No sign of any wound healing problems at this wound. IMPRESSION Doing well following biopsy of area of ecchymoses and purpura at left upper arm , aspiration of fluctuant mass at left breast, core needle biopsy of large fluctuant mass at left breast without imaging guidance and incision and drainage of hematoma at left breast on 04/27/2017. TREATMENT I did remove skin stitches at the wound at the left upper arm today. Benzoin and 1/2-inch-wide Steri-Strips were applied to the wound. I did remove skin stitches at the wound at the left breast today. Benzoin and a 1/2-inch wide Steri-Strip were applied to the wound at the left breast. PLAN The patient is scheduled to be dismissed from [facility] today and transferred to a retirement at [place], [place]. ELENI
[2017-05-07] MEDS ORDERED: DEXAMETHASONE 4 MG TABLET PO SCH (09:00)
== END 2017-05-06 14:10 | DRG 824 ==
LOC: MED
PROVIDERS: ADMIT Hospitalist; ATTEND Internal Medicine

== ENCOUNTER 2017-05-12 09:49 | Inpatient (IN) ==
[2017-05-12] MEDS ORDERED: ONDANSETRON 4 MG/2 ML INJECTION IVP PRN (14:56)
--- NOTE | 2017-05-12 15:08 | History & Physical Report ---
<Latasha Verduzco - Last Filed: 05/12/17 15:03> History of Present Illness Date: 05/12/17 Chief complaint: severe anemia, non-hodgkins lymphoma HPI: Erika Duque is a pleasant 86-year-old female who is currently under the treatment of Dr. 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 She has been treated multiple times in the past with single agent Rituximab with tlast treatment given in March 2017. On 04/24/17 she was admitted to [facility] for evaluation of left breast swelling, ecchymosis and mass as well as increasing back pain, bruising and feeling cold. She underwent biopsy of her left breast and arm which was negative for malignancy. During her hospitalization, she was noted to be anemic with hemoglobin dropping to 5.7 and improved to 6.3 prior to discharge on 05/05. During her hospitalization, she was also treated for a UTI with levaquin. During her hospitalization, patient and family opted to undergo cyclophosphamide 500mg/m2 as an inpatient which she appeared to tolerate well. She was discharged on 05/06 to [facility]. Family reports that since her discharge, she has appeared more lethargic and they express concerns it is secondary to the recent chemotherapy. Today, 05/12 underwent routine blood work at [facility] and family was notified of the results which showed a hemoglobin of 5.3. She was accpeted as a direct admission to inpatient under the care of the hospitalist service and Dr. Ramirez was consulted. 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 She also does have a history of GI bleeding in the past and notes that her stools are black intermittently. She is noted to be on oxygen by nasal cannula, which is chronic given her pulmonary fibrosis. Did review advanced directives in depth with patient and family at the bedside. They verbalized at this point, they want everything done for patient, however, are considering do not resuscitate in the near future. On exam, she is seen resting in bed with her eldest daughter, Alla, at the bedside. She is alert but appears somnolent and family states she has been "lethargic". She complains of aching all over but denies any chest pain, increased shortness of breath, abdominal pain, nausea, vomiting or dysuria. Family states that her appetite has been poor but she is drinking water well. No known fevers or chills. Labs upon arrival were obtained and reveal WBC 9.6, anemia with hemoglobin 5.4, thrombocytopenia with platelets at 87. Sodium 144, potassium 4.4, BUN elevated at 54, SCr elevated at 1.4 and glucose 196. Renal function elevated as compared to discharge labs on 05/05 which showed BUN 60 and SCr 1.1. Cardiac exam revealed irregular rhythm with 2/6 murmur noted. Lung sounds are diminished bilaterally with crackles noted. Mild respiratory distress noted with tachypnea. No retractions, audible wheezing or stridor. Ecchymosis improving to left breast with persistent induration present secondary to hematoma. Abdomen soft, nontender with active bowel sounds. 1+ edema noted to left hand. Ultrasound druing prior admission was negative for DVT. 3-4+ pitting edema noted to bilateral lower extremities with 2+ pedal pulses bilaterally. 2+ radial pulses bilaterally. SCDs in place. Limited history and exam due to patient's dementia. Review of Systems ROS unobtainable: due to mental status All systems: reviewed and no additional remarkable complaints except as stated - Constitutional Constitutional: Present: fatigue, lethargy, weakness. Absent: chills, fever(s) - EENMT Eyes: Absent: change in vision Nose: Absent: nosebleeds Mouth/Throat: Present: dry mouth. Absent: pain - Cardiovascular Cardiovascular: Present: edema, heart murmur. Absent: chest pain, palpitations , syncope Rhythm: Present: abnormal rhythm Vascular: Present: pedal edema - Respiratory Respiratory: Present: dyspnea. Absent: cough, wheezing - Gastrointestinal Gastrointestinal: Present: diarrhea. Absent: abdominal pain, vomiting - Genitourinary Genitourinary: Present: urinary incontinence. Absent: dysuria Menstruation: post hysterectomy - Musculoskeletal Musculoskeletal: Present: back pain, muscle weakness. Absent: deformity - Integumentary/Breasts Integumentary: Present: swelling. Absent: jaundice Integumentary Comments: resolving ecchymosis and hematoma noted to left breast. - Neurological Neurological: Present: memory loss, weakness - Psychiatric Psychiatric: Present: anxiety - Hematologic/Lymphatic Hematologic/Lymphatic: Present: easy bruising PFS Medical History Updates: Non-Hodgkin's Lymphoma. 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 COPD. Oxygen dependent. CHF. Sleep apnea. GERD. Chronic kidney disease-stage III. Hypertension. CAD. Pulmonary fibrosis. Hypothyroidism. Depression. Osteoarthritis. Cataracts. Glaucoma. Macular degeneration. History of shingles. Surgical History: Heart catheter with stent placement-Dr. Guerrero-2015. Cholecystectomy. Pacemaker. Splenectomy. Hysterectomy. Shoulder surgery- 2008. Aortic valve replacement and mitrial repair. Family History Updates: Father - , age 50's, CVA. Mother - , age 70's, heart disease. - Social History Smoking status: Never smoker Alcohol intake frequency: does not drink Housing: assisted living facility Current occupational status: retired Current residence: Assisted Living Social history: PCP - [employer] [facility]. Onc - Dr. Jose Francisco Ramirez. Medications Home Medications Medication Instructions Recorded Confirmed Type Multivitamins (Multivitamin) 1 tab PO DAILY #0 tab 04/10/14 04/24/17 History Pantoprazole Sodium [Protonix] 40 mg PO BID #0 06/06/14 04/24/17 History Acetaminophen [Tylenol] 1 - 2 tab PO Q4HR PRN #0 02/26/17 04/24/17 History Arformoterol Neb [Brovana Neb] 15 mcg AEROSOL BID #0 vial 02/26/17 04/24/17 History Budesonide 0.25 mg AEROSOL BID #0 02/26/17 04/24/17 History HydrOXYzine [Atarax] 25 mg PO QID PRN #0 02/26/17 04/24/17 History Hyoscyamine Sulfate [Levsin-Sl] 0.125 mg SL Q4H PRN #0 02/26/17 04/24/17 History LORazepam [Lorazepam] 0.5 - 1 mg PO Q4H PRN #0 02/26/17 04/24/17 History Menthol [Biofreeze] 1 applic TP PRN PRN #0 02/26/17 04/24/17 History Ondansetron [Ondansetron Odt] 8 mg PO Q8H PRN #0 02/26/17 04/24/17 History Dexamethasone 2 mg PO DAILY 04/24/17 04/24/17 History Allergies Allergy/AdvReac Type Severity Reaction Status Date / Time cefuroxime Allergy Mild GI upset Verified 02/26/17 16:17 Cephalosporins Allergy Unknown rash Verified 02/26/17 16:17 fentanyl Allergy Unknown rash Verified 02/26/17 16:17 Exam Vital Signs: Temperature 95.8 F L 05/12/17 12:03 Pulse Rate 86 05/12/17 12:03 Respiratory Rate 20 05/12/17 12:03 Blood Pressure 141/68 H 05/12/17 12:03 Pulse Oximetry 99 05/12/17 12:03 Oxygen Delivery Method Nasal Cannula Oxygen Flow Rate 3 Height: 5 ft Weight: 107 lb 12.897 oz Body Mass Index: 21.0 - Constitutional Present: mild distress, thin, cooperative, somnolent - Routine HEENT Exam Head: Present: normocephalic, atraumatic Eye: Absent: conjunctival icterus ENT: Present: mucous membranes dry - Routine Neck Exam Present: supple, trachea midline - Routine Chest/Breast/Axilla Exam Breast: Present: induration (resolving hematoma) - Routine Respiratory Exam Present: decreased breath sounds, respiratory distress (mild), crackles, diminished air movement - Routine Cardiovascular Exam Present: murmur, irregular rhythm - Routine Abdominal Exam Present: soft, normoactive bowel sounds, non distended, non tender - Routine Extremities Exam Present: edema (3-4+ bilateral lower extremity), pulses intact - Routine Skin Exam Present: intact, pallor, warm. 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 Stage IV disease with liver and bone marrow involvement. Residual disease present in 02/2014. flow positive for monoclonal B cell neoplasm compatible with original diagnosis. 0.2gm M-spike that is an IgM lambda monoclonal protein at diagnosis that has resolved. Associated with auto immune hemolytic anemia. CT scan shows dramatic response. 2 years of maintenance Rituxan every 2 months from May 2014 to March 2016. Hospitalization for hemolytic anemia 02/26/2017 with swollen left leg and CT showing recurrence. Rituxan was administered weakly for 4 weeks with some improvement. 05/12/17 15:22 (3) Pulmonary fibrosis Current visit: No Status: Chronic (4) Oxygen dependent Current visit: No Status: Chronic (5) COPD (chronic obstructive pulmonary disease) Current visit: No Status: Chronic (6) HTN (hypertension) Current visit: No Status: Chronic (7) CAD (coronary artery disease) Current visit: No Status: Chronic (8) GERD (gastroesophageal reflux disease) Current visit: No Status: Chronic (9) Hypothyroidism Current visit: No Status: Chronic (10) Osteoarthritis Current visit: No Status: Chronic (11) Dementia Current visit: No Status: Acute DVT Prophylaxis: SCD's GI Prophylaxis: Protonix Resuscitation Status: Do Not Resuscitate Assessment and Plan: -Hemolytic anemia and splenic marginal zone B cell lymphoma: .Admit to inpatient status under the care of Dr. Peng. .Consult Dr. Ramirez for oncology expertise. Appreciate his time and expertise. .Per Dr. Ramirez, obtain type and cross x 2 units. Patient has associated cold agglutinin and anti-Kalee antibodies present and poses a high risk of transfusion reaction. Transfusion and treatment of anemia orders per Dr. Ramirez. Anticipate Neupogen per Dr. Ramirez. .Monitor patient closely on telemetry. .SCDs for DVT prophylaxis. .Macrocytic anemia with hemoglobin on admission at 5.4 with thrombocytopenia (Plt 87). .Elevated BUN and SCr noted on admission at 54 and 1.4 respectively. SCr increased from 1.1 on 05/05. Initiate NS at 100cc/hr for hydration. .In light of increased somnolence and lethargy and recent UTI, will obtain straight cath UA as patient is incontinent. .In light of increased respiratory effort and crackles, will obtain CXR. .Ativan as needed for anxiety. .Will resume home medications once reconciled by nursing staff. -Oxygen dependence secondary to pulmonary fibrosis and COPD. .Patient uses continuous home oxygen at 3L. Continue oxygen and monitor saturations closely. -Hypertension and CAD. .Continue home medications and monitor blood pressure closely. -CHF. -Echo on 04/27 revealed normal LV systolic function with EF 69%, ,mild mitral regurg, bioprostethic aortic valve, mild to moderate tricuspid regurg with severe pulmonary hypertension with estimated pulmonary artery systolic pressure of 85. -Monitor daily weight and for signs of fluid overload. -GERD .History of GI bleed. Protonix for GI protection and GERD. Discussed advanced directives with pateint and daughter. She does not want heroic measures done. This was present prior to hospitalization. Patient wishes to be DNR. Upon discharge, patient's care will be returned to her PCP, Dr. Muro. - Time spent with patient greater than 35 minutes Sepsis Assessment - Evaluation Sepsis screening result: No Definite Risk Hospital Course Summary Disclaimer: The visit summary below is not to be considered part of the above Progress Note. Hospital Course: 05/12/17 16:56 -Hemolytic anemia and splenic marginal zone B cell lymphoma: .Admit to inpatient status under the care of Dr. Peng. .Consult Dr. Ramirez for oncology expertise. Appreciate his time and expertise. .Per Dr. Ramirez, obtain type and cross x 2 units. Patient has associated cold agglutinin and anti-Kalee antibodies present and poses a high risk of transfusion reaction. Transfusion and treatment of anemia orders per Dr. Ramirez. Anticipate Neupogen per Dr. Ramirez. .Monitor patient closely on telemetry. .SCDs for DVT prophylaxis. .Macrocytic anemia with hemoglobin on admission at 5.4 with thrombocytopenia (Plt 87). .Elevated BUN and SCr noted on admission at 54 and 1.4 respectively. SCr increased from 1.1 on 05/05. Initiate NS at 100cc/hr for hydration. .In light of increased somnolence and lethargy and recent UTI, will obtain straight cath UA as patient is incontinent. .In light of increased respiratory effort and crackles, will obtain CXR. .Ativan as needed for anxiety. .Will resume home medications once reconciled by nursing staff. -Oxygen dependence secondary to pulmonary fibrosis and COPD. .Patient uses continuous home oxygen at 3L. Continue oxygen and monitor saturations closely. -Hypertension and CAD. .Continue home medications and monitor blood pressure closely. -CHF. -Echo on 04/27 revealed normal LV systolic function with EF 69%, ,mild mitral regurg, bioprostethic aortic valve, mild to moderate tricuspid regurg with severe pulmonary hypertension with estimated pulmonary artery systolic pressure of 85. -Monitor daily weight and for signs of fluid overload. -GERD .History of GI bleed. Protonix for GI protection and GERD. Discussed advanced directives with pateint and daughter. She does not want heroic measures done. This was present prior to hospitalization. Patient wishes to be DNR. Upon discharge, patient's care will be returned to her PCP, Dr. Muro. <PengBarb redmond Cece - Last Filed: 05/12/17 19:09> History of Present Illness Date: 05/12/17 [facility] Patient Stated Medical History Dementia Yes Cataracts Yes Glaucoma Yes Macular Degeneration Yes Cardiac Arrhythmia Yes Congestive Heart Failure Yes Other Cardiology Yes: pace maker Sleep Apnea No Other Respiratory Yes: Oxygen dependant Other GI Yes: lymphoma in stomach Other Hematologic Yes: hemolytic anemia Shingles Yes Blood Transfusions Yes Chemotherapy Yes Other Behavioral Health Yes: dementia Post Menopausal Yes Exam Vital Signs: Temperature 96.8 F 05/12/17 15:24 Pulse Rate 87 05/12/17 16:30 Respiratory Rate 18 05/12/17 16:04 Blood Pressure 141/77 H 05/12/17 15:24 Pulse Oximetry 98 05/12/17 16:04 Oxygen Delivery Method Nasal Cannula Oxygen Flow Rate 3 Height: 1.52 m Weight: 48.9 kg Results - Labs CBC & Chem 7: 05/12/17 13:21 05/12/17 12:25 Microbiology Results: Microbiology 05/12/17 18:06 Peripheral/Iv Start Blood Culture - Preliminary Culture Initiated - Results Pending 05/12/17 17:36 Peripheral/Iv Start Blood Culture - Preliminary Culture Initiated - Results Pending Assessment and Plan (1) 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 Current visit: No Status: Acute (2) CAD (coronary artery disease) Current visit: No Status: Chronic (3) Pulmonary fibrosis Current visit: No Status: Chronic (4) Oxygen dependent Current visit: No Status: Chronic (5) HTN (hypertension) Current visit: No Status: Chronic (6) COPD (chronic obstructive pulmonary disease) Current visit: No Status: Chronic (7) GERD (gastroesophageal reflux disease) Current visit: No Status: Chronic (8) Hypothyroidism Current visit: No Status: Chronic (9) Osteoarthritis Current visit: No Status: Chronic (10) 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 We discussed and formulated the assessment and plan as above with the additions below. I've seen and examined the patient independently. The patient is seen accompanied by her daughter. The patient is fairly lethargic. She has been going downhill the last several days per her daughter. Her appetite has been poor and she's been more lethargic. Today she's had some tremulousness which is possibly shaking chills. She denies any cough. She is chronically short of breath. She denies any dysuria. She did have a UTI that was treated with Levaquin last week. On exam she is drowsy but arousable. She says "I'm fine". She sleeps most of the time that I'm in the room. She ate very little for supper. On exam she appears chronically ill. Chest reveals fine crackles in the lower one half of the lung fletcher. Cardiovascular reveals a regular rate and rhythm. Left breast is firm and the patient's daughter states she had a hematoma here. Abdomen is soft and nontender. Extremities reveal bilateral lower extremity edema. Her daughter states that the right lower extremity edema is new. Lab work was reviewed including hemoglobin 5.4, white count 9.6 which is up from 2 yesterday. BUN is 54. Creatinine 1.4. Blood cultures were obtained. Lactate is 1.3. Urinalysis shows 2+ bacteria but only 1-3 white cells and negative nitrite and negative leukocyte esterase. Chest x-ray today on my read appears improved compared to 05/05/2017 when she had some edema. I do not see any infiltrates. Impression Hemolytic anemia-with worsening hemoglobin. Patient has multiple antibodies and it has been difficult to find compatible blood in the past. 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 Ramirez Repeat lactate IV fluids Start vancomycin and Levaquin for possible sepsis With the patient's multiple complex medical issues and poor functioning, prognosis seems poor. Resume home meds when Med rec completed It should be noted that above in Latasha's note, she states family is considering DO NOT RESUSCITATE, but that should be family is considering hospice. They have already decided for DO NOT RESUSCITATE status. Hospital Course Summary Disclaimer: The visit summary below is not to be considered part of the above Progress Note. Addendum entered and electronically signed by Latasha Verduzco PA 05/12/17 18: 42: Discussion of advance directive with patient and family. Patient is a DNR at this time.
[2017-05-12] MEDS: NS 1,000 ML IV SCH (15:58)
--- NOTE | 2017-05-12 16:23 | Consult Note ---
Oncology HPI - Data of Consult Patient: known to practice within the last 3 years Consult date: 05/12/17 Requesting Physician: Barb Peng MD Primary Care Provider: Sony Muro MD Family Provider: Sony Muro MD - Consult Narrative Reason for consult: NHL History of present illness: Well known 85 yr. old female with history of recurrent NHL had recent hospitalization at [facility] w/ evidence of progressive disease, received one cycle of Cytoxan and tolerated well. Was also treated for UTI. Since dismissal to [place], significantly weaker, decreased appetite, and overall decline in status. Noted to have a HGB of 5.3 on labs and she is direct admit to [facility]. At time of intake, patient reclining in bed w/ eyes closes, responds briefly to questions, but doesn't open eyes. States generalized aching, feels cold, and noted to have chills. Feels weak. Denies chest pain, SOA, no abd. pain. Daughters at bedside and reiterate patient is a NO CODE BLUE. 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 --03/2014: She was admitted with Mycoplasma Pneumonia. She had flow cytometry consistent with persistent lymphoma. She was also found to have a low level of an IgM monoclonal protein 0.2 g. 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 She was found to be a cold antibody that could be associated with either her lymphoma or mycoplasma. She was begun on steroids and her hemoglobin gradually improved it was 7.1. --04/27/14: Acute worsening of hemolytic anemia with CT showing mediastinal adenopathy. --04/28/14: Rituxan weekly started. 8 cycles completed 06/22/14. --06/08/14: Drop in hemoglobin. --08/31/14: Maintenance Rituxan every 2 months started. --Monthly IVIG at [facility] through Infectious disease. --04/2014: M-spike of 0.2. Resolved with Rituxan. --07/15/16: Blood transfusion of [address] Lennon for HGB of 7.3. --06/2016: Iron infusions with Dr. Lennon. 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 Some of them were actively bleeding. These were treated with multiple applications of bipolar electrocautery with cessation of bleeding. --02/27/17: Admission to [facility] for NHL splenic marginal lymphoma and autoimmune hemolytic anemia. Rituxan weekly given on 02/27/17 and 03/06/17. Dismissed on 03/06/17. --03/2017. Admission to [facility]. Received Cycle 1 of Cytoxan as in-patient, tolerated well. Review of Systems - Constitutional Constitutional: Present: daytime sleepiness, fatigue, lethargy - EENT Eyes: Absent: change in vision Mouth/Throat: Absent: sore throat - Cardiovascular Cardiovascular: Present: edema. Absent: chest pain, palpitations - Respiratory Respiratory: Present: dyspnea. Absent: cough - Gastrointestinal Gastrointestinal: Absent: abdominal pain, nausea, vomiting - Musculoskeletal Musculoskeletal: Present: muscle weakness - Integumentary/Breasts Integumentary: Present: swelling - Neurological Neurological: Present: weakness. Absent: headache(s) - Psychiatric Psychiatric: Present: anxiety (chronic. ) - Hematologic/Lymphatic Hematologic/Lymphatic: Present: anemia, easy bruising, lymphadenopathy [facility] Patient Stated Medical History Dementia Yes Cataracts Yes Glaucoma Yes Macular Degeneration Yes Cardiac Arrhythmia Yes Congestive Heart Failure Yes Other Cardiology Yes: pace maker Sleep Apnea No Other Respiratory Yes: Oxygen dependant Other GI Yes: lymphoma in stomach Other Hematologic Yes: hemolytic anemia Shingles Yes Blood Transfusions Yes Chemotherapy Yes Other Behavioral Health Yes: dementia Post Menopausal Yes Medical History Updates: Non-Hodgkin's Lymphoma. 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 COPD. Oxygen dependent. CHF. Sleep apnea. GERD. Chronic kidney disease-stage III. Hypertension. CAD. Pulmonary fibrosis. Hypothyroidism. Depression. Osteoarthritis. Cataracts. Glaucoma. Macular degeneration. History of shingles. Surgical History: Heart catheter with stent placement-Dr. Guerrero-2015. Cholecystectomy. Pacemaker. Splenectomy. Hysterectomy. Shoulder surgery- 2009. Aortic valve replacement and mitrial repair. - Social History Smoking status: Never smoker Current residence: [facility]isted [facility] Medications Home Medications Medication Instructions Recorded Confirmed Type Pantoprazole Sodium [Protonix] 40 mg PO BID #0 06/06/14 05/13/17 History Acetaminophen [Tylenol] 1 - 2 tab PO Q4HR PRN #0 02/26/17 05/13/17 History Arformoterol Neb [Brovana Neb] 15 mcg AEROSOL BID #0 vial 02/26/17 05/13/17 History HydrOXYzine [Atarax] 25 mg PO QID PRN #0 02/26/17 05/13/17 History Hyoscyamine Sulfate [Levsin-Sl] 0.125 mg SL Q4H PRN #0 02/26/17 05/13/17 History Menthol [Biofreeze] 1 applic TP PRN PRN #0 02/26/17 05/13/17 History Dexamethasone 2 mg PO DAILY 04/24/17 05/13/17 History Budesonide 0.25 mg IH BID 05/13/17 05/13/17 History Budesonide 0.5 mg IH BID 05/13/17 05/13/17 History DiphenhydrAMINE [Benadryl] 255 mg PO Q6H PRN 05/13/17 05/13/17 History Hydrocodone/APAP 5/325 [[place] 1 tab PO BID 05/13/17 05/13/17 History 5/325] LORazepam [Lorazepam] 1 tab PO BID 05/13/17 05/13/17 History Multivitamin [One Daily 1 each PO DAILY 05/13/17 05/13/17 History Multivitamin] Ondansetron HCl [Zofran] 8 mg PO Q6H 05/13/17 05/13/17 History Ondansetron HCl [Zofran] 8 mg PO Q8H PRN 05/13/17 05/13/17 History Allergies Allergy/AdvReac Type Severity Reaction Status Date / Time cefuroxime Allergy Mild GI upset Verified 02/26/17 16:17 Cephalosporins Allergy Unknown rash Verified 02/26/17 16:17 fentanyl Allergy Unknown rash Verified 02/26/17 16:17 Exam Vital signs: Temperature 96.8 F 05/12/17 15:24 Pulse Rate 87 05/12/17 16:04 Respiratory Rate 18 05/12/17 16:04 Blood Pressure 141/77 H 05/12/17 15:24 Pulse Oximetry 98 05/12/17 16:04 Oxygen Delivery Method Nasal Cannula Oxygen Flow Rate 3 - Constitutional mild distress, well nourished, somnolent - Routine HEENT Exam Head: Present: normocephalic. Absent: facial swelling Eye: Present: EOMI. Absent: scleral injection, conjunctivae pink (pale) ENT: Present: mucous membranes dry - Routine Neck Exam Present: supple. Absent: lymphadenopathy, tenderness - Routine Chest/Breast/Axilla Exam Axillae: Absent: lymphadenopathy - Routine Respiratory Exam Present: decreased breath sounds. Absent: rhonchi, wheezes, crackles - Routine Cardiovascular Exam Present: RRR. Absent: gallop - Routine Abdominal Exam Present: soft. Absent: tenderness, organomegaly - Routine Extremities Exam Present: edema Comments: 2-3+ pedal edema bilateral LE, 1+ bilateral UE - Routine Skin Exam Present: intact, pallor - Routine Neurological Exam Present: alert somnolent-keeps eyse closed, but answers questions - Routine Psychiatric Exam Present: cooperative Oncology Results - Labs CBC & Chem 7: 05/13/17 04:57 05/13/17 04:58 Labs: Short CBC 05/12/17 Range/Units 13:21 WBC 9.6 (4.5-11.0) T/MM3 Hgb 5.4 L* (12-16) GM/DL Hct 19.2 L (36-46) % Plt Count 87 L (130-400) T/MM3 BMP 05/12/17 12:25 Sodium 144 Potassium 4.4 Chloride 105 Carbon Dioxide 35 H BUN 54.0 H* Creatinine 1.4 H Glucose 196 H Calcium 9.5 Liver Function 05/12/17 Range/Units 12:25 Total Bilirubin 1.20 (0.20-1.30) MG/DL AST 48 H (14-36) U/L ALT 48 (9-52) U/L Alkaline Phosphatase 84 (38-126) U/L Albumin 2.9 L (3.5-5.0) G/DL Assessment and Plan Assessment and Plan: 1. Non-Hodgkin's lymphoma/splenic marginal zone B-cell lymphoma, with recurrent disease. Recenlty received cycle 1 Cytoxan as in-patient,tolerated well. 2. Chills, lethargy, and generalized aching; possible sepsis. 3. 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 HGB 5.4 today. Plan 1 unit PRBC's transfusion. 4. Mutliple comorbidities, including CRF, CHF/valvular disease, and COPD Plan Discussed with Latasha Verduzco, will check blood cultures X2, UA/urine culture has been ordered, and treat with empiric antibiotics. Will check LDH and uric acid. Continue supportive care. Will follow counts, renal, and hepatic function closely. Sepsis Assessment - Evaluation Sepsis screening result: No Definite Risk
[2017-05-12] MEDS ORDERED: LEVOFLOXACIN PB 750 MG/150 ML BAG IV SCH (19:00)
[2017-05-12] MEDS: MORPHINE SULFATE 2 MG SYRINGE IVP PRN (21:51)
[2017-05-12] MEDS: HYDROCORTISONE 1% CREAM 28.35gm TOP PRN (21:53)
[2017-05-13] MEDS: MORPHINE SULFATE 2 MG SYRINGE IVP PRN ×3 (00:28→21:58)
[2017-05-13] MEDS: DiphenhydrAMINE 25 MG CAPSULE PO PRN ×2 (01:07→09:49)
[2017-05-13] MEDS: HYDROCORTISONE 1% CREAM 28.35gm TOP PRN (01:11)
[2017-05-13] MEDS: NS 1,000 ML IV SCH (05:27)
--- NOTE | 2017-05-13 09:12 | XRay Report ---
Indication: dyspnea, chemo PROCEDURE: XR chest 1V: Encounter: Initial Comparison: May 05, 2017 Findings: Lungs are stable in appearance with hyperinflation and emphysematous changes. Right lower lobe airspace disease is unchanged. Small effusions. No pneumothorax. Heart remains enlarged. Mediastinal contours are stable. Left pacemaker. Pulmonary vascularity is stable. Impression: Stable appearance of the chest. .
[2017-05-13] MEDS ORDERED: ACETAMINOPHEN 325 MG TABLET PO ONE (09:47)
[2017-05-13] MEDS ORDERED: FALL RISK - PHARMACY CONSULT XX PRN (12:07)
--- NOTE | 2017-05-13 13:09 | Progress Note ---
<Veronica Esquivel V - Last Filed: 05/13/17 13:00> Subjective: Erika is seen this morning in follow up while resting in bed. She is pale and weak in appearance. She is currently receiving a blood transfusion for autoimmune hemolytic anemia. She is noted to have swelling to all extremities. She has had swelling/lymphedema in bilateral lower extremity is however upper extremities appear to be more swollen today. Left forearm is weeping and painful on examination. She is noted to be up 2 KG since yesterday. Otherwise she denies pain and reports general weakness and fatigue. Hemoglobin this morning 5.3. Objective Vital signs: Temperature 97.8 F 05/13/17 08:00 Pulse Rate 83 05/13/17 08:00 Respiratory Rate 20 05/13/17 08:00 Blood Pressure 169/81 H 05/13/17 08:00 Pulse Oximetry 99 05/13/17 08:00 Oxygen Delivery Method Nasal Cannula Oxygen Flow Rate 3 Weight: 51 kg - Constitutional Present: well nourished, well developed - Routine HEENT Exam Eye: Present: EOMI ENT: Present: mucous membranes moist, dentition normal - Routine Respiratory Exam Present: CTA bilaterally. Absent: wheezes - Routine Cardiovascular Exam Present: RRR, S1, S2, no murmur. Absent: murmur - Routine Abdominal Exam Present: soft, normoactive bowel sounds, non distended. Absent: tenderness - Routine Extremities Exam Present: normal capillary refill - Routine Skin Exam Present: dry, warm - Routine Neurological Exam Present: alert, oriented X3, CN II-XII intact - Routine Lymphatic Exam Lymphatic: Absent: adenopathy - Routine Psychiatric Exam Present: normal affect Results - Labs CBC & Chem 7: 05/13/17 04:57 05/13/17 04:58 Microbiology Results: Microbiology 05/12/17 18:06 Peripheral/Iv Start Blood Culture - Preliminary Culture Initiated - Results Pending 05/12/17 17:36 Peripheral/Iv Start Blood Culture - Preliminary Culture Initiated - Results Pending Assessment and Plan (1) 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 Current visit: No Status: Acute 05/12/17 15:19 Splenic marginal zone B cell lymphoma s/p splnectomy in 2008. Stage IV disease with liver and bone marrow involvement. Residual disease present in 02/2014. flow positive for monoclonal B cell neoplasm compatible with original diagnosis. 0.2gm M-spike that is an IgM lambda monoclonal protein at diagnosis that has resolved. Associated with auto immune hemolytic anemia. CT scan shows dramatic response. 2 years of maintenance Rituxan every 2 months from May 2014 to March 2016. Hospitalization for hemolytic anemia 02/26/2017 with swollen left leg and CT showing recurrence. Rituxan was administered weakly for 4 weeks with some improvement. 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 Hemoglobin this morning 5.3 All oncology orders are being managed by Dr. Hurst/Dr Weir -Oxygen dependence secondary to pulmonary fibrosis and COPD. .Patient uses continuous home oxygen at 3L. Continue oxygen and monitor saturations closely. -Hypertension and CAD. .Continue home medications and monitor blood pressure closely. -CHF- Reviewed ECHO from 04/27. Concern with increasing extremity swelling, lymphedema with weeping. Did ask nursing staff to elevate bilateral upper extremities and Place DILLON hose to bilateral lower extremities -GERD- Continue Protonix for GI protection and GERD. She does continue on vancomycin and Levaquin for coverage of questionable urinary tract infection, sepsis on admission. Preliminary Blood cultures remain negative. Will discuss further antimicrobial coverage with attending, Dr. Peng Recheck CBC and BMP tomorrow morning to follow blood counts, renal function and electrolytes Overall status is concerning. Awaiting for further evaluation by the oncology team. Patient's daughter does indicate she is waiting to talk to oncology about further treatment options. Sepsis Assessment - Evaluation Sepsis screening result: No Definite Risk Hospital Course Summary Disclaimer: The visit summary below is not to be considered part of the above Progress Note. Hospital Course: 05/12/17 -Hemolytic anemia and splenic marginal zone B cell lymphoma: .Admit to inpatient status under the care of Dr. Peng. .Consult Dr. Ramirez for oncology expertise. Appreciate his time and expertise. .Per Dr. Ramirez, obtain type and cross x 2 units. Patient has associated cold agglutinin and anti-Boone antibodies present and poses a high risk of transfusion reaction. Transfusion and treatment of anemia orders per Dr. Ramirez. Anticipate Neupogen per Dr. Ramirez. .Monitor patient closely on telemetry. .SCDs for DVT prophylaxis. .Macrocytic anemia with hemoglobin on admission at 5.4 with thrombocytopenia (Plt 87). .Elevated BUN and SCr noted on admission at 54 and 1.4 respectively. SCr increased from 1.1 on 05/05. Initiate NS at 100cc/hr for hydration. .In light of increased somnolence and lethargy and recent UTI, will obtain straight cath UA as patient is incontinent. .In light of increased respiratory effort and crackles, will obtain CXR. .Ativan as needed for anxiety. .Will resume home medications once reconciled by nursing staff. -Oxygen dependence secondary to pulmonary fibrosis and COPD. .Patient uses continuous home oxygen at 3L. Continue oxygen and monitor saturations closely. -Hypertension and CAD. .Continue home medications and monitor blood pressure closely. -CHF. -Echo on 04/27 revealed normal LV systolic function with EF 69%, ,mild mitral regurg, bioprostethic aortic valve, mild to moderate tricuspid regurg with severe pulmonary hypertension with estimated pulmonary artery systolic pressure of 85. -Monitor daily weight and for signs of fluid overload. -GERD .History of GI bleed. Protonix for GI protection and GERD. Discussed advanced directives with pateint and daughter. She does not want heroic measures done. This was present prior to hospitalization. Patient wishes to be DNR. Upon discharge, patient's care will be returned to her PCP, Dr. Muro. 05/13/17 -Hemolytic anemia and splenic marginal zone B cell lymphoma: She is receiving a blood transfusion. Hemoglobin this morning 5.3 All oncology orders are being managed by Dr. Hurst/Dr Weir -Oxygen dependence secondary to pulmonary fibrosis and COPD. .Patient uses continuous home oxygen at 3L. Continue oxygen and monitor saturations closely. -Hypertension and CAD. .Continue home medications and monitor blood pressure closely. -CHF- Reviewed ECHO from 04/27. Concern with increasing extremity swelling, lymphedema with weeping. Did ask nursing staff to elevate bilateral upper extremities and Place DILLON hose to bilateral lower extremities -GERD- Continue Protonix for GI protection and GERD. She does continue on vancomycin and Levaquin for coverage of questionable urinary tract infection, sepsis on admission. Preliminary Blood cultures remain negative. Will discuss further antimicrobial coverage with attending, Dr. Peng Recheck CBC and BMP tomorrow morning to follow blood counts, renal function and electrolytes Overall status is concerning. Awaiting for further evaluation by the oncology team. Patient's daughter does indicate she is waiting to talk to oncology about further treatment options. <Barb Peng - Last Filed: 05/13/17 17:11> Objective Vital signs: Temperature 97.4 F 05/13/17 16:00 Pulse Rate 82 05/13/17 16:08 Respiratory Rate 20 05/13/17 16:00 Blood Pressure 143/77 H 05/13/17 16:00 Pulse Oximetry 100 05/13/17 16:00 Oxygen Delivery Method Nasal Cannula Oxygen Flow Rate 3 Results - Labs CBC & Chem 7: 05/13/17 04:57 05/13/17 04:58 Microbiology Results: Microbiology 05/12/17 18:06 Peripheral/Iv Start Blood Culture - Preliminary Culture Initiated - Results Pending 05/12/17 17:36 Peripheral/Iv Start Blood Culture - Preliminary Culture Initiated - Results Pending Assessment and Plan (1) 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 Current visit: No Status: Acute (2) CAD (coronary artery disease) Current visit: No Status: Chronic (3) Pulmonary fibrosis Current visit: No Status: Chronic (4) Oxygen dependent Current visit: No Status: Chronic (5) HTN (hypertension) Current visit: No Status: Chronic (6) COPD (chronic obstructive pulmonary disease) Current visit: No Status: Chronic (7) GERD (gastroesophageal reflux disease) Current visit: No Status: Chronic (8) Hypothyroidism Current visit: No Status: Chronic (9) Osteoarthritis Current visit: No Status: Chronic (10) 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 We discussed and formulated the assessment and plan as above with the additions below. I've seen and examined the patient independently. The patient was seen this afternoon accompanied by her daughter. Patient states she feels a little bit better. Her abdomen isn't hurting today. Her appetite is been poor and she has been eating and drinking very little. She feels very weak. She is occasionally feeling short of breath but not now. Her daughter states that she has declined significantly since she was here last week. She is much weaker and more lethargic. On exam the patient is very drowsy but arouses to answer questions. She think she is in [place] and that the season is fall. She does know she is in the hospital. Chest reveals crackles from pulmonary fibrosis. Cardiovascular reveals a regular rate and rhythm. Abdomen is mildly tender with positive bowel sounds. Extremities reveal pitting edema in all 4 extremities with weeping of the left upper extremity. Lab work was reviewed. The patient did get 1 unit of blood today. The patient's daughter did ring up her concerns that her mother has declined significantly and did not improve after chemotherapy as they had hoped. She wants to consider comfort care and would like to discuss this with Dr. Weir. I did call Dr. Weir this afternoon and he will be seeing the patient later today and will discuss options with the patient and her daughter at that time. The patient will be given a one-time dose of Lasix for edema. IV fluids were discontinued. The patient is on empiric antibiotics due to immunocompromised status, rise in white count from 2 up to 9 yesterday and secondary to shaking chills yesterday. Urinalysis does not show signs of infection. Chest x-ray is stable without signs of pneumonia. Blood cultures are negative so far. Consider de-escalating antibiotics tomorrow if blood cultures are still negative, or sooner if family decides for comfort care. - Time spent with patient greater than 35 minutes Hospital Course Summary Disclaimer: The visit summary below is not to be considered part of the above Progress Note.
--- NOTE | 2017-05-13 13:40 | Pharmacy Consult- Renal Dosing ---
[facility]-Renal Dosing - Laboratory Information 05/12/17 05/13/17 12:25 04:58 BUN 54.0 H* 43.0 H Creatinine 1.4 H 1.1 D RENAL DOSING: Today's SCr = 1.1 mg/dl. Calculated CrCl = 28 ml/min. The original order was Levaquin 750 mg iv every 24 hours. The patient's renal function is low @ 28 mL/min. Per the Pharmacy Renal Monitoring and Adjustment Program, I have changed the Levaquin to 750 mg iv every 48 hours. The Pharmacy will continue to monitor the renal function and adjust the Levaquin accordingly. Thanks, Gonzalo Moss, Pharmacist.
[2017-05-13 13:59] VITALS: BMI 21.9
[2017-05-13] MEDS ORDERED: FUROSEMIDE 20 MG/2 ML INJECTION IVP ONE (16:00)
--- NOTE | 2017-05-13 19:36 | Progress Note ---
Oncology Subjective Resting in bed receiving blood transfusion. She is very tired. She said chemotherapy was a rough and did not like it. She is not sure if she will continue. Her daughter at the bedside considering hospice. Exam Vital signs: Temperature 97.4 F 05/13/17 16:00 Pulse Rate 82 05/13/17 16:08 Respiratory Rate 20 05/13/17 16:00 Blood Pressure 143/77 H 05/13/17 16:00 Pulse Oximetry 100 05/13/17 16:00 Oxygen Delivery Method Nasal Cannula Oxygen Flow Rate 3 - Constitutional no acute distress - Routine Respiratory Exam Present: rales. Absent: respiratory distress - Routine Cardiovascular Exam Present: RRR Oncology Results - Labs CBC & Chem 7: 05/13/17 04:57 05/13/17 04:58 Labs: Short CBC 05/13/17 Range/Units 04:57 WBC 6.4 (4.5-11.0) T/MM3 Hgb 5.3 L* (12-16) GM/DL Hct 17.3 L* (36-46) % Plt Count 66 L (130-400) T/MM3 [facility] 05/13/17 04:58 Sodium 143 Potassium 4.2 Chloride 107 Carbon Dioxide 34 H BUN 43.0 H Creatinine 1.1 D Glucose 71 Calcium 9.1 Assessment and Plan Assessment and Plan: 1. Non-Hodgkin's lymphoma/splenic marginal zone B-cell lymphoma, with recurrent disease. Recenlty received cycle 1 Cytoxan as in-patient,tolerated well. 2. 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 Receiving blood today. 3. Mutliple comorbidities, including CRF, CHF/valvular disease, and COPD Plan Family considering hospice. They're planning to meet with Dr. Ramirez in the morning to discuss the option of hospice. - Time Spent With Patient Total time spent is greater than 50% in coordination of care (as documented) at patient's floor/unit and/or counseling patient: less than 15 minutes Sepsis Assessment - Evaluation Sepsis screening result: No Definite Risk
[2017-05-14] MEDS: MORPHINE SULFATE 2 MG SYRINGE IVP PRN ×3 (02:54→17:12)
[2017-05-14] MEDS: NS 1,000 ML IV SCH ×2 (03:16→13:04)
--- NOTE | 2017-05-14 11:36 | Progress Note ---
Oncology Subjective Reclining in hospital bed, daughter at bedside. Patient is more alert today. Eyes open, answers questions appropriately, smiles. States feeling better today. General: No fever, no night sweats decreased appetite Eyes: No redness, no pain, no diplopia ENT: No mouth sores, no trouble swallowing Cardiac: No chest pain no palpitations Pulmonary: No cough, no shortness of breath, no wheezing Abdomen: No pain, no nausea vomiting, no diarrhea or constipation : No urgency, frequency, dysuria, or hematuria Musculoskeletal: Generalized weakness Neurological: No headaches, no focal weakness Skin: Positive itching intermittently . No rash, no sores Psychiatric: No anxiety <Shira Franco L - 05/14/17 15:09> Exam Vital signs: Temperature 98.6 F 05/14/17 07:37 Pulse Rate 78 05/14/17 16:00 Respiratory Rate 16 05/14/17 07:37 Blood Pressure 168/80 H 05/14/17 07:37 Pulse Oximetry 99 05/14/17 07:37 Oxygen Delivery Method Nasal Cannula Oxygen Flow Rate 3 <Jose Francisco Ramirez D - 05/14/17 16:58> Temperature 98.6 F 05/14/17 07:37 Pulse Rate 71 05/14/17 07:37 Respiratory Rate 16 05/14/17 07:37 Blood Pressure 168/80 H 05/14/17 07:37 Pulse Oximetry 99 05/14/17 07:37 Oxygen Delivery Method Nasal Cannula Oxygen Flow Rate 3 <Shira Franco L - 05/14/17 15:09> - Constitutional no acute distress, well developed <SalvadorShira caldera 05/14/17 15:09> - Routine HEENT Exam Head: Present: normocephalic. Absent: facial swelling <SalvadorZofiaShira Cece 05/14 15:09> Eye: Present: EOMI <Zofia Francoela Cece 05/14/17 15:09> ENT: Present: mucous membranes dry <Shira Franco 05/14/17 15:09> - Routine Respiratory Exam Present: decreased breath sounds, crackles (crackles bibasilar). Absent: accessory muscle use, wheezes <Shira Franco 05/14/17 15:09> - Routine Cardiovascular Exam Present: RRR. Absent: no murmur <Shira Franco - 05/14/17 15:09> - Routine Abdominal Exam Present: soft. Absent: tenderness, non distended, mass <Shira Franco 15:09> - Routine Extremities Exam Present: edema (edema bilateral upper extremities and hands, 1+2+ pedal edema bilateral lower extremities) <Shira Franco 05/14/17 15:09> - Routine Back/Spine/Pelvis Exam Back/Spine: Absent: vertebral tenderness <Shira Franco - 05/14/17 15:09> - Routine Skin Exam Present: intact, dry, pallor, warm. Absent: rash <Shira rFanco 05/14/17 15:09> - Routine Neurological Exam Present: alert, oriented X3, normal speech <Shira Franco - 05/14/17 15:09> - Routine Psychiatric Exam Present: normal affect. Absent: anxious <Shira Franco 05/14/17 15:09> Oncology Results - Labs CBC & Chem 7: 05/13/17 21:31 05/14/17 05:02 <Jose Francisco Ramirez - 05/14/17 16:58> Labs: Short CBC 05/13/17 Range/Units 21:31 Hgb 9.3 L D (12-16) [facility] 05/14/17 05:02 Creatinine 1.0 <Jose Francisco Ramirez - 05/14/17 16:58> Short CBC 05/13/17 Range/Units 21:31 Hgb 9.3 L D (12-16) GM/[facility] 05/14/17 05:02 Creatinine 1.0 <Shira Franco Cece - 05/14/17 11:35> Assessment and Plan Assessment and Plan: Patient examined, chart reviewed, agree with documentation by Zofia Franco. I participated the development of plan of care with patient. Discussed care with patient, 2 daughters and grandson. Discussed options of continuing chemotherapy versus comfort measures. Patient stated that she was very tired and she was ready to do things for comfort. This can best be accomplished by using the hospice residential unit in [place]. Will make arrangements for transfer. Discussed with Dr. Miller Laboratory Tests 04/30/17 04/30/17 05/01/17 04:38 04:38 05:00 WBC 29.3 H* Hgb Plt Count 111 L Creatinine Uric Acid Calcium Total Bilirubin 2.00 H Lactate Dehydrogenase 1408 H B-Natriuretic Peptide 8690 H 05/01/17 05/02/17 05/03/17 05:00 05:12 04:17 WBC Cancelled Hgb Plt Count Cancelled Creatinine 1.1 Uric Acid Calcium 9.2 Total Bilirubin 0.90 Lactate Dehydrogenase 1284 H B-Natriuretic Peptide 05/03/17 05/03/17 05/12/17 04:17 04:17 13:21 WBC 16.3 H 9.6 Hgb 5.7 L* 5.4 L* Plt Count 75 L 87 L Creatinine Uric Acid 6.8 Calcium Total Bilirubin Lactate Dehydrogenase B-Natriuretic Peptide 05/13/17 05/13/17 05/13/17 04:54 04:57 04:58 WBC 6.4 Hgb Plt Count 66 L Creatinine 1.1 D Uric Acid Calcium Total Bilirubin Lactate Dehydrogenase 1431 H B-Natriuretic Peptide effler. <Jose Francisco Ramirez - 05/14/17 16:58> 1. Non-Hodgkin's lymphoma/splenic marginal zone B-cell lymphoma, with recurrent disease. Recenlty received cycle 1 Cytoxan as in-patient,tolerated well. 2. 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 Hemoglobin yesterday pretransfusion 5.4. Hemoglobin today, status post 1 unit PRBCs improved at 9.4 3. Mutliple comorbidities, including CRF, CHF/valvular disease, and COPD Plan Continue supportive care. Planning return to [facility] in [place]. Patient/daughter strongly considering comfort care only. Waiting to discuss with Dr. Ramirez <Shira Franco - 05/14/17 15:09> - Time Spent With Patient Total time spent is greater than 50% in coordination of care (as documented) at patient's floor/unit and/or counseling patient: <Jose Francisco Ramirez - 05/14/17 16:58> Total time spent is greater than 50% in coordination of care (as documented) at patient's floor/unit and/or counseling patient: <Shira Franco - 05/14/17 11:35> 25 - 35 minutes <Shira Franco - 05/14/17 15:09> Sepsis Assessment - Evaluation Sepsis screening result: No Definite Risk <Shira Franco - 05/14/17 11:35>
[2017-05-14 17:12] VITALS: BP 167/67; PULSE 68; RESP 17; TEMP 97.6; O2SAT 97
--- NOTE | 2017-05-14 17:21 | Discharge Instructions ---
Discharge Plan - Med Rec/Dispo Referrals/Follow Up: Sony Muro MD [Family Provider] - Prescriptions: New Hydrocortisone 1% Cream [Cortizone-10 Cream] 1 applic TOP BID PRN #1 tube PRN Reason: Itching Morphine Sulfate Oral Liq [Roxanol Oral Liq] 5 - 10 mg PO/SL Q2H PRN #30 ml PRN Reason: Pain Continue Pantoprazole Sodium [Protonix] 40 mg PO BID #0 Menthol [Biofreeze] 1 applic TP PRN PRN #0 PRN Reason: MUSCLE PAIN HydrOXYzine [Atarax] 25 mg PO QID PRN #0 PRN Reason: ALLERY SYMPTOMS Mag-Al + Sim Oral Liq [Maalox Plus] 30 ml PO Q3H PRN udc PRN Reason: Indigestion Melatonin 3 mg PO HS tablet PEG 3350 17gm PACKET [Miralax] 17 gm PO BID packet Ondansetron HCl [Zofran] 8 mg PO Q8H PRN PRN Reason: Nausea Acetaminophen [Tylenol] 1 - 2 tab PO Q4HR PRN #0 PRN Reason: PAIN Senna + Docusate [Senna Plus Tablet] 2 tab PO BID tablet LORazepam [Ativan] 0.5 - 1 mg PO Q4H PRN #15 tablet PRN Reason: ANXIETY/RESTLESSNESS Changed DiphenhydrAMINE [Benadryl] 25 mg PO Q6H PRN #0 PRN Reason: Itching Discontinued Allopurinol [Zyloprim] 100 mg PO DAILY tablet Folic Acid [Folate] 1 mg PO DAILY tablet Hydrocortisone 1 applic TOP BID lotion Hydrocodone/APAP 5/325 [Griffith 5/325] 1 tab PO BID Budesonide 0.5 mg IH BID Budesonide 0.25 mg IH BID Multivitamin [One Daily Multivitamin] 1 each PO DAILY Arformoterol Neb [Brovana Neb] 15 mcg AEROSOL BID #0 vial Hyoscyamine Sulfate [Levsin-Sl] 0.125 mg SL Q4H PRN #0 PRN Reason: SECRETIONS Dexamethasone 2 mg PO DAILY Hydrocodone/APAP 5/325 [Griffith 5/325] 1 tab PO Q4H PRN #15 tablet PRN Reason: Pain Metoclopramide [Reglan] 5 mg PO DAILY tablet Ondansetron HCl [Zofran] 8 mg PO Q6H LORazepam [Lorazepam] 1 tab PO BID Discharge Instructions/Outpatient Orders: Final Provider Discharge Instructions Location: Determined By Patient - Disposition 50 Discharged To Hospice-Home
--- NOTE | 2017-05-14 17:33 | Extended Care Facility Orders ---
Admission Orders Admit to:: Hospice Allergies/Adverse Reactions: Allergies cefuroxime Allergy (Mild, Verified 02/26/17 16:17) GI upset Cephalosporins Allergy (Unknown, Verified 02/26/17 16:17) rash fentanyl Allergy (Unknown, Verified 02/26/17 16:17) rash Admitting Diagnosis: Hemolytic Anemia/Lymphoma Admitting Physician: Kristina Medina MD Attending Physician: Kristina Medina MD Code Status: Do Not Resuscitate Rehab Potential: poor Rehab Prognosis: poor Diet: 05/12/17 Lunch Regular Diet [DIET] Diet Modifications: May use Facility Protocol or Standing Orders: Yes May have flu vaccine: Yes Long-Term Certification: I certify that SNF services are required to be given on an Inpatient basis because of the patients need for fpc care on a continuing basis for the condition(s) for which he/she received inpatient hospital services prior to his/her transfer to the SNF. SNF inpatient care is necessary for the following reasons Indication for Long-Term: Not Applicable - Additional Information In Event of Arrest: Do Not Start CPR Resident is Aware of Diagnosis: Yes Referrals: Sony Muro MD [Family Provider] - Additional Orders: per hospice protocol
[2017-05-14] MEDS ORDERED: PANTOPRAZOLE 40 MG TABLET PO SCH (20:00)
[2017-05-14] MEDS ORDERED: SENNA + DOCUSATE TABLET PO SCH (21:00)
[2017-05-14] MEDS ORDERED: LORazepam 1 MG TABLET PO SCH (21:00)
[2017-05-14] MEDS ORDERED: POLYETHYL GLYCOL 3350 17gm PACKET PO SCH (21:00)
[2017-05-14] MEDS ORDERED: LEVOFLOXACIN PB 750 MG/150 ML BAG IV SCH (22:00)
[2017-05-14] MEDS ORDERED: MELATONIN 1 MG TABLET PO SCH (22:00)
--- NOTE | 2017-05-14 22:09 | Discharge Summary ---
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 transplanted heart: [place] heart Associated angina: without angina Qualified Code(s): I25.10 - Atherosclerotic heart disease of [place] coronary artery without angina pectoris Status: Chronic (4) Pulmonary fibrosis Status: Chronic (5) HTN (hypertension) Qualifiers: Hypertension type: essential hypertension Qualified Code(s): I10 - Essential (primary) hypertension Status: Chronic (6) COPD (chronic obstructive pulmonary disease) Qualifiers: COPD type: emphysema Emphysema type: unspecified Qualified Code(s): J43.9 - Emphysema, unspecified Status: Chronic (7) GERD (gastroesophageal reflux disease) Qualifiers: Esophagitis presence: esophagitis presence not specified Qualified Code(s) : K21.9 - Gastro-esophageal reflux disease without esophagitis Status: Chronic (8) Hypothyroidism Qualifiers: Hypothyroidism type: acquired Qualified Code(s): E03.9 - Hypothyroidism, unspecified Status: Chronic (9) Osteoarthritis Qualifiers: Osteoarthritis type: primary Laterality: bilateral Status: Chronic (10) Dementia Qualifiers: Dementia type: unspecified type Dementia behavioral disturbance: without behavioral disturbance Qualified Code(s): F03.90 - Unspecified dementia without behavioral disturbance Status: Acute - Laboratory Labs: Hemoglobin on admission 5.4 05/13/17 21:31 05/14/17 05:02 LDH on 05/13-1431 - Microbiology Microbiology 05/12/17 18:06 Peripheral/Iv Start Blood Culture - Preliminary No Growth After 2 Days 05/12/17 17:36 Peripheral/Iv Start Blood Culture - Preliminary No Growth After 2 Days - Radiology Radiology: Chest x-ray on 05/12/17 demonstrated hyperinflation of the lung fletcher with emphysema. Right lower lobe infiltrate was present and unchanged from film 7 days earlier. History of Present Illness HPI: Erika Duque is a pleasant 86-year-old female who is currently under the treatment of Dr. 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 She has been treated multiple times in the past with single agent Rituximab with tlast treatment given in March 2017. On 04/24/17 she was admitted to [facility] [place] evaluation of left breast swelling, ecchymosis and mass as well as increasing back pain, bruising and feeling cold. She underwent biopsy of her left breast and arm which was negative for malignancy. During her hospitalization, she was noted to be anemic with hemoglobin dropping to 5.7 and improved to 6.3 prior to discharge on 05/05. During her hospitalization, she was also treated for a UTI with levaquin. During her hospitalization, patient and family opted to undergo cyclophosphamide 500mg/m2 as an inpatient which she appeared to tolerate well. She was discharged on 05/06 to [facility]. Family reports that since her discharge, she has appeared more lethargic and they express concerns it is secondary to the recent chemotherapy. Today, 05/12 underwent routine blood work at [facility] and family was notified of the results which showed a hemoglobin of 5.3. She was accpeted as a direct admission to inpatient under the care of the hospitalist service and Dr. Ramirez was consulted. 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 She also does have a history of GI bleeding in the past and notes that her stools are black intermittently. She is noted to be on oxygen by nasal cannula, which is chronic given her pulmonary fibrosis. Did review advanced directives in depth with patient and family at the bedside. They verbalized at this point, they want everything done for patient, however, are considering do not resuscitate in the near future. On exam, she is seen resting in bed with her eldest daughter, Alla, at the bedside. She is alert but appears somnolent and family states she has been "lethargic". She complains of aching all over but denies any chest pain, increased shortness of breath, abdominal pain, nausea, vomiting or dysuria. Family states that her appetite has been poor but she is drinking water well. No known fevers or chills. Labs upon arrival were obtained and reveal WBC 9.6, anemia with hemoglobin 5.4, thrombocytopenia with platelets at 87. Sodium 144, potassium 4.4, BUN elevated at 54, SCr elevated at 1.4 and glucose 196. Renal function elevated as compared to discharge labs on 05/05 which showed BUN 60 and SCr 1.1. Cardiac exam revealed irregular rhythm with 2/6 murmur noted. Lung sounds are diminished bilaterally with crackles noted. Mild respiratory distress noted with tachypnea. No retractions, audible wheezing or stridor. Ecchymosis improving to left breast with persistent induration present secondary to hematoma. Abdomen soft, nontender with active bowel sounds. 1+ edema noted to left hand. Ultrasound druing prior admission was negative for DVT. 3-4+ pitting edema noted to bilateral lower extremities with 2+ pedal pulses bilaterally. 2+ radial pulses bilaterally. SCDs in place. Limited history and exam due to patient's dementia. Hospital Course This is a general summary of the patient's hospital course. For more details refer to the complete medical record. Hospital course: Mrs. Duque was admitted with severe anemia and lethargy. Patient has known autoimmune hemolytic anemia in association with which was recently treated with single dose Cytoxan. Transfusion had been avoided previously due to presence of autoantibodies. Due to progressive drop in hemoglobin Dr. Ramirez was consulted and elected to proceed with transfusion of 2 units of packed red blood cells with compatible blood when available. The patient was transfused uneventfully with posttransfusion hemoglobin of 9.3. Clinically the patient remained lethargic with poor appetite. Following further consultation with Dr. Ramirez family elected to convert to hospice care and discharge to [facility] in [place] was coordinated by case management. Transfer was arranged for late the day on 05/14. Chronic medical problems were stable during acute hospitalization. The patient was treated with antibiotics for possible urinary tract infection during the hospitalization although UA had only 1-3 white cell present on admission. Antibiotics were discontinued at discharge. DO NOT RESUSCITATE order was initiated shortly after hospitalization and remains in place at discharge. >30 minutes spent on patient care and discharge care coordination today on the date of discharge. -- Discharge Plan - Med Rec/Dispo Referrals/Follow Up: Sony Muro MD [Family Provider] - Prescriptions: New Hydrocortisone 1% Cream [Cortizone-10 Cream] 1 applic TOP BID PRN #1 tube PRN Reason: Itching Morphine Sulfate Oral Liq [Roxanol Oral Liq] 5 - 10 mg PO/SL Q2H PRN #30 ml PRN Reason: Pain Continue Pantoprazole Sodium [Protonix] 40 mg PO BID #0 Menthol [Biofreeze] 1 applic TP PRN PRN #0 PRN Reason: MUSCLE PAIN HydrOXYzine [Atarax] 25 mg PO QID PRN #0 PRN Reason: ALLERY SYMPTOMS Mag-Al + Sim Oral Liq [Maalox Plus] 30 ml PO Q3H PRN udc PRN Reason: Indigestion Melatonin 3 mg PO HS tablet PEG 3350 17gm PACKET [Miralax] 17 gm PO BID packet Ondansetron HCl [Zofran] 8 mg PO Q8H PRN PRN Reason: Nausea Acetaminophen [Tylenol] 1 - 2 tab PO Q4HR PRN #0 PRN Reason: PAIN Senna + Docusate [Senna Plus Tablet] 2 tab PO BID tablet LORazepam [Ativan] 0.5 - 1 mg PO Q4H PRN #15 tablet PRN Reason: ANXIETY/RESTLESSNESS Changed DiphenhydrAMINE [Benadryl] 25 mg PO Q6H PRN #0 PRN Reason: Itching Discontinued Allopurinol [Zyloprim] 100 mg PO DAILY tablet Folic Acid [Folate] 1 mg PO DAILY tablet Hydrocortisone 1 applic TOP BID lotion Hydrocodone/APAP 5/325 [[place] 5/325] 1 tab PO BID Budesonide 0.5 mg IH BID Budesonide 0.25 mg IH BID Multivitamin [One Daily Multivitamin] 1 each PO DAILY Arformoterol Neb [Brovana Neb] 15 mcg AEROSOL BID #0 vial Hyoscyamine Sulfate [Levsin-Sl] 0.125 mg SL Q4H PRN #0 PRN Reason: SECRETIONS Dexamethasone 2 mg PO DAILY Hydrocodone/APAP 5/325 [[place] 5/325] 1 tab PO Q4H PRN #15 tablet PRN Reason: Pain Metoclopramide [Reglan] 5 mg PO DAILY tablet Ondansetron HCl [Zofran] 8 mg PO Q6H LORazepam [Lorazepam] 1 tab PO BID Discharge Instructions/Outpatient Orders: Final Provider Discharge Instructions Location: Determined By Patient - Disposition 50 Discharged To Hospice-Home
== END 2017-05-14 18:56 | disposition hospice, inpatient (51) | DRG 809 ==
LOC: MED
PROVIDERS: ADMIT Internal Medicine; ATTEND Internal Medicine